=== PATIENT | female | born 1950 | race African-American/Black ===

== ENCOUNTER 2022-06-07 15:34 | Emergency (ER) | payer OTHER ==
--- OUTSIDE RECORDS SUMMARY | 2022-06-07 15:46 | XMS REPORT | Continuity of Care Document ---
:1950 Author Organization [facility] t Address [address] [place] [address] Care Team Providers Name Role Phone TREY RAHMAN Primary Care Physician Unavailable Keshia Chaves Attending Clinician Unavailable SHERICE RODRIGUEZ Attending Clinician Unavailable LAURA MUSTAFA Attending Clinician Unavailable DONG ANTONIO Attending Clinician Unavailable AALIYAH ROGERS Attending Clinician Unavailable LANDRY BENEDICT Attending Clinician Unavailable JAMES MEI Attending Clinician Unavailable Rohit Freitas MA Attending Clinician Unavailable Saravanan HOSKINS, Rafy Piña Attending Clinician [phone] Elena Gregg MA Attending Clinician Unavailable Ghazal De Jesus MD Attending Clinician [phone] Danita Sousa MD Attending Clinician Doctor Unassigned, [place] Attending Clinician Unavailable Dwain Chang MA Attending Clinician Unavailable Aster HOSKINS, Trey Attending Clinician Olvier Méndez MD Attending Clinician Liv HOSKINS, Patria Attending Clinician [phone] Monty Bender Attending Clinician TERRANCE SPENCER Attending Clinician Unavailable Terrance Spencer DO Attending Clinician Yulia HOSKINS, Monty Cerrato Attending Clinician Sergio Boone MD Attending Clinician Noemi Miller MA Attending Clinician Unavailable Lacey HATHAWAY, Trey Attending Clinician VALENTE DIEGO Attending Clinician Unavailable Gladys Henderson MA Attending Clinician Unavailable ISAEL MERA Attending Clinician Unavailable Bee Patton MA Attending Clinician Unavailable Evy Clements Attending Clinician Unavailable JERE_KATHY_NIA Attending Clinician Unavailable TREY RAHMAN Attending Clinician Unavailable Minerva Terry MA Attending Clinician Unavailable Valente Diego DO Attending Clinician Nigel HOSKINS Sendchely K.H. Attending Clinician Sherice Rodriguez MD Attending Clinician Ambrocio Nunez CRNA Attending Clinician Only, [facility] Test Attending Clinician Unavailable Gramm PAPER SLITTER Marley A Attending Clinician Unavailable MONTY BENDER Attending Clinician Unavailable SUDHIR LANE Attending Clinician Unavailable SUDHIR LANE Attending Clinician Unavailable Outpatient, Pm/Icd Check Attending Clinician Unavailable JOHN JENNINGS Attending Clinician Unavailable Lab, Ang - Db Attending Clinician Unavailable NIGEL SENDCHELY K.H. Attending Clinician Unavailable 2, [facility] Lab Attending Clinician Unavailable Dong Antonio MD Attending Clinician Isael Mera MD Attending Clinician Sudhir Lane MD Attending Clinician Maura Roach MA Attending Clinician Unavailable Shi Poretr MA Attending Clinician Unavailable Lab, Adc Fam Pob I Attending Clinician Unavailable ARTEMIO HAYNES Attending Clinician Unavailable NITHYA AYON Attending Clinician Unavailable TOR MARTINES Attending Clinician Unavailable MARIELA CONSTANTINO Attending Clinician Unavailable Elicia Clements LMSW Attending Clinician SOUTH, DEVICE Attending Clinician Unavailable [facility] Attending Clinician Unavailable Nithya Macias Attending Clinician HEMATLANDRY CASEY Attending Clinician Unavailable AALIYAH ROGERS M.D. Attending Clinician Unavailable JOSE MURO Attending Clinician Unavailable SE, VENOUS Attending Clinician Unavailable SUSHANT VAUGHN M.D. Attending Clinician Unavailable AMBRAMILA Attending Clinician Unavailable JOSY MANZANARES M.D. Attending Clinician Unavailable SE, ECHO Attending Clinician Unavailable SE, NUCLEAR Attending Clinician Unavailable Therapist, Adc Occup Attending Clinician Unavailable SERGIO BOONE Attending Clinician Unavailable Tamanna Kern OT Attending Clinician Unavailable SALLIE BECK M.D. Attending Clinician Unavailable SHERICE RODRIGUEZ Admitting Clinician Unavailable DONG ANTONIO Admitting Clinician Unavailable TERRANCE SPENCER Admitting Clinician Unavailable MD MONTY BENDER Admitting Clinician Unavailable JERE_KATHY_NIA Admitting Clinician Unavailable Sherice Rodriguez MD Admitting Clinician MONTY BENDER Admitting Clinician Unavailable THOMAS MANNING Admitting Clinician Unavailable Dong Antonio MD Admitting Clinician JOSE MURO Admitting Clinician Unavailable STORMY Admitting Clinician Unavailable Payers Payer Name Policy Type Policy Number Effective Date Expiration Date S ource [facility] [id number] 2020 2020 STARPLUS OON 00:00:00 00:00:00 EXCEPT [facility] [id number] 2021 HMO 00:00:00 [facility] [place] STAR [id number] 2020 PLUS 00:00:00 [facility] WELLMED [id number] 2022 00:00:00 [facility] [id number] 2020 DUAL COMPLETE 00:00:00 CHOICE [place]ICA[place] [id number] 2014 00:00:00 MEDICARE PART A [id number] 2013 \\T\\ B 00:00:00 Problems Condition Condition Condition Status Onset Resolution Last Treating Co mments Source Name Details Category Date Date Treatment Clinician Date Chronic Chronic Disease Active Methodi musculoske musculoske 09-08 letal pain letal pain 00:00: Ho spita 00 l JUAREZ (acute JUAREZ (acute Disease Active M ethodi kidney kidney 09-08 injury) injury) 00:00: Hospita 00 l Bilateral Bilateral Disease Active Met hodi foot pain foot pain 09-08 00:00: Hospita 00 l Fracture Fracture Disease Active Metho di of left of left 09-08 inferior inferior 00:00: Hospit a pubic pubic 00 l ramus with ramus with routine routine healing healing Gait Gait Disease Active Methodi disturbanc disturbanc 09-08 e e 00:00: Hospita 00 l Gastritis Gastritis Disease Active Met hodi with with 09-08 hemorrhage hemorrhage 00:00: Ho spita 00 l Hepatitis Hepatitis Disease Active Met hodi C antibody C antibody 09-08 test test 00:00: Hospita positive positive 00 l Intertrigo Intertrigo Disease Active M ethodi 09-08 00:00: Hospita 00 l Left leg Left leg Disease Active Metho di pain pain 09-08 00:00: Hospita 00 l Osteoarthr Osteoarthr Disease Active M ethodi itis of itis of 09-08 both knees both knees 00:00: Ho spita 00 l Palpitatio Palpitatio Disease Active M ethodi ns ns 09-08 00:00: Hospita 00 l 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 09-08 00:00: Hospita 00 l UTI UTI Disease Active Methodi symptoms symptoms 09-08 00:00: Hospita 00 l Abnormal Abnormal Disease Active 2020-04 Metho di SPEP SPEP 04-30 00:00: Hospita 00 l Coccygodyn Coccygodyn Disease Active U nivers ia ia 7-25 ity of 00:00: [place] 00 [facility] Tinea Tinea Disease Active Univers pedis of pedis of 7-25 [place] of left foot [place] Weight Weight Disease Active Methodi loss loss 7-25 st 00:00: Hospita 00 l Detrusor Detrusor Disease Active Metho di instabilit instabilit 6-30 st y of y of 00:00: Hospita bladder bladder 00 l Osteopenia Osteopenia Disease Active M ethodi 5-26 st 00:00: Hospita 00 l Depression Depression Disease Active M ethodi 3-22 st 00:00: Hospita 00 l Acquired Acquired Disease Active Metho di lymphedema lymphedema 2-24 st of lower of lower 00:00: Hospit a extremity extremity 00 l Open wound Open wound Disease Active M ethodi of left of left 2-24 st lower leg lower leg 00:00: [facility] 00 l Impaired Impaired Disease Active 2019-04 Metho di fasting fasting 2-17 st glucose glucose 00:00: Hospita 00 l Iron Iron Disease Active 2019-04 Methodi deficiency deficiency 2-17 st 00:00: Hospita 00 l Chronic Chronic Disease Active 2019-04 Overview: Univ ers GERD GERD 1-24 Formattin ity of 00:00: g of this [place] 00 note Medical might be Branch different from the original. Added automatic ally from request for surgery [id number] Other Other Disease Active 2019-04 Overview: Univer s constipati constipati -24 Formattin ity of on on 00:00: g of this [place] 00 note Medical might be Branch different from the original. Added automatic ally from request for surgery [id number] Personal Personal Disease Active 2019-04 Overview: Un shaila history of history of -24 Formattin ity of colonic colonic 00:00: g of this [place] polyps polyps 00 note Medical might be Branch different from the original. Added automatic ally from request for surgery [id number] Dysphagia, Dysphagia, Disease Active 2019-04 Overview : Methodi pharyngoes pharyngoes [address] ophageal ophageal 00:00: g of this Hos kofi phase phase 00 note l might be different from the original. Formattin g of this note might be different from the original. Added automatic ally from request for surgery [id number] matting of this note might be different from the original. Added automatic ally from request for surgery [id number] Iron Iron Disease Active 2019-04 Overview: Method i deficiency deficiency [address] anemia anemia 00:00: g of this Hospita 00 note l might be different from the original. Formattin g of this note might be different from the original. 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 00:00: Hospita without without 00 l tophus tophus Chronic Chronic Disease Active 2019-04 Methodi obstructiv obstruct[address] e e 00:00: Hospita pulmonary pulmonary 00 l disease disease Chronic Chronic Disease Active 2019-04 [facility] heart heart 0-29 Health failure failure 00:00: with with 00 reduced reduced ejection ejection fraction fraction and and diastolic diastolic dysfunctio dysfunctio n n CKD CKD Disease Active 2019-04 UT (chronic (chronic 0-29 Health kidney kidney 00:00: disease) disease) 00 Essential Essential Disease Active 2019-04 UT hypertensi hypertensi 0-29 He alth on on 00:00: 00 Anticoagul Anticoagul Disease Active 2019-04 U T ant ant 0-29 Health long-term long-term 00:00: use use 00 Pacemaker Pacemaker Disease Active 2019-04 UT reprogramm reprogramm 0-29 He alth ing/check ing/check 00:00: 00 Persistent Persistent Disease Active 2019-04 U T atrial atrial 0-29 Health fibrillati fibrillati 00:00: on on 00 Abnormal Abnormal Disease Active 2019-04 Metho di nuclear nuclear 0-29 st stress stress 00:00: Hospita test test 00 l Chronic Chronic Disease Active 2019-04 Methodi venous venous 0-29 st insufficie insufficie 00:00: Ho spita ncy ncy 00 l Dyslipidem Dyslipidem Disease Active 2019-04 M ethodi ia ia 0-29 st 00:00: Hospita 00 l 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 00 Memory Memory Disease Active 2020 Methodi impairment impairment 11-14 st 00:00: Hospita 00 l Chronic Chronic Disease Active 2020- Univers insomnia insomnia 11-12 ity of 00:00: [place] 00 Medical Branch Chronic Chronic Disease Active 2020-0 Univers anemia anemia 11-09 ity of 00:00: [place] 00 [facility] Branch Chronic Chronic Disease Active 2020- Methodi dislocatio dislocatio 11-09 st n of right n of right 00:00: Ho spita shoulder shoulder 00 l Neuropathy Neuropathy Disease Active 2020-0 M ethodi of lower of lower 11-09 st extremity extremity 00:00: [facility]osp [facility] 00 l Tobacco Tobacco Disease Active UT abuse abuse 10-22 Health 00:00: 00 History of History of Disease Active 2019- U T pulmonary pulmonary 2- Heal th embolism embolism 00:00: 00 Sjogren's Sjogren's Disease Active UT syndrome syndrome 204 Health 00:00: 00 Coronary Coronary Disease Active 2020-0 Metho di atheroscle atheroscle 05-13 st rosis rosis 00:00: Hospita 00 l Edema of Edema of Disease Active 2019- Metho di both lower both lower 05-13 extremitie extremitie 00:00: Ho spita s s 00 l Excessive Excessive Disease Active 2019-0 Met hodi anticoagul anticoagul 05-13 st ation ation 00:00: Hospita 00 l Gout Gout Disease Active 2019-0 Methodi 05-13 st 00:00: Hospita 00 l Hyperlipid Hyperlipid Disease Active 2020-0 M ethodi emia emia 05-13 st 00:00: Hospita 00 l Urinary Urinary Disease Active 2020-0 Methodi incontinen incontinen 05-13 st ce ce 00:00: Hospita 00 l Urinary Urinary Disease Active 2020-0 Methodi tract tract 05-13 st infectious infectious 00:00: Ho spita disease disease 00 l Vitamin D Vitamin D Disease Active 2020-0 Met hodi deficiency deficiency 05-13 st 00:00: Hospita 00 l Lower Lower Disease Active 2020-0 Methodi extremity extremity 1 st edema edema 00:00: Hospita 00 l Reduced Reduced Disease Active 2020-0 Univers mobility mobility 1 ity of 00:00: [place] 00 [facility] Branch Dependence Dependence Disease Active M ethodi on on [address] st supplement supplement 00:00: Ho spita al oxygen al oxygen 00 l DM DM Disease Active Methodi (diabetes (diabetes 115 st mellitus) mellitus) 00:00: [facility]osp [facility] type II, type II, 00 l controlled controlled , with , with peripheral peripheral vascular vascular disorder disorder 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, syndrome, 00:00: [facility] lumbar lumbar 00 l region region 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 1-15 st of sacral of sacral 00:00: [facility]osp [facility] region region 00 l Vascular Vascular Disease Active Unive rs insufficie insufficie 8-15 it y of ncy of ncy of 00:00: [place] intestine intestine 00 [facility] nuria Branch Chronic Chronic Disease Active Univers congestive congestive 815 it y of heart heart 00:00: [place] failure failure 00 Medical Branch Congestive Congestive Disease Active M ethodi heart heart 8-15 st failure failure 00:00: Hospita 00 l Hypertensi Hypertensi Disease Active M ethodi ve heart ve heart 8-15 st and and 00:00: Hospita chronic chronic 00 l kidney kidney disease disease with heart with heart failure failure and stage and stage 1 through 1 through stage 4 stage 4 chronic chronic kidney kidney disease, disease, or or unspecifie unspecifie d chronic d chronic kidney kidney disease disease GI bleed GI bleed Disease Active Metho di 05-18 st 00:00: Hospita 00 l Arthritis Arthritis Disease Active 2017-04 Met hodi 06-11 st 00:00: Hospita 00 l Diabetes Diabetes Disease Active 2017-04 Metho di mellitus mellitus 06-11 st 00:00: Hospita 00 l Gastroesop Gastroesop Disease Active 2017-04 M ethodi hageal hageal 06-11 st reflux reflux 00:00: Hospita disease disease 00 l with with ulceration ulceration Kidney Kidney Disease Active 2017-04 Methodi disease disease 06-11 st 00:00: Hospita 00 l 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 00:00: Ho spita swetha swetha 00 l 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 [address] st 00:00: Hospita 00 l Closed Closed Disease Active 2016-04 Methodi displaced displaced 05-19 st fracture fracture 00:00: Hospit a of lateral of lateral 00 l end of end of right right clavicle clavicle with with routine routine healing healing Limb pain Limb pain Disease Active [place] 9-06 Health 00:00: 00 Chronic Chronic Disease Active 2015-04 Methodi atrial atrial 005 st fibrillati fibrillati 00:00: Ho spita on on 00 l Malnutriti Malnutriti Disease Active 2015-04 M ethodi on on 0-03 st compromisi compromisi 00:00: Ho spita ng bodily ng bodily 00 l function function On total On total Disease Active 2015-04 Metho di parenteral parenteral 0 st nutrition nutrition 00:00: Hosp [facility] (TPN) (TPN) 00 l CKD CKD Disease Active Univers (chronic (chronic 01-20 ity of kidney kidney 00:00: [place] disease), disease), 00 Medi nuria stage IV stage IV Branch Respirator Respirator Disease Active M ethodi y y 01-20 st insufficie insufficie 00:00: Ho spita ncy ncy 00 l Post-op Post-op Disease Active Methodi pain pain 01-20 st 00:00: Hospita 00 l Essential Essential Disease Active Met hodi hypertensi hypertensi 01-20 st on on 00:00: Hospita 00 l Hypokalemi Hypokalemi Disease Active M ethodi a a 01-20 st 00:00: Hospita 00 l CKD CKD Disease Active Methodi (chronic (chronic 30 st kidney kidney 00:00: Hospita disease) disease) 00 l Abdominal Abdominal Disease Active Met hodi pain pain 01-20 st 00:00: Hospita 00 l 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 00:00: Hospita thrombosis thrombosis 00 l Cutaneous Cutaneous Disease Active Met hodi candidiasi candidiasi - st s s 00:00: Hospita 00 l Herpes Herpes Disease Active Methodi zoster w/ zoster w/ 08-30 st nervous nervous 00:00: Hospita system system 00 l complicati complicati on on Shortness Shortness Disease Active Met hodi of breath of breath 5-10 st 00:00: Hospita 00 l Hypertensi Hypertensi Disease Active U nivers on on ity of [facility] CKD CKD Problem Active UT (chronic (chronic Physic i kidney kidney ans disease) disease) History of History of Problem Resolve UT congestive congestive d Ph ysici heart heart ans disease disease History of History of Problem Resolve UT Diabetes Diabetes d Physic i mellitus mellitus ans Essential Essential Problem Active UT (primary) (primary) Phys ici hypertensi hypertensi an s on on History of History of Problem Resolve UT Morbid Morbid d Physici obesity obesity ans History of History of Problem Resolve UT Obstructiv Obstructiv d Ph ysici e sleep e sleep ans apnea apnea Sjogrens Sjogrens Problem Active UT syndrome syndrome Physic i ans Cutaneous Cutaneous Problem Active UT candidiasi candidiasi Ph ysici s s ans Herpes Herpes Problem Active UT zoster w/ zoster w/ Phys ici nervous nervous ans system system complicati complicati on on Shortness Shortness Problem Active UT of breath of breath Phys ici ans Limb pain Limb pain Problem Active UT Physici ans Closed Closed Problem Active UT displaced displaced Phys ici fracture fracture ans of lateral of lateral end of end of right right clavicle clavicle with with routine routine healing healing Closed Closed Problem Active UT fracture fracture Physic i of left of left ans inferior inferior pubic pubic ramus with ramus with routine routine healing, healing, subsequent subsequent encounter encounter custodial 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 intermediate Problem Active UT (current) (current) Phys ici use of use of ans anticoagul anticoagul ants ants History of History of Problem Active U T pulmonary pulmonary Phys ici embolism embolism ans Tobacco Tobacco Problem Active UT abuse abuse Physici disorder disorder ans Chronic Chronic Problem Active UT heart heart Physici failure failure ans with with reduced reduced ejection ejection fraction fraction and and diastolic diastolic dysfunctio dysfunctio n n Abnormal Abnormal Problem Active UT nuclear nuclear Physici stress stress ans test test Persistent Persistent Problem Active U T atrial atrial Physici fibrillati fibrillati an s on on Dyslipidem Dyslipidem Problem Active U T ia ia Physici ans Superior Superior Problem Active UT mesenteric mesenteric Ph ysici artery artery ans stenosis stenosis History of History of Problem Resolve UT Chronic Chronic d Physici kidney kidney ans disease, disease, stage III stage III (moderate) (moderate) Chronic Chronic Problem Active UT venous venous Physici insufficie insufficie an s ncy ncy Pacemaker Pacemaker Problem Active UT reprogramm reprogramm Ph ysici ing/check ing/check ans Allergies, Adverse Reactions, Alerts Allergy Allergy Status Severity Reaction(s) Onset Inactive Treating Comm ents Source Name Type Date Date Clinician Robertoduniaclo Allergy Active UT vir to 09-17 [facility] 00:00: e 00 Famciclo Propensi Active Unknown - 2019-04 Uni vers vir ty to See comments 0-21 ity of adverse 00:00: [place] reaction 00 Medical s Branch FAMCICLO DRUG Active Unknown-Cmnt 2019-04 Un shaila VIR INGREDI 0-21 ity of 00:00: [place] 00 [facility] Branch ciproflo DA Active U [facility] xacin 07-09 [facility] 00:00: e 00 [facility] famciclo DA Active U [facility] vir 07-09 [facility] 00:00: e 00 [facility] [place] propafen DA Active U [facility] one 07-09 [facility] 00:00: e 00 [facility] [place] valacycl DA Active U [facility] ovir 07-09 [facility] 00:00: e 00 [facility] Acyclovi Propensi Active Method i r ty to 01-20 st adverse 00:00: Hospita reaction 00 l s to drug Famciclo Propensi Active Method i vir ty to 01-20 st adverse 00:00: Hospita reaction 00 l s to drug Propafen Propensi Active Method i one ty to 01-20 st adverse 00:00: Hospita reaction 00 l s to drug Valacycl Propensi Active Method i ovir ty to 01-20 st adverse 00:00: Hospita reaction 00 l s to drug Ciproflo Propensi Active Other (See Me thodi xacin ty to Comments) 6-09 st adverse 00:00: Hospita reaction 00 l s to drug Propache Propensi Active Other (See 2014-04 Me thodi m ty to Comments) 0-15 st adverse 00:00: Hospita reaction 00 l s to drug Acyclovi Propensi Active Unknown - 2014-04 Uni vers r ty to See comments 0-15 ity of adverse 00:00: [place] reaction 00 Medical s Branch Propache Propensi Active Unknown - 2014-04 Uni vers m ty to See comments 0-15 ity of adverse 00:00: [place] reaction 00 Medical s Branch Valacycl Propensi Active Unknown - 2014-04 Uni vers ovir Hcl ty to See comments 0-15 it y of adverse 00:00: [place] reaction 00 Medical s Branch ACYCLOVI DRUG Active Unknown-Cmnt 2014-04 Un shaila R INGREDI 0-15 ity of 00:00: [place] 00 [facility] Branch PROPACHE DRUG Active Unknown-Cmnt 2014-04 Un shaila M 0-15 ity of 00:00: [place] 00 [facility] VALACYCL DRUG Active Unknown-Cmnt 2014-04 Un shaila OVIR HCL INGREDI 0-15 ity of 00:00: [place] 00 Medical Branch Famvir Allergy Active Rash UT TABS to drug Physici (finding ans ) Social History Social Habit Start Date Stop Date Quantity Comments Source History [facility] o f Alcohol Comment [facility] Branch History of tobacco Smokes tobacco Me [facility] use daily Hospital History [facility] Health Alcohol Std Drinks History [facility] Health Alcohol Binge Alcohol intake 2022-05-09 2022-05-09 Current Druze 00:00:00 00:00:00 non-drinker of Hospital alcohol (finding) Cigarettes smoked 2022-02-02 2022-02-02 [facility] current (pack per 00:00:00 00:00:00 Hospita l ) - Reported Tobacco use and 2022-02-02 2022-02-02 Smokeless Druze exposure 00:00:00 00:00:00 tobacco non-user Hospital Exposure to 2022-01-08 2022-01-18 Not sure University of SARS-CoV-2 (event) 00:00:00 11:36:00 [facility] History [facility] 2020-11-17 2020-11-17 1 [facility] Alcohol Frequency 00:00:00 00:00:00 [birth year] [facility] 00:00:00 00:00:00 Hospital Smoking Status Start Date Stop Date Source Smokes tobacco daily 2022-02-02 00:00:00 [facility] Never smoker [place] [facility] Medications Ordered Filled Start Stop Current Ordering Indication Dosage Frequency Signature Comments Components Source Medication Medication Date Date Medication? Clinician (SIG) Name Name obi Yes [id number] 200mg QD Take 1 Methodi roquine 1-[address] (PLAQUENIL) 00:00: (200 mg Hos kofi 200 mg 00 total) by l tablet mouth daily. aspirin 0 Yes 81mg QD Take 1 Methodi (ECOTRIN) 1-17 tablet (81 st 81 MG 15:22: mg total) Hospita enteric 33 by mouth l coated daily. tablet budesonide 0 Yes .5mg Q.5D Take 0.5 Met hodi (PULMICORT) 1-[address] 0.5 mg/2 mL 15:22: nebulizati Hospita nebulizer 33 on 2 (two) l solution times a day. Rinse mouth after each use. albuterol 2022-0 Yes 2.5mg Q.5D Take 2.5 Met hodi (ACCUNEB) 1-[address] 2.5 mg /3 15:22: nebulizati Ho spita mL (0.083 33 on 2 (two) l %) times a nebulizer day as solution needed. magnesium 0 Yes 400mg QD Take 1 Metho di oxide 1-[address] (MAG-OX) 15:22: (400 mg Hospit a 400 mg 33 total) by l (241.3 mg mouth magnesium) daily. tablet BUMETanide 0 Yes 1mg QD Take 1 Metho di (BUMEX) 1 1-17 tablet (1 st MG tablet 15:22: mg total) Hos kofi 33 by mouth l daily. TURMERIC 0 Yes 1000{ca Take 1,000 Methodi ORAL 1-17 psule} capsules st 15:22: by mouth. Hospita 33 l diclofenac 2022-0 Yes [id number] Q.25D Apply Methodi (VOLTAREN) 1-[address] 1 % gel 00:00: 4 (four) Hospit a 00 times a l day. pantoprazol 2021-04 No 40mg QD Take 40 mg Methodi e 2-30 12-[address] (PROTONIX) 11:23: 00:00 daily. Hosp [facility]harat 40 MG EC 43 :00 l tablet hydrALAZINE 2021-04- No 25mg Q8H Take 25 mg Methodi (APRESOLINE 2-30 12-[address] ) 25 MG 11:23: 00:00 every 8 Hospit a tablet 43 :00 (eight) l hours. pantoprazol 2021-04 Yes 40mg QD Take 1 Meth dionna e 2-30 tablet (40 st (PROTONIX) 00:00: mg total) Ho spita 40 MG EC 00 by mouth l tablet daily. hydrALAZINE 2021-04 Yes 25mg Q.[id number] Take 1 [facility] (APRESOLINE 2-30 [id number] tablet (25 st ) 25 MG 00:00: 3D mg total) Hospi ta tablet 00 by mouth 3 l (three) times a day. simvastatin 2021-04 Yes 10mg QD Take 1 [facility] (ZOCOR) 10 2-30 tablet (10 st MG tablet 00:00: mg total) [facility] 00 by mouth l every evening. metoprolol 2021-04 Yes 25mg QD Take 1 [facility] di succinate 2-30 tablet (25 st XL 00:00: mg total) Hospita (TOPROL-XL) 00 by mouth l 25 mg 24 hr daily. tablet montelukast 2021-04 Yes 10mg QD Take 1 [facility] (SINGULAIR) 2-30 tablet (10 st 10 mg 00:00: mg total) Hospita tablet 00 by mouth l nightly. allopurinoL 2021-04 Yes 100mg QD Take 1 [facility] (ZYLOPRIM) 2-[address] 100 MG 00:00: (100 mg Hospita tablet 00 total) by l mouth daily. hydroxychlo 2021-04 No 200mg QD Take 1 [facility] roquine 2-22 01-[address] (PLAQUENIL) 00:00: 00:00 (200 mg [facility] 200 mg 00 :00 total) by l tablet mouth daily. ergocalcife 2021-04 Yes [id number] Q30D Take 1 [facility] rol 2-[address] (VITAMIN 00:00: (50,000 Hospit a D2) 50,000 00 Units l unit total) by capsule mouth every 30 (thirty) days. DOSING DECREASE. hydroxychlo 2021-04 No 200mg QD Take 1 [facility] roquine 1-26 12-[address] (PLAQUENIL) 00:00: 00:00 (200 mg [facility] 200 mg 00 :00 total) by l tablet mouth daily. donepeziL 2021-04 Yes [id number] 10mg QD Take 1 [facility] (ARICEPT) 104 03 tablet (10 st 10 MG 00:00: mg total) Hospita tablet 00 by mouth l nightly. montelukast 2021-04 No 10mg QD Take 1 [facility] (SINGULAIR) 04-24 12-30 tablet (10 s t 10 mg 00:00: 00:00 mg total) Hospit a tablet 00 :00 by mouth l nightly. metoprolol 2021-04 No 25mg QD Take 1 Meth dionna succinate 04-24 12-30 tablet (25 st XL 00:00: 00:00 mg total) Hospita (TOPROL-XL) 00 :00 by mouth l 25 mg 24 hr daily. tablet sertraline 2021-04 No 25mg QD Take 25 mg [facility] (ZOLOFT) 25 0-13 10-[address] MG tablet 14:25: 00:00 daily. Hospi ta 14 :00 l tiotropium 2021-04- No 1{capsu QD Place 1 [facility] (SPIRIVA) 0-13 10-13 le} capsule st 18 mcg per 14:25: 00:00 into Hospit a inhalation 09 :00 inhaler l capsule and inhale daily. methylPREDN 2021-04 Yes [facility] ISolone 0-04 st (MEDROL 00:00: Hospita DOSEPAK) 4 00 l mg tablet methocarbam 2021- No [id number] 500mg Take 1 [facility] oL 500 mg 01-18-04 tablet by ity of tablet 00:00: 04:59 mouth in [place] 00 :00 the Medical morning Branch and 1 tablet at noon and 1 tablet in the evening. Do all this for 5 days. TRAZODONE Yes [id number] TAKE 1 U nivers 100 mg 9-21 TABLET ity of tablet 00:00: (100 MG 00 TOTAL) BY Medical MOUTH Branch NIGHTLY. TRAZODONE Yes [id number] TAKE 1 U nivers 100 mg 9-21 TABLET ity of tablet 00:00: (100 MG 00 TOTAL) BY Medical MOUTH Branch NIGHTLY. TRAZODONE Yes [id number] TAKE 1 U nivers 100 mg 9-21 TABLET ity of tablet 00:00: (100 MG 00 TOTAL) BY Medical MOUTH Branch NIGHTLY. TRAZODONE 0 Yes [id number] TAKE 1 U nivers 100 mg 9-21 TABLET ity of tablet 00:00: (100 MG 00 TOTAL) BY Medical MOUTH Branch NIGHTLY. methocarbam 0 Yes 500mg Q.5D Take 1 [facility] oL 9-[address] (ROBAXIN) 00:00: (500 mg Hospi ta 500 MG 00 total) by l tablet mouth 2 (two) times a day. HYDROcodone 0 Yes 1{tbl} Q6H Take 1 [facility] -acetaminop 9-[address] hen (NORCO) 00:00: mouth Hospi ta 10-325 mg 00 every 6 l per tablet (six) hours as needed. montelukast 2- No 10mg QD Take 1 [facility] (SINGULAIR) 9-20 11-02 tablet (10 s t 10 mg 00:00: 00:00 mg total) Hospit a tablet 00 :00 by mouth l nightly. ergocalcife Yes [id number] TAKE 1 [facility] rol, 9-07 CAPSULE ity of vitamin d2, 00:00: (50,000 [facility] as (VITAMIN 00 UNITS Medical D2) 1,250 TOTAL) BY Branc h mcg (50,000 MOUTH unit) EVERY 30 capsule (THIRTY) DAYS. DOSING DECREASE. ergocalcife 0 Yes [id number] TAKE 1 [facility] rol, 9-07 CAPSULE ity of vitamin d2, 00:00: (50,000 [facility] as (VITAMIN 00 UNITS Medical D2) 1,250 TOTAL) BY Branc h mcg (50,000 MOUTH unit) EVERY 30 capsule (THIRTY) DAYS. DOSING DECREASE. ergocalcife 2021-0 Yes [id number] TAKE 1 [facility] rol, 9-07 CAPSULE ity of vitamin d2, 00:00: (50,000 [facility] as (VITAMIN 00 UNITS Medical D2) 1,250 TOTAL) BY Branc h mcg (50,000 MOUTH unit) EVERY 30 capsule (THIRTY) DAYS. DOSING DECREASE. ergocalcife 0 Yes [id number] TAKE 1 [facility] rol, 9-07 CAPSULE ity of vitamin d2, 00:00: (50,000 [facility] as (VITAMIN 00 UNITS Medical D2) 1,250 TOTAL) BY Branc h mcg (50,000 MOUTH unit) EVERY 30 capsule (THIRTY) DAYS. DOSING DECREASE. ergocalcife 0 Yes [id number] TAKE 1 [facility] rol, 9- CAPSULE ity of vitamin d2, 00:00: (50,000 [facility] as (VITAMIN 00 UNITS Medical D2) 1,250 TOTAL) BY Branc h mcg (50,000 MOUTH unit) EVERY 30 capsule (THIRTY) DAYS. DOSING DECREASE. ergocalcife Yes [id number] TAKE 1 [facility] rol, 9 CAPSULE ity of vitamin d2, 00:00: (50,000 [facility] as (VITAMIN 00 UNITS Medical D2) 1,250 TOTAL) BY Branc h mcg (50,000 MOUTH unit) EVERY 30 capsule (THIRTY) DAYS. DOSING DECREASE. ferrous Yes [id number] 1{capsu QD Take 1 [facility] fumarate-b1 8-25 le} capsule by st 2-vitamic 00:00: mouth Hospita C-folic 00 daily l acid before (Ferocon) breakfast. 110-0.5 mg capsule ergocalcife 2021- No [id number] Q30D Take 1 [facility] rol 8-25 12-[address] (VITAMIN 00:00: 00:00 (50,000 Hospi ta D2) 50,000 00 :00 Units l unit total) by capsule mouth every 30 (thirty) days. DOSING DECREASE. ergocalcife 2021- No [id number] Q30D Take 1 [facility] rol 8-24 08-[address] (VITAMIN 00:00: 00:00 (50,000 Hospi ta D2) 50,000 00 :00 Units l unit total) by capsule mouth every 30 (thirty) days. DOSING DECREASE. ferrous 2021- No [id number] 1{capsu QD Take 1 [facility] fumarate-b1 8-24 08-25 le} capsule by s t 2-vitamic 00:00: 00:00 mouth Hospit a C-folic 00 :00 daily l acid before (Ferocon) breakfast. 110-0.5 mg capsule zolpidem Yes 10mg QD Take 1 [facility] (AMBIEN) 10 8-15 tablet (10 st mg tablet 00:00: mg total) [facility] 00 by mouth l nightly as needed. traZODone 2021- No 100mg QD Take 100 [facility] (DESYREL) 11-23 08-[address] 100 MG 10:39: 00:00 mouth Hospita tablet 21 :00 nightly. l metoprolol 2021- No 25mg QD Take 25 mg [facility] succinate 11-[address] XL 10:39: 00:00 daily. Hospita (TOPROL-XL) 21 :00 l 25 mg 24 hr tablet traZODone Yes 100mg QD Take 1 Metho di (DESYREL) 11-[address] 100 MG 00:00: (100 mg Hospita tablet 00 total) by l mouth nightly. metoprolol 2021- No 25mg QD Take 1 [facility]na succinate 11-23- tablet (25 st XL 00:00: 00:00 mg total) Hospita (TOPROL-XL) 00 :00 by mouth l 25 mg 24 hr daily. tablet hydrOXYchlo 2021- No 200mg QD Take 1 [facility] roQUINE 10-27 10-[address] (PlaqueniL) 00:00: 04:59 (200 mg [facility] 200 mg 00 :00 total) by l tablet mouth daily for 90 days. aspirin 81 2021-0 Yes [id number] 81mg Take 1 [facility] mg EC 6-21 tablet by ity of tablet 00:00: mouth [place] 00 daily. Medical Branch aspirin 81 2021-0 Yes [id number] 81mg Take 1 [facility] mg EC 6-21 tablet by ity of tablet 00:00: mouth [place] 00 daily. Medical Branch aspirin 81 2021-0 Yes [id number] 81mg Take 1 [facility] mg EC 6-21 tablet by ity of tablet 00:00: mouth [place] 00 daily. Medical Branch aspirin 81 2021-0 Yes [id number] 81mg Take 1 [facility] mg EC 6-21 tablet by ity of tablet 00:00: mouth [place] 00 daily. Medical Branch aspirin 81 2021-0 Yes [id number] 81mg Take 1 [facility] mg EC 6-21 tablet by ity of tablet 00:00: mouth [place] 00 daily. [facility] Branch aspirin 81 2021-0 Yes [id number] 81mg Take 1 [facility] mg EC 6-21 tablet by ity of tablet 00:00: mouth [place] 00 daily. Medical Branch aspirin 81 2021-0 Yes [id number] 81mg Take 1 [facility] mg EC 6-21 tablet by ity of tablet 00:00: mouth [place] 00 daily. Medical Branch aspirin 81 2021-0 Yes [id number] 81mg Take 1 [facility] mg EC 6-21 tablet by ity of tablet 00:00: mouth [place] 00 daily. Medical Branch metoprolol 2021-0 Yes [id number] TAKE 1 U nivers succinate 6-13 TABLET BY ity o f XL 25 mg 24 00:00: MOUTH 1 [facility] as hr tablet 00 TIME EACH Medic al DAY Branch hydrOXYchlo 2021-0 Yes [id number] 200mg Take 1 [facility] roQUINE 200 6-13 tablet by ity of mg tablet 00:00: mouth 2 (two) Medical times Branch daily. metoprolol 2021-0 Yes [id number] TAKE 1 U nivers succinate 6-13 TABLET BY ity o f XL 25 mg 24 00:00: MOUTH 1 [facility] as hr tablet 00 TIME EACH Medic al DAY Branch hydrOXYchlo 2021-0 Yes [id number] 200mg Take 1 [facility] roQUINE 200 6-13 tablet by ity of mg tablet 00:00: mouth 2 (two) Medical times Branch daily. metoprolol 2021-0 Yes [id number] TAKE 1 U nivers succinate 6-13 TABLET BY ity o f XL 25 mg 24 00:00: MOUTH 1 [facility]hav[facility] as hr tablet 00 TIME EACH Medic al DAY Branch hydrOXYchlo 2021-0 Yes [id number] 200mg Take 1 [facility] roQUINE 200 6-13 tablet by ity of mg tablet 00:00: mouth 2 (two) Medical times Branch daily. metoprolol 2021-0 Yes [id number] TAKE 1 U nivers succinate 6-13 TABLET BY ity o f XL 25 mg 24 00:00: MOUTH 1 [facility] as hr tablet 00 TIME EACH Medic al DAY Branch hydrOXYchlo 2021-0 Yes [id number] 200mg Take 1 [facility] roQUINE 200 6-13 tablet by ity of mg tablet 00:00: mouth 2 (two) Medical times Branch daily. metoprolol 2021-0 Yes [id number] TAKE 1 U nivers succinate 6-13 TABLET BY ity o f XL 25 mg 24 00:00: MOUTH 1 [facility] as hr tablet 00 TIME EACH Medic al DAY Branch hydrOXYchlo 2021-0 Yes [id number] 200mg Take 1 [facility] roQUINE 200 6-13 tablet by ity of mg tablet 00:00: mouth 2 [place] (two) Medical times Branch daily. metoprolol 2021-0 Yes [id number] TAKE 1 U nivers succinate 6-13 TABLET BY ity o f XL 25 mg 24 00:00: MOUTH 1 [facility] as hr tablet 00 TIME EACH Medic al DAY Branch hydrOXYchlo 0 Yes [id number] 200mg Take 1 [facility] roQUINE 200 6-13 tablet by ity of mg tablet 00:00: mouth 2 [place] (two) Medical times Branch daily. metoprolol Yes [id number] TAKE 1 U nivers succinate 6-13 TABLET BY ity o f XL 25 mg 24 00:00: MOUTH 1 [facility]hav[facility] as hr tablet 00 TIME EACH Medic al DAY Branch hydrOXYchlo 0 Yes [id number] 200mg Take 1 [facility] roQUINE 200 6-13 tablet by ity of mg tablet 00:00: mouth 2 [place] (two) Medical times Branch daily. metoprolol Yes [id number] TAKE 1 U nivers succinate 6-13 TABLET BY ity o f XL 25 mg 24 00:00: MOUTH 1 [facility] as hr tablet 00 TIME EACH Medic al DAY Branch hydrOXYchlo 0 Yes [id number] 200mg Take 1 [facility] roQUINE 200 6-13 tablet by ity of mg tablet 00:00: mouth 2 [place] (two) Medical times Branch daily. simvastatin 2021- No 10mg QD Take 10 mg [facility] (ZOCOR) 10 5-25 05-[address] MG tablet 21:24: 00:00 nightly. [facility] 23 :00 l allopurinoL 2021- No TAKE 1 [facility] (ZYLOPRIM) 5-25 12-[address] 100 MG 00:00: 00:00 MOUTH Hospita tablet 00 :00 EVERY DAY l simvastatin 2021-2021- No TAKE 1 [facility] (ZOCOR) 10 5-25 12-[address] MG tablet 00:00: 00:00 MOUTH Hospit a 00 :00 EVERY l EVENING GABAPENTIN 2021-2021- No Take by Met hodi ORAL 09-13 05-[address] 07:45: 00:00 Hospita 46 :00 l gabapentin 2021-0 Yes 300mg Q.5D Take 1 Meth dionna (NEURONTIN) [address] 300 mg 00:00: (300 mg Hospita capsule 00 total) by l mouth 2 (two) times a day. spironolact 2021- Yes [id number] 50mg QD Take 1 [facility] one -24 tablet (50 st (ALDACTONE) 00:00: mg total) H ospita 50 MG 00 by mouth l tablet daily. cyclobenzap 2021- No [id number] 5mg Q.5D Take 1 [facility] rine - 10-13 tablet (5 st (FLEXERIL) 00:00: 00:00 mg total) H ospita 5 mg tablet 00 :00 by mouth 2 l (two) times a day as needed. ergocalcife 2021- No [id number] Q30D Take 1 [facility] rol 09-[address] (VITAMIN 00:00: 00:00 (50,000 Hospi ta D2) 50,000 00 :00 Units l unit total) by capsule mouth every 30 (thirty) days. DOSING DECREASE. nitrofurant 2021- No [id number] 100mg QD Take 1 [facility] oin, 09-[address] macrocrysta 00:00: 04:59 (100 mg Ho spita l-monohydra 00 :00 total) by l te, mouth (Macrobid) daily for 100 MG 7 days. capsule ergocalcife 0 2021- No [id number] Q7D Take Met [facility]odi rol - 05-19 50,[address] (ERGOCALCIF 11:35: 00:00 Units by H ospita CARLEE) 36 :00 mouth once l 50,000 unit a week. capsule cyclobenzap 0 2021- No 5mg Q.5D Take 5 mg [facility] rine -19 05-[address] (FLEXERIL) 11:35: 00:00 (two) Hospi ta 5 mg tablet 36 :00 times a l day. nystatin 2021- No 1{appli Q.5D Apply 1 [facility] (MYCOSTATIN 09-08 cation} applicatio st ) 100,000 11:35: 00:00 n Hospita unit/gram 36 :00 topically l powder 2 (two) times a day. 60 grams two times day to buttock area for skin breakdown tiotropium 2021- No 1{capsu QD Place 1 [facility] (SPIRIVA) 09-08 le} capsule st 18 mcg per 11:30: 00:00 into Hospit a inhalation 28 :00 inhaler l capsule and inhale once daily. nicotine 2021- No Q2H every 2 Metho di polacrilex 09-08 (two) st (NICORETTE) 11:30: 00:00 hours. Hos [facility] 4 MG gum 14 :00 l montelukast 2021- No 10mg QD Take 10 mg [facility] (SINGULAIR) 09-[address] 10 mg 11:30: 00:00 every Hospita tablet 11 :00 morning. l blood-gluco 2021- No OneTouch M ethodi se meter 09-[address] (OneTouch 11:29: 00:00 Meter kit Ho spita Ultra2 31 :00 l Meter) kit bimatoprost 2021- No 1[drp] Q.5D Administer [facility] (LUMIGAN) 09-[address] 0.01 % 11:29: 00:00 both eyes Hospi ta ophthalmic 12 :00 2 (two) l drops times a day. apixaban 2021- No 5mg Q.5D Take 5 mg [facility] (ELIQUIS) 5 09-08 by mouth 2 s t mg tablet 11:29: 00:00 (two) Hospit a 04 :00 times a l day. albuterol 2021- No 2{puff} Q6H Inhale 2 [facility] (PROAIR 09-[address] HFA,PROVENT 11:28: 00:00 every 6 Ho spita [place] 34 :00 (six) l HFA,VENTOLI hours as N HFA) 90 needed for mcg/actuati wheezing. on inhaler azelastine Yes [id number] 1{spray Q.5D 1 spray [facility] (ASTELIN) 09-08 } into each st 137 mcg 00:00: nostril 2 Hospi ta (0.1 %) 00 (two) l nasal spray times a day. Use in each nostril as directed isosorbide Yes [id number] 60mg QD Take 1 [facility] mononitrate 09-08 tablet (60 st (IMDUR) 60 00:00: mg total) Ho spita MG 24 hr 00 by mouth l tablet daily. donepeziL 2021- No [id number] 10mg QD Take 1 [facility] (ARICEPT) 09-08 1104 03 tablet (10 st 10 MG 00:00: 00:00 mg total) Hospit a tablet 00 :00 by mouth l nightly. nystatin 2021- No [id number] 1{appli Q.5D Apply 1 [facility] (MYCOSTATIN 09-08 cation} applicatio st ) 100,000 00:00: 00:00 n Hospita unit/gram 00 :00 topically l powder 2 (two) times a day. Apply to affected skin benzonatate 2021- No [id number] 100mg Q.5D Take 1 [facility] (TESSALON) 09-[address] 100 MG 00:00: 00:00 (100 mg Hospita capsule 00 :00 total) by l mouth 2 (two) times a day as needed for cough. ferrous 2021- No [id number] TAKE 1 [facility] sulfate 09-[address] (iron) 325 00:00: 00:00 MOUTH 2 Hos [facility] (65 FE) MG 00 :00 TIMES l tablet DAILY WITH FOOD cyclobenzap 2021- No [id number] 5mg Q.5D Take 1 [facility] rine 09-08 05-24 tablet (5 st (FLEXERIL) 00:00: 00:00 mg total) H ospita 5 mg tablet 00 :00 by mouth 2 l (two) times a day. ergocalcife 2021- No [id number] Q7D Take 1 [facility] rol 09-[address] (VITAMIN 00:00: 00:00 (50,000 Hospi ta D2) 50,000 00 :00 Units l unit total) by capsule mouth once a week. febuxostat 2021- No [id number] 80mg QD Take 1 [facility] (ULORIC) 80 09-08-24 tablet (80 s t mg tablet 00:00: 00:00 mg total) Ho spita 00 :00 by mouth l daily. spironolact 2021- No [id number] 50mg QD Take 1 [facility] one 09-0824 tablet (50 st (ALDACTONE) 00:00: 00:00 mg total) Hospita 50 MG 00 :00 by mouth l tablet daily. doxycycline 2021- No [id number] 100mg Q.5D Take 1 [facility] (VIBRAMYCIN 09-[address] ) 100 MG 00:00: 00:00 (100 mg Hospi ta capsule 00 :00 total) by l mouth 2 (two) times a day for 10 days. iron 325 mg 2021- No TAKE 1 Met hodi (65 mg 09-[address] iron) 00:00: 00:00 MOUTH 2 Hospita tablet 00 :00 TIMES l DAILY WITH FOOD spironolact 2021- No Metho di one 08-29- st (ALDACTONE) 00:00: 00:00 Hospi ta 50 MG 00 :00 l tablet febuxostat 2021- No 80mg QD Take 80 mg [facility] (ULORIC) 80 -28 04-[address] mg tablet 11:47: 00:00 nightly. Hos [facility] 11 :00 l febuxostat 2021- No TAKE 1 Meth dionna (ULORIC) 80 -28 05-[address] mg tablet 00:00: 00:00 MOUTH ONCE H ospita 00 :00 DAILY l hydrOXYchlo 2021- No TAKE 1 Met hodi roQUINE 4-25 07-[address] (PLAQUENIL) 00:00: 00:00 MOUTH 2 Ho spita 200 mg 00 :00 TIMES l tablet DAILY WITH FOOD hydrOXYchlo 2021- No [id number] 200mg Q.5D Take 1 [facility] roQUINE 4-25 04-[address] (PLAQUENIL) 00:00: 00:00 (200 mg Ho spita 200 mg 00 :00 total) by l tablet mouth 2 (two) times a day. montelukast Yes [id number] TAKE 1 [facility] 10 mg 4-14 TABLET BY ity of tablet 00:00: MOUTH 1 TIME EACH Medical DAY Branch montelukast 0 Yes [id number] TAKE 1 [facility] 10 mg 4-14 TABLET BY ity of tablet 00:00: MOUTH TIME EACH Medical DAY Branch montelukast 0 Yes [id number] TAKE 1 [facility] 10 mg 4-14 TABLET BY ity of tablet 00:00: MOUTH TIME EACH Medical DAY Branch montelukast 0 Yes [id number] TAKE 1 [facility] 10 mg 4-14 TABLET BY ity of tablet 00:00: MOUTH TIME EACH Medical DAY Branch montelukast 0 Yes [id number] TAKE 1 [facility] 10 mg 4-14 TABLET BY ity of tablet 00:00: MOUTH TIME EACH Medical DAY Branch montelukast 0 Yes [id number] TAKE 1 [facility] 10 mg 4-14 TABLET BY ity of tablet 00:00: MOUTH TIME EACH Medical DAY Branch montelukast 0 Yes [id number] TAKE 1 [facility] 10 mg 4-14 TABLET BY ity of tablet 00:00: MOUTH TIME EACH Medical DAY Branch montelukast 0 Yes [id number] TAKE 1 [facility] 10 mg 4-14 TABLET BY ity of tablet 00:00: MOUTH TIME EACH Medical DAY Branch ALLOPURINOL 0 Yes [id number] TAKE 1 [facility] 100 mg 4-12 TABLET BY ity of tablet 00:00: MOUTH EVERY DAY Medical Branch ALLOPURINOL 0 Yes [id number] TAKE 1 [facility] 100 mg 4-12 TABLET BY ity of tablet 00:00: MOUTH EVERY DAY Medical Branch ALLOPURINOL 2021-0 Yes [id number] TAKE 1 [facility] 100 mg 4-12 TABLET BY ity of tablet 00:00: MOUTH EVERY DAY Medical Branch ALLOPURINOL Yes [id number] TAKE 1 [facility] 100 mg 4-12 TABLET BY ity of tablet 00:00: MOUTH [place] 00 EVERY DAY Medical Branch ALLOPURINOL 0 Yes [id number] TAKE 1 [facility] 100 mg 4-12 TABLET BY ity of tablet 00:00: MOUTH [place] 00 EVERY DAY Medical Branch ALLOPURINOL 0 Yes [id number] TAKE 1 [facility] 100 mg 4-12 TABLET BY ity of tablet 00:00: MOUTH [place] EVERY DAY Medical Branch ALLOPURINOL 0 Yes [id number] TAKE 1 [facility] 100 mg 4-12 TABLET BY ity of tablet 00:00: MOUTH [place] 00 EVERY DAY Medical Branch ALLOPURINOL 0 Yes [id number] TAKE 1 [facility] 100 mg 4-12 TABLET BY ity of tablet 00:00: MOUTH [place] EVERY DAY Medical Branch allopurinoL 2021- No 100mg QD Take 100 [facility] (ZYLOPRIM) 08-02 05-[address] 100 MG 00:00: 00:00 mouth Hospita tablet 00 :00 daily. l isosorbide 2021- No Method i mononitrate 08-02- st (IMDUR) 60 00:00: 00:00 Hospit a MG 24 hr 00 :00 l tablet donepeziL 2021- No [facility] (ARICEPT) 07-26- st 10 MG 00:00: 00:00 Hospita tablet 00 :00 l pantoprazol Yes [id number] 40mg Take 1 Univers e 40 mg EC 3-17 tablet by ity of tablet 00:00: mouth [place] (two) Medical times [place] daily. sodium,pota Yes 117mL Take 117 U nivers ssium,mag 3-17 mL by ity of sulfates 00:00: mouth [place] 17.5-3.13-1 00 SEE-INSTRU Me dical .6 gram CTIONS. Branch Take as directed pantoprazol Yes [id number] 40mg Take 1 [facility] e 40 mg EC 3-17 tablet by ity of tablet 00:00: mouth [place] (two) Medical times [place] daily. sodium,pota 0 Yes 117mL Take 117 U nivers ssium,mag 3-17 mL by ity of sulfates 00:00: mouth [place] 17.5-3.13-1 00 SEE-INSTRU Me dical .6 gram CTIONS. Branch Take as directed pantoprazol 2021-0 Yes [id number] 40mg Take 1 [facility] e 40 mg EC 3-17 tablet by ity of tablet 00:00: mouth 2 (two) Medical times Branch daily. sodium,pota 2021-0 Yes 117mL Take 117 U nivers ssium,mag 3-17 mL by ity of sulfates 00:00: mouth [place] 17.5-3.13-1 00 SEE-INSTRU Me dical .6 gram CTIONS. Branch Take as directed pantoprazol 2021-0 Yes [id number] 40mg Take 1 [facility] e 40 mg EC 3-17 tablet by ity of tablet 00:00: mouth (two) Medical times Branch daily. sodium,pota 2021-0 Yes 117mL Take 117 U nivers ssium,mag 3-17 mL by ity of sulfates 00:00: mouth [place] 17.5-3.13- 00 SEE-INSTRU Me dical .6 gram CTIONS. Branch Take as directed pantoprazol 2021-0 Yes [id number] 40mg Take 1 [facility] e 40 mg EC 3-17 tablet by ity of tablet 00:00: mouth (two) Medical times Branch daily. sodium,pota 2021-0 Yes 117mL Take 117 U nivers ssium,mag 3-17 mL by ity of sulfates 00:00: mouth [place] 17.5-3.13- 00 SEE-INSTRU Me dical .6 gram CTIONS. Branch Take as directed pantoprazol 2-0 Yes [id number] 40mg Take 1 [facility] e 40 mg EC 3-17 tablet by ity of tablet 00:00: mouth 2 (two) Medical times Branch daily. sodium,pota 2-0 Yes 117mL Take 117 U nivers ssium,mag 3-17 mL by ity of sulfates 00:00: mouth [place] 17.5-3.13-1 00 SEE-INSTRU Me dical .6 gram CTIONS. Branch Take as directed pantoprazol 2-0 Yes [id number] 40mg Take 1 [facility] e 40 mg EC 3-17 tablet by ity of tablet 00:00: mouth 2 [place] 00 (two) Medical times Branch daily. sodium,pota Yes 117mL Take 117 U nivers ssium,mag 3-17 mL by ity of sulfates 00:00: mouth [place] 17.5-3.13-1 00 SEE-INSTRU Me dical .6 gram CTIONS. Branch Take as directed pantoprazol Yes [id number] 40mg Take 1 [facility] e 40 mg EC 3-17 tablet by ity of tablet 00:00: mouth 2 [place] 00 (two) Medical times Branch daily. sodium,pota Yes 117mL Take 117 U nivers ssium,mag 3-17 mL by ity of sulfates 00:00: mouth [place] 17.5-3.13-1 00 SEE-INSTRU Me dical .6 gram CTIONS. Branch Take as directed simvastatin Yes 10mg Take 10 mg Univers (ZOCOR) 10 3-15 by mouth ity o f mg tablet 08:04: at [place] [address] bedtime. Medical Branch blood-gluco Yes Univer s se meter 3-15 ity of (ACCU-CHEK 08:04: [place] GUIDE WI 04 Medical GLUCOSE MTR Branch MISC) ACCU-CHEK 0 Yes Check Univers FASTCLIX 3-15 glucose ity of MISC 08:04: twice [place] 04 daily; Medical Diagnosis Branch code E11.9 ACCU-CHEK 0 Yes Check Univers GUIDE strip 3-15 glucose ity o f 08:04: twice [place] 04 daily; Medical Diagnosis Branch code E11.9 gabapentin Yes 300mg Take 300 Un shaila 300 mg 3-15 mg by ity of capsule 08:04: mouth 2 [place] 04 (two) Medical times Branch daily. SPIRIVA Yes 1{capsu Inhale 1 Uni vers WITH 3-15 le} capsule ity of HANDIHALER 08:04: daily. [place] 18 mcg 04 Medical inhalation Branch device budesonide Yes .5mg Inhale 0.5 U nivers 0.5 mg/2 mL 3-15 mg 2 (two) it y of nebulizer 08:04: times [place] [facility] 04 daily. Medical Rinse Branch mouth after each use. PROVENTIL 0 Yes 1{puff} Inhale 1 U nivers HFA 90 3-15 Puff 2 ity of mcg/actuati 08:04: (two) [place] on inhaler 04 times Medical daily as Branch needed for Wheezing or Shortness of Breath. isosorbide Yes Take by Univ ers mononitrate 3-15 mouth ity of 60 mg 24 hr 08:04: daily. [place] tablet 04 Medical Branch simvastatin Yes 10mg Take 10 mg [facility] (ZOCOR) 10 3-15 by mouth ity o f mg tablet 08:04: at [place] 04 bedtime. Medical Branch blood-gluco Yes Univer s se meter 3-15 ity of (ACCU-CHEK 08:04: [place] GUIDE ME 04 Medical GLUCOSE MTR Branch MISC) ACCU-CHEK 0 Yes Check [facility] FASTCLIX 3-15 glucose ity of MISC 08:04: twice [place] 04 daily; Medical Diagnosis Branch code E11.9 ACCU-CHEK 0 Yes Check [facility] GUIDE strip 3-15 glucose ity o f 08:04: twice [place] 04 daily; Medical Diagnosis Branch code E11.9 gabapentin 2021-0 Yes 300mg Take 300 Un shaila 300 mg 3-15 mg by ity of capsule 08:04: mouth 2 [place] 04 (two) Medical times Branch daily. SPIRIVA Yes 1{capsu Inhale 1 Uni vers WITH 3-15 le} capsule ity of HANDIHALER 08:04: daily. [place] 18 mcg 04 Medical inhalation Branch device budesonide 0 Yes .5mg Inhale 0.5 U nivers 0.5 mg/2 mL 3-15 mg 2 (two) it y of nebulizer 08:04: times [place] solution 04 daily. Medical Rinse Branch mouth after each use. PROVENTIL Yes 1{puff} Inhale 1 U nivers HFA 90 3-15 Puff 2 ity of mcg/actuati 08:04: (two) [place] on inhaler 04 times Medical daily as Branch needed for Wheezing or Shortness of Breath. isosorbide Yes Take by Univ ers mononitrate 3-15 mouth ity of 60 mg 24 hr 08:04: daily. [place] tablet Medical Branch simvastatin Yes 10mg Take 10 mg [facility] (ZOCOR) 10 3-15 by mouth ity o f mg tablet 08:04: at [place] 04 bedtime. Medical Branch blood-gluco Yes Univer s se meter 3-15 ity of (ACCU-CHEK 08:04: [place] GUIDE ME 04 Medical GLUCOSE [facility] Branch [facility] [place] ACCU-CHEK Yes Check Univers FASTCLIX 3-15 glucose ity of MISC 08:04: twice [place] 04 daily; Medical Diagnosis Branch code E11.9 ACCU-CHEK 0 Yes Check Univers GUIDE strip 3-15 glucose ity o f 08:04: twice [place] 04 daily; Medical Diagnosis Branch code E11.9 gabapentin 0 Yes 300mg Take 300 Un shaila 300 mg 3-15 mg by ity of capsule 08:04: mouth 2 [place] 04 (two) Medical times Branch daily. SPIRIVA Yes 1{capsu Inhale 1 Uni vers WITH 3-15 le} capsule ity of HANDIHALER 08:04: daily. [place] 18 mcg 04 Medical inhalation Branch device budesonide Yes .5mg Inhale 0.5 U nivers 0.5 mg/2 mL 3-15 mg 2 (two) it y of nebulizer 08:04: times [place] solution 04 daily. Medical Rinse Branch mouth after each use. PROVENTIL Yes 1{puff} Inhale 1 U nivers HFA 90 3-15 Puff 2 ity of mcg/actuati 08:04: (two) [place] on inhaler 04 times Medical daily as Branch needed for Wheezing or Shortness of Breath. isosorbide Yes Take by Univ ers mononitrate 3-15 mouth ity of 60 mg 24 hr 08:04: [place]. [place] tablet 04 [place] simvastatin Yes 10mg Take 10 mg Univers (ZOCOR) 10 3-15 by mouth ity o f mg tablet 08:04: at [place] 04 bedtime. Medical Branch blood-gluco Yes Univer s se meter 3-15 ity of (ACCU-CHEK 08:04: [place] GUIDE [place] 04 Medical GLUCOSE [facility] Branch [facility] [place] ACCU-CHEK Yes Check Univers FASTCLIX 3-15 glucose ity of MISC 08:04: twice [place] 04 daily; Medical Diagnosis Branch code E11.9 ACCU-CHEK 0 Yes Check Univers GUIDE strip 3-15 glucose ity o f 08:04: twice [place] 04 daily; Medical Diagnosis Branch code E11.9 gabapentin 0 Yes 300mg Take 300 Un shaila 300 mg 3-15 mg by ity of capsule 08:04: mouth 2 [place] 04 (two) Medical times Branch daily. SPIRIVA 0 Yes 1{capsu Inhale 1 Uni vers WITH 3-15 le} capsule ity of HANDIHALER 08:04: daily. [place] 18 mcg 04 Medical inhalation Branch device budesonide Yes .5mg Inhale 0.5 U nivers 0.5 mg/2 mL 3-15 mg 2 (two) it y of nebulizer 08:04: times [place] solution 04 daily. Medical Rinse Branch mouth after each use. PROVENTIL Yes 1{puff} Inhale 1 U nivers HFA 90 3-15 Puff 2 ity of mcg/actuati 08:04: (two) [place] on inhaler 04 times Medical daily as Branch needed for Wheezing or Shortness of Breath. isosorbide Yes Take by Univ ers mononitrate 3-15 mouth ity of 60 mg 24 hr 08:04: daily. [place] tablet 04 [place] [facility] simvastatin 0 Yes 10mg Take 10 mg [facility] (ZOCOR) 10 3-15 by mouth ity o f mg tablet 08:04: at [place] 04 bedtime. Medical Branch blood-gluco Yes Univer s se meter 3-15 ity of (ACCU-CHEK 08:04: [place] GUIDE [place] 04 Medical GLUCOSE MTR Branch MISC) ACCU-CHEK 2021-0 Yes Check Univers FASTCLIX 3-15 glucose ity of MISC 08:04: twice [place] 04 daily; Medical Diagnosis Branch code E11.9 ACCU-CHEK 2021-0 Yes Check Univers GUIDE strip 3-15 glucose ity o f 08:04: twice [place] 04 daily; Medical Diagnosis Branch code E11.9 gabapentin 0 Yes 300mg Take 300 Un shaila 300 mg 3-15 mg by ity of capsule 08:04: mouth 2 [place] 04 (two) Medical times Branch daily. SPIRIVA 2021-0 Yes 1{capsu Inhale 1 Uni vers WITH 3-15 le} capsule ity of HANDIHALER 08:04: daily. [place] 18 mcg 04 Medical inhalation Branch device budesonide Yes .5mg Inhale 0.5 U nivers 0.5 mg/2 mL 3-15 mg 2 (two) it y of nebulizer 08:04: times [place] solution 04 daily. Medical Rinse Branch mouth after each use. PROVENTIL Yes 1{puff} Inhale 1 U nivers HFA 90 3-15 Puff 2 ity of mcg/actuati 08:04: (two) [place] on inhaler 04 times Medical daily as Branch needed for Wheezing or Shortness of Breath. isosorbide Yes Take by Univ ers mononitrate 3-15 mouth ity of 60 mg 24 hr 08:04: daily. [place] tablet 04 [facility] simvastatin Yes 10mg Take 10 mg [facility] (ZOCOR) 10 3-15 by mouth ity o f mg tablet 08:04: at [place] 04 bedtime. Medical Branch blood-gluco Yes Univer s se meter 3-15 ity of (ACCU-CHEK 08:04: [place] GUIDE ME 04 Medical GLUCOSE MTR Branch MISC) ACCU-CHEK Yes Check Univers FASTCLIX 3-15 glucose ity of MISC 08:04: twice [place] 04 daily; Medical Diagnosis Branch code E11.9 ACCU-CHEK 0 Yes Check Univers GUIDE strip 3-15 glucose ity o f 08:04: twice [place] 04 daily; Medical Diagnosis Branch code E11.9 gabapentin Yes 300mg Take 300 Un shaila 300 mg 3-15 mg by ity of capsule 08:04: mouth 2 [place] 04 (two) Medical times Branch daily. SPIRIVA Yes 1{capsu Inhale 1 Uni vers WITH 3-15 le} capsule ity of HANDIHALER 08:04: daily. [place] 18 mcg Medical inhalation Branch device budesonide Yes .5mg Inhale 0.5 U nivers 0.5 mg/2 mL 3-15 mg 2 (two) it y of nebulizer 08:04: times [place] solution 04 daily. Medical Rinse Branch mouth after each use. PROVENTIL 2022-0 Yes 1{puff} Inhale 1 U nivers HFA 90 3-15 Puff 2 ity of mcg/actuati 08:04: (two) [place] on inhaler 04 times Medical daily as Branch needed for Wheezing or Shortness of Breath. isosorbide Yes Take by Univ ers mononitrate 3-15 mouth ity of 60 mg 24 hr 08:04: daily. [place] tablet Medical Branch simvastatin Yes 10mg Take 10 mg [facility] (ZOCOR) 10 3-15 by mouth ity o f mg tablet 08:04: at [place] [id number] bedtime. Medical Branch blood-gluco Yes Univer s se meter 3-15 ity of (ACCU-CHEK 08:04: [place] GUIDE [place] 04 Medical GLUCOSE MTR Branch MISC) ACCU-CHEK Yes Check Univers FASTCLIX 3-15 glucose ity of MISC 08:04: twice [place] 04 daily; Medical Diagnosis Branch code E11.9 ACCU-CHEK Yes Check Univers GUIDE strip 3-15 glucose ity o f 08:04: twice [place] 04 daily; Medical Diagnosis Branch code E11.9 gabapentin Yes 300mg Take 300 Un shaila 300 mg 3-15 mg by ity of capsule 08:04: mouth 2 [place] 04 (two) Medical times Branch daily. SPIRIVA Yes 1{capsu Inhale 1 Uni vers WITH 3-15 le} capsule ity of HANDIHALER 08:04: daily. [place] 18 mcg 04 Medical inhalation Branch device budesonide Yes .5mg Inhale 0.5 U nivers 0.5 mg/2 mL 3-15 mg 2 (two) it y of nebulizer 08:04: times [place] solution 04 daily. Medical Rinse Branch mouth after each use. PROVENTIL Yes 1{puff} Inhale 1 U nivers HFA 90 3-15 Puff 2 ity of mcg/actuati 08:04: (two) [place] on inhaler 04 times Medical daily as Branch needed for Wheezing or Shortness of Breath. isosorbide Yes Take by Univ ers mononitrate 3-15 mouth ity of 60 mg 24 hr 08:04: daily. [place] tablet Medical Branch simvastatin Yes 10mg Take 10 mg [facility] (ZOCOR) 10 3-15 by mouth ity o f mg tablet 08:04: at [place] 04 bedtime. Medical Branch blood-gluco Yes Univer s se meter 3-15 ity of (ACCU-CHEK 08:04: [place] GUIDE ME 04 Medical GLUCOSE MTR Branch MISC) ACCU-CHEK 0 Yes Check Univers FASTCLIX 3-15 glucose ity of MISC 08:04: twice [place] 04 daily; Medical Diagnosis Branch code E11.9 ACCU-CHEK 0 Yes Check Univers GUIDE strip 3-15 glucose ity o f 08:04: twice [place] 04 daily; Medical Diagnosis Branch code E11.9 gabapentin 0 Yes 300mg Take 300 Un shaila 300 mg 3-15 mg by ity of capsule 08:04: mouth 2 [place] 04 (two) Medical times Branch daily. SPIRIVA Yes 1{capsu Inhale 1 Uni vers WITH 3-15 le} capsule ity of HANDIHALER 08:04: daily. [place] 18 mcg 04 Medical inhalation Branch device budesonide Yes .5mg Inhale 0.5 U nivers 0.5 mg/2 mL 3-15 mg 2 (two) it y of nebulizer 08:04: times [place] solution 04 daily. Medical Rinse Branch mouth after each use. PROVENTIL Yes 1{puff} Inhale 1 U nivers HFA 90 3-15 Puff 2 ity of mcg/actuati 08:04: (two) [place] on inhaler 04 times Medical daily as Branch needed for Wheezing or Shortness of Breath. isosorbide Yes Take by Univ ers mononitrate 3-15 mouth ity of 60 mg 24 hr 08:04: daily. [place] tablet 04 Medical Branch hydrALAZINE 0 Yes [id number] 25mg Take 1 [facility] 25 mg 3-03 tablet by ity of tablet 00:00: mouth [place] 00 every 8 Medical (eight) Branch hours. hydrALAZINE 0 Yes [id number] 25mg Take 1 [facility] 25 mg 3-03 tablet by ity of tablet 00:00: mouth [place] 00 every 8 Medical (eight) Branch hours. hydrALAZINE 0 Yes [id number] 25mg Take 1 [facility] 25 mg 3-03 tablet by ity of tablet 00:00: mouth [place] 00 every 8 Medical (eight) Branch hours. hydrALAZINE 2021-0 Yes [id number] 25mg Take 1 [facility] 25 mg 3-03 tablet by ity of tablet 00:00: mouth [place] 00 every 8 Medical (eight) Branch hours. hydrALAZINE 2021-0 Yes [id number] 25mg Take 1 [facility] 25 mg 3-03 tablet by ity of tablet 00:00: mouth [place] 00 every 8 Medical (eight) Branch hours. hydrALAZINE 2021-0 Yes [id number] 25mg Take 1 [facility] 25 mg 3-03 tablet by ity of tablet 00:00: mouth [place] 00 every 8 Medical (eight) Branch hours. hydrALAZINE 2021-0 Yes [id number] 25mg Take 1 [facility] 25 mg 3-03 tablet by ity of tablet 00:00: mouth [place] 00 every 8 Medical (eight) Branch hours. hydrALAZINE 2021-0 Yes [id number] 25mg Take 1 [facility] 25 mg 3-03 tablet by ity of tablet 00:00: mouth [place] 00 every 8 Medical (eight) Branch hours. ergocalcife 2021-0 Yes [id number] TAKE 1 Univers rol, 2-09 CAPSULE BY ity of vitamin d2, 00:00: MOUTH [place] (VITAMIN 00 EVERY WEEK Medic al D2) 1,250 Branch mcg (50,000 DIRECTED unit) capsule ergocalcife 0 2021- No [id number] TAKE 1 [facility] rol, 2-09 09-07 CAPSULE BY ity of vitamin d2, 00:00: 00:00 MOUTH [place] (VITAMIN 00 :00 EVERY WEEK Medic al D2) 1,250 Branch mcg (50,000 DIRECTED unit) capsule desloratadi 2021-0 Yes [id number] 5mg Take 1 Univers ne 5 mg 1-25 tablet by ity of tablet 00:00: mouth [place] 00 every Medical other day. Branch desloratadi 2021-0 Yes [id number] 5mg Take 1 Univers ne 5 mg 1-25 tablet by ity of tablet 00:00: mouth [place] 00 every Medical other day. Branch desloratadi 2021-0 Yes [id number] 5mg Take 1 [facility] ne 5 mg 1-25 tablet by ity of tablet 00:00: mouth [place] 00 every Medical other day. Branch desloratadi 2021-0 Yes [id number] 5mg Take 1 [facility] ne 5 mg 1-25 tablet by ity of tablet 00:00: mouth [place] 00 every Medical other day. Branch desloratadi 2021-0 Yes [id number] 5mg Take 1 Univers ne 5 mg 1-25 tablet by ity of tablet 00:00: mouth [place] 00 every Medical other day. Branch desloratadi 2021-0 Yes [id number] 5mg Take 1 Univers ne 5 mg 1-25 tablet by ity of tablet 00:00: mouth [place] 00 every Medical other day. Branch desloratadi 2021-0 Yes [id number] 5mg Take 1 [facility] ne 5 mg 1-25 tablet by ity of tablet 00:00: mouth [place] 00 every Medical other day. Branch desloratadi 0 Yes [id number] 5mg Take 1 Univers ne 5 mg 1-25 tablet by ity of tablet 00:00: mouth [place] 00 every Medical other day. Branch donepeziL 0 Yes [id number] 10mg Take 1 Un shaila 10 mg 9-21 tablet by ity of tablet 00:00: mouth at [place] 00 bedtime. Medical Branch donepeziL 0 Yes [id number] 10mg Take 1 Un shaila 10 mg 9-21 tablet by ity of tablet 00:00: mouth at [place] 00 bedtime. Medical Branch donepeziL 0 Yes [id number] 10mg Take 1 Un shaila 10 mg 9-21 tablet by ity of tablet 00:00: mouth at [place] 00 bedtime. Medical Branch donepeziL 0 Yes [id number] 10mg Take 1 Un shaila 10 mg 9-21 tablet by ity of tablet 00:00: mouth at [place] 00 bedtime. Medical Branch donepeziL 0 Yes [id number] 10mg Take 1 Un shaila 10 mg 9-21 tablet by ity of tablet 00:00: mouth at [place] 00 bedtime. Medical Branch donepeziL 2020-0 Yes [id number] 10mg Take 1 Un shaila 10 mg 9-21 tablet by ity of tablet 00:00: mouth at [place] 00 bedtime. Medical Branch donepeziL 2020-0 Yes [id number] 10mg Take 1 Un shaila 10 mg 9-21 tablet by ity of tablet 00:00: mouth at 00 bedtime. Medical Branch donepeziL 2021-0 Yes [id number] 10mg Take 1 Un shaila 10 mg 9-21 tablet by ity of tablet 00:00: mouth at 00 bedtime. Medical Branch CYCLOBENZAP 2021-0 Yes [id number] TAKE 1 Univers RINE 5 mg 9-10 TABLET BY ity o f tablet 00:00: MOUTH 00 TWICE A Medical DAY Branch NEEDED FOR MUSCLE SPASMS CYCLOBENZAP 202-0 Yes [id number] TAKE 1 Univers RINE 5 mg 9-10 TABLET BY ity o f tablet 00:00: MOUTH 00 TWICE A Medical DAY Branch NEEDED FOR MUSCLE SPASMS CYCLOBENZAP 2020-0 Yes [id number] TAKE 1 Univers RINE 5 mg 9-10 TABLET BY ity o f tablet 00:00: MOUTH 00 TWICE A Medical DAY Branch NEEDED FOR MUSCLE SPASMS CYCLOBENZAP 2021-0 Yes [id number] TAKE 1 Univers RINE 5 mg 9-10 TABLET BY ity o f tablet 00:00: MOUTH 00 TWICE A Medical DAY Branch NEEDED FOR MUSCLE SPASMS CYCLOBENZAP 2021-0 Yes [id number] TAKE 1 Univers RINE 5 mg 9-10 TABLET BY ity o f tablet 00:00: MOUTH 00 TWICE A Medical DAY Branch NEEDED FOR MUSCLE SPASMS CYCLOBENZAP 2021-0 Yes [id number] TAKE 1 Univers RINE 5 mg 9-10 TABLET BY ity o f tablet 00:00: MOUTH 00 TWICE A Medical DAY Branch NEEDED FOR MUSCLE SPASMS CYCLOBENZAP 2021-0 Yes [id number] TAKE 1 Univers RINE 5 mg 9-10 TABLET BY ity o f tablet 00:00: MOUTH 00 TWICE A Medical DAY Branch NEEDED FOR MUSCLE SPASMS CYCLOBENZAP 2021-0 Yes [id number] TAKE 1 Univers RINE 5 mg 9-10 TABLET BY ity o f tablet 00:00: MOUTH 00 TWICE A Medical DAY Branch NEEDED FOR MUSCLE SPASMS bumetanide 2021-0 Yes 2mg Take 2 Unive rs 1 mg tablet 8-30 tablets by it y of 00:00: mouth 00 (two) Medical times Branch daily. bumetanide 2020-0 Yes 2mg Take 2 Unive rs 1 mg tablet 8-30 tablets by it y of 00:00: mouth (two) Medical times Branch daily. bumetanide 2020-0 Yes 2mg Take 2 Unive rs 1 mg tablet 8-30 tablets by it y of 00:00: mouth (two) Medical times Branch daily. bumetanide 0 Yes 2mg Take 2 Unive rs 1 mg tablet 8-30 tablets by it y of 00:00: mouth (two) Medical times Branch daily. bumetanide 0 Yes 2mg Take 2 Unive rs 1 mg tablet 8-30 tablets by it y of 00:00: mouth (two) Medical times Branch daily. bumetanide 0 Yes 2mg Take 2 Unive rs 1 mg tablet 8-30 tablets by it y of 00:00: mouth (two) Medical times Branch daily. bumetanide Yes 2mg Take 2 Unive rs 1 mg tablet 8-30 tablets by it y of 00:00: mouth (two) Medical times Branch daily. bumetanide Yes 2mg Take 2 Unive rs 1 mg tablet 8-30 tablets by it y of 00:00: mouth (two) Medical times Branch daily. albuterol Yes [place] 108 (90 12-16 [facility] Base) 15:09: MCG/ACT 49 inhaler budesonide Yes [facility] (Pulmicort) 12-16 Health 0.25 MG/2ML 15:09: nebulizer 49 solution bumetanide Yes TAKE 1 [facility] (Bumex) 1 12-16 TABLET BY Healt h MG tablet 15:09: MOUTH 49 TWICE DAILY donepezil Yes [facility] (Aricept) 12-16 Health 10 MG 15:09: tablet 49 metoprolol Yes [facility] succinate 12-16 Health XL 15:09: (Toprol-XL) 49 50 MG 24 hr tablet montelukast Yes [facility] (Singulair) 12-16 Health 10 MG 15:09: tablet 49 pantoprazol Yes TAKE 1 [facility] e 12-16 TABLET Health (ProtoNix) 15:09: DAILY. 40 MG EC 49 tablet potassium 2021-0 Yes [facility] chloride CR 8 Health (Klor-Con 15:09: M10) 10 MEQ 49 ER tablet Tiotropium 0 Yes [facility] [place] 12-16 Health Monohydrate 15:09: (Spiriva 49 Respimat) 1.25 MCG/ACT aerosol solution traZODone Yes [facility] (Desyrel) 8 Health 300 MG 15:09: tablet 49 econazole 0 Yes [id number] Apply to U nivers nitrate 1 % 7-19 area(s) ity o f cream 00:00: daily. Medical Branch mupirocin 2 Yes [id number] Apply to Univers % ointment 7-19 area(s) 2 ity of 00:00: (two) [place] times Medical daily. Branch econazole 0 Yes [id number] Apply to U nivers nitrate 1 % 7-19 area(s) ity o f cream 00:00: daily. Medical Branch mupirocin 2 0 Yes [id number] Apply to Univers % ointment 7-19 area(s) 2 ity of 00:00: (two) [place] times Medical daily. Branch econazole 0 Yes [id number] Apply to U nivers nitrate 1 % 7-19 area(s) ity o f cream 00:00: daily. Medical Branch mupirocin 2 0 Yes [id number] Apply to Univers % ointment 7-19 area(s) 2 ity of 00:00: (two) [place] Medical daily. Branch econazole 2020-0 Yes [id number] Apply to U nivers nitrate 1 % 7-19 area(s) ity o f cream 00:00: daily. Medical Branch mupirocin 2 2020-0 Yes [id number] Apply to Univers % ointment 7-19 area(s) 2 ity of 00:00: (two) [place] times Medical daily. Branch econazole 2020-0 Yes [id number] Apply to U nivers nitrate 1 % 7-19 area(s) ity o f cream 00:00: daily. Medical Branch mupirocin 2 2020-0 Yes [id number] Apply to Univers % ointment 7-19 area(s) 2 ity of 00:00: (two) [place] 00 times Medical daily. Branch econazole 2020-0 Yes [id number] Apply to U nivers nitrate 1 % 7-19 area(s) ity o f cream 00:00: daily. Medical Branch mupirocin 2 2020-0 Yes [id number] Apply to Univers % ointment 7-19 area(s) 2 ity of 00:00: (two) [place] 00 times Medical daily. Branch econazole 2020-0 Yes [id number] Apply to U nivers nitrate 1 % 7-19 area(s) ity o f cream 00:00: daily. Medical Branch mupirocin 2 2020-0 Yes [id number] Apply to Univers % ointment 7-19 area(s) 2 ity of 00:00: (two) [place] 00 times Medical daily. Branch econazole 2020-0 Yes [id number] Apply to U nivers nitrate 1 % 7-19 area(s) ity o f cream 00:00: daily. Medical Branch mupirocin 2 2020-0 Yes [id number] Apply to Univers % ointment 7-19 area(s) 2 ity of 00:00: (two) [place] 00 times Medical daily. Branch HYDROcodone 2020-0 Yes Univer s -acetaminop 7-01 ity of hen 10-325 00:00: [place] mg tablet 00 Medical Branch HYDROcodone 2020-0 Yes Univer s -acetaminop 7-01 ity of hen 10-325 00:00: [place] mg tablet 00 Medical Branch HYDROcodone 2020-0 Yes Univer s -acetaminop 7-01 ity of hen 10-325 00:00: [place] mg tablet 00 Medical Branch HYDROcodone 2020-0 Yes Univer s -acetaminop 7-01 ity of hen 10-325 00:00: [place] mg tablet 00 Medical Branch HYDROcodone 2020-0 Yes Univer s -acetaminop 7-01 ity of hen 10-325 00:00: [place] mg tablet 00 Medical Branch HYDROcodone 2020-0 Yes Univer s -acetaminop 7-01 ity of hen 10-325 00:00: [place] mg tablet 00 Medical Branch HYDROcodone 2020-0 Yes Univer s -acetaminop 7-01 ity of hen 10-325 00:00: [place] mg tablet 00 Medical Branch HYDROcodone Yes Univer s -acetaminop 10-21 ity of hen 10-325 00:00: [place] mg tablet 00 Medical Branch traZODone Yes [facility] (Desyrel) 09-27 Health 300 MG 18:46: tablet 35 albuterol Yes [facility] 108 (90 09-27 [facility] Base) 18:46: MCG/ACT 35 inhaler budesonide Yes [facility] (Pulmicort) 09-27 Health 0.25 MG/2ML 18:46: nebulizer 35 solution bumetanide Yes TAKE 1 [facility] (Bumex) 1 09-27 TABLET BY Healt h MG tablet 18:46: MOUTH 35 TWICE DAILY donepezil Yes [facility] (Aricept) 09-27 Health 10 MG 18:46: tablet 35 metoprolol Yes [facility] succinate 09-27 Health XL 18:46: (Toprol-XL) 35 50 MG 24 hr tablet montelukast Yes [facility] (Singulair) 09-27 Health 10 MG 18:46: tablet 35 pantoprazol Yes TAKE 1 [facility] e 09-27 TABLET Health (ProtoNix) 18:46: DAILY. 40 MG EC 35 tablet potassium Yes [facility] chloride CR 09-27 Health (Klor-Con 18:46: M10) 10 MEQ 35 ER tablet Tiotropium Yes [facility] [place] 09-27 Health Monohydrate 18:46: (Spiriva 35 Respimat) 1.25 MCG/ACT aerosol solution ferrous Yes [id number] 324mg Take 1 Un shaila gluconate 2-23 tablet by ity o f 324 mg 00:00: mouth 2 [place] (37.5 mg 00 (two) Medical iron) times Branch tablet daily. ferrous Yes [id number] 324mg Take 1 Un shaila gluconate 2-23 tablet by ity o f 324 mg 00:00: mouth 2 [place] (37.5 mg 00 (two) Medical iron) times Branch tablet daily. ferrous Yes [id number] 324mg Take 1 Un [place] gluconate 2-23 tablet by ity o f 324 mg 00:00: mouth 2 [place] (37.5 mg 00 (two) Medical iron) times Branch tablet daily. ferrous 2020-0 Yes [id number] 324mg Take 1 Un shaila gluconate 2-23 tablet by ity o f 324 mg 00:00: mouth 2 [place] (37.5 mg 00 (two) Medical iron) times Branch tablet daily. ferrous 2020-0 Yes [id number] 324mg Take 1 Un [place]a gluconate 2-23 tablet by ity o f 324 mg 00:00: mouth 2 [place] (37.5 mg 00 (two) Medical iron) times Branch tablet daily. ferrous 2020-0 Yes [id number] 324mg Take 1 Un [place] gluconate 2-23 tablet by ity o f 324 mg 00:00: mouth 2 [place] (37.5 mg 00 (two) Medical iron) times Branch tablet daily. ferrous 2020-0 Yes [id number] 324mg Take 1 Un shaila gluconate 2-23 tablet by ity o f 324 mg 00:00: mouth 2 [place] (37.5 mg 00 (two) Medical iron) times Branch tablet daily. ferrous 2020-0 Yes [id number] 324mg Take 1 Un [place] gluconate 2-23 tablet by ity o f 324 mg 00:00: mouth 2 [place] (37.5 mg 00 (two) Medical iron) times Branch tablet daily. sucralfate 2020-0 Yes [id number] 1g Take 1 Unive rs 1 gram 1-05 tablet by ity of tablet 00:00: mouth [place] 00 before Medical meals and Branch at bedtime. Indication s: a type of stomach irritation called gastritis sucralfate 2020-0 Yes 1815 1g Take 1 Unive rs 1 gram 1-05 tablet by ity of tablet 00:00: mouth [place] 00 before Medical meals and Branch at bedtime. Indication s: a type of stomach irritation called gastritis sucralfate 2020-0 Yes 1815 1g Take 1 Unive rs 1 gram 1-05 tablet by ity of tablet 00:00: mouth [place] 00 before Medical meals and Branch at bedtime. Indication s: a type of stomach irritation called gastritis sucralfate 2020-0 Yes 1815 1g Take 1 Unive rs 1 gram 1-05 tablet by ity of tablet 00:00: mouth [place] 00 before Medical meals and Branch at bedtime. Indication s: a type of stomach irritation called gastritis sucralfate 0 Yes 1815 1g Take 1 Unive rs 1 gram 1-05 tablet by ity of tablet 00:00: mouth [place] 00 before Medical meals and Branch at bedtime. Indication s: a type of stomach irritation called gastritis sucralfate 0 Yes 1815 1g Take 1 Unive rs 1 gram 1-05 tablet by ity of tablet 00:00: mouth [place] 00 before Medical meals and Branch at bedtime. Indication s: a type of stomach irritation called gastritis sucralfate 0 Yes 1815 1g Take 1 Unive rs 1 gram 1-05 tablet by ity of tablet 00:00: mouth [place] 00 before Medical meals and Branch at bedtime. Indication s: a type of stomach irritation called gastritis sucralfate 0 Yes 1815 1g Take 1 Unive rs 1 gram 1-05 tablet by ity of tablet 00:00: mouth [place] 00 before Medical meals and Branch at bedtime. Indication s: a type of stomach irritation called gastritis NYSTATIN 2020-1 Yes [id number] APPLY Univ ers 100,000 0-28 SMALL ity of unit/gram 00:00: AMOUNT TO [place]hav[place] as powder 00 AFFECTED Medical AREA TWICE Branch A DAY DIRECTED NYSTATIN 2020-1 Yes [id number] APPLY Univ ers 100,000 0-28 SMALL ity of unit/gram 00:00: AMOUNT TO [place] as powder 00 AFFECTED Medical AREA TWICE Branch A DAY DIRECTED NYSTATIN 2020-1 Yes [id number] APPLY Univ ers 100,000 0-28 SMALL ity of unit/gram 00:00: AMOUNT TO [place] as powder 00 AFFECTED Medical AREA TWICE Branch A DAY DIRECTED NYSTATIN 2020-1 Yes [id number] APPLY Univ ers 100,000 0-28 SMALL ity of unit/gram 00:00: AMOUNT TO [place] as powder 00 AFFECTED Medical AREA TWICE Branch A DAY DIRECTED NYSTATIN 2020-1 Yes [id number] APPLY Univ ers 100,000 0-28 SMALL ity of unit/gram 00:00: AMOUNT TO [place] as powder 00 AFFECTED Medical AREA TWICE Branch A DAY DIRECTED NYSTATIN 2020-1 Yes [id number] APPLY Univ ers 100,000 0-28 SMALL ity of unit/gram 00:00: AMOUNT TO [place] as powder 00 AFFECTED Medical AREA TWICE Branch A DAY DIRECTED NYSTATIN 2020-1 Yes [id number] APPLY Univ ers 100,000 0-28 SMALL ity of unit/gram 00:00: AMOUNT TO [place] as powder 00 AFFECTED Medical AREA TWICE Branch A DAY DIRECTED NYSTATIN 2019-04 Yes [id number] APPLY [facility] [place] [facility] ers 100,000 0-28 SMALL ity of unit/gram 00:00: AMOUNT TO [place] as powder 00 AFFECTED Medical AREA TWICE Branch A DAY DIRECTED aspirin 2019-04 Yes TAKE 1 [facility] (Aspirin 0-19 TABLET BY Health Adult Low 00:00: MOUTH Dose) 81 MG 00 EVERY DAY EC tablet aspirin 2019-04 Yes TAKE 1 [facility] (Aspirin 0-19 TABLET BY Health Adult Low 00:00: MOUTH Dose) 81 MG 00 EVERY DAY EC tablet Aspirin Aspirin 2019-04 Yes TAKE 1 [facility] Adult Low Adult Low 0-19 TABLET BY Physici Dose 81 MG Dose 81 MG 00:00: MOUTH ans Oral Tablet Oral Tablet 00 EVERY DAY Delayed Delayed Release Release metOLazone 2019-04 Yes TAKE 1 [facility] (Zaroxolyn) 0-09 TABLET Health 5 MG tablet 00:00: ONCE 00 DAILY. metOLazone 2019-04 Yes TAKE 1 [facility] (Zaroxolyn) 0-09 TABLET Health 5 MG tablet 00:00: ONCE 00 DAILY. metOLazone metOLazone 2019-04 Yes BENNET QD TAKE 1 UT 5 MG Oral 5 MG Oral 0-09 KEN TABLET P hysici Tablet Tablet 00:00: M.D. ONCE ans 00 DAILY. hydrOXYchlo 2020-0 2021- No 200mg Q.5D Take 200 Methodi roQUINE 6-22 04-[address] (PLAQUENIL) 00:00: 00:00 mouth 2 [facility] sp[facility] 200 mg 00 :00 (two) l tablet times a day. hydrALAZINE 2019-0 Yes TAKE 1 [facility] (Apresoline 3-05 TABLET 3 Heal th ) 50 MG 00:00: TIMES tablet 00 DAILY. isosorbide 2020-0 Yes TAKE ONE [facility] mononitrate 3-[address] [facility] (Imdur) 00:00: MOUTH 30 MG 24 hr 00 EVERY tablet MORNING hydrALAZINE 2020-0 Yes TAKE 1 [facility] (Apresoline 3-05 TABLET 3 Heal th ) 50 MG 00:00: TIMES tablet 00 DAILY. isosorbide 2020-0 Yes TAKE ONE [facility] mononitrate 3-[address] [facility] ER (Imdur) 00:00: MOUTH 30 MG 24 hr 00 EVERY tablet MORNING hydrALAZINE hydrALAZINE 2019-0 Yes BENNET Q0.3333D TAKE 1 UT HCl - 50 MG HCl - 50 MG 3-05 KEN TABLET 3 Physici Oral Tablet Oral Tablet 00:00: M.D. TIMES ans 00 DAILY. Isosorbide Isosorbide Yes BENNET QD TAKE ONE [facility] Mononitrate Mononitrate 3-05 KEN TABLET BY Physici ER 30 MG ER 30 MG 00:00: M.D. MOUTH ans Oral Tablet Oral Tablet 00 EVERY Extended Extended MORNING Release 24 Release 24 Hour Hour alcohol 2021- No Comments: Meth dionna swabs pads, 07-17 05 | Filled st medicated 00:00: 00:00 Date: Teresa garcia 2017 l 12:16PM | Patient Notes: USE TO TEST BLOOD GLUCOSE TWICE DAILY Duration: 30 traMADol 2016-04 Yes TAKE 1 TO [facility] (Ultram) 50 1-27 2 TABLETS Hea lth MG tablet 00:00: EVERY 6 00 HOURS NEEDED FOR PAIN. traMADol 2016-04 Yes TAKE 1 TO [facility] (Ultram) 50 1-27 2 TABLETS [facility] MG tablet 00:00: EVERY 6 00 HOURS NEEDED FOR PAIN. traMADol traMADol 2016-04 Yes SALLIE TAKE 1 TO UT HCl - 50 MG HCl - 50 MG 1-27 EBONY M.D. 2 TABLETS Physici Oral Tablet Oral Tablet 00:00: EVERY 6 ans 00 HOURS NEEDED FOR PAIN. gabapentin 2016-04 Yes TAKE 1 UT (Neurontin) 1-08 CAPSULE [facility]alt [facility] 300 MG 00:00: TWICE capsule 00 DAILY gabapentin 2016-04 Yes TAKE 1 UT (Neurontin) 1-08 CAPSULE [facility]alt [facility] 300 MG 00:00: TWICE capsule 00 DAILY Gabapentin Gabapentin 2016-04 Yes SALLIE 1 Q0.5D TAKE 1 UT 300 MG Oral 300 MG Oral 1-08 EBONY M.D. CAPSULE Physici Capsule Capsule 00:00: TWICE ans 00 DAILY Gabapentin Gabapentin Yes Sandra Q0.3333D TAKE 1 UT 300 MG Oral 300 MG Oral 6-04 Pelini CAPSULE 3 Physici Capsule Capsule 00:00: M.D. TIMES ans 00 DAILY. hydroxychlo Yes TAKE 1 UT roquine 4-25 TABLET Health (Plaquenil) 00:00: TWICE 200 MG 00 DAILY. tablet simvastatin Yes TAKE 1 UT (Zocor) 40 4-25 TABLET Health MG tablet 00:00: DAILY. 00 hydroxychlo Yes TAKE 1 UT roquine 4-25 TABLET Health (Plaquenil) 00:00: TWICE 200 MG 00 DAILY. tablet simvastatin Yes TAKE 1 UT (Zocor) 40 4-25 TABLET Health MG tablet 00:00: DAILY. 00 Simvastatin Simvastatin Yes 1 QD TAKE 1 UT 40 MG Oral 40 MG Oral 4-25 TABLET P hysici Tablet Tablet 00:00: DAILY. ans 00 Hydroxychlo Hydroxychlo Yes Q0.5D TAKE 1 UT roquine roquine 4-25 TABLET Physici Sulfate 200 Sulfate 200 00:00: TWICE ans MG Oral MG Oral 00 DAILY. Tablet Tablet Pantoprazol Pantoprazol Yes 1 QD TAKE 1 UT e Sodium 40 e Sodium 40 TABLET Physici MG Oral MG Oral DAILY. ans Tablet Tablet Delayed Delayed Release Release Potassium Potassium Yes UT Chloride Chloride Physici Eugenie ER 10 Eugenie ER 10 ans MEQ Oral MEQ Oral Tablet Tablet Extended Extended Release Release Bumetanide Bumetanide Yes BENNET TAKE 1 UT 1 MG Oral 1 MG Oral KEN TABLET BY Physici Tablet Tablet M.D. MOUTH ans TWICE DAILY Albuterol Albuterol Yes UT Sulfate HFA Sulfate HFA P hysici 108 MCG/ACT 108 MCG/ACT a ns AERS AERS Montelukast Montelukast Yes U T Sodium 10 Sodium 10 Physi ci MG Oral MG Oral ans Tablet Tablet Budesonide Budesonide Yes UT 0.25 MG/2ML 0.25 MG/2ML P hysici Inhalation Inhalation ans Suspension Suspension Spiriva Spiriva Yes UT Respimat Respimat Physici AERS AERS ans Metoprolol Metoprolol Yes UT Succinate Succinate Physi ci ER 50 MG ER 50 MG ans Oral Tablet Oral Tablet Extended Extended Release 24 Release 24 Hour Hour Donepezil Donepezil Yes UT HCl - 10 MG HCl - 10 MG P hysici Oral Tablet Oral Tablet a ns traZODone traZODone Yes UT HCl TABS HCl TABS Physici ans Flexeril 10 Flexeril 10 Yes U T MG TABS MG TABS Physici ans Immunizations Ordered Immunization Filled Immunization Date Status Commen ts Source Name Name SARS-COV-2 COVID-19 2021-02-15 Completed [facility]ive [facility] of [facility] VACCINE 00:00:00 [place] [facility] SARS-COV-2 COVID-19 2021-02-15 Completed Unive rsity of MODERNA 12+ YRS 00:00:00 [place] [facility] SARS-COV-2 COVID-19 2021-02-15 Completed [facility]ive rsity of MODERNA 12+ YRS 00:00:00 [place] [facility] SARS-COV-2 COVID-19 2021-02-15 Completed Unive rsity of MODERNA 12+ YRS 00:00:00 [place] [facility] SARS-COV-2 COVID-19 2021-02-15 Completed Unive rsity of MODERNA 12+ YRS 00:00:00 [place] [facility] SARS-COV-2 COVID-19 2021-02-15 Completed Unive rsity of MODERNA 12+ YRS 00:00:00 [place] [facility] SARS-COV-2 COVID-19 2021-02-15 Completed Unive rsity of MODERNA 12+ YRS 00:00:00 [place] [facility] SARS-COV-2 COVID-19 2021-02-15 Completed [facility]ive rs[facility] of MODERNA 12+ YRS 00:00:00 [place] [facility] MODERNA COVID-19 MRNA 2021-02-15 Completed [facility] VACCINATION 00:00:00 Hospital MODERNA COVID-19 MRNA 2020-08-11 Completed [facility] VACCINATION 00:00:00 Hospital Covid-19 Moderna 2020-08-11 Completed [facility] SARS-CoV-2 00:00:00 Vaccination Covid-19 Moderna 2020-08-11 Completed [facility] SARS-CoV-2 00:00:00 Vaccination SARS-COV-2 COVID-19 2020-07-07 Completed [facility] rs[facility] of MODERNA VACCINE 00:00:00 [place] [facility] SARS-COV-2 COVID-19 2020-07-07 Completed Unive rsity of MODERNA 12+ YRS 00:00:00 [place] [facility] SARS-COV-2 COVID-19 2020-07-07 Completed Unive rsity of MODERNA 12+ YRS 00:00:00 [place] [facility] SARS-COV-2 COVID-19 2020-07-07 Completed Unive rsity of MODERNA 12+ YRS 00:00:00 [place] [facility] SARS-COV-2 COVID-19 2020-07-07 Completed Unive rsity of MODERNA 12+ YRS 00:00:00 [place] [facility] SARS-COV-2 COVID-19 2020-07-07 Completed Unive rsity of MODERNA 12+ YRS 00:00:00 [place] [facility] SARS-COV-2 COVID-19 2020-07-07 Completed [facility]ive rsity of MODERNA 12+ YRS 00:00:00 [place] [facility] SARS-COV-2 COVID-19 2020-07-07 Completed Unive rsity of MODERNA 12+ YRS 00:00:00 [place] [facility] MODERNA COVID-19 MRNA 2020-07-07 Completed [facility] VACCINATION 00:00:00 Hospital Covid-19 Moderna 2020-07-07 [facility]pleted [facility] SARS-CoV-2 00:00:00 Vaccination Covid-19 Moderna 2020-07-07 Completed [facility] SARS-CoV-2 00:00:00 Vaccination TDAP 2020-06-15 Completed [facility] 00:00:00 [facility] TDAP 2020-06-15 Completed University of 00:00:00 [facility] TDAP 2020-06-15 Completed University of 00:00:00 [facility] TDAP 2020-06-15 Completed University of 00:00:00 [facility] TDAP 2020-06-15 Completed University of 00:00:00 [facility] TDAP 2020-06-15 Completed University of 00:00:00 [facility] TDAP 2020-06-15 Completed University of 00:00:00 [facility] TDAP 2020-06-15 Completed University of 00:00:00 [facility] Tdap 2020-06-15 Completed [facility] 00:[facility]:00 [facility] Pneumococcal 2020-02-10 Completed University o f Polysaccharide, 00:00:00 [place] [facility] PPSV23 (PNEUMOVAX) [facility] Pneumococcal 2020-02-10 Completed University o f Polysaccharide, 00:00:00 [place] [facility] PPSV23 (PNEUMOVAX) Branch Pneumococcal 2020-02-10 Completed University o f Polysaccharide, 00:00:00 [place] [facility] PPSV23 (PNEUMOVAX) Branch Pneumococcal 2020-02-10 Completed University o f Polysaccharide, 00:00:00 [place] [facility] PPSV23 (PNEUMOVAX) Branch Pneumococcal 2020-02-10 Completed University o f Polysaccharide, 00:00:00 [place] [facility] PPSV23 (PNEUMOVAX) Branch Pneumococcal 2020-02-10 Completed University o f Polysaccharide, 00:00:00 [place] [facility] PPSV23 (PNEUMOVAX) Branch Pneumococcal 2020-02-10 Completed University o f Polysaccharide, 00:00:00 [place] [facility] PPSV23 (PNEUMOVAX) Branch Pneumococcal 2020-02-10 Completed University o f Polysaccharide, 00:00:00 [place] [facility] PPSV23 (PNEUMOVAX) Branch Pneumococcal 2020-02-10 Completed [facility] Polysaccharide 00:00:00 Hospital Vital Signs Vital Name Observation Time Observation Value Comments Source Systolic blood 2022-01-18 157 mm[Hg] University of pressure 16:38:00 [facility] Diastolic blood 2022-01-18 66 mm[Hg] University o f pressure 16:38:00 [facility] Heart rate 2022-01-18 59 /min [facility] 16:38:00 [facility] Body temperature 2022-01-18 36.56 Ana [facility] 16:38:00 [facility] Respiratory rate 2022-01-18 18 /min [facility] 16:38:00 [facility] Body height 2022-01-18 177.8 cm [facility] 16:38:00 [facility] Body weight 2022-01-18 74.39 kg [facility] 16:38:00 [facility] BMI 2022-01-18 23.53 kg/m2 [facility] 16:38:00 [facility] Oxygen saturation 2022-01-18 100 /min [facility] in Arterial blood 16:38:00 [facility] by Pulse oximetry [place] Body height 2022-05-09 177.8 cm [facility] 21:23:00 [facility] Body weight 2022-05-09 68.947 kg [facility] 21:23:00 [facility] BMI 2022-05-09 21.81 kg/m2 [facility] 21:23:00 [facility] Systolic blood 2022-04-03 153 mm[Hg] [facility] pressure 16:41:00 Hospital Diastolic blood 2022-04-03 77 mm[Hg] [facility] pressure 16:41:00 Hospital Heart rate 2022-04-03 60 /min [facility] 16:41:00 Hospital Oxygen saturation 2022-03-22 100 /min [facility] in Arterial blood 19:51:00 Hospital by Pulse oximetry Body temperature 2022-02-02 36.17 Ana [facility] 19:21:00 Hospital Respiratory rate 2022-02-02 20 /min [facility] 19:21:00 Hospital Systolic blood 2020-02-09 158 mm[Hg] Location: LUE; [facility] pressure 14:36:00 Position: Sitting Diastolic blood 2020-02-09 77 mm[Hg] Location: LUE; [facility] pressure 14:36:00 Position: Sitting Body height 2020-02-09 70 [in_us] [facility] 14:36:00 Weight 2020-02-09 201.6 [lb_av] [facility] 14:36:00 Body mass index 2020-02-09 28.93 kg/m2 [facility] (BMI) [Ratio] 14:36:00 Heart Rate 2020-02-09 80 /min Location: L [facility] 14:36:00 Radial; Quality: Normal Systolic blood 2019-12-17 142 mm[Hg] [facility] pressure 09:26:00 Diastolic blood 2019-12-17 78 mm[Hg] [facility] pressure 09:26:00 Body height 2019-12-17 70 [in_us] [facility] 09:26:00 Weight 2019-12-17 227 [lb_av] [facility] 09:26:00 Body mass index 2019-12-17 32.57 kg/m2 [facility] (BMI) [Ratio] 09:26:00 Body temperature 2019-12-17 98.2 [degF] [facility] 09:26:00 Heart Rate 2019-12-17 84 /min [facility] 09:26:00 O2 SAT 2019-12-17 96 % [facility] 09:26:00 Systolic blood 2019-10-23 130 mm[Hg] Location: RUE; [facility] pressure 16:16:00 Position: Sitting Diastolic blood 2019-10-23 75 mm[Hg] [place]; [place] [facility] pressure 16:16:00 Position: Sitting Weight 2019-10-23 213.2 [lb_av] [facility] 16:16:00 Body mass index 2019-10-23 30.59 kg/m2 [facility] (BMI) [Ratio] 16:16:00 Heart Rate 2019-10-23 80 /min [facility] 16:16:00 Systolic blood 2019-06-26 186 mm[Hg] Location: [place]; [place] [facility] pressure 11:26:00 Position: Sitting Diastolic blood 2019-06-26 84 mm[Hg] Location: LUE; [place] [facility] pressure 11:26:00 Position: Sitting Body height 2019-06-26 70 [in_us] [facility] 11:26:00 Weight 2019-06-26 205 [lb_av] [facility] 11:26:00 Body mass index 2019-06-26 29.41 kg/m2 [facility] (BMI) [Ratio] 11:26:00 Heart Rate 2019-06-26 69 /min Location: L [facility] 11:26:00 Radial; Quality: Normal Systolic blood 2019-05-27 146 mm[Hg] Location: E; [place] [facility] pressure 11:56:00 Position: Sitting Diastolic blood 2019-05-27 72 mm[Hg] Location: [facility]; [place] [facility] pressure 11:56:00 Position: Sitting Body height 2019-05-27 70 [in_us] [facility] 11:56:00 Weight 2019-05-27 204 [lb_av] [facility] 11:56:00 Body mass index 2019-05-27 29.27 kg/m2 [facility] (BMI) [Ratio] 11:56:00 Heart Rate 2019-05-27 90 /min Location: L [facility] 11:56:00 Radial; Quality: Normal Procedures Procedure Date / Time Performing Clinician Source Performed SEDIMENTATION RATE 2022-04-03 17:39:00 [facility] DOUBLE-STRANDED DNA (DSDNA) 2022-04-03 17:39:00 [facility] ANTIBODIES, CRITHIDIA C-REACTIVE PROTEIN 2022-04-03 17:39:00 [facility] COMPREHENSIVE METABOLIC 2022-04-03 17:39:00 [facility] PANEL CBC WITH PLATELET AND 2022-04-03 17:39:00 [facility] DIFFERENTIAL C4 COMPLEMENT COMPONENT 2022-04-03 17:39:00 [facility] ESTIMATED GFR 2022-04-03 17:39:00 Danita Sousa spital MEDICATION CORRESPONDENCE 2022-03-28 06:01:00 Doctor Unassigned, [facility] CBC WITH PLATELET AND 2022-03-22 21:05:00 [facility] DIFFERENTIAL COMPREHENSIVE METABOLIC 2022-03-22 21:05:00 Trey Rodarte [facility] PANEL THYROID STIMULATING HORMONE 2022-03-22 21:05:00 Aster [facility] LIPID PANEL 2022-03-22 21:05:00 Trey Rodarte ospital ECG 12-LEAD 2022-03-22 20:50:[address] HEAD WO CONTRAST 2022-02-23 16:30:01 [facility] ECG 12-LEAD 2022-02-07 16:38:33 Oliver Méndez spital XR HIPS 3 VW RIGHT 2022-01-18 18:24:54 Singer [facility] CT CERVICAL SPINE WO 2022-01-18 18:07:14 Singer [facility] REFERRAL- REQUEST/RESPONSE 2021-12-20 05:01:00 Doctor Unassigned , [facility] Name [facility] CREATINE KINASE, TOTAL 2021-10-27 20:10:00 [facility] (CPK) ALDOLASE, SERUM 2021-10-27 20:10:00 [facility] GLYCOPROTEIN 1 2021-10-27 19:54:00 [facility] ANTIBODIES (IGG, IGA, IGM) C3 COMPLEMENT COMPONENT 2021-10-27 19:54:00 [facility] CARDIOLIPIN ANTIBODIES 2021-10-27 19:54:00 [facility] CBC WITH PLATELET AND 2021-10-27 19:54:00 [facility] DIFFERENTIAL COMPLEMENT ACTIVITY, TOTAL 2021-10-27 19:54:00 Lars [facility] COMPREHENSIVE METABOLIC 2021-10-27 19:54:00 [facility] PANEL C-REACTIVE PROTEIN 2021-10-27 19:54:00 [facility], [facility] CYCLIC CITRULLINATED 2021-10-27 19:54:00 [facility] PEPTIDE AB, IGG DIRECT ANTIGLOBULIN TEST 2021-10-27 19:54:00 [facility] (STEPHANY) DOUBLE-STRANDED DNA (DSDNA) 2021-10-27 19:54:00 [facility] ANTIBODIES, CRITHIDIA LUPUS ANTICOAGULANT PANEL 2021-10-27 19:54:00 [facility], [facility] RHEUMATOID FACTOR 2021-10-27 19:54:00 [facility], [facility] RIBONUCLEOPROTEIN ANTIBODY 2021-10-27 19:54:00 [facility] (STOCK SELECTOR ANTIBODY) SEDIMENTATION RATE 2021-10-27 19:54:00 [facility] URINALYSIS SCREEN AND 2021-10-27 19:54:00 [facility] MICROSCOPY, WITH REFLEX TO CULTURE URINE PROTEIN/CREATININE 2021-10-27 19:54:00 [facility] RATIO, RANDOM VITAMIN D 25 HYDROXY LEVEL 2021-10-27 19:54:00 [facility] SERUM ELECTROPHORESIS 2021-10-27 19:54:00 [facility] IMMUNOFIXATION, SERUM 2021-10-27 19:54:00 [facility] COVID-19 QUALITATIVE RT-PCR 2021-09-08 18:19:00 [facility] XR CHEST 2 VW 2021-09-08 [facility] 2021-09-08 17:16:00 [facility] COMPREHENSIVE METABOLIC 2021-09-08 17:16[facility]00 [facility] CBC WITH PLATELET AND 2021-09-08 17:16:00 [facility] DIFFERENTIAL TSH WITH REFLEX TO FREE T4 2021-09-08 17:16:00 [facility] HEMOGLOBIN A1C 2021-09-08 17:16:00 [facility] MICROALBUMIN / CREATININE 2021-09-08 17:16:00 [place], [facility] URINE RATIO URINALYSIS, AUTOMATED WITH 2021-09-08 17:16:00 [place], [facility] MICROSCOPY VITAMIN B12 LEVEL 2021-09-08 17:16:00 [place], [facility] MAGNESIUM LEVEL 2021-09-08 17:16:00 [place], [facility] LIPID PANEL 2021-09-08 17:16:00 [place], [facility] SEDIMENTATION RATE 2021-09-08 17:16:00 [place], [facility] C-REACTIVE PROTEIN 2021-09-08 17:16:00 [place], [facility] RHEUMATOID FACTOR 2021-09-08 17:16:00 [place], [facility] CLEVE SCREEN W IFA W REFLEX 2021-09-08 17:16:00 [place], [facility] TO TITER SS-A ANTIBODY 2021-09-08 17:16:00 [place], [facility] SS-B ANTIBODY 2021-09-08 17:16:00 [place], [facility] CYCLIC CITRULLINATED 2021-09-08 17:16:00 [place], [facility] PEPTIDE AB, IGG IRON LEVEL 2021-09-08 17:16:00 [place], [facility] FERRITIN LEVEL 2021-09-08 17:16:00 [facility] VITAMIN D 25 HYDROXY LEVEL 2021-09-08 17:16:00 [place], [facility] URIC ACID LEVEL 2021-09-08 17:16:00 [place], [facility] VITAMIN B1 LEVEL, WHOLE 2021-09-08 17:16:00 [facility] BLOOD VITAMIN B6 LEVEL, PLASMA 2021-09-08 17:16:00 [facility] FOLATE LEVEL 2021-09-08 17:16:00 [place], [facility] [QL] BASIC METABOLIC PANEL 2020-06-24 00:00:00 [facility] W/EGFR [QL] B TYPE NATRIURETIC 2020-06-24 00:00:00 [facility] PEPTIDE (BNP) [QL] CMP W/EGFR 2019-10-23 00:00:00 [facility] [QL] CBC (INCLUDES 2019-10-23 00:00:00 [facility] DIFF/PLT) [QL] B TYPE NATRIURETIC 2019-10-23 00:00:00 [facility] PEPTIDE (BNP) [QLH] CMP W/EGFR 2019-05-27 00:00:00 [facility] [LH] CBC (without 2019-05-27 00:00:00 [facility] differential) [QLH] LIPID PANEL 2019-05-27 00:00:00 [facility] [QLH] TSH, 3RD GENERATION 2019-05-27 00:00:00 [facility] W/REFLEX TO FT4 [QLH] HEMOGLOBIN A1c 2019-05-27 00:00:00 [facility] [QLH] PROTHROMBIN TIME-INR 2019-05-27 00:00:00 [facility] [QLH] B TYPE NATRIURETIC 2019-05-27 00:00:00 [facility] PEPTIDE (BNP) History of Lung Lobectomy [facility] of Cholecystectomy [facility] History of Knee Replacement [facility] History of Pacemaker [facility] Placement [facility] of Hysterectomy [facility] of [facility] Plan of Care Planned Activity Planned Date Details Comments Source Future Scheduled 2022-06-07 DIABETIC FOOT EXAM [facility] 15:39:00 [code = DIABETIC Hospital FOOT EXAM] Future Scheduled 2022-06-07 Hepatitis C [facility] Test 15:39:00 screening Hospital (procedure) [code = 959852025] Future Scheduled 2022-06-07 BREAST CANCER [facility] Test 15:39:00 SCREENING [code = Hospital BREAST CANCER SCREENING] Future Scheduled 2022-06-07 INFLUENZA VACCINE Postponed from [facility] Test 15:39:00 [code = INFLUENZA 11/21/2021 Hospital VACCINE] (Patient Refused) Future Scheduled 2022-06-07 SHINGLES VACCINES Postponed from [facility] Test 15:39:00 (1 of 2) [code = 1968 (Not Hospital SHINGLES VACCINES Indicated) (1 of 2)] Future Scheduled 2022-06-07 COVID-19 VACCINE Postponed from [facility] Test 15:39:00 (4 - Booster for 04/12/2021 (Not Hospital Moderna series) Indicated) [code = COVID-19 VACCINE (4 - Booster for Moderna series)] Future Scheduled 2022-06-07 COLONOSCOPY Postponed from [facility] Test 15:39:00 SCREENING [code = 1994 (Not Hospita l COLONOSCOPY Indicated) SCREENING] Future Scheduled 2022-06-07 DIABETES: RETINAL Method ist Test 15:39:00 EYE EXAM [code = Hospital DIABETES: RETINAL EYE EXAM] Future Scheduled [QL] CMP W/EGFR Before next [facility] Test [code = [QL] CMP appointment W/EGFR] Future Scheduled [QL] CBC (INCLUDES Before next [facility] Test DIFF/PLT) [code = appointment [QL] CBC (INCLUDES DIFF/PLT)] Future Scheduled [QL] B TYPE Before next [facility] Test NATRIURETIC appointment PEPTIDE (BNP) [code = [QL] B TYPE NATRIURETIC PEPTIDE (BNP)] Future Scheduled [QL] CMP W/EGFR Before next [facility] Test [code = [QL] CMP appointment W/EGFR] Future Scheduled [QL] CBC (INCLUDES Before next [facility] Test DIFF/PLT) [code = appointment [QL] CBC (INCLUDES DIFF/PLT)] Future Scheduled [QL] B TYPE Before next [facility] Test NATRIURETIC appointment PEPTIDE (BNP) [code = [QL] B TYPE NATRIURETIC PEPTIDE (BNP)] Encounters Start End Encounter Admission Attending Care Care Encounter Source Date/Time Date/Time Type Type Clinicians Facility Department ID 2022-06-06 Outpatient [facility] [id number] [place] 11:09:34 [id number] [facility] 2021-09-16 Outpatient CINDY Chaves [facility] [id number] Common 11:10:01 Vinitha [facility] 2021-07-08 Outpatient Janessa RODRIGUEZ [facility] SAW [id number] Univers 12:40:[address] [facility] 2021-06-21 Outpatient Janessa RODRIGUEZ [facility] SAW [id number] Univers 15:02:[address] [facility] 2021-05-19 Outpatient CINDY Chaves [facility] [id number] Common 15:25:01 Vinitha [facility] 2021-05-18 Outpatient Anastacio, STLMLC ST[facility] [id number] Common 14:37:30 K[facility]ia [facility] - [facility] 2021-05-03 Outpatient RAMSEY, [facility] [id number] [place] 11:30:57 [facility] 2021-02-19 Outpatient Janessa ANTONIO [facility] GILizandro [id number] Univers 07:46:[address] [facility] 2020-11-16 Outpatient KEN, [facility] [id number] [place] 12:27:57 [facility] 2020-11-12 Outpatient HEMATPOUR, [facility] [id number] [place] 15:41:16 [facility] 2020-09-24 Outpatient HAMIDA, [facility] [id number] [place] 16:46:48 [facility] 2020-09-09 Outpatient KEN, [facility] [id number] [place] 15:48:20 [facility] 2022-07-20 2022-07-20 Outpatient KEN, [facility] [id number] [place] 14:00:00 14:00:00 [facility] 2022-07-18 2022-07-18 Outpatient HEMATPOUR, [facility] [id number] [place] 10:45:00 10:45:00 KHASHCHANTALR [facility]al 2022-05-18 2022-05-18 Orders Zena, 1.2.840.1 [id number] Methodi 00:00:00 00:00:00 Only Rohit [address]80.1.[address] 3.430.2.7 Hospit a .3.196575 l .8 2022-05-18 2022-05-18 Telephone Saravanan, 1.2.840.1 [id number] Methodi 00:00:00 00:00:[address] [place] 3.430.2.7 Hospit a .3.745188 l .8 2022-05-16 2022-05-16 Refill Cristino, 1.2.840.1 [id number] Methodi 00:00:00 00:00:[address] 3.430.2.7 Hospit a .3.219686 l .8 2022-05-09 2022-05-10 Telephone Saravanan, 1.2.840.1 [id number] Methodi 15:45:00 11:22:52 Consult Rafy 50626.1.[address] [place] 3.430.2.7 Hospit a .3.513401 l .8 2022-05-09 2022-05-10 Outpatient SAR[facility]ORMERLY [facility] [id number] [place] 00:00:00 00:00:[address] 2022-04-26 2022-04-26 Telephone Saravanan, 1.2.840.1 [id number] 21 [id number] Methodi 00:00:00 00:00:[address] Wang 3.430.2.7 Hospit a .3.280263 l .8 2022-04-21 2022-04-21 Travel 1.2.840.1 [id number] Methodi 00:00:00 00:00:[address] 3.430.2.7 0.2.7.3.698 Ho spita .3.225532 084.8 l .8 2022-04-21 2022-04-21 Telephone Ruthie, 1.2.840.1 [id number] [id number] Methodi 00:00:00 00:00:[address] James 3.430.2.7 Hospi ta .3.986723 l .8 2022-04-21 2022-04-21 Telephone Saravanan, 1.2.840.1 [id number] Methodi 00:00:00 00:00:[address] [place] [address] Wang 3.430.2.7 Hospit a .3.042862 l .8 2022-04-14 2022-04-14 Telephone Danita Sousa 1.2.840.1 [id number] Methodi 12:30:00 13:00:[address] 3.430.2.7 Hospit a .3.123716 l .8 2022-04-14 2022-04-14 Outpatient DANITA SOUSA [facility] [id number] [place] 00:00:00 00:00:[address] 2022-04-13 2022-04-13 Refill Cristino, 1.2.840.1 [id number] Methodi 00:00:00 00:00:[address] 3.430.2.7 Hospit a .3.775994 l .8 2022-04-03 2022-04-03 Lab Danita Sousa 1.2.840.1 [id number] 2099 [id number] [facility] 11:40:00 11:45:[address] 3.430.2.7 Hospit a .3.921620 l .8 2022-04-03 2022-04-03 Office Danita Sousa 1.2.840.1 [id number] 2099 [id number] [facility] 10:30:00 11:06:[address] 3.430.2.7 Hospit a .3.529008 l .8 2022-04-03 2022-04-03 Outpatient DANITA SOUSA [facility] [id number] [place] 00:00:00 00:00:00 [address] 2022-04-03 2022-04-03 Outpatient DANITA SOUSA [facility] [address] [place] 00:00:00 00:00:[address] 2022-04-03 2022-04-03 Travel 1.2.840.1 1.2.627.269 4194 751798 Methodi 00:00:00 00:00:[address] 3.430.2.7 0.2.7.3.698 Ho spita .3.854193 084.8 l .8 2022-03-28 2022-03-28 Refill Zena, 1.2.840.1 [id number] 21 [id number] Methodi 00:00:00 00:00:[address] 3.430.2.7 Hospit a .3.135459 l .8 2022-03-28 2022-03-28 Orders Doctor GOYO 1.2.840.114 [id number] 61 Univers 00:00:00 00:00:00 Only Unassigned, MERLY 350.1.13.10 ity of [place] [facility] 4.2.7.2.686 Bhavik as [phone] [facility] [address] 2022-03-27 2022-03-27 Telephone Bernardo, 1.2.840.1 [id number] 2100 272523 Methodi 00:00:00 00:00:[address] Helen 3.430.2.7 Hospit a .3.644807 l .8 2022-03-24 2022-03-24 Travel 1.2.840.1 1.2.032.354 6723 811287 Methodi 00:00:00 00:00:[address] 3.430.2.7 0.2.7.3.698 Ho spita .3.717959 084.8 l .8 2022-03-22 2022-03-22 [facility] 1.2.840.1 [id number] 856 [id number] Methodi 13:00:00 15:26:13 Visit Trey 00549.1.[address] 3.430.2.7 Hospit a .3.120609 l .8 2022-03-22 2022-03-22 Outpatient [facility] 2100 [id number] [place] 00:00:00 00:00:[address]Y [address] 2022-03-22 2022-03-22 Travel 1.2.840.1 1.2.372.848 4506 484813 Methodi 00:00:00 00:00:[address] 3.430.2.7 0.2.7.3.698 Ho spita .3.039753 084.8 l .8 2022-02-24 2022-02-24 Orders Ruthie, 1.2.840.1 [id number] 46380 94711 Methodi 00:00:00 00:00:00 Only Ghazal 63861.1.[address] James 3.430.2.7 Hospi ta .3.231496 l .8 2022-02-23 2022-02-23 Outpatient RUTHIE [facility] [id number] 2234 [place] 00:00:00 00:00:[address] GHAZAL [address] 2022-02-23 2022-02-23 Travel 1.2.840.1 1.2.496.675 7402 524634 Methodi 00:00:00 00:00:[address] 3.430.2.7 0.2.7.3.698 Ho spita .3.726669 084.8 l .8 2022-02-23 2022-02-23 Telephone Ruthie, 1.2.840.1 [id number] 458 [id number] Methodi 00:00:00 00:00:[address] James 3.430.2.7 Hospi ta .3.120133 l .8 2022-02-22 2022-02-22 Refill Zena, 1.2.840.1 [id number] 21 [id number] Methodi 00:00:00 00:00:[address] 3.430.2.7 Hospit a .3.374177 l .8 2022-02-07 2022-02-07 Office Méndez, 1.2.840.1 [id number] 251292 2326 Methodi 11:20:00 11:30:00 Visit Oliver Dial 21588.1.[address] 3.430.2.7 Hospit a .3.056226 l .8 2022-02-07 2022-02-07 Outpatient [facility] [id number] 664 [place] 00:00:00 00:00:[address] 2022-02-07 2022-02-07 Telephone Aster, 1.2.840.1 [id number] 2 [id number] Methodi 00:00:00 00:00:[address] 3.430.2.7 Hospit a .3.249338 l .8 2022-02-07 2022-02-07 Travel 1.2.840.1 1.2.209.794 3480 894292 Methodi 00:00:00 00:00:[address] 3.430.2.7 0.2.7.3.698 Ho spita .3.429574 084.8 l .8 2022-02-02 2022-02-02 Office Patria Peck 1.2.840.1 [id number] Methodi 14:00:00 14:46:46 Visit Rafy Kiran 77651.1.[address] 3.430.2.7 Hospit a .3.692819 l .8 2022-02-02 2022-02-02 [facility] 555 [id number] [place] 00:00:00 00:00:00 Timmy CLARK Method i [address]RIA st 2022-02-02 2022-02-02 Travel 1.2.840.1 1.2.896.578 9744 790586 Methodi 00:00:00 00:00:[address] 3.430.2.7 0.2.7.3.698 Ho spita .3.543339 084.8 l .8 2022-01-24 2022-01-24 Telephone Saravanan 1.2.840.1 [id number] Methodi 00:00:00 00:00:[address] Wang 3.430.2.7 Hospit a .3.431638 l .8 2022-01-23 2022-01-23 Telephone Saravanan 1.2.840.1 [id number] Methodi 00:00:00 00:00:[address] Wang 3.430.2.7 Hospit a .3.394898 l .8 2022-01-23 2022-01-23 Telephone Yulia, 1.2.840.1 [id number] 862 7854837 Methodi 00:00:00 00:00:[address] 3.430.2.7 Hospit a .3.717644 l .8 2022-01-19 2022-01-19 Telephone Cristino, 1.2.840.1 [id number] 211 4375566 Methodi 00:00:00 00:00:[address] 3.430.2.7 Hospit a .3.176852 l .8 2022-01-18 2022-01-18 Emergency X [facility] ERT [id number] 60 Univers 11:39:00 15:13:00 TERRANCE fortune [facility] 2022-01-18 2022-01-18 Emergency [facility] 1.2.837.114 3169 2833 Univers 11:39:00 15:13:00 Terrance DOS SANTOS 350.1.13.10 i ty [facility] 4.2.7.2.686 [facility] [phone] [address] 2022-01-17 2022-01-17 Travel 1.2.840.1 1.2.385.212 1634 725121 Methodi 00:00:00 00:00:[address] 3.430.2.7 0.2.7.3.698 Ho spita .3.264703 084.8 l .8 2022-01-17 2022-01-17 Telephone Yulia, 1.2.840.1 [id number] 705 7633813 Methodi 00:00:00 00:00:[address] 3.430.2.7 Hospit a .3.410678 l .8 2022-01-16 2022-01-16 Telephone Yulia, 1.2.840.1 [id number] 388 [id number] Methodi 00:00:00 00:00:[address] 3.430.2.7 Hospit a .3.114508 l .8 2022-01-10 2022-01-10 Office Ruthie 1.2.840.1 [id number] 38570 87035 Methodi 13:20:00 14:22:30 Visit Ghazal 54879.1.[address] James 3.430.2.7 Hospi ta .3.250137 l .8 2022-01-10 2022-01-10 Outpatient RUTHIE, [facility] [id number] 4336 [place] 00:00:00 00:00:[address] 2022-01-10 2022-01-10 Travel 1.2.840.1 1.2.779.702 9946 911488 Methodi 00:00:00 00:00:[address] 3.430.2.7 0.2.7.3.698 Ho spita .3.327858 084.8 l .8 2022-01-10 2022-01-10 [facility] 1.2.840.114 83370 837 Univers 00:00:00 00:00:00 Wondiful A HEALTH 350.1.13.10 ity of [place] 4.2.7.2.686 Bhavik as ANIBAL?BLEA [phone] Ne kyung [address]IGGINS [address] MEDICAL OFFICE BUILDING 2022-01-04 2022-01-04 Telephone [facility] 1.2.840.114 96 [id number] Univers 00:00:00 00:00:00 Sergio L HEALTH 350.1.13.10 it y of [place] 4.2.7.2.686 Bhavik as ANIBAL?BLEA [phone] Ne dicthomas HIGGINS [address] MEDICAL OFFICE BUILDING 2022-01-03 2022-01-03 Telephone Yulia 1.2.840.1 [id number] 615 [id number] Methodi 00:00:00 00:00:[address] 3.430.2.7 Hospit a .3.761893 l .8 2021-12-27 2021-12-27 Telephone Yulia, 1.2.840.1 [id number] 928 1773152 Methodi 00:00:00 00:00:[address] 3.430.2.7 Hospit a .3.940742 l .8 2021-12-27 2021-12-27 Refill Yulia [facility] 1.2.840.114 65063 610 Univers 00:00:00 00:00:00 Wondiful A HEALTH 350.1.13.10 ity of [place] 4.2.7.2.686 Bhavik as ANIBAL?BLEA [phone] Ne kyung [address] MEDICAL OFFICE BUILDING 2021-12-20 2021-12-20 Orders Doctor GOYO 1.2.840.114 526792 00:00:00 00:00:00 Only Unassigned, MERLY 350.1.13.10 it[place] [facility] 4.2.7.2.686 Bhavik as [phone] [address] 2021-12-15 2021-12-15 Travel 1.2.840.1 1.2.990.448 1066 517895 Methodi 00:00:00 00:00:[address] 3.430.2.7 0.2.7.3.698 spita .3.235726 084.8 l .8 2021-12-15 2021-12-15 Billy Miller 1.2.840.1 [id number] 2099049 Methodi 00:00:00 00:00:[address] 3.430.2.7 Hospit a .3.845008 l .8 2021-12-14 2021-12-14 Telephone Yulia, 1.2.840.1 [id number] 845 [id number] Methodi 00:00:00 00:00:[address] 3.430.2.7 Hospit a .3.761767 l .8 2021-12-13 2021-12-13 Telephone Danita Sousa 1.2.840.1 [id number] 21 [id number] Methodi 14:30:00 15:07:[address] 3.430.2.7 Hospit a .3.784866 l .8 2021-12-13 2021-12-13 Outpatient DANITA SOUSA [facility] 97464 39020 [place] 00:00:00 00:00:[address] 2021-12-13 2021-12-13 Travel 1.2.840.1 1.2.519.228 8216 767523 Methodi 00:00:00 00:00:[address] 3.430.2.7 0.2.7.3.698 Ho spita .3.125092 084.8 l .8 2021-12-01 2021-12-01 Telephone Yulia, 1.2.840.1 [id number] 347 2997015 Methodi 00:00:00 00:00:[address] 3.430.2.7 Hospit a .3.884205 l .8 2021-12-01 2021-12-01 Travel 1.2.840.1 1.2.006.198 3227 439325 Methodi 00:00:00 00:00:[address] 3.430.2.7 0.2.7.3.698 Ho spita .3.663519 084.8 l .8 2021-11-30 2021-11-30 Telephone [place], 1.2.840.1 [id number] 023 7765700 Methodi 00:00:00 00:00:[address] 3.430.2.7 Hospit a .3.802235 l .8 2021-11-24 2021-11-24 Telephone [place], 1.2.840.1 [id number] 037 2413968 Methodi 00:00:00 00:00:[address] 3.430.2.7 Hospit a .3.956164 l .8 2021-11-23 2021-11-23 Refill Angela 1.2.840.1 [id number] 2100 687442 Methodi 00:00:00 00:00:[address] 3.430.2.7 Hospit a .3.763908 l .8 2021-11-15 2021-11-15 [facility] 1.2.840.114 50661 930 Univers 00:00:00 00:00:00 Wondiful A HEALTH 350.1.13.10 ity of [place] 4.2.7.2.686 Bhavik as ANIBAL?BLEA [phone] [address] OFFICE BUILDING 2021-11-10 2021-11-10 Telephone Yulia, 1.2.840.1 [id number] 137 [id number] Methodi 00:00:00 00:00:[address] 3.430.2.7 Hospit a .3.372423 l .8 2021-11-08 2021-11-08 Documentat Danita Sousa 1.2.840.1 [id number] 2 [id number] Methodi 00:00:00 00:00:[address] 3.430.2.7 Hospit a .3.118275 l .8 2021-11-08 2021-11-08 Telephone Yulia, 1.2.840.1 [id number] 043 3259422 Methodi 00:00:00 00:00:[address] 3.430.2.7 Hospit a .3.473189 l .8 2021-11-08 2021-11-08 [facility] 1.2.840.114 978144 67 Univers 00:00:00 00:00:00 Trey HEALTH 350.1.13.10 it y of [place] 4.2.7.2.686 Bhavik as ANIBAL?BLEA [phone] [address] OFFICE [facility] 2021-11-04 2021-11-04 Refarabella [facility] 1.2.840.114 97280 480 Univers 00:00:00 00:00:00 Wondiful A HEALTH 350.1.13.10 ity of [place] 4.2.7.2.686 Bhavik as ANIBAL?BLEA [phone] [address] OFFICE [facility] 2021-11-03 2021-11-03 Telephone [place], 1.2.840.1 [id number] 483 [id number] Methodi 00:00:00 00:00:[address] 3.430.2.7 Hospit a .3.425288 l .8 2021-11-03 2021-11-03 Billy [facility] 1.2.840.114 23543 004 Univers 00:00:00 00:00:00 Wondiful A [facility] 350.1.13.10 [facility] 4.2.7.2.686 Bhavik as ANIBAL?BLEA [phone] [address] 2021-11-01 2021-11-01 [facility] [id number] 5101 Univers 15:00:00 15:00:00 [facility] 2021-11-01 2021-11-01 [facility]patient [facility] [id number] 1904 Univers 15:00:00 15:00:00 [facility] 2021-10-31 2021-10-31 [facility] 1.2.840.114 [id number] 23 Univers 00:00:00 00:00:00 Trey HEALTH 350.1.13.10 it y of [place] 4.2.7.2.686 Bhavik as ANIBAL?BLEA [phone] [address] 2021-10-28 2021-10-28 Telephone [place], 1.2.840.1 [id number] 2100 220191 Methodi 00:00:00 00:00:[address] 3.430.2.7 Hospit a .3.063205 l .8 2021-10-28 2021-10-28 Telephone Lacey TXANNALISE 1.2.598.[address] [facility] 00:00:00 00:00:00 Besstech 350.1.13.10 it y of [place] 4.2.7.2.686 Bhavik as ANIBAL?BLEA [phone] Ne kyung [address] OFFICE BUILDING 2021-10-27 2021-10-27 Lab Danita Sousa 1.2.840.1 [id number] 2100 923445 Methodi 15:10:00 15:15:[address] 3.430.2.7 Hospit a .3.622113 l .8 2021-10-27 2021-10-27 Office Yulia Mattstefania 1.2.840.1 222469 023 [id number] Methodi 14:00:00 15:07:20 Visit Danita Sousa 27641.1.[address] 3.430.2.7 Hospit a .3.790994 l .8 2021-10-27 2021-10-27 Outpatient YULIA [facility] [id number] 0074 [place] 00:00:00 00:00:[address] 2021-10-27 2021-10-27 Outpatient DANITA SOUSA [facility] 81086 08464 [place] 00:00:00 00:00:[address] 2021-10-27 2021-10-27 Travel 1.2.840.1 1.2.806.448 7348 529983 Methodi 00:00:00 00:00:[address] 3.430.2.7 0.2.7.3.698 spita .3.719435 084.8 l .8 2021-10-25 2021-10-25 Travel 1.2.840.1 1.2.199.831 4329 491552 Methodi 00:00:00 00:00:[address] 3.430.2.7 0.2.7.3.698 Ho spita .3.121381 084.8 l .8 2021-10-25 2021-10-25 Telephone [facility] 1.2.883.040 9111 3962 Univers 00:00:00 00:00:00 Trey HEALTH 350.1.13.10 it y of [place] 4.2.7.2.686 Bhavik as ANIBAL?BLEA [phone] [address] OFFICE [facility] 2021-10-21 2021-10-21 Outpatient [facility] [id number] 516 Univers 09:40:00 09:40:00 ISAEL ity [facility] 2021-10-21 2021-10-21 [facility] 1.2.951.495 5584 9403 Univers 00:00:00 00:00:00 Trey HEALTH 350.1.13.10 it y of [place] 4.2.7.2.686 Bhavik as ANIBAL?BLEA [phone] [address] 2021-10-17 2021-10-17 Telephone Yulia, 1.2.840.1 [id number] 768 [id number] Methodi 00:00:00 00:00:[address] 3.430.2.7 Hospit a .3.670341 l .8 2021-10-12 2021-10-12 Telephone [facility] 1.2.033.479 4311 6685 Univers 00:00:00 00:00:00 Trey HEALTH 350.1.13.10 it y of [place] 4.2.7.2.686 Bhavik as ANIBAL?BLEA [phone] [address] 2021-10-11 2021-10-11 Travel 1.2.840.1 1.2.016.218 1208 531608 Methodi 00:00:00 00:00:[address] 3.430.2.7 0.2.7.3.698 Ho spita .3.992891 084.8 l .8 2021-10-11 2021-10-11 ANA Salazar 1.2.840.114 [id number] 48 Univers 00:00:00 00:00:00 Trey PEDIATRIC 350.1.13.10 [place] [phone] [address] 2021-10-10 2021-10-10 Telephone Yulia, 1.2.840.1 [id number] 003 [id number] Methodi 00:00:00 00:00:[address] 3.430.2.7 Hospit a .3.320097 l .8 2021-10-06 2021-10-06 Telephone Yulia, 1.2.840.1 [id number] 470 [id number] Methodi 00:00:00 00:00:[address] 3.430.2.7 Hospit a .3.976794 l .8 2021-10-06 2021-10-06 Telephone Cristino, 1.2.840.1 [id number] 424 4354086 Methodi 00:00:00 00:00:[address] 3.430.2.7 Hospit a .3.195931 l .8 2021-10-05 2021-10-05 Travel 1.2.840.1 1.2.992.162 1025 928435 Methodi 00:00:00 00:00:[address] 3.430.2.7 0.2.7.3.698 Ho spita .3.910565 084.8 l .8 2021-10-03 2021-10-03 IRON Salazar 1.2.840.114 055885 13 Univers 00:00:00 00:00:00 Trey HEALTH 350.1.13.10 it y of [place] 4.2.7.2.686 Bhavik as ANIBAL?BLEA [phone] Ne kyung [address] MEDICAL OFFICE BUILDING 2021-09-20 2021-09-20 Telephone [place], 1.2.840.1 [id number] 2100 419214 Methodi 00:00:00 00:00:00 Bee Riddle 09182.1.[address] 3.430.2.7 Hospit a .3.136494 l .8 2021-09-15 2021-09-15 Telephone Yulia, 1.2.840.1 [id number] 705 [id number] Methodi 00:00:00 00:00:[address] 3.430.2.7 Hospit a .3.618498 l .8 2021-09-14 2021-09-14 Refill Yulia, 1.2.840.1 [id number] 37760 57356 Methodi 00:00:00 00:00:[address] 3.430.2.7 Hospit a .3.524041 l .8 2021-09-14 2021-09-14 Travel 1.2.840.1 1.2.223.396 2113 166570 Methodi 00:00:00 00:00:[address] 3.430.2.7 0.2.7.3.698 Ho spita .3.621321 084.8 l .8 2021-09-14 2021-09-14 Telephone Evy Clements 1.2.840.1 [id number] Methodi 00:00:00 00:00:[address] 3.430.2.7 Hospit a .3.224104 l .8 2021 2021 Telephone Angela, 1.2.840.1 [id number] Methodi 00:00:00 00:00:[address] 3.430.2.7 Hospit a .3.855803 l .8 2021 2021 Telephone Yulia, 1.2.840.1 [id number] 334 8945888 Methodi 00:00:00 00:00:[address] 3.430.2.7 Hospit a .3.536158 l .8 2021 2021 Orders Yulia, 1.2.840.1 [id number] 30699 23580 Methodi 00:00:00 00:00:00 Only Wondiful 83415.1.[address] 3.430.2.7 Hospit a .3.742308 l .8 2021-09-09 2021-09-09 Telephone Angela, 1.2.840.1 [id number] Methodi 00:00:00 00:00:[address] 3.430.2.7 Hospit a .3.920520 l .8 2021-09-08 2021-09-08 Lab Yulia, 1.2.840.1 [id number] 71541 Methodi 13:20:00 13:30:[address] 3.430.2.7 Hospit a .3.737691 l .8 2021-09-08 2021-09-08 Lab Yulia, 1.2.840.1 [id number] 44697 Methodi 12:20:00 12:25:[address] 3.430.2.7 Hospit a .3.467948 l .8 2021-09-08 2021-09-08 Office Yulia, 1.2.840.1 [id number] 88092 Methodi 10:45:00 12:00:09 Visit Wondiful 38324.1.[address] 3.430.2.7 Hospit a .3.335443 l .8 2021-09-08 2021-09-08 Outpatient YULIA [facility] [id number] 1706 [place] 00:00:00 00:00:[address] 2021-09-08 2021-09-08 Outpatient YULIA [facility] [id number] 7035 [place] 00:00:00 00:00:[address]IF[address] 2021-09-08 2021-09-08 Telephone Yulia, 1.2.840.1 [id number] 485 [id number] Methodi 00:00:00 00:00:[address] 3.430.2.7 Hospit a .3.092543 l .8 2021-09-08 2021-09-08 Travel 1.2.840.1 1.2.183.508 5941 541083 Methodi 00:00:00 00:00:[address] 3.430.2.7 0.2.7.3.698 Ho spita .3.731142 084.8 l .8 2021-09-08 2021-09-08 Outpatient YULIA [facility] [id number] 3552 [place] 00:00:00 00:00:[address] 2021-09-08 2021-09-08 Outpatient YULIA [facility] [id number] 2590 [place] 00:00:00 00:00:[address]IF[address] 2021-09-01 2021-09-01 Refill Yulia, 1.2.840.1 [id number] 12966 24281 Methodi 00:00:00 00:00:[address] 3.430.2.7 Hospit a .3.899528 l .8 2021-08-30 2021-08-30 Outpatient GUU_SHENG_Y [facility] 106 166-202 [place] 03:06:00 03:06:00 AW [address] da [facility] 2021-08-18 2021-08-18 Refill Yulia, 1.2.840.1 [id number] 30491 73107 Methodi 00:00:00 00:00:[address] 3.430.2.7 Hospit a .3.952960 l .8 2021-08-16 2021-08-16 Outpatient Janessa RAHMAN [facility] [id number] [address] [facility] 14:30:00 14:30:00 TREY fortune [facility] 2021-08-16 2021-08-16 Outpatient Janessa RAHMAN [facility] [id number] 165 Univers 14:30:00 14:30:00 TREY fortune [facility] 2021-08-16 2021-08-16 Outpatient [facility] [id number] 385 Univers 08:30:00 08:30:00 TREY fortune [facility] 2021-08-15 2021-08-15 Orders Yulia, 1.2.840.1 [id number] 96638 Methodi 00:00:00 00:00:00 Only Wondiful 12253.1.[address] 3.430.2.7 Hospit a .3.892083 l .8 2021-08-15 2021-08-15 Refill Yulia 1.2.840.1 [id number] Methodi 00:00:00 00:00:[address] 3.430.2.7 Hospit a .3.777467 l .8 2021-08-15 2021-08-15 Refarabella [facility]UN[facility] 1.2.840.114 [id number] Univers 00:00:00 00:00:00 Trey HEALTH 350.1.13.10 it y of [place] 4.2.7.2.686 Bhavik as ANIBAL?BLEA [phone] [address] 2021-08-15 2021-08-15 Billy RahmanUN[facility] 1.2.840.114 [id number] Univers 00:00:00 00:00:00 Trey HEALTH 350.1.13.10 it y of [place] 4.2.7.2.686 Bhavik as ANIBAL?BLEA [phone] [address] 2021-08-11 2021-08-11 Carmen Terry 1.2.840.1 [id number] [id number] Methodi 00:00:00 00:00:00 Renika T [address]12.1.[address] 3.430.2.7 Hospit a .3.478377 l .8 2021-08-11 2021-08-11 Travel 1.2.840.1 1.2.538.741 4844 [id number] Methodi 00:00:00 00:00:[address] 3.430.2.7 0.2.7.3.698 Ho spita .3.204028 084.8 l .8 2021-08-11 2021-08-11 Billy [facility] 1.2.840.114 [id number] Univers 00:00:00 00:00:00 Valente Rivera PRIMARY 350.1.13.10 [place] [id number] Ne dicne [address] [place] 2021-08-09 2021-08-09 Carmen Manning [facility] 1.2.649.738 [id number] [id number] Univers 00:00:00 00:00:00 Thomas RIDLEYTON 350.1.13.10 [place] [id number] [facility] 0[facility] 2021-08-08 2021-08-08 Refarabella BenderUN[facility] 1.2.840.114 [id number] Univers 00:00:00 00:00:00 Wondiful A HEALTH 350.1.13.10 ity of [place] 4.2.7.2.686 Bhavik as ANIBAL?BLEA [phone] [address] MEDICAL OFFICE [facility] 2021-08-03 2021-08-03 Billy [facility]UN[facility] 1.2.840.114 [id number] Univers 00:00:00 00:00:00 Wondiful A HEALTH 350.1.13.10 ity of [place] 4.2.7.2.686 Bhavik as ANIBAL?BLEA [phone] [address] OFFICE [facility] 2021-08-02 2021-08-02 Billy [facility]UN[facility] 1.2.840.114 [id number] Univers 00:00:00 00:00:00 Wondiful A HEALTH 350.1.13.10 ity of [place] 4.2.7.2.686 Bhavik as ANIBAL?BLEA [id number] [address] MEDICAL OFFICE [facility] 2021-07-29 2021-07-29 Outpatient R LACEY [facility] [id number] Univers 15:00:00 15:00:00 TREY ity of [facility] 2021-07-28 2021-07-28 Orders Doctor GOYO 1.2.840.114 [id number] Univers 00:00:00 00:00:00 Only Unassigned, MERLY 350.1.13.10 ity of [facility] 4.2.7.2.686 Bhavik as [phone] [address] 2021-07-27 2021-07-27 Telephone [facility]UN[facility] 1.2.836.395 [id number] [id number] Univers 00:00:00 00:00:00 Sendchely K.HLisa [place] 350.1.13.10 [place] [id number] [address] 2021-07-27 2021-07-27 Telephone L[facility]UN[facility] 1.2.709.690 [id number] 4433 Univers 00:00:00 00:00:00 Trey HEALTH 350.1.13.10 it y of [place] 4.2.7.2.686 Bhavik as ANIBAL?BLEA [id number] [address] OFFICE [facility] 2021-07-22 2021-07-22 Telephone [facility]UN[facility] 1.2.865.705 [id number] 7739 Univers 00:00:00 00:00:00 Sendil K.HLisa [place] 350.1.13.10 [place] [id number] [address] 2021-07-21 2021-07-21 Telephone [facility]UN[facility] 1.2.840.114 [id number] [id number] Univers 00:00:00 00:00:00 Wondiful A HE[facility] 350.1.13.10 [facility] 4.2.7.2.686 Bhavik as ANIBAL?BLEA [phone] [facility] [address] MEDICAL OFFICE [facility] 2021-07-21 2021-07-21 Telephone [facility] 1.2.840.114 [id number] Univers 00:00:00 00:00:00 Wondiful A HEALTH 350.1.13.10 [facility] 4.2.7.2.686 Bhavik as ANIBAL?BLEA [phone] [address] OFFICE [facility] 2021-07-20 2021-07-20 Telephone [facility] 1.2.840.114 [id number] Univers 00:00:00 00:00:00 Wondiful A HEALTH 350.1.13.10 ity of [place] 4.2.7.2.686 Bhavik as ANIBAL?BLEA [phone] [address] OFFICE [facility] 2021-07-18 2021-07-18 Orders Doctor GOYO 1.2.840.114 [id number] Univers 00:00:00 00:00:00 Only Unassigned, MERLY 350.1.13.10 ity of [place] [facility] 4.2.7.2.686 Bhavik as [phone] [address] 2021-07-08 2021-07-08 Telephone [facility] 1.2.840.114 [id number] Univers 00:00:00 00:00:00 Sherice LEVON 350.1.13.10 i ty [place] [phone] [address] 2021-07-07 2021-07-07 Telephone [facility] 1.2.840.114 [id number] Univers 00:00:00 00:00:00 Sherice LEVON 350.1.13.10 i ty [place] [phone] [address] 2021-07-05 2021-07-05 Anesthesia Rubae, 1.2.840.4 [id number] Univers 08:05:12 08:05:12 Event Ambrocio 81265.1.1 ity of 3.104.2.7 [place] .3.508143 Medica l .8 [place] 2021-07-05 2021-07-05 Outpatient R [facility] SAW [id number] Univers 06:45:00 07:53:00 SHERICE fortune [facility] 2021-07-05 2021-07-05 [facility], 1.2.840.8 [id number] Univers 06:45:00 07:53:00 Encounter Sherice 67398.1.1 it y of 3.104.2.7 [place] .3.880383 Medica l .8 [place] 2021-07-05 2021-07-05 Outpatient R [facility]UN[facility] SAW 70715 [id number] Univers 06:45:00 07:53:00 SHERICE fortune [facility] 2021-07-04 2021-07-04 Telephone Yulia, 1.2.840.5 [id number] Univers 00:00:00 00:00:00 Wondiful A 00945.1.1 i ty of 3.104.2.7 [place] .3.231560 Medica l .[address] [place] [address] 2021-07-02 2021-07-02 Laboratory Sherice Rodriguez 1.2.840.1 [id number] Univers 12:00:00 12:15:00 Only Only, Adc Test 13098.1.1 ity of 3.104.2.7 [place] .3.426203 Medica l .[address] [place] [address] 2021-07-02 2021-07-02 Outpatient R [facility] [id number] Univers 12:00:00 12:00:00 SHERICE fortune [facility] 2021-07-02 2021-07-02 Outpatient R [facility] [id number] Univers 12:00:00 12:00:00 SHERICE fortune [facility] 2021-07-01 2021-07-01 Orders Doctor GOYO 1.2.840.114 [id number] Univers 00:00:00 00:00:00 Only Unassigned, MERLY 350.1.13.10 ity of [place] [facility] 4.2.7.2.686 Bhavik as [phone] [facility] nuria [address] [place] 2021-06-30 2021-06-30 Travel 1.2.840.1 1.2.977.091 2267 1150 Univers 00:00:00 00:00:00 70352.1.1 350.1.13.10 ity of 3.104.2.7 4.[place].3.698 [place] .3.913284 084.8 Medica l .8 [place] 2021-06-23 2021-06-23 Telephone Rodriguez, 1.2.840.6 [id number] Univers 00:00:00 00:00:00 Sherice 08786.1.1 ity of 3.104.2.7 [place] .3.302024 Medica l .8 [place] 2021-06-23 2021-06-23 Telephone Hector, 1.2.840.4 [id number] [id number] Univers 00:00:00 00:00:00 Marley A 65141.1.1 ity of 3.104.2.7 [place] .3.932346 Medica l .8 [place] 2021-06-23 2021-06-23 Telephone [place], 1.2.840.7 [id number] Univers 00:00:00 00:00:00 Wondiful A 31802.1.1 i ty of 3.104.2.7 [place] .3.771311 Medica l .8 [place] 2021-06-22 2021-06-22 Outpatient Janessa BENDER [facility] [id number] Univers 10:53:35 23:59:00 WONDIFUL ity o f [facility] 2021-06-22 2021-06-22 Outpatient Janessa BENDER [facility] [id number] Univers 10:53:35 23:59:00 WONDIFUL ity o f [facility] 2021-06-22 2021-06-22 [facility] Yulia, 1.2.840.7 [id number] Univers 10:53:35 23:59:00 Encounter Wondiful A 32831.1.1 ity of 3.104.2.7 [place] .3.978451 Medica l .8 [place] 2021-06-20 2021-06-20 Outpatient R MICHAEL [facility] [id number] Univers 09:30:00 10:56:29 SHERICE fortune [facility] 2021-06-20 2021-06-20 Office [facility] 1.2.796.866 [id number] [id number] Univers 09:30:00 10:56:29 Visit Sherice RIDLEYCALLIE 350.1.13.10 i ty of [place].2.7.2.[place] [phone] Ne dical [address] 2021-06-20 2021-06-20 [facility] [id number] Univers 09:30:00 10:56:29 SHERICE fortune [facility] 2021-06-20 2021-06-20 Office Michael, 1.2.840.8 [id number] [id number] Univers 09:30:00 10:56:29 Visit Sherice 95205.1.1 ity of 3.104.2.7 [place] .3.402360 Medica l .8 [place] 2021-06-20 2021-06-20 Outpatient [facility] [id number] Univers 09:30:00 10:56:29 SHERICE fortune [facility] 2021-06-20 2021-06-20 Outpatient R [facility] [id number] Univers 09:30:00 10:56:29 SHERICE fortune [facility] 2021-06-20 2021-06-20 Orders Doctor GOYO 1.2.840.114 [id number] Univers 00:00:00 00:00:00 Only Unassigned, MERLY 350.1.13.10 ity of [place] [facility] 4.2.7.2.686 Bhavik as [phone] [address] 2021-06-20 2021-06-20 [facility] 1.2.840.114 [id number] Univers 00:00:00 00:00:00 Surgery Sherice LEVON 350.1.13.10 i ty [place] [phone] Ne dical NAL 188 [facility] 2021-06-20 2021-06-20 Prep For Michael, 1.2.840.2 [id number] Univers 00:00:00 00:00:00 Surgery Sherice 30315.1.1 ity of 3.104.2.7 [place] .3.529362 Medica l .8 [place] 2021-06-20 2021-06-20 Orders Doctor 1.2.840.9 [id number] Univers 00:00:00 00:00:00 Only Unassigned, 69552.1.1 ity of [place] 3.104.2.7 [place] .3.915625 Medica l .8 [place] 2021-06-20 2021-06-20 Travel 1.2.840.1 1.2.117.728 5389 0087 Univers 00:00:00 00:00:00 65893.1.1 350.1.13.10 ity of 3.104.2.7 4.[place].3.698 [place] .3.273481 084.8 Medica l .8 [place] 2021-06-14 2021-06-[address] [facility] [id number] Univers 09:20:00 09:20:[address] ity of [facility] 2021-06-09 2021-06-09 Telephone Outpatient, LORENA 1.2.840.114 [id number] Univers 00:00:00 00:00:00 Pm/Icd MERLY 350.1.13.10 it y of Check HOSPITAL 4.2.7.2.686 Bhavik as [phone] Medi nuria [address] [place] 2021-06-09 2021-06-09 Telephone Outpatient, 1.2.840.5 [id number] Univers 00:00:00 00:00:00 Pm/Icd 30874.1.1 ity of Check 3.104.2.7 [place] .3.138920 Medica l .8 [place] 2021-06-06 2021-06-06 Outpatient Janessa JENNINGS [facility] [id number] Univers 00:00:00 00:00:00 JOHN ity o f [facility] 2021-06-06 2021-06-06 Telephone [facility] 1.2.840.114 [id number] Univers 00:00:00 00:00:00 Wondiful A HEALTH 350.1.13.10 ity of [place] 4.2.7.2.686 Bhavik as ANIBAL?BLEA [phone] [address] OFFICE [facility] 2021-06-06 2021-06-06 Telephone Yulia, 1.2.840.9 [id number] Univers 00:00:00 00:00:00 Wondiful A 09098.1.1 i ty of 3.104.2.7 [place] .3.308496 Medica [address] 2021-06-02 2021-06-02 Orders Doctor GOYO 1.2.840.114 [id number] Univers 00:00:00 00:00:00 Only Unassigned, MERLY 350.1.13.10 ity of [place] [facility] 4.2.7.2.686 Bhavik as [phone] [address] 2021-06-02 2021-06-02 Orders Doctor 1.2.840.9 [id number] Univers 00:00:00 00:00:00 Only Unassigned, 66863.1.1 ity of [place] 3.104.2.7 [place] .3.639835 Medica [address] 2021-06-01 2021-06-01 [facility] 1.2.840.114 [id number] Univers 00:00:00 00:00:00 Wondiful A HEALTH 350.1.13.10 ity of [place] 4.2.7.2.686 Bhavik as ANIBAL?BLEA [id number] [address] 2021-06-01 2021-06-01 Refill Yulia, 1.2.840.9 [id number] [id number] Univers 00:00:00 00:00:00 Wondiful A 36086.1.1 i ty of 3.104.2.7 [place] .3.185696 Medica [address] 2021-05-31 2021-05-31 Telephone [facility] 1.2.840.114 [id number] [id number] Univers 00:00:00 00:00:00 Wondiful A HEALTH 350.1.13.10 [facility] 4.2.7.2.686 Bhavik as ANIBAL?BLEA [phone] Ne kyung KNEY 044 [facility] 2021-05-31 2021-05-31 Telephone Yulia, .2.840.5 [id number] Univers 00:00:00 00:00:00 Wondiful A 64925.1.1 i ty of 3.104.2.7 [place] .3.249653 Medica l .8 [place] 2021-05-26 2021-05-26 [facility] 1.2.045.653 3667 2736 Univers 00:00:00 00:00:00 [facility] 350.1.13.10 it[place].2.[place] [phone] Ne dicthomas NAL 059 [facility] 2021-05-26 2021-05-26 Telephone Manning, 1.2.840.6 [id number] [id number] Univers 00:00:00 00:00:00 Sendil K.H. 11526.1.1 ity of 3.104.2.7 [place] .3.103591 Medica l .8 [place] 2021-05-23 2021-05-23 Telephone [facility] 1.2.052.147 9120 [id number] Univers 00:00:00 00:00:00 Sendil K.H. LEVON 350.1.13.10 it[place].2.[place].2.[place] [phone] Ne dical NAL 059 [facility] 2021-05-23 2021-05-23 Telephone Manning, 1.2.840.5 [id number] [id number] Univers 00:00:00 00:00:00 Sendil K.H. 34145.1.1 ity of 3.104.2.7 [place] .3.177153 Medica l .8 [place] 2021-05-17 2021-05-17 Office Support Associate Monty Bender 1.2.840.1 1 [id number] Univers 15:45:00 16:33:49 Visit Lab, [place] 930[address].1.1 ity of 3.104.2.7 [place] .3.784592 Medica [address] 2021-05-17 2021-05-17 Office Support Associate Lab, Ang - Db [facility] 1.2.840.1 14 [id number] Univers 15:45:00 16:00:00 Visit Monty Bender HEALTH 350.1.13.1 0 ity of [place] 4.2.7.2.686 Bhavik as ANIBAL?BLEA [phone] Ne shanaethomas [place] 353 [facility] OFFICE [facility] 2021-05-17 2021-05-17 Outpatient [facility] [id number] Univers 15:45:00 15:45:00 WONDIFUL ity o f [facility] 2021-05-17 2021-05-17 Outpatient R [facility] [id number] Univers 15:45:00 15:45:00 WONDIFUL ity o f [facility] 2021-05-17 2021-05-17 Office [facility] 1.2.840.114 [id number] Univers 14:30:00 15:31:43 Visit Monty Cerrato HEALTH 350.1.13.10 ity of [place] 4.2.7.2.686 Bhavik as ANIBAL?BLEA [id number] Ne [facility]ethomas [facility] 044 [facility] OFFICE [facility] 2021-05-17 2021-05-17 Office Yulia, 1.2.840.4 [id number] [id number] Univers 14:30:00 15:31:43 Visit Monty Cerrato 56068.1.1 i ty of 3.104.2.7 [place] .3.073908 Medica [address] 2021-05-17 2021-05-17 Travel 1.2.840.1 1.2.580.646 6215 0394 Univers 00:00:00 00:00:00 99428.1.1 350.1.13.10 ity of 3.104.2.7 4[place].7.3.698 [place] .3.030752 084.8 Medica l .8 [place] 2021-05-05 2021-05-05 Outpatient R [facility] [id number] Univers 14:30:00 14:30:00 SENDIL ity [facility] 2021-05-05 2021-05-05 Office Support Associate 2, Adc Lab [facility] 1.2.840.114 [id number] Univers 14:30:00 14:30:00 Visit Thomas Manning 350.1.13. 10 ity of [place] 4.2.7.2.686 [place] [phone] Ne dical NAL 353 [facility] 2021-05-05 2021-05-05 Office Support Associate Thomas Manning 1.2.840.1 1 [id number] Univers 14:30:00 14:30:00 Visit 2, Adc Lab 43169.1.1 i ty of 3.104.2.7 [place] .3.077495 Medica l .8 [place] 2021-05-05 2021-05-05 [facility] 1.2.840.114 [id number] Univers 13:00:00 14:25:20 Visit Thomas DOS SANTOS 350.1.13.10 ity of [place] 4.2.7.2.686 [place] [phone] Ne dical NAL 059 [facility] 2021-05-05 2021-05-05 Outpatient R [facility] [id number] Univers 13:00:00 14:25:20 SENDIL ity [facility] 2021-05-05 2021-05-05 Outpatient R [facility] [id number] Univers 13:00:00 14:25:20 SENDIL ity [facility] 2021-05-05 2021-05-05 Office [facility] 1.2.840.114 [id number] Univers 13:00:00 14:25:20 Visit Thomas DOS SANTOS 350.1.13.10 it[place] 4.2.7.2.686 [place] [phone] Ne dical NAL 059 [facility] 2021-05-05 2021-05-05 Office Nigel, 1.2.840.9 [id number] 007 Univers 13:00:00 14:25:20 Visit Sendil JesusHLisa 09947.1.1 ity of 3.104.2.7 [place] .3.209540 Medica l .8 [place] 2021-05-05 2021-05-05 Outpatient R [facility] [id number] Univers 13:00:00 13:00:00 SENDIL ity of [facility] 2021-05-05 2021-05-05 Travel 1.2.840.1 1.2.409.577 [id number] [id number] Univers 00:00:00 00:00:00 28891.1.1 350.1.13.10 ity of 3.104.2.7 [place].7.3.698 [place] .3.328632 084.8 Medica l [address] [place] [address] 2021-05-02 2021-05-02 Outpatient R [facility] [id number] Univers 14:00:00 14:00:00 SENDIL ity of [facility] 2021-04-29 2021-04-29 Telephone [facility] 1.2.840.114 [id number] Univers 00:00:00 00:00:00 Wondiful A HEALTH 350.1.13.10 ity of [place] 4.2.7.2.686 Bhavik as ANIBAL?BLEA [phone] Ne dical KNEY 044 [facility] OFFICE [facility] 2021-04-29 2021-04-29 Telephone Yulia, 1.2.840.2 [id number] Univers 00:00:00 00:00:00 Wondiful A 06866.1.1 i ty of 3.104.2.7 [place] .3.387486 Medica l .8 [place] 2021-04-27 2021-04-27 Telephone [facility] 1.2.840.114 [id number] [id number] Univers 00:00:00 00:00:00 Dong SPECIALTY 350.1.13.10 ity of [place]2.7.2.686 [place] C[place] AT [phone] Ne dicthomas COFFMANY 072 [facility] 2021-04-27 2021-04-27 Telephone Greg, 1.2.840.2 [id number] Univers 00:00:00 00:00:00 Dong 05108.1.1 ity of 3.104.2.7 [place] .3.171864 Medica l .8 [place] 2021-04-26 2021-04-26 Telephone [facility] 1.2.358.046 [id number] 8702 Univers 00:00:00 00:00:00 Sendil Chapis DOS SANTOS 350.1.13.10 ity of [place] 4.2.7.2.686 [place] [facility] [phone] Ne kyung NAL 059 [facility] 2021-04-26 2021-04-26 Telephone Nigel, 1.2.840.8 [id number] [id number] Univers 00:00:00 00:00:00 Sendil K.HLisa 56613.1.1 ity of 3.104.2.7 [place] .3.276362 Medica l .8 [place] 2021-04-25 2021-04-25 Outpatient R NIGEL [facility] [id number] Univers 09:00:00 09:00:00 SENDIL ity of [facility] 2021-04-06 2021-04-06 Telephone [facility] 1.2.840.114 [id number] Univers 00:00:00 00:00:00 Wondiful A HEALTH 350.1.13.10 ity of [place] 4.2.7.2.686 Bhavik as ANIBAL?BLEA [phone] Ne kyung RONALDO [address] [place] MEDICAL OFFICE [facility] 2021-04-05 2021-04-05 Outpatient R EDE [facility] [id number] Univers 10:00:00 23:59:00 ISAEL ity of [facility] 2021-04-05 2021-04-05 [facility] 1.2.840.114 [id number] Univers 10:00:00 23:59:00 Encounter [facility] 350.1.13.10 [place].2.[place].2.[place] [phone] Ne shanaethomas WHITNEY 844 [facility] 2021-04-05 2021-04-05 Outpatient R EDE [facility] [id number] Univers 10:00:00 23:59:00 ISAEL ity of [facility] 2021-04-04 2021-04-04 Telephone Ariana [facility] 1.2.840.114 [id number] Univers 00:00:00 00:00:00 [facility] 350.1.13.10 ity of [place] 4.2.7.2.686 Bhavik as ANIBAL?BLEA [id number] Ne shanaethomas BESSIENARDA [address] [place] MEDICAL OFFICE [facility] 2021-03-22 2021-03-22 Outpatient [facility] [id number] Univers 10:20:00 10:20:00 ISAEL ity of [facility] 2021-03-22 2021-03-22 Outpatient [facility] [id number] Univers 10:20:00 10:20:00 ISAEL ity [facility] 2021-03-22 2021-03-22 Telephone [facility] 1.2.840.114 [id number] Univers 00:00:00 00:00:00 [facility] A HEALTH 350.1.13.10 ity of [place] 4.2.7.2.686 Bhavik as ANIBAL?BLEA [phone] Ne shanaethomas BESSIE [address] [place] MEDICAL OFFICE [facility] 2021-03-22 2021-03-22 Orders Doctor NANCE 1.2.840.114 [id number] Univers 00:00:00 00:00:00 Only Unassigned, MERLY 350.1.13.10 ity of [place] [facility] 4.2.7.2.686 Bhavik as [phone] [address] 2021-03-07 2021-03-07 Outpatient R NIGEL [facility] [id number] Univers 14:00:00 14:00:00 SENDIL ity of [facility] 2021-03-07 2021-03-07 Outpatient R [facility] [id number] Univers 14:00:00 14:00:00 SENDIL ity [facility] 2021-03-07 2021-03-07 Refill [facility] 1.2.840.114 [id number] Univers 00:00:00 00:00:00 Wondiful A HEALTH 350.1.13.10 ity of [place] 4.2.7.2.686 Bhavik as PROFESSIO [id number] Ne kyung OLSON [address] [place] [address] OFFICE [facility] 2021-02-28 2021-02-28 Case [facility] 1.2.840.114 [id number] Univers 00:00:00 00:00:00 Management Wondiful A HEALTH 350.1.13.10 ity of [place] 4.2.7.2.686 Bhavik as ANIBAL?BLEA [phone] Ne kyung HIGGINS [address] [place] [address] OFFICE [facility] 2021-02-22 2021-02-22 Outpatient Janessa MERA [facility] [id number] Univers 09:20:00 09:20:00 ISAEL ity [facility] 2021-02-15 2021-02-15 Office Support Associate Lab, Ang - Db [facility] 1.2.840.1 14 [id number] Univers 14:02:30 14:25:53 Visit Monty Bender A Health 350.1.13.1 0 ity of [place] 4.2.7.2.686 Bhavik as Anibal?Blea [phone] Ne kyung higgins 353 [facility] Office [facility] 2021-02-15 2021-02-15 Outpatient R YULIA [facility] [id number] Univers 14:00:00 14:25:53 WONDIFUL ity o f [facility] 2021-02-15 2021-02-15 Office [facility] 1.2.840.114 [id number] Univers 12:42:40 13:39:30 Visit Wondiful A HEALTH 350.1.13.10 ity of [place] 4.2.7.2.686 Bhavik as ANIBAL?BLEA [phone] Ne kyung HIGGINS [address] [place] [address] OFFICE [facility] 2021-02-11 2021-02-11 Outpatient R YULIA [facility] [id number] Univers 14:15:00 14:15:00 WONDIFUL ity o f [facility] 2021-02-10 2021-02-10 Telephone [facility] 1.2.770.052 [id number] Univers 00:00:00 00:00:00 Sendil Chapis Dos [place] 350.1.13.10 ity of [place].2.7.2.686 [place] [facility] [phone] Ne dical nal [address] [facility] 2021-02-10 2021-02-10 Orders Doctor GOYO 1.2.840.114 [id number] Univers 00:00:00 00:00:00 Only Unassigned, MERLY 350.1.13.10 [facility] 4.2.7.2.686 Bhavik [phone] [facility] [address] 2021-02-08 2021-02-08 Outpatient [facility] [id number] Univers 11:00:00 11:00:00 SENDIL ity [facility] 2021-02-08 2021-02-08 Outpatient [facility] [id number] Univers 11:00:00 11:00:00 SENDIL ity [facility] 2021-02-07 2021-02-07 [facility] 1.2.840.114 [id number] Univers 14:47:22 23:59:00 Encounter Thomas Dos [place] 350.1.13.10 ity [facility] 4.2.7.2.686 [facility] [phone] [facility] [address] 2021-02-07 2021-02-07 Outpatient [facility] [id number] Univers 00:00:00 00:00:00 SENDIL ity [facility] 2021-01-31 2021-01-31 [facility] 1.2.261.862 [id number] Univers 10:00:00 23:59:00 Encounter Sudhir Dos [place] 350.1.13.10 ity of [place] 4.2.7.2.686 [facility] [phone] [facility] [address] [place] 2021-01-31 2021-01-[address] [facility] [id number] Univers 00:00:00 00:00:[address] stephaniebrittny [facility] 2021-01-31 2021-01-31 Orders Doctor GOYO 1.2.840.114 [id number] Univers 00:00:00 00:00:00 Only Unassigned, MERLY 350.1.13.10 ity of [place] [facility] 4.2.7.2.686 Bhavik as [phone] [address] 2021-01-19 2021-01-19 Outpatient Janessa MANNING [facility] [id number] Univers 10:00:00 10:00:00 SENDIL brittny [facility] 2021-01-18 2021-01-18 Outpatient Janessa MONSALVESUDHIR Bone [facility] [id number] Univers 00:00:00 00:00:00 ARIANASUDHIR Bone brittny [facility] 2021-01-12 2021-01-12 Outpatient Janessa MANNING [facility] [id number] Univers 09:00:00 [facility] 2021-01-11 2021-01-11 Office Ariana [facility] 1.2.840.114 [id number] Univers 13:03:08 14:34:15 Visit Sudhir [facility] 350.1.13.10 ity of [place] 4.2.7.2.686 Bhavik as Anibal?Blea [phone] [address] Medical Office Building 2021-01-11 2021-01-11 Outpatient SUDHIR QUEVEDO [facility] [id number] Univers 13:00:00 13:00:[address] stephaniebrittny [facility] 2021-01-05 2021-01-05 Orders Doctor GOYO 1.2.840.114 [id number] Univers 00:00:00 00:00:00 Only Unassigned, MERLY 350.1.13.10 it[place] of [place] [facility] 4.2.7.2.686 Bhavik as [phone] [address] 2020-12-28 2020-12-28 Refill [facility] 1.2.840.114 [id number] Univers 00:00:00 00:00:00 Wondiful A Health 350.1.13.10 ity of [place] 4.2.7.2.686 Bhavik as Professio [phone] Ne dical nal [address] [place] Office [facility] One 2020-12-22 2020-12-22 Refarabella [facility]UN[facility] 1.2.840.114 [id number] Univers 00:00:00 00:00:00 Wondiful A Health 350.1.13.10 ity of [place] 4.2.7.2.686 Bhavik as Professio [phone] Ne dical nal 044 [facility] 2020-12-20 2020-12-20 Office [facility] 1.2.840.114 [id number] Univers 09:15:32 10:23:50 Visit Thomas Dos Santos 350.1.13.10 ity of [place]2.7.2.[place] Profess[place] [phone] Ne dical nal 059 [facility] 2020-12-20 2020-12-20 Outpatient [facility] [id number] Univers 09:00:00 10:23:50 SENDIL ity of [facility] 2020-12-20 2020-12-20 Office [facility] 1.2.840.114 [id number] Univers 09:00:00 10:23:50 Visit Thomas DOS SANTOS 350.1.13.10 [place].2.[place] PROFESS[place] [phone] Ne dical NAL 059 [facility] 2020-12-20 2020-12-20 Orders Doctor GOYO 1.2.840.114 [id number] Univers 00:00:00 00:00:00 Only Unassigned, MERLY 350.1.13.10 ity of [place] [facility] 4.2.7.2.686 Bhavik as [phone] [address] 2020-12-16 2020-12-16 Abstract Maura Roach [facility] 1.2.84 0.114 [id number] [place] 00:00:00 00:00:00 Maura Roach [facility] 350.1.13.58 Health [place] 2 9.2.7.2.686 [id number] 1 2020-12-08 2020-12-08 Orders Doctor GOYO 1.2.840.114 [id number] Univers 00:00:00 00:00:00 Only Unassigned, MERLY 350.1.13.10 ity of [place] [facility] 4.2.7.2.686 Bhavik as [phone] [address] 2020-12-07 2020-12-07 Outpatient SUDHIR QUEVEDO [facility] [id number] Univers 09:20:00 09:20:[address] [facility] 2020-12-01 2020-12-01 Refarabella Bender [facility] 1.2.840.[id number] [facility] 00:00:00 00:00:00 Wondiful A Health 350.1.13.10 ity of [place] 4.2.7.2.686 Bhavik as Professio [phone] [address] One 2020-11-26 2020-11-26 Outpatient SUDHIR QUEVEDO [facility] [id number] Univers 14:20:00 14:20:[address] [facility] 2020-11-17 2020-11-17 Abstract Shi Porter [facility] 1.2.840.11 4 [id number] [place] 00:00:00 00:00:00 Shi Porter [facility] 350.1.13.58 Health [place] 2 9.2.7.2.686 [id number] 2 2020-11-16 2020-11-16 Carmen Bender [facility] 1.2.840.114 [id number] Univers 00:00:00 00:00:00 Wondiful A Health 350.1.13.10 ity of [place] 4.2.7.2.686 Bhavik as Professio [phone] [address] Office [facility] One 2020-11-10 2020-11-10 Case Yulia [facility] 1.2.840.114 [id number] Univers 00:00:00 00:00:00 Management Wondiful A Health 350.1.13.10 ity of [place] 4.2.7.2.686 Bhavik as Professio [phone] [address] Office [facility] One 2020-11-09 2020-11-09 Orders Doctor GOYO 1.2.840.114 [id number] Univers 00:00:00 00:00:00 Only Unassigned, MERLY 350.1.13.10 ity of [place] [facility] 4.2.7.2.686 Bhavik as [phone] [address] 2020-11-08 2020-11-08 Office Support Associate Lab, [facility] Po I [facility] 1.2. 840.114 [id number] Univers 16:09:23 16:29:23 Visit Monty Bender Health 350.1.13.1 0 ity of [place] 4.2.7.2.686 Bhavik as Professio [phone] [address] Office [facility] One 2020-11-08 2020-11-08 Office [facility] 1.2.840.114 [id number] Univers 14:59:49 16:07:50 Visit Wondiful A Health 350.1.13.10 ity of [place] 4.2.7.2.686 Bahvik as Professio [phone] [address] Office [facility] One 2020-11-08 2020-11-08 Outpatient R YULIA [facility] [id number] Univers 15:00:00 15:00:00 WONDIFUL ity o f [facility] 2020-11-08 2020-11-08 Outpatient R YULIA [facility] [id number] Univers 15:00:00 15:00:00 WONDIFUL ity o f [facility] 2020-11-03 2020-11-03 Refill [facility] 1.2.840.114 [id number] Univers 00:00:00 00:00:00 [facility] 350.1.13.10 ity of [place] 4.2.7.2.686 Bhavik as Professio [phone] [facility] 044 [facility] One 2020-10-26 2020-10-26 Refill Yulia [facility] 1.2.840.114 [id number] Univers 00:00:00 00:00:00 [facility] 350.1.13.10 ity of [place] 4.2.7.2.686 Bhavik as Professio [phone] [address] One 2020-10-20 2020-10-20 Orders Doctor GOYO 1.2.840.114 [id number] Univers 00:00:00 00:00:00 Only Unassigned, MERLY 350.1.13.10 ity of [place] [facility] 4.2.7.2.686 Bhavik as [phone] [address] 2020-10-15 2020-10-15 [facility] [id number] Univers 13:15:00 13:15:00 WONDIFUL ity o f [facility] 2020-10-13 2020-10-13 Outpatient R IVY [facility] [id number] Univers 15:30:00 15:30:00 ARTEMIO ity of [facility] 2020-10-12 2020-10-12 Orders Doctor GOYO 1.2.840.114 [id number] Univers 00:00:00 00:00:00 Only Unassigned, MERLY 350.1.13.10 ity of [place] [facility] 4.2.7.2.686 Bhavik as [phone] [address] 2020-10-04 2020-10-04 Outpatient R [facility] [id number] Univers 14:30:00 14:30:00 ity of [facility] 2020-09-30 2020-09-30 Orders Doctor GOYO 1.2.840.114 [id number] Univers 00:00:00 00:00:00 Only Unassigned, MERLY 350.1.13.10 ity of [place] [facility] 4.2.7.2.686 Bhavik as [phone] [address] 2020-09-28 2020-09-28 Carmen Bender [facility] 1.2.840.114 [id number] Univers 00:00:00 00:00:00 [facility] 350.1.13.10 ity of [place] 4.2.7.2.686 Bhavik as Professio [phone] [address] One 2020-09-23 2020-09-23 Telemedici [facility] 1.2.840.114 [id number] Univers 17:37:40 17:57:36 ne Visit [facility] 350.1.13.10 ity of [place] 4.2.7.2.686 Bhavik as Professio [phone] [address] One 2020-09-23 2020-09-23 Outpatient R YULIA [facility] [id number] Univers 16:30:00 16:30:00 WONDIFUL ity o f [facility] 2020-09-21 2020-09-21 Outpatient R IVY [facility] [id number] Univers 15:30:00 15:30:00 ARTEMIO ity of [facility] 2020-09-17 2020-09-17 Refarabella [facility] 1.2.840.114 [id number] Univers 00:00:00 00:00:00 [facility] 350.1.13.10 ity of [place] 4.2.7.2.686 Bhavik as Professio [phone] [address] One 2020-09-17 2020-09-17 Billy [facility] 1.2.840.114 [id number] Univers 00:00:00 00:00:00 [facility] 350.1.13.10 ity of [place] 4.2.7.2.686 Bhavik as Professio [phone] [address] One 2020-09-17 2020-09-17 Billy [facility] 1.2.840.114 [id number] Univers 00:00:00 00:00:00 [facility] 350.1.13.10 ity of [place] 4.2.7.2.686 Bhavik as Professio [phone] [address] Office [facility] One 2020-09-17 2020-09-17 Orders Doctor GOYO 1.2.840.114 [id number] Univers 00:00:00 00:00:00 Only Unassigned, MERLY 350.1.13.10 ity of [place] [facility] 4.2.7.2.686 Bhavik as [phone] [facility] [address] 2020-09-15 2020-09-15 [facility] 1.2.031.876 [id number] Univers 09:23:51 23:59:00 Encounter Wondiful A [place] 350.1.13.10 ity of [place] 4.2.7.2.686 [facility] [phone] [facility] [address] 2020-09-15 2020-09-15 Outpatient R [facility] [id number] Univers 09:24:32 09:22:00 WONDIFUL ity o f [facility] 2020-09-15 2020-09-15 [facility] 1.2.928.247 [id number] Univers 09:20:00 09:22:00 Encounter Wondiful A [place] 350.1.13.10 ity of [place] 4.2.7.2.686 [facility] [phone] [facility] [address] 2020-09-15 2020-09-15 [facility] 1.2.895.810 [id number] Univers 09:00:00 09:19:00 Encounter Wondiful A [place] 350.1.13.10 ity of [place] 4.2.7.2.686 [facility] [phone] [facility] [address] 2020-09-15 2020-09-15 Outpatient R [facility] [id number] Univers 00:00:00 00:00:00 WONDIFUL ity o f [facility] 2020-09-15 2020-09-15 Orders Doctor NANCE 1.2.840.114 [id number] Univers 00:00:00 00:00:00 Only Unassigned, MERLY 350.1.13.10 ity of [place] [facility] 4.2.7.2.686 Bhavik as [phone] [address] 2020-09-08 2020-09-08 Outpatient [facility] [id number] Univers 00:00:00 00:00:00 WONDIFUL ity o f [facility] 2020-09-07 2020-09-07 Billy [facility]UN[facility] 1.2.840.114 [id number] Univers 00:00:00 00:00:00 Wondiful A [place] 350.1.13.10 ity of [place].7.2.[place] Profess[place] [phone] Ne [address] 2020-09-03 2020-09-03 Outpatient [facility] [id number] Univers 00:00:00 00:00:[address] [facility] 2020-09-01 2020-09-01 Outpatient [facility] [id number] Univers 15:30:00 15:30:[address] [facility] 2020-09-01 2020-09-01 Orders Doctor NANCE 1.2.840.114 [id number] Univers 00:00:00 00:00:00 Only Unassigned, MERYL 350.1.13.10 ity of [facility] 4.2.7.2.686 Bhavik as [phone] [address] 2020-08-31 2020-08-31 Outpatient [facility] [id number] Univers 13:30:00 13:30:[address] [facility] 2020-08-31 2020-08-31 Outpatient [facility] [id number] Univers 13:30:00 13:30:[address] [facility] 2020-08-27 2020-08-27 Outpatient R [facility] [id number] Univers 10:40:00 10:40:[address] [facility] 2020-08-27 2020-08-27 Billy eBnderUNM [facility] 1.2.840.114 [id number] Univers 00:00:00 00:00:00 [facility] 350.1.13.10 ity of [place] 4.2.7.2.686 Bhavik as Professio [phone] Ne dical nal [address] One 2020-08-27 2020-08-27 Telephone [facility] 1.2.840.114 [id number] Univers 00:00:00 00:00:00 Wondiful A [place] 350.1.13.10 ity of [place] [phone] Ne dical nal 231 [facility] 2020-08-24 2020-08-24 Outpatient R [facility] [id number] Univers 10:30:00 10:30:[address] [facility] 2020-08-24 2020-08-24 [facility] [id number] Univers 10:30:00 10:30:00 MARIELA dennison [facility] 2020-08-19 2020-08-19 Outpatient [facility] [id number] Univers 00:00:00 00:00:[address] [facility] 2020-08-19 2020-08-19 Orders Doctor GOYO 1.2.840.114 [id number] Univers 00:00:00 00:00:00 Only Unassigned, MERLY 350.1.13.10 ity of [place] [facility] 4.2.7.2.686 Bhavik as [phone] [address] 2020-08-17 2020-08-17 Outpatient R [facility] [id number] Univers 15:30:00 15:30:00 ARTEMIO fortune of [facility] 2020-08-17 2020-08-17 Orders Doctor NANCE 1.2.840.114 [id number] Univers 00:00:00 00:00:00 Only Unassigned, MERLY 350.1.13.10 ity of [place] [facility] 4.2.7.2.686 Bhavik as [phone] [address] 2020-08-11 2020-08-11 Orders Doctor GOYO Blackman.2.840.114 [id number] Univers 00:00:00 00:00:00 Only Unassigned, MERLY 350.1.13.10 ity of [place] [facility] 4.2.7.2.686 Bhavik as [phone] [address] 2020-08-05 2020-08-05 Outpatient R YULIA [facility] [id number] Univers 00:00:00 00:00:00 WONDIFUL ity o f [facility] 2020-08-03 2020-08-03 Telephone [facility] 1.2.840.114 [id number] Univers 00:00:00 00:00:00 [facility] 350.1.13.10 ity of [place] 4.2.7.2.686 Bhavik as Professio [phone] [address] Office [facility] One 2020-07-30 2020-07-30 Orders Doctor GOYO 1.2.840.114 [id number] Univers 00:00:00 00:00:00 Only Unassigned, MERLY 350.1.13.10 [place] [facility] 4.2.7.2.686 Bhavik as [phone] [address] 2020-07-29 2020-07-29 Outpatient [facility] [id number] Univers 00:00:00 00:00:[address] [facility] 2020-07-29 2020-07-29 Outpatient R YULIA [facility] [id number] Univers 00:00:00 00:00:00 WONDIFUL ity o f [facility] 2020-07-27 2020-07-27 Outpatient R IVY [facility] [id number] Univers 15:30:00 15:30:00 ARTEMIO ity of [facility] 2020-07-23 2020-07-23 Outpatient R VIRA [facility] [id number] Univers 11:00:00 11:00:[address] [facility] 2020-07-21 2020-07-21 Outpatient R YULIA [facility] [id number] Univers 00:00:00 00:00:00 WONDIFUL ity o f [facility] 2020-07-20 2020-07-20 Carmen [facility]UN[facility] 1.2.840.114 [id number] Univers 00:00:00 00:00:00 [facility] 350.1.13.10 ity of [place] 4.2.7.2.686 Bhavik as Professio [phone] [address] One 2020-07-14 2020-07-14 Telephone [facility] 1.2.840.114 [id number] Univers 00:00:00 00:00:00 [facility] 350.1.13.10 ity of [place] 4.2.7.2.686 Bhavik as Professio [phone] [address] One 2020-07-12 2020-07-12 Telemedici [facility] 1.2.840.114 [id number] Univers 16:23:54 18:04:20 ne Visit [facility] 350.1.13.10 ity of [place] 4.2.7.2.686 Bhavik as Professio [phone] [address] One 2020-07-12 2020-07-12 Outpatient [facility] [id number] Univers 16:00:00 16:00:00 WONDIFUL ity o f [facility] 2020-07-12 2020-07-12 Orders Doctor GOYO 1..840.114 [id number] Univers 00:00:00 00:00:00 Only Unassigned, MERLY 350.1.13.10 ity of [place] [facility] 4.2.7.2.686 Bhavik as [phone] [address] 2020-07-12 2020-07-12 Refill [facility] 1.2.840.114 [id number] Univers 00:00:00 00:00:00 [facility] 350.1.13.10 ity of [place] 4.2.7.2.686 Bhavik as Professio [phone] [address] Office [facility] One 2020-07-12 2020-07-12 Case Yulia [facility] 1.2.840.114 [id number] Univers 00:00:00 00:00:00 Management [facility] 350.1.13.10 ity of [place] 4.2.7.2.686 Bhavik as Professio [phone] [address] Office [facility] One 2020-07-05 2020-07-05 Orders Doctor NANCE 1.2.840.114 [id number] Univers 00:00:00 00:00:00 Only Unassigned, MERLY 350.1.13.10 [place] [facility] 4.2.7.2.686 Bhavik as [phone] [address] 2020-07-02 2020-07-02 Refill Yulia [facility] 1.2.840.114 [id number] Univers 00:00:00 00:00:00 [facility] 350.1.13.10 ity of [place] 4.2.7.2.686 Bhavik as Professio [phone] [address] Office [facility] One 2020-06-30 2020-06-30 Telephone IRON Bender 1.2.840.114 [id number] Univers 00:00:00 00:00:00 [facility] 350.1.13.10 ity of [place] 4.2.7.2.686 Bhavik as Professio [phone] [address] Office [facility] One 2020-06-30 2020-06-30 IRON [place] 1.2.840.114 [id number] Univers 00:00:00 00:00:00 Management [facility] 350.1.13.10 ity of [place] 4.2.7.2.686 Bhavik as Professio [phone] [facility] nal [address] [place] [address] Office Building One 2020-06-28 2020-06-28 Telephone IRON Bender 1.2.840.114 [id number] Univers 00:00:00 00:00:00 [facility] 350.1.13.10 ity of [place] 4.2.7.2.686 Bhavik as Professio [phone] [address] Office Building One 2020-06-25 2020-06-25 GOYO Martinez 1.2.840.114 [id number] Univers 00:00:00 00:00:00 Only Wondiful A [place] 350.1.13.10 ity of HOSPITAL 4.2.7.2.686 Bhavik as [phone] [address] 2020-06-23 2020-06-23 Telephone Yulia [facility] 1.2.840.114 [id number] Univers 00:00:00 00:00:00 [facility] 350.1.13.10 ity of [place] 4.2.7.2.686 Bhavik as Professio [phone] [address] Office [facility] One 2020-06-23 2020-06-23 Telephone Yulia [facility] 1.2.840.114 [id number] Univers 00:00:00 00:00:00 [facility] 350.1.13.10 ity of [place] 4.2.7.2.686 Bhavik as Professio [phone] [address] Office [facility] One 2020-06-18 2020-06-18 Orders Doctor GOYO 1.2.840.114 [id number] Univers 00:00:00 00:00:00 Only Unassigned, MERLY 350.1.13.10 ity of [place] [facility] 4.2.7.2.686 Bhavik as [phone] [address] 2020-06-15 2020-06-15 Office Yulia [facility] 1.2.840.114 [id number] Univers 12:59:37 14:06:48 Visit [facility] 350.1.13.10 ity of [place] 4.2.7.2.686 Bhavik as Professio [phone] [address] Office [facility] One 2020-06-15 2020-06-15 Outpatient R YULIA TXANNALISE [facility] [id number] Univers 13:00:00 13:00:00 WONDIFUL ity o f [facility] 2020-06-15 2020-06-15 Patient Tyree TXANNALISE 1.2.840.114 [id number] Univers 00:00:00 00:00:00 Outreach Elicia L Health 350.1.13.10 i ty of [place] 4.2.7.2.686 Bhavik as Professio [phone] [address] Office Building One 2020-06-14 2020-06-14 Outpatient R YULIA [facility] [id number] Univers 15:00:00 15:00:00 WONDIFUL ity o f [facility] 2020-06-03 2020-06-03 Telephone Yulia [facility] 1.2.840.114 [id number] Univers 00:00:00 00:00:00 [facility] A Health 350.1.13.10 ity of [place] 4.2.7.2.686 Bhavik as Professio [phone] [address] Office Building One 2020-06-03 2020-06-03 Telephone Yulia [facility] 1.2.840.114 [id number] 00:00:00 00:00:00 [facility] A Health 350.1.13.10 [place] 4.2.7.2.686 Professio [phone] [place] [address] Office Building One 2020-06-01 2020-06-01 Orders Doctor GOYO 1.2.840.114 [id number] Univers 00:00:00 00:00:00 Only Unassigned, MERLY 350.1.13.10 [place] [facility] 4.2.7.2.686 Bhavik as [phone] [address] 2020-05-27 2020-05-27 Telephone Yulia [facility] 1.2.840.114 [id number] Univers 00:00:00 00:00:00 [facility] A Health 350.1.13.10 ity of [place] 4.2.7.2.686 Bhavik as Professio [phone] [address] Office Building One 2020-05-27 2020-05-27 Telephone Yulia [facility] 1.2.840.114 [id number] 00:00:00 00:00:00 W[facility] A Health 350.1.13.10 [place] 4.2.7.2.686 Professio [phone] [place] [address] Office Building One 2020-05-212020-05-21 Telephone Yulia [facility] 1.2.840.114 [id number] Univers 00:00:00 00:00:00 W[facility] A Health 350.1.13.10 ity of [place] 4.2.7.2.686 Bhavik as Professio [phone] Ne shanaene whitney [address] Office [facility] One 2020-05-21 2020-05-21 Telephone Yulia [facility] 1.2.840.114 [id number] 00:00:00 00:00:00 W[facility]iful A Health 350.1.13.10 [place] 4.2.7.2.686 Professio [phone] nal [facility] One 2020-05-12 2020-05-12 Orders Doctor GOYO 1.2.840.[id number] [facility] 00:00:00 00:00:00 Only Unassigned, MERLY 350.1.13.10 ity [facility] [place] [facility] 4.2.7.2.686 Bhavik as [phone] [address] 2020-05-12 2020-05-12 Orders Doctor GOYO 1.2.840.114 [id number] 00:00:00 00:00:00 Only Unassigned, MERLY 350.1.13.10 [place] [facility] [id number] [facility] 2020-05-11 2020-05-11 Outpatient R YULIA [facility] [id number] Univers 11:30:00 11:30:00 WONDIFUL ity o f [facility] 2020-05-07 2020-05-07 Telephone [facility] 1.2.840.114 [id number] Univers 00:00:00 00:00:00 Dong SPECIALTY 350.1.13.10 ity [place] [phone] Ne shanaethomas STEPHENS 072 [facility] 2020-05-07 2020-05-07 Telephone [facility] 1.2.840.114 [id number] 00:00:00 00:00:00 Dong SPECIALTY 350.1.13.10 CARE 4.2.7.2.686 CENTER AT [phone] ANGELO Flor2 [facility] 2020-05-05 2020-05-05 Refarabella [facility] 1.2.840.114 [id number] Univers 00:00:00 00:00:00 Wondiful A Health 350.1.13.10 ity of [place] 4.2.7.2.686 Bhavik as Professio [phone] [address] Office [facility] 2020-04-27 2020-04-27 Hospital [facility] 1.2.840.114 [id number] Univers 08:00:00 14:40:00 Encounter Dong ICAL 350.1.13.10 ity of SCIENCES 4.2.7.2.686 Bhavik as BLDG [phone] [facility] [address] 2020-04-27 2020-04-27 Orders Doctor NANCE 1.2.840.114 [id number] Univers 00:00:00 00:00:00 Only Unassigned, MERLY 350.1.13.10 [facility] [place] [facility] 4.2.7.2.686 Bhavik as [phone] [facility] [address] 2020-04-12 2020-04-12 Refarabella [facility] 1.2.840.114 [id number] Univers 00:00:00 00:00:00 Wondiful A Health 350.1.13.10 ity of [place] 4.2.7.2.686 Bhavik as Professio [phone] [address] 2020-04-09 2020-04-09 Billy [facility] 1.2.840.114 [id number] Univers 00:00:00 00:00:00 Wondiful A Health 350.1.13.10 ity of [place] 4.2.7.2.686 Bhavik as Professio [phone] [address] One 2020-03-30 2020-03-30 Appointmen JUANITA PALACIOS [id number] [place] 14:00:00 14:00:00 t; PHILIP, PRATEEK Phys ici DEVICE ans 2020-03-29 2020-03-29 Orders Doctor GOYO 1.2.840.114 [id number] Univers 00:00:00 00:00:00 Only Unassigned, MERLY 350.1.13.10 ity of [place] [facility] 4.2.7.2.686 Bhavik as [phone] [address] 2020-03-20 2020-03-20 Billy [facility] 1.2.840.114 [id number] Univers 00:00:00 00:00:00 Wondiful A Health 350.1.13.10 ity of [place] 4.2.7.2.686 Bhavik as Professio [phone] [facility] [address] Office [facility] One 2020-03-15 2020-03-15 Orders Doctor GOYO 1.2.840.114 [id number] Univers 00:00:00 00:00:00 Only Unassigned, MERLY 350.1.13.10 [facility] [place] [facility] 4.2.7.2.686 Bhavik as [phone] [address] 2020-03-12 2020-03-12 Office Support Associate [facility] 1.2.840.114 [id number] Univers 12:05:01 12:20:01 Visit Nithya Ayon E Y HEALTH 350.1.13.10 ity of CL[place] [phone] [facility] [address] 2020-03-12 2020-03-12 Office Nany, [facility] 1.2.654.479 [id number] Univers 11:07:00 12:01:04 Visit Nithya E Y HEALTH 350.1.13.10 ity of [place] [phone] [address] 2020-03-12 2020-03-12 Outpatient R NANY [facility] [id number] Univers 11:00:00 11:00:00 NITHYA dennison [facility] 2020-03-12 2020-03-12 Orders Doctor GOYO 1.2.840.114 [id number] Univers 00:00:00 00:00:00 Only Unassigned, MERLY 350.1.13.10 it[facility] of [place] [facility] 4.2.7.2.686 Bhavik as [phone] [address] 2020-02-27 2020-02-27 Outpatient R NANY, [facility] [id number] Univers 13:30:00 13:30:00 NITHYA dennison [facility] 2020-02-26 2020-02-26 Orders Doctor GOYO 1.2.840.114 [id number] Univers 00:00:00 00:00:00 Only Unassigned, MERLY 350.1.13.10 [facility] [place] [facility] 4.2.7.2.686 Bhavik as [phone] [address] 2020-02-20 2020-02-20 Telephone [facility] 1.2.840.114 [id number] Univers 00:00:00 00:00:00 Wondiful A Health 350.1.13.10 ity of [place] 4.2.7.2.686 Bhavik as Professio [phone] [address] 2020-02-20 2020-02-20 Orders Doctor NANCE 1.2.840.114 [id number] Univers 00:00:00 00:00:00 Only Unassigned, MERLY 350.1.13.10 [facility] [place] [facility] 4.2.7.2.686 Bhavik as [phone] [address] 2020-02-18 2020-02-18 [facility] 1.2.840.114 [id number] Univers 00:00:00 00:00:00 [facility] 350.1.13.10 [facility]y of [place] 4.2.7.2.686 Bhavik as Professio [phone] [address] 2020-02-17 2020-02-17 Appointmen HEMATPOLETA, UTP UTP 7003 [id number] [place] 10:15:00 10:15:00 t; LANDRY moreau HEMATPOUR, ans LANDRY 2020-02-12 2020-02-12 Orders Doctor GOYO 1.2.840.114 [id number] Univers 00:00:00 00:00:00 Only Unassigned, MERLY 350.1.13.10 [facility] 4.2.7.2.686 Bhavik as [phone] [address] 2020-02-10 2020-02-11 Office [facility] 1.2.840.114 [id number] Univers 10:31:35 14:01:09 Visit Monty [facility] 350.1.13.10 ity of [place] 4.2.7.2.686 Bhavik as Professio [phone] Ne dic[address] Office [facility] One 2020-02-10 2020-02-10 Office Support Associate Lab, Adc Fam Pob I [facility] 1.2. 840.114 [id number] Univers 11:26:55 11:46:55 Visit Monty [facility] 350.1.13.1 0 ity of [place] 4.2.7.2.686 Bhavik as Professio [phone] Ne dic[address] Office [facility] One 2020-02-10 2020-02-10 [facility]patient [facility] [id number] Univers 10:30:00 10:30:00 WONDIFUL ity o f [facility] 2020-02-09 2020-02-09 Appointmen KEN [facility] [id number] [place] 14:30:00 14:30:00 t; AALIYAH ROGERS, Advanced Ph dave FISCHER M.D. Heart ans Alexei [facility] 2020-02-09 2020-02-09 Orders Doctor NANCE 1.2.840.114 [id number] Univers 00:00:00 00:00:00 Only Unassigned, MERLY 350.1.13.10 [facility] 4.2.7.2.686 Bhavik as [phone] [address] 2020-02-03 2020-02-03 Orders Doctor GOYO 1.2.840.114 [id number] Univers 00:00:00 00:00:00 Only Unassigned, MERLY 350.1.13.10 [facility] 4.2.7.2.686 Bhavik as [phone] [address] 2020-01-02 2020-01-20 Inpatient BHASKAR, [facility] 11:39:00 06:30:00 JOSE 2020-01-20 2020-01-20 Telephone [facility] 1.2.840.114 [id number] Univers 00:00:00 00:00:00 [facility] 350.1.13.10 ity of [place] 4.2.7.2.686 Bhavik as Professio [phone] [facility] [address] [place] [facility] 2020-01-16 2020-01-16 Appointmen KENJUANITA UTP [id number] [place] 14:45:00 14:45:00 t; AALIYAH ROGERS Phy sici BENNET, M.D. ans M.D. 2020-01-15 2020-01-15 Outpatient [facility] [id number] Univers 16:15:00 16:15:00 WONDIFUL ity o f [facility] 2020-01-15 2020-01-15 Orders Doctor GOYO 1.2.840.114 [id number] Univers 00:00:00 00:00:00 Only Unassigned, MERLY 350.1.13.10 ity of [place] 4.2.7.2.686 Bhavik as [phone] [address] 2020-01-06 2020-01-06 Telephone [facility] 1.2.840.114 [id number] Univers 00:00:00 00:00:00 [place]ondiful A [place] 350.1.13.10 it[place] Profess[place] [phone] [facility] 225 [facility] 2019-12-31 2019-12-31 [facility]ill [facility] 1.2.840.114 [id number] Univers 00:00:00 00:00:00 Wondiful A Health 350.1.13.10 ity of [place] 4.2.7.2.686 Bhavik as Professio [phone] Ne dicne nal 044 [place] [address] [facility] 2019-12-19 2019-12-19 Appointmen SE, VENOUS UTP UTP [id number] [place] 09:30:00 09:30:00 t; SE, Physic i VENOUS ans 2019-12-19 2019-12-19 Telephone [facility] 1.2.840.114 [id number] Univers 00:00:00 00:00:00 Wondiful A Health 350.1.13.10 ity of [place] 4.2.7.2.686 Bhavik as Professio [phone] Ne dicne nal 044 [place] [address] [facility] One 2019-12-12 2019-12-12 Orders Yulia GOYO 1.2.840.114 [id number] Univers 00:00:00 00:00:00 Only Wondiful A MERLY 350.1.13.10 ity of HOSPITAL 4.2.7.2.686 Bhavik as [phone] [address] 2019-12-10 2019-12-10 Appointmen JUANITA VAUGHN [facility] [id number] [place] 11:00:00 11:00:00 t; SUSHANT VAUGHN M.D. cic & P ki CANCHOLA M.D. Vascular ans Surgery - [facility] 2019-12-03 2019-12-03 Telephone [facility] 1.2.840.[id number] [facility] 00:00:00 00:00:00 Wondiful A Health 350.1.13.10 ity of [place] 4.2.7.2.686 Bhavik as Professio [phone] Ne dical nal 044 [place] [address] [facility] 2019-12-02 2019-12-02 Appointmen HEMATPOUR, UTP UTP 6835 6921 [place] 11:00:00 11:00:00 t; LANDRY Mehta ici HEMATPOUR, ans KHASHAYAR 2019-12-01 2019-12-01 Orders Doctor NANCE 1.2.840.114 [id number] Univers 00:00:00 00:00:00 Only Unassigned, MERLY 350.1.13.10 it[facility] of [place] [facility] 4.2.7.2.686 Bhavik as [phone] [address] 2019-11-24 2019-11-24 Telephone [facility] 1.2.840.114 [id number] Univers 00:00:00 00:00:00 Wondiful A [place] 350.1.13.10 ity of [place]2.[place] [phone] Ne dicne nal 044 [address] [facility] 2019-11-12 2019-11-12 Appointmen JUANITA VAUGHN UTP [id number] [place] 10:00:00 10:00:00 t; SUSHANT VAUGHN M.D. P ki CANCHOLA M.D. ans 2019-11-10 2019-11-10 Office [facility] 1.2.840.[id number] [facility] 11:03:26 12:13:55 Visit Wondironi Dos [place] 350.1.13.10 ity [place] 4.2.7.2.686 Bhaviksaqib wong [facility] [phone] [address] 2019-11-10 2019-11-10 Outpatient [facility] [id number] [facility] 11:15:00 11:15:[address] [facility] 2019-10-23 2019-10-23 Appointmen KEN [facility] [id number] [place] 15:45:00 15:45:00 t; AALIYAH ROGERS, Advanced Ph lizzeth FISCHER M.D. Heart syl [facility] 2019-10-21 2019-10-21 Outpatient R [facility] [id number] Univers 14:30:00 14:30:[address] [facility] 2019-10-10 2019-10-10 Outpatient R [facility] [id number] Univers 10:30:00 10:30:00 WONDIFUL ity o f [facility] 2019-09-25 2019-09-25 Outpatient AMBREEN_FAR [facility] [id number] [place] 02:19:00 02:19:00 HANA [id number] [facility] 2019-08-28 2019-08-28 Outpatient AMBREEN_FAR [facility] [id number] [place] 12:27:00 12:27:00 HANA [id number] [facility] 2019-08-11 2019-08-11 Outpatient R [facility] [id number] Univers 15:15:00 15:15:00 WONDIFUL ity o f [facility] 2019-08-11 2019-08-11 Telemedici [facility] 1.2.840.114 [id number] Univers 07:32:31 08:02:31 ne Visit Wondiful Saqib [place] 350.1.13.[address] [facility] [place] 4.2.7.2.686 Michele Pryor [phone] Ne dical [facility] 044 [facility] 2019-07-07 2019-07-07 Appointmen [facility]ON [facility] [id number] [place] 10:00:00 10:00:00 t; JOSY MANZANARES M.D. Physici syl FERRIS M.D. 2019-06-26 2019-06-26 Appointmen KEN [facility] [id number] [place] 11:00:00 11:00:00 t; AALIYAH ROGERS Advanced Ph dave FISCHER M.D. Heart ans Alexei Failure - 2019-06-12 2019-06-12 Appointmen KEN [facility] [id number] [place] 10:45:00 10:45:00 t; AALIYAH ROGERS Phy sici BENNET, M.D. ans M.D. 2019-06-10 2019-06-10 Appointmen HEMATPOUR, [facility] [id number] [place] 10:30:00 10:30:00 t; KHASHAYAR Phys ici HEMATPOUR, ans KHASHAYAR 2019-06-03 2019-06-03 Appointmen SE, ECHO [facility] [id number] [place] 10:15:00 10:15:00 t; SE, Physic i ECHO ans 2019-06-03 2019-06-03 Appointmen SE, NUCLEAR [facility] [id number] [place] 08:45:00 08:45:00 t; SE, Physic i NUCLEAR ans 2019-05-27 2019-05-27 Appointmen KEN [facility] [id number] [place] 10:45:00 10:45:00 t; AALIYAH ROGERS Advanced Ph dave FISCHER M.D. Heart ans Alexei Failure - [place] 2019-05-27 2019-05-27 Appointmen HEMATPOUR, [facility] [id number] [place] 10:15:00 10:15:00 t; KHASHAYAR Phys ici HEMATPOUR, ans KHASHAYAR 2019-05-07 2019-05-07 Ancillary Therapist, Adc Occup [facility] 1.[id number] [facility] 11:18:16 13:29:56 Visit Sergio Boone 350.1.13.10 ity [facility] [place].2.[place].2.[place] [phone] Ne dical nal 178 [facility] 2019-05-07 2019-05-07 Outpatient Janessa [facility] [id number] Univers 11:00:00 13:29:56 SERGIO fortune [facility] 2019-04-27 2019-04-27 Orders Doctor GOYO 1.2.840.114 [id number] Univers 00:00:00 00:00:00 Only Unassigned, MERLY 350.1.13.10 [place] [facility] 4.2.7.2.686 Bhavik as [phone] [address] 2019-04-02 2019-04-02 Outpatient R [facility] [id number] Univers 10:00:00 10:00:00 SERGIO fortune [facility] 2019-04-02 2019-04-02 [facility] 1.2.840.114 [id number] Univers 00:00:00 00:00:00 Management Tamanna walker [place] 350.1.13.10 [facility] [place] [phone] [address] 2017-06-27 2017-06-27 AppointJUANITA Conley UTP [id number] [place] 10:45:00 10:45:00 t; SALLIE BECK, Physi Alexei RIZO M.D. Results Test Description Test Time Test Comments Results Result Comments Source Lipid panel 2022-03-23 11:37:00 Test Item Value Reference Range Interpretation Comme nts Cholesterol, total (test 123 mg/dL <=200 code = 2093-3) HDL cholesterol (test 45 mg/dL See_Comment L [Auto mated message] code = 2085-9) The system [facility] generated this result transmitted ref erence range: > OR = 5 0. The reference range was not used to int erpret this result as normal/abnormal . Triglycerides (test code 69 mg/dL <=150 = 2571-8) LDL cholesterol 63 mg/dL (calc) Reference ra nge: <100 calculated (test code = Courtney rable range <100 81099-4) mg/dL for prima ry prevention; <70 mg/dL for patients wi th CHD or diabetic pat ients with > or = 2 C HD risk factors. LDL-C is now calculated rodney mahmood the Senait calculation, wh ich is a validated nov el method yan mahmood better accuracy than the Friedewald equation in the estimation of L DL-C. Omar SS et al . KATIE. 2013;310(19): 0718-7490 (http://educati on.Ques tDiagnostics.co m/faq/F AQ164) Cholesterol/HDL ratio 2.7 See_Comment [Auto mated message] (test code = 9830-1) The sys tem which generated this result transmitted ref erence range: <5.0 (ca lc). The reference r isabella was not used to interpret this result as normal/abnor mal. Non-HDL cholesterol (test 78 See_Comment Fo r patients with code = 48737-0) diabetes plu s 1 major ASCVD risk fact or, treating to a non-HDL-C goal of <100 mg/dL (LDL-C of <70 mg/dL) is consi dered a therapeutic opt ion. [Automated mess age] The system [employer] generated this result transmitted ref erence range: <130 mg/ dL (calc). The ref erence range was not u sed to interpret this result as normal/abnor mal. KRYSTINA (test code = KRYSTINA) FASTING:NO FASTING: NO RAC (test code = RAC) Performing Organization Information: Site ID: BABATUNDE Name: [facility] Address: [address] [place] [address] Director: Reno Khalil Lab Interpretation (test Abnormal code = 78685-1) [facility] HospitalThyroid stimulating [id number] 11:37:00 Test Item Value Reference Range Interpretation Comments TSH (test 1.37 See_Comment [Automated mes aissatou] code = The system [employer] 3016-3) generated this result transmit angelina reference range : 0.40 - 4.50 mIU /L. The reference r isabella was not used to interpret this result as normal/abnormal . KRYSTINA (test FASTING:NO FASTING: code = KRYSTINA) NO RAC (test Performing code = RAC) Organization Information: Site ID: RGA Name: [facility] Address: [address] [place] [address] Director: Reno Khalil [facility] 12 [id number] 21:26:10 Test Item Value Reference Range Interpretation Comments Ventricular rate 62 (test code = 253) Atrial rate (test 46 code = 255) QRSD interval (test 124 code = 260) QT interval (test 470 code = 264) QTC interval (test 477 code = 265) QRS axis 1 (test code -36 = 268) T wave axis (test 208 code = 270) EKG impression (test ^^^ Poor data quality, code = 273) interpretation may be adversely affected-Wide QRS rhythm-Left axis deviation-Left ventricular hypertrophy with QRS widening and repolarization abnormality-Abnormal ECG-In automated comparison with ECG of 07-FEB-2022 11:38,-Wide QRS 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 Electronic ventricular pacemaker- [facility] [id number] 18:59:00 Test Item Value Reference Interpretation Comments Range Protein (test code 8.0 g/dL 6.1-8.1 = 2885-2) Albumin, S (test 3.9 g/dL 3.8-4.8 code = 2862-1) Ngfit-4-cjdsufyr 0.4 g/dL 0.2-0.3 H (test code = 2865-4) Lfrlb-4-wbjnrxlf 0.9 g/dL 0.5-0.9 (test code = 2868-8) Beta-1 globulin 0.5 g/dL 0.4-0.6 (test code = 86715-6) Beta-2 globulin 0.6 g/dL 0.2-0.5 H (test code = 04324-4) Gamma globulin 1.7 g/dL 0.8-1.7 (test code = 2874-6) Interpretation Electrophore tic (test code = [place] 117[address]-6) isolated elevat ion of beta-2 globulin s. This pattern is sugg estive of acute inflam mation; however, the pr esence of a monoclonal protein cannot be ruled out. Cons ider serumimmunofixa tion to rule out monocl onal protein (if not already ordered ). Alpha-1 globuli n increase noted. RAC (test code = Performing RAC) Organization Information: Site ID: IG Name: [facility] Lab Address: [address] [place] [address] Director: Dr. Reno Khalil Lab Interpretation Abnormal (test code = 70017-0) [facility] activity, [id number] 18:59:00 Test Item Value Reference Range Interpretation Comments Complement activity, >60 31-60 H total (test code = 4532-8) RAC (test code = RAC) Performing Organization Information: Site ID: EZ Name: [facility], Address: [address] [place] [address] Director: Flakita Hill MD,PhD,CATHERINE Lab Interpretation (test Abnormal code = 37945-8) [facility] HospitalRheumatoid [id number] 18:59:00 Test Item Value Reference Range Interpretation Comments Rheumatoid factor <14 See_Comment [Automate d (test code = message] The 00824-9[employer]pmetrix system which generated this result transmit angelina reference range : <14 IU/mL. The reference range was not used to interpret this result as normal/abnormal . RAC (test code = Performing RAC) Organization Information: Site ID: RGA Name: [facility] Address: [address] [place] [address] Director: Reno Khalil [facility] HospitalCardiolipin [id number] 18:59:00 Test Item Value Reference Interpretation Comments Range Cardiolipin IgA <2.0 APL-U/mL Value Interp retation----- (test code = < 20.0 5076-5) Antibody not de tected> or = 20.0 Antibody d etected Cardiolipin IgG <2.0 GPL-U/mL Value Inter pretation----- (test code = < 20.0 3181-5) Antibody not de tected> or = 20.0 Antibody d etected Cardiolipin IgM <2.0 MPL-U/mL Value Interp retation----- (test code = < 20.0 3182-3) Antibody not de tected> or = 20.0 Antibody d etected The antiphospholipi d antibody syndrome (APS) is a clinical-pathol ogic correlation cinthia t includes a clinical event (e.g. arterial or deepa ous thrombosis, pre gnancy morbidity) and persistent positiveantipho spholipid antibodies (IgM , IgG Cardiolipin orb 2GPI antibodies grea ter than the 99th percentile ; ora lupus anticoagulant). International c onsensus guidelines for APS suggest waiting at leas t 12 weeksbefore ret esting to confirm antibod y persistence.The Systemic Lupus Internati onal Collaborating C karsten immunological classification criteria for systemic lupus erythematosus ( SLE) include testing forisot ype IgA, which has yet t o be incorporated in toAPS criteria. Low l evel antiphospholipi d antibodiesmay s ometimes be detected in the setting of infection,drug therapy or aging. For sury tional information, pl ease refer tohttp://educat FloQast.Web [place]/fa q/LPT991(Thi s link is being provided for informational/e ducational purposes only.) RAC (test code Performing = RAC) Organization Information: Site ID: IG Name: [facility] Lab Address: [address] [place] [address] Director: Dr. Reno Khalil [facility] anticoagulant [id number] 18:59:00 Test Item Value Reference Interpretation Comments Range Lupus anticoagulant SEE NOTE NOT DETECTED A Lupus (test code = Anticoagulant i s 01478-1) NOT DETECTED. T his interpretation is basedon the following test results: PTT lupus 33 See_Comment For more anticoagulant (test informat ion on this code = 81153-5) test, go to:http://educa tion .GameSaladdiagnosti cs.c om/faq/FRN99x8( This link is being provided for informational/e duca tionalpurposes only.) [Automat ed message] The Filecoin stem which generated this result transmitted reference range : < OR = 40 seconds . The reference r isabella was not used to interpret this result as normal/abnormal . dRVVT screen (test 38 See_Comment [Automat ed code = 6303-2) message] The system which generated this result transmitted reference range : < OR = 45 seconds . The reference r isabella was not used to interpret this result as normal/abnormal . RAC (test code = Performing RAC) Organization Information: Site ID: EZ Name: [facility], Address: [address] [place] [address] Director: Flakita Hill MD,PhD,CATHERINE [facility] HospitalVitamin D 25 hydroxy [id number] 18:59:00 Test Item Value Reference Range Interpretation Comments Vitamin D, 98 ng/mL 30-100 Vitamin D Statu s 25-hydroxy (test 25-OH Vitam in D: code = 1989-3) Deficiency: < 20 ng/mLInsufficie ncy : 20 - 29 ng/mLOptimal: > or = 30 ng/mL For 25-OH Vitamin D testing on patients on D2-supplementat ion and patients fo r whom quantitati on of D2 and D3 fractions is required, the QuestAssureD(TM )25 -OH VIT D, (D2,D3), LC/MS/ MS is recommended: order code 9288 8 (patients >2yrs).See Note 1 Note 1 For additional information, please refer to http://educatio n.Q uestDiagnostics .co m/faq/ZRK573 (T his link is being provided for informational/e nate ational purpose s only.) RAC (test code = Performing RAC) Organization Information: Site ID: RGA Name: [facility] Address: [address] [place] [address] Director: Reno Khalil [facility] HospitalUrine protein/creatinine ratio, [id number] 18:59:00 Test Item Value Reference Range Interpretation Comments Creatinine, TNP mg/dL TEST NOT PERFOR MED No urine suitable specim en (mg/dL) received.Please review (test code = the testrequire ments at 216-8) testdirectory.q [employer] RAC (test Performing code = RAC) Organization Information: Site ID: RGA Name: [facility] Address: [address] [place] [address] Director: Reno Mclean [facility] HospitalCyclic citrullinated peptide antibody, [id number] 18:59:00 Test Item Value Reference Range Interpretation Comments Cyclic citrullin <16 UNITS Reference peptide Ab (test RangeNegati ve: code = 22032-3) <20Weak Posi tive: 20-39Moderate Positive: 40-59Strong Positive: >59 RAC (test code = Performing RAC) Organization Information: Site ID: IG Name: [facility] Address: [address] [place] [address] Director: Dr. Reno Mclean [facility] HospitalUrinalysis screen and microscopy, with reflex to culture 2021-11-03 18:59:00 Test Item Value Reference Range Interpretation Comments Color, UA TNP TEST NOT PERFOR MED (test code = No urine receiv ed. 5778-6) RAC (test code Performing = RAC) Organization Information: Site ID: RGA Name: [facility] Lab Address: [address] [place] [address] Director: Reno Mclean [facility] HospitalRibonucleoprotein antibody (STOCK SELECTOR antibody)2021-11-03 18:59:00 Test Item Value Reference Range Interpretation Comments Ribonucleic <1.0 NEG See_Comment [Automated antibody (STOCK SELECTOR) message] The (test code = system which 27846-0) generated this result transmitted reference range : <1.0 NEG AI. Th e reference range was not used to interpret this result as normal/abnormal . RAC (test code = Performing RAC) Organization Information: Site ID: IG Name: [facility] Address: [address] [place] [address] Director: Dr. Reno Mclean [facility] [id number] 18:59:00 Test Item Value Reference Range Interpretation Comments Perales antibody <1.0 NEG See_Comment [Automated (test code = message] The 91892-1) system which generated this result transmit angelina reference range : <1.0 NEG AI. Th e reference range was not used to interpret this result as normal/abnormal . RAC (test code = Performing RAC) Organization Information: Site ID: IG Name: [facility] Address: [address] [facility] [place] [address] Director: Dr. Reno Khalil [facility] HospitalBeta-2 glycoprotein 1 antibodies (IgG, IgA, IgM)2021-11-03 18:59:00 Test Item Value Reference Interpretation Comments Range Beta-2 <2.0 U/mL Value glycoprotein 1 Interpretatio n----- antibody, IgG <20.0 (test code = Antibody not de tected> 63735-7) or = 20.0 Antib cinda detected Beta-2 <2.0 U/mL Value glycoprotein 1 Interpretatio n----- antibody, IgM <20.0 (test code = Antibody not de tected> 29747-8) or = 20.0 Antib cinda detected Beta-2 <2.0 U/mL The antiphospho lipid glycoprotein 1 antibody synd ilana (APS) antibody, IgA is aclinical-p athologic (test code = correlation cinthia t 66922-5) includes a clin icalevent (e.g. arterial or venous thrombosis, pregnancymorbid ity) and persistent posi tive antiphospholipi dantibodi es (IgM, IgG Ca rdiolipin or b2GPI antibo dies greaterthan the 99th percentile; or a lupus anticoagulant). Internati onal consensus guidelines for APS suggest waiting at least 12 weeks before retesting to co nfirm antibodypersist terence. The Systemic Lupus International CollaboratingCl inics immunological classification criteria for systemiclup us erythematosus ( SLE) include testing for isotype IgA,whi ch has yet to be incor porated into APS criter ia. Lowlevel antiphospholipi d antibodies may sometimes be detectedin t he setting of infe ction, drug therapy or aging. For additional information, pl ease refer tohttp://educat ion.Web [place].Reflexis Systems /faq/FAQ1 09(This link is being provided for informational/e ducationa lpurposes only. ) Value Interpretation- ---- < 20.0 Antibody not detected> or = 20.0 Antibody detect ed RAC (test code = Performing RAC) Organization Information: Site ID: EZ Name: [facility], Address: [address] [place] [address] Director: Flakita Hill MD,PhD,CATHERINE [facility] HospitalDirect antiglobulin test (STEPAHNY)2021-11-03 18:59:00 Test Item Value Reference Range Interpretation Comments Direct antiglobulin NEGATIVE NEGATIVE test (STEPHANY) (test code = 1007-4) RAC (test code = RAC) Performing Organization Information: Site ID: IG Name: [facility] Address: [address] [place] [address] Director: Dr. Reno Khalil [facility] HospitalImmunofixation, [id number] 18:59:00InterpretationST. VINCENT MER[facility] IIPerforming Organization Information: Site ID: IG Name: [facility] Address: [address] [place] [address] Director: Dr. Reno KhalilAudie L. Murphy Memorial Va HospitalCreatine kinase, total (CPK)2021-10-29 00:10:00 Test Item Value Reference Range Interpretation Comments Creatine kinase (test 78 U/L 29-143 code = 2157-6) RAC (test code = RAC) Performing Organization Information: Site ID: RGA Name: [facility] Address: [address] [place] [address] Director: Reno Khalil [facility] HospitalAldolase, [id number] 00:10:00 Test Item Value Reference Range Interpretation Comments Aldolase (test 3.8 U/L See_Comment [Automated code = 1761-6) message] The system which generated this result transmit angelina reference range : < OR = 8.1. The reference range was not used to interpret this result as normal/abnormal . RAC (test code = Performing RAC) Organization Information: Site ID: IG Name: [facility] Address: [address] [place] [address] Director: Dr. Reno Khalil [facility] HospitalVitamin B6 level, [id number] 04:17:00 Test Item Value Reference Range Interpretation Comments Vitamin B6 5.1 ng/mL 2.1-21.7 (Note)VITAMIN (test code = SUPPLEMENTATION 2900-9) WITHIN 24 HOURS PRIOR TO BLOOD DRAW M AY AFFECT THE ACCU RACY OF RESULTS. THI S TEST WAS DEVELOPED A ND ITS ANALYTICAL PERFORMANCE CHARACTERISTICS HAVE BEEN DETERMINED BY [employer]. IT H NOT BEEN CLEARED OR APPROVED BY THE FDA. THIS ASSAY HAS BEEN VALIDATED PURSU ANT TO THE CLIA REGULA TIONS AND IS USED FOR CLINICAL PURPOS ES. MDFmed [id number] 01 [facility] [address] [id number] 00Mich krys Mi MD RAC (test code Performing = RAC) Organization Information: Site ID: [id number] Name: [facility] Address: [address] [place] [address], [address] [place] [address] Director: Rivera Mi MD [facility] HospitalVitamin B1 level, whole [id number] 04:17:00 Test Item Value Reference Range Interpretation Comments Vitamin B1, 112 nmol/L 78-185 Vitamin whole blood supplementation (test code = within 24 hours prior 62492-0) toblood draw ma y affect the accu racy of results. Thi s test was developed a nd its analytical performance characteristics have been determined by [employer]. It has not been cl eared or approved by theFDA. This as say has been valida angelina pursuant to the CLIA regulations and is used for clinic al purposes. RAC (test code Performing = RAC) Organization Information: Site ID: SLI Name: [facility] [place] Address: [address] [place] [address] Director: Franki Boone M.D. [facility]ie L. [facility] Hospital[facility]it[facility]12 [id number] 22:31:00 Test Item Value Reference Range Interpretation Comments Vitamin B12 (test 744 pg/mL 200-1100 code = 2132-9) RAC (test code = Performing Organization RAC) Information: Site ID: RGA [facility] Address: [address] [place] [address] Director: Reno Khalil [facility] HospitalFerritin [id number] 22:31:00 Test Item Value Reference Range Interpretation Comments Ferritin level (test 107 ng/mL 16-288 code = 2276-4) RAC (test code = RAC) Performing Organization Information: Site ID: BABATUNDE Name: [facility] Address: [address] [place] [address] Director: Reno Khalil [facility]2022-05-23 22:31:00 Test Item Value Reference Range Interpretation Comments Folate (test 10.2 ng/mL Reference Rang e code = 2284-8) Low: <3.4 Borderline: 3.4-5.4 Normal: >5.4 RAC (test code Performing = RAC) Organization Information: Site ID: BABATUNDE Name[facility] Address: [address] [place] [address] Director: Reno [facility] HospitalHemoglobin [id number] 22:31:00 Test Item Value Reference Interpretation Comments Range Hemoglobin A1C 5.8 See_Comment H For someone w kerriout (test code = known diabetes, a 4548-4) hemoglobin A1c value between 5.7% an d 6.4% is consist ent withprediabetes and should be confi rmed with a follow-u p test. For someo ne with known diab etes, a value <7%indicates that their diabetes is well controlled . D2rtfvyazc shou ld be individualized based on duration ofdiabetes, age , comorbid condit ions, and otherconsiderat ions. This assay resu lt is consistent with an increased risko f diabetes. Curre ntly, no consensus ex ists regarding use ofhemoglobin A1 c for diagnosis of diabetes for children. [Auto mated message] The sy stem which generated this result transmit angelina reference range : <5.7 % of total Hgb. The reference r iasbella was not used to interpret this result as normal/abnormal . RAC (test code = Performing RAC) Organization Information: Site ID: [facility] Name: [facility] Address: [address] [place] [address] Director: Reno Khalil Lab Interpretation Abnormal (test code = 73336-8) [facility]2022-05-23 22:31:00 Test Item Value Reference Range Interpretation Comments Iron level 94 See_Comment [Automated (test code = message] The sy stem 2498-4) which generated this result transmitted reference range : 45 - 160 mcg/dL. T he reference range was not used to interpret this result as normal/abnormal . RAC (test code Performing = RAC) Organization Information: Site ID: [facility] Name: [facility] Address: [address] [place] [address] Director: Reno Khalil [facility] HospitalMagnesium [id number] 22:31:00 Test Item Value Reference Range Interpretation Comments Magnesium (test code 2.0 mg/dL 1.5-2.5 = 85553-6) RAC (test code = RAC) Performing Organization Information: Site ID: [facility] Name: [facility] Lab Address: [address] [place] [address] Director: Reno Khalil [facility] HospitalUric acid [id number] 22:31:00 Test Item Value Reference Range Interpretation Comments Uric acid (test code 1.8 mg/dL 2.5-7.0 L Therape utic = 3084-1) target for gout patients: <6.0 mg/dL RAC (test code = Performing RAC) Organization Information: Site ID: [facility] Name: [facility] Lab Address: [address] [place] [address] Director: Reno Khalil Lab Interpretation Abnormal (test code = 65369-5) [facility] HospitalUrine [id number] 22:31:00 Test Item Value Reference Interpretation Comments Range Urine culture (test SEE NOTE A CULTURE , URINE, code = 630-4) ROUTINE Micro Number: [id number] Test Status: Fi nal Specimen Source : Urine Specimen Quality: Adequa te Result: 50,000-100,000 CFU/mL of Escherichia col i Greater than 100,000 CFU/mL of Enterococcus faecalis E.coli E.faecalis - - INT HENRIK INT HENRIK AMOX/CLAVULANAT E S 4 * AMPICILLIN R >=32 R <=2 AMP/SULBACTAM I 16 * CEFAZOLIN NR <=4 2 * CEFEPIME S <=1 * CEFTRIAXO NE S <=1 * CIPROFLOX ACIN S <=0.25 S 1 GENTAMICIN S <= 1 * IMIPENEM S <=0. 25 * LEVOFLOXACIN S <=0.12 S 2 NITROFURANTOIN S <=16 S <=16 PIP/TAZOBACTAM S <=4 * TETRACYCL INE * R >=16 TOBRAM YCIN S <=1 * TRIMETHOPRIM/DUPONT LFA S <=20 * VANCOM YCIN * S 1 S=Suscept ible I=Intermediate R=Resistant * = Not TestedNR = Not Reported NN = See Therapy Comment s THERAPY COMMENT S Note 1: For infections othe r than uncomplica angelina UTI caused by E . coli, K. pneumo niae or P. mirabilis : Cefazolin is resistant if WI C > or = 8 mcg/mL. (Distinguishing susceptible toan swetha intermediate fo r isolates with M IC < or = 4 mcg/mL requires additi onal testing.) Note 2: For uncomplicat ed UTI caused by E . coli, K. pneumo niae or P. mirabilis : Cefazolin is susceptible if HENRIK <32 mcg/mL and predicts susceptible to the oral agents cefaclor, cefdi frank, cefpodoxime, cefprozil, cefuroxime, cephalexin and loracarbef. RAC (test code = Performing RAC) Organization Information: Site ID: A Name: [facility] Address: [address] [place] [address] Director: Reno Khalil Lab Interpretation Abnormal (test code = 04510-3) [facility] automated with [id number] 22:31:00 Test Item Value Reference Range Interpretation Comments Color, UA (test YELLOW YELLOW code = 5778-6) Appearance (test CLEAR CLEAR code = 5767-9) Specific gravity, 1.010 1.001-1.035 urine (test code = 5811-5) pH, urine (test < OR = 5.0 5.0-8.0 code = 5803-2) Glucose, urine NEGATIVE NEGATIVE (test code = 29062-4) Bilirubin, UA NEGATIVE NEGATIVE (test code = 5770-3) Ketones, UA (test NEGATIVE NEGATIVE code = 2514-8) Occult blood, NEGATIVE NEGATIVE urine (test code = 5794-3) Protein, UA (test NEGATIVE NEGATIVE code = 32935-3) Nitrite, UA (test NEGATIVE NEGATIVE code = 5802-4) Leukocyte NEGATIVE NEGATIVE esterase, UA (test code = 5799-2) WBC, UA (test 0-5 See_Comment [Automated code = 5821-4) message] The system which generated this result transmit angelina reference range : < OR = 5 /HPF. Th e reference range was not used to interpret this result as normal/abnormal . RBC, UA (test NONE SEEN See_Comment [Automated code = 11940-9) message] The system which generated this result transmit angelina reference range : < OR = 2 /HPF. Th e reference range was not used to interpret this result as normal/abnormal . Squamous 0-5 See_Comment [Automated epithelial cells, message] T he UA (test code = system which 24777-5) generated this result transmit angelina reference range : < OR = 5 /HPF. Th e reference range was not used to interpret this result as normal/abnormal . Bacteria, UA NONE SEEN NONE SEEN /HPF (test code = 5769-5) Hyaline casts, UA NONE SEEN NONE SEEN /LPF (test code = 5796-8) RAC (test code = Performing RAC) Organization Information: Site ID: RGA Name: [facility] Address: [address] [place] [address] Director: Reno Khalil [facility] HospitalMicroalbumin / creatinine urine [id number] 22:31:00 Test Item Value Reference Range Interpretation Comments Creatinine, 64 mg/dL 20-275 urine (mg/dL) (test code = 2161-8) Microalbumin <0.2 See Note: mg/dL Reference Ra nge: , urine Reference Range Not (test code = established 77064-0) Microalbumin NOTE See_Comment NOTE: The urine albumin /creatinine value is less t petty 0.2 ratio (test mg/dL therefore we are code = unable to calcu late 9318-7) excretion and/o r creatinine rati o. The ADA defines abnormalities i n albuminexcretio n as follows: Albumi pavel Category Result (mcg/mg creatinine) Nor mal to Mildly increase d <30Moderately i ncreased 30-299 Severely increased > OR = 300 The ADA recomme nds that at least two of threespecimens collected withi n a 3-6 month period be abnormal before consider ing a patient to bewi thin a diagnostic devin arias. [Automated mess age] The system which ge nerated this result tra nsmitted reference range : <30 mcg/mg creat. T he reference range was not used to interpr et this result as normal/abnormal . RAC (test Performing code = RAC) Organization Information: Site ID: RGA Name: [facility] Lab Address: [address] [place] [address] Director: Reno Khalil [facility] [id number] 22:31:00 Test Item Value Reference Range Interpretation Comments Sjogren's SS-A >8.0 POS See_Comment A [Automated antibody (test code message] The = 25038-2) system which generated this result transmitted reference range : <1.0 NEG AI. Th e reference range was not used to interpret this result as normal/abnormal . RAC (test code = Performing RAC) Organization Information: Site ID: IG Name: [facility] Lab Address: [address] [place] [address] Director: Dr. Reno Khalil Lab Interpretation Abnormal (test code = 84293-8) [facility] [id number] 22:31:00 Test Item Value Reference Range Interpretation Comments Sjogren's SS-B <1.0 NEG See_Comment [Automated antibody (test message] The code = 24543-0) system which generated this result transmit angelina reference range : <1.0 NEG AI. Th e reference range was not used to interpret this result as normal/abnormal . RAC (test code = Performing RAC) Organization Information: Site ID: IG Name: [facility] Address: [address] [place] [address] Director: Dr. Reno Khalil [facility] reflex to [id number] 22:31:00 Test Item Value Reference Range Interpretation Comments TSH reflex to 1.52 See_Comment [Automated FT4 (test code message] The system = 3016-3) which generated this result transmitted reference range : 0.40 - 4.50 mIU /L. The reference r isabella was not used to interpret this result as normal/abnormal . RAC (test code Performing = RAC) Organization Information: Site ID: RGA Name: [facility] Address: [address] [place] [address] Director: Reno BarberANA SCREEN W IFA W REFLEX TO [id number] 22:31:00 Test Item Value Reference Interpretation Comments Range CLEVE Screen (test POSITIVE NEGATIVE A CLEVE IFA is a first code = 77035-4) line screen for detecting thepresence of up to approximately 1 50 autoantibodies invarious autoi mmune diseases. A pos itive CLEVE IFA resulti s suggestive of autoimmune dise ase and reflexes to titer and pattern. Fu rther laboratory test ing may beconsidere d if clinically indicated. For additional information, pl ease refer tohttp://educat ionAddFleet/ faq/FAU998(This link is being provid ed for informational/e ducat ional purposes only.) CLEVE titer (test 1:640 titer H Reference R isabella code = 5048-4) <1:40 Negativ e 1:40-1:80 Low Antibody Level >1:80 Elevated Antibo dy Level CLEVE pattern (test Nuclear, Speckled A Speck led pattern is code = 39617-9) associated w ith mixed connectivetissu e disease (MCTD), systemic lupus erythematosus(S LE), Sjogren's syndr ome, dermatomyositis , and systemic sclerosis/polym yosit is overlap. AC-2,4,5,29: Speckled International Consensus on AN A Patterns(https: //doi .org/10.1515/cc lm-20 18-0052) RAC (test code = Performing RAC) Organization Information: Site ID: IG Name: [facility] Lab Address: [address] [place] [address] Director: Dr. Reno Khalil Lab Interpretation Abnormal (test code = 27641-9) Caridad EidARS-CoV-2 (COVID-19) RNA [Presence] in Respiratory specimen by AUDI with probe [id number] 23:17:11 Test Item Value Reference Range Interpretation Comments SARS-CoV-2 (COVID-19) RNA Not detected [Presence] in Respiratory specimen by AUDI with probe detection (test code = 92261-8) Whether patient is employed in a No healthcare setting (test code = 13269-1) Whether the patient has symptoms Yes related to condition of interest (test code = 67814-5) Whether the patient was No hospitalized for condition of interest (test code = 15060-5) Whether the patient was admitted No to intensive care unit (ICU) for condition of interest (test code = 32129-5) Whether patient resides in a Unknown congregate care setting (test code = 96656-0) status (test code = No 09238-6) Date and time of symptom onset Unknown (test code = 29531-7) [facility]- CT LD LUNG CA [id number] 12:54:00 Name: JOYCE OVALLES [facility] : 1950 Age/S: 67 / F [address] Unit #: [id number] Loc: [place] [address] Phys: Adeel Johnson MD Acct: [id number] Dis Date: Status: REG CLI PHONE#: [phone] Exam Date: 07/02/2018 1108 FAX #: [phone] Reason: SCREENING EXAMS: CPT CODE: [id number] CT LD LUNG CA SCREENING G0297 HISTORY: Lung cancer screening. COMPARISON: None available. CTchest without contrast: Low-dose technique. Automated exposure control. No infiltrates, effusion or congestion. No bronchiectasis, honeycombing or fibrosis. No endobronchial lesions. Dependent changes.No discrete parenchymal mass or nodules. 12 month follow-up is recommended. Normal caliber unopacified aorta and pulmonary arteries. Poorly visualized thyroid glands are normal. Esophageal wall is not thickened. No pathologic adenopathy. Cardiomegaly with left ICD with the leads in the right atrium and right ventricle. No pericardial effusion. Visualized upper abdomen is grossly normal but limited in evaluation. Subcutaneous tissues and the musculature are within normal limits. No lytic or blastic lesions are noted within the bony skeleton. Old posterior lateral right upper rib fractures. IMPRESSION: The lungs are clear. No mass or lesions. Routine 12 month follow-up. FOR INTERNAL CODING PURPOSES ONLY RESULT CODE: L1 FOLLOW UP: L12 at 1254 Reported and signed by: Walter Armas M.D. CC: Ronaldo Corrales III, MD; Adeel Johnson MD Technologist:Mariela Tran RT(R),CT; CTDI: DLP: Trnscb Date/Time: 03/2019 (4292) [email or web address] Orig Print D/T: S: 07/02/2018 (1257) CTDI: DLP: PAGE 1 Signed Report"
[2022-06-07] MEDS ORDERED: MORPHINE 4 MG/ML SYR ONE ×2 (16:10→17:11)
[2022-06-07] MEDS ORDERED: ONDANSETRON 4 MG/2 ML VIAL ONE ×2 (16:10→17:11)
[2022-06-07 16:30] LABS: Absolute Lymphocytes (CBC) 0.9 K/uL (0.7-4.9); Hematocrit 34.9 % (36.0-45.0); Lymphocytes % 11.6 % (15.3-44.8); MCV 88.8 fL (80-100); MPV 10.9 fL (7.6-11.3); RBC Red Blood Cell Count 3.93 M/uL (3.86-4.86)
[2022-06-07 16:40] LABS: Magnesium 2.6 mg/dL (1.6-2.4)
[2022-06-07 16:42] LABS: Urine Blood Trace-lysed (Negative); Urine Glucose Negative (Negative); Urine Protein Trace (Negative); Urine pH 6.5 (5.0-7.0)
[2022-06-07 16:55] LABS: Urine Bacteria 20-50 /HPF (<20); Urine RBC <5 /HPF (None Seen); Urine WBC Clump Moderate /HPF (None Seen)
--- NOTE | 2022-06-07 17:17 | RAD REPORT ---
EXAM DESCRIPTION: RAD - Pelvis - 06/07/2022 5:05 pm CLINICAL HISTORY: PAIN COMPARISON: Transvaginal Study Probe dated 08/06/2017; Hip Left 2 View dated 06/07/2022 FINDINGS/IMPRESSION: Osteopenia limits evaluation for fractures. Within these limitations, no fractu re appreciated. Fusion hardware in the lower spine. Peripheral vascular calcifications.
--- NOTE | 2022-06-07 17:18 | RAD REPORT ---
EXAM DESCRIPTION: RAD - Hip Left 2 View - 06/07/2022 5:05 pm CLINICAL HISTORY: PAIN COMPARISON: None FINDINGS/IMPRESSION: No acute left hip fracture. No dislocation. Osteopenia. This limits evaluation for fractures. The pubic rami in particular are difficult to evaluate due to the degree of osteopenia . If a pubic ramus fracture is suspected, recommend CT.
[2022-06-07] MEDS ORDERED: NA CHLORIDE 0.9% 50 ML ONE (17:47)
[2022-06-07] MEDS ORDERED: CEFTRIAXONE 1000 MG/VIAL ONE (17:47)
--- NOTE | 2022-06-07 18:03 | RAD REPORT ---
EXAM DESCRIPTION: US - Extremity Venous Uni Ltd - 06/07/2022 5:56 pm CLINICAL HISTORY: Pain COMPARISON: None. TECHNIQUE: Real-time sonographic evaluation of the left lower extremity deep venous system was perfo rmed. FINDINGS: Normal compressibility, flow augmentation, phasic flow and spontaneous flow is identified in the left lower extremity deep venous system. No intraluminal filling defects seen. IMPRESSION: No DVT in the left lower extremity.
--- NOTE | 2022-06-07 18:12 | RAD REPORT ---
EXAM DESCRIPTION: US - Lower Extremity Artery Uni Ltd - 06/07/2022 5:56 pm CLINICAL HISTORY: PAIN COMPARISON: No comparisons FINDINGS: Color Doppler, grayscale, and spectral analysis was performed. Monophasic flow present in the left common femoral artery. Flow identified with color Doppler. The le ft SFA also has monophasic and slow flow. Very low amplitude flow and peak systolic velocity in the p opliteal artery. The posterior tibial artery and dorsalis pedis arteries do not have identifiable ravin w. 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
--- NOTE | 2022-06-07 18:29 | ER ---
Nurse's Notes [facility] Name: Carolyn Piper Age: 71 yrs Sex: Female : 1950 Arrival Date: 06/07/2022 Time: 15:55 Bed 4 Private MD: Diagnosis: Unspecified kidney failure;UTI/ Urinary tract infection, site not specified;Occlusion of Left Posterior Tibial and Dorsalis Pedis Arteries Presentation: 06/07 15:56 Chief complaint: EMS states: right hip and leg pain that began today. 50 mcg of kc6 fentanyl given en route. BGL 152. Coronavirus screen: Vaccine status: Patient reports receiving the 2nd dose of the covid vaccine. At this time, the client does not indicate any symptoms associated with coronavirus-19. Ebola Screen: No symptoms or risks identified at this time. Initial Sepsis Screen: Does the patient meet any 2 criteria? No. Patient's initial sepsis screen is negative. Does the patient have a suspected source of infection? No. Patient's initial sepsis screen is negative. Risk Assessment: Do you want to hurt yourself or someone else? Patient reports no desire to harm self or others. Onset of symptoms was June 07, 2022. 15:56 Method Of Arrival: EMS: [facility] kc6 15:56 Acuity: KUSHAL 3 kc6 Triage Assessment: 15:58 General: Appears in no apparent distress. uncomfortable, Behavior is cooperative, kc6 appropriate for age, agitated. Pain: Complains of pain in left leg Pain does not radiate. Pain currently is 10 out of 10 on a pain scale. Quality of pain is described as numb, Pain began suddenly, Is continuous, Alleviated by nothing. Aggravated by increased activity, repositioning, weight bearing, Noted to be moaning, resistant to movement, Also complains of no other associated symptoms. EENT: No signs and/or symptoms were reported regarding the EENT system. Neuro: Stokes Agitation-Sedation Scale (RASS): 0 - Alert and Calm Level of Consciousness is awake, alert, obeys commands, Oriented to person, place, time, situation, Appropriate for age. Cardiovascular: Capillary refill < 3 seconds. Respiratory: Airway is patent Trachea midline Respiratory effort is even, unlabored, Respiratory pattern is regular, symmetrical. GI: No signs and/or symptoms were reported involving the gastrointestinal system. : No signs and/or symptoms were reported regarding the genitourinary system. Derm: No signs and/or symptoms reported regarding the dermatologic system. Skin is intact, Skin is pink, warm \\T\\ dry. Musculoskeletal: No signs and/or symptoms reported regarding the musculoskeletal system. Circulation, motion, and sensation intact. Capillary refill < 3 seconds, Range of motion: intact in all extremities. Historical: - Allergies: 15:58 acyclovir; kc6 15:58 fameiclonir; kc6 15:58 Propafenone; kc6 15:58 Valtrex; kc6 - PMHx: 15:58 Anemia; Atrial Fib; blood clot; CHF; Chronic pain; CVA; Diabetes - IDDM; GI disease; kc6 Gout; Hyperlipidemia; Hypertension; Renal Disease; liver failure; Lupus erythematosus; sciatica; - Immunization history:: Client reports receiving the 2nd dose of the Covid vaccine, Flu vaccine is not up to date. - Social history:: Smoking status: Patient reports the use of cigarette tobacco products, smokes one pack cigarettes per day. Screenin:02 [facility] ED Fall Risk Assessment (Adult) History of falling in the last 3 months, kc6 including since admission No falls in past 3 months (0 pts) Confusion or Disorientation No (0 pts) Intoxicated or Sedated No (0 pts) Impaired Gait No (0 pts) Mobility Assist Device Used No (0 pt) Altered Elimination No (0 pt) Score/Fall Risk Level 0 - 2 = Low Risk Oriented to surroundings, Maintained a safe environment, Educated pt \\T\\ family on fall prevention, incl call for assistance when getting out of bed, Assessed \\T\\ reinforced patient's understanding of fall precautions, Hourly rounding (assess needs \\T\\ fall precautionary measures) done. Abuse screen: Denies threats or abuse. Denies injuries from another. Nutritional screening: No deficits noted. Tuberculosis screening: No symptoms or risk factors identified. Assessment: 16:00 General: Behavior is agitated, fussy, pt requesting bedpan, states that she needs to ph have a BM, attempted to place pt in bedpan, pt states that she is unable to lie flat, states, " I don't think that's going to work." Offered to place pt in brief to which she agreed, brief placed to pt, instructed pt to use call light when she is done w/ BM. 16:10 Reassessment: Reassessment: Pt yelling, " Help! Help! Help me." Entered room and pt ph states that she needs to have a bowl movement and that she thinks it could be constipation causing her L leg pain, reports last BM was 3-4 days ago, ERP notifed. 16:42 Reassessment: Pt cleaned of diarrhea, stool dark green w/ small amount of red ph blood/streaking noted, straight cath inserted to obtain urine sample. 17:00 Reassessment: Patient appears in no apparent distress at this time. No changes from kc6 previously documented assessment. Patient and/or family updated on plan of care and expected duration. Pain level reassessed. Patient is alert, oriented x 3, equal unlabored respirations, skin warm/dry/pink. 18:00 Reassessment: Patient appears in no apparent distress at this time. No changes from kc6 previously documented assessment. Patient and/or family updated on plan of care and expected duration. Pain level reassessed. Patient is alert, oriented x 3, equal unlabored respirations, skin warm/dry/pink. 19:36 Reassessment: transfer initiated to [facility] for left leg occluded posterior tibial bb and dorsalis pedis arteries. 20:39 Reassessment: Patient and/or family updated on plan of care and expected duration. Pain kl level reassessed. Patient is alert, oriented x 3, equal unlabored respirations, skin warm/dry/pink. Patient states feeling better. 21:45 Reassessment: Patient appears in no apparent distress at this time. Patient and/or kl family updated on plan of care and expected duration. Pain level reassessed. Patient is alert, oriented x 3, equal unlabored respirations, skin warm/dry/pink. Patient states feeling better. Vital Signs: 15:56 BP 148 / 62; Pulse 59; Resp 18 S; Pulse Ox 100% on R/A; Weight 68.49 kg (R); Height 5 kc6 ft. 10 in. (177.80 cm) (R); Pain 10/10; 17:00 BP 143 / 54; Pulse 60; Resp 11 S; Temp 97.8(O); Pulse Ox 100% on R/A; kc6 18:09 BP 149 / 45; Pulse 60; Resp 21 S; Pulse Ox 100% on 3 lpm NC; Pain 0/10; kc6 19:00 BP 178 / 65; Pulse 60; Pulse Ox 95% on R/A; kl 20:00 BP 165 / 68; Pulse 60; Resp 17; Temp 98.2(TE); Pulse Ox 98% ; kl 22:05 BP 170 / 82; Pulse 60; Resp 17; Pulse Ox 100% on R/A; kl 15:56 Body Mass Index 21.67 (68.49 kg, 177.80 cm) [facility] ED Course: 15:55 Patient arrived in ED. kc6 15:57 Herb Lu PA is PHCP. cp 15:57 Abram Johnson MD is Attending Physician. cp 15:58 Triage completed. kc6 15:58 Arm band placed on. kc6 16:02 Patient has correct armband on for positive identification. Bed in low position. Call [facility] light in reach. Side rails up X2. 16:05 Mirna Sampson, YAKELIN is Primary Nurse. kc6 16:44 Urine Microscopic Only Sent. kc6 16:44 Straight cath inserted, using sterile technique, 16 Fr. Specimen obtained. Returned ph cloudy urine. Patient tolerated well. 17:48 Maintain EMS IV. Dressing intact. Good blood return noted. Site clean \\T\\ dry. Gauge \\T\\ ph site: 20G LAC. 18:56 SARS RAPID Sent. kc6 23:30 No apparent distress. Resting quietly. Appears to be sleeping. kl Administered Medications: 16:02 Drug: morphine 4 mg Route: IVP; Infused Over: 4 mins; Site: left antecubital; 6 16:30 Follow up: Response: No adverse reaction; Pain is unchanged, physician notified; RASS: kc Alert and Calm (0) 16:02 Drug: Zofran (Ondansetron) 4 mg Route: IVP; Site: left antecubital; 6 16:30 Follow up: Response: No adverse reaction; Nausea unchanged kc6 16:44 CANCELLED (client had a bowel movementt): Dulcolax (bisacodyl) Suppository 10 mg [place] oncekc6 17:13 Drug: morphine 4 mg Route: IVP; Infused Over: 4 mins; Site: left antecubital; [facility] 17:45 Follow up: Response: No adverse reaction; Pain is decreased; RASS: Drowsy (-1) kc6 17:13 Drug: Zofran (Ondansetron) 4 mg Route: IVP; Site: left antecubital; kc6 17:45 Follow up: Response: No adverse reaction; Nausea is decreased kc6 17:25 CANCELLED (Physician Discretion): Zofran (Ondansetron) 4 mg IVP once; over 2 minutes kc6 17:26 CANCELLED (Physician Discretion): morphine 4 mg IVP once over 4 mins kc6 18:09 Drug: Rocephin (cefTRIAXone) 1 grams Route: IV; Rate: calculated rate; Site: left kc6 antecubital; 19:05 Drug: Dilaudid (HYDROmorphone) 1 mg Route: IVP; Site: left antecubital; kc6 19:30 Drug: Heparin (HI-Bolus No thrombolytic) - HEParin 60 units/kg {Co-Signature: jono spencer (Owen Vargas RN).} {Note: 5500 units .} Route: IVP; Site: left antecubital; 19:44 Drug: Heparin (DVT/PE Drip) 1200 units/hr - (HEParin 17862 units, D5W 500 ml) {Co-Signature: jono (Owen Vargas RN).} {Note: initiated at 1200 units/hrr.} Route: IV; Rate: calculated rate; Site: left antecubital; 20:45 Drug: NS 0.9% 250 ml Route: IV; Rate: calculated rate; Site: left antecubital; 21:08 Drug: NS 0.9% 1000 ml Route: IV; Rate: 50 ml/hr; Site: left antecubital; 06/08 00:20 Drug: Dilaudid (HYDROmorphone) 1 mg Route: IVP; Site: left antecubital; 00:28 Follow up: Response: No adverse reaction; Marked relief of symptoms Medication: 06/07 16:41 VIS not applicable for this client. ph Outcome: 18:29 ER care complete, transfer ordered by . sera 06/08 00:29 Patient left the ED. tj Signatures: Vera Aponte RN RN kl Ballard, Brenda, RN RN bb Hall, Patricia, RN RN ph Page, Corey, PA PA Mirna Wiseman RN RN kc Owen Vargas RN jbDonis Corrections: (The following items were deleted from the chart) 06/07 16:18 16:12 Reassessment: ph ph : 18:08 No provider procedures requiring assistance completed. kc6 kc6 : 18:08 Patient admitted, IV remains in place. kc6 kc6
--- NOTE | 2022-06-07 18:29 | EDPHYS ---
Physician Documentation [facility] Name: Carolyn Piper Age: 71 yrs Sex: Female : 1950 Arrival Date: 06/07/2022 Time: 15:55 Bed 4 Private MD: ED Physician Abram Johnson HPI: 06/07 16:00 This 71 yrs old Black Female presents to ER via EMS with complaints of Leg Pain. cp 16:00 The patient presents with pain, that is acute. The complaints affect the left leg. cp Context: the patient is not able to bear weight, the patient is not able to ambulate. Onset: The symptoms/episode began/occurred suddenly, today. 16:00 Associated signs and symptoms: Pertinent positives: numbness, reports left foot feels cp "cold", Pertinent negatives fever, warmth. 16:00 Treatment prior to arrival includes: EMS administered fentanyl. Severity of symptoms: cp in the emergency department the symptoms are unchanged, despite EMS interventions. Historical: - Allergies: 15:58 acyclovir; kc6 15:58 fameiclonir; kc6 15:58 Propafenone; kc6 15:58 Valtrex; kc6 - PMHx: 15:58 Anemia; Atrial Fib; blood clot; CHF; Chronic pain; CVA; Diabetes - IDDM; GI disease; kc6 Gout; Hyperlipidemia; Hypertension; Renal Disease; liver failure; Lupus erythematosus; sciatica; - Immunization history:: Client reports receiving the 2nd dose of the Covid vaccine, Flu vaccine is not up to date. - Social history:: Smoking status: Patient reports the use of cigarette tobacco products, smokes one pack cigarettes per day. ROS: 16:05 Constitutional: Negative for body aches, chills, fever, poor PO intake. cp 16:05 Eyes: Negative for injury, pain, redness, and discharge. cp 16:05 ENT: Negative for drainage from ear(s), ear pain, sore throat, difficulty swallowing, difficulty handling secretions. 16:05 Cardiovascular: Negative for chest pain, palpitations. 16:05 Respiratory: Negative for cough, shortness of breath, wheezing. 16:05 Abdomen/GI: Negative for abdominal pain, vomiting, diarrhea, constipation. 16:05 Back: Negative for injury or acute deformity. 16:05 MS/extremity: Positive for pain, paresthesias, of the left leg, Negative for injury or acute deformity, deformity. 16:05 Neuro: Positive for weakness, of the left leg, Negative for altered mental status, dizziness, headache. 16:05 All other systems are negative. Exam: 16:10 Constitutional: The patient appears in no acute distress, alert, awake, cp non-diaphoretic, non-toxic, well developed, well nourished, in obvious pain, uncomfortable. 16:10 Head/Face: Normocephalic, atraumatic. cp 16:10 Eyes: Periorbital structures: appear normal, Conjunctiva: normal, no exudate, no injection, Sclera: no appreciated abnormality, Lids and lashes: appear normal, bilaterally. 16:10 ENT: External ear(s): are unremarkable, Nose: is normal, Mouth: Lips: moist, Oral mucosa: pink and intact, moist, Posterior pharynx: is normal, airway is patent, no erythema, no exudate. 16:10 Neck: ROM/movement: is normal, is supple, without pain, no range of motions limitations. 16:10 Chest/axilla: Inspection: normal. 16:10 Cardiovascular: Rate: bradycardic, Rhythm: regular, Edema: ankle edema, that is mild, JVD: is not appreciated. 16:10 Respiratory: the patient does not display signs of respiratory distress, Respirations: normal, no use of accessory muscles, no retractions, labored breathing, is not present, Breath sounds: are clear throughout, no decreased breath sounds, no stridor, no wheezing. 16:10 Abdomen/GI: Inspection: obese Bowel sounds: active, all quadrants, Palpation: soft, in all quadrants, mild abdominal tenderness, in all quadrants. 16:10 Back: CVA tenderness, is absent, vertebral tenderness, is not appreciated. 16:10 Musculoskeletal/extremity: Extremities: noted in the left leg: severe pain, skin cool and dry with no open wounds, pain with passive ROM. 16:10 Skin: cellulitis, is not appreciated, no rash present. 16:10 Neuro: Orientation: to person, place \\T\\ time. Mentation: is normal. Vital Signs: 15:56 BP 148 / 62; Pulse 59; Resp 18 S; Pulse Ox 100% on R/A; Weight 68.49 kg (R); Height 5 kc6 ft. 10 in. (177.80 cm) (R); Pain 10/10; 17:00 BP 143 / 54; Pulse 60; Resp 11 S; Temp 97.8(O); Pulse Ox 100% on R/A; kc6 18:09 BP 149 / 45; Pulse 60; Resp 21 S; Pulse Ox 100% on 3 lpm NC; Pain 0/10; kc6 19:00 BP 178 / 65; Pulse 60; Pulse Ox 95% on R/A; kl 20:00 BP 165 / 68; Pulse 60; Resp 17; Temp 98.2(TE); Pulse Ox 98% ; kl 22:05 BP 170 / 82; Pulse 60; Resp 17; Pulse Ox 100% on R/A; kl 15:56 Body Mass Index 21.67 (68.49 kg, 177.80 cm) kc6 MDM: 16:01 Patient medically screened. cp 18:55 Data reviewed: vital signs, nurses notes, lab test result(s), EKG, radiologic studies, cp plain films, ultrasound. 18:55 Consideration of Admission/Observation will transfer for vascular consultation. I cp considered the following discharge prescriptions or medication management in the emergency department Medications were administered in the Emergency Department. See MAR. Test considered but Not performed: CT: angio of lower extremity. Care significantly affected by the following chronic conditions: Diabetes, Hypertension, Chronic Kidney Disease. Counseling: I had a detailed discussion with the patient and/or guardian regarding: the historical points, exam findings, and any diagnostic results supporting the discharge/admit diagnosis, lab results, radiology results, the need to transfer to another facility. 20:05 ED course: spoke with vascular surgeon DR Oliver \\T[facility] who will consult and cp requests transfer to hospitalist services. 06/07 15:59 Order name: Basic Metabolic Panel cp 06/07 15:59 Order name: CBC with Diff cp 06/07 15:59 Order name: Magnesium cp 06/07 16:00 Order name: Urine Microscopic Only cp 06/07 16:32 Order name: CBC with Automated Diff; Complete Time: 17:21 EDMS 06/07 17:22 Interpretation: Normal except: HGB 11.1; HCT 34.9; MCHC 31.7; PLT 116; RDW 16.4; LUZ MARIA% cp 82.0; LYM% 11.6. 06/07 16:41 Order name: Basic Metabolic Panel; Complete Time: 17:21 EDMS 06/07 17:22 Interpretation: Normal except: NA 133; GLUC 161; BUN 90; CRE 3.63; GFR 13. cp 06/07 15:59 Order name: US Extremity Venous Unilateral Ltd 06/07 15:59 Order name: Lower Extremity Artery Uni Ltd US 06/07 16:41 Order name: Magnesium; Complete Time: 17:21 EDMS 06/07 16:43 Order name: Urine Dipstick-Ancillary; Complete Time: 17:21 EDMS 06/07 17:22 Interpretation: Normal except: UBLD Trace-lysed; UPROT Trace; UESTR 2+. 06/07 17:10 Order name: Urine Microscopic Only; Complete Time: 17:21 EDMS 06/07 17:22 Interpretation: Normal except: UWBC >50; UBACT 20-50; HYAL 5-10; UWBC Clump Moderate. 06/07 18:38 Order name: SARS RAPID kc6 06/07 19:03 Order name: SARS-COV-2 Antigen Rapid; Complete Time: 19:05 EDOH 06/07 21:16 Order name: Urine Culture EDOH 06/07 15:59 Order name: XRAY Hip LEFT 2 view 06/07 15:59 Order name: XRAY Pelvis 06/07 17:17 Order name: RAD; Complete Time: 17:21 EDMS 06/07 17:19 Order name: RAD; Complete Time: 17:21 EDMS 06/07 17:29 Order name: CT Abd/Pelvis - Without Contrast 06/07 18:04 Order name: US; Complete Time: 18:23 EDMS 06/07 18:13 Order name: US; Complete Time: 18:23 EDMS 06/07 18:27 Interpretation: Report reviewed. 06/07 18:42 Order name: CT; Complete Time: 18:54 EDMS 06/07 18:54 Interpretation: Report reviewed. 06/07 15:59 Order name: EKG; Complete Time: 16:00 cp 06/07 15:59 Order name: Cardiac monitoring; Complete Time: 16:44 06/07 15:59 Order name: EKG - Nurse/Tech; Complete Time: 16:44 cp 06/07 15:59 Order name: IV Saline Lock; Complete Time: 16:01 cp 06/07 15:59 Order name: Labs collected and sent; Complete Time: 16:44 cp 06/07 15:59 Order name: O2 Per Protocol; Complete Time: 16:01 cp 06/07 15:59 Order name: O2 Sat Monitoring; Complete Time: 16:01 cp 06/07 16:00 Order name: Urine Dipstick-Ancillary (obtain specimen); Complete Time: 16:44 cp Administered Medications: 16:02 Drug: morphine 4 mg Route: IVP; Infused Over: 4 mins; Site: left antecubital; kc6 16:30 Follow up: Response: No adverse reaction; Pain is unchanged, physician notified; RASS: 6 Alert and Calm (0) 16:02 Drug: Zofran (Ondansetron) 4 mg Route: IVP; Site: left antecubital; kc6 16:30 Follow up: Response: No adverse reaction; Nausea unchanged kc6 16:44 CANCELLED (client had a bowel movementt): Dulcolax (bisacodyl) Suppository 10 mg PA oncekc6 17:13 Drug: morphine 4 mg Route: IVP; Infused Over: 4 mins; Site: left antecubital; kc6 17:45 Follow up: Response: No adverse reaction; Pain is decreased; RASS: Drowsy (-1) kc6 17:13 Drug: Zofran (Ondansetron) 4 mg Route: IVP; Site: left antecubital; kc6 17:45 Follow up: Response: No adverse reaction; Nausea is decreased kc6 17:25 CANCELLED (Physician Discretion): Zofran (Ondansetron) 4 mg IVP once; over 2 minutes kc6 17:26 CANCELLED (Physician Discretion): morphine 4 mg IVP once over 4 mins kc6 18:09 Drug: Rocephin (cefTRIAXone) 1 grams Route: IV; Rate: calculated rate; Site: left kc6 antecubital; 19:05 Drug: Dilaudid (HYDROmorphone) 1 mg Route: IVP; Site: left antecubital; kc6 19:30 Drug: Heparin (SC-Bolus No thrombolytic) - HEParin 60 units/kg {Co-Signature: jbDonis kl (Owen Vargas RN).} {Note: 5500 units .} Route: IVP; Site: left antecubital; 19:44 Drug: Heparin (DVT/PE Drip) 1200 units/hr - (HEParin 97859 units, D5W 500 ml) kl {Co-Signature: jono (Owen Vargas RN).} {Note: initiated at 1200 units/hrr.} Route: IV; Rate: calculated rate; Site: left antecubital; 20:45 Drug: NS 0.9% 250 ml Route: IV; Rate: calculated rate; Site: left antecubital; kl 21:08 Drug: NS 0.9% 1000 ml Route: IV; Rate: 50 ml/hr; Site: left antecubital; kl 06/08 00:20 Drug: Dilaudid (HYDROmorphone) 1 mg Route: IVP; Site: left antecubital; 00:28 Follow up: Response: No adverse reaction; Marked relief of symptoms kl Disposition Summary: 06/07/22 18:29 [facility] Reason: Higher level of care cp Condition: Stable cp Problem: new cp Symptoms: have improved cp Accepting Physician: Doctor(06/08/22 00:29) tj Diagnosis - Unspecified kidney failure cp - UTI/ Urinary tract infection, site not specified cp - Occlusion of Left Posterior Tibial and Dorsalis Pedis Arteries cp Forms: - Medication Reconciliation Form cp - SBAR form cp Addendum: 06/10/2022 08:35 Co-signature as Attending Physician, Abram Johnson MD. b s3 Signatures: Dispatcher [employer] EDMS Vera Aponte RN RN kl Page, Corey, PA PA cp Mirna Sampson RN RN kc6 Stein, Brandon, MD MD bs3 Owen Vargas RN jb4 Corrections: (The following items were deleted from the chart) 06/07 16:44 16:10 Dulcolax (bisacodyl) Suppository 10 mg PA once ordered. cp kc6 17:25 17:21 Zofran (Ondansetron) 4 mg IVP once; over 2 minutes ordered. cp kc6 17:26 17:21 morphine 4 mg IVP once over 4 mins ordered. cp kc6 18:57 18:29 Doctor cp cp 19:11 18:29 Pain in left leg cp cp 19:11 18:57 Doctor cp cp 06/08 00:29 06/07 19:11 Doctor cp kl 06/08 23:56 23:52 Constitutional: The patient appears in no acute distress, alert, awake, cp non-diaphoretic, non-toxic, well developed, well nourished, in obvious pain, uncomfortable, cp
--- NOTE | 2022-06-07 18:42 | RAD REPORT ---
EXAM DESCRIPTION: CTAbdomen Pelvis Wo Contrast - 06/07/2022 6:29 pm CLINICAL HISTORY: right hip pain COMPARISON: Abdomen Pelvis Wo Contrast dated 08/06/2017; Abdomen Angio dated 04/25/2016; Abdomen Pe lvis W Contrast dated 04/24/2016; Abdomen Pelvis W Contrast dated 01/21/2016 TECHNIQUE: CT of the abdomen and pelvis was performed. All CT scans are performed using dose optimization technique as appropriate and may include automated exposure control or mA/KV adjustment according to patient size. FINDINGS: Lower chest: No acute abnormality. Pacemaker leads. Liver: No acute abnormality or suspicious lesions. Biliary: No biliary ductal dilatation. Stomach: No significant focal abnormality. Duodenum: No significant focal abnormality. Pancreas: No significant abnormality. Spleen: No significant abnormality. Adrenal: No suspicious lesions. Kidney/ureter: No hydronephrosis. No renal calculi. Retroperitoneum: No retroperitoneal adenopathy. Vascular: No aneurysm. Atherosclerosis. Bowel: Diverticulosis. No evidence acute diverticulitis . Peritoneum: No ascites or free air. Bladder: Mild circumferential bladder wall thickening. Reproductive: Hysterectomy. Bones: No acute fracture. L4 through S1 fusion. Multilevel degenerative changes are present in the sp ine. Other: Implant in the right aspect of the abdominal wall. This may be a pain pump. IMPRESSION: No acute intra-abdominal or pelvic finding.
[2022-06-07] MEDS ORDERED: HYDROMORPHONE HCL 1 MG/ML INJ ONE (19:02)
[2022-06-07 19:03] LABS: SARS-CoV-2 Antigen Rapid Res Negative (Negative)
[2022-06-07] MEDS ORDERED: HEPARIN/D5W 25,000 UNIT/500 ML BAG IV ONE (19:37)
[2022-06-07] MEDS ORDERED: HEPARIN 5000 UNIT/ML 1 ML VIAL ONE (19:37)
[2022-06-07] MEDS ORDERED: NA CHLORIDE 0.9% 1,000 ML ONE (20:54)
[2022-06-08] MEDS ORDERED: HYDROMORPHONE HCL 1 MG/ML INJ ONE (00:16)
[2022-06-08 01:02] VITALS: TEMP 98.2
[2022-06-08 01:03] VITALS: BP 170/82; O2SAT 100
--- NOTE | 2022-06-08 11:53 | EKG ---
Test Date: 2022-06-07 Test Time: 16:44:04 Special Duty Nurse: NIKKIE MEASUREMENT RESULTS: Intervals: Rate: 60 MD: QRSD: 166 QT: 526 QTc: 526 [place]: P: MD: QRS: -87 T: 59 INTERPRETIVE STATEMENTS: Electronic ventricular pacemaker Compared to ECG 01/20/2017 09:44:37 No significant changes Electronically Signed On 06-08-22 11:51:18 COLLISION TECHNICIAN by Serafin Viera
== END 2022-06-08 00:29 | disposition short-term general hospital (02) ==
LOC: ER 15:34
DX: I74.3 Embolism and thrombosis of arteries of the lower extremities (principal); N39.0 Urinary tract infection, site not specified; E11.22 Type 2 diabetes mellitus with diabetic chronic kidney disease; N18.9 Chronic kidney disease, unspecified; F17.210 Nicotine dependence, cigarettes, uncomplicated; Z88.8 Allergy status to other drugs, medicaments and biological substances; Z20.822 Contact with and (suspected) exposure to COVID-19
CPT/HCPCS: 93005; 87088; 85025; 87086; 80048; 36415; 83735; 87077; 87186; 74176; 72170; 73502; 93926; 93971; 51702; 96375; 96374; 99285; 87811; J1644 ×3; J1170 ×2; J7030; J2405 ×2; 81003; 81015

== ENCOUNTER 2023-02-07 10:35 | Inpatient (IN) | payer OTHER ==
--- OUTSIDE RECORDS SUMMARY | 2023-02-07 11:01 | XMS REPORT | Continuity of Care Document ---
:1950 Author Organization [facility] t Address [address] [place] [address] Care Team Providers Name Role Phone Fidelia Mi Primary Care Physician [phone] SISI GUTIERREZ NATASHA Attending Clinician Unavailable Keshia Chaves Attending Clinician Unavailable SHERICE RODRIGUEZ Attending Clinician Unavailable STACY MUSTAFA Attending Clinician Unavailable DONG ANTONIO Attending Clinician Unavailable AALIYAH ROGERS Attending Clinician Unavailable LANDRY BENEDICT Attending Clinician Unavailable JAMES MEI Attending Clinician Unavailable OLADUNJOYE, MUSA OMOTOLA Attending Clinician Unavailable Lars HOSKINS, Danita Attending Clinician SUDHIR LANE Attending Clinician Unavailable SUDHIR LANE Attending Clinician Unavailable KARUNA DURANT Attending Clinician Unavailable Elena Gregg MA Attending Clinician Unavailable Jolly Ash DO Attending Clinician [phone] Berta HOSKINS, Luh Attending Clinician Amalia HOSKINS, Ramsey Attending Clinician Jayson Barr MD Attending Clinician Lars HOSKINS, Danita Hernandez Attending Clinician DANITA SOUSA Attending Clinician Unavailable Elma Jiménez MD Attending Clinician Katy HOSKINS, Waleska Majano Attending Clinician Reno Kong MD Attending Clinician Darwin Mai MD Attending Clinician [phone] Lala HOSKINS, Mirian Xiao Attending Clinician [phone] Isabela Quinn MD Attending Clinician ISABELA QUINN Attending Clinician Unavailable Torey Doan MD Attending Clinician Jun Montoya MD Attending Clinician [phone] Gianni Jaramillo MD Attending Clinician [phone] Brody Mazariegos MD Attending Clinician Jackie Mayen MD Attending Clinician [phone] Lashae Fowler MD Attending Clinician JACKIE MAYEN Attending Clinician Unavailable Rohit Freitas MA Attending Clinician Unavailable Magno HOSKINS, Rafy Piña Attending Clinician [phone] Ruthie HOSKINS, Ryann Mcgill Attending Clinician [phone] Doctor Unassigned, Rosser Attending Clinician Unavailable Dwain Chang MA Attending Clinician Unavailable Trey Rodarte MD Attending Clinician Honey HOSKINS, Oliver Dial Attending Clinician Liv HOSKINS, Patria Attending Clinician [phone] Monty Bender Attending Clinician NEREYDA SPENCER Attending Clinician Unavailable Nereyda Spencer DO Attending Clinician Yulia HOSKINS, Monty Cerrato Attending Clinician Sergio Boone MD Attending Clinician Noemi Miller MA Attending Clinician Unavailable Lacey HATHAWAY, Trey Attending Clinician BEAU DIEGO Attending Clinician Unavailable Gladys Henderson MA Attending Clinician Unavailable ISAEL MERA Attending Clinician Unavailable Bee Patton MA Attending Clinician Unavailable Evy Clements Attending Clinician Unavailable MARTHA Attending Clinician Unavailable TREY RAHMAN Attending Clinician Unavailable Beau Diego DO Attending Clinician Minerva Terry MA Attending Clinician Unavailable Nigel HOSKINS, Sendil K.H. Attending Clinician Sherice Rodriguez MD Attending Clinician Ambrocio Nunez CRNA Attending Clinician Only, [facility] Test Attending Clinician Unavailable Gramm Marley HATHAWAY Attending Clinician Unavailable MONTY BENDER Attending Clinician Unavailable Outpatient, Pm/Icd Check Attending Clinician Unavailable JOHN JENNINGS Attending Clinician Unavailable Lab, Ang - Db Attending Clinician Unavailable NGIEL, SENDIL K.H. Attending Clinician Unavailable 2, Adc Lab Attending Clinician Unavailable Dong Antonio MD Attending Clinician Ede HOSKINS, Isael Attending Clinician Sudhir Lane MD Attending Clinician Maura Roach MA Attending Clinician Unavailable Shi Porter MA Attending Clinician Unavailable Lab, Adc Fam Pob I Attending Clinician Unavailable ARTEMIO HAYNES Attending Clinician Unavailable PADDY AYON Attending Clinician Unavailable TOR MARTINES Attending Clinician Unavailable MARIELA CONSTANTINO Attending Clinician Unavailable Elicia Clements LMSW Attending Clinician SOUTH, DEVICE Attending Clinician Unavailable [facility] Attending Clinician Unavailable Paddy Macias Attending Clinician HEMATPOLETA, LANDRY Attending Clinician Unavailable AALIYAH ROGERS M.D. Attending Clinician Unavailable JOSE MURO Attending Clinician Unavailable SE, VENOUS Attending Clinician Unavailable SUSHANT VAUGHN M.D. Attending Clinician Unavailable AMBREEN_CARLOSA Attending Clinician Unavailable JOSY MANZANARES M.D. Attending Clinician Unavailable SE, ECHO Attending Clinician Unavailable SE, NUCLEAR Attending Clinician Unavailable Therapist, Adc Occup Attending Clinician Unavailable SERGIO BOONE Attending Clinician Unavailable Tamanna Kern OT Attending Clinician Unavailable SALLIE BECK M.D. Attending Clinician Unavailable SISI GUTIERREZ NATASHA Admitting Clinician Unavailable SHERICE RODRIGUEZ Admitting Clinician Unavailable DONG ANTONIO Admitting Clinician Unavailable L[facility] Admitting Clinician Unavailable LASHAE FOWLER Admitting Clinician Unavailable NEREYDA SPENCER Admitting Clinician Unavailable MD MONTY BENDER Admitting Clinician Unavailable MARTHA Admitting Clinician Unavailable Sherice Rodriguez MD Admitting Clinician MONTY BENDER Admitting Clinician Unavailable THOMAS MANNING Admitting Clinician Unavailable Dong Antonio MD Admitting Clinician JOSE MURO Admitting Clinician Unavailable STORMY Admitting Clinician Unavailable Payers Payer Name Policy Type Policy Number Effective Date Expiration Date S leilani [facility] [id number] [facility] [id number] 2020 2020 STARPLUS OON 00:00:00 00:00:00 EXCEPT [facility] [id number] 2021 HMO 00:00:00 [facility] [place] STAR [id number] 2020 PLUS 00:00:00 [facility] STAR [id number] 2022 PLAN 00:00:00 [employer] MEDICARE [id number] 2022 00:00:00 GENERIC MEDICARE [id number] 2022 ADVANTAGE 00:00:00 MEDICARE A B [id number] [employer]LL[employer]/UHC DUAL [id number] 2021 COMP CHOICE PPO 00:00:00 DSNP [facility] WELLMED [id number] 2022 00:00:00 [facility] [id number] 2020 DUAL COMPLETE 00:00:00 CHOICE MEDICAID OF [place] [id number] 2014 00:00:00 MEDICARE PART A [id number] 2013 \\T\\ B 00:00:00 Problems Condition Condition Condition Status Onset Resolution Last Treating Co mments Source Name Details Category Date Date Treatment Clinician Date Symptomati Symptomati Disease [facility] JU[facility]Z (acute JUAREZ (acute Disease [facility]urre [facility] kidney kidney nce [facility] injury) injury) 00:[facility] 00 Center Lower limb Lower limb Disease Active [facility] ischemia ischemia 3[facility] PAD PAD Disease Recurre [facility] (periphera (periphera nce 2-16 Isai kes l artery l artery 00:00: Medica l disease) disease) 00 Center JUAREZ (acute JUAREZ (acute Disease Active M ethodi kidney kidney 5 st injury) injury) 00:00: Hospita 00 l Bilateral Bilateral Disease Active Met hodi foot pain foot pain 09-08 st 00:00: Hospita 00 l Fracture Fracture Disease Active Metho di of left of left 09-08 st inferior inferior 00:00: Hospit a pubic pubic 00 l ramus with ramus with routine routine healing healing Gait Gait Disease Active Methodi disturbanc disturbanc 09-08 st e e 00:00: Hospita 00 l Gastritis Gastritis Disease Active Met h[facility] with with 09-08 st hemorrhage hemorrhage 00:00: Ho spita 00 l Hepatitis Hepatitis Disease Active Met hodi C antibody C antibody 5-19 st test test 00:00: Hospita positive positive 00 l Intertrigo Intertrigo Disease Active M ethodi 5- st 00:00: Hospita 00 l Left leg Left leg Disease Active Metho di pain pain 09-08 st 00:00: Hospita 00 l Osteoarthr Osteoarthr Disease Active M ethodi itis of itis of 5-19 st both knees both knees 00:00: Ho spita 00 l Palpitatio Palpitatio Disease Active M ethodi ns ns 09-08 st 00:00: Hospita 00 l 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 09-08 st 00:00: Hospita 00 l UTI UTI Disease Active Methodi symptoms symptoms 09-08 st 00:00: Hospita 00 l Chronic Chronic Disease Active Methodi musculoske musculoske 09-08 st letal pain letal pain 00:00: Ho spita 00 l Abnormal Abnormal Disease Active 2020-04 Metho di SPEP SPEP 04-30 st 00:00: Hospita 00 l Coccygodyn Coccygodyn Disease [...] ethodi 3-22 st 00:00: Hospita 00 l Open wound Open wound Disease Active M ethodi of left of left 2-24 st lower leg lower leg 00:00: Hosp bharat 00 l Acquired Acquired Disease Active Metho di lymphedema lymphedema 2-24 st of lower of lower 00:00: Hospit a extremity extremity 00 l Impaired Impaired Disease Active 2019-04 Metho di fasting fasting 2-17 st glucose glucose 00:00: Hospita 00 l Iron Iron Disease Active 2019-04 Methodi deficiency deficiency 2-17 st 00:00: Hospita 00 l Chronic Chronic Disease Active 2019-04 Overview: Univ ers GERD GERD 05-16 Formattin ity of 00:00: g of this [place] 00 note Medical might be Branch different from the original. Added automatic ally from request for surgery [id number] Other Other Disease Active 2019-04 Overview: Univer s constipati constipati 05-16 Formattin ity of on on 00:00: g of this [place] 00 note Medical might be Branch different from the original. Added automatic ally from request for surgery [id number] Personal Personal Disease Active 2019-04 Overview: Un shaila history of history of 05-16 Formattin ity of colonic colonic 00:00: g of this [place] polyps polyps 00 note Medical might be Branch different from the original. Added automatic ally from request for surgery [id number] Dysphagia, Dysphagia, Disease Active 2019-04 Overview : Methodi pharyngoes pharyngoes 05-[address] ophageal ophageal 00:00: g of this [facility] kofi phase phase 00 note l might be different from the original. Formattin g of this note might be different from the original. Added automatic ally from request for surgery [id number] matting of this note might be different from the original. Added automatic ally from request for surgery [id number] Iron Iron Disease Active 2019-04 Overview: Method i deficiency deficiency 05-[address] anemia anemia 00:00: [facility] l might be different from the original. Formattin g of this note might be different from the original. 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 1-[address] gout gout 00:00: Hospita without without 00 l tophus tophus Chronic Chronic Disease Active 2019-04 Methodi obstructiv obstructiv 1-12 st e e 00:00: Hospita pulmonary pulmonary 00 l disease disease Chronic Chronic Disease Active 2019-04 [place] heart heart 0-29 Health failure failure 00:00: with with 00 reduced reduced ejection ejection fraction fraction and and diastolic diastolic dysfunctio dysfunctio n n CKD CKD Disease Active 2019-04 [facility] (chronic (chronic 0 Health kidney kidney 00:00: disease) disease) 00 Essential Essential Disease Active 2019-04 [facility] hypertensi hypertensi 0 He alth on on 00:00: 00 Anticoagul Anticoagul Disease Active 2019-04 U T ant ant 0 Health long-term long-term 00:00: use use 00 Pacemaker Pacemaker Disease Active 2019-04 [facility] reprogramm reprogramm 0 He alth ing/check ing/check 00:00: 00 Persistent Persistent Disease Active 2019-04 U T atrial atrial 0 Health fibrillati fibrillati 00:00: on on 00 Abnormal Abnormal Disease Active 2019-04 Metho di nuclear nuclear 0 st stress stress 00:00: Hospita test test 00 l Chronic Chronic Disease Active 2019-04 Methodi venous venous [address] insufficie insufficie 00:00: Ho spita ncy ncy 00 l Dyslipidem Dyslipidem Disease Active 2019-04 M [address] ia ia 0 st 00:00: Hospita 00 l 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 He alth artery artery 00:00: stenosis stenosis 00 Memory Memory Disease Active Methodi impairment impairment 11-14 st 00:00: Hospita 00 l Chronic Chronic Disease Active Univers insomnia insomnia 11-12 ity of 00:00: [place] 00 Medical Branch Chronic Chronic Disease Active Univers anemia anemia 7 ity of 00:00: [place] [address] Medical Branch Neuropathy Neuropathy Disease Active M ethodi of lower of lower 7 st extremity extremity 00:00: Hosp bharat 00 l Chronic Chronic Disease Active Methodi dislocatio dislocatio 11-09 st n of right n of right 00:00: Ho spita shoulder shoulder 00 l Tobacco Tobacco Disease Active UT abuse abuse 7 Health 00:00: 00 History of History of Disease Active U T pulmonary pulmonary 2-04 Heal th embolism embolism 00:00: 00 Sjogren's Sjogren's Disease Active UT syndrome syndrome 2-04 Health 00:00: 00 Urinary Urinary Disease Active Methodi incontinen incontinen 05-13 st ce ce 00:00: Hospita 00 l Urinary Urinary Disease Active Methodi tract tract 1 st infectious infectious 00:00: Ho spita disease disease 00 l Vitamin D Vitamin D Disease Active Met hodi deficiency deficiency 05-13 st 00:00: Hospita 00 l Lower Lower Disease Active Methodi extremity extremity 21 st edema edema 00:00: Hospita 00 l Coronary Coronary Disease Active Metho di atheroscle atheroscle 05-13 st rosis rosis 00:00: Hospita 00 l Edema of Edema of Disease Active Metho di both lower both lower 05-13 st extremitie extremitie 00:00: Ho spita s s 00 l Excessive Excessive Disease Active Met hodi anticoagul anticoagul 05-13 st ation ation 00:00: Hospita 00 l Gout Gout Disease Active Methodi 05-13 st 00:00: Hospita 00 l Hyperlipid Hyperlipid Disease Active M ethodi emia emia 05-13 st 00:00: Hospita 00 l 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 1-15 st of sacral of sacral 00:00: Hosp bharat region region 00 l Reduced Reduced Disease Active Univers mobility mobility 1-15 ity of 00:00: [place] 00 Medical Branch 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, syndrome, 00:00: Hosp [facility]at lumbar lumbar 00 l region region 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 1-15 st of sacral of sacral 00:00: Hosp bharat region region 00 l Dependence Dependence Disease Active M ethodi on on 15 st supplement supplement 00:00: Ho spita al oxygen al oxygen 00 l DM DM Disease Active Methodi (diabetes (diabetes 1-15 st mellitus) mellitus) 00:00: Hosp bharat type II, type II, 00 l controlled controlled , with , with peripheral peripheral vascular vascular disorder disorder Vascular Vascular Disease Active Unive rs insufficie insufficie 8-15 it y of ncy of ncy of 00:00: [place] intestine intestine 00 Medi nuria Branch Chronic Chronic Disease Active Univers congestive congestive 8-15 it y of heart heart 00:00: [place] failure failure 00 Medical Branch Congestive Congestive Disease Active 2019-0 M ethodi heart heart 8-15 st failure [...] chronic d chronic kidney kidney disease disease Gastrointe Gastrointe Disease Active Overview : Methodi stinal stinal 05-[address] hemorrhage hemorrhage 00:00: g of this Hospita 00 note l might be different from the original. 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 [address] erythemato erythemato 00:00: Ho spita swetha swetha 00 l 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 [address] 00:00: Hospita 00 l Closed Closed Disease Active 2016-04 Methodi displaced displaced 05-19 st fracture fracture 00:00: Hospit a of lateral of lateral 00 l end of end of right right clavicle clavicle with with routine routine healing healing Limb pain Limb pain Disease Active [facility] 9-06 Health 00:00: 00 Chronic Chronic Disease Active 2015-04 Methodi atrial atrial 0-05 st fibrillati fibrillati 00:00: Ho spita on on 00 l Malnutriti Malnutriti Disease Active 2015-04 M ethodi on on 0-03 st compromisi compromisi 00:00: Ho spita ng bodily ng bodily 00 l function function On total On total Disease Active 2015-04 Metho di parenteral parenteral 0-03 st nutrition nutrition 00:00: Hosp bharat (TPN) (TPN) 00 l CKD CKD Disease Active Univers (chronic (chronic 9-30 ity of kidney kidney 00:00: [place] disease), disease), 00 Medi nuria stage IV stage IV Branch Abdominal Abdominal Disease Active Met hodi pain pain 01-20 st 00:00: Hospita 00 l 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 00:00: Hospita thrombosis thrombosis 00 l Respirator Respirator Disease Active M ethodi y y 01-20 insufficie insufficie 00:00: Ho spita ncy ncy 00 l Post-op Post-op Disease Active Methodi pain pain 01-20 st 00:00: Hospita 00 l Essential Essential Disease Active Met hodi hypertensi hypertensi 01-20 st on on 00:00: Hospita 00 l Hypokalemi Hypokalemi Disease Active M ethodi a a 01-20 00:00: Hospita 00 l CKD CKD Disease Active Methodi (chronic (chronic 01-20 st kidney kidney 00:00: Hospita disease) disease) 00 l Shortness Shortness Disease Active Met hodi of breath of breath 08-30 st 00:00: Hospita 00 l Cutaneous Cutaneous Disease Active Met hodi candidiasi candidiasi 08-30 st s s 00:00: Hospita 00 l Herpes Herpes Disease Active Methodi zoster w/ zoster w/ 5- st nervous nervous 00:00: Hospita system system 00 l complicati complicati on on Hypertensi Hypertensi Disease Active U nivers on on ity of [facility] CKD CKD Problem Active UT (chronic (chronic [...] routine healing, healing, subsequent subsequent encounter encounter [facility] terminal manager Problem Active UT (current) (current) Phys ici [...] ents Source Name Type Date Date Clinician ACYCLOVI Allergy [facility] OTHER Allergy Active [facility] Medical [place] PROPAFEN Allergy Active [facility] ONE 2-16 [facility] 00:[facility]: Medical 00 [place] VALACYCL Allergy Active [facility] OVIR 2-16 [facility] 00:00: Medical 00 [place] Acyclovi Propensi Active [facility] ty to 2-16 [facility] adverse 00:00: Medical reaction 00 Center s Other Propensi Active Fameiclon [facility] ty to 2-16 ir [facility] adverse 00:00: Medical reaction 00 Center s Propafen Propensi Active [facility] one ty to 2-16 [facility] adverse 00:00: Medical reaction 00 Center s Valacycl Propensi Active [facility] ovir ty to 2-16 [facility] adverse 00:00: Medical reaction 00 Center s Famciclo Allergy Active UT vir to 28 [facility] 00:00: e 00 Famciclo Propensi Active Unknown - 2019-04 Uni vers vir ty to See comments 0-21 ity of adverse 00:00: [place] reaction 00 Medical s Branch FAMCICLO DRUG Active Unknown-Cmnt 2019-04 Un shaila VIR INGREDI 0-21 ity of 00:00: [place] 00 Medical Branch ciproflo DA Active U 2017-0 [facility] xacin 3[facility]19 [place] 00:[facility]: e 00 [facility] famciclo DA [facility] 2018[facility] [place] propafen DA Active U 2017-0 [facility] one 3-19 [place] 00:[facility]: e 00 Medical [place] valacycl DA Active U 2017-0 [facility] ovir 3-19 [place] [facility] e 00 Medical [place] Acyclovi Propensi Active Method i r ty [...] (See Me thodi xacin ty to Comments) 09-29 st adverse 00:00: Hospita reaction 00 l [...] ity of 00:00: [place] 00 Medical Branch Propache Propensi Active Other (See 2014-04 Me thodi m ty to Comments) 0-15 st adverse 00:00: Hospita reaction 00 l s to drug Famvir Allergy Active Rash [facility] TABS to drug Physici (finding ans ) Social History Social Habit Start Date Stop Date Quantity Comments Source History [facility] Health Alcohol Std Drinks History [facility] Health Alcohol Binge History [facility] University o f Alcohol Comment [place] Med ical Branch History SDOH [facility] Sexual orientation Method ist Hospital History [facility] 2022-08-22 2022-08-[address] [facility] Transport Med 00:00:00 00:00:[address] History [facility] 2022-08-22 2022-08-[address] [facility] Housing Unable to 00:00:00 00:00:00 Medical Center Pay History [facility] 2022-08-22 2022-08-[address] [facility] Housing Places 00:00:00 00:00:00 Medical Ce nter Lived History [facility] 2022-08-22 2022-08-[address] [facility] Housing Homeless 00:00:00 00:00:00 Medical Center Last Year Exposure to 2022-08-11 2022-08-[address] [facility] SARS-CoV-2 (event) 00:00:00 19:36:00 Medica l Center History of Social 2022-06-27 2022-06-[address] function 00:00:00 00:00:00 Hospital History of tobacco 2022-06-[address] [facility] use 00:00:00 Medical Center Alcohol intake 2022-05-09 2022-05-09 Current Scientologist 00:00:00 00:00:00 non-drinker of Hospital alcohol (finding) Tobacco use and 2022-02-02 2022-02-02 Smokeless Scientologist exposure 00:00:00 00:00:00 tobacco non-user Hospital Cigarettes smoked 2022-02-02 2022-02-[address] current [facility]orted History SDOH 2020-11-17 2020-11-17 1 [place] [facility] Alcohol Frequency 00:00:00 00:00:00 Sex [birth year] Scientologist 00:00:00 00:00:00 Hospital Smoking Status Start Date Stop Date Source Ex-smoker 2022-08-22 00:00:00 2022-08-22 00:00:00 [facility] Smokes tobacco daily 2022-06-08 00:00:00 [facility] Never smoker [facility] Medications Ordered Filled Start Stop Current Ordering Indication Dosage Frequency Signature Comments Components Source Medication Medication Date Date Medication? Clinician (SIG) Name Name hydroxychlo Yes [id number] 200mg QD Take 1 Methodi roquine 6-[address] (PLAQUENIL) 00:00: (200 mg Hos kofi 200 mg 00 total) by l tablet mouth daily. hydroxychlo Yes [id number] 200mg QD Take 1 Methodi roquine 6-[address] (PLAQUENIL) 00:00: (200 mg Hos kofi 200 mg 00 total) by l tablet mouth daily. hydroxychlo Yes [id number] 200mg QD Take 1 Methodi roquine 6-[address] (PLAQUENIL) 00:00: (200 mg Hos kofi 200 mg 00 total) by l tablet mouth daily. senna-docus 2023- No 2{tbl} QD Take [address] ate 08-29-08 tablets by Marcelino (SENOKOT S) 00:00: 23:59 mouth in M edical 8.6-50 mg 00 :00 the Center per tablet morning. senna-docus 2023- No 2{tbl} QD Take [address] ate 08-29 05-08 tablets by [facility] (SENOKOT S) 00:00: 23:59 mouth in M edical 8.6-50 mg 00 :00 the Center per tablet morning. senna-docus 3-0 2024- No 2{tbl} QD Take [address] ate 08-29 05-08 tablets by [facility] (SENOKOT S) 00:00: 23:59 mouth in M edical 8.6-50 mg 00 :00 the Center per tablet morning. allopurinoL 2023-0 Yes 100mg QD Take [address] (ZYLOPRIM) 5-08 tablet [facility] 100 MG 16:12: (100 mg Medical tablet 14 total) by Center mouth in the morning. donepeziL 2023-0 Yes 10mg QD Take [address] (ARICEPT) 5-08 tablet (10 Luke s 10 MG 16:12: mg total) Medical tablet 14 by mouth Center nightly. hydrOXYchlo 2023-0 Yes QD Take by [facility] roQUINE 5-08 mouth [facility] (PLAQUENIL) 16:12: daily For M edical 200 mg 14 90 days . Center tablet montelukast 2023-0 Yes 10mg QD Take [address] (SINGULAIR) 5-08 tablet (10 Isai kes 10 mg 16:12: mg total) Medical tablet 14 by mouth Center nightly. lifitegrast 3-0 Yes 1[drp] Q.5D Apply [address] (Xiidra) 5 5-08 drop to [facility] % Dpet 16:12: eye(s) 2 Medical 14 (two) Center times daily. carboxymeth 2023-0 Yes 1[drp] [id number] Apply [address] ylcellulose 5-08 [id number] drop to [facility] sodium 16:12: 3D eye(s) 3 Medical (REFRESH 14 (three) Center OPHT) times daily. allopurinoL 2023-0 Yes 100mg QD Take [address] (ZYLOPRIM) 5-08 tablet [facility] 100 MG 16:12: (100 mg Medical tablet 14 total) by Center mouth in the morning. donepeziL 2023-0 Yes 10mg QD Take [address] (ARICEPT) 5-08 tablet (10 Luke s 10 MG 16:12: mg total) Medical tablet 14 by mouth Center nightly. hydrOXYchlo 2022-0 Yes QD Take by [facility] roQUINE 5-08 mouth [facility] (PLAQUENIL) 16:12: daily For M edical 200 mg 14 90 days . Center tablet montelukast 2022-0 Yes 10mg QD Take [address] (SINGULAIR) 5-08 tablet (10 [facility] 10 mg 16:12: mg total) Medical tablet 14 by mouth Center nightly. lifitegrast 2022-0 Yes 1[drp] Q.5D Apply [address] [facility] [address] [facility] (Xiidra) 5 5-08 [facility] to [facility] Dpet 16:12: eye(s) 2 Medical 14 (two) Center times daily. carboxymeth 3-0 Yes 1[drp] Q.[id number] Apply [address] [facility] ylcellulose 5-08 [id number] drop to [facility] sodium 16:12: 3D eye(s) 3 Medical (REFRESH 14 (three) Center OPHT) times daily. isosorbide 2022-0 2022- No 60mg QD Take [address] [facility] mononitrate 5-08 05-08 tablet (60 [facility] (IMDUR) 60 13:51: 00:00 mg total) M edical MG 24 hr 19 :00 by mouth Center tablet in the morning. ER . aspirin 81 2022-0 2022- No 81mg QD Take [address] [facility] MG chewable 5-08 05-08 tablet (81 [facility] tablet 13:51: 00:00 mg total) Medic al 19 :00 by mouth Center in the morning. hydrALAZINE 2022-0 2022- No 25mg Take [address] [facility] (APRESOLINE 5-08 05-08 tablet (25 [facility] ) 25 MG 13:51: 00:00 mg total) Medi nuria tablet 19 :00 by mouth Center every 8 (eight) hours. HYDROcodone 3-0 2022- No 1{tbl} Take [address] -acetaminop 5-08 05-08 tablet by Isai vaz (NORCO 13:51: 00:00 mouth Medic al 10-325) 19 :00 every 4 Center 10-325 mg (four) per tablet hours as needed for Pain. isosorbide 3-0 3- No 60mg QD Take [address] [facility] mononitrate 5-08 05-08 tablet (60 [facility] (IMDUR) 60 13:51: 00:00 mg total) M edical MG 24 hr 19 :00 by mouth Center tablet in the morning. ER . aspirin 81 2022-0 3- No 81mg QD Take [address] [facility] MG chewable 5-08 05-08 tablet (81 [facility] tablet 13:51: 00:00 mg total) Medic al 19 :00 by mouth Center in the morning. hydrALAZINE 3-0 3- No 25mg Take [address] [facility] (APRESOLINE 5-08 05-08 tablet (25 [facility] ) 25 MG 13:51: 00:00 mg total) Medi nuria tablet 19 :00 by mouth Center every 8 (eight) hours. HYDROcodone 2022-0 3- No 1{tbl} Take [address] -acetaminop 5-08 05-08 tablet by [facility]ai v[facility] (NORCO 13:51: 00:00 mouth Medic al 10-325) 19 :00 every 4 Center 10-325 mg (four) per tablet hours as needed for Pain. isosorbide 2022-0 2022- No 60mg QD Take [address] [facility] mononitrate 5-08 05-08 tablet (60 [facility] (IMDUR) 60 13:51: 00:00 mg total) M edical MG 24 hr 19 :00 by mouth Center tablet in the morning. ER . aspirin 81 2022-0 3- No 81mg QD Take [address] [facility] MG chewable 5-08 05-08 tablet (81 [facility] tablet 13:51: 00:00 mg total) Medic al 19 :00 by mouth Center in the morning. hydrALAZINE 2022-0 3- No 25mg Take [address] [facility] (APRESOLINE 5-08 05-08 tablet (25 [facility] ) 25 MG 13:51: 00:00 mg total) Medi nuria tablet 19 :00 by mouth Center every 8 (eight) hours. HYDROcodone 2022-0 3- No 1{tbl} Take [address] -acetaminop 5-08 05-08 tablet by Isai vaz (NORCO 13:51: 00:00 mouth Medic al 10-325) 19 :00 every 4 Center 10-325 mg (four) per tablet hours as needed for Pain. allopurinoL 2023-0 Yes 100mg QD Take [address] [facility] (ZYLOPRIM) 5-08 tablet [facility] 100 MG 13:51: (100 mg Medical tablet 16 total) by Center mouth in the morning. donepeziL 3-0 Yes 10mg QD Take [address] [facility] (ARICEPT) 5-08 tablet (10 [facility] 10 MG 13:51: mg total) Medical tablet 16 by mouth Center nightly. hydrOXYchlo 2023-0 Yes QD Take by [facility] roQUINE 5-08 mouth [facility] (PLAQUENIL) 13:51: daily For M edical 200 mg 16 90 days . Center tablet montelukast 2022-0 Yes 10mg QD Take [address] [facility] (SINGULAIR) 5-08 tablet (10 [facility] 10 mg 13:51: mg total) Medical tablet 16 by mouth Center nightly. lifitegrast 2022-0 Yes 1[drp] Q.5D Apply [address] (Xiidra) 5 5-08 [facility] to [facility] % Dpet 13:51: eye(s) 2 Medical 16 (two) Center times daily. carboxymeth 2022-0 Yes 1[drp] Q.[id number] Apply [address] [facility] ylcellulose 5-08 [id number] drop to [facility] sodium 13:51: 3D eye(s) 3 Medical (REFRESH 16 (three) Center OPHT) times daily. gabapentin 2022-0 Yes 300mg Q.5D Take [address] [facility] (NEURONTIN) 5-08 capsule [facility] 300 MG 00:00: (300 mg Medical capsule 00 total) by Center mouth in the morning and 1 capsule (300 mg total) before bedtime. promethazin 2022-0 Yes 6.25mg Inject [facility] e 5-08 6.25 mg [facility] (PHENERGAN) 00:00: intravenou Medical IVPB 00 sly every Center 6 (six) hours as needed. dextrose 50 2022-0 Yes 12.5g Inject [address] [facility] % in water 5-08 mLs (12.5 [facility] (dextrose 00:00: g total) Medi nuria 50%, D50W,) 00 intravenou Ce nter Syrg sly as injection needed (blood sugar less than 70 and patient unable to take PO juice or soda). glucagon 1 2022-0 Yes 1mg Inject [address] [facility] mg/mL SolR 5-08 mL (1 mg [facility] injection 00:00: total) Medica l 00 intramuscu Center larly as needed (blood sugar less than 70, patient unable to take PO, AND unable to give D50W due to lack of IV access). lidocaine 2022-0 Yes 2{patch Q24H Place [address] [facility] [address] [facility] (LIDODERM) 5-08 } patches [facility] 4 % patch 00:00: onto the Medi nuria 00 skin in Center the morning. polyethylen 3-0 Yes 17g Q.5D Take [address] [facility] e glycol 5-08 by mouth [facility] (GLYCOLAX) 00:00: in the Medic al 17 gram 00 morning Center packet and 17 g before bedtime. gabapentin 2022-0 Yes 300mg Q.5D Take [address] [facility] (NEURONTIN) 5-08 capsule [facility] 300 MG 00:00: (300 mg Medical capsule 00 total) by Center mouth in the morning and 1 capsule (300 mg total) before bedtime. promethazin 2022-0 Yes 6.25mg Inject [facility] e 5-08 6.25 mg [facility] (PHENERGAN) 00:00: intravenou Medical IVPB 00 sly every Center 6 (six) hours as needed. dextrose 50 2022-0 Yes 12.5g Inject [address] [facility] % in water 5-08 mLs (12.5 [facility] (dextrose 00:00: g total) Medi nuria 50%, D50W,) 00 intravenou Ce nter Syrg sly as injection needed (blood sugar less than 70 and patient unable to take PO juice or soda). glucagon 1 2022-0 Yes 1mg Inject [address] [facility] mg/mL SolR 5-08 mL (1 mg [facility] injection 00:00: total) Medica l 00 intramuscu Center larly as needed (blood sugar less than 70, patient unable to take PO, AND unable to give D50W due to lack of IV access). lidocaine 2022-0 Yes 2{patch Q24H Place [address] [facility] [address] [facility] (LIDODERM) 5-08 } patches [facility] 4 % patch 00:00: onto the Medi nuria 00 skin in Center the morning. polyethylen 2023-0 Yes 17g Q.5D Take [address] e glycol 5-08 by mouth [facility] (GLYCOLAX) 00:00: in the Medic al 17 gram 00 morning Center packet and 17 g before bedtime. gabapentin 0 Yes 300mg Q.5D Take [address] [facility] (NEURONTIN) -08 capsule [facility] 300 MG 00:00: (300 mg Medical capsule 00 total) by Center mouth in the morning and 1 capsule (300 mg total) before bedtime. promethazin Yes 6.25mg Inject [facility] e 08 6.25 mg [facility] (PHENERGAN) 00:00: intravenou Medical IVPB 00 sly every Center 6 (six) hours as needed. dextrose 50 0 Yes 12.5g Inject [address] [facility] % in water 5-08 mLs (12.5 [facility] (dextrose 00:00: g total) Medi nuria 50%, D50W,) 00 intravenou Ce nter Syrg sly as injection needed (blood sugar less than 70 and patient unable to take PO juice or soda). glucagon 1 0 Yes 1mg Inject [address] [facility] mg/mL SolR 5-08 mL (1 mg [facility] injection 00:00: total) Medica l 00 intramuscu Center larly as needed (blood sugar less than 70, patient unable to take PO, AND unable to give D50W due to lack of IV access). lidocaine 0 Yes 2{patch Q24H Place [address] [facility] [address] [facility] (LIDODERM) 08 } patches [facility] 4 % patch 00:00: onto the Medi nuria 00 skin in Center the morning. polyethylen 0 Yes 17g Q.5D Take [address] [facility] e glycol 5-08 by mouth [facility] (GLYCOLAX) 00:00: in the Medic al 17 gram 00 morning Center packet and 17 g before bedtime. bumetanide 2022-0 2023- No 1mg Take [address] [facility] (BUMEX) 1 08-28 05-07 tablet (1 [facility] MG tablet 00:00: 23:59 mg total) Me dical 00 :00 by mouth Center in the morning and 1 tablet (1 mg total) in the evening. Hold for 1 day. Can likely restart on 08/30. atorvastati 2022-0 2023- No 40mg QD Take [address] [facility] n (LIPITOR) 08-28 tablet (40 [facility] 40 MG 00:00: 23:59 mg total) Medica l tablet 00 :00 by mouth Center nightly. ferrous 2023- No 325mg Take [address] [facility] sulfate 325 08-28 tablet [facility] (65 FE) MG 00:00: 23:59 (325 mg Med ical tablet 00 :00 total) by Center mouth daily with breakfast. insulin 2023- No If BS = [facility] regular 08-28 150 or [facility] (HumuLIN 00:00: 23:59 lower, Medica l R,NovoLIN 00 :00 give No Center R) 100 Insulin. unit/mL If BS = injection 151 - 200, give 1 unit. If BS = 201 - 250, give 2 units. If BS = 251 - 300, give 4 units. If BS = 301 - 350, give 6 units. If BS = 351 - 400, give 8 units. If. metoprolol No 25mg QD Take [address] [facility] succinate 08-28 tablet (25 [facility] (TOPROL-XL) 00:00: 23:59 mg total) Medical 25 MG 24 hr 00 :00 by mouth Cent er tablet in the morning. bumetanide 2023- No 1mg Take [address] [facility] (BUMEX) 1 08-28 tablet (1 [facility] MG tablet 00:00: 23:59 mg total) Me dical 00 :00 by mouth Center in the morning and 1 tablet (1 mg total) in the evening. Hold for 1 day. Can likely restart on 08/30. atorvastati No 40mg QD Take [address] [facility] n (LIPITOR) 08-28 tablet (40 [facility] 40 MG 00:00: 23:59 mg total) Medica l tablet 00 :00 by mouth Center nightly. ferrous 2023- No 325mg Take [address] [facility] sulfate 325 08-28 tablet [facility] (65 FE) MG 00:00: 23:59 (325 mg Med ical tablet 00 :00 total) by Center mouth daily with breakfast. insulin 2023- No If BS = [facility] regular 5-08 05-07 150 or [facility] (HumuLIN 00:00: 23:59 lower, Medica l R,NovoLIN 00 :00 give No Center R) 100 Insulin. unit/mL If BS = injection 151 - 200, give 1 unit. If BS = 201 - 250, give 2 units. If BS = 251 - 300, give 4 units. If BS = 301 - 350, give 6 units. If BS = 351 - 400, give 8 units. If. metoprolol 2023- No 25mg QD Take [address] [facility] succinate 08-28 tablet (25 [facility] (TOPROL-XL) 00:00: 23:59 mg total) Medical 25 MG 24 hr 00 :00 by mouth Cent er tablet in the morning. bumetanide 2023- No 1mg Take [address] [facility] (BUMEX) 1 08-28 tablet (1 [facility] MG tablet 00:00: 23:59 mg total) Me dical 00 :00 by mouth Center in the morning and 1 tablet (1 mg total) in the evening. Hold for 1 day. Can likely restart on 08/30. atorvastati No 40mg QD Take [address] [facility] n (LIPITOR) 08-28 tablet (40 [facility] 40 MG 00:00: 23:59 mg total) Medica l tablet 00 :00 by mouth Center nightly. ferrous 2023- No 325mg Take [address] [facility] sulfate 325 08-28 tablet [facility] (65 FE) MG 00:00: 23:59 (325 mg Med ical tablet 00 :00 total) by Center mouth daily with breakfast. insulin 2023- No If BS = [facility] regular 08-28- 150 or [facility] (HumuLIN 00:00: 23:59 lower, Medica l R,NovoLIN 00 :00 give No Center R) 100 Insulin. unit/mL If BS = injection 151 - 200, give 1 unit. If BS = 201 - 250, give 2 units. If BS = 251 - 300, give 4 units. If BS = 301 - 350, give 6 units. If BS = 351 - 400, give 8 units. If. metoprolol 2023- No 25mg QD Take [address] [facility] succinate 5-08 05-07 tablet (25 [facility] (TOPROL-XL) 00:00: 23:59 mg total) Medical 25 MG 24 hr 00 :00 by mouth Cent er tablet in the morning. HYDROcodone 2022-0 2022- No 1{tbl} Take [address] -acetaminop 5-08 05-18 tablet by Isai vaz (NORCO 00:00: 23:59 mouth Medic al 5-325) 00 :00 every 4 Center 5-325 mg (four) per tablet hours as needed for up to 10 days. Max Daily Amount: 6 tablets HYDROcodone 2022-0 2022- No 1{tbl} Take [address] -acetaminop 5-08 05-18 tablet by Isai vaz (NORCO 00:00: 23:59 mouth Medic al 5-325) 00 :00 every 4 Center 5-325 mg (four) per tablet hours as needed for up to 10 days. Max Daily Amount: 6 tablets HYDROcodone 2022-0 2022- No 1{tbl} Take [address] -acetaminop 5-08 -18 tablet by Isai vaz (NORCO 00:00: 23:59 mouth Medic al 5-325) 00 :00 every 4 Center 5-325 mg (four) per tablet hours as needed for up to 10 days. Max Daily Amount: 6 tablets allopurinoL 2023-0 Yes 100mg QD Take [address] [facility] (ZYLOPRIM) 5-02 tablet [facility] 100 MG 01:50: (100 mg Medical tablet 36 total) by Center mouth in the morning. donepeziL 2023-0 Yes 10mg QD Take [address] [facility] (ARICEPT) 5-02 tablet (10 [facility] 10 MG 01:50: mg total) Medical tablet 36 by mouth Center nightly. isosorbide 2023-0 Yes 60mg QD Take [facility] mononitrate 5-02 tablet (60 [facility] (IMDUR) 60 01:50: mg total) Me dical MG 24 hr 36 by mouth Center tablet in the morning. ER . hydrOXYchlo 2023-0 Yes QD Take by [facility] roQUINE 5-02 mouth [facility] (PLAQUENIL) 01:50: daily For M edical 200 mg 36 90 days . Center tablet montelukast 2023-0 Yes 10mg QD Take [address] [facility] (SINGULAIR) 5-02 tablet (10 [facility] 10 mg 01:50: mg total) Medical tablet 36 by mouth Center nightly. aspirin 81 2023-0 Yes 81mg QD Take 1 [facility] chewable 5-02 tablet (81 [facility] tablet 01:50: mg total) Medica l 36 by mouth Center in the morning. hydrALAZINE 2023-0 Yes 25mg Take [address] [facility] (APRESOLINE 5-02 tablet (25 Isai kes ) 25 MG 01:50: mg total) Medic al tablet 36 by mouth Center every 8 (eight) hours. HYDROcodone 2023-0 Yes 1{tbl} Take [address] [facility] [address] [facility] -acetaminop 5-02 tablet by [facility] mabel vaz (NORCO 01:50: mouth Medica l 10-325) 36 every 4 Center 10-325 mg (four) per tablet hours as needed for Pain. lifitegrast 2023-0 Yes 1[drp] Q.5D Apply [address] (Xiidra) 5 5-02 drop to [facility] % Dpet 01:50: eye(s) 2 Medical 36 (two) Center times daily. carboxymeth 2023-0 Yes 1[drp] Q.[id number] Apply [address] [facility] ylcellulose 5-02 [id number] drop to [facility] sodium 01:50: 3D eye(s) 3 Medical (REFRESH 36 (three) Center OPHT) times daily. allopurinoL 2023-0 Yes 100mg QD Take [address] [facility] (ZYLOPRIM) 5-02 tablet [facility] 100 MG 01:50: (100 mg Medical tablet 36 total) by Center mouth in the morning. donepeziL 2023-0 Yes 10mg QD Take [address] [facility] (ARICEPT) 5-02 tablet (10 [facility] 10 MG 01:50: mg total) Medical tablet 36 by mouth Center nightly. isosorbide 2023-0 Yes 60mg QD Take 1 [facility] mononitrate 5-02 tablet (60 [facility] (IMDUR) 60 01:50: mg total) Me dical MG 24 hr 36 by mouth Center tablet in the morning. ER . hydrOXYchlo 2023-0 Yes QD Take by [facility] roQUINE 5-02 mouth [facility] (PLAQUENIL) 01:50: daily For M edical 200 mg 36 90 days . Center tablet montelukast 2023-0 Yes 10mg QD Take [address] [facility] (SINGULAIR) 5-02 tablet (10 [facility] 10 mg 01:50: mg total) Medical tablet 36 by mouth Center nightly. aspirin 81 2023-0 Yes 81mg QD Take 1 [facility] chewable 5-02 tablet (81 [facility] tablet 01:50: mg total) Medica l 36 by mouth Center in the morning. hydrALAZINE 3-0 Yes 25mg Take [address] [facility] (APRESOLINE 5-02 tablet (25 [facility]ai k[facility] ) 25 MG 01:50: mg total) Medic al tablet 36 by mouth Center every 8 (eight) hours. HYDROcodone 3-0 Yes 1{tbl} Take [address] [facility] [address] [facility] -acetaminop 5-02 tablet by [facility] (NORCO 01:50: mouth Medica l 10-325) 36 every 4 Center 10-325 mg (four) per tablet hours as needed for Pain. lifitegrast 3-0 Yes 1[drp] Q.5D Apply [address] (Xiidra) 5 5-02 drop to [facility] % Dpet 01:50: eye(s) 2 Medical 36 (two) Center times daily. carboxymeth 2023-0 Yes 1[drp] Q.[id number] Apply [address] [facility] ylcellulose 5-02 [id number] drop to [facility] sodium 01:50: 3D eye(s) 3 Medical (REFRESH 36 (three) Center OPHT) times daily. allopurinoL 3-0 Yes 100mg QD Take [address] (ZYLOPRIM) 4-03 mg by [facility] 100 MG 16:09: mouth Medical tablet 18 daily. Center donepeziL 3-0 Yes 10mg QD Take [address] [facility] [address] [facility] (ARICEPT) 4-03 by mouth [facility] 10 MG 16:09: nightly. Medical tablet 18 Center isosorbide 3-0 Yes 60mg QD Take [address] [facility] mononitrate 4-03 by mouth [facility] (IMDUR) 60 16:09: daily ER . M edical MG 24 hr 18 Center tablet hydrOXYchlo 2023-0 Yes QD Take by [facility] roQUINE 4-03 mouth [facility] (PLAQUENIL) 16:09: daily For M edical 200 mg 18 90 days . Center tablet montelukast 0 Yes 10mg QD Take [address] [facility] (SINGULAIR) 4-03 by mouth [facility] 10 mg 16:09: nightly. Medical tablet 18 Center aspirin 81 2022-0 Yes 81mg QD Take [address] [facility] MG chewable -03 by mouth [facility] tablet 16:09: daily. Medical 18 Center hydrALAZINE 0 Yes 25mg Take [address] [facility] (APRESOLINE -03 by mouth [facility] ) 25 MG 16:09: every 8 Medical tablet 18 (eight) Center hours. HYDROcodone 0 Yes 1{tbl} Take [address] [facility] [address] [facility] -acetaminop -03 tablet by [facility] vaz (NORCO 16:09: mouth Medica l 10-325) 18 every 4 Center 10-325 mg (four) per tablet hours as needed for Pain. lifitegrast Yes 1[drp] Q.5D Apply [address] [facility] (Xiidra) 5 -03 drop to [facility] % Dpet 16:09: eye(s) 2 Medical 18 (two) Center times daily. carboxymeth Yes 1[drp] Q.[id number] Apply [address] [facility] ylcellulose -03 [id number] drop to [facility] sodium 16:09: 3D eye(s) 3 Medical (REFRESH 18 (three) Center OPHT) times daily. acetaminoph 2023- No 650mg Take [address] [facility] [address] [facility] en -06 23-28 tablets [facility] (TYLENOL) 00:00: 23:59 (650 mg Medi nuria 325 MG 00 :00 total) by Center tablet mouth every 4 (four) hours as needed for up to 360 days. acetaminoph 2023- No 650mg Take [address] [facility] [address] [facility] en -06 23-28 tablets [facility] (TYLENOL) 00:00: 23:59 (650 mg Medi nuria 325 MG 00 :00 total) by Center tablet mouth every 4 (four) hours as needed for up to 360 days. acetaminoph 2023- No 650mg Take [address] [facility] [address] [facility] en -06 23-28 tablets [facility] (TYLENOL) 00:00: 23:59 (650 mg Medi nuria 325 MG 00 :00 total) by Center tablet mouth every 4 (four) hours as needed for up to 360 days. acetaminoph 2023-0 2024- No 650mg Take [address] [facility] [address] [facility] en 4-06 23-28 tablets [facility] (TYLENOL) 00:00: 23:59 (650 mg Medi nuria 325 MG 00 :00 total) by Center tablet mouth every 4 (four) hours as needed for up to 360 days. acetaminoph 2022-0 2024- No 650mg Take [address] [facility] [address] [facility] en 4-06 23-28 tablets [facility] (TYLENOL) 00:00: 23:59 (650 mg Medi nuria 325 MG 00 :00 total) by Center tablet mouth every 4 (four) hours as needed for up to 360 days. acetaminoph 2022-0 4- No 650mg Take [address] [facility] [address] [facility] en 4-06 23-28 tablets [facility] (TYLENOL) 00:00: 23:59 (650 mg Medi nuria 325 MG 00 :00 total) by Center tablet mouth every 4 (four) hours as needed for up to 360 days. polyethylen 3-0 2023- No 17g Q.5D Take [address] [facility] e glycol 4-03 04-06 by mouth [facility] (GLYCOLAX) 00:00: 23:59 in the Medi nuria 17 gram 00 :00 morning Center packet and 17 g before bedtime. Do all this for 3 days. polyethylen 3-0 2023- No 17g Q.5D Take [address] [facility] e glycol 4-03 04-06 by mouth [facility] (GLYCOLAX) 00:00: 23:59 in the Medi nuria 17 gram 00 :00 morning Center packet and 17 g before bedtime. Do all this for 3 days. polyethylen 3-0 2023- No 17g Q.5D Take [address] [facility] e glycol 4-03 04-06 by mouth [facility] (GLYCOLAX) 00:00: 23:59 in the Medi nuria 17 gram 00 :00 morning Center packet and 17 g before bedtime. Do all this for 3 days. polyethylen 2023-0 2023- No 17g Q.5D Take [address] [facility] e glycol 4-03 04-06 by mouth [facility] (GLYCOLAX) 00:00: 23:59 in the Medi nuria 17 gram 00 :00 morning Center packet and 17 g before bedtime. Do all this for 3 days. polyethylen 2022- No 17g Q.5D Take [address] [facility] e glycol 07-24-06 by mouth [facility] (GLYCOLAX) 00:00: 23:59 in the Medi nuria 17 gram 00 :00 morning Center packet and 17 g before bedtime. Do all this for 3 days. polyethylen 2022- No 17g Q.5D Take [address] [facility] e glycol 07-24-06 by mouth [facility] (GLYCOLAX) 00:00: 23:59 in the Medi nuria 17 gram 00 :00 morning Center packet and 17 g before bedtime. Do all this for 3 days. naloxone 2022- No .1mg Inject [facility] (NARCAN) 07-24 04-03 0.25 mLs [facility] 0.4 mg/mL 00:00: 00:00 (0.1 mg Medi nuria injection 00 :00 total) Center intravenou sly as needed (respirato ry rate less than 10 /min or patient unarousabl e with verbal or pain stimulus.) . naloxone 2022- No .1mg Inject [facility] (NARCAN) 07-24 04-03 0.25 [facility]s [facility] 0.4 mg/mL 00:00: 00:00 (0.1 mg Medi nuria injection 00 :00 total) Center intravenou sly as needed (respirato ry rate less than 10 /min or patient unarousabl e with verbal or pain stimulus.) . naloxone 2022-2022- No .1mg Inject [facility] (NARCAN) 07-24 04-03 0.25 [facility]s [facility] 0.4 mg/mL 00:00: 00:00 (0.1 mg Medi nuria injection 00 :00 total) Center intravenou sly as needed (respirato ry rate less than 10 /min or patient unarousabl e with verbal or pain stimulus.) . naloxone 2022-0 2022- No .1mg Inject [facility] (NARCAN) 07-24 04-03 0.25 [facility]s [facility] 0.4 mg/mL 00:00: 00:00 (0.1 mg Medi nuria injection 00 :00 total) Center intravenou sly as needed (respirato ry rate less than 10 /min or patient unarousabl e with verbal or pain stimulus.) . naloxone 2022-0 2022- No .1mg Inject [facility] (NARCAN) 07-24 0.25 [facility]s [facility] 0.4 mg/mL 00:00: 00:00 (0.1 mg Medi nuria injection 00 :00 total) Center intravenou sly as needed (respirato ry rate less than 10 /min or patient unarousabl e with verbal or pain stimulus.) . naloxone 2022-0 2022- No .1mg Inject [facility] (NARCAN) 07-24 0.25 [facility]s [facility] 0.4 mg/mL 00:00: 00:00 (0.1 mg Medi nuria injection 00 :00 total) Center intravenou sly as needed (respirato ry rate less than 10 /min or patient unarousabl e with verbal or pain stimulus.) . allopurinoL 0 Yes 100mg QD Take [address] [facility] (ZYLOPRIM) 3-24 mg by [facility] 100 MG 02:32: mouth Medical tablet 05 daily. [place] donepeziL 0 Yes 10mg QD Take [address] [facility] [address] [facility] (ARICEPT) 3-24 by mouth [facility] 10 MG 02:32: nightly. Medical tablet 05 [place] isosorbide 0 Yes 60mg QD Take [address] [facility] mononitrate 3-24 by mouth [facility] (IMDUR) 60 02:32: daily ER . M edical MG 24 hr 05 [place] tablet hydrOXYchlo 0 Yes QD Take by [facility] roQUINE 3-24 mouth [facility] (PLAQUENIL) 02:32: daily For M edical 200 mg 05 90 days . [place] tablet montelukast 0 Yes 10mg QD Take [address] [facility] (SINGULAIR) 3-24 by mouth [facility] 10 mg 02:32: nightly. Medical tablet 05 [place] aspirin 81 2022-0 Yes 81mg QD Take [address] MG chewable 3-24 by mouth [facility] tablet 02:32: daily. Medical [address] [place] [address] hydrALAZINE 2022-0 Yes 25mg Take [address] [facility] (APRESOLINE 3-24 by mouth [facility] ) 25 MG 02:32: every 8 Medical tablet 05 (eight) Center hours. HYDROcodone 2022-0 Yes 1{tbl} Take [address] [facility] [address] [facility] -acetaminop 3-24 tablet by [facility] v[facility] (NORCO 02:32: mouth Medica l 10-325) 05 every 4 Center 10-325 mg (four) per tablet hours as needed for Pain. lifitegrast 2022-0 Yes 1[drp] Q.5D Apply [address] (Xiidra) 5 3-24 drop to [facility] % Dpet 02:32: eye(s) 2 Medical 05 (two) Center times daily. carboxymeth 2022-0 Yes 1[drp] Q.[id number] Apply [address] [facility] ylcellulose 3-24 [id number] drop to [facility] sodium 02:32: 3D eye(s) 3 Medical (REFRESH 05 (three) Center OPHT) times daily. allopurinoL 2022-0 Yes 100mg QD Take [address] (ZYLOPRIM) 3-24 mg by [facility] 100 MG 02:32: mouth Medical tablet 05 daily. [place] donepeziL 0 Yes 10mg QD Take [address] [facility] [address] [facility] (ARICEPT) 3-24 by mouth [facility] 10 MG 02:32: nightly. Medical tablet 05 [place] isosorbide 0 Yes 60mg QD Take [address] mononitrate 3-24 by mouth [facility] (IMDUR) 60 02:32: daily ER . M edical MG 24 hr 05 Center tablet hydrOXYchlo 2022-0 Yes QD Take by [facility] roQUINE 3-24 mouth [facility] (PLAQUENIL) 02:32: daily For M edical 200 mg 05 90 days . Center tablet montelukast 2022-0 Yes 10mg QD Take [address] [facility] (SINGULAIR) 3-24 by mouth [facility] 10 mg 02:32: nightly. Medical tablet 05 [place] aspirin 81 2022-0 Yes 81mg QD Take [address] MG chewable 3-24 by mouth [facility] tablet 02:32: daily. Medical 05 Center hydrALAZINE 2022-0 Yes 25mg Take [address] [facility] (APRESOLINE 3-24 by mouth [facility] ) 25 MG 02:32: every 8 Medical tablet 05 (eight) Center hours. HYDROcodone 2022-0 Yes 1{tbl} Take [address] [facility] [address] [facility] -acetaminop 3-24 tablet by [facility] (NORCO 02:32: mouth Medica l 10-325) 05 every 4 Center 10-325 mg (four) per tablet hours as needed for Pain. lifitegrast 2022-0 Yes 1[drp] Q.5D Apply [address] (Xiidra) 5 3-24 drop to [facility] % Dpet 02:32: eye(s) 2 Medical 05 (two) Center times daily. carboxymeth 2022-0 Yes 1[drp] Q.[id number] Apply [address] [facility] ylcellulose 3-24 [id number] drop to [facility] sodium 02:32: 3D eye(s) 3 Medical (REFRESH 05 (three) Center OPHT) times daily. allopurinoL 2022-0 Yes 100mg QD Take [address] (ZYLOPRIM) 3-24 mg by [facility] 100 MG 02:32: mouth Medical tablet 05 daily. Center donepeziL 2022-0 Yes 10mg QD Take [address] [facility] [address] [facility] (ARICEPT) 3-24 by mouth [facility] 10 MG 02:32: nightly. Medical tablet 05 [place] isosorbide 2022-0 Yes 60mg QD Take [address] mononitrate 3-24 by mouth [facility] (IMDUR) 60 02:32: daily ER . M edical MG 24 hr 05 Center tablet hydrOXYchlo 2022-0 Yes QD Take by [facility] roQUINE 3-24 [facility] (PLAQUENIL) 02:32: daily For M edical 200 mg 05 90 days . Center tablet montelukast 2022-0 Yes 10mg QD Take [address] [facility] (SINGULAIR) 3-24 by mouth [facility] 10 mg 02:32: nightly. Medical tablet 05 Center aspirin 81 2022-0 Yes 81mg QD Take [address] [facility] MG chewable 3-24 [facility] tablet 02:32: daily. Medical 05 Center hydrALAZINE 2022-0 Yes 25mg Take [address] [facility] (APRESOLINE 3-24 by [facility] ) 25 MG 02:32: every 8 Medical tablet 05 (eight) Center hours. HYDROcodone 2022-0 Yes 1{tbl} Take [address] -acetaminop 3-24 tablet by [facility] (NORCO 02:32: mouth [facility]ica [facility] 10-325) 05 every 4 Center 10-325 mg (four) per tablet hours as needed for Pain. lifitegrast 2022-0 Yes 1[drp] Q.5D Apply [address] [facility] (Xiidra) 5 3-24 [facility] to [facility] % Dpet 02:32: eye(s) 2 Medical 05 (two) Center times daily. carboxymeth 3-0 Yes 1[drp] [id number] Apply [address] [facility] ylcellulose 3-24 [id number] drop to [facility] sodium 02:32: 3D eye(s) 3 Medical (REFRESH 05 (three) Center OPHT) times daily. allopurinoL 2022-0 Yes 100mg QD Take [address] [facility] (ZYLOPRIM) 3-24 [facility] MG 02:32: mouth Medical tablet 05 daily. Center donepeziL 2022-0 Yes 10mg QD Take [address] [facility] (ARICEPT) 3-24 [facility] 10 MG 02:32: nightly. Medical tablet 05 [place] isosorbide 2022-0 Yes 60mg QD Take [address] [facility] mononitrate 3-24 by [facility] (IMDUR) 60 02:32: daily ER . M edical MG 24 hr 05 Center tablet hydrOXYchlo 2022-0 Yes QD Take by [facility] roQUINE 3-24 [facility] (PLAQUENIL) 02:32: daily For M edical 200 mg 05 90 days . Center tablet montelukast 2022-0 Yes 10mg QD Take [address] [facility] (SINGULAIR) 3-24 by [facility] 10 mg 02:32: nightly. Medical tablet 05 Center aspirin 81 2022-0 Yes 81mg QD Take [address] [facility] MG chewable 3-24 by mouth [facility] tablet 02:32: daily. Medical 05 Center hydrALAZINE 2022-0 Yes 25mg Take [address] [facility] (APRESOLINE 3-24 by mouth [facility] ) 25 MG 02:32: every 8 Medical tablet 05 (eight) Center hours. HYDROcodone 2022-0 Yes 1{tbl} Take [address] [facility] [address] [facility] -acetaminop 3-24 tablet by [facility] (NORCO 02:32: mouth Medica l 10-325) 05 every 4 Center 10-325 mg (four) per tablet hours as needed for Pain. lifitegrast 2022-0 Yes 1[drp] Q.5D Apply [address] [facility] (Xiidra) 5 3-24 drop to [facility] % Dpet 02:32: eye(s) 2 Medical 05 (two) Center times daily. carboxymeth 2022-0 Yes 1[drp] Q.[id number] Apply [address] [facility] ylcellulose 3-24 [id number] drop to [facility] sodium 02:32: 3D eye(s) 3 Medical (REFRESH 05 (three) Center OPHT) times daily. allopurinoL 2022-0 Yes 100mg QD Take [address] [facility] (ZYLOPRIM) 3-24 mg [facility] 100 MG 02:32: mouth Medical tablet 05 daily. Center donepeziL 2022-0 Yes 10mg QD Take [address] [facility] [address] [facility] (ARICEPT) 3-24 [facility] 10 MG 02:32: nightly. Medical tablet 05 [place] isosorbide 2022-0 Yes 60mg QD Take [address] [facility] [address] [facility] mononitrate 3-24 by [facility] (IMDUR) 60 02:32: daily ER . M edical MG 24 hr 05 Center tablet hydrOXYchlo 2022-0 Yes QD Take by [facility] roQUINE 3-24 [facility] (PLAQUENIL) 02:32: daily For M edical 200 mg 05 90 days . Center tablet montelukast 2022-0 Yes 10mg QD Take [address] [facility] (SINGULAIR) 3-24 by [facility] 10 mg 02:32: nightly. Medical tablet 05 [place] aspirin 81 2022-0 Yes 81mg QD Take [address] [facility] MG chewable 3-24 by [facility] tablet 02:32: daily. Medical 05 [place] hydrALAZINE 2022-0 Yes 25mg Take [address] [facility] (APRESOLINE 3-24 by [facility] ) 25 MG 02:32: every 8 Medical tablet 05 (eight) Center hours. HYDROcodone 2022-0 Yes 1{tbl} Take [address] [facility] [address] [facility] -acetaminop 3-24 tablet by [facility] (NORCO 02:32: mouth Medica l 10-325) 05 every 4 Center 10-325 mg (four) per tablet hours as needed for Pain. lifitegrast 2022-0 Yes 1[drp] Q.5D Apply [address] [facility] (Xiidra) 5 3-24 [facility] to [facility] % Dpet 02:32: eye(s) 2 Medical 05 (two) Center times daily. carboxymeth 2023-0 Yes 1[drp] Q.[id number] Apply [address] [facility] ylcellulose 3-24 [id number] drop to [facility] sodium 02:32: 3D eye(s) 3 Medical (REFRESH 05 (three) Center OPHT) times daily. allopurinoL 2022-0 Yes 100mg QD Take [address] [facility] (ZYLOPRIM) 3-24 mg [facility] 100 MG 02:32: mouth Medical tablet 05 daily. Center donepeziL 2022-0 Yes 10mg QD Take [address] [facility] [address] [facility] (ARICEPT) 3-24 by [facility] 10 MG 02:32: nightly. Medical tablet 05 [place] isosorbide 2022-0 Yes 60mg QD Take [address] [facility] [address] [facility] mononitrate 3-24 by [facility] (IMDUR) 60 02:32: daily ER . M edical MG 24 hr 05 [place] tablet hydrOXYchlo 2022-0 Yes QD Take by [facility] roQUINE 3-24 [facility] (PLAQUENIL) 02:32: daily For M edical 200 mg 05 90 days . Center tablet montelukast 2022-0 Yes 10mg QD Take [address] [facility] (SINGULAIR) 3-24 by mouth [facility] 10 mg 02:32: nightly. Medical tablet 05 [place] aspirin 81 2022-0 Yes 81mg QD Take [address] [facility] MG chewable 3-24 by mouth [facility] tablet 02:32: daily. Medical 05 [place] hydrALAZINE 2022-0 Yes 25mg Take [address] [facility] (APRESOLINE 3-24 by [facility] ) 25 MG 02:32: every 8 Medical tablet 05 (eight) Center hours. HYDROcodone 2022-0 Yes 1{tbl} Take [address] [facility] [address] [facility] -acetaminop 3-24 tablet by [facility] (NORCO 02:32: mouth Medica l 10-325) 05 every 4 Center 10-325 mg (four) per tablet hours as needed for Pain. lifitegrast 2023-0 Yes 1[drp] Q.5D Apply [address] [facility] (Xiidra) 5 3-24 drop to [facility] % Dpet 02:32: eye(s) 2 Medical 05 (two) Center times daily. carboxymeth 2023-0 Yes 1[drp] Q.[id number] Apply [address] [facility] ylcellulose 3-24 [id number] drop to [facility] sodium 02:32: 3D eye(s) 3 Medical (REFRESH 05 (three) Center OPHT) times daily. zolpidem 2023-0 Yes 10mg Take [address] [facility] (AMBIEN) 10 3-23 tablet (10 [facility] mg tablet 00:00: mg total) Med ical 00 by mouth Center every night as needed. Max Daily Amount: 10 mg zolpidem 2023-0 Yes 10mg Take [address] [facility] (AMBIEN) 10 3-23 tablet (10 [facility] mg tablet 00:00: mg total) Med ical 00 by mouth Center every night as needed. Max Daily Amount: 10 mg zolpidem 2023-0 Yes 10mg Take [address] [facility] (AMBIEN) 10 3-23 tablet (10 [facility] mg tablet 00:00: mg total) Med ical 00 by mouth Center every night as needed. Max Daily Amount: 10 mg zolpidem 2023-0 Yes 10mg Take [address] [facility] (AMBIEN) 10 3-23 tablet (10 [facility] mg tablet 00:00: mg total) Med ical 00 by mouth Center every night as needed. zolpidem 2023-0 Yes 10mg Take [address] [facility] (AMBIEN) 10 3-23 tablet (10 [facility] mg tablet 00:00: mg total) Med ical 00 by mouth Center every night as needed. zolpidem 2023-0 Yes 10mg Take [address] [facility] (AMBIEN) 10 3-23 tablet (10 [facility] mg tablet 00:00: mg total) Med ical 00 by mouth Center every night as needed. Max Daily Amount: 10 mg zolpidem 2023-0 Yes 10mg Take [address] [facility] (AMBIEN) 10 3-23 tablet (10 [facility] mg tablet 00:00: mg total) Med ical 00 by mouth Center every night as needed. Max Daily Amount: 10 mg zolpidem 2023-0 Yes 10mg Take [address] [facility] (AMBIEN) 10 3-23 tablet (10 [facility] mg tablet 00:00: mg total) Med ical 00 by mouth Center every night as needed. Max Daily Amount: 10 mg zolpidem 2022-0 Yes 10mg Take [address] [facility] (AMBIEN) 10 3-23 tablet (10 [facility] mg tablet 00:00: mg total) Med ical 00 by mouth Center every night as needed. Max Daily Amount: 10 mg zolpidem 2022-0 2022- No 10mg Take [address] [facility] (AMBIEN) 10 3-23 05-08 tablet (10 [facility] mg tablet 00:00: 00:00 mg total) Me dical 00 :00 by mouth Center every night as needed. zolpidem 2022-0 2022- No 10mg Take [address] [facility] (AMBIEN) 10 3-23 05-08 tablet (10 [facility] mg tablet 00:00: 00:00 mg total) Me dical 00 :00 by mouth Center every night as needed. zolpidem 2022-0 2022- No 10mg Take [address] [facility] (AMBIEN) 10 -23 05-08 tablet (10 [facility] mg tablet 00:00: 00:00 mg total) Me dical 00 :00 by mouth Center every night as needed. allopurinoL 0 Yes 100mg QD Take [address] [facility] (ZYLOPRIM) 3-06 mg [facility] 100 MG 21:14: mouth Medical tablet 43 daily. Center donepeziL 0 Yes 10mg QD Take [address] [facility] [address] [facility] (ARICEPT) 3-06 by [facility] 10 MG 21:14: nightly. Medical tablet 43 Center isosorbide 2022-0 Yes 60mg QD Take [address] [facility] [address] [facility] mononitrate 3-06 by [facility] (IMDUR) 60 21:14: daily ER . M edical MG 24 hr 43 Center tablet hydrOXYchlo 2022-0 Yes QD Take by [facility] roQUINE 3-06 [facility] (PLAQUENIL) 21:14: daily For M edical 200 mg 43 90 days . Center tablet montelukast 2022-0 Yes 10mg QD Take [address] [facility] (SINGULAIR) 3-06 by [facility] 10 mg 21:14: nightly. Medical tablet 43 Center aspirin 81 Yes 81mg QD Take [address] [facility] MG chewable 06 by mouth [facility] tablet 21:14: daily. Medical 43 Center hydrALAZINE Yes 25mg Take [address] [facility] (APRESOLINE 06 by mouth [facility] ) 25 MG 21:14: every 8 Medical tablet 43 (eight) Center hours. HYDROcodone Yes 1{tbl} Take [address] [facility] [address] [facility] -acetaminop 06 tablet by [facility] (NORCO 21:14: mouth Medica l 10-325) 43 every 4 Center 10-325 mg (four) per tablet hours as needed for Pain. lifitegrast Yes 1[drp] Q.5D Apply [address] [facility] (Xiidra) 5 3-06 drop to [facility] % Dpet 21:14: eye(s) 2 Medical 43 (two) Center times daily. carboxymeth Yes 1[drp] Q.[id number] Apply [address] [facility] ylcellulose 06 [id number] drop to [facility] sodium 21:14: 3D eye(s) 3 Medical (REFRESH 43 (three) Center OPHT) times daily. bumetanide 2023- No 1mg Take [address] [facility] (BUMEX) 1 3- 03-05 tablet (1 [facility] MG tablet 00:00: 23:59 mg total) Me dical 00 :00 by mouth 2 Center (two) times daily. bumetanide 2023- No 1mg Take [address] [facility] (BUMEX) 1 3- 03-05 tablet (1 [facility] MG tablet 00:00: 23:59 mg total) Me dical 00 :00 by mouth 2 Center (two) times daily. bumetanide 2023- No 1mg Take [address] [facility] (BUMEX) 1 3-06 03-05 tablet (1 [facility] MG tablet 00:00: 23:59 mg total) Me dical 00 :00 by mouth 2 Center (two) times daily. bumetanide 2023- No 1mg Take [address] [facility] (BUMEX) 1 3-06 03-05 tablet (1 [facility] MG tablet 00:00: 23:59 mg total) Me dical 00 :00 by mouth 2 Center (two) times daily. bumetanide 2022-0 4- No 1mg Take [address] [facility] (BUMEX) 1 3-06 03-05 tablet (1 [facility] MG tablet 00:00: 23:59 mg total) Me dical 00 :00 by mouth 2 Center (two) times daily. bumetanide 2022-0 4- No 1mg Take [address] [facility] (BUMEX) 1 3- 03-05 tablet (1 [facility] MG tablet 00:00: 23:59 mg total) Me dical 00 :00 by mouth 2 Center (two) times daily. bumetanide 2022-0 2023- No 1mg Take [address] [facility] (BUMEX) 1 3- 03-05 tablet (1 [facility] MG tablet 00:00: 23:59 mg total) Me dical 00 :00 by mouth 2 Center (two) times daily. bumetanide 2022-0 2023- No 1mg Take [address] [facility] (BUMEX) 1 - 03-05 tablet (1 [facility] MG tablet 00:00: 23:59 mg total) Me dical 00 :00 by mouth 2 Center (two) times daily. bumetanide 2022-0 2023- No 1mg Take [address] [facility] (BUMEX) 1 3- 03-05 tablet (1 [facility] MG tablet 00:00: 23:59 mg total) Me dical 00 :00 by mouth 2 Center (two) times daily. bumetanide 2022-0 2023- No 1mg Take [address] [facility] (BUMEX) 1 - 03-05 tablet (1 [facility] MG tablet 00:00: 23:59 mg total) Me dical 00 :00 by mouth 2 Center (two) times daily. bumetanide 2022-0 3- No 1mg Take [address] [facility] (BUMEX) 1 3-06 05-08 tablet (1 [facility] MG tablet 00:00: 00:00 mg total) Me dical 00 :00 by mouth 2 Center (two) times daily. bumetanide 2022-0 3- No 1mg Take [address] [facility] (BUMEX) 1 3- 05-08 tablet (1 [facility] MG tablet 00:00: 00:00 mg total) Me dical 00 :00 by mouth 2 Center (two) times daily. bumetanide 0 2022- No 1mg Take [address] [facility] (BUMEX) 1 06-26-08 tablet (1 [facility] MG tablet 00:00: 00:00 mg total) Me dical 00 :00 by mouth 2 Center (two) times daily. petrolatum- 2022-0 Yes 1{appli QD Apply [address] [facility] mineral oil 3-04 cation} [facility] 00:[facility]: n Medical topical 00 topically Center ointment daily. petrolatum- 2022-0 Yes 1{appli QD Apply [address] [facility] mineral oil 3-04 cation} applicatio [facility] 00:[facility]: n Medical topical 00 topically Center ointment daily. petrolatum- 2022-0 Yes 1{appli QD Apply [address] [facility] mineral oil 3-04 cation} applic[facility] 00:00: n Medical topical 00 topically Center ointment daily. petrolatum- 2022-0 Yes 1{appli QD Apply [address] [facility] mineral oil 3-04 cation} applic[facility] 00:00: n Medical topical 00 topically Center ointment daily. petrolatum- 2022-0 Yes 1{appli QD Apply [address] [facility] mineral oil 3-04 cation} applic[facility] 00:00: n Medical topical 00 topically Center ointment daily. petrolatum- 2022-0 Yes 1{appli QD Apply [address] [facility] mineral oil 3-04 cation} applic[facility] 00:[facility]: n Medical topical 00 topically Center ointment daily. petrolatum- 2022-0 Yes 1{appli QD Apply [address] [facility] mineral oil 3-04 cation} applicatio [facility] 00:00: n Medical topical 00 topically Center ointment daily. petrolatum- 2022-0 Yes 1{appli QD Apply [address] [facility] mineral oil 3-04 cation} applicatio [facility] 00:00: n Medical topical 00 topically Center ointment daily. petrolatum- 2022-0 Yes 1{appli QD Apply [address] [facility] mineral oil 3-04 cation} applicatio [facility] 00:00: n Medical topical 00 topically Center ointment daily. petrolatum- 2022-0 Yes 1{appli QD Apply [address] [facility] mineral oil 3-04 cation} applic[facility] 00:00: n Medical topical 00 topically Center ointment daily. petrolatum- 2022-0 Yes 1{appli QD Apply [address] [facility] mineral oil 3-04 cation} applic[facility] 00:00: n Medical topical 00 topically Center ointment daily. petrolatum- 2022-0 Yes 1{appli QD Apply [address] [facility] mineral oil 3-04 cation} applicatio [facility] 00:00: n Medical topical 00 topically Center ointment daily. petrolatum- 2022-0 Yes 1{appli QD Apply [address] [facility] mineral oil 3-04 cation} applicatio [facility] 00:[facility]: n Medical topical 00 topically Center ointment daily. metoprolol 0 2022- No 25mg QD Take [address] [facility] succinate 3-03 03-03 by [facility] (TOPROL-XL) 14:00: 00:00 daily ER . Medical 25 MG 24 hr 02 :00 Center tablet metoprolol 2022-0 2022- No 25mg QD Take [address] [facility] succinate 3-03 03-03 by [facility] (TOPROL-XL) 14:00: 00:00 daily ER . Medical 25 MG 24 hr 02 :00 Center tablet metoprolol 2022-0 2022- No 25mg QD Take [address] [facility] succinate 3-03 03-03 by [facility] (TOPROL-XL) 14:00: 00:00 daily ER . Medical 25 MG 24 hr 02 :00 Center tablet metoprolol 2022-0 3- No 25mg QD Take [address] [facility] succinate 3-03 03-03 by [facility] (TOPROL-XL) 14:00: 00:00 daily ER . Medical 25 MG 24 hr 02 :00 Center tablet metoprolol 2022-0 3- No 25mg QD Take [address] [facility] succinate 3-03 03-03 by [facility] (TOPROL-XL) 14:00: 00:00 daily ER . Medical 25 MG 24 hr 02 :00 Center tablet metoprolol 2023-0 2023- No 25mg QD Take [address] [facility] succinate 3- 03-03 by [facility] (TOPROL-XL) 14:00: 00:00 daily ER . Medical 25 MG 24 hr 02 :00 Center tablet metoprolol 2023-0 2023- No 25mg QD Take [address] [facility] succinate 3- 03-03 by [facility] (TOPROL-XL) 14:00: 00:00 daily ER . Medical 25 MG 24 hr 02 :00 Center tablet metoprolol 3-0 2023- No 25mg QD Take [address] [facility] succinate 3- 03-03 by [facility] (TOPROL-XL) 14:00: 00:00 daily ER . Medical 25 MG 24 hr 02 :00 Center tablet metoprolol 2023-0 2023- No 25mg QD Take [address] [facility] succinate 3-06 23-03 by [facility] (TOPROL-XL) 14:00: 00:00 daily ER . Medical 25 MG 24 hr 02 :00 Center tablet metoprolol 3-0 2023- No 25mg QD Take [address] [facility] succinate 3-06 23-03 by [facility] (TOPROL-XL) 14:00: 00:00 daily ER . Medical 25 MG 24 hr 02 :00 Center tablet metoprolol 3-0 2023- No 25mg QD Take [address] [facility] succinate 3- 03-03 by [facility] (TOPROL-XL) 14:00: 00:00 daily ER . Medical 25 MG 24 hr 02 :00 Center tablet metoprolol 2023-0 2023- No 25mg QD Take [address] [facility] succinate 3- 03-03 by [facility] (TOPROL-XL) 14:00: 00:00 daily ER . Medical 25 MG 24 hr 02 :00 Center tablet metoprolol 2023-0 2023- No 25mg QD Take [address] [facility] succinate 3- 03-03 by [facility] (TOPROL-XL) 14:00: 00:00 daily ER . Medical 25 MG 24 hr 02 :00 Center tablet gabapentin 2023-0 2023- No 300mg Q.25D Take [address] [facility] (NEURONTIN) 3-03 03-01 mg [facility] 300 MG 13:59: 00:00 mouth 4 Medical capsule 58 :00 (four) Center times daily. gabapentin 3-0 2023- No 300mg Q.25D Take [address] [facility] (NEURONTIN) 3-03 03-01 mg [facility] 300 MG 13:59: 00:00 mouth 4 Medical capsule 58 :00 (four) Center times daily. gabapentin 3-0 2023- No 300mg Q.25D Take [address] [facility] (NEURONTIN) 3-03 03-01 mg [facility] 300 MG 13:59: 00:00 mouth 4 Medical capsule 58 :00 (four) Center times daily. gabapentin 3-0 2023- No 300mg Q.25D Take [address] [facility] (NEURONTIN) 3-03 03-01 mg [facility] 300 MG 13:59: 00:00 mouth 4 Medical capsule 58 :00 (four) Center times daily. gabapentin 2022-0 2023- No 300mg Q.25D Take [address] [facility] (NEURONTIN) 3-03 03-01 mg [facility] 300 MG 13:59: 00:00 mouth 4 Medical capsule 58 :00 (four) Center times daily. gabapentin 2022-0 2023- No 300mg Q.25D Take [address] [facility] (NEURONTIN) 3-03 03-01 mg [facility] 300 MG 13:59: 00:00 mouth 4 Medical capsule 58 :00 (four) Center times daily. gabapentin 3-0 2023- No 300mg Q.25D Take [address] [facility] (NEURONTIN) 3-03 03-01 mg [facility] 300 MG 13:59: 00:00 mouth 4 Medical capsule 58 :00 (four) Center times daily. gabapentin 3-0 2023- No 300mg Q.25D Take [address] [facility] (NEURONTIN) 3-03 03-01 mg [facility] 300 MG 13:59: 00:00 mouth 4 Medical capsule 58 :00 (four) Center times daily. gabapentin 2023-0 2023- No 300mg Q.25D Take [address] [facility] (NEURONTIN) 3-03 03-01 mg [facility] 300 MG 13:59: 00:00 mouth 4 Medical capsule 58 :00 (four) Center times daily. gabapentin 2023-0 2023- No 300mg Q.25D Take [address] [facility] (NEURONTIN) 3-03 03-01 mg [facility] 300 MG 13:59: 00:00 mouth 4 Medical capsule 58 :00 (four) Center times daily. gabapentin 2023-0 2023- No 300mg Q.25D Take [address] [facility] (NEURONTIN) 3-03 03-01 [facility] 300 MG 13:59: 00:00 mouth 4 Medical capsule 58 :00 (four) Center times daily. gabapentin 2023-0 2023- No 300mg Q.25D Take [address] [facility] (NEURONTIN) 3-03 03-01 mg [facility] 300 MG 13:59: 00:00 mouth 4 Medical capsule 58 :00 (four) Center times daily. gabapentin 2023-0 2023- No 300mg Q.25D Take [address] [facility] (NEURONTIN) 3-03 03-01 mg [facility] 300 MG 13:59: 00:00 mouth 4 Medical capsule 58 :00 (four) Center times daily. gabapentin 2023-0 Yes 300mg Q.[id number] Take [address] [facility] (NEURONTIN) 3-03 [id number] [facility] 300 MG 00:00: 3D (300 mg Medical capsule 00 total) by Center mouth 3 (three) times daily. apixaban 2023-0 Yes 5mg Q.5D Take [address] [facility] (ELIQUIS) 5 3-03 tablet (5 [facility] mg Tab 00:00: mg total) Medica l tablet 00 by mouth 2 Center (two) times daily. gabapentin 2023-0 Yes 300mg Q.[id number] Take [address] [facility] (NEURONTIN) 3-03 [id number] [facility] 300 MG 00:00: 3D (300 mg Medical capsule 00 total) by Center mouth 3 (three) times daily. apixaban 2023-0 Yes 5mg Q.5D Take [address] [facility] (ELIQUIS) 5 3-03 tablet (5 [facility] mg Tab 00:00: mg total) Medica l tablet 00 by mouth 2 Center (two) times daily. gabapentin 2023-0 Yes 300mg Q.[id number] Take [address] [facility] (NEURONTIN) 3-03 [id number] [facility] 300 MG 00:00: 3D (300 mg Medical capsule 00 total) by Center mouth 3 (three) times daily. apixaban 2023-0 Yes 5mg Q.5D Take [address] [facility] (ELIQUIS) 5 3-03 tablet (5 [facility] mg Tab 00:00: mg total) Medica l tablet 00 by mouth 2 Center (two) times daily. gabapentin 2023-0 Yes 300mg Q.[id number] Take [address] [facility] (NEURONTIN) 3-03 [id number] [facility] 300 MG 00:00: 3D (300 mg Medical capsule 00 total) by Center mouth 3 (three) times daily. apixaban 2023-0 Yes 5mg Q.5D Take [address] [facility] (ELIQUIS) 5 3-03 tablet (5 [facility] mg Tab 00:00: mg total) Medica l tablet 00 by mouth 2 Center (two) times daily. gabapentin 2023-0 Yes 300mg Q.[id number] Take [address] [facility] (NEURONTIN) 3-03 [id number] [facility] 300 MG 00:00: 3D (300 mg Medical capsule 00 total) by Center mouth 3 (three) times daily. apixaban 2023-0 Yes 5mg Q.5D Take [address] [facility] (ELIQUIS) 5 3-03 tablet (5 [facility] mg Tab 00:00: mg total) Medica l tablet 00 by mouth 2 Center (two) times daily. apixaban 2023-0 Yes 5mg Q.5D Take [address] [facility] (ELIQUIS) 5 3-03 tablet (5 [facility] mg Tab 00:00: mg total) Medica l tablet 00 by mouth 2 Center (two) times daily. apixaban 2023-0 Yes 5mg Q.5D Take [address] [facility] (ELIQUIS) 5 3-03 tablet (5 [facility] mg Tab 00:00: mg total) Medica l tablet 00 by mouth 2 Center (two) times daily. apixaban 2023-0 Yes 5mg Q.5D Take [address] [facility] (ELIQUIS) 5 3-03 tablet (5 [facility] mg Tab 00:00: mg total) Medica l tablet 00 by mouth 2 Center (two) times daily. gabapentin 2023-0 Yes 300mg Q.[id number] Take [address] [facility] (NEURONTIN) 3-03 [id number] [facility] 300 MG 00:00: 3D (300 mg Medical capsule 00 total) by Center mouth 3 (three) times daily. apixaban 2023-0 Yes 5mg Q.5D Take [address] [facility] (ELIQUIS) 5 3-03 tablet (5 [facility] mg Tab 00:00: mg total) Medica l tablet 00 by mouth 2 Center (two) times daily. gabapentin 2023-0 Yes 300mg Q.[id number] Take [address] [facility] (NEURONTIN) 3-03 [id number] [facility] 300 MG 00:00: 3D (300 mg Medical capsule 00 total) by Center mouth 3 (three) times daily. apixaban 2023-0 Yes 5mg Q.5D Take [address] [facility] (ELIQUIS) 5 3-03 tablet (5 [facility] mg Tab 00:00: mg total) Medica l tablet 00 by mouth 2 Center (two) times daily. gabapentin 2023-0 Yes 300mg Q.[id number] Take [address] [facility] (NEURONTIN) 3-03 [id number] [facility] 300 MG 00:00: 3D (300 mg Medical capsule 00 total) by Center mouth 3 (three) times daily. apixaban 2023-0 Yes 5mg Q.5D Take [address] [facility] (ELIQUIS) 5 3-03 tablet (5 [facility] mg Tab 00:00: mg total) Medica l tablet 00 by mouth 2 Center (two) times daily. gabapentin 2023-0 Yes 300mg Q.[id number] Take [address] [facility] (NEURONTIN) 3-03 [id number] [facility] 300 MG 00:00: 3D (300 mg Medical capsule 00 total) by Center mouth 3 (three) times daily. apixaban 2023-0 Yes 5mg Q.5D Take [address] [facility] (ELIQUIS) 5 3-03 tablet (5 [facility] mg Tab 00:00: mg total) Medica l tablet 00 by mouth 2 Center (two) times daily. gabapentin 2023-0 Yes 300mg Q.[id number] Take [address] [facility] (NEURONTIN) 3-03 [id number] [facility] 300 MG 00:00: 3D (300 mg Medical capsule 00 total) by Center mouth 3 (three) times daily. apixaban 2023-0 Yes 5mg Q.5D Take [address] [facility] (ELIQUIS) 5 3-03 tablet (5 [facility] mg Tab 00:00: mg total) Medica l tablet 00 by mouth 2 Center (two) times daily. carvediloL 2022-0 2023- No 6.25mg Q.5D Take [address] [facility] [address] [facility] (COREG) 3-06 23-02 [facility] 6.25 MG 00:00: 23:59 (6.25 mg Medic al tablet 00 :00 total) by Center mouth 2 (two) times daily. carvediloL 2022-0 2023- No 6.25mg Q.5D Take [address] [facility] [address] [facility] (COREG) 3-06 23- tablet [facility] 6.25 MG 00:00: 23:59 (6.25 mg Medic al tablet 00 :00 total) by Center mouth 2 (two) times daily. carvediloL 2022-0 2023- No 6.25mg Q.5D Take [address] [facility] [address] [facility] (COREG) 3-06 23- tablet [facility] 6.25 MG 00:00: 23:59 (6.25 mg Medic al tablet 00 :00 total) by Center mouth 2 (two) times daily. carvediloL 2022-0 2023- No 6.25mg Q.5D Take [address] [facility] [address] [facility] (COREG) -06 23- tablet [facility] 6.25 MG 00:00: 23:59 (6.25 mg Medic al tablet 00 :00 total) by Center mouth 2 (two) times daily. carvediloL 2022-2023- No 6.25mg Q.5D Take [address] [facility] [address] [facility] (COREG) -06 23- tablet [facility] 6.25 MG 00:00: 23:59 (6.25 mg Medic al tablet 00 :00 total) by Center mouth 2 (two) times daily. carvediloL 2022-0 2023- No 6.25mg Q.5D Take [address] [facility] [address] [facility] (COREG) -06 23-02 [facility] 6.25 MG 00:00: 23:59 (6.25 mg Medic al tablet 00 :00 total) by Center mouth 2 (two) times daily. carvediloL 2022-0 2023- No 6.25mg Q.5D Take [address] [facility] [address] [facility] (COREG) 3-03 -02 [facility] 6.25 MG 00:00: 23:59 (6.25 mg Medic al tablet 00 :00 total) by Center mouth 2 (two) times daily. ipratropium 2023-0 2024- No 3mL Take [address] [facility] -albuteroL 3- 02-26 by [facility] ([facility]) 00:00: 23:59 nebulizati M edical 0.5 mg-3 00 :00 on every 4 Cente r mg(2.5 mg (four) base)/3 mL hours for nebulizer 360 days. solution ipratropium 2023-0 2024- No 3mL Take [address] [facility] -albuteroL 3-06 22- by [facility] ([facility]) 00:00: 23:59 nebulizati M edical 0.5 mg-3 00 :00 on every 4 Cente r mg(2.5 mg (four) base)/3 mL hours for nebulizer 360 days. solution ipratropium 2023-0 2024- No 3mL Take [address] [facility] -albuteroL -06-18 by [facility] ([facility]) 00:00: 23:59 nebulizati M edical 0.5 mg-3 00 :00 on every 4 Cente r mg(2.5 mg (four) base)/3 mL hours for nebulizer 360 days. solution ipratropium 2023-0 2024- No 3mL Take [address] [facility] -albuteroL -06-18 by [facility] ([facility]) 00:00: 23:59 nebulizati M edical 0.5 mg-3 00 :00 on every 4 Cente r mg(2.5 mg (four) base)/3 mL hours for nebulizer 360 days. solution ipratropium 2023-0 2024- No 3mL Take [address] [facility] -albuteroL -06 22- by [facility] ([facility]) 00:00: 23:59 nebulizati M edical 0.5 mg-3 00 :00 on every 4 Cente r mg(2.5 mg (four) base)/3 mL hours for nebulizer 360 days. solution ipratropium 2023-0 2024- No 3mL Take [address] [facility] [address] -albuteroL -06 22-26 by Ausragrisel ([facility]) 00:00: 23:59 nebulizati M edical 0.5 mg-3 00 :00 on every 4 Cente r mg(2.5 mg (four) base)/3 mL hours for nebulizer 360 days. solution ipratropium 2023-0 2024- No 3mL Take [address] [facility] [address] -albuteroL 3-06 22-26 by Marcelino ([facility]) 00:00: 23:59 nebulizati M edical 0.5 mg-3 00 :00 on every 4 Cente r mg(2.5 mg (four) base)/3 mL hours for nebulizer 360 days. solution ipratropium 2023-0 2024- No 3mL Take [address] [facility] [address] -albuteroL 3-06 22- by Ausragrisel ([facility]) 00:00: 23:59 nebulizati M edical 0.5 mg-3 00 :00 on every 4 Cent[facility] r mg(2.5 mg (four) base)/3 mL hours for nebulizer 360 days. solution ipratropium 2023-0 2024- No 3mL Take [address] [facility] [address] -albuteroL 3-06 22- by Marcelino ([facility]) 00:00: 23:59 nebulizati M edical 0.5 mg-3 00 :00 on every 4 Cent[facility] r mg(2.5 mg (four) base)/3 mL hours for nebulizer 360 days. solution ipratropium 2023-0 2024- No 3mL Take [address] [facility] [address] -albuteroL -06-18 by Marcelino ([facility]) 00:00: 23:59 nebulizati M edical 0.5 mg-3 00 :00 on every 4 Cent[facility] r mg(2.5 mg (four) base)/3 mL hours for nebulizer 360 days. solution ipratropium 2023-0 2024- No 3mL Take [address] [facility] [address] -albuteroL 3- 02- by Ausragrisel ([facility]) 00:00: 23:59 nebulizati M edical 0.5 mg-3 00 :00 on every 4 [facility] mg(2.5 mg (four) base)/3 mL hours for nebulizer 360 days. solution ipratropium 2023-0 2024- No 3mL Take [address] [facility] -albuteroL 3-06 22- by Marcelino ([facility]) 00:00: 23:59 nebulizati M edical 0.5 mg-3 00 :00 on every 4 [facility] r mg(2.5 mg (four) base)/3 mL hours for nebulizer 360 days. solution ipratropium 2023- No 3mL Take [address] [facility] -albuteroL 06-23 by Marcelino ([facility]) 00:00: 23:59 nebulizati M edical 0.5 mg-3 00 :00 on every 4 [facility] r mg(2.5 mg (four) base)/3 mL hours for nebulizer 360 days. solution gabapentin 2022-0 2022- No 300mg Q.[id number] Take [address] [facility] (NEURONTIN) 06-23 05-08 [id number] [facility] 300 [facility] 00:00: 00:00 3D (300 mg Medical capsule 00 :00 total) by Center mouth 3 (three) times daily. gabapentin 2022-0 2022- No 300mg Q.[id number] Take [address] [facility] (NEURONTIN) 06-23 05-08 [id number] [facility] 300 MG 00:00: 00:00 3D (300 mg Medical capsule 00 :00 total) by Center mouth 3 (three) times daily. gabapentin 2022-0 2022- No 300mg Q.[id number] Take [address] [facility] (NEURONTIN) 3- 05-08 [id number] [facility] 300 MG 00:00: 00:00 3D (300 mg Medical capsule 00 :00 total) by Center mouth 3 (three) times daily. carvediloL 2022-0 2022- No 6.25mg Q.5D Take [address] [facility] [address] [facility] (COREG) 06-23-03 tablet [facility] 6.25 MG 00:00: 00:00 (6.25 mg Medic al tablet 00 :00 total) by Center mouth 2 (two) times daily. carvediloL 2022-0 2022- No 6.25mg Q.5D Take [address] [facility] [address] [facility] (COREG) 06-23 04-03 [facility] 6.25 MG 00:00: 00:00 (6.25 mg Medic al tablet 00 :00 total) by Center mouth 2 (two) times daily. carvediloL 2022- No 6.25mg Q.5D Take [address] [facility] [address] [facility] (COREG) 06-23 04-03 [facility] 6.25 MG 00:00: 00:00 (6.25 mg Medic al tablet 00 :00 total) by Center mouth 2 (two) times daily. carvediloL 2022-0 2022- No 6.25mg Q.5D Take [address] [facility] [address] [facility] (COREG) 06-23 04-03 [facility] 6.25 MG 00:00: 00:00 (6.25 mg Medic al tablet 00 :00 total) by Center mouth 2 (two) times daily. carvediloL 2022-2022- No 6.25mg Q.5D Take [address] [facility] [address] [facility] (COREG) 06-23-03 [facility] 6.25 MG 00:00: 00:00 (6.25 mg Medic al tablet 00 :00 total) by Center mouth 2 (two) times daily. carvediloL 2022- No 6.25mg Q.5D Take [address] [facility] (COREG) 06-23-03 [facility] 6.25 MG 00:00: 00:00 (6.25 mg Medic al tablet 00 :00 total) by Center mouth 2 (two) times daily. simvastatin 2022- No 10mg QD Take [address] [facility] (ZOCOR) 10 06-21 by mouth [facility] MG tablet 15:47: 00:00 nightly. Med ical 13 :00 [place] traZODone 2022- No 100mg QD Take [address] [facility] [address] [facility] (DESYREL) 06-21 mg by [facility] 100 MG 15:47: 00:00 mouth Medical tablet 13 :00 nightly. [place] methocarbam 2022- No 500mg Q.[id number] Take [address] [facility] oL 06-21 [id number] mg by [facility] (ROBAXIN) 15:47: 00:00 3D mouth 3 Medi nuria 500 MG 13 :00 (three) Center tablet times daily. bumetanide 2022- No 1mg Q.5D Take [address] [facility] (BUMEX) 1 06-21 by mouth 2 [facility] MG tablet 15:47: 00:00 (two) Medica l 13 :00 times Center daily. spironolact 2022-0 2022- No 50mg QD Take [address] [facility] one 06-21 by [facility] (ALDACTONE) 15:47: 00:00 daily . Me dical 50 MG 13 :00 Center tablet simvastatin 2022-0 2022- No 10mg QD Take [address] [facility] (ZOCOR) 10 06-21 by mouth [facility] MG tablet 15:47: 00:00 nightly. Med ical 13 :00 Center traZODone 2022-0 2022- No 100mg QD Take [address] [facility] [address] [facility] (DESYREL) 06-21 mg by [facility] 100 MG 15:47: 00:00 mouth Medical tablet 13 :00 nightly. Center methocarbam 2022-0 2022- No 500mg Q.[id number] Take [address] [facility] oL 06-21 [id number] mg by [facility] (ROBAXIN) 15:47: 00:00 3D mouth 3 Medi nuria 500 MG 13 :00 (three) Center tablet times daily. bumetanide 2022-2022- No 1mg Q.5D Take [address] [facility] (BUMEX) 1 06-21 by mouth 2 [facility] MG tablet 15:47: 00:00 (two) Medica l 13 :00 times Center daily. spironolact 2022- No 50mg QD Take [address] [facility] one 06-21 by [facility] (ALDACTONE) 15:47: 00:00 daily . Me dical 50 MG 13 :00 Center tablet simvastatin 2022-0 2022- No 10mg QD Take [address] [facility] (ZOCOR) 10 06-21 by mouth [facility] MG tablet 15:47: 00:00 nightly. Med ical 13 :00 Center traZODone 2022-0 2022- No 100mg QD Take [address] [facility] [address] [facility] (DESYREL) 06-21 mg by [facility] 100 MG 15:47: 00:00 mouth Medical tablet 13 :00 nightly. Center methocarbam 2022-0 2022- No 500mg Q.[id number] Take [address] [facility] oL 06-21 [id number] mg by [facility] (ROBAXIN) 15:47: 00:00 3D mouth 3 Medi nuria 500 MG 13 :00 (three) Center tablet times daily. bumetanide 2022- No 1mg Q.5D Take [address] [facility] (BUMEX) 1 06-21 by mouth 2 [facility] MG tablet 15:47: 00:00 (two) Medica l 13 :00 times Center daily. spironolact 2022- No 50mg QD Take [address] [facility] one 06-21 by [facility] (ALDACTONE) 15:47: 00:00 daily . Me dical 50 MG 13 :00 Center tablet simvastatin 2022-2022- No 10mg QD Take [address] [facility] (ZOCOR) 10 06-21 by mouth [facility] MG tablet 15:47: 00:00 nightly. Med ical 13 :00 Center traZODone 2022- No 100mg QD Take [address] [facility] [address] [facility] (DESYREL) 06-21 mg by [facility] 100 MG 15:47: 00:00 mouth Medical tablet 13 :00 nightly. Center methocarbam 2022- No 500mg Q.[id number] Take [address] [facility] oL 06-21 [id number] mg by [facility] (ROBAXIN) 15:47: 00:00 3D mouth 3 Medi nuria 500 MG 13 :00 (three) Center tablet times daily. bumetanide 2022- No 1mg Q.5D Take [address] [facility] (BUMEX) 1 06-21 by mouth 2 [facility] MG tablet 15:47: 00:00 (two) Medica l 13 :00 times Center daily. spironolact 2022- No 50mg QD Take [address] [facility] one 06-21 by [facility] (ALDACTONE) 15:47: 00:00 daily . Me dical 50 MG 13 :00 Center tablet simvastatin 2022-2022- No 10mg QD Take [address] [facility] (ZOCOR) 10 06-21 by mouth [facility] MG tablet 15:47: 00:00 nightly. Med ical 13 :00 Center traZODone 3- No 100mg QD Take [address] [facility] [address] [facility] (DESYREL) 06-21 03-01 mg by [facility] 100 MG 15:47: 00:00 mouth Medical tablet 13 :00 nightly. [place] methocarbam 2022-0 2022- No 500mg Q.[id number] Take [address] [facility] oL 06-21- [id number] mg by [facility] (ROBAXIN) 15:47: 00:00 3D mouth 3 Medi nuria 500 MG 13 :00 (three) Center tablet times daily. bumetanide 2022-2022- No 1mg Q.5D Take [address] [facility] (BUMEX) 1 06-21 by mouth 2 [facility] MG tablet 15:47: 00:00 (two) Medica l 13 :00 times Center daily. spironolact 2022- No 50mg QD Take [address] [facility] one 06-21 by mouth [facility] (ALDACTONE) 15:47: 00:00 daily . Me dical 50 MG 13 :00 Center tablet simvastatin 2022- No 10mg QD Take [address] [facility] (ZOCOR) 10 06-21 by mouth [facility] MG tablet 15:47: 00:00 nightly. Med ical 13 :00 Center traZODone 2022- No 100mg QD Take [address] [facility] [address] [facility] (DESYREL) 06-21- mg by [facility] 100 MG 15:47: 00:00 mouth Medical tablet 13 :00 nightly. [place] methocarbam 0 2022- No 500mg Q.[id number] Take [address] [facility] oL 06-21- [id number] mg by [facility] (ROBAXIN) 15:47: 00:00 3D mouth 3 Medi nuria 500 MG 13 :00 (three) Center tablet times daily. bumetanide 2022-0 2022- No 1mg Q.5D Take [address] [facility] (BUMEX) 1 06-21- by mouth 2 [facility] MG tablet 15:47: 00:00 (two) Medica l 13 :00 times Center daily. spironolact 2022-0 2022- No 50mg QD Take [address] [facility] one 306-21 by mouth [facility] (ALDACTONE) 15:47: 00:00 daily . Me dical 50 MG 13 :00 Center tablet simvastatin 2022- No 10mg QD Take [address] [facility] (ZOCOR) 10 06-21 by mouth [facility] MG tablet 15:47: 00:00 nightly. Med ical 13 :00 Center traZODone 2022-0 2022- No 100mg QD Take [address] [facility] [address] [facility] (DESYREL) 06-21-01 mg by [facility] 100 MG 15:47: 00:00 mouth Medical tablet 13 :00 nightly. Center methocarbam 2022-0 2022- No 500mg Q.[id number] Take [address] [facility] oL 06-21- [id number] mg by [facility] (ROBAXIN) 15:47: 00:00 3D mouth 3 Medi nuria 500 MG 13 :00 (three) Center tablet times daily. bumetanide 2022-2022- No 1mg Q.5D Take [address] [facility] (BUMEX) 1 06-21 by mouth 2 [facility] MG tablet 15:47: 00:00 (two) Medica l 13 :00 times Center daily. spironolact 2022- No 50mg QD Take [address] [facility] one 06-21 by [facility] (ALDACTONE) 15:47: 00:00 daily . Me dical 50 MG 13 :00 Center tablet simvastatin 2022- No 10mg QD Take [address] [facility] (ZOCOR) 10 06-21 by mouth [facility] MG tablet 15:47: 00:00 nightly. Med ical 13 :00 Center traZODone 0 2022- No 100mg QD Take [address] [facility] [address] [facility] (DESYREL) 06-21-01 mg by [facility] 100 MG 15:47: 00:00 mouth Medical tablet 13 :00 nightly. Center methocarbam 2022-0 2022- No 500mg Q.[id number] Take [address] [facility] oL 06-21 [id number] mg [facility] (ROBAXIN) 15:47: 00:00 3D mouth 3 Medi nuria 500 MG 13 :00 (three) Center tablet times daily. bumetanide 2022- No 1mg Q.5D Take [address] [facility] (BUMEX) 1 06-21 by mouth 2 [facility] MG tablet 15:47: 00:00 (two) Medica l 13 :00 times Center daily. spironolact 2022- No 50mg QD Take [address] [facility] one 06-21 by [facility] (ALDACTONE) 15:47: 00:00 daily . Me dical 50 MG 13 :00 Center tablet simvastatin 2022-2022- No 10mg QD Take [address] [facility] (ZOCOR) 10 06-21 by mouth [facility] MG tablet 15:47: 00:00 nightly. Med ical 13 :00 Center traZODone 2022- No 100mg QD Take [address] [facility] [address] [facility] (DESYREL) 06-21 mg by [facility] 100 MG 15:47: 00:00 mouth Medical tablet 13 :00 nightly. Center methocarbam 2022- No 500mg Q.[id number] Take [address] [facility] oL 06-21 [id number] mg by [facility] (ROBAXIN) 15:47: 00:00 3D mouth 3 Medi nuria 500 MG 13 :00 (three) Center tablet times daily. bumetanide 2022- No 1mg Q.5D Take [address] [facility] (BUMEX) 1 06-21 by mouth 2 [facility] MG tablet 15:47: 00:00 (two) Medica l 13 :00 times Center daily. spironolact 2022- No 50mg QD Take [address] [facility] one 06-21 by [facility] (ALDACTONE) 15:47: 00:00 daily . Me dical 50 MG 13 :00 Center tablet simvastatin 2022- No 10mg QD Take [address] [facility] (ZOCOR) 10 06-21 by mouth [facility] MG tablet 15:47: 00:00 nightly. Med ical 13 :00 Center traZODone 2022- No 100mg QD Take [address] [facility] [address] [facility] (DESYREL) 06-21 mg by [facility] 100 MG 15:47: 00:00 mouth Medical tablet 13 :00 nightly. Center methocarbam 2022-0 2022- No 500mg Q.[id number] Take [address] [facility] oL 06-21 [id number] mg [facility] (ROBAXIN) 15:47: 00:00 3D mouth 3 Medi nuria 500 MG 13 :00 (three) Center tablet times daily. bumetanide 2022-0 2023- No 1mg Q.5D Take [address] [facility] (BUMEX) 1 06-21 by mouth 2 [facility] MG tablet 15:47: 00:00 (two) Medica l 13 :00 times Center daily. spironolact 2022-2022- No 50mg QD Take [address] [facility] one 06-21 by [facility] (ALDACTONE) 15:47: 00:00 daily . Me dical 50 MG 13 :00 Center tablet simvastatin 2022-2022- No 10mg QD Take [address] [facility] (ZOCOR) 10 06-21 by mouth [facility] MG tablet 15:47: 00:00 nightly. Med ical 13 :00 Center traZODone 2022-2022- No 100mg QD Take [address] [facility] [address] [facility] (DESYREL) 06-21 mg [facility] 100 MG 15:47: 00:00 mouth Medical tablet 13 :00 nightly. Center methocarbam 0 2022- No 500mg Q.[id number] Take [address] [facility] oL 06-21 [id number] mg [facility] (ROBAXIN) 15:47: 00:00 3D mouth 3 Medi nuria 500 MG 13 :00 (three) Center tablet times daily. bumetanide 2022-0 2022- No 1mg Q.5D Take [address] [facility] (BUMEX) 1 06-21 by mouth 2 [facility] MG tablet 15:47: 00:00 (two) Medica l 13 :00 times Center daily. spironolact 2022-0 2022- No 50mg QD Take [address] [facility] one 06-21 by [facility] (ALDACTONE) 15:47: 00:00 daily . Me dical 50 MG 13 :00 Center tablet simvastatin 2022-0 2022- No 10mg QD Take [address] [facility] (ZOCOR) 10 06-21 by mouth [facility] MG tablet 15:47: 00:00 nightly. Med ical 13 :00 Center traZODone 2022- No 100mg QD Take [address] [facility] [address] [facility] (DESYREL) 06-21-01 mg by [facility] 100 MG 15:47: 00:00 mouth Medical tablet 13 :00 nightly. Center methocarbam 2022- No 500mg Q.[id number] Take [address] [facility] oL 06-21 [id number] mg by [facility] (ROBAXIN) 15:47: 00:00 3D mouth 3 Medi nuria 500 MG 13 :00 (three) Center tablet times daily. bumetanide 2022- No 1mg Q.5D Take [address] [facility] (BUMEX) 1 06-21 by mouth 2 [facility] MG tablet 15:47: 00:00 (two) Medica l 13 :00 times Center daily. spironolact 2022- No 50mg QD Take [address] [facility] one 06-21 by [facility] (ALDACTONE) 15:47: 00:00 daily . Me dical 50 MG 13 :00 Center tablet simvastatin 2022- No 10mg QD Take [address] [facility] (ZOCOR) 10 06-21 by mouth [facility] MG tablet 15:47: 00:00 nightly. Med ical 13 :00 [place] traZODone 2022- No 100mg QD Take [address] [facility] [address] [facility] (DESYREL) 06-21 mg by [facility] 100 MG 15:47: 00:00 mouth Medical tablet 13 :00 nightly. Center methocarbam 2022- No 500mg Q.[id number] Take [address] [facility] oL 06-21 [id number] mg by [facility] (ROBAXIN) 15:47: 00:00 3D mouth 3 Medi nuria 500 MG 13 :00 (three) Center tablet times daily. bumetanide 2022- No 1mg Q.5D Take [address] [facility] (BUMEX) 1 06-21 by mouth 2 [facility] MG tablet 15:47: 00:00 (two) Medica l 13 :00 times Center daily. spironolact 2022- No 50mg QD Take [address] [facility] one 06-21 by [facility] (ALDACTONE) 15:47: 00:00 daily . Me dical 50 MG 13 :00 Center tablet polyethylen 2022- No 17g Take [address] [facility] e glycol -04 25-04 by mouth [facility] (GLYCOLAX) 00:00: 23:59 daily as Me dical 17 gram 00 :00 needed Center packet (Constipat ion) for up to 3 days. polyethylen 2022- No 17g Take [address] [facility] e glycol -04 25-04 by mouth [facility] (GLYCOLAX) 00:00: 23:59 daily as Me dical 17 gram 00 :00 needed Center packet (Constipat ion) for up to 3 days. polyethylen 2022- No 17g Take [address] [facility] e glycol 06-2104 by mouth [facility] (GLYCOLAX) 00:00: 23:59 daily as Me dical 17 gram 00 :00 needed Center packet (Constipat ion) for up to 3 days. polyethylen 2022- No 17g Take [address] [facility] e glycol -04 25-04 by mouth [facility] (GLYCOLAX) 00:00: 23:59 daily as Me dical 17 gram 00 :00 needed Center packet (Constipat ion) for up to 3 days. polyethylen 2022- No 17g Take [address] [facility] e glycol -04 25-04 by mouth [facility] (GLYCOLAX) 00:00: 23:59 daily as Me dical 17 gram 00 :00 needed Center packet (Constipat ion) for up to 3 days. polyethylen 2022- No 17g Take [address] [facility] e glycol 3-04 25-04 by mouth [facility] (GLYCOLAX) 00:00: 23:59 daily as Me dical 17 gram 00 :00 needed Center packet (Constipat ion) for up to 3 days. polyethylen 2022- No 17g Take [address] [facility] e glycol -04 25-04 by mouth [facility] (GLYCOLAX) 00:00: 23:59 daily as Me dical 17 gram 00 :00 needed Center packet (Constipat ion) for up to 3 days. polyethylen 2022- No 17g Take [address] [facility] e glycol 06-21-04 by mouth [facility] (GLYCOLAX) 00:00: 23:59 daily as Me dical 17 gram 00 :00 needed Center packet (Constipat ion) for up to 3 days. polyethylen 2022- No 17g Take [address] [facility] e glycol 06-21-04 by mouth [facility] (GLYCOLAX) 00:00: 23:59 daily as Me dical 17 gram 00 :00 needed Center packet (Constipat ion) for up to 3 days. polyethylen 2022- No 17g Take [address] [facility] e glycol 06-21-04 by mouth [facility] (GLYCOLAX) 00:00: 23:59 daily as Me dical 17 gram 00 :00 needed Center packet (Constipat ion) for up to 3 days. polyethylen 2022- No 17g Take [address] [facility] e glycol 06-2104 by mouth [facility] (GLYCOLAX) 00:00: 23:59 daily as Me dical 17 gram 00 :00 needed Center packet (Constipat ion) for up to 3 days. polyethylen 2022- No 17g Take [address] [facility] e glycol 06-2104 by mouth [facility] (GLYCOLAX) 00:00: 23:59 daily as Me dical 17 gram 00 :00 needed Center packet (Constipat ion) for up to 3 days. polyethylen No 17g Take [address] [facility] e glycol 06-21-04 by mouth [facility] (GLYCOLAX) 00:00: 23:59 daily as Me dical 17 gram 00 :00 needed Center packet (Constipat ion) for up to 3 days. gabapentin 2022- No 300mg Q.5D Take [address] [facility] (NEURONTIN) 06-21 capsule [facility] 300 MG 00:00: 00:00 (300 mg Medical capsule 00 :00 total) by Center mouth 2 (two) times daily. gabapentin 2022- No 300mg Q.5D Take [address] [facility] (NEURONTIN) 3-01 03-03 capsule [facility] 300 MG 00:00: 00:00 (300 mg Medical capsule 00 :00 total) by Center mouth 2 (two) times daily. gabapentin 2022-0 2023- No 300mg Q.5D Take [address] [facility] (NEURONTIN) 3- 03-03 capsule [facility] 300 MG 00:00: 00:00 (300 mg Medical capsule 00 :00 total) by Center mouth 2 (two) times daily. gabapentin 2022-0 2023- No 300mg Q.5D Take [address] [facility] (NEURONTIN) 3 03-03 [facility] 300 MG 00:00: 00:00 (300 mg Medical capsule 00 :00 total) by Center mouth 2 (two) times daily. gabapentin 2022-0 2022- No 300mg Q.5D Take [address] [facility] (NEURONTIN) 3-03 capsule [facility] 300 MG 00:00: 00:00 (300 mg Medical capsule 00 :00 total) by Center mouth 2 (two) times daily. gabapentin 2022-0 3- No 300mg Q.5D Take [address] [facility] (NEURONTIN) 3-03 capsule [facility] 300 MG 00:00: 00:00 (300 mg Medical capsule 00 :00 total) by Center mouth 2 (two) times daily. gabapentin 2022-0 3- No 300mg Q.5D Take [address] [facility] (NEURONTIN) 3 03-03 capsule [facility] 300 MG 00:00: 00:00 (300 mg Medical capsule 00 :00 total) by Center mouth 2 (two) times daily. gabapentin 2022-0 3- No 300mg Q.5D Take [address] [facility] (NEURONTIN) 3 03-03 capsule [facility] 300 MG 00:00: 00:00 (300 mg Medical capsule 00 :00 total) by Center mouth 2 (two) times daily. gabapentin 3-0 2023- No 300mg Q.5D Take [address] [facility] (NEURONTIN) 3- 03-03 capsule [facility] 300 MG 00:00: 00:00 (300 mg Medical capsule 00 :00 total) by Center mouth 2 (two) times daily. gabapentin 3-0 2023- No 300mg Q.5D Take [address] [facility] (NEURONTIN) 3- 03-03 capsule [facility] 300 MG 00:00: 00:00 (300 mg Medical capsule 00 :00 total) by Center mouth 2 (two) times daily. gabapentin 2023-0 2023- No 300mg Q.5D Take [address] [facility] (NEURONTIN) 3 03-03 [facility] 300 MG 00:00: 00:00 (300 mg Medical capsule 00 :00 total) by Center mouth 2 (two) times daily. gabapentin 2023-0 2023- No 300mg Q.5D Take [address] [facility] (NEURONTIN) 06-21 03-03 [facility] 300 MG 00:00: 00:00 (300 mg Medical capsule 00 :00 total) by Center mouth 2 (two) times daily. gabapentin 2023-0 2023- No 300mg Q.5D Take [address] [facility] (NEURONTIN) 3 03-03 [facility] 300 MG 00:00: 00:00 (300 mg Medical capsule 00 :00 total) by Center mouth 2 (two) times daily. lifitegrast 2022-0 Yes 1[drp] Q.5D Apply [address] [facility] (Xiidra) 5 2-16 drop to [facility] % Dpet 12:04: eye(s) 2 Medical 23 (two) Center times daily. carboxymeth 202-0 Yes 1[drp] Q.[id number] Apply [address] [facility] ylcellulose 2-16 [id number] drop to [facility] sodium 12:04: 3D eye(s) 3 Medical (REFRESH 23 (three) Center OPHT) times daily. spironolact 2022-0 Yes 50mg QD Take [address] [facility] one 2-16 by mouth [facility] (ALDACTONE) 05:52: daily . Med ical 50 MG 21 Center tablet gabapentin 2022-0 Yes 300mg Q.25D Take [address] (NEURONTIN) 2-16 mg by [facility] 300 MG 05:12: mouth 4 Medical capsule 32 (four) Center times daily. hydrOXYchlo 2023-0 Yes QD Take by [facility] roQUINE 2-16 [facility] (PLAQUENIL) 05:12: daily For M edical 200 mg 32 90 days . Center tablet simvastatin 2022-0 Yes 10mg QD Take [address] [facility] (ZOCOR) 10 2-16 by mouth [facility] MG tablet 03:17: nightly. Medi nuria 42 Center allopurinoL 2022-0 Yes 100mg QD Take [address] (ZYLOPRIM) 2-16 mg by [facility] 100 MG 03:17: mouth Medical tablet 42 daily. [place] donepeziL 2022-0 Yes 10mg QD Take [address] [facility] [address] [facility] (ARICEPT) 2-16 by mouth [facility] 10 MG 03:17: nightly. Medical tablet 42 Center traZODone 2022-0 Yes 100mg QD Take [address] [facility] (DESYREL) 2-16 mg by [facility] 100 MG 03:17: mouth Medical tablet 42 nightly. [place] isosorbide 2022-0 Yes 60mg QD Take [address] [facility] mononitrate 2-16 by mouth [facility] (IMDUR) 60 03:17: daily ER . M edical MG 24 hr 42 Center tablet metoprolol 2022-0 Yes 25mg QD Take [address] [facility] succinate 2-16 by [facility] (TOPROL-XL) 03:17: daily ER . Medical 25 MG 24 hr 42 [place] tablet montelukast 2022-0 Yes 10mg QD Take [address] [facility] (SINGULAIR) 2-16 by mouth [facility] 10 mg 03:17: nightly. Medical tablet 42 [place] aspirin 81 2022-0 Yes 81mg QD Take [address] MG chewable 2-16 by mouth [facility] tablet 03:17: daily. [facility] [place] 42 [place] methocarbam 2022-0 Yes 500mg Q.[id number] Take [address] [facility] oL 2-16 [id number] mg by [facility] (ROBAXIN) 03:17: 3D mouth 3 Medic al 500 MG 42 (three) Center tablet times daily. bumetanide 2022-0 Yes 1mg Q.5D Take [address] [facility] [address] [facility] (BUMEX) 1 2-16 by mouth 2 [facility] MG tablet 03:17: (two) Medical 42 times Center daily. hydrALAZINE 2022-0 Yes 25mg Take [address] [facility] (APRESOLINE 2-16 by mouth [facility] ) 25 MG 03:17: every 8 Medical tablet 42 (eight) Center hours. HYDROcodone 2022-0 Yes 1{tbl} Take [address] [facility] [address] [facility] -acetaminop 2-16 tablet by [facility] (NORCO 03:17: mouth Medica l 10-325) 42 every 4 Center 10-325 mg (four) per tablet hours as needed for Pain. doxepin 2023-0 Yes 10mg QD Take [address] [facility] (SINEquan) 2-15 [facility] 10 MG 00:00: (10 mg Medical capsule 00 total) by Center mouth nightly. doxepin 2023-0 Yes 10mg QD Take [address] [facility] (SINEquan) 2-15 [facility] 10 MG 00:00: (10 mg Medical capsule 00 total) by Center mouth nightly. doxepin 2023-0 Yes 10mg QD Take [address] [facility] (SINEquan) 2-15 [facility] 10 MG 00:00: (10 mg Medical capsule 00 total) by Center mouth nightly. doxepin 2023-0 Yes 10mg QD Take [address] [facility] (SINEquan) 2-15 [facility] 10 MG 00:00: (10 mg Medical capsule 00 total) by Center mouth nightly. doxepin 2023-0 Yes 10mg QD Take [address] [facility] (SINEquan) 2-15 [facility] 10 MG 00:00: (10 mg Medical capsule 00 total) by Center mouth nightly. doxepin 2023-0 Yes 10mg QD Take [address] [facility] (SINEquan) 2-15 [facility] 10 MG 00:00: (10 mg Medical capsule 00 total) by Center mouth nightly. doxepin 2023-0 Yes 10mg QD Take [address] [facility] (SINEquan) 2-15 [facility] 10 MG 00:00: (10 mg Medical capsule 00 total) by Center mouth nightly. doxepin 2023-0 Yes 10mg QD Take [address] [facility] (SINEquan) 2-15 [facility] 10 MG 00:00: (10 mg Medical capsule 00 total) by Center mouth nightly. doxepin 2023-0 Yes 10mg QD Take [address] [facility] (SINEquan) 2-15 [facility] 10 MG 00:00: (10 mg Medical capsule 00 total) by Center mouth nightly. doxepin 2023-0 Yes 10mg QD Take [address] [facility] (SINEquan) 2-15 [facility] 10 MG 00:00: (10 mg Medical capsule 00 total) by Center mouth nightly. doxepin 2023-0 Yes 10mg QD Take [address] [facility] (SINEquan) 2-15 [facility] 10 MG 00:00: (10 mg Medical capsule 00 total) by Center mouth nightly. doxepin 3-0 Yes 10mg QD Take [address] [facility] (SINEquan) 2-15 [facility] 10 MG 00:00: (10 mg Medical capsule 00 total) by Center mouth nightly. chlorhexidi 3-0 Yes SMARTSIG:B [facility] (PERIDEX) 00:00: Medical 0.12 % 00 Center solution chlorhexidi 3-0 Yes SMARTSIG:B [facility] (PERIDEX) 00:00: Medical 0.12 % 00 Center solution chlorhexidi 3-0 Yes SMARTSIG:B [facility] (PERIDEX) 00:00: Medical 0.12 % 00 Center solution chlorhexidi 3-0 Yes SMARTSIG:B [facility] (PERIDEX) 00:00: Medical 0.12 % 00 Center solution chlorhexidi 3-0 Yes SMARTSIG:B [facility] (PERIDEX) 00:00: Medical 0.12 % 00 Center solution chlorhexidi 3-0 Yes SMARTSIG:B [facility] 2-[facility] (PERIDEX) 00:00: Medical 0.12 % 00 Center solution chlorhexidi 3-0 2023- No SMARTSIG:B [facility] 2-13 04-03 [facility] (PERIDEX) 00:00: 00:00 Medical 0.12 % 00 :00 Center solution chlorhexidi 3-0 2023- No SMARTSIG:B [facility] 2-13 04-03 [facility] (PERIDEX) 00:00: 00:00 Medical 0.12 % 00 :00 Center solution chlorhexidi 2023-0 2023- No SMARTSIG:B [facility] 2-13 04-03 [facility] (PERIDEX) 00:00: 00:00 Medical 0.12 % 00 :00 Center solution chlorhexidi 2023-0 2023- No SMARTSIG:B [facility]13 04-03 [facility] ([facility]) 00:00: 00:00 Medical 0.12 % 00 :00 Center solution chlorhexidi 2022-0 2022- No SMARTSIG:B [facility] 06-05-03 [facility] ([facility]) 00:00: 00:00 Medical 0.12 % 00 :00 Center solution chlorhexidi 2022-0 2022- No SMARTSIG:B [facility] 06[facility]-03 [facility] ([facility]) 00:00: 00:00 Medical 0.12 % 00 :00 Center solution hydroxychlo 3-0 Yes [id number] 200mg QD Take 1 [facility] (PLAQUENIL) 00:00: (200 mg [facility] 200 mg 00 total) by l tablet mouth daily. hydroxychlo 3-0 Yes [id number] 200mg QD Take 1 [facility] (PLAQUENIL) 00:00: (200 mg [facility] 200 mg 00 total) by l tablet mouth daily. hydroxychlo 3-0 Yes [id number] 200mg QD Take 1 [facility] (PLAQU[facility]IL) 00:00: (200 mg [facility] 200 mg 00 total) by l tablet mouth daily. hydroxychlo 3-0 Yes [id number] 200mg QD Take 1 [facility] (PLAQU[facility]IL) 00:00: (200 mg [facility] 200 mg 00 total) by l tablet mouth daily. hydroxychlo 3-0 Yes [id number] 200mg QD Take 1 [facility] (PLAQUENIL) 00:00: (200 mg [facility] 200 mg 00 total) by l tablet mouth daily. hydroxychlo 2022-0 3- No [id number] 200mg QD Take 1 [facility] (PLAQUENIL) 00:00: 00:00 (200 mg [facility] 200 mg 00 :00 total) by l tablet mouth daily. hydroxychlo 3-0 3- No [id number] 200mg QD Take 1 [facility] (PLAQUENIL) 00:00: 00:00 (200 mg [facility] 200 mg 00 :00 total) by l tablet mouth daily. hydroxychlo 2022-0 3- No [id number] 200mg QD Take 1 [facility] (PLAQUENIL) 00:00: 00:00 (200 mg [facility] 200 mg 00 :00 total) by l tablet mouth daily. aspirin 3-0 Yes 81mg QD Take 1 [facility] (ECOTRIN) 1-17 tablet (81 st 81 MG 15:22: mg total) [facility] 33 by mouth l coated daily. tablet budesonide 2022-0 Yes .5mg Q.5D Take 0.5 Met [facility] [...] a nebulizer day as solution needed. magnesium 2022-0 Yes 400mg QD Take 1 [facility] oxide 1-[address] (MAG-OX) 15:22: (400 mg [facility] 400 mg 33 total) by l (241.3 mg mouth magnesium) daily. tablet BUMETanide 2022-0 Yes 1mg QD Take 1 [facility] di (BUMEX) 1 1-17 tablet (1 st MG tablet 15:22: mg total) [facility] 33 by mouth l daily. TURMERIC 2022-0 Yes 1000{ca Take 1,000 [facility] ORAL 1-17 psule} capsules st 15:22: by mouth. [facility] 33 l aspirin 3-0 Yes 81mg QD Take 1 [facility] (ECOTRIN) 1-17 tablet (81 st 81 MG 15:22: mg total) [facility] enteric 33 by mouth l coated daily. tablet budesonide 2022-0 Yes .5mg Q.5D Take 0.5 [facility] (PULMICORT) 1-[address] 0.5 mg/2 mL 15:22: nebulizati [facility] nebulizer 33 on 2 (two) l solution times a day. Rinse mouth after each use. albuterol 3-0 Yes 2.5mg Q.5D Take 2.5 [facility] (ACCUNEB) 1-[address] 2.5 mg /3 15:22: nebulizati [facility] mL (0.083 33 on 2 (two) l %) times a nebulizer day as solution needed. magnesium 2023-0 Yes 400mg QD Take 1 [facility] di oxide 1-[address] (MAG-OX) 15:22: (400 mg Hospit a 400 mg 33 total) by l (241.3 mg mouth magnesium) daily. tablet BUMETanide 2023-0 Yes 1mg QD Take 1 [facility] di (BUMEX) 1 1-17 tablet (1 st MG tablet 15:22: mg total) [facility] 33 by mouth l daily. TURMERIC 2022-0 Yes 1000{ca Take 1,000 [facility] ORAL 1-17 psule} capsules st 15:22: by mouth. [facility] 33 l aspirin 2023-0 Yes 81mg QD Take 1 [facility] (ECOTRIN) 1-17 tablet (81 st 81 MG 15:22: mg total) [facility] enteric 33 by mouth l coated daily. tablet budesonide 2022-0 Yes .5mg Q.5D Take 0.5 [facility] (PULMICORT) 1-[address] 0.5 mg/2 mL 15:22: nebulizati [facility] nebulizer 33 on 2 (two) l solution times a day. Rinse mouth after each use. albuterol 3-0 Yes 2.5mg Q.5D Take 2.5 [facility] (ACCUNEB) 1-[address] 2.5 mg /3 15:22: nebulizati [facility] mL (0.083 33 on 2 (two) l %) times a nebulizer day as solution needed. magnesium 2023-0 Yes 400mg QD Take 1 [facility] oxide 1-[address] (MAG-OX) 15:22: (400 mg [facility] 400 mg 33 total) by l (241.3 mg mouth magnesium) daily. tablet BUMETanide 2023-0 Yes 1mg QD Take 1 [facility] di (BUMEX) 1 1-17 tablet (1 st MG tablet 15:22: mg total) [facility] 33 by mouth l daily. TURMERIC 2023-0 Yes 1000{ca Take 1,000 [facility] ORAL 1-17 psule} capsules st 15:22: by mouth. [facility] 33 l aspirin 2023-0 Yes 81mg QD Take 1 [facility] (ECOTRIN) 1-17 tablet (81 st 81 MG 15:22: mg total) [facility] 33 by mouth l coated daily. tablet budesonide 2023-0 Yes .5mg Q.5D Take 0.5 [facility] (PULMICORT) 1-[address] 0.5 mg/2 mL 15:22: nebulizati [facility] nebulizer 33 on 2 (two) l solution times a day. Rinse mouth after each use. albuterol 2023-0 Yes 2.5mg Q.5D Take 2.5 [facility] (ACCUNEB) 1-[address] 2.5 mg /3 15:22: nebulizati [facility] mL (0.083 33 on 2 (two) l %) times a nebulizer day as solution needed. magnesium 2023-0 Yes 400mg QD Take 1 [facility] oxide 1-[address] (MAG-OX) 15:22: (400 mg [facility] 400 mg 33 total) by l (241.3 mg mouth magnesium) daily. tablet BUMETanide 2023-0 Yes 1mg QD Take 1 [facility] di (BUMEX) 1 1-17 tablet (1 st MG tablet 15:22: mg total) [facility] by mouth l daily. TURMERIC 2023-0 Yes 1000{ca Take 1,000 [facility] ORAL 1-17 psule} capsules st 15:22: by mouth. [facility] 33 l aspirin 2023-0 Yes 81mg QD Take 1 [facility] (ECOTRIN) 1-17 tablet (81 st 81 MG 15:22: mg total) [facility] 33 by mouth l coated daily. tablet budesonide 2023-0 Yes .5mg Q.5D Take 0.5 [facility] (PULMICORT) 1-[address] 0.5 mg/2 mL 15:22: nebulizati [facility] nebulizer 33 on 2 (two) l solution times a day. Rinse mouth after each use. albuterol 2023-0 Yes 2.5mg Q.5D Take 2.5 [facility] (ACCUNEB) 1-[address] 2.5 mg /3 15:22: nebulizati [facility] mL (0.083 33 on 2 (two) l %) times a nebulizer day as solution needed. magnesium 2023-0 Yes 400mg QD Take 1 [facility] oxide 1-[address] (MAG-OX) 15:22: (400 mg [facility] 400 mg 33 total) by l (241.3 mg mouth magnesium) daily. tablet BUMETanide 2023-0 Yes 1mg QD Take 1 [facility] di (BUMEX) 1 1-17 tablet (1 st MG tablet 15:22: mg total) [facility] 33 by mouth l daily. TURMERIC 2023-0 Yes 1000{ca Take 1,000 [facility] ORAL 1-17 psule} capsules st 15:22: by mouth. [facility] 33 l aspirin 2023-0 Yes 81mg QD Take 1 [facility] (ECOTRIN) 1-17 tablet (81 st 81 MG 15:22: mg total) [facility] 33 by mouth l coated daily. tablet budesonide 2023-0 Yes .5mg Q.5D Take 0.5 [facility] (PULMICORT) 1-[address] 0.5 mg/2 mL 15:22: nebulizati [facility] nebulizer 33 on 2 (two) l solution times a day. Rinse mouth after each use. albuterol 2023-0 Yes 2.5mg Q.5D Take 2.5 [facility] (ACCUNEB) 1-[address] 2.5 mg /3 15:22: nebulizati [facility] mL (0.083 33 on 2 (two) l %) times a nebulizer day as solution needed. magnesium 2023-0 Yes 400mg QD Take 1 [facility] oxide 1-[address] (MAG-OX) 15:22: (400 mg [facility] 400 mg 33 total) by l (241.3 mg mouth magnesium) daily. tablet BUMETanide 2023-0 Yes 1mg QD Take 1 [facility] di (BUMEX) 1 1-17 tablet (1 st MG tablet 15:22: mg total) [facility] 33 by mouth l daily. TURMERIC 2023-0 Yes 1000{ca Take 1,000 [facility] ORAL 1-17 psule} capsules st 15:22: by mouth. [facility] 33 l aspirin 2023-0 Yes 81mg QD Take 1 [facility] (ECOTRIN) 1-17 tablet (81 st 81 MG 15:22: mg total) [facility] enter[facility] 33 by mouth l coated daily. tablet budesonide 2023-0 Yes .5mg Q.5D Take 0.5 [facility] (PULMICORT) 1-[address] 0.5 mg/2 mL 15:22: nebulizati [facility] nebulizer 33 on 2 (two) l solution times a day. Rinse mouth after each use. albuterol 2023-0 Yes 2.5mg Q.5D Take 2.5 [facility] (ACCUNEB) 1-[address] 2.5 mg /3 15:22: nebulizati [facility] mL (0.083 33 on 2 (two) l %) times a nebulizer day as solution needed. magnesium 3-0 Yes 400mg QD Take 1 [facility] oxide 1-[address] (MAG-OX) 15:22: (400 mg Hospit a 400 mg 33 total) by l (241.3 mg mouth magnesium) daily. tablet BUMETanide 2022-0 Yes 1mg QD Take 1 [facility] di (BUMEX) 1 1-17 tablet (1 st MG tablet 15:22: mg total) [facility] 33 by mouth l daily. TURMERIC 3-0 Yes 1000{ca Take 1,000 [facility] ORAL 1-17 psule} capsules st 15:22: by mouth. [facility] 33 l aspirin 3-0 Yes 81mg QD Take 1 [facility] (ECOTRIN) 1-17 tablet (81 st 81 MG 15:22: mg total) [facility] 33 by mouth l coated daily. tablet budesonide 3-0 Yes .5mg Q.5D Take 0.5 [facility] (PULMICORT) 1-[address] 0.5 mg/2 mL 15:22: nebulizati [facility] nebulizer 33 on 2 (two) l solution times a day. Rinse mouth after each use. albuterol 2023-0 Yes 2.5mg Q.5D Take 2.5 [facility] (ACCUNEB) 1-[address] 2.5 mg /3 15:22: nebulizati [facility] mL (0.083 33 on 2 (two) l %) times a nebulizer day as solution needed. magnesium 2023-0 Yes 400mg QD Take 1 Metho di [...] 15:22: by mouth. [facility] 33 l diclofenac Yes Apply [facility] 00 [place] diclofenac 2022-[address] [facility] % Gel 1-17 [facility]. [facility] 00 [place] diclofenac 2022-[address] [facility] % Gel 1-17 [facility]. [facility] 00 [place] diclofenac 2022-[address] [facility] % Gel 1-17 top[facility]. [facility] 00 [place] diclofenac 2022-[address] [facility] % Gel 1-17 topically. [facility] 00 [place] diclofenac 2022-[address] [facility] % Gel 1-17 topically. [facility] 00 [place] diclofenac 2022-[address] [facility] % Gel 1-17 top[facility]. [facility] 00 [place] diclofenac 2022-[address] [facility] % Gel 1-17 topically. [facility] 00 [place] diclofenac 2022-[address] [facility] % Gel 1-17 topically. [facility] 00 [place] diclofenac 2022-[address] [facility] % Gel 1-17 topically. [facility] 00 [place] diclofenac 2022-[address] [facility] % Gel 1-17 topically. [facility] 00 [place] diclofenac 2022-[address] [facility] % Gel 1-17 topically. [facility] 00 [place] diclofenac 3-0 Yes [id number] Q.25D Apply [facility] (VOLTAREN) 1-[address] 1 % gel 00:00: 4 (four) [facility] 00 times a l day. diclofenac 3-0 Yes [id number] Q.25D Apply [facility] (VOLTAREN) 1-[address] 1 % gel 00:00: 4 (four) [facility] a 00 times a l day. diclofenac 3-0 Yes [id number] Q.25D Apply [facility] (VOLTAREN) 1-[address] 1 % gel 00:00: 4 (four) [facility] a 00 times a l day. diclofenac 3-0 Yes [id number] Q.25D Apply [facility] (VOLTAREN) 1-[address] 1 % gel 00:00: 4 (four) [facility] a 00 times a l day. diclofenac 2022-0 Yes [id number] Q.25D Apply [facility] (VOLTAREN) 1-[address] 1 % gel 00:00: 4 (four) [facility] a 00 times a l day. diclofenac 3-0 Yes [id number] Q.25D Apply [facility] (VOLTAREN) 1-[address] 1 % gel 00:00: 4 (four) [facility] a 00 times a l day. diclofenac 3-0 Yes [id number] Q.25D Apply [facility] (VOLTAREN) 1-[address] 1 % gel 00:00: 4 (four) [facility] a 00 times a l day. diclofenac 3-0 Yes [id number] Q.25D Apply [facility] (VOLTAREN) 1-[address] 1 % gel 00:00: 4 (four) [facility] a 00 times a l day. spironolact 2022-[address] [facility] one-hydroCH 1-16 Tablet(s) [facility]:00: By Mouth [facility] 00 Daily Center (ALDACTAZID E) 50-50 mg per tablet spironolact 2022-[address] [facility] one-hydroCH 1-16 Tablet(s) [facility] 00:00: By Mouth Me d[facility] e 00 Daily Center (ALDACTAZID E) 50-50 mg per tablet spironolact 2022-[address] [facility]-hydroCH 1-16 Tablet(s) [facility] 00:00: By Mouth Me dical e 00 Daily Center (ALDACTAZID E) 50-50 mg per tablet spironolact 2023-[address] [facility]-hydroCH 1-16 Tablet(s) [facility] 00:00: By Mouth Me dical e 00 Daily Center (ALDACTAZID E) 50-50 mg per tablet spironolact 2023-[address] [facility] one-hydroCH 1-16 Tablet(s) [facility] 00:00: By Mouth Me dical e 00 Daily Center (ALDACTAZID E) 50-50 mg per tablet spironolact 3-[address] [facility] one-hydroCH 1-16 Tablet(s) [facility] 00:00: By Mouth Me dical e 00 Daily Center (ALDACTAZID E) 50-50 mg per tablet spironolact 2023-0 2022- No [facility] one-hydroCH 1-16 04-03 Tablet(s) [facility] 00:00: 00:00 By Mouth M edical e 00 :00 Daily Center (ALDACTAZID E) 50-50 mg per tablet spironolact 3-0 2022- No [facility] one-hydroCH 1-16 04-03 Tablet(s) [facility] 00:00: 00:00 By Mouth M edical e 00 :00 Daily Center (ALDACTAZID E) 50-50 mg per tablet spironolact 2023-0 2022- No [facility] one-hydroCH 1-16 04-03 Tablet(s) [facility] 00:00: 00:00 By Mouth M edical e 00 :00 Daily Center (ALDACTAZID E) 50-50 mg per tablet spironolact 2023-0 2022- No [facility] one-hydroCH 1-16 04-03 Tablet(s) [facility] 00:00: 00:00 By Mouth M edical e 00 :00 Daily Center (ALDACTAZID E) 50-50 mg per tablet spironolact 2023-0 2022- No [facility] one-hydroCH 1-16 04-03 Tablet(s) [facility] 00:00: 00:00 By Mouth M edical e 00 :00 Daily Center (ALDACTAZID E) 50-50 mg per tablet spironolact 2022-0 3- No [facility] one-hydroCH 05-08 Tablet(s) [facility] 00:00: 00:00 By Mouth M edical e 00 :00 Daily Center (ALDACTAZID E) 50-50 mg per tablet triamcinolo 2022-0 Yes [facility] (KENALOG) [facility]: [facility] 0.1 % 00 Center topical ointment triamcinolo 2022-0 Yes [facility] (KENALOG) 00:00: [facility] 0.1 % 00 Center topical ointment triamcinolo 2022-0 Yes Apply [facility] (KENALOG) 00:00: [facility] 0.1 % 00 Center topical ointment triamcinolo 2022-0 Yes Apply [facility] (KENALOG) 00:00: [facility] 0.1 % 00 Center topical ointment triamcinolo 2022-0 Yes Apply [facility] (KENALOG) 00:00: [facility] 0.1 % 00 Center topical ointment triamcinolo 2022-0 Yes Apply [facility] (KENALOG) 00:00: [facility] 0.1 % 00 Center topical ointment triamcinolo 2022-0 Yes Apply [facility] (KENALOG) 00:00: [facility] 0.1 % 00 Center topical ointment triamcinolo 2022-0 Yes Apply [facility] (KENALOG) 00:00: [facility] 0.1 % 00 Center topical ointment triamcinolo 3-0 Yes Apply [facility] (KENALOG) 00:00: [facility] 0.1 % 00 Center topical ointment triamcinolo 2022-0 Yes Apply [facility] (KENALOG) 00:00: [facility] 0.1 % 00 Center topical ointment triamcinolo 2022-0 Yes Apply [facility] (KENALOG) 00:00: [facility] 0.1 % 00 Center topical ointment triamcinolo 2022-0 Yes [facility] (KENALOG) 00:00: [facility] 0.1 % 00 Center topical ointment pantoprazol 2021-04- No 40mg QD Take 40 mg [facility] 2-30 12-[address] (PROTONIX) 11:23: 00:00 daily. [facility] 40 MG EC 43 :00 l tablet hydrALAZINE 2021-04- No 25mg Q8H Take 25 mg [facility] (APRESOLINE 2-30 12-[address] ) 25 MG 11:23: 00:00 every 8 Hospit a tablet 43 :00 (eight) l hours. pantoprazol 2021-04- No 40mg QD Take 40 mg [facility] 2-30 12-[address] (PROTONIX) 11:23: 00:00 daily. [facility] 40 MG EC 43 :00 l tablet hydrALAZINE 2021-04- No 25mg Q8H Take 25 mg [facility] (APRESOLINE 2-30 12-[address] ) 25 MG 11:23: 00:00 every 8 Hospit a tablet 43 :00 (eight) l hours. pantoprazol 2021-04 No 40mg QD Take 40 mg [facility] 2-30 12-[address] (PROTONIX) 11:23: 00:00 daily. [facility] 40 MG EC 43 :00 l tablet hydrALAZINE 2021-04- No 25mg Q8H Take 25 mg [facility] (APRESOLINE 2-30 12-[address] ) 25 MG 11:23: 00:00 every 8 Hospit a tablet 43 :00 (eight) l hours. pantoprazol 2021-04- No 40mg QD Take 40 mg [facility] 2-30 12-[address] (PROTONIX) 11:23: 00:00 daily. [facility] 40 MG EC 43 :00 l tablet hydrALAZINE 2021-04- No 25mg Q8H Take 25 mg [facility] (APRESOLINE 2-30 12-[address] ) 25 MG 11:23: 00:00 every 8 Hospit a tablet 43 :00 (eight) l hours. pantoprazol 2021-04 No 40mg QD Take 40 mg [facility] 2-30 12-[address] (PROTONIX) 11:23: 00:00 daily. [facility] 40 MG EC 43 :00 l tablet hydrALAZINE 2021-04 No 25mg Q8H Take 25 mg [facility] (APRESOLINE 2-30 12-[address] ) 25 MG 11:23: 00:00 every 8 Hospit a tablet 43 :00 (eight) l hours. pantoprazol 2021-04 No 40mg QD Take 40 mg [facility] 2-30 12-[address] (PROTONIX) 11:23: 00:00 daily. [facility] 40 MG EC 43 :00 l tablet hydrALAZINE 2021-04 No 25mg Q8H Take 25 mg [facility] (APRESOLINE 2-30 12-[address] ) 25 MG 11:23: 00:00 every 8 Hospit a tablet 43 :00 (eight) l hours. pantoprazol 2021-04 No 40mg QD Take 40 mg [facility] 2-30 12-[address] (PROTONIX) 11:23: 00:00 daily. [facility] 40 MG EC 43 :00 l tablet hydrALAZINE 2021-04- No 25mg Q8H Take 25 mg [facility] (APRESOLINE 2-30 12-[address] ) 25 MG 11:23: 00:00 every 8 Hospit a tablet 43 :00 (eight) l hours. pantoprazol 2021-04- No 40mg QD Take 40 mg [facility] 2-30 12-[address] (PROTONIX) 11:23: 00:00 daily. [facility] 40 MG EC 43 :00 l tablet hydrALAZINE 2021-04- No 25mg Q8H Take 25 mg [facility] (APRESOLINE 2-30 12-[address] ) 25 MG 11:23: 00:00 every 8 Hospit a tablet 43 :00 (eight) l hours. pantoprazol 2021-04 Yes 40mg QD Take [address] [facility] 2-30 tablet (40 [facility] (PROTONIX) 00:00: mg total) [facility] d[facility] 40 MG 00 by mouth Center tablet in the morning. pantoprazol 2021-04 Yes 40mg QD Take [address] [facility] e 2-30 tablet (40 [facility] (PROTONIX) 00:00: mg total) [facility] d[facility] 40 MG 00 by mouth Center tablet in the morning. pantoprazol 2021-04 Yes 40mg QD Take [address] [facility] e 2-30 tablet (40 [facility] (PROTONIX) 00:00: mg total) Me d[facility] 40 MG 00 by mouth Center tablet in the morning. pantoprazol 2021-04 Yes 40mg QD Take [address] [facility] e 2-30 tablet (40 [facility] (PROTONIX) 00:00: mg total) Me d[facility] 40 MG 00 by mouth Center tablet in the morning. pantoprazol 2021-04 Yes 40mg QD Take [address] [facility] e 2-30 tablet (40 [facility] (PROTONIX) 00:00: mg total) Me d[facility] 40 MG 00 by mouth Center tablet in the morning. pantoprazol 2021-04 Yes 40mg QD Take [address] [facility] e 2-30 tablet (40 [facility] (PROTONIX) 00:00: mg total) Me d[facility] 40 MG 00 by mouth Center tablet in the morning. pantoprazol 2021-04 Yes 40mg QD Take [address] [facility] e 2-30 tablet (40 [facility] (PROTONIX) 00:00: mg total) Me d[facility] 40 MG 00 by mouth Center tablet in the morning. pantoprazol 2021-04 Yes 40mg QD Take [address] [facility] e 2-30 tablet (40 [facility] (PROTONIX) 00:00: mg total) Me d[facility] 40 MG 00 by mouth Center tablet in the morning. pantoprazol 2021-04 Yes 40mg QD Take [address] [facility] e 2-30 tablet (40 [facility] (PROTONIX) 00:00: mg total) Me d[facility] 40 MG 00 by mouth Center tablet in the morning. pantoprazol 2021- Yes 40mg QD Take [address] [facility] e 2-30 tablet (40 [facility] (PROTONIX) 00:00: mg total) Me d[facility] 40 MG 00 by mouth Center tablet in the morning. pantoprazol 2021-04 Yes 40mg QD Take [address] [facility] e 2-30 tablet (40 [facility] (PROTONIX) 00:00: mg total) Me d[facility] 40 MG 00 by mouth Center tablet in the morning. pantoprazol 2021-04 Yes 40mg QD Take [address] [facility] e 2-30 tablet (40 [facility] (PROTONIX) 00:00: mg total) Me d[facility] 40 MG 00 by mouth Center tablet in the morning. pantoprazol 2021-04 Yes 40mg QD Take 1 [facility] 2-30 tablet (40 st (PROTONIX) 00:00: mg total) Ho [facility] 40 MG EC 00 by mouth l tablet daily. hydrALAZINE 2021-04 Yes 25mg [id number] Take 1 [facility] (APRESOLINE 2-30 [id number] tablet (25 st ) 25 MG 00:00: [...] tablet 00 total) by l mouth daily. pantoprazol 2021-04 Yes 40mg QD Take 1 [facility] 2-30 tablet (40 st (PROTONIX) 00:00: mg total) [facility] 40 MG EC 00 by mouth l tablet daily. hydrALAZINE 2021-04 Yes 25mg Q.[id number] Take 1 [facility] (APRESOLINE 2-30 [id number] tablet (25 st ) 25 MG 00:00: [...] tablet 00 total) by l mouth daily. pantoprazol 2021-04 Yes 40mg QD Take 1 [facility] 2-30 tablet (40 st (PROTONIX) 00:00: mg total) [facility] 40 MG EC 00 by mouth l tablet daily. hydrALAZINE 2021-04 Yes 25mg Q.[id number] Take 1 [facility] (APRESOLINE 2-30 [id number] tablet (25 st ) 25 MG 00:00: [...] tablet 00 total) by l mouth daily. pantoprazol 2021-04 Yes 40mg QD Take 1 [facility] 2-30 tablet (40 st (PROTONIX) 00:00: mg total) [facility] 40 MG EC 00 by mouth l tablet daily. hydrALAZINE 2021-04 Yes 25mg Q.[id number] Take 1 [facility] (APRESOLINE 2-30 [id number] tablet (25 st ) 25 MG 00:00: [...] tablet 00 total) by l mouth daily. pantoprazol 2021-04 Yes 40mg QD Take 1 [facility] 2-30 tablet (40 st (PROTONIX) 00:00: mg total) [facility] 40 MG EC 00 by mouth l tablet daily. hydrALAZINE 2021-04 Yes 25mg Q.[id number] Take 1 [facility] (APRESOLINE 2-30 [id number] tablet (25 st ) 25 MG 00:00: [...] tablet 00 total) by l mouth daily. pantoprazol 2021-04 Yes 40mg QD Take 1 [facility] 2-30 tablet (40 st (PROTONIX) 00:00: mg total) [facility] 40 MG EC 00 by mouth l tablet daily. hydrALAZINE 2021-04 Yes 25mg Q.[id number] Take 1 [facility] (APRESOLINE 2-30 [id number] tablet (25 st ) 25 MG 00:00: [...] tablet 00 total) by l mouth daily. pantoprazol 2021-04 Yes 40mg QD Take 1 [facility] 2-30 tablet (40 st (PROTONIX) 00:00: mg total) [facility] 40 MG EC 00 by mouth l tablet daily. hydrALAZINE 2021-04 Yes 25mg Q.[id number] Take 1 [facility] (APRESOLINE 2-30 [id number] tablet (25 st ) 25 MG 00:00: [...] tablet 00 total) by l mouth daily. pantoprazol 2021-04 Yes 40mg QD Take 1 [facility] 2-30 tablet (40 st (PROTONIX) 00:00: mg total) [facility] 40 MG EC 00 by mouth l tablet daily. hydrALAZINE 2021-04 Yes 25mg Q.[id number] Take 1 [facility] (APRESOLINE 2-30 [id number] tablet (25 st ) 25 MG 00:00: [...] 00 total) by l mouth daily. hydroxychlo 2021-04- No 200mg QD Take 1 [facility] (PLAQUENIL) 00:00: 00:00 (200 mg [facility] 200 mg 00 :00 total) by l tablet mouth daily. hydroxychlo 2021-04- No 200mg QD Take 1 [facility] (PLAQUENIL) 00:00: 00:00 (200 mg [facility] 200 mg 00 :00 total) by l tablet mouth daily. hydroxychlo 2021-04- No 200mg QD Take 1 [facility] (PLAQUENIL) 00:00: 00:00 (200 mg [facility] 200 mg 00 :00 total) by l tablet mouth daily. hydroxychlo 2021-04- No 200mg QD Take 1 [facility] (PLAQUENIL) 00:00: 00:00 (200 mg [facility] 200 mg 00 :00 total) by l tablet mouth daily. hydroxychlo 2021-04- No 200mg QD Take 1 [facility] (PLAQUENIL) 00:00: 00:00 (200 mg [facility] 200 mg 00 :00 total) by l tablet mouth daily. hydroxychlo 2021-04- No 200mg QD Take 1 [facility] (PLAQUENIL) 00:00: 00:00 (200 mg [facility] 200 mg 00 :00 total) by l tablet mouth daily. hydroxychlo 2021-04- No 200mg QD Take 1 [facility] (PLAQUENIL) 00:00: 00:00 (200 mg [facility] 200 mg 00 :00 total) by l tablet mouth daily. hydroxychlo 2021-043- No 200mg QD Take 1 [facility] (PLAQUENIL) 00:00: 00:00 (200 mg [facility] 200 mg 00 :00 total) by l tablet mouth daily. ergocalcife 2021-04 Yes [id number] Q30D Take 1 [facility] 2[facility] (VITAMIN 00:00: (50,000 Hospit a D2) 50,000 00 Units l unit total) by capsule mouth every 30 (thirty) days. DOSING DECREASE. ergocalcife 2021-04 Yes [id number] Q30D Take 1 [facility] 2[facility] (VITAMIN 00:00: (50,000 Hospit a D2) 50,000 00 Units l unit total) by capsule mouth every 30 (thirty) days. DOSING DECREASE. ergocalcife 2021-04 Yes [id number] Q30D Take 1 [facility] (VITAMIN 00:00: (50,000 Hospit a D2) 50,000 00 Units l unit total) by capsule mouth every 30 (thirty) days. DOSING DECREASE. ergocalcife 2021-04 Yes [id number] Q30D Take 1 [facility] (VITAMIN 00:00: (50,000 Hospit a D2) 50,000 00 Units l unit total) by capsule mouth every 30 (thirty) days. DOSING DECREASE. ergocalcife 2021-04 Yes [id number] Q30D Take 1 [facility] (VITAMIN 00:00: (50,000 Hospit a D2) 50,000 00 Units l unit total) by capsule mouth every 30 (thirty) days. DOSING DECREASE. ergocalcife 2021-04 Yes [id number] Q30D Take 1 [facility] 2[facility] (VITAMIN 00:00: (50,000 Hospit a D2) 50,000 00 Units l unit total) by capsule mouth every 30 (thirty) days. DOSING DECREASE. ergocalcife 2021-04 Yes [id number] Q30D Take 1 [facility] 2[facility] (VITAMIN 00:00: (50,000 Hospit a D2) 50,000 00 Units l unit total) by capsule mouth every 30 (thirty) days. DOSING DECREASE. ergocalcife 2021-04 Yes [id number] Q30D Take 1 [facility] (VITAMIN 00:00: (50,000 Hospit a D2) 50,000 00 Units l unit total) by capsule mouth every 30 (thirty) days. DOSING DECREASE. hydroxychlo 2021-04- No 200mg QD Take 1 [facility] - [facility]-[address] (PLAQUENIL) 00:00: 00:00 (200 mg [facility] 200 mg 00 :00 total) by l tablet mouth daily. hydroxychlo 2021-04- No 200mg QD Take 1 [facility] - 12-[address] (PLAQUENIL) 00:00: 00:00 (200 mg [facility] 200 mg 00 :00 total) by l tablet mouth daily. hydroxychlo 2021-04- No 200mg QD Take 1 [facility] 05-18 12-[address] ([facility]) 00:00: 00:00 (200 mg [facility] 200 mg 00 :00 total) by l tablet mouth daily. hydroxychlo 2021-04- No 200mg QD Take 1 [facility] 05-18 12-[address] ([facility]) 00:00: 00:00 (200 mg [facility] 200 mg 00 :00 total) by l tablet mouth daily. hydroxychlo 2021-04- No 200mg QD Take 1 [facility] 05-18 12-[address] ([facility]) 00:00: 00:00 (200 mg [facility] 200 mg 00 :00 total) by l tablet mouth daily. hydroxychlo 2021-04- No 200mg QD Take 1 [facility] 05-18 12-[address] ([facility]) 00:00: 00:00 (200 mg [facility] 200 mg 00 :00 total) by l tablet mouth daily. hydroxychlo 2021-04- No 200mg QD Take 1 [facility] - [facility] ([facility]) 00:00: 00:00 (200 mg [facility] 200 mg 00 :00 total) by l tablet mouth daily. hydroxychlo 2021-04- No 200mg QD Take 1 [facility] - [facility] ([facility]) 00:00: 00:00 (200 mg [facility] 200 mg 00 :00 total) by l tablet mouth daily. [email or web address] 2021-04 Yes [id number] 10mg QD Take 1 [facility] ([facility] 1-04 03 tablet (10 st 10 MG 00:00: mg total) [facility] tablet 00 by mouth l nightly. [email or web address] 2021-04 Yes [id number] 10mg QD Take 1 [facility] ([facility]) 1-04 03 tablet (10 st 10 MG 00:00: mg total) [facility] tablet 00 by mouth l nightly. [email or web address] 2021-04 Yes [id number] 10mg QD Take 1 [facility] ([facility]) 1-04 03 tablet (10 st 10 MG 00:00: mg total) [facility] tablet 00 by mouth l nightly. [email or web address] 2021-04 Yes [id number] 10mg QD Take 1 [facility] ([facility]) 1-04 03 tablet (10 st 10 MG 00:00: mg total) [facility] tablet 00 by mouth l nightly. [email or web address] 2021-04 Yes [id number] 10mg QD Take 1 [facility] ([facility]) 1-04 03 tablet (10 st 10 MG 00:00: mg total) [facility] tablet 00 by mouth l nightly. [email or web address] 2021-04 Yes [id number] 10mg QD Take 1 [facility] ([facility]) 1-04 03 tablet (10 st 10 MG 00:00: mg total) [facility] tablet 00 by mouth l nightly. [email or web address] 2021-04 Yes [id number] 10mg QD Take 1 [facility] ([facility]) 1-04 03 tablet (10 st 10 MG 00:00: mg total) [facility] tablet 00 by mouth l nightly. donepeziL 2021-04 Yes [id number] 10mg QD Take 1 [facility] ([facility]PT) 1-04 03 tablet (10 st 10 MG 00:00: [...] mg 24 hr daily. tablet montelukast 2021-04 No 10mg QD Take 1 [facility] (SINGULAIR) 04-24-30 tablet (10 s t 10 mg 00:00: 00:00 mg total) [facility] tablet 00 :00 by mouth l nightly. metoprolol 2021-04 No 25mg QD Take 1 [facility] succinate 04-2430 tablet (25 st XL 00:00: 00:00 mg total) [facility]osp[facility] (TOPROL-XL) 00 :00 by mouth l 25 mg 24 hr daily. tablet montelukast 2021-04 No 10mg QD Take 1 [facility] (SINGULAIR) 04-2430 tablet (10 s t 10 mg 00:00: 00:00 mg total) Hospit [facility] tablet 00 :00 by mouth l nightly. metoprolol 2021-04 No 25mg QD Take 1 [facility] succinate 04-2430 tablet (25 st XL 00:00: 00:00 mg total) [facility]osp[facility] (TOPROL-XL) 00 :00 by mouth l 25 mg 24 hr daily. tablet montelukast 2021-04 No 10mg QD Take 1 [facility] (SINGULAIR) 04-2430 tablet (10 s t 10 mg 00:00: 00:00 mg total) [facility] tablet 00 :00 by mouth l nightly. metoprolol 2021-04 No 25mg QD Take 1 [facility] succinate 04-2430 tablet (25 st XL 00:00: 00:00 mg total) [facility]osp[facility] (TOPROL-XL) 00 :00 by mouth l 25 mg 24 hr daily. tablet montelukast 2021-04 No 10mg QD Take 1 [facility] (SINGULAIR) 04-2430 tablet (10 s t 10 mg 00:00: 00:00 mg total) Hospit [facility] tablet 00 :00 by mouth l nightly. metoprolol 2021-04 No 25mg QD Take 1 [facility] succinate 04-24-30 tablet (25 st XL 00:00: 00:00 mg total) [facility] (TOPROL-XL) 00 :00 by mouth l 25 mg 24 hr daily. tablet montelukast 2021-04 No 10mg QD Take 1 [facility] (SINGULAIR) 04-2430 tablet (10 s t 10 mg 00:00: 00:00 mg total) [facility] tablet 00 :00 by mouth l nightly. metoprolol 2021-04 No 25mg QD Take 1 [facility] succinate 04-2430 tablet (25 st XL 00:00: 00:00 mg total) [facility]ospita (TOPROL-XL) 00 :00 by mouth l 25 mg 24 hr daily. tablet montelukast 2021-04 No 10mg QD Take 1 [facility] (SINGULAIR) 04-2430 tablet (10 s t 10 mg 00:00: 00:00 mg total) Hospit [facility] tablet 00 :00 by mouth l nightly. metoprolol 2021-04 No 25mg QD Take 1 [facility] succinate 04-2430 tablet (25 st XL 00:00: 00:00 mg total) [facility]osp[facility] (TOPROL-XL) 00 :00 by mouth l 25 mg 24 hr daily. tablet montelukast 2021-04 No 10mg QD Take 1 [facility] (SINGULAIR) 04-2430 tablet (10 s t 10 mg 00:00: 00:00 mg total) Hospit [facility] tablet 00 :00 by mouth l nightly. metoprolol 2021-04 No 25mg QD Take 1 [facility] succinate 04-2430 tablet (25 st XL 00:00: 00:00 mg total) [facility]ospita (TOPROL-XL) 00 :00 by mouth l 25 mg 24 hr daily. tablet sertraline 2021-04 No 25mg QD Take 25 mg [facility] (ZOLOFT) 25 0-13 10-[address] MG tablet 14:25: 00:00 daily. [facility] 14 :00 l sertraline 2021-04 No 25mg QD Take 25 mg [facility] (ZOLOFT) 25 0-13 10-[address] MG tablet 14:25: 00:00 daily. [facility] 14 :00 l sertraline 2022-1 2022- No 25mg QD Take 25 mg [facility] (ZOLOFT) 25 0-13 10-[address] MG tablet 14:25: 00:00 daily. [facility] 14 :00 l sertraline 2021-04- No 25mg QD Take 25 mg [facility] (ZOLOFT) 25 0-13 10-[address] MG tablet 14:25: 00:00 daily. [facility] 14 :00 l sertraline 2021-04- No 25mg QD Take 25 mg [facility] (ZOLOFT) 25 0-13 10-[address] MG tablet 14:25: 00:00 daily. [facility] 14 :00 l sertraline 2021-04- No 25mg QD Take 25 mg [facility] (ZOLOFT) 25 0-13 10-[address] MG tablet 14:25: 00:00 daily. [facility] 14 :00 l sertraline 2021-04 No 25mg QD Take 25 mg [facility] (ZOLOFT) 25 0-13 10-[address] MG tablet 14:25: 00:00 daily. [facility] 14 :00 l tiotropium 2021-04- No 1{capsu QD Place 1 [facility] (SPIRIVA) 0-13 10-13 le} capsule st 18 mcg per 14:25: 00:00 into Hospit a inhalation 09 :00 inhaler l capsule and inhale daily. tiotropium 2021-04- No 1{capsu QD Place 1 [facility] (SPIRIVA) 0-13 10-13 le} capsule st 18 mcg per 14:25: 00:00 into Hospit a inhalation 09 :00 inhaler l capsule and inhale daily. tiotropium 2021-04- No 1{capsu QD Place 1 [facility] (SPIRIVA) 0-13 10-13 le} capsule st 18 mcg per 14:25: 00:00 into Hospit a inhalation 09 :00 inhaler l capsule and inhale daily. tiotropium 2021-04- No 1{capsu QD Place 1 [facility] (SPIRIVA) 0-13 10-13 le} capsule st 18 mcg per 14:25: 00:00 into Hospit a inhalation 09 :00 inhaler l capsule and inhale daily. tiotropium 2021-04- No 1{capsu QD Place 1 [facility] (SPIRIVA) 0-13 10-13 le} capsule st 18 mcg per 14:25: 00:00 into Hospit a inhalation 09 :00 inhaler l capsule and inhale daily. tiotropium 2021-04- No 1{capsu QD Place 1 [facility] (SPIRIVA) 0-13 10-13 le} capsule st 18 mcg per 14:25: 00:00 into Hospit a inhalation 09 :00 inhaler l capsule and inhale daily. tiotropium 2021-04- No 1{capsu QD Place 1 [facility] (SPIRIVA) 0-13 10-13 le} capsule st 18 mcg per 14:25: 00:00 into Hospit a inhalation 09 :00 inhaler l capsule and inhale daily. methylPREDN 2021-04 Yes [facility] ISolone [facility] (MEDROL 00:00: Hospita DOSEPAK) 4 00 l mg tablet methylPREDN 2021-1 Yes [facility] ISolone [facility]-04 st (MEDROL 00:00: Hospita DOSEPAK) 4 00 l mg tablet methylPREDN 2021-1 Yes [facility] ISolone [facility] (MEDROL 00:00: Hospita DOSEPAK) 4 00 l mg tablet methylPREDN 2-1 Yes [facility] ISolone [facility] (MEDROL 00:00: Hospita DOSEPAK) 4 00 l mg tablet methylPREDN 2022-1 Yes [facility] ISolone [facility] (MEDROL 00:00: Hospita DOSEPAK) 4 00 l mg tablet methylPREDN 2-1 Yes [facility] ISolone [facility] (MEDROL 00:00: Hospita DOSEPAK) 4 00 l mg tablet methylPREDN 2-1 Yes [facility] ISolone [facility] (MEDROL 00:00: Hospita DOSEPAK) 4 00 l mg tablet methylPREDN 2-1 Yes [facility] ISolone [facility] (MEDROL 00:00: Hospita DOSEPAK) 4 00 l mg tablet methocarbam 2021- No [id number] 500mg Take 1 [facility] 500 mg 01-18 tablet by ity of tablet 00:00: 04:59 mouth in [place] 00 :00 the Medical morning Branch and 1 tablet at noon and 1 tablet in the evening. Do all this for 5 days. TRAZODONE 2022-0 Yes [id number] TAKE 1 [facility]ivers 100 mg 9-21 TABLET ity of tablet 00:00: (100 MG [place] 00 TOTAL) BY Medical MOUTH Branch NIGHTLY. TRAZODONE 2022-0 Yes [id number] TAKE 1 [facility] 100 mg 9-21 TABLET ity of tablet 00:00: (100 MG [place] 00 TOTAL) BY Medical MOUTH Branch NIGHTLY. TRAZODONE 2022-0 Yes [id number] TAKE 1 [facility] 100 mg 9-21 TABLET ity of tablet 00:00: (100 MG [place] 00 TOTAL) BY Medical MOUTH Branch NIGHTLY. TRAZODONE 2022-0 Yes [id number] TAKE 1 [facility] 100 mg 9-21 TABLET ity of tablet 00:00: (100 MG [place] 00 TOTAL) BY Medical MOUTH Branch NIGHTLY. methocarbam 2022-0 Yes 500mg Q.5D Take 1 [facility] oL [facility]-[address] (ROBAXIN) 00:00: (500 mg Hospi ta 500 MG 00 total) by l tablet mouth 2 (two) times a day. HYDROcodone 2022-0 Yes 1{tbl} Q6H Take 1 [facility] -acetaminop 9-[address] [facility] (NORCO) 00:00: mouth Hospi ta 10-325 mg 00 every 6 l per tablet (six) hours as needed. methocarbam 2022-0 Yes 500mg Q.5D Take 1 [facility] oL [facility]-[address] (ROBAXIN) 00:00: (500 mg Hospi ta 500 MG 00 total) by l tablet mouth 2 (two) times a day. HYDROcodone 2022-0 Yes 1{tbl} Q6H Take 1 [facility] -acetaminop 9-[address] [facility] (NORCO) 00:00: mouth Hospi ta 10-325 mg 00 every 6 l per tablet (six) hours as needed. methocarbam 2022-0 Yes 500mg Q.5D Take 1 [facility] oL 9-[address] (ROBAXIN) 00:00: (500 mg Hospi ta 500 MG 00 total) by l tablet mouth 2 (two) times a day. HYDROcodone 2022-0 Yes 1{tbl} Q6H Take 1 [facility] -acetaminop 9-[address] [facility] (NORCO) 00:00: mouth Hospi ta 10-325 mg 00 every 6 l per tablet (six) hours as needed. methocarbam 2022-0 Yes 500mg Q.5D Take 1 [facility] oL 9[facility] (ROBAXIN) 00:00: (500 mg Hospi ta 500 MG 00 total) by l tablet mouth 2 (two) times a day. HYDROcodone 2022-0 Yes 1{tbl} Q6H Take 1 [facility] -acetaminop 9-[address] [facility] (NORCO) 00:00: mouth Hospi ta 10-325 mg 00 every 6 l per tablet (six) hours as needed. methocarbam 2022-0 Yes 500mg Q.5D Take 1 [facility] oL 9-[address] (ROBAXIN) 00:00: (500 mg Hospi ta 500 MG 00 total) by l tablet mouth 2 (two) times a day. HYDROcodone 2022-0 Yes 1{tbl} Q6H Take 1 [facility] -acetaminop 9-[address] [facility] (NORCO) 00:00: mouth Hospi ta 10-325 mg 00 every 6 l per tablet (six) hours as needed. methocarbam 2022-0 Yes 500mg Q.5D Take 1 [facility] oL 9[facility] (ROBAXIN) 00:00: (500 mg Hospi ta 500 MG 00 total) by l tablet mouth 2 (two) times a day. HYDROcodone 2022-0 Yes 1{tbl} Q6H Take 1 [facility] -acetaminop 9-[address] [facility] (NORCO) 00:00: mouth Hospi ta 10-325 mg 00 every 6 l per tablet (six) hours as needed. methocarbam 2022-0 Yes 500mg Q.5D Take 1 [facility] oL 9-[address] (ROBAXIN) 00:00: (500 mg Hospi ta 500 MG 00 total) by l tablet mouth 2 (two) times a day. HYDROcodone 2022-0 Yes 1{tbl} Q6H Take 1 [facility] -acetaminop 9-[address] [facility] (NORCO) 00:00: mouth Hospi ta 10-325 mg 00 every 6 l per tablet (six) hours as needed. methocarbam Yes 500mg Q.5D Take 1 [facility] oL 9-[address] (ROBAXIN) 00:00: (500 mg Hospi ta 500 MG 00 total) by l tablet mouth 2 (two) times a day. HYDROcodone Yes 1{tbl} Q6H Take 1 [facility] -acetaminop 9-[address] [facility] (NORCO) 00:00: mouth Hospi ta 10-325 mg 00 every 6 l per tablet (six) hours as needed. montelukast 2021- No 10mg QD Take 1 [facility] (SINGULAIR) -12 03- tablet (10 s t 10 mg 00:00: 00:00 mg total) Hospit a tablet 00 :00 by mouth l nightly. montelukast 2021- No 10mg QD Take 1 [facility] (SINGULAIR) -12 03- tablet (10 s t 10 mg 00:00: 00:00 mg total) Hospit a tablet 00 :00 by mouth l nightly. montelukast 2021- No 10mg QD Take 1 [facility] (SINGULAIR) -12 03- tablet (10 s t 10 mg 00:00: 00:00 mg total) Hospit a tablet 00 :00 by mouth l nightly. montelukast 2021- No 10mg QD Take 1 [facility] (SINGULAIR) -12 03- tablet (10 s t 10 mg 00:00: 00:00 mg total) Hospit a tablet 00 :00 by mouth l nightly. montelukast 2021- No 10mg QD Take 1 [facility] (SINGULAIR) -12 03- tablet (10 s t 10 mg 00:00: 00:00 mg total) Hospit a tablet 00 :00 by mouth l nightly. montelukast 2021- No 10mg QD Take 1 [facility] (SINGULAIR) 9-12 03- tablet (10 s t 10 mg 00:00: 00:00 mg total) Hospit a tablet 00 :00 by mouth l nightly. montelukast 2021- No 10mg QD Take 1 [facility] (SINGULAIR) - 11-02 tablet (10 s t 10 mg 00:00: 00:00 mg total) Hospit a tablet 00 :00 by mouth l nightly. montelukast 2021- No 10mg QD Take 1 [facility] (SINGULAIR) -12 03-02 tablet (10 s t 10 mg 00:00: 00:00 mg total) Hospit a tablet 00 :00 by mouth l nightly. ergocalcife Yes [id number] TAKE 1 [facility] rol, 9-07 CAPSULE ity of vitamin d2, 00:00: (50,000 Bhavik as (VITAMIN 00 UNITS Medical D2) 1,250 TOTAL) BY Branc h mcg (50,000 MOUTH unit) EVERY 30 capsule (THIRTY) DAYS. DOSING DECREASE. ergocalcife Yes [id number] TAKE 1 [facility] rol, 9-07 CAPSULE ity of vitamin d2, 00:00: (50,000 Bhavik as (VITAMIN 00 UNITS Medical D2) 1,250 TOTAL) BY Branc h mcg (50,000 MOUTH unit) EVERY 30 capsule (THIRTY) DAYS. DOSING DECREASE. ergocalcife Yes [id number] TAKE 1 [facility] rol, 9-07 CAPSULE ity of vitamin d2, 00:00: (50,000 Bhavik as (VITAMIN 00 UNITS Medical D2) 1,250 TOTAL) BY Branc h mcg (50,000 MOUTH unit) EVERY 30 capsule (THIRTY) DAYS. DOSING DECREASE. ergocalcife Yes [id number] TAKE 1 [facility] rol, 9-07 CAPSULE ity of vitamin d2, 00:00: (50,000 Bhavik as (VITAMIN 00 UNITS Medical D2) 1,250 TOTAL) BY Branc h mcg (50,000 MOUTH unit) EVERY 30 capsule (THIRTY) DAYS. DOSING DECREASE. ergocalcife 0 Yes [id number] TAKE 1 [facility] rol, 9-07 CAPSULE ity of vitamin d2, 00:00: (50,000 Bhavik as (VITAMIN 00 UNITS Medical D2) 1,250 TOTAL) BY Branc h mcg (50,000 MOUTH unit) EVERY 30 capsule (THIRTY) DAYS. DOSING DECREASE. ergocalcife Yes [id number] TAKE 1 [facility] rol, 9-07 CAPSULE ity of vitamin d2, 00:00: (50,000 Bhavik as (VITAMIN 00 UNITS Medical D2) 1,250 TOTAL) BY Bran h mcg (50,000 MOUTH unit) EVERY 30 capsule (THIRTY) DAYS. DOSING DECREASE. ferrous Yes [id number] 1{capsu QD Take 1 [facility] fumarate-b1 8-25 le} capsule by st 2-vitamic 00:00: mouth Hospita C-folic 00 daily l acid before (Ferocon) breakfast. 110-0.5 mg capsule ferrous Yes [id number] 1{capsu QD Take 1 [facility] fumarate-b1 8-25 le} capsule by st 2-vitamic 00:00: mouth Hospita C-folic 00 daily l acid before (Ferocon) breakfast. 110-0.5 mg capsule ferrous Yes [id number] 1{capsu QD Take 1 [facility] fumarate-b1 8-25 le} capsule by st -vitamic 00:00: mouth Hospita C-folic 00 daily l acid before (Ferocon) breakfast. 110-0.5 mg capsule ferrous Yes [id number] 1{capsu QD Take 1 [facility] fumarate-b1 8-25 le} capsule by st -vitamic 00:00: mouth [facility]ospita C-folic 00 daily l acid before (Ferocon) breakfast. 110-0.5 mg capsule ferrous Yes [id number] 1{capsu QD Take 1 [facility] fumarate-b1 8-25 le} capsule by st 2-vitamic 00:00: mouth Hospita C-folic 00 daily l acid before (Ferocon) breakfast. 110-0.5 mg capsule ferrous 2021- Yes [id number] 1{capsu QD Take 1 [facility] fumarate-b1 8-25 le} capsule by st 2-vitamic 00:00: mouth [facility]ospita C-folic 00 daily l acid before (Ferocon) breakfast. 110-0.5 mg capsule ferrous 2021-0 Yes [id number] 1{capsu QD Take 1 [facility] fumarate-b1 8-25 le} capsule by st 2-vitamic 00:00: mouth Hospita C-folic 00 daily l acid before (Ferocon) breakfast. 110-0.5 mg capsule ferrous 2021-0 Yes [id number] 1{capsu QD Take 1 [facility] fumarate-b1 8-25 le} capsule by st 2-vitamic 00:00: mouth [facility]ospita C-folic 00 daily l acid before (Ferocon) breakfast. 110-0.5 mg capsule ergocalcife 2021- No [id number] Q30D Take 1 [facility] 8-[facility] 12- capsule st (VITAMIN 00:00: 00:00 (50,000 Hospi ta D2) 50,000 00 :00 Units l unit total) by capsule mouth every 30 (thirty) days. DOSING DECREASE. ergocalcife 2021- No [id number] Q30D Take 1 [facility] 8-25 - capsule st (VITAMIN 00:00: 00:00 (50,000 Hospi ta D2) 50,000 00 :00 Units l unit total) by capsule mouth every 30 (thirty) days. DOSING DECREASE. ergocalcife 2021-2021- No [id number] Q30D Take 1 [facility] 8-25 - capsule st (VITAMIN 00:00: 00:00 (50,000 Hospi ta D2) 50,000 00 :00 Units l unit total) by capsule mouth every 30 (thirty) days. DOSING DECREASE. ergocalcife 2021-0 2021- No [id number] Q30D Take 1 [facility] 8-25 - capsule st (VITAMIN 00:00: 00:00 (50,000 Hospi ta D2) 50,000 00 :00 Units l unit total) by capsule mouth every 30 (thirty) days. DOSING DECREASE. ergocalcife 0 2021- No [id number] Q30D Take 1 [facility] 8-25 12- capsule st (VITAMIN 00:00: 00:00 (50,000 Hospi ta D2) 50,000 00 :00 Units l unit total) by capsule mouth every 30 (thirty) days. DOSING DECREASE. ergocalcife 2021-0 2021- No [id number] Q30D Take 1 [facility] 8-25 12-[address] (VITAMIN 00:00: 00:00 (50,000 Hospi ta D2) 50,000 00 :00 Units l unit total) by capsule mouth every 30 (thirty) days. DOSING DECREASE. ergocalcife 2021- No [id number] Q30D Take 1 [facility] 8-25 12-[address] (VITAMIN 00:00: 00:00 (50,000 Hospi ta D2) 50,000 00 :00 Units l unit total) by capsule mouth every 30 (thirty) days. DOSING DECREASE. ergocalcife 2021- No [id number] Q30D Take 1 [facility] 8-25 -[address] (VITAMIN 00:00: 00:00 (50,000 Hospi ta D2) 50,000 00 :00 Units l unit total) by capsule mouth every 30 (thirty) days. DOSING DECREASE. ergocalcife 2021- No [id number] Q30D Take 1 [facility] 8-24 - capsule st (VITAMIN 00:00: 00:00 (50,000 Hospi ta D2) 50,000 00 :00 Units l unit total) by capsule mouth every 30 (thirty) days. DOSING DECREASE. ferrous No [id number] 1{capsu QD Take 1 [facility] fumarate-b1 12-14- le} capsule by s t 2-vitamic 00:00: 00:00 mouth Hospit a C-folic 00 :00 daily l acid before (Ferocon) breakfast. 110-0.5 mg capsule ergocalcife 2021- No [id number] Q30D Take 1 [facility] 8-24 - capsule st (VITAMIN 00:00: 00:00 (50,000 Hospi ta D2) 50,000 00 :00 Units l unit total) by capsule mouth every 30 (thirty) days. DOSING DECREASE. ferrous No [id number] 1{capsu QD Take 1 [facility] fumarate-b1 -12-15 le} capsule by s t 2-vitamic 00:00: 00:00 mouth Hospit a C-folic 00 :00 daily l acid before (Ferocon) breakfast. 110-0.5 mg capsule ergocalcife 2021- No [id number] Q30D Take 1 [facility] 8-[facility] -[address] (VITAMIN 00:00: 00:00 (50,000 Hospi ta D2) 50,000 00 :00 Units l unit total) by capsule mouth every 30 (thirty) days. DOSING DECREASE. ferrous 2021- No [id number] 1{capsu QD Take 1 [facility] fumarate-b1 12-14 le} capsule by s t 2-vitamic 00:00: 00:00 mouth Hospit a C-folic 00 :00 daily l acid before (Ferocon) breakfast. 110-0.5 mg capsule ergocalcife 2021-0 2021- No [id number] Q30D Take 1 [facility] 12-[address] (VITAMIN 00:00: 00:00 (50,000 Hospi ta D2) 50,000 00 :00 Units l unit total) by capsule mouth every 30 (thirty) days. DOSING DECREASE. ferrous 2021-0 2021- No [id number] 1{capsu QD Take 1 [facility] fumarate-b1 12-14 le} capsule by s t 2-vitamic 00:00: 00:00 mouth Hospit a C-folic 00 :00 daily l acid before (Ferocon) breakfast. 110-0.5 mg capsule ergocalcife 2021-0 2021- No [id number] Q30D Take 1 [facility] 12-[address] (VITAMIN 00:00: 00:00 (50,000 Hospi ta D2) 50,000 00 :00 Units l unit total) by capsule mouth every 30 (thirty) days. DOSING DECREASE. ferrous 2021- No [id number] 1{capsu QD Take 1 [facility] fumarate-b1 12-14 le} capsule by s t 2-vitamic 00:00: 00:00 mouth Hospit a C-folic 00 :00 daily l acid before (Ferocon) breakfast. 110-0.5 mg capsule zolpidem 2022-0 Yes 10mg QD Take 1 [facility] (AMBIEN) 10 8-15 tablet (10 st mg tablet 00:00: mg total) Hos kofi 00 by mouth l nightly as needed. zolpidem 2022-0 Yes 10mg QD Take 1 [facility] (AMBIEN) 10 8-15 tablet (10 st mg tablet 00:00: mg total) [facility]i 00 by mouth l nightly as needed. zolpidem 2022-0 Yes 10mg QD Take 1 [facility] (AMBIEN) 10 8-15 tablet (10 st mg tablet 00:00: mg total) [facility]i 00 by mouth l nightly as needed. zolpidem 2022-0 Yes 10mg QD Take 1 [facility] (AMBIEN) 10 8-15 tablet (10 st mg tablet 00:00: mg total) [facility]i 00 by mouth l nightly as needed. zolpidem 2022-0 Yes 10mg QD Take 1 [facility] (AMBIEN) 10 8-15 tablet (10 st mg tablet 00:00: mg total) [facility]i 00 by mouth l nightly as needed. zolpidem 2022-0 Yes 10mg QD Take 1 [facility] (AMBIEN) 10 8-15 tablet (10 st mg tablet 00:00: mg total) [facility]i 00 by mouth l nightly as needed. zolpidem 2022-0 Yes 10mg QD Take 1 [facility] (AMBIEN) 10 8-15 tablet (10 st mg tablet 00:00: mg total) [facility]i 00 by mouth l nightly as needed. zolpidem 2022-0 Yes 10mg QD Take 1 [facility] (AMBIEN) 10 8-15 tablet (10 st mg tablet 00:00: mg total) [facility]i 00 by mouth l nightly as needed. traZODone 2021-0 2021- No 100mg QD Take 100 [facility] (DESYREL) 11-23 08-[address] 100 MG 10:39: 00:00 mouth [facility]ospita tablet 21 :00 nightly. l metoprolol 2021-0 2021- No 25mg QD Take 25 mg [facility] succinate 11-23- by mouth st XL 10:39: 00:00 daily. Hospita (TOPROL-XL) 21 :00 l 25 mg 24 hr tablet traZODone 2021-0 2021- No 100mg QD Take 100 [facility] (DESYREL) 11-23 08-[address] 100 MG 10:39: 00:00 mouth [facility]ospita tablet 21 :00 nightly. l metoprolol 2022-0 2021- No 25mg QD Take 25 mg [facility] succinate 11-23- by mouth st XL 10:39: 00:00 daily. [facility]ospita (TOPROL-XL) 21 :00 l 25 mg 24 hr tablet traZODone 2021-0 2- No 100mg QD Take 100 [facility] (DESYREL) 8 08-[address] 100 MG 10:39: 00:00 mouth [facility]ospita tablet 21 :00 nightly. l metoprolol 2021-0 2021- No 25mg QD Take 25 mg [facility] succinate 11-23-[address] XL 10:39: 00:00 daily. [facility]ospita (TOPROL-XL) 21 :00 l 25 mg 24 hr tablet traZODone 2021-0 2021- No 100mg QD Take 100 [facility] (DESYREL) 11-23 08-[address] 100 MG 10:39: 00:00 mouth [facility]ospita tablet 21 :00 nightly. l metoprolol 2021-0 2021- No 25mg QD Take 25 mg [facility] succinate 11-23-[address] XL 10:39: 00:00 daily. [facility]ospita (TOPROL-XL) 21 :00 l 25 mg 24 hr tablet traZODone 2021-0 2021- No 100mg QD Take 100 [facility] (DESYREL) 11-23 08-[address] 100 MG 10:39: 00:00 mouth [facility]ospita tablet 21 :00 nightly. l metoprolol 2021-0 2021- No 25mg QD Take 25 mg [facility] succinate 11-23-[address] XL 10:39: 00:00 daily. [facility]ospita (TOPROL-XL) 21 :00 l 25 mg 24 hr tablet traZODone 2022-0 Yes 100mg QD Take 1 [facility] (DESYREL) 8-[address] 100 MG 00:00: (100 mg Hospita tablet 00 total) by l mouth nightly. traZODone 2022-0 Yes 100mg QD Take 1 [facility] (DESYREL) 8-[address] 100 MG 00:00: (100 mg Hospita tablet 00 total) by l mouth nightly. traZODone 2022-0 Yes 100mg QD Take 1 [facility] (DESYREL) 8-[address] 100 MG 00:00: (100 mg Hospita tablet 00 total) by l mouth nightly. traZODone 2022-0 Yes 100mg QD Take 1 [facility] (DESYREL) 8-[address] 100 MG 00:00: (100 mg [facility]ospita tablet 00 total) by l mouth nightly. traZODone 2022-0 Yes 100mg QD Take 1 [facility] (DESYREL) 8-[address] 100 MG 00:00: (100 mg [facility]ospita tablet 00 total) by l mouth nightly. traZODone 2022-0 Yes 100mg QD Take 1 [facility] (DESYREL) 8-[address] 100 MG 00:00: (100 mg [facility]ospita tablet 00 total) by l mouth nightly. traZODone 2-0 Yes 100mg QD Take 1 [facility] (DESYREL) 8-[address] 100 MG 00:00: (100 mg [facility]ospita tablet 00 total) by l mouth nightly. traZODone 2022-0 Yes 100mg QD Take 1 [facility] (DESYREL) 8-[address] 100 MG 00:00: (100 mg [facility]ospita tablet 00 total) by l mouth nightly. metoprolol 2021-2- No 25mg QD Take 1 [facility] dionna succinate 11-23 tablet (25 st XL 00:00: 00:00 mg total) [facility]ospita (TOPROL-XL) 00 :00 by mouth l 25 mg 24 hr daily. tablet metoprolol 2021-0 2021- No 25mg QD Take 1 [facility] d[facility]na succinate 11-23 tablet (25 st XL 00:00: 00:00 mg total) [facility]ospita (TOPROL-XL) 00 :00 by mouth l 25 mg 24 hr daily. tablet metoprolol 0 2- No 25mg QD Take 1 [facility] d[facility]na succinate 11-23 tablet (25 st XL 00:00: 00:00 mg total) [facility]ospita (TOPROL-XL) 00 :00 by mouth l 25 mg 24 hr daily. tablet metoprolol 2021-0 2022- No 25mg QD Take 1 [facility]na succinate 11-23 tablet (25 st XL 00:00: 00:00 mg total) [facility]ospita (TOPROL-XL) 00 :00 by mouth l 25 mg 24 hr daily. tablet metoprolol 2021-0 2022- No 25mg QD Take 1 [facility] dionna succinate 11-23 tablet (25 st XL 00:00: 00:00 mg total) Hospita (TOPROL-XL) 00 :00 by mouth l 25 mg 24 hr daily. tablet metoprolol 2021-0 2022- No 25mg QD Take 1 [facility] d[facility]na succinate 11-23 tablet (25 st XL 00:00: 00:00 mg total) Hospita (TOPROL-XL) 00 :00 by mouth l 25 mg 24 hr daily. tablet metoprolol 2021-0 2022- No 25mg QD Take 1 [facility] dionna succinate 11-23 tablet (25 st XL 00:00: 00:00 mg total) [facility]ospita (TOPROL-XL) 00 :00 by mouth l 25 mg 24 hr daily. tablet metoprolol 2021-0 2021- No 25mg QD Take 1 [facility] d[facility]na succinate 11-23 tablet (25 st XL 00:00: 00:00 mg total) Hospita (TOPROL-XL) 00 :00 by mouth l 25 mg 24 hr daily. tablet hydrOXYchlo 2021-0 202- No 200mg QD Take 1 [facility] ro[facility]INE [facility]-[address] ([place]) 00:00: 04:59 (200 mg [facility] 200 mg 00 :00 total) by l tablet mouth daily for 90 days. hydrOXYchlo 2021-0 2022- No 200mg QD Take 1 [facility]-[address] ([place]) 00:00: 04:59 (200 mg [facility] 200 mg 00 :00 total) by l tablet mouth daily for 90 days. hydrOXYchlo 2021-0 2022- No 200mg QD Take 1 [facility] ([place]) 00:00: 04:59 (200 mg [facility] 200 mg 00 :00 total) by l tablet mouth daily for 90 days. hydrOXYchlo 2-0 2022- No 200mg QD Take 1 [facility]INE 10-27- tablet st ([place]) 00:00: 04:59 (200 mg [facility] 200 mg 00 :00 total) by l tablet mouth daily for 90 days. hydrOXYchlo 2021-0 2022- No 200mg QD Take 1 [facility] ro[facility]INE 10-27-[address] ([place]) 00:00: 04:59 (200 mg [facility] 200 mg 00 :00 total) by l tablet mouth daily for 90 days. hydrOXYchlo 2021- No 200mg QD Take 1 [facility] 10-27- tablet st ([place]) 00:00: 04:59 (200 mg [facility] 200 mg 00 :00 total) by l tablet mouth daily for 90 days. hydrOXYchlo 2021- No 200mg QD Take 1 [facility] 10-27- tablet st ([place]) 00:00: 04:59 (200 mg [facility] 200 mg 00 :00 total) by l tablet mouth daily for 90 days. aspirin 81 Yes [id number] 81mg Take 1 [facility] tablet [facility] tablet 00:00: mouth [place] 00 daily. [facility] aspirin 81 0 Yes [id number] 81mg Take 1 [facility] 6-21 tablet by [facility] tablet 00:00: mouth [place] 00 daily. [facility] aspirin 81 0 Yes [id number] 81mg Take 1 [facility] EC 6-21 tablet by [facility] tablet 00:00: mouth [place] 00 daily. [facility] aspirin 81 0 Yes [id number] 81mg Take 1 [facility] 6-21 tablet by [facility] tablet 00:00: mouth [place] 00 daily. [facility] aspirin 81 0 Yes [id number] 81mg Take 1 [facility] EC 6-21 tablet by [facility] tablet 00:00: mouth [place] 00 daily. [facility] aspirin 81 0 Yes [id number] 81mg Take 1 [facility] EC 6-21 tablet by [facility] tablet 00:00: mouth [place] 00 daily. [facility] aspirin 81 0 Yes [id number] 81mg Take 1 [facility] mg EC 6-21 tablet by [facility] tablet 00:00: mouth [place] 00 daily. [facility] aspirin 81 0 Yes [id number] 81mg Take 1 [facility] mg EC 6-21 tablet by [facility] of tablet 00:00: mouth [place] 00 daily. [facility] metoprolol 2021-0 Yes [id number] TAKE 1 [facility] nivers succinate 6-13 TABLET BY ity o f XL 25 mg 24 00:00: MOUTH 1 [facility] as hr tablet 00 TIME EACH Medic al DAY Branch hydrOXYchlo 2021-0 Yes [id number] 200mg Take 1 [facility] roQUINE 200 6-13 tablet by [facility] of mg tablet 00:00: mouth 2 [place] (two) Medical times Branch daily. metoprolol 2021-0 Yes [id number] TAKE 1 [facility] nivers succinate 6-13 TABLET BY ity o f XL 25 mg 24 00:00: MOUTH 1 [facility] as hr tablet 00 TIME EACH Medic al DAY Branch hydrOXYchlo 2021-0 Yes [id number] 200mg Take 1 [facility] roQUINE 200 6-13 tablet by [facility] of mg tablet 00:00: mouth 2 [place] (two) Medical times Branch daily. metoprolol 2021-0 Yes [id number] TAKE 1 [facility] succinate 6-13 TABLET BY ity o f XL 25 mg 24 00:00: MOUTH 1 [facility] as hr tablet 00 TIME EACH Medic al DAY Branch hydrOXYchlo 2021-0 Yes [id number] 200mg Take 1 [facility] roQUINE 200 6-13 tablet by [facility] of mg tablet 00:00: mouth 2 [place] (two) Medical times Branch daily. metoprolol 2021-0 Yes [id number] TAKE 1 [facility] n[facility] succinate 6-13 TABLET BY ity o f XL 25 mg 24 00:00: MOUTH 1 [facility] as hr tablet 00 TIME EACH Medic al DAY Branch hydrOXYchlo 2021-0 Yes [id number] 200mg Take 1 [facility] roQUINE 200 6-13 tablet by [facility] of mg tablet 00:00: mouth 2 [place] (two) Medical times Branch daily. metoprolol 2021-0 Yes [id number] TAKE 1 [facility] nivers succinate 6-13 TABLET BY ity o f XL 25 mg 24 00:00: MOUTH 1 [facility] as hr tablet 00 TIME EACH Medic al DAY Branch hydrOXYchlo 2021-0 Yes [id number] 200mg Take 1 [facility] roQUINE 200 6-13 tablet by [facility] of mg tablet 00:00: mouth 2 [place] (two) Medical times Branch daily. metoprolol 2021-0 Yes [id number] TAKE 1 [facility] nivers succinate 6-13 TABLET BY ity o f XL 25 mg 24 00:00: MOUTH 1 [facility] as hr tablet 00 TIME EACH Medic al DAY Branch hydrOXYchlo 2021-0 Yes [id number] 200mg Take 1 [facility] roQUINE 200 6-13 tablet by [facility] of mg tablet 00:00: mouth 2 [place] [id number] (two) Medical times Branch daily. metoprolol Yes [id number] TAKE 1 [facility] nivers succinate 6-13 TABLET BY ity o f XL 25 mg 24 00:00: MOUTH 1 [facility] as hr tablet 00 TIME EACH Medic al DAY Branch hydrOXYchlo 2021-0 Yes [id number] 200mg Take 1 [facility] roQUINE 200 6-13 tablet by [facility] of mg tablet 00:00: mouth 2 [place] (two) Medical times Branch daily. metoprolol Yes [id number] TAKE 1 [facility] nivers succinate 6-13 TABLET BY ity o f XL 25 mg 24 00:00: MOUTH 1 [facility] as hr tablet 00 TIME EACH Medic al DAY Branch hydrOXYchlo Yes [id number] 200mg Take 1 [facility] roQUINE 200 6-13 tablet by [facility] of mg tablet 00:00: mouth 2 [place] (two) Medical times Branch daily. simvastatin 2021- No 10mg QD Take 10 mg [facility] (ZOCOR) 10 5-25 05-[address] [facility] tablet 21:24: 00:00 nightly. [facility] 23 :00 l simvastatin 2021- No 10mg QD Take 10 mg [facility] (ZOCOR) 10 5-25 05-[address] MG tablet 21:24: 00:00 nightly. [facility] 23 :00 l simvastatin 2021- No 10mg QD Take 10 mg [facility] (ZOCOR) 10 5-25 05-[address] MG tablet 21:24: 00:00 nightly. [facility] 23 :00 l simvastatin 2021- No 10mg QD Take 10 mg [facility] (ZOCOR) 10 5-25 05-[address] MG tablet 21:24: 00:00 nightly. [facility] 23 :00 l simvastatin 2021- No 10mg QD Take 10 mg [facility] (ZOCOR) 10 5-25 05-[address] MG tablet 21:24: 00:00 nightly. [facility] 23 :00 l allopurinoL 2021- No TAKE 1 [facility] (ZYLOPRIM) 5-25 12-[address] 100 MG 00:00: 00:00 MOUTH [facility] tablet 00 :00 EVERY DAY l simvastatin 0 2021- No TAKE 1 [facility] (ZOCOR) 10 5-25 12-[address] [facility] tablet 00:00: 00:00 MOUTH [facility] 00 :00 EVERY l EVENING allopurinoL 0 2021- No TAKE 1 [facility] (ZYLOPRIM) 5-25 12-[address] 100 MG 00:00: 00:00 MOUTH [facility] tablet 00 :00 EVERY DAY l simvastatin 2021-0 2021- No TAKE 1 [facility] (ZOCOR) 10 5-25 12-[address] MG tablet 00:00: 00:00 MOUTH [facility] a 00 :00 EVERY l EVENING allopurinoL 2021- No TAKE 1 [facility] (ZYLOPRIM) 5-25 12-[address] 100 MG 00:00: 00:00 MOUTH [facility] tablet 00 :00 EVERY DAY l simvastatin 2021-0 2021- No TAKE 1 [facility] (ZOCOR) 10 5-25 12-[address] MG tablet 00:00: 00:00 MOUTH [facility] a 00 :00 EVERY l EVENING allopurinoL 0 2021- No TAKE 1 [facility] (ZYLOPRIM) 5-25 12-[address] 100 MG 00:00: 00:00 MOUTH [facility] tablet 00 :00 EVERY DAY l simvastatin 2021-0 2021- No TAKE 1 [facility] (ZOCOR) 10 5-25 12-[address] MG tablet 00:00: 00:00 MOUTH [facility] a 00 :00 EVERY l EVENING allopurinoL 2021-0 2021- No TAKE 1 [facility] (ZYLOPRIM) 5-25 12-[address] 100 MG 00:00: 00:00 MOUTH [facility] tablet 00 :00 EVERY DAY l simvastatin 2021-0 2021- No TAKE 1 [facility] (ZOCOR) 10 5-25 12-[address] MG tablet 00:00: 00:00 MOUTH Hospit a 00 :00 EVERY l EVENING allopurinoL 2021-0 2021- No TAKE 1 [facility] (ZYLOPRIM) 5-25 12-[address] 100 MG 00:00: 00:00 MOUTH [facility] tablet 00 :00 EVERY DAY l simvastatin 2021-0 2021- No TAKE 1 [facility] (ZOCOR) 10 5-25 12-[address] MG tablet 00:00: 00:00 MOUTH Hospit a 00 :00 EVERY l EVENING allopurinoL 2022-0 2022- No TAKE 1 [facility] (ZYLOPRIM) 5-25 12-[address] 100 MG 00:00: 00:00 MOUTH [facility] tablet 00 :00 EVERY DAY l simvastatin 2022-0 2022- No TAKE 1 [facility] (ZOCOR) 10 5-25 12-[address] MG tablet 00:00: 00:00 MOUTH Hospit a 00 :00 EVERY l EVENING allopurinoL 2022-0 2022- No TAKE 1 [facility] (ZYLOPRIM) 5-25 12-[address] 100 MG 00:00: 00:00 MOUTH [facility] tablet 00 :00 EVERY DAY l simvastatin 2022-0 2022- No TAKE 1 [facility] (ZOCOR) 10 5-25 12-[address] MG tablet 00:00: 00:00 MOUTH Hospit a 00 :00 EVERY l EVENING GABAPENTIN 2022-0 2022- No Take by [facility] ORAL 5-24 05-[address] 07:45: 00:00 [facility]osp[facility] 46 :00 l GABAPENTIN 2022-0 2022- No Take by [facility] ORAL 5-24 05-[address] 07:45: 00:00 [facility]osp[facility] 46 :00 l GABAPENTIN 2022-0 2022- No Take by [facility] ORAL 5-24 05-[address] 07:45: 00:00 [facility]ospita 46 :00 l GABAPENTIN 2022-0 2022- No Take by [facility] ORAL 5-24 05-[address] 07:45: 00:00 [facility]ospita 46 :00 l GABAPENTIN 2022-0 2022- No Take by [facility] ORAL 5-24 05-[address] 07:45: 00:00 [facility]ospita 46 :00 l gabapentin 2022-0 Yes 300mg Q.5D Take 1 [facility] (NEURONTIN) 5-[address] 300 mg 00:00: (300 mg [facility]osp[facility] capsule 00 total) by l mouth 2 (two) times a day. spironolact 2-0 Yes [id number] 50mg QD Take 1 [facility] one 5-24 tablet (50 st (ALDACTONE) 00:00: mg total) [facility] 50 MG 00 by mouth l tablet daily. gabapentin 2022-0 Yes 300mg Q.5D Take 1 [facility] (NEURONTIN) 5-[address] 300 mg 00:00: (300 mg [facility]osp[facility] capsule 00 total) by l mouth 2 (two) times a day. spironolact 2022-0 Yes [id number] 50mg QD Take 1 [facility] one 5-24 tablet (50 st (ALDACTONE) 00:00: mg total) [facility] 50 MG 00 by mouth l tablet daily. gabapentin 2022-0 Yes 300mg Q.5D Take 1 [facility] (NEURONTIN) 5-[address] 300 mg 00:00: (300 mg [facility]osp[facility] capsule 00 total) by l mouth 2 (two) times a day. spironolact 2022-0 Yes [id number] 50mg QD Take 1 [facility] one 5-24 tablet (50 st (ALDACTONE) 00:00: mg total) [facility] 50 MG 00 by mouth l tablet daily. gabapentin 2022-0 Yes 300mg Q.5D Take 1 [facility] (NEURONTIN) 5-[address] 300 mg 00:00: (300 mg [facility]osp[facility] capsule 00 total) by l mouth 2 (two) times a day. spironolact 2022-0 Yes [id number] 50mg QD Take 1 [facility] one 5-24 tablet (50 st (ALDACTONE) 00:00: mg total) [facility] 50 MG 00 by mouth l tablet daily. gabapentin 2022-0 Yes 300mg Q.5D Take 1 [facility] (NEURONTIN) 5-[address] 300 mg 00:00: (300 mg [facility]osp[facility] capsule 00 total) by l mouth 2 (two) times a day. spironolact 2022-0 Yes [id number] 50mg QD Take 1 [facility] one 5-24 tablet (50 st (ALDACTONE) 00:00: mg total) [facility] 50 MG 00 by mouth l tablet daily. gabapentin 2022-0 Yes 300mg Q.5D Take 1 [facility] (NEURONTIN) 5-[address] 300 mg 00:00: (300 mg [facility]osp[facility] capsule 00 total) by l mouth 2 (two) times a day. spironolact 2022-0 Yes [id number] 50mg QD Take 1 [facility] one 5-24 tablet (50 st (ALDACTONE) 00:00: mg total) [facility] 50 MG 00 by mouth l tablet daily. gabapentin 2022-0 Yes 300mg Q.5D Take 1 [facility] (NEURONTIN) 5-[address] 300 mg 00:00: (300 mg [facility]osp[facility] capsule 00 total) by l mouth 2 (two) times a day. spironolact 2022-0 Yes [id number] 50mg QD Take 1 [facility] one 5-24 tablet (50 st (ALDACTONE) 00:00: mg total) [facility] 50 MG 00 by mouth l tablet daily. gabapentin 2022-0 Yes 300mg Q.5D Take 1 [facility] (NEURONTIN) 5-[address] 300 mg 00:00: (300 mg [facility]osp[facility] capsule 00 total) by l mouth 2 (two) times a day. spironolact 2022-0 Yes [id number] 50mg QD Take 1 [facility] one 5-24 tablet (50 st (ALDACTONE) 00:00: mg total) [facility] 50 MG 00 by mouth l tablet daily. cyclobenzap 2021-0 2021- No [id number] 5mg Q.5D Take 1 [facility] rine 5-24 10-13 tablet (5 st (FLEXERIL) 00:00: 00:00 mg total) [facility] 5 mg tablet 00 :00 by mouth 2 l (two) times a day as needed. cyclobenzap 2021-0 2021- No [id number] 5mg Q.5D Take 1 [facility] rine 5-24 10-13 tablet (5 st (FLEXERIL) 00:00: 00:00 mg total) [facility] 5 mg tablet 00 :00 by mouth 2 l (two) times a day as needed. cyclobenzap 2021-0 2021- No [id number] 5mg Q.5D Take 1 [facility] rine 5-24 10-13 tablet (5 st (FLEXERIL) 00:00: 00:00 mg total) [facility] 5 mg tablet 00 :00 by mouth 2 l (two) times a day as needed. cyclobenzap 2021-0 2021- No [id number] 5mg Q.5D Take 1 [facility] 5-24 10-13 tablet (5 st (FLEXERIL) 00:00: 00:00 mg total) [facility] 5 mg tablet 00 :00 by mouth 2 l (two) times a day as needed. cyclobenzap 2021-0 2021- No [id number] 5mg Q.5D Take 1 [facility] 5-24 10-13 tablet (5 st (FLEXERIL) 00:00: 00:00 mg total) [facility] 5 mg tablet 00 :00 by mouth 2 l (two) times a day as needed. cyclobenzap 2021-0 2021- No [id number] 5mg Q.5D Take 1 [facility] 5-24 10-13 tablet (5 st (FLEXERIL) 00:00: 00:00 mg total) [facility] 5 mg tablet 00 :00 by mouth 2 l (two) times a day as needed. cyclobenzap 2021-0 2021- No [id number] 5mg Q.5D Take 1 [facility] 5-24 10-13 tablet (5 st (FLEXERIL) 00:00: 00:00 mg total) [facility] 5 mg tablet 00 :00 by mouth 2 l (two) times a day as needed. ergocalcife 2021-0 2021- No [id number] Q30D Take 1 [facility] 5-24 08-[address] (VITAMIN 00:00: 00:00 (50,000 Hos[facility] ta D2) 50,000 00 :00 Units l unit total) by capsule mouth every 30 (thirty) days. DOSING DECREASE. ergocalcife 2021-0 2021- No [id number] Q30D Take 1 [facility] 5-24 08-[address] (VITAMIN 00:00: 00:00 (50,000 Hospi ta D2) 50,000 00 :00 Units l unit total) by capsule mouth every 30 (thirty) days. DOSING DECREASE. ergocalcife 2-0 2021- No [id number] Q30D Take 1 [facility] 5-24 08-[address] (VITAMIN 00:00: 00:00 (50,000 [facility] ta D2) 50,000 00 :00 Units l unit total) by capsule mouth every 30 (thirty) days. DOSING DECREASE. ergocalcife 2021-0 2- No [id number] Q30D Take 1 [facility] 5-24 08-[address] (VITAMIN 00:00: 00:00 (50,000 [facility] ta D2) 50,000 00 :00 Units l unit total) by capsule mouth every 30 (thirty) days. DOSING DECREASE. ergocalcife 2021- No [id number] Q30D Take 1 [facility]-[address] (VITAMIN 00:00: 00:00 (50,000 Hos[facility] ta D2) 50,000 00 :00 Units l unit total) by capsule mouth every 30 (thirty) days. DOSING DECREASE. nitrofurant 2021- No [id number] 100mg QD Take 1 [facility] oin, 09-[address] macrocrysta 00:00: 04:59 (100 mg [facility] l-monohydra 00 :00 total) by l te, mouth (Macrobid) daily for 100 MG 7 days. capsule nitrofurant 2021- No [id number] 100mg QD Take 1 [facility] oin, 09-[address] macrocrysta 00:00: 04:59 (100 mg [facility] l-monohydra 00 :00 total) by l te, mouth (Macrobid) daily for 100 MG 7 days. capsule nitrofurant 2021- No [id number] 100mg QD Take 1 [facility], 09-[address] macrocrysta 00:00: 04:59 (100 mg [facility] l-monohydra 00 :00 total) by l te, mouth (Macrobid) daily for 100 MG 7 days. capsule nitrofurant 2021- No [id number] 100mg QD Take 1 [facility], 09-[address] macrocrysta 00:00: 04:59 (100 mg [facility] l-monohydra 00 :00 total) by l te, mouth (Macrobid) daily for 100 MG 7 days. capsule nitrofurant 2021- No [id number] 100mg QD Take 1 [facility], 09-[address] macrocrysta 00:00: 04:59 (100 mg [facility] l-monohydra 00 :00 total) by l te, mouth (Macrobid) daily for 100 MG 7 days. capsule ergocalcife 2021-0 2021- No [id number] Q7D Take [facility] 5- 05-19 50,000 [address] (ERGOCALCIF 11:35: 00:00 Units by H [facility] CARLEE) 36 :00 mouth once l 50,000 unit a week. capsule cyclobenzap 2021-0 2- No 5mg Q.5D Take 5 mg [facility] 5- 05-[address] (FLEXERIL) 11:35: 00:00 (two) Hospi ta 5 mg tablet 36 :00 times a l day. nystatin 2021-0 2022- No 1{appli Q.5D Apply 1 [facility] (MYCOSTATIN 5-19 05-19 cation} applicatio st ) 100,000 11:35: 00:00 n Hospita unit/gram 36 :00 topically l powder 2 (two) times a day. 60 grams two times day to buttock area for skin breakdown ergocalcife 2021-0 2- No [id number] Q7D Take [facility] 5-08 09- 50,000 st (ERGOCALCIF 11:35: 00:00 Units by H [facility] CARLEE) 36 :00 mouth once l 50,000 unit a week. capsule cyclobenzap 2021-0 2021- No 5mg Q.5D Take 5 mg [facility] 5-08 09-[address] (FLEXERIL) 11:35: 00:00 (two) Hospi ta 5 mg tablet 36 :00 times a l day. nystatin 2021-0 2021- No 1{appli Q.5D Apply 1 [facility] (MYCOSTATIN 5-19 05-19 cation} applicatio st ) 100,000 11:35: 00:00 n [facility]ospita unit/gram 36 :00 topically l powder 2 (two) times a day. 60 grams two times day to buttock area for skin breakdown ergocalcife 2-0 2022- No [id number] Q7D Take [facility] 5-19 05-19 50,[address] (ERGOCALCIF 11:35: 00:00 Units by H [facility] CARLEE) 36 :00 mouth once l 50,000 unit a week. capsule cyclobenzap 2021-0 2022- No 5mg Q.5D Take 5 mg [facility] 5-19 05-[address] (FLEXERIL) 11:35: 00:00 (two) Hospi [facility] 5 mg tablet 36 :00 times a l day. nystatin 2021-0 2- No 1{appli Q.5D Apply 1 [facility] (MYCOSTATIN 5-19 05-19 cation} applicatio st ) 100,000 11:35: 00:00 n [facility]ospita unit/gram 36 :00 topically l powder 2 (two) times a day. 60 grams two times day to buttock area for skin breakdown ergocalcife 2021-0 2- No [id number] Q7D Take [facility] 5- 05-19 50,000 st (ERGOCALCIF 11:35: 00:00 Units by H [facility] CARLEE) 36 :00 mouth once l 50,000 unit a week. capsule cyclobenzap 2021-0 2- No 5mg Q.5D Take 5 mg [facility] 5-19 05-[address] (FLEXERIL) 11:35: 00:00 (two) Hospi [facility] 5 mg tablet 36 :00 times a l day. nystatin 2021-0 2021- No 1{appli Q.5D Apply 1 [facility] (MYCOSTATIN 5-19 05-19 cation} applicatio st ) 100,000 11:35: 00:00 n [facility]ospita unit/gram 36 :00 topically l powder 2 (two) times a day. 60 grams two times day to buttock area for skin breakdown ergocalcife 2021-0 2022- No [id number] Q7D Take [facility] 5-19 05-19 50,000 st (ERGOCALCIF 11:35: 00:00 Units by H [facility] CARLEE) 36 :00 mouth once l 50,000 unit a week. capsule cyclobenzap 2021-0 2022- No 5mg Q.5D Take 5 mg [facility] 5-19 05-[address] (FLEXERIL) 11:35: 00:00 (two) Hospi ta 5 mg tablet 36 :00 times a l day. nystatin 2021-0 202- No 1{appli Q.5D Apply 1 [facility] (MYCOSTATIN 5- 05-19 cation} applicatio st ) 100,000 11:35: 00:00 n Hospita unit/gram 36 :00 topically l powder 2 (two) times a day. 60 grams two times day to buttock area for skin breakdown tiotropium 2021- No 1{capsu QD Place 1 [facility] (SPIRIVA) 5 05-19 le} capsule st 18 mcg per 11:30: 00:00 into Hospit a inhalation 28 :00 inhaler l capsule and inhale once daily. tiotropium 2021- No 1{capsu QD Place 1 [facility] (SPIRIVA) 5- 05-19 le} capsule st 18 mcg per 11:30: 00:00 into Hospit a inhalation 28 :00 inhaler l capsule and inhale once daily. tiotropium 2021- No 1{capsu QD Place 1 [facility] (SPIRIVA) 5- 05-19 le} capsule st 18 mcg per 11:30: 00:00 into Hospit a inhalation 28 :00 inhaler l capsule and inhale once daily. tiotropium 2021- No 1{capsu QD Place 1 [facility] (SPIRIVA) 5- 05-19 le} capsule st 18 mcg per 11:30: 00:00 into Hospit a inhalation 28 :00 inhaler l capsule and inhale once daily. tiotropium 2021- No 1{capsu QD Place 1 [facility] (SPIRIVA) 5 05-19 le} capsule st 18 mcg per 11:30: 00:00 into Hospit a inhalation 28 :00 inhaler l capsule and inhale once daily. nicotine 2021-2021- No Q2H every 2 Metho di polacrilex 5- 05-19 (two) st (NICORETTE) 11:30: 00:00 hours. [facility] 4 MG gum 14 :00 l nicotine 2021-2021- No Q2H every 2 Metho di polacrilex 5- 05-19 (two) st (NICORETTE) 11:30: 00:00 hours. [facility] 4 MG gum 14 :00 l nicotine 2021-2021- No Q2H every 2 Metho di polacrilex -08 09- (two) st (NICORETTE) 11:30: 00:00 hours. [facility] 4 MG gum 14 :00 l nicotine 2021-0 2021- No Q2H every 2 Metho di polacrilex -08 09-19 (two) st (NICORETTE) 11:30: 00:00 hours. [facility] 4 MG gum 14 :00 l nicotine 2021-0 2021- No Q2H every 2 Metho di polacrilex -08 09-19 (two) st (NICORETTE) 11:30: 00:00 hours. [facility] 4 MG gum 14 :00 l montelukast 2021-0 2021- No 10mg QD Take 10 mg [facility] (SINGULAIR) 09-08- by mouth st 10 mg 11:30: 00:00 every [facility]ospita tablet 11 :00 morning. l montelukast 2021-2021- No 10mg QD Take 10 mg [facility] (SINGULAIR) 09-[address] 10 mg 11:30: 00:00 every [facility]osp[facility] tablet 11 :00 morning. l montelukast 2021-0 2021- No 10mg QD Take 10 mg [facility] (SINGULAIR) 09-08- by mouth st 10 mg 11:30: 00:00 every [facility]ospita tablet 11 :00 morning. l montelukast 2021-0 2021- No 10mg QD Take 10 mg [facility] (SINGULAIR) 09-08- by mouth st 10 mg 11:30: 00:00 every [facility]ospita tablet 11 :00 morning. l montelukast 2021-0 2021- No 10mg QD Take 10 mg [facility] (SINGULAIR) 09-08-[address] 10 mg 11:30: 00:00 every [facility]ospita tablet 11 :00 morning. l blood-gluco 2021-2021- No OneTouch M [facility] se meter 09-08- Ultra2 st (OneTouch 11:29: 00:00 Meter kit [facility] Ultra2 31 :00 l Meter) kit blood-gluco 2021- No OneTouch M ethodi se meter 09-08- Ultra2 st (OneTouch 11:29: 00:00 Meter kit [facility] Ultra2 31 :00 l Meter) kit blood-gluco 2021- No OneTouch M ethodi se meter 5-[address] (OneTouch 11:29: 00:00 Meter kit [facility] Ultra2 31 :00 l Meter) kit blood-gluco 2021- No OneTouch M ethodi se meter 5-[address] (OneTouch 11:29: 00:00 Meter kit [facility] Ultra2 31 :00 l Meter) kit blood-gluco 2021- No OneTouch M ethodi se meter 5- Ultra2 st (OneTouch 11:29: 00:00 Meter kit [facility] Ultra2 31 :00 l Meter) kit bimatoprost 2021- No 1[drp] Q.5D Administer [facility] (LUMIGAN) 09-[address] 0.01 % 11:29: 00:00 both eyes [facility]pi ta ophthalmic 12 :00 2 (two) l drops times a day. bimatoprost 2021- No 1[drp] Q.5D Administer [facility] (LUMIGAN) 09-08- [address] 0.01 % 11:29: 00:00 both eyes [facility] ta ophthalmic 12 :00 2 (two) l drops times a day. bimatoprost 2021- No 1[drp] Q.5D Administer [facility] (LUMIGAN) 09-[address] 0.01 % 11:29: 00:00 both eyes [facility] ophthalmic 12 :00 2 (two) l drops times a day. bimatoprost 2021- No 1[drp] Q.5D Administer [facility] (LUMIGAN) 09-08- [address] 0.01 % 11:29: 00:00 both eyes [facility] ophthalmic 12 :00 2 (two) l drops times a day. bimatoprost 2021-2021- No 1[drp] Q.5D Administer [facility] (LUMIGAN) 09-08- [address] 0.01 % 11:29: 00:00 both eyes [facility] ophthalmic 12 :00 2 (two) l drops times a day. apixaban 2021- No 5mg Q.5D Take 5 mg [facility] (ELIQUIS) 5 5-19 05-19 by mouth 2 s t mg tablet 11:29: 00:00 (two) Hospit a 04 :00 times a l day. apixaban 2021- No 5mg Q.5D Take 5 mg [facility] (ELIQUIS) 5 5-19 05-19 by mouth 2 s t mg tablet 11:29: 00:00 (two) Hospit a 04 :00 times a l day. apixaban 2021- No 5mg Q.5D Take 5 mg [facility] (ELIQUIS) 5 5-19 05-19 by mouth 2 s t mg tablet 11:29: 00:00 (two) Hospit a 04 :00 times a l day. apixaban 2021- No 5mg Q.5D Take 5 mg [facility] (ELIQUIS) 5 5-19 05-19 by mouth 2 s t mg tablet 11:29: 00:00 (two) Hospit a 04 :00 times a l day. apixaban 2021- No 5mg Q.5D Take 5 mg [facility] (ELIQUIS) 5 5-19 05-19 by mouth 2 s t mg tablet 11:: 00:00 (two) Hospit a 04 :00 times a l day. albuterol 2021- No 2{puff} Q6H Inhale 2 [facility] (PROAIR 5-19 05-[address] HFA,PROVENT 11:28: 00:00 every 6 Ho [facility] [place] 34 :00 (six) l HFA,VENTOLI hours as N HFA) 90 needed for mcg/actuati wheezing. on inhaler albuterol 2021- No 2{puff} Q6H Inhale 2 [facility] (PROAIR 5-19 05-[address] HFA,PROVENT 11:28: 00:00 every 6 [facility] [place] :00 (six) l HFA,VENTOLI hours as N HFA) 90 needed for mcg/actuati wheezing. on inhaler albuterol No 2{puff} Q6H Inhale 2 [facility] (PROAIR 5-19 05-[address] HFA,PROVENT 11:28: 00:00 every 6 [facility] [place] :00 (six) l HFA,VENTOLI hours as N HFA) 90 needed for mcg/actuati wheezing. on inhaler albuterol No 2{puff} Q6H Inhale 2 [facility] (PROAIR 5-19 05-[address] HFA,PROVENT 11:28: 00:00 every 6 [facility] [place] :00 (six) l HFA,VENTOLI hours as N HFA) 90 needed for mcg/actuati wheezing. on inhaler albuterol No 2{puff} Q6H Inhale 2 [facility] (PROAIR 5-19 05-[address] HFA,PROVENT 11:28: 00:00 every 6 [facility] [place] :00 (six) l HFA,VENTOLI hours as N HFA) 90 needed for mcg/actuati wheezing. on inhaler azelastine Yes [id number] 1{spray Q.5D 1 spray [facility] (ASTELIN) 5-19 } into each st 137 mcg 00:00: nostril 2 Hospi ta (0.1 %) 00 (two) l nasal spray times a day. Use in each nostril as directed isosorbide Yes [id number] 60mg QD Take 1 [facility] mononitrate 5-19 tablet (60 st (IMDUR) 60 00:00: mg total) [facility] MG 24 hr 00 by mouth l tablet daily. azelastine Yes [id number] 1{spray Q.5D 1 spray [facility] (ASTELIN) 5-19 } into each st 137 mcg 00:00: nostril 2 Hos[facility] ta (0.1 %) 00 (two) l nasal spray times a day. Use in each nostril as directed isosorbide Yes [id number] 60mg QD Take 1 [facility] mononitrate 5-19 tablet (60 st (IMDUR) 60 00:00: mg total) [facility] MG 24 hr 00 by mouth l tablet daily. azelastine 2022-0 Yes [id number] 1{spray Q.5D 1 spray [facility] (ASTELIN) 5-19 } into each st 137 mcg 00:00: nostril 2 Hos[facility] ta (0.1 %) 00 (two) l nasal spray times a day. Use in each nostril as directed isosorbide 2022-0 Yes [id number] 60mg QD Take 1 [facility] mononitrate 5-19 tablet (60 st (IMDUR) 60 00:00: mg total) [facility] MG 24 hr 00 by mouth l tablet daily. azelastine 2022-0 Yes [id number] 1{spray Q.5D 1 spray [facility] (ASTELIN) 5-19 } into each st 137 mcg 00:00: nostril 2 Hos[facility] ta (0.1 %) 00 (two) l nasal spray times a day. Use in each nostril as directed isosorbide 2022-0 Yes [id number] 60mg QD Take 1 [facility] mononitrate 5-19 tablet (60 st (IMDUR) 60 00:00: mg total) [facility] MG 24 hr 00 by mouth l tablet daily. azelastine 2022-0 Yes [id number] 1{spray Q.5D 1 spray [facility] (ASTELIN) 5-19 } into each st 137 mcg 00:00: nostril 2 [facility] (0.1 %) 00 (two) l nasal spray times a day. Use in each nostril as directed isosorbide 2022-0 Yes [id number] 60mg QD Take 1 [facility] mononitrate 5-19 tablet (60 st (IMDUR) 60 00:00: mg total) [facility] MG 24 hr 00 by mouth l tablet daily. azelastine 2022-0 Yes [id number] 1{spray Q.5D 1 spray [facility] (ASTELIN) 5-19 } into each st 137 mcg 00:00: nostril 2 [facility] (0.1 %) 00 (two) l nasal spray times a day. Use in each nostril as directed isosorbide 2022-0 Yes [id number] 60mg QD Take 1 [facility] mononitrate 5-19 tablet (60 st (IMDUR) 60 00:00: mg total) [facility] MG 24 hr 00 by mouth l tablet daily. azelastine 2021-0 Yes [id number] 1{spray Q.5D 1 spray [facility] (ASTELIN) 5-19 } into each st 137 mcg 00:00: nostril 2 [facility] (0.1 %) 00 (two) l nasal spray times a day. Use in each nostril as directed isosorbide 2-0 Yes [id number] 60mg QD Take 1 [facility] mononitrate 5-19 tablet (60 st (IMDUR) 60 00:00: mg total) [facility] MG 24 hr 00 by mouth l tablet daily. azelastine 2021-0 Yes [id number] 1{spray Q.5D 1 spray [facility] (ASTELIN) 5-19 } into each st 137 mcg 00:00: nostril 2 [facility] (0.1 %) 00 (two) l nasal spray times a day. Use in each nostril as directed isosorbide 2021-0 Yes [id number] 60mg QD Take 1 [facility] mononitrate 5-19 tablet (60 st (IMDUR) 60 00:00: mg total) [facility] MG 24 hr 00 by mouth l tablet daily. [email or web address] 2021- No [id number] 10mg QD Take 1 [facility] (ARICEPT) 09-08 03 tablet (10 st 10 MG 00:00: 00:00 mg total) [facility] :00 by mouth l nightly. [email or web address] 2021- No [id number] 10mg QD Take 1 [facility] (ARICEPT) 09-08 03 tablet (10 st 10 MG 00:00: 00:00 mg total) [facility] 00 :00 by mouth l nightly. [email or web address] 2021- No [id number] 10mg QD Take 1 [facility] (ARICEPT) 09-08 03 tablet (10 st 10 MG 00:00: 00:00 mg total) [facility] tablet 00 :00 by mouth l nightly. [email or web address] 2021- No [id number] 10mg QD Take 1 [facility] (ARICEPT) 09-08 03 tablet (10 st 10 MG 00:00: 00:00 mg total) [facility] tablet 00 :00 by mouth l nightly. [email or web address] No [id number] 10mg QD Take 1 [facility] (ARICEPT) 09-08 03 tablet (10 st 10 MG 00:00: 00:00 mg total) [facility] a tablet 00 :00 by mouth l nightly. donepeziL No [id number] 10mg QD Take 1 [facility] (ARICEPT) 09-08 03 tablet (10 st 10 MG 00:00: 00:00 mg total) [facility] a tablet 00 :00 by mouth l nightly. donepeziL No [id number] 10mg QD Take 1 [facility] (ARICEPT) 09-08 03 tablet (10 st 10 MG 00:00: 00:00 mg total) Hospit a tablet 00 :00 by mouth l nightly. donepeziL 2021- No [id number] 10mg QD Take 1 [facility] (ARICEPT) 09-08 03 tablet (10 st 10 MG 00:00: 00:00 mg total) Hospit a tablet 00 :00 by mouth l nightly. nystatin 2021- No [id number] Q.5D Apply 1 [facility] (MYCOSTATIN 09-08 applicatio s t ) 100,000 00:00: 00:00 n [facility]osp[facility] unit/gram 00 :00 topically l powder 2 (two) times a day. Apply to affected skin benzonatate 2021- No [id number] 100mg Q.5D Take 1 [facility] (TESSALON) 09-[address] 100 MG 00:00: 00:00 (100 mg Hospita capsule 00 :00 total) by l mouth 2 (two) times a day as needed for cough. nystatin 2021- No [id number] Q.5D Apply 1 [facility] (MYCOSTATIN 09-08 applicatio s t ) 100,000 00:00: 00:00 n [facility]ospita unit/gram 00 :00 topically l powder 2 (two) times a day. Apply to affected skin benzonatate 2021- No [id number] 100mg Q.5D Take 1 [facility] (TESSALON) 5-19 10-[address] 100 MG 00:00: 00:00 (100 mg Hospita capsule 00 :00 total) by l mouth 2 (two) times a day as needed for cough. nystatin 2021- No [id number] 1{appli Q.5D Apply 1 [facility] (MYCOSTATIN 5-19 10-13 cation} applicatio st ) 100,000 00:00: 00:00 n [facility]osp[facility] unit/gram 00 :00 topically l powder 2 (two) times a day. Apply to affected skin benzonatate No [id number] 100mg Q.5D Take 1 [facility] (TESSALON) 5-19 10-[address] 100 MG 00:00: 00:00 (100 mg Hospita capsule 00 :00 total) by l mouth 2 (two) times a day as needed for cough. nystatin No [id number] 1{appli Q.5D Apply 1 [facility] (MYCOSTATIN 5-19 10-13 cation} applicatio st ) 100,000 00:00: 00:00 n [facility]osp[facility] unit/gram 00 :00 topically l powder 2 (two) times a day. Apply to affected skin benzonatate No [id number] 100mg Q.5D Take 1 [facility] (TESSALON) 5-19 10-[address] 100 MG 00:00: 00:00 (100 mg [facility]ospita capsule 00 :00 total) by l mouth 2 (two) times a day as needed for cough. nystatin No [id number] 1{appli Q.5D Apply 1 [facility] (MYCOSTATIN 5-19 10-13 cation} applicatio st ) 100,000 00:00: 00:00 n [facility]ospita unit/gram 00 :00 topically l powder 2 (two) times a day. Apply to affected skin benzonatate No [id number] 100mg Q.5D Take 1 [facility] (TESSALON) 5-19 10-[address] 100 MG 00:00: 00:00 (100 mg [facility]ospita capsule 00 :00 total) by l mouth 2 (two) times a day as needed for cough. nystatin No [id number] 1{appli Q.5D Apply 1 [facility] (MYCOSTATIN 5-19 10-13 cation} applicatio st ) 100,000 00:00: 00:00 n [facility]ospita unit/gram 00 :00 topically l powder 2 (two) times a day. Apply to affected skin benzonatate No [id number] 100mg Q.5D Take 1 [facility] (TESSALON) 5-19 10-[address] 100 MG 00:00: 00:00 (100 mg [facility]ospita capsule 00 :00 total) by l mouth 2 (two) times a day as needed for cough. nystatin No [id number] 1{appli Q.5D Apply 1 [facility] (MYCOSTATIN 5-19 10-13 cation} applicatio st ) 100,000 00:00: 00:00 n Hospita unit/gram 00 :00 topically l powder 2 (two) times a day. Apply to affected skin benzonatate No [id number] 100mg Q.5D Take 1 [facility] (TESSALON) 5-19 10-[address] 100 MG 00:00: 00:00 (100 mg Hospita capsule 00 :00 total) by l mouth 2 (two) times a day as needed for cough. ferrous [id number] TAKE 1 [facility] sulfate 5-19 08-[address] (iron) 325 00:00: 00:00 MOUTH 2 [facility] (65 FE) MG 00 :00 TIMES l tablet DAILY WITH FOOD ferrous No [id number] TAKE 1 [facility] sulfate 5-19 08-[address] (iron) 325 00:00: 00:00 MOUTH 2 [facility] (65 FE) MG 00 :00 TIMES l tablet DAILY WITH FOOD ferrous No [id number] TAKE 1 [facility] sulfate 5-19 08-[address] (iron) 325 00:00: 00:00 MOUTH 2 [facility] (65 FE) MG 00 :00 TIMES l tablet DAILY WITH FOOD ferrous No [id number] TAKE 1 [facility] sulfate 5-19 08-[address] (iron) 325 00:00: 00:00 MOUTH 2 [facility] (65 FE) MG 00 :00 TIMES l tablet DAILY WITH FOOD ferrous 2021- No [id number] TAKE 1 [facility] sulfate 09-[address] (iron) 325 00:00: 00:00 MOUTH 2 [facility] (65 FE) MG 00 :00 TIMES l tablet DAILY WITH FOOD cyclobenzap 2021- No [id number] 5mg Q.5D Take 1 [facility] 09-0824 tablet (5 st (FLEXERIL) 00:00: 00:00 mg total) H ospita 5 mg tablet 00 :00 by mouth 2 l (two) times a day. ergocalcife 2021- No [id number] Q7D Take 1 [facility]-[address] (VITAMIN 00:00: 00:00 (50,000 Hospi ta D2) 50,000 00 :00 Units l unit total) by capsule mouth once a week. febuxostat 2021- No [id number] 80mg QD Take 1 [facility] (ULORIC) 80 09-08 tablet (80 s t mg tablet 00:00: 00:00 mg total) Ho spita 00 :00 by mouth l daily. spironolact 2021- No [id number] 50mg QD Take 1 [facility] one 09-08 tablet (50 st (ALDACTONE) 00:00: 00:00 mg total) Hospita 50 MG 00 :00 by mouth l tablet daily. doxycycline 2021- No [id number] 100mg Q.5D Take 1 [facility] (VIBRAMYCIN 09-[address] ) 100 MG 00:00: 00:00 (100 mg [facility] ta capsule 00 :00 total) by l mouth 2 (two) times a day for 10 days. cyclobenzap 2021- No [id number] 5mg Q.5D Take 1 [facility] 09-08-24 tablet (5 st (FLEXERIL) 00:00: 00:00 mg total) [facility]spita 5 mg tablet 00 :00 by mouth 2 l (two) times a day. ergocalcife 2021- No [id number] Q7D Take 1 [facility] 5-[facility]-[address] (VITAMIN 00:00: 00:00 (50,000 [facility] ta D2) 50,000 00 :00 Units l unit total) by capsule mouth once a week. febuxostat 2021- No [id number] 80mg QD Take 1 [facility] (ULORIC) 80 5-19 05-24 tablet (80 s t mg tablet 00:00: 00:00 mg total) Ho spita 00 :00 by mouth l daily. spironolact 2021- No [id number] 50mg QD Take 1 [facility] one 5-19 05-24 tablet (50 st (ALDACTONE) 00:00: 00:00 mg total) Hospita 50 MG 00 :00 by mouth l tablet daily. doxycycline 2021- No [id number] 100mg Q.5D Take 1 [facility] (VIBRAMYCIN 5-19 05-[address] ) 100 MG 00:00: 00:00 (100 mg Hospi ta capsule 00 :00 total) by l mouth 2 (two) times a day for 10 days. cyclobenzap 2021- No [id number] 5mg Q.5D Take 1 [facility] 5-19 05-24 tablet (5 st (FLEXERIL) 00:00: 00:00 mg total) H [facility]spita 5 mg tablet 00 :00 by mouth 2 l (two) times a day. ergocalcife 2021- No [id number] Q7D Take 1 [facility] 5-[facility] 05-[address] (VITAMIN 00:00: 00:00 (50,000 [facility] ta D2) 50,000 00 :00 Units l unit total) by capsule mouth once a week. febuxostat 2021- No [id number] 80mg QD Take 1 [facility] (ULORIC) 80 5-19 05-24 tablet (80 s t mg tablet 00:00: 00:00 mg total) Ho spita 00 :00 by mouth l daily. spironolact 2021- No [id number] 50mg QD Take 1 [facility] one 5-19 05-24 tablet (50 st (ALDACTONE) 00:00: 00:00 mg total) Hospita 50 MG 00 :00 by mouth l tablet daily. doxycycline 2021- No [id number] 100mg Q.5D Take 1 [facility] (VIBRAMYCIN 5-19 05-[address] ) 100 MG 00:00: 00:00 (100 mg Hos[facility] ta capsule 00 :00 total) by l mouth 2 (two) times a day for 10 days. cyclobenzap 2021- No [id number] 5mg Q.5D Take 1 [facility] 5-08 09-24 tablet (5 st (FLEXERIL) 00:00: 00:00 mg total) H [facility]ita 5 mg tablet 00 :00 by mouth 2 l (two) times a day. ergocalcife 2021- No [id number] Q7D Take 1 [facility] -08 [facility]-[address] (VITAMIN 00:00: 00:00 (50,000 [facility] ta D2) 50,000 00 :00 Units l unit total) by capsule mouth once a week. febuxostat 2021- No [id number] 80mg QD Take 1 [facility] (ULORIC) 80 09-08-24 tablet (80 s t mg tablet 00:00: 00:00 mg total) Ho spita 00 :00 by mouth l daily. spironolact 2021- No [id number] 50mg QD Take 1 [facility] one 5-08 09-24 tablet (50 st (ALDACTONE) 00:00: 00:00 mg total) Hospita 50 MG 00 :00 by mouth l tablet daily. doxycycline 2021- No [id number] 100mg Q.5D Take 1 [facility] (VIBRAMYCIN 5-19 05-[address] ) 100 MG 00:00: 00:00 (100 mg Hos[facility] ta capsule 00 :00 total) by l mouth 2 (two) times a day for 10 days. cyclobenzap 2021- No [id number] 5mg Q.5D Take 1 [facility] 5-19 05-24 tablet (5 st (FLEXERIL) 00:00: 00:00 mg total) [facility]spita 5 mg tablet 00 :00 by mouth 2 l (two) times a day. ergocalcife 2021- No [id number] Q7D Take 1 [facility] -08 09-[address] (VITAMIN 00:00: 00:00 (50,000 [facility] D2) 50,000 00 :00 Units l unit total) by capsule mouth once a week. febuxostat 2021- No [id number] 80mg QD Take 1 [facility] (ULORIC) 80 09-08-24 tablet (80 s t mg tablet 00:00: 00:00 mg total) Ho spita 00 :00 by mouth l daily. spironolact 2021- No [id number] 50mg QD Take 1 [facility] one 09-08-24 tablet (50 st (ALDACTONE) 00:00: 00:00 mg total) Hospita 50 MG 00 :00 by mouth l tablet daily. doxycycline 2021- No [id number] 100mg Q.5D Take 1 [facility] (VIBRAMYCIN 09-08-[address] ) 100 MG 00:00: 00:00 (100 mg [facility] ta capsule 00 :00 total) by l mouth 2 (two) times a day for 10 days. iron 325 mg 2021- No TAKE 1 [facility] (65 mg 5-12 05-[address] iron) 00:00: 00:00 MOUTH 2 [facility]ospita tablet 00 :00 TIMES l DAILY WITH FOOD iron 325 mg 2021- No TAKE 1 [facility] (65 mg 5-12 05-[address] iron) 00:00: 00:00 MOUTH 2 [facility]ospita tablet 00 :00 TIMES l DAILY WITH FOOD iron 325 mg 2021- No TAKE 1 [facility] (65 mg 5-12 05-[address] iron) 00:00: 00:00 MOUTH 2 [facility]ospita tablet 00 :00 TIMES l DAILY WITH FOOD iron 325 mg 2021- No TAKE 1 [facility] (65 mg 5-12 05-[address] iron) 00:00: 00:00 MOUTH 2 [facility]ospita tablet 00 :00 TIMES l DAILY WITH FOOD iron 325 mg 2021- No TAKE 1 [facility] (65 mg 5-12 05-[address] iron) 00:00: 00:00 MOUTH 2 Hospita tablet 00 :00 TIMES l DAILY WITH FOOD spironolact 2022-0 2022- No [facility] one 08-29 st (ALDACTONE) 00:00: 00:00 [facility] ta 50 MG 00 :00 l tablet spironolact 2-0 2022- No [facility] one 08-29 st (ALDACTONE) 00:00: 00:00 Hos[facility] ta 50 MG 00 :00 l tablet spironolact 2022-0 2022- No [facility] one 08-29 st (ALDACTONE) 00:00: 00:00 Hos[facility] ta 50 MG 00 :00 l tablet spironolact 2022-0 2022- No [facility] one 08-29 st (ALDACTONE) 00:00: 00:00 Hos[facility] ta 50 MG 00 :00 l tablet spironolact 2022-0 2022- No [facility] one 08-29 st (ALDACTONE) 00:00: 00:00 Hospi ta 50 MG 00 :00 l tablet febuxostat 2-0 2022- No 80mg QD Take 80 mg [facility] (ULORIC) 80 4-28 04-[address] mg tablet 11:47: 00:00 nightly. [facility] 11 :00 l febuxostat 2022-0 2022- No 80mg QD Take 80 mg [facility] (ULORIC) 80 4-28 04-[address] mg tablet 11:47: 00:00 nightly. [facility] 11 :00 l febuxostat 2022-0 2022- No 80mg QD Take 80 mg [facility] (ULORIC) 80 4-28 04-[address] mg tablet 11:47: 00:00 nightly. [facility] 11 :00 l febuxostat 2022-0 2022- No 80mg QD Take 80 mg [facility] (ULORIC) 80 4-28 04-[address] mg tablet 11:47: 00:00 nightly. [facility] 11 :00 l febuxostat 2022-0 2022- No 80mg QD Take 80 mg [facility] (ULORIC) 80 4-28 04-[address] mg tablet 11:47: 00:00 nightly. [facility] 11 :00 l febuxostat 2022-0 2022- No TAKE 1 [facility] (ULORIC) 80 4-28 05-[address] mg tablet 00:00: 00:00 MOUTH ONCE H ospita 00 :00 DAILY l febuxostat 2021-0 2021- No TAKE 1 [facility] (ULORIC) 80 4-28 05-[address] mg tablet 00:00: 00:00 MOUTH ONCE H ospita 00 :00 DAILY l febuxostat 2021-0 2021- No TAKE 1 [facility] (ULORIC) 80 4-28 05-[address] mg tablet 00:00: 00:00 MOUTH ONCE H ospita 00 :00 DAILY l febuxostat 2-0 2021- No TAKE 1 [facility] (ULORIC) 80 4-28 05-[address] mg tablet 00:00: 00:00 MOUTH ONCE H ospita 00 :00 DAILY l febuxostat 2-0 2021- No TAKE 1 [facility] (ULORIC) 80 4-28 05-[address] mg tablet 00:00: 00:00 MOUTH ONCE H ospita 00 :00 DAILY l hydrOXYchlo 2-0 2021- No TAKE 1 [facility] roQUINE 4-25 07-[address] (PLAQUENIL) 00:00: 00:00 MOUTH 2 Ho spita 200 mg 00 :00 TIMES l tablet DAILY WITH FOOD hydrOXYchlo 2021-0 2021- No TAKE 1 [facility] roQUINE 4-25 07-[address] (PLAQUENIL) 00:00: 00:00 MOUTH 2 Ho [facility]ita 200 mg 00 :00 TIMES l tablet DAILY WITH FOOD hydrOXYchlo 2021-0 2021- No TAKE 1 [facility] roQUINE 4-25 07-[address] (PLAQUENIL) 00:00: 00:00 MOUTH 2 [facility] 200 mg 00 :00 TIMES l tablet DAILY WITH FOOD hydrOXYchlo 2-0 2021- No TAKE 1 [facility] roQUINE 4-25 07-[address] (PLAQUENIL) 00:00: 00:00 MOUTH 2 [facility] 200 mg 00 :00 TIMES l tablet DAILY WITH FOOD hydrOXYchlo 2-0 2021- No TAKE 1 [facility] roQUINE 4-25 07-[address] (PLAQUENIL) 00:00: 00:00 MOUTH 2 [facility] 200 mg 00 :00 TIMES l tablet DAILY WITH FOOD hydrOXYchlo 2021- No [id number] 200mg Q.5D Take 1 [facility] roQUINE 4-[facility] 04-[address] (PLAQUENIL) 00:00: 00:00 (200 mg Ho sp[facility] 200 mg 00 :00 total) by l tablet mouth 2 (two) times a day. hydrOXYchlo 2021- No [id number] 200mg Q.5D Take 1 [facility] roQUINE 4-25 04-[address] (PLAQUENIL) 00:00: 00:00 (200 mg Ho spita 200 mg 00 :00 total) by l tablet mouth 2 (two) times a day. hydrOXYchlo 2021- No [id number] 200mg Q.5D Take 1 [facility] roQUINE 4-25 04-[address] (PLAQUENIL) 00:00: 00:00 (200 mg Ho spita 200 mg 00 :00 total) by l tablet mouth 2 (two) times a day. hydrOXYchlo 2021- No [id number] 200mg Q.5D Take 1 [facility] roQUINE 4-25 04-[address] (PLAQUENIL) 00:00: 00:00 (200 mg Ho spita 200 mg 00 :00 total) by l tablet mouth 2 (two) times a day. hydrOXYchlo 2021- No [id number] 200mg Q.5D Take 1 [facility] roQUINE 4-25 04-[address] (PLAQUENIL) 00:00: 00:00 (200 mg [facility] 200 mg 00 :00 total) by l tablet mouth 2 (two) times a day. montelukast Yes [id number] TAKE 1 [facility] 10 mg 4-14 TABLET BY [facility] of tablet 00:00: MOUTH 1 [place] 00 TIME EACH Medical DAY Branch montelukast 2021-0 Yes [id number] TAKE 1 [facility] 10 mg 4-14 TABLET BY ity of tablet 00:00: MOUTH 1 [place] 00 TIME EACH Medical DAY Branch montelukast 2021-0 Yes [id number] TAKE 1 [facility] 10 mg 4-14 TABLET BY ity of tablet 00:00: MOUTH 1 [place] [address] TIME EACH Medical DAY Branch montelukast 2021-0 Yes [id number] TAKE 1 [facility] 10 mg 4-14 TABLET BY ity of tablet 00:00: MOUTH TIME EACH Medical DAY Branch montelukast 2021-0 Yes [id number] TAKE 1 [facility] 10 mg 4-14 TABLET BY ity of tablet 00:00: MOUTH TIME EACH Medical DAY Branch montelukast 2021-0 Yes [id number] TAKE 1 [facility] 10 mg 4-14 TABLET BY ity of tablet 00:00: MOUTH TIME EACH Medical DAY Branch montelukast 2021-0 Yes [id number] TAKE 1 [facility] 10 mg 4-14 TABLET BY ity of tablet 00:00: MOUTH TIME EACH Medical DAY Branch montelukast 2021-0 Yes [id number] TAKE 1 [facility] 10 mg 4-14 TABLET BY ity of tablet 00:00: MOUTH TIME EACH Medical DAY Branch ALLOPURINOL 2021-0 Yes [id number] TAKE 1 [facility] 100 mg 4-12 TABLET BY ity of tablet 00:00: MOUTH EVERY DAY Medical Branch ALLOPURINOL 2021-0 Yes [id number] TAKE 1 [facility] 100 mg 4-12 TABLET BY ity of tablet 00:00: MOUTH EVERY DAY Medical Branch ALLOPURINOL 2021-0 Yes [id number] TAKE 1 [facility] 100 mg 4-12 TABLET BY ity of tablet 00:00: MOUTH 00 EVERY DAY Medical Branch ALLOPURINOL 2021-0 Yes [id number] TAKE 1 [facility] 100 mg 4-12 TABLET BY ity of tablet 00:00: MOUTH EVERY DAY Medical Branch ALLOPURINOL 2021-0 Yes [id number] TAKE 1 [facility] 100 mg 4-12 TABLET BY ity of tablet 00:00: MOUTH 00 EVERY DAY Medical Branch ALLOPURINOL 2021-0 Yes [id number] TAKE 1 [facility] 100 mg 4-12 TABLET BY ity of tablet 00:00: MOUTH EVERY DAY Medical Branch ALLOPURINOL 2021-0 Yes [id number] TAKE 1 [facility] 100 mg 4-12 TABLET BY ity of tablet 00:00: MOUTH [place] 00 EVERY DAY Medical Branch ALLOPURINOL 2021-0 Yes [id number] TAKE 1 [facility] 100 mg 4-12 TABLET BY ity of tablet 00:00: MOUTH [place] EVERY DAY Medical Branch allopurinoL 2021-0 2- No 100mg QD Take 100 [facility] (ZYLOPRIM) 4-12 05-[address] 100 MG 00:00: 00:00 mouth [facility]ospita tablet 00 :00 daily. l allopurinoL 2022-0 2022- No 100mg QD Take 100 [facility] (ZYLOPRIM) 4-12 05-[address] 100 MG 00:00: 00:00 mouth [facility]ospita tablet 00 :00 daily. l allopurinoL 2022-0 2022- No 100mg QD Take 100 [facility] (ZYLOPRIM) 4-12 05-[address] 100 MG 00:00: 00:00 mouth [facility]ospita tablet 00 :00 daily. l allopurinoL 2022-0 2022- No 100mg QD Take 100 [facility] (ZYLOPRIM) 4-12 05-[address] 100 MG 00:00: 00:00 mouth [facility]ospita tablet 00 :00 daily. l allopurinoL 2022-0 2022- No 100mg QD Take 100 [facility] (ZYLOPRIM) 4-12 05-[address] 100 MG 00:00: 00:00 mouth Hospita tablet 00 :00 daily. l isosorbide 2-0 2022- No [facility] mononitrate 08-02 st (IMDUR) 60 00:00: 00:00 Hospit a MG 24 hr 00 :00 l tablet isosorbide 2022-0 2022- No [facility] mononitrate [facility]-02 st (IMDUR) 60 00:00: 00:00 Hospit a MG 24 hr 00 :00 l tablet isosorbide 2022-0 2022- No [facility] mononitrate 08-02 st (IMDUR) 60 00:00: 00:00 Hospit a MG 24 hr 00 :00 l tablet isosorbide 2022-0 2022- No [facility] mononitrate 08-02 st (IMDUR) 60 00:00: 00:00 Hospit a MG 24 hr 00 :00 l tablet isosorbide 2022-0 2022- No [facility] mononitrate 08-02 st (IMDUR) 60 00:00: 00:00 Hospit a MG 24 hr 00 :00 l tablet donepeziL 2021-0 2022- No [facility] ([facility]PT[facility]-26 st 10 MG 00:00: 00:00 Hospita tablet 00 :00 l donepeziL 2021-0 2022- No [facility] ([facility]PT[facility]-26 [facility] 10 MG 00:00: 00:00 Hospita tablet 00 :00 l donepeziL 2021-0 2022- No [facility] ([facility]PT[facility]-26 [facility] 10 MG 00:00: 00:00 Hospita tablet 00 :00 l donepeziL 2021-0 2022- No [facility] ([facility]PT[facility]-26 [facility] 10 MG 00:00: 00:00 Hospita tablet 00 :00 l donepeziL 2021-0 2022- No [facility] ([facility]PT[facility]-26 [facility] 10 MG 00:00: 00:00 Hospita tablet 00 :00 l pantoprazol 2021-0 Yes [id number] 40mg Take 1 [facility] e 40 mg EC 3-17 tablet by ity of tablet 00:00: mouth 2 [place] (two) Medical times Branch daily. sodium,pota 2021-0 Yes 117mL Take 117 U nivers ssium,mag 3-17 mL by ity of sulfates 00:00: mouth [place] 17.5-3.13-1 00 SEE-INSTRU Me dical .6 gram CTIONS. Branch Take as directed pantoprazol 2-0 Yes [id number] 40mg Take 1 [facility] e 40 mg EC 3-17 tablet by ity of tablet 00:00: mouth 2 [place] (two) Medical times Branch daily. sodium,pota 2-0 Yes 117mL Take 117 U nivers ssium,mag 3-17 mL by ity of sulfates 00:00: mouth [place] 17.5-3.13-1 00 SEE-INSTRU Me dical .6 gram CTIONS. Branch Take as directed pantoprazol 2-0 Yes [id number] 40mg Take 1 [facility] e 40 mg EC 3-17 tablet by ity of tablet 00:00: mouth 2 [place] (two) Medical times Branch daily. sodium,pota 2022-0 Yes 117mL Take 117 U nivers ssium,mag 3-17 mL by ity of sulfates 00:00: mouth [place] 17.5-3.13-1 00 SEE-INSTRU Me dical .6 gram CTIONS. Branch Take as directed pantoprazol 2021-0 Yes [id number] 40mg Take 1 [facility] e 40 mg EC 3-17 tablet by ity of tablet 00:00: mouth 2 (two) Medical times Branch daily. sodium,pota 2021-0 Yes 117mL Take 117 U nivers ssium,mag 3-17 mL by ity of sulfates 00:00: mouth [place] 17.5-3.13-1 00 SEE-INSTRU Me dical .6 gram CTIONS. Branch Take as directed pantoprazol 2021-0 Yes [id number] 40mg Take 1 [facility] e 40 mg EC 3-17 tablet by ity of tablet 00:00: mouth 2 (two) Medical times Branch daily. sodium,pota 2021-0 Yes 117mL Take 117 U nivers ssium,mag 3-17 mL by ity of sulfates 00:00: mouth [place] 17.5-3.13-1 00 SEE-INSTRU Me dical .6 gram CTIONS. Branch Take as directed pantoprazol 2021-0 Yes [id number] 40mg Take 1 [facility] e 40 mg EC 3-17 tablet by ity of tablet 00:00: mouth (two) Medical times Branch daily. sodium,pota 2021-0 Yes 117mL Take 117 U nivers ssium,mag 3-17 mL by ity of sulfates 00:00: mouth [place] 17.5-3.13-1 00 SEE-INSTRU Me dical .6 gram CTIONS. Branch Take as directed pantoprazol 2-0 Yes [id number] 40mg Take 1 [facility] e 40 mg EC 3-17 tablet by ity of tablet 00:00: mouth 2 (two) Medical times Branch daily. sodium,pota 2-0 Yes 117mL Take 117 U nivers ssium,mag 3-17 mL by ity of sulfates 00:00: mouth [place] 17.5-3.13-1 00 SEE-INSTRU Me dical .6 gram CTIONS. Branch Take as directed pantoprazol 2-0 Yes [id number] 40mg Take 1 [facility] e 40 mg EC 3-17 tablet by ity of tablet 00:00: mouth 2 (two) Medical times Branch daily. sodium,pota 2-0 Yes 117mL Take 117 U nivers ssium,mag 3-17 mL by ity of sulfates 00:00: mouth [place] 17.5-3.13-1 00 SEE-INSTRU Mo dical .6 gram CTIONS. Branch Take as directed simvastatin Yes 10mg Take 10 mg [facility] (ZOCOR) 10 3-15 by mouth ity o f mg tablet 08:04: at [place] [address] bedtime. Medical Branch blood-gluco Yes Univer s se meter 3-15 ity of (ACCU-CHEK 08:04: [place] GUIDE ME 04 Medical GLUCOSE MTR Branch MISC) ACCU-CHEK Yes Check [facility] FASTCLIX 3-15 glucose ity of MISC 08:04: twice [place] 04 daily; Medical Diagnosis Branch code E11.9 ACCU-CHEK Yes Check [facility] GUIDE strip 3-15 glucose ity o f 08:04: twice [place] 04 daily; Medical Diagnosis Branch code E11.9 [...] ity o f mg tablet 08:04: at [place] [address] bedtime. Medical Branch blood-gluco Yes Univer s se meter 3-15 ity of (ACCU-CHEK 08:04: [place] GUIDE SC 04 Medical GLUCOSE [facility] Branch [facility] [place]) ACCU-CHEK 0 Yes Check [facility] FASTCLIX 3-15 [...] ity o f mg tablet 08:04: at [place] 04 bedtime. Medical Branch blood-gluco Yes Univer s se meter 3-15 ity of (ACCU-CHEK 08:04: [place] GUIDE SC 04 Medical GLUCOSE [facility] Branch [facility] [place]) ACCU-CHEK 0 Yes Check [facility] FASTCLIX 3-15 glucose ity of MISC 08:04: twice [place] 04 daily; Medical Diagnosis Branch code E11.9 [...] le} capsule ity of HANDIHALER 08:04: daily. 18 mcg 04 Medical inhalation Branch device [...] ity o f mg tablet 08:04: at [place] 04 bedtime. Medical Branch blood-gluco Yes Univer s se meter 3-15 ity of (ACCU-CHEK 08:04: [place] GUIDE SC 04 Medical GLUCOSE [facility] Branch MISC) ACCU-CHEK Yes Check [facility] FASTCLIX [...] ity o f mg tablet 08:04: at [place] 04 bedtime. Medical Branch blood-gluco Yes Univer s se meter 3-15 ity of (ACCU-CHEK 08:04: [place] GUIDE SC 04 Medical GLUCOSE MTR Branch MISC) ACCU-CHEK 0 Yes Check [facility] FASTCLIX 3-15 glucose ity of MISC 08:04: twice [place] 04 daily; Medical Diagnosis Branch code E11.9 ACCU-CHEK 0 Yes Check [facility] GUIDE strip 3-15 glucose ity o f 08:04: twice [place] 04 daily; Medical Diagnosis Branch code E11.9 [...] ity o f mg tablet 08:04: at [place] [address] bedtime. Medical Branch blood-gluco Yes Univer s se meter 3-15 ity of (ACCU-CHEK 08:04: [place] GUIDE ME 04 Medical GLUCOSE MTR Branch MISC) ACCU-CHEK 2021-0 Yes Check [facility] FASTCLIX 3-15 glucose ity of MISC 08:04: twice [place] 04 daily; Medical Diagnosis Branch code E11.9 ACCU-CHEK 0 Yes Check [facility] GUIDE strip 3-15 glucose ity o f 08:04: twice [place] 04 daily; Medical Diagnosis Branch code E11.9 [...] it y of nebulizer 08:04: times [place] [facility] [place] 04 daily. Medical Rinse Branch mouth after each use. PROVENTIL 0 Yes 1{puff} Inhale 1 U nivers HFA 90 3-15 Puff 2 ity of mcg/actuati 08:04: (two) [place] on inhaler 04 times Medical daily as Branch needed for Wheezing or Shortness of Breath. isosorbide 0 Yes Take by [facility] ers mononitrate 3-15 mouth ity of 60 mg 24 hr 08:04: [place]. [place] tablet [place] [facility] simvastatin Yes 10mg Take 10 mg [facility] (ZOCOR) 10 3-15 by mouth ity o f mg tablet 08:04: at [place] [address] bedtime. Medical Branch blood-gluco Yes Univer s se meter 3-15 ity of (ACCU-CHEK 08:04: [place] GUIDE SC 04 Medical GLUCOSE [facility] Branch [facility] [place] ACCU-CHEK 0 Yes Check [facility] FASTCLIX 3-15 [...] le} capsule ity of HANDIHALER 08:04: daily. [place] 18 mcg 04 Medical inhalation Branch device [...] ity o f mg tablet 08:04: at [place] 04 bedtime. Medical Branch blood-gluco Yes [facility] se meter 3-15 ity of (ACCU-CHEK 08:04: [place] GUIDE SC 04 Medical GLUCOSE [facility] [place] ACCU-CHEK 0 Yes Check [facility] FASTCLIX 3-15 glucose ity of MISC 08:04: twice [place] 04 daily; Medical Diagnosis Branch code E11.9 [...] [place] tablet 04 [place] [facility] hydrALAZINE 2021-0 Yes [id number] 25mg Take 1 [facility] 25 mg 3-03 tablet by ity of tablet 00:00: mouth [place] 00 every 8 Medical (eight) Branch hours. hydrALAZINE 2021-0 Yes [id number] 25mg Take 1 [facility] 25 mg 3-03 tablet by ity of tablet 00:00: mouth [place] 00 every 8 Medical (eight) Branch hours. hydrALAZINE 2021-0 Yes [id number] 25mg Take 1 [facility] 25 mg 3-03 tablet by ity of tablet 00:00: mouth [place] 00 every 8 Medical (eight) Branch hours. hydrALAZINE 2021-0 Yes [id number] 25mg Take 1 [facility] 25 mg 3-03 tablet by ity of tablet 00:00: mouth [place] 00 every 8 Medical (eight) Branch hours. hydrALAZINE 2021-0 Yes [id number] 25mg Take 1 [facility] 25 mg 3-03 tablet by ity of tablet 00:00: mouth [place] 00 every 8 Medical (eight) Branch hours. hydrALAZINE 2021-0 Yes [id number] 25mg Take 1 [facility] 25 mg 3-03 tablet by ity of tablet 00:00: mouth [place] 00 every 8 Medical (eight) Branch hours. hydrALAZINE 0 Yes [id number] 25mg Take 1 [facility] 25 mg 3-03 tablet by ity of tablet 00:00: mouth [place] 00 every 8 Medical (eight) Branch hours. hydrALAZINE 0 Yes [id number] 25mg Take 1 [facility] 25 mg 3-03 tablet by ity of tablet 00:00: mouth [place] 00 every 8 Medical (eight) Branch hours. ergocalcife 0 Yes [id number] TAKE 1 Univers rol, 2-09 CAPSULE BY ity of vitamin d2, 00:00: MOUTH [place] (VITAMIN 00 EVERY WEEK Medic al D2) 1,250 Branch mcg (50,000 DIRECTED unit) capsule ergocalcife 2021- No [id number] TAKE 1 [facility] rol, 2-09 09-07 CAPSULE BY ity of vitamin d2, 00:00: 00:00 [place]TH [place] (VITAMIN 00 :00 EVERY WEEK Medic al D2) 1,250 Branch mcg (50,000 DIRECTED unit) capsule desloratadi Yes [id number] 5mg Take 1 [facility] ne 5 mg 1-25 tablet by ity of tablet 00:00: mouth [place] 00 every Medical other day. Branch desloratadi Yes [id number] 5mg Take 1 [facility] ne 5 mg 1-25 tablet by ity of tablet 00:00: mouth [place] 00 every Medical other day. [place] desloratadi 0 Yes [id number] 5mg Take 1 Univers ne 5 mg 1-25 tablet by ity of tablet 00:00: mouth [place] 00 every Medical other day. Branch desloratadi 0 Yes [id number] 5mg Take 1 [facility] ne 5 mg 1-25 tablet by ity of tablet 00:00: mouth [place] 00 every Medical other day. Branch desloratadi 0 Yes [id number] 5mg Take 1 Univers ne 5 mg 1-25 tablet by ity of tablet 00:00: mouth [place] 00 every Medical other day. [place] desloratadi 0 Yes [id number] 5mg Take 1 [facility] ne 5 mg 1-25 tablet by ity of tablet 00:00: mouth [place] 00 every Medical other day. [place] desloratadi 0 Yes [id number] 5mg Take 1 [facility] ne 5 mg 1-25 tablet by ity of tablet 00:00: mouth [place] every Medical other day. Branch desloratadi 2021-0 Yes [id number] 5mg Take 1 Univers ne 5 mg 1-25 tablet by ity of tablet 00:00: mouth [place] 00 every Medical other day. Branch donepeziL 2020-0 Yes [id number] 10mg Take 1 Un [place] 10 mg 9-21 tablet by ity of tablet 00:00: mouth at [place] [address] bedtime. Medical Branch donepeziL 2020-0 Yes [id number] 10mg Take 1 Un sh[place] 10 mg 9-21 tablet by ity of tablet 00:00: mouth at [place] [address] bedtime. Medical Branch donepeziL 0 Yes [id number] 10mg Take 1 Un [place] 10 mg 9-21 tablet by ity of tablet 00:00: mouth at [place] [address] bedtime. Medical Branch donepeziL 2020-0 Yes [id number] 10mg Take 1 Un sh[place] 10 mg 9-21 tablet by ity of tablet 00:00: mouth at [place] [address] bedtime. Medical Branch donepeziL 2020-0 Yes [id number] 10mg Take 1 Un [place] 10 mg 9-21 tablet by ity of tablet 00:00: mouth at [place] [address] bedtime. Medical Branch donepeziL 2020-0 Yes [id number] 10mg Take 1 Un sh[place]a 10 mg 9-21 tablet by ity of tablet 00:00: mouth at [place] [address] bedtime. Medical Branch donepeziL 2020-0 Yes [id number] 10mg Take 1 Un [place] 10 mg 9-21 tablet by ity of tablet 00:00: mouth at [place] [address] bedtime. Medical Branch donepeziL 2020-0 Yes [id number] 10mg Take 1 Un sh[place] 10 mg 9-21 tablet by ity of tablet 00:00: mouth at [place] [address] bedtime. Medical Branch CYCLOBENZAP 2020-0 Yes [id number] TAKE 1 [facility] RINE 5 mg 9-10 TABLET BY ity o f tablet 00:00: MOUTH [place] 00 TWICE A Medical DAY Branch NEEDED FOR MUSCLE SPASMS CYCLOBENZAP 2020-0 Yes [id number] TAKE 1 Univers RINE 5 mg 9-10 TABLET BY ity o f tablet 00:00: TWICE A Medical DAY Branch NEEDED FOR MUSCLE SPASMS CYCLOBENZAP 1-0 Yes [id number] TAKE 1 Univers RINE 5 mg 9-10 TABLET BY ity o f tablet 00:00: TWICE A Medical DAY Branch NEEDED FOR MUSCLE SPASMS CYCLOBENZAP 2021-0 Yes [id number] TAKE 1 Univers RINE 5 mg 9-10 TABLET BY ity o f tablet 00:00: TWICE A Medical DAY Branch NEEDED FOR MUSCLE SPASMS CYCLOBENZAP 2021-0 Yes [id number] TAKE 1 [facility] RINE 5 mg 9-10 TABLET BY ity o f tablet 00:00: TWICE A Medical DAY Branch NEEDED FOR MUSCLE SPASMS CYCLOBENZAP 1-0 Yes [id number] TAKE 1 [facility] RINE 5 mg 9-10 TABLET BY ity o f tablet 00:00: TWICE A Medical DAY Branch NEEDED FOR MUSCLE SPASMS CYCLOBENZAP 1-0 Yes [id number] TAKE 1 [facility] RINE 5 mg 9-10 TABLET BY ity o f tablet 00:00: TWICE A Medical DAY Branch NEEDED FOR MUSCLE SPASMS CYCLOBENZAP 1-0 Yes [id number] TAKE 1 [facility] RINE 5 mg 9-10 TABLET BY ity o f tablet 00:00: TWICE A Medical DAY Branch NEEDED FOR MUSCLE SPASMS bumetanide 2020-0 Yes 2mg Take 2 Unive rs 1 mg tablet 8-30 tablets by it y of 00:00: [place] (two) Medical times Branch daily. bumetanide 1-0 Yes 2mg Take 2 Unive rs 1 mg tablet 8-30 tablets by it y of 00:00: [place] (two) Medical times Branch daily. bumetanide 2020-0 Yes 2mg Take 2 Unive rs 1 mg tablet 8-30 tablets by it y of 00:00: mouth (two) Medical times Branch daily. bumetanide 1-0 Yes 2mg Take 2 Unive rs 1 mg tablet 8-30 tablets by it y of 00:00: mouth (two) Medical times Branch daily. bumetanide 1-0 Yes 2mg Take 2 Unive rs 1 mg tablet 8-30 tablets by it y of 00:00: mouth 2 (two) Medical times Branch daily. bumetanide Yes 2mg Take 2 Unive rs 1 mg tablet 8-30 tablets by it y of 00:00: mouth 2 (two) Medical times Branch daily. bumetanide Yes 2mg Take 2 Unive rs 1 mg tablet 8-30 tablets by it y of 00:00: mouth 2 (two) Medical times Branch daily. bumetanide Yes 2mg Take 2 Unive rs 1 mg tablet 8-30 tablets by it y of 00:00: mouth 2 [place] (two) Medical times Branch daily. albuterol Yes [...] DAILY. 40 MG EC 49 tablet potassium Yes [facility] chloride CR 12-16 Health (Klor-Con 15:09: M10) 10 MEQ 49 ER tablet Tiotropium Yes [facility] [place] 12-16 Health Monohydrate 15:09: (Spiriva 49 Respimat) 1.25 MCG/ACT aerosol solution traZODone Yes [facility] (Desyrel) 12-16 Health 300 MG 15:09: tablet 49 econazole Yes [id number] Apply to U nivers nitrate 1 % 7-19 area(s) ity o f cream 00:00: daily. Medical Branch mupirocin 2 2021-0 Yes [id number] Apply to Univers % ointment 7-19 area(s) 2 ity of 00:00: (two) [place] 00 times Medical daily. Branch econazole 1-0 Yes [id number] Apply to U nivers nitrate 1 % 7-19 area(s) ity o f cream 00:00: daily. [place] [facility] Branch mupirocin 2 2020-0 Yes [id number] Apply to Univers % ointment 7-19 area(s) 2 ity of 00:00: (two) [place] 00 times Medical daily. Branch econazole 1-0 Yes [id number] Apply to U nivers nitrate 1 % 7-19 area(s) ity o f cream 00:00: daily. [place] [facility] Branch mupirocin 2 2020-0 Yes [id number] Apply to Univers % ointment 7-19 area(s) 2 ity of 00:00: (two) [place] Medical daily. Branch econazole 1-0 Yes [id number] Apply to U nivers nitrate 1 % 7-19 area(s) ity o f cream 00:00: daily. [place] [facility] Branch mupirocin 2 2020-0 Yes [id number] Apply to Univers % ointment 7-19 area(s) 2 ity of 00:00: (two) [place] 00 Medical daily. Branch econazole 1-0 Yes [id number] Apply to U nivers nitrate 1 % 7-19 area(s) ity o f cream 00:00: daily. [place] [facility] Branch mupirocin 2 2020-0 Yes [id number] Apply to Univers % ointment 7-19 area(s) 2 ity of 00:00: (two) [place] 00 Medical daily. Branch econazole 1-0 Yes [id number] Apply to U nivers nitrate 1 % 7-19 area(s) ity o f cream 00:00: daily. [place] [facility] Branch mupirocin 2 1-0 Yes [id number] Apply to Univers % ointment 7-19 area(s) 2 ity of 00:00: (two) [place] 00 times Medical daily. Branch econazole 1-0 Yes [id number] Apply to U nivers nitrate 1 % 7-19 area(s) ity o f cream 00:00: daily. [place] [facility] Branch mupirocin 2 2020-0 Yes [id number] Apply to Univers % ointment 7-19 area(s) 2 ity of 00:00: (two) [place] 00 times Medical daily. Branch econazole 2020-0 Yes [id number] Apply to U nivers nitrate 1 % -19 area(s) ity o f cream 00:00: daily. [place] [facility] Branch mupirocin 2 2020-0 Yes [id number] Apply to [facility] % ointment 7-19 area(s) 2 ity of 00:00: (two) [place] 00 times Medical daily. Branch HYDROcodone 0 Yes Univer s -acetaminop 7-01 ity of hen 10-325 00:00: [place] mg tablet 00 Medical Branch HYDROcodone 2020-0 Yes Univer s -acetaminop 7- ity of hen 10-325 00:00: [place] mg tablet 00 Medical Branch HYDROcodone 2020-0 Yes Univer s -acetaminop 7- ity of hen 10-325 00:00: [place] mg tablet 00 Medical Branch HYDROcodone 2020-0 Yes Univer s -acetaminop 7- ity of hen 10-325 00:00: [place] mg tablet 00 Medical Branch HYDROcodone 2020-0 Yes Univer s -acetaminop 7- ity of hen 10-325 00:00: [place] mg tablet 00 Medical Branch HYDROcodone 2020-0 Yes Univer s -acetaminop 7- ity of hen 10-325 00:00: [place] mg tablet 00 Medical Branch HYDROcodone 2020-0 Yes Univer s -acetaminop 7- ity of hen 10-325 00:00: [place] mg tablet 00 Medical Branch HYDROcodone 2020-0 Yes Univer s -acetaminop 7-01 ity of hen 10-325 00:00: [place] mg tablet 00 Medical Branch albuterol 2020-0 Yes [facility] 108 (90 09-27 [facility] Base) 18:46: MCG/ACT 35 inhaler budesonide 0 Yes [facility] (Pulmicort) 09-27 Health 0.25 MG/2ML [...] MEQ 35 ER tablet Tiotropium Yes [facility] [place] 09-27 [facility] Monohydrate 18:46: (Spiriva 35 Respimat) 1.25 MCG/ACT aerosol solution traZODone Yes [facility] (Desyrel) 09-27 [facility] 300 MG 18:46: tablet 35 ferrous Yes [id number] 324mg Take 1 Un shaila gluconate 2-23 tablet by ity o f 324 mg 00:00: mouth 2 [place] (37.5 mg 00 (two) Medical iron) times Branch tablet daily. ferrous Yes [id number] 324mg Take 1 Un [place] gluconate 2-23 tablet by ity o f 324 mg 00:00: mouth 2 [place] (37.5 mg 00 (two) Medical iron) times Branch tablet daily. ferrous Yes [id number] 324mg Take 1 Un shaila gluconate 2-23 tablet by ity o f 324 mg 00:00: mouth 2 [place] (37.5 mg 00 (two) Medical iron) times Branch tablet daily. ferrous Yes [id number] 324mg Take 1 Un [place] gluconate 2-23 tablet by ity o f 324 mg 00:00: mouth 2 [place] (37.5 mg 00 (two) Medical iron) times Branch tablet daily. ferrous Yes [id number] 324mg Take 1 Un [place] gluconate 2-23 tablet by ity o f 324 mg 00:00: mouth 2 [place] (37.5 mg 00 (two) Medical iron) times Branch tablet daily. ferrous Yes [id number] 324mg Take 1 Un sh[place] gluconate 2-23 tablet by ity o f 324 mg 00:00: mouth 2 [place] (37.5 mg 00 (two) Medical iron) times Branch tablet daily. ferrous 2020-0 Yes [id number] 324mg Take 1 Un shaila gluconate 2-23 tablet by ity o f 324 mg 00:00: mouth 2 [place] (37.5 mg 00 (two) Medical iron) times Branch tablet daily. ferrous 2020-0 Yes [id number] 324mg Take 1 Un shaila gluconate 2-23 [...] tablet by ity of tablet 00:00: mouth 00 before Medical meals and Branch at bedtime. Indication s: a type of stomach irritation called gastritis NYSTATIN 2019- Yes [id number] APPLY Univ ers 100,000 0-28 SMALL ity of unit/gram 00:00: AMOUNT TO [place] as powder 00 AFFECTED Medical AREA TWICE Branch A DAY DIRECTED NYSTATIN 2020- Yes [id number] APPLY Univ ers 100,000 0-28 SMALL ity of unit/gram 00:00: AMOUNT TO [place] as powder 00 AFFECTED Medical AREA TWICE Branch A DAY DIRECTED NYSTATIN 2020- Yes [id number] APPLY Univ ers 100,000 0-28 SMALL ity of unit/gram 00:00: AMOUNT TO [place] as powder 00 AFFECTED Medical AREA TWICE Branch A DAY DIRECTED NYSTATIN 2020- Yes [id number] APPLY Univ ers 100,000 0-28 SMALL ity of unit/gram 00:00: AMOUNT TO [place] as powder 00 AFFECTED Medical AREA TWICE Branch A DAY DIRECTED NYSTATIN 2020-1 Yes [id number] APPLY Univ ers 100,000 0-28 SMALL ity of unit/gram 00:00: AMOUNT TO [place] as powder 00 AFFECTED Medical AREA TWICE Branch A DAY DIRECTED NYSTATIN 2020-1 Yes [id number] APPLY Univ ers 100,000 0-28 SMALL ity of unit/gram 00:00: AMOUNT TO [place] as powder 00 AFFECTED Medical AREA TWICE Branch A DAY DIRECTED NYSTATIN 2020-1 Yes [id number] APPLY Univ ers 100,000 0-28 SMALL ity of unit/gram 00:00: AMOUNT TO [place] as powder 00 AFFECTED Medical AREA TWICE Branch A DAY DIRECTED NYSTATIN 2020-1 Yes [id number] APPLY Univ ers 100,000 0-28 SMALL ity of unit/gram 00:00: AMOUNT TO [place] as powder 00 AFFECTED Medical AREA TWICE Branch A DAY DIRECTED aspirin 2019- Yes TAKE 1 [facility] (Aspirin 0-19 TABLET [...] 00:00: M.D. ONCE ans 00 DAILY. hydrOXYchlo 2021- No 200mg Q.5D Take 200 Methodi roQUINE 6-22 04-[address] (PLAQUENIL) 00:00: 00:00 mouth 2 [facility] 200 mg 00 :00 (two) l tablet times a day. hydrOXYchlo 2021- No 200mg Q.5D Take 200 Methodi roQUINE 6-22 04-[address] (PLAQUENIL) 00:00: 00:00 mouth 2 [facility] 200 mg 00 :00 (two) l tablet times a day. hydrOXYchlo 2021- No 200mg Q.5D Take 200 Methodi roQUINE 6-22 04-[address] (PLAQUENIL) 00:00: 00:00 mouth 2 [facility] 200 mg 00 :00 (two) l tablet times a day. hydrOXYchlo 2021- No 200mg Q.5D Take 200 Methodi roQUINE 6-22 04-[address] (PLAQUENIL) 00:00: 00:00 mouth 2 [facility] 200 mg 00 :00 (two) l tablet times a day. hydrOXYchlo 2021- No 200mg Q.5D Take 200 Methodi roQUINE 6-22 04-[address] (PLAQUENIL) 00:00: 00:00 mouth 2 [facility] sp[facility] 200 mg 00 :00 (two) l tablet times a day. hydrALAZINE Yes TAKE 1 [facility] (Apresoline 3-05 TABLET ) 50 MG 00:00: TIMES tablet 00 DAILY. isosorbide 2020-0 Yes TAKE ONE [facility] mononitrate 3-05 TABLET BY [facility] ER (Imdur) 00:00: MOUTH 30 MG 24 hr 00 EVERY tablet MORNING hydrALAZINE 2020-0 Yes TAKE 1 [facility] (Apresoline 3-05 TABLET 3 Heal th ) 50 MG 00:00: TIMES tablet 00 DAILY. isosorbide 2020-0 Yes TAKE ONE [facility] mononitrate 3-05 TABLET BY [facility] ER (Imdur) 00:00: MOUTH 30 MG 24 hr 00 EVERY tablet MORNING hydrALAZINE hydrALAZINE 2020-0 Yes BENNET Q0.3333D TAKE 1 [facility] HCl - 50 MG HCl - 50 MG 3-05 KEN TABLET 3 [facility] Oral Tablet Oral Tablet 00:00: M.D. TIMES ans 00 DAILY. Isosorbide Isosorbide 2020-0 Yes BENNET QD TAKE ONE [facility] Mononitrate Mononitrate 3-05 KEN TABLET BY [facility] ER 30 MG ER 30 MG 00:00: M.D. MOUTH ans Oral Tablet Oral Tablet 00 EVERY Extended Extended MORNING Release 24 Release 24 Hour Hour alcohol 2021- No Comments: Meth dionna swabs pads, 07-17 05-19 | Filled st medicated 00:00: 00:00 Date: eTresa garcia 2017 l 12:16PM | Patient Notes: USE TO TEST BLOOD GLUCOSE TWICE DAILY Duration: 30 alcohol 2021- No Comments: Meth dionna swabs pads, 07-17 05-19 | Filled st medicated 00:00: 00:00 Date: Teresa garcia 2017 l 12:16PM | Patient Notes: USE TO TEST BLOOD GLUCOSE TWICE DAILY Duration: 30 alcohol 2021- No Comments: Meth dionna swabs pads, 07-17 05-19 | Filled st medicated 00:00: 00:00 Date: Teresa Garcia spialondra 2017 l 12:16PM | Patient Notes: USE TO TEST BLOOD GLUCOSE TWICE DAILY Duration: 30 alcohol 2021- No Comments: Meth dionna swabs pads, 07-17 05-19 | Filled st medicated 00:00: 00:00 Date: Teresa Garcia spita 2017 l 12:16PM | Patient Notes: USE TO TEST BLOOD GLUCOSE TWICE DAILY Duration: 30 alcohol 2021- No Comments: Meth dionna swabs pads, 07-1719 | Filled st medicated 00:00: 00:00 Date: [...] Tablet 00:00: DAILY. ans 00 Hydroxychlo Hydroxychlo 2007-0 Yes Q0.5D TAKE 1 [facility] roquine roquine [...] TABS [facility] ans Immunizations Ordered Immunization Filled Date Status Comments Sour ce Name Immunization Name [facility] COVID-19 2021-02-15 Completed Methodis t MRNA VACCINATION 00:00:00 [facility] COVID-19 2021-02-15 Completed Methodis t MRNA VACCINATION 00:00:00 [facility] COVID-19 2021-02-15 Completed Methodis t MRNA VACCINATION 00:00:00 [facility] COVID-19 2021-02-15 Completed Methodis t MRNA VACCINATION 00:00:00 [facility] COVID-19 2021-02-15 Completed Methodis t MRNA VACCINATION 00:00:00 [facility] SARS-COV-2 COVID-2021-02-15 Completed Unive rsity of [facility] VACCINE 00:00:00 [place] Med ical Branch SARS-COV-2 [...] Unive rsity of MODERNA 12+ YRS 00:00:00 [facility] ical VACCINE Branch SARS-COV-2 COVID-19 2021-02-15 Completed Unive rsity of MODERNA 12+ YRS 00:00:00 [facility] ical VACCINE Branch SARS-COV-2 COVID-19 2021-02-15 Completed Unive rsity of MODERNA 12+ YRS 00:00:00 [facility] ical VACCINE Branch [place] COVID-19 2020-08-11 Completed Methodis t MRNA VACCINATION 00:00:00 [facility] COVID-19 2020-08-11 Completed Methodis t MRNA VACCINATION 00:00:00 [facility] COVID-19 2020-08-11 Completed Methodis t MRNA VACCINATION 00:00:00 [facility] COVID-19 2020-08-11 Completed Methodis t MRNA VACCINATION 00:00:00 Hospital [facility] COVID-19 2020-08-11 Completed Methodis t MRNA VACCINATION 00:00:00 Hospital Covid-19 [facility] 2020-[facility]:00 Vaccination Covid-19 [facility] 2020-08-11 [facility] SARS[facility]-2 00:00:00 Vaccination [facility] COVID-19 2020-07-07 Completed Methodis t MRNA VACCINATION 00:00:00 Hospital [facility] COVID-19 2020-07-07 Completed Methodis t MRNA VACCINATION 00:00:00 Hospital [facility] COVID-19 2020-07-07 Completed Methodis t MRNA VACCINATION 00:00:00 Hospital [facility] COVID-19 2020-07-07 Completed Methodis t MRNA VACCINATION 00:00:00 Hospital [facility] COVID-19 2020-07-07 Completed [facility]is t MRNA VACCINATION 00:00:00 Hospital Covid-19 Moderna 2020-07-07 Completed [...] YRS 00:00:00 [place] Med ical VACCINE Branch Tdap 2020-06-15 Completed [facility] 00:00:00 [facility] Tdap 2020-06-15 Completed [facility] 00:00:00 [facility] Tdap 2020-06-15 Completed Scientologist 00:00:00 [facility] Tdap 2020-06-15 Completed [facility]ologist 00:00:00 [facility] Tdap 2020-06-15 Completed Scientologist 00:00:00 [facility] TDAP 2020-06-15 Completed University of 00:00:00 [facility] TDAP 2020-06-15 Completed University of 00:00:00 [facility] TDAP 2020-06-15 Completed University of 00:00:00 [facility] TDAP 2020-06-15 Completed University of 00:00:00 [facility] TDAP 2020-06-15 Completed University of 00:00:00 [facility] TDAP 2020-06-15 Completed University of 00:00:00 [facility] TDAP 2020-06-15 Completed University of 00:00:00 [facility] TDAP 2020-06-15 Completed University of 00:00:00 [facility] Pneumococcal 2020-02-10 Completed [facility] Polysaccharide 00:00:00 Hospital Pneumococcal 2020-02-10 Completed [facility] Polysaccharide 00:00:00 Hospital Pneumococcal 2020-02-10 Completed [facility] Polysaccharide 00:00:00 Hospital Pneumococcal 2020-02-10 Completed [facility] Polysaccharide 00:00:00 Hospital Pneumococcal 2020-02-10 Completed [facility] Polysaccharide 00:00:00 Hospital Pneumococcal 2020-02-10 Completed University o [...] 00:00:00 [place] Med ical PPSV23 (PNEUMOVAX) Branch MODERNA COVID-19 Unknown Completed [facility]is [facility]RNA VACCINATION [facility] COVID-19 Unknown Completed [facility] COVID-19 Unknown Completed [facility]ACC[facility]ATION Hospital Pneumococcal Unknown Completed [facility] Polysaccharide Hospital Tdap Unknown Completed Scientologist [facility]19 Unknown Completed [facility]ACC[facility]ATION [facility]19 Unknown Completed [facility]19 Unknown Completed [facility]ACC[facility]ATION Hospital Pneumococcal Unknown Completed [facility]ologist Polysaccharide Hospital Tdap Unknown Completed Scientologist [facility]19 Unknown Completed [facility]19 Unknown Completed [facility] [place] [id number] Unknown Completed [facility] Hospital Pneumococcal Unknown Completed [facility] Polysaccharide Hospital Tdap Unknown Completed [facility] Hospital Vital Signs Vital Name Observation Time Observation Value Comments Source HEIGHT 2022-08-24 175.3 cm 07:51:00 WEIGHT 2022-08-24 93 kg 07:51:00 HEIGHT 2022-08-21 175.3 cm 18:08:00 WEIGHT 2022-08-21 92.987 kg 18:08:00 HEIGHT 2022-08-24 175.3 cm 07:51:00 WEIGHT 2022-08-24 93 kg 07:51:00 HEIGHT 2022-08-21 175.3 cm 18:08:00 WEIGHT 2022-08-21 92.987 kg 18:08:00 WEIGHT 2022-07-21 96.5 kg 06:00:00 WEIGHT 2022-07-17 95.754 kg 05:00:00 WEIGHT 2022-07-16 94.847 kg 05:00:00 WEIGHT 2022-07-15 93.486 kg 05:00:00 WEIGHT 2022-07-14 92.7 kg 06:05:00 HEIGHT 2022-07-13 177.8 cm 18:55:00 WEIGHT 2022-07-13 70.308 kg 18:55:00 WEIGHT 2022-07-21 96.5 kg 06:00:00 WEIGHT 2022-07-17 95.754 kg 05:00:00 WEIGHT 2022-07-16 94.847 kg 05:00:00 WEIGHT 2022-07-15 93.486 kg 05:00:00 WEIGHT 2022-07-14 92.7 kg 06:05:00 HEIGHT 2022-07-13 177.8 cm 18:55:00 WEIGHT 2022-07-13 70.308 kg 18:55:00 HEIGHT 2022-06-09 177.8 cm 15:00:00 WEIGHT 2022-06-09 68.947 kg 15:00:00 HEIGHT 2022-06-09 177.8 cm 15:00:00 WEIGHT 2022-06-09 68.947 kg 15:00:00 Systolic blood 2022-01-18 157 mm[Hg] University of pressure 16:38:00 [facility] Diastolic blood 2022-01-18 66 mm[Hg] University o f pressure 16:38:00 [facility] Heart rate 2022-01-18 59 /min [facility] 16:38:00 [facility] Body temperature 2022-01-18 36.56 Ana [facility] 16:38:00 [facility] Respiratory rate 2022-01-18 18 /min [facility] 16:38:00 [facility] Body height 2022-01-18 177.8 cm [facility] 16:38:00 [facility] Body weight 2022-01-18 74.39 kg [facility] 16:38:00 [facility] BMI 2022-01-18 23.53 kg/m2 [facility] 16:38:00 [facility] Oxygen saturation 2022-01-18 100 /min [facility] in Arterial blood 16:38:00 [facility] by Pulse oximetry [place] Heart rate 2022-08-28 60 /min [facility] 12:00:00 [facility] Systolic blood 2022-08-28 140 mm[Hg] [facility] pressure 11:22:00 [facility] Diastolic blood 2022-08-28 63 mm[Hg] [facility] pressure 11:22:00 [facility] Body temperature 2022-08-[address] [facility] 11[facility]22:00 [facility] Respiratory rate 2022-08-28 19 /min [facility] 11:22:00 [facility] Oxygen saturation 2022-08-28 100 /min [facility] in Arterial blood 11:22:00 [facility] nter by Pulse oximetry Systolic blood 2022-08-25 125 mm[Hg] [facility] pressure 04:05:00 [facility] Diastolic blood 2022-08-25 72 mm[Hg] [facility] pressure 04:05:00 [facility] Heart rate 2022-08-25 60 /min [facility] 04:05:00 [facility] Body temperature 2022-08-[address] [facility] 04:05:[facility] Respiratory rate 2022-08-25 16 /min [facility] 04:05:[facility] Oxygen saturation 2022-08-25 98 /min [facility] in Arterial blood 04:05:00 Medical Ce nter by Pulse oximetry Body height 2022-08-[address] [facility] 07:51:00 [facility] Center Body weight 2022-08-[address] [facility] 07:51:00 [facility] BMI 2022-08-24 30.28 kg/m2 [facility] 07:51:00 [facility] Systolic blood 2022-08-23 132 mm[Hg] [facility] pressure 10:00:00 [facility] Diastolic blood 2022-08-23 43 mm[Hg] [facility] pressure 10:00:00 [facility] Heart rate 2022-08-23 62 /min [facility] 10:00:00 [facility] Respiratory rate 2022-08-23 12 /min [facility] 10:[facility] Oxygen saturation 2022-08-23 100 /min [facility] in Arterial blood 10:00:00 Medical Ce nter by Pulse oximetry Body temperature 2022-08-[address] [facility] 08:00:[facility] Body height 2022-08-[address] [facility] 18:08:00 [facility] Body weight 2022-08-[address] [facility] 18:08:00 [facility] BMI 2022-08-21 30.27 kg/m2 [facility] 18:08:00 [facility] Center Systolic blood 2022-07-24 132 mm[Hg] [facility] pressure 11:00:00 [facility] Center Diastolic blood 2022-07-24 63 mm[Hg] [facility] pressure 11:00:00 [facility] Center Heart rate 2022-07-24 61 /min [facility] 11:00:00 [facility] Body temperature 2022-07-[address] [facility] 11:[facility] Respiratory rate 2022-07-24 18 /min [facility] 11:[facility] Oxygen saturation 2022-07-24 99 /min [facility] in Arterial blood 11:00:00 Medical nter by Pulse oximetry Heart rate 2022-07-24 61 /min [facility] 08:15:00 [facility] Respiratory rate 2022-07-24 18 /min [facility] 08:15:00 [facility] Oxygen saturation 2022-07-24 99 /min [facility] in Arterial blood 08:15:00 Medical nter by Pulse oximetry Systolic blood 2022-07-24 143 mm[Hg] [facility] pressure 08:00:00 [facility] Diastolic blood 2022-07-24 65 mm[Hg] [facility] pressure 08:00:00 [facility] Body temperature 2022-07-[address] [facility] 08[facility]00 [facility] Body weight 2022-07-[address] [facility] 06:00:00 [facility] BMI 2022-07-21 30.53 kg/m2 [facility] 06:00:00 [facility] Oxygen saturation 2022-07-20 97 /min [facility] in Arterial blood 11:33:00 [facility] nter by Pulse oximetry Heart rate 2022-07-20 60 /min [facility] 10:00:00 [facility] Body temperature 2022-07-[address] [facility] 07:50:00 [facility] Respiratory rate 2022-07-20 18 /min [facility] 07:50:00 [facility] Systolic blood 2022-07-20 120 mm[Hg] [facility] pressure 07:50:00 [facility] Diastolic blood 2022-07-20 58 mm[Hg] [facility] pressure 07:50:00 [facility] Systolic blood 2022-07-20 126 mm[Hg] [facility] pressure 04:00:00 [facility] Diastolic blood 2022-07-20 60 mm[Hg] [facility] pressure 04:00:00 [facility] Heart rate 2022-07-20 63 /min [facility] 04:00:00 [facility] Body temperature 2022-07-[address] [facility] 04:00:00 [facility] Respiratory rate 2022-07-20 19 /min [facility] 04:[facility] Oxygen saturation 2022-07-20 97 /min [facility] Arterial blood 04:00:00 Medical nter by Pulse oximetry Heart rate 2022-07-18 61 /min [facility] 08:52:00 [facility] Respiratory rate 2022-07-18 16 /min [facility] 08:52:00 [facility] Oxygen saturation 2022-07-18 98 /min [facility] Arterial blood 08:52:00 Medical nter by Pulse oximetry Systolic blood 2022-07-18 116 mm[Hg] [facility] pressure 07:44:00 [facility] Diastolic blood 2022-07-18 49 mm[Hg] [facility] pressure 07:44:00 [facility] Body temperature 2022-07-[address] [facility] 07:44:00 [facility] Systolic blood 2022-07-17 124 mm[Hg] [facility] pressure 14:49:00 [facility] Diastolic blood 2022-07-17 60 mm[Hg] [facility] pressure 14:49:00 [facility] Heart rate 2022-07-17 60 /min [facility] 14:49:00 [facility] Body temperature 2022-07-[address] [facility] 14:49:00 [facility] Respiratory rate 2022-07-17 19 /min [facility] 14:49:00 [facility] Oxygen saturation 2022-07-17 99 /min [facility] Arterial blood 14:49:00 Medical nter by Pulse oximetry Body weight 2022-07-[address] [facility] 05:00:00 [facility] BMI 2022-07-17 30.29 kg/m2 [facility] 05:00:00 [facility] Systolic blood 2022-07-14 131 mm[Hg] [facility] pressure 08:41:00 [facility] Diastolic blood 2022-07-14 61 mm[Hg] [facility] pressure 08:41:00 [facility] Heart rate 2022-07-14 62 /min [facility] 08:41:00 [facility] Body temperature 2022-07-[address] [facility] 08:41:00 [facility] Respiratory rate 2022-07-14 18 /min [facility] 08:41:00 [facility] Oxygen saturation 2022-07-14 96 /min [facility] Arterial blood 08:41:00 [facility] nter by Pulse oximetry Body weight 2022-07-[address] [facility] 06:05:00 [facility] BMI 2022-07-14 29.32 kg/m2 [facility] 06:05:00 [facility] Body height 2022-07-[address] [facility] 18:55:00 [facility] Systolic blood 2022-06-26 113 mm[Hg] [facility] pressure 19:15:00 [facility] Diastolic blood 2022-06-26 57 mm[Hg] [facility] pressure 19:15:00 [facility] Heart rate 2022-06-26 80 /min [facility] 19:15:00 [facility] Body temperature 2022-06-[address] [facility] 19:15:00 [facility] Respiratory rate 2022-06-26 19 /min [facility] 19:15:00 [facility] Oxygen saturation 2022-06-26 97 /min [facility] Arterial blood 19:15:00 [facility] nter by Pulse oximetry Body height 2022-06-[address] [facility] 15:00:00 [facility] Body weight 2022-06-[address] [facility] 15:00:00 [facility] BMI 2022-06-09 21.81 kg/m2 [facility] 15:00:00 [facility] Heart rate 2022-06-09 81 /min [facility] 04:46:00 [facility] Systolic blood 2022-06-09 140 mm[Hg] [facility] pressure 04:27:00 [facility] Diastolic blood 2022-06-09 63 mm[Hg] [facility] pressure 04:27:00 [facility] Body temperature 2022-06-[address] [facility] 04:27:00 [facility] Respiratory rate 2022-06-09 18 /min [facility] 04:27:00 [facility] Oxygen saturation 2022-06-09 100 /min [facility] Arterial blood 04:27:00 [facility] nter by Pulse oximetry Body height 2022-05-09 177.8 cm [facility] 21:23:00 [facility] Body weight 2022-05-09 68.947 kg [facility] 21:23:00 [facility] BMI 2022-05-09 21.81 kg/m2 [facility] 21:23:00 Hospital Systolic blood 2022-04-03 153 mm[Hg] [facility] pressure 16:41:00 Hospital Diastolic blood 2022-04-03 77 mm[Hg] [facility] pressure 16:41:00 Hospital Heart rate 2022-04-03 60 /min [facility] 16:41:00 Hospital Oxygen saturation 2022-03-22 100 /min [facility] in Arterial blood 19:51:00 [facility] by Pulse oximetry Body temperature 2022-02-02 36.17 Ana [facility] 19:21:00 Hospital Respiratory rate 2022-02-02 20 /min [facility] 19:21:00 Hospital Systolic blood 2020-02-09 158 mm[Hg] [place] [facility] 14:36:00 Position: Sitting Diastolic blood 2020-02-09 77 mm[Hg] [place] [facility] 14:36:00 Position: Sitting Body [...] Systolic blood 2019-10-23 130 mm[Hg] [place] [facility] 16:16:00 Position: Sitting Diastolic blood 2019-10-23 75 mm[Hg] [place] [place] [facility] 16:16:00 Position: Sitting Weight 2019-10-23 213.2 [lb_av] [facility] 16:16:00 Body mass index 2019-10-23 30.59 kg/m2 [facility] (BMI) [Ratio] 16:16:00 Heart Rate 2019-10-23 80 /min [facility] 16:16:00 Systolic blood 2019-06-26 186 mm[Hg] Location: [place]; [place] [facility] 11:26:00 Position: Sitting Diastolic blood 2019-06-26 84 mm[Hg] [place] [facility] 11:26:00 Position: Sitting Body height 2019-06-26 70 [in_us] [facility] 11:26:00 Weight 2019-06-26 205 [lb_av] [facility] 11:26:00 Body mass index 2019-06-26 29.41 kg/m2 [facility] (BMI) [Ratio] 11:26:00 Heart Rate 2019-06-26 69 /min Location: [place] [facility] 11:26:00 Radial; Quality: Normal Systolic blood 2019-05-27 146 mm[Hg] Location[place] [facility] 11:56:00 Position: Sitting Diastolic blood 2019-05-27 72 mm[Hg] Location: [place]; [place] [facility] 11:56:00 Position: Sitting Body height 2019-05-27 70 [in_us] [facility] 11:56:00 Weight 2019-05-27 204 [lb_av] [facility] 11:56:00 Body mass index 2019-05-27 29.27 kg/m2 [facility] (BMI) [Ratio] 11:56:00 Heart Rate 2019-05-27 90 /min [place]: [place] [facility] 11:56:00 Radial; Quality: Normal Procedures Procedure Date / Time Performing Clinician Source Performed POCT-GLUCOSE METER 2022-08-28 12:56:00 Danita Sousa [facility] POCT-GLUCOSE METER 2022-08-28 07:53:00 Danita Sousa [facility] BASIC METABOLIC PANEL 2022-08-28 04:32:00 Jayson Barr [facility] CBC (HEMOGRAM ONLY) 2022-08-28 04:32:00 Barr, [facility] MAGNESIUM 2022-08-28 04:32:00 [facility] POCT-GLUCOSE METER 2022-08-27 20:40:00 Lars [facility] HEMOGLOBIN AND HEMATOCRIT 2022-08-27 17:18:00 [facility] POCT-GLUCOSE METER 2022-08-27 17:17:00 [facility] POCT-GLUCOSE METER 2022-08-27 12:38:00 Lars [facility] POCT-GLUCOSE METER 2022-08-27 07:37:00 Lars [facility] BASIC METABOLIC PANEL 2022-08-27 05:25:00 [facility] CBC (HEMOGRAM ONLY) 2022-08-27 05:25:00 Cortney [facility] MAGNESIUM 2022-08-27 05:25:00 [facility] POCT-GLUCOSE METER 2022-08-26 20:49:00 Lars [facility] POCT-GLUCOSE METER 2022-08-26 16:58:00 Lars [facility] HEMOGLOBIN AND HEMATOCRIT 2022-08-26 16:25:00 [facility] POCT-GLUCOSE METER 2022-08-26 13:18:00 [facility] POCT-GLUCOSE METER 2022-08-26 09:04:00 Lars [facility] BASIC METABOLIC PANEL 2022-08-26 05:17[facility] 2022-08-26 05:17:00 Cortney [facility] MAGNESIUM 2022-08-26 05:17:00 [facility]PARE LEUKO-REDUCED RBC 2022-08-25 23:54:00 Cortney [facility] POCT-GLUCOSE METER 2022-08-25 20:49:00 Lars [facility] POCT-GLUCOSE METER 2022-08-25 17:32:00 [facility] HEMOGLOBIN AND HEMATOCRIT 2022-08-25 16:12:00 [facility] POCT-GLUCOSE METER 2022-08-25 12:09:00 Lars [facility] POCT-GLUCOSE METER 2022-08-25 07:58:00 [facility] POCT-GLUCOSE METER 2022-08-25 05:34:[address] [facility]ABOLIC PANEL 2022-08-25 04:36:00 [facility] CBC (HEMOGRAM ONLY) 2022-08-25 04:36:00 Cortney [facility] MAGNESIUM 2022-08-25 04:36:00 [facility] 2022-08-24 23:30:00 Shelly Gaffney [facility] POCT-GLUCOSE METER 2022-08-24 20:58:[address] [facility] POCT-GLUCOSE METER 2022-08-24 17:42:00 [facility] TRANSFUSE LEUKO-REDUCED 2022-08-24 14:55:00 [facility]LO[facility]LL[facility] PREPARE LEUKO-REDUCED RBC 2022-08-24 14:40:00 Cortney [facility] POCT-GLUCOSE METER 2022-08-24 14:21:00 [facility] RE[facility]ED[facility] - 2022-08-24 09:51:04 Waleska Burns [facility] TISSUE EXAM 2022-08-24 09:30:00 Waleska Burns [facility] REPORT OF PROCEDURE - 2022-08-24 08:51:45 Katy Waleska Gibbs [facility] ENDOSCOPY [facility] EGD 2022-08-24 08:19:00 Waleska Burnsjay [facility] (ESOPHAGOGASTRODUODENOSCO [facility]) COLONOSCOPY, WITH BIOPSY 2022-08-24 08:19:00 Katy Waleska Alamo brittny [facility] EGD 2022-08-24 08:00:00 KatyWaleska mendenhall Melecio [facility] (ESOPHAGOGASTRODUODENOSCO [facility]) COLONOSCOPY 2022-08-24 08:00:00 Katy Waleska Majano [facility] BASIC METABOLIC PANEL 2022-08-24 05:00:00 [facility] CBC (HEMOGRAM ONLY) 2022-08-24 05:00:00 [facility] MAGNESIUM 2022-08-24 05:00:00 [facility] POCT-GLUCOSE METER 2022-08-24 01:10:00 [facility] PREPARE LEUKO-REDUCED RBC 2022-08-23 23:54:00 Zeeshan Barry [facility] HEMOGLOBIN AND HEMATOCRIT 2022-08-23 20:40:00 Shelly Gaffney [facility] POCT-GLUCOSE METER 2022-08-23 20:11:00 [facility] POCT-GLUCOSE METER 2022-08-23 17:37:[address] [facility] PACEMAKER CHECK 2022-08-23 12:06:31 [facility] POCT-[facility]UCOSE METER 2022-08-23 11:30:00 [facility] LIMITED 2D ECHOCARDIOGRAM 2022-08-23 09:58:00 [facility] HEMO[facility] HEMATOCRIT 2022-08-23 08:16:00 Shelly Gaffney [facility] POCT-GLUCOSE METER 2022-08-23 07:05:00 [facility]vivianaAnaya [facility] (HEMO[facility] ONLY) 2022-08-23 04:08:00 RonnievivianaRamsey cerrato [facility] BASIC METABOLIC PANEL 2022-08-23 04:08:00 RonnievivianaAnaya [facility] TRANSFUSE LEUKO-REDUCED 2022-08-22 23:41:00 Jhonny Lorencorine [facility] RED BLOOD CELLS [facility] PREPARE LEUKO-REDUCED RBC 2022-08-22 23:23:00 JhonnyZeeshan montgomery [facility] HEMOGLOBIN AND HEMATOCRIT 2022-08-22 20:36:00 Shelly Gaffney [facility] POCT-GLUCOSE METER 2022-08-22 20:01:00 [facility]SF[facility] LEUKO-REDUCED 2022-08-22 12:38:00 Jolly Ash se [facility] PREPARE LEUKO-REDUCED RBC 2022-08-22 12:19:00 Jolly Ash [facility] POCT-GLUCOSE METER 2022-08-22 11:43:00 [facility]iedmont augustaviviana [facility] LIMITED 2D ECHOCARDIOGRAM 2022-08-22 10:41:17 Mariela Guevara [facility] HEMOGLOBIN AND HEMATOCRIT 2022-08-22 09:53:00 Shelly Gaffney [facility] POCT-GLUCOSE METER 2022-08-22 06:21:00 Luh Hampton [facility] TRANSFUSE LEUKO-REDUCED 2022-08-22 04:16:00 Jolly Ash se [facility] TRANSFUSE LEUKO-REDUCED 2022-08-22 01:15:00 Jolly Ash se [facility] BASIC METABOLIC PANEL 2022-08-22 01:12:00 Rajivwe Shelly [facility] IRON, TIBC, % SAT. 2022-08-22 01:12:00 [facility] (WITHOUT FERR[facility]IN) [facility] 2022-08-22 01:12:00 [facility] HAPTOGLOBIN 2022-08-22 01:12:00 [facility] B-TYPE NATRIURETIC FACTOR 2022-08-21 23:28:00 Davin Win [facility] (BNP) [facility] TYPE AND SCREEN, 2022-08-21 20:56:00 Jolly Ash [facility] AUTOMATED [facility] CBC W/PLT COUNT & AUTO 2022-08-21 19:15:00 Ashok Rebollar [facility] PT/APTT 2022-08-21 19:15:00 Ashok Rebollar [facility] COMPREHENSIVE METABOLIC 2022-08-21 19:15:00 Ashok Rebollar [facility] PANEL [facility] PERIPHERAL BLOOD SMEAR - 2022-08-21 19:15:00 [facility] PATHOLOGIST REVIEW [facility] LACTATE DEHYDROGENASE 2022-08-21 19:15:00 [facility] RETICULOCYTE COUNT 2022-08-21 19:15:00 [facility] CBC W/PLT COUNT & AUTO 2022-08-21 19:15:00 Ashok Rebollar [facility] DIFFERENTIAL [facility] ECG 12-LEAD 2022-08-21 18:12:21 Unknown, Hl7 [facility] ECG 12-LEAD 2022-08-21 18:12:21 Unknown, Hl7 [facility] ECG 12-LEAD 2022-08-21 18:12:00 Unknown, Hl7 [facility] EKG-SCANNED 2022-08-21 00:00:00 Provider [facility] es [facility] PERMANENT LAB REPORT - 2022-08-21 00:00:00 Provider [facility] SCAN Scanning [facility] POCT-GLUCOSE METER 2022-07-24 11:47:00 Fara [facility] POCT-GLUCOSE METER 2022-07-24 08:25:00 Fara [facility] BASIC METABOLIC PANEL 2022-07-24 04:37:00 [facility] 2022-07-24 04:37:00 Raya Armas [facility] MAGNESIUM 2022-07-24 04:37:00 Raya Armas [facility] CBC W/PLT COUNT & AUTO 2022-07-24 04:37:00 Raya Armas [facility] CBC W/PLT COUNT & AUTO 2022-07-24 04:37:00 [facility] POCT-GLUCOSE METER 2022-07-23 21:21:00 Fara [facility] POCT-GLUCOSE METER 2022-07-23 16:40:00 Fara [facility] POCT-GLUCOSE METER 2022-07-23 12:19:00 FaraGreater [facility] POCT-GLUCOSE METER 2022-07-23 08:04:00 Fara [facility] XR CHEST 1 VIEW PORTABLE 2022-07-23 06:53:00 Makeda Akins [facility] BASIC METABOLIC PANEL 2022-07-23 04:52:00 Raya Armas [facility] HEPATIC FUNCTION PANEL 2022-07-23 04:52:00 Raya Armas [facility] MAGNESIUM 2022-07-23 04:52:00 Raya Armas [facility] POCT-GLUCOSE METER 2022-07-23 04:49:00 Fara [facility] CBC W/PLT COUNT & AUTO 2022-07-23 04:11:00 Raya Armas [facility] CBC W/PLT COUNT & AUTO 2022-07-23 04:11:00 Raya Armas [facility] POCT-GLUCOSE METER 2022-07-22 21:21:00 Bertramnahed [facility] POCT-GLUCOSE METER 2022-07-22 16:40:00 Bertramnahed [facility] POCT-GLUCOSE METER 2022-07-22 11:35:00 Cricketcathy [facility] POCT-GLUCOSE METER 2022-07-22 07:48:00 Fara [facility] BASIC METABOLIC PANEL 2022-07-22 04:49:00 Chanda [facility] HEPATIC FUNCTION PANEL 2022-07-22 04:49:00 Raya Armas [facility] MAGNESIUM 2022-07-22 04:49:00 Raya Armas [facility] CBC W/PLT COUNT & AUTO 2022-07-22 04:49:00 Raya Armas [facility] CBC W/PLT COUNT & AUTO 2022-07-22 04:49:00 Chanda [facility] POCT-GLUCOSE METER 2022-07-21 21:13:00 Fara [facility] POCT-GLUCOSE METER 2022-07-21 16:31:00 Cricketcathy [facility] POCT-GLUCOSE METER 2022-07-21 11:46:00 Cricketcathy [facility] POCT-GLUCOSE METER 2022-07-21 07:53:00 Fara [facility] BASIC METABOLIC PANEL 2022-07-21 04:40:00 Raya Armas [facility] HEPATIC FUNCTION PANEL 2022-07-21 04:40:00 Raya Armas [facility] MAGNESIUM 2022-07-21 04:40:00 Raya Armas [facility] CBC W/PLT COUNT & AUTO 2022-07-21 04:40:00 Raya Armas [facility] CBC W/PLT COUNT & AUTO 2022-07-21 04:40:00 Raya Armas [facility] POCT-GLUCOSE METER 2022-07-21 04:34:00 Fara [facility] PREPARE RBC 2022-07-20 23:54:[address] [facility] POCT-GLUCOSE METER 2022-07-20 21:40:00 [facility] POCT-GLUCOSE METER 2022-07-20 16:22:00 [facility] SARS-COV2/RT[facility] ([facility] & 2022-07-20 12:06:00 Cricketkaiser [facility] POCT-GLUCOSE METER 2022-07-20 11:42:00 FaraGreater [facility] POCT-GLUCOSE METER 2022-07-20 08:07:00 Fara [facility] MAGNESIUM 2022-07-20 05:42:00 Raya Armas [facility] CBC W/PLT COUNT & AUTO 2022-07-20 05:42:00 Raya Armas [facility] COMPREHENSIVE METABOLIC 2022-07-20 05:42:00 Bharati Armas [facility] CBC W/PLT COUNT & AUTO 2022-07-20 05:42:00 Raya Armas [facility] POCT-GLUCOSE METER 2022-07-20 03:25:00 Fara [facility] POCT-GLUCOSE METER 2022-07-19 21:41:00 FaraGreater [facility] POCT-GLUCOSE METER 2022-07-19 16:20:00 [facility] CBC (HEMOGRAM ONLY) 2022-07-19 14:27:00 Raya Armas [facility] POCT-GLUCOSE METER 2022-07-19 13:19:00 [facility] TRANSFUSE LEUKO-REDUCED 2022-07-19 12:31:00 Tri Weber [facility] RED BLOOD CELLS [facility] PREPARE RBC 2022-07-19 12:06:00 [facility] TRANSFUSE LEUKO-REDUCED 2022-07-19 11:40:00 Tia Tri [facility] BLOOD CELLS [facility] TISSUE EXAM 2022-07-19 11:18:00 [facility] AMPUTATION, BELOW KNEE 2022-07-19 10:04:00 BassemJun arevalo [facility] APTT 2022-07-19 03:41:00 HaileyTyree [facility] BASIC METABOLIC PANEL 2022-07-19 03:41:00 HaileyTyree [facility] HEPATIC FUNCTION PANEL 2022-07-19 03:41:00 [facility] MAGNESIUM 2022-07-19 03:41:00 Raya Armas [facility] CBC W/PLT COUNT & AUTO 2022-07-19 03:41:00 Chanda [facility] IRON, TIBC, % SAT. 2022-07-19 03:41:00 Tashi, [facility] (WITHOUT FERRITIN) [facility] 2022-07-19 03:41:00 Tashi [facility] PROTHROMBIN TIME/INR 2022-07-19 03:41:00 Bert Loya [facility] CBC W/PLT COUNT & AUTO 2022-07-19 03:41:00 [facility] DIFFERENTIAL [facility] PREPARE LEUKO-REDUCED RBC 2022-07-18 23:54:00 Vania Ellis [facility] POCT-GLUCOSE METER 2022-07-18 21:25:00 [facility] POCT-GLUCOSE METER 2022-07-18 16:29:00 [facility] APTT 2022-07-18 15:05:00 Hailey-Tyree, [facility] POCT-GLUCOSE METER 2022-07-18 12:09:00 [facility] POCT-GLUCOSE METER 2022-07-18 07:46:00 [facility] APTT 2022-07-18 07:37:00 Chanda [facility] BASIC METABOLIC PANEL 2022-07-18 01:40:00 Chanda [facility] HEPATIC FUNCTION PANEL 2022-07-18 01:40:00 [facility] MAGNESIUM 2022-07-18 01:40:00 Chanda [facility] CBC W/PLT COUNT & AUTO 2022-07-18 01:40:00 Chanda [facility] CBC W/PLT COUNT & AUTO 2022-07-18 01:40:00 [facility] APTT 2022-07-18 01:39:00 Chanda [facility] POCT-GLUCOSE METER 2022-07-17 22:28:00 [facility] APTT 2022-07-17 18:27:00 Meri Núñez [facility] TRANSFUSE LEUKO-RED RBC 2022-07-17 18:15:00 Caleb Vania [facility] PREPARE LEUKO-REDUCED RBC 2022-07-17 18:04:00 Vania Ellis [facility] XR CHEST 1 VIEW PORTABLE 2022-07-17 17:01:00 Makeda Akins [facility] POCT-GLUCOSE METER 2022-07-17 16:36:00 [facility] TRANSFUSE LEUKO-RED RBC 2022-07-17 13:49:00 Vania Ellis [facility] PREPARE LEUKO-REDUCED RBC 2022-07-17 13:39:00 Caleb, Vania [facility] APTT 2022-07-17 12:16:00 Chanda [facility] POCT-GLUCOSE METER 2022-07-17 11:07:00 [facility] TYPE AND SCREEN, 2022-07-17 10:26:00 [facility] AUTOMATED [facility] POCT-GLUCOSE METER 2022-07-17 07:13:00 [facility] SODIUM, RANDOM URINE 2022-07-17 07:12:00 Elizabeth [facility] CREATININE, RANDOM URINE 2022-07-17 07:12:00 Elizabeth Rivera Louise [facility] URINALYSIS W/ MICROSCOPIC 2022-07-17 07:12:00 Rivera Johnson [facility] BASIC METABOLIC PANEL 2022-07-17 05:01:00 Chanda [facility] HEPATIC FUNCTION PANEL 2022-07-17 05:01:00 Chanda [facility] MAGNESIUM 2022-07-17 05:01:00 Chanda [facility] CBC W/PLT COUNT & AUTO 2022-07-17 05:01:00 Chanda [facility] CREATINE KINASE (CK) 2022-07-17 05:01:00 Rivera Johnson [facility] APTT 2022-07-17 05:01:00 Chanda [facility] POCT-GLUCOSE METER 2022-07-17 05:01:00 Lala [facility] CBC W/PLT COUNT & AUTO 2022-07-17 05:01:00 [facility] APTT 2022-07-16 21:13:00 Chanda [facility] POCT-GLUCOSE METER 2022-07-16 20:07:00 [facility] POCT-GLUCOSE METER 2022-07-16 16:37:00 [facility] APTT 2022-07-16 12:55:00 Chanda [facility] POCT-GLUCOSE METER 2022-07-16 11:46:00 [facility] POCT-GLUCOSE METER 2022-07-16 07:40:00 [facility] APTT 2022-07-16 03:18:00 Chanda [facility] POCT-GLUCOSE METER 2022-07-16 03:17:00 [facility] BASIC METABOLIC PANEL 2022-07-16 01:09:00 Chanda [facility] HEPATIC FUNCTION PANEL 2022-07-16 01:09:00 Ch[facility] MAGNESIUM 2022-07-16 01:09:00 Chanda [facility] CBC W/PLT COUNT & AUTO 2022-07-16 01:09:00 Chanda [facility] APTT 2022-07-16 01:09:00 Ch[facility] CBC W/PLT COUNT & AUTO 2022-07-16 01:09:00 [facility]-GLUCOSE METER 2022-07-15 20:20:00 [facility] APTT 2022-07-15 17:07:00 Chanda [facility] POCT-GLUCOSE METER 2022-07-15 16:16:00 [facility] POCT-GLUCOSE METER 2022-07-15 11:52:00 [facility] APTT 2022-07-15 09:47:00 Chanda [facility] POCT-GLUCOSE METER 2022-07-15 07:57:00 [facility] 2022-[facility]-15 07:42:00 Chanda [facility] BASIC METABOLIC PANEL 2022-07-15 00:49:00 Chanda [facility] HEPATIC FUNCTION PANEL 2022-07-15 00:49:00 Chanda [facility] MAGNESIUM 2022-07-15 00:49:00 Chanda [facility] APTT 2022-07-15 00:49:00 Chanda [facility] POCT-GLUCOSE METER 2022-07-14 20:35:00 [facility] POCT-GLUCOSE METER 2022-07-14 16:32:00 [facility] APTT 2022-07-14 15:40:00 Chanda [facility] APTT 2022-07-14 13:21:00 Chanda [facility] POCT-GLUCOSE METER 2022-07-14 12:04:00 [facility] POCT-GLUCOSE METER 2022-07-14 10:19:00 [facility] BLOOD CULTURE 2022-07-14 06:15:00 Wil[facility] CBC (HEMOGRAM ONLY) 2022-07-14 06:07:00 [facility] BASIC METABOLIC PANEL 2022-07-14 06:07:00 Chanda [facility] HEPATIC FUNCTION PANEL 2022-07-14 06:07:00 Chanda [facility] MAGNESIUM 2022-07-14 06:07:00 Chanda [facility] APTT 2022-07-14 06:07:00 Chanda [facility] BLOOD CULTURE 2022-07-14 06:07:00 [facility] ECG 12-LEAD 2022-07-14 05:34:46 Unknown, Hl7 [facility] ECG 12-LEAD 2022-07-14 05:34:46 Unknown, Hl7 [facility] HC ARTERIAL DOPPLER LEG 2022-07-13 22:25:00 [facility] COMPREHENSIVE METABOLIC 2022-07-13 20:16:00 Reno Kong [facility] CBC W/PLT COUNT & AUTO 2022-07-13 20:16:00 Dilan [facility] PT/APTT 2022-07-13 20:16:00 Dilan [facility] TYPE AND SCREEN, 2022-07-13 20:16:00 Dilan [facility] AUTOMATED [facility] CBC W/PLT COUNT & AUTO 2022-07-13 20:16:00 Dilan [facility] ECG 12-LEAD 2022-07-13 19:05:13 Unknown, Hl7 [facility] ECG 12-LEAD 2022-07-13 19:05:13 [facility] ARRYTHMIA IMPLANT REPORT 2022-07-13 00:00:00 Provider, Mannie Gibbs [facility] EKG-SCANNED 2022-07-13 00:00:00 Provider, Mannie [facility] PHOSPHORUS 2022-06-26 04:15:00 Adrián [facility] MAGNESIUM 2022-06-26 04:15:00 Rivera Sampson [facility] BASIC METABOLIC PANEL 2022-06-26 04:15:00 Adrián [facility] CBC (HEMOGRAM ONLY) 2022-06-25 05:25:00 Jackie Mayen [facility] PHOSPHORUS 2022-06-25 05:21:00 Rivera Sampson [facility] MAGNESIUM 2022-06-25 05:21:00 Adrián [facility] BASIC METABOLIC PANEL 2022-06-25 05:21:00 Rivera Sampson [facility] POCT-GLUCOSE METER 2022-06-24 21:06:00 Jackie Mayen [facility] POTASSIUM 2022-06-23 11:38:00 Sebastien [facility] BASIC METABOLIC PANEL 2022-06-22 11:30:00 Rivera Sampson [facility] CBC W/PLT COUNT & AUTO 2022-06-21 03:44:00 [facility]IC METABOLIC PANEL 2022-06-21 03:44:00 [facility] W/PLT COUNT & AUTO 2022-06-21 03:44:00 Yair [facility] CBC W/PLT COUNT & AUTO 2022-06-20 05:07:00 Yair [facility] BASIC METABOLIC PANEL 2022-06-20 05:07:00 Yair [facility] [place] CBC W/PLT COUNT & AUTO 2022-06-20 05:07:00 [facility] CBC W/PLT COUNT & AUTO 2022-06-19 06:02:00 Yair [facility] MAGNESIUM 2022-06-19 06:02:00 [facility] COMPREHENSIVE METABOLIC 2022-06-19 06:02:00 [facility] B-TYPE NATRIURETIC FACTOR 2022-06-19 06:02:00 Mina Quevedo [facility] (BNP) [facility] CREATINE KINASE (CK) 2022-06-19 06:02:00 [facility] APTT 2022-06-19 06:02:00 Jessica Dove [facility] CBC W/PLT COUNT & AUTO 2022-06-19 06:02:00 [facility] BASIC METABOLIC PANEL 2022-06-18 22:24:00 [facility] APTT 2022-06-18 17:26:[address] [facility] CBC W/PLT COUNT & AUTO 2022-06-18 04:15:00 Brody Mazariegos [facility] CALCIUM, IONIZED 2022-06-18 04:15:00 [facility] COMPREHENSIVE METABOLIC 2022-06-18 04:15:00 [facility] MAGNESIUM 2022-06-18 04:15:00 Sae [facility] PHOSPHORUS 2022-06-18 04:15:00 [facility] APTT 2022-06-18 04:15:00 [facility] CBC W/PLT COUNT & AUTO 2022-06-18 04:15:00 Brody Mazariegos [facility] PREPARE LEUKO-REDUCED RBC 2022-06-17 23:54:00 Brody Mazariegos [facility] APTT 2022-06-17 23:23:00 [facility] APTT 2022-06-17 18:57:00 [facility] CBC W/PLT COUNT & AUTO 2022-06-17 06:31:00 Brody Mazariegos [facility] APTT 2022-06-17 06:31:00 [facility] CBC W/PLT COUNT & AUTO 2022-06-17 06:31:00 Brody Mazariegos [facility] BASIC METABOLIC PANEL 2022-06-17 02:17:00 Brody Mazariegos [facility] APTT 2022-06-17 02:17:00 [facility] APTT 2022-06-16 21:31:00 [facility] TRANSFUSE LEUKO-REDUCED 2022-06-16 13:44:00 Brody Mazariegos [facility] RED BLOOD CELLS [facility] CBC W/PLT COUNT & AUTO 2022-06-16 09:19:00 Louis Villatoro [facility] APTT 2022-06-16 09:19:00 [facility] TYPE AND SCREEN, 2022-06-16 09:19:[address] [facility] CBC W/PLT COUNT & AUTO 2022-06-16 09:19:00 Louis Villatoro [facility] CBC W/PLT COUNT & AUTO 2022-06-16 03:31:00 Jocelyn [facility]iegosexcel[facility] BASIC METABOLIC PANEL 2022-06-16 03:31:00 Jocelyn Mazariegosexcela health [facility] APTT 2022-06-16 03:31:00 [facility] CREATINE KINASE (CK) 2022-06-16 03:31:00 Mariela Jiménez [facility] CBC W/PLT COUNT & AUTO 2022-06-16 03:31:00 Brody Mazariegos [facility] APTT 2022-06-15 23:07:00 Mariela Jiménez [facility] APTT 2022-06-15 18:14:[address] [facility] APTT 2022-06-15 05:42:00 Ramsey Holland [facility] CBC W/PLT COUNT & AUTO 2022-06-15 05:42:00 Jocelyn [facility]osexcel[facility] BASIC METABOLIC PANEL 2022-06-15 05:42:00 Jocelyn Mazariegosexcela health [facility] CBC W/PLT COUNT & AUTO 2022-06-15 05:42:00 [facility] PREPARE LEUKO-REDUCED RBC 2022-06-14 23:54:00 Otis Holland [facility] APTT 2022-06-14 15:58:[address] [facility] VENOUS DOPPLER LEGS 2022-06-14 14:13:[address] [facility] HEPARIN ANTIBODY 2022-06-14 13:03:00 Mariela Jiménez [facility] CBC W/PLT COUNT & AUTO 2022-06-14 02:06:00 Ramsey Holland [facility] COMPREHENSIVE METABOLIC 2022-06-14 02:06:00 Tri Holland [facility] CREATINE KINASE (CK) 2022-06-14 02:06:00 Ramsey Holland [facility] B-TYPE NATRIURETIC FACTOR 2022-06-14 02:06:00 Makeda Akins [facility] (BNP) [facility] APTT 2022-06-14 02:06:00 Mariela Jiménez [facility] CBC W/PLT COUNT & AUTO 2022-06-14 02:06:00 Ramsey Holland [facility] (CELLAVISION MANUAL DIFF) 2022-06-14 02:06:00 Otis Holland [facility] APTT 2022-06-13 21:33:00 Mariela Jiménez [facility] APTT 2022-06-13 14:51:00 Mariela Jiménez [facility] TRANSFUSE LEUKO-REDUCED 2022-06-13 11:22:00 Tri Holland [facility] RED BLOOD CELLS [facility] XR CHEST 1 VIEW PORTABLE 2022-06-13 10:15:00 Mariela Jiménez [facility] ECG 12-LEAD 2022-06-13 09:37:49 [facility] ECG 12-LEAD 2022-06-13 09:37:49 Unknown, Hl7 Doctor [facility] TYPE AND SCREEN, 2022-06-13 08:07:00 Ramsey Holland [facility] AUTOMATED [facility] ANTIBODY SCREEN 2022-06-13 08:07:00 Ramsey Holland [facility] CBC W/PLT COUNT & AUTO 2022-06-13 05:23:00 Ramsey Holland [facility] COMPREHENSIVE METABOLIC 2022-06-13 05:23:00 Tri Holland [facility] CREATINE KINASE (CK) 2022-06-13 05:23:00 Ramsey Holland [facility] APTT 2022-06-13 05:23:00 Ramsey Holland [facility] CBC W/PLT COUNT & AUTO 2022-06-13 05:23:00 Ramsey Holland [facility] POCT-GLUCOSE METER 2022-06-12 16:09:00 [facility] HEMOGLOBIN AND HEMATOCRIT 2022-06-12 16:00:00 Cellkaleigh [facility] CREATINE KINASE (CK) 2022-06-12 16:00:00 Celli [facility] POTASSIUM 2022-06-12 16:00:00 Makeda Akins [facility] HEMOGLOBIN AND HEMATOCRIT 2022-06-12 12:21:00 Celli [facility] CREATINE KINASE (CK) 2022-06-12 12:21:00 CellDevon [facility]East [facility] APTT 2022-06-12 12:21:00 Jessica Dove [facility] POCT-GLUCOSE METER 2022-06-12 11:00:00 Ramsey Holland [facility] HEMOGLOBIN AND HEMATOCRIT 2022-06-12 07:57:00 Cell [facility] CREATINE KINASE (CK) 2022-06-12 07:57:00 Cell [facility] BASIC METABOLIC PANEL 2022-06-12 07:57:00 Makeda Akins [facility] POCT-GLUCOSE METER 2022-06-12 07:26:00 [facility] APTT 2022-06-12 03:58:[address] [facility] CBC W/PLT COUNT & AUTO 2022-06-12 02:05:00 Ramsey Holland [facility] COMPREHENSIVE METABOLIC 2022-06-12 02:05:00 Tri Holland [facility] PROTHROMBIN TIME/INR 2022-06-12 02:05:00 Ramsey Holland [facility] MAGNESIUM 2022-06-12 02:05:00 Ramsey Holland [facility] PHOSPHORUS 2022-06-12 02:05:00 Ramsey Holland [facility] CREATINE KINASE (CK) 2022-06-12 02:05:00 Ramsey Holland [facility] APTT 2022-06-12 02:05:[address] [facility] CBC W/PLT COUNT & AUTO 2022-06-12 02:05:00 Ramsey Holland [facility] CREATINE KINASE (CK) 2022-06-11 22:38:00 Mariela Cantor [facility] APTT 2022-06-11 18:36:00 [facility] POCT-GLUCOSE METER 2022-06-11 12:08:00 [facility] APTT 2022-06-11 11:56:00 [facility] ARTERIOGRAM, PERIPHERAL 2022-06-11 09:15:00 Jun Montoya [facility] BASIC METABOLIC PANEL 2022-06-11 05:31:00 Louis Villatoro [facility] CBC W/PLT COUNT & AUTO 2022-06-11 05:31:00 Louis Villatoro [facility] APTT 2022-06-11 05:31:00 Louis Villatoro [facility] PROTHROMBIN TIME/INR 2022-06-11 05:31:00 Louis Villatoro [facility] FIBRINOGEN 2022-06-11 05:31:00 [facility] CREATINE KINASE (CK) 2022-06-11 05:31:00 Makeda Akins [facility] CBC W/PLT COUNT & AUTO 2022-06-11 05:31:00 Louis Villatoro [facility] URINALYSIS W/ MICROSCOPIC 2022-06-11 03:17:00 Makeda Akins izaiah [facility] CBC W/PLT COUNT & AUTO 2022-06-10 23:41:00 Louis Villatoro [facility] APTT 2022-06-10 23:41:00 Louis Villatoro [facility] PROTHROMBIN TIME/INR 2022-06-10 23:41:00 Louis Villatoro [facility] FIBRINOGEN 2022-06-10 23:41:00 [facility] CBC W/PLT COUNT & AUTO 2022-06-10 23:41:00 Louis Villatoro [facility] POCT-GLUCOSE METER 2022-06-10 17:43:00 CivunRamsey charles [facility] CBC W/PLT COUNT & AUTO 2022-06-10 17:40:00 Louis Villatoro [facility] APTT 2022-06-10 17:40:00 Louis Villatoro [facility] PROTHROMBIN TIME/INR 2022-06-10 17:40:00 Louis Villatoro [facility] FIBRINOGEN 2022-06-10 17:40:00 [facility] HEPATIC FUNCTION PANEL 2022-06-10 17:40:00 Makeda Akinskarolina [facility] CBC W/PLT COUNT & AUTO 2022-06-10 17:40:00 Louis Villatoro [facility] POCT-GLUCOSE METER 2022-06-10 12:40:00 Ramsey Holland [facility] CBC W/PLT COUNT & AUTO 2022-06-10 11:29:00 Louis Villatoro [facility] APTT 2022-06-10 11:29:00 Louis Villatoro [facility] PROTHROMBIN TIME/INR 2022-06-10 11:29:00 Shauna Louis [facility] FIBRINOGEN 2022-06-10 11:29:00 [facility] CBC W/PLT COUNT & AUTO 2022-06-10 11:29:00 Louis Villatoro [facility] BASIC METABOLIC PANEL 2022-06-10 06:28:00 Shauna Louis [facility] PHOSPHORUS 2022-06-10 06:28:00 Makeda Akins [facility] CREATINE KINASE (CK) 2022-06-10 06:28:00 Makeda Akins [facility] CBC W/PLT COUNT & AUTO 2022-06-10 05:38:00 Louis Villatoro [facility] APTT 2022-06-10 05:38:00 ShaunaLouis [facility] PROTHROMBIN TIME/INR 2022-06-10 05:38:00 Louis Villatoro [facility] FIBRINOGEN 2022-06-10 05:38:00 [facility] CBC W/PLT COUNT & AUTO 2022-06-10 05:38:00 Shauna Louis [facility] CBC W/PLT COUNT & AUTO 2022-06-09 23:42:00 Louis Villatoro [facility] APTT 2022-06-09 23:42:00 Shauna, Louis [facility] PROTHROMBIN TIME/INR 2022-06-09 23:42:00 Shauna, Louis [facility] FIBRINOGEN 2022-06-09 23:42:00 Hudefi [facility] CBC W/PLT COUNT & AUTO 2022-06-09 23:42:00 Louis Villatoro [facility] CREATINE KINASE (CK) 2022-06-09 19:16:00 [facility] W/PLT COUNT & AUTO 2022-06-09 19:16:00 Louis Villatoro [facility] APTT 2022-06-09 19:16:00 [facility] PROT[facility]OM[facility] TIME/INR 2022-06-09 19:16:00 Shauna [facility] FIBRINOGEN 2022-06-09 19:16:00 Bienvenido Sher [facility] CBC W/PLT COUNT & AUTO 2022-06-09 19:16:00 [facility] ARTERIOGRAM, PERIPHERAL 2022-06-09 15:00:00 Jun Montoya [facility] ARTERIOGRAM, PERIPHERAL 2022-06-09 12:18:00 Bonnie Flores [facility] ECG 12-LEAD 2022-06-09 11:28:12 ClifunRamsey charles [facility] ECG 12-LEAD 2022-06-09 11:28:12 Unknown, Hl7 [facility] APTT 2022-06-09 08:09:00 Margie [facility] TSH/FREE T4 IF INDICATED 2022-06-09 07:12:00 [facility] IRON, TIBC, % SAT. 2022-06-09 07:12:00 Makeda Akins [facility] 2022-06-09 07:12:00 [facility] HEMOGLOBIN A1C 2022-06-09 04:52:00 [facility] LIPID PANEL 2022-06-09 01:50:00 [facility] BASIC METABOLIC PANEL 2022-06-09 01:50:00 Efrain Cordero [facility] APTT 2022-06-09 01:17:00 Louis Villatoro [facility] BASIC METABOLIC PANEL 2022-06-08 20:21:00 Makeda Akinshood C [facility] CREATINE KINASE (CK) 2022-06-08 20:21:00 Makeda Akinskarolina [facility] APTT 2022-06-08 18:02:00 Louis Villatoro [facility] URINALYSIS W/ REFLEX 2022-06-08 14:48:00 Lashae Fowler [facility] URINE CULTURE [facility] ICD CHECK 2022-06-08 14:40:16 Lashae Fowler [facility] B-TYPE NATRIURETIC FACTOR 2022-06-08 12:27:00 [facility] APTT 2022-06-08 11:20:00 Mariela Cantor Janie [facility] 2D ECHO W/ DOPPLER 2022-06-08 07:40:20 Mariela Cantor [facility] (CW/PW/COLOR) [facility] ECG 12-LEAD 2022-06-08 05:33:53 Unknown, 7 [facility] ECG 12-LEAD 2022-06-08 05:33:53 Unknown, [address] ECG 12-LEAD 2022-06-08 05:33:28 Lashae Fowler [facility] ECG 12-LEAD 2022-06-08 05:33:28 Unknown, 7 [facility] ECG 12-LEAD 2022-06-08 05:32:56 Unknown, 7 [facility] ECG 12-LEAD 2022-06-08 05:32:07 Unknown, [address] ECG 12-LEAD 2022-06-08 05:32:07 Unknown, [address] ECG 12-LEAD 2022-06-08 05:31:00 Unknown, [address] ECG 12-LEAD 2022-06-08 05:29:56 Unknown, Hl7 Doctor [facility] ECG 12-LEAD 2022-06-08 05:29:11 Unknown, Hl7 Doctor [facility] ECG 12-LEAD 2022-06-08 05:28:17 Ramsey Holland [facility] ECG 12-LEAD 2022-06-08 05:28:17 Unknown, Hl7 Doctor [facility] ABORH, MANUAL 2022-06-08 05:06:00 Marcie Dave [facility] XR ABDOMEN/KUB 1 VIEW 2022-06-08 04:43:00 Mariela Cantor [facility] PORTABLE [facility] XR CHEST 1 VIEW PORTABLE 2022-06-08 04:42:00 Mariela Cantor ea [facility] APTT 2022-06-08 04:12:00 Mariela Cantor [facility] TYPE AND SCREEN, 2022-06-08 04:12:00 Mariela Cantor [facility] AUTOMATED [facility] CBC W/PLT COUNT & AUTO 2022-06-08 03:22:00 Lashae Fowler I [facility] PROTHROMBIN TIME/INR 2022-06-08 03:22:00 Lashae Fowler [facility] LACTIC ACID, VENOUS 2022-06-08 03:22:00 [facility]IVE METABOLIC 2022-06-08 03:22:[address] [facility] APTT 2022-06-08 03:22:00 Lashae Fowler [facility] FIBRINOGEN 2022-06-08 03:22:00 Mariela Cantor [facility] CBC W/PLT COUNT & AUTO 2022-06-08 03:22:00 Lashae Fowler I [facility] ARRYTHMIA IMPLANT REPORT 2022-06-08 00:00:00 ProviderMannie [facility] CARDIAC CATH REPORT - 2022-06-08 00:00:00 Provider, Default [facility] EKG-SCANNED 2022-06-08 00:00:00 Provider, Default [facility] CBC WITH PLATELET AND 2022-04-03 17:39:00 [facility] DIFFERENTIAL SEDIMENTATION RATE 2022-04-03 17:39:00 [facility] DOUBLE-STRANDED DNA 2022-04-03 17:39:00 [facility] (DSDNA) ANTIBODIES, CRITHIDIA C-REACTIVE PROTEIN 2022-04-03 17:39:00 [facility] COMPREHENSIVE METABOLIC 2022-04-03 17:39:00 [facility] PANEL C3 COMPLEMENT COMPONENT 2022-04-03 17:39:00 [facility] ESTIMATED GFR 2022-04-03 17:39:00 [facility] spital CBC WITH PLATELET AND 2022-04-03 17:39:00 [facility] DIFFERENTIAL MEDICATION CORRESPONDENCE 2022-03-28 06:01:00 Doctor Unassigned, No [facility] CBC WITH PLATELET AND 2022-03-22 21:05:00 [facility] DIFFERENTIAL COMPREHENSIVE METABOLIC 2022-03-22 21:05:00 [facility] PANEL THYROID STIMULATING 2022-03-22 21:05:00 [facility] HORMONE LIPID PANEL 2022-03-22 21:05:00 Trey Rodarte ospital CBC WITH PLATELET AND 2022-03-22 21:05:00 [facility] DIFFERENTIAL ECG 12-LEAD 2022-03-22 20:50:[address] HEAD WO CONTRAST 2022-02-23 16:30:01 [facility] 12-LEAD 2022-02-07 16:38:33 Oliver Méndez Ho spital XR HIPS 3 VW RIGHT 2022-01-18 18:24:54 Nereyda Spencer [facility] CT CERVICAL SPINE WO 2022-01-18 18:07:14 [facility] REFERRAL- 2021-12-20 05:01:00 Doctor Unassigned, Gema Villeda [facility] REQUEST/RESPONSE Name Medical Branch CREATINE KINASE, TOTAL 2021-10-27 20:10:00 Ali, [facility] (CPK) ALDOLASE, SERUM 2021-10-27 20:10:00 Ali, [facility] spital CBC WITH PLATELET AND 2021-10-27 19:54:00 Ali, [facility] DIFFERENTIAL BETA-2 GLYCOPROTEIN 1 2021-10-27 19:54:00 Ali, [facility] ANTIBODIES (IGG, IGA, IGM) C4 COMPLEMENT COMPONENT 2021-10-27 19:54:00 Ali, [facility] CARDIOLIPIN ANTIBODIES 2021-10-27 19:54:00 Ali, [facility] CBC WITH PLATELET AND 2021-10-27 19:54:00 Ali, [facility] DIFFERENTIAL COMPLEMENT ACTIVITY, 2021-10-27 19:54:00 Ali, [facility] TOTAL COMPREHENSIVE METABOLIC 2021-10-27 19:54:00 Ali, [facility] PANEL C-REACTIVE PROTEIN 2021-10-27 19:54:00 Ali, [facility] CYCLIC CITRULLINATED 2021-10-27 19:54:00 Ali, [facility] PEPTIDE AB, IGG DIRECT ANTIGLOBULIN TEST 2021-10-27 19:54:00 [facility], [facility] (STEPHANY) DOUBLE-STRANDED DNA 2021-10-27 19:54:00 Ali, [facility] (DSDNA) ANTIBODIES, CRITHIDIA LUPUS ANTICOAGULANT PANEL 2021-10-27 19:54:00 [facility], [facility] RHEUMATOID FACTOR 2021-10-27 19:54:00 Ali, [facility] PERALES ANTIBODY 2021-10-27 19:54:00 Ali, [facility] spital SEDIMENTATION RATE 2021-10-27 19:54:00 [facility], [facility] URINALYSIS SCREEN AND 2021-10-27 19:54:00 [facility], [facility] MICROSCOPY, WITH REFLEX TO CULTURE URINE PROTEIN/CREATININE 2021-10-27 19:54:00 [facility] RATIO, RANDOM VITAMIN D 25 HYDROXY 2021-10-27 19:54:00 [facility] LEVEL SERUM ELECTROPHORESIS 2021-10-27 19:54:00 [facility] IMMUNOFIXATION, SERUM 2021-10-27 19:54:00 [facility] COVID-19 QUALITATIVE 2021-09-08 18:19:00 [facility] RT-PCR XR CHEST 2 VW 2021-09-08 18:14:00 [facility] CBC WITH PLATELET AND 2021-09-08 17:16:[address] [facility] [place] [place] DIFFERENTIAL SS-B ANTIBODY 2021-09-08 17:16:00 [facility] URINE CULTURE 2021-09-08 17:16:00 [facility] COMPREHENSIVE METABOLIC 2021-09-08 17:16:00 [facility] PANEL CBC WITH PLATELET AND 2021-09-08 17:16:[address] [facility] [place] DIFFERENTIAL TSH WITH REFLEX TO FREE 2021-09-08 17:16:00 [facility] T4 HEMOGLOBIN A1C 2021-09-08 17:16:00 [facility] MICROALBUMIN / CREATININE 2021-09-08 17:16:00 [facility] URINE RATIO URINALYSIS, AUTOMATED 2021-09-08 17:16:[address] [facility] [place] WITH MICROSCOPY VITAMIN B12 LEVEL 2021-09-08 17:16:00 [facility] MAGNESIUM LEVEL 2021-09-08 17:16:00 [facility] LIPID PANEL 2021-09-08 17:16:00 [facility] SEDIMENTATION RATE 2021-09-08 17:16:00 [facility] C-REACTIVE PROTEIN 2021-09-08 17:16:00 [facility] RHEUMATOID FACTOR 2021-09-08 17:16:00 [facility] CLEVE SCREEN W IFA W REFLEX 2021-09-08 17:16:00 [facility] TO TITER SS-A ANTIBODY 2021-09-08 17:16:00 [facility] SS-B ANTIBODY 2021-09-08 17:16:00 [facility] CYCLIC CITRULLINATED 2021-09-08 17:16:00 [facility] PEPTIDE AB, IGG IRON LEVEL 2021-09-08 17:16:00 [facility] FERRITIN LEVEL 2021-09-08 17:16:00 [facility] VITAMIN D 25 HYDROXY 2021-09-08 17:16:00 [facility] LEVEL URIC ACID LEVEL 2021-09-08 17:16:00 [facility] VITAMIN B1 LEVEL, WHOLE 2021-09-08 17:16:00 [facility] BLOOD VITAMIN B6 LEVEL, PLASMA 2021-09-08 17:16:00 [facility] FOLATE LEVEL 2021-09-08 17:16:00 [facility] [QL] BASIC METABOLIC 2020-06-24 00:00:00 [facility] PANEL W/EGFR [QL] B TYPE NATRIURETIC 2020-06-24 00:00:00 [...] 2019-05-27 00:00:00 [facility] [QLH] PROTHROMBIN 2019-05-27 [facility] TIME-INR [QL] B TYPE NATRIURETIC 2019-05-27 00:00:00 [facility] PEPTIDE (BNP) [facility] Lung [facility]ob[facility] of [facility] Cholecystectomy [facility] Knee [facility] Replacement [facility] of [facility] Plan of Care Planned Activity Planned Date Details Comments Source Future Scheduled 2032-08-[address] [facility] 00:00:00 malignant neoplasm [facility] enter of colon (procedure) [code = 120233312] Future Scheduled 2032-08-[address] [facility] 00:00:00 malignant neoplasm [facility] enter of colon (procedure) [code = 753969006] Future Scheduled 2032-08-[address] [facility] 00:00:00 malignant neoplasm [facility] enter of colon (procedure) [code = 983970047] Future Scheduled 2032-08-[address] [facility] 00:00:00 malignant neoplasm [facility] enter of colon (procedure) [code = 635423880] Future Scheduled 2032-08-[address] [facility] 00:00:00 malignant neoplasm [facility] enter of colon (procedure) [code = 788299786] Future Scheduled 2032-08-[address] [facility] 00:00:00 malignant neoplasm [facility] enter of colon (procedure) [code = 331717281] Future Scheduled 2032-08-[address] [facility] 00:00:00 malignant neoplasm [facility] enter of colon (procedure) [code = 892520856] Future Scheduled 2032-08-[address] [facility] 00:00:00 malignant neoplasm [facility] enter of colon (procedure) [code = 516287371] Future Scheduled 2030-06-15 DTAP/TDAP/TD [facility]:00 VACCINES (2 - Td or Medical Center Tdap) [code = DTAP/TDAP/TD VACCINES (2 - Td or Tdap)] Future Scheduled 2030-06-15 DTAP/TDAP/TD [facility] 00:00:00 VACCINES (2 - Td or Medical Center Tdap) [code = DTAP/TDAP/TD VACCINES (2 - Td or Tdap)] Future Scheduled 2030-06-15 DTAP/TDAP/TD [facility] 00:00:00 VACCINES (2 - Td or Medical Center Tdap) [code = DTAP/TDAP/TD VACCINES (2 - Td or Tdap)] Future Scheduled 2030-06-15 DTAP/TDAP/TD [facility] 00:00:00 VACCINES (2 - Td or Medical Center Tdap) [code = DTAP/TDAP/TD VACCINES (2 - Td or Tdap)] Future Scheduled 2030-06-15 DTAP/TDAP/TD [facility] 00:00:00 VACCINES (2 - Td or Medical Center Tdap) [code = DTAP/TDAP/TD VACCINES (2 - Td or Tdap)] Future Scheduled 2030-06-15 DTAP/TDAP/TD [facility] 00:00:00 VACCINES (2 - Td or Medical Center Tdap) [code = DTAP/TDAP/TD VACCINES (2 - Td or Tdap)] Future Scheduled 2030-06-15 DTAP/TDAP/TD [facility] 00:00:00 VACCINES (2 - Td or Medical Center Tdap) [code = DTAP/TDAP/TD VACCINES (2 - Td or Tdap)] Future Scheduled 2030-06-15 DTAP/TDAP/TD [facility] 00:00:00 VACCINES (2 - Td or Medical Center Tdap) [code = DTAP/TDAP/TD VACCINES (2 - Td or Tdap)] Future Scheduled 2030-06-15 DTAP/TDAP/TD [facility] 00:00:00 VACCINES (2 - Td or Medical Center Tdap) [code = DTAP/TDAP/TD VACCINES (2 - Td or Tdap)] Future Scheduled 2030-06-15 DTAP/TDAP/TD [facility] 00:00:00 VACCINES (2 - Td or Medical Center Tdap) [code = DTAP/TDAP/TD VACCINES (2 - Td or Tdap)] Future Scheduled 2030-06-15 DTAP/TDAP/TD [facility] 00:00:00 VACCINES (2 - Td or Medical Center Tdap) [code = DTAP/TDAP/TD VACCINES (2 - Td or Tdap)] Future Scheduled 2030-06-15 DTAP/TDAP/TD [facility] 00:00:00 VACCINES (2 - Td or Medical Center Tdap) [code = DTAP/TDAP/TD VACCINES (2 - Td or Tdap)] Future Scheduled 2030-06-15 DTAP/TDAP/TD [facility] 00:00:00 VACCINES (2 - Td or Medical Center Tdap) [code = DTAP/TDAP/TD VACCINES (2 - Td or Tdap)] Future Scheduled 2030-06-15 DTAP/TDAP/TD [facility] 00:00:00 VACCINES (2 - Td or Medical Center Tdap) [code = DTAP/TDAP/TD VACCINES (2 - Td or Tdap)] Future Scheduled 2023-08-[address] [facility] 00:00:00 [facility] Screening (12+) [code = Tobacco Cessation Counseling and Screening (12+)] Future Scheduled 2023-08-[address] [facility] 00:00:00 [facility] Screening (12+) [code = Tobacco Cessation Counseling and Screening (12+)] Future Scheduled 2023-08-[address] [facility] 00:00:00 [facility] Screening (12+) [code = Tobacco Cessation Counseling and Screening (12+)] Future Scheduled 2023-08-[address] [facility] 00:00:00 [facility] Screening (12+) [code = Tobacco Cessation Counseling and Screening (12+)] Future Scheduled 2023-08-[address] [facility] 00:00:00 [facility] Scre[facility] (12+) [code = Tobacco Cessation Counseling and Screening (12+)] Future Scheduled 2023-02-07 Screening for [facility] 10:38:10 malignant neoplasm Hospital of colon (procedure) [code = 395046642] Future Scheduled 2023-02-07 Screening for [facility] 10:38:10 malignant neoplasm Hospital of colon (procedure) [code = 437534791] Future Scheduled 2023-02-07 Screening for [facility] 10:38:10 malignant neoplasm Hospital of colon (procedure) [code = 589128073] Future Scheduled 2023-02-07 DIABETIC FOOT EXAM [facility] 10:38:10 [code = DIABETIC Hospital FOOT EXAM] Future Scheduled 2023-02-07 Hepatitis C [facility] 10:38:10 screening Hospital (procedure) [code = 234809524] Future Scheduled 2023-02-07 SHINGLES VACCINES (1 [facility] 10:38:10 of 2) [code = Hospital SHINGLES VACCINES (1 of 2)] Future Scheduled 2023-02-07 RSV VACCINES > 60 YR [facility] 10:38:10 (1 - 1-dose 60+ Hospital series) [code = RSV VACCINES > 60 YR (1 - 1-dose 60+ series)] Future Scheduled 2023-02-07 BREAST CANCER [facility] 10:38:10 SCREENING [code = Hospital BREAST CANCER SCREENING] Future Scheduled 2023-02-07 COVID-19 VACCINE (4 [facility] 10:38:10 - season) Hospital [code = COVID-19 VACCINE (4 - season)] Future Scheduled 2023-02-07 INFLUENZA VACCINE [facility] 10:38:10 (#1) [code = Hospital INFLUENZA VACCINE (#1)] Future Scheduled 2023-02-07 Screening for Postponed from [facility] Test 10:38:10 malignant neoplasm 1994 (Not Hospit al of colon (procedure) Indicated) [code = 819803763] Future Scheduled 2023-02-07 Screening for Postponed from [facility] 10:38:10 malignant neoplasm 1950 Hospital of colon (procedure) [code = 710650797] Future Scheduled 2023-02-07 DIABETES: RETINAL [facility] 10:38:10 EYE EXAM [code = Hospital DIABETES: RETINAL EYE EXAM] Future Scheduled 2023-01-19 Screening for [facility] 14:23:18 malignant neoplasm Hospital of colon (procedure) [code = 691529985] Future Scheduled 2023-01-19 Screening for [facility] 14:23:18 malignant neoplasm Hospital of colon (procedure) [code = 695502908] Future Scheduled 2023-01-19 Screening for [facility] 14:23:18 malignant neoplasm Hospital of colon (procedure) [code = 279882078] Future Scheduled 2023-01-19 DIABETIC FOOT EXAM [facility] 14:23:18 [code = DIABETIC Hospital FOOT EXAM] Future Scheduled 2023-01-19 Hepatitis C [facility] 14:23:18 screening Hospital (procedure) [code = 779816683] Future Scheduled 2023-01-19 SHINGLES VACCINES (1 [facility] 14:23:18 of 2) [code = Hospital SHINGLES VACCINES (1 of 2)] Future Scheduled 2023-01-19 COVID-19 VACCINE (4 [facility] 14:23:18 - Moderna series) Hospital [code = COVID-19 VACCINE (4 - Moderna series)] Future Scheduled 2023-01-19 BREAST CANCER [facility] 14:23:18 SCREENING [code = Hospital BREAST CANCER SCREENING] Future Scheduled 2023-01-19 INFLUENZA VACCINE [facility] 14:23:18 (#1) [code = Hospital INFLUENZA VACCINE (#1)] Future Scheduled 2023-01-19 Screening for [facility]poned from [facility] 14:23:18 malignant neoplasm 1994 (Not Hospit al of colon (procedure) Indicated) [code = 181663321] Future Scheduled 2023-01-19 Screening for [facility]poned from [facility] 14:23:18 malignant neoplasm 1950 Hospital of colon (procedure) [code = 521492962] Future Scheduled 2023-01-19 DIABETES: RETINAL [facility] 14:23:18 EYE EXAM [code = Hospital DIABETES: RETINAL EYE EXAM] Future Scheduled 2023-01-19 Screening for [facility] 14:23:18 malignant neoplasm Hospital of colon (procedure) [code = 766849200] Future Scheduled 2023-01-19 Screening for [facility] 14:23:18 malignant neoplasm Hospital of colon (procedure) [code = 680832849] Future Scheduled 2023-01-19 Screening for [facility] 14:23:18 malignant neoplasm Hospital of colon (procedure) [code = 519944372] Future Scheduled 2023-01-19 DIABETIC FOOT EXAM [facility] 14:23:18 [code = DIABETIC Hospital FOOT EXAM] Future Scheduled 2023-01-19 Hepatitis C [facility] 14:23:18 screening Hospital (procedure) [code = 963006833] Future Scheduled 2023-01-19 SHINGLES VACCINES (1 [facility] 14:23:18 of 2) [code = Hospital SHINGLES VACCINES (1 of 2)] Future Scheduled 2023-01-19 COVID-19 VACCINE (4 [facility] 14:23:18 - Moderna series) Hospital [code = COVID-19 VACCINE (4 - Moderna series)] Future Scheduled 2023-01-19 BREAST CANCER [facility] 14:23:18 SCREENING [code = Hospital BREAST CANCER SCREENING] Future Scheduled 2023-01-19 INFLUENZA VACCINE [facility] 14:23:18 (#1) [code = Hospital INFLUENZA VACCINE (#1)] Future Scheduled 2023-01-19 Screening for Postponed from [facility] 14:23:18 malignant neoplasm 1994 (Not Hospit al of colon (procedure) Indicated) [code = 775860339] Future Scheduled 2023-01-19 Screening for [facility]poned from [facility] 14:23:18 malignant neoplasm 1950 Hospital of colon (procedure) [code = 293272714] Future Scheduled 2023-01-19 DIABETES: RETINAL [facility] 14:23:18 EYE EXAM [code = Hospital DIABETES: RETINAL EYE EXAM] Future Scheduled 2022-12-[address] [facility] Test 00:00:00 (Season Ended) [code Medical Center = INFLUENZA VACCINE (Season Ended)] Future Scheduled 2022-12-[address] [facility] Test 00:00:00 (Season Ended) [code Medical Center = INFLUENZA VACCINE (Season Ended)] Future Scheduled 2022-12-[address] [facility] Test 00:00:00 (Season Ended) [code Medical Center = INFLUENZA VACCINE (Season Ended)] Future Scheduled 2022-12-[address] [facility] Test 00:00:00 (Season Ended) [code Medical Center = INFLUENZA VACCINE (Season Ended)] Future Scheduled 2022-12-[address] [facility] 00:00:00 (Season Ended) [code Medical Center = INFLUENZA VACCINE (Season Ended)] Future Scheduled 2022-12-[address] [facility] 00:00:00 (Season Ended) [code Medical Center = INFLUENZA VACCINE (Season Ended)] Future Scheduled 2022-12-[address] [facility] 00:00:00 (Season Ended) [code Medical Center = INFLUENZA VACCINE (Season Ended)] Future Scheduled 2022-07-24 DIABETIC FOOT EXAM [facility] 08:52:09 [code = DIABETIC Hospital FOOT EXAM] Future Scheduled 2022-07-24 Hepatitis C [facility] 08:52:09 screening Hospital (procedure) [code = 245146460] Future Scheduled 2022-07-24 SHINGLES VACCINES (1 [facility] 08:52:09 of 2) [code = Hospital SHINGLES VACCINES (1 of 2)] Future Scheduled 2022-07-24 BREAST CANCER [facility] 08:52:09 SCREENING [code = Hospital BREAST CANCER SCREENING] Future Scheduled 2022-07-24 INFLUENZA VACCINE [facility] 08:52:09 [code = INFLUENZA Hospital VACCINE] Future Scheduled 2022-07-24 COVID-19 VACCINE (4 Postponed from [facility] 08:52:09 - Booster for 04/12/2021 (Not Hospital Moderna series) Indicated) [code = COVID-19 VACCINE (4 - Booster for Moderna series)] Future Scheduled 2022-07-24 COLONOSCOPY Postponed from [facility] 08:52:09 SCREENING [code = 1994 (Not [facility] l COLONOSCOPY Indicated) SCREENING] Future Scheduled 2022-07-24 DIABETES: RETINAL [facility] 08:52:09 EYE EXAM [code = Hospital DIABETES: RETINAL EYE EXAM] Future Scheduled 2022-07-20 DIABETIC FOOT EXAM [facility] 09:15:51 [code = DIABETIC Hospital FOOT EXAM] Future Scheduled 2022-07-20 Hepatitis C [facility] 09:15:51 screening Hospital (procedure) [code = 424347798] Future Scheduled 2022-07-20 BREAST CANCER [facility] 09:15:51 SCREENING [code = Hospital BREAST CANCER SCREENING] Future Scheduled 2022-07-20 INFLUENZA VACCINE Postponed from [facility] 09:15:51 [code = INFLUENZA 11/21/2021 Hospital VACCINE] (Patient Refused) Future Scheduled 2022-07-20 SHINGLES VACCINES (1 Postponed from [facility] Test 09:15:51 of 2) [code = 1969 (Not Hospital SHINGLES VACCINES (1 Indicated) of 2)] Future Scheduled 2022-07-20 COVID-19 VACCINE (4 [facility]poned from [facility] 09:15:51 - Booster for 04/12/2021 (Not Hospital Moderna series) Indicated) [code = COVID-19 VACCINE (4 - Booster for Moderna series)] Future Scheduled 2022-07-20 COLONOSCOPY Postponed from [facility] 09:15:51 SCREENING [code = 1994 (Not Hospita l COLONOSCOPY Indicated) SCREENING] Future Scheduled 2022-07-20 DIABETES: RETINAL [facility] 09:15:51 EYE EXAM [code = Hospital DIABETES: RETINAL EYE EXAM] Future Scheduled 2022-07-18 DIABETIC FOOT EXAM [facility] 08:55:44 [code = DIABETIC Hospital FOOT EXAM] Future Scheduled 2022-07-18 Hepatitis C [facility] 08:55:44 screening Hospital (procedure) [code = 329781735] Future Scheduled 2022-07-18 BREAST CANCER [facility] 08:55:44 SCREENING [code = Hospital BREAST CANCER SCREENING] Future Scheduled 2022-07-18 INFLUENZA VACCINE Postponed from [facility] 08:55:44 [code = INFLUENZA 11/21/2021 Hospital VACCINE] (Patient Refused) Future Scheduled 2022-07-18 SHINGLES VACCINES (1 Postponed from [facility] 08:55:44 of 2) [code = 1969 (Not Hospital SHINGLES VACCINES (1 Indicated) of 2)] Future Scheduled 2022-07-18 COVID-19 VACCINE (4 Postponed from [facility] 08:55:44 - Booster for 04/12/2021 (Not Hospital Moderna series) Indicated) [code = COVID-19 VACCINE (4 - Booster for Moderna series)] Future Scheduled 2022-07-18 COLONOSCOPY Postponed from [facility] 08:55:44 SCREENING [code = 1994 (Not Hospita l COLONOSCOPY Indicated) SCREENING] Future Scheduled 2022-07-18 DIABETES: RETINAL [facility] 08:55:44 EYE EXAM [code = Hospital DIABETES: RETINAL EYE EXAM] Future Scheduled 2022-06-27 DIABETIC FOOT EXAM [facility] 13:40:15 [code = DIABETIC Hospital FOOT EXAM] Future Scheduled 2022-06-27 Hepatitis C [facility] 13:40:15 screening Hospital (procedure) [code = 317865300] Future Scheduled 2022-06-27 BREAST CANCER [facility] 13:40:15 SCREENING [code = Hospital BREAST CANCER SCREENING] Future Scheduled 2022-06-27 INFLUENZA VACCINE Postponed from [facility] Test 13:40:15 [code = INFLUENZA 11/21/2021 Hospital VACCINE] (Patient Refused) Future Scheduled 2022-06-27 SHINGLES VACCINES (1 Postponed from [facility] Test 13:40:15 of 2) [code = 1969 (Not Hospital SHINGLES VACCINES (1 Indicated) of 2)] Future Scheduled 2022-06-27 COVID-19 VACCINE (4 Postponed from [facility] 13:40:15 - Booster for 04/12/2021 (Not Hospital Moderna series) Indicated) [code = COVID-19 VACCINE (4 - Booster for Moderna series)] Future Scheduled 2022-06-27 COLONOSCOPY Postponed from [facility] 13:40:15 SCREENING [code = 1994 (Not [facility] l COLONOSCOPY Indicated) SCREENING] Future Scheduled 2022-06-27 DIABETES: RETINAL [facility] 13:40:15 EYE EXAM [code = Hospital DIABETES: RETINAL EYE EXAM] Future Scheduled 2022-06-07 DIABETIC FOOT EXAM [facility] 15:39:00 [code = DIABETIC Hospital FOOT EXAM] Future Scheduled 2022-06-07 Hepatitis C [facility] 15:39:00 screening Hospital (procedure) [code = 730009362] Future Scheduled 2022-06-07 BREAST CANCER [facility] 15:39:00 SCREENING [code = Hospital BREAST CANCER SCREENING] Future Scheduled 2022-06-07 INFLUENZA VACCINE Postponed from [facility] 15:39:00 [code = INFLUENZA 11/21/2021 Hospital VACCINE] (Patient Refused) Future Scheduled 2022-06-07 SHINGLES VACCINES (1 Postponed from [facility] 15:39:00 of 2) [code = 1969 (Not Hospital SHINGLES VACCINES (1 Indicated) of 2)] Future Scheduled 2022-06-07 COVID-19 VACCINE (4 Postponed from [facility] 15:39:00 - Booster for 04/12/2021 (Not Hospital Moderna series) Indicated) [code = COVID-19 VACCINE (4 - Booster for Moderna series)] Future Scheduled 2022-06-07 COLONOSCOPY Postponed from [facility] 15:39:00 SCREENING [code = 1994 (Not Hospita l COLONOSCOPY Indicated) SCREENING] Future Scheduled 2022-06-07 DIABETES: RETINAL [facility] 15:39:00 EYE EXAM [code = Hospital DIABETES: RETINAL EYE EXAM] Future Scheduled 2022-04-[address] [facility] 00:00:00 (12+) [code = Medical Center DEPRESSION SCREENING (12+)] Future Scheduled 2022-04-[address] SCREENING [facility] 00:00:00 [code = FALLS RISK Medical C enter SCREENING] Future Scheduled 2022-04-[address] [facility] 00:[facility]:00 (WELCOME TO Medical Center MEDICARE) [code = Medicare IPPE (WELCOME TO MEDICARE)] Future Scheduled 2022-04-[address] [facility] 00:00:00 (12+) [code = Medical Center DEPRESSION SCREENING (12+)] Future Scheduled 2022-04-[address]K SCREENING [facility] 00:00:00 [code = FALLS RISK Medical C enter SCREENING] Future Scheduled 2022-04-[address] [facility] 00:00:00 (WELCOME TO Medical Center MEDICARE) [code = Medicare IPPE (WELCOME TO MEDICARE)] Future Scheduled 2022-04-[address] [facility] 00:00:00 (12+) [code = Medical Center DEPRESSION SCREENING (12+)] Future Scheduled 2022-04-[address] F[address]S [address]K SCREENING [facility] 00:00:00 [code = FALLS RISK Medical C enter SCREENING] Future Scheduled 2022-04-[address] [facility] 00:00:00 (WELCOME TO [facility] MEDICARE) [code = Medicare IPPE (WELCOME TO MEDICARE)] Future Scheduled 2022-04-[address] [facility] 00:00:00 (12+) [code = Medical Center DEPRESSION SCREENING (12+)] Future Scheduled 2022-04-[address] F[address]S [address]ISK SCREENING [facility] 00:00:00 [code = FALLS RISK Medical C enter SCREENING] Future Scheduled 2022-04-[address] [facility] 00:00:00 (WELCOME TO Medical Center MEDICARE) [code = Medicare IPPE (WELCOME TO MEDICARE)] Future Scheduled 2022-04-[address] [facility] 00:00:00 (12+) [code = Medical Center DEPRESSION SCREENING (12+)] Future Scheduled 2022-04-[address]ISK SCREENING [facility] 00:00:00 [code = FALLS RISK Medical C enter SCREENING] Future Scheduled 2022-04-[address] [facility] 00:00:00 (WELCOME TO Medical Center MEDICARE) [code = Medicare IPPE (WELCOME TO MEDICARE)] Future Scheduled 2022-04-[address] [facility] 00:00:00 (12+) [code = Medical Center DEPRESSION SCREENING (12+)] Future Scheduled 2022-04-[address]K SCREENING [facility] 00:00:00 [code = FALLS RISK Medical C enter SCREENING] Future Scheduled 2022-04-[address] [facility] 00:00:00 (WELCOME TO Medical Center MEDICARE) [code = Medicare IPPE (WELCOME TO MEDICARE)] Future Scheduled 2022-04-[address] [facility] 00:00:00 (12+) [code = Medical Center DEPRESSION SCREENING (12+)] Future Scheduled 2022-04-[address] F[address]S RISK SCREENING [facility] 00:00:00 [code = FALLS RISK Medical C enter SCREENING] Future Scheduled 2022-04-[address] [facility] 00:00:00 (WELCOME TO Medical Center MEDICARE) [code = Medicare IPPE (WELCOME TO MEDICARE)] Future Scheduled 2022-04-[address] [facility] 00:00:00 (12+) [code = Medical Center DEPRESSION SCREENING (12+)] Future Scheduled 2022-04-[address] F[address]S RISK SCREENING [facility] 00:00:00 [code = FALLS RISK Medical C enter SCREENING] Future Scheduled 2022-04-[address] [facility] 00:00:00 (WELCOME TO Medical Center MEDICARE) [code = Medicare IPPE (WELCOME TO MEDICARE)] Future Scheduled 2022-04-[address] [facility] 00:00:00 (12+) [code = Medical Center DEPRESSION SCREENING (12+)] Future Scheduled 2022-04-[address]S [address]K SCREENING [facility] 00:00:00 [code = FALLS RISK Medical C enter SCREENING] Future Scheduled 2022-04-[address] [facility] 00:00:00 (WELCOME TO Medical Center MEDICARE) [code = Medicare IPPE (WELCOME TO MEDICARE)] Future Scheduled 2022-04-[address] [facility] 00:00:00 (12+) [code = Medical Center DEPRESSION SCREENING (12+)] Future Scheduled 2022-04-[address] F[address]S [address]ISK SCREENING [facility] 00:00:00 [code = FALLS RISK Medical C enter SCREENING] Future Scheduled 2022-04-[address] [facility] 00:00:00 (WELCOME TO Medical Center MEDICARE) [code = Medicare IPPE (WELCOME TO MEDICARE)] Future Scheduled 2022-04-[address] [facility] 00:00:00 (12+) [code = Medical Center DEPRESSION SCREENING (12+)] Future Scheduled 2022-04-[address] F[address]S RISK SCREENING [facility] 00:00:00 [code = FALLS RISK Medical C enter SCREENING] Future Scheduled 2022-04-[address] [facility] 00:00:00 (WELCOME TO Medical Center MEDICARE) [code = Medicare IPPE (WELCOME TO MEDICARE)] Future Scheduled 2022-04-[address] [facility] 00:00:00 (12+) [code = Medical Center DEPRESSION SCREENING (12+)] Future Scheduled 2022-04-23 FALLS RISK SCREENING [facility] 00:00:00 [code = FALLS RISK Medical C enter SCREENING] Future Scheduled 2022-04-[address] [facility] 00:00:00 (WELCOME TO Medical Center MEDICARE) [code = Medicare IPPE (WELCOME TO MEDICARE)] Future Scheduled 2022-04-[address] [facility] 00:00:00 (12+) [code = Medical Center DEPRESSION SCREENING (12+)] Future Scheduled 2022-04-23 F[address]S RISK SCREENING [facility] 00:00:00 [code = FALLS RISK Medical C enter SCREENING] Future Scheduled 2022-04-[address] [facility] 00:00:00 (WELCOME TO Medical Center MEDICARE) [code = Medicare IPPE (WELCOME TO MEDICARE)] Future Scheduled 2022-04-[address] [facility] 00:00:00 (12+) [code = Medical Center DEPRESSION SCREENING (12+)] Future Scheduled 2022-04-23 F[address]S RISK SCREENING [facility] 00:00:00 [code = FALLS RISK Medical C enter SCREENING] Future Scheduled 2022-04-[address] [facility] 00:00:00 (WELCOME TO [facility] MEDICARE) [code = Medicare IPPE (WELCOME TO MEDICARE)] Future Scheduled 2021-12-[address] [facility] 00:00:00 (#1) [code = Medical Center INFLUENZA VACCINE (#1)] Future Scheduled 2021-12-[address] [facility] 00:00:00 (#1) [code = Medical Center INFLUENZA VACCINE (#1)] Future Scheduled 2021-12-[address] [facility] 00:00:00 (#1) [code = Medical Center INFLUENZA VACCINE (#1)] Future Scheduled 2021-12-[address] [facility] 00:00:00 (#1) [code = Medical Center INFLUENZA VACCINE (#1)] Future Scheduled 2021-12-[address] [facility] 00:00:00 (#1) [code = Medical Center INFLUENZA VACCINE (#1)] Future Scheduled 2021-12-[address] [facility] 00:00:00 (#1) [code = Medical Center INFLUENZA VACCINE (#1)] Future Scheduled 2021-12-[address] [facility] 00:00:00 (#1) [code = Medical Center INFLUENZA VACCINE (#1)] Future Scheduled 2021-06-18 COVID-19 VACCINE ([address] [facility] 00:00:00 - Booster for Medical [facility] [code = COVID-19 VACCINE (4 - [facility] for [facility])] Future Scheduled 2021-06-18 COVID-19 VACCINE ([address] [facility] 00:00:00 - [facility] [code = COVID-19 VACCINE (4 - [facility] for [facility])] Future Scheduled 2021-04-12 COVID-19 VACCINE ([address] [facility] 00:00:00 - [facility]) [code = COVID-19 VACCINE (4 - [facility])] Future Scheduled 2021-04-12 COVID-19 VACCINE ([address] [facility] 00:00:00 - [facility]) [code = COVID-19 VACCINE (4 - [facility])] Future Scheduled 2021-04-12 COVID-19 VACCINE ([address] [facility] 00:00:00 - [facility]) [code = COVID-19 VACCINE (4 - [facility])] Future Scheduled 2021-04-12 COVID-19 VACCINE ([address] [facility] 00:00:00 - [facility]) [code = COVID-19 VACCINE (4 - [facility] for [facility])] Future Scheduled 2021-04-12 COVID-19 VACCINE ([address] [facility] 00:00:00 - [facility]) [code = COVID-19 VACCINE (4 - [facility])] Future Scheduled 2021-04-12 COVID-19 VACCINE ([address] [facility] 00:00:00 - [facility]) [code = COVID-19 VACCINE (4 - [facility])] Future Scheduled 2021-04-12 COVID-19 VACCINE ([address] [facility] 00:00:00 - [facility]) [code = COVID-19 VACCINE (4 - [facility] for [facility])] Future Scheduled 2021-04-12 COVID-19 VACCINE ([address] [facility] 00:00:00 - [facility]) [code = COVID-19 VACCINE (4 - [facility] for [facility])] Future Scheduled 2021-04-12 COVID-19 VACCINE ([address] [facility] 00:00:00 - [facility]) [code = COVID-19 VACCINE (4 - [facility])] Future Scheduled 2021-04-12 COVID-19 VACCINE ([address] [facility] 00:00:00 - [facility]) [code = COVID-19 VACCINE (4 - [facility] for [facility])] Future Scheduled 2021-04-12 COVID-19 VACCINE ([address] [facility] 00:00:00 - [facility]) [code = COVID-19 VACCINE (4 - [facility])] Future Scheduled 2021-04-12 COVID-19 VACCINE ([address] [facility] 00:00:00 - [facility]) [code = COVID-19 VACCINE (4 - [facility] for [facility])] Future Scheduled 2021-02-09 PNEUMOCOCCAL 65+ YRS [facility] 00:00:00 (2 - PCV) [code = Medical Ce nter PNEUMOCOCCAL 65+ YRS (2 - PCV)] Future Scheduled 2021-02-09 PNEUMOCOCCAL 65+ Y[facility] 00:00:00 (2 - PCV) [code = Medical Ce nter PNEUMOCOCCAL 65+ YRS (2 - PCV)] Future Scheduled 1999-09-14 SHINGLES VACCINES ([address] [facility] 00:00:00 of 2) [code = Medical Center SHINGLES VACCINES (1 of 2)] Future Scheduled 1999-09-14 SHINGLES VACCINES ([address] [facility] 00:00:00 of 2) [code = Medical Center SHINGLES VACCINES (1 of 2)] Future Scheduled 1999-09-14 SHINGLES VACCINES ([address] [facility] 00:00:00 of 2) [code = Medical Center SHINGLES VACCINES (1 of 2)] Future Scheduled 1999-09-14 SHINGLES VACCINES ([address] [facility] 00:00:00 of 2) [code = Medical Center SHINGLES VACCINES (1 of 2)] Future Scheduled 1999-09-14 SHINGLES VACCINES ([address] [facility] 00:00:00 of 2) [code = Medical Center SHINGLES VACCINES (1 of 2)] Future Scheduled 1999-09-14 SHINGLES VACCINES ([address] [facility] 00:00:00 of 2) [code = Medical Center SHINGLES VACCINES (1 of 2)] Future Scheduled 1999-09-14 SHINGLES VACCINES ([address] [facility] 00:00:00 of 2) [code = Medical Center SHINGLES VACCINES (1 of 2)] Future Scheduled 1999-09-14 SHINGLES VACCINES ([address] [facility] 00:00:00 of 2) [code = Medical Center SHINGLES VACCINES (1 of 2)] Future Scheduled 1999-09-14 SHINGLES VACCINES ([address] [facility] 00:00:00 of 2) [code = Medical Center SHINGLES VACCINES (1 of 2)] Future Scheduled 1999-09-14 SHINGLES VACCINES ([address] [facility] 00:00:00 of 2) [code = Medical Center SHINGLES VACCINES (1 of 2)] Future Scheduled 1999-09-14 SHINGLES VACCINES ([address] [facility] 00:00:00 of 2) [code = Medical Center SHINGLES VACCINES (1 of 2)] Future Scheduled 1999-09-14 SHINGLES VACCINES ([address] [facility] 00:00:00 of 2) [code = Medical Center SHINGLES VACCINES (1 of 2)] Future Scheduled 1999-09-14 SHINGLES VACCINES ([address] [facility] 00:00:00 of 2) [code = Medical Center SHINGLES VACCINES (1 of 2)] Future Scheduled 1999-09-14 SHINGLES VACCINES ([address] [facility] 00:00:00 of 2) [code = Medical Center SHINGLES VACCINES (1 of 2)] Future Scheduled 1967-09-[address] [facility]:00 SCREENING [code = Medical Ce nter HEPATITIS C SCREENING] Future Scheduled 1967-09-[address] [facility] 00:00:00 SCREENING [code = Medical Ce nter HEPATITIS C SCREENING] Future Scheduled 1967-09-[address] [facility] 00:00:00 SCREENING [code = Medical Ce nter HEPATITIS C SCREENING] Future Scheduled 1967-09-[address] [facility] 00:00:00 SCREENING [code = Medical Ce nter HEPATITIS C SCREENING] Future Scheduled 1967-09-[address] [facility] 00:00:00 SCREENING [code = Medical Ce nter HEPATITIS C SCREENING] Future Scheduled 1967-09-[address] [facility] 00:00:00 SCREENING [code = Medical Ce nter HEPATITIS C SCREENING] Future Scheduled 1967-09-[address] [facility] 00:00:00 SCREENING [code = Medical Ce nter HEPATITIS C SCREENING] Future Scheduled 1967-09-[address] [facility] 00:00:00 SCREENING [code = Medical Ce nter HEPATITIS C SCREENING] Future Scheduled 1967-09-[address] [facility] 00:00:00 SCREENING [code = Medical Ce nter HEPATITIS C SCREENING] Future Scheduled 1967-09-[address] [facility] 00:00:00 SCREENING [code = Medical Ce nter HEPATITIS C SCREENING] Future Scheduled 1967-09-[address] [facility] 00:00:00 SCREENING [code = Medical Ce nter HEPATITIS C SCREENING] Future Scheduled 1967-09-[address] [facility] 00:00:00 SCREENING [code = Medical Ce nter HEPATITIS C SCREENING] Future Scheduled 1967-09-[address] [facility] 00:00:00 SCREENING [code = Medical Ce nter HEPATITIS C SCREENING] Future Scheduled 1967-09-[address] [facility] 00:00:00 SCREENING [code = Medical Ce nter HEPATITIS C SCREENING] Future Scheduled [address] [facility] 00:00:00 [facility] Medical Cente r Screening (12+) [code = Tobacco Cessation Counseling and Screening (12+)] Future Scheduled [address] [facility] 00:00:00 Counseling and Medical Cente r Screening (12+) [code = Tobacco Cessation Counseling and Screening (12+)] Future Scheduled [address] [facility] 00:00:00 Counseling and Medical Cente r Screening (12+) [code = Tobacco Cessation Counseling and Screening (12+)] Future Scheduled [address] [facility] 00:00:00 Counseling and Medical Cente r Screening (12+) [code = Tobacco Cessation Counseling and Screening (12+)] Future Scheduled [address] [facility] 00:00:00 Counseling and Medical Cente r Screening (12+) [code = Tobacco Cessation Counseling and Screening (12+)] Future Scheduled [address] [facility] 00:00:00 Counseling and Medical Cente r Screening (12+) [code = Tobacco Cessation Counseling and Screening (12+)] Future Scheduled [address] [facility] 00:00:00 Counseling and Medical Cente r Screening (12+) [code = Tobacco Cessation Counseling and Screening (12+)] Future Scheduled [address] [facility] 00:00:00 Counseling and Medical Cente r Screening (12+) [code = Tobacco Cessation Counseling and Screening (12+)] Future Scheduled [address] [facility] 00:00:00 Counseling and Medical Cente r Screening (12+) [code = Tobacco Cessation Counseling and Screening (12+)] Future Scheduled [address] [facility]:00 malignant neoplasm Medical C enter of colon (procedure) [code = 231592377] Future Scheduled 1949 DXA SCAN [code = DXA [facility] 00:00:00 SCAN] [facility] Future Scheduled [address] [facility] 00:00:00 malignant neoplasm Medical C enter of colon (procedure) [code = 668661203] Future Scheduled [address] [facility] 00:00:00 malignant neoplasm Medical C enter of breast (procedure) [code = 523815612] Future Scheduled [address] [facility] 00:00:00 (combo) [code = CT Medical C enter Colonography (combo)] Future Scheduled [address] [facility] 00:00:00 malignant neoplasm Medical C enter of colon (procedure) [code = 299685928] Future Scheduled [address] [facility] 00:00:00 malignant neoplasm Medical C enter of colon (procedure) [code = 125964234] Future Scheduled 1949 DXA SCAN [code = DXA [facility] 00:00:00 SCAN] [facility] Future Scheduled [address] [facility] 00:00:00 malignant neoplasm Medical C enter of colon (procedure) [code = 770140781] Future Scheduled [address] [facility] 00:00:00 malignant neoplasm Medical C enter of colon (procedure) [code = 751720360] Future Scheduled [address] [facility] 00:00:00 malignant neoplasm Medical C enter of colon (procedure) [code = 857542058] Future Scheduled 1949 Sigmoidoscopy [code [facility] 00:00:00 = Sigmoidoscopy] [facility] Future Scheduled 1949 Sigmoidoscopy [code [facility] 00:00:00 = Sigmoidoscopy] [facility] Future Scheduled [address] [facility] 00:[facility]:00 malignant neoplasm Medical C enter of breast (procedure) [code = 078034514] Future Scheduled [address] [facility] 00:00:00 (combo) [code = CT Medical C enter Colonography (combo)] Future Scheduled [address] [facility] 00:00:00 malignant neoplasm Medical C enter of colon (procedure) [code = 324981418] Future Scheduled [address] [facility] 00:00:00 malignant neoplasm Medical C enter of colon (procedure) [code = 501574426] Future Scheduled 1949 DXA SCAN [code = DXA [facility] 00:00:00 SCAN] [facility] Future Scheduled [address] [facility] 00:00:00 malignant neoplasm Medical C enter of colon (procedure) [code = 927437101] Future Scheduled [address] [facility] 00:00:00 malignant neoplasm Medical C enter of colon (procedure) [code = 256737986] Future Scheduled 1949 Sigmoidoscopy [code [facility] 00:00:00 = Sigmoidoscopy] [facility] Future Scheduled [address] [facility] 00:00:00 malignant neoplasm Medical C enter of breast (procedure) [code = 255871966] Future Scheduled [address] [facility] 00:00:00 (combo) [code = CT Medical C enter Colonography (combo)] Future Scheduled [address] [facility] 00:00:00 malignant neoplasm Medical C enter of colon (procedure) [code = 143382768] Future Scheduled [address] [facility] 00:00:00 malignant neoplasm Medical C enter of colon (procedure) [code = 132980040] Future Scheduled 1949 DXA SCAN [code = DXA [facility] 00:00:00 SCAN] [facility] Future Scheduled [address] [facility] 00:00:00 malignant neoplasm Medical C enter of colon (procedure) [code = 667669547] Future Scheduled [address] [facility] 00:00:00 malignant neoplasm Medical C enter of colon (procedure) [code = 687068534] Future Scheduled 1949 Sigmoidoscopy [code [facility] 00:00:00 = Sigmoidoscopy] [facility] Future Scheduled [address] [facility] 00:00:00 malignant neoplasm Medical C enter of breast (procedure) [code = 174518064] Future Scheduled [address] [facility] 00:00:00 (combo) [code = CT Medical C enter Colonography (combo)] Future Scheduled [address] [facility] 00:00:00 malignant neoplasm Medical C enter of colon (procedure) [code = 435757733] Future Scheduled [address] [facility] 00:00:00 malignant neoplasm Medical C enter of colon (procedure) [code = 878620814] Future Scheduled 1949 DXA SCAN [code = DXA [facility] 00:00:00 SCAN] [facility] Future Scheduled [address] [facility] 00:00:00 malignant neoplasm Medical C enter of colon (procedure) [code = 065865908] Future Scheduled [address] [facility] 00:00:00 malignant neoplasm Medical C enter of colon (procedure) [code = 454196377] Future Scheduled 1949 Sigmoidoscopy [code [facility] 00:00:00 = Sigmoidoscopy] [facility] Future Scheduled [address] [facility] 00:00:00 malignant neoplasm Medical C enter of breast (procedure) [code = 326529102] Future Scheduled [address] [facility] 00:00:00 (combo) [code = CT Medical C enter Colonography (combo)] Future Scheduled 1949 DXA SCAN [code = DXA [facility] 00:00:00 SCAN] [facility] Future Scheduled [address] [facility] 00:00:00 malignant neoplasm Medical C enter of colon (procedure) [code = 228171383] Future Scheduled [address] [facility] 00:00:00 malignant neoplasm Medical C enter of colon (procedure) [code = 020651586] Future Scheduled 1949 Sigmoidoscopy [code [facility] 00:00:00 = Sigmoidoscopy] [facility] Future Scheduled [address] [facility] 00:00:00 malignant neoplasm Medical C enter of breast (procedure) [code = 295040318] Future Scheduled [address] [facility] 00:00:00 (combo) [code = CT Medical C enter Colonography (combo)] Future Scheduled 1949 DXA SCAN [code = DXA [facility] 00:00:00 SCAN] [facility] Future Scheduled [address] [facility] 00:00:00 malignant neoplasm Medical C enter of colon (procedure) [code = 391821746] Future Scheduled [address] [facility] 00:00:00 malignant neoplasm Medical C enter of colon (procedure) [code = 584546811] Future Scheduled 1949 Sigmoidoscopy [code [facility] 00:00:00 = Sigmoidoscopy] [facility] Future Scheduled [address] [facility] 00:00:00 malignant neoplasm Medical C enter of breast (procedure) [code = 522020903] Future Scheduled [address] [facility] 00:00:00 (combo) [code = CT Medical C enter Colonography (combo)] Future Scheduled 1949 DXA SCAN [code = DXA [facility] 00:00:00 SCAN] [facility] Future Scheduled [address] [facility] 00:00:00 malignant neoplasm Medical C enter of colon (procedure) [code = 843914970] Future Scheduled [address] [facility] 00:00:00 malignant neoplasm Medical C enter of colon (procedure) [code = 859095479] Future Scheduled 1949 Sigmoidoscopy [code [facility] 00:00:00 = Sigmoidoscopy] [facility] Future Scheduled [address] [facility] 00:00:00 malignant neoplasm Medical C enter of breast (procedure) [code = 022143482] Future Scheduled [address] [facility] 00:00:00 (combo) [code = CT Medical C enter Colonography (combo)] Future Scheduled 1949 DXA SCAN [code = DXA [facility] 00:00:00 SCAN] [facility] Future Scheduled [address] [facility] 00:00:00 malignant neoplasm Medical C enter of colon (procedure) [code = 237233816] Future Scheduled [address] [facility] 00:00:00 malignant neoplasm Medical C enter of colon (procedure) [code = 546761915] Future Scheduled 1949 Sigmoidoscopy [code [facility] 00:00:00 = Sigmoidoscopy] [facility] Future Scheduled [address] [facility] 00:00:00 malignant neoplasm Medical C enter of breast (procedure) [code = 163055750] Future Scheduled [address] [facility] 00:00:00 (combo) [code = CT Medical C enter Colonography (combo)] Future Scheduled [address] [facility] 00:00:00 malignant neoplasm Medical C enter of colon (procedure) [code = 092271846] Future Scheduled [address] [facility] 00:00:00 malignant neoplasm Medical C enter of colon (procedure) [code = 638790647] Future Scheduled 1949 DXA SCAN [code = DXA [facility] 00:00:00 SCAN] [facility] Future Scheduled [address] [facility] 00:00:00 malignant neoplasm Medical C enter of colon (procedure) [code = 015065153] Future Scheduled [address] [facility] 00:00:00 malignant neoplasm Medical C enter of colon (procedure) [code = 866159433] Future Scheduled 1949 Sigmoidoscopy [code [facility] 00:00:00 = Sigmoidoscopy] [facility] Future Scheduled [address] [facility] 00:00:00 malignant neoplasm Medical C enter of breast (procedure) [code = 087418021] Future Scheduled [address] [facility] 00:00:00 (combo) [code = CT Medical C enter Colonography (combo)] Future Scheduled [address] [facility] 00:00:00 malignant neoplasm Medical C enter of colon (procedure) [code = 715416337] Future Scheduled [address] [facility] 00:00:00 malignant neoplasm Medical C enter of colon (procedure) [code = 729762231] Future Scheduled 1949 DXA SCAN [code = DXA [facility] 00:00:00 SCAN] [facility] Future Scheduled [address] [facility] 00:00:00 malignant neoplasm Medical C enter of colon (procedure) [code = 226824523] Future Scheduled [address] [facility] 00:00:00 malignant neoplasm Medical C enter of colon (procedure) [code = 359090534] Future Scheduled 1949 Sigmoidoscopy [code [facility] 00:00:00 = Sigmoidoscopy] [facility] Future Scheduled [address] [facility] 00:00:00 malignant neoplasm Medical C enter of breast (procedure) [code = 224126196] Future Scheduled [address] [facility] 00:00:00 (combo) [code = CT Medical C enter Colonography (combo)] Future Scheduled [address] [facility] 00:00:00 malignant neoplasm Medical C enter of colon (procedure) [code = 444537847] Future Scheduled [address] [facility] 00:00:00 malignant neoplasm Medical C enter of colon (procedure) [code = 569717369] Future Scheduled 1949 DXA SCAN [code = DXA [facility] 00:00:00 SCAN] [facility] Future Scheduled [address] [facility] 00:00:00 malignant neoplasm Medical C enter of colon (procedure) [code = 412842701] Future Scheduled [address] [facility] 00:00:00 malignant neoplasm Medical C enter of colon (procedure) [code = 622391712] Future Scheduled 1949 Sigmoidoscopy [code [facility] 00:00:00 = Sigmoidoscopy] Medical [facility] Future Scheduled [address] [facility] 00:00:00 malignant neoplasm Medical C enter of breast (procedure) [code = 581155470] Future Scheduled [address] [facility] 00:00:00 (combo) [code = CT Medical C enter Colonography (combo)] Future Scheduled [address] [facility] 00:00:00 malignant neoplasm Medical C enter of colon (procedure) [code = 439510813] Future Scheduled [address] [facility] 00:00:00 malignant neoplasm Medical C enter of colon (procedure) [code = 168624883] Future Scheduled 1949 DXA SCAN [code = DXA [facility] 00:00:00 SCAN] [facility] Future Scheduled [address] [facility] 00:00:00 malignant neoplasm Medical C enter of colon (procedure) [code = 962181583] Future Scheduled [address] [facility] 00:00:00 malignant neoplasm Medical C enter of colon (procedure) [code = 673511967] Future Scheduled 1949 Sigmoidoscopy [code [facility] 00:00:00 = Sigmoidoscopy] [facility] Future Scheduled [address] [facility] 00:00:00 malignant neoplasm Medical C enter of breast (procedure) [code = 121811351] Future Scheduled [address] [facility] 00:00:00 (combo) [code = CT Medical C enter Colonography (combo)] Future Scheduled [address] [facility] 00:00:00 malignant neoplasm Medical C enter of colon (procedure) [code = 024652407] Future Scheduled [address] [facility] 00:00:00 malignant neoplasm Medical C enter of colon (procedure) [code = 755647766] Future Scheduled 1949 DXA SCAN [code = DXA [facility] 00:00:00 SCAN] [facility] Future Scheduled [address] [facility] 00:00:00 malignant neoplasm Medical C enter of colon (procedure) [code = 994549621] Future Scheduled [address] [facility] 00:00:00 malignant neoplasm Medical C enter of colon (procedure) [code = 141027441] Future Scheduled 1949 Sigmoidoscopy [code [facility] 00:00:00 = Sigmoidoscopy] [facility] [address] Future Scheduled [address] [facility] 00:00:00 malignant neoplasm Medical C enter of breast (procedure) [code = 377412030] Future Scheduled [address] [facility] 00:00:00 (combo) [code = CT Medical C enter Colonography (combo)] Future Scheduled [address] [facility] 00:00:00 malignant neoplasm Medical C enter of colon (procedure) [code = 806882794] Future Scheduled [QL] CMP W/EGFR [facility] [code = [QL] CMP appointment W/EGFR] Future Scheduled [QL] CBC (INCLUDES [facility] DIFF/PLT) [code = appointment [QL] CBC (INCLUDES DIFF/PLT)] Future Scheduled [QL] B TYPE [facility] NATRIURETIC PEPTIDE appointment (BNP) [code = [QL] B TYPE NATRIURETIC PEPTIDE (BNP)] Future Scheduled [QL] CMP W/EGFR [facility] [code = [QL] CMP appointment W/EGFR] Future Scheduled [QL] CBC (INCLUDES [facility] DIFF/PLT) [code = appointment [QL] CBC (INCLUDES DIFF/PLT)] Future Scheduled [QL] B TYPE [facility] NATRIURETIC PEPTIDE appointment (BNP) [code = [QL] B TYPE NATRIURETIC PEPTIDE (BNP)] Encounters Start End Encounter Admission Attending Care Care Encounter Source Date/Time Date/Time Type Type Clinicians Facility Department ID 2022-06-23 Outpatient 3 DOMINIQUE GUTIERREZ [facility] 09:17:39 [id number] [place] [facility] 2022-06-20 Outpatient 3 MARIA T GUTIERREZPL INOCENCIO [id number] [facility] 09:37:53 [facility] [place] 2022-06-06 Outpatient [facility] [id number] [place] 11:09:34 [id number] [facility] 2021-09-16 Outpatient Anastacio STJAIMEELC STLMLC [id number] Common 11:10:01 Vinitha [facility] 2021-07-08 Outpatient Janessa GARFIELD [facility] SAW [id number] Univers 12:40:26 [facility] 2021-06-21 Outpatient Janessa RODRIGUEZ [facility] SA[facility] [id number] Univers 15:02:07 [facility] 2021-05-19 Outpatient Anastacio STJAIMEELC STLC [id number] Common 15:25:01 Vinitha [facility] 2021-05-18 Outpatient Anastacio STJAIMEELC STLC [id number] 02 Common 14:37:30 Vinitha [facility] 2021-05-03 Outpatient RAMSEY [facility] [id number] [place] 11:30:57 [facility] 2021-02-19 Outpatient Janessa ANTONIO [facility] GILizandro [id number] Univers 07:46:53 DONG [facility] 2020-11-16 Outpatient KEN [facility] [id number] [place] 12:27:57 [facility] 2020-11-12 Outpatient HEMATPOUR, [facility] [id number] [place] 15:41:16 LANDRY Healvalerie 2020-09-24 Outpatient HAMIDA [facility] [id number] [place] 16:46:48 [facility] 2020-09-09 Outpatient KEN [facility] [id number] [place] 15:48:20 [facility] 2023-01-29 2023-01-29 Outpatient AMPARO COURTNEY [facility] [id number] [facility] 00:00:00 00:00:00 MUSA 2023-01-26 2023-01-26 Outpatient SFA SFA [id number]- Jayant 09:27:41 09:27:41 22000 F Bert 2023-01-24 2023-01-24 Outpatient SFA SFA 617308- Jayant 14:11:31 14:11:31 69410 F Bert 2023-01-19 2023-01-19 Outpatient AMPARO COURTNEY [facility] SLE 105 [id number] SLE 00:00:00 00:00:00 MUSA 2022-12-28 2022-12-28 Outpatient AMPARO COURTNEY [facility] SLE [id number] SLE 00:00:00 00:00:00 MUSA 2022-12-27 2022-12-27 Outpatient AMPARO COURTNEY [facility] SLE [id number] SLEH 00:00:00 00:00:00 MUSA 2022-12-08 2022-12-08 Orders Lars, Hiba 1.2.840.1 [id number] 2099 [id number] Methodi 00:00:00 00:00:[address] 3.430.2.7 Hospit a .3.397276 l .8 2022-12-08 2022-12-08 Orders Lars Hiba 1.2.840.1 [id number] 2099 [id number] Methodi 00:00:00 00:00:[address] 3.430.2.7 Hospit a .3.126807 l .8 2022-11-24 2022-11-24 Outpatient AMPARO COURTNEY [facility] [id number] SLE 00:00:00 00:00:00 MUSA 2022-11-09 2022-11-09 Outpatient AMPARO COURTNEY [facility] SLE [id number] SLE 00:00:00 00:00:00 [facility] 2022-10-23 2022-10-23 Outpatient Janessa [facility] [id number] Univers 15:30:00 15:30:00 KARUNA fortune [facility] 2022-10-18 2022-10-18 Telephone Cristino, 1.2.840.1 [id number] 991 [id number] Methodi 00:00:00 00:00:[address] 3.430.2.7 Hospit a .3.622024 l .8 2022-10-18 2022-10-18 Telephone Cristino, 1.2.840.1 [id number] 455 [id number] Methodi 00:00:00 00:00:[address] 3.430.2.7 Hospit a .3.059321 l .8 2022-10-05 2022-10-05 Telephone Gregg, 1.2.840.1 [id number] 143 [id number] Methodi 00:00:00 00:00:[address] 3.430.2.7 Hospit a .3.780747 l .8 2022-10-05 2022-10-05 [facility], 1.2.840.1 [id number] Methodi 00:00:00 00:00:00 Only Elena 57235.1.[address] 3.430.2.7 Hospit a .3.851580 l .8 2022-10-05 2022-10-05 Refill Gregg, 1.2.840.1 [id number] Methodi 00:00:00 00:00:[address] 3.430.2.7 Hospit a .3.708934 l .8 2022-10-05 2022-10-05 Telephone Gregg, 1.2.840.1 [id number] 063 [id number] Methodi 00:00:00 00:00:[address] 3.430.2.7 Hospit a .3.520226 l .8 2022-10-05 2022-10-05 [facility] Gregg, 1.2.840.1 [id number] 39148 Methodi 00:00:00 00:00:00 Only Elena 75683.1.[address] 3.430.2.7 Hospit a .3.866673 l .8 2022-10-05 2022-10-05 Refill Cristino, 1.2.840.1 [id number] 37764 80365 Methodi 00:00:00 00:00:[address] 3.430.2.7 Hospit a .3.436729 l .8 2022-09-15 2022-09-15 Orders Lars Hiba 1.2.840.1 [id number] 2099 960874 Methodi 00:00:00 00:00:[address] 3.430.2.7 Hospit a .3.105356 l .8 2022-09-15 2022-09-15 Orders Lars Hiba 1.2.840.1 [id number] 2099 095476 Methodi 00:00:00 00:00:[address] 3.430.2.7 Hospit a .3.661899 l .8 2022-08-21 2022-08-28 Hospital ER Jolly Ash Chanell [facility] [id number] [facility] 18:01:00 16:12:[address] [facility] 2022-08-21 2022-08-28 Inpatient ER LARS SYLVIASaqib SLE Emergency 5 [id number] SLE 18:01:00 16:12:00 2022-08-24 2022-08-24 Anesthesia Jessy [facility] [id number] 08:19:00 10:16:00 Event Elma [facility] 2022-08-24 2022-08-24 Surgery Katy [facility] [id number] [facility] 08:00:00 09:00:00 Waleska Majano [facility] 2022-08-21 2022-08-21 Orders [facility] [id number] 00:00:00 00:00:00 Only [facility] 2022-08-21 2022-08-21 Travel [facility] [id number] [facility] 00:00:00 00:00:00 [facility] 2022-07-26 2022-07-26 Telephone Danita Sousa 1.2.840.1 [id number] 21 [id number] Methodi 13:30:00 14:03:[address] 3.430.2.7 Hospit a .3.049120 l .8 2022-07-26 2022-07-26 Telephone Danita Sousa 1.2.840.1 [id number] 21 [id number] Methodi 13:30:00 14:03:[address] 3.430.2.7 Hospit a .3.062331 l .8 2022-07-13 2022-07-24 Hospital ER Reno Kong [facility] [id number] [facility] 18:58:00 16:09:00 Encounter Darwin Mai [facility] 2022-07-13 2022-07-24 Inpatient ER [facility] Surgery [id number] [facility] 18:58:00 16:09:00 [facility] 2022-07-20 2022-07-[address] [facility] [id number] [place] 14:00:00 14:00:00 [facility] 2022-07-19 2022-07-19 Anesthesia Franki [facility] [id number] [id number] 10:06:00 12:51:00 Event [facility] 2022-07-19 2022-07-19 Surgery Lindsay, [facility] [id number] [id number] 08:00:00 10:55:00 [facility] 2022-07-18 2022-07-18 Outpatient HEMATPO, [facility] [id number] [place] 10:45:00 10:45:00 LANDRY [facility] 2022-07-13 2022-07-13 Orders [facility] [id number] 00:00:00 00:00:00 Only [facility] 2022-06-08 2022-06-26 Hospital ER Torrieanna marieFeliciano Gianni [facility] [id number] [facility] 01:31:00 18:40:00 Encounter Ramsey Holland Yair, Yashtarrs D [facility], Mrinalini Zade [place] Lashae Fowler [facility] 2022-06-08 2022-06-26 Inpatient ER [facility] Cardiac [id number] [facility] 01:31:00 18:40:00 MRINALINI Cath 2022-06-23 2022-06-23 Orders Danita Sousa 1.2.840.1 [id number] 2100 [id number] Methodi 00:00:00 00:00:[address] 3.430.2.7 Hospit a .3.067101 l .8 2022-06-23 2022-06-23 Orders Sylvia Sousaa 1.2.840.1 [id number] 2100 863198 Methodi 00:00:00 00:00:[address] 3.430.2.7 Hospit a .3.872679 l .8 2022-06-11 2022-06-11 [facility] [id number] [id number] 09:10:00 11:16:00 [facility] 2022-06-09 2022-06-09 [facility], [facility] [id number] 15:45:00 18:12:00 [facility] 2022-06-08 2022-06-08 Travel [facility] [id number] [facility] 00:00:00 00:00:00 [facility] 2022-06-08 2022-06-08 Orders [facility] [id number] 00:00:00 00:00:00 Only [facility] 2022-05-18 2022-05-18 Orders Zena 1.2.840.1 [id number] 21 [id number] Methodi 00:00:00 00:00:00 Only Jaylenyra 85085.1.[address] 3.430.2.7 Hospit a .3.625371 l .8 2022-05-18 2022-05-18 Carmen Coe, 1.2.840.1 [id number] 21 [id number] Methodi 00:00:00 00:00:[address] Wang 3.430.2.7 Hospit a .3.211868 l .8 2022-05-18 2022-05-18 Bhargav Freitas, 1.2.840.1 [id number] 21 [id number] Methodi 00:00:00 00:00:00 Only Jaimea 87544.1.[address] 3.430.2.7 Hospit a .3.344515 l .8 2022-05-18 2022-05-18 Carmen Coe, 1.2.840.1 [id number] 21 [id number] Methodi 00:00:00 00:00:[address] Wang 3.430.2.7 Hospit a .3.348174 l .8 2022-05-16 2022-05-16 Refill Gregg, 1.2.840.1 [id number] 58158 36743 Methodi 00:00:00 00:00:[address] 3.430.2.7 Hospit a .3.435228 l .8 2022-05-16 2022-05-16 Refill Gregg, 1.2.840.1 [id number] 51628 Methodi 00:00:00 00:00:[address] 3.430.2.7 Hospit a .3.853345 l .8 2022-05-09 2022-05-10 Carmen Coe, 1.2.840.1 [id number] 21 [id number] Methodi 15:45:00 11:22:52 Consult Corunna 38565.1.[address] Wang 3.430.2.7 Hospit a .3.376173 l .8 2022-05-09 2022-05-10 Telephone Magno, 1.2.840.1 [id number] 21 [id number] Methodi 15:45:00 11:22:52 Consult Rafy 53304.1.[address] Wang 3.430.2.7 Hospit a .3.553070 l .8 2022-04-26 2022-04-26 Telephone Magno, 1.2.840.1 [id number] 21 [id number] Methodi 00:00:00 00:00:[address] Wang 3.430.2.7 Hospit a .3.136631 l .8 2022-04-26 2022-04-26 Telephone Magno, 1.2.840.1 [id number] 21 [id number] Methodi 00:00:00 00:00:[address] [facility] 3.430.2.7 Hospit a .3.322613 l .8 2022-04-21 2022-04-21 Travel 1.2.840.1 1.2.912.831 4101 294116 Methodi 00:00:00 00:00:[address] 3.430.2.7 0.2.7.3.698 Ho spita .3.734922 084.8 l .8 2022-04-21 2022-04-21 Telephone Ruthie, 1.2.840.1 [id number] 642 [id number] Methodi 00:00:00 00:00:[address] [facility] 3.430.2.7 Hospi ta .3.847588 l .8 2022-04-21 2022-04-21 Telephone Magno, 1.2.840.1 [id number] 21 [id number] Methodi 00:00:00 00:00:[address] Wang 3.430.2.7 Hospit a .3.676572 l .8 2022-04-21 2022-04-21 Travel 1.2.840.1 1.2.407.987 3591 140720 Methodi 00:00:00 00:00:[address] 3.430.2.7 0.2.7.3.698 Ho spita .3.450121 084.8 l .8 2022-04-21 2022-04-21 Telephone Ruthie, 1.2.840.1 [id number] 321 7811856 Methodi 00:00:00 00:00:[address] James 3.430.2.7 Hospi ta .3.212882 l .8 2022-04-21 2022-04-21 Telephone Magno, 1.2.840.1 [id number] Methodi 00:00:00 00:00:[address] Wang 3.430.2.7 Hospit a .3.893022 l .8 2022-04-14 2022-04-14 Telephone Danita Sousa 1.2.840.1 [id number] 81410412 Methodi 12:30:00 13:00:[address] 3.430.2.7 Hospit a .3.837744 l .8 2022-04-14 2022-04-14 Telephone Lars Hiba 1.2.840.1 126925284 [id number] Methodi 12:30:00 13:00:[address] 3.430.2.7 Hospit a .3.771868 l .8 2022-04-13 2022-04-13 Refill Gregg, 1.2.840.1 [id number] Methodi 00:00:00 00:00:[address] 3.430.2.7 Hospit a .3.322208 l .8 2022-04-13 2022-04-13 Refill Gregg, 1.2.840.1 [id number] Methodi 00:00:00 00:00:[address] 3.430.2.7 Hospit a .3.468640 l .8 2022-04-03 2022-04-03 Lab Lars Hiba 1.2.840.1 [id number] 2099 359250 Methodi 11:40:00 11:45:[address] 3.430.2.7 Hospit a .3.961385 l .8 2022-04-03 2022-04-03 Lab Lars Hiba 1.2.840.1 [id number] 2099 765621 Methodi 11:40:00 11:45:[address] 3.430.2.7 Hospit a .3.045137 l .8 2022-04-03 2022-04-03 Office Lars Hiba 1.2.840.1 [id number] 2099 149865 Methodi 10:30:00 11:06:[address] 3.430.2.7 Hospit a .3.632356 l .8 2022-04-03 2022-04-03 Office Lars Hiba 1.2.840.1 [id number] 2099 152051 Methodi 10:30:00 11:06:[address] 3.430.2.7 Hospit a .3.578901 l .8 2022-04-03 2022-04-03 Travel 1.2.840.1 1.2.120.054 2236 660823 Methodi 00:00:00 00:00:[address] 3.430.2.7 0.2.7.3.698 Ho spita .3.083577 084.8 l .8 2022-04-03 2022-04-03 Travel 1.2.840.1 1.2.117.621 0794 289798 Methodi 00:00:00 00:00:[address] 3.430.2.7 0.2.7.3.698 Ho spita .3.651864 084.8 l .8 2022-03-28 2022-03-28 Orders Doctor GOYO 1.2.840.114 788702 61 Univers 00:00:00 00:00:00 Only Unassigned, MERLY 350.1.13.10 ity of [place] [facility] 4.2.7.2.686 Bhavik as 143.8400054 [place] [address] [place] 2022-03-28 2022-03-28 Refill Freitas, 1.2.840.1 [id number] 21 [id number] Methodi 00:00:00 00:00:[address] 3.430.2.7 Hospit a .3.267754 l .8 2022-03-28 2022-03-28 Refill Freitas, 1.2.840.1 [id number] 21 [id number] Methodi 00:00:00 00:00:[address] 3.430.2.7 Hospit a .3.143282 l .8 2022-03-27 2022-03-27 Telephone Chang, 1.2.840.1 [id number] 2100 579563 Methodi 00:00:00 00:00:[address] Helen 3.430.2.7 Hospit a .3.097147 l .8 2022-03-27 2022-03-27 Telephone Chang, 1.2.840.1 [id number] 2100 333488 Methodi 00:00:00 00:00:[address] Helen 3.430.2.7 Hospit a .3.881833 l .8 2022-03-24 2022-03-24 Travel 1.2.840.1 1.2.469.587 1522 125691 Methodi 00:00:00 00:00:[address] 3.430.2.7 0.2.7.3.698 Ho spita .3.676978 084.8 l .8 2022-03-24 2022-03-24 Travel 1.2.840.1 1.2.279.779 5416 808050 Methodi 00:00:00 00:00:[address] 3.430.2.7 0.2.7.3.698 Ho spita .3.245242 084.8 l .8 2022-03-22 2022-03-22 Office Aster, 1.2.840.1 [id number] 988 7118802 Methodi 13:00:00 15:26:13 Visit Trey 36006.1.[address] 3.430.2.7 Hospit a .3.023896 l .8 2022-03-22 2022-03-22 Office Aster, 1.2.840.1 821327054 972 7411136 Methodi 13:00:00 15:26:13 Visit Trey 37710.1.[address] 3.430.2.7 Hospit a .3.035820 l .8 2022-03-22 2022-03-22 Travel 1.2.840.1 1.2.067.305 3719 803878 Methodi 00:00:00 00:00:[address] 3.430.2.7 0.2.7.3.698 Ho spita .3.069255 084.8 l .8 2022-03-22 2022-03-22 Travel 1.2.840.1 1.2.704.367 9042 547412 Methodi 00:00:00 00:00:[address] 3.430.2.7 0.2.7.3.698 Ho spita .3.354419 084.8 l .8 2022-02-24 2022-02-24 Bhargav De Jesus, 1.2.840.1 479046999 92817 00558 Methodi 00:00:00 00:00:00 Only Ryann 89623.1.[address] James 3.430.2.7 Hospi ta .3.875351 l .8 2022-02-24 2022-02-24 Bhargav De Jesus, 1.2.840.1 302529851 52532 87247 Methodi 00:00:00 00:00:00 Only Ryann 96071.1.[address] James 3.430.2.7 Hospi ta .3.325485 l .8 2022-02-23 2022-02-23 Travel 1.2.840.1 1.2.627.496 8374 261662 Methodi 00:00:00 00:00:[address] 3.430.2.7 0.2.7.3.698 Ho spita .3.405732 084.8 l .8 2022-02-23 2022-02-23 Telephone Ruthie, 1.2.840.1 [id number] 495 [id number] Methodi 00:00:00 00:00:[address] James 3.430.2.7 Hospi ta .3.440823 l .8 2022-02-23 2022-02-23 [facility] [id number] 2317 [place] 00:00:00 00:00:[address] 2022-02-23 2022-02-23 Travel 1.2.840.1 1.2.176.950 5277 137017 Methodi 00:00:00 00:00:[address] 3.430.2.7 0.2.7.3.698 Ho spita .3.422543 084.8 l .8 2022-02-23 2022-02-23 [facility] 1.2.840.1 [id number] 793 6412186 Methodi 00:00:00 00:00:[address] James 3.430.2.7 Hospi ta .3.712755 l .8 2022-02-22 2022-02-22 Refill Zena, 1.2.840.1 [id number] 11400499 Methodi 00:00:00 00:00:[address] 3.430.2.7 Hospit a .3.127943 l .8 2022-02-22 2022-02-22 Refill Zena, 1.2.840.1 [id number] 21 [id number] Methodi 00:00:00 00:00:[address] 3.430.2.7 Hospit a .3.898042 l .8 2022-02-07 2022-02-07 Office Méndez, 1.2.840.1 [id number] 780855 9581 Methodi 11:20:00 11:30:00 Visit Oliver Dial 68519.1.[address] 3.430.2.7 Hospit a .3.553633 l .8 2022-02-07 2022-02-07 Office Méndez, 1.2.840.1 [id number] 428742 7334 Methodi 11:20:00 11:30:00 Visit Oliver Dial 93349.1.[address] 3.430.2.7 Hospit a .3.646113 l .8 2022-02-07 2022-02-07 Telephone [facility], 1.2.840.1 [id number] 2 [id number] Methodi 00:00:00 00:00:[address] 3.430.2.7 Hospit a .3.285290 l .8 2022-02-07 2022-02-07 Travel 1.2.840.1 1.2.431.502 0667 186478 Methodi 00:00:00 00:00:[address] 3.430.2.7 0.2.7.3.698 Ho spita .3.434241 084.8 l .8 2022-02-07 2022-02-07 Telephone [facility], 1.2.840.1 [id number] 2 [id number] Methodi 00:00:00 00:00:[address] 3.430.2.7 Hospit a .3.628123 l .8 2022-02-07 2022-02-07 Travel 1.2.840.1 1.2.242.067 2369 579620 Methodi 00:00:00 00:00:[address] 3.430.2.7 0.2.7.3.698 Ho spita .3.606871 084.8 l .8 2022-02-02 2022-02-02 Office Patria Peck 1.2.840.1 [id number] Methodi 14:00:00 14:46:46 Visit Rafy Coe 21728.1.[address] 3.430.2.7 Hospit a .3.334492 l .8 2022-02-02 2022-02-02 Travel 1.2.840.1 1.2.291.672 7971 253240 Methodi 00:00:00 00:00:[address] 3.430.2.7 0.2.7.3.698 Ho spita .3.726517 084.8 l .8 2022-01-24 2022-01-24 Telephone Magno 1.2.840.1 [id number] 21 22943753 Methodi 00:00:00 00:00:[address] Wang 3.430.2.7 Hospit a .3.855680 l .8 2022-01-23 2022-01-23 Telephone Magno 1.2.840.1 324388967 [id number] Methodi 00:00:00 00:00:[address] Wang 3.430.2.7 Hospit a .3.102287 l .8 2022-01-23 2022-01-23 Telephone Yulia 1.2.840.1 [id number] 529 9217416 Methodi 00:00:00 00:00:[address] 3.430.2.7 Hospit a .3.442187 l .8 2022-01-19 2022-01-19 Telephone Gregg, 1.2.840.1 [id number] 433 9327429 Methodi 00:00:00 00:00:[address] 3.430.2.7 Hospit a .3.071683 l .8 2022-01-18 2022-01-18 Emergency X , [facility] ERT [id number] 60 Univers 11:39:00 15:13:00 NEREYDA fortune of [facility] 2022-01-18 2022-01-18 Emergency , [facility] 1.2.706.366 4525 2833 Univers 11:39:00 15:13:00 Nereyda DOS SANTOS 350.1.13.10 i ty [facility] 4.2.7.2.686 [facility] [phone] [address] 2022-01-17 2022-01-17 Travel 1.2.840.1 1.2.959.494 2055 830281 Methodi 00:00:00 00:00:[address] 3.430.2.7 0.2.7.3.698 spita .3.120983 084.8 l .8 2022-01-17 2022-01-17 Telephone Yulia, 1.2.840.1 024564922 264 7180081 Methodi 00:00:00 00:00:[address] 3.430.2.7 Hospit a .3.079284 l .8 2022-01-16 2022-01-16 Telephone Yulia, 1.2.840.1 [id number] 516 8287046 Methodi 00:00:00 00:00:[address] 3.430.2.7 Hospit a .3.263093 l .8 2022-01-10 2022-01-10 Office Ruthie, 1.2.840.1 575874022 45533 15904 Methodi 13:20:00 14:22:30 Visit Ryann 56804.1.[address] James 3.430.2.7 Hospi ta .3.405383 l .8 2022-01-10 2022-01-10 [facility] 1.2.840.114 30639 837 Univers 00:00:00 00:00:00 Wondiful A HEALTH 350.1.13.10 ity of [place] 4.2.7.2.686 Bhavik as SINAI?BLEA [phone] [facility] [address] [facility] OFFICE BUILDING 2022-01-10 2022-01-10 Travel 1.2.840.1 1.2.675.330 6193 092885 Methodi 00:00:00 00:00:[address] 3.430.2.7 0.2.7.3.698 Ho spita .3.118747 084.8 l .8 2022-01-04 2022-01-04 Telephone [facility] 1.2.840.114 96 226307 Univers 00:00:00 00:00:00 Sergio L HEALTH 350.1.13.10 it y of [place] 4.2.7.2.686 Bhavik as SINAI?BLEA [phone] [facility] [address] [facility] OFFICE BUILDING 2022-01-03 2022-01-03 Telephone Yulia, 1.2.840.1 [id number] 690 [id number] Methodi 00:00:00 00:00:[address] 3.430.2.7 Hospit a .3.924986 l .8 2021-12-27 2021-12-27 [facility] 1.2.840.114 34818 610 Univers 00:00:00 00:00:00 Wondiful A HEALTH 350.1.13.10 ity of [place] 4.2.7.2.686 Bhavik as SINAI?BLEA [phone] [facility] [address] [facility] OFFICE [facility] 2021-12-27 2021-12-27 Telephone Yulia, 1.2.840.1 [id number] 993 [id number] Methodi 00:00:00 00:00:[address] 3.430.2.7 Hospit a .3.238630 l .8 2021-12-20 2021-12-20 Orders Doctor GOYO 1.2.840.114 [id number] Univers 00:00:00 00:00:00 Only Unassigned, MERLY 350.1.13.10 ity of [facility] 4.2.7.2.686 Bhavik as [phone] [place] [address] [place] 2021-12-15 2021-12-15 Travel 1.2.840.1 1.2.976.358 8408 [id number] Methodi 00:00:00 00:00:[address] 3.430.2.7 0.2.7.3.698 Ho luisata .3.640669 084.8 l .8 2021-12-15 2021-12-15 Refill Angela, 1.2.840.1 [id number] 2099 [id number] Methodi 00:00:00 00:00:[address] 3.430.2.7 Hospit a .3.585161 l .8 2021-12-14 2021-12-14 Telephone Yulia 1.2.840.1 [id number] 038 [id number] Methodi 00:00:00 00:00:[address] 3.430.2.7 Hospit a .3.347717 l .8 2021-12-13 2021-12-13 Telephone Danita Sousa 1.2.840.1 [id number] 21 [id number] Methodi 14:30:00 15:07:[address] 3.430.2.7 Hospit a .3.199330 l .8 2021-12-13 2021-12-13 Travel 1.2.840.1 1.2.378.720 7042 887939 Methodi 00:00:00 00:00:[address] 3.430.2.7 0.2.7.3.698 Ho spita .3.549815 084.8 l .8 2021-12-01 2021-12-01 Telephone [place], 1.2.840.1 [id number] 517 [id number] Methodi 00:00:00 00:00:[address] 3.430.2.7 Hospit a .3.883436 l .8 2021-12-01 2021-12-01 Travel 1.2.840.1 1.2.463.577 0366 543815 Methodi 00:00:00 00:00:[address] 3.430.2.7 0.2.7.3.698 Ho spita .3.498325 084.8 l .8 2021-11-30 2021-11-30 Telephone Yulia, 1.2.840.1 [id number] 506 [id number] Methodi 00:00:00 00:00:[address] 3.430.2.7 Hospit a .3.280175 l .8 2021-11-24 2021-11-24 Telephone [place], 1.2.840.1 [id number] 552 [id number] Methodi 00:00:00 00:00:[address] 3.430.2.7 Hospit a .3.583352 l .8 2021-11-23 2021-11-23 Refarabella Miller 1.2.840.1 [id number] 2100 [id number] Methodi 00:00:00 00:00:[address] 3.430.2.7 Hospit a .3.951350 l .8 2021-11-15 2021-11-15 Billy Bender [facility] 1.2.840.114 [id number] 930 Univers 00:00:00 00:00:00 Wondiful A HEALTH 350.1.13.10 ity of [place] 4.2.7.2.686 Bhavik as SINAI?BLEA [phone] [address] OFFICE BUILDING 2021-11-10 2021-11-10 Telephone [place], 1.2.840.1 [id number] 140 [id number] Methodi 00:00:00 00:00:[address] 3.430.2.7 Hospit a .3.412390 l .8 2021-11-08 2021-11-08 IRON Salazar 1.2.840.114 [id number] Univers 00:00:00 00:00:00 Trey HEALTH 350.1.13.10 it y of [place] 4.2.7.2.686 Bhavik as SINAI?BLEA [phone] [address] 2021-11-08 2021-11-08 Documentat Lars Danita 1.2.840.1 [id number] 2 [id number] Methodi 00:00:00 00:00:[address] 3.430.2.7 Hospit a .3.030414 l .8 2021-11-08 2021-11-08 Telephone Yulia, 1.2.840.1 [id number] 349 [id number] Methodi 00:00:00 00:00:[address] 3.430.2.7 Hospit a .3.853324 l .8 2021-11-04 2021-11-04 Refarabella Bender [facility] 1.2.840.114 [id number] 480 Univers 00:00:00 00:00:00 Wondiful A HEALTH 350.1.13.10 ity of [place] 4.2.7.2.686 Bhavik as SINAI?BLEA [phone] [address] OFFICE [facility] 2021-11-03 2021-11-03 Billy Bender [facility] 1.2.840.114 84513 004 Univers 00:00:00 00:00:00 Wondiful A HEALTH 350.1.13.10 ity of [place] 4.2.7.2.686 Bhavik as SINAI?BLEA [phone] [address] OFFICE BUILDING 2021-11-03 2021-11-03 Telephone Yulia, 1.2.840.1 [id number] 448 [id number] Methodi 00:00:00 00:00:[address] 3.430.2.7 Hospit a .3.279997 l .8 2021-11-01 2021-11-[address] [facility] [id number] Univers 15:00:00 15:00:00 [facility] 2021-11-01 2021-11-01 [facility] [id number] Univers 15:00:00 15:00:00 [facility] 2021-10-31 2021-10-31 [facility] 1.2.840.114 [id number] 23 Univers 00:00:00 00:00:00 Trey HEALTH 350.1.13.10 it y of [place] 4.2.7.2.686 Bhavik as SINAI?BLEA [phone] [address] OFFICE [facility] 2021-10-28 2021-10-28 [facility] 1.2.880.570 1310 8290 Univers 00:00:00 00:00:00 Trey HEALTH 350.1.13.10 it y of [place] 4.2.7.2.686 Bhavik as SINAI?BLEA [phone] [address] OFFICE [facility] 2021-10-28 2021-10-28 Telephone Santiago 1.2.840.1 [id number] 2099 [id number] Methodi 00:00:00 00:00:[address] 3.430.2.7 Hospit a .3.675730 l .8 2021-10-27 2021-10-27 Lab Danita Sousa 1.2.840.1 [id number] 2099 [id number] Methodi 15:10:00 15:15:[address] 3.430.2.7 Hospit a .3.157173 l .8 2021-10-27 2021-10-27 Office Monty Bender 1.2.840.1 [id number] [id number] Methodi 14:00:00 15:07:20 Visit Danita Sousa 39064.1.[address] 3.430.2.7 Hospit a .3.515336 l .8 2021-10-27 2021-10-27 Travel 1.2.840.1 1.2.647.289 6202 370950 Methodi 00:00:00 00:00:[address] 3.430.2.7 0.2.7.3.698 Ho spita .3.336855 084.8 l .8 2021-10-25 2021-10-25 [facility]phone [facility] 1.2.940.987 4698 3962 Univers 00:00:00 00:00:00 Trey HEALTH 350.1.13.10 it y of [place] 4.2.7.2.686 Bhavik as SINAI?BLEA [phone] [address] OFFICE [facility] 2021-10-25 2021-10-25 Travel 1.2.840.1 1.2.733.124 0400 806699 Methodi 00:00:00 00:00:[address] 3.430.2.7 0.2.7.3.698 Ho spita .3.023085 084.8 l .8 2021-10-21 2021-10-21 Outpatient R [facility] [id number] Univers 09:40:00 09:40:00 ISAEL ity of [facility] 2021-10-21 2021-10-21 [facility]phone [facility] 1.2.133.748 8719 9403 Univers 00:00:00 00:00:00 Trey HEALTH 350.1.13.10 it y of [place] 4.2.7.2.686 Bhavik as SIANI?BLEA [phone] [address] OFFICE [facility] 2021-10-17 2021-10-17 Telephone Yulia 1.2.840.1 [id number] Methodi 00:00:00 00:00:[address] 3.430.2.7 Hospit a .3.984049 l .8 2021-10-12 2021-10-12 Telephone LaceyIRON 1.2.223.287 2293 6685 Univers 00:00:00 00:00:00 Trey [facility] 350.1.13.10 it y of [place] 4.2.7.2.686 Bhavik as SINAI?BLEA [id number] [address] OFFICE BUILDING 2021-10-11 2021-10-11 Refill ANA Rahman 1.2.840.114 [id number] 48 Univers 00:00:00 00:00:00 Trey PEDIATRIC 350.1.13.10 [place] [phone] [address] 2021-10-11 2021-10-11 Travel 1.2.840.1 1.2.707.522 5417 441587 Methodi 00:00:00 00:00:[address] 3.430.2.7 0.2.7.3.698 Ho spita .3.609213 084.8 l .8 2021-10-10 2021-10-10 Telephone Yulia, 1.2.840.1 [id number] 174 [id number] Methodi 00:00:00 00:00:[address] 3.430.2.7 Hospit a .3.445356 l .8 2021-10-06 2021-10-06 Telephone Yulia, 1.2.840.1 [id number] 802 [id number] Methodi 00:00:00 00:00:[address] 3.430.2.7 Hospit a .3.035019 l .8 2021-10-06 2021-10-06 Telephone Cristino 1.2.840.1 [id number] 104 [id number] Methodi 00:00:00 00:00:[address] 3.430.2.7 Hospit a .3.238945 l .8 2021-10-05 2021-10-05 Travel 1.2.840.1 1.2.739.884 4821 815637 Methodi 00:00:00 00:00:[address] 3.430.2.7 0.2.7.3.698 Ho spita .3.086588 084.8 l .8 2021-10-03 2021-10-03 [facility] 1.2.840.114 112113 13 Univers 00:00:00 00:00:00 [facility] 350.1.13.10 it y of [place] 4.2.7.2.686 Bhavik as SINAI?BLEA [id number] [address] OFFICE [facility] 2021-09-20 2021-09-20 Telephone Pooja, 1.2.840.1 [id number] 2099 [id number] Methodi 00:00:00 00:00:00 Bee [address]iddle [address]41.1.[address] 3.430.2.7 Hospit a .3.826182 l .8 2021-09-15 2021-09-15 Telephone Yulia, 1.2.840.1 [id number] 373 [id number] Methodi 00:00:00 00:00:[address] 3.430.2.7 Hospit a .3.482609 l .8 2021-09-14 2021-09-14 Refill Yulia, 1.2.840.1 [id number] 53591 31158 Methodi 00:00:00 00:00:[address] 3.430.2.7 Hospit a .3.034151 l .8 2021-09-14 2021-09-14 Travel 1.2.840.1 1.2.304.260 0545 586505 Methodi 00:00:00 00:00:[address] 3.430.2.7 0.2.7.3.698 spita .3.390728 084.8 l .8 2021-09-14 2021-09-14 Telephone Evy Clements 1.2.840.1 [id number] Methodi 00:00:00 00:00:[address] 3.430.2.7 Hospit a .3.443189 l .8 2021 2021 Telephone Angela, 1.2.840.1 [id number] Methodi 00:00:00 00:00:[address] 3.430.2.7 Hospit a .3.990082 l .8 2021 2021 Telephone Yulia, 1.2.840.1 [id number] 250 [id number] Methodi 00:00:00 00:00:[address] 3.430.2.7 Hospit a .3.021935 l .8 2021 2021 Orders Yulia, 1.2.840.1 [id number] 70616 61394 Methodi 00:00:00 00:00:00 Only Wondiful 74501.1.[address] 3.430.2.7 Hospit a .3.874476 l .8 2021-09-09 2021-09-09 Telephone Moody, 1.2.840.1 [id number] Methodi 00:00:00 00:00:[address] 3.430.2.7 Hospit a .3.269690 l .8 2021-09-08 2021-09-08 Lab [place], 1.2.840.1 [id number] 62131 83584 Methodi 13:20:00 13:30:[address] 3.430.2.7 Hospit a .3.615465 l .8 2021-09-08 2021-09-08 Lab [place], 1.2.840.1 [id number] 27531 39341 Methodi 12:20:00 12:25:[address] 3.430.2.7 Hospit a .3.298554 l .8 2021-09-08 2021-09-08 Office Yulia, 1.2.840.1 [id number] 51993 46102 Methodi 10:45:00 12:00:09 Visit Wondiful 59832.1.[address] 3.430.2.7 Hospit a .3.650525 l .8 2021-09-08 2021-09-08 Telephone Yulia, 1.2.840.1 [id number] 662 [id number] Methodi 00:00:00 00:00:[address] 3.430.2.7 Hospit a .3.999076 l .8 2021-09-08 2021-09-08 Travel 1.2.840.1 1.2.042.563 4897 659996 Methodi 00:00:00 00:00:[address] 3.430.2.7 0.2.7.3.698 Ho spita .3.777367 084.8 l .8 2021-09-08 2021-09-08 Outpatient YULIA, [facility] [id number] 2281 Wolsey 00:00:00 00:00:[address] 2021-09-01 2021-09-01 Refill Yulia, 1.2.840.1 [id number] 31412 94511 Methodi 00:00:00 00:00:[address] 3.430.2.7 Hospit a .3.119464 l .8 2021-08-30 2021-08-30 Outpatient JERE_KATHY_Y [facility] 106 166-202 [place] 03:06:00 03:06:00 AW [address] da [facility] 2021-08-18 2021-08-18 Refarabella Bender, 1.2.840.1 [id number] 85580 Methodi 00:00:00 00:00:[address] 3.430.2.7 Hospit a .3.658866 l .8 2021-08-16 2021-08-16 Outpatient R LACEY, [facility] [id number] Univers 14:30:00 14:30:00 TREY brittny [facility] 2021-08-16 2021-08-16 [facility] [id number] 165 Univers 14:30:00 14:30:00 TREY brittny [facility] 2021-08-16 2021-08-16 [facility] [id number] Univers 08:30:00 08:30:00 [facility] 2021-08-15 2021-08-15 [facility] 1.2.840.114 [id number] Univers 00:00:00 00:00:00 Trey HEALTH 350.1.13.10 it y of [place] 4.2.7.2.686 Bhavik as SINAI?BLEA [id number] [address] OFFICE [facility] 2021-08-15 2021-08-15 Billy [facility] 1.2.840.114 [id number] 75 Univers 00:00:00 00:00:00 Trey HEALTH 350.1.13.10 it y of [place] 4.2.7.2.686 Bhavik as SINAI?BLEA [id number] [address] MEDICAL OFFICE [facility] 2021-08-15 2021-08-15 Bhargav Bender 1.2.840.1 [id number] 37004 51114 Methodi 00:00:00 00:00:00 Only Wondiful 16635.1.[address] 3.430.2.7 Hospit a .3.398919 l .8 2021-08-15 2021-08-15 Refarabella Bender 1.2.840.1 [id number] 37889 Methodi 00:00:00 00:00:[address] 3.430.2.7 Hospit a .3.778480 l .8 2021-08-11 2021-08-11 Refarabella Diego [facility] 1.2.840.114 79912 925 Univers 00:00:00 00:00:00 Beau Rivera DOC 350.1.13.10 it[place] [phone] [facility] 086 [place] 2021-08-11 2021-08-11 Telephone Mara 1.2.840.1 [id number] 2099 139621 Methodi 00:00:00 00:00:00 Ren[address] T [address].1.[address] 3.430.2.7 Hospit a .3.275493 l .8 2021-08-11 2021-08-11 Travel 1.2.840.1 1.2.568.803 9883 964543 Methodi 00:00:00 00:00:[address] 3.430.2.7 0.2.7.3.698 Ho spita .3.401255 084.8 l .8 2021-08-09 2021-08-09 Telephone [facility] 1.2.204.473 3275 7842 Univers 00:00:00 00:00:00 Thomas DOS SANTOS 350.1.13.10 ity of [place] [phone] Mo kyung NAL 059 [facility] 2021-08-08 2021-08-08 Refarabella [facility]NOR[facility] 1.2.840.114 66362 059 Univers 00:00:00 00:00:00 Wondiful A HEALTH 350.1.13.10 ity of [place] [facility] 4.2.7.2.686 Bhavik as SINAI?BLEA [phone] Mo kyung [address]INS [address] [place] MEDICAL OFFICE BUILDING 2021-08-03 2021-08-03 Refarabella [facility]enderNOR[facility] 1.2.840.114 66651 021 Univers 00:00:00 00:00:00 Wondiful A HEALTH 350.1.13.10 ity of [place] [facility] 4.2.7.2.686 Bhavik as SINAI?BLEA [phone] [address] MEDICAL OFFICE [facility] 2021-08-02 2021-08-02 Billy Bender [facility] 1.2.840.114 [id number] 846 Univers 00:00:00 00:00:00 Wondiful A HEALTH 350.1.13.10 ity of [place] 4.2.7.2.686 Bhavik as SIANI?BLEA [id number] [address] OFFICE [facility] 2021-07-29 2021-07-29 Outpatient R LACEY [facility] [id number] Univers 15:00:00 15:00:00 TREY ity of [facility] 2021-07-28 2021-07-28 Orders Doctor GOYO 1.2.840.114 [id number] Univers 00:00:00 00:00:00 Only Unassigned, MERLY 350.1.13.10 ity of [place] [facility] 4.2.7.2.686 Bhavik as [phone] [address] 2021-07-27 2021-07-27 Telephone [facility] 1.2.224.608 3046 3236 Univers 00:00:00 00:00:00 Thomas DOS SANTOS 350.1.13.10 it[place] of [place].2.[place] [phone] [facility] 059 [facility] 2021-07-27 2021-07-27 Telephone [facility] 1.2.507.281 5572 4433 Univers 00:00:00 00:00:00 Trey HEALTH 350.1.13.10 it y of [place] 4.2.7.2.686 Bhavik as SINAI?BLEA [phone] [address] OFFICE [facility] 2021-07-22 2021-07-22 Telephone [facility] 1.2.105.329 5820 7739 Univers 00:00:00 00:00:00 Thomas DOS SANTOS 350.1.13.10 it[place].2.[place] [phone] Mo kyung NAL 059 [facility] 2021-07-21 2021-07-21 Telephone [facility] 1.2.840.114 923 63343 Univers 00:00:00 00:00:00 Wondiful A HEALTH 350.1.13.10 ity of [place] [facility] 4.2.7.2.686 Bhavik as SINAI?BLEA [phone] Mo kyung HIGGINS [address] [facility] OFFICE [facility] 2021-07-21 2021-07-21 Telephone [facility] 1.2.840.114 924 [id number] Univers 00:00:00 00:00:00 Wondiful A HEALTH 350.1.13.10 ity of [place] 4.2.7.2.686 Bhavik as SINAI?BLEA [phone] [facility] [address] 2021-07-20 2021-07-20 Telephone [facility] 1.2.840.114 923 33764 Univers 00:00:00 00:00:00 Wondiful A HEALTH 350.1.13.10 ity of [place] 4.2.7.2.686 Bhavik as SINAI?BLEA [phone] [facility] BESSIE[address] 2021-07-18 2021-07-18 Orders Doctor GOYO 1.2.840.114 [id number] Univers 00:00:00 00:00:00 Only Unassigned, MERLY 350.1.13.10 ity of [place] [facility] 4.2.7.2.686 Bhavik as [phone] [address] 2021-07-08 2021-07-08 Telephone [facility] 1.2.840.114 [id number] Univers 00:00:00 00:00:00 Sherice DOS SANTOS 350.1.13.10 i ty of [place] [phone] Mo dical NAL 188 [facility] 2021-07-07 2021-07-07 Telephone [facility] 1.2.840.114 [id number] Univers 00:00:00 00:00:00 Sherice DOS SANTOS 350.1.13.10 i ty of [place] 4.2.7.2.686 Michele wong PROFESSIO [phone] Mo dical NAL 188 [facility] 2021-07-05 2021-07-05 Anesthesia Enrique, 1.2.840.9 [id number] 91 [id number] Univers 08:05:12 08:05:12 Event Ambrocio 24249.1.1 ity of 3.104.2.7 [place] .3.341483 Medica l .[address] [place] [address] 2021-07-05 2021-07-05 Outpatient [facility] [id number] 83499 Univers 06:45:00 07:53:00 SHERICE fortune [facility] 2021-07-05 2021-07-05 [facility] 1.2.840.8 [id number] Univers 06:45:00 07:53:00 Encounter Sherice 96066.1.1 it y of 3.104.2.7 [place] .3.964079 Medica l .[address] [place] [address] 2021-07-05 2021-07-05 Outpatient [facility] SAW 24901 [id number] Univers 06:45:00 07:53:00 SHERICE fortune [facility] 2021-07-04 2021-07-04 Telephone Yulia, 1.2.840.4 [id number] 91 [id number] Univers 00:00:00 00:00:00 Wondiful A 90012.1.1 i ty of 3.104.2.7 [place] .3.258400 Medica l .[address] [place] [address] 2021-07-02 2021-07-02 Laboratory Sherice Rodriguez 1.2.840.1 [id number] Univers 12:00:00 12:15:00 Only Only, Adc Test 49524.1.1 ity of 3.104.2.7 [place] .3.404825 Medica l .[address] [place] [address] 2021-07-02 2021-07-02 Outpatient [facility] [id number] [id number] Univers 12:00:00 12:00:00 SHERICE fortune [facility] 2021-07-02 2021-07-02 [facility] [id number] [id number] Univers 12:00:00 12:00:00 SHERICE ity of [facility] 2021-07-01 2021-07-01 Orders Doctor GOYO 1.2.840.114 [id number] Univers 00:00:00 00:00:00 Only Unassigned, MERLY 350.1.13.10 ity of [place] [facility] 4.2.7.2.686 Bhavik as [phone] [facility] nuria 009 [place] 2021-06-30 2021-06-30 Travel 1.2.840.1 1.2.807.671 4283 1150 Univers 00:00:00 00:00:00 27039.1.1 350.1.13.10 ity of 3.104.2.7 4.[place]7.3.698 [place] .3.251263 084.8 Medica l .8 [place] 2021-06-23 2021-06-23 Telephone [place], 1.2.840.9 [id number] Univers 00:00:00 00:00:00 Sherice 69849.1.1 ity of 3.104.2.7 [place] .3.085960 Medica l .8 [place] 2021-06-23 2021-06-23 Telephone Hector, 1.2.840.9 [id number] 917 21685 Univers 00:00:00 00:00:00 Marley Saqib 60466.1.1 ity of 3.104.2.7 [place] .3.136176 Medica l .8 [place] 2021-06-23 2021-06-23 Telephone Yulia, 1.2.840.3 [id number] 91 [id number] Univers 00:00:00 00:00:00 Wondiful A 06376.1.1 i ty of 3.104.2.7 [place] .3.307605 Medica l .8 [place] 2021-06-22 2021-06-22 Outpatient Janessa BENDER [facility] [id number] Univers 10:53:35 23:59:00 WONDIFUL ity o f [facility] 2021-06-22 2021-06-22 Outpatient Janessa BENDER [facility] [id number] Univers 10:53:35 23:59:00 WONDIFUL ity o f [facility] 2021-06-22 2021-06-22 Hospital Yulia, 1.2.840.6 [id number] 915 45371 Univers 10:53:35 23:59:00 Encounter Wondiful A 19008.1.1 ity of 3.104.2.7 [place] .3.900863 Medica l .8 [place] 2021-06-20 2021-06-20 [facility] [id number] 84815 Univers 09:30:00 10:56:29 SHERICE devika [facility] 2021-06-20 2021-06-20 Office [facility] 1.2.482.114 2916 5622 Univers 09:30:00 10:56:29 Visit Sherice DOS SANTOS 350.1.13.10 i ty [facility] 4.2.7.2.[place] [phone] Mo dical NAL [address] [place] [address] 2021-06-20 2021-06-20 [facility] [id number] 02052 Univers 09:30:00 10:56:29 SHERICE stephaniebrittny [facility] 2021-06-20 2021-06-20 Office [place] 1.2.840.7 [id number] 907 [id number] Univers 09:30:00 10:56:29 Visit Sherice 59164.1.1 ity of 3.104.2.7 [place] .3.053027 Medica l .8 [place] 2021-06-20 2021-06-20 Outpatient R GARFIELD [facility] [id number] Univers 09:30:00 10:56:29 SHERICE devika [facility] 2021-06-20 2021-06-20 Outpatient [facility] [id number] Univers 09:30:00 10:56:29 SHERICE devika [facility] 2021-06-20 2021-06-20 Orders Doctor NANCE 1.2.840.114 [id number] Univers 00:00:00 00:00:00 Only Unassigned, MERLY 350.1.13.10 ity of [place] [facility] 4.2.7.2.686 Bhavik as 127.4599493 Medi nuria 009 [place] 2021-06-20 2021-06-20 Prep For Garfield [facility] 1.2.840.114 915 [id number] Univers 00:00:00 00:00:00 Surgery Sherice DOS SANTOS 350.1.13.10 i ty [place] 4.[place].7.2.[place] [phone] Me dical NAL 188 [facility] 2021-06-20 2021-06-20 Prep For [place], 1.2.840.8 [id number] 91 [id number] Univers 00:00:00 00:00:00 Surgery Sherice 69879.1.1 ity of 3.104.2.7 [place] .3.434864 Medica l .8 [place] 2021-06-20 2021-06-20 Orders Doctor 1.2.840.5 [id number] Univers 00:00:00 00:00:00 Only Unassigned, 74696.1.1 ity of [place] 3.104.2.7 [place] .3.758935 Medica l .8 [place] 2021-06-20 2021-06-20 Travel 1.2.840.1 1.2.875.479 8404 0087 Univers 00:00:00 00:00:00 46299.1.1 350.1.13.10 ity of 3.104.2.7 4[place]7.3.698 [place] .3.407268 084.8 Medica l .8 [place] 2021-06-14 2021-06-[address] [facility] [id number] Univers 09:20:00 09:20:[address] ity of [facility] 2021-06-09 2021-06-09 Telephone Outpatient, LORENA 1.2.840.114 [id number] Univers 00:00:00 00:00:00 Pm/Icd MERLY 350.1.13.10 it y of [place] [facility] 4.2.7.2.686 Bhavik as [id number] Medi nuria 844 [place] 2021-06-09 2021-06-09 Telephone Outpatient, 1.2.840.4 [id number] Univers 00:00:00 00:00:00 Pm/Icd 04652.1.1 ity of [place] 3.104.2.7 [place] .3.291909 Medica l 8 [place] 2021-06-06 2021-06-06 Outpatient R MICHAELA [facility] [id number] [id number] Univers 00:00:00 00:00:00 JOHN ity o f [facility] 2021-06-06 2021-06-06 Telephone [facility] 1.2.840.114 [id number] [id number] Univers 00:00:00 00:00:00 Wondiful A HEALTH 350.1.13.10 ity of [place] 4.2.7.2.686 Bhavik as SINAI?BLEA [phone] Mo dical RONALDO [address] [place] MEDICAL OFFICE BUILDING 2021-06-06 2021-06-06 Telephone Yulia, 1.2.840.5 [id number] Univers 00:00:00 00:00:00 Wondiful A 99569.1.1 i ty of 3.104.2.7 [place] .3.550579 Medica l .8 [place] 2021-06-02 2021-06-02 Orders Doctor GOYO 1.2.840.114 [id number] Univers 00:00:00 00:00:00 Only Unassigned, MERLY 350.1.13.10 ity of [place] [facility] 4.2.7.2.686 Bhavik as [phone] [facility] 009 [place] 2021-06-02 2021-06-02 Orders Doctor 1.2.840.1 [id number] Univers 00:00:00 00:00:00 Only Unassigned, 98136.1.1 ity of [place] 3.104.2.7 [place] .3.492902 Medica [facility]8 [place] 2021-06-01 2021-06-01 [facility] 1.2.840.114 75614 686 Univers 00:00:00 00:00:00 Wondiful A HEALTH 350.1.13.10 ity of [place] 4.2.7.2.686 Bhavik as SINAI?BLEA [phone] [address] MEDICAL OFFICE [facility] 2021-06-01 2021-06-01 Refill Yulia, 1.2.840.0 [id number] 9113 1686 Univers 00:00:00 00:00:00 Wondiful A 24795.1.1 i ty of 3.104.2.7 [place] .3.073559 Medica l .8 [place] 2021-05-31 2021-05-31 Telephone [place], [facility] 1.2.840.114 910 [id number] Univers 00:00:00 00:00:00 Wondiful A HEALTH 350.1.13.10 ity of [place] [facility] 4.2.7.2.686 Bhavik as SINAI?BLEA [phone] [address] OFFICE [facility] 2021-05-31 2021-05-31 Telephone Yulia, 1.2.840.1 [id number] 91 [id number] Univers 00:00:00 00:00:00 Wondiful A 78906.1.1 i ty of 3.104.2.7 [place] .3.975913 Medica l .[address] [place] [address] 2021-05-26 2021-05-26 Telephone [facility] 1.2.383.738 3969 2736 Univers 00:00:00 00:00:00 Sendchely DOS SANTOS 350.1.13.10 ity [facility] 4.2.[place] [phone] [facility] 059 [facility] 2021-05-26 2021-05-26 Telephone Manning, 1.2.840.7 [id number] 909 95626 Univers 00:00:00 00:00:00 Sendil K.H. 58847.1.1 ity of 3.104.2.7 [place] .3.053867 Medica l .8 [place] 2021-05-23 2021-05-23 Telephone Manning, [facility] 1.2.856.042 0126 2889 Univers 00:00:00 00:00:00 Sendil K.HLisa [place] 350.1.13.10 ity of [facility] 4.2.7.2.[place] [phone] Mo dical NAL 059 [facility] 2021-05-23 2021-05-23 Telephone Manning, 1.2.840.3 [id number] 909 [id number] Univers 00:00:00 00:00:00 Sendil NicoleLisa 30680.1.1 ity of 3.104.2.7 [place] .3.811505 Medica l .8 [place] 2021-05-17 2021-05-17 Music Publisher Monty Bender 1.2.840.1 1 [id number] Univers 15:45:00 16:33:49 [place] 7[address].1.1 ity of 3.104.2.7 [place] .3.062608 Medica l .8 [place] 2021-05-17 2021-05-17 Music Publisher Lab, Ang - Db [facility] 1.2.840.1 14 [id number] Univers 15:45:00 16:00:00 Visit Monty Bender HEALTH 350.1.13.1 0 ity of [place] 4.2.7.2.686 Bhavik as SINAI?BLEA [phone] Mo dicthomas HIGGINS [address] [facility] OFFICE [facility] 2021-05-17 2021-05-17 [facility] [id number] Univers 15:45:00 15:45:00 WONDIFUL ity o f [facility] 2021-05-17 2021-05-17 [facility] [id number] Univers 15:45:00 15:45:00 WONDIFUL ity o f [facility] 2021-05-17 2021-05-17 Office [facility] 1.2.840.114 [id number] 079 Univers 14:30:00 15:31:43 Visit Monty Cerrato HEALTH 350.1.13.10 ity of [place] 4.2.7.2.686 Bhavik as SINAI?BLEA [phone] Mo dicthomas HIGGINS [address] [facility] OFFICE BUILDING 2021-05-17 2021-05-17 Office Yulia, 1.2.840.0 [id number] Univers 14:30:00 15:31:43 Visit Wondiful A 63888.1.1 i ty of 3.104.2.7 [place] .3.934295 Medica l .8 [place] 2021-05-17 2021-05-17 Travel 1.2.840.1 1.2.703.189 [id number] Univers 00:00:00 00:00:00 82087.1.1 350.1.13.10 ity of 3.104.2.7 4.[place].3.698 [place] .3.275131 084.8 Medica l .8 [place] 2021-05-05 2021-05-05 Outpatient R [facility] [id number] Univers 14:30:00 14:30:00 SENDIL devika [facility] 2021-05-05 2021-05-05 Music Publisher 2, Adc Lab [facility] 1.2.840.114 [id number] Univers 14:30:00 14:30:00 Visit Thomas Manning 350.1.13. 10 [place] [phone] Mo dical NAL 353 [facility] 2021-05-05 2021-05-05 Music Publisher Thomas Manning 1.2.840.1 1 [id number] Univers 14:30:00 14:30:00 Visit 2, Adc Lab 45575.1.1 i ty of 3.104.2.7 [place] .3.164914 Medica l .8 [place] 2021-05-05 2021-05-05 Office Nigel [facility] 1.2.840.114 [id number] Univers 13:00:00 14:25:20 Visit Thomas [place] 350.1.13.10 [facility] 4[place] [phone] Mo dical NAL 059 [facility] 2021-05-05 2021-05-05 [facility] [id number] Univers 13:00:00 14:25:20 SENDIL devika [facility] 2021-05-05 2021-05-05 [facility] [id number] Univers 13:00:00 14:25:20 SENDIL ity [facility] 2021-05-05 2021-05-05 Office [facility] 1.2.840.114 [id number] Univers 13:00:00 14:25:20 Visit Sendil Chapis [place] 350.1.13.10 [facility] 4.[place] [phone] Mo dical NAL 059 [facility] 2021-05-05 2021-05-05 Office Nigel, 1.2.840.7 [id number] Univers 13:00:00 14:25:20 Visit [place] 18914.1.1 ity of 3.104.2.7 [place] .3.905474 Medica l .8 [place] 2021-05-05 2021-05-05 [facility] [id number] Univers 13:00:00 13:00:00 SENDIL ity [facility] 2021-05-05 2021-05-05 Travel 1.2.840.1 1.2.291.861 [id number] Univers 00:00:00 00:00:00 43973.1.1 350.1.13.10 ity of 3.104.2.7 [place].3.698 [place] .3.887453 084.8 Medica l .8 [place] 2021-05-02 2021-05-02 [facility] [id number] Univers 14:00:00 14:00:00 SENDIL ity [facility] 2021-04-29 2021-04-29 Telephone [facility] 1.2.840.114 [id number] Univers 00:00:00 00:00:00 Wondiful A HEALTH 350.1.13.10 ity of [facility] 4.2.7.2.686 Bhavik as SINAI?BLEA [phone] Mo dical KNEY [address] [facility] OFFICE [facility] 2021-04-29 2021-04-29 Telephone Yulia, 1.2.840.1 [id number] Univers 00:00:00 00:00:00 Wondiful A 71248.1.1 i ty of 3.104.2.7 [place] .3.051551 Medica l .8 [place] 2021-04-27 2021-04-27 Telephone [facility] 1.2.840.114 [id number] Univers 00:00:00 00:00:00 Dong SPECIALTY 350.1.13.10 [place] [phone] Mo kyung VICTORY 072 [facility] 2021-04-27 2021-04-27 Telephone Greg, 1.2.840.6 [id number] Univers 00:00:00 00:00:00 Dong 26461.1.1 ity of 3.104.2.7 [place] .3.707908 Medica l .8 [place] 2021-04-26 2021-04-26 Telephone [facility] 1.2.726.344 [id number] Univers 00:00:00 00:00:00 Sendil Chapis [place] 350.1.13.10 it[place]2.[place] [phone] Mo kyung NAL 059 [facility] 2021-04-26 2021-04-26 Telephone Nigel, 1.2.840.7 [id number] Univers 00:00:00 00:00:00 Sendil JesusHLisa 50621.1.1 ity of 3.104.2.7 [place] .3.269466 Medica l 8 [place] 2021-04-25 2021-04-25 Outpatient R [facility] [id number] Univers 09:00:00 09:00:00 SENDIL ity of [facility] 2021-04-06 2021-04-06 Telephone [facility] 1.2.840.114 [id number] Univers 00:00:00 00:00:00 Wondiful A HEALTH 350.1.13.10 ity of [facility] 4.2.7.2.686 Bhavik as SINAI?BLEA [phone] [place] [facility] [address] MEDICAL OFFICE [facility] 2021-04-05 2021-04-05 Outpatient R EDE [facility] [id number] Univers 10:00:00 23:59:00 ISAEL ity of [facility] 2021-04-05 2021-04-05 Hospital [facility] 1.2.840.114 [id number] Univers 10:00:00 23:59:00 Encounter Isael [place] 350.1.13.10 ity of [place] [phone] [facility] 844 [facility] 2021-04-05 2021-04-05 [facility] [id number] Univers 10:00:00 23:59:00 ISAEL ity of [facility] 2021-04-04 2021-04-04 [facility]phone [facility] 1.2.840.114 [id number] Univers 00:00:00 00:00:00 Sudhir Gene HEALTH 350.1.13.10 ity of [place] 4.2.7.2.686 Bhavik as SINAI?BLEA [phone] [facility] [address] [facility] OFFICE [facility] 2021-03-22 2021-03-22 Outpatient R [facility] [id number] Univers 10:20:00 10:20:00 ISAEL ity of [facility] 2021-03-22 2021-03-22 Outpatient R [facility] [id number] Univers 10:20:00 10:20:00 ISAEL ity of [facility] 2021-03-22 2021-03-22 Telephone [facility] 1.2.840.114 [id number] Univers 00:00:00 00:00:00 Wondiful A HEALTH 350.1.13.10 ity of [place] [facility] 4.2.7.2.686 Bhavik as SINAI?BLEA [phone] [facility] [address] MEDICAL OFFICE [facility] 2021-03-22 2021-03-22 Orders Doctor NANCE 1.2.840.114 [id number] Univers 00:00:00 00:00:00 Only Unassigned, MERLY 350.1.13.10 ity of [facility] 4.2.7.2.686 Bhavik as [phone] [address] 2021-03-07 2021-03-07 Outpatient R NIGEL [facility] [id number] Univers 14:00:00 14:00:00 SENDIL ity of [facility] 2021-03-07 2021-03-07 Out[facility] [id number] Univers 14:00:00 14:00:00 SENDIL ity [facility] 2021-03-07 2021-03-07 Refill [facility] 1.2.840.114 [id number] Univers 00:00:00 00:00:00 Wondiful A HEALTH 350.1.13.10 ity of [place] 4.2.7.2.686 Bhavik as PROFESSIO [phone] Mo kyung [place] [address] OFFICE BUILDING ONE 2021-02-28 2021-02-28 Case [facility] 1.2.840.114 [id number] Univers 00:00:00 00:00:00 Management Wondiful A HEALTH 350.1.13.10 ity of [place] 4.2.7.2.686 Bhavik as SINAI?BLEA [phone] Mo kyung LAANNA MARIE [address] MEDICAL OFFICE BUILDING 2021-02-22 2021-02-22 Outpatient R EDE [facility] [id number] Univers 09:20:00 09:20:00 ISAEL ity of [facility] 2021-02-15 2021-02-15 [employer], Ang - [facility] 1.2.840.1 14 [id number] Univers 14:02:30 14:25:53 Visit Contreras Benderful A Health 350.1.13.1 0 ity of [place] 4.2.7.2.686 Bhavik as Sinai?Blea [phone] Mo kyung higgins [address] Medical Office Building 2021-02-15 2021-02-15 Outpatient R YULIA [facility] [id number] Univers 14:00:00 14:25:53 WONDIFUL ity o f [facility] 2021-02-15 2021-02-15 Office Yulia [facility] 1.2.840.114 [id number] Univers 12:42:40 13:39:30 Visit Wondiful A HEALTH 350.1.13.10 ity of [place] 4.2.7.2.686 Bhavik as SINAI?BLEA [phone] Mo dical KNEY [address] MEDICAL OFFICE [facility] 2021-02-11 2021-02-11 Outpatient [facility] [id number] Univers 14:15:00 14:15:00 WONDIFUL ity o f [facility] 2021-02-10 2021-02-10 Telephone [facility] 1.2.458.896 [id number] Univers 00:00:00 00:00:00 Sendil Chapis Dos [place] 350.1.13.10 ity of [place] [facility] [phone] Mo dical nal 059 [facility] 2021-02-10 2021-02-10 Orders Doctor GOYO 1.2.840.114 [id number] Univers 00:00:00 00:00:00 Only Unassigned, MERLY 350.1.13.10 ity of [place] [facility] 4.2.7.2.686 Bhavik as [phone] [facility] [address] 2021-02-08 2021-02-08 Out[facility] [id number] Univers 11:00:00 11:00:00 SENDIL ity [facility] 2021-02-08 2021-02-08 Outpatient [facility] [id number] Univers 11:00:00 11:00:00 SENDIL ity [facility] 2021-02-07 2021-02-07 [facility] 1.2.840.114 [id number] Univers 14:47:22 23:59:00 Encounter Thomas Dos Santos 350.1.13.10 ity of [place].2.7.2.[place] [phone] [facility] [address] 2021-02-07 2021-02-07 Outpatient [facility] [id number] Univers 00:00:00 00:00:00 [facility] 2021-01-31 2021-01-31 Hospital Nilda [facility] 1.2.162.218 [id number] Univers 10:00:00 23:59:00 Encounter Sudhir Dos [place] 350.1.13.10 ity of [place] 4.2.7.2.686 [place] [facility] [phone] [facility] [address] 2021-01-31 2021-01-31 Outpatient SUDHIR QUEVEDO [facility] [id number] Univers 00:00:00 00:00:00 NILDASUDHIR [facility] 2021-01-31 2021-01-31 Orders Doctor NANCE 1.2.840.114 [id number] Univers 00:00:00 00:00:00 Only Unassigned, MERLY 350.1.13.10 [facility] 4.2.7.2.686 Bhavik as [phone] [facility] [address] 2021-01-19 2021-01-19 Outpatient Janessa MANNING [facility] [id number] Univers 10:00:00 10:00:00 SENDIL [facility] 2021-01-18 2021-01-18 Outpatient SUDHIR QUEVEDO [facility] [id number] Univers 00:00:00 00:00:[address] brittny [facility] 2021-01-12 2021-01-12 Outpatient Janessa MANNING [facility] [id number] Univers 09:00:00 09:00:00 SENDIL [facility] 2021-01-11 2021-01-11 Office Nilda [facility] 1.2.840.114 [id number] Univers 13:03:08 14:34:15 Visit Sudhir Jain [facility] 350.1.13.10 ity of [place] 4.2.7.2.686 Bhavik as Sinai?Blea [phone] Mo shanae[address] Medical Office Building 2021-01-11 2021-01-11 Outpatient SUDHIR QUEVEDO [facility] [id number] Univers 13:00:00 13:00:[address] of [facility] 2021-01-05 2021-01-05 Orders Doctor GOYO 1.2.840.114 [id number] Univers 00:00:00 00:00:00 Only Unassigned, MERLY 350.1.13.10 it[facility] 4.2.7.2.686 Bhavik as [phone] [address] 2020-12-28 2020-12-28 [facility] 1.2.840.114 [id number] Univers 00:00:00 00:00:00 Wondiful A Health 350.1.13.10 ity of [place] 4.2.7.2.686 Bhavik as Professio [phone] Mo dical nal [address] Office [facility] 2020-12-22 2020-12-22 Refarabella [facility] 1.2.840.114 [id number] Univers 00:00:00 00:00:00 Wondiful A Health 350.1.13.10 ity of [place] 4.2.7.2.686 Bhavik as Professio [phone] Mo dical nal [address] Office [facility] 2020-12-20 2020-12-20 Office ManningLuc[facility] 1.2.840.114 [id number] Univers 09:15:32 10:23:50 Visit Thomas Dos Santos 350.1.13.10 ity of [place] Profess[place] [phone] Mo dical nal 059 [facility] 2020-12-20 2020-12-20 Outpatient R NIGEL [facility] [id number] Univers 09:00:00 10:23:50 SENDIL ity of [facility] 2020-12-20 2020-12-20 Office [facility] 1.2.840.114 [id number] Univers 09:00:00 10:23:50 Visit Thomas DOS SANTOS 350.1.13.10 ity [facility] 4.2.7.2.[place] PROFESS[place] [phone] Mo dical NAL 059 [facility] 2020-12-20 2020-12-20 Orders Doctor GOYO 1.2.840.114 [id number] Univers 00:00:00 00:00:00 Only Unassigned, MERLY 350.1.13.10 ity of [place] H[facility]PITAL 4.2.7.2.686 Bhavik as [phone] [address] 2020-12-16 2020-12-16 Abstract Maura Roach [facility] 1.2.84 0.114 [id number] [place] 00:00:00 00:00:00 Maura Roach SE MED 350.1.13.58 Health [place] 2 9.2.7.2.686 [id number] 1 2020-12-08 2020-12-08 Orders Doctor GOYO 1.2.840.114 [id number] Univers 00:00:00 00:00:00 Only Unassigned, MERLY 350.1.13.10 ity of [place] HOSPITAL 4.2.7.2.686 Bhavik as [phone] [address] 2020-12-07 2020-12-07 Outpatient SUDHIR QUEVEDO [facility] [id number] [facility] 09:20:00 09:20:[address] [facility] 2020-12-01 2020-12-01 Refarabella Bender [facility] 1.2.840.114 [id number] [facility] 00:00:00 00:00:00 Wondiful A Health 350.1.13.10 ity of [place] 4.2.7.2.686 Bhavik as Professio [phone] [address] Office Building One 2020-11-26 2020-11-26 Outpatient SUDHIR QUEVEDO [facility] [id number] Univers 14:20:00 14:20:[address] [facility] 2020-11-17 2020-11-17 Abstract Shi Porter [facility] 1.2.840.11 4 [id number] [place] 00:00:00 00:00:00 Shi Porter SE MED 350.1.13.58 Health PLA[place] 2 9.2.7.2.686 [id number] 2 2020-11-16 2020-11-16 Telephone Yulia [facility] 1.2.840.114 [id number] Univers 00:00:00 00:00:00 Wondiful A Health 350.1.13.10 ity of [place] 4.2.7.2.686 Bhavik as Professio [phone] [address] Office Building One 2020-11-10 2020-11-10 Case Yulia [facility] 1.2.840.114 [id number] Univers 00:00:00 00:00:00 Management Wondiful A Health 350.1.13.10 ity of [place] 4.2.7.2.686 Bhavik as Professio [phone] [address] Office Building One 2020-11-09 2020-11-09 Orders Doctor GOYO 1.2.840.114 [id number] Univers 00:00:00 00:00:00 Only Unassigned, MERLY 350.1.13.10 ity of [place] HOSPITAL 4.2.7.2.686 Bhavik as [phone] [address] 2020-11-08 2020-11-08 Music [employer] Lab, Adc Fam Pob I [facility] 1.2. 840.114 [id number] Univers 16:09:23 16:29:23 Visit Monty Bender Health 350.1.13.1 0 ity of [place] 4.2.7.2.686 Bhavik as Professio [phone] [address] Office Building One 2020-11-08 2020-11-08 Office Yulia [facility] 1.2.840.114 [id number] Univers 14:59:49 16:07:50 Visit Wondiful A Health 350.1.13.10 ity of [place] 4.2.7.2.686 Bhavik as Professio [phone] [address] Office Building One 2020-11-08 2020-11-08 Outpatient R YULIA [facility] [id number] Univers 15:00:00 15:00:00 WONDIFUL ity o f [facility] 2020-11-08 2020-11-08 Outpatient R YULIA [facility] [id number] Univers 15:00:00 15:00:00 WONDIFUL ity o f [facility] 2020-11-03 2020-11-03 [facility] 1.2.840.114 [id number] Univers 00:00:00 00:00:00 Wondiful A Health 350.1.13.10 ity of [place] 4.2.7.2.686 Bhavik as Professio [phone] [address] One 2020-10-26 2020-10-26 Billy [facility]NOR[facility] 1.2.840.114 [id number] Univers 00:00:00 00:00:00 Wondiful A Health 350.1.13.10 ity of [place] 4.2.7.2.686 Bhavik as Professio [phone] [address] 2020-10-20 2020-10-20 Orders Doctor NANCE 1.2.840.114 [id number] Univers 00:00:00 00:00:00 Only Unassigned, MERLY 350.1.13.10 ity of [place] HOSPITAL 4.2.7.2.686 Hbavik as [phone] [address] 2020-10-15 2020-10-15 [facility]patient [facility] [id number] Univers 13:15:00 13:15:00 WONDIFUL ity o f [facility] 2020-10-13 2020-10-13 Outpatient R IVY [facility] [id number] Univers 15:30:00 15:30:00 ARTEMIO ity of [facility] 2020-10-12 2020-10-12 Orders Doctor GOYO 1.2.840.114 [id number] Univers 00:00:00 00:00:00 Only Unassigned, MERLY 350.1.13.10 ity of [place] HOSPITAL 4.2.7.2.686 Bhavik as [phone] [address] 2020-10-04 2020-10-04 Outpatient R [facility] [id number] Univers 14:30:00 14:30:00 ity of [facility] 2020-09-30 2020-09-30 Orders Doctor GOYO 1.2.840.114 [id number] Univers 00:00:00 00:00:00 Only Unassigned, MERLY 350.1.13.10 ity of [place] H[facility]PITAL 4.2.7.2.686 Bhavik as [phone] [address] 2020-09-28 2020-09-28 Telephone Yulia [facility] 1.2.840.114 [id number] Univers 00:00:00 00:00:00 Wondiful A Health 350.1.13.10 ity of [place] 4.2.7.2.686 Bhavik as Professio [phone] [address] Office [facility] One 2020-09-23 2020-09-23 Telemedici [facility] 1.2.840.114 [id number] Univers 17:37:40 17:57:36 ne Visit Wondiful A Health 350.1.13.10 ity of [place] 4.2.7.2.686 Bhavik as Professio [phone] [address] One 2020-09-23 2020-09-23 Outpatient R YULIA [facility] [id number] Univers 16:30:00 16:30:00 WONDIFUL ity o f [facility] 2020-09-21 2020-09-21 Outpatient R IVY [facility] [id number] Univers 15:30:00 15:30:00 ARTEMIO ity of [facility] 2020-09-17 2020-09-17 Refarabella [facility]NOR[facility] 1.2.840.114 [id number] Univers 00:00:00 00:00:00 Wondiful A Health 350.1.13.10 ity of [place] 4.2.7.2.686 Bhavik as Professio [phone] [address] One 2020-09-17 2020-09-17 Billy [facility] 1.2.840.114 [id number] Univers 00:00:00 00:00:00 Wondiful A Health 350.1.13.10 ity of [place] 4.2.7.2.686 Bhavik as Professio [phone] Mo dical nal [address] Office Building One 2020-09-17 2020-09-17 Refill [facility] 1.2.840.114 [id number] Univers 00:00:00 00:00:00 Wondiful A Health 350.1.13.10 ity of [place] 4.2.7.2.686 Bhavik as Professio [phone] [facility] [address] Office Building One 2020-09-17 2020-09-17 Orders Doctor GOYO 1.2.840.114 [id number] Univers 00:00:00 00:00:00 Only Unassigned, MERLY 350.1.13.10 ity of [place] [facility] 4.2.7.2.686 Bhavik as [phone] [facility] [address] 2020-09-15 2020-09-15 [facility] 1.2.851.189 [id number] Univers 09:23:51 23:59:00 Encounter Wondiful A [place] 350.1.13.10 ity of [place] 4.2.7.2.686 [phone] [facility] [address] 2020-09-15 2020-09-15 [facility]patient [facility] [id number] Univers 09:24:32 09:22:00 WONDIFUL ity o f [facility] 2020-09-15 2020-09-15 [facility] 1.2.765.341 [id number] Univers 09:20:00 09:22:00 Encounter Wondiful A [place] 350.1.13.10 ity of [place] 4.2.7.2.686 [facility] [phone] [facility] [address] 2020-09-15 2020-09-15 [facility] 1.2.527.046 [id number] Univers 09:00:00 09:19:00 Encounter Wondiful A [place] 350.1.13.10 ity of [place] 4.2.7.2.686 [facility] [phone] [facility] [address] 2020-09-15 2020-09-15 [facility]patient [facility] [id number] Univers 00:00:00 00:00:00 WONDIFUL ity o f [facility] 2020-09-15 2020-09-15 Orders Doctor GOYO 1.2.840.114 [id number] Univers 00:00:00 00:00:00 Only Unassigned, MERLY 350.1.13.10 ity of [place] H[facility]PITAL 4.2.7.2.686 Bhavik as [phone] [address] 2020-09-08 2020-09-08 Outpatient [facility] [id number] Univers 00:00:00 00:00:00 WONDIFUL ity o f [facility] 2020-09-07 2020-09-07 Refill [facility] 1.2.840.114 [id number] Univers 00:00:00 00:00:00 Wondiful A [place] 350.1.13.10 ity of [place] 4.2.7.2.[place] Profess[place] [phone] [address] 2020-09-03 2020-09-03 [facility]patient [facility] [id number] Univers 00:00:00 00:00:00 WONDIFUL ity o f [facility] 2020-09-01 2020-09-01 Outpatient [facility] [id number] Univers 15:30:00 15:30:00 ARTEMIO fortune [facility] 2020-09-01 2020-09-01 Orders Doctor GOYO 1.2.840.114 [id number] Univers 00:00:00 00:00:00 Only Unassigned, MERLY 350.1.13.10 ity of [place] [facility] 4.2.7.2.686 Bhavik as [phone] [address] 2020-08-31 2020-08-31 Outpatient [facility] [id number] Univers 13:30:00 13:30:00 PADDY ity o f [facility] 2020-08-31 2020-08-31 Outpatient [facility] [id number] Univers 13:30:00 13:30:00 PADDY ity o f [facility] 2020-08-27 2020-08-27 Outpatient R CONRAD [facility] [id number] Univers 10:40:00 10:40:00 TOR fortune [facility] 2020-08-27 2020-08-27 Refill [facility] 1.2.840.114 [id number] Univers 00:00:00 00:00:00 Wondiful A Health 350.1.13.10 ity of [place] 4.2.7.2.686 Bhavik as Professio [phone] [facility] [address] Office Building One 2020-08-27 2020-08-27 Telephone [facility] 1..840.114 [id number] Univers 00:00:00 00:00:00 Wondiful A [place] 350.1.13.10 ity of [place] 4.2.7.2.[place] Profess[place] [phone] [facility] 231 [facility] 2020-08-24 2020-08-24 Outpatient [facility] [id number] Univers 10:30:00 10:30:00 MARIELA egan [facility] 2020-08-24 2020-08-24 Outpatient R VIRA [facility] [id number] Univers 10:30:00 10:30:00 MARIELA dennison [facility] 2020-08-19 2020-08-19 Outpatient [facility] [id number] Univers 00:00:00 00:00:00 WONDIRAEGAN egan [facility] 2020-08-19 2020-08-19 Orders Doctor NANCE 1.2.840.114 [id number] Univers 00:00:00 00:00:00 Only Unassigned, MERLY 350.1.13.10 [facility] 4.2.7.2.686 Bhavik as [phone] [address] 2020-08-17 2020-08-17 Outpatient [facility] [id number] Univers 15:30:00 15:30:00 ARTEMIO fortune [facility] 2020-08-17 2020-08-17 Orders Doctor NANCE 1.2.840.114 [id number] Univers 00:00:00 00:00:00 Only Unassigned, MERLY 350.1.13.10 ity of [place] [facility]ITAL 4.2.7.2.686 Bhavik as [phone] [address] 2020-08-11 2020-08-11 Orders Doctor GOYO 1.2.840.114 [id number] Univers 00:00:00 00:00:00 Only Unassigned, MERLY 350.1.13.10 ity of [place] [facility]OSPITAL 4.2.7.2.686 Bhavik as [phone] [address] 2020-08-05 2020-08-05 Outpatient R YULIA [facility] [id number] Univers 00:00:00 00:00:00 WONDIFUL ity o f [facility] 2020-08-03 2020-08-03 [facility] 1.2.840.114 [id number] Univers 00:00:00 00:00:00 Wondiful A Health 350.1.13.10 ity of [place] 4.2.7.2.686 Bhavik as Professio [phone] [address] Office Building One 2020-07-30 2020-07-30 Orders Doctor GOYO 1.2.840.114 [id number] Univers 00:00:00 00:00:00 Only Unassigned, MERLY 350.1.13.10 ity of [place] [facility]ITAL 4.2.7.2.686 Bhavik as [phone] [address] 2020-07-29 2020-07-29 Outpatient R YULIA [facility] [id number] Univers 00:00:00 00:00:00 WONDIFUL ity o f [facility] 2020-07-29 2020-07-29 Outpatient R YULIA [facility] [id number] Univers 00:00:00 00:00:00 WONDIFUL ity o f [facility] 2020-07-27 2020-07-27 Outpatient R IVY [facility] [id number] Univers 15:30:00 15:30:00 ARTEMIO itbrittny of [facility] 2020-07-23 2020-07-23 Outpatient R VIRA [facility] [id number] Univers 11:00:00 11:00:00 MARIELA ity o f [facility] 2020-07-21 2020-07-21 Outpatient R YULIA [facility] [id number] Univers 00:00:00 00:00:00 WONDIFUL ity o f [facility] 2020-07-20 2020-07-20 Telephone [facility] 1.2.840.114 [id number] Univers 00:00:00 00:00:00 Wondiful A Health 350.1.13.10 ity of [place] 4.2.7.2.686 Bhavik as Professio [phone] [address] One 2020-07-14 2020-07-14 Telephone [facility] 1..840.114 [id number] Univers 00:00:00 00:00:00 Wondiful A Health 350.1.13.10 ity of [place] 4.2.7.2.686 Bhavik as Professio [phone] [address] 2020-07-12 2020-07-12 Telemedici [facility] 1..840.114 [id number] Univers 16:23:54 18:04:20 ne Visit Wondiful A Health 350.1.13.10 ity of [place] 4.2.7.2.686 Bhavik as Professio [phone] [address] One 2020-07-12 2020-07-12 Outpatient R YULIA [facility] [id number] Univers 16:00:00 16:00:00 WONDIFUL ity o f [facility] 2020-07-12 2020-07-12 Orders Doctor GOYO 1..840.114 [id number] Univers 00:00:00 00:00:00 Only Unassigned, MERLY 350.1.13.10 ity of [place] [facility] 4.2.7.2.686 Bhavik as [phone] [address] 2020-07-12 2020-07-12 [facility] 1..840.114 [id number] Univers 00:00:00 00:00:00 Wondiful A Health 350.1.13.10 ity of [place] 4.2.7.2.686 Bhavik as Professio [phone] [address] [facility] 2020-07-12 2020-07-12 IRON [place] 1.2.840.114 [id number] Univers 00:00:00 00:00:00 Management Wondiful A Health 350.1.13.10 [facility]y of [place] 4.2.7.2.686 Bhavik as Professio [phone] [address] [facility] 2020-07-05 2020-07-05 Orders Doctor GOYO 1.2.840.114 [id number] Univers 00:00:00 00:00:00 Only Unassigned, MERLY 350.1.13.10 ity of [place] [facility] 4.2.7.2.686 Bhavik as [phone] [address] 2020-07-02 2020-07-02 IRON Roblero 1.2.840.114 [id number] Univers 00:00:00 00:00:00 Wondiful A Health 350.1.13.10 ity of [place] 4.2.7.2.686 Bhavik as Professio [phone] [address] [facility] 2020-06-30 2020-06-30 Telephone IRON Bender 1.2.840.114 [id number] Univers 00:00:00 00:00:00 Wondiful A Health 350.1.13.10 ity of [place] 4.2.7.2.686 Bhavik as Professio [phone] [address] [facility] 2020-06-30 2020-06-30 IRON [place] 1.2.840.114 [id number] Univers 00:00:00 00:00:00 Management Wondiful A Health 350.1.13.10 ity of [place] 4.2.7.2.686 Bhavik as Professio [phone] [address] [facility] 2020-06-28 2020-06-28 Telephone IRON Bender 1.2.840.114 [id number] Univers 00:00:00 00:00:00 Wondiful A Health 350.1.13.10 ity of [place] 4.2.7.2.686 Bhavik as Professio [phone] [address] [facility] 2020-06-25 2020-06-25 Orders GOYO Bender 1.2.840.114 [id number] Univers 00:00:00 00:00:00 Only Wondiful A MERLY 350.1.13.10 ity of [facility]OS[facility] 4.2.7.2.686 Bhavik as [phone] [facility] [address] [place] 2020-06-23 2020-06-23 Telephone [place] [facility] 1.2.840.114 [id number] Univers 00:00:00 00:00:00 Wondiful A Health 350.1.13.10 ity of [place] 4.2.7.2.686 Bhavik as Professio [phone] [address] Office [facility] 2020-06-23 2020-06-23 Telephone [facility] 1.2.840.114 [id number] Univers 00:00:00 00:00:00 Wondiful A Health 350.1.13.10 ity of [place] 4.2.7.2.686 Bhavik as Professio [phone] [address] Office [facility] 2020-06-18 2020-06-18 Orders Doctor NANCE 1.2.840.114 [id number] Univers 00:00:00 00:00:00 Only Unassigned, MERLY 350.1.13.10 ity of [place] [facility] 4.2.7.2.686 Bhavik as [phone] [facility] 009 [place] 2020-06-15 2020-06-15 Office Yulia [facility] 1.2.840.114 [id number] Univers 12:59:37 14:06:48 Visit Wondiful A Health 350.1.13.10 ity of [place] 4.2.7.2.686 Bhavik as Professio [phone] [address] Office Building One 2020-06-15 2020-06-15 Outpatient R YULIA [facility] [id number] Univers 13:00:00 13:00:00 WONDIFUL ity o f [facility] 2020-06-15 2020-06-15 Patient Tyree [facility] 1.2.840.114 [id number] Univers 00:00:00 00:00:00 Outreach Elicia [facility] 350.1.13.10 i ty of [place] 4.2.7.2.686 Bhavik as Professio [phone] [address] Office Building One 2020-06-14 2020-06-14 Outpatient R YULIA [facility] [id number] Univers 15:00:00 15:00:00 WONDIFUL ity o f [facility] 2020-06-03 2020-06-03 Telephone [facility] 1.2.840.114 [id number] 00:00:00 00:00:00 Wondiful A Health 350.1.13.10 [place] 4.2.7.2.686 Professio [phone] [place] [address] Office [facility] 2020-06-03 2020-06-03 Telephone [facility] 1.2.840.114 [id number] Univers 00:00:00 00:00:00 Wondiful A Health 350.1.13.10 ity of [place] 4.2.7.2.686 Bhavik as Professio [phone] [address] Office Building One 2020-06-01 2020-06-01 Orders Doctor GOYO 1.2.840.114 [id number] Univers 00:00:00 00:00:00 Only Unassigned, MERLY 350.1.13.10 ity of [place] [facility] 4.2.7.2.686 Bhavik as [phone] [address] 2020-05-27 2020-05-27 Telephone [facility] 1.2.840.114 [id number] 00:00:00 00:00:00 Wondiful A Health 350.1.13.10 [place] 4.2.7.2.686 Professio [phone] [place] [address] Office Building One 2020-05-27 2020-05-27 Telephone Yulia WYANNALISE 1.2.840.114 [id number] [facility] 00:00:00 00:00:00 Wondiful A Health 350.1.13.10 ity of [place] 4.2.7.2.686 Bhavik as Professio [phone] [address] Office [facility] 2020-05-21 2020-05-21 Telephone Yulia WYANNALISE 1.2.840.114 [id number] 00:00:00 00:00:00 Wondiful A Health 350.1.13.10 [place] 4.2.7.2.686 Professio [phone] [place] [address] Office [facility] 2020-05-21 2020-05-21 Telephone Yulia WYANNALISE 1.2.840.114 [id number] [facility] 00:00:00 00:00:00 Wondiful A Health 350.1.13.10 ity of [place] 4.2.7.2.686 Bhavik as Professio [phone] [address] Office [facility] 2020-05-12 2020-05-12 Orders Doctor GOYO 1.2.840.114 [id number] 00:00:00 00:00:00 Only Unassigned, MERLY 350.1.13.10 [place] [facility] 4.2.7.2.686 [phone] 009 2020-05-12 2020-05-12 Orders Doctor GOYO 1.2.840.114 [id number] [facility] 00:00:00 00:00:00 Only Unassigned, MERLY 350.1.13.10 ity of [place] [facility] 4.2.7.2.686 Bhavik as [phone] [address] 2020-05-11 2020-05-11 Outpatient R YULIA WYANNALISE [facility] [id number] Univers 11:30:00 11:30:00 WONDIFUL ity o f [facility] 2020-05-07 2020-05-07 Telephone Greg WYANNALISE 1.2.840.114 [id number] 00:00:00 00:00:00 Dong SPECIALTY 350.1.13.10 CARE 4.2.7.2.686 CENTER AT [phone] ANGELO [address] [place] [address] 2020-05-07 2020-05-07 Telephone [facility] 1.2.840.114 [id number] Univers 00:00:00 00:00:00 Dong SPECIALTY 350.1.13.10 ity [place] AT [phone] Mo shanaesc AUG[address] 2020-05-05 2020-05-05 Billy [facility] 1.2.840.114 [id number] Univers 00:00:00 00:00:00 Wondiful A [facility] 350.1.13.10 ity of [place] 4.2.7.2.686 Bhavik as Professio [phone] [address] Office [facility] 2020-04-27 2020-04-27 Hospital [facility] 1.2.840.114 [id number] Univers 08:00:00 14:40:00 Encounter Dong ICAL 350.1.13.10 ity of SCIENCES 4.2.7.2.686 Bhavik as BLDG [phone] [facility] 020 [place] 2020-04-27 2020-04-27 Orders Doctor GOYO 1.2.840.114 [id number] Univers 00:00:00 00:00:00 Only Unassigned, MERLY 350.1.13.10 ity of [place] [facility] 4.2.7.2.686 Bhavik as [phone] [facility] 009 [place] 2020-04-12 2020-04-12 Refarabella [facility] 1.2.840.114 [id number] Univers 00:00:00 00:00:00 W[facility] A [facility] 350.1.13.10 ity of [place] 4.2.7.2.686 Bhavik as Professio [phone] [address] 2020-04-09 2020-04-09 Billy [facility] 1.2.840.114 [id number] Univers 00:00:00 00:00:00 Wondiful A [facility] 350.1.13.10 ity of [place] 4.2.7.2.686 Bhavik as Professio [phone] [address] One 2020-03-30 2020-03-30 Appointmen JUANITA PALACIOS UTP [id number] [place] 14:00:00 14:00:00 t; PHILIP, DEVICE Phys ici DEVICE ans 2020-03-29 2020-03-29 Orders Doctor GOYO 1.2.840.114 [id number] Univers 00:00:00 00:00:00 Only Unassigned, MERLY 350.1.13.10 ity of [place] [facility] 4.2.7.2.686 Bhavik as [phone] [address] 2020-03-20 2020-03-20 Refarabella [facility]enderNOR[facility] 1.2.840.114 [id number] Univers 00:00:00 00:00:00 Wondiful A Health 350.1.13.10 ity of [place] 4.2.7.2.686 Bhavik as Professio [phone] [address] 2020-03-15 2020-03-15 Orders Doctor GOYO 1.2.840.114 [id number] Univers 00:00:00 00:00:00 Only Unassigned, MERLY 350.1.13.10 it[facility] [place] [facility] 4.2.7.2.686 Bhavik as [phone] [address] 2020-03-12 2020-03-12 Music Publisher [facility]ERSIT 1.2.840.114 [id number] Univers 12:05:01 12:20:01 Visit Paddy Ayon E Y HEALTH 350.1.13.10 ity of CL[place] [phone] [facility] 316 [place] 2020-03-12 2020-03-12 Office LYNETTE Ayon 1.2.636.379 [id number] Univers 11:07:00 12:01:04 Visit Paddy E Y HEALTH 350.1.13.10 ity of [place] [phone] [facility] 071 [place] 2020-03-12 2020-03-12 Outpatient R NANY [facility] [id number] Univers 11:00:00 11:00:00 PADDY egan f [facility] 2020-03-12 2020-03-12 Orders Doctor GOYO 1.2.840.114 [id number] Univers 00:00:00 00:00:00 Only Unassigned, MERLY 350.1.13.10 ity of [place] [facility] 4.2.7.2.686 Bhavik as [phone] [address] 2020-02-27 2020-02-27 [facility] [id number] Univers 13:30:00 13:30:00 PADDY dennison [facility] 2020-02-26 2020-02-26 Orders Doctor GOYO 1.2.840.114 [id number] Univers 00:00:00 00:00:00 Only Unassigned, MERLY 350.1.13.10 ity of [place] [facility] 4.2.7.2.686 Bhavik as [phone] [address] 2020-02-20 2020-02-20 Telephone [facility] 1.2.840.114 [id number] Univers 00:00:00 00:00:00 Wondiful A Health 350.1.13.10 ity of [place] 4.2.7.2.686 Bhavik as Professio [phone] [address] Office Building One 2020-02-20 2020-02-20 Orders Doctor GOYO 1.2.840.114 [id number] Univers 00:00:00 00:00:00 Only Unassigned, MERLY 350.1.13.10 ity of [place] [facility] 4.2.7.2.686 Bhavik as [phone] [address] 2020-02-18 2020-02-18 Refill [facility] 1.2.840.114 [id number] Univers 00:00:00 00:00:00 Wondiful A Health 350.1.13.10 ity of [place] 4.2.7.2.686 Bhavik as Professio [phone] [address] Office Building One 2020-02-17 2020-02-17 Appointmen HEMATPOLETA, [facility] UTP [id number] 0771 [place] 10:15:00 10:15:00 t; KHASHAYAR Phys ici HEMATPOUR, ans KHASHAYAR 2020-02-12 2020-02-12 Orders Doctor GOYO 1.2.840.114 [id number] Univers 00:00:00 00:00:00 Only Unassigned, MERLY 350.1.13.10 ity of [place] [facility] 4.2.7.2.686 Bhavik as [phone] [address] 2020-02-10 2020-02-11 Office [facility] 1.2.840.114 [id number] Univers 10:31:35 14:01:09 Visit Monty [facility] 350.1.13.10 ity of [place] 4.2.7.2.686 Bhavik as Professio [phone] [address] Office Building One 2020-02-10 2020-02-10 Music Publisher Lab, Adc Fam Pob I [facility] 1.2. 840.114 [id number] Univers 11:26:55 11:46:55 Visit Yulia Monty [facility] 350.1.13.1 0 ity of [place] 4.2.7.2.686 Bhavik as Professio [phone] [address] Office Building One 2020-02-10 2020-02-10 [facility] [id number] Univers 10:30:00 10:30:00 WONDIFUL ity o f [facility] 2020-02-09 2020-02-09 Appointmen JUANITA ROGERS [facility] 6962 9785 [place] 14:30:00 14:30:00 t; AALIYAH ROGERS, Advanced Ph dave FISCHER M.D. Heart [facility] 2020-02-09 2020-02-09 Orders Doctor NANCE 1.2.840.114 [id number] Univers 00:00:00 00:00:00 Only Unassigned, MERLY 350.1.13.10 it[facility] [place] [facility] 4.2.7.2.686 Bhavik as [phone] [address] 2020-02-03 2020-02-03 Orders Doctor NANCE 1.2.840.114 [id number] Univers 00:00:00 00:00:00 Only Unassigned, MERLY 350.1.13.10 it[facility] of [place] [facility] 4.2.7.2.686 Bhavik as [phone] [address] 2020-01-02 2020-01-20 Inpatient BHASKAR, [facility] CAR 7504 [facility] 11:39:00 06:30:00 JOSE 2020-01-20 2020-01-20 Telephone [facility] 1.2.840.114 [id number] Univers 00:00:00 00:00:00 Wondiful A Health 350.1.13.10 ity of [place] 4.2.7.2.686 Bhavik as Professio [phone] Mo dical nal 0[address] [place] Office [facility] 2020-01-16 2020-01-16 Appointmen JUANITA ROGERS [id number] [place] 14:45:00 14:45:00 t; AALIYAH ROGERS Phy sici BENNET, M.D. ans M.D. 2020-01-15 2020-01-15 [facility] [id number] Univers 16:15:00 16:15:00 WONDIFUL ity o f [facility] 2020-01-15 2020-01-15 Orders Doctor GOYO 1.2.840.114 [id number] Univers 00:00:00 00:00:00 Only Unassigned, MERLY 350.1.13.10 ity of [place] [facility] 4.2.7.2.686 Bhavik as [phone] [address] 2020-01-06 2020-01-06 Telephone [facility] 1.2.840.114 [id number] Univers 00:00:00 00:00:00 Wondiful A [place] 350.1.13.10 ity of [place] Profess[place] [phone] [facility] 225 [facility] 2019-12-31 2019-12-31 Refill [facility] 1.2.840.114 [id number] Univers 00:00:00 00:00:00 Wondiful A Health 350.1.13.10 ity of [place] 4.2.7.2.686 Bhaivk as Professio [phone] Mo dical nal 044 [facility] 2019-12-19 2019-12-19 Appointmen SE, VENOUS [facility] UTP [id number] [id number] [place] 09:30:00 09:30:00 t; SE, Physic i VENOUS ans 2019-12-19 2019-12-19 Telephone IRON Bender 1.2.840.114 [id number] Univers 00:00:00 00:00:00 Wondiful A Health 350.1.13.10 ity of [place] 4.2.7.2.686 Bhavik as Professio [phone] [address] 2019-12-12 2019-12-12 Orders GOYO Bender 1.2.840.114 [id number] Univers 00:00:00 00:00:00 Only Wondiful A MERLY 350.1.13.10 ity of HOSPITAL 4.2.7.2.686 Bhavik as [phone] [address] 2019-12-10 2019-12-10 Appointmen JUANITA VAUGHN [facility] [id number] [place] 11:00:00 11:00:00 t; SUSHANT VAUGHN M.D. cic & P ki CANCHOLA M.D. Vascular ans Surgery - [facility] 2019-12-03 2019-12-03 Telephone [facility] 1..840.114 [id number] [facility] 00:00:00 00:00:00 Wondiful A Health 350.1.13.10 ity of [place] 4.2.7.2.686 Bhavik as Professio [phone] [address] 2019-12-02 2019-12-02 Appointmen HEMATPOUR, [facility] UTP 6835 6921 [place] 11:00:00 11:00:00 t; KHASHAYAR Phys ici HEMATPOUR, ans KHASHAYAR 2019-12-01 2019-12-01 Orders Doctor NANCE 1..840.114 [id number] Univers 00:00:00 00:00:00 Only Unassigned, MERLY 350.1.13.10 ity [facility] [place] [facility] 4.2.7.2.686 Bhavik as [phone] [address] 2019-11-24 2019-11-24 Telephone [facility] 1.2.840.114 [id number] Univers 00:00:00 00:00:00 Wondiful A [place] 350.1.13.10 ity of [place].2.[place] Profess[place] [phone] Mo dicsc nal 044 [facility] 2019-11-12 2019-11-12 Appointmen JUANITA VAUGHN [facility] [id number] [place] 10:00:00 10:00:00 t; SUSHANT VAUGHN M.D. P ki CANCHOLA M.D. ans 2019-11-10 2019-11-10 Office [facility] 1.2.840.114 [id number] Univers 11:03:26 12:13:55 Visit Wondiful A [place] 350.1.13.10 ity of [place]2.7.2.[place] Profess[place] [phone] [address] 2019-11-10 2019-11-10 Outpatient [facility] [id number] Univers 11:15:00 11:15:00 WONDIFUL ity o f [facility] 2019-10-23 2019-10-23 Appointmen KEN [facility] [id number] [place] 15:45:00 15:45:00 t; AALIYAH ROGERS, Advanced Ph dave FISCHER M.D. [facility] syl [facility] 2019-10-21 2019-10-21 Outpatient [facility] [id number] Univers 14:30:00 14:30:00 WONDIFUL ity o f [facility] 2019-10-10 2019-10-10 Outpatient Janessa [facility] [id number] Univers 10:30:00 10:30:00 WONDIFUL ity o f [facility] 2019-09-25 2019-09-25 Outpatient AMBREEN_FAR MEHOP MEHOP [id number] [place] 02:19:00 02:19:00 HANA [id number] [facility] 2019-08-28 2019-08-28 Outpatient AMBREEN_FAR MEHOP MEHOP 106 [id number] [place] 12:27:00 12:27:00 HANA [id number] [facility] 2019-08-11 2019-08-11 Outpatient R YULIA, [facility] [id number] Univers 15:15:00 15:15:00 WONDIFUL ity o f [facility] 2019-08-11 2019-08-11 Telemedici Yulia, [facility] 1.2.840.114 [id number] Univers 07:32:31 08:02:31 ne Visit Wondiful Saqib Dos Santos 350.1.13.10 [place] judith Wilsonio [phone] Mo dical [address] 2019-07-07 2019-07-07 Appointmen [facility] [id number] [place] 10:00:00 10:00:00 t; JOSY MANZANARES M.D. Physicsyl Glover M.D. 2019-06-26 2019-06-26 Appointmen JUANITA ROGERS [facility] [id number] 4160 [place] 11:00:00 11:00:00 t; AALIYAH ROGERS Advanced Ph dave FISCHER M.D. Heart ans MSergo [facility] 2019-06-12 2019-06-12 Appointmen KEN [facility] [id number] [place] 10:45:00 10:45:00 t; AALIYAH ROGERS Phy sici BENNET, M.D. ans MSergo 2019-06-10 2019-06-10 Appointmen HEMATPOUR, [facility] UTP [id number] [place] 10:30:00 10:30:00 t; LANDRY Phys ici HEMATPOUR, ans KHASHAYAJanessa 2019-06-03 2019-06-03 Appointmen SE, ECHO UTP UTP [id number] [place] 10:15:00 10:15:00 t; SE, Physic i ECHO ans 2019-06-03 2019-06-03 Appointmen SE, NUCLEAR UTP UTP [id number] [place] 08:45:00 08:45:00 t; SE, Physic i NUCLEAR ans 2019-05-27 2019-05-27 Appointmen KEN [facility] 6314 4225 [place] 10:45:00 10:45:00 t; AALIYAH ROGERS Advanced Ph dave FISCHER M.D. Heart ans MSergo [facility] 2019-05-27 2019-05-27 Appointmen HEMATPOLETA, JUANITA UTP [id number] [place] 10:15:00 10:15:00 t; syl Bennett 2019-05-07 2019-05-07 Ancillary Therapist, Adc Occup [facility] 1.2 .840.114 [id number] Univers 11:18:16 13:29:56 Visit Sergio Boone Jacqueline 350.1.13.[address] [facility] [place].2.7.2.[place] Profess[place] [phone] [facility] 178 [facility] 2019-05-07 2019-05-07 Outpatient R PAOLO [facility] [id number] Univers 11:00:00 13:29:56 SERGIO fortune [facility] 2019-04-27 2019-04-27 Orders Doctor GOYO 1.2.840.114 [id number] Univers 00:00:00 00:00:00 Only Unassigned, MERLY 350.1.13.10 ity of [place] [facility] 4.2.7.2.686 Bhavik as [phone] [address] 2019-04-02 2019-04-02 Outpatient R PAOLO [facility] [id number] Univers 10:00:00 10:00:00 SERGIO fortune [facility] 2019-04-02 2019-04-02 Case Samantha [facility] 1.2.840.114 [id number] Univers 00:00:00 00:00:00 Management Tamanna walker 350.1.13.[address] [facility] [place].2.[place].2.[place] [phone] [facility] 178 [facility] 2017-06-27 2017-06-27 Appointmen JUANITA BECK UTP [id number] [place] 10:45:00 10:45:00 t; SALLIE BECK, Alexei Olguin M.D. Results Test Description Test Time Test Comments Results Result Comments Source Tissue Exam 2022-08-29 15:37:15 Test Item Value Reference Range Interpretation Comme nts Case Report (test code = 104) Surgical Pathology Report Case: [id number] Authorizing Provider: Waleska Burns MD Collected: 08/24/2022 09:30 AM Ordering Location: [address] Received: 08/24/2022 02:23 PM Pathologist: Tereso Wiggins MD Specimens: A) - Large Intestine, Colon - Right/Ascending, random biopsies R/O colitis B) - Large Intestine, Colon - Left/Descending, random biopsies R/O colitis ADDENDUM (test code = 3381) e2jujPWiLXSgpYEuTKNlCWlfkeWuMBOfwCGyQ6C hcl fpBHnbSS5gZB8qpFkqsDUehZTxCRRmNrJoz1yhn184 pSVle3jsBMMAVZglDACOJQc7y7grPYNFzrrteBc2rZ dnH71el3Z2LpyeT04ptHFcXHN2ZJJvNUAyrONkFUAt DIB9QIYrwNUvW1qsGAXgXL1yeekxIIheSOkaEULfuM T6KRRlcINzW4OqQJGcDKimANIzhuf2ZrFqDw9lqHTz iTjjRYkzUIJcULPaKApyDIAuGADvRxVsAU2mvA1baH 2rz5BfnE4fZg4wHGYVCaGiqjTFXFcNHYePDE4egEUb fQ== DIAGNOSIS (test code = 3220) k2jrhZVfFYEoi2myJTMhfJKrTyNwLfYwTyJqVa pcdW NrAIcxpeBgLGhbyKrgDJGeXRNgCF6cdMjzrSh4aMml MZSjkcV0lGUyDLdzx1jkEYV3a1rjmpqzWJNeRYaxLi 9hyCKmzZnfXlShSKYqIOj9sV12PFElsE5osRPwHFs9 VHSorEYzbvFcQwSvYEFyxADjkNI1UFRnKA2elmbqGC zkLUtxDSMmelA0NEPuyXBfV4BwFSEgEX4caeocXMG2 CTxiZVUoADT0AlAmJVEqk7Xfnjz7DvNqzPKcVXzfaS XujceevyXfBXZwVRWMY6nLS0RRM5QAIJrIDiWLJ8rS OnqoRzARAE4RPCYPVY0AG1yNS0dmAWJsGH1rR90RI0 3MGjGUEYYWY5EhP2bFHKFBXGWNUNuqVn5VASGYFWNB HqaEQSKUPBKZFMrHTilABR7RFShDFzFYKlSuRk0DVB euV8ZCRGOjSJQKVLDDH6qZDqelUXUcFM6wQcDRKTJS YtRhWb3NMILMDu6XYJDdQY1LVGLGBBTHMSPNKVJFLB VHTKErWRBvfqRaBQTQBYgDVOsIRFPDC5QnYIhQWRkJ M4mKBGVnYH1IFYYVDUtJK6LKE4ELENDOVCiZZYIkSC VyiqqaBRHtJb4xVMiOVmMgREQGL5BGZEeRBzTOH5aS UngdVzRSXE9OWSUTVV3NS4oPP2aeZUUbJB0uY68TX2 1ZAkYKRCHVK7FmK0aMMZDRKgVNJSaMQCJXA8PKYCQX RYJFO9cRF6iqTLWxioTcNLLMIFgPHMnSDVCQX2CyUB RAZPFRYTlZEybCOH5YNEcSDlcfH5iVK42LNhIEYffC UlksIEFORCBEWVNQTEFTSUEuXHBhciAgLSBORUdBVE uLETDDG1UnKMlYEXeYV0kTVUJeGE0MGFZXEZsGJ3YU I5VYJAABGQlEGLJrOICycapjMLU4v8jatUWjFCAjqM ReOCHmKAbnjcLoUWZyXqizdpafLRMpZQA8luKjRCKo HOxkBGOwORntKh3tfQQtbLzoOnGrONUyq8cynuSZsc zeiHs7v0boPHYmZcQ4gJGmFRlfR1kaooBekZKkFKXy BFy9qJ82BWJdcR9weOBtHAennvDgVbV1QKyjOLBaEu Y9KTRmvWZpTBKkN5zsWVTxWFfiYTFmSFkjmHKwHFZ4 iGdvh3N8oPSxoRCtgOltIwViAiFiVkNQp4KqKGm6hH voL9KkJXQqBkW8hFHjRLMxJPbuJMQuWVArxeL8gD07 TTphicA3jNBdn8Nlo18cg121hZ9mtYBdBSQ7IHOwMU GtaSHuLOUlIDQ2UDOvnFRvG7ddHHChZT3eodjvRNsb AHowTMRvkDY7OPLwsDXoJ2ZiVURrGKxbAFQljrz2Fr VpMj8ffGUclHquHVwje3rwt5fneEPmZgu3WUQaVzHy OwzhIGvys1Vkf6veCQNoup0xSIN2kQZelSejy9O1rP QhZSRuvOArFIHtFI8ncFDdXUClcJ0mnsqgAODfTkHs lgwrPFOekGsdlkIyFd9ugSxgJKB1GCcxF8xqdP6dFz T4NBxnL4knuY4nCEw3CRduXDArgOR7emG8AUEjhWQx I3GqsX5mSNRnNQ4rumr8b6qnFNW2AMmjJZQuSsA2sv N5ZVJbrYVrNOFcoBwjMCfxm810PGH7RiLrLXXqt6Ox E5IliKpnY58acKoaK15eYTArwXenwN6qpBuuzE3mDx JiIdEuTYyugLlaIJ7qAEHoT3rqfXGmVJLlKKZgV4lj RvQguA6wfTqkEWpcxiNmONUmFte2FSQndKMpAJFeGg b4GPIwZSHxZ22ldddfWLH5fN4go9ehn0UrSLxrHEB3 ORCsc43sFJinxhA4QFseGm32AGkhLXT5COdlFLI5gJ == COMMENT (test code = 3359) g9wqaGFcMKBsdRMxPWWyUWxaseUeUANypBMtN8He cl qxJYqcUZ9dQR6ctUehtJOqmEClHJHcXzNko9ina268 yXVvi6biXPKAvqwbkWg8vBmcW18ff2X6QeyaG77wvV ViQHQ8PYIhKLHpcPTtLLHnYRD9XGAkdXMnE4wdIVYl JO4rgkykFZheBHtqITTbnAL2FAVfyYNdC4VxTHTwTS qgZHPfvnc1LrMrZs2sxVNiqXkjXTofXHOxZIXrJHjc QGCxWtOgGe3gDSRpniYyTMtpRM0wwY0uuB8kd3VhaH 7oSd6zSEPKIvG0gWqgSZDcHTXspZ9afRWeYEvlZJWj ZVSfTUTmTIDsHxGeYCFoTVVtanHbV63yR7RgsuI6gX EjVQYgYKOnBk04BJQvlSUvhu1saZSbKFYmvf5= CPT Code(s) (test code = 335) h5updUQxMZNjuGReECSqXQpzwuIsTMNceIWv Z3Bhcl rgWLdsXO4vKQ2adMljiTCdgYDfHYCuHvUlh8kmo055 tVGsk2nzGSEQjdgjkVv0xGxzM16qt2E0AinlJ69gpB CeUPK4ZCMkLYUteAShRFLqVIT7ASYmwVViO4bcRNIz LR5ndnkiHZigKKevPMWioAV0JULavKQiW1YyHIOdIM phTRMgxld5HkOyCb6tsHRnvJreLKjkPLVqPWBfWYrs LHNpIbUqPYbeZVFsbICzSIP2MEQ6MtxrAKI8 CLINICAL HISTORY (test code = 3356) m8scuOMxHJXvnVPjTNZbTWrjpoMm HHPvmNLcF4Vswa weWYpnGG7uLC7fpFoooFGpfZHgSWJhGzCfu3fdh993 gSAkm2daARNHrkmqgKe2tHytE72dl8N0SojdI10emV YlHEM2OUQmKKGgdHUwOYVuAVU4RUTcvIUvA8dwSOHx MW6wgqmzIJqoJNowTCMbgLM6FKDmtDGxB6CgBRVxOC odGOZwdvx8OgUmYc2gfRUqkKpwQXbiUTTlSIUmERmb GPEpFmAjEWCrieCkNYNfH3arceC0WTHiWG2eLM5wlP FyfQ== GROSS DESCRIPTION (test code = s8zzdTKyKGSwiSKQBOXgFFPlXD6jsTlhqIo5 cGdwYX [id number]) WoifR3zSIoFTsbz2cqAVM0y0bbftBCIejgQVLiKU7q EHycLKYeSP3oUhUyLUQfXxXuSQXxmDTmgxRtZzCfSH WqmKNwqTC4PNPiVX2jisuoWZuiPChmMSKrnqB5ETLi pJTiE3AnFOEwGU4dymruIEA3DXJWOojuYy1wkRRmdZ pnUbBeJuJdWROiHOWjAGDywXwmJHQmPXq0oW6RNwfj Q15cx9D1Ypj5DLXxEXDyI2TgUT9iMJNhcZPpZ34WTb ofIMF8FDJWYupsFymhlEsrv3DlkVLxAPOeMFnaxJBo BCGhTGZrORiaQiXIFiDcPnQ5NyG9EBa6GgM7BWd4SI LHKZWrSXN9LMYjFDS5LYr5DEInWF1gYLuqhYOeZSds NitzKOnkT059VDgrHCGbG1PbZ5XgCKlrJeLoHOdeEY ZsEEGsQAnhMNByT3CDLBOtBZY2GLI7HKEkOGx1ZOuz F5BIBSEzKOO8QAqrGhu9VuW9FHk5GWVIIk0kJkU2Kg Y7WDAdJXX1GPMbALhmcCGvSLkfz7WxVzBhAATgLEob ctC6PXTgkkAyPFypwFfbuP7dYcXbSdCDQgTALRMtHH JKufErz8GhhcKyAYLiyS6wMF1iAhzstFJjXBLzTK9c dE8aVUJsbrOREambIVLzFZ9EDTVfORmaHDTaTzKxpJ TeR6quYETyD48tn0VWh2UrDQ7MOUk6pmSnekhzrH6d ETBaetBoHSldN7EwKSBtDaKdUrYtRGc0BIDypL7qMf 4hpXFdmP6syDVuVJzaKQE5rVIzYZHlXTRePBLdBZ14 XCdCNHMgbmFtZSwgbWVkaWNhbCByZWNvcmQgbnVtYm [file] ZzgyFXBsecXWGeBX0PeO== MICROSCOPIC DESCRIPTION (test code = c3efmXInYEOdjCBgNPBtZFi vckGqJEHdvWFoH0Okdh 3371) zlVKksBU0qOI9ehQcdoWClbQOmEZDjToWoh7vlx643 bUJzd6naRAZAcgnliNl3tIkaV71dp4O3VqbtW02tpB YhZTV0VRVlLHOwfHYkUGBxFZD1XMCwyQHjY3kaFUZm YJ9yewghEDejGUzjXQAufCU7CBZadVOoR9FfTWSuBC sfSPLenkj0PxMsVu2gxGYaiPyiIOxdFWTdAIFvTOsb MDHhYlCnAEJuEx5qtHCyMwQlDUVqxm8= SPECIAL STUDIES (test code = 3376) r2gmkILpXNZyf1ccMCPbfOZbTyRxNiCn ZnRuYmpcdW YgSOilkaQfDFxlg2QtC2GwNqSdDXyfneVqZOFzOdqh ttokEZRxBYZ9inBsUREpPHhfDKGlFRpmPf9yfRIibJ fxOmGqHNCgz3ployWWeencvAt8s3ayOXUoAwP0hZZl VNeuX1xgciNqtMSuZ7XvgQTcwFz4d4gmCzWfZrD2vJ QrPHxcT1epiuDmuKLzGDEiUCu9rT79RYDamR5dbDWq WQxpmpKmGyM0PPmiPCWcIeA8JMCsiVJhOOWvC1xuKD QgHAwoYIHaBPrwlEFrAMU2eCoys6J7hYZtqTMztPek AmXjFiFcJqQBh5LgOPe3rGyfV6UvNHXxJnT4qRHyDY DsANkvOKQqKYSzwwA1kNdsemXnr96aqQFpEVOaVMCo UqXhwPluPSGaTKMCy7LztKuqLAO8tSs2vIpoExlxXG M1Xqr8EJ8dqb47gsb6uYkaCZHfratqSeA9OEquBMSs zsbsUBa5FIbqYCWneAO2NJAufHJgF7TcUZZwVT4ofa b5KHD7BPrlQJLwOpR8AORwjMRgGXLtcYyvAWaxd305 PTM0CjMwQM7hC5Qtb5W9yI5rjGZgCMXsuAZaWoQrSD Cwcy0bbREpISmpn2UeUWA6biK4jLXpaQGqQIKqMS77 Dtsoc8LoEmcir0KnR77piYE0MRxqy8rgCO9aRlB2ab GhLTpuf2rriN6lHsO5WFpyOY6bRX5lPLXryW4hknry DDBuNbXaojlwLRDtlIkdrtQwPv5lwOjoBXZ4YSyoV4 crhZ2yIuJ1DBpdV8jqqW5jIIy8QHaeiAH3WLCdzS6u NQ5xeijsn3ekIWvjNUwnUCMrzdN5vvQ1ZHEqhPWiY6 ZqgX7jRXZcWI4comhny9bbAVH6ASniEPExJEO2NnJh MOVxo8Oacux2AsJmg3DocIKtMYyvQ25fp724ZDRtfq LcE1brdSOuckltpIVsazabYCqgpqJ9JQXuOFLnSRke XGYxXGZzMjJcbGFuZzEwMzNcaGljaFxmMVxkYmNoXG NrTTyjZ0fdBjXgU2YoUXXgHaDfNLgbMDxkiFFwfIWt cSU3dF9nPD7eGCXkkTHuA4ViHHBodwHzsYFxCZQ3cW VgoCPlZT6sMVshjRYbi8bzv5YqR5wrzCgogVN4DN4e LZFxYGHsBWgvt2VioU2bNjisbXGhwuzbEQweshCsSN nxmdkkGGHvWZbrM8jtOcXqWCRspZqlCRpqp1BwTKWc CSXrBfrjydEcLCl2qhAwZLYshhgyHVSerTrlaI8bZi HiJaArPnvlPJ6tBVDdX3abpLOsFSLqPPTzE6ilLbEz nB7bgGijZXadKyQnYsQiJlKSb230dd9bISJtoRMkio RRmYAkgU1pKEtnTIylDAbbwHXsPDliw9fuMPBed1z8 aAZvFLFdvyHea8hsXRmwxwWuKXIjgSKteZCdFDJzx6 6fTIhowSrkbUobEMDek7UowDjfn0ZuEvAhVByrs8Va H72ksYFrcGMtpLmlIOWcufKmQCRwg72pu1edFZNuHj B5cWRnlUJ2jJFqyEYhq8KyhNrjNTBaa7qoUJXvxl2v pucwjHYdu9WjbQ7xtxjxLVokmFKnwzJuNFJjc3u2xA BwFWVlVQTeTObscNk1MAGze750wu2qtfM4bVPpDRB0 YWlsYWJsZSBhcmUgZXZhbHVhdGVkXHBsYWluXGYxXG ZzMjJcbGFuZzEwMzNcaGljaFxmMVxkYmNoXGYxXGxv P8wzEyPkD8WyINKkNmGxlQCqJ5blaMNmRQJaDBfjNB YxXGZzMjJcbGFuZzEwMzNcaGljaFxmMVxkYmNoXGYx ATkrX9wjKiYfZ6FkFEVmShHaNEuzfLGrbwgyTWcwfk UkDTtmrqtdRMLsWUkgP3etKnQmQJOymEjxWOobv2Ra AJIqLMHkLmsrjaBcCWa8cjPmENTkrtcjpLJofpuuQF uknnFhRWycijopOLZjAFmqV2jbBkOjXWChlNasGUxz x0YqVSBoDSZcWekbwvPaNXtkcYFqp1cff0XdT5fbeI lyxIR9YFCkJ8itrPOzsFM1ZAW3lB4wVTvsesTzMZJq p0GkARQpNCZwLvK4mC0wSDP6JcBLjCpiOPGyZPxqUQ YxXGZzMjJcbGFuZzEwMzNcaGljaFxmMVxkYmNoXGYx ESpfV3foSkSmM2RiFEAwSwFssUyvLLfdBEl4CrpilL BqjotjBRqcnaTaZEzeqoalLPDhJNqdY5peMhFoFDId eRneNOtko3ErLIQxETXrWwjnufVhOEVtNDQqzDSatG ESAE09BDZzXXYryVffjX8kdHYDECHzysU7v3S6JQdx EQDdDEl9VBqupiYeKVJlrD3lFTNwJD0uWFl0tpUeBD Nlg3MkMQ4lJRBjtGQfIVH9KVUhm8AuZ3Kox9MqNTWi NRGcaj4prfSbKkIVfWNnODZfki48WRMxQO4rC2rtXD BcDNYfimQxwANoi5PsBCFtsOC7gSQnVY7HQgVDj54z YNMvFYWAaxAhEBLbvLpxzRB7aoE4sW8dQoKOaEZhKt KZLSbnepSrJTIplo0evxFtIKKkYDObg2DahYSciSYd ecPzR7Bbc6CmLOYcfo34FNmkmOHxfr89EK5oK1Jmg8 SmdO2nZCryUQTsm6CqvTDlrJNzNKXtu7SyN4edoxpc EWknwXGdmJ5uMWQcBGy9JSLdm0UvQTDeq5CjNnSzuw KxTPQaMDFyZZTztS27EDF6aKghbKrntrHvHK3eWYCf vyLcUFRlQELxrZ8dDFsckaEaRDYbiiF6z4T6ZNouCE AhywOoPszwXFC2emLhxnV3mIQpV9abmgysRUfqYJAp n9MfxW0teSLNsPVnp2DwaOPmhUSDwMFwST4zkfXfFC 2pXTK3IAovSUVJQFCqPNiqOOIqDJN5UOeoIozlSZY3 gfMyNWPlq1NrCRcjG1kvX43jpGdekXf6wSBbkOewxL TvrEFzWNWuvqC8m3D8VJLia5ZgfgrdWUCoWWqxLOQd XGZzMjJcbGFuZzEwMzNcaGljaFxmMlxkYmNoXGYyXG kyS3nvXdKsLkSnImtnBSU0zA== [facility] [id number] 15:37:15 Test Item Value Reference Range Interpretation Comments Case Report (test code Surgical Pathology = 104) Report Case: [id number] Authorizing Provider: Waleska Burns MD Collected: 08/24/2022 09:30 AM Ordering Location: [address] Received: 08/24/2022 02:23 PM Pathologist: Tereso Wiggins MD Specimens: A) - Large Intestine, Colon - Right/Ascending, random biopsies R/O colitis B) - Large Intestine, Colon - Left/Descending, random biopsies R/O colitis ADDENDUM (test code = [id number] 3381) gewyPxSVEkgXUwU0Nbdmxn VZrmXE3dWZ4mbMkbuSTmlT RtXUPwUjCqu2ugi167fPUy e8djSQQZLWuzPFSWWDz5y8 npFZNHcsrdlGs4iJiyM81w i8R7XigiC39osBOlJFE5NM WuLKIjcHTdNSXaRSY6CXKp nVVdH3saAVArJJ5ohqipIR owTPdySNHzwQQ7VYRmyAQe Z4OoXWBmLTpiGZMcxkp2Iw IdBm8fgCOevYuzMOcfSYIj XHBsYWluXGYxXGZzMjAgQW 4uvE4laJ7rn1YuhV6kFi9d IENNViBpcyBORUdBVElWRS 5ccGFyfQ== DIAGNOSIS (test code = m5jbmBXqRXTsx7wpABNkoM 3220) FuZzEwMzNcZnRuYmpcdWMx IHtccnRmMVxlcGljMTAyMD LzDZ6gvDjbyFs3qBjeVJSc bbG7kTUjWRtih7kgYJP6f9 gpfzaqQAQwUNriBv2qrTNm sDnbOfZkZRUlPNi4xN08CL MoiL6ifNKzDNe8UTVjpNFg nnDoNgKjPLWelRTywHB7KB WdPK8rjsqdJUozQLunQTRo hlV3OOMmjJKtV5SjTGMqDW 5trisrBLS9EXpuAQVgGUG1 FoYgWUJse3Qeguf3ZcGjxU FyZFxwbGFpblxmczIwIEEu BYMCR9yXB4BCM8PGBYgHJy CNM5nNRvmfVsNGTX5GGIGB AF2YQ1jLF8laYDMjMU7sB0 7FE50TXdTXPLCOA6BoJ7pQ UCAEBJROLWbbOl9WOPERHT NJRklDIEFDVVRFIElORkxB LP8TCIaJEkVKLtIiVm0CHP bqB7TTPIWrAFYRVCGJZ8gM WykzJMVlZQ2eJoPHSQJYGp PuGu8BUHIGLt3YKJNoZK3N VVJZIEFORCBEWVNQTEFTSU EuXHBhciAgLSBORUdBVElW GSHRF6XiAJtMYStAU3cFEC BiNC0TKRNEZYcQH2MAT3VN IENPTElUSVMuXHBhclxwYX OfCa6vVVhYMaImVSMYP2VI CUwYIjQDY9oWVzenTsHMDJ 8MNQIWQS9VZ6rPA4luHFUm BK7rM11AE09DOvDNUGNZR2 JfT4kKYEDHVfBJJWxVMWSC T8ISLFNXQUEMZ7bNV7ezTV BhciAgLSBORUdBVElWRSBG M5RpKXASAZQTYQgCRmcYCZ 0EDHeCWjkbD5gHI95TJwOV TkpVUlksIEFORCBEWVNQTE FTSUEuXHBhciAgLSBORUdB QHyZHCJXC0WzQNsYBMdCO8 hCHZOkTE8OELRGCVjNZ3PX A5QIKPVYHZgHZSDdDKXnmj ckPLU6s6xhgSWpWQOduZCn ODAwMFxhbnNpXGRlZmxhbm ppMJNpBNC2snObVOQdTIzn GBHtKImsLc7gmQZfhQjmZx GgZQVbb2ewupSGdhbieFw2 p3heXPFyExR4dDStPNdyH0 vrbjMrdQPbGFUqGTc1fL48 TVCnrZ7enDPsSBuhmxVwNs M7RUgnCKOaDnY2TPZaeEQw BFQwF8baTMYlKUwlXHCpQY hwqFFcPFE1wBcpk5L2sBRv aGVldHtcZjBcZnMyMiBOb3 HeWAl9uEdkU0TdGHUbPcL6 bHQgUGFyYWdyYXBoIEZvbn X1mF45PMectgE5jTXcv5Jf u86za592gG5xmWQoXVT8GV EoGCRblZNpSROnNJI6PDYe wLQrV0vsMTMuBX2asdzvHG fgZRbuHOYpkTV6GOCjkCLr I5TtAGWeBHnhOFGrhpl0Uc SkNt5naLUpkZhaQLqaa5hf v0ljhUHqDxx8FPIjShSzZv cdYXnbj7Phc0dlXXAswa1h NVK3rUHhfApwv6K7zJKuNK TgwTWyKEQoOQ1wyTNkLHVi bM5paqtwWDHiQhJtcfkwNP QaxJxxhlDkJs4meFlpCAG8 WQtqX9acoR3zMlU2HTqkG4 aanQ5cUHn8ICuyCHNdzAA3 szR7DFSypVHzI2FwmK7mAT XsDG5osmn7f1xvREJ0FPiw YZVtNkD5ybE1CHDbqESwCA LiaQulPApwg070CAL6QnPz ZXLug0PzT2MwrEtkK91sqP nnC59hLNVmzJcxpD5hwZsm aL1xWqJvTiQuVYcroZvgQU 7xPXVyH4fswEKtQLNeAUNb S7osEhLkkK6lgEgeVJgngf IpDRLlFsi9CTAbfVYvEITe Bnf9DJIpAIGfX41vyvocZM O5xG5xv2eww0NiMDqgNBX0 OCDju89wZIqmgeL4QVpfEt 47GRaqRMZ1LTfqQFD7rA== COMMENT (test code = a9lwuDRvTCOpnNYdIPVkMN 3338) zhcyKhLTDbhZMdH6Uzsphm NHpvTZ7zOX0qdJajxOPjhP NrGHPdLgTpo1vhe669lVJu j9boYGUPefsmyYy1wZbxI0 0bd9R4FoohR42onHWgIYV3 KERqAZRmkZApUACuJUS7YV CxrDQaV5ggSJXmAO7fipws YZuyHNimGHJazKI5UKSqiB OwC7FtUGRxWIffOPQwooz5 KpBxVf1hpXDuiOtuADlsRJ KpAPRdYAvyJBFuAuTcXa7z SBGowbNuAMvpLP6acY6kvG 1ty5XfpC1vTn9mZBUQQmE4 nYylRTZvSUOfuT0ykHTeDM luIGFuIGFkZGVuZHVtLiAg XSEiHIMisyUwO15gI1Xfwu B6gWSyPMGgGBFdZj70TCIl qPHlej4qqFQcPCOptb3= CPT Code(s) (test code n3essQNdOUNmuFYsEHXpZR = 3357) hmfiWsUYEhoWLbX1Qhahme TRjkDW5dBO6nwNchoZWmmZ OxJFOkVrAet2rsc744aFVv s0xoMTAOelrneZt0sKqhX4 2bq5Z6IqlmZ22ekBYpPNP1 UECsJOSpqQZxLZFbMCD0OM XesOSeC8poEVYjVA7qzxec RXevVDixLFKcuWS7MKLuoN PqF8FhYSSzOGhnMWEpjmk3 TbFdYc2xbIGiaCvkVYfjEA JkXHBsYWluXGZzMjAgODgz EUVzuHJaVRW4TPE9LfhbVI J9 CLINICAL HISTORY (test j8iqnOPqDNHibOJuPKIlNK code = 3356) rgquYhRZSfqYKtR5Hevxwv DRbpXY5bEW8enUoxgKUaoU DuBXGtEqPir4ceh248kYRt z9ccMRQItiuwqMa8gFifW8 3it5K1RggnX76znYWkYFE2 PGYzCRMnpNTdMUHaVWR7ZK HvwTMkM9igAUUrHF4fycfh RFqeWBzdZKMquSJ3GHDyjQ DqT4OmOGBsHObtARVunvk7 HyRpIc0mbRIrhDguQXetZD JkXHBsYWluXGZzMjAgSXJv crLmAAVsI4ebspW5LYBzOH 3mXI4ejLRjgU== GROSS DESCRIPTION (test f2emvJFeRWIfbWAGNCQcPW code = 3588888656) JoMT8omQuheWc1oBxkFSYz amH2cUCkUOiqy1ctSBY9d7 mfxnBFEobjFMHoRW8xNZiv YPBjDB1zYdTkQUYoJoOqXT BhcGVydzEyMjQwXHBhcGVy zBO1TTKlFO7gtsmxPYozIV neKJTvqxN1KEZjcDPnU0Kd PUXeIV3vwjcwINO1GSASFt hsQo8xlMTymQesRxEkXzOg YXJzZXQwXGZuaWwgQXJpYW s9xJ2WJnlfB63gx9S4Pls2 MVZkLBQzE1LaPT2xDFBjgZ DeP24YCcquRAX6TXBBWcxj ChqkcTnsg6TjcVAvMLHvDV xcaWQgNTEwMDAgXFxkYiBP ZiAdZxE5EzX9LJd6YlA6CK z5ZBLLRXDsSUL4CAYjXYC8 HUs9TZSlNL4qHSammVZnVW nsPoemUVacP203LMvtHWRz M4JxA2UwMWslWsIjJHnqSJ RbKPNiGNpeHAWzO1RFXJMh CIG4TVM5ESFxDHy5LQtpX8 IMRXPnULH1OPpqKpi6WwJ4 BRo0SKMLZq3uOpY6MeP9IG RdWSQ0BFDcNRqusDWxNGnj o8HsSfOzMUCkVKrhxnR1LZ FiqeEpKMuywPdxbP1tHyUj MiBBLiBMYXJnZSBJbnRlc3 SaxrSxZLOwxV2nVS7wXdkr bDTeKMKuNV0khN6pNGWwjm OGUimaNJCtCW2VJDVuKLvc JDVaCuExxTEvQ4vqRQNuH5 0iq9HQg9JoPF8FVJw8yiYm lubquB5pETLgljFmWObwM5 VkOAIyPnGtAtYsPMv9TXSq bG2lBr1txAQweF6ymDVcLQ ldWXG0vSEzIVYwSQCrOYWq MX32DYmOSNHbznFwMHtqcR VkaWNhbCByZWNvcmQgbnVt YmVyIGFuZCBcdTgyMjAgXC b4W2BrA1ZvVXgzLsWrj0bx yjUuBGGbMH72tYAllErwCK Dpre15SShwi9mxuH9rcFTu ODHsGHLah8T9TWPzy1H2HP ObmfAiyMPmsTMtksAzE2zh MnIxygMhxNssBQBdu57qMH 2dURQbUVWdUvBhzGznw0hq G3dxUBGzKCT2Dc8udUHxRK VakbC5t1YjYOpsCOUoMlkf YPTsWQakuJSrYA7WIDNjKi OdTHUzX1brOVRyJR7KTEVz YEizscPdXF7FMXKpzHOWKF V8EJ7hYBfdKOCrJ8QvT7Wp kuK2KTIfzwRDVbrxNjsnpV zzr4XcrHDnAPKfOJudvFCl NTEwMDIgXFxkYiBPVlIgIi B1XmE5OOr3QmE5GIu5PKMW BmSeWaUbBbDwQCY3XMRoOR z4KRe6MAmLVvB6QlmvXSL6 IIpcYCB0UxQcJOf1EIQjCV annfVqCOkrEwkoNHhhI78c cGFyZFxzYjEwNVxlcGljWH GqGBB3TW8USs6oDGBbU4Oj JS69QRM3tC4jVZRLe3lpyw MbNMzuClYpNJPwO3CfSJkr U8usJPHkWZrccGJmLJDDZv xwbGFpblxsdHJjaFxmczIy EZQxaVIWOSS7JT1kXAPSCp rsaUXdNKQdnQcrEEsktN4a TWMvNtFeGQJyL5mmIcYvOZ 0PHQLhOZuxspYtXZIrZ9Ob feVmCAmsGYTiru0lkCblIP owTzBeUXNgu8a3zJM1eTXo vQN0pLFhsEpbJrRsPJ7xjP EqFL5nNSnxUTflxtRqd2Pz KA22mOFsqnFdsdZaRWM2Mv TiMGkaIMMjLNFvJH2drS1r GSHuaD0aBnHgxbCtIQP9LE 1qrDZamP89EALnUJQjum9o SETuu37awYD0gVWalHAjVj WlN24mviVvNCTfrwisolbz sE0hp0j4EEEbuc5uJLDrSn G4obTrWmAmT76zISudyIVs KGFwIBYbzSSevLN1ILVndJ 4ceD02jgIpxgYLAA0wrITu EP9YGKZzTOfuzDmfPGDmHC WFLiuwXFGgUDpOLWHdhG6j ZbTtw3JvvERxAE1LFUXnzu JNPyfoWTBuNEMkcAWPl5As MCANClxjZjBcZnMyMiANCl vaxYqeRbKdoBQwEhV1TIEj vBKqYNT8AT7snAdbWTVfD3 BnI8UlqrH4DYOipzYRXyki CHQvOB5EiQ== MICROSCOPIC DESCRIPTION g9gefHAcLHSjqEQaKCBsDU (test code = 3371) cfdvNqRLXkcDAoL9Drnldd NIqhNQ6tFG9usNjalXYmlA EpYJEjJgViz3iqk344aVPv n6zqXRMYyilhsJf7qKbfQ3 9ex5G4YheuJ70emNIrEUM8 FONyDQTpmKOkMANgXSK7VW SdeKAeQ1doAFWpBZ4hmeqx ZFsxPAhjVYXdaST0NQGqjU IuA5KvEAMlEYxmKSFtfup8 MrWjRn5kkRKhmCmlPNvjZO JkXHBsYWluXGZzMjAgUGVy Ro7kiKOtUvLxXNSdnc8= SPECIAL STUDIES (test t4whkLSpNHSdn2pmSWXiwE code = 3376) FuZzEwMzNcZnRuYmpcdWMx ZPsgpqXmEFhxo0KrQ2DjKw AwMFxhbnNpXGRlZmxhbmcx NPEnOXT9spJsJRHuOIpuLG NzZOedXa1mtWQrlLtnWcTe SGKiz1hxuzBRzcjzcHj6n8 pgDSThTuO4yHJeZLneY5rg cfEfnEFzM8UyfSDjvOz3i4 zbEwWlVaB1wUVvKIcwM1jx cnVpjWZiJOPeSVx1cD67ED PfjE7qsZYyYWyqxeKnNeC7 JUwtREEuUoU8TVAzmXWfWI XjM1uiAPUpVCrmQNBhQJfg fGOjNLE1hXucf7S5mRIjhF UacHhuUrNqUpXaSaNDh5Hu KGu5iLftF7KwFWEqBtM2tV QgUGFyYWdyYXBoIEZvbnQ7 sBavdcDki04qvYMgZEFlMF BbBtKjlWytKUCnIFJTk3Et fCxaPTP3mRt2fLpkPcbtVJ R4Ywt2FC0mel49lzf8rDdu ONFpzfqtPqE4KZuxAZClve koSSy7HGzxPPDbpOK7SVVm lXHcF7WdQRKiEV5vjos6AR C7EFcrPIPyBrP9DICtnXVr BKSwkIouHApoz510QEX0Ky GgKK1hV0Jup4I8iQ2avCBd NXDiaGXtHzAfARQffm8clI XoDUaqd7NsUJP6hhT1rZEz lZRkAWWeLE11Znssm9MoOp fnp9NiB00upRR1CPipn6mo DQ8wHvE3myTuNTtdj6ffgB 9cMtW8TXikXG7xAX5iFCOn nA3xwexvACMiLqBlrfzdSJ HuxZlhviEnCs3smOjpEMS4 LTgaR5ygnJ6bEfO2AQjuZ6 gqxK3aBRf9YKvyaRK2ERNs cK6fTN4plmfrl5ljTXffVZ ajKQAbroL2nrT4MYSgzKQi N4JjwE5jEZFiWC1ivqcgf1 duNFF5OMziDUOyMUM7NiDh TZPqq7Bazrk9DlWee6KshO IpAFulA03uz144VOIuviLx B6iprLBgqgjdtCHskpvgRU elkkQ6YTWbYWIfXEolBQHg XGZzMjJcbGFuZzEwMzNcaG ljaFxmMVxkYmNoXGYxXGxv I0dnWeIkH7YfVLNgClBeRG tsTLbghIWuxCDedHR6fC4j US1fAMBngBKkY0NyHNGlmx DufISqKBR0mSAglIKsVZ5q URimpKQvp4nwy3PjU7xceX xwvHD6ZE5qRNVjITXyAGyt b0IhaF2hUhweaGYzcoowFQ xmczIyXGxhbmcxMDMzXGhp H4bqXoKaLNVwpRpzJHcwl2 NoXGYxXGNmMlxmczIyXGx0 cmNoXHBhclxwYXJccGxhaW 8lBwHnLdGpRwhdGW2fJOUq J4aduNRpOWQnGYGiY5dcHh SkkW3vuFqkAAwdYmDuHqNq OlMYo593xr2dUWJsfFYxrk XXbNCrbA2mGRkoKGbnBAgg jUIwJLcst4fePREca7p7pR AuHASgetPea2gdAQnnyzUy OZMhcXSpqMQsRFKsp11wZQ acuLzgwXxvHMXnh0AuwHim i2YhZgJzCDkij9WfW95zpP JvbCBzbGlkZXMgcnVuIGFs n62yp5dcQZAgIqE1iZEjeA P5gIZmtATwu7ZfjErtNVZc m3auUVDgwu9yoysoaCUow3 OqcW6bplqtWTjnjXVnjvSk ELIcv0h4uPNbLNWdERVtFG oemJv6LVMdi937jo1nilW1 oIKyRAL0RKkrEHSvCOQhjm UgZXZhbHVhdGVkXHBsYWlu XGYxXGZzMjJcbGFuZzEwMz NcaGljaFxmMVxkYmNoXGYx DReqE5tbTsWqN6OeZLHbKw CcjKLkP4lshMXzNLNtBHib XGYxXGZzMjJcbGFuZzEwMz NcaGljaFxmMVxkYmNoXGYx WSvzJ7biIrIdF6LcZHHhAw IgIFxwbGFpblxmMVxmczIy FLafsgrjEXPqPOchN5qhOu MpBFFgpFelUGebx0XhRNUc NUPpMrkktmPiYAo6wpIySW BhclxwbGFpblxmMVxmczIy APxrzpeaLIDmMJkwY9qgEm FkWQGdwWuhNBzoq5KwVSFa XGNmMlxmczIyIEltbXVub2 twt4UzD7qujPunxCF8JPEf J4deuCKvsIB9MTF8cG5nOK comfBaUSEez5DrNSWgMZYx LwA0qE9bYDC5YiNSeWghWN BsYWluXGYxXGZzMjJcbGFu ZzEwMzNcaGljaFxmMVxkYm DrLGJyOFhbK7niLkYuW3Df KHBcZvMlrPxgSUmcVOp5Qc xwbGFpblxmMVxmczIyXGxh uaswFSLhKSaoV6enYmPqCY ZfuIjyLTamo7FsGVNgEEQx MlxmczIyIHMgTWVkaWNhbC HJJJ93ZGNcNLHrtWjbyE5w iCZUDVVxunW4u0Y9ZTlcSR LwFYo4NBbtrxClCLDvyN3w SMMoBW2bVRi7jzHqVTBmj1 XdWN2pGQGwcCSvHHL5EKGa a5HtW6Eev9PtAEObLOXush 7avuLvRiASgXImSPGcpa48 COGcDI1oF8vxISVeBLGeag MaqLIoj1PzFWIjrUM2uYYs HM8XZyAVi64hPNPrJLPBbc OgVFBgyFvtcGK1wpE2xB8r LiBUaGUgRkRBIGhhcyBkZX Ldjy9tgpJjHZQrUJNwj6Ks yVMfwXUrsqMiW8Qby3LoCB Jxex05NOkusZAkaf21YA3v J8Jqq4YeeX6rZFvuFANqy5 XmuSXldFHxFIPjs5GsK5gn esccQSxkpMZdfP0kLYOiBO e4AHKpl2YtUUNyq8QuXsCo pnGpELUeSBOgZLIjzS92PF U6eGehqLvxbjMkHT5rYJYc ocWbSYFtCFTkcV9xDEojki YbQVCehyL3z9O0OGvcXZJp vaKdOxtbNQW3czEiukS6gI KfQ3wlfbfeVWrgNTOwk8Gs jA5irMSZjWNjo8OpqMZsmG RZtTGvRQ8fplEbJZ6pJBT3 ODggKENMSUEtODgpIGFzIH S9WOdvTczwCGE6zdZeLQFs z6QbLPvaP6igN33baNdrrR g9kVPfpLhxzCEqcJNmNVXi ovF8b3Z5JWJje8MnuayaUM BsYWluXGYyXGZzMjJcbGFu ZzEwMzNcaGljaFxmMlxkYm PfUZYoRRxqN1zaZhWuGuWv DozaEMU7kE== [facility] [id number] 15:37:15Surgical Pathology Report Case: [id number] Authorizing Provider: Waleska Burns MD Collected: 08/24/2022 09:30 AM Ordering Location: [address] Received: 08/24/2022 02:23 PM Pathologist: Tereso Wiggins MD Specimens: A) - Large Intestine, Colon - Right/Ascending, random biopsies R/O colitis B) - Large Intestine, Colon - Left/Descending, random biopsies R/O colitis An immunostain for CMV is NEGATIVE.Addendum electronically signed by Tereso Wiggins MD on 08/29/2022 at 3:37 PMA. RIGHT/ASCENDING COLON, RANDOM, BIOPSIES - COLONIC MUCOSA WITH PATCHY NON-SPECIFIC ACUTE INFLAMMATION AND FOCAL CRYPT APOPTOSIS. - NEGATIVE FOR CHRONIC INJURY AND DYSPLASIA. - NEGATIVE FOR LYMPHOCYTIC AND COLLAGENOUS COLITIS.B. LEFT/DESCENDING COLON, RANDOM, BIOPSIES - COLONIC MUCOSA WITH NO SIGNIFICANT PATHOLOGY. - NEGATIVE FOR ACTIVE INFLAMMATION, CHRONIC INJURY, AND DYSPLASIA. - NEGATIVE FOR LYMPHOCYTIC AND COLLAGENOUS COLITIS. Signing Pathologist Direct Phone Line: [phone] signed by Tereso pugh MD on 08/25/2022 at 7:05 PMFor part A, an immunostain for CMV will be reported in an addendum.Dr. 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 Large Intestine,Colon - Right/AscendingReceived in formalin labeled with the patient's name, medical record number and "ascending colon" are multiple pool-yellow to pool-red soft tissue fragments ranging in size from 0.1 to 0.3 cm, which are submitted in toto in A1.B. Large Intestine, Colon - Left/DescendingReceived informalin labeled with the patient's name, medical record number and "descending colon" are 4 pool-yellow to pool-red soft tissue fragments ranging in size from 0.3 to 0.5 cm, which are submitted in toto in B1.Kathia BanksPerformed. The interpretation of this case included the use of immunohistochemistryor special stains.Control Slides Examined: In-house known positive controls were evaluated along with the test tissue. These control slides run alongside of the patients sample show appropriate staining. Internal positive and negative controls when available are evaluated Immunohistochemistry technical testing was performed at [facility], Pathology Laboratory where it was developed and its performance characteristics were determined. It has not been cleared or approved by the U.S. Food and Drug Administration. The FDA has determined that such clearance or approval is not necessary. The test is used for clinical purposes. It should not be regarded as investigational or for research. This laboratory is certified under the Clinical Laboratory Improvement Amendments of 1988 (CLIA-88) as qualified to perform high complexity clinical laboratory testing.POC-Glucose [id number] 13:08:58 Test Item Value Reference Range Interpretation Comments POC-Glucose Meter (test 147 mg/dL 70-110 H : TE STED AT [facility] code = 1538) [address] [place] [address], 770 30: Rouge Mixer/Techni tawana ID = [id number] for JAYSON COE Lab Interpretation (test Abnormal code = 98687-9) [facility] [id number] 13:08:58 Test Item Value Reference Range Interpretation Comments POC-Glucose Meter (test 147 mg/dL 70-110 H : TE STED AT [facility] code = 1538) [address] [facility], 770 30: Rouge Mixer/Techni tawana ID = [id number] for JAYSON COE Lab Interpretation (test Abnormal code = 70774-5) [facility] [id number] 13:08:58 Test Item Value Reference Range Interpretation Comments POC-Glucose Meter (test 147 mg/dL 70-110 H : TE STED AT [facility] code = 1538) [address] [facility], 770 30: Rouge Mixer/Techni tawana ID = [id number] for JAYSON COE Lab Interpretation (test Abnormal code = 93040-1) [facility] [id number] 13:08:58 Test Item Value Reference Range Interpretation Comments POC-GLUCOSE METER 147 mg/dL 70-110 H : TESTED A T [facility] 6720 (BEAKER) (test code = RADHA Riddle [facility], 1538) [address]: Rouge Mixer/Techni tawana ID = [id number] for JAYSON JONES POCT-GLUCOSE [id number] 08:04:25 Test Item Value Reference Range Interpretation Comments POC-GLUCOSE METER 107 mg/dL 70-110 : TESTED A T [facility] 6720 (BEAKER) (test code = RADHA Riddle [facility], 1538) [address]: Rouge Mixer/Techni tawana ID = [id number] for JAYSON JONES BASIC METABOLIC [id number] 06:38:35 Test Item Value Reference Range Interpretation Comments SODIUM (BEAKER) 134 meq/L 136-145 L (test code = 381) POTASSIUM 4.3 meq/L 3.5-5.1 (BEAKER) (test code = 379) CHLORIDE (BEAKER) 104 meq/L 98-107 (test code = 382) CO2 (BEAKER) 20 meq/L 22-29 L (test code = 355) BLOOD UREA 90 mg/dL 7-21 H NITROGEN (BEAKER) (test code = 354) CREATININE 2.26 mg/dL 0.57-1.25 H (BEAKER) (test code = 358) GLUCOSE RANDOM 105 mg/dL 70-105 (BEAKER) (test code = 652) CALCIUM (BEAKER) 8.7 mg/dL 8.4-10.2 (test code = 697) EGFR (BEAKER) 23 Interpretatio n of eGFR (test code = mL/min/1.73 values Stage De scription 1092) sq m Result G1 Mckayla l or high >=90 G2 Mildly decreased 60-89 G3a Mildl y to moderately 45-5 9 G3b Moderately to s everely 30-44 G4 Severl y decreased 15-29 G5 Kidney failure <15Reported eGF R is based on the CKD-EPI 202 equation that d oes not use a race coefficientEsti mated GFR is not as accur ate as Creatinine Sera guidry in predicting glom erular filtration rate . Estimated GFR is not appl icable for dialysis patien mitzi Rouge Mixer ID - [id number] 06:15:11 Test Item Value Reference Range Interpretation Comments MAGNESIUM (BEAKER) (test code = 2.3 mg/dL 1.6-2.6 627) Rouge Mixer ID - [id number] (HEMOGRAM ONLY)2022-08-28 05:02:28 Test Item Value Reference Range Interpretation Comments WHITE BLOOD CELL COUNT (BEAKER) 7.0 K/ L 3.5-10.5 (test code = 775) RED BLOOD CELL COUNT (BEAKER) 3.05 M/ L 3.93-5.22 L (test code = 761) HEMOGLOBIN (BEAKER) (test code = 8.3 GM/DL 11.2-15.7 L 410) HEMATOCRIT (BEAKER) (test code = 27.1 % 34.1-44.9 L 411) MEAN CORPUSCULAR VOLUME (BEAKER) 89 fL 79-95 (test code = 753) MEAN CORPUSCULAR HEMOGLOBIN 27.2 pg 25.6-32.2 (BEAKER) (test code = 751) MEAN CORPUSCULAR HEMOGLOBIN CONC 30.6 GM/DL 32.2-35.5 L (BEAKER) (test code = 752) RED CELL DISTRIBUTION WIDTH 17.4 % 11.7-14.4 H (BEAKER) (test code = 412) PLATELET COUNT (BEAKER) (test 164 K/CU MM 150-450 code = 756) MEAN PLATELET VOLUME (BEAKER) 11.3 fL 9.4-12.3 (test code = 754) NUCLEATED RED BLOOD CELLS 0 /100 WBC 0-0 (BEAKER) (test code = 413) POCT-GLUCOSE [id number] 20:51:43 Test Item Value Reference Range Interpretation Comments POC-GLUCOSE METER 132 mg/dL 70-110 H : TESTED A T [facility] 6720 (BEAKER) (test code = RADHA [place], 1538) [address]: Rouge Mixer/Techni tawana ID = [id number] for Ts ada, Celi HEMOGLOBIN AND [id number] 17:30:38 Test Item Value Reference Range Interpretation Comments HEMOGLOBIN (BEAKER) (test code = 8.9 GM/DL 11.2-15.7 L 410) HEMATOCRIT (BEAKER) (test code = 28.4 % 34.1-44.9 L 411) Rouge Mixer ID - [id number]-GLUCOSE [id number] 17:28:50 Test Item Value Reference Range Interpretation Comments POC-GLUCOSE METER 133 mg/dL 70-110 H : TESTED A T [facility] 6720 (BEAKER) (test code = [facility], 1538) [address]: Rouge Mixer/Techni tawana ID = [id number] for JAYSON JONES POCT-GLUCOSE [id number] 12:49:12 Test Item Value Reference Range Interpretation Comments POC-GLUCOSE METER 137 mg/dL 70-110 H : TESTED A T [facility] 6720 (BEAKER) (test code = [facility], 1538) [address]: Rouge Mixer/Techni twaana ID = [id number] for JAYSON JONES POCT-GLUCOSE [id number] 07:49:08 Test Item Value Reference Range Interpretation Comments POC-GLUCOSE METER 122 mg/dL 70-110 H : TESTED A T [facility] 6720 (BEAKER) (test code = [facility], 1538) [address]: Rouge Mixer/Techni tawana ID = [id number] for JAYSON JONES BASIC METABOLIC [id number] 06:18:57 Test Item Value Reference Range Interpretation Comments SODIUM (BEAKER) 131 meq/L 136-145 L (test code = 381) POTASSIUM 4.5 meq/L 3.5-5.1 (BEAKER) (test code = 379) CHLORIDE (BEAKER) 105 meq/L 98-107 (test code = 382) CO2 (BEAKER) 19 meq/L 22-29 L (test code = 355) BLOOD UREA 83 mg/dL 7-21 H NITROGEN (BEAKER) (test code = 354) CREATININE 2.45 mg/dL 0.57-1.25 H (BEAKER) (test code = 358) GLUCOSE RANDOM 107 mg/dL 70-105 H (BEAKER) (test code = 652) CALCIUM (BEAKER) 8.7 mg/dL 8.4-10.2 (test code = 697) EGFR (BEAKER) 20 Interpretatio n of eGFR (test code = mL/min/1.73 values Stage De scription 1092) sq m Result G1 Mckayla l or high >=90 G2 Mildly decreased 60-89 G3a Mildl y to moderately 45-5 9 G3b Moderately to s everely 30-44 G4 Severl y decreased 15-29 G5 Kidney failure <15Reported eGF R is based on the CKD-EPI 2020 equation that d oes not use a race coefficientEsti mated GFR is not as accur ate as Creatinine Sera chao in predicting glom erular filtration rate . Estimated GFR is not appl icable for dialysis patien ts [employer] Mixer ID - [id number] 06:17:39 Test Item Value Reference Range Interpretation Comments MAGNESIUM (BEAKER) (test code = 2.2 mg/dL 1.6-2.6 627) Rouge Mixer ID - [id number] (HEMOGRAM ONLY)2022-08-27 06:01:30 Test Item Value Reference Range Interpretation Comments WHITE BLOOD CELL COUNT 7.6 K/ L 3.5-10.5 (BEAKER) (test code = 775) RED BLOOD CELL COUNT 3.10 M/ L 3.93-5.22 L (BEAKER) (test code = 761) HEMOGLOBIN (BEAKER) 8.5 GM/DL 11.2-15.7 L (test code = 410) HEMATOCRIT (BEAKER) 27.9 % 34.1-44.9 L (test code = 411) MEAN CORPUSCULAR 90 fL 79-95 Discordant results VOLUME (BEAKER) (test compar ed to previous code = 753) results; clinic al correlation req uired MEAN CORPUSCULAR 27.4 pg 25.6-32.2 HEMOGLOBIN (BEAKER) (test code = 751) MEAN CORPUSCULAR 30.5 GM/DL 32.2-35.5 L HEMOGLOBIN CONC (BEAKER) (test code = 752) RED CELL DISTRIBUTION 17.3 % 11.7-14.4 H WIDTH (BEAKER) (test code = 412) PLATELET COUNT 168 K/CU MM 150-450 (BEAKER) (test code = 756) MEAN PLATELET VOLUME 10.8 fL 9.4-12.3 (BEAKER) (test code = 754) NUCLEATED RED BLOOD 1 /100 WBC 0-0 H CELLS (BEAKER) (test code = 413) POCT-GLUCOSE [id number] 21:00:19 Test Item Value Reference Range Interpretation Comments POC-GLUCOSE METER 138 mg/dL 70-110 H : TESTED A T [facility] 6720 (BEAKER) (test code = [facility], 1538) [address]: Rouge Mixer/Techni tawana ID = [id number] for Celi Gutierrez POCT-GLUCOSE [id number] 17:09:30 Test Item Value Reference Range Interpretation Comments POC-GLUCOSE METER 115 mg/dL 70-110 H : TESTED A T [facility] 6720 (BEAKER) (test code = [facility], 1538) [address]: Rouge Mixer/Techni tawana ID = [id number] for JAYSON JONES HEMOGLOBIN AND [id number] 16:35:57 Test Item Value Reference Range Interpretation Comments HEMOGLOBIN (BEAKER) (test code = 8.9 GM/DL 11.2-15.7 L 410) HEMATOCRIT (BEAKER) (test code = 28.6 % 34.1-44.9 L 411) Rouge Mixer ID - [id number]-GLUCOSE [id number] 13:29:44 Test Item Value Reference Range Interpretation Comments POC-GLUCOSE METER 158 mg/dL 70-110 H : TESTED A T [facility] 6720 (BEAKER) (test code = [facility], 1538) 35186: Rouge Mixer/Techni tawana ID = [id number] for JAYSON JONES POCT-GLUCOSE [id number] 09:15:45 Test Item Value Reference Range Interpretation Comments POC-GLUCOSE METER 111 mg/dL 70-110 H : TESTED A T [facility] 6720 (BEAKER) (test code = [facility], 1538) [address]: Rouge Mixer/Techni tawana ID = [id number] for JAYSON JONES BASIC METABOLIC [id number] 06:36:54 Test Item Value Reference Range Interpretation Comments SODIUM (BEAKER) 131 meq/L 136-145 L (test code = 381) POTASSIUM 4.6 meq/L 3.5-5.1 (BEAKER) (test code = 379) CHLORIDE (BEAKER) 104 meq/L 98-107 (test code = 382) CO2 (BEAKER) 20 meq/L 22-29 L (test code = 355) BLOOD UREA 66 mg/dL 7-21 H NITROGEN (BEAKER) (test code = 354) CREATININE 2.07 mg/dL 0.57-1.25 H (BEAKER) (test code = 358) GLUCOSE RANDOM 80 mg/dL 70-105 (BEAKER) (test code = 652) CALCIUM (BEAKER) 8.6 mg/dL 8.4-10.2 (test code = 697) EGFR (BEAKER) 25 Interpretatio n of eGFR (test code = mL/min/1.73 values Stage De scription 1092) sq m Result G1 Mckayla l or high >=90 G2 Mildly decreased 60-89 G3a Mildl y to moderately 45- 59 G3b Moderately to s everely 30-44 G4 Severl y decreased 15-29 G5 Kidney failure <15Reported eGF R is based on the CKD-EPI 2020 equation that d oes not use a race coefficientEsti mated GFR is not as accur ate as Creatinine Sera chao in predicting glom erular filtration rate . Estimated GFR is not appl icable for dialysis patien ts Rouge Mixer ID - [id number] 06:35:17 Test Item Value Reference Range Interpretation Comments MAGNESIUM (BEAKER) (test code = 2.1 mg/dL 1.6-2.6 627) [employer] ID - [id number] (HEMOGRAM ONLY)2022-08-26 05:33:34 Test Item Value Reference Range Interpretation Comments WHITE BLOOD CELL COUNT (BEAKER) 8.2 K/ L 3.5-10.5 (test code = 775) RED BLOOD CELL COUNT (BEAKER) 3.17 M/ L 3.93-5.22 L (test code = 761) HEMOGLOBIN (BEAKER) (test code = 8.6 GM/DL 11.2-15.7 L 410) HEMATOCRIT (BEAKER) (test code = 27.4 % 34.1-44.9 L 411) MEAN CORPUSCULAR VOLUME (BEAKER) 86 fL 79-95 (test code = 753) MEAN CORPUSCULAR HEMOGLOBIN 27.1 pg 25.6-32.2 (BEAKER) (test code = 751) MEAN CORPUSCULAR HEMOGLOBIN CONC 31.4 GM/DL 32.2-35.5 L (BEAKER) (test code = 752) RED CELL DISTRIBUTION WIDTH 17.1 % 11.7-14.4 H (BEAKER) (test code = 412) PLATELET COUNT (BEAKER) (test 193 K/CU MM 150-450 code = 756) MEAN PLATELET VOLUME (BEAKER) 10.9 fL 9.4-12.3 (test code = 754) NUCLEATED RED BLOOD CELLS 1 /100 WBC 0-0 H (BEAKER) (test code = 413) Prepare Leuko-Red [id number] 23:54:00 Test Item Value Reference Range Interpretation Comments CROSSMATCH (test code = 2264) COMPATIBLE Unit ABO (test code = B Pos 2382132) UNIT NUMBER (test code = [id number] 934-0) Status (test code = 6663667) TX_TIMEINCHART Blood Bank Product (test code RED BLOOD CELLS = 2263) PRODUCT CODE (test code = [id number] 933-2) [facility] [id number] 23:54:00 Test Item Value Reference Range Interpretation Comments CROSSMATCH (test code = 2264) COMPATIBLE Unit ABO (test code = B Pos 5213330) UNIT NUMBER (test code = [id number] 934-0) Status (test code = 5161516) TX_TIMEINCHART Blood Bank Product (test code RED BLOOD CELLS = 2263) PRODUCT CODE (test code = L0537G49 933-2) [facility] [id number] 23:54:00 Test Item Value Reference Range Interpretation Comments CROSSMATCH (test code = 2264) COMPATIBLE Unit ABO (test code = B Pos 4200100) UNIT NUMBER (test code = [id number] 934-0) Status (test code = 4931109) TX_TIMEINCHART Blood Bank Product (test code RED BLOOD CELLS = 2263) PRODUCT CODE (test code = G4179F47 933-2) [facility] [id number] 21:00:55 Test Item Value Reference Range Interpretation Comments POC-GLUCOSE METER 144 mg/dL 70-110 H : TESTED A T [facility] 6720 (BEAKER) (test code = RADHA SCHULER [place], 1538) [address]: [employer]/Techni tawana ID = [id number] for MELANY GONZALEZ RA Tissue [id number] 19:05:42 Test Item Value Reference Range Interpretation Comments Case Report (test code Surgical Pathology = 104) Report Case: [id number] Authorizing Provider: Waleska Burns MD Collected: 08/24/2022 09:30 AM Ordering Location: [address] Received: 08/24/2022 02:23 PM Pathologist: Tereso Wiggins MD Specimens: A) - Large Intestine, Colon - Right/Ascending, random biopsies R/O colitis B) - Large Intestine, Colon - Left/Descending, random biopsies R/O colitis DIAGNOSIS (test code = d2mglCLwDUFav4rdVSHstM 3220) FuZzEwMzNcZnRuYmpcdWMx IHtccnRmMVxlcGljMTAyMD JzVA9flEnmiJq9fPqtGIWb ueB5iUPiVYxtz3jyBYQ1e2 kmxvszHBSuOKpuTw1tbLVn dLwrNlGdDSGiVXq8xE08YX CyrU0diXCiGQf5OFPssUSw kdUuKnPpWYXpnAGthRB5CX DqBS0fzkwwZOahVGqwKGVi bnA5OSHqdGCnC2JuGJHjFW 5rhmnkDJH1LKqaCSXyRCI8 NjZoGDTpx9Wytkb7VhJlqA FyZFxwbGFpblxmczIwIEEu NVIYJ1qAP5KFE5EEFOfQGt ZAO4sBJrpxMnGHEJ5FVJKV UA3DU6bHY6mxQMXqSS8bA0 4HM76ZOiINFLSVG4YxI1hE WAMDQRPMCTvnOd1ATDCFYK NJRklDIEFDVVRFIElORkxB UI2PWAxARuVVWoKmYz9GFX zvX2TXTYXdUOCGTHQQI4nT HrhjHWUtBU6fRoAYDIIWUe KbVn3IYSVPPn8CNPIxLM3J VVJZIEFORCBEWVNQTEFTSU EuXHBhciAgLSBORUdBVElW FMZQH3OlXUdOVZzNO9rELB UpFT8GCAWRUArLC5FUR3RS IENPTElUSVMuXHBhclxwYX LyCq6iMAzRKePfGPWFN1GW AEyVEmBOL2cSRlctKuGSEW 5UVYEUEJ7YW7cAK7ziIGUe HD6xF66VS90MVwJVQZKGE2 ShR5mELOLZBdJQTQkPUQOU S8GQUZDTDEWOU0hUR3ybXL BhciAgLSBORUdBVElWRSBG M1IoEEUIKPQHRDbDRswCQY 4VQIpWZftwO5cAG69JHxIH TkpVUlksIEFORCBEWVNQTE FTSUEuXHBhciAgLSBORUdB ORpEZXURL6HjFAzKODhXM9 rMHPAyMU9OMLZCFIoUY1BZ C0KECDQQYEqIRLEyBNUcas moCYI8n6cxdFXkJKAyiYAb ODAwMFxhbnNpXGRlZmxhbm fbSGSuTMS9yyRkOQNgKPft FOPzEIjyKr6ewKBgaWbjAw WuWIXbg9nytmAJsasmlVd5 s0zpTRGxJcU8sGXdKBcdN2 kwulFpcHMoGDZrFUl7uS75 NHMpqT5vmYLuNSyffhFyOw R6RJucSQIjOjN4UEFrsHMe VIEwF3yiDRBnMQxiTDQmUY mniYWnBRU2cIpse4Q5wIFd aGVldHtcZjBcZnMyMiBOb3 MwJAe2sUhsI2QyQFCwIiS7 bHQgUGFyYWdyYXBoIEZvbn Q9pA65SQdgtpH1wXAzp4Th y98oz082xY7tsPDpELP6YL KiBZSriPVnNWXkISH9YBFu mEApO6wgZBVaEA5exicgEV atICfsTIWbwUB7WMPetXAh K5VwOIVuQAanOMUqrfa1Nu RlMn2shFQscNjvWOzmx2qp u7jidRScJtg3STGmNqAsTs ogFOvfz6Awd0ujMVUhuu1r NDJ8nLWteCcnj9I0vWPqTZ GgkNMwEGZkBX1msQCaAZFo gJ3texufIYCbRkBvoorjLB FmxHrhmxNnMo7niJgsOUR7 GIfrR2ziuX8hKkF4SGmhX3 grmR5xXSp4LKwnCFEepXB8 cjG1ELTusUInM5PunT1dDJ NnVN7fiku1j1fzKWE2JVlc BEGfGfQ1yfU9WPClsBQlOP WevOtwPRnna185QPN3FwSa NXQiw8UjK5QiqPweS34sdH znU79lYBHgrFwthJ3hzNbb fP1rFpPhXoNgIXrylZcaYA 7hLCJsD1itoVGeNHGmEONj R3uoQqLswA1qgJguETzrkg LoVNVcBtx0JMJwfVZvBRZw Mmx3DQYaVZSbZ56txluxHW N3yJ4jp1vwo5PfKBvvBHO6 VBPqq30aNZvprbE9RWebEg 46GEaoKAD8XTtsJAD5qP== COMMENT (test code = l3pqhYEhTHTouNFfSSYfDV 2489) zgqkQhVTKhqWXiA2Ozilgx KRvrUD9iIP5qvSbmtQBoyZ DxMHFiMlZwb2xon072zEMi b6cjBDQZygvunZr9qDuwZ3 6wp9X6FojcX66fyBDqIKJ7 CZFyWCRazSQcWIEkYKR6EL StwSBhI8lqGVMhVD7ltaph ZMoyUFjxBWRefED9ZVCzqP MaN5FzTWWrKBhhUUZsstv7 EfVbBy6puXTwvXblYXbqJS TvTEUwBIjrUEViVnEaBn5m AUWcbiAzAAvfXZ3trB0dtP 9hf3RojD5zSx9rCQYXLoJ4 nNjbUPBqANSsoD1qeAWvOD luIGFuIGFkZGVuZHVtLiAg JBUdINIjtgQgX42kR0Ywqb I6eZRdXSNuFCOkAf86PJAy mLEdiw5dwDDlSCEnhi5= CPT Code(s) (test code i0pxbAMtWYPbxGWzRBZtUV = 3357) xmjpHlSEBesQEuT1Izvowe CDxtGW9aLL1ydDdwrYQasK GlDFEpEtGow0wrz410eJWc j3jzTIBLkyoinAa1kVfuJ2 0jm3P3RtxgK08jpNTkWPQ9 BVFnFUGfkHAbVDRtULS0BP QbaQRtI1voOTRhWA9zxikm PBsoUBysUAZxhRO7JSOxlD VlV2JvPJGjOKahPTGfkkc3 NqQfAb2gyRPuvVjiWHquIJ JkXHBsYWluXGZzMjAgODgz BTOvzBBeHIN1TOL3AhsaAF J9 CLINICAL HISTORY (test d5fxxEWhELQjaPOaNNNgGR code = 3356) xraqVwLFAtvFVyS8Vitcuy WJomXI4lEK3wtYkhfTNeuD AdQAOaHbYbo4tks165bAIk u6olFXSOsrpwyBf8oMtfS1 5mo5E3HxrpQ43ezSBjUZX2 MOSaAWKkcQEaIJAkSAQ3VS PvaUGpE1xbSKAsWH5qjusm BMwgVZnnHNPtiFC9WPOvyY WfL9WaPOMpSIbhJSXpsgt4 KoYtIl7sdVHooSwxNAxqHW JkXHBsYWluXGZzMjAgSXJv jjFrHMTqM6inquM9BAWpMY 3iQR0wjQDzpU== GROSS DESCRIPTION (test c0cqsNQjDNXkcOVFPMOxPE code = [id number]) YeFZ1fvRktkVs4jMhrWXPo ylH9zMOtZEfke6qaJPP1d7 riukHQXpcbDHAeHT3sHEki NVBgNC9dZsTbUOYvLuMyRN BhcGVydzEyMjQwXHBhcGVy qOH8QIPgHN7pylxvQAvfWO ixKPSbcmW8FHHclLBfZ6Qe ILRpBM4grizlHON1EOEWPe qbEw6uhXTprQlmBpEcLiVn YXJzZXQwXGZuaWwgQXJpYW g1yG2IJxttS23ur4I0Cwt6 YOSxDMBvB6ZeZS9kPKDaxS GrP94VYrmlGML2AKHAUqjq ZhgauCloq9MgdDRwTZNgIG xcaWQgNTEwMDAgXFxkYiBP HgKiZbK8DcY9IPg4WnT1LW s0DLBCRNDiNQD1UGVgXKY4 RYi7UEJbUU3yVQjkeKBbWN pzHoluBRlvH105MUriUESr B2ExJ0QsFSbzUhObIUmdMM RrTLTvXUqxNARtC7GTFZMm CRM6YOT6RFCtHFk0WQjyA3 VZTQShJYL5ZEzyVtj5HhT4 GIu1CKPALw6cCxZ8XaX2LY EoYLS4VKQbMHhfnGEsFMoy l9PvJrJaGQPlWNjxmjT5LF DbcyQcKTpykUciyD3rRzHf MiBBLiBMYXJnZSBJbnRlc3 UgjhEiOHFjsP5mHF2lDoqo wOZwBBXpFM4epF6eOXUuqw ZZYpyjTSQnYK9DVVYaNPna JYJwEyItvGLuN3apXJNdE5 9pv5DIi0RyLY5ZXZa3aaBn osxkpI0nCJWysvSwMXexT9 EiBLJvMcFnQvZhLEd7XBIm mV9bZg4alHIwoH0rgJZrHP jpWCL1gYKzJSGxDABhDPTb FP09WQdQLWJldaEpNVqekT VkaWNhbCByZWNvcmQgbnVt YmVyIGFuZCBcdTgyMjAgXC k1J6ImG7PsVTyoKcDmw5ej gwHtKRQeGM40nIPxeOjlIW Gddu57DYgrm2faxL1okKKk REOlJEGcg1W5ZHOiy2G2NM QlquAzfIMmsEQpvrVzA2sr ExCduvPtgEjwAZSce63gQW 4bLPCxFSFsDlIbiZvxb4cw B8ugGBMiLYL4Kv4zbJCnED DhozY9m9XzFCelDABvYicg YRQoZHumrWUiNU0MKNAkVu RaUZGlW2ogENMcDK6XORKi FMwcjyYxUX8JRRMzjMPJEO Y2QL8kHZcfTHQsX6LwV1Hg zbC3OOFgkjALWfaqNohtoE njz8DbcHQjNUObWRujdHPd NTEwMDIgXFxkYiBPVlIgIi H1NvK9MHt4YvJ5CDc2YGWM HwXfJdDpJhAfBZA3KENmOM m5APq2SXhFLeI5FankVGV8 EHumQME3HrUoXVz5UQCvGP igzwRrLMeeYkueUAfwV10p cGFyZFxzYjEwNVxlcGljWH UxZDY0EJ2SSi8zMWFjR0Wa EG51KKM0kW7oCIIZl1mcfu HpRHazPjMhQEHlI5PlKZmn W2suFRNdIJbafGSlDHIKSs xwbGFpblxsdHJjaFxmczIy ISPwsHQJPNB4HH8rGWHIKr uozQMkJPDefBcxZWtzcB6s SIDyYfSqGUEuU3yuSxWqJD 0QJVGtDJjlypYgQRPyL3Wk jxYcGIhkJCNpgj7kxCouXI apPzHnYHEdh5p0rDO6zQXg rBQ8hKXlaRweVvOxCF5wtW ByOW6sJJtnQAtouuVcq2En JL61bNItuzYutdCbPSH9Ci FsRMvnWZCnBZTjNU2gkW5y HVGquM3vFdIdzmTuFWY3GR 9bvKGplE72MTRvHFYjfh8m YYPtv26ohJG9nKMjhCCrKx PwB20srlNpPGTerbggunos eS1ht5j8LXCnbr6rJIBdOy E2emTvGkDtG29gPFhfpDLv WYIoHWJgfZGnwQF5NYNdwH 8jaW40dwUtwqBZXD7plDSs ED5ZTATxZUwdgSogNVDnZF CYPkohVNShPEnVISVsnK5x ZwXye7HwgUYuIQ6SYMHnut ZFZhptDPYvOEPfsBRVc2Rb MCANClxjZjBcZnMyMiANCl fsyAnlDsHbeTQyLrP7EVRm cRNbTVB7CD7usNooYJQuS5 RzM6EqceS2NWFwqgXOGsae DFNsDO4OkC== MICROSCOPIC DESCRIPTION b2ltqIJjRAVfcZHdTMAaWZ (test code = 3371) zyusVwOVHbtHSbF5Wkrulq OVtwTG4mGX9qcDlngJKwhG JeXFCtPxVuc7ypu673dMBh i7cyFPACtizctVb1iGskR8 1ky5U5DezwA21kaHYaTLO6 JSRpRGXvmWSeNMVyDKC2DC UzqSChZ9taMQBkUO0gkvfs IIalPZchOTHifSJ9FBBriJ ZsZ7HjEKCjOSwdLOBbtzg6 JnTyXv2jnAUlrMezRZqrXK JkXHBsYWluXGZzMjAgUGVy Ge6kmYLfTjKyLXLsgz1= SPECIAL STUDIES (test y3dzmDCkRLCkb3tuUQVdbT code = 3376) FuZzEwMzNcZnRuYmpcdWMx GRvsgmTqJDygh4PzG3OqCw AwMFxhbnNpXGRlZmxhbmcx HPAkBQN0amHmANMkWXkuZR TaEBibKm4naLXitEquLzTc ZCCwm0kdftKPnzfumOc4k5 fiBCGbPkN4dPEuLLscW7jw lrFijDMmR7HlhNVmsSj1d4 ioOjRvTvO6yYEuIHcvT8kd cmSdfPEtNGHwXAh9oF73BK MpeW4pkSWqGFqhjeOrIiJ1 MMbsSTGxYvH1AAXsqAHzLN IcY9lxJHYlFHseGSXzBQcp tZRkBEX8zAnnb2B4kLOirE XdlLarAsPuHmFlKfSCt1Vz PIl2sHsxW3JaSNDkYzO8jR QgUGFyYWdyYXBoIEZvbnQ7 kHqlokMke43reQAiZLVrXS XpHqDlkVddWKVfYDMOc5Zy pQfuPVN0rOm9zHjcGjllTG X8Zbm8MR2jky07grl8pLcm VDLrnkxiZyX9ZCqmYZLiru nqRXu3DGhuFOEdrUI2PELp cEGlE8VuBTKoQI1vtpg6SX O5DTxaPXHhNzT6PJVzmICc IFOtfJbeIPfub106BSS5Go CtYZ6jS2Vbm5Z3tR1qiBCp UVNhbFNlEoLqUDXpur3zaF MsMVbbi2JyAQG5xvK1gCPt fJYrKOYgWZ57Rxlfv9QlJo xnx7UcQ44tnFV0DLpsb7su GS1aLoS6fwAiJJrbh9mtrL 7vCdT3ANyhWG7nBJ6jQDXn eY3jeobaZYRdNxTkpjqgTP MweRlttsKuGg4ciNteIEO5 MNzjV1qwyK5gYbX3ZTneG9 kemP3xIRy0EGblgDH8QXWj aD5xRO4zpsvbb0wbWZtyWG rpISHfbaX5lnL0RKDmrFJb E7SoxQ7mVJSiLK0dqnfrg3 qoNEK1YOqtERPzCFY1TtZe KAGva4Khrka2AzRpo8RhhN TiFSpdW87rm697OHGnvfWn J3hufQNxsxpflYFrapzmME rfzmG0YUWmZZXbPKtqHVTp XGZzMjJcbGFuZzEwMzNcaG ljaFxmMVxkYmNoXGYxXGxv E4lzCaAlT4WjTONsFdXcBO fnRUwteVYzwJVeiHP3nA0w YI1xLFOtrBWxU8CdPQUeko PmbCDxDJW2dFRejIEvYM6g QNtbaOYic6xdp3QgS7vzoJ opvGD1VW1fNMOdXUCsCLcq a0MpfW3xXguoiNBnpghpLB xmczIyXGxhbmcxMDMzXGhp S1hyNjYfYYUunEgnQKhim3 NoXGYxXGNmMlxmczIyXGx0 cmNoXHBhclxwYXJccGxhaW 5bUjIySkKeItnnFP4lXUBd C0zjyIVvBIYlAKDgO9oeTg HgxN8eaTopKPyzDzQdFgFo WsFBw509xc2pGWUmqLClny GMcJEkjH1zNXdzZBqlZOrb eHPuVLfyy5tiKUFpu9a7oM PlGPYdaoArq3ojFJtidsXi DAGjyIJzgTUvEYMnm80wFG dghYywgLpoZFJsw8GthWik e8CkNoFqKUqrw1XbU38xaD JvbCBzbGlkZXMgcnVuIGFs m17ls3wqTCOkXxB0pQSiqB G1sFPvyUIgn3MgiHgrIMPc w5wqGLUseb2xypzlkQBhg1 SmoO7vgajyZCctrIAmziAc HASxl7b2hYAaZHYvNHYwEE spdLc4BWUeh800il1clpC7 qZRrYWJ8XIgcZSGhFNUfjf UgZXZhbHVhdGVkXHBsYWlu XGYxXGZzMjJcbGFuZzEwMz NcaGljaFxmMVxkYmNoXGYx PMxxS6peGfMjI8LwTIOjOt CncBXlC7finJKiWKJiZTkf XGYxXGZzMjJcbGFuZzEwMz NcaGljaFxmMVxkYmNoXGYx CIkrY8faSpHvU2VuHFRdRc IgIFxwbGFpblxmMVxmczIy BYvvxuauDNWfTGuxE5fyLy EtRGIjwMxxASjtd7ZrVDYb MRXfUdrejvYgZYs6nsNgVJ BhclxwbGFpblxmMVxmczIy OYnscabzWJSxPCqcT9ugTj GuPOJfxRqcXUvxf2CmEWWf XGNmMlxmczIyIEltbXVub2 axa9HjS9vakVysqIY9TERb A3ungGXjeHV2RVW9xG2dYX rjuaKuVYXxa6DaZHYzXIMi YbR7zB0lPZN7ZkUQdEbqVH BsYWluXGYxXGZzMjJcbGFu ZzEwMzNcaGljaFxmMVxkYm UvGUUfVRukQ2cvFbDmH1Hs EBUhKfFzbUudNYgqSLp5Oo xwbGFpblxmMVxmczIyXGxh jukoZIHlHEwnE2xsVgHcIX TblPceWKatu3PsQQHtUIXz MlxmczIyIHMgTWVkaWNhbC ACRF08GHCkKSRpoThppT6f fZERDZJgpuG7i2T1MPeaKC YfSAb8TZrhsaRtIAQfrP5y MBWoOZ0iMOe4dpBvAZYpk9 ZwBA1aEICsaMLhNLY5ANRw d7HeP0Yqg0SlFNXbLRNbie 3cazQeUqTToSSdFSQqoa13 PURgSH5eV9inMTYaOMLtql CyyICot8ZbRURhyKK6cJFc LE4OCuKIb45uJAIjXUBLii GxYAJskEngcZQ3hyJ0yA4h LiBUaGUgRkRBIGhhcyBkZX Lbcx7wzhOmAOHfYTArd1Ld bTLonEYtcxKuB2Mmu4RpCY Vmbn53ABpinRSyin35UV1o R6Myk9YfnE8sFRcaXRKiz8 TsyOTqoACeOTWir5HxZ9hf wqlqTRyxfEUgbX1wHQIvZK k7VMWuz6JwHCXcr8UcSsCm fnDfCWUeGUMdIOXzbV88XE G1lVjzoUuzwiTjNW5jPUQb gcRvNPYtWSTmvZ4yFInipj TeWGXtqaZ2g2P0GYfjBIJg mlOrLsbqIGV8lrNynzT6xD HeQ3ojsbogZOlgXTXmn6Qz cV7ocBKUyYMqo2YxmPCwmB ZZmFIeDU4rxmLjNS1yQNO1 ODggKENMSUEtODgpIGFzIH P3KNrgXzaeGHR5xrTnPIOt f1AmARttJ9woQ95riAiczS w5xQQrvQetxZRfeXXgAHOq obM9l7M0JNUgt6MrffahQL BsYWluXGYyXGZzMjJcbGFu ZzEwMzNcaGljaFxmMlxkYm HkLBAbCRbmY3mbMaNgWxUf TzatFUM9cT== [facility] [id number] 17:43:45 Test Item Value Reference Range Interpretation Comments POC-GLUCOSE METER 113 mg/dL 70-110 H : TESTED A T [facility] 6720 (BEAKER) (test code = [facility], 153) [address]: [employer]Techni tawana ID = [id number] for BRONSON DIMAS, JAYSON HEMOGLOBIN AND [id number] 16:46:11 Test Item Value Reference Range Interpretation Comments HEMOGLOBIN (BEAKER) (test code = 8.9 GM/DL 11.2-15.7 L 410) HEMATOCRIT (BEAKER) (test code = 28.5 % 34.1-44.9 L 411) [employer] ID - [id number]-GLUCOSE [id number] 12:20:52 Test Item Value Reference Range Interpretation Comments POC-GLUCOSE METER 116 mg/dL 70-110 H : TESTED A T [facility] 6720 (BEAKER) (test code = [facility], 153) [address]: [employer]Techni tawana ID = [id number] for BRONSON DIMAS, JAYSON POCT-GLUCOSE [id number] 08:09:50 Test Item Value Reference Range Interpretation Comments POC-GLUCOSE METER 100 mg/dL 70-110 : TESTED A T [facility] 6720 (BEAKER) (test code = [facility], 153) [address]: [employer]/Techni tawana ID = [id number] for BRONSON DIMAS, JAYSON POC-Glucose [id number] 05:45:09 Test Item Value Reference Range Interpretation Comments POC-Glucose Meter (test 122 mg/dL 70-110 H : TE STED AT [facility] code = 1538) [address] [place], [address]: [employer]/Techni tawana ID = [id number] for MELANY SAMPSON Lab Interpretation (test Abnormal code = 94838-7) [facility] [id number] 05:45:09 Test Item Value Reference Range Interpretation Comments POC-GLUCOSE METER 122 mg/dL 70-110 H : TESTED A T [facility] 6720 (BEAKER) (test code = RADHA Riddle [facility], 1538) [address]: [employer]/Techni tawana ID = [id number] for MELANY GONZALEZ RA BASIC METABOLIC [id number] 05:34:05 Test Item Value Reference Range Interpretation Comments SODIUM (BEAKER) 135 meq/L 136-145 L (test code = 381) POTASSIUM 3.8 meq/L 3.5-5.1 (BEAKER) (test code = 379) CHLORIDE (BEAKER) 106 meq/L 98-107 (test code = 382) CO2 (BEAKER) 21 meq/L 22-29 L (test code = 355) BLOOD UREA 62 mg/dL 7-21 H NITROGEN (BEAKER) (test code = 354) CREATININE 1.88 mg/dL 0.57-1.25 H (BEAKER) (test code = 358) GLUCOSE RANDOM 120 mg/dL 70-105 H (BEAKER) (test code = 652) CALCIUM (BEAKER) 9.0 mg/dL 8.4-10.2 (test code = 697) EGFR (BEAKER) 28 Interpretatio n of eGFR (test code = mL/min/1.73 values Stage De scription 1092) sq m Result G1 Mckayla l or high >=90 G2 Mildly decreased 60-89 G3a Mildl y to moderately 45-5 9 G3b Moderately to s everely 30-44 G4 Severl y decreased 15-29 G5 Kidney failure <15Reported eGF R is based on the CKD-EPI 2020 equation that d oes not use a race coefficientEsti mated GFR is not as accur ate as Creatinine Sera chao in predicting glom erular filtration rate . Estimated GFR is not appl icable for dialysis patien ts [employer] ID - [id number] 05:30:24 Test Item Value Reference Range Interpretation Comments MAGNESIUM (BEAKER) (test code = 2.1 mg/dL 1.6-2.6 627) [employer] ID - MMCBC (HEMOGRAM ONLY)2022-08-25 05:12:35 Test Item Value Reference Range Interpretation Comments WHITE BLOOD CELL COUNT (BEAKER) 8.7 K/ L 3.5-10.5 (test code = 775) RED BLOOD CELL COUNT (BEAKER) 3.35 M/ L 3.93-5.22 L (test code = 761) HEMOGLOBIN (BEAKER) (test code = 9.0 GM/DL 11.2-15.7 L 410) HEMATOCRIT (BEAKER) (test code = 28.9 % 34.1-44.9 L 411) MEAN CORPUSCULAR VOLUME (BEAKER) 86 fL 79-95 (test code = 753) MEAN CORPUSCULAR HEMOGLOBIN 26.9 pg 25.6-32.2 (BEAKER) (test code = 751) MEAN CORPUSCULAR HEMOGLOBIN CONC 31.1 GM/DL 32.2-35.5 L (BEAKER) (test code = 752) RED CELL DISTRIBUTION WIDTH 16.6 % 11.7-14.4 H (BEAKER) (test code = 412) PLATELET COUNT (BEAKER) (test 208 K/CU MM 150-450 code = 756) MEAN PLATELET VOLUME (BEAKER) 10.8 fL 9.4-12.3 (test code = 754) NUCLEATED RED BLOOD CELLS 1 /100 WBC 0-0 H (BEAKER) (test code = 413) HEMOGLOBIN AND [id number] 23:56:56 Test Item Value Reference Range Interpretation Comments HEMOGLOBIN (BEAKER) (test code = 9.3 GM/DL 11.2-15.7 L 410) HEMATOCRIT (BEAKER) (test code = 29.5 % 34.1-44.9 L 411) POCT-GLUCOSE [id number] 21:26:13 Test Item Value Reference Range Interpretation Comments POC-GLUCOSE METER 120 mg/dL 70-110 H : TESTED A T [facility] 6720 (BEAKER) (test code = RADHA JUAREZ, 1538) [address]: Rouge Mixer/Techni tawana ID = [id number] for MELANY GONZALEZ RA POCT-GLUCOSE [id number] 17:54:05 Test Item Value Reference Range Interpretation Comments POC-GLUCOSE METER 104 mg/dL 70-110 : TESTED A T [facility] 6720 (BEAKER) (test code = [facility], 1538) [address]: Rouge Mixer/Techni tawana ID = [id number] for Pricila Luciano Prepare Leuko-Red [id number] 14:40:00 Test Item Value Reference Range Interpretation Comments CROSSMATCH (test code = 2264) COMPATIBLE Unit ABO (test code = B Pos 2214832) UNIT NUMBER (test code = [id number] 934-0) Status (test code = 8879083) ISSUED Blood Bank Product (test code RED BLOOD CELLS = 2263) PRODUCT CODE (test code = Q2124W63 933-2) [facility] [id number] 14:35:29 Test Item Value Reference Range Interpretation Comments POC-GLUCOSE METER 109 mg/dL 70-110 : TESTED A T [facility] 6720 (BEAKER) (test code = [facility], 1538) [address]: Rouge Mixer/Techni tawana ID = [id number] for Shantelle Wayne BASIC METABOLIC [id number] 06:02:00 Test Item Value Reference Range Interpretation Comments SODIUM (BEAKER) 135 meq/L 136-145 L (test code = 381) POTASSIUM 3.8 meq/L 3.5-5.1 (BEAKER) (test code = 379) CHLORIDE (BEAKER) 105 meq/L 98-107 (test code = 382) CO2 (BEAKER) 22 meq/L 22-29 (test code = 355) BLOOD UREA 69 mg/dL 7-21 H NITROGEN (BEAKER) (test code = 354) CREATININE 1.75 mg/dL 0.57-1.25 H (BEAKER) (test code = 358) GLUCOSE RANDOM 111 mg/dL 70-105 H (BEAKER) (test code = 652) CALCIUM (BEAKER) 8.6 mg/dL 8.4-10.2 (test code = 697) EGFR (BEAKER) 31 Interpretatio n of eGFR (test code = mL/min/1.73 values Stage De scription 1092) sq m Result G1 Mckayla l or high >=90 G2 Mildly decreased 60-89 G3a Mildl y to moderately 45-5 9 G3b Moderately to s everely 30-44 G4 Severl y decreased 15-29 G5 Kidney failure <15Reported eGF R is based on the CKD-EPI 2020 equation that d oes not use a race coefficientEsti mated GFR is not as accur ate as Creatinine Sera chao in predicting glom erular filtration rate . Estimated GFR is not appl icable for dialysis patien ts [employer] ID - [id number] 06:02:00 Test Item Value Reference Range Interpretation Comments MAGNESIUM (BEAKER) (test code = 2.1 mg/dL 1.6-2.6 627) [employer] ID - ADMINCBC (HEMOGRAM ONLY)2022-08-24 05:20:09 Test Item Value Reference Range Interpretation Comments WHITE BLOOD CELL COUNT (BEAKER) 8.6 K/ L 3.5-10.5 (test code = 775) RED BLOOD CELL COUNT (BEAKER) 2.64 M/ L 3.93-5.22 L (test code = 761) HEMOGLOBIN (BEAKER) (test code = 7.1 GM/DL 11.2-15.7 L 410) HEMATOCRIT (BEAKER) (test code = 23.2 % 34.1-44.9 L 411) MEAN CORPUSCULAR VOLUME (BEAKER) 88 fL 79-95 (test code = 753) MEAN CORPUSCULAR HEMOGLOBIN 26.9 pg 25.6-32.2 (BEAKER) (test code = 751) MEAN CORPUSCULAR HEMOGLOBIN CONC 30.6 GM/DL 32.2-35.5 L (BEAKER) (test code = 752) RED CELL DISTRIBUTION WIDTH 16.8 % 11.7-14.4 H (BEAKER) (test code = 412) PLATELET COUNT (BEAKER) (test 183 K/CU MM 150-450 code = 756) MEAN PLATELET VOLUME (BEAKER) 10.6 fL 9.4-12.3 (test code = 754) NUCLEATED RED BLOOD CELLS 1 /100 WBC 0-0 H (BEAKER) (test code = 413) POCT-GLUCOSE [id number] 01:22:06 Test Item Value Reference Range Interpretation Comments POC-GLUCOSE METER 119 mg/dL 70-110 H : [facility] (BEAKER) (test code = [facility], 1538) [address]: Rouge Mixer/Techni tawana ID = [id number] for Melanie Hernandez POCT-GLUCOSE [id number] 22:05:44 Test Item Value Reference Range Interpretation Comments POC-GLUCOSE METER 154 mg/dL 70-110 H : TESTED A T [facility] 6720 (BEAKER) (test code = [facility], 1538) [address]: Rouge Mixer/Techni tawana ID = [id number] for Melanie Hernandez HEMOGLOBIN AND [id number] 20:47:52 Test Item Value Reference Range Interpretation Comments HEMOGLOBIN (BEAKER) (test code = 7.6 GM/DL 11.2-15.7 L 410) HEMATOCRIT (BEAKER) (test code = 24.5 % 34.1-44.9 L 411) [employer] ID - [id number]-GLUCOSE [id number] 17:49:02 Test Item Value Reference Range Interpretation Comments POC-GLUCOSE METER 192 mg/dL 70-110 H : [facility] (BEAKER) (test code = [facility], 153) [address]: Rouge Mixer/Techni tawana ID = [id number] for Stacy Jones Limited 2D [id number] 12:26:41Ejection FractionSLEH ECHO [facility]LAB [facility] [id number] 12:26:41Ejection FractionSLEH ECHO HEARTLAB MK[facility] [id number] 12:26:41Ejection FractionSLEH ECHO HEARTLAB MKCK[facility] Echocardiogram 2022-08-23 12:26:41Ejection FractionSLEH ECHO HEARTLAB MKCKESSON [facility]ucose [id number] 11:41:41 Test Item Value Reference Range Interpretation Comments POC-Glucose Meter (test 161 mg/dL 70-110 H : TE STED AT [facility] code = 1538) 67[address] [facility], 770 30: Rouge Mixer/Techni tawana ID = [id number] for LATHA HOANG Lab Interpretation (test Abnormal code = 26299-1) [facility] [id number] 11:41:41 Test Item Value Reference Range Interpretation Comments POC-GLUCOSE METER 161 mg/dL 70-110 H : TESTED A T [facility] 6720 (BEAKER) (test code = RADHA Riddle [place], 1538) [address]: Rouge Mixer/Techni tawana ID = [id number] for LATHA CHOW HEMOGLOBIN AND [id number] 08:22:50 Test Item Value Reference Range Interpretation Comments HEMOGLOBIN (BEAKER) (test code = 8.4 GM/DL 11.2-15.7 L 410) HEMATOCRIT (BEAKER) (test code = 26.3 % 34.1-44.9 L 411) [employer] Mixer ID - [id number]-GLUCOSE [id number] 07:17:28 Test Item Value Reference Range Interpretation Comments POC-GLUCOSE METER 111 mg/dL 70-110 H : TESTED A T [facility] 6720 (BEAKER) (test code = [facility], 1538) [address]: Rouge Mixer/Techni tawana ID = [id number] for MS LISA HOWARD BASIC METABOLIC [id number] 05:47:05 Test Item Value Reference Range Interpretation Comments SODIUM (BEAKER) 133 meq/L 136-145 L (test code = 381) POTASSIUM 4.2 meq/L 3.5-5.1 (BEAKER) (test code = 379) CHLORIDE (BEAKER) 105 meq/L 98-107 (test code = 382) CO2 (BEAKER) 19 meq/L 22-29 L (test code = 355) BLOOD UREA 80 mg/dL 7-21 H NITROGEN (BEAKER) (test code = 354) CREATININE 1.87 mg/dL 0.57-1.25 H (BEAKER) (test code = 358) GLUCOSE RANDOM 136 mg/dL 70-105 H (BEAKER) (test code = 652) CALCIUM (BEAKER) 8.6 mg/dL 8.4-10.2 (test code = 697) EGFR (BEAKER) 28 Interpretatio n of eGFR (test code = mL/min/1.73 values Stage De scription 1092) sq m Result G1 Mckayla l or high >=90 G2 Mildly decreased 60-89 G3a Mildl y to moderately 45-5 9 G3b Moderately to s everely 30-44 G4 Severl y decreased 15-29 G5 Kidney failure <15Reported eGF R is based on the CKD-EPI 2020 equation that d oes not use a race coefficientEsti mated GFR is not as accur ate as Creatinine Sera guidry in predicting glom erular filtration rate . Estimated GFR is not appl icable for dialysis patien ts [employer] ID - ADMINCBC (HEMOGRAM ONLY)2022-08-23 04:27:19 Test Item Value Reference Range Interpretation Comments WHITE BLOOD CELL COUNT 7.9 K/ L 3.5-10.5 (BEAKER) (test code = 775) RED BLOOD CELL COUNT 2.68 M/ L 3.93-5.22 L (BEAKER) (test code = 761) HEMOGLOBIN (BEAKER) 7.3 GM/DL 11.2-15.7 L (test code = 410) HEMATOCRIT (BEAKER) 23.3 % 34.1-44.9 L (test code = 411) MEAN CORPUSCULAR 87 fL 79-95 Discordant results VOLUME (BEAKER) (test compar ed to previous code = 753) results; clinic al correlation req uired MEAN CORPUSCULAR 27.2 pg 25.6-32.2 HEMOGLOBIN (BEAKER) (test code = 751) MEAN CORPUSCULAR 31.3 GM/DL 32.2-35.5 L HEMOGLOBIN CONC (BEAKER) (test code = 752) RED CELL DISTRIBUTION 16.3 % 11.7-14.4 H WIDTH (BEAKER) (test code = 412) PLATELET COUNT 186 K/CU MM 150-450 (BEAKER) (test code = 756) MEAN PLATELET VOLUME 11.1 fL 9.4-12.3 (BEAKER) (test code = 754) NUCLEATED RED BLOOD 0 /100 WBC 0-0 CELLS (BEAKER) (test code = 413) Prepare Leuko-Red [id number] 23:23:00 Test Item Value Reference Range Interpretation Comments CROSSMATCH (test code = 2264) COMPATIBLE Unit ABO (test code = B Neg [id number]) UNIT NUMBER (test code = [id number] 934-0) Status (test code = 6301809) ISSUED Blood Bank Product (test code RED BLOOD CELLS = 2263) PRODUCT CODE (test code = V6694F66 933-2) [facility] AND [id number] 23:02:21 Test Item Value Reference Range Interpretation Comments HEMOGLOBIN (BEAKER) (test code = 6.5 GM/DL 11.2-15.7 L 410) HEMATOCRIT (BEAKER) (test code = 21.0 % 34.1-44.9 L 411) [employer] ID - [id number]-GLUCOSE [id number] 22:58:38 Test Item Value Reference Range Interpretation Comments POC-GLUCOSE METER 195 mg/dL 70-110 H : TESTED A T [facility] 6720 (BEAKER) (test code [facility], = 1538) [address]: [employer]/Techni tawana ID = [id number] for Kae maciasrJessica PERIPHERAL BLOOD SMEAR - PATHOLOGIST [id number] 17:42:41 Test Item Value Reference Range Interpretation Comments RBC MORPHOLOGY Hypochromasia (BEAKER) (test code = 2846) RBC MORPHOLOGY Anisocytosis (BEAKER) (test code = 46397) RBC MORPHOLOGY Polychromasia (BEAKER) (test code = 23054) RBC MORPHOLOGY Dual Population (BEAKER) (test code = 881363) WBC MORPHOLOGY Reactive Lymphocytes (BEAKER) (test code = 2847) PLT MORPHOLOGY No Clumping (BEAKER) (test code = 2848) PLT MORPHOLOGY No Satellitosis (BEAKER) (test code = 609143) [id number] Ky Clements MD (BEAKER) (test code = (electronic signature) 2492) Peripheral blood smears are received for anemia evaluation. Dimorphic population. There is marked hypochromic anemia with moderate anisopoikilocytosis. Increased polychromatia is noted. No significant increase in schistocytes is seen. The second population likely secondary to recent transfusion. Correlation with patient's history is recommenced.POCT-GLUCOSE [id number] 11:55:01 Test Item Value Reference Range Interpretation Comments POC-GLUCOSE METER 128 mg/dL 70-110 H : Notified RN/MD: (BEAKER) (test code = TESTED AT [facility] 6720 1538) [facility], [address]: [employer]er/Techni tawana ID = [id number] for Vinicio Tse HEMOGLOBIN AND [id number] 10:02:41 Test Item Value Reference Range Interpretation Comments HEMOGLOBIN (BEAKER) (test code = 6.4 GM/DL 11.2-15.7 L 410) HEMATOCRIT (BEAKER) (test code = 20.9 % 34.1-44.9 L 411) [employer] ID - [id number] 08:55:25 Test Item Value Reference Range Interpretation Comments FERRITIN (BEAKER) (test code = 42.30 ng/mL 5.00-275.00 361) POCT-GLUCOSE [id number] 06:32:51 Test Item Value Reference Range Interpretation Comments POC-GLUCOSE METER 136 mg/dL 70-110 H : TESTED A T [facility] 6720 (BEAKER) (test code [facility], = 1538) [address]: [employer]er/Techni tawana ID = [id number] for Jessica Lawson BASIC METABOLIC [id number] 01:46:51 Test Item Value Reference Range Interpretation Comments SODIUM (BEAKER) 130 meq/L 136-145 L (test code = 381) POTASSIUM 4.4 meq/L 3.5-5.1 Specimen slight ly (BEAKER) (test hemolyzed code = 379) CHLORIDE (BEAKER) 102 meq/L 98-107 (test code = 382) CO2 (BEAKER) 19 meq/L 22-29 L (test code = 355) BLOOD UREA 83 mg/dL 7-21 H NITROGEN (BEAKER) (test code = 354) CREATININE 2.30 mg/dL 0.57-1.25 H Specimen slight ly (BEAKER) (test hemolyzed code = 358) GLUCOSE RANDOM 153 mg/dL 70-105 H (BEAKER) (test code = 652) CALCIUM (BEAKER) 8.1 mg/dL 8.4-10.2 L (test code = 697) EGFR (BEAKER) 22 Interpretatio n of eGFR (test code = mL/min/1.73 values Stage De scription 1092) sq m Result G1 Mckayla l or high >=90 G2 Mildly decreased 60-89 G3a Mildl y to moderately 45-5 9 G3b Moderately to s everely 30-44 G4 Severl y decreased 15-29 G5 Kidney failure <15Reported eGF R is based on the CKD-EPI 2020 equation that d oes not use a race coefficientEsti mated GFR is not as accur ate as Creatinine Sera guidry in predicting glom erular filtration rate . Estimated GFR is not appl icable for dialysis patien ts [employer] ID - [id number] 01:41:30 Test Item Value Reference Range Interpretation Comments HAPTOGLOBIN (BEAKER) (test code = 175 mg/dL 14-258 366) [employer] ID - BSIRON, TIBC, % SAT. (WITHOUT FERRITIN)2022-08-22 01:41:30 Test Item Value Reference Range Interpretation Comments IRON (BEAKER) (test code = 547) 24.0 ug/dL 40.0-160.0 L TOTAL IRON BINDING CAPACITY 321 ug/dL 250-450 (BEAKER) (test code = 769) IRON % SATURATION (2) (BEAKER) 7 % 20-55 L (test code = 2590) [employer] ID - BSRETICULOCYTE [id number] 01:26:25 Test Item Value Reference Range Interpretation Comments RETICULOCYTE COUNT PCT (BEAKER) (test 7.8 % 0.5-1.7 H code = 575) [employer] ID - [id number] ID - [id number] DEHYDROGENASE (LDH)2022-08-22 01:20:15 Test Item Value Reference Range Interpretation Comments LACTATE DEHYDROGENASE (BEAKER) (test 255 U/L 125-220 H code = 635) [employer] ID - BSB-TYPE NATRIURETIC FACTOR (BNP)2022-08-21 23:58:02 Test Item Value Reference Range Interpretation Comments B-TYPE NATRIURETIC PEPTIDE (BEAKER) 299 pg/mL 0-100 H (test code = 700) [employer] ID - BSCBC W/PLT COUNT & AUTO [id number] 20:06:23 Test Item Value Reference Range Interpretation Comments WHITE BLOOD CELL COUNT (BEAKER) 7.1 K/ L 3.5-10.5 (test code = 775) RED BLOOD CELL COUNT (BEAKER) 1.63 M/ L 3.93-5.22 L (test code = 761) HEMOGLOBIN (BEAKER) (test code = 4.0 GM/DL 11.2-15.7 LL 410) HEMATOCRIT (BEAKER) (test code = 14.9 % 34.1-44.9 L 411) MEAN CORPUSCULAR VOLUME (BEAKER) 91 fL 79-95 (test code = 753) MEAN CORPUSCULAR HEMOGLOBIN 24.5 pg 25.6-32.2 L (BEAKER) (test code = 751) MEAN CORPUSCULAR HEMOGLOBIN CONC 26.8 GM/DL 32.2-35.5 L (BEAKER) (test code = 752) RED CELL DISTRIBUTION WIDTH 18.4 % 11.7-14.4 H (BEAKER) (test code = 412) PLATELET COUNT (BEAKER) (test 218 K/CU MM 150-450 code = 756) MEAN PLATELET VOLUME (BEAKER) 11.8 fL 9.4-12.3 (test code = 754) NUCLEATED RED BLOOD CELLS 0 /100 WBC 0-0 (BEAKER) (test code = 413) NEUTROPHILS RELATIVE PERCENT 64 % (BEAKER) (test code = 429) LYMPHOCYTES RELATIVE PERCENT 24 % (BEAKER) (test code = 430) MONOCYTES RELATIVE PERCENT 10 % (BEAKER) (test code = 431) EOSINOPHILS RELATIVE PERCENT 3 % (BEAKER) (test code = 432) BASOPHILS RELATIVE PERCENT 0 % (BEAKER) (test code = 437) NEUTROPHILS ABSOLUTE COUNT 4.54 K/ L 1.56-6.13 (BEAKER) (test code = 670) LYMPHOCYTES ABSOLUTE COUNT 1.68 K/ L 1.18-3.74 (BEAKER) (test code = 414) MONOCYTES ABSOLUTE COUNT (BEAKER) 0.69 K/ L 0.24-0.36 H (test code = 415) EOSINOPHILS ABSOLUTE COUNT 0.18 K/ L 0.04-0.36 (BEAKER) (test code = 416) BASOPHILS ABSOLUTE COUNT (BEAKER) 0.02 K/ L 0.01-0.08 (test code = 417) IMMATURE GRANULOCYTES-RELATIVE 0.40 % 0.00-1.00 PERCENT (BEAKER) (test code = 2801) COMPREHENSIVE METABOLIC [id number] 19:55:36 Test Item Value Reference Range Interpretation Comments TOTAL PROTEIN 6.9 gm/dL 6.0-8.3 (BEAKER) (test code = 770) ALBUMIN (BEAKER) 3.2 g/dL 3.5-5.0 L (test code = 1145) ALKALINE 69 U/L 40-150 PHOSPHATASE (BEAKER) (test code = 346) BILIRUBIN TOTAL 0.5 mg/dL 0.2-1.2 (BEAKER) (test code = 377) SODIUM (BEAKER) 136 meq/L 136-145 (test code = 381) POTASSIUM (BEAKER) 3.9 meq/L 3.5-5.1 (test code = 379) CHLORIDE (BEAKER) 103 meq/L 98-107 (test code = 382) CO2 (BEAKER) (test 23 meq/L 22-29 code = 355) BLOOD UREA 81 mg/dL 7-21 H NITROGEN (BEAKER) (test code = 354) CREATININE 2.30 mg/dL 0.57-1.25 H (BEAKER) (test code = 358) GLUCOSE RANDOM 154 mg/dL 70-105 H (BEAKER) (test code = 652) CALCIUM (BEAKER) 8.5 mg/dL 8.4-10.2 (test code = 697) AST (SGOT) 22 U/L 5-34 (BEAKER) (test code = 353) ALT (SGPT) 22 U/L 6-55 (BEAKER) (test code = 347) EGFR (BEAKER) 22 Interpretati on of eGFR (test code = 1092) mL/min/1.[address] age Description sq m Result G1 Mckayla l or high >=90 G2 Mildly decreased 60-89 G3a Mildl y to moderately 45-5 9 G3b Moderately to s everely 30-44 G4 Severl y decreased 15-29 G5 Kidney failure <15Reported eGF R is based on the CKD-EPI 2021 equation that d oes not use a race coefficientEsti mated GFR is not as accur ate as Creatinine Sera chao in predicting glom erular filtration rate . Estimated GFR is not appl icable for dialysis patien ts [employer] ID - ADMINPT/[id number] 19:52:08 Test Item Value Reference Range Interpretation Comments PROTIME (BEAKER) (test code = 21.3 seconds 11.9-14.2 H 759) INR (BEAKER) (test code = 370) 1.90 <=5.90 PARTIAL THROMBOPLASTIN TIME 32.2 seconds 22.5-36.0 (BEAKER) (test code = 760) RECOMMENDED COUMADIN/WARFARIN INR THERAPY RANGESSTANDARD DOSE: 2.0 - 3.0 Includes: PROPHYLAXIS for venous thrombosis, systemic embolization; TREATMENT for venous thrombosis and/or pulmonary embolus.HIGH RISK: Target INR is 2.5-3.5 for patients with mechanical heart valves.Tissue [id number] 12:16:58 Test Item Value Reference Range Interpretation Comments Case Report (test code Surgical Pathology = 104) Report Case: [id number] Authorizing Provider: Jun Montoya, Collected: 07/19/2022 11:18 AM Ordering Location: [facility] Received: 07/20/2022 08:35 AM PERIOPERATIVE SERVICES Pathologist: Tereso Wiggins MD Specimen: BKA L, left BKA DIAGNOSIS (test code = [id number] 3220) uZzEwMzNcZnRuYmpcdWMxIH tccnRmMVxlcGljMTAyMDVcY J7jhCkeiAg4jSboKJVbgeX3 xEXlFVjqr7imSWC4u0dmvsy kVDNvAAbhJa4heVQkjGcjAu PfJCOgDGc2cF41VMLnmU9ff ABsJYk0ZHEjfNJlfyMzFfDr HKKsmITepKL5PKEkZV8fvay pPQopLLgpEVDctvT9DSQjhE QhD1PjYVFrSM2gqcznGUV2H DktMSGtTHB1PaAcMFJta5Ez egj3FcGwsDMmQAqtpNRilpt rbrMxFGHvQXwBZ0JYWXUKWJ JFTUlUWSwgTEVGVCwgQkVMT 2amTVuBSLcIOZAyUE9VJEPY VElPTjpccGFyICAtIFNLSU4 fRQ8ICOHLRjSaHHpFA7OKRB wRTUoqFPnQQAGjEE3MUMaDZ 0oRFEfELAIMYA7PDYNyVPHv ciAgLSBDTElOSUNBTCBISVN JU4ISLT8TEXnEZbWoYQ1UWN IgRVhUUkVNSVRZIEFDVVRFI ExJTUIgSVNDSEVNSUEuXHBh ciAgLSBOTyBERUZJTklURSB VAevMQY0WSVMKQyMUB6UIEL BKQ9QDF18GSOnLCBkZMuqdY DWoWH6gIF9VVPESH4BzMU0G JMMRQ2AQTxgRVtNATWJUVRo gBRCHYACQCDSfJ8gBCSGLG6 RFUkFURSBUTyBTRVZFUkUgQ YBHXYVQX8JLDIZVU8zTVipv ABEnOH7wG9rVEhVKDyRgG25 NOBQPEYDGNPVrCXNHA3rSBq NBJZNOPMCME7WAHLCNOCWNP GeZOxwIBT9NGIpFIcbyZ0XO RVJXSVNFIEFQUEVBUiBWSUF DIXJpITEdnlPpBKCYN09JDH JSI5GVKFjNJnXHUTYMBZ3fI VBQRUFSUyBWSUFCTEUuXHBh ccbyVHW5f3hwsDIjVTHwrXL xODAwMFxhbnNpXGRlZmxhbm ywQSZdCPQ1heBhFYEuZSgtI MKsSHmhMl5fcZSciCbpCcPt FUMbh8mceeILpmaufIh5e7s zEGDtWuL7vYXbSGpaS0brob WukRCeXOAgZDa4tW83FOTmd E9emQTaUNsszlUoYtR2GNkf MNTnItX7EOYswUGoOTVtB3n yZWQwXGdyZWVuMFxibHVlMC S0vOyfe1T3nAKmiKXinMgfI cXtUjBxMcDAe5UpXBb8oXgj G1PhBCYxKuW2gBYrPQUxZHh pDQWfICWpybR3sM70FUqmel L9yRCnv6Emd98uz550yW8xn POqJEO5KPYsJHUbeXRqZNEh FYV5GXAjyLOkU1ejBQPnLV1 qmdvcMXeoANghWDKnhRP4KU SjuSLrC2HxBGNhTKhbNBJcp ye6FhXqXw5oqCSvdChjDSle s5qib4aexJHcZmd1DHEbMaQ pWwtoREhwh1Npe3qfWVYjlq 4fSWN1zSJonImlr3K6cDUdN HOfgZKfQOYgHB6bsUDsWWTn wI7iwlqiORFrNeJiawaoNJX ddSnzeeSlXn0qdIyvKJR0GD rqL4suzQ4mTqG1YJpbI8qog S2qVNz3RTiyGFNeyGK0gfD0 KWBijBFpV7PmoK7fUUZaLB1 bgdl8x7eyBKK5TZafZNQwVe M4hzY0YMRyrOVqQLDpuVdsS Ophn677AWC1FqQeEKEnj6Wd O6ZolWkaS69fmTnlQ48vIPH wzAgraL5nuOjusX0oDjZkPp TkCLyqaRkwUH3dYSRdW3oci HKaEXYkYDLqV7dyAvAkgS2l hYrqYGwgvqQcNKHjSxw2NMR ckZAkANQzYfd4BQVfASYbG0 9gutmhCJL7qU6ty6chl5JnG AbhYTE7AISqy59nRPwdkoO7 ZSwqXq02ZZkfBUT2TQtmYWK 9fQ== CPT Code(s) (test code g4lhoYKsHVGjtHOtSRWgHHq = 3357) fqgZwVFZztAGkI2NjuemoZZ veRQ9dLP6bqMlqeWJkmEXjQ TNuShHot5hxz365nXGsq3ft UEYXpvazpBo3vAfyF79ml0P 3DqblX94itBVbHBH5BFPcOM OcrWNdXTLoQVG8INMosHHzI 0mqQYBhUX6zefobJZdyYCfg OBUguWW0UDWxaXEoL5JjNCK tEPacZDFjmve1SkDkFa4hxY VyeTcyMFxwYXJkXHBsYWluX VEgZjLxGVaaKAzgERr9VbMh IHggNFxwYXJ9 CLINICAL HISTORY (test l5jciIAjQGUcuRIuMLLmHNi code = 3356) zikUuFZTfzSCxI9NtcejbCC ozOK4hQO5ywKboqMAedVMaX KYbIyTsd9etp488rYMnx7ie IUFJKRllJYETIBz3h2fuRMW VcihjqUk8yLgiY25gb2U0Ag rlS88fqZRxSMX4GVSbPLFmc THvERIbKGU6LBGhrIFfJ9cn RVTwLP9vvsxtCAejUSsxZEF mtXK6PMZxfGPcX8MgVPZeKH mdDSLuuse0TnLmOg1epLRvr TcyMFxwYXJkXHBsYWluXGYx OPRbKeExIOkvIcDpv9GwMQ8 pYVxwYXJ9 GROSS DESCRIPTION w5icrSEjIKWnqOMQUJPoWSW (test code = xCM2ouCzzdPc4lJibQXYdim [id number]) L8sHIcCVuhi3jrOOH3y7zqd iGCZhicHUTlET7kDHwbKVTx UU5lHoFwEZOzYuQwNWWohSB jecEcNzUsEXBlpIJcrXF6ME HtUW3dfzjgNEzzQUabDXHmv pO7HZPyxVSqM0BxIBMpRS2n hosiXON1XECFGphkWt4paPN ibHtcZjFcZmNoYXJzZXQwXG RvqIjqKABzROt5aZ3WEnkjX WK8EHUXUxpoNxtqlHyqi1Dk dCBcXHNnIFxcaWQgNTEwMDA jVTutWwFVGwHeToF7EwE6Iz N6FzD1CCg7AXQIOYFqWTK5Y jZzQyJ4CCs6LQMkRR9kFOmg nFGtHQhyOownRTscS031PNg fWVTeH5CeL3QaYLofRvNeQP rqOCIbUVNaYLhzCTTxS6MEF QPwKLK2VjB5XLXnOTm4KEbc N2UCTEEzNZFpYBZ4WOLkDrX 5KPu4ISQDUz2bCpPtAoBrFm O2CAG1KWS1VDhqnPUlXLfyo 4ZkYtElGGZjPAimhnP1RWOz lzNrXAudnShpaW8zVeDjMwR KTqDLM7EwWVipMOXxKYwyoV FyZCANClxwbGFpblxmczIyX Ib7arObJIXgfJWCJTC2PY4j MSANClxsdHJwYXJcbGluMFx geI0vMO3JSVJnDuSyZ0UmJ3 fkUS2diAFupiTwGXw0UQLwU yWgu6nbmK3iSDUtxL3jGNrt cmQgYmFnLCBsYWJlbGVkIHd pdGggdGhlIHBhdGllbnQncy GeRB8hTZXNMf2ewuIjRnRiW POxIUGdkPAosCOJX0HhGMcj MINiVmLke6hosLjyTEccKMK bZN8poXQcrBcfduPvLSGqoU FjujleYqZoXGXonLOqkb1lV IfbRJqeoW3bgA8ybYJenT7y PTVpbF4kHX3sFOErYdQpwAc sw5PxKBAti4GixKkovhIaOV WewR4gHQI4QtKtU09crDNhh ZK4wvYpknHkoomlqmOoz3bw FTUdHDKog8K4HORrr0U5OQB bIIEhS5Ykk48nnRHaC7cnTX A7vRCcWf3gVKGpCTYdpU9pA Yw0RR0rbvJhZGE8BYGqKHEg i8zoGSCgSZFmn9X8CHCzl5G 2SLUjVJWqK5Jqt12kmXGxX7 eiSMP0ILCnDOJjeDsweHAgf V29zj99a6GghLYqn0JmOKOj WoKtTCXfyU8wMPVosZK7YU7 haWwgYmVhcmluZyBkaWdpdH MgYXJlIHByZXNlbnQuICBUa ZIhg5BkjwCkuIRru7qaVIDz NFVci1P6MTVyp1A0WPVuGGV jD4Mpj65krWRgH5dkZKVmWU Zwd85nDAXti1FxzXwwrpYuS OQuqW8gASHrUXZgEPEveWak tPCvutVeS5PaTBJrelKdhrv zUpqlPsWbCWvlYK30AGOhdF uis2oarzQajnIefu33ljSpe IdhjGKePTJ2xDBbYINdrDSv uNYard90ib0wiMAaxcAaM6Y xtgFdwbB5sQZvYF8sg6VkRT I7dbVaG9Qml7AbyUnmEVTub 4KzrzSnQ3fwFhHuve8vLJKq Km4wAdHaT64uANWknBCkAG5 SEDYtosDYNk8oFCTbJTOfb9 TuDSvae8QvZlTvCVOhUgR1c MRqo8Yym79oCXPdW0d2FEvb FGBgql7fcNKayCerSjQ0bLF feyZjDYZaeQTckzgcMA1iAB mlAY95CQDzCmSoYNmpOXPxc M1teNBvSqDzYCIoNRbljfRe sz51sBBbFG9jVOAyr0LwyUc mQpBjUnTho40psORvfGSvBU NbWYMhc4KmgVexOHDmq3Ezo H60A5pyoevnYz72fMR3rDDd KL5ln1XeQKHjOPYfbLDwjXY zION1zgXqG4ZyETMfIBXvko ZvbHZpbmcgdGhlIGhlZWwsI RQdDSNcJLCnUGAyg19sgPQl IGEgdGFuLXllbGxvdyBncmV otd42iM1hGHNsUWOqIESyXD 8vNY1arTIzUN2IHLCfhvBRU lRoZSBhbnRlcmlvciBhbmQg qD2mxQPpyG7uIVOjHjcncTQ zynWpjntgOJGkjYrhFQ3aff qvstYcjiMoZ6WoS3czbRYrP GFuZCBvdmVyIDMwJSBzdGVu u3MwKctlnPdrh6TrBHQ3NIV hDRBdDHDsKTEnw7JoK3WiLK T7abAxuE60ZO92UNUdTQQeI ZT7TN0da3hkGWBpXAGmleNf S6IoT7xfpLOzMWVdbl02P2o xiIIzPZTaDQEnc0LcAEvcge WhVDJymnImh2TcYL4ihUHut LNfMDCnkO1vAmIsV7FiF4li kGBzRLZ2gQOqeY71wtZwzXR ps9qerXG2FTe0ZMTcVMFhuM Zng5DjievgrNNrsKJeUFtax zKvDZosU1RfaVX7etZ1TW2j wgEgZQKnmijeA0Z3WNTnIXT nWLBzhX4mRQZwJeCmyHfbz5 VlIChBNykuICBSZXByZXNlb xLpxRw4JXUxPIV1sO6xtrTr bpIru7JnqLb6fPEkQUIdjLw ex5woUsKgQBXbkOXmKtybEX Trp01xxJ2sRAOoACDwLKZXK W7GKyoqXMBdOWrlqHNiIJ9E H0CeqNbxxeSlr3CwOqllCNY uZJkZMPigQT65EOSdv5TmtO wrgGTlAWKziNBlbItbWG2uJ kUoIUNquI6gTBFeAux0OMig FA2iHRNso7JehmhosiT6aPP aFNvaLNB8SNL7HUKdqhGgHB NlIChpbmtlZCBibGFjaylcc MDwVN7PHTP5IMYnoJ8zAX6w IIMcMaAwmQijq3PwBEKvl2M psMjcjnYwZWSfwE7wKJGtBR XdY2ItaLGlCZ4MQRF0ERVah zWqbyBdbXafR7SsMnYtmQB2 nJXzPLWfxTRvLUOwyI2jgUS lZW7ZUVJ2XEyof6rhcckuUH XoFIjZTHklADUeoW2mWEWkR DY2ezVudlp0jI6aOADgvhAs eLWjPZ9ZTRW0MBVcbHNtfI9 yIHRpYmlhbCBhcnRlcnkgKG iqc0OsGUPuxFCiGWNzLXSsh 0X5EKShw6NakVjswKIdDMKt yAQimAGenV4oWRItSydlW1w nZRJmq1B7ISQ3WH7fnWryCV VtXIZvEMekiXChLCPeh4Leg GobvjYntXWrUZ5KAQy3SBHx cnNhbGlzIHBlZGlzIChpbmt oSFX9ZCrsr0buCFqwyLoiMT RqYWNlbnQgdmFyaWVnYXRlZ MErb3Y0ESCht7N5MOaoBQPs AMqhnEBhCF2YNBJyCfWxHNZ tW9lmCGYiZX8CMvBbWATBST VsdfwzVVkULSjqYYPpY09ll 7VXl5Lif8atpHrti3RlgCOw IY68SEDltBLwSVO6WJ7xuXn wYXIgDQpccGFyZCANClxmcz UhUB3SpD== MICROSCOPIC l2jugDRyBUKcoAOoDPAkGCr DESCRIPTION (test code qrlTxIVUnkANwA4GerpzsVV = 3371) rhOB3iDP3bmIflbQPwxXNiW FToBbFps0nfx252dOKlm3td TAVQkvtiuIf8uEnbL88ku7F 0EcuiJ95kzDLmDJC4QAMsUO JjvFObAITyQKN3EMSfcXUbR 1kbNSAwNV5ikwdqVKdnKYen CDVnfDC4WPFsyNJrD3IzLFV kINqxZJYlbjy0OlNcOh8nwJ VyeTcyMFxwYXJkXHBsYWluX TAlTnFsTUWfTs9qcLNgGjii YXJ9 [facility] [id number] 12:16:58 Test Item Value Reference Range Interpretation Comments Case Report (test code Surgical Pathology = 104) Report Case: [id number] Authorizing Provider: Jun Montoya, Collected: 07/19/2022 11:18 AM Ordering Location: [facility] Received: 07/20/2022 08:35 AM PERIOPERATIVE SERVICES Pathologist: Tereso Wiggins MD Specimen: BKA L, left BKA DIAGNOSIS (test code = e5dtoPRcMTQmu0fhDQRjdKO 3220) uZzEwMzNcZnRuYmpcdWMxIH tccnRmMVxlcGljMTAyMDVcY A2xyRranIi2fVukJFWvypR0 mQSsWHnxy7ukBAR8a7teoin wTORoGNjlEp6icPNihSdfBr EkGIShWHt0iS05TCXzxJ5fn RPcEBi9DJCagKJirdXqFySs SKIkgUMggLM9GYSpZX2pdpc rLBetUShcVMJdzzA4LBZtzX UiQ4LbQLPnAA3ylrztWMF9G GdxCLFlRCI3IpPpGGGiz2Ct dvy2YuGzaEOcEPwgtNHenub dujSmNLIjFRhNU7IGHPJRPK JFTUlUWSwgTEVGVCwgQkVMT 3eoNRrTRDpNXRAyUC8CYRHD VElPTjpccGFyICAtIFNLSU4 lYM9EUYXQWxPxYZfLO6QEAD hRRFprWBiDHMGxTR0RCGhXY 2uYLHxRRZLWBR8QWPEpASBl ciAgLSBDTElOSUNBTCBISVN ZZ3FCTE9WQUzAAiZzEW4RCD IgRVhUUkVNSVRZIEFDVVRFI ExJTUIgSVNDSEVNSUEuXHBh ciAgLSBOTyBERUZJTklURSB HFnuIJJ2ONEKPVwCKZ0VHUL EXH6KPN44LSJuZAEdUHdquH TZuTP1vLQ3JZYRHR5NaWT3Z CSPZM4ZBFzuWJlASSRHGITw wTSTCFNPMRZZsL6gZSRZNB4 RFUkFURSBUTyBTRVZFUkUgQ WAWGYQKP9FWKQYLT4mXDmyn BDGgUM7xB4cYZcDQDuGzT88 WMXWNHYUSPQCiJRNSD6jLCo MMIGEPSSUCI0TEBGDIIBAGH JyGAebPLQ9RDTvEBramR1ZC RVJXSVNFIEFQUEVBUiBWSUF RRUIgZZNvjjXfLEFHZ64SXK ZRW4MIYDmJVyGVIDDZME8oV VBQRUFSUyBWSUFCTEUuXHBh juhkBSX2u3cmkUVtFPDueHK xODAwMFxhbnNpXGRlZmxhbm smGNEcTDT1tkDmAKKyAVgfQ RIgHHxxAo7mxSMueLoxAaYd WBOvc7ibtpOUffjkyPa1q8p xABXxImM7sTUcVUmpT3ogid UgyYUoNVOdYBe6qR49EFBrz F8dkGYlCZqaueQfMhR9EOjo LSOxOyB4ZBKmtIFaVPWtZ6m yZWQwXGdyZWVuMFxibHVlMC H7rDpcy6G0rMQmzFWsrHphB qGzUyYjQhLQp8RoQYf5gWyc B7QeJRZsKgB7eNVcGJNoOVu xBOSnVKCbdfP0gI44QSrxqd H5fXGnh6Isi99bt857rH4wk QClBBL3VVJeTTGylLNsZHAh HMY6PIAhwUFzR5bgMYTsBG4 rcgonAUxbZHewDNAqaFR1XT KyzJMaV0BrTQRyIJgtNLDxo zn3TxVwMg0lrWPflZtbLCsn i8aol1aczCJfPgs5AAPvXvT pQzegXEdgd0Fup2wzZNYvee 4qDGS3qIGnjZljm6G1nEWiG ZHlzZZxODSoAR7prUPlLFYk iO6oiugzYNEhFkWfthfbIBL wxIapqbMrLj9hkAfdYKN5EX fnE6wyqQ0qBeX0GAnsD3muz W1dDZq2IEndFZFwoLW9dzX2 NEQqyHHtM9LblI1cEOQkAR1 whhv4c5rtRGS9TLsdIOHdYf M8kjH0EHRulEKyHWKkjCccA Ozpu503VNT6HgYtBPEwj3Pw T7ZryRucM05ahPufH96bWVS ipZhfsP8seWmqkH7zTrSuVf CiTXuclVruQW6mLMGmV9ttl RRlCXCyMUVtC9wrIjGmtV8o eCrzRVibrdStZSRwDir4UOA afSLgHVZiFdj1MEZgYPMnB2 5dbwptSFB4sT2il8xbi6WsQ PgxCXI4TBRfh99cXAonlnT5 JUwnBf90LFgsLQK1TVvkOBX 9fQ== CPT Code(s) (test code w0mqqUHnKIWtbEFbHNJgFGa = 3357) duyNjUEBugFOvF9HzvwpfTB xvBT6yIE6myMxtjLRjlMItD WChRbPya0srx187iDPwi9nb XNBJcrfehDs8mMouG68sh8X 4AddgJ06ezMWfBCA4BPRhGH NabQDlGJYvSPG8ZDEotNMoS 5ffOHGhDS6eojehSBuwFTjb RESqmRR0GQFlaRBsC5YaOOL uZAzzJKTvdfw3PeDnGj0svK VyeTcyMFxwYXJkXHBsYWluX DMfHkZyKEjaCGegWNj0WaMv IHggNFxwYXJ9 CLINICAL HISTORY (test f9kowKTuOXMbfNQtSSVyMLh code = 3356) reqMoXGDxtJWkA8GtcwdkZT zfXQ7mXG6rkEhzoODdaCMpH IDwCtOgx0kto301tPOok3fb AUKEBDhrLYRIZXa7o2xcZZB EwzrqoUm6pRihV03bz3R7Oe jqO07irAGiDXI6BYKmCNGgi JGhKSYzEQV8IIKsfZRfH2eq QLEqQX8hzuwvOQuwDLamQVI dpME7XTJavNMaL7WmPZQxJG rpUQXrfko9VgLzYy5jlRArg TcyMFxwYXJkXHBsYWluXGYx ZEHrIsUgTNimHhTbd8AkLM8 pYVxwYXJ9 GROSS DESCRIPTION e9nkcUYiPPNleVVYYVObZQJ (test code = yTA1huUkgbEj5kWxfGRDkwd [id number]) U1tEReGWzdz9laSSG3p4gzg rCBLhtjRXPkIZ6xJEkgGKRi MJ4kZfEqCXXeRcKsISVqhLG nioMcKnPbGREisYQokYB2IL JxCZ9wveojDNchECzaOHYxy mD5IMGntLSiH3ZuMLKtBG7b hdvoRPQ4LBMVTtelRc2ljOI ibHtcZjFcZmNoYXJzZXQwXG CdqJnbIDGbVMe7eN9LRefpO DN2OYNMJlhrOpqduMxtj2Vr dCBcXHNnIFxcaWQgNTEwMDA pVPsmTrYFUdWrVvR6XbL8Xa N7XxS1EYm9FEARGDUqGCS1M mSzDtO0WVn9NEKhRB9cEEgn kJTcVEzfCtguCZuuT004ZLl iYERiL8CaS4EmYUftTbPiJR wwYVEyDIWhMBxcQUDpV4ACJ OIvPYW8IqQ7JCDjBGa1VYfl M2ODRIGtPGWhFIA3LDUaZcZ 1YEa1MEUHXb2pHzJkVqEyBp F2IXZ9ZIG2HZgrnUDwIAuhk 4MtYxBjIYXgOJfqhoM0YVIv iiMrYMdltXgwyN8rVzGtVqF TEiEDZ4MjWQkpQBTdRXhqzJ FyZCANClxwbGFpblxmczIyX Rb0kaAxQIFcuVSQZLG1QA8j MSANClxsdHJwYXJcbGluMFx uwD1aWW2WZTZgAjBoV8DlA9 wcST9ryDYbayQzMFa9MWWjI iPjh7amwT3aYYMlvL4qRDkd cmQgYmFnLCBsYWJlbGVkIHd pdGggdGhlIHBhdGllbnQncy YqRY6wKYUBSf4jfsLjYkCiC MVjUKHasTBqtGJSB7GeHZvz YACkQlVxv2cncIcbKXyoAKC oTS4qjSBwzEberoOtXJBzxT OybylrZbSiJGUtbEPtku3hP ObdUDpqnF6dlM9rkNLvdP2z LBOavF6yAU9bBRVhJtUlgWy yr7XbWYLkw1LqqNswvsMzZF LweQ1rPGZ2ScDqQ15kvEVyc JO2fsChbcDzwjpwiuCpr6fe WYBjLSPou2L1WNYsz5B7WRP mRHLiQ7Ykh32hrXDdM7bfJW B1nTEzEk6cVNLrEYJtgB3zA Pj9XZ8griPeIHG5ZWXlUTWn i1ksMQUpAYQyq6J1AQMvn6J 2PWNuOAEjO2Atu56mgTHrL8 jtSBH3ZWEpTSCtlAznfHFlg C24qb27y3XuwQJti8UaWTIh ZmPcXMXscK4uOFPcsVY5EQ2 haWwgYmVhcmluZyBkaWdpdH MgYXJlIHByZXNlbnQuICBUa AAel5SxwsExeTPnj6lqMYSr BQMrj9H2JHGuh1N5QRChDFE tG0Swt71vuJXpL6jmVLXnNQ Zrx44xDRRjz8XprCanfaWzV PFhsN9hWZRyYSZdOLCncSgs bQKdfnMqW4EvCVNzutWqasw wDnxjXmZpINjnCA66BBWkbI axe7fkzgNpdsYtcz41zmWgc DecxDMfLRT3sWRdSFZvhHIr yMSagk28ck7abJKfnrEaC3W bptMsbvU3rHHyXL5kx2JjXM P4dqKeA1Tnh4EloGyqJELis 0OjqhAsS1ysNcEvmx4lTEAx Nj9iHzPbU92gHWSovXIdFG8 SFIFhubBFCl9tFHViKQMtc0 EmNJcpa2CaFjYjVQOcYqJ3p FGbm7Dyq16sHGAmU7f9ZXqd YLGlxo5yaVQvcVttHqT6hSA bimKeXVEoeINsqimlZK1hJS mpZT42BNMzQrNkABqwVTMdv S5jmXNfPkWdFTFxLMktppFo uu52nXPuAJ8pTIQtw3IfiOq zDvSpZvEdv00eyUOshHZrFP HkCJHiv5JawQaaLAVbc1Wzj K89U4qwjtykNn60kGW0rADb ZD0ot0PzNLVtCMRbtCJttMB jSVV1qcKnI2NxZFKbZDXvri ZvbHZpbmcgdGhlIGhlZWwsI IOxXLTrACElWBIjv43ysUYc IGEgdGFuLXllbGxvdyBncmV fwa95sR5wTGHfDYNsDXAxGC 8pYR9wlEQaXR0WVUQbhhHYX lRoZSBhbnRlcmlvciBhbmQg wW3ccUTcxZ4pMWQeXbtpxRG cemMsgijuQJScdEqtGA5yym dzvgGikhHiF2VyI7hteXKcY GFuZCBvdmVyIDMwJSBzdGVu l3NoCtxwuNpym1NhDGG0EDG rWVWnYFIcTSYlj2PrL7JtNK F3wsIihD96YX98PIIiFZWxA VY3RT4do5ofDYQsKCBqwwOk A3NaC9ccjGGkKACchx86A0i hgXWjUUNuYBQrx5YtFRbjkd ObQEWtagSfo7KkME9chBKxi YYiSVJqiP1yAvLwR2OpJ9jv bGEoBSD9zFGrvP55imWlcOY wq2pztUC0UYa8FVTvYCUcxZ Zyk7IfjwfxmQGnmOOzQBjih rJqMPksX8IvoFZ7vqL1JH0e giRiSIDgycceD7G0OMRvYPM sINUeqT5oLBRsKzKwgCqhi1 VlIChBNykuICBSZXByZXNlb yDnoYj8DLFcJJJ1sA3vxuCq vkOxt8VgzLx9rWMhJKEmfDz sa6clApNxBWSmjFMoNmjjIX Ccd69hfP3xWMKzAMYoZNFAR V7NYatgDLQvAPsimIYoJP1M F1SneDinfaGqd6VnUbmuJNS cMSbMSBrhJY59LSOwk1EnhQ sfeIHnJBMvmGRnuPxsJD8nL uMzSSTneL1tIUOyYnm8KRmy HF0vKUGci5KvmdbsflF7wHC vDIefLHF6BFM1GYOnknTvXW NlIChpbmtlZCBibGFjaylcc UVgZE9LDXJ4VJNnqO2pBL8i HFUpQeQcvCxps0FyIBSsg8M xqZjsheNpKXAxwR5vKEFkKS UzH5SnjJUsMJ8FJKJ4ORBya jBwlbGylBtlW0KtLhGoyHF1 lMLuQAPioNCaKOUvxM8sdDK cVF5WBGN1UYmju5fhrhdoXB ZvAFuSFPntPWFrbF5yZPJcB TQ2yhYaidj6pQ3bFFSupxLg lJKaZJ0AVPG5CJUcdYVnzM5 yIHRpYmlhbCBhcnRlcnkgKG hek4CkADGuuZIaORAoBCCxv 9T4ZWHiv6MmuKfxfIJrBQGe lHNlcDGjjG2hWXPhHqqkP8z uJIJgr0B0XJZ3UG7sySpvHY DxHOVgNArjvILlHHVaf3Mnr KoqdjMqhRFkUG7TYGx2SHNk cnNhbGlzIHBlZGlzIChpbmt kLYF2ASchb7jlYIvemAvxQC RqYWNlbnQgdmFyaWVnYXRlZ PHfj0T4APZwa8O6VZpcJGUl TBhnrUAlXO9KNNTuGbLiGCE iZ5qxLLMfQO6KOtFtHUCPUY SblfupNDnCFOtqOYVuH79bk 2IFr6Nsb7omnOths2HhuQSt BP55IPSddVJwQXB3DK6jjVc wYXIgDQpccGFyZCANClxmcz GiUH4IzC== MICROSCOPIC y6dxbITvIEKxcHXiUAUhHNh DESCRIPTION (test code cpiUcYPUlcSGqJ4GpjrjyBX = 3371) dfFY6bQA2rrBzbjLJjySMvV NAvKaKay1stv882sFCfz6xe IXIAgzswwNm7eAwnF76cn0F 8SwdpH67raIYfJAT6HIZtQL WiuDOlQHBdDFX3NCRzrPOwW 0brIMYnSG8maeshZNyuAXjv SCHdnDF2SKLonLHdJ8TmKPW nEHxgLSQiwtk0LaJiVk6pqR VyeTcyMFxwYXJkXHBsYWluX YVuOsWhNZGmEj1tlCPfTxfp YXJ9 [facility] [id number] 12:16:58 Test Item Value Reference Range Interpretation Comments Case Report (test code Surgical Pathology = 104) Report Case: [id number] Authorizing Provider: Jun Montoya, Collected: 07/19/2022 11:18 AM Ordering Location: [facility] Received: 07/20/2022 08:35 AM PERIOPERATIVE SERVICES Pathologist: Tereso Wiggins MD Specimen: BKA L, left BKA DIAGNOSIS (test code = [id number] 2330) uZzEwMzNcZnRuYmpcdWMxIH tccnRmMVxlcGljMTAyMDVcY F2guTldnXm4uFihAFLudjQ7 lQMeRJojn7kbJIL7v6jjstr hTPSrORlkQq7kyWPotXpzXg SeYYHxKMs7nG70YQCzuJ6qp PXnXVh0MDRljKQcpuHtIlIm LULpbFMqpHA4AIBoWE7oomh eOMysSGvlCSBjxrC6FOJilL FpW7JdJGJnVO5jtdyzEIL1V LytMBDkUXR5HbUyZANox6Ad jbv9WpXbkINhSVkekREczaj jajCsKXSsRIuIO7VROXHUGH JFTUlUWSwgTEVGVCwgQkVMT 0opZHaKXZrHQVWmWL5APZAW VElPTjpccGFyICAtIFNLSU4 eZW9WBYUBEhXcEHnKX8BJBR xOYJygFUqZUOKiPV6ZREyTG 6gSBDaDOZHHTZ3ENUBhVPDc ciAgLSBDTElOSUNBTCBISVN BD4PRDD3IRSePYkUyZM4WRK IgRVhUUkVNSVRZIEFDVVRFI ExJTUIgSVNDSEVNSUEuXHBh ciAgLSBOTyBERUZJTklURSB QAdjAWD3KNTHRFfDOG7YKHX NFQ0IXK11HMHqXORiHFjuhP DYxFE6fNZ4BBUVBV7ToUH9K ESBWZ4YHMloPPaMYDCMVVAs jVVPLZSRJHKZvS5jOZJKYX5 RFUkFURSBUTyBTRVZFUkUgQ ZPPMNTUG5BTHTHAV2nNKlcs WIOaLQ8yZ0mLEyZDOzRaR23 WNLMMXCKHXCUxVNGQQ9gMQl BEVOPITCOIC3FWHWFCIVUPC HnPDfzETD9NCEiZQvsxB1TS RVJXSVNFIEFQUEVBUiBWSUF JHGSkNCOwhcKvTHUVE22GXS WFY8KHSCsGCyIOBKNCMI0qU VBQRUFSUyBWSUFCTEUuXHBh pkmyEJH0o3zdiBSpIFAqdZN xODAwMFxhbnNpXGRlZmxhbm iiDEWsFFH4xdAqCWClYVmjP EWzYIzoBf8kvIRukAtdGqSm WAZec1pfwrUZxsyxuDa8n5o xQJQtCzT1dNPiTZsaX1jjmy AxnRWtXWJuDSt8cI84ZFGeq D2ndTXeHTvzhwWgEdT9SOzz UJDhXxJ7FIRigOErAOTcL3d yZWQwXGdyZWVuMFxibHVlMC O6tQolk0A7rHFjbEDkjBktF oAfAuNyUzEEj5ThUVr3aImd P0HoKKGeUjG9jRAkBZLuGKd qHNMvPKXyzxM2dR53HOegyo W6vJCuo8Wip48ag035gS5ic OJqWUQ0VFUnFMCohCVoBEYk DQH5RHAdjXRrW0ovERNkWF8 rapsmDMgaTOfyTXNbfIU1UQ IevZRwW2XvXVWeUOorMBGcd ie2BuVuFd2jnKLyjLigWKmp l7fcc8vvqVLtMrc1ZSOfAfP tCrxjRZtkf5Bis2ttUVEfxz 4dUWA5hOCzgJhjw5I0gLNaS MTxoLYlMAYfSX9laTUbSPMa iH6zpydmFPRnSfTsdkkjXOY qcDocsgXqBm9dwIuxBIK4KQ kvF1kxoL2eVxU3TWwdU2svj B7yXDk4SUujHFUqjOK9biQ8 AWPwrFAtH5TubE7fHMGhGY7 kuct8p4okRWC4ASjjBXYcJs A9zrZ4ZZGriVKaHTMzpEhxI Jrfo926USE2WgVrFCZet2Uo I9DxpHtpN90pbPgwL92oWKZ miNitiU1rwUzqwK9rPlNhEd IoSFvlwQjtHN0pTUSzC1lse SQeTWWeGUTlK5nhPmDajE8o mMfiALazsvDvWXSsAye0UFG nlNDpMAKcPsa1PHTdEYSfO2 0cmnmtXOC1nE9wt3xgy5BoJ TxiNFY4ZFWil64lGBqjjaG2 ZRccKw46SWxhGBU0ZKrtWIY 9fQ== CPT Code(s) (test code r7uotIMcTPHwoDXrZUJkHZu = 3357) lemZaIHGmeTDyO4PfndklPQ tcQO9sRI0qdGyoxGEjlFNvJ XXdDpBzn4snu980nUZpf3mv WSKHcyeywUc7fOawZ06ad1S 0HrfyC91jeCVhJXS7KIZlEX ZdiLXnKZNxXAI5EHLfqIObF 0uzDBBmRT5sjjlkHYdhSMsj VCQnsAA4OUQikUKwB1LmRWF gQIxrPVHybfq5ZuDlIv7nwE VyeTcyMFxwYXJkXHBsYWluX ATlKcLaTDpgEHpaAEx9WfUy IHggNFxwYXJ9 CLINICAL HISTORY (test j3ntmPWyTDKjiZTdNDJoPSe code = 3356) xmdYqCHWldCYmI4VcrmesLI roAD4eBZ4ecUxdjKQrnJWdA JXcEhZwk7ohm806zMKny7ib HZEVXDgrKFHBLDc0a1aoQYJ OrrsujNd4dCanT33hg6B8Wt roU28xrSEeEHP5UIUrEWKje PTyJWPrGYM9SWDamQUyA6ug TGAiSZ2vwqmlGQzxNElhYCV yqTE3ZXNayFMtU7YxCBQlAJ drDLAzgmk5NgHcHd6rlJQqn TcyMFxwYXJkXHBsYWluXGYx NXPjMrIgOVdqDaMwy3CiNC9 pYVxwYXJ9 GROSS DESCRIPTION j6jglIYnUAJcqMULVUArAKE (test code = vGW2asBblvHw7gQerJORewy [id number]) G5vXGwOIuls5vzBDH6s3fxn iTYNexnJEDyAA5nRXtwAYVy FB5aFyOdDVDjGsAuPVVzdCY picKmKvLyEQXafQAskVH3AQ QeDS9nesuqOChgHUhiSXTwb oF2RRStbZPoX3NeBDOvMR3l pqhwHBT3UDXNAgbdVd0zfLR ibHtcZjFcZmNoYXJzZXQwXG IakCvnBFNlEEl1wA5CWhsiR HC5PGMMOqknBnvgfOqyb6Wd dCBcXHNnIFxcaWQgNTEwMDA uBByfLzQYViGoTjN1OfO6Hl H5HdS8CSn8EBNCZYLzDFK7W fQhCbY8YBc4RDChPE6cBFwg yFTvFVwtXmxdAHiwH245RFh pDGJrC7IhN7DbAZvuAuEjQX naXXKiOJZhNLdxKFVpJ6OOD GLySSE6XiB7JZAzSAd9HWmt H0CTYSUxOIGnRZV6FIQbGrT 1DMx9UDCOTi2xLrZwOsTqZi U8NTT9ZRW2ELyhoKCqKVrvm 1MbZwZfCMRuNQveojX9PMId emLyMNanqFpsiJ0sPzPqLlW FPvOWI0CyLUrfSZPoJFsgkM FyZCANClxwbGFpblxmczIyX Sb1rnOmCMPdmEONEBO1TA0l MSANClxsdHJwYXJcbGluMFx whU6aYW7NHUXxRmNlA3RqO5 djPJ4seKWihoAdEUb9YQUqN kQeb6wmoN1rWFJojW1hZUzd cmQgYmFnLCBsYWJlbGVkIHd pdGggdGhlIHBhdGllbnQncy JrFO9dWSMNOl2xnfXqIaPgO MMtRSWmjWBsdTTBM3XbACca JMNuQgEow2vudVuhVFebILY jAT6diUQlvYysfvFjGRVaxI KngdyqYdWcFELypQZgyq9cM CmzZNrftK9fnW5jaPCgbS4t JZTiuE1gIV3zBKKrDkPtdPd de1CdHUWeh0JhnLqcyiZsYG UolN7tVVA2WuVxW66jiWBwf EO2kxMflhCztcuzkwHyj3uq KIKjBDEbj6I5UFVqz9D3VLH rJBMmK9Mhq93ooPVlK1ywAS K7vTFpTo1tJFQaQUUvjC8tL Ie8EN7owgSeYHI3LCFqSXOk i1pqBXMtGDKlj6X3BZWfa7V 2WINbGUFsL8Ngh67skADfB4 naEAP5NOFsGEVsvLvktIDma S11za83u4ShmMSji5LiZYVs IzCyPFGskF4hGXPapRM5PX8 haWwgYmVhcmluZyBkaWdpdH MgYXJlIHByZXNlbnQuICBUa AUja8EuuzJtjJNqi6vaSROr AQEei4L7EXPnh8V8BJZhSNU dO4Zyw36uxSYrW3saHUEhAY Vgt03dYNXpc9JdaJrkseTtM ITsaA4lCEOeLKFbDCAlvUpp qELrxsMwH1OkMHKhvzKftvp zMxtmUzWyWRnbDV65FODdiR mxd3akwkBxgsVume59ioScx KlgzWFuYHW5fQNrPNTjyGNk kIJxvl13mu2uyBIeoaHzK9H yjcZsbdU5pCZjUG5gg0GvNA Y4vrEzD7Gla2GldFneWHDhp 0QwdzNgZ9hgJeMgbd1jEYEn Vq7hFwGkC49qRILfkUSyVS7 KAMVfspNTPn3dVJTyIAKra2 AvBOrqo0DkWoCbMPPwMyB2s CGnl9Ote21nPUHfH2q8BXwr GHQqbv3aqJYwoRixXuX5qNR khpJfQUEkxMEfjyoeRF2eCV xvKD59MBAcGrZsLUvrCTPgr X2imQYyYfUbWMCgTUjaubMg tt60nPMvQB2jDFJck5FkgXo fGsVsFjHon16vzZZkrPPcGN MnYOXqf8MnsFkpDSMle8Rpd B97M0dqykuwIa73eJN3oZKs OL7fm6AaMGWjLSUevGHxoET aPPJ4sgOzX6WvBZIcWTXxdl ZvbHZpbmcgdGhlIGhlZWwsI RAmTCAdVIFuPMTyn38mvCBf IGEgdGFuLXllbGxvdyBncmV abp32kP3vLYHtAUOcVNFnLQ 8fPY3klOQyXE7RZSXzfrRMG lRoZSBhbnRlcmlvciBhbmQg eQ1rrDZusX1pFKKsOavilJP vryQtldptUMUcxMxeVZ9ykn yazoQnwoVmC8AuN6lpsKYlH GFuZCBvdmVyIDMwJSBzdGVu u8ThCtyncVucj0ZjGNJ8JRR kCVRgIWOjCQKqp8WqY3YrIV E8ckKfeV62YO32SFPjIOLaQ HN0ZK8ku5ciNKKvUWOfsbTn L9VzW0zlnJFkVOBxav83H0s rxFCmQHQiPNAzk6WhQFffcp EcTCKmnzZud2KhZQ6kuPGqj WWeCLXocD3sReCkD7JzF6tn zNGoQDR2jSDhbU48raVdkMN zw8zgbJX4GMw8IANkEXOjlJ Rpl6AsstrqgOTgpLJxHWtck vTnVYtmA0LxvLD1kwN1NC2d hcBmGXMwvmovS8V7HMLnGKE oFPCkoQ0fOWOdXgFmkTont7 VlIChBNykuICBSZXByZXNlb wZzcZv4FPVbNBC1dS1glrYo hyFto1BnxPi9wKLwBEQxdJa lp3unYlEjGAAniHNaEzniLI Rgx19fsW7iXIFrZTOdTSPNY T4OXqlnROVtBOwalVCqWL2Z O9TrhWgsipHin9RyXgdqSLS aPCyLGGykGJ71LJHaz6IziB vlgKVjJNGrlYOumQsxJY9yQ mGeKQCvnE9rEJZaNcr5BGry VY3pWKGgb4BsgydukmK4aEO lLFawWQK1XYF1MJRvzhOxEP NlIChpbmtlZCBibGFjaylcc RYmJX6CDSE5FUWvaI2vMR8l EEDgNmFkiVhen8OoELAqa8H ciJvzsrMmRMYawX5qYYKxQA DiW4MqjLSiQS6BDAF4ZSDtp vEaphUmjKfgY1CuWwBlbXR9 jJNwSCEjfWHoHHZdbD6yqLH oTK4ZPBK3GOpuu3vpxjmeCZ VtROfBTProYBWjnB2kKJOwF LF9sdQsymh5fB7zHEAmauSb nXNkAQ8JOZT8ZXVtjWDmdY7 yIHRpYmlhbCBhcnRlcnkgKG lex9HzHLBrsSIbKACbHNAdg 2F8ALCuw7YldIfmcGWyFNHx yFIqdJExyT6tNIOnBhgsO2u pJVHpw1P7NRC0SZ3zgPujMP CbZKPnPUzpzCOtOQVkb5Kxf SxrazAfqODxWR2IFRh1RLLw cnNhbGlzIHBlZGlzIChpbmt aIIH3GQfmv0zvXMxkeZfpHR RqYWNlbnQgdmFyaWVnYXRlZ JYgr3W1QJDhy2H1MTcuYWAi CTuwcEAoAM1CXORaBhPwMRC aZ6uyAGPsSZ7EDlDnPQWHYV HbzajrTMuIGQhyGBNuY44ul 5PPr3Jdk7ibwSqgo6DbkWMh GL86YHGrwXYmDNU1NC7odAt wYXIgDQpccGFyZCANClxmcz KcIB5BdF== MICROSCOPIC o7yegJQyQPUgvGWqJEIqPLx DESCRIPTION (test code gtdKxOIYfbLVbA0NkawrdQH = 3371) eeJB1kRO8fuXaajOLxtYKtF LYjOzFgh8nac257xIMkv7cj QEFMrxzvqYl5lXhiG18es1B 3DgueA51slMXbCDZ2GLEkBA JgxFIoZOWdKGZ3MNShlHGjV 1wyKZKmYK3rxztgPKpvINtt OSNjqMN6ELWbtFXeV9ZqSUI vYGxyAIZbuiz5SdAjXb3lvZ VyeTcyMFxwYXJkXHBsYWluX EMqMyNjPHNiPr6emHMqQkas [address]XJ[address] [facility] [facility] [address] [facility] [id number] 12:16:58Surgical Pathology Report Case: [id number] Authorizing Provider: Jun Montoya, Collected: 07/19/2022 11:18 AM Ordering Location: [facility] Received: 07/20/2022 08:35 AM PERIOPERATIVE SERVICES Pathologist: Tereso Wiggins MD Specimen: BKA L, left BKA A. LOWER EXTREMITY, LEFT, BELOW THE KNEE AMPUTATION: - SKIN AND SOFT TISSUE WITH ULCER AND ISCHEMIC CHANGES. - CLINICAL HISTORY OF LEFT LOWER EXTREMITY ACUTE LIMB ISCHEMIA. - NO DEFINITE EVIDENCE OF ACUTE OSTEOMYELITIS. - ANTERIOR ANDPOSTERIOR TIBIAL ARTERIES WITH MODERATE TO SEVERE ATHEROSCLEROSIS. - SKIN AND SOFT TISSUE MARGINS WITH FOCAL ACUTE INFLAMMATION, OTHERWISE APPEAR VIABLE. - BONE RESECTION MARGIN APPEARS VIABLE. SigningPathologist Direct Phone Line: [phone] signed by Tereso Wiggins MD on 08/04/2022 at 12:16 [id number], [id number] x 4Limb ischemiaA. BKA LSpecimen is received fresh in a biohazard bag, labeled with the patient's name, MRN number and "left BKSaqib" is a below the knee amputation measuring 22.5 cmfrom heel to posterior skin and soft tissue resection margin, 29.5 cm heel to anterior skin and softtissue resection margin, the bone margin extends past the skin and soft tissue resection margin by 6.5 cm, heel-to-toe measures 26.0 cm. All 5 nail bearing digits are present. The overall skin and softtissue resection margin and bone resection margin are cleanly transected and viable. The overall skin is brown rugated, with patchy brown-black scars on the dorsal surface of the foot ranging from 0.3-0.5 cm. On the dorsal surface of the second digit is a nonhealing ulcer measuring 1.0 x 0.5 cm. The skin is friable, necrotic and sloughing off on medial side of the foot touching both the dorsal and plantar surfaces and involving the heel, the heel also has a pool-yellow green-tinged appearance.The anterior and posterior tibial artery at the margin are calcified and over 30% stenotic, these arteries are dissected to show over 40% stenosis and are calcified throughout, the dorsalis pedis does not appear to be calcified but shows approximately 10% stenosis, it is also adjacent to pool-red variegated appearing soft tissue (A7). Life Claims Examiner sections are submitted following decalcification in A1, A3, A5- B2Qezdqcl code:A1: Anterior tibial artery, en face (inked blue) and posterior tibial artery, en face (inked black)A2: Skin and soft tissue resection margin, en faceA3: Bone reamings from tibia at marginA4: LesionA5: Lesion and underlying boneA6: Anterior tibial artery (inked blue) and posterior tibial artery (inked black), most stenotic and calcified sectionsA7: Dorsalis pedis (inked yellow) with adjacent variegated soft tissueROSHNI Layneerformed.POC-Glucose meter 2022-07-24 11:59:12 Test Item Value Reference Range Interpretation Comments POC-Glucose Meter (test 104 mg/dL 70-110 : TE STED AT [facility] code = 1538) [address] [facility], [facility] 30: Rouge Mixer/Techni tawana ID = [id number] for Whitmore-LANDAVERD E, MELE Lab Interpretation (test Normal code = 16044-8) [facility] [id number] 11:59:12 Test Item Value Reference Range Interpretation Comments POC-GLUCOSE METER 104 mg/dL 70-110 : TESTED A T [facility] 6720 (BEAKER) (test code = [facility], 1538) [address]: Rouge Mixer/Techni tawana ID = [id number] for Whitmore-LANDAVERD E, MELE POC-Glucose [id number] 08:36:13 Test Item Value Reference Range Interpretation Comments POC-Glucose Meter (test 104 mg/dL 70-110 : TE STED AT [facility] code = 1538) [address] [facility], 770 30: Rouge Mixer/Techni tawana ID = [id number] for Yoon-LANDAVERD E, MELE Lab Interpretation (test Normal code = 32650-0) [place] [facility] [id number] 08:36:13 Test Item Value Reference Range Interpretation Comments POC-GLUCOSE METER 104 mg/dL 70-110 : TESTED A T [facility] 6720 (BEAKER) (test code = [facility], 1538) 13905: Rouge Mixer/Techni tawana ID = [id number] for Yoon-LANDAVERD E, MELE [id number] 05:22:38 Test Item Value Reference Range Interpretation Comments MAGNESIUM (BEAKER) (test code = 2.0 mg/dL 1.6-2.6 627) Rouge Mixer ID - MARCOHEPATIC FUNCTION [id number] 05:22:38 Test Item Value Reference Range Interpretation Comments TOTAL PROTEIN (BEAKER) (test code = 6.0 gm/dL 6.0-8.3 770) ALBUMIN (BEAKER) (test code = 1145) 2.8 g/dL 3.5-5.0 L BILIRUBIN TOTAL (BEAKER) (test code 0.8 mg/dL 0.2-1.2 = 377) BILIRUBIN DIRECT (BEAKER) (test 0.4 mg/dL 0.1-0.5 code = 706) ALKALINE PHOSPHATASE (BEAKER) (test 54 U/L 40-150 code = 346) AST (SGOT) (BEAKER) (test code = 17 U/L 5-34 353) ALT (SGPT) (BEAKER) (test code = 9 U/L 6-55 347) Rouge Mixer ID - MARCOBASIC METABOLIC [id number] 05:22:37 Test Item Value Reference Range Interpretation Comments SODIUM (BEAKER) 137 meq/L 136-145 (test code = 381) POTASSIUM 4.2 meq/L 3.5-5.1 (BEAKER) (test code = 379) CHLORIDE (BEAKER) 106 meq/L 98-107 (test code = 382) CO2 (BEAKER) 24 meq/L 22-29 (test code = 355) BLOOD UREA 53 mg/dL 7-21 H NITROGEN (BEAKER) (test code = 354) CREATININE 1.79 mg/dL 0.57-1.25 H (BEAKER) (test code = 358) GLUCOSE RANDOM 105 mg/dL 70-105 (BEAKER) (test code = 652) CALCIUM (BEAKER) 9.1 mg/dL 8.4-10.2 (test code = 697) EGFR (BEAKER) 30 Interpretatio n of eGFR (test code = mL/min/1.73 values Stage De scription 1092) sq m Result G1 Mckayla l or high >=90 G2 Mildly decreased 60-89 G3a Mildl y to moderately 45-5 9 G3b Moderately to s everely 30-44 G4 Severl y decreased 15-29 G5 Kidney failure <15Reported eGF R is based on the CKD-EPI 2020 equation that d oes not use a race coefficientEsti mated GFR is not as accur ate as Creatinine Sera guidry in predicting glom erular filtration rate . Estimated GFR is not appl icable for dialysis patien ts Rouge Mixer ID - MARCOCBC W/PLT COUNT & AUTO [id number] 05:04:33 Test Item Value Reference Range Interpretation Comments WHITE BLOOD CELL COUNT (BEAKER) 6.9 K/ L 3.5-10.5 (test code = 775) RED BLOOD CELL COUNT (BEAKER) 2.87 M/ L 3.93-5.22 L (test code = 761) HEMOGLOBIN (BEAKER) (test code = 8.1 GM/DL 11.2-15.7 L 410) HEMATOCRIT (BEAKER) (test code = 26.1 % 34.1-44.9 L 411) MEAN CORPUSCULAR VOLUME (BEAKER) 91 fL 79-95 (test code = 753) MEAN CORPUSCULAR HEMOGLOBIN 28.2 pg 25.6-32.2 (BEAKER) (test code = 751) MEAN CORPUSCULAR HEMOGLOBIN CONC 31.0 GM/DL 32.2-35.5 L (BEAKER) (test code = 752) RED CELL DISTRIBUTION WIDTH 19.9 % 11.7-14.4 H (BEAKER) (test code = 412) PLATELET COUNT (BEAKER) (test 154 K/CU MM 150-450 code = 756) MEAN PLATELET VOLUME (BEAKER) 11.3 fL 9.4-12.3 (test code = 754) NUCLEATED RED BLOOD CELLS 1 /100 WBC 0-0 H (BEAKER) (test code = 413) NEUTROPHILS RELATIVE PERCENT 67 % (BEAKER) (test code = 429) LYMPHOCYTES RELATIVE PERCENT 18 % (BEAKER) (test code = 430) MONOCYTES RELATIVE PERCENT 11 % (BEAKER) (test code = 431) EOSINOPHILS RELATIVE PERCENT 4 % (BEAKER) (test code = 432) BASOPHILS RELATIVE PERCENT 0 % (BEAKER) (test code = 437) NEUTROPHILS ABSOLUTE COUNT 4.61 K/ L 1.56-6.13 (BEAKER) (test code = 670) LYMPHOCYTES ABSOLUTE COUNT 1.26 K/ L 1.18-3.74 (BEAKER) (test code = 414) MONOCYTES ABSOLUTE COUNT (BEAKER) 0.74 K/ L 0.24-0.36 H (test code = 415) EOSINOPHILS ABSOLUTE COUNT 0.24 K/ L 0.04-0.36 (BEAKER) (test code = 416) BASOPHILS ABSOLUTE COUNT (BEAKER) 0.03 K/ L 0.01-0.08 (test code = 417) IMMATURE GRANULOCYTES-RELATIVE 0.70 % 0.00-1.00 PERCENT (BEAKER) (test code = 2801) POCT-GLUCOSE [id number] 22:20:31 Test Item Value Reference Range Interpretation Comments POC-GLUCOSE METER 131 mg/dL 70-110 H : TESTED A T [facility] 6720 (BEAKER) (test code = [facility], 1538) [address]: Rouge Mixer/Techni tawana ID = [id number] for ETTA SHINE POCT-GLUCOSE [id number] 17:10:59 Test Item Value Reference Range Interpretation Comments POC-GLUCOSE METER 132 mg/dL 70-110 H : TESTED A T [facility] 6720 (BEAKER) (test code = [facility], 1538) [address]: Rouge Mixer/Techni tawana ID = [id number] for [place] LLIS, SAMY POCT-GLUCOSE [id number] 12:48:32 Test Item Value Reference Range Interpretation Comments POC-GLUCOSE METER 101 mg/dL 70-110 : TESTED A T [facility] 6720 (BEAKER) (test code = [facility], 1538) 45591: Rouge Mixer/Techni tawana ID = [id number] for [place] LLIS, SAMY POCT-GLUCOSE [id number] 09:08:24 Test Item Value Reference Range Interpretation Comments POC-GLUCOSE METER 89 mg/dL 70-110 : TESTED A T [facility] 6720 ([facility]) (test code = [facility], 1538) 66015: Rouge Mixer/Techni tawana ID = [id number] for WILL IS, SAMY RAD, CHEST, 1 VIEW, NON [id number] 07:01:00Reason for exam:->short of breathShould this be performed at the bedside?->Yes [facility] : 1950 Sex: FFINAL REPORT RAD, CHEST, 1 VIEW, NON DEPT INDICATION: short of breath COMPARISON: Prior day's exam FINDINGS: Portable frontal view of the chest. IMPRESSION: Support Lines: Pacer device Lungs and pleura: Unchanged bilateral airspace opacities concerning for multifocal pneumonia versus multifocal edema. No significant pneumothorax. Heart and mediastinum: Stable contours. Stable surgical changes. Additional findings: None. Signed: Crystal Damon Verified Date/Time: 07/23/2022 07:01:50 [id number] 05:38:14 Test Item Value Reference Range Interpretation Comments MAGNESIUM (BEAKER) (test code = 2.0 mg/dL 1.6-2.6 627) Rouge Mixer ID - MARCOHEPATIC FUNCTION [id number] 05:38:14 Test Item Value Reference Range Interpretation Comments TOTAL PROTEIN (BEAKER) (test code = 5.5 gm/dL 6.0-8.3 L 770) ALBUMIN (BEAKER) (test code = 1145) 2.5 g/dL 3.5-5.0 L BILIRUBIN TOTAL (BEAKER) (test code 0.7 mg/dL 0.2-1.2 = 377) BILIRUBIN DIRECT (BEAKER) (test 0.4 mg/dL 0.1-0.5 code = 706) ALKALINE PHOSPHATASE (BEAKER) (test 48 U/L 40-150 code = 346) AST (SGOT) (BEAKER) (test code = 15 U/L 5-34 353) ALT (SGPT) (BEAKER) (test code = 8 U/L 6-55 347) Rouge Mixer ID - MARCOBASIC METABOLIC [id number] 05:38:13 Test Item Value Reference Range Interpretation Comments SODIUM (BEAKER) 139 meq/L 136-145 (test code = 381) POTASSIUM 4.2 meq/L 3.5-5.1 (BEAKER) (test code = 379) CHLORIDE (BEAKER) 112 meq/L 98-107 H (test code = 382) CO2 (BEAKER) 21 meq/L 22-29 L (test code = 355) BLOOD UREA 52 mg/dL 7-21 H NITROGEN (BEAKER) (test code = 354) CREATININE 1.66 mg/dL 0.57-1.25 H (BEAKER) (test code = 358) GLUCOSE RANDOM 89 mg/dL 70-105 (BEAKER) (test code = 652) CALCIUM (BEAKER) 8.1 mg/dL 8.4-10.2 L (test code = 697) EGFR (BEAKER) 33 Interpretatio n of eGFR (test code = mL/min/1.73 values Stage De scription 1092) sq m Result G1 Mckayla l or high >=90 G2 Mildly decreased 60-89 G3a Mildl y to moderately 45-5 9 G3b Moderately to s everely 30-44 G4 Severl y decreased 15-29 G5 Kidney failure <15Reported eGF R is based on the CKD-EPI 2020 equation that d oes not use a race coefficientEsti mated GFR is not as accur ate as Creatinine Sera chao in predicting glom erular filtration rate . Estimated GFR is not appl icable for dialysis patien ts Rouge Mixer ID - MARCOPOCT-GLUCOSE [id number] 05:04:49 Test Item Value Reference Range Interpretation Comments POC-GLUCOSE METER 98 mg/dL 70-110 : TESTED A T [facility] 6720 (AKER) (test code = [facility] [place], 1538) [address]2571: Rouge Mixer/Techni tawana ID = [id number] for [facility] CBC W/PLT COUNT & AUTO [id number] 04:27:23 Test Item Value Reference Range Interpretation Comments WHITE BLOOD CELL COUNT (BEAKER) 7.6 K/ L 3.5-10.5 (test code = 775) RED BLOOD CELL COUNT (BEAKER) 2.66 M/ L 3.93-5.22 L (test code = 761) HEMOGLOBIN (BEAKER) (test code = 7.5 GM/DL 11.2-15.7 L 410) HEMATOCRIT (BEAKER) (test code = 24.5 % 34.1-44.9 L 411) MEAN CORPUSCULAR VOLUME (BEAKER) 92 fL 79-95 (test code = 753) MEAN CORPUSCULAR HEMOGLOBIN 28.2 pg 25.6-32.2 (BEAKER) (test code = 751) MEAN CORPUSCULAR HEMOGLOBIN CONC 30.6 GM/DL 32.2-35.5 L (BEAKER) (test code = 752) RED CELL DISTRIBUTION WIDTH 19.9 % 11.7-14.4 H (BEAKER) (test code = 412) PLATELET COUNT (BEAKER) (test 145 K/CU MM 150-450 L code = 756) MEAN PLATELET VOLUME (BEAKER) 12.4 fL 9.4-12.3 H (test code = 754) NUCLEATED RED BLOOD CELLS 1 /100 WBC 0-0 H (BEAKER) (test code = 413) NEUTROPHILS RELATIVE PERCENT 66 % (BEAKER) (test code = 429) LYMPHOCYTES RELATIVE PERCENT 19 % (BEAKER) (test code = 430) MONOCYTES RELATIVE PERCENT 11 % (BEAKER) (test code = 431) EOSINOPHILS RELATIVE PERCENT 4 % (BEAKER) (test code = 432) BASOPHILS RELATIVE PERCENT 1 % (BEAKER) (test code = 437) NEUTROPHILS ABSOLUTE COUNT 4.97 K/ L 1.56-6.13 (BEAKER) (test code = 670) LYMPHOCYTES ABSOLUTE COUNT 1.44 K/ L 1.18-3.74 (BEAKER) (test code = 414) MONOCYTES ABSOLUTE COUNT (BEAKER) 0.80 K/ L 0.24-0.36 H (test code = 415) EOSINOPHILS ABSOLUTE COUNT 0.30 K/ L 0.04-0.36 (BEAKER) (test code = 416) BASOPHILS ABSOLUTE COUNT (BEAKER) 0.04 K/ L 0.01-0.08 (test code = 417) IMMATURE GRANULOCYTES-RELATIVE 0.50 % 0.00-1.00 PERCENT (BEAKER) (test code = 2801) POCT-GLUCOSE [id number] 21:33:23 Test Item Value Reference Range Interpretation Comments POC-GLUCOSE METER 116 mg/dL 70-110 H : TESTED A T [facility] 6720 (BEAKER) (test code = [facility], 153) [id number]: [employer]er/Techni tawana ID = [id number] for CR SEVERO, ETTA POCT-GLUCOSE [id number] 17:28:28 Test Item Value Reference Range Interpretation Comments POC-GLUCOSE METER 110 mg/dL 70-110 : TESTED A T [facility] (BEAKER) (test code = [facility], 153) 92151: Rouge Mixer/Techni tawana ID = [id number] for [place] LLIS, SAMY POCT-GLUCOSE [id number] 12:11:57 Test Item Value Reference Range Interpretation Comments POC-GLUCOSE METER 101 mg/dL 70-110 : TESTED A T [facility] 6720 (BEAKER) (test code = [facility] [place], 1538) [address]: [employer] Mixer/Techni tawana ID = [id number] for SAMY CABRERA POCT-GLUCOSE [id number] 08:14:49 Test Item Value Reference Range Interpretation Comments POC-GLUCOSE METER 89 mg/dL 70-110 : TESTED A T [facility] (BEAKER) (test code = [facility] [place], 1538) [address]: [employer]er/Techni tawana ID = [id number] for WILLIE NICHOLS SAMY BASIC METABOLIC [id number] 05:57:50 Test Item Value Reference Range Interpretation Comments SODIUM (BEAKER) 141 meq/L 136-145 (test code = 381) POTASSIUM 5.0 meq/L 3.5-5.1 (BEAKER) (test code = 379) CHLORIDE (BEAKER) 110 meq/L 98-107 H (test code = 382) CO2 (BEAKER) 21 meq/L 22-29 L (test code = 355) BLOOD UREA 63 mg/dL 7-21 H NITROGEN (BEAKER) (test code = 354) CREATININE 2.19 mg/dL 0.57-1.25 H (BEAKER) (test code = 358) GLUCOSE RANDOM 85 mg/dL 70-105 (BEAKER) (test code = 652) CALCIUM (BEAKER) 9.1 mg/dL 8.4-10.2 (test code = 697) EGFR (BEAKER) 23 Interpretatio n of eGFR (test code = mL/min/1.73 values Stage De scription 1092) sq m Result G1 Mckayla l or high >=90 G2 Mildly decreased 60-89 G3a Mildl y to moderately 45-5 9 G3b Moderately to s everely 30-44 G4 Severl y decreased 15-29 G5 Kidney failure <15Reported eGF R is based on the CKD-EPI 2021 equation that d oes not use a race coefficientEsti mated GFR is not as accur ate as Creatinine Sera chao in predicting glom erular filtration rate . Estimated GFR is not appl icable for dialysis patien ts [employer] ID - [id number] 05:55:16 Test Item Value Reference Range Interpretation Comments MAGNESIUM (BEAKER) (test code = 2.2 mg/dL 1.6-2.6 627) [employer]er ID - MMHEPATIC FUNCTION [id number] 05:55:16 Test Item Value Reference Range Interpretation Comments TOTAL PROTEIN (BEAKER) (test code = 6.3 gm/dL 6.0-8.3 770) ALBUMIN (BEAKER) (test code = 1145) 2.9 g/dL 3.5-5.0 L BILIRUBIN TOTAL (BEAKER) (test code 0.8 mg/dL 0.2-1.2 = 377) BILIRUBIN DIRECT (BEAKER) (test 0.4 mg/dL 0.1-0.5 code = 706) ALKALINE PHOSPHATASE (BEAKER) (test 53 U/L 40-150 code = 346) AST (SGOT) (BEAKER) (test code = 17 U/L 5-34 353) ALT (SGPT) (BEAKER) (test code = 10 U/L 6-55 347) [employer]er ID - M[facility]BC W/PLT COUNT & AUTO [id number] 05:43:35 Test Item Value Reference Range Interpretation Comments WHITE BLOOD CELL COUNT (BEAKER) 8.6 K/ L 3.5-10.5 (test code = 775) RED BLOOD CELL COUNT (BEAKER) 2.90 M/ L 3.93-5.22 L (test code = 761) HEMOGLOBIN (BEAKER) (test code = 8.0 GM/DL 11.2-15.7 L 410) HEMATOCRIT (BEAKER) (test code = 26.1 % 34.1-44.9 L 411) MEAN CORPUSCULAR VOLUME (BEAKER) 90 fL 79-95 (test code = 753) MEAN CORPUSCULAR HEMOGLOBIN 27.6 pg 25.6-32.2 (BEAKER) (test code = 751) MEAN CORPUSCULAR HEMOGLOBIN CONC 30.7 GM/DL 32.2-35.5 L (BEAKER) (test code = 752) RED CELL DISTRIBUTION WIDTH 19.6 % 11.7-14.4 H (BEAKER) (test code = 412) PLATELET COUNT (BEAKER) (test 130 K/CU MM 150-450 L code = 756) MEAN PLATELET VOLUME (BEAKER) 11.5 fL 9.4-12.3 (test code = 754) NUCLEATED RED BLOOD CELLS 1 /100 WBC 0-0 H (BEAKER) (test code = 413) NEUTROPHILS RELATIVE PERCENT 71 % (BEAKER) (test code = 429) LYMPHOCYTES RELATIVE PERCENT 15 % (BEAKER) (test code = 430) MONOCYTES RELATIVE PERCENT 11 % (BEAKER) (test code = 431) EOSINOPHILS RELATIVE PERCENT 2 % (BEAKER) (test code = 432) BASOPHILS RELATIVE PERCENT 1 % (BEAKER) (test code = 437) NEUTROPHILS ABSOLUTE COUNT 6.07 K/ L 1.56-6.13 (BEAKER) (test code = 670) LYMPHOCYTES ABSOLUTE COUNT 1.26 K/ L 1.18-3.74 (BEAKER) (test code = 414) MONOCYTES ABSOLUTE COUNT (BEAKER) 0.93 K/ L 0.24-0.36 H (test code = 415) EOSINOPHILS ABSOLUTE COUNT 0.20 K/ L 0.04-0.36 (BEAKER) (test code = 416) BASOPHILS ABSOLUTE COUNT (BEAKER) 0.05 K/ L 0.01-0.08 (test code = 417) IMMATURE GRANULOCYTES-RELATIVE 0.60 % 0.00-1.00 PERCENT (BEAKER) (test code = 2801) POCT-GLUCOSE [id number] 21:26:19 Test Item Value Reference Range Interpretation Comments POC-GLUCOSE METER 99 mg/dL 70-110 : TESTED A T [facility] 6720 (BEAKER) (test code = [facility], 153) 99288: Rouge Mixer/Techni tawana ID = [id number] for BHARATHI WELL, TIA POCT-GLUCOSE [id number] 16:54:20 Test Item Value Reference Range Interpretation Comments POC-GLUCOSE METER 115 mg/dL 70-110 H : TESTED A T [facility] 6720 (BEAKER) (test code = [facility], 1538) 92646: [employer] Mixer/Techni tawana ID = [id number] for [place] LLIS, SAMY POCT-GLUCOSE [id number] 12:12:52 Test Item Value Reference Range Interpretation Comments POC-GLUCOSE METER 118 mg/dL 70-110 H : TESTED A T [facility]20 (BEAKER) (test code = [facility], 1538) 45591: [employer] Mixer/Techni tawana ID = [id number] for [place] LLIS, SAMY POCT-GLUCOSE [id number] 08:15:35 Test Item Value Reference Range Interpretation Comments POC-GLUCOSE METER 123 mg/dL 70-110 H : TESTED A T [facility] [facility] 6720 (BEAKER) (test code = RADHA [place]ULER [place], 1538) [address]: Rouge Mixer/Techni tawana ID = [id number] for SAMY CABRERA BASIC METABOLIC [id number] 05:48:39 Test Item Value Reference Range Interpretation Comments SODIUM (BEAKER) 140 meq/L 136-145 (test code = 381) POTASSIUM 4.8 meq/L 3.5-5.1 (BEAKER) (test code = 379) CHLORIDE (BEAKER) 111 meq/L 98-107 H (test code = 382) CO2 (BEAKER) 21 meq/L 22-29 L (test code = 355) BLOOD UREA 65 mg/dL 7-21 H NITROGEN (BEAKER) (test code = 354) CREATININE 2.31 mg/dL 0.57-1.25 H (BEAKER) (test code = 358) GLUCOSE RANDOM 118 mg/dL 70-105 H (BEAKER) (test code = 652) CALCIUM (BEAKER) 9.0 mg/dL 8.4-10.2 (test code = 697) EGFR (BEAKER) 22 Interpretatio n of eGFR (test code = mL/min/1.73 values Stage De scription 1092) sq m Result G1 Mckayla l or high >=90 G2 Mildly decreased 60-89 G3a Mildl y to moderately 45-5 9 G3b Moderately to s everely 30-44 G4 Severl y decreased 15-29 G5 Kidney failure <15Reported eGF R is based on the CKD-EPI 2021 equation that d oes not use a race coefficientEsti mated GFR is not as accur ate as Creatinine Sera chao in predicting glom erular filtration rate . Estimated GFR is not appl icable for dialysis patien ts Rouge Mixer ID - [id number] 05:44:22 Test Item Value Reference Range Interpretation Comments MAGNESIUM (BEAKER) (test code = 2.2 mg/dL 1.6-2.6 627) Rouge [employer]er ID - MMHEPATIC FUNCTION [id number] 05:44:22 Test Item Value Reference Range Interpretation Comments TOTAL PROTEIN (BEAKER) (test code = 6.1 gm/dL 6.0-8.3 770) ALBUMIN (BEAKER) (test code = 1145) 2.8 g/dL 3.5-5.0 L BILIRUBIN TOTAL (BEAKER) (test code 0.9 mg/dL 0.2-1.2 = 377) BILIRUBIN DIRECT (BEAKER) (test 0.4 mg/dL 0.1-0.5 code = 706) ALKALINE PHOSPHATASE (BEAKER) (test 48 U/L 40-150 code = 346) AST (SGOT) (BEAKER) (test code = 19 U/L 5-34 353) ALT (SGPT) (BEAKER) (test code = 11 U/L 6-55 347) Rouge [employer]er ID - MMCBC W/PLT COUNT & AUTO [id number] 05:04:41 Test Item Value Reference Range Interpretation Comments WHITE BLOOD CELL COUNT (BEAKER) 10.1 K/ L 3.5-10.5 (test code = 775) RED BLOOD CELL COUNT (BEAKER) 2.82 M/ L 3.93-5.22 L (test code = 761) HEMOGLOBIN (BEAKER) (test code = 7.9 GM/DL 11.2-15.7 L 410) HEMATOCRIT (BEAKER) (test code = 25.9 % 34.1-44.9 L 411) MEAN CORPUSCULAR VOLUME (BEAKER) 92 fL 79-95 (test code = 753) MEAN CORPUSCULAR HEMOGLOBIN 28.0 pg 25.6-32.2 (BEAKER) (test code = 751) MEAN CORPUSCULAR HEMOGLOBIN CONC 30.5 GM/DL 32.2-35.5 L (BEAKER) (test code = 752) RED CELL DISTRIBUTION WIDTH 19.4 % 11.7-14.4 H (BEAKER) (test code = 412) PLATELET COUNT (BEAKER) (test 120 K/CU MM 150-450 L code = 756) MEAN PLATELET VOLUME (BEAKER) 12.5 fL 9.4-12.3 H (test code = 754) NUCLEATED RED BLOOD CELLS 0 /100 WBC 0-0 (BEAKER) (test code = 413) NEUTROPHILS RELATIVE PERCENT 73 % (BEAKER) (test code = 429) LYMPHOCYTES RELATIVE PERCENT 13 % (BEAKER) (test code = 430) MONOCYTES RELATIVE PERCENT 11 % (BEAKER) (test code = 431) EOSINOPHILS RELATIVE PERCENT 2 % (BEAKER) (test code = 432) BASOPHILS RELATIVE PERCENT 1 % (BEAKER) (test code = 437) NEUTROPHILS ABSOLUTE COUNT 7.41 K/ L 1.56-6.13 H (BEAKER) (test code = 670) LYMPHOCYTES ABSOLUTE COUNT 1.29 K/ L 1.18-3.74 (BEAKER) (test code = 414) MONOCYTES ABSOLUTE COUNT (BEAKER) 1.07 K/ L 0.24-0.36 H (test code = 415) EOSINOPHILS ABSOLUTE COUNT 0.17 K/ L 0.04-0.36 (BEAKER) (test code = 416) BASOPHILS ABSOLUTE COUNT (BEAKER) 0.07 K/ L 0.01-0.08 (test code = 417) IMMATURE GRANULOCYTES-RELATIVE 0.80 % 0.00-1.00 PERCENT (BEAKER) (test code = 2801) POCT-GLUCOSE [id number] 04:46:54 Test Item Value Reference Range Interpretation Comments POC-GLUCOSE METER 125 mg/dL 70-110 H : TESTED A T [facility] 6720 (BEAKER) (test code = RADHA SCHULER [place], 1538) [address]: Rouge Mixer/Techni tawana ID = [id number] for KENNEDY Workman Prepare [id number] 23:54:00 Test Item Value Reference Range Interpretation Comments CROSSMATCH (test code = 2264) COMPATIBLE Unit ABO (test code = B Pos [id number]) UNIT NUMBER (test code = [id number] 934-0) Status (test code = 4024773) TX_TIMEINCHART Blood Bank Product (test code RED BLOOD CELLS = 2263) PRODUCT CODE (test code = [id number] 933-2) [id number] 23:54:00 Test Item Value Reference Range Interpretation Comments CROSSMATCH (test code = 2264) COMPATIBLE Unit ABO (test code = B Pos 1137129) UNIT NUMBER (test code = [id number] 934-0) Status (test code = 2305191) TX_TIMEINCHART Blood Bank Product (test code RED BLOOD CELLS = 2263) PRODUCT CODE (test code = [id number] 933-2) [facility] [id number] 23:54:00 Test Item Value Reference Range Interpretation Comments CROSSMATCH (test code = 2264) COMPATIBLE Unit ABO (test code = B Pos 4000456) UNIT NUMBER (test code = [id number] 934-0) Status (test code = 3102066) TX_TIMEINCHART Blood Bank Product (test code RED BLOOD CELLS = 2263) PRODUCT CODE (test code = [id number] 933-2) [facility] [id number] 23:54:00 Test Item Value Reference Range Interpretation Comments CROSSMATCH (test code = 2264) COMPATIBLE Unit ABO (test code = B Pos 7490953) UNIT NUMBER (test code = [id number] 934-0) Status (test code = 0654037) TX_TIMEINCHART Blood Bank Product (test code RED BLOOD CELLS = 2263) PRODUCT CODE (test code = [id number] 933-2) [facility] [id number] 23:54:00 Test Item Value Reference Range Interpretation Comments CROSSMATCH (test code = 2264) COMPATIBLE Unit ABO (test code = B Pos 1160325) UNIT NUMBER (test code = [id number] 934-0) Status (test code = 5715641) TX_TIMEINCHART Blood Bank Product (test code RED BLOOD CELLS = 2263) PRODUCT CODE (test code = A4212U07 933-2) [facility] [id number] 23:54:00 Test Item Value Reference Range Interpretation Comments CROSSMATCH (test code = 2264) COMPATIBLE Unit ABO (test code = B Pos 7509792) UNIT NUMBER (test code = [id number] 934-0) Status (test code = 0789152) TX_TIMEINCHART Blood Bank Product (test code RED BLOOD CELLS = 2263) PRODUCT CODE (test code = B8775U28 933-2) [facility] [id number] 23:54:00 Test Item Value Reference Range Interpretation Comments CROSSMATCH (test code = 2264) COMPATIBLE Unit ABO (test code = B Pos 9377795) UNIT NUMBER (test code = [id number] 934-0) Status (test code = 9039216) TX_TIMEINCHART Blood Bank Product (test code RED BLOOD CELLS = 2263) PRODUCT CODE (test code = R6566Z59 933-2) [facility] [id number] 21:51:36 Test Item Value Reference Range Interpretation Comments POC-GLUCOSE METER 133 mg/dL 70-110 H : Notified RN/MD: (JACOBO) (test code = TESTED AT [facility] 6720 1538) [facility], [address]: Rouge Mixer/Techni tawana ID = [id number] for Gio Castro POCT-GLUCOSE [id number] 16:34:22 Test Item Value Reference Range Interpretation Comments POC-GLUCOSE METER 102 mg/dL 70-110 : TESTED A T [facility] 6720 ([facility]) (test code = RADHA Riddle [facility], 1538) [address]: Rouge Mixer/Techni tawana ID = [id number] for MELE Rankin SARS-CoV2/RT-PCR (Asymptomatic ONLY)2022-07-20 13:38:21 Test Item Value Reference Interpretation Comments Range SARS-COV2/RT-PCR Negative Negative The SARS-Co V-2 (test code = target nucleic 57880-5) acids are not detected in thi s specimen. Negat randolph results do not preclude SARS-C oV-2 infection and should not be u sed as the sole bas is for patient management decisions. Nega tive results must be combined with clinical observations, patient history , and epidemiolog ical information. A false negative result may occu r if a specimen is improperly collected, transported or handled. This S ARS CoV-2 test is a rapid, real-alex e RT-PCR test intended for e qualitative detection of nucleic acid fr om SARS-CoV-2 in a nasopharyngeal swab specimen colle angelina from individual s suspected of COVID-19 by the ir healthcare provider. KRYSTINA (test code = This test has been KRYSTINA) authorized by FDA under an EUA for use by authorized laboratories. This test is only authorized for the duration of the declaration that circumstances exist justifying the authorization of emergency use of in vitro diagnostic tests for detection and/or diagnosis of COVID-19 under Section 564(b)(1) of the Federal Food, Drug and Cosmetic Act, 21 U.S.C. 360bbb-3(b)(1), unless the authorization is terminated or revoked sooner. Fact Sheet for Healthcare Providers: https://www.[employer]/Documents/Xp ert%20Xpress%20SAR S%20CoV-2/Fact%20S heets/302-3802%20S ARS-COV-2%20HEALTH CARE%20PROVIDERS%2 0FACT%20SHEET.pdf Fact Sheet for Healthcare Patients: https://www.[employer]/Documents/Xp ert%20Xpress%20SAR S%20CoV-2/Fact%20S heets/302-3801%20S ARS-COV-2%20PATIEN T%20FACT%20SHEET.p df Lab Interpretation Normal (test code = 27759-5) [facility] 13:38:21 Test Item Value Reference Interpretation Comments Range SARS-COV2/RT-PCR Negative Negative The SARS-Co V-2 (test code = target nucleic 75691-2) acids are not detected in thi s specimen. Negat randolph results do not preclude SARS-C oV-2 infection and should not be u sed as the sole bas is for patient management decisions. Nega tive results must be combined with clinical observations, patient history , and epidemiolog ical information. A false negative result may occu r if a specimen is improperly collected, transported or handled. This S ARS CoV-2 test is a rapid, real-alex e RT-PCR test intended for th e qualitative detection of nucleic acid fr om SARS-CoV-2 in a nasopharyngeal swab specimen collec angelina from individual s suspected of COVID-19 by the ir healthcare provider. KRYSTINA (test code = This test has been KRYSTINA) authorized by FDA under an EUA for use by authorized laboratories. This test is only authorized for the duration of the declaration that circumstances exist justifying the authorization of emergency use of in vitro diagnostic tests for detection and/or diagnosis of COVID-19 under Section 564(b)(1) of the Federal Food, Drug and Cosmetic Act, 21 U.S.C. 360bbb-3(b)(1), unless the authorization is terminated or revoked sooner. Fact Sheet for Healthcare Providers: https://www.[employer]/Documents/Xp ert%20Xpress%20SAR S%20CoV-2/Fact%20S heets/302-3802%20S ARS-COV-2%20HEALTH CARE%20PROVIDERS%2 0FACT%20SHEET.pdf Fact Sheet for Healthcare Patients: https://www.[employer]/Documents/Xp ert%20Xpress%20SAR S%20CoV-2/Fact%20S heets/302-3801%20S ARS-COV-2%20PATIEN T%20FACT%20SHEET.p df Lab Interpretation Normal (test code = 84748-8) [facility]20 13:38:21 Test Item Value Reference Interpretation Comments Range SARS-COV2/RT-PCR Negative Negative The SARS-Co V-2 (test code = target nucleic 23708-2) acids are not detected in thi s specimen. Negat randolph results do not preclude SARS-C oV-2 infection and should not be u sed as the sole bas is for patient management decisions. Nega tive results must be combined with clinical observations, patient history , and epidemiolog ical information. A false negative result may occu r if a specimen is improperly collected, transported or handled. This S ARS CoV-2 test is a rapid, real-alex e RT-PCR test intended for th e qualitative detection of nucleic acid fr om SARS-CoV-2 in a nasopharyngeal swab specimen [facility] from individual s suspected of COVID-19 by the ir healthcare provider. KRYSTINA (test code = This test has been KRYSTINA) authorized by FDA under an EUA for use by authorized laboratories. This test is only authorized for the duration of the declaration that circumstances exist justifying the authorization of emergency use of in vitro diagnostic tests for detection and/or diagnosis of COVID-19 under Section 564(b)(1) of the Federal Food, Drug and Cosmetic Act, 21 U.S.C. 360bbb-3(b)(1), unless the authorization is terminated or revoked sooner. Fact Sheet for Healthcare Providers: https://www.[employer]/Documents/Xp ert%20Xpress%20SAR S%20CoV-2/Fact%20S heets/302-3802%20S ARS-COV-2%20HEALTH CARE%20PROVIDERS%2 0FACT%20SHEET.pdf Fact Sheet for Healthcare Patients: https://www.[employer]/Documents/Xp ert%20Xpress%20SAR S%20CoV-2/Fact%20S heets/302-3801%20S ARS-COV-2%20PATIEN T%20FACT%20SHEET.p df Lab Interpretation Normal (test code = 67235-6) [facility]20 13:38:21 Test Item Value Reference Interpretation Comments Range SARS-COV2/RT-PCR Negative Negative The SARS-Co V-2 (test code = target nucleic 79349-7) acids are not detected in thi s specimen. Negat randolph results do not preclude SARS-C oV-2 infection and should not be u sed as the sole bas is for patient management decisions. Nega tive results must be combined with clinical observations, patient history , and epidemiolog ical information. A false negative result may occu r if a specimen is improperly collected, transported or handled. This S ARS CoV-2 test is a rapid, real-alex e RT-PCR test intended for th e qualitative detection of nucleic acid fr om SARS-CoV-2 in a nasopharyngeal swab specimen colle angelina from individual s suspected of COVID-19 by the ir healthcare provider. KRYSTINA (test code = This test has been KRYSTINA) authorized by FDA under an EUA for use by authorized laboratories. This test is only authorized for the duration of the declaration that circumstances exist justifying the authorization of emergency use of in vitro diagnostic tests for detection and/or diagnosis of COVID-19 under Section 564(b)(1) of the Federal Food, Drug and Cosmetic Act, 21 U.S.C. 360bbb-3(b)(1), unless the authorization is terminated or revoked sooner. Fact Sheet for Healthcare Providers: https://www.[employer]/Documents/Xp ert%20Xpress%20SAR S%20CoV-2/Fact%20S heets/302-3802%20S ARS-COV-2%20HEALTH CARE%20PROVIDERS%2 0FACT%20SHEET.pdf Fact Sheet for Healthcare Patients: https://www.[employer]/Documents/Xp ert%20Xpress%20SAR S%20CoV-2/Fact%20S heets/302-3801%20S ARS-COV-2%20PATIEN T%20FACT%20SHEET.p df Lab Interpretation Normal (test code = 06745-4) [facility]20 13:38:21 Test Item Value Reference Interpretation Comments Range SARS-COV2/RT-PCR Negative Negative The SARS-Co V-2 (test code = target nucleic 43868-2) acids are not detected in thi s specimen. Negat randolph results do not preclude SARS-C oV-2 infection and should not be u sed as the sole bas is for patient management decisions. Nega tive results must be combined with clinical observations, patient history , and epidemiolog ical information. A false negative result may occu r if a specimen is improperly collected, transported or handled. This S ARS CoV-2 test is a rapid, real-alex e RT-PCR test intended for th e qualitative detection of nucleic acid fr om SARS-CoV-2 in a nasopharyngeal swab specimen collec angelina from individual s suspected of COVID-19 by the ir healthcare provider. KRYSTINA (test code = This test has been KRYSTINA) authorized by FDA under an EUA for use by authorized laboratories. This test is only authorized for the duration of the declaration that circumstances exist justifying the authorization of emergency use of in vitro diagnostic tests for detection and/or diagnosis of COVID-19 under Section 564(b)(1) of the Federal Food, Drug and Cosmetic Act, 21 U.S.C. 360bbb-3(b)(1), unless the authorization is terminated or revoked sooner. Fact Sheet for Healthcare Providers: https://www.[employer]/Documents/Xp ert%20Xpress%20SAR S%20CoV-2/Fact%20S heets/302-3802%20S ARS-COV-2%20HEALTH CARE%20PROVIDERS%2 0FACT%20SHEET.pdf Fact Sheet for Healthcare Patients: https://www.[employer]/Documents/Xp ert%20Xpress%20SAR S%20CoV-2/Fact%20S heets/3023801%20S ARS-COV-2%20PATIEN T%20FACT%20SHEET.p df Lab Interpretation Normal (test code = 44058-4) [facility]22-[facility]20 13:38:21 Test Item Value Reference Interpretation Comments Range SARS-COV2/RT-PCR Negative Negative The SARS-Co V-2 (test code = target nucleic 08594-3) acids are not detected in thi s specimen. Negat randolph results do not preclude SARS-C oV-2 infection and should not be u sed as the sole bas is for patient management decisions. Nega tive results must be combined with clinical observations, patient history , and epidemiolog ical information. A false negative result may occu r if a specimen is improperly collected, transported or handled. This S ARS CoV-2 test is a rapid, real-alex e RT-PCR test intended for th e qualitative detection of nucleic acid fr om SARS-CoV-2 in a nasopharyngeal swab specimen colle angelina from individual s suspected of COVID-19 by the ir healthcare provider. KRYSTINA (test code = This test has been KRYSTINA) authorized by FDA under an EUA for use by authorized laboratories. This test is only authorized for the duration of the declaration that circumstances exist justifying the authorization of emergency use of in vitro diagnostic tests for detection and/or diagnosis of COVID-19 under Section 564(b)(1) of the Federal Food, Drug and Cosmetic Act, 21 U.S.C. 360bbb-3(b)(1), unless the authorization is terminated or revoked sooner. Fact Sheet for Healthcare Providers: https://www.[employer]/Documents/Xp ert%20Xpress%20SAR S%20CoV-2/Fact%20S heets/3023802%20S ARS-COV-2%20HEALTH CARE%20PROVIDERS%2 0FACT%20SHEET.pdf Fact Sheet for Healthcare Patients: https://www.[employer]/Documents/Xp ert%20Xpress%20SAR S%20CoV-2/Fact%20S heets/302-3801%20S ARS-COV-2%20PATIEN T%20FACT%20SHEET.p df Lab Interpretation Normal (test code = 63765-0) [facility]20 13:38:21 Test Item Value Reference Interpretation Comments Range SARS-COV2/RT-PCR Negative Negative The SARS-Co V-2 (test code = target nucleic 84488-1) acids are not detected in thi s specimen. Negat randolph results do not preclude SARS-C oV-2 infection and should not be u sed as the sole bas is for patient management decisions. Nega tive results must be combined with clinical observations, patient history , and epidemiolog ical information. A false negative result may occu r if a specimen is improperly collected, transported or handled. This S ARS CoV-2 test is a rapid, real-alex e RT-PCR test intended for th e qualitative detection of nucleic acid fr om SARS-CoV-2 in a nasopharyngeal swab specimen collec angelina from individual s suspected of COVID-19 by the ir healthcare provider. KRYSTINA (test code = This test has been KRYSTINA) authorized by FDA under an EUA for use by authorized laboratories. This test is only authorized for the duration of the declaration that circumstances exist justifying the authorization of emergency use of in vitro diagnostic tests for detection and/or diagnosis of COVID-19 under Section 564(b)(1) of the Federal Food, Drug and Cosmetic Act, 21 U.S.C. 360bbb-3(b)(1), unless the authorization is terminated or revoked sooner. Fact Sheet for Healthcare Providers: https://www.[employer]/Documents/Xp ert%20Xpress%20SAR S%20CoV-2/Fact%20S heets/302-3802%20S ARS-COV-2%20HEALTH CARE%20PROVIDERS%2 0FACT%20SHEET.pdf Fact Sheet for Healthcare Patients: https://www.[employer]/Documents/Xp ert%20Xpress%20SAR S%20CoV-2/Fact%20S heets/302-3801%20S ARS-COV-2%20PATIEN T%20FACT%20SHEET.p df Lab Interpretation Normal (test code = 76555-0) [facility]2022-07-20 13:38:21 Test Item Value Reference Range Interpretation Comments SARS-COV2/RT-PCR Negative Negative The SARS-Co V-2 target (test code = nucleic acids a re not 5500806) detected in thi s specimen. Negative result s do not preclude SARS-C oV-2 infection and s hould not be used as the aris e basis for patient managem ent decisions. Nega tive results must be combine d with clinical observ ations, patient history , and epidemiological information. A false negativ e result may occur if a spec imen is improperly latasha ected, transported or handled. This SARS CoV-2 test is a rapid, real-time RT-PC R test intended for th e qualitative detection of nu cleic acid from SARS-CoV-2 in a nasopharyngeal swab specimen collected from individuals suspected of CO VID-19 by their healthcar e provider. This test has been authorized by FDA under an EUA for use by authorized laboratories. This test is only authorized for the duration of the declaration that circumstances exist justifying the authorization of emergency use of in vitro diagnostic tests for detection and/or diagnosis of COVID-19 under Section 564(b)(1) of the Federal Food, Drug and Cosmetic Act, 21 U.S.C. 360bbb-3(b)(1), unless the authorization is terminated or revoked sooner. Fact Sheet for Healthcare Providers: https://www.[employer] m/Documents/Xpert%20Xpress%20SARS%20CoV-2/Fact%20Sheets/302-3802%01JGLP-HEZ-2%20 HEALTHCARE%20PROVIDERS%20FACT%20SHEET.pdf Fact Sheet for Healthcare Patients: https://www.[employer]/Documents/Xpert%20Xp ress%20SARS%20CoV-2/Fact%20Sheets/302-3801%26IQRQ-YMZ-6%20PATIENT%20FACT%20SHEET .pdfPOCT-GLUCOSE [id number] 11:54:15 Test Item Value Reference Range Interpretation Comments POC-GLUCOSE METER 105 mg/dL 70-110 : [facility]ER[facility] (test code = [facility], 1538) [address]: Rouge Mixer/Techni tawana ID = [id number] for Yoon-LANDAVERD E, MELE POC-Glucose [id number] 08:19:30 Test Item Value Reference Range Interpretation Comments POC-Glucose Meter (test 84 mg/dL 70-110 : TE STED AT [facility] code = 1538) 20 [facility], [facility] 30: Rouge Mixer/Techni tawana ID = [id number] for Yoon-LANDAVERD E, MELE Lab Interpretation (test Normal code = 49035-4) [facility] [id number] 08:19:30 Test Item Value Reference Range Interpretation Comments POC-Glucose Meter (test 84 mg/dL 70-110 : TE STED AT [facility] code = 1538) [address] [place] [address], [facility] 30: Rouge Mixer/Techni tawana ID = [id number] for Yoon-LANDAVERD E, MELE Lab Interpretation (test Normal code = 58838-9) [facility]SE [id number] 08:19:30 Test Item Value Reference Range Interpretation Comments POC-GLUCOSE METER 84 mg/dL 70-110 : TESTED A T [facility] 6720 (BEAKER) (test code = [facility], 1538) [address]: [employer] Mixer/Techni tawana ID = [id number] for Yoon-LANDAVERD E, MELE COMPREHENSIVE METABOLIC [id number] 07:39:03 Test Item Value Reference Range Interpretation Comments TOTAL PROTEIN 6.0 gm/dL 6.0-8.3 (BEAKER) (test code = 770) ALBUMIN (BEAKER) 2.8 g/dL 3.5-5.0 L (test code = 1145) ALKALINE 50 U/L 40-150 PHOSPHATASE (BEAKER) (test code = 346) BILIRUBIN TOTAL 1.0 mg/dL 0.2-1.2 (BEAKER) (test code = 377) SODIUM (BEAKER) 141 meq/L 136-145 (test code = 381) POTASSIUM (BEAKER) 4.7 meq/L 3.5-5.1 (test code = 379) CHLORIDE (BEAKER) 109 meq/L 98-107 H (test code = 382) CO2 (BEAKER) (test 21 meq/L 22-29 L code = 355) BLOOD UREA 64 mg/dL 7-21 H NITROGEN (BEAKER) (test code = 354) CREATININE 2.36 mg/dL 0.57-1.25 H (BEAKER) (test code = 358) GLUCOSE RANDOM 80 mg/dL 70-105 (BEAKER) (test code = 652) CALCIUM (BEAKER) 9.3 mg/dL 8.4-10.2 (test code = 697) AST (SGOT) 17 U/L 5-34 (BEAKER) (test code = 353) ALT (SGPT) 15 U/L 6-55 (BEAKER) (test code = 347) EGFR (BEAKER) 21 Interpretatio n of eGFR (test code = 1092) mL/min/1.[address] age Description sq m Result G1 Mckayla l or high >=90 G2 Mildly decreased 60-89 G3a Mildl y to moderately 45-5 9 G3b Moderately to s everely 30-44 G4 Severl y decreased 15-29 G5 Kidney failure <15Reported eGF R is based on the CKD-EPI 2020 equation that d oes not use a race coefficientEsti mated GFR is not as accur ate as Creatinine Sera guidry in predicting glom erular filtration rate . Estimated GFR is not appl icable for dialysis patien ts [employer] Mixer ID - [id number] 07:28:41 Test Item Value Reference Range Interpretation Comments MAGNESIUM (BEAKER) (test code = 2.1 mg/dL 1.6-2.6 627) Rouge [employer]er ID - MARIOCBC W/PLT COUNT & AUTO [id number] 06:16:52 Test Item Value Reference Range Interpretation Comments WHITE BLOOD CELL COUNT (BEAKER) 13.1 K/ L 3.5-10.5 H (test code = 775) RED BLOOD CELL COUNT (BEAKER) 2.95 M/ L 3.93-5.22 L (test code = 761) HEMOGLOBIN (BEAKER) (test code = 8.4 GM/DL 11.2-15.7 L 410) HEMATOCRIT (BEAKER) (test code = 26.6 % 34.1-44.9 L 411) MEAN CORPUSCULAR VOLUME (BEAKER) 90 fL 79-95 (test code = 753) MEAN CORPUSCULAR HEMOGLOBIN 28.5 pg 25.6-32.2 (BEAKER) (test code = 751) MEAN CORPUSCULAR HEMOGLOBIN CONC 31.6 GM/DL 32.2-35.5 L (BEAKER) (test code = 752) RED CELL DISTRIBUTION WIDTH 19.6 % 11.7-14.4 H (BEAKER) (test code = 412) PLATELET COUNT (BEAKER) (test 132 K/CU MM 150-450 L code = 756) MEAN PLATELET VOLUME (BEAKER) 11.9 fL 9.4-12.3 (test code = 754) NUCLEATED RED BLOOD CELLS 0 /100 WBC 0-0 (BEAKER) (test code = 413) NEUTROPHILS RELATIVE PERCENT 80 % (BEAKER) (test code = 429) LYMPHOCYTES RELATIVE PERCENT 9 % (BEAKER) (test code = 430) MONOCYTES RELATIVE PERCENT 10 % (BEAKER) (test code = 431) EOSINOPHILS RELATIVE PERCENT 0 % (BEAKER) (test code = 432) BASOPHILS RELATIVE PERCENT 1 % (BEAKER) (test code = 437) NEUTROPHILS ABSOLUTE COUNT 10.45 K/ L 1.56-6.13 H (BEAKER) (test code = 670) LYMPHOCYTES ABSOLUTE COUNT 1.13 K/ L 1.18-3.74 L (BEAKER) (test code = 414) MONOCYTES ABSOLUTE COUNT (BEAKER) 1.36 K/ L 0.24-0.36 H (test code = 415) EOSINOPHILS ABSOLUTE COUNT 0.00 K/ L 0.04-0.36 L (BEAKER) (test code = 416) BASOPHILS ABSOLUTE COUNT (BEAKER) 0.06 K/ L 0.01-0.08 (test code = 417) IMMATURE GRANULOCYTES-RELATIVE 0.40 % 0.00-1.00 PERCENT (BEAKER) (test code = 2801) POCT-GLUCOSE [id number] 03:37:18 Test Item Value Reference Range Interpretation Comments POC-GLUCOSE METER 82 mg/dL 70-110 : TESTED A T [facility] 6720 (BEAKER) (test code = RADHA [place]ULER [place], 1538) [address]: Rouge Mixer/Techni tawana ID = [id number] for BUNNY MARQUES (V)DAVIS POCT-GLUCOSE [id number] 21:53:24 Test Item Value Reference Range Interpretation Comments POC-GLUCOSE METER 117 mg/dL 70-110 H : Notified RN/MD: ([facility]) (test code = TESTED AT [facility] 6720 1538) [facility], [address]: Rouge Mixer/Techni tawana ID = [id number] for Gio Castro POCT-GLUCOSE [id number] 16:32:39 Test Item Value Reference Range Interpretation Comments POC-GLUCOSE METER 110 mg/dL 70-110 : TESTED A T [facility] 6720 ([facility]) (test code = RADHA Riddle [facility], 153) [address]: Rouge Mixer/Techni tawana ID = [id number] for MELE Rankin CBC (HEMOGRAM ONLY)2022-07-19 14:39:34 Test Item Value Reference Range Interpretation Comments WHITE BLOOD CELL COUNT 8.0 K/ L 3.5-10.5 (BEAKER) (test code = 775) RED BLOOD CELL COUNT 3.35 M/ L 3.93-5.22 L (BEAKER) (test code = 761) HEMOGLOBIN (BEAKER) 9.4 GM/DL 11.2-15.7 L (test code = 410) HEMATOCRIT (BEAKER) 30.1 % 34.1-44.9 L (test code = 411) MEAN CORPUSCULAR 90 fL 79-95 VOLUME (BEAKER) (test code = 753) MEAN CORPUSCULAR 28.1 pg 25.6-32.2 HEMOGLOBIN (BEAKER) (test code = 751) MEAN CORPUSCULAR 31.2 GM/DL 32.2-35.5 L HEMOGLOBIN CONC (BEAKER) (test code = 752) RED CELL DISTRIBUTION 19.3 % 11.7-14.4 H WIDTH (BEAKER) (test code = 412) PLATELET COUNT 118 K/CU MM 150-450 L (BEAKER) (test code = 756) MEAN PLATELET VOLUME Unable to report due (BEAKER) (test code = to abn ormal Platelet 754) population distribution. NUCLEATED RED BLOOD 0 /100 WBC 0-0 CELLS (BEAKER) (test code = 413) POCT-GLUCOSE [id number] 13:31:37 Test Item Value Reference Range Interpretation Comments POC-GLUCOSE METER 109 mg/dL 70-110 : TESTED A T [facility] 6720 (BEAKER) (test code = RADHA SCHULER [place], 1538) [address]: Rouge Mixer/Techni tawana ID = [id number] for HAILEY KIM [id number] 12:06:00 Test Item Value Reference Range Interpretation Comments CROSSMATCH (test code = 2264) COMPATIBLE Unit ABO (test code = B Pos 3608529) UNIT NUMBER (test code = [id number] 934-0) Status (test code = 3994056) ISSUED Blood Bank Product (test code RED BLOOD CELLS = 2263) PRODUCT CODE (test code = I6475X45 933-2) [facility] [id number] 12:06:00 Test Item Value Reference Range Interpretation Comments CROSSMATCH (test code = 2264) COMPATIBLE Unit ABO (test code = B Pos 2166455) UNIT NUMBER (test code = [id number] 934-0) Status (test code = 3046506) ISSUED Blood Bank Product (test code RED BLOOD CELLS = 2263) PRODUCT CODE (test code = I9572A39 933-2) [facility]ERRITIN2023-[facility] 11:03:36 Test Item Value Reference Range Interpretation Comments FERRITIN (BEAKER) (test code = 83.06 ng/mL 5.00-275.00 361) [employer] ID - ADMINIRON, TIBC, % SAT. (WITHOUT FERRITIN)2022-07-19 10:03:36 Test Item Value Reference Range Interpretation Comments IRON (BEAKER) (test code = 547) 41.0 ug/dL 40.0-160.0 TOTAL IRON BINDING CAPACITY 315 ug/dL 250-450 (BEAKER) (test code = 769) IRON % SATURATION (2) (BEAKER) 13 % 20-55 L (test code = 2590) [employer] ID - ADMINOperator ID - ADMINBLOOD [id number] 08:00:30 Test Item Value Reference Range Interpretation Comments CULTURE (BEAKER) (test No growth in 5 days code = 1095) BLOOD [id number] 08:00:29 Test Item Value Reference Range Interpretation Comments CULTURE (BEAKER) (test No growth in 5 days code = 1095) BASIC METABOLIC [id number] 05:21:14 Test Item Value Reference Range Interpretation Comments SODIUM (BEAKER) 140 meq/L 136-145 (test code = 381) POTASSIUM 4.4 meq/L 3.5-5.1 (BEAKER) (test code = 379) CHLORIDE (BEAKER) 109 meq/L 98-107 H (test code = 382) CO2 (BEAKER) 23 meq/L 22-29 (test code = 355) BLOOD UREA 63 mg/dL 7-21 H NITROGEN (BEAKER) (test code = 354) CREATININE 2.58 mg/dL 0.57-1.25 H (BEAKER) (test code = 358) GLUCOSE RANDOM 85 mg/dL 70-105 (BEAKER) (test code = 652) CALCIUM (BEAKER) 9.6 mg/dL 8.4-10.2 (test code = 697) EGFR (BEAKER) 19 Interpretatio n of eGFR (test code = mL/min/1.73 values Stage De scription 1092) sq m Result G1 Mckayla l or high >=90 G2 Mildly decreased 60-89 G3a Mildl y to moderately 45-5 9 G3b Moderately to s everely 30-44 G4 Severl y decreased 15-29 G5 Kidney failure <15Reported eGF R is based on the CKD-EPI 2020 equation that d oes not use a race coefficientEsti mated GFR is not as accur ate as Creatinine Sera guidry in predicting glom erular filtration rate . Estimated GFR is not appl icable for dialysis patien ts [employer] ID - [id number] 05:01:46 Test Item Value Reference Range Interpretation Comments MAGNESIUM (BEAKER) (test code = 2.1 mg/dL 1.6-2.6 627) [employer] ID - ADMINHEPATIC FUNCTION [id number] 05:01:46 Test Item Value Reference Range Interpretation Comments TOTAL PROTEIN (BEAKER) (test code = 6.5 gm/dL 6.0-8.3 770) ALBUMIN (BEAKER) (test code = 1145) 3.0 g/dL 3.5-5.0 L BILIRUBIN TOTAL (BEAKER) (test code 1.1 mg/dL 0.2-1.2 = 377) BILIRUBIN DIRECT (BEAKER) (test 0.4 mg/dL 0.1-0.5 code = 706) ALKALINE PHOSPHATASE (BEAKER) (test 58 U/L 40-150 code = 346) AST (SGOT) (BEAKER) (test code = 23 U/L 5-34 353) ALT (SGPT) (BEAKER) (test code = 15 U/L 6-55 347) [employer] ID - [id number] 04:23:51 Test Item Value Reference Range Interpretation Comments PARTIAL THROMBOPLASTIN TIME 94.9 seconds 22.5-36.0 H (BEAKER) (test code = 760) PROTHROMBIN TIME/[id number] 04:22:13 Test Item Value Reference Range Interpretation Comments PROTIME (BEAKER) (test code = 15.8 seconds 11.9-14.2 H 759) INR (BEAKER) (test code = 370) 1.29 <=5.90 RECOMMENDED COUMADIN/WARFARIN INR THERAPY RANGESSTANDARD DOSE: 2.0 - 3.0 Includes: PROPHYLAXIS for venous thrombosis, systemic embolization; TREATMENT for venous thrombosis and/or pulmonary embolus.HIGH RISK: Target INR is 2.5-3.5 for patients with mechanical heart valves.CBC W/PLT COUNT & AUTO [id number] 04:04:25 Test Item Value Reference Range Interpretation Comments WHITE BLOOD CELL COUNT (BEAKER) 6.6 K/ L 3.5-10.5 (test code = 775) RED BLOOD CELL COUNT (BEAKER) 2.91 M/ L 3.93-5.22 L (test code = 761) HEMOGLOBIN (BEAKER) (test code = 8.3 GM/DL 11.2-15.7 L 410) HEMATOCRIT (BEAKER) (test code = 26.5 % 34.1-44.9 L 411) MEAN CORPUSCULAR VOLUME (BEAKER) 91 fL 79-95 (test code = 753) MEAN CORPUSCULAR HEMOGLOBIN 28.5 pg 25.6-32.2 (BEAKER) (test code = 751) MEAN CORPUSCULAR HEMOGLOBIN CONC 31.3 GM/DL 32.2-35.5 L (BEAKER) (test code = 752) RED CELL DISTRIBUTION WIDTH 16.1 % 11.7-14.4 H (BEAKER) (test code = 412) PLATELET COUNT (BEAKER) (test 126 K/CU MM 150-450 L code = 756) MEAN PLATELET VOLUME (BEAKER) 12.7 fL 9.4-12.3 H (test code = 754) NUCLEATED RED BLOOD CELLS 0 /100 WBC 0-0 (BEAKER) (test code = 413) NEUTROPHILS RELATIVE PERCENT 62 % (BEAKER) (test code = 429) LYMPHOCYTES RELATIVE PERCENT 21 % (BEAKER) (test code = 430) MONOCYTES RELATIVE PERCENT 11 % (BEAKER) (test code = 431) EOSINOPHILS RELATIVE PERCENT 6 % (BEAKER) (test code = 432) BASOPHILS RELATIVE PERCENT 1 % (BEAKER) (test code = 437) NEUTROPHILS ABSOLUTE COUNT 4.07 K/ L 1.56-6.13 (BEAKER) (test code = 670) LYMPHOCYTES ABSOLUTE COUNT 1.36 K/ L 1.18-3.74 (BEAKER) (test code = 414) MONOCYTES ABSOLUTE COUNT (BEAKER) 0.69 K/ L 0.24-0.36 H (test code = 415) EOSINOPHILS ABSOLUTE COUNT 0.39 K/ L 0.04-0.36 H (BEAKER) (test code = 416) BASOPHILS ABSOLUTE COUNT (BEAKER) 0.04 K/ L 0.01-0.08 (test code = 417) IMMATURE GRANULOCYTES-RELATIVE 0.30 % 0.00-1.00 PERCENT (BEAKER) (test code = 2801) Prepare Leuko-Red [id number] 23:54:00 Test Item Value Reference Range Interpretation Comments CROSSMATCH (test code = 2264) COMPATIBLE Unit ABO (test code = B Pos 7099880) UNIT NUMBER (test code = [id number] 934-0) Status (test code = 8199048) TX_TIMEINCHART Blood Bank Product (test code RED BLOOD CELLS = 2263) PRODUCT CODE (test code = [id number] 933-2) [facility] [id number] 23:54:00 Test Item Value Reference Range Interpretation Comments CROSSMATCH (test code = 2264) COMPATIBLE Unit ABO (test code = B Pos 8708061) UNIT NUMBER (test code = [id number] 934-0) Status (test code = 8253136) TX_TIMEINCHART Blood Bank Product (test code RED BLOOD CELLS = 2263) PRODUCT CODE (test code = [id number] 933-2) [facility] Leuko-Red [id number] 23:54:00 Test Item Value Reference Range Interpretation Comments CROSSMATCH (test code = 2264) COMPATIBLE Unit ABO (test code = B Pos 7317967) UNIT NUMBER (test code = [id number] 934-0) Status (test code = 0593042) [facility]IN[facility] Blood Bank Product (test code RED BLOOD CELLS = 2263) PRODUCT CODE (test code = M7038QC9 933-2) [facility] Leuko-Red [id number] 23:54:00 Test Item Value Reference Range Interpretation Comments CROSSMATCH (test code = 2264) COMPATIBLE Unit ABO (test code = B Pos 2944057) UNIT NUMBER (test code = [id number] 934-0) Status (test code = 4116111) [place]IN[facility] Blood Bank Product (test code RED BLOOD CELLS = 2263) PRODUCT CODE (test code = H6064JU5 933-2) [facility] campusPOCT-GLUCOSE [id number] 21:45:45 Test Item Value Reference Range Interpretation Comments POC-GLUCOSE METER 108 mg/dL 70-110 : TESTED A T [facility] 6720 ([facility]) (test code = [facility], 1537) [address]: Rouge Mixer/Techni tawana ID = [id number] for MARC KENNY POCT-GLUCOSE [id number] 16:42:42 Test Item Value Reference Range Interpretation Comments POC-GLUCOSE METER 113 mg/dL 70-110 H : TESTED A T [facility] 6720 (BEAKER) (test code = [facility], 1537) [address]: Rouge Mixer/Techni tawana ID = [id number] for VIKAS NEERAJSCARLETT NICHOLSCIE [id number] 16:20:47 Test Item Value Reference Range Interpretation Comments PARTIAL THROMBOPLASTIN TIME 70.9 seconds 22.5-36.0 H (BEAKER) (test code = 760) POCT-GLUCOSE [id number] 12:22:38 Test Item Value Reference Range Interpretation Comments POC-GLUCOSE METER 112 mg/dL 70-110 H : [facility] ([facility] (test code = RADHA Riddle [facility], 1538) [address]: Rouge Mixer/Techni tawana ID = [id number] for [place] LLIS, SAMY POC-Glucose [id number] 07:59:11 Test Item Value Reference Range Interpretation Comments POC-Glucose Meter (test 106 mg/dL 70-110 : TE STED AT [facility] code = 1538) 67[address] [facility], 7[address]: Rouge Mixer/Techni tawana ID = [id number] for CHO SAMY Lab Interpretation (test Normal code = 69440-6) [facility] campusPOCT-GLUCOSE [id number] 07:59:11 Test Item Value Reference Range Interpretation Comments POC-GLUCOSE METER 106 mg/dL 70-110 : [facility] (BE[facility]ER[facility] (test code = [facility], 1538) [address]: Rouge Mixer/Techni tawana ID = [id number] for [place] LLIS, SAMY [id number] 07:55:20 Test Item Value Reference Range Interpretation Comments PARTIAL THROMBOPLASTIN TIME 85.9 seconds 22.5-36.0 H (BEAKER) (test code = 760) [id number] 02:26:44 Test Item Value Reference Range Interpretation Comments PARTIAL THROMBOPLASTIN TIME 75.5 seconds 22.5-36.0 H (BEAKER) (test code = 760) BASIC METABOLIC [id number] 02:14:08 Test Item Value Reference Range Interpretation Comments SODIUM (BEAKER) 138 meq/L 136-145 (test code = 381) POTASSIUM 4.6 meq/L 3.5-5.1 (BEAKER) (test code = 379) CHLORIDE (BEAKER) 107 meq/L 98-107 (test code = 382) CO2 (BEAKER) 22 meq/L 22-29 (test code = 355) BLOOD UREA 66 mg/dL 7-21 H NITROGEN (BEAKER) (test code = 354) CREATININE 2.53 mg/dL 0.57-1.25 H (BEAKER) (test code = 358) GLUCOSE RANDOM 96 mg/dL 70-105 (BEAKER) (test code = 652) CALCIUM (BEAKER) 9.3 mg/dL 8.4-10.2 (test code = 697) EGFR (BEAKER) 20 Interpretatio n of eGFR (test code = mL/min/1.73 values Stage De scription 1092) sq m Result G1 Mckayla l or high >=90 G2 Mildly decreased 60-89 G3a Mildl y to moderately 45-5 9 G3b Moderately to s everely 30-44 G4 Severl y decreased 15-29 G5 Kidney failure <15Reported eGF R is based on the CKD-EPI 2020 equation that d oes not use a race coefficientEsti mated GFR is not as accur ate as Creatinine Sera chao in predicting glom erular filtration rate . Estimated GFR is not appl icable for dialysis patien ts [employer] ID - ADMINHEPATIC FUNCTION [id number] 02:06:26 Test Item Value Reference Range Interpretation Comments TOTAL PROTEIN (BEAKER) (test code = 6.4 gm/dL 6.0-8.3 770) ALBUMIN (BEAKER) (test code = 1145) 2.9 g/dL 3.5-5.0 L BILIRUBIN TOTAL (BEAKER) (test code 1.0 mg/dL 0.2-1.2 = 377) BILIRUBIN DIRECT (BEAKER) (test 0.4 mg/dL 0.1-0.5 code = 706) ALKALINE PHOSPHATASE (BEAKER) (test 55 U/L 40-150 code = 346) AST (SGOT) (BEAKER) (test code = 20 U/L 5-34 353) ALT (SGPT) (BEAKER) (test code = 16 U/L 6-55 347) Rouge [employer] ID - [id number] 02:06:25 Test Item Value Reference Range Interpretation Comments MAGNESIUM (BEAKER) (test code = 2.1 mg/dL 1.6-2.6 627) Rouge [employer]er ID - ADMINCBC W/PLT COUNT & AUTO [id number] 01:49:21 Test Item Value Reference Range Interpretation Comments WHITE BLOOD CELL COUNT (BEAKER) 7.0 K/ L 3.5-10.5 (test code = 775) RED BLOOD CELL COUNT (BEAKER) 2.84 M/ L 3.93-5.22 L (test code = 761) HEMOGLOBIN (BEAKER) (test code = 8.3 GM/DL 11.2-15.7 L 410) HEMATOCRIT (BEAKER) (test code = 26.3 % 34.1-44.9 L 411) MEAN CORPUSCULAR VOLUME (BEAKER) 93 fL 79-95 (test code = 753) MEAN CORPUSCULAR HEMOGLOBIN 29.2 pg 25.6-32.2 (BEAKER) (test code = 751) MEAN CORPUSCULAR HEMOGLOBIN CONC 31.6 GM/DL 32.2-35.5 L (BEAKER) (test code = 752) RED CELL DISTRIBUTION WIDTH 16.1 % 11.7-14.4 H (BEAKER) (test code = 412) PLATELET COUNT (BEAKER) (test 119 K/CU MM 150-450 L code = 756) MEAN PLATELET VOLUME (BEAKER) 12.2 fL 9.4-12.3 (test code = 754) NUCLEATED RED BLOOD CELLS 0 /100 WBC 0-0 (BEAKER) (test code = 413) NEUTROPHILS RELATIVE PERCENT 60 % (BEAKER) (test code = 429) LYMPHOCYTES RELATIVE PERCENT 21 % (BEAKER) (test code = 430) MONOCYTES RELATIVE PERCENT 12 % (BEAKER) (test code = 431) EOSINOPHILS RELATIVE PERCENT 5 % (BEAKER) (test code = 432) BASOPHILS RELATIVE PERCENT 1 % (BEAKER) (test code = 437) NEUTROPHILS ABSOLUTE COUNT 4.20 K/ L 1.56-6.13 (BEAKER) (test code = 670) LYMPHOCYTES ABSOLUTE COUNT 1.49 K/ L 1.18-3.74 (BEAKER) (test code = 414) MONOCYTES ABSOLUTE COUNT (BEAKER) 0.81 K/ L 0.24-0.36 H (test code = 415) EOSINOPHILS ABSOLUTE COUNT 0.37 K/ L 0.04-0.36 H (BEAKER) (test code = 416) BASOPHILS ABSOLUTE COUNT (BEAKER) 0.05 K/ L 0.01-0.08 (test code = 417) IMMATURE GRANULOCYTES-RELATIVE 0.60 % 0.00-1.00 PERCENT (BEAKER) (test code = 2801) RAD, CHEST, 1 VIEW, NON [id number] 00:10:00Reason for exam:->shortness of breathShould this be performed at the bedside?->Yes [facility] : 1950 Sex: FFINAL REPORT TECHNIQUE: Frontal view of the chest. INDICATION: shortness of breath. COMPARISON: 06/13/2022. FINDINGS: LINES/TUBES: None. HEART AND MEDIASTINUM: Cardiomediastinal contour is stable. Cardiomegaly. Right ventricular pacer device is present, as before. LUNGS: Perihilar interstitial and alveolar opacities. No focal consolidative process. PLEURA: Small bilateral pleural effusions. No pneumothorax. SOFT TISSUES AND BONES: Unremarkable. IMPRESSION:Cardiomegaly with biventricular pacing device. Mild interstitial edema with small bilateral pleural effusions. Signed: Josue Wright MDReport Verified Date/Time: 07/18/2022 00:10:32 POCT-GLUCOSE [id number] 22:39:34 Test Item Value Reference Range Interpretation Comments POC-GLUCOSE METER 123 mg/dL 70-110 H : TESTED A T [facility] 6720 ([employer]) (test code = RADHA SCHULER [place], 1538) [address]: Rouge Mixer/Techni tawana ID = [id number] for NG O ARMINDA [id number] 19:21:33 Test Item Value Reference Range Interpretation Comments PARTIAL THROMBOPLASTIN TIME 68.3 seconds 22.5-36.0 H ([employer] ServicesAVELINO) (test code = 760) Prepare Leuko-Red [id number] 18:04:00 Test Item Value Reference Range Interpretation Comments CROSSMATCH (test code = 2264) COMPATIBLE Unit ABO (test code = B Pos 2829465) UNIT NUMBER (test code = [id number] 934-0) Status (test code = 2045781) ISSUED Blood Bank Product (test code RED BLOOD CELLS = 2263) PRODUCT CODE (test code = Z2849TT5 933-2) [facility]PO[facility]GLUCOSE [id number] 16:47:52 Test Item Value Reference Range Interpretation Comments POC-GLUCOSE METER 124 mg/dL 70-110 H : TESTED A T [facility] 6720 (BEAKER) (test code = RADHA SCHULER [place], 1538) [address]: Rouge Mixer/Techni tawana ID = [id number] for QUEEN Marko HEARN Leuko-Red [id number] 13:39:00 Test Item Value Reference Range Interpretation Comments CROSSMATCH (test code = 2264) COMPATIBLE Unit ABO (test code = B Pos 2828237) UNIT NUMBER (test code = [id number] 934-0) Status (test code = 4061970) READY Blood Bank Product (test code RED BLOOD CELLS = 2263) PRODUCT CODE (test code = E4980CT4 933-2) [facility] campusCreatinine, random [id number] 13:33:57 Test Item Value Reference Range Interpretation Comments Creatinine, Ur 70.5 mg/dL (test code = 2161-8) KRYSTINA (test code = Reference Range: No KRYSTINA) NormalsOperator ID - ADMIN [facility] [id number] 13:33:57 Test Item Value Reference Range Interpretation Comments Sodium Urine (test 30 meq/L code = 2955-3) KRYSTINA (test code = Reference Range: No KRYSTINA) NormalsOperator ID - ADMIN [facility] campusCreatinine, random [id number] 13:33:57 Test Item Value Reference Range Interpretation Comments Creatinine, Ur 70.5 mg/dL (test code = 2161-8) KRYSTINA (test code = Reference Range: No KRYSTINA) NormalsOperator ID - ADMIN [facility] [id number] 13:33:57 Test Item Value Reference Range Interpretation Comments Sodium Urine (test 30 meq/L code = 2955-3) KRYSTINA (test code = Reference Range: No KRYSTINA) NormalsOperator ID - ADMIN [facility]Creat[facility], random [id number] 13:33:57 Test Item Value Reference Range Interpretation Comments Creatinine, Ur 70.5 mg/dL (test code = 2161-8) KRYSTINA (test code = Reference Range: No KRYSTINA) NormalsOperator ID - ADMIN [facility] [id number] 13:33:57 Test Item Value Reference Range Interpretation Comments Sodium Urine (test 30 meq/L code = 2955-3) KRYSTINA (test code = Reference Range: No KRYSTINA) NormalsOperator ID - ADMIN [facility]Creatinine, random [id number] 13:33:57 Test Item Value Reference Range Interpretation Comments Creatinine, Ur 70.5 mg/dL (test code = 2161-8) KRYSTINA (test code = Reference Range: No KRYSTINA) NormalsOperator ID - ADMIN [facility], random [id number] 13:33:57 Test Item Value Reference Range Interpretation Comments Sodium Urine (test 30 meq/L code = 2955-3) KRYSTINA (test code = Reference Range: No KRYSTINA) NormalsOperator ID - [facility] CenterCreat[facility], random [id number] 13:33:57 Test Item Value Reference Range Interpretation Comments Creatinine, Ur 70.5 mg/dL (test code = 2161-8) KRYSTINA (test code = Reference Range: No KRYSTINA) NormalsOperator ID - ADMIN [facility], random [id number] 13:33:57 Test Item Value Reference Range Interpretation Comments Sodium Urine (test 30 meq/L code = 2955-3) KRYSTINA (test code = Reference Range: No KRYSTINA) NormalsOperator ID [facility] [id number] 13:33:57 Test Item Value Reference Range Interpretation Comments Creatinine, Ur 70.5 mg/dL (test code = 2161-8) KRYSTINA (test code = Reference Range: No KRYSTINA) NormalsOperator [facility], random [id number] 13:33:57 Test Item Value Reference Range Interpretation Comments Sodium Urine (test 30 meq/L code = 2955-3) KRYSTINA (test code = Reference Range: No KRYSTINA) NormalsOperator ID - ADMIN [facility]Creatinine, random [id number] 13:33:57 Test Item Value Reference Range Interpretation Comments Creatinine, Ur 70.5 mg/dL (test code = 2161-8) KRYSTINA (test code = Reference Range: No KRYSTINA) [facility] [id number] 13:33:57 Test Item Value Reference Range Interpretation Comments Sodium Urine (test 30 meq/L code = 2955-3) KRYSTINA (test code = Reference Range: No KRYSTINA) [facility] [id number] 13:33:57 Test Item Value Reference Range Interpretation Comments Creatinine, Ur 70.5 mg/dL (test code = 2161-8) KRYSTINA (test code = Reference Range: No KRYSTINA) [facility]Operator [facility] [id number] 13:33:57 Test Item Value Reference Range Interpretation Comments Sodium Urine (test 30 meq/L code = 2955-3) KRYSTINA (test code = Reference Range: No KRYSTINA) [facility] [id number] 13:33:57 Test Item Value Reference Range Interpretation Comments Creatinine, Ur 70.5 mg/dL (test code = 2161-8) KRYSTINA (test code = Reference Range: No KRYSTINA) [facility]alsOperator ID [facility] [id number] 13:33:57 Test Item Value Reference Range Interpretation Comments Sodium Urine (test 30 meq/L code = 2955-3) KRYSTINA (test code = Reference Range: No KRYSTINA) [facility] [id number] 13:33:57 Test Item Value Reference Range Interpretation Comments Creatinine, Ur 70.5 mg/dL (test code = 2161-8) KRYSTINA (test code = Reference Range: No KRYSTINA) [facility] [id number] 13:33:57 Test Item Value Reference Range Interpretation Comments Sodium Urine (test 30 meq/L code = 2955-3) KRYSTINA (test code = Reference Range: No KRYSTINA) [facility]alsOperator ID [facility] [id number] 13:33:57 Test Item Value Reference Range Interpretation Comments Creatinine, Ur 70.5 mg/dL (test code = 2161-8) KRYSTINA (test code = Reference Range: No KRYSTINA) NormalsOperator [facility] [id number] 13:33:57 Test Item Value Reference Range Interpretation Comments Sodium Urine (test 30 meq/L code = 2955-3) KRYSTINA (test code = Reference Range: No KRYSTINA) NormalsOperator ID - [facility] [id number] 13:33:57 Test Item Value Reference Range Interpretation Comments CREATININE URINE (BEAKER) (test 70.5 mg/dL code = 375) Reference Range: No NormalsOperator ID - ADMINSODIUM, RANDOM [id number] 13:33:57 Test Item Value Reference Range Interpretation Comments SODIUM URINE (BEAKER) (test code = 30 meq/L 243) Reference Range: No NormalsOperator ID - [id number] 12:40:24 Test Item Value Reference Range Interpretation Comments PARTIAL THROMBOPLASTIN TIME 71.3 seconds 22.5-36.0 H (BEAKER) (test code = 760) POC-Glucose [id number] 11:20:01 Test Item Value Reference Range Interpretation Comments POC-Glucose Meter (test 119 mg/dL 70-110 H : TE STED AT [facility] code = 1538) [address] [facility], 770 30: Rouge Mixer/Techni tawana ID = [id number] for [facility] Lab Interpretation (test Abnormal code = 62972-1) [place] [facility] [id number] 11:20:01 Test Item Value Reference Range Interpretation Comments POC-GLUCOSE METER 119 mg/dL 70-110 H : TESTED A T [facility] 6720 (BEAKER) (test code = RADHA Riddle [facility], 1538) [address]: Rouge Mixer/Techni tawana ID = [id number] for [facility]EN HEARN Urinalysis w/Vgrbychallp8270-46-13 07:53:37 Test Item Value Reference Range Interpretation Comments Color, UA (test code Yellow = 5778-6) Clarity, UA (test Hazy code = 5767-9) Specific Cleves, UA 1.012 1.001-1.035 (test code = 5811-5) pH, UA (test code = 7.5 5.0-8.0 5803-2) Protein, UA (test Negative Negative code = 32442-0) Glucose, UA (test Negative Negative code = 365) Ketones, UA (test Negative Negative code = 2514-8) Bilirubin, UA (test Negative Negative code = 80772-5) Blood, UA (test code Negative Negative = 97519-5) Nitrite, UA (test Negative Negative code = 5802-4) Leukocytes, UA (test Large Negative A code = 5799-2) Urobilinogen, UA 0.2 0.2-1.0 (test code = 52870-9) RBC, UA (test code = 1 See_Comment [Autom ated 25636-2) message] The system which generated this result transmitted reference range : /HPF. The reference range was not used to interpret this result as normal/abnormal . WBC, UA (test code = 3 See_Comment [Autom ated 5821-4) message] The system which generated this result transmitted reference range : /HPF. The reference range was not used to interpret this result as normal/abnormal . Bacteria, UA (test Occasional code = 08240-0) Squam Epithel, UA 13 See_Comment [Automate d (test code = 90593-4) messag e] The system which generated this result transmitted reference range : /HPF. The reference range was not used to interpret this result as normal/abnormal . Specimen Source (test Urine, Clean code = 2795) Catch KRYSTINA (test code = KRYSTINA) Rouge Mixer ID - [auto]Rouge Mixer ID - tech Lab Interpretation Abnormal (test code = 99741-6) [place] [facility]/Aetuzpvndmy5765-61-05 07:53:37 Test Item Value Reference Range Interpretation Comments Color, UA (test code Yellow = 5778-6) Clarity, UA (test Hazy code = 5767-9) Specific Cleves, UA 1.012 1.001-1.035 (test code = 5811-5) pH, UA (test code = 7.5 5.0-8.0 5803-2) Protein, UA (test Negative Negative code = 10719-1) Glucose, UA (test Negative Negative code = 365) Ketones, UA (test Negative Negative code = 2514-8) Bilirubin, UA (test Negative Negative code = 28590-5) Blood, UA (test code Negative Negative = 25382-8) Nitrite, UA (test Negative Negative code = 5802-4) Leukocytes, UA (test Large Negative A code = 5799-2) Urobilinogen, UA 0.2 0.2-1.0 (test code = 61857-8) RBC, UA (test code = 1 See_Comment [Autom ated 49415-5) message] The system which generated this result transmitted reference range : /HPF. The reference range was not used to interpret this result as normal/abnormal . WBC, UA (test code = 3 See_Comment [Autom ated 5821-4) message] The system which generated this result transmitted reference range : /HPF. The reference range was not used to interpret this result as normal/abnormal . Bacteria, UA (test Occasional code = 32438-4) Squam Epithel, UA 13 See_Comment [Automate d (test code = 98065-8) messag e] The system which generated this result transmitted reference range : /HPF. The reference range was not used to interpret this result as normal/abnormal . Specimen Source (test Urine, Clean code = 2795) Catch KRYSTINA (test code = KRYSTINA) Rouge Mixer ID - [auto]Rouge Mixer ID - tech Lab Interpretation Abnormal (test code = 64424-3) [place] [facility]/Vgroykbwoms6586-41-90 07:53:37 Test Item Value Reference Range Interpretation Comments Color, UA (test code Yellow = 5778-6) Clarity, UA (test Hazy code = 5767-9) Specific Cleves, UA 1.012 1.001-1.035 (test code = 5811-5) pH, UA (test code = 7.5 5.0-8.0 5803-2) Protein, UA (test Negative Negative code = 79178-6) Glucose, UA (test Negative Negative code = 365) Ketones, UA (test Negative Negative code = 2514-8) Bilirubin, UA (test Negative Negative code = 38116-1) Blood, UA (test code Negative Negative = 97101-6) Nitrite, UA (test Negative Negative code = 5802-4) Leukocytes, UA (test Large Negative A code = 5799-2) Urobilinogen, UA 0.2 0.2-1.0 (test code = 95863-5) RBC, UA (test code = 1 See_Comment [Autom ated 58619-3) message] The system which generated this result transmitted reference range : /HPF. The reference range was not used to interpret this result as normal/abnormal . WBC, UA (test code = 3 See_Comment [Autom ated 5821-4) message] The system which generated this result transmitted reference range : /HPF. The reference range was not used to interpret this result as normal/abnormal . Bacteria, UA (test Occasional code = 48210-8) Squam Epithel, UA 13 See_Comment [Automate d (test code = 06841-9) messag e] The system which generated this result transmitted reference range : /HPF. The reference range was not used to interpret this result as normal/abnormal . Specimen Source (test Urine, Clean code = 2795) Catch KRYSTINA (test code = KRYSTINA) Rouge Mixer ID - [auto]Rouge Mixer ID - tech Lab Interpretation Abnormal (test code = 69811-2) [place] [facility]/Btegpwfmjky2048-81-45 07:53:37 Test Item Value Reference Range Interpretation Comments Color, UA (test code Yellow = 5778-6) Clarity, UA (test Hazy code = 5767-9) Specific Cleves, UA 1.012 1.001-1.035 (test code = 5811-5) pH, UA (test code = 7.5 5.0-8.0 5803-2) Protein, UA (test Negative Negative code = 60417-3) Glucose, UA (test Negative Negative code = 365) Ketones, UA (test Negative Negative code = 2514-8) Bilirubin, UA (test Negative Negative code = 68898-3) Blood, UA (test code Negative Negative = 60211-6) Nitrite, UA (test Negative Negative code = 5802-4) Leukocytes, UA (test Large Negative A code = 5799-2) Urobilinogen, UA 0.2 0.2-1.0 (test code = 02201-2) RBC, UA (test code = 1 See_Comment [Autom ated 28371-1) message] The system which generated this result transmitted reference range : /HPF. The reference range was not used to interpret this result as normal/abnormal . WBC, UA (test code = 3 See_Comment [Autom ated 5821-4) message] The system which generated this result transmitted reference range : /HPF. The reference range was not used to interpret this result as normal/abnormal . Bacteria, UA (test Occasional code = 84951-7) Squam Epithel, UA 13 See_Comment [Automate d (test code = 48269-0) messag e] The system which generated this result transmitted reference range : /HPF. The reference range was not used to interpret this result as normal/abnormal . Specimen Source (test Urine, Clean code = 2795) Catch KRYSTINA (test code = KRYSTINA) Rouge Mixer ID - [auto]Rouge Mixer ID - tech Lab Interpretation Abnormal (test code = 06716-8) [place] [facility]/Ombtlpznqje4482-02-91 07:53:37 Test Item Value Reference Range Interpretation Comments Color, UA (test code Yellow = 5778-6) Clarity, UA (test Hazy code = 5767-9) Specific Cleves, UA 1.012 1.001-1.035 (test code = 5811-5) pH, UA (test code = 7.5 5.0-8.0 5803-2) Protein, UA (test Negative Negative code = 81793-5) Glucose, UA (test Negative Negative code = 365) Ketones, UA (test Negative Negative code = 2514-8) Bilirubin, UA (test Negative Negative code = 64584-5) Blood, UA (test code Negative Negative = 71288-4) Nitrite, UA (test Negative Negative code = 5802-4) Leukocytes, UA (test Large Negative A code = 5799-2) Urobilinogen, UA 0.2 0.2-1.0 (test code = 63369-0) RBC, UA (test code = 1 See_Comment [Autom ated 28330-3) message] The system which generated this result transmitted reference range : /HPF. The reference range was not used to interpret this result as normal/abnormal . WBC, UA (test code = 3 See_Comment [Autom ated 5821-4) message] The system which generated this result transmitted reference range : /HPF. The reference range was not used to interpret this result as normal/abnormal . Bacteria, UA (test Occasional code = 91030-5) Squam Epithel, UA 13 See_Comment [Automate d (test code = 95524-2) messag e] The system which generated this result transmitted reference range : /HPF. The reference range was not used to interpret this result as normal/abnormal . Specimen Source (test Urine, Clean code = 2795) Catch KRYSTINA (test code = KRYSTINA) Rouge Mixer ID - [auto]Rouge Mixer ID - tech Lab Interpretation Abnormal (test code = 40596-1) [place] [facility]/Uzdayndmvvi3787-44-97 07:53:37 Test Item Value Reference Range Interpretation Comments Color, UA (test code Yellow = 5778-6) Clarity, UA (test Hazy code = 5767-9) Specific Cleves, UA 1.012 1.001-1.035 (test code = 5811-5) pH, UA (test code = 7.5 5.0-8.0 5803-2) Protein, UA (test Negative Negative code = 73402-1) Glucose, UA (test Negative Negative code = 365) Ketones, UA (test Negative Negative code = 2514-8) Bilirubin, UA (test Negative Negative code = 64694-8) Blood, UA (test code Negative Negative = 04450-0) Nitrite, UA (test Negative Negative code = 5802-4) Leukocytes, UA (test Large Negative A code = 5799-2) Urobilinogen, UA 0.2 0.2-1.0 (test code = 97300-7) RBC, UA (test code = 1 See_Comment [Autom ated 50544-9) message] The system which generated this result transmitted reference range : /HPF. The reference range was not used to interpret this result as normal/abnormal . WBC, UA (test code = 3 See_Comment [Autom ated 5821-4) message] The system which generated this result transmitted reference range : /HPF. The reference range was not used to interpret this result as normal/abnormal . Bacteria, UA (test Occasional code = 64680-1) Squam Epithel, UA 13 See_Comment [Automate d (test code = 04981-6) messag e] The system which generated this result transmitted reference range : /HPF. The reference range was not used to interpret this result as normal/abnormal . Specimen Source (test Urine, Clean code = 2795) Catch KRYSTINA (test code = KRYSTINA) Rouge Mixer ID - [auto]Rouge Mixer ID - tech Lab Interpretation Abnormal (test code = 64306-6) [place] [facility]/Cstqlmjdtvo2164-16-60 07:53:37 Test Item Value Reference Range Interpretation Comments Color, UA (test code Yellow = 5778-6) Clarity, UA (test Hazy code = 5767-9) Specific Cleves, UA 1.012 1.001-1.035 (test code = 5811-5) pH, UA (test code = 7.5 5.0-8.0 5803-2) Protein, UA (test Negative Negative code = 17636-9) Glucose, UA (test Negative Negative code = 365) Ketones, UA (test Negative Negative code = 2514-8) Bilirubin, UA (test Negative Negative code = 13083-1) Blood, UA (test code Negative Negative = 69074-3) Nitrite, UA (test Negative Negative code = 5802-4) Leukocytes, UA (test Large Negative A code = 5799-2) Urobilinogen, UA 0.2 0.2-1.0 (test code = 16778-6) RBC, UA (test code = 1 See_Comment [Autom ated 31797-0) message] The system which generated this result transmitted reference range : /HPF. The reference range was not used to interpret this result as normal/abnormal . WBC, UA (test code = 3 See_Comment [Autom ated 5821-4) message] The system which generated this result transmitted reference range : /HPF. The reference range was not used to interpret this result as normal/abnormal . Bacteria, UA (test Occasional code = 29919-1) Squam Epithel, UA 13 See_Comment [Automate d (test code = 31316-1) messag e] The system which generated this result transmitted reference range : /HPF. The reference range was not used to interpret this result as normal/abnormal . Specimen Source (test Urine, Clean code = 2795) Catch KRYSTINA (test code = KRYSTINA) Rouge Mixer ID - [auto]Rouge Mixer ID - tech Lab Interpretation Abnormal (test code = 60215-0) [place] [facility]/Mpnrufyoayu1489-04-50 07:53:37 Test Item Value Reference Range Interpretation Comments Color, UA (test code Yellow = 5778-6) Clarity, UA (test Hazy code = 5767-9) Specific Cleves, UA 1.012 1.001-1.035 (test code = 5811-5) pH, UA (test code = 7.5 5.0-8.0 5803-2) Protein, UA (test Negative Negative code = 75302-2) Glucose, UA (test Negative Negative code = 365) Ketones, UA (test Negative Negative code = 2514-8) Bilirubin, UA (test Negative Negative code = 23254-5) Blood, UA (test code Negative Negative = 00821-8) Nitrite, UA (test Negative Negative code = 5802-4) Leukocytes, UA (test Large Negative A code = 5799-2) Urobilinogen, UA 0.2 0.2-1.0 (test code = 06992-6) RBC, UA (test code = 1 See_Comment [Autom ated 55650-6) message] The system which generated this result transmitted reference range : /HPF. The reference range was not used to interpret this result as normal/abnormal . WBC, UA (test code = 3 See_Comment [Autom ated 5821-4) message] The system which generated this result transmitted reference range : /HPF. The reference range was not used to interpret this result as normal/abnormal . Bacteria, UA (test Occasional code = 00160-1) Squam Epithel, UA 13 See_Comment [Automate d (test code = 22064-0) messag e] The system which generated this result transmitted reference range : /HPF. The reference range was not used to interpret this result as normal/abnormal . Specimen Source (test Urine, Clean code = 2795) Catch KRYSTINA (test code = KRYSTINA) Rouge Mixer ID - [auto]Rouge Mixer ID - tech Lab Interpretation Abnormal (test code = 89437-7) [place] [facility]/Giasoktxxqa6681-86-12 07:53:37 Test Item Value Reference Range Interpretation Comments Color, UA (test code Yellow = 5778-6) Clarity, UA (test Hazy code = 5767-9) Specific Cleves, UA 1.012 1.001-1.035 (test code = 5811-5) pH, UA (test code = 7.5 5.0-8.0 5803-2) Protein, UA (test Negative Negative code = 53545-7) Glucose, UA (test Negative Negative code = 365) Ketones, UA (test Negative Negative code = 2514-8) Bilirubin, UA (test Negative Negative code = 32252-9) Blood, UA (test code Negative Negative = 87235-6) Nitrite, UA (test Negative Negative code = 5802-4) Leukocytes, UA (test Large Negative A code = 5799-2) Urobilinogen, UA 0.2 0.2-1.0 (test code = 98094-0) RBC, UA (test code = 1 See_Comment [Autom ated 92361-2) message] The system which generated this result transmitted reference range : /HPF. The reference range was not used to interpret this result as normal/abnormal . WBC, UA (test code = 3 See_Comment [Autom ated 5821-4) message] The system which generated this result transmitted reference range : /HPF. The reference range was not used to interpret this result as normal/abnormal . Bacteria, UA (test Occasional code = 58502-2) Squam Epithel, UA 13 See_Comment [Automate d (test code = 14269-1) messag e] The system which generated this result transmitted reference range : /HPF. The reference range was not used to interpret this result as normal/abnormal . Specimen Source (test Urine, Clean code = 2795) Catch KRYSTINA (test code = KRYSTINA) Rouge Mixer ID - [auto]Rouge Mixer ID - tech Lab Interpretation Abnormal (test code = 80815-3) [facility] [place] [facility]/Vjtholckssv0924-24-87 07:53:37 Test Item Value Reference Range Interpretation Comments Color, UA (test code Yellow = 5778-6) Clarity, UA (test Hazy code = 5767-9) Specific Cleves, UA 1.012 1.001-1.035 (test code = 5811-5) pH, UA (test code = 7.5 5.0-8.0 5803-2) Protein, UA (test Negative Negative code = 19779-9) Glucose, UA (test Negative Negative code = 365) Ketones, UA (test Negative Negative code = 2514-8) Bilirubin, UA (test Negative Negative code = 06099-3) Blood, UA (test code Negative Negative = 20069-7) Nitrite, UA (test Negative Negative code = 5802-4) Leukocytes, UA (test Large Negative A code = 5799-2) Urobilinogen, UA 0.2 0.2-1.0 (test code = 54525-1) RBC, UA (test code = 1 See_Comment [Autom ated 44362-3) message] The system which generated this result transmitted reference range : /HPF. The reference range was not used to interpret this result as normal/abnormal . WBC, UA (test code = 3 See_Comment [Autom ated 5821-4) message] The system which generated this result transmitted reference range : /HPF. The reference range was not used to interpret this result as normal/abnormal . Bacteria, UA (test Occasional code = 99295-0) Squam Epithel, UA 13 See_Comment [Automate d (test code = 02299-5) messag e] The system which generated this result transmitted reference range : /HPF. The reference range was not used to interpret this result as normal/abnormal . Specimen Source (test Urine, Clean code = 2795) Catch KRYSTINA (test code = KRYSTINA) Rouge Mixer ID - [auto]Rouge Mixer ID - tech Lab Interpretation Abnormal (test code = 22019-3) [facility]/Sxegywjjisf1890-80-22 07:53:37 Test Item Value Reference Range Interpretation Comments Color, UA (test code Yellow = 5778-6) Clarity, UA (test Hazy code = 5767-9) Specific Cleves, UA 1.012 1.001-1.035 (test code = 5811-5) pH, UA (test code = 7.5 5.0-8.0 5803-2) Protein, UA (test Negative Negative code = 24255-3) Glucose, UA (test Negative Negative code = 365) Ketones, UA (test Negative Negative code = 2514-8) Bilirubin, UA (test Negative Negative code = 26176-0) Blood, UA (test code Negative Negative = 61971-2) Nitrite, UA (test Negative Negative code = 5802-4) Leukocytes, UA (test Large Negative A code = 5799-2) Urobilinogen, UA 0.2 0.2-1.0 (test code = 61596-2) RBC, UA (test code = 1 See_Comment [Autom ated 65052-2) message] The system which generated this result transmitted reference range : /HPF. The reference range was not used to interpret this result as normal/abnormal . WBC, UA (test code = 3 See_Comment [Autom ated 5821-4) message] The system which generated this result transmitted reference range : /HPF. The reference range was not used to interpret this result as normal/abnormal . Bacteria, UA (test Occasional code = 73490-4) Squam Epithel, UA 13 See_Comment [Automate d (test code = 03095-9) messag e] The system which generated this result transmitted reference range : /HPF. The reference range was not used to interpret this result as normal/abnormal . Specimen Source (test Urine, Clean code = 2795) Catch KRYSTINA (test code = KRYSTINA) [employer]er ID - [auto]Rouge Mixer ID - tech Lab Interpretation Abnormal (test code = 30851-2) [facility] [place] [facility] [id number] 07:53:37 Test Item Value Reference Range Interpretation Comments COLOR (BEAKER) (test code Yellow = 470) CLARITY (BEAKER) (test Hazy code = 469) SPECIFIC GRAVITY UA 1.012 1.001-1.035 (BEAKER) (test code = 468) PH UA (BEAKER) (test code 7.5 5.0-8.0 = 467) PROTEIN UA (BEAKER) (test Negative Negative code = 464) GLUCOSE UA (BEAKER) (test Negative Negative code = 365) KETONES UA (BEAKER) (test Negative Negative code = 371) BILIRUBIN UA (BEAKER) Negative Negative (test code = 462) BLOOD UA (BEAKER) (test Negative Negative code = 461) NITRITE UA (BEAKER) (test Negative Negative code = 465) LEUKOCYTE ESTERASE UA Large Negative A (BEAKER) (test code = 466) UROBILINOGEN UA (BEAKER) 0.2 0.2-1.0 (test code = 463) RBC UA (BEAKER) (test code 1 /HPF = 519) WBC UA (BEAKER) (test code 3 /HPF = 520) BACTERIA (BEAKER) (test Occasional code = 517) SQUAMOUS EPITHELIAL 13 /HPF (BEAKER) (test code = 516) SOURCE(BEAKER) (test code Urine, Clean Catch = 2795) Rouge [employer]er ID - [auto]Rouge Mixer ID - techPOCT-GLUCOSE [id number] 07:24:54 Test Item Value Reference Range Interpretation Comments POC-GLUCOSE METER 121 mg/dL 70-110 H : TESTED A T [facility] 6720 (BEAKER) (test code = RAD[place], 1538) [address]: Rouge Mixer/Techni tawana ID = [id number] for [facility]EN HEARN BASIC METABOLIC [id number] 06:13:37 Test Item Value Reference Range Interpretation Comments SODIUM (BEAKER) 139 meq/L 136-145 (test code = 381) POTASSIUM 4.7 meq/L 3.5-5.1 (BEAKER) (test code = 379) CHLORIDE (BEAKER) 108 meq/L 98-107 H (test code = 382) CO2 (BEAKER) 22 meq/L 22-29 (test code = 355) BLOOD UREA 70 mg/dL 7-21 H NITROGEN (BEAKER) (test code = 354) CREATININE 2.56 mg/dL 0.57-1.25 H (BEAKER) (test code = 358) GLUCOSE RANDOM 102 mg/dL 70-105 (BEAKER) (test code = 652) CALCIUM (BEAKER) 9.2 mg/dL 8.4-10.2 (test code = 697) EGFR (BEAKER) 19 Interpretatio n of eGFR (test code = mL/min/1.73 values Stage De scription 1092) sq m Result G1 Mckayla l or high >=90 G2 Mildly decreased 60-89 G3a Mildl y to moderately 45-5 9 G3b Moderately to s everely 30-44 G4 Severl y decreased 15-29 G5 Kidney failure <15Reported eGF R is based on the CKD-EPI 2021 equation that d oes not use a race coefficientEsti mated GFR is not as accur ate as Creatinine Sera chao in predicting glom erular filtration rate . Estimated GFR is not appl icable for dialysis patien ts [employer] ID - PITER GCREATINE KINASE (CK)2022-07-17 06:13:18 Test Item Value Reference Range Interpretation Comments CREATINE KINASE TOTAL (BEAKER) (test 47 U/L 29-200 code = 380) [employer]er ID - PITER [id number] 06:13:17 Test Item Value Reference Range Interpretation Comments MAGNESIUM (BEAKER) (test code = 2.2 mg/dL 1.6-2.6 627) [employer]er ID - PITER GHEPATIC FUNCTION [id number] 06:13:17 Test Item Value Reference Range Interpretation Comments TOTAL PROTEIN (BEAKER) (test code = 6.1 gm/dL 6.0-8.3 770) ALBUMIN (BEAKER) (test code = 1145) 2.8 g/dL 3.5-5.0 L BILIRUBIN TOTAL (BEAKER) (test code 0.7 mg/dL 0.2-1.2 = 377) BILIRUBIN DIRECT (BEAKER) (test 0.1 mg/dL 0.1-0.5 code = 706) ALKALINE PHOSPHATASE (BEAKER) (test 56 U/L 40-150 code = 346) AST (SGOT) (BEAKER) (test code = 19 U/L 5-34 353) ALT (SGPT) (BEAKER) (test code = 15 U/L 6-55 347) [employer]er ID - PITER GPOCT-GLUCOSE [id number] 05:48:45 Test Item Value Reference Range Interpretation Comments POC-GLUCOSE METER 102 mg/dL 70-110 : TESTED A T [facility] 6720 (BEAKER) (test code = [place], 1538) [address]: Rouge Mixer/Techni tawana ID = [id number] for Chantal Dleuca [id number] 05:43:31 Test Item Value Reference Range Interpretation Comments PARTIAL THROMBOPLASTIN TIME 65.5 seconds 22.5-36.0 H (BEAKER) (test code = 760) CBC W/PLT COUNT & AUTO [id number] 05:34:19 Test Item Value Reference Range Interpretation Comments WHITE BLOOD CELL COUNT (BEAKER) 7.1 K/ L 3.5-10.5 (test code = 775) RED BLOOD CELL COUNT (BEAKER) 2.39 M/ L 3.93-5.22 L (test code = 761) HEMOGLOBIN (BEAKER) (test code = 6.8 GM/DL 11.2-15.7 L 410) HEMATOCRIT (BEAKER) (test code = 22.0 % 34.1-44.9 L 411) MEAN CORPUSCULAR VOLUME (BEAKER) 92 fL 79-95 (test code = 753) MEAN CORPUSCULAR HEMOGLOBIN 28.5 pg 25.6-32.2 (BEAKER) (test code = 751) MEAN CORPUSCULAR HEMOGLOBIN CONC 30.9 GM/DL 32.2-35.5 L (BEAKER) (test code = 752) RED CELL DISTRIBUTION WIDTH 16.4 % 11.7-14.4 H (BEAKER) (test code = 412) PLATELET COUNT (BEAKER) (test 108 K/CU MM 150-450 L code = 756) MEAN PLATELET VOLUME (BEAKER) 12.9 fL 9.4-12.3 H (test code = 754) NUCLEATED RED BLOOD CELLS 0 /100 WBC 0-0 (BEAKER) (test code = 413) NEUTROPHILS RELATIVE PERCENT 60 % (BEAKER) (test code = 429) LYMPHOCYTES RELATIVE PERCENT 24 % (BEAKER) (test code = 430) MONOCYTES RELATIVE PERCENT 11 % (BEAKER) (test code = 431) EOSINOPHILS RELATIVE PERCENT 5 % (BEAKER) (test code = 432) BASOPHILS RELATIVE PERCENT 1 % (BEAKER) (test code = 437) NEUTROPHILS ABSOLUTE COUNT 4.25 K/ L 1.56-6.13 (BEAKER) (test code = 670) LYMPHOCYTES ABSOLUTE COUNT 1.70 K/ L 1.18-3.74 (BEAKER) (test code = 414) MONOCYTES ABSOLUTE COUNT (BEAKER) 0.75 K/ L 0.24-0.36 H (test code = 415) EOSINOPHILS ABSOLUTE COUNT 0.34 K/ L 0.04-0.36 (BEAKER) (test code = 416) BASOPHILS ABSOLUTE COUNT (BEAKER) 0.04 K/ L 0.01-0.08 (test code = 417) IMMATURE GRANULOCYTES-RELATIVE 0.40 % 0.00-1.00 PERCENT (BEAKER) (test code = 2801) [id number] 21:36:50 Test Item Value Reference Range Interpretation Comments PARTIAL THROMBOPLASTIN TIME 109.2 seconds 22.5-36.0 H (BEAKER) (test code = 760) POCT-GLUCOSE [id number] 20:19:23 Test Item Value Reference Range Interpretation Comments POC-GLUCOSE METER 138 mg/dL 70-110 H : TESTED A T [facility] 6720 (BEAKER) (test code = [facility], 1538) 160[address]: Rouge Mixer/Techni tawana ID = [id number] for TEGAN FORD POCT-GLUCOSE [id number] 16:48:46 Test Item Value Reference Range Interpretation Comments POC-GLUCOSE METER 133 mg/dL 70-110 H : TESTED A T [facility] 6720 (BEAKER) (test code = [facility], [facility]8) [address]: Rouge Mixer/Techni tawana ID = [id number] for Whitmore-LANDAVERD E, MELE [id number] 13:16:51 Test Item Value Reference Range Interpretation Comments PARTIAL THROMBOPLASTIN TIME 38.9 seconds 22.5-36.0 H (BEAKER) (test code = 760) POCT-GLUCOSE [id number] 11:57:45 Test Item Value Reference Range Interpretation Comments POC-GLUCOSE METER 105 mg/dL 70-110 : TESTED A T [facility] 6720 (BEAKER) (test code = [facility], [facility]8) 288[address]: Rouge Mixer/Techni tawana ID = [id number] for Yoon-LANDAVERD E, MELE POCT-GLUCOSE [id number] 07:51:24 Test Item Value Reference Range Interpretation Comments POC-GLUCOSE METER 141 mg/dL 70-110 H : TESTED A T [facility] 6720 (BEAKER) (test code = [facility], 1538) [address]: Rouge Mixer/Techni tawana ID = [id number] for Yoon-LANDAVERD E, MELE [id number] 03:48:18 Test Item Value Reference Range Interpretation Comments PARTIAL THROMBOPLASTIN TIME 57.2 seconds 22.5-36.0 H (BEAKER) (test code = 760) POCT-GLUCOSE [id number] 03:30:48 Test Item Value Reference Range Interpretation Comments POC-GLUCOSE METER 169 mg/dL 70-110 H : TESTED A T [facility] 6720 (BEAKER) (test code = [facility] [place], 1538) [address]: Rouge Mixer/Techni tawana ID = [id number] for Chantal Deluca HEPATIC FUNCTION [id number] 02:12:00 Test Item Value Reference Range Interpretation Comments TOTAL PROTEIN (BEAKER) (test code = 6.2 gm/dL 6.0-8.3 770) ALBUMIN (BEAKER) (test code = 1145) 2.9 g/dL 3.5-5.0 L BILIRUBIN TOTAL (BEAKER) (test code 0.5 mg/dL 0.2-1.2 = 377) BILIRUBIN DIRECT (BEAKER) (test 0.2 mg/dL 0.1-0.5 code = 706) ALKALINE PHOSPHATASE (BEAKER) (test 64 U/L 40-150 code = 346) AST (SGOT) (BEAKER) (test code = 18 U/L 5-34 353) ALT (SGPT) (BEAKER) (test code = 13 U/L 6-55 347) Rouge Mixer ID - PITER GOperator ID - ADMINCBC W/PLT COUNT & AUTO DIFFERENTIAL 2022-07-16 02:04:06 Test Item Value Reference Range Interpretation Comments WHITE BLOOD CELL COUNT (BEAKER) 7.8 K/ L 3.5-10.5 (test code = 775) RED BLOOD CELL COUNT (BEAKER) 2.46 M/ L 3.93-5.22 L (test code = 761) HEMOGLOBIN (BEAKER) (test code = 7.1 GM/DL 11.2-15.7 L 410) HEMATOCRIT (BEAKER) (test code = 23.1 % 34.1-44.9 L 411) MEAN CORPUSCULAR VOLUME (BEAKER) 94 fL 79-95 (test code = 753) MEAN CORPUSCULAR HEMOGLOBIN 28.9 pg 25.6-32.2 (BEAKER) (test code = 751) MEAN CORPUSCULAR HEMOGLOBIN CONC 30.7 GM/DL 32.2-35.5 L (BEAKER) (test code = 752) RED CELL DISTRIBUTION WIDTH 16.3 % 11.7-14.4 H (BEAKER) (test code = 412) PLATELET COUNT (BEAKER) (test 114 K/CU MM 150-450 L code = 756) MEAN PLATELET VOLUME (BEAKER) 12.4 fL 9.4-12.3 H (test code = 754) NUCLEATED RED BLOOD CELLS 0 /100 WBC 0-0 (BEAKER) (test code = 413) NEUTROPHILS RELATIVE PERCENT 63 % (BEAKER) (test code = 429) LYMPHOCYTES RELATIVE PERCENT 20 % (BEAKER) (test code = 430) MONOCYTES RELATIVE PERCENT 11 % (BEAKER) (test code = 431) EOSINOPHILS RELATIVE PERCENT 4 % (BEAKER) (test code = 432) BASOPHILS RELATIVE PERCENT 0 % (BEAKER) (test code = 437) NEUTROPHILS ABSOLUTE COUNT 4.92 K/ L 1.56-6.13 (BEAKER) (test code = 670) LYMPHOCYTES ABSOLUTE COUNT 1.56 K/ L 1.18-3.74 (BEAKER) (test code = 414) MONOCYTES ABSOLUTE COUNT (BEAKER) 0.88 K/ L 0.24-0.36 H (test code = 415) EOSINOPHILS ABSOLUTE COUNT 0.33 K/ L 0.04-0.36 (BEAKER) (test code = 416) BASOPHILS ABSOLUTE COUNT (BEAKER) 0.03 K/ L 0.01-0.08 (test code = 417) IMMATURE GRANULOCYTES-RELATIVE 0.40 % 0.00-1.00 PERCENT (BEAKER) (test code = 2801) BASIC METABOLIC [id number] 01:57:20 Test Item Value Reference Range Interpretation Comments SODIUM (BEAKER) 138 meq/L 136-145 (test code = 381) POTASSIUM 4.3 meq/L 3.5-5.1 (BEAKER) (test code = 379) CHLORIDE (BEAKER) 105 meq/L 98-107 (test code = 382) CO2 (BEAKER) 21 meq/L 22-29 L (test code = 355) BLOOD UREA 73 mg/dL 7-21 H NITROGEN (BEAKER) (test code = 354) CREATININE 2.51 mg/dL 0.57-1.25 H (BEAKER) (test code = 358) GLUCOSE RANDOM 167 mg/dL 70-105 H (BEAKER) (test code = 652) CALCIUM (BEAKER) 9.0 mg/dL 8.4-10.2 (test code = 697) EGFR (BEAKER) 20 Interpretatio n of eGFR (test code = mL/min/1.73 values Stage De scription 1092) sq m Result G1 Mckayla l or high >=90 G2 Mildly decreased 60-89 G3a Mildl y to moderately 45-5 9 G3b Moderately to s everely 30-44 G4 Severl y decreased 15-29 G5 Kidney failure <15Reported eGF R is based on the CKD-EPI 2020 equation that d oes not use a race coefficientEsti mated GFR is not as accur ate as Creatinine Sera chao in predicting glom erular filtration rate . Estimated GFR is not appl icable for dialysis patien ts Rouge Mixer ID - PITER [id number] 01:46:41 Test Item Value Reference Range Interpretation Comments MAGNESIUM (BEAKER) (test code = 2.1 mg/dL 1.6-2.6 627) Rouge Mixer ID - PITER [id number] 01:43:22 Test Item Value Reference Range Interpretation Comments PARTIAL THROMBOPLASTIN TIME 115.2 seconds 22.5-36.0 H (BEAKER) (test code = 760) POCT-GLUCOSE [id number] 20:31:20 Test Item Value Reference Range Interpretation Comments POC-GLUCOSE METER 150 mg/dL 70-110 H : TESTED A T [facility] 6720 (BEAKER) (test code = [facility], 153) [address]661: Rouge Mixer/Techni tawana ID = [id number] for TEGAN FORD [id number] 18:00:17 Test Item Value Reference Range Interpretation Comments PARTIAL THROMBOPLASTIN TIME 52.6 seconds 22.5-36.0 H (BEAKER) (test code = 760) POCT-GLUCOSE [id number] 16:29:05 Test Item Value Reference Range Interpretation Comments POC-GLUCOSE METER 211 mg/dL 70-110 H : TESTED A T [facility] 6720 (BEAKER) (test code = [facility], 153) 91219: Rouge Mixer/Techni tawana ID = [id number] for Khadijah Samuel POCT-GLUCOSE [id number] 12:10:20 Test Item Value Reference Range Interpretation Comments POC-GLUCOSE METER 112 mg/dL 70-110 H : TESTED A T [facility] 6720 (BEAKER) (test code = [facility], 1538) 40176: Rouge Mixer/Techni tawana ID = [id number] for Khadijah Samuel [id number] 10:19:02 Test Item Value Reference Range Interpretation Comments PARTIAL THROMBOPLASTIN TIME 71.0 seconds 22.5-36.0 H (BEAKER) (test code = 760) POCT-GLUCOSE [id number] 08:12:04 Test Item Value Reference Range Interpretation Comments POC-GLUCOSE METER 92 mg/dL 70-110 : TESTED A T [facility] 6720 (BEAKER) (test code = [facility], 1538) 22739: Rouge Mixer/Techni tawana ID = [id number] for Khadijah Schneider [id number] 08:10:16 Test Item Value Reference Range Interpretation Comments PARTIAL THROMBOPLASTIN TIME 130.3 seconds 22.5-36.0 H (BEAKER) (test code = 760) BASIC METABOLIC [id number] 01:44:10 Test Item Value Reference Range Interpretation Comments SODIUM (BEAKER) 131 meq/L 136-145 L (test code = 381) POTASSIUM 4.2 meq/L 3.5-5.1 (BEAKER) (test code = 379) CHLORIDE (BEAKER) 100 meq/L 98-107 (test code = 382) CO2 (BEAKER) 26 meq/L 22-29 (test code = 355) BLOOD UREA 75 mg/dL 7-21 H NITROGEN (BEAKER) (test code = 354) CREATININE 2.36 mg/dL 0.57-1.25 H (BEAKER) (test code = 358) GLUCOSE RANDOM 127 mg/dL 70-105 H (BEAKER) (test code = 652) CALCIUM (BEAKER) 9.1 mg/dL 8.4-10.2 (test code = 697) EGFR (BEAKER) 21 Interpretatio n of eGFR (test code = mL/min/1.73 values Stage De scription 1092) sq m Result G1 Mckayla l or high >=90 G2 Mildly decreased 60-89 G3a Mildl y to moderately 45-5 9 G3b Moderately to s everely 30-44 G4 Severl y decreased 15-29 G5 Kidney failure <15Reported eGF R is based on the CKD-EPI 2020 equation that d oes not use a race coefficientEsti mated GFR is not as accur ate as Creatinine Sera guidry in predicting glom erular filtration rate . Estimated GFR is not appl icable for dialysis patien ts Rouge Mixer ID - [id number] 01:37:39 Test Item Value Reference Range Interpretation Comments MAGNESIUM (BEAKER) (test code = 2.1 mg/dL 1.6-2.6 627) Rouge Mixer ID - ADMINHEPATIC FUNCTION [id number] 01:37:39 Test Item Value Reference Range Interpretation Comments TOTAL PROTEIN (BEAKER) (test code = 6.2 gm/dL 6.0-8.3 770) ALBUMIN (BEAKER) (test code = 1145) 2.8 g/dL 3.5-5.0 L BILIRUBIN TOTAL (BEAKER) (test code 0.6 mg/dL 0.2-1.2 = 377) BILIRUBIN DIRECT (BEAKER) (test 0.2 mg/dL 0.1-0.5 code = 706) ALKALINE PHOSPHATASE (BEAKER) (test 57 U/L 40-150 code = 346) AST (SGOT) (BEAKER) (test code = 19 U/L 5-34 353) ALT (SGPT) (BEAKER) (test code = 12 U/L 6-55 347) Rouge Mixer ID - [id number] 01:16:13 Test Item Value Reference Range Interpretation Comments PARTIAL THROMBOPLASTIN TIME 58.9 seconds 22.5-36.0 H (BEAKER) (test code = 760) POCT-GLUCOSE [id number] 20:46:46 Test Item Value Reference Range Interpretation Comments POC-GLUCOSE METER 123 mg/dL 70-110 H : TESTED A T [facility] 6720 (BEAKER) (test code = [facility], 1538) [address]12: Rouge Mixer/Techni tawana ID = [id number] for TEGAN FORD POCT-GLUCOSE [id number] 16:46:32 Test Item Value Reference Range Interpretation Comments POC-GLUCOSE METER 116 mg/dL 70-110 H : TESTED A T [facility] 6720 (BEAKER) (test code = [facility], 1538) 36427: Rouge Mixer/Techni tawana ID = [id number] for Adolfo josephKhadijah [id number] 16:04:36 Test Item Value Reference Range Interpretation Comments PARTIAL THROMBOPLASTIN TIME 79.8 seconds 22.5-36.0 H (BEAKER) (test code = 760) [id number] 14:07:59 Test Item Value Reference Range Interpretation Comments PARTIAL THROMBOPLASTIN TIME 125.7 seconds 22.5-36.0 H (BEAKER) (test code = 760) US arterial doppler leg, [id number] 12:36:10Ejection FractionSLEH ECHO [facility]ARTLAB [facility] 2022-07-14 12:36:10Ejection FractionSLEH ECHO HEARTLAB [facility], [id number] 12:36:10Ejection FractionSLEH ECHO HEARTLAB [facility], [id number] 12:36:10Ejection FractionSLEH ECHO HEARTLAB [facility], left 2022-07-14 12:36:10Ejection FractionSLEH ECHO HEARTLAB MK[facility], [id number] 12:36:10Ejection FractionSLEH ECHO HEARTLAB MKCK[facility], [id number] 12:36:10Ejection FractionSLEH ECHO HEARTLAB MKCK[facility], left 2022-07-14 12:36:10Ejection FractionSLEH ECHO HEARTLAB MK[facility], [id number] 12:36:10Ejection FractionSLEH ECHO HEARTLAB MKCK[facility], [id number] 12:36:10Ejection FractionSLEH ECHO HEARTLAB MKCK[facility]ON [facility], left 2022-07-14 12:36:10Ejection FractionSLEH ECHO HEARTLAB MKCKESSON [facility] [id number] 12:24:50 Test Item Value Reference Range Interpretation Comments POC-GLUCOSE METER 120 mg/dL 70-110 H : TESTED A T [facility] 6720 (BEAKER) (test code = [facility], 1538) [address]24: Rouge Mixer/Techni tawana ID = [id number] for Khadijah Samuel POC-Glucose [id number] 10:36:26 Test Item Value Reference Range Interpretation Comments POC-Glucose Meter (test 110 mg/dL 70-110 : TE STED AT [facility] code = 1538) 6720 [facility] [place], 7[address]: Rouge Mixer/Techni tawana ID = [id number] for Khadijah Schneider Lab Interpretation (test Normal code = 71967-4) [facility] [id number] 10:36:26 Test Item Value Reference Range Interpretation Comments POC-GLUCOSE METER 110 mg/dL 70-110 : [facility] ([facility] (test code = [facility], 1538) [address]: Rouge Mixer/Techni tawana ID = [id number] for Khadijah Samuel BASIC METABOLIC [id number] 06:54:50 Test Item Value Reference Range Interpretation Comments SODIUM (BEAKER) 139 meq/L 136-145 (test code = 381) POTASSIUM 3.8 meq/L 3.5-5.1 (BEAKER) (test code = 379) CHLORIDE (BEAKER) 104 meq/L 98-107 (test code = 382) CO2 (BEAKER) 27 meq/L 22-29 (test code = 355) BLOOD UREA 81 mg/dL 7-21 H NITROGEN (BEAKER) (test code = 354) CREATININE 2.53 mg/dL 0.57-1.25 H (BEAKER) (test code = 358) GLUCOSE RANDOM 77 mg/dL 70-105 (BEAKER) (test code = 652) CALCIUM (BEAKER) 9.3 mg/dL 8.4-10.2 (test code = 697) EGFR (BEAKER) 20 Interpretatio n of eGFR (test code = mL/min/1.73 values Stage De scription 1092) sq m Result G1 Mckayla l or high >=90 G2 Mildly decreased 60-89 G3a Mildl y to moderately 45-5 9 G3b Moderately to s everely 30-44 G4 Severl y decreased 15-29 G5 Kidney failure <15Reported eGF R is based on the CKD-EPI 2020 equation that d oes not use a race coefficientEsti mated GFR is not as accur ate as Creatinine Sera guidry in predicting glom erular filtration rate . Estimated GFR is not appl icable for dialysis patien ts Rouge Mixer ID - [id number] 06:47:28 Test Item Value Reference Range Interpretation Comments PARTIAL THROMBOPLASTIN TIME 92.8 seconds 22.5-36.0 H (BEAKER) (test code = 760) [id number] 06:47:09 Test Item Value Reference Range Interpretation Comments MAGNESIUM (BEAKER) (test code = 2.1 mg/dL 1.6-2.6 627) Rouge Mixer ID - ADMINHEPATIC FUNCTION [id number] 06:47:09 Test Item Value Reference Range Interpretation Comments TOTAL PROTEIN (BEAKER) (test code = 6.5 gm/dL 6.0-8.3 770) ALBUMIN (BEAKER) (test code = 1145) 3.0 g/dL 3.5-5.0 L BILIRUBIN TOTAL (BEAKER) (test code 0.7 mg/dL 0.2-1.2 = 377) BILIRUBIN DIRECT (BEAKER) (test 0.3 mg/dL 0.1-0.5 code = 706) ALKALINE PHOSPHATASE (BEAKER) (test 61 U/L 40-150 code = 346) AST (SGOT) (BEAKER) (test code = 17 U/L 5-34 353) ALT (SGPT) (BEAKER) (test code = 14 U/L 6-55 347) Rouge Mixer ID - ADMINCBC (HEMOGRAM ONLY)2022-07-14 06:27:04 Test Item Value Reference Range Interpretation Comments WHITE BLOOD CELL COUNT (BEAKER) 7.2 K/ L 3.5-10.5 (test code = 775) RED BLOOD CELL COUNT (BEAKER) 2.76 M/ L 3.93-5.22 L (test code = 761) HEMOGLOBIN (BEAKER) (test code = 8.0 GM/DL 11.2-15.7 L 410) HEMATOCRIT (BEAKER) (test code = 25.7 % 34.1-44.9 L 411) MEAN CORPUSCULAR VOLUME (BEAKER) 93 fL 79-95 (test code = 753) MEAN CORPUSCULAR HEMOGLOBIN 29.0 pg 25.6-32.2 (BEAKER) (test code = 751) MEAN CORPUSCULAR HEMOGLOBIN CONC 31.1 GM/DL 32.2-35.5 L (BEAKER) (test code = 752) RED CELL DISTRIBUTION WIDTH 16.4 % 11.7-14.4 H (BEAKER) (test code = 412) PLATELET COUNT (BEAKER) (test 135 K/CU MM 150-450 L code = 756) MEAN PLATELET VOLUME (BEAKER) 12.6 fL 9.4-12.3 H (test code = 754) NUCLEATED RED BLOOD CELLS 0 /100 WBC 0-0 (BEAKER) (test code = 413) COMPREHENSIVE METABOLIC [id number] 20:50:11 Test Item Value Reference Range Interpretation Comments TOTAL PROTEIN 6.8 gm/dL 6.0-8.3 (BEAKER) (test code = 770) ALBUMIN (BEAKER) 3.1 g/dL 3.5-5.0 L (test code = 1145) ALKALINE 66 U/L 40-150 PHOSPHATASE (BEAKER) (test code = 346) BILIRUBIN TOTAL 0.6 mg/dL 0.2-1.2 (BEAKER) (test code = 377) SODIUM (BEAKER) 137 meq/L 136-145 (test code = 381) POTASSIUM (BEAKER) 4.2 meq/L 3.5-5.1 (test code = 379) CHLORIDE (BEAKER) 103 meq/L 98-107 (test code = 382) CO2 (BEAKER) (test 27 meq/L 22-29 code = 355) BLOOD UREA 82 mg/dL 7-21 H NITROGEN (BEAKER) (test code = 354) CREATININE 2.65 mg/dL 0.57-1.25 H (BEAKER) (test code = 358) GLUCOSE RANDOM 95 mg/dL 70-105 (BEAKER) (test code = 652) CALCIUM (BEAKER) 9.5 mg/dL 8.4-10.2 (test code = 697) AST (SGOT) 18 U/L 5-34 (BEAKER) (test code = 353) ALT (SGPT) 17 U/L 6-55 (BEAKER) (test code = 347) EGFR (BEAKER) 19 Interpretatio n of eGFR (test code = 1092) mL/min/1.[address] age Description sq m Result G1 Mckayla l or high >=90 G2 Mildly decreased 60-89 G3a Mild ly to moderately 45-5 9 G3b Moderately to s everely 30-44 G4 Severl y decreased 15-29 G5 Kidney failure <15Reported eGF R is based on the CKD-EPI 2020 equation that d oes not use a race coefficientEsti mated GFR is not as accur ate as Creatinine Sera chao in predicting glom erular filtration rate . Estimated GFR is not appl icable for dialysis patien ts Rouge Mixer ID - ADMINPT/[id number] 20:35:23 Test Item Value Reference Range Interpretation Comments PROTIME (BEAKER) (test code = 20.3 seconds 11.9-14.2 H 759) INR (BEAKER) (test code = 370) 1.86 <=5.90 PARTIAL THROMBOPLASTIN TIME 31.1 seconds 22.5-36.0 (BEAKER) (test code = 760) RECOMMENDED COUMADIN/WARFARIN INR THERAPY RANGESSTANDARD DOSE: 2.0 - 3.0 Includes: PROPHYLAXIS for venous thrombosis, systemic embolization; TREATMENT for venous thrombosis and/or pulmonary embolus.HIGH RISK: Target INR is 2.5-3.5 for patients with mechanical heart valves.CBC W/PLT COUNT & AUTO [id number] 20:26:39 Test Item Value Reference Range Interpretation Comments WHITE BLOOD CELL COUNT (BEAKER) 7.2 K/ L 3.5-10.5 (test code = 775) RED BLOOD CELL COUNT (BEAKER) 2.68 M/ L 3.93-5.22 L (test code = 761) HEMOGLOBIN (BEAKER) (test code = 7.8 GM/DL 11.2-15.7 L 410) HEMATOCRIT (BEAKER) (test code = 25.2 % 34.1-44.9 L 411) MEAN CORPUSCULAR VOLUME (BEAKER) 94 fL 79-95 (test code = 753) MEAN CORPUSCULAR HEMOGLOBIN 29.1 pg 25.6-32.2 (BEAKER) (test code = 751) MEAN CORPUSCULAR HEMOGLOBIN CONC 31.0 GM/DL 32.2-35.5 L (BEAKER) (test code = 752) RED CELL DISTRIBUTION WIDTH 16.6 % 11.7-14.4 H (BEAKER) (test code = 412) PLATELET COUNT (BEAKER) (test 133 K/CU MM 150-450 L code = 756) MEAN PLATELET VOLUME (BEAKER) 12.5 fL 9.4-12.3 H (test code = 754) NUCLEATED RED BLOOD CELLS 0 /100 WBC 0-0 (BEAKER) (test code = 413) NEUTROPHILS RELATIVE PERCENT 61 % (BEAKER) (test code = 429) LYMPHOCYTES RELATIVE PERCENT 23 % (BEAKER) (test code = 430) MONOCYTES RELATIVE PERCENT 9 % (BEAKER) (test code = 431) EOSINOPHILS RELATIVE PERCENT 6 % (BEAKER) (test code = 432) BASOPHILS RELATIVE PERCENT 1 % (BEAKER) (test code = 437) NEUTROPHILS ABSOLUTE COUNT 4.44 K/ L 1.56-6.13 (BEAKER) (test code = 670) LYMPHOCYTES ABSOLUTE COUNT 1.63 K/ L 1.18-3.74 (BEAKER) (test code = 414) MONOCYTES ABSOLUTE COUNT (BEAKER) 0.67 K/ L 0.24-0.36 H (test code = 415) EOSINOPHILS ABSOLUTE COUNT 0.41 K/ L 0.04-0.36 H (BEAKER) (test code = 416) BASOPHILS ABSOLUTE COUNT (BEAKER) 0.05 K/ L 0.01-0.08 (test code = 417) IMMATURE GRANULOCYTES-RELATIVE 0.40 % 0.00-1.00 PERCENT (BEAKER) (test code = 2801) BASIC METABOLIC [id number] 05:19:02 Test Item Value Reference Range Interpretation Comments SODIUM (BEAKER) 134 meq/L 136-145 L (test code = 381) POTASSIUM 4.5 meq/L 3.5-5.1 (BEAKER) (test code = 379) CHLORIDE (BEAKER) 102 meq/L 98-107 (test code = 382) CO2 (BEAKER) 25 meq/L 22-29 (test code = 355) BLOOD UREA 91 mg/dL 7-21 H NITROGEN (BEAKER) (test code = 354) CREATININE 1.93 mg/dL 0.57-1.25 H (BEAKER) (test code = 358) GLUCOSE RANDOM 114 mg/dL 70-105 H (BEAKER) (test code = 652) CALCIUM (BEAKER) 9.2 mg/dL 8.4-10.2 (test code = 697) EGFR (BEAKER) 27 Interpretatio n of eGFR (test code = mL/min/1.73 values Stage De scription 1092) sq m Result G1 Mckayla l or high >=90 G2 Mildly decreased 60-89 G3a Mildl y to moderately 45-5 9 G3b Moderately to s everely 30-44 G4 Sever ly decreased 15-29 G5 Kidney failure <15Repo rted eGFR is based on the CKD-EPI 2020 equation t hat does not use a race coefficientEsti mated GFR is not as accur ate as Creatinine Sera chao in predicting glom erular filtration rate . Estimated GFR is not appl icable for dialysis patien ts Rouge Mixer ID - [id number] 05:15:41 Test Item Value Reference Range Interpretation Comments MAGNESIUM (BEAKER) (test code = 1.9 mg/dL 1.6-2.6 627) [employer] Mixer ID - [id number] 05:15:41 Test Item Value Reference Range Interpretation Comments PHOSPHORUS (BEAKER) (test code = 3.7 mg/dL 2.3-4.7 604) [employer] Mixer ID - [id number] 06:31:24 Test Item Value Reference Range Interpretation Comments MAGNESIUM (BEAKER) (test code = 2.0 mg/dL 1.6-2.6 627) [employer]er ID - PITER [id number] 06:31:24 Test Item Value Reference Range Interpretation Comments PHOSPHORUS (BEAKER) (test code = 3.4 mg/dL 2.3-4.7 604) [employer] Mixer ID - PITER GBASIC METABOLIC [id number] 06:31:23 Test Item Value Reference Range Interpretation Comments SODIUM (BEAKER) 136 meq/L 136-145 (test code = 381) POTASSIUM 4.3 meq/L 3.5-5.1 (BEAKER) (test code = 379) CHLORIDE (BEAKER) 105 meq/L 98-107 (test code = 382) CO2 (BEAKER) 25 meq/L 22-29 (test code = 355) BLOOD UREA 85 mg/dL 7-21 H NITROGEN (BEAKER) (test code = 354) CREATININE 1.76 mg/dL 0.57-1.25 H (BEAKER) (test code = 358) GLUCOSE RANDOM 152 mg/dL 70-105 H (BEAKER) (test code = 652) CALCIUM (BEAKER) 9.3 mg/dL 8.4-10.2 (test code = 697) EGFR (BEAKER) 30 Interpretatio n of eGFR (test code = mL/min/1.73 values Stage De scription 1092) sq m Result G1 Mckayla l or high >=90 G2 Mildly decreased 60-89 G3a Mildl y to moderately 45-5 9 G3b Moderately to s everely 30-44 G4 Severl y decreased 15-29 G5 Kidney failure <15Reported eGF R is based on the CKD-EPI 2020 equation that d oes not use a race coefficientEsti mated GFR is not as accur ate as Creatinine Sera chao in predicting glom erular filtration rate . Estimated GFR is not appl icable for dialysis patien ts [employer] ID - PITER GCBC (HEMOGRAM ONLY)2022-06-25 05:55:08 Test Item Value Reference Range Interpretation Comments WHITE BLOOD CELL COUNT (BEAKER) 7.6 K/ L 3.5-10.5 (test code = 775) RED BLOOD CELL COUNT (BEAKER) 2.48 M/ L 3.93-5.22 L (test code = 761) HEMOGLOBIN (BEAKER) (test code = 7.2 GM/DL 11.2-15.7 L 410) HEMATOCRIT (BEAKER) (test code = 23.6 % 34.1-44.9 L 411) MEAN CORPUSCULAR VOLUME (BEAKER) 95 fL 79-95 (test code = 753) MEAN CORPUSCULAR HEMOGLOBIN 29.0 pg 25.6-32.2 (BEAKER) (test code = 751) MEAN CORPUSCULAR HEMOGLOBIN CONC 30.5 GM/DL 32.2-35.5 L (BEAKER) (test code = 752) RED CELL DISTRIBUTION WIDTH 16.4 % 11.7-14.4 H (BEAKER) (test code = 412) PLATELET COUNT (BEAKER) (test 179 K/CU MM 150-450 code = 756) MEAN PLATELET VOLUME (BEAKER) 12.2 fL 9.4-12.3 (test code = 754) NUCLEATED RED BLOOD CELLS 0 /100 WBC 0-0 (BEAKER) (test code = 413) POC-Glucose [id number] 21:18:27 Test Item Value Reference Range Interpretation Comments POC-Glucose Meter (test 125 mg/dL 70-110 H : TE STED AT [facility] code = 1538) [address] [place] [place], [address]: [employer]/Techni tawana ID = [id number] for [facility] Interpretation (test Abnormal code = 03026-9) [facility] [id number] 21:18:27 Test Item Value Reference Range Interpretation Comments POC-GLUCOSE METER 125 mg/dL 70-110 H : TESTED A T [facility] 6720 (BEAKER) (test code = RADHA Riddle [facility], 1538) [address]: [employer]/Techni tawana ID = [id number] for Vera Thompson [id number] 12:38:02 Test Item Value Reference Range Interpretation Comments POTASSIUM (BEAKER) (test code = 4.5 meq/L 3.5-5.1 379) [employer] ID - ADMINBASIC METABOLIC [id number] 15:10:47 Test Item Value Reference Range Interpretation Comments SODIUM (BEAKER) 134 meq/L 136-145 L (test code = 381) POTASSIUM 5.2 meq/L 3.5-5.1 H (BEAKER) (test code = 379) CHLORIDE (BEAKER) 105 meq/L 98-107 (test code = 382) CO2 (BEAKER) 23 meq/L 22-29 (test code = 355) BLOOD UREA 65 mg/dL 7-21 H NITROGEN (BEAKER) (test code = 354) CREATININE 1.76 mg/dL 0.57-1.25 H (BEAKER) (test code = 358) GLUCOSE RANDOM 137 mg/dL 70-105 H (BEAKER) (test code = 652) CALCIUM (BEAKER) 9.1 mg/dL 8.4-10.2 (test code = 697) EGFR (BEAKER) 30 Interpretatio n of eGFR (test code = mL/min/1.73 values Stage De scription 1092) sq m Result G1 Mckayla l or high >=90 G2 Mildly decreased 60-89 G3a Mildl y to moderately 45-5 9 G3b Moderately to s everely 30-44 G4 Severl y decreased 15-29 G5 Kidney failure <15Reported eGF R is based on the CKD-EPI 2021 equation that d oes not use a race coefficientEsti mated GFR is not as accur ate as Creatinine Sera chao in predicting glom erular filtration rate . Estimated GFR is not appl icable for dialysis patien ts [employer] ID - ADMINBASIC METABOLIC [id number] 05:00:32 Test Item Value Reference Range Interpretation Comments SODIUM (BEAKER) 129 meq/L 136-145 L (test code = 381) POTASSIUM 5.0 meq/L 3.5-5.1 (BEAKER) (test code = 379) CHLORIDE (BEAKER) 103 meq/L 98-107 (test code = 382) CO2 (BEAKER) 22 meq/L 22-29 (test code = 355) BLOOD UREA 58 mg/dL 7-21 H NITROGEN (BEAKER) (test code = 354) CREATININE 1.66 mg/dL 0.57-1.25 H (BEAKER) (test code = 358) GLUCOSE RANDOM 130 mg/dL 70-105 H (BEAKER) (test code = 652) CALCIUM (BEAKER) 9.1 mg/dL 8.4-10.2 (test code = 697) EGFR (BEAKER) 33 Interpretatio n of eGFR (test code = mL/min/1.73 values Stage De scription 1092) sq m Result G1 Mckayla l or high >=90 G2 Mildly decreased 60-89 G3a Mildl y to moderately 45-5 9 G3b Moderately to s everely 30-44 G4 Severl y decreased 15-29 G5 Kidney failure <15Reported eGF R is based on the CKD-EPI 2021 equation that d oes not use a race coefficientEsti mated GFR is not as accur ate as Creatinine Sera chao in predicting glom erular filtration rate . Estimated GFR is not appl icable for dialysis patien ts [employer] ID - PITER GOperator ID - BSCBC W/PLT COUNT & AUTO DIFFERENTIAL 2022-06-21 04:28:53 Test Item Value Reference Range Interpretation Comments WHITE BLOOD CELL COUNT (BEAKER) 7.9 K/ L 3.5-10.5 (test code = 775) RED BLOOD CELL COUNT (BEAKER) 2.73 M/ L 3.93-5.22 L (test code = 761) HEMOGLOBIN (BEAKER) (test code = 7.9 GM/DL 11.2-15.7 L 410) HEMATOCRIT (BEAKER) (test code = 26.1 % 34.1-44.9 L 411) MEAN CORPUSCULAR VOLUME (BEAKER) 96 fL 79-95 H (test code = 753) MEAN CORPUSCULAR HEMOGLOBIN 28.9 pg 25.6-32.2 (BEAKER) (test code = 751) MEAN CORPUSCULAR HEMOGLOBIN CONC 30.3 GM/DL 32.2-35.5 L (BEAKER) (test code = 752) RED CELL DISTRIBUTION WIDTH 16.2 % 11.7-14.4 H (BEAKER) (test code = 412) PLATELET COUNT (BEAKER) (test 184 K/CU MM 150-450 code = 756) MEAN PLATELET VOLUME (BEAKER) 12.0 fL 9.4-12.3 (test code = 754) NUCLEATED RED BLOOD CELLS 0 /100 WBC 0-0 (BEAKER) (test code = 413) NEUTROPHILS RELATIVE PERCENT 68 % (BEAKER) (test code = 429) LYMPHOCYTES RELATIVE PERCENT 19 % (BEAKER) (test code = 430) MONOCYTES RELATIVE PERCENT 9 % (BEAKER) (test code = 431) EOSINOPHILS RELATIVE PERCENT 3 % (BEAKER) (test code = 432) BASOPHILS RELATIVE PERCENT 1 % (BEAKER) (test code = 437) NEUTROPHILS ABSOLUTE COUNT 5.41 K/ L 1.56-6.13 (BEAKER) (test code = 670) LYMPHOCYTES ABSOLUTE COUNT 1.47 K/ L 1.18-3.74 (BEAKER) (test code = 414) MONOCYTES ABSOLUTE COUNT (BEAKER) 0.70 K/ L 0.24-0.36 H (test code = 415) EOSINOPHILS ABSOLUTE COUNT 0.22 K/ L 0.04-0.36 (BEAKER) (test code = 416) BASOPHILS ABSOLUTE COUNT (BEAKER) 0.05 K/ L 0.01-0.08 (test code = 417) IMMATURE GRANULOCYTES-RELATIVE 1.10 % 0.00-1.00 H PERCENT (BEAKER) (test code = 2801) BASIC METABOLIC [id number] 09:09:52 Test Item Value Reference Range Interpretation Comments SODIUM (BEAKER) 134 meq/L 136-145 L (test code = 381) POTASSIUM 4.6 meq/L 3.5-5.1 (BEAKER) (test code = 379) CHLORIDE (BEAKER) 107 meq/L 98-107 (test code = 382) CO2 (BEAKER) 22 meq/L 22-29 (test code = 355) BLOOD UREA 51 mg/dL 7-21 H NITROGEN (BEAKER) (test code = 354) CREATININE 1.81 mg/dL 0.57-1.25 H (BEAKER) (test code = 358) GLUCOSE RANDOM 107 mg/dL 70-105 H (BEAKER) (test code = 652) CALCIUM (BEAKER) 8.7 mg/dL 8.4-10.2 (test code = 697) EGFR (BEAKER) 29 Interpretatio n of eGFR (test code = mL/min/1.73 values Stage De scription 1092) sq m Result G1 Mckayla l or high >=90 G2 Mildly decreased 60-89 G3a Mildl y to moderately 45-5 9 G3b Moderately to s everely 30-44 G4 Severl y decreased 15-29 G5 Kidney failure <15Reported eGF R is based on the CKD-EPI 2020 equation that d oes not use a race coefficientEsti mated GFR is not as accur ate as Creatinine Sera guidry in predicting glom erular filtration rate . Estimated GFR is not appl icable for dialysis patien ts [employer] ID - MARCOCBC W/PLT COUNT & AUTO [id number] 05:31:47 Test Item Value Reference Range Interpretation Comments WHITE BLOOD CELL COUNT (BEAKER) 7.8 K/ L 3.5-10.5 (test code = 775) RED BLOOD CELL COUNT (BEAKER) 2.65 M/ L 3.93-5.22 L (test code = 761) HEMOGLOBIN (BEAKER) (test code = 7.6 GM/DL 11.2-15.7 L 410) HEMATOCRIT (BEAKER) (test code = 24.6 % 34.1-44.9 L 411) MEAN CORPUSCULAR VOLUME (BEAKER) 93 fL 79-95 (test code = 753) MEAN CORPUSCULAR HEMOGLOBIN 28.7 pg 25.6-32.2 (BEAKER) (test code = 751) MEAN CORPUSCULAR HEMOGLOBIN CONC 30.9 GM/DL 32.2-35.5 L (BEAKER) (test code = 752) RED CELL DISTRIBUTION WIDTH 16.2 % 11.7-14.4 H (BEAKER) (test code = 412) PLATELET COUNT (BEAKER) (test 173 K/CU MM 150-450 code = 756) MEAN PLATELET VOLUME (BEAKER) 11.8 fL 9.4-12.3 (test code = 754) NUCLEATED RED BLOOD CELLS 0 /100 WBC 0-0 (BEAKER) (test code = 413) NEUTROPHILS RELATIVE PERCENT 73 % (BEAKER) (test code = 429) LYMPHOCYTES RELATIVE PERCENT 15 % (BEAKER) (test code = 430) MONOCYTES RELATIVE PERCENT 9 % (BEAKER) (test code = 431) EOSINOPHILS RELATIVE PERCENT 2 % (BEAKER) (test code = 432) BASOPHILS RELATIVE PERCENT 0 % (BEAKER) (test code = 437) NEUTROPHILS ABSOLUTE COUNT 5.66 K/ L 1.56-6.13 (BEAKER) (test code = 670) LYMPHOCYTES ABSOLUTE COUNT 1.17 K/ L 1.18-3.74 L (BEAKER) (test code = 414) MONOCYTES ABSOLUTE COUNT (BEAKER) 0.67 K/ L 0.24-0.36 H (test code = 415) EOSINOPHILS ABSOLUTE COUNT 0.14 K/ L 0.04-0.36 (BEAKER) (test code = 416) BASOPHILS ABSOLUTE COUNT (BEAKER) 0.03 K/ L 0.01-0.08 (test code = 417) IMMATURE GRANULOCYTES-RELATIVE 1.20 % 0.00-1.00 H PERCENT (BEAKER) (test code = 2801) CREATINE KINASE (CK)2022-06-19 08:22:23 Test Item Value Reference Range Interpretation Comments CREATINE KINASE TOTAL (BEAKER) (test 834 U/L 29-200 H code = 380) [employer] IZAIAH - TERENCE LCOMPREHENSIVE METABOLIC [id number] 08:22:22 Test Item Value Reference Range Interpretation Comments TOTAL PROTEIN 6.7 gm/dL 6.0-8.3 (BEAKER) (test code = 770) ALBUMIN (BEAKER) 2.9 g/dL 3.5-5.0 L (test code = 1145) ALKALINE 92 U/L 40-150 PHOSPHATASE (BEAKER) (test code = 346) BILIRUBIN TOTAL 0.6 mg/dL 0.2-1.2 (BEAKER) (test code = 377) SODIUM (BEAKER) 136 meq/L 136-145 (test code = 381) POTASSIUM (BEAKER) 4.9 meq/L 3.5-5.1 (test code = 379) CHLORIDE (BEAKER) 108 meq/L 98-107 H (test code = 382) CO2 (BEAKER) (test 24 meq/L 22-29 code = 355) BLOOD UREA 50 mg/dL 7-21 H NITROGEN (BEAKER) (test code = 354) CREATININE 1.60 mg/dL 0.57-1.25 H (BEAKER) (test code = 358) GLUCOSE RANDOM 117 mg/dL 70-105 H (BEAKER) (test code = 652) CALCIUM (BEAKER) 9.1 mg/dL 8.4-10.2 (test code = 697) AST (SGOT) 70 U/L 5-34 H (BEAKER) (test code = 353) ALT (SGPT) 66 U/L 6-55 H (BEAKER) (test code = 347) EGFR (BEAKER) 34 Interpretatio n of eGFR (test code = 1092) mL/min/1.[address] age Description sq m Result G1 Mckayla l or high >=90 G2 Mildly decreased 60-89 G3a Mildl y to moderately 45-5 9 G3b Moderately to s everely 30-44 G4 Severl y decreased 15-29 G5 Kidney failure <15Reported eGF R is based on the CKD-EPI 2020 equation that d oes not use a race coefficientEsti mated GFR is not as accur ate as Creatinine Sera chao in predicting glom erular filtration rate . Estimated GFR is not appl icable for dialysis patien ts [employer] ID - TERENCE [id number] 08:22:22 Test Item Value Reference Range Interpretation Comments MAGNESIUM (BEAKER) (test code = 2.1 mg/dL 1.6-2.6 627) [employer] ID - TERENCE LB-TYPE NATRIURETIC FACTOR (BNP)2022-06-19 06:59:47 Test Item Value Reference Range Interpretation Comments B-TYPE NATRIURETIC PEPTIDE (BEAKER) 300 pg/mL 0-100 H (test code = 700) [employer] ID - TERENCE [id number] 06:29:21 Test Item Value Reference Range Interpretation Comments PARTIAL THROMBOPLASTIN TIME 66.3 seconds 22.5-36.0 H (BEAKER) (test code = 760) CBC W/PLT COUNT & AUTO [id number] 06:27:39 Test Item Value Reference Range Interpretation Comments WHITE BLOOD CELL COUNT (BEAKER) 8.7 K/ L 3.5-10.5 (test code = 775) RED BLOOD CELL COUNT (BEAKER) 3.04 M/ L 3.93-5.22 L (test code = 761) HEMOGLOBIN (BEAKER) (test code = 8.7 GM/DL 11.2-15.7 L 410) HEMATOCRIT (BEAKER) (test code = 28.7 % 34.1-44.9 L 411) MEAN CORPUSCULAR VOLUME (BEAKER) 94 fL 79-95 (test code = 753) MEAN CORPUSCULAR HEMOGLOBIN 28.6 pg 25.6-32.2 (BEAKER) (test code = 751) MEAN CORPUSCULAR HEMOGLOBIN CONC 30.3 GM/DL 32.2-35.5 L (BEAKER) (test code = 752) RED CELL DISTRIBUTION WIDTH 15.9 % 11.7-14.4 H (BEAKER) (test code = 412) PLATELET COUNT (BEAKER) (test 178 K/CU MM 150-450 code = 756) MEAN PLATELET VOLUME (BEAKER) 12.0 fL 9.4-12.3 (test code = 754) NUCLEATED RED BLOOD CELLS 0 /100 WBC 0-0 (BEAKER) (test code = 413) NEUTROPHILS RELATIVE PERCENT 74 % (BEAKER) (test code = 429) LYMPHOCYTES RELATIVE PERCENT 16 % (BEAKER) (test code = 430) MONOCYTES RELATIVE PERCENT 8 % (BEAKER) (test code = 431) EOSINOPHILS RELATIVE PERCENT 2 % (BEAKER) (test code = 432) BASOPHILS RELATIVE PERCENT 0 % (BEAKER) (test code = 437) NEUTROPHILS ABSOLUTE COUNT 6.35 K/ L 1.56-6.13 H (BEAKER) (test code = 670) LYMPHOCYTES ABSOLUTE COUNT 1.36 K/ L 1.18-3.74 (BEAKER) (test code = 414) MONOCYTES ABSOLUTE COUNT (BEAKER) 0.70 K/ L 0.24-0.36 H (test code = 415) EOSINOPHILS ABSOLUTE COUNT 0.13 K/ L 0.04-0.36 (BEAKER) (test code = 416) BASOPHILS ABSOLUTE COUNT (BEAKER) 0.03 K/ L 0.01-0.08 (test code = 417) IMMATURE GRANULOCYTES-RELATIVE 0.90 % 0.00-1.00 PERCENT (BEAKER) (test code = 2801) BASIC METABOLIC [id number] 22:49:20 Test Item Value Reference Range Interpretation Comments SODIUM (BEAKER) 134 meq/L 136-145 L (test code = 381) POTASSIUM 5.2 meq/L 3.5-5.1 H (BEAKER) (test code = 379) CHLORIDE (BEAKER) 107 meq/L 98-107 (test code = 382) CO2 (BEAKER) 22 meq/L 22-29 (test code = 355) BLOOD UREA 48 mg/dL 7-21 H NITROGEN (BEAKER) (test code = 354) CREATININE 1.55 mg/dL 0.57-1.25 H (BEAKER) (test code = 358) GLUCOSE RANDOM 124 mg/dL 70-105 H (BEAKER) (test code = 652) CALCIUM (BEAKER) 8.8 mg/dL 8.4-10.2 (test code = 697) EGFR (BEAKER) 35 Interpretatio n of eGFR (test code = mL/min/1.73 values Stage De scription 1092) sq m Result G1 Mckayla l or high >=90 G2 Mildly decreased 60-89 G3a Mildl y to moderately 45-5 9 G3b Moderately to s everely 30-44 G4 Severl y decreased 15-29 G5 Kidney failure <15Reported eGF R is based on the CKD-EPI 2021 equation that d oes not use a race coefficientEsti mated GFR is not as accur ate as Creatinine Sera guidry in predicting glom erular filtration rate . Estimated GFR is not appl icable for dialysis patien ts [employer] ID - [id number] 18:33:32 Test Item Value Reference Range Interpretation Comments PARTIAL THROMBOPLASTIN TIME 65.2 seconds 22.5-36.0 H (BEAKER) (test code = 760) COMPREHENSIVE METABOLIC [id number] 05:59:05 Test Item Value Reference Range Interpretation Comments TOTAL PROTEIN 6.0 gm/dL 6.0-8.3 (BEAKER) (test code = 770) ALBUMIN (BEAKER) 2.5 g/dL 3.5-5.0 L (test code = 1145) ALKALINE 81 U/L 40-150 PHOSPHATASE (BEAKER) (test code = 346) BILIRUBIN TOTAL 0.6 mg/dL 0.2-1.2 (BEAKER) (test code = 377) SODIUM (BEAKER) 135 meq/L 136-145 L (test code = 381) POTASSIUM (BEAKER) 5.6 meq/L 3.5-5.1 H (test code = 379) CHLORIDE (BEAKER) 109 meq/L 98-107 H (test code = 382) CO2 (BEAKER) (test 20 meq/L 22-29 L code = 355) BLOOD UREA 48 mg/dL 7-21 H NITROGEN (BEAKER) (test code = 354) CREATININE 1.42 mg/dL 0.57-1.25 H (BEAKER) (test code = 358) GLUCOSE RANDOM 87 mg/dL 70-105 (BEAKER) (test code = 652) CALCIUM (BEAKER) 8.9 mg/dL 8.4-10.2 (test code = 697) AST (SGOT) 81 U/L 5-34 H (BEAKER) (test code = 353) ALT (SGPT) 65 U/L 6-55 H (BEAKER) (test code = 347) EGFR (BEAKER) 39 Interpretatio n of eGFR (test code = 1092) mL/min/1.[address] age Description sq m Result G1 Mckayla l or high >=90 G2 Mildly decreased 60-89 G3a Mildl y to moderately 45-5 9 G3b Moderately to s everely 30-44 G4 Severl y decreased 15-29 G5 Kidney failure <15Reported eGF R is based on the CKD-EPI 2021 equation that d oes not use a race coefficientEsti mated GFR is not as accur ate as Creatinine Sera chao in predicting glom erular filtration rate . Estimated GFR is not appl icable for dialysis patien ts [employer] ID - [id number] 05:59:05 Test Item Value Reference Range Interpretation Comments MAGNESIUM (BEAKER) (test code = 2.1 mg/dL 1.6-2.6 627) [employer] ID - [id number] 05:59:05 Test Item Value Reference Range Interpretation Comments PHOSPHORUS (BEAKER) (test code = 3.1 mg/dL 2.3-4.7 604) [employer] ID - [id number] 05:01:35 Test Item Value Reference Range Interpretation Comments PARTIAL THROMBOPLASTIN TIME 57.3 seconds 22.5-36.0 H (BEAKER) (test code = 760) CBC W/PLT COUNT & AUTO [id number] 04:47:34 Test Item Value Reference Range Interpretation Comments WHITE BLOOD CELL COUNT (BEAKER) 7.5 K/ L 3.5-10.5 (test code = 775) RED BLOOD CELL COUNT (BEAKER) 2.63 M/ L 3.93-5.22 L (test code = 761) HEMOGLOBIN (BEAKER) (test code = 7.6 GM/DL 11.2-15.7 L 410) HEMATOCRIT (BEAKER) (test code = 24.5 % 34.1-44.9 L 411) MEAN CORPUSCULAR VOLUME (BEAKER) 93 fL 79-95 (test code = 753) MEAN CORPUSCULAR HEMOGLOBIN 28.9 pg 25.6-32.2 (BEAKER) (test code = 751) MEAN CORPUSCULAR HEMOGLOBIN CONC 31.0 GM/DL 32.2-35.5 L (BEAKER) (test code = 752) RED CELL DISTRIBUTION WIDTH 15.5 % 11.7-14.4 H (BEAKER) (test code = 412) PLATELET COUNT (BEAKER) (test 145 K/CU MM 150-450 L code = 756) MEAN PLATELET VOLUME (BEAKER) 12.1 fL 9.4-12.3 (test code = 754) NUCLEATED RED BLOOD CELLS 0 /100 WBC 0-0 (BEAKER) (test code = 413) NEUTROPHILS RELATIVE PERCENT 73 % (BEAKER) (test code = 429) LYMPHOCYTES RELATIVE PERCENT 15 % (BEAKER) (test code = 430) MONOCYTES RELATIVE PERCENT 9 % (BEAKER) (test code = 431) EOSINOPHILS RELATIVE PERCENT 2 % (BEAKER) (test code = 432) BASOPHILS RELATIVE PERCENT 0 % (BEAKER) (test code = 437) NEUTROPHILS ABSOLUTE COUNT 5.46 K/ L 1.56-6.13 (BEAKER) (test code = 670) LYMPHOCYTES ABSOLUTE COUNT 1.13 K/ L 1.18-3.74 L (BEAKER) (test code = 414) MONOCYTES ABSOLUTE COUNT (BEAKER) 0.67 K/ L 0.24-0.36 H (test code = 415) EOSINOPHILS ABSOLUTE COUNT 0.14 K/ L 0.04-0.36 (BEAKER) (test code = 416) BASOPHILS ABSOLUTE COUNT (BEAKER) 0.02 K/ L 0.01-0.08 (test code = 417) IMMATURE GRANULOCYTES-RELATIVE 1.10 % 0.00-1.00 H PERCENT (BEAKER) (test code = 2801) CALCIUM, [id number] 04:24:46 Test Item Value Reference Range Interpretation Comments CALCIUM IONIZED (BEAKER) (test 1.15 mmol/L 1.12-1.27 code = 698) PH, BLOOD (BEAKER) (test code = 7.41 1810) Prepare Leuko-Red [id number] 23:54:00 Test Item Value Reference Range Interpretation Comments Unit ABO (test code = B Pos [id number]) UNIT NUMBER (test code = [id number] 934-0) Status (test code = 8043783) TX_TIMEINCHART Blood Bank Product (test code RED BLOOD CELLS = 2263) PRODUCT CODE (test code = M0257X19 933-2) CROSSMATCH (test code = 2264) [facility] [id number] 23:54:00 Test Item Value Reference Range Interpretation Comments Unit ABO (test code = B Pos [id number]) UNIT NUMBER (test code = [id number] 934-0) Status (test code = 1067362) TX_TIMEINCHART Blood Bank Product (test code RED BLOOD CELLS = 2263) PRODUCT CODE (test code = X2744P71 933-2) CROSSMATCH (test code = 2264) [id number] 23:42:29 Test Item Value Reference Range Interpretation Comments PARTIAL THROMBOPLASTIN TIME 57.2 seconds 22.5-36.0 H (BEAKER) (test code = 760) [id number] 19:14:23 Test Item Value Reference Range Interpretation Comments PARTIAL THROMBOPLASTIN TIME 39.3 seconds 22.5-36.0 H (BEAKER) (test code = 760) [id number] 07:15:27 Test Item Value Reference Range Interpretation Comments PARTIAL THROMBOPLASTIN TIME 63.4 seconds 22.5-36.0 H (BEAKER) (test code = 760) CBC W/PLT COUNT & AUTO [id number] 06:55:42 Test Item Value Reference Range Interpretation Comments WHITE BLOOD CELL COUNT (BEAKER) 7.4 K/ L 3.5-10.5 (test code = 775) RED BLOOD CELL COUNT (BEAKER) 2.85 M/ L 3.93-5.22 L (test code = 761) HEMOGLOBIN (BEAKER) (test code = 8.2 GM/DL 11.2-15.7 L 410) HEMATOCRIT (BEAKER) (test code = 26.2 % 34.1-44.9 L 411) MEAN CORPUSCULAR VOLUME (BEAKER) 92 fL 79-95 (test code = 753) MEAN CORPUSCULAR HEMOGLOBIN 28.8 pg 25.6-32.2 (BEAKER) (test code = 751) MEAN CORPUSCULAR HEMOGLOBIN CONC 31.3 GM/DL 32.2-35.5 L (BEAKER) (test code = 752) RED CELL DISTRIBUTION WIDTH 15.3 % 11.7-14.4 H (BEAKER) (test code = 412) PLATELET COUNT (BEAKER) (test 138 K/CU MM 150-450 L code = 756) MEAN PLATELET VOLUME (BEAKER) 12.6 fL 9.4-12.3 H (test code = 754) NUCLEATED RED BLOOD CELLS 0 /100 WBC 0-0 (BEAKER) (test code = 413) NEUTROPHILS RELATIVE PERCENT 71 % (BEAKER) (test code = 429) LYMPHOCYTES RELATIVE PERCENT 16 % (BEAKER) (test code = 430) MONOCYTES RELATIVE PERCENT 9 % (BEAKER) (test code = 431) EOSINOPHILS RELATIVE PERCENT 2 % (BEAKER) (test code = 432) BASOPHILS RELATIVE PERCENT 1 % (BEAKER) (test code = 437) NEUTROPHILS ABSOLUTE COUNT 5.27 K/ L 1.56-6.13 (BEAKER) (test code = 670) LYMPHOCYTES ABSOLUTE COUNT 1.19 K/ L 1.18-3.74 (BEAKER) (test code = 414) MONOCYTES ABSOLUTE COUNT (BEAKER) 0.70 K/ L 0.24-0.36 H (test code = 415) EOSINOPHILS ABSOLUTE COUNT 0.13 K/ L 0.04-0.36 (BEAKER) (test code = 416) BASOPHILS ABSOLUTE COUNT (BEAKER) 0.04 K/ L 0.01-0.08 (test code = 417) IMMATURE GRANULOCYTES-RELATIVE 1.20 % 0.00-1.00 H PERCENT (BEAKER) (test code = 2801) BASIC METABOLIC [id number] 04:58:26 Test Item Value Reference Range Interpretation Comments SODIUM (BEAKER) 136 meq/L 136-145 (test code = 381) POTASSIUM 5.2 meq/L 3.5-5.1 H (BEAKER) (test code = 379) CHLORIDE (BEAKER) 107 meq/L 98-107 (test code = 382) CO2 (BEAKER) 19 meq/L 22-29 L (test code = 355) BLOOD UREA 51 mg/dL 7-21 H NITROGEN (BEAKER) (test code = 354) CREATININE 1.67 mg/dL 0.57-1.25 H (BEAKER) (test code = 358) GLUCOSE RANDOM 143 mg/dL 70-105 H (BEAKER) (test code = 652) CALCIUM (BEAKER) 8.9 mg/dL 8.4-10.2 (test code = 697) EGFR (BEAKER) 32 Interpretatio n of eGFR (test code = mL/min/1.73 values Stage De scription 1092) sq m Result G1 Mckalya l or high >=90 G2 Mildly decreased 60-89 G3a Mildl y to moderately 45-5 9 G3b Moderately to s everely 30-44 G4 Severl y decreased 15-29 G5 Kidney failure <15Reported eGF R is based on the CKD-EPI 2020 equation that d oes not use a race coefficientEsti mated GFR is not as accur ate as Creatinine Sera guidry in predicting glom erular filtration rate . Estimated GFR is not appl icable for dialysis patien ts [employer] ID - [id number] 02:38:27 Test Item Value Reference Range Interpretation Comments PARTIAL THROMBOPLASTIN TIME 55.8 seconds 22.5-36.0 H (BEAKER) (test code = 760) [id number] 21:49:20 Test Item Value Reference Range Interpretation Comments PARTIAL THROMBOPLASTIN TIME 52.4 seconds 22.5-36.0 H (BEAKER) (test code = 760) [id number] 09:52:41 Test Item Value Reference Range Interpretation Comments PARTIAL THROMBOPLASTIN TIME 65.0 seconds 22.5-36.0 H (BEAKER) (test code = 760) CREATINE KINASE (CK)2022-06-16 09:44:16 Test Item Value Reference Range Interpretation Comments CREATINE KINASE TOTAL (BEAKER) (test 3379 U/L 29-200 H code = 380) [employer] ID - MARCOCBC W/PLT COUNT & AUTO [id number] 09:41:35 Test Item Value Reference Range Interpretation Comments WHITE BLOOD CELL COUNT (BEAKER) 8.1 K/ L 3.5-10.5 (test code = 775) RED BLOOD CELL COUNT (BEAKER) 2.62 M/ L 3.93-5.22 L (test code = 761) HEMOGLOBIN (BEAKER) (test code = 7.3 GM/DL 11.2-15.7 L 410) HEMATOCRIT (BEAKER) (test code = 24.3 % 34.1-44.9 L 411) MEAN CORPUSCULAR VOLUME (BEAKER) 93 fL 79-95 (test code = 753) MEAN CORPUSCULAR HEMOGLOBIN 27.9 pg 25.6-32.2 (BEAKER) (test code = 751) MEAN CORPUSCULAR HEMOGLOBIN CONC 30.0 GM/DL 32.2-35.5 L (BEAKER) (test code = 752) RED CELL DISTRIBUTION WIDTH 15.6 % 11.7-14.4 H (BEAKER) (test code = 412) PLATELET COUNT (BEAKER) (test 132 K/CU MM 150-450 L code = 756) MEAN PLATELET VOLUME (BEAKER) 12.9 fL 9.4-12.3 H (test code = 754) NUCLEATED RED BLOOD CELLS 0 /100 WBC 0-0 (BEAKER) (test code = 413) NEUTROPHILS RELATIVE PERCENT 74 % (BEAKER) (test code = 429) LYMPHOCYTES RELATIVE PERCENT 15 % (BEAKER) (test code = 430) MONOCYTES RELATIVE PERCENT 8 % (BEAKER) (test code = 431) EOSINOPHILS RELATIVE PERCENT 2 % (BEAKER) (test code = 432) BASOPHILS RELATIVE PERCENT 0 % (BEAKER) (test code = 437) NEUTROPHILS ABSOLUTE COUNT 5.97 K/ L 1.56-6.13 (BEAKER) (test code = 670) LYMPHOCYTES ABSOLUTE COUNT 1.22 K/ L 1.18-3.74 (BEAKER) (test code = 414) MONOCYTES ABSOLUTE COUNT (BEAKER) 0.67 K/ L 0.24-0.36 H (test code = 415) EOSINOPHILS ABSOLUTE COUNT 0.14 K/ L 0.04-0.36 (BEAKER) (test code = 416) BASOPHILS ABSOLUTE COUNT (BEAKER) 0.02 K/ L 0.01-0.08 (test code = 417) IMMATURE GRANULOCYTES-RELATIVE 1.00 % 0.00-1.00 PERCENT (BEAKER) (test code = 2801) BASIC METABOLIC [id number] 04:42:32 Test Item Value Reference Range Interpretation Comments SODIUM (BEAKER) 131 meq/L 136-145 L (test code = 381) POTASSIUM 5.4 meq/L 3.5-5.1 H (BEAKER) (test code = 379) CHLORIDE (BEAKER) 106 meq/L 98-107 (test code = 382) CO2 (BEAKER) 20 meq/L 22-29 L (test code = 355) BLOOD UREA 52 mg/dL 7-21 H NITROGEN (BEAKER) (test code = 354) CREATININE 1.56 mg/dL 0.57-1.25 H (BEAKER) (test code = 358) GLUCOSE RANDOM 93 mg/dL 70-105 (BEAKER) (test code = 652) CALCIUM (BEAKER) 8.8 mg/dL 8.4-10.2 (test code = 697) EGFR (BEAKER) 35 Interpretati on of eGFR (test code = mL/min/1.73 values Stage De scription 1092) sq m Result G1 Mckayla l or high >=90 G2 Mildly decreased 60-89 G3a Mildl y to moderately 45- 59 G3b Moderately to s everely 30-44 G4 Severl y decreased 15-29 G5 Kidney failure <15Reported eGF R is based on the CKD-EPI 2020 equation that d oes not use a race coefficientEsti mated GFR is not as accur ate as Creatinine Sera guidry in predicting glom erular filtration rate . Estimated GFR is not appl icable for dialysis patien ts [employer] ID - PICHANTAL [id number] 04:16:58 Test Item Value Reference Range Interpretation Comments PARTIAL THROMBOPLASTIN TIME 58.5 seconds 22.5-36.0 H (BEAKER) (test code = 760) CBC W/PLT COUNT & AUTO [id number] 04:04:06 Test Item Value Reference Range Interpretation Comments WHITE BLOOD CELL COUNT (BEAKER) 7.1 K/ L 3.5-10.5 (test code = 775) RED BLOOD CELL COUNT (BEAKER) 2.42 M/ L 3.93-5.22 L (test code = 761) HEMOGLOBIN (BEAKER) (test code = 6.8 GM/DL 11.2-15.7 L 410) HEMATOCRIT (BEAKER) (test code = 22.5 % 34.1-44.9 L 411) MEAN CORPUSCULAR VOLUME (BEAKER) 93 fL 79-95 (test code = 753) MEAN CORPUSCULAR HEMOGLOBIN 28.1 pg 25.6-32.2 (BEAKER) (test code = 751) MEAN CORPUSCULAR HEMOGLOBIN CONC 30.2 GM/DL 32.2-35.5 L (BEAKER) (test code = 752) RED CELL DISTRIBUTION WIDTH 15.4 % 11.7-14.4 H (BEAKER) (test code = 412) PLATELET COUNT (BEAKER) (test 111 K/CU MM 150-450 L code = 756) MEAN PLATELET VOLUME (BEAKER) 12.7 fL 9.4-12.3 H (test code = 754) NUCLEATED RED BLOOD CELLS 0 /100 WBC 0-0 (BEAKER) (test code = 413) NEUTROPHILS RELATIVE PERCENT 70 % (BEAKER) (test code = 429) LYMPHOCYTES RELATIVE PERCENT 17 % (BEAKER) (test code = 430) MONOCYTES RELATIVE PERCENT 11 % (BEAKER) (test code = 431) EOSINOPHILS RELATIVE PERCENT 2 % (BEAKER) (test code = 432) BASOPHILS RELATIVE PERCENT 0 % (BEAKER) (test code = 437) NEUTROPHILS ABSOLUTE COUNT 4.92 K/ L 1.56-6.13 (BEAKER) (test code = 670) LYMPHOCYTES ABSOLUTE COUNT 1.18 K/ L 1.18-3.74 (BEAKER) (test code = 414) MONOCYTES ABSOLUTE COUNT (BEAKER) 0.77 K/ L 0.24-0.36 H (test code = 415) EOSINOPHILS ABSOLUTE COUNT 0.13 K/ L 0.04-0.36 (BEAKER) (test code = 416) BASOPHILS ABSOLUTE COUNT (BEAKER) 0.03 K/ L 0.01-0.08 (test code = 417) IMMATURE GRANULOCYTES-RELATIVE 0.70 % 0.00-1.00 PERCENT (BEAKER) (test code = 2801) [id number] 23:26:39 Test Item Value Reference Range Interpretation Comments PARTIAL THROMBOPLASTIN TIME 51.2 seconds 22.5-36.0 H (BEAKER) (test code = 760) [id number] 18:35:06 Test Item Value Reference Range Interpretation Comments PARTIAL THROMBOPLASTIN TIME 44.2 seconds 22.5-36.0 H (BEAKER) (test code = 760) HEPARIN [id number] 12:11:40 Test Item Value Reference Range Interpretation Comments HEPARIN ANTIBODY (BEAKER) (test code Negative Negative = 646) HEPARIN ANTIBODY OD (BEAKER) (test 0.379 <0.400 code = 8361) 4T TOTAL SCORE (BEAKER) (test code = 5 2602) Probability of HIT based on scoring system: 6-8 = High probability; 4-5 = intermediate probability; 0-3 = low probabilityBASIC METABOLIC [id number] 06:16:25 Test Item Value Reference Range Interpretation Comments SODIUM (BEAKER) 134 meq/L 136-145 L (test code = 381) POTASSIUM 5.0 meq/L 3.5-5.1 (BEAKER) (test code = 379) CHLORIDE (BEAKER) 105 meq/L 98-107 (test code = 382) CO2 (BEAKER) 22 meq/L 22-29 (test code = 355) BLOOD UREA 56 mg/dL 7-21 H NITROGEN (BEAKER) (test code = 354) CREATININE 1.84 mg/dL 0.57-1.25 H (BEAKER) (test code = 358) GLUCOSE RANDOM 115 mg/dL 70-105 H (BEAKER) (test code = 652) CALCIUM (BEAKER) 8.9 mg/dL 8.4-10.2 (test code = 697) EGFR (BEAKER) 29 Interpretatio n of eGFR (test code = mL/min/1.73 values Stage De scription 1092) sq m Result G1 Mckayla l or high >=90 G2 Mildly decreased 60-89 G3a Mildl y to moderately 45-5 9 G3b Moderately to s everely 30-44 G4 Severl y decreased 15-29 G5 Kidney failure <15Reported eGF R is based on the CKD-EPI 2020 equation that d oes not use a race coefficientEsti mated GFR is not as accur ate as Creatinine Sera chao in predicting glom erular filtration rate . Estimated GFR is not appl icable for dialysis patien ts Rouge [employer]er ID - [id number] 06:08:12 Test Item Value Reference Range Interpretation Comments PARTIAL THROMBOPLASTIN TIME 64.2 seconds 22.5-36.0 H (BEAKER) (test code = 760) CBC W/PLT COUNT & AUTO [id number] 06:04:02 Test Item Value Reference Range Interpretation Comments WHITE BLOOD CELL COUNT (BEAKER) 7.0 K/ L 3.5-10.5 (test code = 775) RED BLOOD CELL COUNT (BEAKER) 2.89 M/ L 3.93-5.22 L (test code = 761) HEMOGLOBIN (BEAKER) (test code = 8.1 GM/DL 11.2-15.7 L 410) HEMATOCRIT (BEAKER) (test code = 26.5 % 34.1-44.9 L 411) MEAN CORPUSCULAR VOLUME (BEAKER) 92 fL 79-95 (test code = 753) MEAN CORPUSCULAR HEMOGLOBIN 28.0 pg 25.6-32.2 (BEAKER) (test code = 751) MEAN CORPUSCULAR HEMOGLOBIN CONC 30.6 GM/DL 32.2-35.5 L (BEAKER) (test code = 752) RED CELL DISTRIBUTION WIDTH 15.8 % 11.7-14.4 H (BEAKER) (test code = 412) PLATELET COUNT (BEAKER) (test 106 K/CU MM 150-450 L code = 756) MEAN PLATELET VOLUME (BEAKER) 13.1 fL 9.4-12.3 H (test code = 754) NUCLEATED RED BLOOD CELLS 0 /100 WBC 0-0 (BEAKER) (test code = 413) NEUTROPHILS RELATIVE PERCENT 72 % (BEAKER) (test code = 429) LYMPHOCYTES RELATIVE PERCENT 16 % (BEAKER) (test code = 430) MONOCYTES RELATIVE PERCENT 10 % (BEAKER) (test code = 431) EOSINOPHILS RELATIVE PERCENT 2 % (BEAKER) (test code = 432) BASOPHILS RELATIVE PERCENT 0 % (BEAKER) (test code = 437) NEUTROPHILS ABSOLUTE COUNT 5.02 K/ L 1.56-6.13 (BEAKER) (test code = 670) LYMPHOCYTES ABSOLUTE COUNT 1.12 K/ L 1.18-3.74 L (BEAKER) (test code = 414) MONOCYTES ABSOLUTE COUNT (BEAKER) 0.68 K/ L 0.24-0.36 H (test code = 415) EOSINOPHILS ABSOLUTE COUNT 0.11 K/ L 0.04-0.36 (BEAKER) (test code = 416) BASOPHILS ABSOLUTE COUNT (BEAKER) 0.03 K/ L 0.01-0.08 (test code = 417) IMMATURE GRANULOCYTES-RELATIVE 0.60 % 0.00-1.00 PERCENT (BEAKER) (test code = 2801) Venous doppler legs [id number] 18:03:15Ejection FractionSLEH ECHO HEARTLAB [facility] 2022-06-14 18:03:15Ejection FractionSLEH ECHO HEARTLAB MKCKESSON [facility] [id number] 18:03:15Ejection FractionSLEH ECHO HEARTLAB MKCKESSON [facility] [id number] 18:03:15Ejection FractionSLEH ECHO HEARTLAB MKCK[facility]ON [facility] bilateral 2022-06-14 18:03:15Ejection FractionSLEH ECHO HEARTLAB MKCKESSON [facility] [id number] 18:03:15Ejection FractionSLEH ECHO HEARTLAB MKCKESSON [facility] [id number] 18:03:15Ejection FractionSLEH ECHO HEARTLAB MKCKESSON [facility] bilateral 2022-06-14 18:03:15Ejection FractionSLEH ECHO HEARTLAB MKCKESSON [facility] [id number] 18:03:15Ejection FractionSLEH ECHO HEARTLAB MKCKESSON [facility] [id number] 18:03:15Ejection FractionSLEH ECHO HEARTLAB MKCKESSON [facility] bilateral 2022-06-14 18:03:15Ejection FractionSLEH ECHO HEARTLAB MKCKESSON [facility] [id number] 18:03:15Ejection FractionSLEH ECHO HEARTLAB MKCKESSON [facility] [id number] 18:03:15Ejection FractionSLEH ECHO HEARTLAB MKCKESSON [facility]APTT2023-[facility]-22 16:20:28 Test Item Value Reference Range Interpretation Comments PARTIAL THROMBOPLASTIN TIME 74.7 seconds 22.5-36.0 H (BEAKER) (test code = 760) (CELLAVISION MANUAL DIFF)2022-06-14 06:55:05 Test Item Value Reference Range Interpretation Comments NEUTROPHILS - REL 78 % (CELLAVISION)(BEAKER) (test code = 2816) LYMPHOCYTES - REL 15 % (CELLAVISION)(BEAKER) (test code = 2817) MONOCYTES - REL 4 % (CELLAVISION)(BEAKER) (test code = 2818) EOSINOPHILS - REL 2 % (CELLAVISION)(BEAKER) (test code = 2819) BASOPHILS - REL 1 % (CELLAVISION)(BEAKER) (test code = 2820) NEUTROPHILS - ABS 6.32 K/ul 1.56-6.13 H (CELLAVISION)(BEAKER) (test code = 2830) LYMPHOCYTES - ABS 1.22 K/ul 1.18-3.74 (CELLAVISION)(BEAKER) (test code = 2831) MONOCYTES - ABS 0.32 K/uL 0.24-0.36 (CELLAVISION)(BEAKER) (test code = 2832) EOSINOPHILS - ABS 0.16 K/uL 0.04-0.36 (CELLAVISION)(BEAKER) (test code = 2834) BASOPHILS - ABS 0.08 K/uL 0.01-0.08 (CELLAVISION)(BEAKER) (test code = 2835) TOTAL COUNTED (BEAKER) (test code 100 = 1351) MANUAL NRBC PER 100 CELLS (BEAKER) 2 /100 WBC 0-0 H (test code = 1353) WBC MORPHOLOGY (BEAKER) (test code Normal = 487) PLT MORPHOLOGY (BEAKER) (test code Normal = 486) ANISOCYTOSIS (BEAKER) (test code = 1+ few 961) MACROCYTES (BEAKER) (test code = 1+ few 964) ARTIFACT (CELLAVISION)(BEAKER) Present (test code = 3432) PLATELET CONCENTRATION Decreased (CELLAVISION)(BEAKER) (test code = 3438) Rouge [employer]er ID - Zandra Doe comments: Slide comments:CBC W/PLT COUNT & AUTO [id number] 06:55:04 Test Item Value Reference Range Interpretation Comments WHITE BLOOD CELL COUNT (BEAKER) 8.1 K/ L 3.5-10.5 (test code = 775) RED BLOOD CELL COUNT (BEAKER) 2.55 M/ L 3.93-5.22 L (test code = 761) HEMOGLOBIN (BEAKER) (test code = 7.2 GM/DL 11.2-15.7 L 410) HEMATOCRIT (BEAKER) (test code = 23.0 % 34.1-44.9 L 411) MEAN CORPUSCULAR VOLUME (BEAKER) 90 fL 79-95 (test code = 753) MEAN CORPUSCULAR HEMOGLOBIN 28.2 pg 25.6-32.2 (BEAKER) (test code = 751) MEAN CORPUSCULAR HEMOGLOBIN CONC 31.3 GM/DL 32.2-35.5 L (BEAKER) (test code = 752) RED CELL DISTRIBUTION WIDTH 15.8 % 11.7-14.4 H (BEAKER) (test code = 412) PLATELET COUNT (BEAKER) (test code 83 K/CU MM 150-450 L = 756) MEAN PLATELET VOLUME (BEAKER) 12.9 fL 9.4-12.3 H (test code = 754) NUCLEATED RED BLOOD CELLS (BEAKER) 0 /100 WBC 0-0 (test code = 413) COMPREHENSIVE METABOLIC [id number] 02:58:05 Test Item Value Reference Range Interpretation Comments TOTAL PROTEIN 5.8 gm/dL 6.0-8.3 L (BEAKER) (test code = 770) ALBUMIN (BEAKER) 2.5 g/dL 3.5-5.0 L (test code = 1145) ALKALINE 74 U/L 40-150 PHOSPHATASE (BEAKER) (test code = 346) BILIRUBIN TOTAL 0.4 mg/dL 0.2-1.2 (BEAKER) (test code = 377) SODIUM (BEAKER) 135 meq/L 136-145 L (test code = 381) POTASSIUM (BEAKER) 5.0 meq/L 3.5-5.1 (test code = 379) CHLORIDE (BEAKER) 107 meq/L 98-107 (test code = 382) CO2 (BEAKER) (test 23 meq/L 22-29 code = 355) BLOOD UREA 57 mg/dL 7-21 H NITROGEN (BEAKER) (test code = 354) CREATININE 2.05 mg/dL 0.57-1.25 H (BEAKER) (test code = 358) GLUCOSE RANDOM 100 mg/dL 70-105 (BEAKER) (test code = 652) CALCIUM (BEAKER) 8.8 mg/dL 8.4-10.2 (test code = 697) AST (SGOT) 209 U/L 5-34 H (BEAKER) (test code = 353) ALT (SGPT) 57 U/L 6-55 H (BEAKER) (test code = 347) EGFR (BEAKER) 25 Interpretatio n of eGFR (test code = 1092) mL/min/1.[address] age Description sq m Result G1 Mckayla l or high >=90 G2 Mildly decreased 60-89 G3a Mildl y to moderately 45-5 9 G3b Moderately to s everely 30-44 G4 Severl y decreased 15-29 G5 Kidney failure <15Reported eGF R is based on the CKD-EPI 2020 equation that d oes not use a race coefficientEsti mated GFR is not as accur ate as Creatinine Sera guidry in predicting glom erular filtration rate . Estimated GFR is not appl icable for dialysis patien ts [employer] ID - ADMINCREATINE KINASE (CK)2022-06-14 02:57:59 Test Item Value Reference Range Interpretation Comments CREATINE KINASE TOTAL (BEAKER) (test 8600 U/L 29-200 H code = 380) Rouge [employer]er ID - ADMINOperator ID - ADMINB-TYPE NATRIURETIC FACTOR (BNP)2022-06-14 02:39:50 Test Item Value Reference Range Interpretation Comments B-TYPE NATRIURETIC PEPTIDE (BEAKER) 193 pg/mL 0-100 H (test code = 700) Rouge Mixer ID - [id number] 02:27:47 Test Item Value Reference Range Interpretation Comments PARTIAL THROMBOPLASTIN TIME 59.6 seconds 22.5-36.0 H (BEAKER) (test code = 760) [id number] 22:01:09 Test Item Value Reference Range Interpretation Comments PARTIAL THROMBOPLASTIN TIME 56.4 seconds 22.5-36.0 H (BEAKER) (test code = 760) [id number] 15:32:05 Test Item Value Reference Range Interpretation Comments PARTIAL THROMBOPLASTIN TIME 45.0 seconds 22.5-36.0 H (BEAKER) (test code = 760) RAD, CHEST, 1 VIEW, NON [id number] 10:19:00Reason for exam:->Respiratory distressShould this be performed at the bedside?->Yes [facility] : 1950 Sex: FFINAL REPORT CLINICAL HISTORY: Respiratory distress TECHNIQUE: 1 view of the chest. COMPARISON: 06/08/2022 IMPRESSION: Mild prominence of the pulmonary vascularity is again seen. There is patchy right lower lung airspace opacity with blunting of the right costophrenic angle. The cardiomediastinal silhouette is magnified by technique with a pacemaker. Signed: Sallie Cross MDReport VerifiedDate/Time: 06/13/2022 10:19:20 Reading Location: [address] Reading Room Electronicallysigned by: SALLIE CROSS M.D. on 06/13/2022 10:19 AMCREATINE KINASE (CK)2022-06-13 06:55:43 Test Item Value Reference Range Interpretation Comments CREATINE KINASE TOTAL (BEAKER) 31231 U/L 29-200 H (test code = 380) Rouge Mixer ID - MARCOOperator ID - MARCOCOMPREHENSIVE METABOLIC [id number] 06:55:42 Test Item Value Reference Range Interpretation Comments TOTAL PROTEIN 5.7 gm/dL 6.0-8.3 L (BEAKER) (test code = 770) ALBUMIN (BEAKER) 2.5 g/dL 3.5-5.0 L (test code = 1145) ALKALINE 58 U/L 40-150 PHOSPHATASE (BEAKER) (test code = 346) BILIRUBIN TOTAL 0.3 mg/dL 0.2-1.2 (BEAKER) (test code = 377) SODIUM (BEAKER) 136 meq/L 136-145 (test code = 381) POTASSIUM (BEAKER) 5.0 meq/L 3.5-5.1 (test code = 379) CHLORIDE (BEAKER) 108 meq/L 98-107 H (test code = 382) CO2 (BEAKER) (test 23 meq/L 22-29 code = 355) BLOOD UREA 53 mg/dL 7-21 H NITROGEN (BEAKER) (test code = 354) CREATININE 1.87 mg/dL 0.57-1.25 H (BEAKER) (test code = 358) GLUCOSE RANDOM 94 mg/dL 70-105 (BEAKER) (test code = 652) CALCIUM (BEAKER) 8.7 mg/dL 8.4-10.2 (test code = 697) AST (SGOT) 233 U/L 5-34 H (BEAKER) (test code = 353) ALT (SGPT) 53 U/L 6-55 (BEAKER) (test code = 347) EGFR (BEAKER) 28 Interpretatio n of eGFR (test code = 1092) mL/min/1.[address] age Description sq m Result G1 Mckayla l or high >=90 G2 Mildly decreased 60-89 G3a Mildl y to moderately 45-5 9 G3b Moderately to s everely 30-44 G4 Severl y decreased 15-29 G5 Kidney failure <15Reported eGF R is based on the CKD-EPI 2021 equation that d oes not use a race coefficientEsti mated GFR is not as accur ate as Creatinine Sera chao in predicting glom erular filtration rate . Estimated GFR is not appl icable for dialysis patien ts Rouge Mixer ID - MARCOCBC W/PLT COUNT & AUTO [id number] 06:33:19 Test Item Value Reference Range Interpretation Comments WHITE BLOOD CELL COUNT (BEAKER) 7.8 K/ L 3.5-10.5 (test code = 775) RED BLOOD CELL COUNT (BEAKER) 2.36 M/ L 3.93-5.22 L (test code = 761) HEMOGLOBIN (BEAKER) (test code = 6.6 GM/DL 11.2-15.7 L 410) HEMATOCRIT (BEAKER) (test code = 21.8 % 34.1-44.9 L 411) MEAN CORPUSCULAR VOLUME (BEAKER) 92 fL 79-95 (test code = 753) MEAN CORPUSCULAR HEMOGLOBIN 28.0 pg 25.6-32.2 (BEAKER) (test code = 751) MEAN CORPUSCULAR HEMOGLOBIN CONC 30.3 GM/DL 32.2-35.5 L (BEAKER) (test code = 752) RED CELL DISTRIBUTION WIDTH 15.7 % 11.7-14.4 H (BEAKER) (test code = 412) PLATELET COUNT (BEAKER) (test code 76 K/CU MM 150-450 L = 756) MEAN PLATELET VOLUME (BEAKER) 12.9 fL 9.4-12.3 H (test code = 754) NUCLEATED RED BLOOD CELLS (BEAKER) 0 /100 WBC 0-0 (test code = 413) NEUTROPHILS RELATIVE PERCENT 74 % (BEAKER) (test code = 429) LYMPHOCYTES RELATIVE PERCENT 13 % (BEAKER) (test code = 430) MONOCYTES RELATIVE PERCENT 11 % (BEAKER) (test code = 431) EOSINOPHILS RELATIVE PERCENT 1 % (BEAKER) (test code = 432) BASOPHILS RELATIVE PERCENT 1 % (BEAKER) (test code = 437) NEUTROPHILS ABSOLUTE COUNT 5.70 K/ L 1.56-6.13 (BEAKER) (test code = 670) LYMPHOCYTES ABSOLUTE COUNT 0.98 K/ L 1.18-3.74 L (BEAKER) (test code = 414) MONOCYTES ABSOLUTE COUNT (BEAKER) 0.86 K/ L 0.24-0.36 H (test code = 415) EOSINOPHILS ABSOLUTE COUNT 0.08 K/ L 0.04-0.36 (BEAKER) (test code = 416) BASOPHILS ABSOLUTE COUNT (BEAKER) 0.04 K/ L 0.01-0.08 (test code = 417) IMMATURE GRANULOCYTES-RELATIVE 1.20 % 0.00-1.00 H PERCENT (BEAKER) (test code = 2801) [id number] 06:17:45 Test Item Value Reference Range Interpretation Comments PARTIAL THROMBOPLASTIN TIME 73.2 seconds 22.5-36.0 H (BEAKER) (test code = 760) [id number] 18:53:45 Test Item Value Reference Range Interpretation Comments POTASSIUM (BEAKER) (test code = 4.7 meq/L 3.5-5.1 379) Rouge Mixer ID - BSCREATINE KINASE (CK)2022-06-12 17:03:45 Test Item Value Reference Range Interpretation Comments CREATINE KINASE TOTAL (BEAKER) 73113 U/L 29-200 H (test code = 380) Rouge Mixer ID - BSOperator ID - BSHEMOGLOBIN AND [id number] 16:41:59 Test Item Value Reference Range Interpretation Comments HEMOGLOBIN (BEAKER) (test code = 7.1 GM/DL 11.2-15.7 L 410) HEMATOCRIT (BEAKER) (test code = 23.4 % 34.1-44.9 L 411) Rouge Mixer ID - 6000POCT-GLUCOSE [id number] 16:21:48 Test Item Value Reference Range Interpretation Comments POC-GLUCOSE METER 124 mg/dL 70-110 H : TESTED A T [facility] 6720 (BEAKER) (test code = [place], 1538) [id number]: Rouge Mixer/Techni tawana ID = [id number] for Hawa Jones CREATINE KINASE (CK)2022-06-12 14:31:33 Test Item Value Reference Range Interpretation Comments CREATINE KINASE TOTAL (BEAKER) 21684 U/L 29-200 H (test code = 380) Rouge Mixer ID - NORBERTOIDOperator ID - JADONBASIC METABOLIC [id number] 13:06:41 Test Item Value Reference Range Interpretation Comments SODIUM (BEAKER) 136 meq/L 136-145 (test code = 381) POTASSIUM 5.1 meq/L 3.5-5.1 (BEAKER) (test code = 379) CHLORIDE (BEAKER) 107 meq/L 98-107 (test code = 382) CO2 (BEAKER) 20 meq/L 22-29 L (test code = 355) BLOOD UREA 51 mg/dL 7-21 H NITROGEN (BEAKER) (test code = 354) CREATININE 2.05 mg/dL 0.57-1.25 H (BEAKER) (test code = 358) GLUCOSE RANDOM 108 mg/dL 70-105 H (BEAKER) (test code = 652) CALCIUM (BEAKER) 8.8 mg/dL 8.4-10.2 (test code = 697) EGFR (BEAKER) 25 Interpretatio n of eGFR (test code = mL/min/1.73 values Stage De scription 1092) sq m Result G1 Mckayla l or high >=90 G2 Mildly decreased 60-89 G3a Mildl y to moderately 45-5 9 G3b Moderately to s everely 30-44 G4 Severl y decreased 15-29 G5 Kidney failure <15Reported eGF R is based on the CKD-EPI 2020 equation that d oes not use a race coefficientEsti mated GFR is not as accur ate as Creatinine Sera chao in predicting glom erular filtration rate . Estimated GFR is not appl icable for dialysis patien ts Rouge Mixer ID - [id number] 12:48:53 Test Item Value Reference Range Interpretation Comments PARTIAL THROMBOPLASTIN TIME 78.3 seconds 22.5-36.0 H (BEAKER) (test code = 760) HEMOGLOBIN AND [id number] 12:38:08 Test Item Value Reference Range Interpretation Comments HEMOGLOBIN (BEAKER) (test code = 7.2 GM/DL 11.2-15.7 L 410) HEMATOCRIT (BEAKER) (test code = 23.7 % 34.1-44.9 L 411) Rouge Mixer ID - 6000POCT-GLUCOSE [id number] 11:11:53 Test Item Value Reference Range Interpretation Comments POC-GLUCOSE METER 144 mg/dL 70-110 H : TESTED A T [facility] 6720 (BEAKER) (test code = [facility], 1538) [address]: Rouge Mixer/Techni tawana ID = [id number] for Hawa Jones CREATINE KINASE (CK)2022-06-12 09:34:40 Test Item Value Reference Range Interpretation Comments CREATINE KINASE TOTAL (BEAKER) 27436 U/L 29-200 H (test code = 380) Rouge Mixer ID - AAHAMIDHEMOGLOBIN AND [id number] 08:05:13 Test Item Value Reference Range Interpretation Comments HEMOGLOBIN (BEAKER) (test code = 8.0 GM/DL 11.2-15.7 L 410) HEMATOCRIT (BEAKER) (test code = 26.4 % 34.1-44.9 L 411) Rouge Mixer ID - 6000POCT-GLUCOSE [id number] 07:38:09 Test Item Value Reference Range Interpretation Comments POC-GLUCOSE METER 105 mg/dL 70-110 : TESTED A T [facility] 6720 (BEAKER) (test code = [facility], 1538) [address]: Rouge Mixer/Techni tawana ID = [id number] for Hawa Jones CREATINE KINASE (CK)2022-06-12 05:15:10 Test Item Value Reference Range Interpretation Comments CREATINE KINASE TOTAL (BEAKER) 72606 U/L 29-200 H (test code = 380) Rouge Mixer ID - MARCOOperator ID - [id number] 04:31:27 Test Item Value Reference Range Interpretation Comments PARTIAL THROMBOPLASTIN TIME 78.4 seconds 22.5-36.0 H (BEAKER) (test code = 760) COMPREHENSIVE METABOLIC [id number] 04:19:38 Test Item Value Reference Range Interpretation Comments TOTAL PROTEIN 5.9 gm/dL 6.0-8.3 L (BEAKER) (test code = 770) ALBUMIN (BEAKER) 2.6 g/dL 3.5-5.0 L (test code = 1145) ALKALINE 66 U/L 40-150 PHOSPHATASE (BEAKER) (test code = 346) BILIRUBIN TOTAL 0.5 mg/dL 0.2-1.2 (BEAKER) (test code = 377) SODIUM (BEAKER) 137 meq/L 136-145 (test code = 381) POTASSIUM (BEAKER) 5.0 meq/L 3.5-5.1 (test code = 379) CHLORIDE (BEAKER) 107 meq/L 98-107 (test code = 382) CO2 (BEAKER) (test 21 meq/L 22-29 L code = 355) BLOOD UREA 45 mg/dL 7-21 H NITROGEN (BEAKER) (test code = 354) CREATININE 2.00 mg/dL 0.57-1.25 H (BEAKER) (test code = 358) GLUCOSE RANDOM 99 mg/dL 70-105 (BEAKER) (test code = 652) CALCIUM (BEAKER) 8.7 mg/dL 8.4-10.2 (test code = 697) AST (SGOT) 248 U/L 5-34 H (BEAKER) (test code = 353) ALT (SGPT) 50 U/L 6-55 (BEAKER) (test code = 347) EGFR (BEAKER) 26 Interpretatio n of eGFR (test code = 1092) mL/min/1.[address] age Description sq m Result G1 Mckayla l or high >=90 G2 Mildly decreased 60-89 G3a Mildl y to moderately 45-5 9 G3b Moderately to s everely 30-44 G4 Severl y decreased 15-29 G5 Kidney failure <15Reported eGF R is based on the CKD-EPI 2021 equation that d oes not use a race coefficientEsti mated GFR is not as accur ate as Creatinine Sera chao in predicting glom erular filtration rate . Estimated GFR is not appl icable for dialysis patien ts Rouge Mixer ID - TERENCE [id number] 02:57:25 Test Item Value Reference Range Interpretation Comments MAGNESIUM (BEAKER) (test code = 2.0 mg/dL 1.6-2.6 627) Rouge Mixer ID - TERENCE [id number] 02:57:25 Test Item Value Reference Range Interpretation Comments PHOSPHORUS (BEAKER) (test code = 3.1 mg/dL 2.3-4.7 604) Rouge Mixer ID - TERENCE [id number] 02:39:11 Test Item Value Reference Range Interpretation Comments PARTIAL THROMBOPLASTIN TIME 115.7 seconds 22.5-36.0 H (BEAKER) (test code = 760) PROTHROMBIN TIME/[id number] 02:36:02 Test Item Value Reference Range Interpretation Comments PROTIME (BEAKER) (test code = 16.3 seconds 11.9-14.2 H 759) INR (BEAKER) (test code = 370) 1.34 <=5.90 RECOMMENDED COUMADIN/WARFARIN INR THERAPY RANGESSTANDARD DOSE: 2.0 - 3.0 Includes: PROPHYLAXIS for venous thrombosis, systemic embolization; TREATMENT for venous thrombosis and/or pulmonary embolus.HIGH RISK: Target INR is 2.5-3.5 for patients with mechanical heart valves.CBC W/PLT COUNT & AUTO [id number] 02:20:37 Test Item Value Reference Range Interpretation Comments WHITE BLOOD CELL COUNT (BEAKER) 10.1 K/ L 3.5-10.5 (test code = 775) RED BLOOD CELL COUNT (BEAKER) 2.73 M/ L 3.93-5.22 L (test code = 761) HEMOGLOBIN (BEAKER) (test code = 7.7 GM/DL 11.2-15.7 L 410) HEMATOCRIT (BEAKER) (test code = 25.7 % 34.1-44.9 L 411) MEAN CORPUSCULAR VOLUME (BEAKER) 94 fL 79-95 (test code = 753) MEAN CORPUSCULAR HEMOGLOBIN 28.2 pg 25.6-32.2 (BEAKER) (test code = 751) MEAN CORPUSCULAR HEMOGLOBIN CONC 30.0 GM/DL 32.2-35.5 L (BEAKER) (test code = 752) RED CELL DISTRIBUTION WIDTH 15.6 % 11.7-14.4 H (BEAKER) (test code = 412) PLATELET COUNT (BEAKER) (test code 67 K/CU MM 150-450 L = 756) MEAN PLATELET VOLUME (BEAKER) 13.0 fL 9.4-12.3 H (test code = 754) NUCLEATED RED BLOOD CELLS (BEAKER) 0 /100 WBC 0-0 (test code = 413) NEUTROPHILS RELATIVE PERCENT 79 % (BEAKER) (test code = 429) LYMPHOCYTES RELATIVE PERCENT 9 % (BEAKER) (test code = 430) MONOCYTES RELATIVE PERCENT 11 % (BEAKER) (test code = 431) EOSINOPHILS RELATIVE PERCENT 0 % (BEAKER) (test code = 432) BASOPHILS RELATIVE PERCENT 0 % (BEAKER) (test code = 437) NEUTROPHILS ABSOLUTE COUNT 7.99 K/ L 1.56-6.13 H (BEAKER) (test code = 670) LYMPHOCYTES ABSOLUTE COUNT 0.91 K/ L 1.18-3.74 L (BEAKER) (test code = 414) MONOCYTES ABSOLUTE COUNT (BEAKER) 1.08 K/ L 0.24-0.36 H (test code = 415) EOSINOPHILS ABSOLUTE COUNT 0.04 K/ L 0.04-0.36 (BEAKER) (test code = 416) BASOPHILS ABSOLUTE COUNT (BEAKER) 0.03 K/ L 0.01-0.08 (test code = 417) IMMATURE GRANULOCYTES-RELATIVE 0.80 % 0.00-1.00 PERCENT (BEAKER) (test code = 2801) CREATINE KINASE (CK)2022-06-12 01:11:00 Test Item Value Reference Range Interpretation Comments CREATINE KINASE TOTAL (BEAKER) 75785 U/L 29-200 H (test code = 380) [employer] ID - TERENCE LOperator ID - PICHANTAL LOperator ID - PIAYA LOperator ID - PIAYA LOperator ID - PIAYA [id number] 18:59:00 Test Item Value Reference Range Interpretation Comments PARTIAL THROMBOPLASTIN TIME 85.2 seconds 22.5-36.0 H (BEAKER) (test code = 760) [id number] 12:27:04 Test Item Value Reference Range Interpretation Comments PARTIAL THROMBOPLASTIN TIME 36.5 seconds 22.5-36.0 H (BEAKER) (test code = 760) POCT-GLUCOSE [id number] 12:19:50 Test Item Value Reference Range Interpretation Comments POC-GLUCOSE METER 119 mg/dL 70-110 H : TESTED A T [facility] 6720 (BEAKER) (test code = RADHA SCHULER [place], 1538) [id number]: [employer]er/Techni tawana ID = [id number] for Of futt, Alondramonalisaney CREATINE KINASE (CK)2022-06-11 10:14:16 Test Item Value Reference Range Interpretation Comments CREATINE KINASE TOTAL (BEAKER) 15521 U/L 29-200 H (test code = 380) [employer] ID - NOAHOOperator ID - NOAHOBASIC METABOLIC [id number] 06:47:41 Test Item Value Reference Range Interpretation Comments SODIUM (BEAKER) 136 meq/L 136-145 (test code = 381) POTASSIUM 4.9 meq/L 3.5-5.1 (BEAKER) (test code = 379) CHLORIDE (BEAKER) 109 meq/L 98-107 H (test code = 382) CO2 (BEAKER) 20 meq/L 22-29 L (test code = 355) BLOOD UREA 44 mg/dL 7-21 H NITROGEN (BEAKER) (test code = 354) CREATININE 1.89 mg/dL 0.57-1.25 H (BEAKER) (test code = 358) GLUCOSE RANDOM 114 mg/dL 70-105 H (BEAKER) (test code = 652) CALCIUM (BEAKER) 8.7 mg/dL 8.4-10.2 (test code = 697) EGFR (BEAKER) 28 Interpretatio n of eGFR (test code = mL/min/1.73 values Stage De scription 1092) sq m Result G1 Mckayla l or high >=90 G2 Mildly decreased 60-89 G3a Mildl y to moderately 45-5 9 G3b Moderately to s everely 30-44 G4 Severl y decreased 15-29 G5 Kidney failure <15Reported eGF R is based on the CKD-EPI 2020 equation that d oes not use a race coefficientEsti mated GFR is not as accur ate as Creatinine Sera guidry in predicting glom erular filtration rate . Estimated GFR is not appl icable for dialysis patien ts [employer] ID - [id number] 05:59:28 Test Item Value Reference Range Interpretation Comments PARTIAL THROMBOPLASTIN TIME 32.8 seconds 22.5-36.0 (BEAKER) (test code = 760) [id number] 05:59:07 Test Item Value Reference Range Interpretation Comments FIBRINOGEN LEVEL (BEAKER) (test 433 mg/dl 225-434 code = 658) PROTHROMBIN TIME/[id number] 05:58:47 Test Item Value Reference Range Interpretation Comments PROTIME (BEAKER) (test code = 16.5 seconds 11.9-14.2 H 759) INR (BEAKER) (test code = 370) 1.36 <=5.90 RECOMMENDED COUMADIN/WARFARIN INR THERAPY RANGESSTANDARD DOSE: 2.0 - 3.0 Includes: PROPHYLAXIS for venous thrombosis, systemic embolization; TREATMENT for venous thrombosis and/or pulmonary embolus.HIGH RISK: Target INR is 2.5-3.5 for patients with mechanical heart valves.CBC W/PLT COUNT & AUTO [id number] 05:51:30 Test Item Value Reference Range Interpretation Comments WHITE BLOOD CELL COUNT (BEAKER) 8.5 K/ L 3.5-10.5 (test code = 775) RED BLOOD CELL COUNT (BEAKER) 3.02 M/ L 3.93-5.22 L (test code = 761) HEMOGLOBIN (BEAKER) (test code = 8.6 GM/DL 11.2-15.7 L 410) HEMATOCRIT (BEAKER) (test code = 28.3 % 34.1-44.9 L 411) MEAN CORPUSCULAR VOLUME (BEAKER) 94 fL 79-95 (test code = 753) MEAN CORPUSCULAR HEMOGLOBIN 28.5 pg 25.6-32.2 (BEAKER) (test code = 751) MEAN CORPUSCULAR HEMOGLOBIN CONC 30.4 GM/DL 32.2-35.5 L (BEAKER) (test code = 752) RED CELL DISTRIBUTION WIDTH 15.7 % 11.7-14.4 H (BEAKER) (test code = 412) PLATELET COUNT (BEAKER) (test code 75 K/CU MM 150-450 L = 756) MEAN PLATELET VOLUME (BEAKER) 13.6 fL 9.4-12.3 H (test code = 754) NUCLEATED RED BLOOD CELLS (BEAKER) 0 /100 WBC 0-0 (test code = 413) NEUTROPHILS RELATIVE PERCENT 79 % (BEAKER) (test code = 429) LYMPHOCYTES RELATIVE PERCENT 8 % (BEAKER) (test code = 430) MONOCYTES RELATIVE PERCENT 11 % (BEAKER) (test code = 431) EOSINOPHILS RELATIVE PERCENT 0 % (BEAKER) (test code = 432) BASOPHILS RELATIVE PERCENT 0 % (BEAKER) (test code = 437) NEUTROPHILS ABSOLUTE COUNT 6.69 K/ L 1.56-6.13 H (BEAKER) (test code = 670) LYMPHOCYTES ABSOLUTE COUNT 0.69 K/ L 1.18-3.74 L (BEAKER) (test code = 414) MONOCYTES ABSOLUTE COUNT (BEAKER) 0.94 K/ L 0.24-0.36 H (test code = 415) EOSINOPHILS ABSOLUTE COUNT 0.01 K/ L 0.04-0.36 L (BEAKER) (test code = 416) BASOPHILS ABSOLUTE COUNT (BEAKER) 0.03 K/ L 0.01-0.08 (test code = 417) IMMATURE GRANULOCYTES-RELATIVE 1.30 % 0.00-1.00 H PERCENT (BEAKER) (test code = 2801) Urinalysis w/[id number] 04:19:37 Test Item Value Reference Range Interpretation Comments Color, UA (test code Yellow = 5778-6) Clarity, UA (test Hazy code = 5767-9) Specific Cleves, UA 1.017 1.001-1.035 (test code = 5811-5) pH, UA (test code = 6.0 5.0-8.0 5803-2) Protein, UA (test 100 mg/dL Negative A code = 26444-9) Glucose, UA (test Negative Negative code = 365) Ketones, UA (test Negative Negative code = 2514-8) Bilirubin, UA (test Negative Negative code = 14685-9) Blood, UA (test code Large Negative A = 38249-5) Nitrite, UA (test Negative Negative code = 5802-4) Leukocytes, UA (test Negative Negative code = 5799-2) Urobilinogen, UA 0.2 0.2-1.0 (test code = 72486-7) RBC, UA (test code = 4 See_Comment [Autom ated 54896-9) message] The system which generated this result transmitted reference range : /HPF. The reference range was not used to interpret this result as normal/abnormal . WBC, UA (test code = 7 See_Comment [Autom ated 5821-4) message] The system which generated this result transmitted reference range : /HPF. The reference range was not used to interpret this result as normal/abnormal . Bacteria, UA (test Rare code = 51906-4) Squam Epithel, UA 3 See_Comment [Automate d (test code = 50806-4) messag e] The system which generated this result transmitted reference range : /HPF. The reference range was not used to interpret this result as normal/abnormal . Amorphous Crystals Few (test code = 20513-7) Yeast (test code = [place]asional [place] 74137-3) seen Specimen Source (test Urine, Voided code = 2795) KRYSTINA (test code = KRYSTINA) Rouge Mixer ID - [auto]Rouge Mixer ID - tech Lab Interpretation Abnormal (test code = 53559-0) [facility][id number] 04:19:37 Test Item Value Reference Range Interpretation Comments Color, UA (test code Yellow = 5778-6) Clarity, UA (test Hazy code = 5767-9) Specific Cleves, UA 1.017 1.001-1.035 (test code = 5811-5) pH, UA (test code = 6.0 5.0-8.0 5803-2) Protein, UA (test 100 mg/dL Negative A code = 80158-7) Glucose, UA (test Negative Negative code = 365) Ketones, UA (test Negative Negative code = 2514-8) Bilirubin, UA (test Negative Negative code = 62066-1) Blood, UA (test code Large Negative A = 43223-0) Nitrite, UA (test Negative Negative code = 5802-4) Leukocytes, UA (test Negative Negative code = 5799-2) Urobilinogen, UA 0.2 0.2-1.0 (test code = 17034-1) RBC, UA (test code = 4 See_Comment [Autom ated 06926-4) message] The system which generated this result transmitted reference range : /HPF. The reference range was not used to interpret this result as normal/abnormal . WBC, UA (test code = 7 See_Comment [Autom ated 5821-4) message] The system which generated this result transmitted reference range : /HPF. The reference range was not used to interpret this result as normal/abnormal . Bacteria, UA (test Rare code = 90032-3) Squam Epithel, UA 3 See_Comment [Automate d (test code = 23019-6) messag e] The system which generated this result transmitted reference range : /HPF. The reference range was not used to interpret this result as normal/abnormal . Amorphous Crystals Few (test code = 86047-0) Yeast (test code = [place] 87631-1) seen Specimen Source (test Urine, Voided code = 2795) KRYSTINA (test code = KRYSTINA) Rouge [employer]er ID - [auto]Rouge Mixer ID - tech Lab Interpretation Abnormal (test code = 86501-2) [facility] [id number] 04:19:37 Test Item Value Reference Range Interpretation Comments COLOR (BEAKER) (test Yellow code = 470) CLARITY (BEAKER) (test Hazy code = 469) SPECIFIC GRAVITY UA 1.017 1.001-1.035 (BEAKER) (test code = 468) PH UA (BEAKER) (test 6.0 5.0-8.0 code = 467) PROTEIN UA (BEAKER) 100 mg/dL Negative A (test code = 464) GLUCOSE UA (BEAKER) Negative Negative (test code = 365) KETONES UA (BEAKER) Negative Negative (test code = 371) BILIRUBIN UA (BEAKER) Negative Negative (test code = 462) BLOOD UA (BEAKER) Large Negative A (test code = 461) NITRITE UA (BEAKER) Negative Negative (test code = 465) LEUKOCYTE ESTERASE UA Negative Negative (BEAKER) (test code = 466) UROBILINOGEN UA 0.2 0.2-1.0 (BEAKER) (test code = 463) RBC UA (BEAKER) (test 4 /HPF code = 519) WBC UA (BEAKER) (test 7 /HPF code = 520) BACTERIA (BEAKER) Rare (test code = 517) SQUAMOUS EPITHELIAL 3 /HPF (BEAKER) (test code = 516) AMORPHOUS CRYSTALS Few (BEAKER) (test code = 1584) YEAST (BEAKER) (test Occasional Budding yeast seen code = 1585) SOURCE(BEAKER) (test Urine, Voided code = 2795) Rouge [employer] ID - [auto]Rouge Mixer ID - [id number] 00:01:10 Test Item Value Reference Range Interpretation Comments PARTIAL THROMBOPLASTIN TIME 32.3 seconds 22.5-36.0 (BEAKER) (test code = 760) [id number] 00:00:49 Test Item Value Reference Range Interpretation Comments FIBRINOGEN LEVEL (BEAKER) (test 418 mg/dl 225-434 code = 658) PROTHROMBIN TIME/[id number] 00:00:31 Test Item Value Reference Range Interpretation Comments PROTIME (BEAKER) (test code = 16.5 seconds 11.9-14.2 H 759) INR (BEAKER) (test code = 370) 1.41 <=5.90 RECOMMENDED COUMADIN/WARFARIN INR THERAPY RANGESSTANDARD DOSE: 2.0 - 3.0 Includes: PROPHYLAXIS for venous thrombosis, systemic embolization; TREATMENT for venous thrombosis and/or pulmonary embolus.HIGH RISK: Target INR is 2.5-3.5 for patients with mechanical heart valves.CBC W/PLT COUNT & AUTO [id number] 23:53:13 Test Item Value Reference Range Interpretation Comments WHITE BLOOD CELL COUNT (BEAKER) 8.7 K/ L 3.5-10.5 (test code = 775) RED BLOOD CELL COUNT (BEAKER) 3.17 M/ L 3.93-5.22 L (test code = 761) HEMOGLOBIN (BEAKER) (test code = 8.8 GM/DL 11.2-15.7 L 410) HEMATOCRIT (BEAKER) (test code = 29.9 % 34.1-44.9 L 411) MEAN CORPUSCULAR VOLUME (BEAKER) 94 fL 79-95 (test code = 753) MEAN CORPUSCULAR HEMOGLOBIN 27.8 pg 25.6-32.2 (BEAKER) (test code = 751) MEAN CORPUSCULAR HEMOGLOBIN CONC 29.4 GM/DL 32.2-35.5 L (BEAKER) (test code = 752) RED CELL DISTRIBUTION WIDTH 15.4 % 11.7-14.4 H (BEAKER) (test code = 412) PLATELET COUNT (BEAKER) (test code 80 K/CU MM 150-450 L = 756) MEAN PLATELET VOLUME (BEAKER) 13.0 fL 9.4-12.3 H (test code = 754) NUCLEATED RED BLOOD CELLS (BEAKER) 0 /100 WBC 0-0 (test code = 413) NEUTROPHILS RELATIVE PERCENT 81 % (BEAKER) (test code = 429) LYMPHOCYTES RELATIVE PERCENT 7 % (BEAKER) (test code = 430) MONOCYTES RELATIVE PERCENT 11 % (BEAKER) (test code = 431) EOSINOPHILS RELATIVE PERCENT 0 % (BEAKER) (test code = 432) BASOPHILS RELATIVE PERCENT 0 % (BEAKER) (test code = 437) NEUTROPHILS ABSOLUTE COUNT 7.03 K/ L 1.56-6.13 H (BEAKER) (test code = 670) LYMPHOCYTES ABSOLUTE COUNT 0.64 K/ L 1.18-3.74 L (BEAKER) (test code = 414) MONOCYTES ABSOLUTE COUNT (BEAKER) 0.94 K/ L 0.24-0.36 H (test code = 415) EOSINOPHILS ABSOLUTE COUNT 0.02 K/ L 0.04-0.36 L (BEAKER) (test code = 416) BASOPHILS ABSOLUTE COUNT (BEAKER) 0.02 K/ L 0.01-0.08 (test code = 417) IMMATURE GRANULOCYTES-RELATIVE 0.80 % 0.00-1.00 PERCENT (BEAKER) (test code = 2801) HEPATIC FUNCTION [id number] 18:32:06 Test Item Value Reference Range Interpretation Comments TOTAL PROTEIN (BEAKER) (test code = 6.2 gm/dL 6.0-8.3 770) ALBUMIN (BEAKER) (test code = 1145) 2.9 g/dL 3.5-5.0 L BILIRUBIN TOTAL (BEAKER) (test code 0.7 mg/dL 0.2-1.2 = 377) BILIRUBIN DIRECT (BEAKER) (test 0.3 mg/dL 0.1-0.5 code = 706) ALKALINE PHOSPHATASE (BEAKER) (test 58 U/L 40-150 code = 346) AST (SGOT) (BEAKER) (test code = 241 U/L 5-34 H 353) ALT (SGPT) (BEAKER) (test code = 40 U/L 6-55 347) [employer]er ID - [id number] 17:59:08 Test Item Value Reference Range Interpretation Comments PARTIAL THROMBOPLASTIN TIME 30.5 seconds 22.5-36.0 (BEAKER) (test code = 760) [id number] 17:59:03 Test Item Value Reference Range Interpretation Comments FIBRINOGEN LEVEL (BEAKER) (test 401 mg/dl 225-434 code = 658) PROTHROMBIN [id number] 17:58:26 Test Item Value Reference Range Interpretation Comments PROTIME (BEAKER) (test code = 15.7 seconds 11.9-14.2 H 759) INR (BEAKER) (test code = 370) 1.28 <=5.90 RECOMMENDED COUMADIN/WARFARIN INR THERAPY RANGESSTANDARD DOSE: 2.0 - 3.0 Includes: PROPHYLAXIS for venous thrombosis, systemic embolization; TREATMENT for venous thrombosis and/or pulmonary embolus.HIGH RISK: Target INR is 2.5-3.5 for patients with mechanical heart valves.POCT-GLUCOSE [id number] 17:54:28 Test Item Value Reference Range Interpretation Comments POC-GLUCOSE METER 120 mg/dL 70-110 H : TESTED Saqib T [facility] 6720 (BEAKER) (test code = RAD[place], 1538) [address]: Rouge Mixer/Techni tawana ID = [id number] for Of Beatrice joaquin CBC W/PLT COUNT & AUTO [id number] 17:51:59 Test Item Value Reference Range Interpretation Comments WHITE BLOOD CELL COUNT (BEAKER) 8.3 K/ L 3.5-10.5 (test code = 775) RED BLOOD CELL COUNT (BEAKER) 3.26 M/ L 3.93-5.22 L (test code = 761) HEMOGLOBIN (BEAKER) (test code = 9.2 GM/DL 11.2-15.7 L 410) HEMATOCRIT (BEAKER) (test code = 30.7 % 34.1-44.9 L 411) MEAN CORPUSCULAR VOLUME (BEAKER) 94 fL 79-95 (test code = 753) MEAN CORPUSCULAR HEMOGLOBIN 28.2 pg 25.6-32.2 (BEAKER) (test code = 751) MEAN CORPUSCULAR HEMOGLOBIN CONC 30.0 GM/DL 32.2-35.5 L (BEAKER) (test code = 752) RED CELL DISTRIBUTION WIDTH 15.5 % 11.7-14.4 H (BEAKER) (test code = 412) PLATELET COUNT (BEAKER) (test code 85 K/CU MM 150-450 L = 756) MEAN PLATELET VOLUME (BEAKER) 12.7 fL 9.4-12.3 H (test code = 754) NUCLEATED RED BLOOD CELLS (BEAKER) 0 /100 WBC 0-0 (test code = 413) NEUTROPHILS RELATIVE PERCENT 80 % (BEAKER) (test code = 429) LYMPHOCYTES RELATIVE PERCENT 9 % (BEAKER) (test code = 430) MONOCYTES RELATIVE PERCENT 11 % (BEAKER) (test code = 431) EOSINOPHILS RELATIVE PERCENT 0 % (BEAKER) (test code = 432) BASOPHILS RELATIVE PERCENT 0 % (BEAKER) (test code = 437) NEUTROPHILS ABSOLUTE COUNT 6.58 K/ L 1.56-6.13 H (BEAKER) (test code = 670) LYMPHOCYTES ABSOLUTE COUNT 0.72 K/ L 1.18-3.74 L (BEAKER) (test code = 414) MONOCYTES ABSOLUTE COUNT (BEAKER) 0.91 K/ L 0.24-0.36 H (test code = 415) EOSINOPHILS ABSOLUTE COUNT 0.01 K/ L 0.04-0.36 L (BEAKER) (test code = 416) BASOPHILS ABSOLUTE COUNT (BEAKER) 0.02 K/ L 0.01-0.08 (test code = 417) IMMATURE GRANULOCYTES-RELATIVE 0.40 % 0.00-1.00 PERCENT (BEAKER) (test code = 2801) POCT-GLUCOSE [id number] 12:52:20 Test Item Value Reference Range Interpretation Comments POC-GLUCOSE METER 117 mg/dL 70-110 H : TESTED A T [facility] 67[address] (BEAKER) (test code = RADHA Janessa [facility], 1538) [address]: Rouge Mixer/Techni tawana ID = [id number] for Of Beatrice joaquin CREATINE KINASE (CK)2022-06-10 12:28:03 Test Item Value Reference Range Interpretation Comments CREATINE KINASE TOTAL (BEAKER) 25519 U/L 29-200 H (test code = 380) Rouge Mixer ID - [id number] 12:05:48 Test Item Value Reference Range Interpretation Comments FIBRINOGEN LEVEL (BEAKER) (test 414 mg/dl 225-434 code = 658) [id number] 11:54:29 Test Item Value Reference Range Interpretation Comments PARTIAL THROMBOPLASTIN TIME 31.2 seconds 22.5-36.0 (BEAKER) (test code = 760) PROTHROMBIN TIME/[id number] 11:53:47 Test Item Value Reference Range Interpretation Comments PROTIME (BEAKER) (test code = 15.8 seconds 11.9-14.2 H 759) INR (BEAKER) (test code = 370) 1.34 <=5.90 RECOMMENDED COUMADIN/WARFARIN INR THERAPY RANGESSTANDARD DOSE: 2.0 - 3.0 Includes: PROPHYLAXIS for venous thrombosis, systemic embolization; TREATMENT for venous thrombosis and/or pulmonary embolus.HIGH RISK: Target INR is 2.5-3.5 for patients with mechanical heart valves.CBC W/PLT COUNT & AUTO [id number] 11:44:01 Test Item Value Reference Range Interpretation Comments WHITE BLOOD CELL COUNT (BEAKER) 7.9 K/ L 3.5-10.5 (test code = 775) RED BLOOD CELL COUNT (BEAKER) 3.62 M/ L 3.93-5.22 L (test code = 761) HEMOGLOBIN (BEAKER) (test code = 10.0 GM/DL 11.2-15.7 L 410) HEMATOCRIT (BEAKER) (test code = 34.0 % 34.1-44.9 L 411) MEAN CORPUSCULAR VOLUME (BEAKER) 94 fL 79-95 (test code = 753) MEAN CORPUSCULAR HEMOGLOBIN 27.6 pg 25.6-32.2 (BEAKER) (test code = 751) MEAN CORPUSCULAR HEMOGLOBIN CONC 29.4 GM/DL 32.2-35.5 L (BEAKER) (test code = 752) RED CELL DISTRIBUTION WIDTH 15.5 % 11.7-14.4 H (BEAKER) (test code = 412) PLATELET COUNT (BEAKER) (test code 92 K/CU MM 150-450 L = 756) MEAN PLATELET VOLUME (BEAKER) 11.9 fL 9.4-12.3 (test code = 754) NUCLEATED RED BLOOD CELLS (BEAKER) 0 /100 WBC 0-0 (test code = 413) NEUTROPHILS RELATIVE PERCENT 81 % (BEAKER) (test code = 429) LYMPHOCYTES RELATIVE PERCENT 7 % (BEAKER) (test code = 430) MONOCYTES RELATIVE PERCENT 11 % (BEAKER) (test code = 431) EOSINOPHILS RELATIVE PERCENT 0 % (BEAKER) (test code = 432) BASOPHILS RELATIVE PERCENT 0 % (BEAKER) (test code = 437) NEUTROPHILS ABSOLUTE COUNT 6.44 K/ L 1.56-6.13 H (BEAKER) (test code = 670) LYMPHOCYTES ABSOLUTE COUNT 0.59 K/ L 1.18-3.74 L (BEAKER) (test code = 414) MONOCYTES ABSOLUTE COUNT (BEAKER) 0.83 K/ L 0.24-0.36 H (test code = 415) EOSINOPHILS ABSOLUTE COUNT 0.02 K/ L 0.04-0.36 L (BEAKER) (test code = 416) BASOPHILS ABSOLUTE COUNT (BEAKER) 0.02 K/ L 0.01-0.08 (test code = 417) IMMATURE GRANULOCYTES-RELATIVE 0.50 % 0.00-1.00 PERCENT (BEAKER) (test code = 2801) [id number] 11:07:04 Test Item Value Reference Range Interpretation Comments PHOSPHORUS (BEAKER) (test code = 3.7 mg/dL 2.3-4.7 604) Rouge Mixer ID - AAHAMIDBASIC METABOLIC [id number] 07:12:06 Test Item Value Reference Range Interpretation Comments SODIUM (BEAKER) 139 meq/L 136-145 (test code = 381) POTASSIUM 4.8 meq/L 3.5-5.1 (BEAKER) (test code = 379) CHLORIDE (BEAKER) 109 meq/L 98-107 H (test code = 382) CO2 (BEAKER) 22 meq/L 22-29 (test code = 355) BLOOD UREA 47 mg/dL 7-21 H NITROGEN (BEAKER) (test code = 354) CREATININE 1.98 mg/dL 0.57-1.25 H (BEAKER) (test code = 358) GLUCOSE RANDOM 108 mg/dL 70-105 H (BEAKER) (test code = 652) CALCIUM (BEAKER) 8.9 mg/dL 8.4-10.2 (test code = 697) EGFR (BEAKER) 26 Interpretatio n of eGFR (test code = mL/min/1.73 values Stage De scription 1092) sq m Result G1 Mckayla l or high >=90 G2 Mildly decreased 60-89 G3a Mildl y to moderately 45-5 9 G3b Moderately to s everely 30-44 G4 Severl y decreased 15-29 G5 Kidney failure <15Reported eGF R is based on the CKD-EPI 2021 equation that d oes not use a race coefficientEsti mated GFR is not as accur ate as Creatinine Sera chao in predicting glom erular filtration rate . Estimated GFR is not appl icable for dialysis patien ts Rouge Mixer ID - [id number] 06:06:17 Test Item Value Reference Range Interpretation Comments FIBRINOGEN LEVEL (BEAKER) (test 338 mg/dl 225-434 code = 658) [id number] 06:06:17 Test Item Value Reference Range Interpretation Comments PARTIAL THROMBOPLASTIN TIME 30.9 seconds 22.5-36.0 (BEAKER) (test code = 760) PROTHROMBIN [id number] 06:05:39 Test Item Value Reference Range Interpretation Comments PROTIME (BEAKER) (test code = 15.5 seconds 11.9-14.2 H 759) INR (BEAKER) (test code = 370) 1.26 <=5.90 RECOMMENDED COUMADIN/WARFARIN INR THERAPY RANGESSTANDARD DOSE: 2.0 - 3.0 Includes: PROPHYLAXIS for venous thrombosis, systemic embolization; TREATMENT for venous thrombosis and/or pulmonary embolus.HIGH RISK: Target INR is 2.5-3.5 for patients with mechanical heart valves.CBC W/PLT COUNT & AUTO [id number] 06:04:05 Test Item Value Reference Range Interpretation Comments WHITE BLOOD CELL COUNT 7.0 K/ L 3.5-10.5 (BEAKER) (test code = 775) RED BLOOD CELL COUNT 3.65 M/ L 3.93-5.22 L (BEAKER) (test code = 761) HEMOGLOBIN (BEAKER) 10.3 GM/DL 11.2-15.7 L (test code = 410) HEMATOCRIT (BEAKER) 34.4 % 34.1-44.9 (test code = 411) MEAN CORPUSCULAR VOLUME 94 fL 79-95 (BEAKER) (test code = 753) MEAN CORPUSCULAR 28.2 pg 25.6-32.2 HEMOGLOBIN (BEAKER) (test code = 751) MEAN CORPUSCULAR 29.9 GM/DL 32.2-35.5 L HEMOGLOBIN CONC (BEAKER) (test code = 752) RED CELL DISTRIBUTION 15.9 % 11.7-14.4 H WIDTH (BEAKER) (test code = 412) PLATELET COUNT (BEAKER) 95 K/CU MM 150-450 L (test code = 756) MEAN PLATELET VOLUME Unable to report due (BEAKER) (test code = to abn ormal Platelet 754) population distribution. NUCLEATED RED BLOOD 0 /100 WBC 0-0 CELLS (BEAKER) (test code = 413) NEUTROPHILS RELATIVE 77 % PERCENT (BEAKER) (test code = 429) LYMPHOCYTES RELATIVE 10 % PERCENT (BEAKER) (test code = 430) MONOCYTES RELATIVE 11 % PERCENT (BEAKER) (test code = 431) EOSINOPHILS RELATIVE 1 % PERCENT (BEAKER) (test code = 432) BASOPHILS RELATIVE 0 % PERCENT (BEAKER) (test code = 437) NEUTROPHILS ABSOLUTE 5.39 K/ L 1.56-6.13 COUNT (BEAKER) (test code = 670) LYMPHOCYTES ABSOLUTE 0.70 K/ L 1.18-3.74 L COUNT (BEAKER) (test code = 414) MONOCYTES ABSOLUTE 0.77 K/ L 0.24-0.36 H COUNT (BEAKER) (test code = 415) EOSINOPHILS ABSOLUTE 0.07 K/ L 0.04-0.36 COUNT (BEAKER) (test code = 416) BASOPHILS ABSOLUTE 0.03 K/ L 0.01-0.08 COUNT (BEAKER) (test code = 417) IMMATURE 0.60 % 0.00-1.00 GRANULOCYTES-RELATIVE PERCENT (BEAKER) (test code = 2801) [id number] 23:59:07 Test Item Value Reference Range Interpretation Comments PARTIAL THROMBOPLASTIN TIME 43.7 seconds 22.5-36.0 H (BEAKER) (test code = 760) [id number] 23:58:46 Test Item Value Reference Range Interpretation Comments FIBRINOGEN LEVEL (BEAKER) (test 413 mg/dl 225-434 code = 658) PROTHROMBIN [id number] 23:58:11 Test Item Value Reference Range Interpretation Comments PROTIME (BEAKER) (test code = 15.4 seconds 11.9-14.2 H 759) INR (BEAKER) (test code = 370) 1.29 <=5.90 RECOMMENDED COUMADIN/WARFARIN INR THERAPY RANGESSTANDARD DOSE: 2.0 - 3.0 Includes: PROPHYLAXIS for venous thrombosis, systemic embolization; TREATMENT for venous thrombosis and/or pulmonary embolus.HIGH RISK: Target INR is 2.5-3.5 for patients with mechanical heart valves.CBC W/PLT COUNT & AUTO [id number] 23:50:46 Test Item Value Reference Range Interpretation Comments WHITE BLOOD CELL COUNT (BEAKER) 7.6 K/ L 3.5-10.5 (test code = 775) RED BLOOD CELL COUNT (BEAKER) 3.80 M/ L 3.93-5.22 L (test code = 761) HEMOGLOBIN (BEAKER) (test code = 10.5 GM/DL 11.2-15.7 L 410) HEMATOCRIT (BEAKER) (test code = 35.3 % 34.1-44.9 411) MEAN CORPUSCULAR VOLUME (BEAKER) 93 fL 79-95 (test code = 753) MEAN CORPUSCULAR HEMOGLOBIN 27.6 pg 25.6-32.2 (BEAKER) (test code = 751) MEAN CORPUSCULAR HEMOGLOBIN CONC 29.7 GM/DL 32.2-35.5 L (BEAKER) (test code = 752) RED CELL DISTRIBUTION WIDTH 15.4 % 11.7-14.4 H (BEAKER) (test code = 412) PLATELET COUNT (BEAKER) (test code 96 K/CU MM 150-450 L = 756) MEAN PLATELET VOLUME (BEAKER) 12.5 fL 9.4-12.3 H (test code = 754) NUCLEATED RED BLOOD CELLS (BEAKER) 0 /100 WBC 0-0 (test code = 413) NEUTROPHILS RELATIVE PERCENT 78 % (BEAKER) (test code = 429) LYMPHOCYTES RELATIVE PERCENT 12 % (BEAKER) (test code = 430) MONOCYTES RELATIVE PERCENT 9 % (BEAKER) (test code = 431) EOSINOPHILS RELATIVE PERCENT 1 % (BEAKER) (test code = 432) BASOPHILS RELATIVE PERCENT 1 % (BEAKER) (test code = 437) NEUTROPHILS ABSOLUTE COUNT 5.89 K/ L 1.56-6.13 (BEAKER) (test code = 670) LYMPHOCYTES ABSOLUTE COUNT 0.87 K/ L 1.18-3.74 L (BEAKER) (test code = 414) MONOCYTES ABSOLUTE COUNT (BEAKER) 0.71 K/ L 0.24-0.36 H (test code = 415) EOSINOPHILS ABSOLUTE COUNT 0.05 K/ L 0.04-0.36 (BEAKER) (test code = 416) BASOPHILS ABSOLUTE COUNT (BEAKER) 0.04 K/ L 0.01-0.08 (test code = 417) IMMATURE GRANULOCYTES-RELATIVE 0.40 % 0.00-1.00 PERCENT (BEAKER) (test code = 2801) CREATINE KINASE (CK)2022-06-09 19:47:41 Test Item Value Reference Range Interpretation Comments CREATINE KINASE TOTAL (BEAKER) (test 6318 U/L 29-200 H code = 380) [employer] ID - BSOperator ID - [id number] 19:36:33 Test Item Value Reference Range Interpretation Comments PARTIAL THROMBOPLASTIN TIME 82.8 seconds 22.5-36.0 H (BEAKER) (test code = 760) [id number] 19:35:14 Test Item Value Reference Range Interpretation Comments FIBRINOGEN LEVEL (BEAKER) (test 303 mg/dl 225-434 code = 658) PROTHROMBIN [id number] 19:34:53 Test Item Value Reference Range Interpretation Comments PROTIME (BEAKER) (test code = 16.6 seconds 11.9-14.2 H 759) INR (BEAKER) (test code = 370) 1.37 <=5.90 RECOMMENDED COUMADIN/WARFARIN INR THERAPY RANGESSTANDARD DOSE: 2.0 - 3.0 Includes: PROPHYLAXIS for venous thrombosis, systemic embolization; TREATMENT for venous thrombosis and/or pulmonary embolus.HIGH RISK: Target INR is 2.5-3.5 for patients with mechanical heart valves.CBC W/PLT COUNT & AUTO [id number] 19:29:36 Test Item Value Reference Range Interpretation Comments WHITE BLOOD CELL COUNT (BEAKER) 7.7 K/ L 3.5-10.5 (test code = 775) RED BLOOD CELL COUNT (BEAKER) 3.66 M/ L 3.93-5.22 L (test code = 761) HEMOGLOBIN (BEAKER) (test code = 10.2 GM/DL 11.2-15.7 L 410) HEMATOCRIT (BEAKER) (test code = 34.2 % 34.1-44.9 411) MEAN CORPUSCULAR VOLUME (BEAKER) 93 fL 79-95 (test code = 753) MEAN CORPUSCULAR HEMOGLOBIN 27.9 pg 25.6-32.2 (BEAKER) (test code = 751) MEAN CORPUSCULAR HEMOGLOBIN CONC 29.8 GM/DL 32.2-35.5 L (BEAKER) (test code = 752) RED CELL DISTRIBUTION WIDTH 15.9 % 11.7-14.4 H (BEAKER) (test code = 412) PLATELET COUNT (BEAKER) (test code 99 K/CU MM 150-450 L = 756) MEAN PLATELET VOLUME (BEAKER) 13.1 fL 9.4-12.3 H (test code = 754) NUCLEATED RED BLOOD CELLS (BEAKER) 0 /100 WBC 0-0 (test code = 413) NEUTROPHILS RELATIVE PERCENT 79 % (BEAKER) (test code = 429) LYMPHOCYTES RELATIVE PERCENT 10 % (BEAKER) (test code = 430) MONOCYTES RELATIVE PERCENT 9 % (BEAKER) (test code = 431) EOSINOPHILS RELATIVE PERCENT 1 % (BEAKER) (test code = 432) BASOPHILS RELATIVE PERCENT 0 % (BEAKER) (test code = 437) NEUTROPHILS ABSOLUTE COUNT 6.14 K/ L 1.56-6.13 H (BEAKER) (test code = 670) LYMPHOCYTES ABSOLUTE COUNT 0.77 K/ L 1.18-3.74 L (BEAKER) (test code = 414) MONOCYTES ABSOLUTE COUNT (BEAKER) 0.66 K/ L 0.24-0.36 H (test code = 415) EOSINOPHILS ABSOLUTE COUNT 0.09 K/ L 0.04-0.36 (BEAKER) (test code = 416) BASOPHILS ABSOLUTE COUNT (BEAKER) 0.03 K/ L 0.01-0.08 (test code = 417) IMMATURE GRANULOCYTES-RELATIVE 0.50 % 0.00-1.00 PERCENT (BEAKER) (test code = 2801) HEMOGLOBIN [id number] 13:30:45 Test Item Value Reference Range Interpretation Comments HEMOGLOBIN A1C 6.0 % See_Comment H [Automated m essage] ELECTROPHORESIS (BEAKER) The system which (test code = 3811) generated this result transmitted ref erence range: <=5.6%. The reference range was not used to int erpret this result as normal/abnormal . "The A1c is measured using a NGSP-certified method. HbA1c value equal to or greater than 6.5% as thediagnosis cutoff for diabetes. An HbA1c value of 5.7- 6.4% indicates increased risk for diabetes (prediabetes)."[id number] 08:44:47 Test Item Value Reference Range Interpretation Comments PARTIAL THROMBOPLASTIN TIME 57.9 seconds 22.5-36.0 H (BEAKER) (test code = 760) TSH/FREE T4 IF [id number] 07:59:00 Test Item Value Reference Range Interpretation Comments THYROID STIMULATING HORMONE 2.168 uIU/mL 0.350-4.940 (BEAKER) (test code = 772) [facility] [employer] ID - [id number] 07:58:59 Test Item Value Reference Range Interpretation Comments FERRITIN (BEAKER) (test code = 170.60 ng/mL 5.00-275.00 361) [employer] ID - JUAN FRANCISCO, TIBC, % SAT. (WITHOUT FERRITIN)2022-06-09 07:38:21 Test Item Value Reference Range Interpretation Comments IRON (BEAKER) (test code = 547) 111.0 ug/dL 40.0-160.0 TOTAL IRON BINDING CAPACITY 261 ug/dL 250-450 (BEAKER) (test code = 769) IRON % SATURATION (2) (BEAKER) 43 % 20-55 (test code = 2590) [employer] ID - MARCOBASIC METABOLIC [id number] 03:10:52 Test Item Value Reference Range Interpretation Comments SODIUM (BEAKER) 136 meq/L 136-145 Sodium resul t was (test code = 381) double-salome cked POTASSIUM 4.4 meq/L 3.5-5.1 (BEAKER) (test code = 379) CHLORIDE (BEAKER) 104 meq/L 98-107 (test code = 382) CO2 (BEAKER) 23 meq/L 22-29 (test code = 355) BLOOD UREA 64 mg/dL 7-21 H NITROGEN (BEAKER) (test code = 354) CREATININE 2.60 mg/dL 0.57-1.25 H (BEAKER) (test code = 358) GLUCOSE RANDOM 123 mg/dL 70-105 H (BEAKER) (test code = 652) CALCIUM (BEAKER) 8.7 mg/dL 8.4-10.2 Calcium res ult was (test code = 697) double-salome cked EGFR (BEAKER) 19 Interpretatio n of eGFR (test code = mL/min/1.73 values Stage De scription 1092) sq m Result G1 Mckayla l or high >=90 G2 Mildly decreased 60-89 G3a Mildl y to moderately 45-5 9 G3b Moderately to s everely 30-44 G4 Severl y decreased 15-29 G5 Kidney failure <15Reported eGF R is based on the CKD-EPI 2021 equation that d oes not use a race coefficientEsti mated GFR is not as accur ate as Creatinine Sera chao in predicting glom erular filtration rate . Estimated GFR is not appl icable for dialysis patien ts [employer] ID - NOAHOOjalneator ID - TERENCE LLMOYID [id number] 02:32:44 Test Item Value Reference Range Interpretation Comments TRIGLYCERIDES (BEAKER) (test code = 51 mg/dL 540) CHOLESTEROL (BEAKER) (test code = 116 mg/dL 631) HDL CHOLESTEROL (BEAKER) (test code 44 mg/dL = 976) LDL CHOLESTEROL CALCULATED (BEAKER) 62 mg/dL (test code = 633) Triglyceride Reference Range: Low Risk <150 Borderline 150-199 High Risk 200-499 Very High Risk >=500Cholesterol Reference Range: Low Risk <200 Borderline 200-239 High Risk >240HDL Cholesterol Reference Range: Low Risk >=60 High Risk <40LDL Cholesterol Reference Range: Optimal <100 Near Optimal 100-129 Borderline 130-159 High 160-189 Very High >=190 [employer] ID - [id number] 01:49:13 Test Item Value Reference Range Interpretation Comments PARTIAL THROMBOPLASTIN TIME 83.2 seconds 22.5-36.0 H (BEAKER) (test code = 760) BASIC METABOLIC [id number] 20:58:04 Test Item Value Reference Range Interpretation Comments SODIUM (BEAKER) 125 meq/L 136-145 L (test code = 381) POTASSIUM 3.6 meq/L 3.5-5.1 Specimen modera tely (BEAKER) (test hemolyzed code = 379) CHLORIDE (BEAKER) 99 meq/L 98-107 (test code = 382) CO2 (BEAKER) 18 meq/L 22-29 L (test code = 355) BLOOD UREA 50 mg/dL 7-21 H NITROGEN (BEAKER) (test code = 354) CREATININE 1.83 mg/dL 0.57-1.25 H Specimen modera tely (BEAKER) (test hemolyzed code = 358) GLUCOSE RANDOM 75 mg/dL 70-105 (BEAKER) (test code = 652) CALCIUM (BEAKER) 6.2 mg/dL 8.4-10.2 L (test code = 697) EGFR (BEAKER) 29 Interpretatio n of eGFR (test code = mL/min/1.73 values Stage De scription 1092) sq m Result G1 Mckayla l or high >=90 G2 Mildly decreased 60-89 G3a Mildl y to moderately 45-5 9 G3b Moderately to s everely 30-44 G4 Severl y decreased 15-29 G5 Kidney failure <15Reported eGF R is based on the CKD-EPI 2020 equation that d oes not use a race coefficientEsti mated GFR is not as accur ate as Creatinine Sera chao in predicting glom erular filtration rate . Estimated GFR is not appl icable for dialysis patien ts [employer] ID - BSCREATINE KINASE (CK)2022-06-08 20:57:46 Test Item Value Reference Range Interpretation Comments CREATINE KINASE TOTAL (BEAKER) (test 1000 U/L 29-200 H code = 380) [employer] ID - [id number] 18:24:08 Test Item Value Reference Range Interpretation Comments PARTIAL THROMBOPLASTIN TIME 92.7 seconds 22.5-36.0 H (BEAKER) (test code = 760) Urinalysis w/Microscopic + Reflex to [id number] 15:18:50 Test Item Value Reference Range Interpretation Comments Color, UA (test code Light Yellow = 5778-6) Clarity, UA (test Clear code = 5767-9) Specific Cleves, UA 1.013 1.001-1.035 (test code = 5811-5) pH, UA (test code = 6.0 5.0-8.0 5803-2) Protein, UA (test 10 mg/dL Negative A code = 47954-8) Glucose, UA (test Negative Negative code = 365) Ketones, UA (test Negative Negative code = 2514-8) Bilirubin, UA (test Negative Negative code = 40592-5) Blood, UA (test code Negative Negative = 09525-5) Nitrite, UA (test Negative Negative code = 5802-4) Leukocytes, UA (test Negative Negative code = 5799-2) Urobilinogen, UA 0.2 0.2-1.0 (test code = 72241-7) RBC, UA (test code = 1 See_Comment [Autom ated 03049-6) message] The system which generated this result transmit angelina reference range : /HPF. The reference range was not used to interpret this result as normal/abnormal . WBC, UA (test code = 1 See_Comment [Autom ated 5821-4) message] The system which generated this result transmit angelina reference range : /HPF. The reference range was not used to interpret this result as normal/abnormal . Bacteria, UA (test Rare code = 79440-1) Squam Epithel, UA See_Comment [Automate d (test code = 10036-6) messag e] The system which generated this result transmit angelina reference range : /HPF. The reference range was not used to interpret this result as normal/abnormal . Specimen Source (test code = 2795) KRYSTINA (test code = KRYSTINA) [employer] ID - [auto][facility] [employer] ID - tech Lab Interpretation Abnormal (test code = 26069-0) [facility] 2022-[facility]-08 15:18:50 Test Item Value Reference Range Interpretation Comments Color, UA (test code Light Yellow = 5778-6) Clarity, UA (test Clear code = 5767-9) Specific Cleves, UA 1.013 1.001-1.035 (test code = 5811-5) pH, UA (test code = 6.0 5.0-8.0 5803-2) Protein, UA (test 10 mg/dL Negative A code = 24692-5) Glucose, UA (test Negative Negative code = 365) Ketones, UA (test Negative Negative code = 2514-8) Bilirubin, UA (test Negative Negative code = 95595-6) Blood, UA (test code Negative Negative = 61448-6) Nitrite, UA (test Negative Negative code = 5802-4) Leukocytes, UA (test Negative Negative code = 5799-2) Urobilinogen, UA 0.2 0.2-1.0 (test code = 20754-9) RBC, UA (test code = 1 See_Comment [Autom ated 85152-6) message] The system which generated this result transmit angelina reference range : /HPF. The reference range was not used to interpret this result as normal/abnormal . WBC, UA (test code = 1 See_Comment [Autom ated 5821-4) message] The system which generated this result transmit angelina reference range : /HPF. The reference range was not used to interpret this result as normal/abnormal . Bacteria, UA (test Rare code = 30141-6) Squam Epithel, UA See_Comment [Automate d (test code = 63788-7) messag e] The system which generated this result transmit angelina reference range : /HPF. The reference range was not used to interpret this result as normal/abnormal . Specimen Source (test code = 2795) KRYSTINA (test code = KRYSTINA) [employer] ID - [auto][facility] [employer] ID - tech Lab Interpretation Abnormal (test code = 40431-0) [facility] 2022-06-08 15:18:50 Test Item Value Reference Range Interpretation Comments Color, UA (test code Light Yellow = 5778-6) Clarity, UA (test Clear code = 5767-9) Specific Cleves, UA 1.013 1.001-1.035 (test code = 5811-5) pH, UA (test code = 6.0 5.0-8.0 5803-2) Protein, UA (test 10 mg/dL Negative A code = 86666-3) Glucose, UA (test Negative Negative code = 365) Ketones, UA (test Negative Negative code = 2514-8) Bilirubin, UA (test Negative Negative code = 06437-5) Blood, UA (test code Negative Negative = 70897-9) Nitrite, UA (test Negative Negative code = 5802-4) Leukocytes, UA (test Negative Negative code = 5799-2) Urobilinogen, UA 0.2 0.2-1.0 (test code = 88666-7) RBC, UA (test code = 1 See_Comment [Autom ated 56055-7) message] The system which generated this result transmit angelina reference range : /HPF. The reference range was not used to interpret this result as normal/abnormal . WBC, UA (test code = 1 See_Comment [Autom ated 5821-4) message] The system which generated this result transmit angelina reference range : /HPF. The reference range was not used to interpret this result as normal/abnormal . Bacteria, UA (test Rare code = 36163-3) Squam Epithel, UA See_Comment [Automate d (test code = 56203-6) messag e] The system which generated this result transmit angelina reference range : /HPF. The reference range was not used to interpret this result as normal/abnormal . Specimen Source (test code = 2795) KRYSTINA (test code = KRYSTINA) [employer] ID - [auto][facility] [employer] ID - tech Lab Interpretation Abnormal (test code = 46073-5) [facility] 2022-06-08 15:18:50 Test Item Value Reference Range Interpretation Comments Color, UA (test code Light Yellow = 5778-6) Clarity, UA (test Clear code = 5767-9) Specific Cleves, UA 1.013 1.001-1.035 (test code = 5811-5) pH, UA (test code = 6.0 5.0-8.0 5803-2) Protein, UA (test 10 mg/dL Negative A code = 13033-1) Glucose, UA (test Negative Negative code = 365) Ketones, UA (test Negative Negative code = 2514-8) Bilirubin, UA (test Negative Negative code = 19261-1) Blood, UA (test code Negative Negative = 47302-8) Nitrite, UA (test Negative Negative code = 5802-4) Leukocytes, UA (test Negative Negative code = 5799-2) Urobilinogen, UA 0.2 0.2-1.0 (test code = 55783-9) RBC, UA (test code = 1 See_Comment [Autom ated 45395-1) message] The system which generated this result transmit angelina reference range : /HPF. The reference range was not used to interpret this result as normal/abnormal . WBC, UA (test code = 1 See_Comment [Autom ated 5821-4) message] The system which generated this result transmit angelina reference range : /HPF. The reference range was not used to interpret this result as normal/abnormal . Bacteria, UA (test Rare code = 61425-7) Squam Epithel, UA See_Comment [Automate d (test code = 13966-1) messag e] The system which generated this result transmit angelina reference range : /HPF. The reference range was not used to interpret this result as normal/abnormal . Specimen Source (test code = 2795) KRYSTINA (test code = KRYSTINA) [employer] ID - [auto][facility] [employer] ID - tech Lab Interpretation Abnormal (test code = 19663-1) [facility] Culture 2022-06-08 15:18:50 Test Item Value Reference Range Interpretation Comments Color, UA (test code Light Yellow = 5778-6) Clarity, UA (test Clear code = 5767-9) Specific Cleves, UA 1.013 1.001-1.035 (test code = 5811-5) pH, UA (test code = 6.0 5.0-8.0 5803-2) Protein, UA (test 10 mg/dL Negative A code = 88302-5) Glucose, UA (test Negative Negative code = 365) Ketones, UA (test Negative Negative code = 2514-8) Bilirubin, UA (test Negative Negative code = 59625-5) Blood, UA (test code Negative Negative = 80292-8) Nitrite, UA (test Negative Negative code = 5802-4) Leukocytes, UA (test Negative Negative code = 5799-2) Urobilinogen, UA 0.2 0.2-1.0 (test code = 31404-7) RBC, UA (test code = 1 See_Comment [Autom ated 88710-3) message] The system which generated this result transmit angelina reference range : /HPF. The reference range was not used to interpret this result as normal/abnormal . WBC, UA (test code = 1 See_Comment [Autom ated 5821-4) message] The system which generated this result transmit angelina reference range : /HPF. The reference range was not used to interpret this result as normal/abnormal . Bacteria, UA (test Rare code = 43241-2) Squam Epithel, UA See_Comment [Automate d (test code = 91664-2) messag e] The system which generated this result transmit angelina reference range : /HPF. The reference range was not used to interpret this result as normal/abnormal . Specimen Source (test code = 2795) KRYSTINA (test code = KRYSTINA) [employer] ID - [auto][facility] [employer] ID - tech Lab Interpretation Abnormal (test code = 72760-8) [facility] Ref[facility] Culture 2022-06-08 15:18:50 Test Item Value Reference Range Interpretation Comments Color, UA (test code Light Yellow = 5778-6) Clarity, UA (test Clear code = 5767-9) Specific Cleves, UA 1.013 1.001-1.035 (test code = 5811-5) pH, UA (test code = 6.0 5.0-8.0 5803-2) Protein, UA (test 10 mg/dL Negative A code = 72620-7) Glucose, UA (test Negative Negative code = 365) Ketones, UA (test Negative Negative code = 2514-8) Bilirubin, UA (test Negative Negative code = 13081-4) Blood, UA (test code Negative Negative = 38090-7) Nitrite, UA (test Negative Negative code = 5802-4) Leukocytes, UA (test Negative Negative code = 5799-2) Urobilinogen, UA 0.2 0.2-1.0 (test code = 91185-4) RBC, UA (test code = 1 See_Comment [Autom ated 71734-8) message] The system which generated this result transmit angelina reference range : /HPF. The reference range was not used to interpret this result as normal/abnormal . WBC, UA (test code = 1 See_Comment [Autom ated 5821-4) message] The system which generated this result transmit angelina reference range : /HPF. The reference range was not used to interpret this result as normal/abnormal . Bacteria, UA (test Rare code = 04949-8) Squam Epithel, UA See_Comment [Automate d (test code = 73172-0) messag e] The system which generated this result transmit angelina reference range : /HPF. The reference range was not used to interpret this result as normal/abnormal . Specimen Source (test code = 2795) KRYSTINA (test code = KRYSTINA) [employer] ID - [auto][facility] [employer] ID - tech Lab Interpretation Abnormal (test code = 12266-4) [facility] Reflex to Culture 2022-06-08 15:18:50 Test Item Value Reference Range Interpretation Comments Color, UA (test code Light Yellow = 5778-6) Clarity, UA (test Clear code = 5767-9) Specific Cleves, UA 1.013 1.001-1.035 (test code = 5811-5) pH, UA (test code = 6.0 5.0-8.0 5803-2) Protein, UA (test 10 mg/dL Negative A code = 81783-2) Glucose, UA (test Negative Negative code = 365) Ketones, UA (test Negative Negative code = 2514-8) Bilirubin, UA (test Negative Negative code = 59600-0) Blood, UA (test code Negative Negative = 40505-9) Nitrite, UA (test Negative Negative code = 5802-4) Leukocytes, UA (test Negative Negative code = 5799-2) Urobilinogen, UA 0.2 0.2-1.0 (test code = 71932-1) RBC, UA (test code = 1 See_Comment [Autom ated 79066-3) message] The system which generated this result transmit angelina reference range : /HPF. The reference range was not used to interpret this result as normal/abnormal . WBC, UA (test code = 1 See_Comment [Autom ated 5821-4) message] The system which generated this result transmit angelina reference range : /HPF. The reference range was not used to interpret this result as normal/abnormal . Bacteria, UA (test Rare code = 63012-7) Squam Epithel, UA See_Comment [Automate d (test code = 40207-1) messag e] The system which generated this result transmit angelina reference range : /HPF. The reference range was not used to interpret this result as normal/abnormal . Specimen Source (test code = 2795) KRYSTINA (test code = KRYSTINA) [employer] ID - [auto][facility] [employer] ID - tech Lab Interpretation Abnormal (test code = 55833-4) [facility] Reflex to Culture 2022-06-08 15:18:50 Test Item Value Reference Range Interpretation Comments Color, UA (test code Light Yellow = 5778-6) Clarity, UA (test Clear code = 5767-9) Specific Cleves, UA 1.013 1.001-1.035 (test code = 5811-5) pH, UA (test code = 6.0 5.0-8.0 5803-2) Protein, UA (test 10 mg/dL Negative A code = 14257-9) Glucose, UA (test Negative Negative code = 365) Ketones, UA (test Negative Negative code = 2514-8) Bilirubin, UA (test Negative Negative code = 24199-8) Blood, UA (test code Negative Negative = 99310-1) Nitrite, UA (test Negative Negative code = 5802-4) Leukocytes, UA (test Negative Negative code = 5799-2) Urobilinogen, UA 0.2 0.2-1.0 (test code = 54715-9) RBC, UA (test code = 1 See_Comment [Autom ated 32339-3) message] The system which generated this result transmit angelina reference range : /HPF. The reference range was not used to interpret this result as normal/abnormal . WBC, UA (test code = 1 See_Comment [Autom ated 5821-4) message] The system which generated this result transmit angelina reference range : /HPF. The reference range was not used to interpret this result as normal/abnormal . Bacteria, UA (test Rare code = 91022-8) Squam Epithel, UA See_Comment [Automate d (test code = 43773-6) messag e] The system which generated this result transmit angelina reference range : /HPF. The reference range was not used to interpret this result as normal/abnormal . Specimen Source (test code = 2795) KRYSTINA (test code = KRYSTINA) [employer] ID - [auto][facility] [employer] ID - tech Lab Interpretation Abnormal (test code = 62104-4) [facility] Reflex to Culture 2022-06-08 15:18:50 Test Item Value Reference Range Interpretation Comments Color, UA (test code Light Yellow = 5778-6) Clarity, UA (test Clear code = 5767-9) Specific Cleves, UA 1.013 1.001-1.035 (test code = 5811-5) pH, UA (test code = 6.0 5.0-8.0 5803-2) Protein, UA (test 10 mg/dL Negative A code = 34772-3) Glucose, UA (test Negative Negative code = 365) Ketones, UA (test Negative Negative code = 2514-8) Bilirubin, UA (test Negative Negative code = 42303-5) Blood, UA (test code Negative Negative = 21983-4) Nitrite, UA (test Negative Negative code = 5802-4) Leukocytes, UA (test Negative Negative code = 5799-2) Urobilinogen, UA 0.2 0.2-1.0 (test code = 10630-9) RBC, UA (test code = 1 See_Comment [Autom ated 27959-2) message] The system which generated this result transmit angelina reference range : /HPF. The reference range was not used to interpret this result as normal/abnormal . WBC, UA (test code = 1 See_Comment [Autom ated 5821-4) message] The system which generated this result transmit angelina reference range : /HPF. The reference range was not used to interpret this result as normal/abnormal . Bacteria, UA (test Rare code = 64520-7) Squam Epithel, UA <1 See_Comment [Automate d (test code = 96542-9) messag e] The system which generated this result transmit angelina reference range : /HPF. The reference range was not used to interpret this result as normal/abnormal . Specimen Source (test code = 2795) KRYSTINA (test code = KRYSTINA) [employer] ID - [auto]Rouge [employer] ID - tech Lab Interpretation Abnormal (test code = 06850-3) [facility] Reflex [facility] Culture 2022-06-08 15:18:50 Test Item Value Reference Range Interpretation Comments Color, UA (test code Light Yellow = 5778-6) Clarity, UA (test Clear code = 5767-9) Specific Cleves, UA 1.013 1.001-1.035 (test code = 5811-5) pH, UA (test code = 6.0 5.0-8.0 5803-2) Protein, UA (test 10 mg/dL Negative A code = 21803-0) Glucose, UA (test Negative Negative code = 365) Ketones, UA (test Negative Negative code = 2514-8) Bilirubin, UA (test Negative Negative code = 51648-3) Blood, UA (test code Negative Negative = 74339-7) Nitrite, UA (test Negative Negative code = 5802-4) Leukocytes, UA (test Negative Negative code = 5799-2) Urobilinogen, UA 0.2 0.2-1.0 (test code = 01238-5) RBC, UA (test code = 1 See_Comment [Autom ated 39191-1) message] The system which generated this result transmit angelina reference range : /HPF. The reference range was not used to interpret this result as normal/abnormal . WBC, UA (test code = 1 See_Comment [Autom ated 5821-4) message] The system which generated this result transmit angelina reference range : /HPF. The reference range was not used to interpret this result as normal/abnormal . Bacteria, UA (test Rare code = 15647-1) Squam Epithel, UA See_Comment [Automate d (test code = 15441-2) messag e] The system which generated this result transmit angelina reference range : /HPF. The reference range was not used to interpret this result as normal/abnormal . Specimen Source (test code = 2795) KRYSTINA (test code = KRYSTINA) [employer] ID - [auto]Rouge [employer] ID - tech Lab Interpretation Abnormal (test code = 84614-3) [facility] Ref[facility] Culture 2022-06-08 15:18:50 Test Item Value Reference Range Interpretation Comments Color, UA (test code Light Yellow = 5778-6) Clarity, UA (test Clear code = 5767-9) Specific Cleves, UA 1.013 1.001-1.035 (test code = 5811-5) pH, UA (test code = 6.0 5.0-8.0 5803-2) Protein, UA (test 10 mg/dL Negative A code = 79946-0) Glucose, UA (test Negative Negative code = 365) Ketones, UA (test Negative Negative code = 2514-8) Bilirubin, UA (test Negative Negative code = 21202-9) Blood, UA (test code Negative Negative = 69503-5) Nitrite, UA (test Negative Negative code = 5802-4) Leukocytes, UA (test Negative Negative code = 5799-2) Urobilinogen, UA 0.2 0.2-1.0 (test code = 48876-0) RBC, UA (test code = 1 See_Comment [Autom ated 26334-5) message] The system which generated this result transmit angelina reference range : /HPF. The reference range was not used to interpret this result as normal/abnormal . WBC, UA (test code = 1 See_Comment [Autom ated 5821-4) message] The system which generated this result transmit angelina reference range : /HPF. The reference range was not used to interpret this result as normal/abnormal . Bacteria, UA (test Rare code = 57887-6) Squam Epithel, UA See_Comment [Automate d (test code = 54343-6) messag e] The system which generated this result transmit angelina reference range : /HPF. The reference range was not used to interpret this result as normal/abnormal . Specimen Source (test code = 2795) KRYSTINA (test code = KRYSTINA) [employer] ID - [auto]Rouge Mixer ID - tech Lab Interpretation Abnormal (test code = 93280-1) [facility] Ref[facility] Culture 2022-06-08 15:18:50 Test Item Value Reference Range Interpretation Comments Color, UA (test code Light Yellow = 5778-6) Clarity, UA (test Clear code = 5767-9) Specific Cleves, UA 1.013 1.001-1.035 (test code = 5811-5) pH, UA (test code = 6.0 5.0-8.0 5803-2) Protein, UA (test 10 mg/dL Negative A code = 10441-8) Glucose, UA (test Negative Negative code = 365) Ketones, UA (test Negative Negative code = 2514-8) Bilirubin, UA (test Negative Negative code = 87787-8) Blood, UA (test code Negative Negative = 01142-6) Nitrite, UA (test Negative Negative code = 5802-4) Leukocytes, UA (test Negative Negative code = 5799-2) Urobilinogen, UA 0.2 0.2-1.0 (test code = 66256-0) RBC, UA (test code = 1 See_Comment [Autom ated 24336-8) message] The system which generated this result transmit angelina reference range : /HPF. The reference range was not used to interpret this result as normal/abnormal . WBC, UA (test code = 1 See_Comment [Autom ated 5821-4) message] The system which generated this result transmit angelina reference range : /HPF. The reference range was not used to interpret this result as normal/abnormal . Bacteria, UA (test Rare code = 58645-6) Squam Epithel, UA See_Comment [Automate d (test code = 96761-3) messag e] The system which generated this result transmit angelina reference range : /HPF. The reference range was not used to interpret this result as normal/abnormal . Specimen Source (test code = 2795) KRYSTINA (test code = KRYSTINA) Rouge Mixer ID - [auto]Rouge Mixer ID - tech Lab Interpretation Abnormal (test code = 45892-0) [facility] Reflex [facility] Culture 2022-06-08 15:18:50 Test Item Value Reference Range Interpretation Comments Color, UA (test code Light Yellow = 5778-6) Clarity, UA (test Clear code = 5767-9) Specific Cleves, UA 1.013 1.001-1.035 (test code = 5811-5) pH, UA (test code = 6.0 5.0-8.0 5803-2) Protein, UA (test 10 mg/dL Negative A code = 82249-3) Glucose, UA (test Negative Negative code = 365) Ketones, UA (test Negative Negative code = 2514-8) Bilirubin, UA (test Negative Negative code = 21391-4) Blood, UA (test code Negative Negative = 38628-0) Nitrite, UA (test Negative Negative code = 5802-4) Leukocytes, UA (test Negative Negative code = 5799-2) Urobilinogen, UA 0.2 0.2-1.0 (test code = 34070-3) RBC, UA (test code = 1 See_Comment [Autom ated 93449-4) message] The system which generated this result transmit angelina reference range : /HPF. The reference range was not used to interpret this result as normal/abnormal . WBC, UA (test code = 1 See_Comment [Autom ated 5821-4) message] The system which generated this result transmit angelina reference range : /HPF. The reference range was not used to interpret this result as normal/abnormal . Bacteria, UA (test Rare code = 53497-8) Squam Epithel, UA <1 See_Comment [Automate d (test code = 31565-3) messag e] The system which generated this result transmit angelina reference range : /HPF. The reference range was not used to interpret this result as normal/abnormal . Specimen Source (test code = 2795) KRYSTINA (test code = KRYSTINA) Rouge Mixer ID - [auto]Rouge Mixer ID - tech Lab Interpretation Abnormal (test code = 58769-6) [facility] Reflex [facility] Culture 2022-06-08 15:18:50 Test Item Value Reference Range Interpretation Comments Color, UA (test code Light Yellow = 5778-6) Clarity, UA (test Clear code = 5767-9) Specific Cleves, UA 1.013 1.001-1.035 (test code = 5811-5) pH, UA (test code = 6.0 5.0-8.0 5803-2) Protein, UA (test 10 mg/dL Negative A code = 68371-4) Glucose, UA (test Negative Negative code = 365) Ketones, UA (test Negative Negative code = 2514-8) Bilirubin, UA (test Negative Negative code = 86303-4) Blood, UA (test code Negative Negative = 47128-3) Nitrite, UA (test Negative Negative code = 5802-4) Leukocytes, UA (test Negative Negative code = 5799-2) Urobilinogen, UA 0.2 0.2-1.0 (test code = 99278-5) RBC, UA (test code = 1 See_Comment [Autom ated 80819-8) message] The system which generated this result transmit angelina reference range : /HPF. The reference range was not used to interpret this result as normal/abnormal . WBC, UA (test code = 1 See_Comment [Autom ated 5821-4) message] The system which generated this result transmit angelina reference range : /HPF. The reference range was not used to interpret this result as normal/abnormal . Bacteria, UA (test Rare code = 61726-4) Squam Epithel, UA See_Comment [Automate d (test code = 93734-6) messag e] The system which generated this result transmit angelina reference range : /HPF. The reference range was not used to interpret this result as normal/abnormal . Specimen Source (test code = 2795) KRYSTINA (test code = KRYSTINA) Rouge [employer] ID - [auto]Rouge Mixer ID - tech Lab Interpretation Abnormal (test code = 24200-1) [facility] URINE [id number] 15:18:50 Test Item Value Reference Range Interpretation Comments COLOR (BEAKER) (test code = 470) Light Yellow CLARITY (BEAKER) (test code = Clear 469) SPECIFIC GRAVITY UA (BEAKER) 1.013 1.001-1.035 (test code = 468) PH UA (BEAKER) (test code = 467) 6.0 5.0-8.0 PROTEIN UA (BEAKER) (test code = 10 mg/dL Negative A 464) GLUCOSE UA (BEAKER) (test code = Negative Negative 365) KETONES UA (BEAKER) (test code = Negative Negative 371) BILIRUBIN UA (BEAKER) (test code Negative Negative = 462) BLOOD UA (BEAKER) (test code = Negative Negative 461) NITRITE UA (BEAKER) (test code = Negative Negative 465) LEUKOCYTE ESTERASE UA (BEAKER) Negative Negative (test code = 466) UROBILINOGEN UA (BEAKER) (test 0.2 0.2-1.0 code = 463) RBC UA (BEAKER) (test code = 1 /HPF 519) WBC UA (BEAKER) (test code = 1 /HPF 520) BACTERIA (BEAKER) (test code = Rare 517) SQUAMOUS EPITHELIAL (BEAKER) < /HPF (test code = 516) SOURCE(BEAKER) (test code = 2795) [employer]er ID - [auto]Rouge Mixer ID - techB-TYPE NATRIURETIC FACTOR (BNP)2022-06-08 13:47:29 Test Item Value Reference Range Interpretation Comments B-TYPE NATRIURETIC PEPTIDE (BEAKER) 747 pg/mL 0-100 H (test code = 700) Rouge [employer] ID - [id number] 11:53:39 Test Item Value Reference Range Interpretation Comments PARTIAL THROMBOPLASTIN TIME 68.2 seconds 22.5-36.0 H (BEAKER) (test code = 760) 2D Echo W/Doppler(CW/PW/Color)2022-06-08 11:27:27Ejection FractionSLEH ECHO HEARTLAB [facility] W/Doppler(CW/PW/Color)2022-06-08 11:27:27Ejection FractionSLEH ECHO HEARTLAB [facility] Echo W/Doppler(CW/PW/Color) 2022-06-08 11:27:27Ejection FractionSLEH ECHO HEARTLAB [facility] Echo W/Doppler(CW/PW/Color)2022-06-08 11:27:27Ejection FractionSLEH ECHO HEARTLAB [facility] Echo W/Doppler(CW/PW/Color)2022-06-08 11:27:27Ejection FractionSLEH ECHO HEARTLAB [facility] Echo W/Doppler(CW/PW/Color) 2022-06-08 11:27:27Ejection FractionSLEH ECHO HEARTLAB [facility] Echo W/Doppler(CW/PW/Color)2022-06-08 11:27:27Ejection FractionSLEH ECHO HEARTLAB [facility]2D Echo W/Doppler(CW/PW/Color)2022-06-08 11:27:27Ejection FractionSLEH ECHO HEARTLAB [facility] Echo W/Doppler(CW/PW/Color) 2022-06-08 11:27:27Ejection FractionSLEH ECHO HEARTLAB [facility] Echo W/Doppler(CW/PW/Color)2022-06-08 11:27:27Ejection FractionSLEH ECHO HEARTLAB [facility] Echo W/Doppler(CW/PW/Color)2022-06-08 11:27:27Ejection FractionSLE ECHO HEARTLAB [facility] Echo W/Doppler(CW/PW/Color) 2022-06-08 11:27:27Ejection FractionSLE ECHO HEARTLAB [facility] Echo W/Doppler(CW/PW/Color)2022-06-08 11:27:27Ejection FractionSLEH ECHO HEARTLAB [facility] W/Doppler(CW/PW/Color)2022-06-08 11:27:27[facility] [id number] 05:42:00Reason for exam:->Remote hx of abdominal aortic stent [facility] : 1950 Sex: FFINAL REPORT EXAM/TECHNIQUE: RAD, ABDOMEN/KUB, 1 VIEW AP INDICATION: History of aortic stent. COMPARISON: Outside CT abdomen and pelvis from 06/07/2022. FINDINGS: Nonspecific bowel gas pattern. No acute osseous process. Status post fusion of the lower lumbar spine. No metallic stent is identified. Impression: Nonspecific bowel gas pattern. Signed: Aneudy Mendes MDRepsaint [facility] Verified Date/Time: 06/08/2022 05:42:00 RAD, CHEST, 1 VIEW, NON [id number] 05:12:00Reason for exam:->Hx aortic stent placementShould this be performed at the bedside?->Yes [facility] : 1950 Sex: FFINAL REPORT EXAM/TECHNIQUE: Single view frontal radiograph of the chest. INDICATION: Aortic stent. COMPARISON: None. FINDINGS: Devices/Objects: AICD is present along with coronary venous lead. No metallic aortic prosthesis is identified. Lungs: Trace right pleural effusion. Heart/Mediastinum: No cardiomegaly. No interstitial thickening. Osseous: No acute osseous process. No suspicious osseous lesion. Upper abdomen: Unremarkable. Impression: Trace right pleural effusion. Signed: Aneudy Mendeseport Verified Date/Time: 06/08/2022 05:12:54 Electronically signed by: Alyssia HESTER 06/08/2022 05:12 [id number] 04:50:36 Test Item Value Reference Range Interpretation Comments PARTIAL THROMBOPLASTIN TIME 77.9 seconds 22.5-36.0 H (BEAKER) (test code = 760) [id number] 04:17:52 Test Item Value Reference Range Interpretation Comments FIBRINOGEN LEVEL (BEAKER) (test 437 mg/dl 225-434 H code = 658) COMPREHENSIVE METABOLIC [id number] 04:14:31 Test Item Value Reference Range Interpretation Comments TOTAL PROTEIN 7.9 gm/dL 6.0-8.3 (BEAKER) (test code = 770) ALBUMIN (BEAKER) 3.7 g/dL 3.5-5.0 (test code = 1145) ALKALINE 70 U/L 40-150 PHOSPHATASE (BEAKER) (test code = 346) BILIRUBIN TOTAL 0.5 mg/dL 0.2-1.2 (BEAKER) (test code = 377) SODIUM (BEAKER) 140 meq/L 136-145 (test code = 381) POTASSIUM (BEAKER) 4.5 meq/L 3.5-5.1 (test code = 379) CHLORIDE (BEAKER) 104 meq/L 98-107 (test code = 382) CO2 (BEAKER) (test 23 meq/L 22-29 code = 355) BLOOD UREA 81 mg/dL 7-21 H NITROGEN (BEAKER) (test code = 354) CREATININE 3.24 mg/dL 0.57-1.25 H (BEAKER) (test code = 358) GLUCOSE RANDOM 121 mg/dL 70-105 H (BEAKER) (test code = 652) CALCIUM (BEAKER) 9.7 mg/dL 8.4-10.2 (test code = 697) AST (SGOT) 22 U/L 5-34 (BEAKER) (test code = 353) ALT (SGPT) 13 U/L 6-55 (BEAKER) (test code = 347) EGFR (BEAKER) 15 Interpretatio n of eGFR (test code = 1092) mL/min/1.[address] age Description sq m Result G1 Mckayla l or high >=90 G2 Mildly decreased 60-89 G3a Mildl y to moderately 45-5 9 G3b Moderately to s everely 30-44 G4 Severl y decreased 15-29 G5 Kidney failure <15Reported eGF R is based on the CKD-EPI 2021 equation that d oes not use a race coefficientEsti mated GFR is not as accur ate as Creatinine Sera chao in predicting glom erular filtration rate . Estimated GFR is not appl icable for dialysis patien ts Rouge Mixer ID - [id number] 04:02:30 Test Item Value Reference Range Interpretation Comments PARTIAL THROMBOPLASTIN TIME 113.7 seconds 22.5-36.0 H (BEAKER) (test code = 760) PROTHROMBIN [id number] 03:56:21 Test Item Value Reference Range Interpretation Comments PROTIME (BEAKER) (test code = 15.9 seconds 11.9-14.2 H 759) INR (BEAKER) (test code = 370) 1.35 <=5.90 RECOMMENDED COUMADIN/WARFARIN INR THERAPY RANGESSTANDARD DOSE: 2.0 - 3.0 Includes: PROPHYLAXIS for venous thrombosis, systemic embolization; TREATMENT for venous thrombosis and/or pulmonary embolus.HIGH RISK: Target INR is 2.5-3.5 for patients with mechanical heart valves.CBC W/PLT COUNT & AUTO [id number] 03:53:38 Test Item Value Reference Range Interpretation Comments WHITE BLOOD CELL COUNT (BEAKER) 8.4 K/ L 3.5-10.5 (test code = 775) RED BLOOD CELL COUNT (BEAKER) 3.92 M/ L 3.93-5.22 L (test code = 761) HEMOGLOBIN (BEAKER) (test code = 11.1 GM/DL 11.2-15.7 L 410) HEMATOCRIT (BEAKER) (test code = 35.8 % 34.1-44.9 411) MEAN CORPUSCULAR VOLUME (BEAKER) 91 fL 79-95 (test code = 753) MEAN CORPUSCULAR HEMOGLOBIN 28.3 pg 25.6-32.2 (BEAKER) (test code = 751) MEAN CORPUSCULAR HEMOGLOBIN CONC 31.0 GM/DL 32.2-35.5 L (BEAKER) (test code = 752) RED CELL DISTRIBUTION WIDTH 15.6 % 11.7-14.4 H (BEAKER) (test code = 412) PLATELET COUNT (BEAKER) (test 119 K/CU MM 150-450 L code = 756) MEAN PLATELET VOLUME (BEAKER) 13.6 fL 9.4-12.3 H (test code = 754) NUCLEATED RED BLOOD CELLS 0 /100 WBC 0-0 (BEAKER) (test code = 413) NEUTROPHILS RELATIVE PERCENT 84 % (BEAKER) (test code = 429) LYMPHOCYTES RELATIVE PERCENT 11 % (BEAKER) (test code = 430) MONOCYTES RELATIVE PERCENT 5 % (BEAKER) (test code = 431) EOSINOPHILS RELATIVE PERCENT 0 % (BEAKER) (test code = 432) BASOPHILS RELATIVE PERCENT 0 % (BEAKER) (test code = 437) NEUTROPHILS ABSOLUTE COUNT 7.02 K/ L 1.56-6.13 H (BEAKER) (test code = 670) LYMPHOCYTES ABSOLUTE COUNT 0.89 K/ L 1.18-3.74 L (BEAKER) (test code = 414) MONOCYTES ABSOLUTE COUNT (BEAKER) 0.45 K/ L 0.24-0.36 H (test code = 415) EOSINOPHILS ABSOLUTE COUNT 0.00 K/ L 0.04-0.36 L (BEAKER) (test code = 416) BASOPHILS ABSOLUTE COUNT (BEAKER) 0.01 K/ L 0.01-0.08 (test code = 417) IMMATURE GRANULOCYTES-RELATIVE 0.40 % 0.00-1.00 PERCENT (BEAKER) (test code = 2801) LACTIC ACID, [id number] 03:53:27 Test Item Value Reference Range Interpretation Comments LACTATE BLOOD VENOUS (2) (BEAKER) 1.24 mmol/L 0.50-2.20 (test code = 2872) Rouge Mixer ID - ADMINLipid [id number] 11:37:00 Test Item Value Reference Range Interpretation Comments Cholesterol, total 123 mg/dL <=200 (test code = 2093-3) HDL cholesterol 45 mg/dL See_Comment L [Automated (test code = 2085-9) message ] The system which generated this result transmitted reference range : > OR = 50. The reference range was not used to interpret this result as normal/abnormal . Triglycerides (test 69 mg/dL <=150 code = 2571-8) LDL cholesterol 63 mg/dL (calc) Reference ra nge: calculated (test <100 Desira ble code = 29930-1) range <100 m g/dL for primary prevention; <70 mg/dL for patients with C HD or diabetic patients with > or = 2 CHD risk factors. LDL-C is now calculated using the Omar-Emma calculation, which is a validated novel method providin g better accuracy than the Friedewald equation in the estimation of LDL-C. Omar S S et al. KATIE. 2013;310(19): 1526-3376 (http://educati on .IQumulus .com/faq/UCS775 ) Cholesterol/HDL 2.7 See_Comment [Automated ratio (test code = message] The 9830-1) system which generated this result transmitted reference range : <5.0 (calc). Th e reference range was not used to interpret this result as normal/abnormal . Non-HDL cholesterol 78 See_Comment For ghassan ents with (test code = diabetes plus 1 31036-5) major ASCVD ris k factor, treatin g to a non-HDL-C goal of <100 mg/dL (LDL-C of <70 mg/dL) is considered a therapeutic option. [Automated message] The system which generated this result transmitted reference range : <130 mg/dL (calc). The reference range was not used to interpret this result as normal/abnormal . KRYSTINA (test code = FASTING:NO KRYSTINA) FASTING: NO RAC (test code = Performing RAC) Organization Information: Site ID: [facility] Name: [facility] Lab Address: [address] [place] [phone] Director: Reno Khalil Lab Interpretation Abnormal (test code = 83875-7) [facility] [id number] 11:37:00 Test Item Value Reference Range Interpretation Comments TSH (test 1.37 See_Comment [Automated mes aissatou] code = The system [employer] h 3016-3) generated this result transmit angelina reference range : 0.40 - 4.50 mIU /L. The reference r isabella was not used to interpret this result as normal/abnormal . KRYSTINA (test FASTING:NO FASTING: code = KRYSTINA) NO RAC (test Performing code = RAC) Organization Information: Site ID: [facility]: [facility] Lab Address: [address] [place] [phone] Director: Reno Khalil [facility] [id number] 11:37:00 Test Item Value Reference Range Interpretation Comments Cholesterol, total 123 mg/dL <=200 (test code = 2093-3) HDL cholesterol 45 mg/dL See_Comment L [Automated (test code = 2084-) message ] The system which generated this result transmitted reference range : > OR = 50. The reference range was not used to interpret this result as normal/abnormal . Triglycerides (test 69 mg/dL <=150 code = 2571-8) LDL cholesterol 63 mg/dL (calc) Reference ra nge: calculated (test <100 Desira ble code = 33909-0) range <100 m g/dL for primary prevention; <70 mg/dL for patients with C HD or diabetic patients with > or = 2 CHD risk factors. LDL-C is now calculated using the Omar-Emma calculation, which is a validated novel method providin g better accuracy than the Friedewald equation in the estimation of LDL-C. Omar S S et al. KATIE. 2013;310(19): 8645-4005 (http://educati on .[employer] GroupDiagn[employer] .com/faq/PIK083 ) Cholesterol/HDL 2.7 See_Comment [Automated ratio (test code = message] The 9830-1) system which generated this result transmitted reference range : <5.0 (calc). Th e reference range was not used to interpret this result as normal/abnormal . Non-HDL cholesterol 78 See_Comment For ghassan ents with (test code = diabetes plus 1 30312-3) major ASCVD ris k factor, treatin g to a non-HDL-C goal of <100 mg/dL (LDL-C of <70 mg/dL) is considered a therapeutic option. [Automated message] The system which generated this result transmitted reference range : <130 mg/dL (calc). The reference range was not used to interpret this result as normal/abnormal . KRYSTINA (test code = FASTING:NO KRYSTINA) FASTING: NO RAC (test code = Performing RAC) Organization Information: Site ID: [facility] Name: [facility] Lab Address: [address] [place] [phone] Director: Reno Khalil Lab Interpretation Abnormal (test code = 01097-8) [facility] [id number] 11:37:00 Test Item Value Reference Range Interpretation Comments TSH (test 1.37 See_Comment [Automated mes aissatou] code = The system ic h 3016-3) generated this result transmit angelina reference range : 0.40 - 4.50 mIU /L. The reference r isabella was not used to interpret this result as normal/abnormal . KRYSTINA (test FASTING:NO FASTING: code = KRYSTINA) NO RAC (test Performing code = RAC) Organization Information: Site ID: [facility] Name: [facility] Lab Address: [address] [place] [phone] Director: Reno Khalil [facility] HospitalLip[facility] [id number] 11:37:00 Test Item Value Reference Range Interpretation Comments Cholesterol, total 123 mg/dL <=200 (test code = 2093-3) HDL cholesterol 45 mg/dL See_Comment L [Automated (test code = 5-9) message ] The system which generated this result transmitted reference range : > OR = 50. The reference range was not used to interpret this result as normal/abnormal . Triglycerides (test 69 mg/dL <=150 code = 2571-8) LDL cholesterol 63 mg/dL (calc) Reference ra nge: calculated (test <100 Desira ble code = 99310-3) range <100 m g/dL for primary prevention; <70 mg/dL for patients with C HD or diabetic patients with > or = 2 CHD risk factors. LDL-C is now calculated using the Omar-Emma calculation, which is a validated novel method providin g better accuracy than the Friedewald equation in the estimation of LDL-C. Omar S S et al. KATIE. 2013;310(19): 1896-2423 (http://educati on .[employer] GroupDiagn[employer]ribut[employer] .com/faq/KKP830 ) Cholesterol/HDL 2.7 See_Comment [Automated ratio (test code = message] The 9830-1) system which generated this result transmitted reference range : <5.0 (calc). Th e reference range was not used to interpret this result as normal/abnormal . Non-HDL cholesterol 78 See_Comment For ghassan ents with (test code = diabetes plus 1 11374-7) major ASCVD ris k factor, treatin g to a non-HDL-C goal of <100 mg/dL (LDL-C of <70 mg/dL) is considered a therapeutic option. [Automated message] The system which generated this result transmitted reference range : <130 mg/dL (calc). The reference range was not used to interpret this result as normal/abnormal . KRYSTINA (test code = FASTING:NO KRYSTINA) FASTING: NO RAC (test code = Performing RAC) Organization Information: Site ID: [facility] Name: [facility] Lab Address: [address] [place] [address] Director: Reno Khalil Lab Interpretation Abnormal (test code = 08497-6) [facility] HospitalThy[facility] stimulating [id number] 11:37:00 Test Item Value Reference Range Interpretation Comments TSH (test 1.37 See_Comment [Automated mes aissatou] code = The system [facility] h 3016-3) generated this result transmit angelina reference range : 0.40 - 4.50 mIU /L. The reference r isabella was not used to interpret this result as normal/abnormal . KRYSTINA (test FASTING:NO FASTING: code = KRYSTINA) NO RAC (test Performing code = RAC) Organization Information: Site ID: [facility] Name: [facility] Lab Address: [address] [place] [phone] Director: Reno Khalil [facility] HospitalLip[facility] [id number] 11:37:00 Test Item Value Reference Range Interpretation Comments Cholesterol, total 123 mg/dL <=200 (test code = 2093-3) HDL cholesterol 45 mg/dL See_Comment L [Automated (test code = 2085-9) message ] The system which generated this result transmitted reference range : > OR = 50. The reference range was not used to interpret this result as normal/abnormal . Triglycerides (test 69 mg/dL <=150 code = 2571-8) LDL cholesterol 63 mg/dL (calc) Reference ra nge: calculated (test <100 Desira ble code = 17274-9) range <100 m g/dL for primary prevention; <70 mg/dL for patients with C HD or diabetic patients with > or = 2 CHD risk factors. LDL-C is now calculated using the Senait calculation, which is a validated novel method providin g better accuracy than the Friedewald equation in the estimation of LDL-C. Omar Wong S et al. KATIE. 2013;310(19): 1140-7518 (http://educati on .IQumulus .com/faq/ILV551 ) Cholesterol/HDL 2.7 See_Comment [Automated ratio (test code = message] The 9830-1) system which generated this result transmitted reference range : <5.0 (calc). Th e reference range was not used to interpret this result as normal/abnormal . Non-HDL cholesterol 78 See_Comment For ghassan ents with (test code = diabetes plus 1 27651-8) major ASCVD ris k factor, treatin g to a non-HDL-C goal of <100 mg/dL (LDL-C of <70 mg/dL) is considered a therapeutic option. [Automated message] The system which generated this result transmitted reference range : <130 mg/dL (calc). The reference range was not used to interpret this result as normal/abnormal . KRYSTINA (test code = FASTING:NO KRYSTINA) FASTING: NO RAC (test code = Performing RAC) Organization Information: Site ID: A Name: [facility] Lab Address: [address] [place] [address] Director: Reno Khalil Lab Interpretation Abnormal (test code = 03359-6) [facility]Th[facility] stimulating [id number] 11:37:00 Test Item Value Reference Range Interpretation Comments TSH (test 1.37 See_Comment [Automated mes aissatou] code = The system ic h 3016-3) generated this result transmit angelina reference range : 0.40 - 4.50 mIU /L. The reference r isabella was not used to interpret this result as normal/abnormal . KRYSTINA (test FASTING:NO FASTING: code = KRYSTINA) NO RAC (test Performing code = RAC) Organization Information: Site ID: [facility] Name: [facility] Lab Address: [address] [place] [phone] Director: Reno Khalil [facility] [id number] 11:37:00 Test Item Value Reference Range Interpretation Comments Cholesterol, total 123 mg/dL <=200 (test code = 2093-3) HDL cholesterol 45 mg/dL See_Comment L [Automated (test code = 2084-9) message ] The system which generated this result transmitted reference range : > OR = 50. The reference range was not used to interpret this result as normal/abnormal . Triglycerides (test 69 mg/dL <=150 code = 2571-8) LDL cholesterol 63 mg/dL (calc) Reference ra nge: calculated (test <100 Desira ble code = 30239-3) range <100 m g/dL for primary prevention; <70 mg/dL for patients with C HD or diabetic patients with > or = 2 CHD risk factors. LDL-C is now calculated using the Omar-Emma calculation, which is a validated novel method providin g better accuracy than the Friedewald equation in the estimation of LDL-C. Omar S S et al. KATIE. 2013;310(19): 4317-3893 (http://educati on .[employer] GroupDiagn[employer] .com/faq/LNG278 ) Cholesterol/HDL 2.7 See_Comment [Automated ratio (test code = message] The 9830-1) system which generated this result transmitted reference range : <5.0 (calc). Th e reference range was not used to interpret this result as normal/abnormal . Non-HDL cholesterol 78 See_Comment For ghassan ents with (test code = diabetes plus 1 28770-1) major ASCVD ris k factor, treatin g to a non-HDL-C goal of <100 mg/dL (LDL-C of <70 mg/dL) is considered a therapeutic option. [Automated message] The system which generated this result transmitted reference range : <130 mg/dL (calc). The reference range was not used to interpret this result as normal/abnormal . KRYSTINA (test code = FASTING:NO KRYSTINA) FASTING: NO RAC (test code = Performing RAC) Organization Information: Site ID: RGA Name: [facility] Address: [address] [place] [address] Director: Reno Khalil Lab Interpretation Abnormal (test code = 48988-9) [facility] stimulating [id number] 11:37:00 Test Item Value Reference Range Interpretation Comments TSH (test 1.37 See_Comment [Automated mes aissatou] code = The system ic h 3016-3) generated this result transmit angelina reference range : 0.40 - 4.50 mIU /L. The reference r isabella was not used to interpret this result as normal/abnormal . KRYSTINA (test FASTING:NO FASTING: code = KRYSTINA) NO RAC (test Performing code = RAC) Organization Information: Site ID: RGA [facility] Address: [address] [place] [address] Director: Reno Khalil [facility] HospitalLipid [id number] 11:37:00 Test Item Value Reference Range Interpretation Comments Cholesterol, total 123 mg/dL <=200 (test code = 2093-3) HDL cholesterol 45 mg/dL See_Comment L [Automated (test code = 5-9) message ] The system which generated this result transmitted reference range : > OR = 50. The reference range was not used to interpret this result as normal/abnormal . Triglycerides (test 69 mg/dL <=150 code = 2571-8) LDL cholesterol 63 mg/dL (calc) Reference ra nge: calculated (test <100 Desira ble code = 63358-2) range <100 m g/dL for primary prevention; <70 mg/dL for patients with C HD or diabetic patients with > or = 2 CHD risk factors. LDL-C is now calculated using the Omar-Emma calculation, which is a validated novel method providin g better accuracy than the Friedewald equation in the estimation of LDL-C. Omar S S et al. KATIE. 2013;310(19): 2993-8834 (http://educati on .[employer] .com/faq/DXC118 ) Cholesterol/HDL 2.7 See_Comment [Automated ratio (test code = message] The 9830-1) system which generated this result transmitted reference range : <5.0 (calc). Th e reference range was not used to interpret this result as normal/abnormal . Non-HDL cholesterol 78 See_Comment For ghassan ents with (test code = diabetes plus 1 28467-7) major ASCVD ris k factor, treatin g to a non-HDL-C goal of <100 mg/dL (LDL-C of <70 mg/dL) is considered a therapeutic option. [Automated message] The system which generated this result transmitted reference range : <130 mg/dL (calc). The reference range was not used to interpret this result as normal/abnormal . KRYSTINA (test code = FASTING:NO KRYSTINA) FASTING: NO RAC (test code = Performing RAC) Organization Information: Site ID: [facility] Address: [address] [place] [address] Director: Reno Khalil Lab Interpretation Abnormal (test code = 81090-7) [facility] HospitalThy[facility] stimulating [id number] 11:37:00 Test Item Value Reference Range Interpretation Comments TSH (test 1.37 See_Comment [Automated mes aissatou] code = The system ic h 3016-3) generated this result transmit angelina reference range : 0.40 - 4.50 mIU /L. The reference r isabella was not used to interpret this result as normal/abnormal . KRYSTINA (test FASTING:NO FASTING: code = KRYSTINA) NO RAC (test Performing code = RAC) Organization Information: Site ID: [facility]: [facility] Lab Address: [address] [place] [phone] Director: Reno Khalil [facility] HospitalLipid [id number] 11:37:00 Test Item Value Reference Range Interpretation Comments Cholesterol, total 123 mg/dL <=200 (test code = 2093-3) HDL cholesterol 45 mg/dL See_Comment L [Automated (test code = 2085-9) message ] The system which generated this result transmitted reference range : > OR = 50. The reference range was not used to interpret this result as normal/abnormal . Triglycerides (test 69 mg/dL <=150 code = 2571-8) LDL cholesterol 63 mg/dL (calc) Reference ra nge: calculated (test <100 Desira ble code = 45212-9) range <100 m g/dL for primary prevention; <70 mg/dL for patients with C HD or diabetic patients with > or = 2 CHD risk factors. LDL-C is now calculated using the Senait calculation, which is a validated novel method providin g better accuracy than the Friedewald equation in the estimation of LDL-C. Omar S S et al. KATIE. 2013;310(19): 2798-9700 (http://educati on .[employer]um[employer] .com/faq/TKS321 ) Cholesterol/HDL 2.7 See_Comment [Automated ratio (test code = message] The 9830-1) system which generated this result transmitted reference range : <5.0 (calc). Th e reference range was not used to interpret this result as normal/abnormal . Non-HDL cholesterol 78 See_Comment For ghassan ents with (test code = diabetes plus 1 77502-1) major ASCVD ris k factor, treatin g to a non-HDL-C goal of <100 mg/dL (LDL-C of <70 mg/dL) is considered a therapeutic option. [Automated message] The system which generated this result transmitted reference range : <130 mg/dL (calc). The reference range was not used to interpret this result as normal/abnormal . KRYSTINA (test code = FASTING:NO KRYSTINA) FASTING: NO RAC (test code = Performing RAC) Organization Information: Site ID: [facility] Name: [facility] Lab Address: [address] [place] [address] Director: Reno Khalil Lab Interpretation Abnormal (test code = 23198-0) [facility] HospitalThy[facility] stimulating [id number] 11:37:00 Test Item Value Reference Range Interpretation Comments TSH (test 1.37 See_Comment [Automated mes aissatou] code = The system ic h 3016-3) generated this result transmit angelina reference range : 0.40 - 4.50 mIU /L. The reference r isabella was not used to interpret this result as normal/abnormal . KRYSTINA (test FASTING:NO FASTING: code = KRYSTINA) NO RAC (test Performing code = RAC) Organization Information: Site ID: [facility] Lab Address: [address] [place] [phone] Director: Reno Khalil [facility] HospitalLipid [id number] 11:37:00 Test Item Value Reference Range Interpretation Comments Cholesterol, total 123 mg/dL <=200 (test code = 2093-3) HDL cholesterol 45 mg/dL See_Comment L [Automated (test code = 2084-12) message ] The system which generated this result transmitted reference range : > OR = 50. The reference range was not used to interpret this result as normal/abnormal . Triglycerides (test 69 mg/dL <=150 code = 2571-8) LDL cholesterol 63 mg/dL (calc) Reference ra nge: calculated (test <100 Desira ble code = 76946-5) range <100 m g/dL for primary prevention; <70 mg/dL for patients with C HD or diabetic patients with > or = 2 CHD risk factors. LDL-C is now calculated using the Omar-Emma calculation, which is a validated novel method providin g better accuracy than the Friedewald equation in the estimation of LDL-C. Omar S S et al. KATIE. 2013;310(19): 4694-1915 (http://educati on .[employer]umulus .com/faq/ZFP927 ) Cholesterol/HDL 2.7 See_Comment [Automated ratio (test code = message] The 9830-1) system which generated this result transmitted reference range : <5.0 (calc). Th e reference range was not used to interpret this result as normal/abnormal . Non-HDL cholesterol 78 See_Comment For ghassan ents with (test code = diabetes plus 1 22536-5) major ASCVD ris k factor, treatin g to a non-HDL-C goal of <100 mg/dL (LDL-C of <70 mg/dL) is considered a therapeutic option. [Automated message] The system which generated this result transmitted reference range : <130 mg/dL (calc). The reference range was not used to interpret this result as normal/abnormal . KRYSTINA (test code = FASTING:NO KRYSTINA) FASTING: NO RAC (test code = Performing RAC) Organization Information: Site ID: RGA Name: [facility] Lab Address: [address] [place] [address] Director: Reno Khalil Lab Interpretation Abnormal (test code = 07169-2) [facility] HospitalThy[facility] stimulating [id number] 11:37:00 Test Item Value Reference Range Interpretation Comments TSH (test 1.37 See_Comment [Automated mes aissatou] code = The system [facility] h 3016-3) generated this result transmit angelina reference range : 0.40 - 4.50 mIU /L. The reference r isabella was not used to interpret this result as normal/abnormal . KRYSTINA (test FASTING:NO FASTING: code = KRYSTINA) NO RAC (test Performing code = RAC) Organization Information: Site ID: BABATUNDE Name: [facility] Lab Address: [address] [place] [phone] Director: Reno Khalil [address]2022-11-30 21:26:10 Test Item Value Reference Range Interpretation [...] QRS 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 Electronic ventricular pacemaker- [address]2022-11-30 21:26:10 Test Item Value Reference Range Interpretation [...] QRS 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 Electronic ventricular pacemaker- [address]2022-11-30 21:26:10 Test Item Value Reference Range Interpretation [...] QRS 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 Electronic ventricular pacemaker- [address]2022-11-30 21:26:10 Test Item Value Reference Range Interpretation [...] QRS 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 Electronic ventricular pacemaker- [address]2022-11-30 21:26:10 Test Item Value Reference Range Interpretation [...] QRS 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 Electronic ventricular pacemaker- [address]2022-11-30 21:26:10 Test Item Value Reference Range Interpretation [...] QRS 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 Electronic ventricular pacemaker- [address]2022-11-30 21:26:10 Test Item Value Reference Range Interpretation [...] QRS 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 Electronic ventricular pacemaker- [address]2022-11-30 21:26:10 Test Item Value Reference Range Interpretation [...] QRS 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 Electronic ventricular pacemaker- [facility] HospitalUrine protein/creatinine ratio, [id number] 18:59:00 Test Item Value Reference Range Interpretation Comments Creatinine, TNP mg/dL TEST NOT PERFOR MED No urine suitable specim en (mg/dL) received.Please review (test code = the testrequire ments at 2161-8) testdirectory.q Buggl RAC (test Performing code = RAC) Organization Information: Site ID: TAMARAA Name: [facility] Lab Address: [address] [place] [phone] Director: Reno Khalil Scientologist [facility] HospitalsCyclic citrullinated peptide antibody, [id number] 18:59:00 Test Item Value Reference Range Interpretation Comments Cyclic citrullin <16 UNITS Reference peptide Ab (test RangeNegati ve: code = 17986-7) <20Weak Posi tive: 20-39Moderate Positive: 40-59Strong Positive: >59 RAC (test code = Performing RAC) Organization Information: Site ID: IG Name: [facility] Lab Address: [address] [place] [address] Director: Dr. Reno Mclean [facility] HospitalsUrinalysis screen and microscopy, with reflex to culture 2021-11-03 18:59:00 Test Item Value Reference Range Interpretation Comments Color, UA TNP TEST NOT PERFOR MED (test code = No urine receiv ed. 5778-6) RAC (test code Performing = RAC) Organization Information: Site ID: RGA [facility]: [facility] Lab Address: [address] [place] [phone] Director: Reno Mclena [facility] HospitalsRibonucleoprotein antibody (AIR CONDITIONING MECHANIC INDUSTRIAL antibody)2021-11-03 18:59:00 Test Item Value Reference Range Interpretation Comments Ribonucleic <1.0 NEG See_Comment [Automated antibody (AIR CONDITIONING MECHANIC INDUSTRIAL) message] The (test code = system which 54490-2) generated this result transmitted reference range : <1.0 NEG AI. Th e reference range was not used to interpret this result as normal/abnormal . RAC (test code = Performing RAC) Organization Information: Site ID: IG [facility]: [facility] Address: [address] [place] [address] Director: Dr. Reno Khalil Scientologist [facility] [id number] 18:59:00 Test Item Value Reference Range Interpretation Comments Perales antibody <1.0 NEG See_Comment [Automated (test code = message] The 64350-5) system which generated this result transmit angelina reference range : <1.0 NEG AI. Th e reference range was not used to interpret this result as normal/abnormal . RAC (test code = Performing RAC) Organization Information: Site ID: IG Name: [facility] Address: [address] [place] [address] Director: Dr. Reno Khalil [facility] HospitalBeta-2 glycoprotein 1 antibodies (IgG, IgA, IgM)2021-11-03 18:59:00 Test Item Value Reference Interpretation Comments Range Beta-2 <2.0 U/mL Value glycoprotein 1 Interpretatio n----- antibody, IgG <20.0 (test code = Antibody not de tected> 08177-7) or = 20.0 Antib cinda detected Beta-2 <2.0 U/mL Value glycoprotein 1 Interpretatio n----- antibody, IgM <20.0 (test code = Antibody not de tected> 10135-6) or = 20.0 Antib cinda detected Beta-2 <2.0 U/mL The antiphospho lipid glycoprotein 1 antibody synd ilana (APS) antibody, IgA is aclinical-p athologic (test code = correlation cinthia t 11011-0) includes a clin icalevent (e.g. arterial or [...] For additional information, pl ease refer tohttp://educat ion.[employer] [employer].TuneIn /faq/FAQ1 09(This link is being provided for informational/e ducationa lpurposes only. ) Value Interpretation- ---- < 20.0 Antibody not detected> or = 20.0 Antibody detect ed RAC (test code = Performing RAC) Organization Information: Site ID: EZ Name: [facility], Address: [address] [place] [address] Director: Flakita Hill MD,PhD,CATHERINE [facility] HospitalDirect antiglobulin test (STEPHANY)2021-11-03 18:59:00 Test Item Value Reference Range Interpretation Comments Direct antiglobulin NEGATIVE NEGATIVE test (STEPHANY) (test code = 1007-4) RAC (test code = RAC) Performing Organization Information: Site ID: IG [facility]: [facility] Lab Address: [address] [place] [phone] Director: Dr. Reno Khalil [facility] Hospitaler[facility] [id number] 18:59:00 Test Item Value Reference Interpretation Comments Range Protein (test code 8.0 g/dL 6.1-8.1 = 2885-2) Albumin, S (test 3.9 g/dL 3.8-4.8 code = 2862-1) Kpmpy-9-qoyrrjep 0.4 g/dL 0.2-0.3 H (test code = 2865-4) Hrtlx-4-cymwvhrh 0.9 g/dL 0.5-0.9 (test code = 2868-8) Beta-1 globulin 0.5 g/dL 0.4-0.6 (test code = 11680-0) Beta-2 globulin 0.6 g/dL 0.2-0.5 H (test code = 77335-9) Gamma globulin 1.7 g/dL 0.8-1.7 (test code = 2874-6) Interpretation Electrophore tic (test code = [place] 02124-5) isolated elevat ion of beta-2 globulin s. This pattern is sugg estive of acute inflam mation; however, the pr esence of a monoclonal protein cannot be ruled out. Cons ider serumimmunofixa tion to rule out monocl onal protein (if not already ordered ). Alpha-1 globuli n increase noted. RAC (test code = Performing RAC) Organization Information: Site ID: IG [facility]: [facility] Address: [address] [place] [address] Director: Dr. Reno Khalil Lab Interpretation Abnormal (test code = 22328-7) [facility] HospitalComplement activity, [id number] 18:59:00 Test Item Value Reference Range Interpretation Comments Complement activity, >60 31-60 H total (test code = 4532-8) RAC (test code = RAC) Performing Organization Information: Site ID: EZ Name: [facility], Address: [address] [place] [address] Director: Flakita Hill MD,PhD,CATHERINE Lab Interpretation (test Abnormal code = 30083-5) [facility]ologistTr[facility]as HospitalRheumatoid [id number] 18:59:00 Test Item Value Reference Range Interpretation Comments Rheumatoid factor <14 See_Comment [Automate d (test code = message] The 08693-9) system which generated this result transmit angelina reference range : <14 IU/mL. The reference range was not used to interpret this result as normal/abnormal . RAC (test code = Performing RAC) Organization Information: Site ID: RGA [facility]: [facility] Lab Address: [address] [place] [address] Director: Reno Khalil [facility] HospitalCardiolipin [id number] 18:59:00 Test Item Value Reference Interpretation Comments Range Cardiolipin IgA <2.0 APL-U/mL Value Interp retation----- (test code = < 20.0 5076-5) Antibody not de tected> or = 20.0 Antibody d etected Cardiolipin IgG <2.0 GPL-U/mL Value Interp retation----- (test code = < 20.0 3181-5) Antibody [...] sury tional information, pl ease refer tohttp://educat ion.[employer].TuneIn/fa q/MXV536(Thi s link is being provided for informational/e ducational purposes only.) RAC (test code Performing = RAC) Organization Information: Site ID: IG Name: [facility] Lab Address: [address] [place] [address] ANN Rodrigues [address] Director: Dr. Reno Khalil [facility] anticoagulant [id number] 18:59:00 Test Item Value Reference Interpretation Comments Range Lupus anticoagulant SEE NOTE NOT DETECTED A Lupus (test code = Anticoagulant [place] s 32969-7) NOT DETECTED. T his interpretation is basedon the following test results: PTT lupus 33 See_Comment For more anticoagulant (test informat ion on this code = 96313-6) test, go to:http://gregoria matamoros .QR Artistdiagnosti cs.c om/faq/HXU84i7( This link is being provided for informational/e duca tionalpurposes only.) [Automat ed message] The sy stem which generated this result transmitted reference [...] RAC) Organization Information: Site ID: EZ Name: [facility]/Heidi wong [facility], Address: [address] [place] [address] Director: Flakita Hill MD,PhD,CATHERINE [facility] HospitalVitamin D 25 hydroxy [id number] 18:59:00 Test Item Value Reference Range Interpretation [...] 1 For additional information, please refer to http://educmaycoo n.Q uestDiagnostics .co m/faq/WSZ752 (T his link is being provided for informational/e nate ational purpose s only.) RAC (test code = Performing RAC) Organization Information: Site ID: RGA Name: [facility] Lab Address: [address] [place] [address] Director: Reno BarberUrine protein/creatinine ratio, [id number] 18:59:00 Test Item Value Reference Range Interpretation Comments Creatinine, TNP mg/dL TEST NOT PERFOR MED No urine suitable specim en (mg/dL) received.Please review (test code = the testrequire ments at 2161-8) testdirectory.q Buggl RAC (test Performing code = RAC) Organization Information: Site ID: RGA Name: [facility] Lab Address: [address] [place] [address] Director: Reno Khalil Scientologist [facility] HospitalsCyclic citrullinated peptide antibody, [id number] 18:59:00 Test Item Value Reference Range Interpretation Comments Cyclic citrullin <16 UNITS Reference peptide Ab (test RangeNegati ve: code = 11682-6) <20Weak Posi tive: 20-39Moderate Positive: 40-59Strong Positive: >59 RAC (test code = Performing RAC) Organization Information: Site ID: IG [facility]: [facility] Lab Address: [address] [place] [address] Director: Dr. Reno Mclean [facility] HospitalsUrinalysis screen and microscopy, with reflex to culture 2021-11-03 18:59:00 Test Item Value Reference Range Interpretation Comments Color, UA TNP TEST NOT PERFOR MED (test code = No urine receiv ed. 5778-6) RAC (test code Performing = RAC) Organization Information: Site ID: RGA [facility]: [facility] Lab Address: [address] [place] [address] Director: Reno Mclean [facility] HospitalsRibonucleoprotein antibody (AIR CONDITIONING MECHANIC INDUSTRIAL antibody)2021-11-03 18:59:00 Test Item Value Reference Range Interpretation Comments Ribonucleic <1.0 NEG See_Comment [Automated antibody (AIR CONDITIONING MECHANIC INDUSTRIAL) message] The (test code = system which 74912-4) generated this result transmitted reference range : <1.0 NEG AI. Th e reference range was not used to interpret this result as normal/abnormal . RAC (test code = Performing RAC) Organization Information: Site ID: IG [facility]: [facility] Lab Address: [address] [place] [address] Director: Dr. Reno Mclean [facility] [id number] 18:59:00 Test Item Value Reference Range Interpretation Comments Perales antibody <1.0 NEG See_Comment [Automated (test code = message] The 22289-2) system which generated this result transmit angelina reference range : <1.0 NEG AI. Th e reference range was not used to interpret this result as normal/abnormal . RAC (test code = Performing RAC) Organization Information: Site ID: IG [facility]: [facility] Address: [address] [place] [address] Director: Dr. Reno Khalil Scientologist [facility] HospitalsBeta-2 glycoprotein 1 antibodies (IgG, IgA, IgM)2021-11-03 18:59:00 Test Item Value Reference Interpretation Comments Range Beta-2 <2.0 U/mL Value glycoprotein 1 Interpretatio n----- antibody, IgG <20.0 (test code = Antibody not de tected> 40602-2) or = 20.0 Antib cinda detected Beta-2 <2.0 U/mL Value glycoprotein 1 Interpretatio n----- antibody, IgM <20.0 (test code = Antibody not de tected> 85667-1) or = 20.0 Antib cinda detected Beta-2 <2.0 U/mL The antiphospho lipid glycoprotein 1 antibody synd ilana (APS) antibody, IgA is aclinical-p athologic (test code = correlation [facility] t 73881-0) includes a clin icalevent (e.g. arterial or [...] For additional information, pl ease refer tohttp://educat ion.[employer] [employer].TuneIn /faq/FAQ1 09(This link is being provided for informational/e ducationa lpurposes only. ) Value Interpretation- ---- < 20.0 Antibody not detected> or = 20.0 Antibody detect ed RAC (test code = Performing RAC) Organization Information: Site ID: EZ Name: [facility], Address: [address] [place] [address] Director: Flakita Hill MD,PhD,CATHERINE [facility] HospitalDirect antiglobulin test (STEPHANY)2021-11-03 18:59:00 Test Item Value Reference Range Interpretation Comments Direct antiglobulin NEGATIVE NEGATIVE test (STEPHANY) (test code = 1007-4) RAC (test code = RAC) Performing Organization Information: Site ID: IG [facility]: [facility] Lab Address: [address] [place] [address] Director: Dr. Reno Khalil [facility] Hospitalerum [id number] 18:59:00 Test Item Value Reference Interpretation Comments Range Protein (test code 8.0 g/dL 6.1-8.1 = 2885-2) Albumin, S (test 3.9 g/dL 3.8-4.8 code = 2862-1) Ohcxg-5-tcoilvcg 0.4 g/dL 0.2-0.3 H (test code = 2865-4) Yqscr-8-fhhqrwnc 0.9 g/dL 0.5-0.9 (test code = 2868-8) Beta-1 globulin 0.5 g/dL 0.4-0.6 (test code = 11638-3) Beta-2 globulin 0.6 g/dL 0.2-0.5 H (test code = 24502-9) Gamma globulin 1.7 g/dL 0.8-1.7 (test code = 2874-6) Interpretation Electrophore tic (test code = [place] 46377-7) isolated elevat ion of beta-2 globulin s. This pattern is sugg estive of acute inflam mation; however, the pr esence of a monoclonal protein cannot be ruled out. Cons ider serumimmunofixa tion to rule out monocl onal protein (if not already ordered ). Alpha-1 globuli n increase noted. RAC (test code = Performing RAC) Organization Information: Site ID: IG [facility]: [facility] Address: [address] [place] [address] Director: Dr. Reno Khalil Lab Interpretation Abnormal (test code = 17599-3) [facility] HospitalComplement activity, [id number] 18:59:00 Test Item Value Reference Range Interpretation Comments Complement activity, >60 31-60 H total (test code = 4532-8) RAC (test code = RAC) Performing Organization Information: Site ID: EZ Name: [facility], Address: [address] [place] [address] Director: Flakita Hill MD,PhD,CATHERINE Lab Interpretation (test Abnormal code = 10158-2) [facility] HospitalRheumatoid [id number] 18:59:00 Test Item Value Reference Range Interpretation Comments Rheumatoid factor <14 See_Comment [Automate d (test code = message] The 40700-4) system which generated this result transmit angelina reference range : <14 IU/mL. The reference range was not used to interpret this result as normal/abnormal . RAC (test code = Performing RAC) Organization Information: Site ID: RGA [facility]: [facility] Address: [address] [place] [address] Director: Reno Khalil [facility] HospitalCardiolipin [id number] 18:59:00 Test Item Value Reference Interpretation Comments Range Cardiolipin IgA <2.0 APL-U/mL Value Interp retation----- (test code = < 20.0 5076-5) Antibody not de tected> or = 20.0 Antibody d etected Cardiolipin IgG <2.0 GPL-U/mL Value Interp retation----- (test code = < 20.0 3181-5) Antibody [...] sury tional information, pl ease refer tohttp://educat [facility].Youxiduo/fa q/SAF888(Thi s link is being provided for informational/e ducational purposes only.) RAC (test code Performing = RAC) Organization Information: Site ID: IG Name: [facility] Address: [address] [place] [address] Director: Dr. Reno Khalil [facility] anticoagulant [id number] 18:59:00 Test Item Value Reference Interpretation Comments Range Lupus anticoagulant SEE NOTE NOT DETECTED A Lupus (test code = Anticoagulant i s 06499-8) NOT DETECTED. T his interpretation is basedon the following test results: PTT lupus 33 See_Comment For more anticoagulant (test informat ion on this code = 55246-5) test, go to:http://educa tion .Seven Media Productions Grouposti cs.c om/faq/WQU15c4( This link is being provided for informational/e duca tionalpurposes only.) [Automat ed message] The sy stem which generated this result transmitted reference [...] RAC) Organization Information: Site ID: EZ Name: [facility], Address: [address] [place] [address] Director: Flakita Hill MD,PhD,[facility] CenterVitamin D 25 hydroxy [id number] 18:59:00 Test Item Value Reference Range Interpretation [...] please refer to http://educatio n.Q uestDiagnostics .co m/faq/KSS062 (T his link is being provided for informational/e nate ational purpose s only.) RAC (test code = Performing RAC) Organization Information: Site ID: RGA [facility]: [facility] Address: [address] [place] [address] Director: Reno Khalil [facility] HospitalUrine protein/creatinine ratio, [id number] 18:59:00 Test Item Value Reference Range Interpretation Comments Creatinine, TNP mg/dL TEST NOT PERFOR MED No urine suitable specim en (mg/dL) received.Please review (test code = the testrequire ments at 2161-8) testdirectory.q Buggl RAC (test Performing code = RAC) Organization Information: Site ID: [facility] Name: [facility] Lab Address: [address] [place] [address] Director: Reno Mclean [facility] HospitalsCycl citrullinated peptide antibody, [id number] 18:59:00 Test Item Value Reference Range Interpretation Comments Cyclic citrullin <16 UNITS Reference peptide Ab (test RangeNegati ve: code = 92317-8) <20Weak Posi tive: 20-39Moderate Positive: 40-59Strong Positive: >59 RAC (test code = Performing RAC) Organization Information: Site ID: IG Name: [facility] Lab Address: [address] [place] [address] Director: Dr. Reno Mclean HospitalUrinalysis screen and microscopy, with reflex to culture 2021-11-03 18:59:00 Test Item Value Reference Range Interpretation Comments Color, UA TNP TEST NOT PERFOR MED (test code = No urine receiv ed. 5778-6) RAC (test code Performing = RAC) Organization Information: Site ID: [facility] Name: [facility] Lab Address: [address] [place] [address] Director: Reno Mclean [facility] HospitalsRibonucleoprotein antibody (AIR CONDITIONING MECHANIC INDUSTRIAL antibody)2021-11-03 18:59:00 Test Item Value Reference Range Interpretation Comments Ribonucleic <1.0 NEG See_Comment [Automated antibody (AIR CONDITIONING MECHANIC INDUSTRIAL) message] The (test code = system which 15991-7) generated this result transmitted reference range : <1.0 NEG AI. Th e reference range was not used to interpret this result as normal/abnormal . RAC (test code = Performing RAC) Organization Information: Site ID: IG Name: [facility] Lab Address: [address] [place] [address] Director: Dr. Reno Mclean [facility] [id number] 18:59:00 Test Item Value Reference Range Interpretation Comments Perales antibody <1.0 NEG See_Comment [Automated (test code = message] The 39557-8) system which generated this result transmit angelina reference range : <1.0 NEG AI. Th e reference range was not used to interpret this result as normal/abnormal . RAC (test code = Performing RAC) Organization Information: Site ID: IG [facility]: [facility] Address: [address] [place] [address], [place] [address] Director: Dr. Reno Khalil [facility] HospitalBeta-2 glycoprotein 1 antibodies (IgG, IgA, IgM)2021-11-03 18:59:00 Test Item Value Reference Interpretation Comments Range Beta-2 <2.0 U/mL Value glycoprotein 1 Interpretatio n----- antibody, IgG <20.0 (test code = Antibody not de tected> 80828-8) or = 20.0 Antib cinda detected Beta-2 <2.0 U/mL Value glycoprotein 1 Interpretatio n----- antibody, IgM <20.0 (test code = Antibody not de tected> 67733-6) or = 20.0 Antib cinda detected Beta-2 <2.0 U/mL The antiphospho lipid glycoprotein 1 antibody synd ilana (APS) antibody, IgA is aclinical-p athologic (test code = correlation cinthia t 95368-1) includes a clin icalevent (e.g. arterial or [...] For additional information, pl ease refer tohttp://educat ion.[employer].com /faq/FAQ1 09(This link is being provided for informational/e ducationa lpurposes only. ) Value Interpretation- ---- < 20.0 Antibody not detected> or = 20.0 Antibody detect ed RAC (test code = Performing RAC) Organization Information: Site ID: EZ Name: [facility], Address: [address] [place] [address] Director: Flakita Hill MD,PhD,CATHERINE [facility] HospitalDirect antiglobulin test (STEPHANY)2021-11-03 18:59:00 Test Item Value Reference Range Interpretation Comments Direct antiglobulin NEGATIVE NEGATIVE test (STEPHANY) (test code = 1007-4) RAC (test code = RAC) Performing Organization Information: Site ID: IG Name: [facility] Address: [address] [place] [address] Director: Dr. Reno Khalil [facility] Hospital[facility] [id number] 18:59:00 Test Item Value Reference Interpretation Comments Range Protein (test code 8.0 g/dL 6.1-8.1 = 2885-2) Albumin, S (test 3.9 g/dL 3.8-4.8 code = 2862-1) Ohmhc-0-rqpndaxp 0.4 g/dL 0.2-0.3 H (test code = 2865-4) Xytoo-5-xrlextsn 0.9 g/dL 0.5-0.9 (test code = 2868-8) Beta-1 globulin 0.5 g/dL 0.4-0.6 (test code = 78548-3) Beta-2 globulin 0.6 g/dL 0.2-0.5 H (test code = 51691-6) Gamma globulin 1.7 g/dL 0.8-1.7 (test code = 2874-6) Interpretation Electrophore tic (test code = [place] [address]-0) isolated elevat ion of beta-2 globulin s. This pattern is sugg estive of acute inflam mation; however, the pr esence of a monoclonal protein cannot be ruled out. Cons ider serumimmunofixa tion to rule out monocl onal protein (if not already ordered ). Alpha-1 globuli n increase noted. RAC (test code = Performing RAC) Organization Information: Site ID: IG [facility]: [facility] Address: [address] [place] [address] Director: Dr. Reno Khalil Lab Interpretation Abnormal (test code = 15052-0) Scient[facility] HospitalComplement activity, [id number] 18:59:00 Test Item Value Reference Range Interpretation Comments Complement activity, >60 31-60 H total (test code = 4532-8) RAC (test code = RAC) Performing Organization Information: Site ID: EZ Name: [facility], Address: [address] [place] [address] Director: Flakita Hill MD,PhD,CATHERINE Lab Interpretation (test Abnormal code = 68448-5) [facility] HospitalRheumatoid [id number] 18:59:00 Test Item Value Reference Range Interpretation Comments Rheumatoid factor <14 See_Comment [Automate d (test code = message] The 91004-7) system which generated this result transmit angelina reference range : <14 IU/mL. The reference range was not used to interpret this result as normal/abnormal . RAC (test code = Performing RAC) Organization Information: Site ID: RGA [facility]: [facility] Address: [address] [place] [address] Director: Reno Khalil [facility] HospitalCardiolipin [id number] 18:59:00 Test Item Value Reference Interpretation Comments Range Cardiolipin IgA <2.0 APL-U/mL Value Interp retation----- (test code = < 20.0 5076-5) Antibody not de tected> or = 20.0 Antibody d etected Cardiolipin IgG <2.0 GPL-U/mL Value Interp retation----- (test code = < 20.0 3181-5) Antibody [...] y persistence.The Systemic Lupus Internati onal Collaborating Sai shelley immunological classification criteria for systemic lupus erythematosus ( SLE) include testing forisot ype IgA, which has yet t o be incorporated in toAPS criteria. Low l evel antiphospholipi d antibodiesmay s ometimes be detected in the setting of infection,drug therapy or aging. For sury tional information, pl ease refer tohttp://educat [facility].Youxiduo/fa q/UVE486(Thi s link is being provided for informational/e ducational purposes only.) RAC (test code Performing = RAC) Organization Information: Site ID: IG Name: [facility] Address: [address] [place] [address] Director: Dr. Reno Khalil [facility] anticoagulant [id number] 18:59:00 Test Item Value Reference Interpretation Comments Range Lupus anticoagulant SEE NOTE NOT DETECTED A Lupus (test code = Anticoagulant i s 69103-9) NOT DETECTED. T his interpretation is basedon the following test results: PTT lupus 33 See_Comment For more anticoagulant (test informat ion on this code = 17043-5) test, go to:http://educa tion .QR Artistdiagnosti cs.c om/faq/TDC60c8( This link is being provided for informational/e duca tionalpurposes only.) [Automat ed message] The [employer] stem which generated this result transmitted reference [...] RAC) Organization Information: Site ID: EZ Name: [facility], Address: [address] [place] [address] Director: Flakita Hill MD,PhD,CATHERINE [facility] HospitalVitamin D 25 hydroxy [id number] 18:59:00 Test Item Value Reference Range Interpretation Comments Vitamin D, 98 ng/mL 30-100 Vitamin D Statu s 25-hydroxy (test 25-OH Vitam in D: code = 1989-3) Deficiency: <20 ng/mLInsufficie ncy : 20 - 29 ng/mLOptimal: [...] please refer to http://educatio n.Q uestDiagnostics .co m/faq/LZI977 (T his link is being provided for informational/e nate ational purpose s only.) RAC (test code = Performing RAC) Organization Information: Site ID: RGA [facility]: [facility] Address: [address] [place] [address] Director: Reno Khalil [facility] HospitalUrine protein/creatinine ratio, [id number] 18:59:00 Test Item Value Reference Range Interpretation Comments Creatinine, TNP mg/dL TEST NOT PERFOR MED No urine suitable specim en (mg/dL) received.Please review (test code = the testrequire ments at 2166-8) testdirectory.q uestdiUmweltech RAC (test Performing code = RAC) Organization Information: Site ID: RGA Name: [facility] Lab Address: [address] [place], [place] [address] Director: Reno Mclean [facility] HospitalsCyclic citrullinated peptide antibody, [id number] 18:59:00 Test Item Value Reference Range Interpretation Comments Cyclic citrullin <16 UNITS Reference peptide Ab (test RangeNegati ve: code = 53938-4) <20Weak Posi tive: 20-39Moderate Positive: 40-59Strong Positive: >59 RAC (test code = Performing RAC) Organization Information: Site ID: IG Name: [facility] Lab Address: [address] [place] [address] Director: Dr. Reno Mclean [facility] HospitalsUrinalysis screen and microscopy, with reflex to culture 2021-11-03 18:59:00 Test Item Value Reference Range Interpretation Comments Color, UA TNP TEST NOT PERFOR MED (test code = No urine receiv ed. 5778-6) RAC (test code Performing = RAC) Organization Information: Site ID: RGA Name: [facility] Lab Address: [address] [place] [address] Director: Reno Mlcean [facility] HospitalsRibonucleoprotein antibody (AIR CONDITIONING MECHANIC INDUSTRIAL antibody)2021-11-03 18:59:00 Test Item Value Reference Range Interpretation Comments Ribonucleic <1.0 NEG See_Comment [Automated antibody (AIR CONDITIONING MECHANIC INDUSTRIAL) message] The (test code = system which 06902-8) generated this result transmitted reference range : <1.0 NEG AI. Th e reference range was not used to interpret this result as normal/abnormal . RAC (test code = Performing RAC) Organization Information: Site ID: IG Name: [facility] Address: [address] [place] [address] Director: Dr. Reno Mclean [facility] [id number] 18:59:00 Test Item Value Reference Range Interpretation Comments Perales antibody <1.0 NEG See_Comment [Automated (test code = message] The 89717-4) system which generated this result transmit angelina reference range : <1.0 NEG AI. Th e reference range was not used to interpret this result as normal/abnormal . RAC (test code = Performing RAC) Organization Information: Site ID: IG [facility]: [facility] Address: [address] [facility] [place], [place] [address] Director: Dr. Reno Khalil [facility] HospitalBeta-2 glycoprotein 1 antibodies (IgG, IgA, IgM)2021-11-03 18:59:00 Test Item Value Reference Interpretation Comments Range Beta-2 <2.0 U/mL Value glycoprotein 1 Interpretatio n----- antibody, IgG <20.0 (test code = Antibody not de tected> 21897-4) or = 20.0 Antib cinda detected Beta-2 <2.0 U/mL Value glycoprotein 1 Interpretatio n----- antibody, IgM <20.0 (test code = Antibody not de tected> 20010-5) or = 20.0 Anti body detected Beta-2 <2.0 U/mL The antiphospho lipid glycoprotein 1 antibody synd ilana (APS) antibody, IgA is aclinical-p athologic (test code = correlation cinthia t 09464-8) includes a clin icalevent (e.g. arterial or [...] For additional information, pl ease refer tohttp://educat ion.[employer].com /faq/FAQ1 09(This link is being provided for informational/e ducationa lpurposes only. ) Value Interpretation- ---- < 20.0 Antibody not detected> or = 20.0 Antibody detect ed RAC (test code = Performing RAC) Organization Information: Site ID: EZ Name: [facility], Address: [address] [place] [address] Director: Flakita Hill MD,PhD,CATHERINE [facility]ct antiglobulin test (STEPHANY)2021-11-03 18:59:00 Test Item Value Reference Range Interpretation Comments Direct antiglobulin NEGATIVE NEGATIVE test (STEPHANY) (test code = 1007-4) RAC (test code = RAC) Performing Organization Information: Site ID: IG [facility]: [facility] Address: [address] [place] [address], [place] [address] Director: Dr. Reno Khalil [facility] Hospitalerum [id number] 18:59:00 Test Item Value Reference Interpretation Comments Range Protein (test code 8.0 g/dL 6.1-8.1 = 2885-2) Albumin, S (test 3.9 g/dL 3.8-4.8 code = 2862-1) Mcezz-2-vohsipdd 0.4 g/dL 0.2-0.3 H (test code = 2865-4) Fbzmv-4-eaangvog 0.9 g/dL 0.5-0.9 (test code = 2868-8) Beta-1 globulin 0.5 g/dL 0.4-0.6 (test code = 69570-1) Beta-2 globulin 0.6 g/dL 0.2-0.5 H (test code = 37645-0) Gamma globulin 1.7 g/dL 0.8-1.7 (test code = 2874-6) Interpretation Electrophore tic (test code = [place] [address]1298-7) isolated elevat ion of beta-2 globulin s. This pattern is sugg estive of acute inflam mation; however, the pr esence of a monoclonal protein cannot be ruled out. Cons ider serumimmunofixa tion to rule out monocl onal protein (if not already ordered ). Alpha-1 globuli n increase noted. RAC (test code = Performing RAC) Organization Information: Site ID: IG [facility]: [facility] Address: [address] [place] [address] Director: Dr. Reno Khalil Lab Interpretation Abnormal (test code = 94263-4) [facility] HospitalComplement activity, [id number] 18:59:00 Test Item Value Reference Range Interpretation Comments Complement activity, >60 31-60 H total (test code = 4532-8) RAC (test code = RAC) Performing Organization Information: Site ID: EZ Name: [facility], Address: [address] [place] [address] Director: Flakita Hill MD,PhD,CATHERINE Lab Interpretation (test Abnormal code = 97299-7) [facility] HospitalRheumatoid [id number] 18:59:00 Test Item Value Reference Range Interpretation Comments Rheumatoid factor <14 See_Comment [Automate d (test code = message] The 50388-9Remerge system which generated this result transmit angelina reference range : <14 IU/mL. The reference range was not used to interpret this result as normal/abnormal . RAC (test code = Performing RAC) Organization Information: Site ID: RGA [facility]: [facility] Address: [address] [place] [address] Director: Reno Khalil [facility] HospitalCardiolipin [id number] 18:59:00 Test Item Value Reference Interpretation Comments Range Cardiolipin IgA <2.0 APL-U/mL Value Interp retation----- (test code = < 20.0 5076-5) Antibody not de tected> or = 20.0 Antibody d etected Cardiolipin IgG <2.0 GPL-U/mL Value Interp retation----- (test code = < 20.0 3181-5) Antibody [...] sury tional information, pl ease refer tohttp://educat ion.Youxiduo/fa q/LPF426(Thi s link is being provided for informational/e ducational purposes only.) RAC (test code Performing = RAC) Organization Information: Site ID: IG Name: [facility] Address: [address] [place] [address] Director: Dr. Reno Khalil [facility] anticoagulant [id number] 18:59:00 Test Item Value Reference Interpretation Comments Range Lupus anticoagulant SEE NOTE NOT DETECTED A Lupus (test code = Anticoagulant i s 72275-5) NOT DETECTED. T his interpretation is basedon the following test results: PTT lupus 33 See_Comment For more anticoagulant (test informat ion on this code = 12148-1) test, go to:http://educa tion .Seven Media Productions Grouposti cs.c om/faq/XAF33i0( This link is being provided for informational/e duca tionalpurposes only.) [Automat ed message] The sy stem which generated this result transmitted reference [...] RAC) Organization Information: Site ID: EZ Name: [facility], Address: [address] [place] [address] Director: Flakita Hill MD,PhD,CATHERINE [facility] HospitalVitamin D 25 hydroxy [id number] 18:59:00 Test Item Value Reference Range Interpretation Comments Vitamin D, 98 ng/mL 30-100 Vitamin D Statu s 25-hydroxy (test 25-OH Vitam in D: code = 1988-) Deficiency: < 20 ng/mLInsufficie ncy : 20 [...] additional information, please refer to http://educatio n.[employer] .co m/faq/TXL731 (T his link is being provided for informational/e nate ational purpose s only.) RAC (test code = Performing RAC) Organization Information: Site ID: RGA [facility]: [facility] Address: [address] [place] [address] Director: Reno RendonEastland Memorial HospitalUrine protein/creatinine ratio, [id number] 18:59:00 Test Item Value Reference Range Interpretation Comments Creatinine, TNP mg/dL TEST NOT PERFOR MED No urine suitable specim en (mg/dL) received.Please review (test code = the testrequire ments at 2161-8) testdirectory.q [employer] RAC (test Performing code = RAC) Organization Information: Site ID: RGA [facility]: [facility] Address: [address] [place] [address] Director: Reno RendonEastland Memorial HospitalCyclic citrullinated peptide antibody, [id number] 18:59:00 Test Item Value Reference Range Interpretation Comments Cyclic citrullin <16 UNITS Reference peptide Ab (test RangeNegati ve: code = 88251-3) <20Weak Posi tive: 20-39Moderate Positive: 40-59Strong Positive: >59 RAC (test code = Performing RAC) Organization Information: Site ID: IG Name: [facility] Lab Address: [address] [place] [address] Director: Dr. Reno Mclean [facility] HospitalsUrinalysis screen and microscopy, with reflex to culture 2021-11-03 18:59:00 Test Item Value Reference Range Interpretation Comments Color, UA TNP TEST NOT PERFOR MED (test code = No urine receiv ed. 5778-6) RAC (test code Performing = RAC) Organization Information: Site ID: RGA Name: [facility] Lab Address: [address] [place] [address] Director: Reno Mclean [facility] HospitalsRibonucleoprotein antibody (AIR CONDITIONING MECHANIC INDUSTRIAL antibody)2021-11-03 18:59:00 Test Item Value Reference Range Interpretation Comments Ribonucleic <1.0 NEG See_Comment [Automated antibody (AIR CONDITIONING MECHANIC INDUSTRIAL) message] The (test code = system which 32033-5) generated this result transmitted reference range : <1.0 NEG AI. Th e reference range was not used to interpret this result as normal/abnormal . RAC (test code = Performing RAC) Organization Information: Site ID: IG Name: [facility] Lab Address: [address] [place] [address] Director: Dr. Reno Mclean [facility] System [id number] 18:59:00 Test Item Value Reference Range Interpretation Comments Perales antibody <1.0 NEG See_Comment [Automated (test code = message] The 19406-7) system which generated this result transmit angelina reference range : <1.0 NEG AI. Th e reference range was not used to interpret this result as normal/abnormal . RAC (test code = Performing RAC) Organization Information: Site ID: IG Name: [facility] Lab Address: [address] [place] [address] Director: Dr. Reno Mclean [facility] HospitalsBeta-2 glycoprotein 1 antibodies (IgG, IgA, IgM)2021-11-03 18:59:00 Test Item Value Reference Interpretation Comments Range Beta-2 <2.0 U/mL Value glycoprotein 1 Interpretatio n----- antibody, IgG <20.0 (test code = Antibody not de tected> 57119-0) or = 20.0 Antib cinda detected Beta-2 <2.0 U/mL Value glycoprotein 1 Interpretatio n----- antibody, IgM <20.0 (test code = Antibody not de tected> 93408-3) or = 20.0 Antib cinda detected Beta-2 <2.0 U/mL The antiphospho lipid glycoprotein 1 antibody synd ilana (APS) antibody, IgA is aclinical-p athologic (test code = correlation cinthia t 97636-2) includes a clin icalevent (e.g. arterial or [...] For additional information, pl ease refer tohttp://educat ion.[employer].TuneIn /faq/FAQ1 09(This link is being provided for informational/e ducationa lpurposes only. ) Value Interpretation- ---- < 20.0 Antibody not detected> or = 20.0 Antibody detect ed RAC (test code = Performing RAC) Organization Information: Site ID: EZ Name: [facility]Steve siegel [facility], Address: [address] [place] [address] Director: Flakita Hill MD,PhD,CATHERINE [facility] HospitalDirect antiglobulin test (STEPHANY)2021-11-03 18:59:00 Test Item Value Reference Range Interpretation Comments Direct antiglobulin NEGATIVE NEGATIVE test (STEPHANY) (test code = 1007-4) RAC (test code = RAC) Performing Organization Information: Site ID: IG [facility]: [facility] Address: [address] [place] [address] Director: Dr. Reno Khalil [facility] yefanaqfrrtagmv9014-05-07 18:59:00 Test Item Value Reference Interpretation Comments Range Protein (test code 8.0 g/dL 6.1-8.1 = 2885-2) Albumin, S (test 3.9 g/dL 3.8-4.8 code = 2862-1) Sydlk-2-mvomssio 0.4 g/dL 0.2-0.3 H (test code = 2865-4) Jijho-0-ilzymjjr 0.9 g/dL 0.5-0.9 (test code = 2868-8) Beta-1 globulin 0.5 g/dL 0.4-0.6 (test code = 15430-2) Beta-2 globulin 0.6 g/dL 0.2-0.5 H (test code = 65846-1) Gamma globulin 1.7 g/dL 0.8-1.7 (test code = 2874-6) Interpretation Electrophore tic (test code = [place] an 87843-3) isolated elevat ion of beta-2 globulin s. This pattern is sugg estive of acute inflam mation; however, the pr esence of a monoclonal protein cannot be ruled out. Cons ider serumimmunofixa tion to rule out monocl onal protein (if not already ordered ). Alpha-1 globuli n increase noted. RAC (test code = Performing RAC) Organization Information: Site ID: IG Name: [facility] Lab Address: [address] [place] [address] Director: Dr. Reno Khalil Lab Interpretation Abnormal (test code = 90787-0) [facility] HospitalComplement activity, [id number] 18:59:00 Test Item Value Reference Range Interpretation Comments Complement activity, >60 31-60 H total (test code = 4532-8) RAC (test code = RAC) Performing Organization Information: Site ID: EZ Name: [facility], Address: [address] [place] [address] Director: Flakita Hill MD,PhD,CATHERINE Lab Interpretation (test Abnormal code = 97045-4) ScientologistTrinitas HospitalRheumatoid [id number] 18:59:00 Test Item Value Reference Range Interpretation Comments Rheumatoid factor <14 See_Comment [Automate d (test code = message] The 70347-9) system which generated this result transmit angelina reference range : <14 IU/mL. The reference range was not used to interpret this result as normal/abnormal . RAC (test code = Performing RAC) Organization Information: Site ID: RGA [facility]: [facility] Address: [address] [place] [address] Director: Reno Khalil Scientologist HospitalCardiolipin [id number] 18:59:00 Test Item Value Reference Interpretation Comments Range Cardiolipin IgA <2.0 APL-U/mL Value Interp retation----- (test code = < 20.0 5076-5) Antibody not de tected> or = 20.0 Antibody d etected Cardiolipin IgG <2.0 GPL-U/mL Value Interp retation----- (test code = < 20.0 3181-5) Antibody [...] sury tional information, pl ease refer tohttp://educat ion.Youxiduo/fa q/MSV784(Thi s link is being provided for informational/e ducational purposes only.) RAC (test code Performing = RAC) Organization Information: Site ID: IG Name: [facility] Address: [address] [place] [address] Director: Dr. Reno Khalil [facility] anticoagulant [id number] 18:59:00 Test Item Value Reference Interpretation Comments Range Lupus anticoagulant SEE NOTE NOT DETECTED A Lupus (test code = Anticoagulant i s 44262-2) NOT DETECTED. T his interpretation is basedon the following test results: PTT lupus 33 See_Comment For more anticoagulant (test informat ion on this code = 35572-7) test, go to:http://educa tion .[employer] Grouposti cs.c om/faq/QDQ87e7( This link is being provided for informational/e duca tionalpurposes only.) [Automat ed message] The sy stem which generated this result transmitted reference [...] RAC) Organization Information: Site ID: EZ Name: [facility]/Heidi wong [facility], Address: [address] [place] [address] Director: Flakita Hill MD,PhD,CATHERINE [facility] HospitalVitamin D 25 hydroxy [id number] 18:59:00 Test Item Value Reference Range Interpretation [...] please refer to http://educatio n.Q uestDiagnostics .co m/faq/IIC010 (T his link is being provided for informational/e nate ational purpose s only.) RAC (test code = Performing RAC) Organization Information: Site ID: RGA Name: [facility] Address: [address] [place] [address] Director: Reno Khalil [facility]2022-07-14 18:59:00InterpretationQUEST EscapadaRural, Servicios para propietariosKINDRED HOSPITAL AT [facility] IIPerforming Organization Information: Site ID: IG Name: [facility] Lab Address: [address] [place] [address] Director: Dr. Reno KhalilHCA [facility] Healthcare Northwestofixachristianacare, [facility] 2021-11-03 18:59:00InterpretationQUEST EscapadaRural, Servicios para propietariosKINDRED HOSPITAL [facility] IIPerforming Organization Information: Site ID: IG Name: [facility] Address: [address] [place] [address] Director: Dr. Reno Barraza [facility] Cantonofixanorwood hospitaldaqim5987-14-51 18:59:00 InterpretationQUEST EscapadaRural, Servicios para propietariosKINDRED HOSPITAL AT [facility] IIPerforming Organization Information: Site ID: IG Name: [facility] Address: [address] [place] [address] Director: Dr. Reno [facility]il[facility] Immunofixation, [id number] 18:59:00InterpretationQUEST DIAGNOSTICSKINDRED HOSPITAL AT MORRIS IIPerforming Organization Information: Site ID: IG Name: [facility] Lab Address: [address] [place] [address] Director: Dr. Reno MonterrosoInspira Medical Center WoodburyImmunofixation, [id number] 18:59:00 InterpretationQUEST DIAGNOSTICSKINDRED HOSPITAL AT MORRIS IIPerforming Organization Information: Site ID: IG Name: [facility] Address: [address] [place] [address] Director: Dr. Reno KhalilMemorial Hermann Katy HospitalAldolase, [id number] 00:10:00 Test Item Value Reference Range Interpretation Comments Aldolase (test 3.8 U/L See_Comment [Automated code = 1761-6) message] The system which generated this result transmit angelina reference range : < OR = 8.1. The reference range was not used to interpret this result as normal/abnormal . RAC (test code = Performing RAC) Organization Information: Site ID: IG Name: [facility] Address: [address] [place] [address] Director: Dr. Reno Mclean [facility] HospitalsCreatine kinase, total (CPK)2021-10-29 00:10:00 Test Item Value Reference Range Interpretation Comments Creatine kinase (test 78 U/L 29-143 code = 2157-6) RAC (test code = RAC) Performing Organization Information: Site ID: RGA Name: [facility] Address: [address] [place] [address] Director: Reno Khalil Scientologist [facility] HospitalsAldolase, [id number] 00:10:00 Test Item Value Reference Range Interpretation Comments Aldolase (test 3.8 U/L See_Comment [Automated code = 1761-6) message] The system which generated this result transmit angelina reference range : < OR = 8.1. The reference range was not used to interpret this result as normal/abnormal . RAC (test code = Performing RAC) Organization Information: Site ID: IG Name: [facility] Address: [address] [place] [address] Director: Dr. Reno Mclean [facility] HospitalsCreatine kinase, total (CPK)2021-10-29 00:10:00 Test Item Value Reference Range Interpretation Comments Creatine kinase (test 78 U/L 29-143 code = 2157-6) RAC (test code = RAC) Performing Organization Information: Site ID: [facility] Name: [facility] Lab Address: [address] [place] [address] Director: Reno Mclean [facility] HospitalsAldolase, [id number] 00:10:00 Test Item Value Reference Range Interpretation Comments Aldolase (test 3.8 U/L See_Comment [Automated code = 1761-6) message] The system which generated this result transmit angelina reference range : < OR = 8.1. The reference range was not used to interpret this result as normal/abnormal . RAC (test code = Performing RAC) Organization Information: Site ID: Name: [facility] Address: [address] [place] [address] Director: Dr. Reno Mclean [facility] HospitalsCreatine kinase, total (CPK)2021-10-29 00:10:00 Test Item Value Reference Range Interpretation Comments Creatine kinase (test 78 U/L 29-143 code = 2157-6) RAC (test code = RAC) Performing Organization Information: Site ID: [facility] Name: [facility] Lab Address: [address] [place] [address] Director: Reno Mclean [facility] HospitalsAldolase, [id number] 00:10:00 Test Item Value Reference Range Interpretation Comments Aldolase (test 3.8 U/L See_Comment [Automated code = 1761-6) message] The system which generated this result transmit angelina reference range : < OR = 8.1. The reference range was not used to interpret this result as normal/abnormal . RAC (test code = Performing RAC) Organization Information: Site ID: IG Name: [facility] Address: [address] [place] [address] Director: Dr. Reno Mclean HospitalCreatine kinase, total (CPK)2021-10-29 00:10:00 Test Item Value Reference Range Interpretation Comments Creatine kinase (test 78 U/L 29-143 code = 2157-6) RAC (test code = RAC) Performing Organization Information: Site ID: A Name: [facility] Address: [address] [place] [address] Director: Reno Khalil [facility] HospitalAldolase, [id number] 00:10:00 Test Item Value Reference Range Interpretation Comments Aldolase (test 3.8 U/L See_Comment [Automated code = 1761-6) message] The system which generated this result transmit angelina reference range : < OR = 8.1. The reference range was not used to interpret this result as normal/abnormal . RAC (test code = Performing RAC) Organization Information: Site ID: IG Name: [facility] Address: [address] [place] [address] Director: Dr. Reno Louisridge [facility] HospitalCreatine kinase, total (CPK)2021-10-29 00:10:00 Test Item Value Reference Range Interpretation Comments Creatine kinase (test 78 U/L 29-143 code = 2157-6) RAC (test code = RAC) Performing Organization Information: Site ID: [facility] Name: [facility] Lab Address: [address] [place] [address] Director: [place] Maude [facility] CenterVitamin B1 level, whole [id number] 04:17:00 Test Item Value Reference Range Interpretation Comments Vitamin B1, 112 nmol/L 78-185 Vitamin whole blood supplementation (test code = within 24 hours prior 87394-4) toblood draw ma y affect the accu racy of results. Thi s test was developed a nd its analytical performance characteristics have been determined by [employer]. It has not been cl eared or approved by theA. This as say has been valida angelina pursuant to the CLIA regulations and is used for clinic al purposes. RAC (test code Performing = RAC) Organization Information: Site ID: SLI Name: [facility] [place] Address: [address] [place] [address] Director: Franki Boone M.D. [facility] HospitalVitamin B6 level, [id number] 04:17:00 Test Item Value Reference Range Interpretation [...] AND IS USED FOR CLINICAL PURPOS ES. MDed [id number] [place] [address],[address] [place] [address] [phone] 00Mich krys Mi MD RAC (test code Performing = RAC) Organization Information: Site ID: Z3E Name: [facility] Address: [address] [place] [address], [address] [address] Director: Rivera Mi MD [facility] HospitalVitamin B1 level, whole [id number] 04:17:00 Test Item Value Reference Range Interpretation Comments Vitamin B1, 112 nmol/L 78-185 Vitamin whole blood supplementation (test code = within 24 hours prior 04957-2) toblood draw ma y affect the accu racy of results. Thi s test was developed a nd its analytical performance characteristics have been determined by [employer]. It has not been cl eared or approved by theFDA. This as say has been valida angelina pursuant to the CLIA regulations and is used for clinic al purposes. RAC (test code Performing = RAC) Organization Information: Site ID: SLI Name: [facility] [place] Address: [address] [place] [address] Director: Franki Boone M.D. [facility] HospitalVitamin B6 level, [id number] 04:17:00 Test Item Value Reference Range Interpretation [...] AND IS USED FOR CLINICAL PURPOS ES. MDed [id number] [place] [address],[address] [place] [address] [phone] 00Mich krys Mi MD RAC (test code Performing = RAC) Organization Information: Site ID: Z3E Name: [facility] Address: [address] [place] [address], [address] [place] [address] Director: Rivera Mi MD [facility] HospitalVitamin B1 level, whole [id number] 04:17:00 Test Item Value Reference Range Interpretation Comments Vitamin B1, 112 nmol/L 78-185 Vitamin whole blood supplementation (test code = within 24 hours prior 11826-3) toblood draw ma y affect the accu racy of results. Thi s test was developed a nd its analytical performance characteristics have been determined by [employer] . It has not been cl eared or approved by theFDA. This as say has been valida angelina pursuant to the CLIA regulations and is used for clinic al purposes. RAC (test code Performing = RAC) Organization Information: Site ID: SLI [facility]: [facility] Address: [address] [place] [address] Director: Franki Boone M.D. [facility] HospitalVitamin B6 level, [id number] 04:17:00 Test Item Value Reference Range Interpretation [...] IS USED FOR CLINICAL PURPOS ES. MDFmed [place] [address],[address] [place] [address] [phone] 00Mich krys Mi MD RAC (test code Performing = RAC) Organization Information: Site ID: Z3E Name: [facility] Address: [address] [place] [address], [address] [place] [address] Director: Rivera Mi MD [facility] HospitalVitamin B1 level, whole [id number] 04:17:00 Test Item Value Reference Range Interpretation Comments Vitamin B1, 112 nmol/L 78-185 Vitamin whole blood supplementation (test code = within 24 hours prior 60908-1) toblood draw ma y affect the accu racy of results. Thi s test was developed a nd its analytical performance characteristics have been determined by [employer]. It has not been cl eared or approved by theFDA. This as say has been valida angelina pursuant to the CLIA regulations and is used for clinic al purposes. RAC (test code Performing = RAC) Organization Information: Site ID: SLI Name: [facility] Address: [address] [place] [address] Director: Franki Boone M.D. [facility] HospitalVitamin B6 level, [id number] 04:17:00 Test Item Value Reference Range Interpretation Comments Vitamin B6 5.1 ng/mL 2.1-21.7 (Note)VITAMIN (test code = SUPPLEMENTATION 2900-9) WITHIN 24 HOURS PRIOR TO BLOOD DRAW M AY AFFECT THE ACCU RACY OF RESULTS. THI S TEST WAS DEVELOPED A ND ITS ANALYTICAL PERFORMANCE CHARACTERISTICS HAVE BEEN DETERMINED BY [email or web address]. IT H NOT BEEN CLEARED OR APPROVED BY THE FDA. THIS ASSAY HAS BEEN VALIDATED PURSU ANT TO THE CLIA REGULA TIONS AND IS USED FOR CLINICAL PURPOS ES. MDFmed [id number] [address] [address],[address] [place] [address] [phone] 00Mich krys Mi MD RAC (test code Performing = RAC) Organization Information: Site ID: Z3E Name: [facility] Address: [address] [place] [address], [address] [place] [address] Director: Rivera Mi MD [facility] HospitalVitamin B1 level, whole [id number] 04:17:00 Test Item Value Reference Range Interpretation Comments Vitamin B1, 112 nmol/L 78-185 Vitamin whole blood supplementation (test code = within 24 hours prior 69233-6) toblood draw ma y affect the accu racy of results. Thi s test was developed a nd its analytical performance characteristics have been determined by [employer]. It has not been cl eared or approved by theFDA. This as say has been valida angelina pursuant to the CLIA regulations and is used for clinic al purposes. RAC (test code Performing = RAC) Organization Information: Site ID: SLI Name: [facility] Services[facility] Address: [address] [place] [address] Director: Franki Boone M.D. [facility] HospitalVitamin B6 level, [id number] 04:17:00 Test Item Value Reference Range Interpretation Comments Vitamin B6 5.1 ng/mL 2.1-21.7 (Note)VITAMIN (test code = SUPPLEMENTATION 2900-9) WITHIN 24 HOURS PRIOR TO BLOOD DRAW M AY AFFECT THE ACCU RACY OF RESULTS. THI S TEST WAS DEVELOPED A ND ITS ANALYTICAL PERFORMANCE CHARACTERISTICS HAVE BEEN DETERMINED BY [employer]. IT H NOT BEEN CLEARED OR APPROVED BY THE FDA. THIS ASSAY HAS BEEN VALIDATED PURSU ANT TO THE CLIA REGULA TIONS AND IS USED FOR CLINICAL PURPOS ES. Fmed [address]qxioc[address] [address],[address] [place] [address] [phone] 00Mich krys Mi MD [facility] (test code Performing = RAC) Organization Information: Site ID: Z3E Name: [facility] Address: [address] [place] [address], [address] [place] [address] Director: Rivera Mi MD [facility] HospitalMicroalbumin / creatinine urine [id number] 22:31:00 Test Item Value Reference Range Interpretation Comments Creatinine, 64 mg/dL 20-275 urine (mg/dL) (test code = 2161-8) Microalbumin <0.2 See Note: mg/dL Reference Ra nge: , urine Reference Range Not (test code = established 75655-8) Microalbumin NOTE See_Comment NOTE: The urine albumin [...] patient to bewi thin a diagnostic devin gory. [Automated mess age] The system which ge nerated this result tra nsmitted reference range : <30 mcg/mg creat. T he reference range was not used to interpr et this result as normal/abnormal . RAC (test Performing code = RAC) Organization Information: Site ID: RGA Name: [facility] Lab Address: [address] [place] [address] Director: Reno Khalil [facility] [id number] 22:31:00 Test Item Value Reference Range Interpretation Comments Sjogren's SS-A >8.0 POS See_Comment A [Automated antibody (test code message] The = 59854-2) system which generated this result transmitted reference range : <1.0 NEG AI. Th e reference range was not used to interpret this result as normal/abnormal . RAC (test code = Performing RAC) Organization Information: Site ID: IG Name: [facility] Address: [address] [place] [address] Director: Dr. Reno Khalil Lab Interpretation Abnormal (test code = 52880-9) [facility] [id number] 22:31:00 Test Item Value Reference Range Interpretation Comments Sjogren's SS-B <1.0 NEG See_Comment [Automated antibody (test message] The code = 68010-2) system which generated this result transmit angelina reference range : <1.0 NEG AI. Th e reference range was not used to interpret this result as normal/abnormal . RAC (test code = Performing RAC) Organization Information: Site ID: IG Name: [facility] Address: [address] [place] [address] Director: Dr. Reno Khalil [facility] reflex to [id number] 22:31:00 Test Item Value Reference Range Interpretation Comments TSH reflex to 1.52 See_Comment [Automated FT4 (test code message] The system = 3016-3) which generated this result transmitted reference range : 0.40 - 4.50 mIU /L. The reference r isabella was not used to interpret this result as normal/abnormal . RAC (test code Performing = RAC) Organization Information: Site ID: RGA Name: [facility] Address: [address] [place] [address] Director: Reno Khalil [facility] HospitalANA SCREEN W IFA W REFLEX TO [id number] 22:31:00 Test Item Value Reference Interpretation Comments Range CLEVE Screen (test POSITIVE NEGATIVE A CLEVE IFA is a first code = 54447-3) line screen for detecting thepresence of up to approximately 1 50 autoantibodies invarious autoi mmune diseases. A pos itive CLEVE IFA resulti s suggestive of autoimmune dise ase and reflexes to titer and pattern. Fu rther laboratory test ing may beconsidere d if clinically indicated. For additional information, pl ease refer tohttp://educat ion.[employer]/ faq/FMU428(This link is being provid ed for informational/e ducat ional purposes only.) CLEVE titer (test 1:640 titer H Reference R isabella code = 5048-4) <1:40 Negativ e 1:40-1:80 Low Antibody Level >1:80 Elevated Antibo dy Level CLEVE pattern (test Nuclear, Speckled A Speck led pattern is code = 27327-8) associated w ith mixed connectivetissu e disease (MCTD), systemic lupus erythematosus(S LE), Sjogren's syndr ome, dermatomyositis , and systemic sclerosis/polym yosit is overlap. AC-2,4,5,29: Speckled International Consensus on AN A Patterns(https: //doi .org/10.1515/cc lm-20 18-0052) RAC (test code = Performing RAC) Organization Information: Site ID: IG Name: [facility] Services[facility] [facility] Address: [address] [place] [address] Director: Dr. Reno Khalil Lab Interpretation Abnormal (test code = 42921-2) [facility] HospitalVitamin B12 [id number] 22:31:00 Test Item Value Reference Range Interpretation Comments Vitamin B12 (test 744 pg/mL 200-1100 code = 2132-9) RAC (test code = Performing Organization RAC) Information: Site ID: RGA [facility] Address: [address] [place] [address] Director: Reno Khalil [facility] HospitalFerritin [id number] 22:31:00 Test Item Value Reference Range Interpretation Comments Ferritin level (test 107 ng/mL 16-288 code = 2276-4) RAC (test code = RAC) Performing Organization Information: Site ID: BABATUNDE [facility]: [facility] Address: [address] [place] [address] Director: Reno Khalil [facility] [id number] 22:31:00 Test Item Value Reference Range Interpretation Comments Folate (test 10.2 ng/mL Reference Rang e code = 2284-8) Low: <3.4 Borderline: 3.4-5.4 Normal: >5.4 RAC (test code Performing = RAC) Organization Information: Site ID: BABATUNDE [facility] Address: [address] [place] [address] Director: Reno LouisOhioHealth Dublin Methodist HospitalHemoglobin [id number] 22:31:00 Test Item Value Reference Interpretation Comments Range Hemoglobin A1C 5.8 See_Comment H For someone w ithout (test code = known diabetes, a 4548-4) hemoglobin A1c value between 5.7% an d 6.4% is consist ent withprediabetes and should be confi rmed with a follow-u p test. For someo ne with known diab etes, a value <7%indicates that their diabetes is well controlled . H6mquqqmyc shou ld be individualized based on duration [...] % of total Hgb. The reference r isabella was not used to interpret this result as normal/abnormal . RAC (test code = Performing RAC) Organization Information: Site ID: BABATUNDE [facility] Address: [address] [place] [address] Director: Reno Khalil Lab Interpretation Abnormal (test code = 75535-6) [facility] [id number] 22:31:00 Test Item Value Reference Range Interpretation Comments Iron level 94 See_Comment [Automated (test code = message] The sy stem 2498-4) which generated this result transmitted reference range : 45 - 160 mcg/dL. T he reference range was not used to interpret this result as normal/abnormal . RAC (test code Performing = RAC) Organization Information: Site ID: Saqib Name: [facility] Address: [address] [place] [phone] Director: Reno Khalil [facility] HospitalMagnesium [id number] 22:31:00 Test Item Value Reference Range Interpretation Comments Magnesium (test code 2.0 mg/dL 1.5-2.5 = 27478-6) RAC (test code = RAC) Performing Organization Information: Site ID: A Name: [facility] Lab Address: [address] [place] [address] Director: Reno Khalil [facility] HospitalUric acid [id number] 22:31:00 Test Item Value Reference Range Interpretation Comments Uric acid (test code 1.8 mg/dL 2.5-7.0 L Therape utic = 3084-1) target for gout patients: <6.0 mg/dL RAC (test code = Performing RAC) Organization Information: Site ID: A [facility]: [facility] Lab Address: [address] [place] [address] Director: Reno Khalil Lab Interpretation Abnormal (test code = 69851-9) [facility] HospitalUrine [id number] 22:31:00 Test Item Value Reference Interpretation Comments Range Urine culture (test SEE NOTE A CULTURE , URINE, code = 630-4) ROUTINE Micro Number: [id number] Test Status: Fi nal Specimen Source : Urine Specimen Quality: Adequa te Result: 50,000-100,000 CFU/mL of Escherichia col i Greater than 100,000 CFU/mL of Enterococcus faecalis E.coli E.faecalis - - INT HENRIK INT HENRIK AMOX/CLAVULANAT E S 4 * AMPICILLIN R >=32 R <=2 AMP/SULBACTAM I 16 * CEFAZOLIN NR <=4 2 * CEFEPIME S <=1 * CEFTRIAXONE S < =1 * CIPROFLOXACIN S <=0.25 S 1 GENTAMICIN S <= [...] P. mirabilis : Cefazolin is resistant if W[place] C > or = 8 mcg/mL. (Distinguishing [...] RAC) Organization Information: Site ID: RGA Name: [facility] Address: [address] [place] [address] Director: Reno Khalil Lab Interpretation Abnormal (test code = 55686-1) [facility]inalysis, automated with [id number] 22:31:00 Test Item Value Reference Range Interpretation Comments Color, UA (test YELLOW YELLOW code = 5778-6) Appearance (test CLEAR CLEAR code = 5767-9) Specific gravity, 1.010 1.001-1.035 urine (test code = 5811-5) pH, urine (test < OR = 5.0 5.0-8.0 code = 5803-2) Glucose, urine NEGATIVE NEGATIVE (test code = 99656-7) Bilirubin, UA NEGATIVE NEGATIVE (test code = 5770-3) Ketones, UA (test NEGATIVE NEGATIVE code = 2514-8) Occult blood, NEGATIVE NEGATIVE urine (test code = 5794-3) Protein, UA (test NEGATIVE NEGATIVE code = 76174-2) Nitrite, UA (test NEGATIVE NEGATIVE code = [...] (test NONE SEEN See_Comment [Automated code = 65574-1) message] The system which generated this result transmit angelina reference range : < OR = 2 /HPF. Th e reference range was not used to interpret this result as normal/abnormal . Squamous 0-5 See_Comment [Automated epithelial cells, message] T he UA (test code = system which 72150-7) generated this result transmit angelina reference range : < OR = 5 /HPF. Th e reference range was not used to interpret this result as normal/abnormal . Bacteria, UA NONE SEEN NONE SEEN /HPF (test code = 5769-5) Hyaline casts, UA NONE SEEN NONE SEEN /LPF (test code = 5796-8) RAC (test code = Performing RAC) Organization Information: Site ID: RGA [facility] Lab Address: [address] [place] [phone] Director: Reno Khalil [facility] HospitalMicroalbumin / creatinine urine [id number] 22:31:00 Test Item Value Reference Range Interpretation Comments Creatinine, 64 mg/dL 20-275 urine (mg/dL) (test code = 2161-8) Microalbumin <0.2 See Note: mg/dL Reference Ra nge: , urine Reference Range Not (test code = established 11048-8) Microalbumin NOTE See_Comment NOTE: The urine albumin [...] RAC) Organization Information: Site ID: RGA Name: [facility] Lab Address: [address] [place] [address] Director: Reno Khalil [facility] [id number] 22:31:00 Test Item Value Reference Range Interpretation Comments Sjogren's SS-A >8.0 POS See_Comment A [Automated antibody (test code message] The = 49120-7) system which generated this result transmitted reference range : <1.0 NEG AI. Th e reference range was not used to interpret this result as normal/abnormal . RAC (test code = Performing RAC) Organization Information: Site ID: IG Name: [facility] [place] [facility] Lab Address: [address] [place] [phone] Director: Dr. Reno Khalil Lab Interpretation Abnormal (test code = 90560-1) [facility] [id number] 22:31:00 Test Item Value Reference Range Interpretation Comments Sjogren's SS-B <1.0 NEG See_Comment [Automated antibody (test message] The code = 37547-8) system which generated this result transmit angelina reference range : <1.0 NEG AI. Th e reference range was not used to interpret this result as normal/abnormal . RAC (test code = Performing RAC) Organization Information: Site ID: IG Name: [facility] Lab Address: [address] [place] [address] Director: Dr. Reno Khalil [facility] reflex to [id number] 22:31:00 Test Item Value Reference Range Interpretation Comments TSH reflex to 1.52 See_Comment [Automated FT4 (test code message] The system = 3016-3) which generated this result transmitted reference range : 0.40 - 4.50 mIU /L. The reference r isabella was not used to interpret this result as normal/abnormal . [facility] (test code Performing = RAC) Organization Information: Site ID: RGA [facility] Address: [address] [place] [address] Director: Reno Khalil [facility] HospitalANA SCREEN W IFA W REFLEX TO [id number] 22:31:00 Test Item Value Reference Interpretation Comments Range CLEVE Screen (test POSITIVE NEGATIVE A CLEVE IFA is a first code = 98775-3) line screen for detecting thepresence of up to approximately 1 50 autoantibodies invarious autoi mmune diseases. A pos itive CLEVE IFA resulti s suggestive of autoimmune dise ase and reflexes to titer and pattern. Fu rther laboratory test ing may beconsidere d if clinically indicated. For additional information, pl ease refer tohttp://educat ion.[employer]/ faq/BVK634(This link is being provid ed for informational/e ducat ional purposes only.) CLEVE titer (test 1:640 titer H Reference R isabella code = 5048-4) <1:40 Negativ e 1:40-1:80 Low Antibody Level >1:80 Elevated Antibo dy Level CLEVE pattern (test Nuclear, Speckled A Speck led pattern is code = 86633-1) associated w ith mixed connectivetissu e disease (MCTD), systemic lupus erythematosus(S LE), Sjogren's syndr ome, dermatomyositis , and systemic sclerosis/polym yosit is overlap. AC-2,4,5,29: Speckled International Consensus on AN A Patterns(https: //doi .org/10.1515/cc lm-20 18-0052) RAC (test code = Performing RAC) Organization Information: Site ID: IG Name: [facility] Lab Address: [address] [place] [address] Director: Dr. Reno Khalil Lab Interpretation Abnormal (test code = 38664-5) [facility] HospitalVitamin B12 [id number] 22:31:00 Test Item Value Reference Range Interpretation Comments Vitamin B12 (test 744 pg/mL 200-1100 code = 2132-9) RAC (test code = Performing Organization RAC) Information: Site ID: RGA [facility]: [facility] Lab Address: [address] [place] [address] Director: Reno Khalil [facility] HospitalFerritin [id number] 22:31:00 Test Item Value Reference Range Interpretation Comments Ferritin level (test 107 ng/mL 16-288 code = 2276-4) RAC (test code = RAC) Performing Organization Information: Site ID: Saqib Name: [facility] Lab Address: [address] [place] [address] Director: Reno Santoro CrandallOhioHealth Dublin Methodist HospitalFolate [id number] 22:31:00 Test Item Value Reference Range Interpretation Comments Folate (test 10.2 ng/mL Reference Rang e code = 2284-8) Low: <3.4 Borderline: 3.4-5.4 Normal: >5.4 RAC (test code Performing = RAC) Organization Information: Site ID: BABATUNDE [facility]: [facility] Lab Address: [address] [place] [address] Director: Reno RendonEastland Memorial HospitalHemoglobin [id number] 22:31:00 Test Item Value Reference Interpretation Comments Range Hemoglobin A1C 5.8 See_Comment H For someone w ithout (test code = known diabetes, a 4548-4) hemoglobin A1c value between 5.7% an d 6.4% is consist ent withprediabetes and should be confi rmed with a follow-u p test. For someo ne with known diab etes, a value <7%indicates that their diabetes is well controlled . O8pshhzqno shou ld be individualized based on duration [...] % of total Hgb. The reference r isabella was not used to interpret this result as normal/abnormal . RAC (test code = Performing RAC) Organization Information: Site ID: [facility] Name: [facility] Address: [address] [place] [address] Director: Reno Khalil Lab Interpretation Abnormal (test code = 59173-9) [facility] [id number] 22:31:00 Test Item Value Reference Range Interpretation Comments Iron level 94 See_Comment [Automated (test code = message] The sy stem 1478-4) which generated this result transmitted reference range : 45 - 160 mcg/dL. T he reference range was not used to interpret this result as normal/abnormal . RAC (test code Performing = RAC) Organization Information: Site ID: A [facility] Lab Address: [address] [place] [address] Director: Reno Khalil [facility] [id number] 22:31:00 Test Item Value Reference Range Interpretation Comments Magnesium (test code 2.0 mg/dL 1.5-2.5 = 70229-7) RAC (test code = RAC) Performing Organization Information: Site ID: [facility] Name: [facility] Lab Address: [address] [place] [address] Director: Reno Khalil [facility] HospitalUric acid [id number] 22:31:00 Test Item Value Reference Range Interpretation Comments Uric acid (test code 1.8 mg/dL 2.5-7.0 L Therape utic = 3084-1) target for gout patients: <6.0 mg/dL RAC (test code = Performing RAC) Organization Information: Site ID: [facility] Address: [address] [place] [address] Director: Reno Khalil Lab Interpretation Abnormal (test code = 40846-4) [facility]2022-05-23 22:31:00 Test Item Value Reference Interpretation Comments Range Urine culture (test SEE NOTE A CULTURE , URINE, code = 630-4) ROUTINE Micro Number: [id number] Test Status: Fi nal Specimen Source : Urine Specimen Quality: Adequ ate Result: 50,000-100,000 CFU/mL of Escherichia col i Greater than 100,000 CFU/mL of Enterococcus faecalis E.coli E.faecalis - - INT HENRIK INT HENRIK AMOX/CLAVULANAT E S 4 * AMPICILLIN R >=32 R <=2 AMP/SULBACTAM I 16 * CEFAZOLIN NR <=4 2 * CEFEPIME S <=1 * CEFTRIAXONE S <=1 * CIPROFLOXACIN S <=0.25 S 1 GENTAMICIN S <= 1 * IMIPENEM S <=0. 25 * LEVOFLOXACIN S <=0.12 S 2 NITROFURANTOIN S <=16 S <=16 PIP/TAZOBACTAM S <=4 * TETRACYCL INE * R >=16 TOBRAMYCIN S <= 1 * TRIMETHOPRIM/DUPONT LFA S <=20 * VANCOM YCIN * S 1 S=Suscept ible I=Intermediate R=Resistant * = Not TestedNR = Not Reported NN = See Therapy Comment s THERAPY COMMENT S Note 1: For infections othe r than uncomplica angelina UTI caused by E . coli, K. pneumo niae or P. mirabilis : Cefazolin is resistant if [place] C > or = 8 mcg/mL. (Distinguishing [...] = Performing RAC) Organization Information: Site ID: [facility] Name: [facility] Address: [address] [place] [phone] Director: Reno Khalil Lab Interpretation Abnormal (test code = 16419-0) [facility] HospitalUrinalysis, automated with [id number] 22:31:00 Test Item Value Reference Range Interpretation Comments Color, UA (test YELLOW YELLOW code = 5778-6) Appearance (test CLEAR CLEAR code = 5767-9) Specific gravity, 1.010 1.001-1.035 urine (test code = 5811-5) pH, urine (test < OR = 5.0 5.0-8.0 code = 5803-2) Glucose, urine NEGATIVE NEGATIVE (test code = 27731-5) Bilirubin, UA NEGATIVE NEGATIVE (test code = 5770-3) Ketones, UA (test NEGATIVE NEGATIVE code = 2514-8) Occult blood, NEGATIVE NEGATIVE urine (test code = 5794-3) Protein, UA (test NEGATIVE NEGATIVE code = 76300-1) Nitrite, UA (test NEGATIVE NEGATIVE code = [...] (test NONE SEEN See_Comment [Automated code = 79428-2) message] The system which generated this result transmit angelina reference range : < OR = 2 /HPF. Th e reference range was not used to interpret this result as normal/abnormal . Squamous 0-5 See_Comment [Automated epithelial cells, message] T he UA (test code = system which 30838-5) generated this result transmit angelina reference range : < OR = 5 /HPF. Th e reference range was not used to interpret this result as normal/abnormal . Bacteria, UA NONE SEEN NONE SEEN /HPF (test code = 5769-5) Hyaline casts, UA NONE SEEN NONE SEEN /LPF (test code = 5796-8) RAC (test code = Performing RAC) Organization Information: Site ID: RGA [facility]: [facility] Lab Address: [address] [place] [phone] Director: Reno Khalil [facility] HospitalMicroalbumin / creatinine urine [id number] 22:31:00 Test Item Value Reference Range Interpretation Comments Creatinine, 64 mg/dL 20-275 urine (mg/dL) (test code = 2161-8) Microalbumin <0.2 See Note: mg/dL Reference Ra nge: , urine Reference Range Not (test code = established 83888-7) Microalbumin NOTE See_Comment NOTE: The urine albumin /creatinine value is less t petty 0.2 ratio (test mg/dL therefore we are code = unable to calcu late 9318-7) excretion and/o r creatinine rati o. The ADA defines abnormalities i n albuminexcretio n as follows: Albumi pavel Category Result (mcg/mg creatinine) Nor mal to Mildly increase d <30Moderately i ncreased 30-299 Severel y increased > OR = 300 The ADA recomme nds that at least two of threespecimens collected withi n a 3-6 month period be abnormal before consider ing a patient to bewi thin a diagnostic devin denishabrittny. [Automated mess age] The system which ge nerated this result tra nsmitted reference range : <30 mcg/mg creat. T he reference range was not used to interpr et this result as normal/abnormal . RAC (test Performing code = RAC) Organization Information: Site ID: RGA Name: [facility] Lab Address: [address] [place] [phone] Director: Reno Khalil [facility] [id number] 22:31:00 Test Item Value Reference Range Interpretation Comments Sjogren's SS-A >8.0 POS See_Comment A [Automated antibody (test code message] The = 53880-4) system which generated this result transmitted reference range : <1.0 NEG AI. Th e reference range was not used to interpret this result as normal/abnormal . RAC (test code = Performing RAC) Organization Information: Site ID: IG Name: [facility] Lab Address: [address] [place] [address] Director: Dr. Reno Khalil Lab Interpretation Abnormal (test code = 15168-4) [facility] [id number] 22:31:00 Test Item Value Reference Range Interpretation Comments Sjogren's SS-B <1.0 NEG See_Comment [Automated antibody (test message] The code = 46515-2) system which generated this result transmit angelina reference range : <1.0 NEG AI. Th e reference range was not used to interpret this result as normal/abnormal . RAC (test code = Performing RAC) Organization Information: Site ID: IG Name: [facility] Lab Address: [address] [place] [address] Director: Dr. Reno Khalil [facility] reflex to [id number] 22:31:00 Test Item Value Reference Range Interpretation Comments TSH reflex to 1.52 See_Comment [Automated FT4 (test code message] The system = 3016-3) which generated this result transmitted reference range : 0.40 - 4.50 mIU /L. The reference r isabella was not used to interpret this result as normal/abnormal . RAC (test code Performing = RAC) Organization Information: Site ID: RGA [facility] Lab Address: [address] [place] [phone] Director: Reno Khalil [facility] HospitalANA SCREEN W IFA W REFLEX TO [id number] 22:31:00 Test Item Value Reference Interpretation Comments Range CLEVE Screen (test POSITIVE NEGATIVE A CLEVE IFA is a first code = 18398-0) line screen for detecting thepresence of up to approximately 1 50 autoantibodies invarious autoi mmune diseases. A pos itive CLEVE IFA resulti s suggestive of autoimmune dise ase and reflexes to titer and pattern. Fu rther laboratory test ing may beconsidere d if clinically indicated. For additional information, pl ease refer tohttp://educat ionJ&J Bri pet food company/ faq/AMD471(This link is being provid ed for informational/e ducat ional purposes only.) CLEVE titer (test 1:640 titer H Reference R isabella code = 5048-4) <1:40 Negativ e 1:40-1:80 Low Antibody Level >1:80 Elevated Antibo dy Level CLEVE pattern (test Nuclear, Speckled A Speck led pattern is code = 11004-8) associated w ith mixed connectivetissu e disease (MCTD), systemic lupus erythematosus(S LE), Sjogren's syndr ome, dermatomyositis , and systemic sclerosis/polym yosit is overlap. AC-2,4,5,29: Speckled International Consensus on AN A Patterns(https: //doi .org/10.1515/cc lm-20 18-0052) RAC (test code = Performing RAC) Organization Information: Site ID: IG Name: [facility] Lab Address: [address] [place] [phone] Director: Dr. Reno Khalil Lab Interpretation Abnormal (test code = 62368-7) [facility] HospitalVitamin B12 [id number] 22:31:00 Test Item Value Reference Range Interpretation Comments Vitamin B12 (test 744 pg/mL 200-1100 code = 2132-9) RAC (test code = Performing Organization RAC) Information: Site ID: BABATUNDE Name: [facility] Lab Address: [address] [place] [phone] Director: [facility] [id number] 22:31:00 Test Item Value Reference Range Interpretation Comments Ferritin level (test 107 ng/mL 16-288 code = 2276-4) RAC (test code = RAC) Performing Organization Information: Site ID: BABATUNDE Name: [facility] Lab Address: [address] [place] [phone] Director: [facility] HealthFolate [id number] 22:31:00 Test Item Value Reference Range Interpretation Comments Folate (test 10.2 ng/mL Reference Rang e code = 2284-8) Low: <3.4 Borderline: 3.4-5.4 Normal: >5.4 RAC (test code Performing = RAC) Organization Information: Site ID: BABATUNDE Name: [facility] Lab Address: [address] [place] [address] Director: [facility] HealthHemoglobin [id number] 22:31:00 Test Item Value Reference Interpretation Comments Range Hemoglobin A1C 5.8 See_Comment H For someone w grayson (test code = known diabetes, a 4548-4) hemoglobin A1c value between 5.7% an d 6.4% is consist ent withprediabetes and should be confi rmed with a follow-u p test. For someo ne with known diab etes, a value <7%indicates that their diabetes is well controlled . M7ajqqputy shou ld be individualized based on duration [...] % of total Hgb. The reference r isabella was not used to interpret this result as normal/abnormal . RAC (test code = Performing RAC) Organization Information: Site ID: A [facility] Address: [address] [place] [address] Director: Reno Khalil Lab Interpretation Abnormal (test code = 46336-0) [facility]2022-05-23 22:31:00 Test Item Value Reference Range Interpretation Comments Iron level 94 See_Comment [Automated (test code = message] The sy stem 2498-4) which generated this result transmitted reference range : 45 - 160 mcg/dL. T he reference range was not used to interpret this result as normal/abnormal . RAC (test code Performing = RAC) Organization Information: Site ID: A [facility] Lab Address: [address] [place] [address] Director: Reno Khalil [facility] [id number] 22:31:00 Test Item Value Reference Range Interpretation Comments Magnesium (test code 2.0 mg/dL 1.5-2.5 = 61660-8) RAC (test code = RAC) Performing Organization Information: Site ID: A Name: [facility] Lab Address: [address] [place] [address] Director: Reno Khalil [facility] HospitalUric acid [id number] 22:31:00 Test Item Value Reference Range Interpretation Comments Uric acid (test code 1.8 mg/dL 2.5-7.0 L Therape utic = 3084-1) target for gout patients: <6.0 mg/dL RAC (test code = Performing RAC) Organization Information: Site ID: RGA Name: [facility] Lab Address: [address] [place] [address] Director: Reno Khalil Lab Interpretation Abnormal (test code = 30629-3) [facility]2022-05-23 22:31:00 Test Item Value Reference Interpretation Comments Range Urine culture (test SEE NOTE A CULTURE , URINE, code = 630-4) ROUTINE Micro Number: [id number] Test Status: Fi nal Specimen Source [...] <=20 * VANCOM YCIN * S 1 S=Susceptible I=Intermediate R=Resistant * = Not TestedNR = Not Reported NN = See Therapy Comment s THERAPY COMMENT S Note 1: For infections othe r than uncomplica angelina UTI caused by E . coli, K. pneumo niae or P. mirabilis : Cefazolin is resistant if [place] C > or = 8 mcg/mL. (Distinguishing [...] RAC) Organization Information: Site ID: RGA Name: [facility] Address: [address] [place] [address] Director: Reno Khalil Lab Interpretation Abnormal (test code = 86344-0) [facility]ologist HospitalUrinalysis, automated with [id number] 22:31:00 Test Item Value Reference Range Interpretation Comments Color, UA (test YELLOW YELLOW code = 5778-6) Appearance (test CLEAR CLEAR code = 5767-9) Specific gravity, 1.010 1.001-1.035 urine (test code = 5811-5) pH, urine (test < OR = 5.0 5.0-8.0 code = 5803-2) Glucose, urine NEGATIVE NEGATIVE (test code = 13114-0) Bilirubin, UA NEGATIVE NEGATIVE (test code = 5770-3) Ketones, UA (test NEGATIVE NEGATIVE code = 2514-8) Occult blood, NEGATIVE NEGATIVE urine (test code = 5794-3) Protein, UA (test NEGATIVE NEGATIVE code = 63699-6) Nitrite, UA (test NEGATIVE NEGATIVE code = [...] (test NONE SEEN See_Comment [Automated code = 52197-8) message] The system which generated this result transmit angelina reference range : < OR = 2 /HPF. Th e reference range was not used to interpret this result as normal/abnormal . Squamous 0-5 See_Comment [Automated epithelial cells, message] T he UA (test code = system which 69338-0) generated this result transmit angelina reference range : < OR = 5 /HPF. Th e reference range was not used to interpret this result as normal/abnormal . Bacteria, UA NONE SEEN NONE SEEN /HPF (test code = 5769-5) Hyaline casts, UA NONE SEEN NONE SEEN /LPF (test code = 5796-8) RAC (test code = Performing RAC) Organization Information: Site ID: RGA [facility] Lab Address: [address] [place] [address] Director: Reno Khalil [facility] HospitalMicroalbumin / creatinine urine [id number] 22:31:00 Test Item Value Reference Range Interpretation Comments Creatinine, 64 mg/dL 20-275 urine (mg/dL) (test code = 2161-8) Microalbumin <0.2 See Note: mg/dL Reference Ra nge: , urine Reference Range Not (test code = established 94052-7) Microalbumin NOTE See_Comment NOTE: The urine albumin [...] patient to bewi thin a diagnostic devin gory. [Automated mess age] The system which ge nerated this result tra nsmitted reference range : <30 mcg/mg creat. T he reference range was not used to interpr et this result as normal/abnormal . RAC (test Performing code = RAC) Organization Information: Site ID: RGA Name: [facility] Lab Address: [address] [place] [address] Director: Reno Khalil [facility] [id number] 22:31:00 Test Item Value Reference Range Interpretation Comments Sjogren's SS-A >8.0 POS See_Comment A [Automated antibody (test code message] The = 72838-1) system which generated this result transmitted reference range : <1.0 NEG AI. Th e reference range was not used to interpret this result as normal/abnormal . RAC (test code = Performing RAC) Organization Information: Site ID: IG Name: [facility] Lab Address: [address] [place] [address] Director: Dr. Reno Khalil Lab Interpretation Abnormal (test code = 95744-1) [facility] [id number] 22:31:00 Test Item Value Reference Range Interpretation Comments Sjogren's SS-B <1.0 NEG See_Comment [Automated antibody (test message] The code = 21887-7) system which generated this result transmit angelina reference range : <1.0 NEG AI. Th e reference range was not used to interpret this result as normal/abnormal . RAC (test code = Performing RAC) Organization Information: Site ID: IG Name: [facility] Lab Address: [address] [place] [address] Director: Dr. Reno Khalil Scientologist [facility] reflex to [id number] 22:31:00 Test Item Value Reference Range Interpretation Comments TSH reflex to 1.52 See_Comment [Automated FT4 (test code message] The system = 3016-3) which generated this result transmitted reference range : 0.40 - 4.50 mIU /L. The reference r isabella was not used to interpret this result as normal/abnormal . RAC (test code Performing = RAC) Organization Information: Site ID: RGA [facility]: [facility] Lab Address: [address] [place] [address] Director: Reno Khalil Scientologist [facility] HospitalsANA SCREEN W IFA W REFLEX TO [id number] 22:31:00 Test Item Value Reference Interpretation Comments Range CLEVE Screen (test POSITIVE NEGATIVE A CLEVE IFA is a first code = 67496-2) line screen for detecting thepresence of up to approximately 1 50 autoantibodies invarious autoi mmune diseases. A pos itive CLEVE IFA resulti s suggestive of autoimmune dise ase and reflexes to titer and pattern. Fu rther laboratory test ing may beconsidere d if clinically indicated. For additional information, pl ease refer [email or web address] ion.Noosh .TuneIn/ faq/DIV321(This link is being provid ed for informational/e ducat ional purposes only.) CLEVE titer (test 1:640 titer H Reference R isabella code = 5048-4) <1:40 Negativ e 1:40-1:80 Low Antibody Level >1:80 Elevated Antibo dy Level CLEVE pattern (test Nuclear, Speckled A Speck led pattern is code = 83304-8) associated w ith mixed connectivetissu e disease (MCTD), systemic lupus erythematosus(S LE), Sjogren's syndr ome, dermatomyositis , and systemic sclerosis/polym yosit is overlap. AC-2,4,5,29: Speckled International Consensus on AN A Patterns(https: //doi .org/10.1515/cc lm-20 18-0052) RAC (test code = Performing RAC) Organization Information: Site ID: IG Name: [facility] Lab Address: [address] [place] [address] Director: Dr. Reno Khalil Lab Interpretation Abnormal (test code = 47981-4) [facility] HospitalVitamin B12 [id number] 22:31:00 Test Item Value Reference Range Interpretation Comments Vitamin B12 (test 744 pg/mL 200-1100 code = 2132-9) RAC (test code = Performing Organization RAC) Information: Site ID: BABATUNDE Name: [facility] Lab Address: [address] [place] [address] Director: Reno Khalil [facility] HospitalFerritin [id number] 22:31:00 Test Item Value Reference Range Interpretation Comments Ferritin level (test 107 ng/mL 16-288 code = 2276-4) RAC (test code = RAC) Performing Organization Information: Site ID: BABATUNDE Name: [facility] Lab Address: [address] [place] [address] Director: Reno Khalil [facility] HospitalFolate [id number] 22:31:00 Test Item Value Reference Range Interpretation Comments Folate (test 10.2 ng/mL Reference Rang e code = 2284-8) Low: <3.4 Borderline: 3.4-5.4 Normal : >5.4 RAC (test code Performing = RAC) Organization Information: Site ID: BABATUNDE Name: [facility] Lab Address: [address] [place] [address] Director: Reno Khalil [facility] HospitalHemoglobin [id number] 22:31:00 Test Item Value Reference Interpretation Comments Range Hemoglobin A1C 5.8 See_Comment H For someone w ithout (test code = known diabetes, a 4548-4) hemoglobin A1c value between 5.7% an d 6.4% is consist ent withprediabetes and should be confi rmed with a follow-u p test. For someo ne with known diab etes, a value <7%indicates that their diabetes is well controlled . G9fpkrpjnp shou ld be individualized based on duration [...] % of total Hgb. The reference r isabella was not used to interpret this result as normal/abnormal . RAC (test code = Performing RAC) Organization Information: Site ID: BABATUNDE Name: [facility] Lab Address: [address] [place] [address] Director: Reno Khalil Lab Interpretation Abnormal (test code = 49984-8) [facility] [id number] 22:31:00 Test Item Value Reference Range Interpretation Comments Iron level 94 See_Comment [Automated (test code = message] The sy stem 8718-4) which generated this result transmitted reference range : 45 - 160 mcg/dL. T he reference range was not used to interpret this result as normal/abnormal . RAC (test code Performing = RAC) Organization Information: Site ID: BABATUNDE Name: [facility] Lab Address: [address] [place] [address] Director: Reno Khalil [facility] HospitalMagnesium [id number] 22:31:00 Test Item Value Reference Range Interpretation Comments Magnesium (test code 2.0 mg/dL 1.5-2.5 = 45082-0) RAC (test code = RAC) Performing Organization Information: Site ID: BABATUNDE Name: [facility] Lab Address: [address] [place] [address] Director: Reno Khalil [facility] HospitalUric acid [id number] 22:31:00 Test Item Value Reference Range Interpretation Comments Uric acid (test code 1.8 mg/dL 2.5-7.0 L Therape utic = 3084-1) target for gout patients: <6.0 mg/dL RAC (test code = Performing RAC) Organization Information: Site ID: TAMARA Name: [facility] Lab Address: [address] [place] [address] Director: Reno Khalil Lab Interpretation Abnormal (test code = 98883-1) [facility] [id number] 22:31:00 Test Item Value Reference Interpretation Comments Range Urine culture (test SEE NOTE A CULTURE , URINE, code = 630-4) ROUTINE Micro Number: [id number] Test Status: Fi nal Specimen Source [...] P. mirabilis : Cefazolin is resistant if [place] C > or = 8 mcg/mL. (Distinguishing [...] = Performing RAC) Organization Information: Site ID: [facility] Name: [facility] on Lab Address: [address] [place] [address] Director: Reno Khalil Lab Interpretation Abnormal (test code = 08043-3) Scientologist HospitalUrinalysis, automated with [id number] 22:31:00 Test Item Value Reference Range Interpretation Comments Color, UA (test YELLOW YELLOW code = 5778-6) Appearance (test CLEAR CLEAR code = 5767-9) Specific gravity, 1.010 1.001-1.035 urine (test code = 5811-5) pH, urine (test < OR = 5.0 5.0-8.0 code = 5803-2) Glucose, urine NEGATIVE NEGATIVE (test code = 40742-8) Bilirubin, UA NEGATIVE NEGATIVE (test code = 5770-3) Ketones, UA (test NEGATIVE NEGATIVE code = 2514-8) Occult blood, NEGATIVE NEGATIVE urine (test code = 5794-3) Protein, UA (test NEGATIVE NEGATIVE code = 48352-3) Nitrite, UA (test NEGATIVE NEGATIVE code = [...] (test NONE SEEN See_Comment [Automated code = 61103-0) message] The system which generated this result transmit angelina reference range : < OR = 2 /HPF. Th e reference range was not used to interpret this result as normal/abnormal . Squamous 0-5 See_Comment [Automated epithelial cells, message] T he UA (test code = system which 52422-2) generated this result transmit angelina reference range : < OR = 5 /HPF. Th e reference range was not used to interpret this result as normal/abnormal . Bacteria, UA NONE SEEN NONE SEEN /HPF (test code = 5769-5) Hyaline casts, UA NONE SEEN NONE SEEN /LPF (test code = 5796-8) RAC (test code = Performing RAC) Organization Information: Site ID: RGA [facility]: [facility] Lab Address: [address] [place] [address] Director: Reno Khalil [facility] HospitalMicroalbumin / creatinine urine [id number] 22:31:00 Test Item Value Reference Range Interpretation Comments Creatinine, 64 mg/dL 20-275 urine (mg/dL) (test code = 2161-8) Microalbumin <0.2 See Note: mg/dL Reference Ra nge: , urine Reference Range Not (test code = established 66738-4) Microalbumin NOTE See_Comment NOTE: The urine albumin [...] patient to bewi thin a diagnostic devin denishay. [Automated mess age] The system which ge nerated this result tra nsmitted reference range : <30 mcg/mg creat. T he reference range was not used to interpr et this result as normal/abnormal . RAC (test Performing code = RAC) Organization Information: Site ID: RGA Name: [facility] Lab Address: [address] [place] [address] Director: Reno Khalil [facility] [id number] 22:31:00 Test Item Value Reference Range Interpretation Comments Sjogren's SS-A >8.0 POS See_Comment A [Automated antibody (test code message] The = 25571-7) system which generated this result transmitted reference range : <1.0 NEG AI. Th e reference range was not used to interpret this result as normal/abnormal . RAC (test code = Performing RAC) Organization Information: Site ID: IG Name: [facility] Lab Address: [address] [place] [address] Director: Dr. Reno Khalil Lab Interpretation Abnormal (test code = 80041-0) [facility] [id number] 22:31:00 Test Item Value Reference Range Interpretation Comments Sjogren's SS-B <1.0 NEG See_Comment [Automated antibody (test message] The code = 13973-1) system which generated this result transmit angelina reference range : <1.0 NEG AI. Th e reference range was not used to interpret this result as normal/abnormal . RAC (test code = Performing RAC) Organization Information: Site ID: IG [facility]: [facility] Lab Address: [address] [place] [address] Director: Dr. Reno Khalil [facility] reflex to [id number] 22:31:00 Test Item Value Reference Range Interpretation Comments TSH reflex to 1.52 See_Comment [Automated FT4 (test code message] The system = 3016-3) which generated this result transmitted reference range : 0.40 - 4.50 mIU /L. The reference r isabella was not used to interpret this result as normal/abnormal . RAC (test code Performing = RAC) Organization Information: Site ID: RGA Name: [facility] Lab Address: [address] [place] [address] Director: Reon Khalil Scientologist [facility] SCREEN W IFA W REFLEX TO [id number] 22:31:00 Test Item Value Reference Interpretation Comments Range CLEVE Screen (test POSITIVE NEGATIVE A CLEVE IFA is a first code = 14845-6) line screen for detecting thepresence of up to approximately 1 50 autoantibodies invarious autoi mmune diseases. A pos itive CLEVE IFA resulti s suggestive of autoimmune dise ase and reflexes to titer and pattern. Fu rther laboratory test ing may beconsidere d if clinically indicated. For additional information, pl ease refer [email or web address] ion.Noosh .TuneIn/ faq/FQO731(This link is being provid ed for informational/e ducat ional purposes only.) CLEVE titer (test 1:640 titer H Reference R isabella code = 5048-4) <1:40 Negativ e 1:40-1:80 Low Antibody Level >1:80 Elevated Antibo dy Level CLEVE pattern (test Nuclear, Speckled A Speck led pattern is code = 44469-2) associated w ith mixed connectivetissu e disease (MCTD), systemic lupus erythematosus(S LE), Sjogren's syndr ome, dermatomyositis , and systemic sclerosis/polym yosit is overlap. AC-2,4,5,29: Speckled International Consensus on AN A Patterns(https: //doi .org/10.1515/cc lm-20 18-0052) RAC (test code = Performing RAC) Organization Information: Site ID: IG Name: [facility] Lab Address: [address] [place] [address] Director: Dr. Reno Khalil Lab Interpretation Abnormal (test code = 98491-6) [facility] HospitalVitamin B12 [id number] 22:31:00 Test Item Value Reference Range Interpretation Comments Vitamin B12 (test 744 pg/mL 200-1100 code = 2132-9) RAC (test code = Performing Organization RAC) Information: Site ID: RGA Name: [facility] Lab Address: [address] [place] [address] Director: Reno Khalil [facility] HospitalFerritin [id number] 22:31:00 Test Item Value Reference Range Interpretation Comments Ferritin level (test 107 ng/mL 16-288 code = 2276-4) RAC (test code = RAC) Performing Organization Information: Site ID: RGA Name: [facility] Lab Address: [address] [place] [address] Director: Reno Khalil [facility] HospitalFolate [id number] 22:31:00 Test Item Value Reference Range Interpretation Comments Folate (test 10.2 ng/mL Reference Rang e code = 2284-8) Low: <3.4 Borderline: 3.4-5.4 Normal: >5.4 RAC (test code Performing = RAC) Organization Information: Site ID: RGA [facility]: [facility] Lab Address: [address] [place] [address] Director: Reno Khalil [facility] HospitalHemoglobin [id number] 22:31:00 Test Item Value Reference Interpretation Comments Range Hemoglobin A1C 5.8 See_Comment H For someone w ithout (test code = known diabetes, a 4548-4) hemoglobin A1c value between 5.7% an d 6.4% is consist ent withprediabetes and should be confi rmed with a follow-u p test. For someo ne with known diab etes, a value <7%indicates that their diabetes is well controlled . K2kvospetx shou ld be individualized based on duration [...] % of total Hgb. The reference r isabella was not used to interpret this result as normal/abnormal . RAC (test code = Performing RAC) Organization Information: Site ID: [facility] Name: [facility] Lab Address: [address] [place] [address] Director: Reno Khalil Lab Interpretation Abnormal (test code = 48147-6) [facility] [id number] 22:31:00 Test Item Value Reference Range Interpretation Comments Iron level 94 See_Comment [Automated (test code = message] The sy stem 2498-4) which generated this result transmitted reference range : 45 - 160 mcg/dL. T he reference range was not used to interpret this result as normal/abnormal . RAC (test code Performing = RAC) Organization Information: Site ID: [facility] Name: [facility] Lab Address: [address] [place] [address] Director: Reno Khalil Scientologist [facility]alsMagn[facility] [id number] 22:31:00 Test Item Value Reference Range Interpretation Comments Magnesium (test code 2.0 mg/dL 1.5-2.5 = 60389-7) RAC (test code = RAC) Performing Organization Information: Site ID: [facility] Name: [facility] Lab Address: [address] [place] [address] Director: Reno Khalil [facility] HospitalUric acid [id number] 22:31:00 Test Item Value Reference Range Interpretation Comments Uric acid (test code 1.8 mg/dL 2.5-7.0 L Therape utic = 3084-1) target for gout patients: <6.0 mg/dL RAC (test code = Performing RAC) Organization Information: Site ID: [facility] Name: [facility] Lab Address: [address] [place] [address] Director: Reno Khalil Lab Interpretation Abnormal (test code = 73740-4) [facility] [id number] 22:31:00 Test Item Value Reference Interpretation Comments Range Urine culture (test SEE NOTE A CULTURE , URINE, code = 630-4) ROUTINE Micro Number: [id number] Test Status: Fi nal Specimen Source : Urine Specimen Quality: [place] te Result: 50,000-100,000 CFU/mL of Escherichia col i Greater than 100,000 CFU/mL of Enterococcus faecalis E.coli E.faecalis - - INT HENRIK INT HENRIK AMOX/CLAVULANAT E S 4 * AMPICILLIN R >=32 R <=2 AMP/SULBACTAM I 16 * CEFAZOLIN NR <=4 2 * CEFEPIME S <=1 * CEFTRIAX ONE S <=1 * CIPROFLOXACIN S <=0.25 S 1 GENTAMICIN S <= [...] P. mirabilis : Cefazolin is resistant if [place] C > or = 8 mcg/mL. (Distinguishing [...] RAC) Organization Information: Site ID: RGA Name: [facility] Lab Address: [address] [place] [address] Director: Reno Khalil Lab Interpretation Abnormal (test code = 76671-9) [facility]ologistTrinitas HospitalUrinalysis, automated with [id number] 22:31:00 Test Item Value Reference Range Interpretation Comments Color, UA (test YELLOW YELLOW code = 5778-6) Appearance (test CLEAR CLEAR code = 5767-9) Specific gravity, 1.010 1.001-1.035 urine (test code = 5811-5) pH, urine (test < OR = 5.0 5.0-8.0 code = 5803-2) Glucose, urine NEGATIVE NEGATIVE (test code = 29764-2) Bilirubin, UA NEGATIVE NEGATIVE (test code = 5770-3) Ketones, UA (test NEGATIVE NEGATIVE code = 2514-8) Occult blood, NEGATIVE NEGATIVE urine (test code = 5794-3) Protein, UA (test NEGATIVE NEGATIVE code = 65395-6) Nitrite, UA (test NEGATIVE NEGATIVE code = [...] (test NONE SEEN See_Comment [Automated code = 79476-0) message] The system which generated this result transmit angelina reference range : < OR = 2 /HPF. Th e reference range was not used to interpret this result as normal/abnormal . Squamous 0-5 See_Comment [Automated epithelial cells, message] T he UA (test code = system which 86570-7) generated this result transmit angelina reference range : < OR = 5 /HPF. Th e reference range was not used to interpret this result as normal/abnormal . Bacteria, UA NONE SEEN NONE SEEN /HPF (test code = 5769-5) Hyaline casts, UA NONE SEEN NONE SEEN /LPF (test code = 5796-8) RAC (test code = Performing RAC) Organization Information: Site ID: RGA [facility]: [facility] Lab Address: [address] [place] [address] Director: Reno L Simran Scientologist JwdkkyhgWVCN-VhA-6 (COVID-19) RNA [Presence] in Respiratory specimen by AUDI with probe [id number] 23:17:11 Test Item Value Reference Range Interpretation Comments SARS-CoV-2 (COVID-19) RNA Not detected [Presence] in Respiratory specimen by AUDI with probe detection (test code = 11135-0) Whether patient is employed in a No healthcare setting (test code = 61773-1) Whether the patient has symptoms Yes related to condition of interest (test code = 80952-2) Whether the patient was No hospitalized for condition of interest (test code = 69720-1) Whether the patient was admitted No to intensive care unit (ICU) for condition of interest (test code = 35104-8) Whether patient resides in a Unknown congregate care setting (test code = 35168-8) status (test code = No 51551-8) Date and time of symptom onset Unknown (test code = 83362-0) [facility] LD LUNG CA [id number] 12:54:00 Name: JOYCE OVALLES [facility] : 1950 Age/S: 67 / F [address] [facility] Unit #: [id number] Loc: [place] [address] Phys: Adeel Johnson MD Acct: [id number] Dis Date: Status: REG CLI PHONE #: [phone] Exam Date: 07/02/2018 1108 FAX #: [phone] Reason: SCREENING EXAMS: CPT CODE: [id number] LD LUNG CA SCREENING [id number] HISTORY: Lung cancer screening. COMPARISON: None available. CT chest without contrast: Low-dose technique. Automated exposure control. [...] upper abdomen is grossly normal but limited inevaluation. Subcutaneous tissues and the musculature are within normal limits. No lytic or blastic lesions are noted within the bony skeleton. Old posterior lateral right upper rib fractures. IMPRESSION: The lungs are clear. No mass or lesions. Routine 12 month follow-up. FOR INTERNAL CODING PURPOSES ONLY RESULT CODE: L1 FOLLOW UP: L12 at 1254 Reported and signed by: Walter Armas M.D. CC: Fredi Corrales III, MD; Adeel Johnson MD Technologist:Mariela Tran RT(R),CT; CTDI: DLP: Trnscb Date/Time: 0 07/02/2018 (1254) [email or web address] Orig Print D/T: S: 07/02/2018 (1257) CTDI: DLP: PAGE 1 Signed Report
[2023-02-07] MEDS ORDERED: ONDANSETRON 4 MG/2 ML VIAL ONE (11:11)
[2023-02-07] MEDS ORDERED: HYDROMORPHONE HCL 1 MG/ML INJ ONE (11:11)
[2023-02-07 11:21] LABS: Absolute Lymphocytes (CBC) 1.1 K/uL (0.7-4.9); Hematocrit 35.3 % (36.0-45.0); MCV 86.6 fL (80-100); MPV 10.4 fL (7.6-11.3); Platelets 128 thou/uL (152-406); RBC Red Blood Cell Count 4.07 M/uL (3.86-4.86)
[2023-02-07 12:03] LABS: Albumin 2.8 g/dL (3.4-5.0); Bilirubin Total 0.7 mg/dL (0.2-1.0); Potassium 3.4 mEq/L (3.5-5.1); Protein, Total 7.5 g/dL (6.4-8.2)
--- NOTE | 2023-02-07 12:09 | RAD REPORT ---
EXAM DESCRIPTION: RAD - Chest Single View - 02/07/2023 11:25 am CLINICAL HISTORY: TRAUMA Chest pain. COMPARISON: Chest Single View dated 01/19/2017; Chest Single View dated 04/24/2016; CHEST SINGLE VIEW d ated 04/26/2009; CHEST SINGLE VIEW dated 01/01/2008 FINDINGS: Portable technique limits examination quality. Mild pulmonary edema is suspected. The heart is moderately enlarged in size. Dual lead pacer/ defibri llator device is present.Old right-sided posterior rib fractures are seen. There appears to be right distal clavicle fracture which has a chronic appearance. IMPRESSION: Mild CHF.
--- NOTE | 2023-02-07 12:10 | RAD REPORT ---
EXAM DESCRIPTION: RAD - Shoulder Right 2 View - 02/07/2023 11:24 am CLINICAL HISTORY: trauma COMPARISON: Shoulder Right 2 View dated 12/01/2016 FINDINGS: There is a fracture of the distal right clavicle with significant superior displacement of the clavicle. This appears to be a chronic injury as was present on a 2017 prior study. Glenohumeral arthritic changes are present.
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
--- NOTE | 2023-02-07 12:11 | ER ---
Nurse's Notes [facility] Name: Carolyn Piper Age: 72 yrs Sex: Female : 1950 Arrival Date: 02/07/2023 Time: 10:35 Bed 13 Private MD: Diagnosis: Cellulitis, sacral wound, acute on chronic pain Presentation: 02/07 10:53 Chief complaint: EMS states: pt was dropped by home health a couple of weeks ago and kc6 has increased pain to her left leg, right arm. Coronavirus screen: At this time, the client does not indicate any symptoms associated with coronavirus-19. Ebola Screen: No symptoms or risks identified at this time. Initial Sepsis Screen: Does the patient meet any 2 criteria? No. Patient's initial sepsis screen is negative. Does the patient have a suspected source of infection? No. Patient's initial sepsis screen is negative. Risk Assessment: Do you want to hurt yourself or someone else? Patient reports no desire to harm self or others. Onset of symptoms was February 07, 2023. 10:53 Method Of Arrival: EMS: [facility] kc6 10:53 Acuity: KUSHAL 3 kc6 Historical: - Allergies: 10:54 acyclovir; kc6 10:54 fameiclonir; kc6 10:54 Propafenone; kc6 10:54 Valtrex; kc6 - PMHx: 10:54 Anemia; Atrial Fib; blood clot; CHF; Chronic pain; CVA; Diabetes - IDDM; GI disease; kc6 Gout; Hyperlipidemia; Hypertension; liver failure; Lupus erythematosus; Renal Disease; sciatica; - PSHx: 10:54 left BKA (sciatica); kc6 - Immunization history:: Adult Immunizations unknown. - Social history:: Smoking status: unknown. Screenin:55 [facility] ED Fall Risk Assessment (Adult) History of falling in the last 3 months, kc6 including since admission Yes- single mechanical fall (1 pt) Confusion or Disorientation No (0 pts) Intoxicated or Sedated No (0 pts) Impaired Gait Yes (1 pt) Mobility Assist Device Used Yes (1 pt) Altered Elimination No (0 pt) Score/Fall Risk Level 0 - 2 = Low Risk. Abuse screen: Denies threats or abuse. Denies injuries from another. Nutritional screening: No deficits noted. Tuberculosis screening: No symptoms or risk factors identified. Assessment: 10:40 General: Appears in no apparent distress. uncomfortable, Behavior is cooperative, kc6 appropriate for age, restless. Pain: Complains of pain in buttocks, right arm and left leg Pain currently is 10 out of 10 on a pain scale. Neuro: Level of Consciousness is awake, alert, obeys commands, Oriented to person, place, time, situation, Appropriate for age. Cardiovascular: Capillary refill < 3 seconds. Respiratory: Airway is patent Trachea midline Respiratory effort is even, unlabored, Respiratory pattern is regular, symmetrical. GI: No signs and/or symptoms were reported involving the gastrointestinal system. : EENT: No signs and/or symptoms were reported regarding the EENT system. Derm: Skin is pink, warm \T\ dry. Wound noted buttocks and pelvis. Musculoskeletal: No signs and/or symptoms reported regarding the musculoskeletal system. Circulation, motion, and sensation intact. Capillary refill < 3 seconds. 11:40 Reassessment: Patient appears in no apparent distress at this time. No changes from kc6 previously documented assessment. Patient and/or family updated on plan of care and expected duration. Pain level reassessed. Patient is alert, oriented x 3, equal unlabored respirations, skin warm/dry/pink. 12:40 Reassessment: Patient appears in no apparent distress at this time. No changes from kc6 previously documented assessment. Patient and/or family updated on plan of care and expected duration. Pain level reassessed. Patient is alert, oriented x 3, equal unlabored respirations, skin warm/dry/pink. 13:40 Reassessment: Patient appears in no apparent distress at this time. No changes from kc6 previously documented assessment. Patient and/or family updated on plan of care and expected duration. Pain level reassessed. Patient is alert, oriented x 3, equal unlabored respirations, skin warm/dry/pink. 14:40 Reassessment: Patient appears in no apparent distress at this time. No changes from kc6 previously documented assessment. Patient and/or family updated on plan of care and expected duration. Pain level reassessed. Patient is alert, oriented x 3, equal unlabored respirations, skin warm/dry/pink. 15:20 Reassessment: please see [facility] for further charting. kc 16:21 Reassessment: attempted to call report to 4th floor. Nurse Sara unavailable at this [facility] time. 16:30 Reassessment: report given to YAKELIN Ruiz. [facility] Vital Signs: 10:53 BP 149 / 95; Pulse 85; Resp 16 S; Pulse Ox 100% on R/A; Weight 47.17 kg (M); Height 5 kc6 ft. 10 in. (R); Pain 10/10; 11:44 BP 142 / 80; Pulse 78; Resp 16 S; Pulse Ox 100% on R/A; kc6 12:00 BP 108 / 80; Pulse 88; Resp 16; Pulse Ox 100% ; db 12:40 BP 117 / 87; Pulse 66; Resp 17 S; Pulse Ox 100% on R/A; kc6 14:24 BP 154 / 88; Pulse 58; Resp 17 S; Pulse Ox 95% on R/A; kc6 15:20 BP 121 / 63; Pulse 73; Resp 16 S; Pulse Ox 100% on R/A; kc6 10:53 Body Mass Index 14.92 (47.17 kg, 177.8 cm) kc6 10:53 Pain Scale: Adult kc ED Course: 10:39 Patient arrived in ED. sp3 10:39 Lana Ricci MD is Attending Physician. sp3 10:53 Mirna Sampson RN is Primary Nurse. kc6 10:54 Triage completed. kc6 10:54 Arm band placed on. kc6 10:55 Patient has correct armband on for positive identification. Bed in low position. Call [facility] light in reach. Side rails up X2. Client placed on continuous cardiac and pulse oximetry monitoring. NIBP monitoring applied. 10:55 Maintain EMS IV. Dressing intact. Good blood return noted. Site clean \T\ dry. Gauge \T\ yusef 6 site: 22G LAC. Patient maintains SpO2 saturation greater than 95% on room air. 11:26 Shoulder Right (2 View) XRAY In Process Unspecified. EDMS 11:26 CXR XRAY In Process Unspecified. EDMS 11:29 CT C Spine In Process Unspecified. EDMS 12:09 Johnathan Wisdom is Hospitalizing Provider. sp3 15:20 No provider procedures requiring assistance completed. Patient admitted, IV remains in kc6 place. Administered Medications: 11:15 Drug: HYDROmorphone IVP 1 mg IVP once Route: IVP; Site: left antecubital; kc6 11:45 Follow up: Response: No adverse reaction; Pain is decreased; RASS: Alert and Calm (0) kc6 11:15 Drug: Ondansetron IVP 4 mg IVP once; over 2 minutes Route: IVP; Site: left antecubital; kc6 11:45 Follow up: Response: No adverse reaction kc6 Medication: 15:20 VIS not applicable for this client. kc6 Outcome: 12:10 Decision to Hospitalize by Provider. sp3 15:20 Admitted to ER Hold. Please see [facility] for further documentation. kc6 15:20 Condition: stable 15:20 Instructed on the need for admit, 16:53 Patient left the ED. kc6 Signatures: Dispatcher [employer] EDMS Lana Ricci MD MD sp3 Mirna Sampson RN RN kc6 Sydni Guerrero RN RN db
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
[2023-02-07 17:14] LABS: Specific Gravity 1.018 (1.005-1.030); Urine Bacteria None Seen /HPF (<20); Urine Bilirubin NEGATIVE (Negative); Urine Blood Negative (Negative); Urine Clarity Extremely Turbid (Clear); Urine Color Yellow (Yellow); Urine Glucose NEGATIVE (Negative); Urine Mucus Slight /HPF (None Seen); Urine Protein 1+ (Negative); Urine RBC <5 /HPF (None Seen); Urine Urobilinogen Normal (Normal); Urine pH 5.5 (5.0-7.0)
[2023-02-07] MEDS: ENOXAPARIN 40 MG/0.4 ML SQ SCH (18:05)
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
[2023-02-07] MEDS ORDERED: ONDANSETRON 4 MG/2 ML VIAL IV PRN (20:03)
[2023-02-07] MEDS: HYDROMORPHONE HCL 0.5 MG/0.5 ML INJ IV PRN (20:41)
[2023-02-07] MEDS: DIPHENHYDRAMINE 25 MG TAB/CAP PO PRN (20:44)
[2023-02-08] MEDS: HYDROMORPHONE HCL 0.5 MG/0.5 ML INJ IV PRN ×5 (04:44→22:40)
[2023-02-08 06:37] LABS: Absolute Lymphocytes (CBC) 1.1 K/uL (0.7-4.9); Hematocrit 32.4 % (36.0-45.0); Lymphocytes % 16.1 % (15.3-44.8); MCV 86.7 fL (80-100); MPV 10.1 fL (7.6-11.3); Platelets 109 thou/uL (152-406); RBC Red Blood Cell Count 3.73 M/uL (3.86-4.86)
[2023-02-08 06:44] LABS: Magnesium 1.5 mg/dL (1.6-2.4); Phosphorus 2.3 mg/dL (2.5-4.9); Potassium 3.3 mEq/L (3.5-5.1)
[2023-02-08] MEDS ORDERED: POTASSIUM CL SA 10 MEQ TAB PO ONE (07:31)
[2023-02-08] MEDS ORDERED: Magnesium Sulfate 2gm IVPB 2 G/50 ML BAG IV ONE (07:32)
[2023-02-08] MEDS: ENOXAPARIN 40 MG/0.4 ML SQ SCH (08:49)
[2023-02-08] MEDS: DIPHENHYDRAMINE 25 MG TAB/CAP PO PRN ×2 (08:49→21:06)
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
[2023-02-08] MEDS: GABAPENTIN 300 MG CAP PO SCH ×2 (17:01→21:06)
[2023-02-08] MEDS ORDERED: POTASSIUM 25 MEQ EFFERV TAB PO ONE (19:56)
[2023-02-08] MEDS ORDERED: HOME MED 1 EA UNK (Spironolactone [Spironolactone] 50 MG Tablet) PO SCH (21:00)
[2023-02-08] MEDS: ENSURE HIGH PROTEIN 237 ML CAN PO SCH (21:00)
[2023-02-08] MEDS: JUVEN PACKET PO SCH (21:00)
[2023-02-08] MEDS: POTASS/SODIUM PHOSPHATE 1 PKT POWD.PACK PO SCH ×3 (21:05→22:40)
[2023-02-08] MEDS: SPIRONOLACTONE 25 MG TABLET PO SCH (21:06)
[2023-02-08] MEDS: MONTELUKAST 10 MG TAB PO SCH (21:07)
[2023-02-09 03:32] LABS: Absolute Lymphocytes (CBC) 0.9 K/uL (0.7-4.9); Hematocrit 32.3 % (36.0-45.0); Lymphocytes % 15.4 % (15.3-44.8); MPV 10.3 fL (7.6-11.3); Platelets 116 thou/uL (152-406); RBC Red Blood Cell Count 3.75 M/uL (3.86-4.86)
[2023-02-09 03:43] LABS: Potassium 5.5 mEq/L (3.5-5.1)
[2023-02-09] MEDS: HYDROMORPHONE HCL 0.5 MG/0.5 ML INJ IV PRN ×5 (03:45→22:33)
[2023-02-09] MEDS: SPIRONOLACTONE 25 MG TABLET PO SCH ×2 (08:16→20:12)
[2023-02-09] MEDS: ENSURE HIGH PROTEIN 237 ML CAN PO SCH ×2 (08:17→20:12)
[2023-02-09] MEDS: ENOXAPARIN 40 MG/0.4 ML SQ SCH (08:17)
[2023-02-09] MEDS: METOPROLOL TAR 50 MG TAB PO SCH (08:17)
[2023-02-09] MEDS: JUVEN PACKET PO SCH ×2 (08:17→20:12)
[2023-02-09] MEDS: PANTOPRAZOLE 40MG TABLET PO SCH (08:17)
[2023-02-09] MEDS: HYDROXYCHLOROQUINE 200MG TAB PO SCH (08:17)
[2023-02-09] MEDS: GABAPENTIN 300 MG CAP PO SCH ×3 (08:17→20:12)
[2023-02-09] MEDS: BUMETANIDE 1 MG TABLET PO SCH (08:17)
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
[2023-02-09] MEDS: DIPHENHYDRAMINE 25 MG TAB/CAP PO PRN (20:11)
[2023-02-09] MEDS: MONTELUKAST 10 MG TAB PO SCH (20:12)
[2023-02-10] MEDS: HYDROMORPHONE HCL 0.5 MG/0.5 ML INJ IV PRN ×4 (02:18→20:23)
[2023-02-10] MEDS: METOPROLOL TAR 50 MG TAB PO SCH (08:31)
[2023-02-10] MEDS: GABAPENTIN 300 MG CAP PO SCH ×3 (08:31→20:22)
[2023-02-10] MEDS: ENOXAPARIN 40 MG/0.4 ML SQ SCH (08:31)
[2023-02-10] MEDS: MONTELUKAST 10 MG TAB PO SCH (08:32)
[2023-02-10] MEDS: DIPHENHYDRAMINE 25 MG TAB/CAP PO PRN (08:32)
[2023-02-10] MEDS: BUMETANIDE 1 MG TABLET PO SCH (08:32)
[2023-02-10] MEDS: HYDROXYCHLOROQUINE 200MG TAB PO SCH (08:34)
[2023-02-10] MEDS: JUVEN PACKET PO SCH ×2 (09:00→20:24)
[2023-02-10] MEDS: ENSURE HIGH PROTEIN 237 ML CAN PO SCH ×2 (09:00→20:24)
[2023-02-10] MEDS: PANTOPRAZOLE 40MG TABLET PO SCH (09:00)
[2023-02-10] MEDS: SPIRONOLACTONE 25 MG TABLET PO SCH (09:00)
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
[2023-02-10 18:07] LABS: C.diff Antigen/Toxin Ag neg : Tox neg (NEG : NEG)
[2023-02-11] MEDS: HYDROMORPHONE HCL 0.5 MG/0.5 ML INJ IV PRN ×5 (01:04→20:28)
[2023-02-11 05:15] LABS: Potassium 4.9 mEq/L (3.5-5.1)
[2023-02-11] MEDS: ENOXAPARIN 40 MG/0.4 ML SQ SCH (08:35)
[2023-02-11] MEDS: MONTELUKAST 10 MG TAB PO SCH (08:36)
[2023-02-11] MEDS: GABAPENTIN 300 MG CAP PO SCH ×3 (08:36→20:27)
[2023-02-11] MEDS: BUMETANIDE 1 MG TABLET PO SCH (08:36)
[2023-02-11] MEDS: HYDROXYCHLOROQUINE 200MG TAB PO SCH (08:36)
[2023-02-11] MEDS: DIPHENHYDRAMINE 25 MG TAB/CAP PO PRN (08:36)
[2023-02-11] MEDS: METOPROLOL TAR 50 MG TAB PO SCH (08:36)
[2023-02-11] MEDS: ENSURE HIGH PROTEIN 237 ML CAN PO SCH ×2 (09:00→20:29)
[2023-02-11] MEDS: JUVEN PACKET PO SCH ×2 (09:00→20:29)
[2023-02-11] MEDS: PANTOPRAZOLE 40MG TABLET PO SCH (10:42)
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
[2023-02-11] MEDS ORDERED: LOPERAMIDE HCL 2 MG CAPSULE PO PRN (15:01)
[2023-02-12] MEDS: HYDROMORPHONE HCL 0.5 MG/0.5 ML INJ IV PRN ×5 (04:13→22:14)
[2023-02-12] MEDS: BUMETANIDE 1 MG TABLET PO SCH (08:12)
[2023-02-12] MEDS: HYDROXYCHLOROQUINE 200MG TAB PO SCH (08:13)
[2023-02-12] MEDS: PANTOPRAZOLE 40MG TABLET PO SCH (08:13)
[2023-02-12] MEDS: METOPROLOL TAR 50 MG TAB PO SCH (08:13)
[2023-02-12] MEDS: ENOXAPARIN 40 MG/0.4 ML SQ SCH (08:13)
[2023-02-12] MEDS: GABAPENTIN 300 MG CAP PO SCH ×3 (08:13→20:06)
[2023-02-12] MEDS: JUVEN PACKET PO SCH ×2 (08:17→20:06)
[2023-02-12] MEDS: ENSURE HIGH PROTEIN 237 ML CAN PO SCH ×2 (08:17→20:06)
[2023-02-12 09:59] LABS: Magnesium 1.4 mg/dL (1.6-2.4); Phosphorus 2.5 mg/dL (2.5-4.9); Potassium 4.8 mEq/L (3.5-5.1)
[2023-02-12] MEDS ORDERED: Magnesium Sulfate 2gm IVPB 2 G/50 ML BAG IV ONE (10:02)
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
[2023-02-12] MEDS: MONTELUKAST 10 MG TAB PO SCH (20:06)
[2023-02-13] MEDS: HYDROMORPHONE HCL 0.5 MG/0.5 ML INJ IV PRN ×6 (02:31→23:35)
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
[2023-02-13] MEDS: PANTOPRAZOLE 40MG TABLET PO SCH (08:03)
[2023-02-13] MEDS: HYDROXYCHLOROQUINE 200MG TAB PO SCH (08:03)
[2023-02-13] MEDS: GABAPENTIN 300 MG CAP PO SCH ×3 (08:03→20:24)
[2023-02-13] MEDS: ENOXAPARIN 40 MG/0.4 ML SQ SCH (08:03)
[2023-02-13] MEDS: BUMETANIDE 1 MG TABLET PO SCH (08:03)
[2023-02-13] MEDS: METOPROLOL TAR 50 MG TAB PO SCH (08:04)
[2023-02-13] MEDS: ENSURE HIGH PROTEIN 237 ML CAN PO SCH ×2 (08:05→20:25)
[2023-02-13] MEDS: JUVEN PACKET PO SCH ×2 (08:05→20:25)
[2023-02-13] MEDS: DIPHENHYDRAMINE 25 MG TAB/CAP PO PRN (08:10)
[2023-02-13 10:18] LABS: Potassium 4.9 mEq/L (3.5-5.1)
[2023-02-13 10:29] LABS: Absolute Lymphocytes (CBC) 1.3 K/uL (0.7-4.9); Lymphocytes % 18.9 % (15.3-44.8); MCV 85.8 fL (80-100); MPV 10.8 fL (7.6-11.3); Platelets 135 thou/uL (152-406); RBC Red Blood Cell Count 4.08 M/uL (3.86-4.86)
[2023-02-13] MEDS: MONTELUKAST 10 MG TAB PO SCH (20:24)
[2023-02-13] MEDS: ZINC OXIDE 20% OINTMENT 60gm TOP SCH (20:26)
[2023-02-14] MEDS ORDERED: NA CHLORIDE 0.9% 100 ML ONE (01:11)
[2023-02-14] MEDS: HYDROMORPHONE HCL 0.5 MG/0.5 ML INJ IV PRN ×5 (04:11→22:12)
[2023-02-14 06:40] LABS: Absolute Lymphocytes (CBC) 1.5 K/uL (0.7-4.9); Hematocrit 34.9 % (36.0-45.0); Lymphocytes % 22.9 % (15.3-44.8); MCV 85.9 fL (80-100); MPV 10.6 fL (7.6-11.3); Platelets 141 thou/uL (152-406); RBC Red Blood Cell Count 4.06 M/uL (3.86-4.86)
[2023-02-14 06:57] LABS: Magnesium 1.8 mg/dL (1.6-2.4); Potassium 4.2 mEq/L (3.5-5.1)
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
[2023-02-14] MEDS: ZINC OXIDE 20% OINTMENT 60gm TOP SCH ×2 (08:05→22:15)
[2023-02-14] MEDS: METOPROLOL TAR 50 MG TAB PO SCH (08:05)
[2023-02-14] MEDS: HYDROXYCHLOROQUINE 200MG TAB PO SCH (08:06)
[2023-02-14] MEDS: GABAPENTIN 300 MG CAP PO SCH ×3 (08:06→22:14)
[2023-02-14] MEDS: PANTOPRAZOLE 40MG TABLET PO SCH (08:06)
[2023-02-14] MEDS: ENOXAPARIN 30 MG/0.3 ML SQ SCH (08:06)
[2023-02-14] MEDS: JUVEN PACKET PO SCH ×2 (08:07→21:00)
[2023-02-14] MEDS: ENSURE HIGH PROTEIN 237 ML CAN PO SCH ×2 (08:07→21:00)
[2023-02-14] MEDS ORDERED: MAGNESIUM SULFATE 1 gm IVPB 1 GM/100 ML BAG IV ONE (09:00)
[2023-02-14] MEDS ORDERED: FLUCONAZOLE 100 MG TAB PO ONE (09:10)
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
[2023-02-14] MEDS: SILVER SULFADIAZINE 1% 25 GM TOP SCH ×2 (17:08→22:14)
[2023-02-14] MEDS: NYSTATIN PWDR 100000 UNIT/GM TOP SCH (22:00)
[2023-02-14] MEDS: MONTELUKAST 10 MG TAB PO SCH (22:14)
[2023-02-14] MEDS: DIPHENHYDRAMINE 25 MG TAB/CAP PO PRN (22:16)
[2023-02-15] MEDS: HYDROMORPHONE HCL 0.5 MG/0.5 ML INJ IV PRN (03:12)
[2023-02-15 06:49] LABS: Hematocrit 36.1 % (36.0-45.0); Lymphocytes % 18.4 % (15.3-44.8); MCV 85.9 fL (80-100); MPV 10.8 fL (7.6-11.3); Platelets 142 thou/uL (152-406); RBC Red Blood Cell Count 4.21 M/uL (3.86-4.86)
[2023-02-15 06:50] LABS: Absolute Lymphocytes (CBC) 1.4 K/uL (0.7-4.9)
[2023-02-15 07:07] LABS: Magnesium 2.2 mg/dL (1.6-2.4); Phosphorus 2.5 mg/dL (2.5-4.9); Potassium 4.2 mEq/L (3.5-5.1)
[2023-02-15] MEDS: FLUCONAZOLE 100 MG TAB PO SCH (08:10)
[2023-02-15] MEDS: HYDROCODONE/APAP 5/325 MG TAB PO PRN ×2 (08:10→14:42)
[2023-02-15] MEDS: HYDROXYCHLOROQUINE 200MG TAB PO SCH (08:11)
[2023-02-15] MEDS: GABAPENTIN 300 MG CAP PO SCH ×3 (08:11→20:22)
[2023-02-15] MEDS: ENOXAPARIN 30 MG/0.3 ML SQ SCH (08:11)
[2023-02-15] MEDS: METOPROLOL TAR 50 MG TAB PO SCH (08:11)
[2023-02-15] MEDS: PANTOPRAZOLE 40MG TABLET PO SCH (08:11)
[2023-02-15] MEDS: SILVER SULFADIAZINE 1% 25 GM TOP SCH (08:12)
[2023-02-15] MEDS: JUVEN PACKET PO SCH ×2 (08:12→20:23)
[2023-02-15] MEDS: ZINC OXIDE 20% OINTMENT 60gm TOP SCH ×2 (08:12→20:24)
[2023-02-15] MEDS: ENSURE HIGH PROTEIN 237 ML CAN PO SCH ×2 (08:12→20:22)
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
--- NOTE | 2023-02-15 10:39 | P.PN ---
Date of Service: 02/15/23 Vital Signs Temp Pulse Resp BP Pulse Ox 97.6 F 106 H 17 140/77 99 02/15/23 08:00 02/15/23 08:11 02/15/23 08:00 02/15/23 08:11 02/15/23 08:00 Medications Hydrocodone Bitart/Acetaminophen (Hydrocodone/Apap 5/325 Mg Tab) 1 tab PO Q6H PRN PRN Reason: Pain scale 5-7 (Moderate) Last Admin: 02/15/23 08:10 Dose: 1 tab Bumetanide (Bumetanide 1 Mg Tablet) 2 mg PO DAILY [facility] Last Admin: 02/13/23 08:03 Dose: 2 mg Diphenhydramine HCl (Diphenhydramine 25 Mg Tab/Cap) 25 mg PO Q6H PRN PRN Reason: ITCHING Last Admin: 02/14/23 22:16 Dose: 25 mg Enoxaparin Sodium (Enoxaparin 30 Mg/0.3 Ml) 30 mg SQ DAILY [facility] Last Admin: 02/15/23 08:11 Dose: 30 mg Fluconazole (Fluconazole 100 Mg Tab) 100 mg PO DAILY [facility]; Protocol Last Admin: 02/15/23 08:10 Dose: 100 mg Gabapentin (Gabapentin 300 Mg Cap) 300 mg PO TID [facility] Last Admin: 02/15/23 08:11 Dose: 300 mg Hydroxychloroquine Sulfate (Hydroxychloroquine 200mg Tab) 200 mg PO DAILY [facility] Last Admin: 02/15/23 08:11 Dose: 200 mg L-Arginine/L-Glutamine/HMB (Humble Packet) 1 pkt PO BID [facility] Last Admin: 02/15/23 08:12 Dose: 1 pkt Loperamide HCl (Loperamide Hcl 2 Mg Capsule) 2 mg PO Q8H PRN PRN Reason: DIARRHEA Last Admin: 02/11/23 15:12 Dose: 2 mg Metoprolol Tartrate (Metoprolol Tar 50 Mg Tab) 50 mg PO DAILY [facility] Last Admin: 02/15/23 08:11 Dose: 50 mg Montelukast Sodium (Montelukast 10 Mg Tab) 10 mg PO BEDTIME [facility] Last Admin: 02/14/23 22:14 Dose: 10 mg Nutritional Formula (Ensure High Protein 237 Ml Can) 237 ml PO BID [facility] Last Admin: 02/15/23 08:12 Dose: 237 ml Nystatin (Nystatin Pwdr 260217 Unit/Gm) 1 appl TOP BID [facility] Last Admin: 02/14/23 22:00 Dose: Not Given Ondansetron HCl (Ondansetron 4 Mg/2 Ml Vial) 4 mg IV Q4H PRN PRN Reason: NAUSEA / VOMITING Last Admin: 02/07/23 20:41 Dose: 4 mg Pantoprazole Sodium (Pantoprazole 40mg Tablet) 40 mg PO DAILY [facility]; Protocol Last Admin: 02/15/23 08:11 Dose: 40 mg Silver Sulfadiazine (Silver Sulfadiazine 1% 25 Gm) 1 appl TOP BID [facility] Last Admin: 02/15/23 08:12 Dose: 1 appl Spironolactone (Spironolactone 25 Mg Tablet) 50 mg PO BID [facility] Last Admin: 02/10/23 09:00 Dose: 50 mg Zinc Oxide (Zinc Oxide 20% Ointment 60gm) 1 appl TOP BID [facility] Last Admin: 02/15/23 08:12 Dose: 1 appl Assessment/ Plan: Nephrology No dyspnea No chest pain Nausea with anorexia Rash with pain No acute events overnight Vitals, medications, blood work and imaging reviewed in the chart General: In no apparent distress, Oriented x3, Cooperative HEENT: Atraumatic. DMM Neck: Supple Respiratory: Clear to auscultation bilaterally Cardiovascular: No edema, Regular rate/rhythm Gastrointestinal: Soft and benign, Non-distended Musculoskeletal: No clubbing, No contractures, Other (Left BKA) Integumentary: No cyanosis, Rash(es), Skin breakdown Neurological: Normal speech Blood work reviewed in the chart. Imagings Data: EXAM DESCRIPTION: RAD - Chest Single View - 02/07/2023 11:25 am CLINICAL HISTORY: TRAUMA Chest pain. COMPARISON: Chest Single View dated 01/19/2017; Chest Single View dated 04/24/2016; CHEST SINGLE VIEW dated 04/26/2009; CHEST SINGLE VIEW dated 01/01/2008 FINDINGS: Portable technique limits examination quality. Mild pulmonary edema is suspected. The heart is moderately enlarged in size. Dual lead pacer/ defibrillator device is present.Old right-sided posterior rib fractures are seen. There appears to be right distal clavicle fracture which has a chronic appearance. IMPRESSION: Mild CHF. Conclusions/Impression: Stage II JUAREZ likely due to hypovolemia CKD II with Proteinuria -No NSAIDs -Hold diuretics at this time -NS X1 Liter Hyponatremia -Monitor level -NS X1 liter Hyperkalemia, resolved Hypomagnesemia, resolved HTN with CKD/ CHF -Continue Metoprolol Diastolic CHF, chronic -Daily weight -Hold diuretics at this time DM II with CKD & Polyneuropathy -No sugar diet Anemia in chronic illness Thrombocytopenia -Monitor CBC Severe Tinea Cruris -Diflucan PO -Topical antifungal -Wound care/ barrier cream as ordered Case reviewed with Dr. Reich
[2023-02-15] MEDS ORDERED: NA CHLORIDE 0.9% 1,000 ML IV SCH (11:00)
[2023-02-15] MEDS: NYSTATIN PWDR 100000 UNIT/GM TOP SCH ×2 (11:25→20:24)
[2023-02-15 12:49] VITALS: BMI 14.8
[2023-02-15 13:55] VITALS: O2SAT 96
--- NOTE | 2023-02-15 15:55 | RAD REPORT ---
EXAM DESCRIPTION: CT - Abdomen Pelvis Wo Contrast - 02/15/2023 3:22 pm CLINICAL HISTORY: Abdominal pain. Possible rectovaginal fistula COMPARISON: December 2022 TECHNIQUE: Computed axial tomography of the abdomen and pelvis was obtained. IV contrast not request ed. Oral contrast given. Contrast enters the left colon rectum. All CT scans are performed using dose optimization technique as appropriate and may include automated exposure control or mA/KV adjustment according to patient size. FINDINGS: The evaluation of solid organs and vesselsis limited secondary to the lack of contrast ad ministration. The liver, spleen, pancreas, right adrenal kidneys appear grossly normal. Small left adrenal adenoma unchanged Story catheter within the bladder. Hysterectomy. No evidence of diverticulitis. No contrast within the vagina. . Small amount of air within the vagina has diminished since the prior exam. No perirectal abscess. No perineum abscess. No stranding adjacent to the vagina Postsurgical changes involve the spine IMPRESSION: Small amount of air within the vagina has diminished since the prior exam. It probably i s not significant. No significant evidence of a rectovaginal fistula
[2023-02-15] MEDS: HYDROCODONE/APAP 7.5/325 MG TAB PO PRN (20:22)
[2023-02-15] MEDS: MONTELUKAST 10 MG TAB PO SCH (20:22)
[2023-02-15] MEDS: SILVER SULFADIAZINE 1% 50 GM TOP SCH (20:24)
[2023-02-16] MEDS: HYDROCODONE/APAP 7.5/325 MG TAB PO PRN (02:09)
[2023-02-16] MEDS: DIPHENHYDRAMINE 25 MG TAB/CAP PO PRN (03:05)
[2023-02-16 07:48] LABS: Albumin 2.7 g/dL (3.4-5.0); Bilirubin Total 0.4 mg/dL (0.2-1.0); Magnesium 2.1 mg/dL (1.6-2.4); Phosphorus 2.1 mg/dL (2.5-4.9); Potassium 4.5 mEq/L (3.5-5.1); Protein, Total 7.3 g/dL (6.4-8.2); Uric Acid 7.1 mg/dL (2.6-6.0)
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
[2023-02-16] MEDS: SILVER SULFADIAZINE 1% 50 GM TOP SCH ×2 (09:00→21:55)
[2023-02-16] MEDS: METOPROLOL TAR 50 MG TAB PO SCH (09:48)
[2023-02-16] MEDS: GABAPENTIN 300 MG CAP PO SCH ×3 (09:49→21:55)
[2023-02-16] MEDS: PANTOPRAZOLE 40MG TABLET PO SCH (09:49)
[2023-02-16] MEDS: HYDROCODONE/APAP 10/325 TAB PO PRN ×2 (09:49→18:21)
[2023-02-16] MEDS: HYDROXYCHLOROQUINE 200MG TAB PO SCH (09:50)
[2023-02-16] MEDS: ENOXAPARIN 30 MG/0.3 ML SQ SCH (09:50)
[2023-02-16] MEDS: POTASS/SODIUM PHOSPHATE 1 PKT POWD.PACK PO SCH ×3 (09:50→11:54)
[2023-02-16] MEDS: JUVEN PACKET PO SCH ×2 (09:53→22:01)
[2023-02-16] MEDS: ZINC OXIDE 20% OINTMENT 60gm TOP SCH ×2 (09:54→21:57)
[2023-02-16] MEDS: ENSURE HIGH PROTEIN 237 ML CAN PO SCH ×2 (09:54→21:55)
[2023-02-16] MEDS: NYSTATIN PWDR 100000 UNIT/GM TOP SCH ×2 (09:55→21:56)
[2023-02-16] MEDS: FLUCONAZOLE 100 MG TAB PO SCH (09:56)
--- NOTE | 2023-02-16 11:42 | P.PN ---
Nephrology (S) Pt seen sitting in recliner, no dyspnea or CP reported. Reports dry mouth, no nausea (O) Vitals, medications, blood work and imaging reviewed in the chart General: Elderly, frail, NAD HEENT: Atraumatic. Dry oral mucosa, not on o2 Neck: Supple Respiratory: b/l air entry without rhonchi Cardiovascular: No current LT edema, Regular rate/rhythm mostly Gastrointestinal: Soft and benign, Non-distended Musculoskeletal: Muscle mass loss, Other (Left BKA) Integumentary: See description elsewhere of wounds Neurological: awake, alert, no tremors Blood work reviewed in the chart. Imagings Data: EXAM DESCRIPTION: RAD - Chest Single View - 02/07/2023 11:25 am CLINICAL HISTORY: TRAUMA Chest pain. COMPARISON: Chest Single View dated 01/19/2017; Chest Single View dated 04/24/2016; CHEST SINGLE VIEW dated 04/26/2009; CHEST SINGLE VIEW dated 01/01/2008 FINDINGS: Portable technique limits examination quality. Mild pulmonary edema is suspected. The heart is moderately enlarged in size. Dual lead pacer/ defibrillator device is present.Old right-sided posterior rib fractures are seen. There appears to be right distal clavicle fracture which has a chronic appearance. IMPRESSION: Mild CHF. Conclusions/Impression: Stage 1 JUAREZ, hx of freq JUAREZ (pre-renal, or other episodes) in the past, underlying CKD NOS (renal imaging unremarkable on recent CT) -Current renal function stable, diuretics on hold Hyperkalemia, resolved -Spironolactone 50 mg BID appropriately on hold, will d/c as I do not see any indication for such a large dose HTN with CKD -BP not elevated currently Diastolic CHF, chronic -No signs of current fluid overload -Maintenance diuretics on hold and when loop diuretics resumed, recommend a lower dose Jeramy Edwards MD, [facility]
[2023-02-16] MEDS: MONTELUKAST 10 MG TAB PO SCH (22:01)
[2023-02-17] MEDS: DIPHENHYDRAMINE 25 MG TAB/CAP PO PRN ×2 (05:59→21:27)
[2023-02-17] MEDS: HYDROCODONE/APAP 10/325 TAB PO PRN ×3 (05:59→22:03)
[2023-02-17 07:00] LABS: Albumin 2.8 g/dL (3.4-5.0); Phosphorus 2.1 mg/dL (2.5-4.9); Potassium 5.2 mEq/L (3.5-5.1)
[2023-02-17] MEDS: FLUCONAZOLE 100 MG TAB PO SCH (07:55)
[2023-02-17] MEDS: GABAPENTIN 300 MG CAP PO SCH ×3 (07:56→21:27)
[2023-02-17] MEDS: PANTOPRAZOLE 40MG TABLET PO SCH (07:56)
[2023-02-17] MEDS: HYDROXYCHLOROQUINE 200MG TAB PO SCH (07:56)
[2023-02-17] MEDS: SILVER SULFADIAZINE 1% 50 GM TOP SCH ×2 (08:00→21:28)
[2023-02-17] MEDS: JUVEN PACKET PO SCH ×2 (08:00→21:00)
[2023-02-17] MEDS: ENSURE HIGH PROTEIN 237 ML CAN PO SCH ×2 (08:00→21:00)
[2023-02-17] MEDS: ENOXAPARIN 30 MG/0.3 ML SQ SCH (08:01)
[2023-02-17] MEDS: NYSTATIN PWDR 100000 UNIT/GM TOP SCH ×2 (08:01→21:27)
[2023-02-17] MEDS: ZINC OXIDE 20% OINTMENT 60gm TOP SCH ×2 (08:02→21:28)
[2023-02-17] MEDS: METOPROLOL TAR 50 MG TAB PO SCH (09:00)
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
--- NOTE | 2023-02-17 11:48 | CON ---
Date of Consultation: 02/15/2023 Brief History Of Present Illness: The patient is a 72-year-old female known to me from previous admi ssion whereby she was admitted to the hospital with wounds of her sacrum and tailbone area at that po int. She was recently admitted on 02/07/2023 with generalized body aches. It was noted, however, re cently she had new wounds I should say in her perineal area and labial area which were previously und escribed. These were new wounds and as such I am consulted for discussion of management of her previ ous wounds which are improving and assessment and management of her new wounds which are in her perin eal and pubic area. The patient has no complaints when I have discussed the case with her during the interview process and she had significant improvement using previous wound care as I had indicated. Past Medical History: Diastolic CHF, atrial fibrillation, on chronic anticoagulation, GI bleed, GERD , hypertension, chronic renal disease, diabetes, hyperlipidemia, diabetic neuropathy, chronic pain di sorder, COPD, history of CVA, anemia of chronic disease, pelvic fracture. Past Surgical History: Includes knee surgery, back surgery, hysterectomy. Allergies: ACYCLOVIR, FAMVIR, PROPAFENONE, VALACYCLOVIR. Home Medications: Include Zocor, vitamin D, metoprolol, pantoprazole, Cipro, Floxin, metronidazole, Eliquis, bumetanide, gabapentin, Apresoline, Plaquenil, Singulair, spironolactone, allopurinol. Social History: She still smokes cigarettes. She denies alcohol recreational drug use. She lives a t home. Review of Systems: Ten-point review of systems other than HPI, she currently has no complaints. Physical Examination: General: Very similar to her previous exam. She is awake, alert and oriented. Psychiatric: She is appropriate. Conversive. She is quite thin. She is cooperative on psychiatric exam. HEENT: Otherwise normocephalic. Sclerae anicteric. Mucous membranes moist. Pharynx clear. Neck: Supple without JVD. Chest: Normal expansion and excursion. Cardiovascular: Regular rate and rhythm. Pulmonary: Clear to auscultation bilaterally. Abdomen: Soft. Skin: Focused examination of her skin, she has multiple small punctate grade 1 sacral and lower back pressure wounds all approximately 1 cm or smaller in a satellite type distribution. There is no sig nificant breakdown requiring any surgical intervention. Look focused on her pubic area. She does on her labia and near the mons pubis have 2 wounds approximately 2.5 cm which are open raw in appearanc e and has surrounding cellulitis with tenderness and some clear drainage at this point. There is min imal fibrinous exudate to these areas as well. Laboratory Data: Revealed a white blood cell count of 7.4, hemoglobin 12.0, hematocrit of 36.1, plat elet count is 142. Her sodium is 134, potassium 4.2, chloride 101, carbon dioxide is 31, BUN 71, cre atinine 1.5, glucose is 160. She had no significant imaging of the area. Assessment And Plan: This is a 72-year-old woman known to me from previous pressure ulcers on her ba ck, who presents with new wounds and ongoing care of her previous wounds. 1.Continue DuoDerm and weight distribution pressure reduction strategies for her back wounds. 2.For the new perineal wounds and pubic wounds, I recommended Silvadene to these areas and daily opal ssing changes with cleansing with Hibiclens and an application of Silvadene once a day, and serial ex ams. Continue IV antibiotics. Continue medical management. Continue to manage fecal and any contam ination to the area with vigilance to prevent any cross contamination. I have explained the risks, b enefits and alternatives of the above stated plan. The patient agreed to proceed as indicated. Thank you for this interesting consult. ADIEL/ABBIE Voice ID: [id number] Report ID: [id number]
[2023-02-17] MEDS ORDERED: SODIUM ZIRCONIUM CYCLOSILICATE 10 GM/PKT PO ONE (19:30)
--- NOTE | 2023-02-17 19:30 | P.PN ---
Nephrology (S) Pt denies any acute complaints, pt seen by Dr. Boateng earlier for her wounds. Pt denies any dyspnea with diuretics remaining on hold (O) Vitals, medications, blood work and imaging reviewed in the chart General: Elderly, frail, NAD HEENT: Atraumatic. Dry oral mucosa, not on o2 Neck: Supple Respiratory: b/l air entry without rhonchi Cardiovascular: No current LT edema, Regular rate/rhythm mostly Gastrointestinal: Soft and benign, Non-distended Musculoskeletal: Muscle mass loss, Other (Left BKA) Integumentary: See description elsewhere of wounds Neurological: awake, alert, no tremors Blood work reviewed in the chart. Imagings Data: EXAM DESCRIPTION: RAD - Chest Single View - 02/07/2023 11:25 am CLINICAL HISTORY: TRAUMA Chest pain. COMPARISON: Chest Single View dated 01/19/2017; Chest Single View dated 04/24/2016; CHEST SINGLE VIEW dated 04/26/2009; CHEST SINGLE VIEW dated 01/01/2008 FINDINGS: Portable technique limits examination quality. Mild pulmonary edema is suspected. The heart is moderately enlarged in size. Dual lead pacer/ defibrillator device is present.Old right-sided posterior rib fractures are seen. There appears to be right distal clavicle fracture which has a chronic appearance. IMPRESSION: Mild CHF. Conclusions/Impression: Stage 1 JUAREZ, hx of freq JUAREZ (pre-renal, or other episodes) in the past, underlying CKD NOS (renal imaging unremarkable on recent CT) -Renal function cont to fluctuate mildly, diuretics on hold, cont to monitor Hyperkalemia, resolved -Spironolactone 50 mg BID appropriately on hold, will d/c as I do not see any indication for such a large dose and K level back up at ULN. Switch protein drinks to Nepro as they contain less potassium. Dose lokelma once. HTN with CKD -BP not elevated currently Diastolic CHF, chronic -No signs of current fluid overload -Maintenance diuretics on hold and when loop diuretics resumed, recommend a lo wer dose Jeramy Edwards MD, [facility]
[2023-02-17] MEDS: MONTELUKAST 10 MG TAB PO SCH (21:30)
[2023-02-18] MEDS: DIPHENHYDRAMINE 25 MG TAB/CAP PO PRN ×2 (04:40→21:42)
[2023-02-18] MEDS: HYDROCODONE/APAP 10/325 TAB PO PRN ×3 (05:54→21:42)
[2023-02-18 06:55] LABS: Albumin 2.6 g/dL (3.4-5.0); Phosphorus 2.4 mg/dL (2.5-4.9); Potassium 5.1 mEq/L (3.5-5.1)
[2023-02-18] MEDS ORDERED: SODIUM ZIRCONIUM CYCLOSILICATE 10 GM/PKT PO ONE (07:30)
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
[2023-02-18] MEDS: PANTOPRAZOLE 40MG TABLET PO SCH (09:06)
[2023-02-18] MEDS: METOPROLOL TAR 50 MG TAB PO SCH (09:07)
[2023-02-18] MEDS: GABAPENTIN 300 MG CAP PO SCH ×2 (09:07→21:32)
[2023-02-18] MEDS: FLUCONAZOLE 100 MG TAB PO SCH (09:11)
[2023-02-18] MEDS: HYDROXYCHLOROQUINE 200MG TAB PO SCH (09:11)
[2023-02-18] MEDS: JUVEN PACKET PO SCH ×2 (09:12→21:32)
[2023-02-18] MEDS: ENOXAPARIN 30 MG/0.3 ML SQ SCH (09:12)
[2023-02-18] MEDS: ENSURE HIGH PROTEIN 237 ML CAN PO SCH ×2 (09:12→21:33)
[2023-02-18] MEDS: NYSTATIN PWDR 100000 UNIT/GM TOP SCH ×2 (09:13→21:34)
[2023-02-18] MEDS: SILVER SULFADIAZINE 1% 50 GM TOP SCH ×2 (09:14→21:33)
[2023-02-18] MEDS: ZINC OXIDE 20% OINTMENT 60gm TOP SCH ×2 (09:14→21:33)
--- NOTE | 2023-02-18 12:55 | P.PN ---
Nephrology (S) Pt denies any acute complaints, no CP or dyspnea or N/V/D reported (O) Vitals, medications, blood work and imaging reviewed in the chart General: Elderly, frail, NAD HEENT: Atraumatic. Dry oral mucosa, not on o2 Neck: Supple Respiratory: b/l air entry without rhonchi Cardiovascular: No current LT edema, Regular rate/rhythm mostly Gastrointestinal: Soft and benign, Non-distended Musculoskeletal: Muscle mass loss, Other (Left BKA) Integumentary: See description elsewhere of wounds Neurological: awake, alert, no tremors Blood work reviewed in the chart. Imagings Data: EXAM DESCRIPTION: RAD - Chest Single View - 02/07/2023 11:25 am CLINICAL HISTORY: TRAUMA Chest pain. COMPARISON: Chest Single View dated 01/19/2017; Chest Single View dated 04/24/2016; CHEST SINGLE VIEW dated 04/26/2009; CHEST SINGLE VIEW dated 01/01/2008 FINDINGS: Portable technique limits examination quality. Mild pulmonary edema is suspected. The heart is moderately enlarged in size. Dual lead pacer/ defibrillator device is present.Old right-sided posterior rib fractures are seen. There appears to be right distal clavicle fracture which has a chronic appearance. IMPRESSION: Mild CHF. Conclusions/Impression: Stage 1 JUAREZ, hx of freq JUAREZ (pre-renal, or other episodes) in the past, underlying CKD NOS (renal imaging unremarkable on recent CT) -Renal function cont to fluctuate mildly, diuretics on hold, cont to monitor closely. -Mod to severe azotemia despite diuretics on hold. Will check fractional excretion of urea. Hyperkalemia, resolved -Spironolactone 50 mg BID appropriately on hold, will d/c as I do not see any indication for such a large dose and K level back up at ULN. Switch protein drinks to Nepro as they contain less potassium. Dose cation exchangers as needed HTN with CKD -BP not elevated currently Diastolic CHF, chronic -No signs of current fluid overload -Maintenance diuretics on hold and when loop diuretics resumed, recommend a lower dose Jeramy Edwards MD, FASN
[2023-02-18] MEDS: MONTELUKAST 10 MG TAB PO SCH (21:32)
[2023-02-19] MEDS: DIPHENHYDRAMINE 25 MG TAB/CAP PO PRN (04:57)
[2023-02-19] MEDS: HYDROCODONE/APAP 10/325 TAB PO PRN ×2 (05:27→16:15)
[2023-02-19 06:49] LABS: Albumin 2.4 g/dL (3.4-5.0); Magnesium 2.1 mg/dL (1.6-2.4); Phosphorus 2.5 mg/dL (2.5-4.9); Potassium 4.6 mEq/L (3.5-5.1)
[2023-02-19] MEDS: ZINC OXIDE 20% OINTMENT 60gm TOP SCH (09:00)
[2023-02-19] MEDS: ENSURE HIGH PROTEIN 237 ML CAN PO SCH (09:00)
[2023-02-19] MEDS: PANTOPRAZOLE 40MG TABLET PO SCH (09:31)
[2023-02-19] MEDS: FLUCONAZOLE 100 MG TAB PO SCH (09:31)
[2023-02-19] MEDS: HYDROXYCHLOROQUINE 200MG TAB PO SCH (09:31)
[2023-02-19] MEDS: GABAPENTIN 300 MG CAP PO SCH (09:31)
[2023-02-19] MEDS: METOPROLOL TAR 50 MG TAB PO SCH (09:31)
[2023-02-19] MEDS: ENOXAPARIN 30 MG/0.3 ML SQ SCH (09:32)
[2023-02-19] MEDS: SILVER SULFADIAZINE 1% 50 GM TOP SCH (09:33)
[2023-02-19] MEDS: NYSTATIN PWDR 100000 UNIT/GM TOP SCH (09:33)
[2023-02-19] MEDS: JUVEN PACKET PO SCH (09:34)
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
[2023-02-19 17:05] VITALS: BP 145/59; TEMP 97.8
--- NOTE | 2023-02-19 19:53 | P.PN ---
Date of Service: 02/19/23 Vital Signs Temp Pulse Resp BP Pulse Ox 97.8 F 60 16 145/59 H 100 02/19/23 16:00 02/19/23 16:00 02/19/23 16:15 02/19/23 16:00 02/19/23 16:00 Assessment/ Plan: Nephrology No dyspnea No chest pain Feeling better Rash improving No acute events overnight Vitals, medications, blood work and imaging reviewed in the chart General: In no apparent distress, Oriented x3, Cooperative HEENT: Atraumatic. DMM Neck: Supple Respiratory: Clear to auscultation bilaterally Cardiovascular: No edema, Regular rate/rhythm Gastrointestinal: Soft and benign, Non-distended Musculoskeletal: No clubbing, No contractures, Other (Left BKA) Integumentary: No cyanosis, Rash(es), Skin breakdown Neurological: Normal speech Blood work reviewed in the chart. Imagings Data: EXAM DESCRIPTION: RAD - Chest Single View - 02/07/2023 11:25 am CLINICAL HISTORY: TRAUMA Chest pain. COMPARISON: Chest Single View dated 01/19/2017; Chest Single View dated 04/24/2016; CHEST SINGLE VIEW dated 04/26/2009; CHEST SINGLE VIEW dated 01/01/2008 FINDINGS: Portable technique limits examination quality. Mild pulmonary edema is suspected. The heart is moderately enlarged in size. Dual lead pacer/ defibrillator device is present.Old right-sided posterior rib fractures are seen. There appears to be right distal clavicle fracture which has a chronic appearance. IMPRESSION: Mild CHF. Conclusions/Impression: Stage I JUAREZ likely due to hypovolemia CKD II with Proteinuria -No NSAIDs -Hold diuretics at this time Hyponatremia -Monitor level Hyperkalemia, resolved Hypomagnesemia, resolved Hypophosphatemia -Replete prn -Encourage nutrition HTN with CKD/ CHF -Continue Metoprolol Diastolic CHF, chronic -Daily weight -Hold diuretics at this time DM II with CKD & Polyneuropathy -No sugar diet Anemia in chronic illness Thrombocytopenia -Monitor CBC Severe Tinea Cruris -Diflucan PO -Topical antifungal -Wound care/ barrier cream as ordered Case reviewed with Dr. Reich
== END 2023-02-19 18:17 | disposition swing bed (61) | DRG 603 ==
LOC: ER 10:35 → ERHOLD 14:57 → 4TH 16:36 → OBSVTOIN 02-09 12:43
PROVIDERS: ADMIT Internal Medicine; ATTEND Hospitalist
DX: L03.314 Cellulitis of groin (principal); I13.0 Hypertensive heart and chronic kidney disease with heart failure and stage 1 through stage 4 chronic kidney disease, or unspecified chronic kidney disease; N17.9 Acute kidney failure, unspecified; I50.32 Chronic diastolic (congestive) heart failure; I48.91 Unspecified atrial fibrillation; N18.2 Chronic kidney disease, stage 2 (mild); E11.22 Type 2 diabetes mellitus with diabetic chronic kidney disease; E11.42 Type 2 diabetes mellitus with diabetic polyneuropathy; D63.1 Anemia in chronic kidney disease; D63.8 Anemia in other chronic diseases classified elsewhere; E78.5 Hyperlipidemia, unspecified; G89.29 Other chronic pain; N76.2 Acute vulvitis; M25.511 Pain in right shoulder; M54.2 Cervicalgia; E87.5 Hyperkalemia; E83.42 Hypomagnesemia; M32.9 Systemic lupus erythematosus, unspecified; D69.6 Thrombocytopenia, unspecified; K21.9 Gastro-esophageal reflux disease without esophagitis; M10.9 Gout, unspecified; J44.9 Chronic obstructive pulmonary disease, unspecified; L27.0 Generalized skin eruption due to drugs and medicaments taken internally; L89.329 Pressure ulcer of left buttock, unspecified stage; L89.319 Pressure ulcer of right buttock, unspecified stage; L89.159 Pressure ulcer of sacral region, unspecified stage; S42.009D Fracture of unspecified part of unspecified clavicle, subsequent encounter for fracture with routine healing; F17.200 Nicotine dependence, unspecified, uncomplicated; B35.6 Tinea cruris; R19.7 Diarrhea, unspecified; Z88.8 Allergy status to other drugs, medicaments and biological substances; Z86.73 Personal history of transient ischemic attack (TIA), and cerebral infarction without residual deficits; Z74.01 Bed confinement status; Z79.01 Long term (current) use of anticoagulants; Z89.512 Acquired absence of left leg below knee; Z95.810 Presence of automatic (implantable) cardiac defibrillator; Z79.899 Other long term (current) drug therapy; Z90.710 Acquired absence of both cervix and uterus
CPT/HCPCS: 36415; 71045; 72125; 74176; 80048; 80053; 80069; 81001; 82570; 82947; 83735; 84100; 84550; 85025; 87324; 96374; 96375; 97110; 97161; 97165; 97530; 99285; G0378; J1170; J1650; J2405; J3475; J7030

== ENCOUNTER 2023-06-13 12:17 | Inpatient (IN) | payer OTHER ==
[2023-06-13 13:44] LABS: Absolute Basophils 0.1 K/uL (0-0.5); Absolute Lymphocytes (CBC) 0.7 K/uL (0.7-4.9); Absolute Monocytes 0.4 K/uL (0.1-1.3); Absolute Neutrophil 8.4 K/uL (1.8-8.0); Basophils % 0.6 % (0-1.3); Eosinophils % 0.2 % (0-4.4); Hematocrit 30.4 % (36.0-45.0); Hemoglobin 9.9 g/dL (12.0-15.0); Lymphocytes % 7.2 % (15.3-44.8); MCH 28.6 pg (27.0-35.0); MCHC 32.5 g/dL (32.0-36.0); MCV 87.9 fL (80-100); MPV 9.4 fL (7.6-11.3); Monocytes % 4.5 % (3.3-12.3); Neutrophils % 87.5 % (41.7-73.7); Nucleated Red Blood Cells % 0.2 % (0-0); Platelets 176 thou/uL (152-406); RBC Red Blood Cell Count 3.46 M/uL (3.86-4.86); Red Cell Distribution Width 19.5 % (12.1-15.2)
[2023-06-13 13:56] LABS: Albumin 2.2 g/dL (3.4-5.0); Albumin/Globulin Ratio 0.4 (1.1-1.8); Anion Gap 8.9 mEq/L (5.0-15.0); Bilirubin Total 0.4 mg/dL (0.2-1.0); Globulin 5.2 g/dL (2.3-3.5); Potassium 3.9 mEq/L (3.5-5.1); Protein, Total 7.4 g/dL (6.4-8.2)
[2023-06-13 14:15] LABS: Platelet Estimate ADEQ
[2023-06-13 14:16] LABS: Blood Morphology Comment NOT SEEN (NOT SEEN)
[2023-06-13 14:18] LABS: White Blood Cell Scan OK (OK)
--- NOTE | 2023-06-13 14:21 | ER ---
Nurse's Notes [facility] Name: Carolyn Piper Age: 72 yrs Sex: Female : 1950 Arrival Date: 06/13/2023 Time: 12:17 Bed 18 Private MD: Diagnosis: Pressure ulcer of sacral region, unspecified stage Presentation: 06/13 12:30 Chief complaint: EMS states: bed sores. Reports patient states she has multiple bed cp4 sores that need to be treated. Coronavirus screen: Client denies travel out of the [place] in the last 14 days. At this time, the client does not indicate any symptoms associated with coronavirus-19. Ebola Screen: Patient negative for fever greater than or equal to 101.5 degrees Fahrenheit, and additional compatible Ebola Virus Disease symptoms Patient denies exposure to infectious person. Patient denies travel to an Ebola-affected area in the 21 days before illness onset. No symptoms or risks identified at this time. Initial Sepsis Screen: Does the patient meet any 2 criteria? HR > 90 bpm. Does the patient have a suspected source of infection? No. Patient's initial sepsis screen is negative. Risk Assessment: Do you want to hurt yourself or someone else? Patient reports no desire to harm self or others. Onset of symptoms is unknown. 12:30 Method Of Arrival: EMS: [facility] 4 12:30 Acuity: KUSHAL 3 cp4 Triage Assessment: 12:33 General: Appears in no apparent distress. Behavior is appropriate for age, agitated. cp4 Pain: Complains of pain in buttocks. Derm: Decubitus located on sacrum. Historical: - Allergies: 12:33 acyclovir; cp4 12:33 fameiclonir; cp4 12:33 Propafenone; cp4 12:33 Valacyclovir HCl; cp4 12:33 Valtrex; cp4 - PMHx: 12:33 Anemia; Atrial Fib; blood clot; CHF; Chronic pain; CVA; Diabetes - IDDM; GI disease; cp4 Gout; Hyperlipidemia; Hypertension; liver failure; Lupus erythematosus; Renal Disease; sciatica; - PSHx: 12:33 Left BKA; cp4 - Immunization history:: Adult Immunizations up to date. - Social history:: Smoking status: Patient denies any tobacco usage or history of. Screenin:42 [facility] ED Fall Risk Assessment (Adult) History of falling in the last 3 months, cp4 including since admission No falls in past 3 months (0 pts) Confusion or Disorientation No (0 pts) Intoxicated or Sedated No (0 pts) Impaired Gait No (0 pts) Mobility Assist Device Used No (0 pt) Altered Elimination No (0 pt) Score/Fall Risk Level 0 - 2 = Low Risk Oriented to surroundings, Maintained a safe environment, Educated pt \T\ family on fall prevention, incl call for assistance when getting out of bed, Assessed \T\ reinforced patient's understanding of fall precautions, Provided non-skid footwear, Hourly rounding (assess needs \T\ fall precautionary measures) done. Abuse screen: Denies threats or abuse. Nutritional screening: No deficits noted. Tuberculosis screening: No symptoms or risk factors identified. Assessment: 12:42 Reassessment: Patient appears in no apparent distress at this time. cp4 Vital Signs: 12:30 BP 115 / 61; Pulse 100; Resp 18; Temp 98; Pulse Ox 100% ; cp4 13:05 BP 129 / 80; Pulse 104; Resp 18; Pulse Ox 100% ; cp4 14:00 BP 148 / 85; Pulse 92; Resp 18; Pulse Ox 100% ; cp4 15:00 BP 117 / 47; Pulse 90; Resp 18; Pulse Ox 100% ; cp4 16:00 BP 104 / 56; Pulse 91; Resp 18; Pulse Ox 100% ; cp4 17:00 BP 96 / 56; Pulse 108; Resp 18; Pulse Ox 100% ; cp4 18:00 BP 92 / 50; Pulse 109; Resp 18; Pulse Ox 100% ; cp4 19:00 BP 115 / 59; Pulse 101; Resp 18; Pulse Ox 100% ; cp4 ED Course: 12:29 Patient arrived in ED. cp4 12:29 Ricco Ruiz MD is Attending Physician. ec2 12:30 Jo Walker is Primary Nurse. cp4 12:33 Triage completed. cp4 12:33 Arm band placed on right wrist. Patient placed in the treatment room, on a stretcher. cp4 12:42 Bed in low position. Call light in reach. Side rails up X2. Provided Education on: cp4 decubitus. 12:42 Served as a scientific associate during rectal exam. cp4 13:06 Patient did not have IV access during this emergency room visit. cp4 13:38 Initial lab(s) drawn, by me, sent to lab. Inserted saline lock: 22 gauge in left iw antecubital area, using aseptic technique. Blood collected. 14:20 Johnathan Wisdom is Hospitalizing Provider. ec2 Administered Medications: 14:30 Drug: Ketorolac IVP 15 mg IVP once Route: IVP; Site: left antecubital; cp4 14:31 Not Given (Patient Refused): [id number] mg PO once cp4 Medication: 12:42 VIS not applicable for this client. cp4 Outcome: 14:21 Decision to Hospitalize by Provider. ec2 20:06 Admitted to Med/surg accompanied by tech, via stretcher, Report called to YAKELIN Rivas cp4 20:06 Condition: stable 20:06 Instructed on the need for admit, Demonstrated understanding of instructions, follow-up care, 20:31 Patient left the ED. cp4 Signatures: Marianela Ramirez RN RN Ricco Ruiz MD MD ec2 Jo Walker cp4 Corrections: (The following items were deleted from the chart) 13:07 13:06 Discharged to home ambulatory, cp4 cp4 13:07 13:06 Condition: stable cp4 cp4 13:07 13:06 Discharge instructions given to patient, Instructed on discharge instructions, cp4 follow up and referral plans. Demonstrated understanding of instructions, follow-up care, cp4
--- NOTE | 2023-06-13 14:21 | EDPHYS ---
Physician Documentation [facility] Name: Carolyn Piper Age: 72 yrs Sex: Female : 1950 Arrival Date: 06/13/2023 Time: 12:17 Bed 18 Private MD: ED Physician Ricco Ruiz HPI: 06/13 12:57 This 72 yrs old Black Female presents to ER via EMS with complaints of Decubitus. ec2 12:57 Patient arrives today due to concern for chronic ulcers. Patient lives alone at home, ec2 states that she is been having worsening pain, inability to care for herself and care for her ulcers. She does have a wound care individual who dresses her wound, states that she had her wounds most recently dressed today. Reports no fevers or chills, nausea or vomiting.. Historical: - Allergies: 12:33 acyclovir; cp4 12:33 fameiclonir; cp4 12:33 Propafenone; cp4 12:33 Valacyclovir HCl; cp4 12:33 Valtrex; cp4 - PMHx: 12:33 Anemia; Atrial Fib; blood clot; CHF; Chronic pain; CVA; Diabetes - IDDM; GI disease; cp4 Gout; Hyperlipidemia; Hypertension; liver failure; Lupus erythematosus; Renal Disease; sciatica; - PSHx: 12:33 Left BKA; cp4 - Immunization history:: Adult Immunizations up to date. - Social history:: Smoking status: Patient denies any tobacco usage or history of. ROS: 12:57 Constitutional: as per hpi ec2 Exam: 12:57 Constitutional: GEN: NAD Head: atraumatic Eyes: EOMI Ears: External ears are ec2 normal. CV: regular rate LUNGS: no respiratory distress ABD: non-distended SKIN: Chronic decubitus ulcers noted on the backside, no erythema, no discharge, noninfectious appearing MSK: no evidence of trauma NEURO: moves all extremities equally Vital Signs: 12:30 BP 115 / 61; Pulse 100; Resp 18; Temp 98; Pulse Ox 100% ; cp4 13:05 BP 129 / 80; Pulse 104; Resp 18; Pulse Ox 100% ; cp4 14:00 BP 148 / 85; Pulse 92; Resp 18; Pulse Ox 100% ; cp4 15:00 BP 117 / 47; Pulse 90; Resp 18; Pulse Ox 100% ; cp4 16:00 BP 104 / 56; Pulse 91; Resp 18; Pulse Ox 100% ; cp4 17:00 BP 96 / 56; Pulse 108; Resp 18; Pulse Ox 100% ; cp4 18:00 BP 92 / 50; Pulse 109; Resp 18; Pulse Ox 100% ; cp4 19:00 BP 115 / 59; Pulse 101; Resp 18; Pulse Ox 100% ; cp4 MDM: 12:40 Patient medically screened. ec2 12:57 Data reviewed: vital signs. ED course: Patient arrives today for pain from her chronic ec2 ulcers. Examination remarkable for well-appearing nontoxic dividual is otherwise in no acute distress with ulcers described above. Ulcers do not appear infectious in nature, ultimately I believe that she requires admission due to inability to care for herself and her chronic pain.. 14:20 ED course: CBC reassuring without leukocytosis noted. Metabolic profile shows ec2 appropriate electrolytes, renal dysfunction noted. Will admit for pain control and placement due to patient's limited capabilities to care for self. Additionally patient is hypoglycemic, patient to be p.o. challenge.. 06/13 12:46 Order name: CBC with Diff; Complete Time: 14:19 ec2 06/13 12:46 Order name: CMP; Complete Time: 13:59 ec2 06/13 14:16 Order name: CBC Smear Scan; Complete Time: 14:19 EDMS 06/13 15:23 Order name: Urinalysis w/ reflexes EDMS 06/13 15:23 Order name: Basic Metabolic Panel EDMS 06/13 15:23 Order name: Basic Metabolic Panel EDMS 06/13 15:23 Order name: Basic Metabolic Panel EDMS 06/13 15:23 Order name: Basic Metabolic Panel EDMS 06/13 15:23 Order name: Basic Metabolic Panel EDMS 06/13 15:23 Order name: Basic Metabolic Panel EDMS 06/13 15:23 Order name: Basic Metabolic Panel EDMS 06/13 15:23 Order name: Basic Metabolic Panel EDMS 06/13 15:23 Order name: CBC with Automated Diff EDMS 06/13 15:23 Order name: CBC with Automated Diff EDMS 06/13 15:23 Order name: CBC with Automated Diff EDMS 06/13 15:23 Order name: CBC with Automated Diff EDMS 06/13 15:23 Order name: CBC with Automated Diff EDMS 06/13 15:23 Order name: CBC with Automated Diff EDMS 06/13 15:23 Order name: CBC with Automated Diff EDMS 06/13 15:23 Order name: CBC with Automated Diff EDMS 06/13 15:23 Order name: Magnesium EDMS 06/13 15:23 Order name: Magnesium EDMS 06/13 15:23 Order name: Magnesium EDMS 06/13 15:23 Order name: Magnesium EDMS 06/13 15:23 Order name: Magnesium EDMS 06/13 15:23 Order name: Magnesium EDMS 06/13 15:23 Order name: Magnesium EDMS 06/13 15:23 Order name: Magnesium EDMS 06/13 15:23 Order name: Phosphorus EDMS 06/13 15:23 Order name: Phosphorus EDMS 06/13 15:23 Order name: Phosphorus EDMS 06/13 15:23 Order name: Phosphorus EDMS 06/13 15:23 Order name: Phosphorus EDMS 06/13 15:23 Order name: Phosphorus EDMS 06/13 15:23 Order name: Phosphorus EDMS 06/13 15:23 Order name: Phosphorus EDMS 06/13 18:22 Order name: Glucose, Ancillary Testing EDMS 06/13 15:23 Order name: [facility] Cons EDMS 06/13 15:23 Order name: Physical Therapy Consult EDMS Administered Medications: 14:30 Drug: Ketorolac IVP 15 mg IVP once Route: IVP; Site: left antecubital; cp4 14:31 Not Given (Patient Refused): [id number] mg PO once cp4 Disposition Summary: 06/13/23 14:21 Hospitalization Ordered Notes: Hospitalization Status: Inpatient Admission ec2 Provider: Johnathan Wisdom ec2 Condition: Stable ec2 Problem: chronic ec2 Symptoms: are unchanged ec2 Bed/Room Type: Standard ec2 Location: Telemetry/MedSurg (observation)(06/13/23 19:01) rv1 Room Assignment: 232(06/13/23 19:01) rv1 Diagnosis - Pressure ulcer of sacral region, unspecified stage ec2 Forms: - Medication Reconciliation Form ec2 - SBAR form ec2 - Leadership Thank You Letter ec2 Signatures: Dispatcher [employer] EDMS Mackenzie Macias Diana, RN RN Fadia Coronel rv1 Joselyn Kiran RN RN cm10 Ricco Ruiz MD MD ec2 Jo Walker cp4 Corrections: (The following items were deleted from the chart) 12:57 12:56 Patient medically screened. ec2 ec2 16:21 14:21 ec2 bd 17:19 14:21 Telemetry/MedSurg (Inpatient) ec2 dw 17:19 16:21 201 bd dw 17:35 17:19 dw cm10 19:01 17:19 [facility] ER HOLD dw rv1 19:01 17:35 ERHOLD- cm10 rv1
[2023-06-13] MEDS ORDERED: ACETAMINOPHEN 500 MG TAB ONE (14:22)
[2023-06-13] MEDS ORDERED: KETOROLAC 30 MG/ML INJ ONE (14:22)
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
[2023-06-13] MEDS: INSULIN REGULAR (HUMAN) 100 UNIT/ML SQ SCH (16:30)
[2023-06-13] MEDS: HEPARIN 5000 UNIT/ML 1 ML VIAL SQ SCH (17:00)
[2023-06-13 18:19] VITALS: BMI 18.6
[2023-06-14] MEDS: TRAMADOL HCL 50 MG TAB PO PRN (01:18)
[2023-06-14 04:54] LABS: Absolute Eosinophils 0.1 K/uL (0-0.5); Absolute Lymphocytes (CBC) 0.8 K/uL (0.7-4.9); Absolute Monocytes 0.5 K/uL (0.1-1.3); Absolute Neutrophil 5.8 K/uL (1.8-8.0); Basophils % 0.5 % (0-1.3); Eosinophils % 0.8 % (0-4.4); Hematocrit 22.3 % (36.0-45.0); Hemoglobin 7.1 g/dL (12.0-15.0); Lymphocytes % 10.6 % (15.3-44.8); MCH 27.8 pg (27.0-35.0); MCHC 31.9 g/dL (32.0-36.0); MPV 9.7 fL (7.6-11.3); Monocytes % 7.5 % (3.3-12.3); Neutrophils % 80.6 % (41.7-73.7); Nucleated Red Blood Cells % 0.2 % (0-0); Platelets 139 thou/uL (152-406); RBC Red Blood Cell Count 2.57 M/uL (3.86-4.86); Red Cell Distribution Width 19.1 % (12.1-15.2)
[2023-06-14 05:04] LABS: Anion Gap 6.1 mEq/L (5.0-15.0); Magnesium 1.8 mg/dL (1.6-2.4); Phosphorus 3.7 mg/dL (2.5-4.9); Potassium 4.1 mEq/L (3.5-5.1)
[2023-06-14] MEDS: NA CHLORIDE 0.9% 1,000 ML IV SCH ×2 (06:00→08:10)
[2023-06-14] MEDS: MAGNESIUM SULFATE 1 gm IVPB 1 GM/100 ML BAG IV ONE (08:10)
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
[2023-06-14] MEDS: GABAPENTIN 300 MG CAP PO SCH (10:16)
[2023-06-14] MEDS: HYDROCODONE/APAP 7.5/325 MG TAB PO PRN (10:16)
[2023-06-14] MEDS: NACHLORIDE 0.45% 1,000 ML IV SCH (10:17)
[2023-06-14] MEDS: ZINC OXIDE 20% OINTMENT 60gm TOP SCH (12:00)
--- NOTE | 2023-06-14 14:35 | P.PN ---
Date of Service: 06/14/23 Subjective Sleeping but easily aroused c/o generalized pain Cooperative with therapy ROS 10 point ROS as noted above, otherwise negative Physical Exam General: AAOx3 , NAD, calm HEENT: Atraumatic, Normocephalic, PERRLA Neck: Supple, 2+ carotid pulse no bruit, JVD not distended Respiratory: Clear to auscultation bilaterally, symmetrical chest wall movement, on RA Cardiovascular: No edema, Normal pulses, RRR, Normal S1 S2, no murmur noted Capillary refill: <2 Seconds Gastrointestinal: Normoactive bowel sounds, Soft and benign on palpation Musculoskeletal: No clubbing, No swelling, No contractures, Other (left BKA) Integumentary: Skin breakdown (multiple sacral wound) Neurological: Normal speech, Normal strength at 5/5 x4 extr, Normal tone Vitals Reviewed Problem list Weakness 2/2 debilitation Diabetes - IDDM Acute on Chronic kidney disease History of Anemia Atrial fibrillation Congestive Heart Failure History of DVT multiple wounds Hx HTN HLD Gout Lupus erythematosus Plan Weakness 2/2 debilitation -PT -SNF- per patient request -Home health through [facility] Hypoalbuminemia -Protein supplement Diabetes - IDDM -Accucheck with SSI -Serum glucose 96- stable -Hyperglycemia protocol -restart gabapentin Stage II JUAREZ d/t hypovolemia CKD III -consult nephrology- Dr. Ochoa -BUN/Creatinine 63/2.71, GFR 18 -gentle IVF- 1/2 NS History of Anemia -H/H 7.1/.3- significant drop in HGB -Transfuse one unit today 06/14 -continue to monitor Atrial fibrillation (pacemaker) Congestive Heart Failure History of DVT -monitor fluid balance -restart home medications -Stopped heparin d/t drop in hgb multiple wounds -wound care evaluation and treatment plan -Right ear pressure ulcer stage III -Right buttocks pressure ulcer stage IV -Right thigh pressure ulcer stage III -Rash noted to bilateral buttocks/perianal and groin area -RT Buttocks/RT Thigh/RT Ear- Cleanse with soap/water;rinse well with NS. Apply Medihoney, gauze, foam daily and PRN for soilage/dislodgement. -Buttocks/perianal/groin rash- apply zinc oxide daily and prn. -Consult Dr. Fletcher Hx HTN HLD Gout Lupus erythematosus Restart home medications supportive care DVT ppx-stopped heparin- SCD DVT history Full code LOS 2-3 days
[2023-06-14] MEDS: FUROSEMIDE 20 MG/ 2ML VIAL IV ONE (14:46)
[2023-06-14] MEDS: HYDRALAZINE HCL 25 MG TABLET PO SCH (15:00)
[2023-06-14] MEDS ORDERED: NA CHLORIDE 0.9% 250 ML IV SCH (15:00)
[2023-06-14] MEDS: METOPROLOL TAR 50 MG TAB PO SCH (16:00)
[2023-06-14] MEDS: BUMETANIDE 1 MG TABLET PO SCH (16:00)
[2023-06-14] MEDS: allopurinoL 100 MG TAB PO SCH (16:38)
[2023-06-14] MEDS: PANTOPRAZOLE 40MG TABLET PO SCH (16:38)
[2023-06-14] MEDS: HYDROXYCHLOROQUINE 200MG TAB PO SCH (16:38)
[2023-06-14] MEDS: MEDIHONEY 44 ML TOPICAL TUBE TOP SCH (16:39)
[2023-06-14] MEDS ORDERED: GABAPENTIN 300 MG CAP PO SCH (21:00)
[2023-06-14] MEDS ORDERED: SIMVASTATIN 10 MG PO SCH (21:00)
[2023-06-14] MEDS: DONEPEZIL HCL 5 MG TAB PO SCH (21:13)
[2023-06-14] MEDS: ATORVASTATIN 10 MG TAB PO SCH (21:13)
[2023-06-14 22:05] LABS: Hematocrit 25.6 % (36.0-45.0); Hemoglobin 8.4 g/dL (12.0-15.0)
[2023-06-15 07:03] LABS: Absolute Eosinophils 0.1 K/uL (0-0.5); Absolute Lymphocytes (CBC) 1.1 K/uL (0.7-4.9); Absolute Monocytes 0.5 K/uL (0.1-1.3); Absolute Neutrophil 5.5 K/uL (1.8-8.0); Basophils % 0.4 % (0-1.3); Hematocrit 27.1 % (36.0-45.0); Hemoglobin 8.9 g/dL (12.0-15.0); Lymphocytes % 14.9 % (15.3-44.8); MCH 28.3 pg (27.0-35.0); MCHC 32.8 g/dL (32.0-36.0); MCV 86.2 fL (80-100); MPV 9.4 fL (7.6-11.3); Monocytes % 7.5 % (3.3-12.3); Neutrophils % 76.2 % (41.7-73.7); Nucleated Red Blood Cells % 0.2 % (0-0); Platelets 140 thou/uL (152-406); RBC Red Blood Cell Count 3.14 M/uL (3.86-4.86); Red Cell Distribution Width 18.4 % (12.1-15.2)
[2023-06-15 07:20] LABS: Anion Gap 7.9 mEq/L (5.0-15.0); Phosphorus 2.6 mg/dL (2.5-4.9); Potassium 4.9 mEq/L (3.5-5.1)
[2023-06-15] MEDS: NA CHLORIDE 0.9% 1,000 ML ONE (08:35)
[2023-06-15] MEDS ORDERED: allopurinoL 100 MG TAB PO SCH (09:00)
[2023-06-15] MEDS ORDERED: FENTANYL CITR 100 MCG/2 ML ONE (09:08)
[2023-06-15] MEDS ORDERED: LIDOCAINE 1% MPF 5 ML VIAL ONE (09:08)
[2023-06-15] MEDS ORDERED: MIDAZOLAM HCL 2 MG/2 ML INJ ONE (09:08)
[2023-06-15] MEDS ORDERED: propofoL 200 MG/20 ML VIAL IV ONE (09:08)
[2023-06-15] MEDS ORDERED: ONDANSETRON 4 MG/2 ML VIAL ONE (09:33)
[2023-06-15] MEDS ORDERED: dexAMETHasone 4 MG/ML VIAL ONE (09:34)
--- NOTE | 2023-06-15 09:35 | P.PN ---
Date of Service: 06/15/23 Subjective Surgery today awake and alert s/p debridement ROS 10 point ROS as noted above, otherwise negative Physical Exam General: AAOx3 , NAD, calm, cachectic HEENT: Atraumatic, Normocephalic, PERRLA Neck: Supple, 2+ carotid pulse no bruit, JVD not distended Respiratory: Clear to auscultation bilaterally, symmetrical chest wall movement, on RA Cardiovascular: No edema, Normal pulses, RRR, Normal S1 S2, no murmur noted Capillary refill: <2 Seconds Gastrointestinal: Normoactive bowel sounds, Soft and benign on palpation Musculoskeletal: No clubbing, No swelling, No contractures, Other (left BKA) Integumentary: Skin breakdown (multiple sacral wound) Neurological: Normal speech, Normal strength at 5/5 x4 extr, Normal tone Vitals Reviewed Problem list Weakness 2/2 debilitation Diabetes - IDDM Acute on Chronic kidney disease History of Anemia Atrial fibrillation Congestive Heart Failure History of DVT multiple wounds Hx HTN HLD Gout Lupus erythematosus Plan Weakness 2/2 debilitation -PT -SNF- per patient request -Home health through [facility] Hypoalbuminemia -Protein supplement Diabetes - IDDM -Accucheck with SSI -Serum glucose 76- stable -Hyperglycemia protocol -restart gabapentin Stage II JUAREZ d/t hypovolemia CKD III -consult nephrology- Dr. Ochoa -BUN/Creatinine 58/2.27, GFR 22- improvement -gentle IVF- 04/24 NS-for another 12-24 hr per nephrology History of Anemia -H/H 8.4/25.6 post transfusion -Transfused one unit PRBC (06/14) -continue to monitor Atrial fibrillation (pacemaker) Congestive Heart Failure History of DVT -monitor fluid balance -restart home medications -Stopped heparin d/t drop in hgb multiple wounds -wound care evaluation and treatment plan -Right ear pressure ulcer stage III -Right buttocks pressure ulcer stage IV -Right thigh pressure ulcer stage III -Rash noted to bilateral buttocks/perianal and groin area -RT Buttocks/RT Thigh/RT Ear- Cleanse with soap/water;rinse well with NS. Apply Medihoney, gauze, foam daily and PRN for soilage/dislodgement. -Buttocks/perianal/groin rash- apply zinc oxide daily and prn. -Consult Dr. Fletcher- surgery I and D today 06/15 Hx HTN HLD Gout Lupus erythematosus Restart home medications supportive care DVT ppx-stopped heparin- SCD DVT history Full code LOS 2-3 days
--- NOTE | 2023-06-15 10:33 | P.OP ---
Preoperative diagnosis: 3 pressure wounds to the sacrum and buttock, Postoperative diagnosis: The same Primary procedure: Surgical debridement of pressure wounds to the sacrum and buttock Secondary procedure: Application of a wound VAC Anesthesia: General Estimated blood loss: Less than 10 cc Specimen: Necrotic debris was not sent Operative Technique: The patient brought the operating room and placed supine on the table. After the induction of adequate general anesthesia, the patient was turned into the left lateral position. This allowed us to have full access to these 3 wounds across the sacrum. The patient was then prepped and draped in the usual aseptic manner. Attention was turned towards the right lateral side of the buttock. This wound measured approximately 3 cm x 2 cm in size. It was full-thickness skin. It was not undermined. The necrotic debris was excised using electrocautery. The base of the wound was then scraped with a surgical curette back to clean viable tissue. The second wound measured approximately six 8 cm x 5 cm. The edges of this were necrotic and undermined. The skin was elevated and the skin edges were freshened using the electrocautery. The necrotic tissue underneath the skin edges was removed using a 11 blade and a cutting surgical curette. The area having been sharply debrided was checked to ensure adequate hemostasis. This was ensured using electrocautery. The third wound on the left lateral side of the buttock measured approximately 3.5 x 4Centimeters in size. This also had undermined skin edges. It should be noted that both the middle wound and this wound extended all the way down and through the fascia over the muscle. The wound was sharply debrided again with a surgical curette. The necrotic and skin around the edges was sharply excised. At this point a wound VAC was now used to insert into these 2 wounds. The initial film was placed over both of the practice tacked the skin edges. Pieces of sponge material then inserted and bridged with the same. A covering wrap was then used to cover over the sponge holding in place. We were open to open the portion in the midline, placed the suction device on top of this, and show we had a good seal. The right lateral wound was closed with a sterile dressing. At this point her surgical drapes were taken down. The posterior portion of the studies legs were then inspected. Towards the upper part she has longstanding skin changes consistent with urinary incontinence and fecal incontinence. She has extensive amounts of powder and other things in the area protect the skin but there are still areas of breakthrough. These were cleaned with a Hibiclens solution. Moist was then applied. At the end of the procedure the patient was turned to the supine position on the OR table. Anesthesia was reversed and she was returned to the recovery room in a stable condition. Complications: None Transferred to: Recovery Room Condition: Good
[2023-06-15] MEDS: NACHLORIDE 0.45% 1,000 ML IV SCH (12:26)
--- NOTE | 2023-06-15 12:30 | P.PN ---
Nephrology (S) Pt seen s/p debridement of pressure wounds, reports some pain and discomfort. Denies dyspnea but reports some phlegm. Remains on IVF (O) Vitals, medications, blood work and imaging reviewed in the chart General: Elderly, frail, NAD HEENT: Atraumatic. Dry oral mucosa, not on o2 Neck: Supple Respiratory: b/l air entry without rhonchi Cardiovascular: No current LE edema, Regular rate/rhythm mostly Gastrointestinal: Soft and benign, Non-distended Musculoskeletal: Muscle mass loss, Other (Left BKA), SCD Rt LE Integumentary: See description elsewhere of wounds Neurological: awake, alert, no tremors Blood work reviewed in the chart. Conclusions/Impression: Stage II JUAREZ, hx of freq JUAREZ (pre-renal, or other episodes) in the past, underlying CKD Stage IIIb (prior renal imaging unremarkable on CT) -Cr level downward trending, cont lower rate of IVF for another 12-24h. HTN with CKD -BP not elevated currently. Reduce Hydralazine dose and place holding parameters Diastolic CHF, chronic -No signs of current fluid overload -Maintenance diuretics on hold and if/when loop diuretics resumed, recommend a lower dose Jeramy Edwards MD, ARMEN
[2023-06-15] MEDS: HYDRALAZINE HCL 25 MG TABLET PO SCH (22:19)
[2023-06-16 10:47] LABS: C.diff Antigen/Toxin Ag neg : Tox neg (NEG : NEG); CDIFF INTERNAL NEG CONTROL White Background (WHITE BKGD)
--- NOTE | 2023-06-16 10:59 | PN ---
Date of Progress Note: 06/16/2023 Subjective: The patient was seen and examined at bedside. She denies any other extremity issues. Physical Examination: Vital Signs: Have been reviewed. Blood pressure continues to be in the low 100s range. General Examination: She appears in no acute distress. Cachectic and malnourished. HEENT: Atraumatic head. Lungs: Auscultation of the lungs revealed bilateral equal air entry with diminished breath sounds at bases. Abdomen: Soft and nontender. Extremities: Left BKA was noted. The right leg with no evidence of swelling was noted. The patient has sacral decubitus ulcers. Laboratory Data: At this time has been reviewed. No new labs obtained from this morning. Current Medications: Have been reviewed. Impression: 1.Weakness secondary to debilitation. Continues SNF placement per protocol. 2.Acute on chronic renal insufficiency, currently with overall stable renal function. Continue to m onitor. P.r.n. IV fluids for hypotension and avoid further nephrotoxins. 3.Multiple wounds. The patient is getting wound care and evaluation. She has buttock wounds and th [facility] pressure wound stage III to stage IV, multiple wounds, and the patient was taken to the operating room yesterday and has debridement of the wound. Continue local wound care and monitor closely. Plan: Overall, the patient is clinically stable. Blood pressures are slightly on the lower side. C ontinue to monitor and hold diuretics if appropriate. If volume continues to be an issue, continue l ocal wound care and antibiotics and monitor closely. Prognosis overall remains poor. VV/MODL Voice ID: [id number] Report ID: [id number]
--- NOTE | 2023-06-16 11:49 | P.PN ---
Date of Service: 06/16/23 Subjective Awake and pleasant this am wound vac in place, pain well controlled ROS 10 point ROS as noted above, otherwise negative Physical Exam General: Alert and oriented x 3, NAD, cachectic HEENT: Atraumatic, Normocephalic, PERRLA Neck: Supple, 2+ carotid pulse no bruit, JVD not distended Respiratory: Bilateral clear breath sounds, symmetrical chest wall movement, on RA, nonlabored breathing Cardiovascular: No edema, Normal pulses, regular rate and rhythm, normal S1 S2, no murmur noted Capillary refill: <2 Seconds Gastrointestinal: Normoactive bowel sounds, Soft and benign on palpation, ND/NT Musculoskeletal: No clubbing, No swelling, No contractures, Other (left BKA) Integumentary: Skin breakdown (multiple sacral wound) sound vac in place Neurological: Normal speech, Normal strength at 5/5 x4 extr, Normal tone Vitals Reviewed Problem list Weakness 2/2 debilitation Diabetes - IDDM Acute on Chronic kidney disease History of Anemia Atrial fibrillation Congestive Heart Failure History of DVT multiple wounds Hx HTN HLD Gout Lupus erythematosus Plan Weakness 2/2 debilitation -PT consulted and signed offworked well with therapy -SNF- per patient request -Home health through [facility] Hypoalbuminemia -Protein supplement Diabetes - IDDM -Accucheck with SSI -POC glucose 110- stable -Hypoglycemia protocol -restart gabapentin Stage II JUAREZ d/t hypovolemia CKD III -consult nephrology- Dr. Ochoa -BUN/Creatinine 58/2.27, GFR 22- improvement -gentle IVF-stopped per nephrology History of Anemia of chronic disease -H/H 8.5/25.8 post transfusion -Transfused one unit PRBC (06/14) -continue to monitor Atrial fibrillation (pacemaker) Congestive Heart Failure History of DVT -monitor fluid balance -continue home medications -restarted heparin BID multiple wounds -wound care evaluation and treatment plan -Right ear pressure ulcer stage III -Right buttocks pressure ulcer stage IV -Right thigh pressure ulcer stage III -Rash noted to bilateral buttocks/perianal and groin area -RT Buttocks/RT Thigh/RT Ear- Cleanse with soap/water;rinse well with NS. Apply Medihoney, gauze, foam daily and PRN for soilage/dislodgement. -Buttocks/perianal/groin rash- apply zinc oxide daily and prn. -Consult Dr. Fletcher- surgery I and D today 06/15- wound vac in place Hx HTN HLD Gout Lupus erythematosus -Continue home medications -BP stable -supportive care DVT ppx- heparin Full code Dispo-patient request [facility] <Asiya Jessica - Last Filed: 06/16/23 16:33> Patient seen and evaluated with Ms. Wyatt. She currently has no complaint. Status post debridement and wound VAC placement by Dr. Brown. Continue local wound care. Social service exploring options for skilled rehab at [facility]. Analgesics as needed. Continue other home medications. Nephrology is following. <munira johnson - Last Filed: 06/16/23 17:28>
[2023-06-16 12:57] LABS: Absolute Lymphocytes (CBC) 0.8 K/uL (0.7-4.9); Absolute Monocytes 0.6 K/uL (0.1-1.3); Absolute Neutrophil 10.1 K/uL (1.8-8.0); Basophils % 0.2 % (0-1.3); Hematocrit 25.8 % (36.0-45.0); Hemoglobin 8.5 g/dL (12.0-15.0); Lymphocytes % 6.8 % (15.3-44.8); MCH 28.3 pg (27.0-35.0); MCHC 32.8 g/dL (32.0-36.0); MCV 86.3 fL (80-100); MPV 9.8 fL (7.6-11.3); Nucleated Red Blood Cells % 0.1 % (0-0); Platelets 150 thou/uL (152-406); RBC Red Blood Cell Count 2.99 M/uL (3.86-4.86); Red Cell Distribution Width 18.2 % (12.1-15.2)
[2023-06-16 13:10] LABS: Anion Gap 10.3 mEq/L (5.0-15.0); Magnesium 1.9 mg/dL (1.6-2.4); Phosphorus 2.7 mg/dL (2.5-4.9); Potassium 5.3 mEq/L (3.5-5.1)
[2023-06-16 19:05] LABS: White Blood Cell Scan OK (OK)
[2023-06-16 19:06] LABS: Anisocytosis 1+; Blood Morphology Comment NOTED (NOT SEEN); Platelet Estimate ADEQ; Poikilocytosis 1+
[2023-06-16] MEDS: HEPARIN 5000 UNIT/ML 1 ML VIAL SQ SCH (21:16)
[2023-06-17 06:01] LABS: Absolute Lymphocytes (CBC) 1.1 K/uL (0.7-4.9); Absolute Monocytes 0.5 K/uL (0.1-1.3); Absolute Neutrophil 6.5 K/uL (1.8-8.0); Basophils % 0.2 % (0-1.3); Eosinophils % 0.1 % (0-4.4); Hematocrit 24.9 % (36.0-45.0); Hemoglobin 8.2 g/dL (12.0-15.0); MCH 28.1 pg (27.0-35.0); MCHC 32.7 g/dL (32.0-36.0); Monocytes % 6.6 % (3.3-12.3); Neutrophils % 80.1 % (41.7-73.7); Platelets 148 thou/uL (152-406); Red Cell Distribution Width 18.2 % (12.1-15.2)
[2023-06-17 06:16] LABS: Anion Gap 8.1 mEq/L (5.0-15.0); Magnesium 1.9 mg/dL (1.6-2.4); Phosphorus 2.6 mg/dL (2.5-4.9); Potassium 5.1 mEq/L (3.5-5.1)
--- NOTE | 2023-06-17 15:15 | P.PN ---
Date of Service: 06/17/23 S: Patient has no specific complaints, still complaining that her hip is tender, I do not believe it is ever been x-rayed. O: Wound vacs in place, dressings appear to be intact A: In better spirits, doing well with wound VAC applied P: Continue current therapy, x-ray of right hip and pelvis, continue with wound VAC therapy. Will check with social science teacher tomorrow, to see if this therapy could be maintained at home with visiting nurses.
--- NOTE | 2023-06-17 15:32 | P.PN ---
Date of Service: 06/17/23 Subjective Doing well this AM, eating breakfast requesting Benítez swing at discharge Wound vac in place, pain well controlled ROS 10 point ROS as noted above, otherwise negative Physical Exam General: AAOx3, NAD, cachectic, pleasant HEENT: Atraumatic, Normocephalic, PERRLA Neck: Supple, 2+ carotid pulse no bruit, JVD not distended Respiratory: symmetrical chest wall movement, bilaterally clear breath sounds on RA, nonlabored breathing Cardiovascular: RRR, No edema, normal S1 S2, no murmur noted Capillary refill: <2 Seconds Gastrointestinal: Normoactive bowel sounds, Soft and benign on palpation, ND/NT Musculoskeletal: No clubbing, No swelling, No contractures, Other (left BKA), 2+ peripheral pulses Integumentary: Skin breakdown (multiple sacral wound) wound vac in place Neurological: Normal speech, Normal strength at 5/5 x4 extr, Normal tone Vitals Reviewed Problem list Weakness 2/2 debilitation Diabetes - IDDM Acute on Chronic kidney disease History of Anemia Atrial fibrillation Congestive Heart Failure History of DVT multiple wounds Hx HTN HLD Gout Lupus erythematosus Plan Weakness 2/2 debilitation -PT consulted and signed offworked well with therapy -SNF- per patient request -Home health through [facility] Hypoalbuminemia -Protein supplement Diabetes - IDDM -Accucheck with SSI -POC glucose 123- stable -Hypoglycemia protocol -gabapentin Stage II JUAREZ d/t hypovolemia CKD III -consult nephrology- Dr. Ochoa -BUN/Creatinine 61/1.63, GFR 33- improvement -gentle IVF-stopped per nephrology History of Anemia of chronic disease -H/H 8.2/24.9 Stable -Transfused one unit PRBC (06/14) -continue to monitor Atrial fibrillation (pacemaker) Congestive Heart Failure History of DVT -monitor fluid balance -continue home medications -heparin BID -[facility] reports she hasn't been on eliquis recently -Afib underlying rhythm with some paced beats, HR 80 multiple wounds -wound care evaluation and treatment plan -Right ear pressure ulcer stage III -Right buttocks pressure ulcer stage IV -Right thigh pressure ulcer stage III -Rash noted to bilateral buttocks/perianal and groin area -RT Buttocks/RT Thigh/RT Ear- Cleanse with soap/water;rinse well with NS. Apply Medihoney, gauze, foam daily and PRN for soilage/dislodgement. -Buttocks/perianal/groin rash- apply zinc oxide daily and prn. -Consult Dr. Fletcher- surgery I and D today 06/15- wound vac in place Hx HTN HLD Gout Lupus erythematosus -Continue home medications -BP stable -supportive care DVT ppx- heparin Full code Dispo-patient request Jackelin escalona
--- NOTE | 2023-06-17 16:44 | RAD REPORT ---
EXAM DESCRIPTION: RAD - Hip Right 2 View - 06/17/2023 4:29 pm CLINICAL HISTORY: Right hip pain FINDINGS: No fracture or dislocation is seen. Osteoporosis Mild osteoarthritis right hip
[2023-06-18 07:12] LABS: Absolute Basophils 0.1 K/uL (0-0.5); Absolute Eosinophils 0.1 K/uL (0-0.5); Absolute Lymphocytes (CBC) 0.9 K/uL (0.7-4.9); Absolute Monocytes 0.6 K/uL (0.1-1.3); Absolute Neutrophil 6.5 K/uL (1.8-8.0); Basophils % 0.6 % (0-1.3); Eosinophils % 0.8 % (0-4.4); Hematocrit 26.9 % (36.0-45.0); Hemoglobin 8.8 g/dL (12.0-15.0); Lymphocytes % 11.4 % (15.3-44.8); MCH 28.3 pg (27.0-35.0); MCHC 32.6 g/dL (32.0-36.0); MCV 86.7 fL (80-100); MPV 9.5 fL (7.6-11.3); Monocytes % 7.5 % (3.3-12.3); Neutrophils % 79.7 % (41.7-73.7); Nucleated Red Blood Cells % 0.1 % (0-0); Platelets 174 thou/uL (152-406); Red Cell Distribution Width 18.2 % (12.1-15.2)
[2023-06-18 07:27] LABS: Anion Gap 6.2 mEq/L (5.0-15.0); Magnesium 1.9 mg/dL (1.6-2.4); Phosphorus 2.2 mg/dL (2.5-4.9); Potassium 5.2 mEq/L (3.5-5.1)
--- NOTE | 2023-06-18 11:01 | P.PN ---
Date of Service: 06/18/23 Vital Signs Temp Pulse Resp BP Pulse Ox 97.9 F 87 18 127/66 98 06/18/23 04:00 06/18/23 04:00 06/18/23 05:16 06/18/23 04:00 06/18/23 04:00 Medications Hydrocodone Bitart/Acetaminophen (Hydrocodone/Apap 7.5/325 Mg Tab) 1 tab PO Q6H PRN PRN Reason: Pain scale 5-7 (Moderate) Last Admin: 06/18/23 04:16 Dose: 1 tab Allopurinol (Allopurinol 100 Mg Tab) 100 mg PO DAILY [facility] Last Admin: 06/18/23 09:44 Dose: 100 mg Atorvastatin Calcium (Atorvastatin 10 Mg Tab) 10 mg PO BEDTIME [facility] Last Admin: 06/17/23 20:25 Dose: 10 mg Bumetanide (Bumetanide 1 Mg Tablet) 2 mg PO DAILY [facility] Last Admin: 06/18/23 09:43 Dose: 2 mg Diphenhydramine HCl (Diphenhydramine 50 Mg/Ml Vial) 12.5 mg IV 1X PRN PRN Reason: ITCHING Donepezil HCl (Donepezil Hcl 5 Mg Tab) 10 mg PO BEDTIME [facility] Last Admin: 06/17/23 20:25 Dose: 10 mg Emollient Gel (Medihoney 44 Ml Topical Tube) 1 appl TOP DAILY [facility] Last Admin: 06/18/23 09:42 Dose: 1 appl Gabapentin (Gabapentin 300 Mg Cap) 300 mg PO BID [facility] Last Admin: 06/18/23 09:44 Dose: 300 mg Heparin Sodium (Porcine) (Heparin 5000 Unit/Ml 1 Ml Vial) 5,000 unit SQ Q12HR [facility] Last Admin: 06/18/23 09:43 Dose: 5,000 unit Hydralazine HCl (Hydralazine Hcl 25 Mg Tablet) 25 mg PO BID [facility] Last Admin: 06/18/23 09:43 Dose: 25 mg Hydroxychloroquine Sulfate (Hydroxychloroquine 200mg Tab) 200 mg PO DAILY [facility] Last Admin: 06/18/23 09:43 Dose: 200 mg Sodium Chloride (Sodium Chloride) 250 mls @ 0 mls/hr IV .Q0M [facility] Insulin Human Regular (Insulin Regular (Human) 100 Unit/Ml) 0 unit SQ ACHS [facility]; Protocol Last Admin: 06/18/23 07:30 Dose: Not Given Metoprolol Tartrate (Metoprolol Tar 50 Mg Tab) 50 mg PO DAILY [facility] Last Admin: 06/18/23 09:43 Dose: 50 mg Pantoprazole Sodium (Pantoprazole 40mg Tablet) 40 mg PO DAILY [facility]; Protocol Last Admin: 06/18/23 09:44 Dose: 40 mg Zinc Oxide (Zinc Oxide 20% Ointment 60gm) 1 appl TOP BID [facility] Last Admin: 06/18/23 09:44 Dose: 1 appl Assessment/ Plan: Nephrology Progress Note No Dyspnea No Chest Pain Persistent pain +Appetite No Acute Events Overnight Vital Signs, Medications, Blood Work, and Imaging reviewed in the chart General: Oriented x3, Cooperative HEENT: Atraumatic Neck: Supple Respiratory: Clear to auscultation bilaterally Cardiovascular: No edema, Regular rate/rhythm Gastrointestinal: Soft and benign, Non-distended Musculoskeletal: No clubbing, No contractures. Left BKA. Integumentary: No rashes, No cyanosis Neurological: Normal speech Laboratory Data (last 24 hrs) 06/13/23 06/13/23 13:28 13:28 WBC 9.60 Hgb 9.9 L Hct 30.4 L Plt Count 176 Sodium 138 Potassium 3.9 BUN 59 H Creatinine 2.79 H Glucose 46 L* Total Bilirubin 0.4 AST 18 ALT 17 Alkaline Phosphatase 69 Conclusions/Impression: Stage II JUAREZ likely due to hypovolemia CKD III -No NSAIDs -Change IVF to 1/2NS Hyperkalemia -Lokelma X1 Hypophosphatemia -Encourage nutrition HTN with CKD/ CHF -Continue Metoprolol -Continue Hydralazine Diastolic CHF, chronic -Daily weight -Continue Bumex DM II with CKD & Polyneuropathy -RISS -Continue Gabapentin Hypoalbuminemia -Protein supplementation as tolerated Anemia in chronic illness -Monitor H&H -PRBC prn Hospitalist notes reviewed
[2023-06-18] MEDS: SODIUM ZIRCONIUM CYCLOSILICATE 10 GM/PKT PO ONE (12:24)
--- NOTE | 2023-06-18 14:06 | P.PN ---
Date of Service: 06/18/23 S: Patient has no specific complaints, having her wound VAC changed as we speak. O: Wounds look good, some necrotic debris in the base of the middle 1. A: Patient is surgically stable, wound VAC in place and working P: Will add Santyl into the wound VAC dressing, but patient may be transferred to [facility] to a swing bed or wherever she would like to rehab then. We are more than willing to follow her at my wound care clinic or if she is at [facility] her wound care could be done there. Either way patient is surgically stable for discharge.
[2023-06-18] MEDS: POTASS/SODIUM PHOSPHATE 1 PKT POWD.PACK PO SCH (16:22)
--- NOTE | 2023-06-18 18:12 | P.PN ---
Date of Service: 06/18/23 Subjective Awake and reading Tolerating PO diet with better intake No new complaints Awaiting [place] swing ROS 10 point ROS as noted above, otherwise negative Physical Exam General: Alert and oriented, NAD, cachectic, pleasant HEENT: Atraumatic, Normocephalic, PERRLA Neck: Supple, 2+ carotid pulse no bruit, JVD not distended Respiratory: nonlabored breathing, symmetrical chest wall movement, bilaterally clear breath sounds on RA Cardiovascular: Regular rate and rhythm, S1 S2 present, no murmur noted Capillary refill: <2 Seconds Gastrointestinal: Normoactive bowel sounds, Soft and benign on palpation, ND/NT Musculoskeletal: No clubbing, No swelling, No contractures, Other (left BKA), 2+ peripheral pulses Integumentary: Skin breakdown (multiple sacral wound) wound vac in place Neurological: Normal speech, Normal strength at 5/5 x4 extr, Normal tone Vitals Reviewed Problem list Weakness 2/2 debilitation Diabetes - IDDM Acute on Chronic kidney disease History of Anemia Atrial fibrillation Congestive Heart Failure History of DVT multiple wounds Hx HTN HLD Gout Lupus erythematosus Plan Weakness 2/2 debilitation -PT consulted and signed offworked well with therapy -SNF- per patient request -Home health through [facility] Hyperkalemic K 5.2 Lokelma x1 per nephrology Hypoalbuminemia -Protein supplement Diabetes - IDDM -Accucheck with SSI -POC glucose 123- stable -Hypoglycemia protocol -gabapentin Stage II JUAREZ d/t hypovolemia CKD III Hyperkalemic -K 5.2 -Lokelma x1 per nephrology -consult nephrology- Dr. Ochoa -BUN/Creatinine 65/1.44, GFR 38- improvement -gentle IVF-stopped per nephrology History of Anemia of chronic disease -H/H 8.8/26.9 Stable -Transfused one unit PRBC (06/14) -continue to monitor Atrial fibrillation (pacemaker) Congestive Heart Failure History of DVT -monitor fluid balance -continue home medications -heparin BID -[facility] reports she hasn't been on eliquis recently -Afib underlying rhythm with some paced beats, HR 96 multiple wounds -wound care evaluation and treatment plan -Right ear pressure ulcer stage III -Right buttocks pressure ulcer stage IV -Right thigh pressure ulcer stage III -Rash noted to bilateral buttocks/perianal and groin area -RT Buttocks/RT Thigh/RT Ear- Cleanse with soap/water;rinse well with NS. Apply Medihoney, gauze, foam daily and PRN for soilage/dislodgement. -Buttocks/perianal/groin rash- apply zinc oxide daily and prn. -Consult Dr. Fletcher- surgery I and D today 06/15- Surgery has cleared stable for discharge - wound vac in place settings per Dr. Granados Hx HTN HLD Gout Lupus erythematosus -Continue home medications -BP stable -supportive care DVT ppx- heparin Full code Dispo-patient request Jackelin escalona
[2023-06-18] MEDS: JUVEN PACKET PO SCH (21:23)
[2023-06-18] MEDS: GLUCERNA SHAKE 237 ML CAN PO SCH (21:23)
[2023-06-19 06:25] LABS: Absolute Eosinophils 0.1 K/uL (0-0.5); Absolute Monocytes 0.5 K/uL (0.1-1.3); Absolute Neutrophil 6.3 K/uL (1.8-8.0); Basophils % 0.4 % (0-1.3); Eosinophils % 1.2 % (0-4.4); Hematocrit 23.3 % (36.0-45.0); Hemoglobin 7.7 g/dL (12.0-15.0); Lymphocytes % 12.7 % (15.3-44.8); MCH 28.4 pg (27.0-35.0); MCHC 32.8 g/dL (32.0-36.0); MCV 86.4 fL (80-100); MPV 9.6 fL (7.6-11.3); Monocytes % 6.8 % (3.3-12.3); Neutrophils % 78.9 % (41.7-73.7); Platelets 158 thou/uL (152-406); Red Cell Distribution Width 18.1 % (12.1-15.2)
[2023-06-19 06:45] LABS: Anion Gap 4.9 mEq/L (5.0-15.0); Magnesium 1.6 mg/dL (1.6-2.4); Phosphorus 2.1 mg/dL (2.5-4.9); Potassium 4.9 mEq/L (3.5-5.1)
[2023-06-19 07:33] LABS: Ferritin 191.5 ng/mL (8-388)
[2023-06-19] MEDS: MAGNESIUM SULFATE 1 gm IVPB 1 GM/100 ML BAG IV ONE (11:23)
[2023-06-19] MEDS: POTASS/SODIUM PHOSPHATE 1 PKT POWD.PACK PO SCH (11:23)
--- NOTE | 2023-06-19 14:07 | P.PN ---
Date of Service: 06/19/23 Subjective: No acute events overnight Patient eating breakfast, sitting up in bed ROS: 10 point ROS as noted above, otherwise negative Physical exam GEN: Alert, oriented, NAD HEENT: Normal conjunctiva, sclera anicteric CV: Regular rate and rhythm, no edema Pulm: Nonlabored respirations on room air ABD: Soft, nontender, nondistended MSK: No joint tenderness Integumentary: Pressure sores to right thigh, right buttocks, right ear-wound VAC in place to right buttocks Neuro: Normal speech, normal affect Vitals reviewed Problem List Weakness 2/2 debilitation Diabetes - IDDM Acute on Chronic kidney disease History of Anemia Atrial fibrillation Congestive Heart Failure History of DVT multiple wounds Hx HTN HLD Gout Lupus erythematous Plan Weakness 2/2 debilitation -PT consulted and signed offworked well with therapy -SNF- per patient request -Home health through [facility] Hypoalbuminemia -Protein supplement Diabetes - IDDM -Accucheck with SSI Stage II JUAREZ d/t hypovolemia CKD III Hyperkalemic -consult nephrology- Dr. Ochoa History of Anemia of chronic disease -H/H 8.8/26.9 Stable -Transfused one unit PRBC (06/14) -continue to monitor Atrial fibrillation (pacemaker) Congestive Heart Failure History of DVT -monitor fluid balance -continue home medications -heparin BID -[facility] reports she hasn't been on eliquis recently -Afib underlying rhythm with some paced beats, HR 96 -Known history of GI bleeds Multiple decubitus ulcerations -wound care evaluation and treatment plan -Right ear pressure ulcer stage III -Right buttocks pressure ulcer stage IV -Right thigh pressure ulcer stage III -Rash noted to bilateral buttocks/perianal and groin area -RT Buttocks/RT Thigh/RT Ear- Cleanse with soap/water;rinse well with NS. Apply Medihoney, gauze, foam daily and PRN for soilage/dislodgement. -Buttocks/perianal/groin rash- apply zinc oxide daily and prn. -Consult Dr. Fletcher- surgery I and D today 06/15- Surgery has cleared stable for discharge - wound vac in place settings per Dr. Granados Hx HTN HLD Gout Lupus erythematosus -Continue home medications -BP stable -supportive care DVT ppx- heparin Full code Dispo-patient request Benítez swing Time Spent Managing Pts Care (In Minutes): 35
--- NOTE | 2023-06-19 15:05 | P.PN ---
Date of Service: 06/19/23 S: No complaints O: Wound VAC in place A: Patient is surgically stable, going to be transferred to [facility] P: Patient is free to follow-up with me at wound care center if needed.
[2023-06-19 16:29] LABS: Urine Bacteria <20 /HPF (<20); Urine Bilirubin NEGATIVE (Negative); Urine Blood Negative (Negative); Urine Clarity Extremely Turbid (Clear); Urine Color Light-Yellow (Yellow); Urine Crystals Unidentified Few /HPF (None Seen); Urine Glucose NEGATIVE (Negative); Urine Mucus Slight /HPF (None Seen); Urine Protein NEGATIVE (Negative); Urine RBC <5 /HPF (None Seen); Urine Urobilinogen Normal (Normal); Urine WBC Clump Few /HPF (None Seen)
--- NOTE | 2023-06-19 20:40 | P.PN ---
Date of Service: 06/19/23 Vital Signs Temp Pulse Resp BP Pulse Ox 98.0 F 60 15 92/50 L 99 06/19/23 16:00 06/19/23 16:00 06/19/23 16:00 06/19/23 16:00 06/19/23 16:00 Medications Hydrocodone Bitart/Acetaminophen (Hydrocodone/Apap 7.5/325 Mg Tab) 1 tab PO Q6H PRN PRN Reason: Pain scale 5-7 (Moderate) Last Admin: 06/19/23 18:53 Dose: 1 tab Allopurinol (Allopurinol 100 Mg Tab) 100 mg PO DAILY [facility] Last Admin: 06/19/23 09:22 Dose: 100 mg Atorvastatin Calcium (Atorvastatin 10 Mg Tab) 10 mg PO BEDTIME [facility] Last Admin: 06/18/23 21:23 Dose: 10 mg Bumetanide (Bumetanide 1 Mg Tablet) 2 mg PO DAILY [facility] Last Admin: 06/19/23 09:00 Dose: Not Given Diphenhydramine HCl (Diphenhydramine 50 Mg/Ml Vial) 12.5 mg IV 1X PRN PRN Reason: ITCHING Donepezil HCl (Donepezil Hcl 5 Mg Tab) 10 mg PO BEDTIME [facility] Last Admin: 06/18/23 21:23 Dose: 10 mg Emollient Gel (Medihoney 44 Ml Topical Tube) 1 appl TOP DAILY [facility] Last Admin: 06/19/23 09:00 Dose: 1 appl Enteral Nutritional Formula (Glucerna Shake 237 Ml Can) 237 ml PO BID [facility] Last Admin: 06/19/23 09:00 Dose: 237 ml Gabapentin (Gabapentin 300 Mg Cap) 300 mg PO BID [facility] Last Admin: 06/19/23 09:22 Dose: 300 mg Heparin Sodium (Porcine) (Heparin 5000 Unit/Ml 1 Ml Vial) 5,000 unit SQ Q12HR [facility] Last Admin: 06/19/23 09:00 Dose: Not Given Hydralazine HCl (Hydralazine Hcl 25 Mg Tablet) 25 mg PO BID [facility] Last Admin: 06/19/23 09:00 Dose: Not Given Hydroxychloroquine Sulfate (Hydroxychloroquine 200mg Tab) 200 mg PO DAILY [facility] Last Admin: 06/19/23 09:22 Dose: 200 mg Sodium Chloride (Sodium Chloride) 250 mls @ 0 mls/hr IV .Q0M [facility] Ferric Sodium Gluconate Complex 125 mg/ Sodium Chloride 110 mls @ 100 mls/hr IV DAILY [facility] Stop: 06/27/23 10:05 Insulin Human Regular (Insulin Regular (Human) 100 Unit/Ml) 0 unit SQ ACHS [facility]; Protocol Last Admin: 06/19/23 15:47 Dose: Not Given L-Arginine/L-Glutamine/HMB (Humble Packet) 1 pkt PO BID [facility] Last Admin: 06/19/23 09:00 Dose: 1 pkt Metoprolol Tartrate (Metoprolol Tar 50 Mg Tab) 50 mg PO DAILY [facility] Last Admin: 06/19/23 09:00 Dose: 50 mg Pantoprazole Sodium (Pantoprazole 40mg Tablet) 40 mg PO DAILY [facility]; Protocol Last Admin: 06/19/23 09:22 Dose: 40 mg Zinc Oxide (Zinc Oxide 20% Ointment 60gm) 1 appl TOP BID [facility] Last Admin: 06/19/23 09:00 Dose: Not Given Assessment/ Plan: Nephrology Progress Note No Dyspnea No Chest Pain Persistent pain +Appetite No Acute Events Overnight Vital Signs, Medications, Blood Work, and Imaging reviewed in the chart General: Oriented x3, Cooperative HEENT: Atraumatic Neck: Supple Respiratory: Clear to auscultation bilaterally Cardiovascular: No edema, Regular rate/rhythm Gastrointestinal: Soft and benign, Non-distended Musculoskeletal: No clubbing, No contractures. Left BKA. Integumentary: No rashes, No cyanosis Neurological: Normal speech Laboratory Data (last 24 hrs) 06/13/23 06/13/23 13:28 13:28 WBC 9.60 Hgb 9.9 L Hct 30.4 L Plt Count 176 Sodium 138 Potassium 3.9 BUN 59 H Creatinine 2.79 H Glucose 46 L* Total Bilirubin 0.4 AST 18 ALT 17 Alkaline Phosphatase 69 Conclusions/Impression: Stage II JUAREZ likely due to hypovolemia CKD III -No NSAIDs Hyperkalemia -Lokelma prn Hypophosphatemia -Encourage nutrition -Replete prn HTN with CKD/ CHF -Continue Metoprolol -Continue Hydralazine Diastolic CHF, chronic -Daily weight -Continue Bumex DM II with CKD & Polyneuropathy -RISS -Continue Gabapentin Hypoalbuminemia -Continue protein supplementation as tolerated Anemia in chronic illness Iron Deficiency -Monitor H&H -PRBC prn -Continue IV iron Hospitalist notes reviewed
[2023-06-20 06:27] LABS: Absolute Basophils 0.1 K/uL (0-0.5); Absolute Eosinophils 0.1 K/uL (0-0.5); Absolute Lymphocytes (CBC) 1.2 K/uL (0.7-4.9); Absolute Monocytes 0.7 K/uL (0.1-1.3); Absolute Neutrophil 6.6 K/uL (1.8-8.0); Basophils % 0.7 % (0-1.3); Eosinophils % 1.3 % (0-4.4); Hemoglobin 7.6 g/dL (12.0-15.0); Lymphocytes % 13.9 % (15.3-44.8); MCH 28.3 pg (27.0-35.0); MCHC 32.9 g/dL (32.0-36.0); MPV 9.1 fL (7.6-11.3); Monocytes % 7.8 % (3.3-12.3); Neutrophils % 76.3 % (41.7-73.7); Platelets 170 thou/uL (152-406); RBC Red Blood Cell Count 2.67 M/uL (3.86-4.86); Red Cell Distribution Width 18.1 % (12.1-15.2)
[2023-06-20 06:54] LABS: Anion Gap 5.9 mEq/L (5.0-15.0); Magnesium 1.9 mg/dL (1.6-2.4); Phosphorus 2.4 mg/dL (2.5-4.9); Potassium 4.9 mEq/L (3.5-5.1)
[2023-06-20] MEDS: POTASS/SODIUM PHOSPHATE 1 PKT POWD.PACK PO SCH (09:00)
[2023-06-20] MEDS: SOD FERRIC GLUC COMPLX/SUCROSE 125 MG in NA CHLORIDE 0.9% 100 ML IV SCH (09:01)
--- NOTE | 2023-06-20 13:55 | P.PN ---
Date of Service: 06/20/23 Subjective: No acute events overnight Patient concerned with possible disposition ROS: 10 point ROS as noted above, otherwise negative Physical exam GEN: Alert, oriented, NAD HEENT: Normal conjunctiva, sclera anicteric CV: Regular rate and rhythm, no edema Pulm: Nonlabored respirations on room air ABD: Soft, nontender, nondistended MSK: No joint tenderness Integumentary: Pressure sores to right thigh, right buttocks, right ear-wound VAC in place to right buttocks, left BKA noted Neuro: Normal speech, normal affect Vitals reviewed Problem List Weakness /debilitation Diabetes - IDDM Acute on Chronic kidney disease History of Anemia Atrial fibrillation Congestive Heart Failure History of DVT multiple wounds Hx HTN HLD Gout Lupus erythematous Plan Weakness/debilitation PT consult in place Working on possible [facility] placement Hypoalbuminemia -Protein supplement Diabetes - IDDM -Accucheck with SSI Stage II JUAREZ d/t hypovolemia CKD III Hyperkalemic -consult nephrology- Dr. Ochoa History of Anemia of chronic disease -Transfused one unit PRBC (06/14) -continue to monitor -IV iron Atrial fibrillation (pacemaker) Congestive Heart Failure History of DVT -monitor fluid balance -continue home medications -heparin BID -[facility] reports she hasn't been on eliquis recently -Afib underlying rhythm with some paced beats, HR 96 -Known history of GI bleeds Multiple decubitus ulcerations -wound care evaluation and treatment plan -Right ear pressure ulcer stage III -Right buttocks pressure ulcer stage IV -Right thigh pressure ulcer stage III -Rash noted to bilateral buttocks/perianal and groin area -RT Buttocks/RT Thigh/RT Ear- Cleanse with soap/water;rinse well with NS. Apply Medihoney, gauze, foam daily and PRN for soilage/dislodgement. -Buttocks/perianal/groin rash- apply zinc oxide daily and prn. -Consult Dr. Fletcher- surgery I and D today 06/15- Surgery has cleared stable for discharge - wound vac in place settings per Dr. Granados Hx HTN HLD Gout Lupus erythematosus -Continue home medications -BP stable -supportive care DVT ppx- heparin Full code Dispo-patient request Benítez swing Time Spent Managing Pts Care (In Minutes): 35
[2023-06-20] MEDS: HYDROCODONE/APAP 7.5/325 MG TAB PO PRN (15:07)
--- NOTE | 2023-06-20 21:08 | P.PN ---
Date of Service: 06/20/23 Vital Signs Temp Pulse Resp BP Pulse Ox 98.1 F 94 H 16 114/57 L 96 06/20/23 19:39 06/20/23 19:39 06/20/23 21:03 06/20/23 19:39 06/20/23 21:03 Medications Hydrocodone Bitart/Acetaminophen (Hydrocodone/Apap 7.5/325 Mg Tab) 1 tab PO Q6H PRN PRN Reason: Pain scale 5-7 (Moderate) Last Admin: 06/20/23 21:03 Dose: 1 tab Allopurinol (Allopurinol 100 Mg Tab) 100 mg PO DAILY [facility] Last Admin: 06/20/23 09:00 Dose: 100 mg Atorvastatin Calcium (Atorvastatin 10 Mg Tab) 10 mg PO BEDTIME [facility] Last Admin: 06/20/23 20:47 Dose: 10 mg Bumetanide (Bumetanide 1 Mg Tablet) 2 mg PO DAILY [facility] Last Admin: 06/20/23 08:59 Dose: 2 mg Diphenhydramine HCl (Diphenhydramine 50 Mg/Ml Vial) 12.5 mg IV 1X PRN PRN Reason: ITCHING Donepezil HCl (Donepezil Hcl 5 Mg Tab) 10 mg PO BEDTIME [facility] Last Admin: 06/20/23 20:47 Dose: 10 mg Emollient Gel (Medihoney 44 Ml Topical Tube) 1 appl TOP DAILY [facility] Last Admin: 06/20/23 15:13 Dose: 1 appl Enteral Nutritional Formula (Glucerna Shake 237 Ml Can) 237 ml PO BID [facility] Last Admin: 06/20/23 20:48 Dose: Not Given Gabapentin (Gabapentin 300 Mg Cap) 300 mg PO BID [facility] Last Admin: 06/20/23 20:47 Dose: 300 mg Heparin Sodium (Porcine) (Heparin 5000 Unit/Ml 1 Ml Vial) 5,000 unit SQ Q12HR [facility] Last Admin: 06/20/23 20:47 Dose: 5,000 unit Hydralazine HCl (Hydralazine Hcl 25 Mg Tablet) 25 mg PO BID [facility] Last Admin: 06/20/23 20:55 Dose: Not Given Hydroxychloroquine Sulfate (Hydroxychloroquine 200mg Tab) 200 mg PO DAILY [facility] Last Admin: 06/20/23 09:00 Dose: 200 mg Sodium Chloride (Sodium Chloride) 250 mls @ 0 mls/hr IV .Q0M [facility] Ferric Sodium Gluconate Complex 125 mg/ Sodium Chloride 110 mls @ 100 mls/hr IV DAILY [facility] Stop: 06/27/23 10:05 Last Admin: 06/20/23 09:01 Dose: 110 mls Insulin Human Regular (Insulin Regular (Human) 100 Unit/Ml) 0 unit SQ ACHS [facility]; Protocol Last Admin: 06/20/23 20:48 Dose: Not Given L-Arginine/L-Glutamine/HMB (Humble Packet) 1 pkt PO BID [facility] Last Admin: 06/20/23 20:48 Dose: 1 pkt Metoprolol Tartrate (Metoprolol Tar 50 Mg Tab) 50 mg PO DAILY [facility] Last Admin: 06/20/23 08:59 Dose: 50 mg Pantoprazole Sodium (Pantoprazole 40mg Tablet) 40 mg PO DAILY [facility]; Protocol Last Admin: 06/20/23 09:00 Dose: 40 mg Zinc Oxide (Zinc Oxide 20% Ointment 60gm) 1 appl TOP BID [facility] Last Admin: 06/20/23 21:00 Dose: 1 appl Assessment/ Plan: Nephrology Progress Note No Dyspnea No Chest Pain Persistent pain +Appetite No Acute Events Overnight Vital Signs, Medications, Blood Work, and Imaging reviewed in the chart General: Oriented x3, Cooperative HEENT: Atraumatic Neck: Supple Respiratory: Clear to auscultation bilaterally Cardiovascular: No edema, Regular rate/rhythm Gastrointestinal: Soft and benign, Non-distended Musculoskeletal: No clubbing, No contractures. Left BKA. Integumentary: No rashes, No cyanosis Neurological: Normal speech Laboratory Data (last 24 hrs) 06/13/23 06/13/23 13:28 13:28 WBC 9.60 Hgb 9.9 L Hct 30.4 L Plt Count 176 Sodium 138 Potassium 3.9 BUN 59 H Creatinine 2.79 H Glucose 46 L* Total Bilirubin 0.4 AST 18 ALT 17 Alkaline Phosphatase 69 Conclusions/Impression: Stage II JUAREZ likely due to hypovolemia CKD III -No NSAIDs Hyperkalemia -Lokelma prn Hypophosphatemia -Encourage nutrition -Replete prn HTN with CKD/ CHF -Continue Metoprolol -Continue Hydralazine Diastolic CHF, chronic -Daily weight -Continue Bumex DM II with CKD & Polyneuropathy -RISS -Continue Gabapentin Hypoalbuminemia -Continue protein supplementation as tolerated Anemia in chronic illness Iron Deficiency -Monitor H&H -PRBC prn -Continue IV iron Hospitalist notes reviewed Case reviewed with hospitalist team
[2023-06-21 03:56] LABS: Absolute Basophils 0.1 K/uL (0-0.5); Absolute Eosinophils 0.1 K/uL (0-0.5); Absolute Lymphocytes (CBC) 1.1 K/uL (0.7-4.9); Absolute Monocytes 0.7 K/uL (0.1-1.3); Absolute Neutrophil 7.8 K/uL (1.8-8.0); Basophils % 0.9 % (0-1.3); Eosinophils % 1.3 % (0-4.4); Hematocrit 28.4 % (36.0-45.0); Hemoglobin 9.2 g/dL (12.0-15.0); Lymphocytes % 10.9 % (15.3-44.8); MCH 27.9 pg (27.0-35.0); MCHC 32.3 g/dL (32.0-36.0); MCV 86.3 fL (80-100); MPV 9.5 fL (7.6-11.3); Monocytes % 6.8 % (3.3-12.3); Neutrophils % 80.1 % (41.7-73.7); Platelets 197 thou/uL (152-406); RBC Red Blood Cell Count 3.29 M/uL (3.86-4.86); Red Cell Distribution Width 18.2 % (12.1-15.2)
[2023-06-21 04:10] LABS: Anion Gap 8.2 mEq/L (5.0-15.0); Magnesium 1.8 mg/dL (1.6-2.4); Phosphorus 2.8 mg/dL (2.5-4.9); Potassium 4.2 mEq/L (3.5-5.1)
[2023-06-21] MEDS: MAGNESIUM SULFATE 1 gm IVPB 1 GM/100 ML BAG IV ONE (06:09)
--- NOTE | 2023-06-21 12:47 | P.PN ---
Date of Service: 06/21/23 Subjective: No acute events overnight Patient concerned with possible disposition ROS: 10 point ROS as noted above, otherwise negative Physical exam GEN: Alert, oriented, NAD HEENT: Normal conjunctiva, sclera anicteric CV: Regular rate and rhythm, no edema Pulm: Nonlabored respirations on room air ABD: Soft, nontender, nondistended MSK: No joint tenderness Integumentary: Pressure sores to right thigh, right buttocks, right ear-wound VAC in place to right buttocks, left BKA noted Neuro: Normal speech, normal affect Vitals reviewed Problem List Weakness /debilitation Diabetes - IDDM UTI Acute on Chronic kidney disease History of Anemia Atrial fibrillation Congestive Heart Failure History of DVT multiple wounds Hx HTN HLD Gout Lupus erythematous Plan Weakness/debilitation PT consult in place Working on possible long term placement Hypoalbuminemia -Protein supplement Diabetes - IDDM -Accucheck with SSI UTI-E.coli Started on Levaquin for 5 days Stage II JUAREZ d/t hypovolemia CKD III Hyperkalemic -consult nephrology- Dr. Ochoa History of Anemia of chronic disease -Transfused one unit PRBC (06/14) -continue to monitor -IV iron Atrial fibrillation (pacemaker) Congestive Heart Failure History of DVT -monitor fluid balance -continue home medications -heparin BID -[facility] reports she hasn't been on eliquis recently -Afib underlying rhythm with some paced beats, HR 96 -Known history of GI bleeds Multiple decubitus ulcerations -wound care evaluation and treatment plan -Right ear pressure ulcer stage III -Right buttocks pressure ulcer stage IV -Right thigh pressure ulcer stage III -Rash noted to bilateral buttocks/perianal and groin area -RT Buttocks/RT Thigh/RT Ear- Cleanse with soap/water;rinse well with NS. Apply Medihoney, gauze, foam daily and PRN for soilage/dislodgement. -Buttocks/perianal/groin rash- apply zinc oxide daily and prn. -Consult Dr. Brown- surgery I and D today 06/15- Surgery has cleared stable for discharge - wound vac in place settings per Dr. Brown Hx HTN HLD Gout Lupus erythematosus -Continue home medications -BP stable -supportive care DVT ppx- heparin Full code Dispo-patient request Benítez swing Time Spent Managing Pts Care (In Minutes): 35
--- NOTE | 2023-06-21 21:38 | P.PN ---
Date of Service: 06/21/23 Vital Signs Temp Pulse Resp BP Pulse Ox 97.7 F 92 H 18 121/67 99 06/21/23 20:00 06/21/23 20:00 06/21/23 20:00 06/21/23 20:00 06/21/23 20:00 Medications Hydrocodone Bitart/Acetaminophen (Hydrocodone/Apap 7.5/325 Mg Tab) 1 tab PO Q6H PRN PRN Reason: Pain scale 5-7 (Moderate) Last Admin: 06/21/23 16:21 Dose: 1 tab Allopurinol (Allopurinol 100 Mg Tab) 100 mg PO DAILY [facility] Last Admin: 06/21/23 10:22 Dose: 100 mg Atorvastatin Calcium (Atorvastatin 10 Mg Tab) 10 mg PO BEDTIME [facility] Last Admin: 06/21/23 20:46 Dose: 10 mg Bumetanide (Bumetanide 1 Mg Tablet) 2 mg PO DAILY [facility] Last Admin: 06/21/23 10:15 Dose: 2 mg Diphenhydramine HCl (Diphenhydramine 50 Mg/Ml Vial) 12.5 mg IV 1X PRN PRN Reason: ITCHING Donepezil HCl (Donepezil Hcl 5 Mg Tab) 10 mg PO BEDTIME [facility] Last Admin: 06/21/23 20:45 Dose: 10 mg Emollient Gel (Medihoney 44 Ml Topical Tube) 1 appl TOP DAILY [facility] Last Admin: 06/21/23 09:00 Dose: 1 appl Enteral Nutritional Formula (Glucerna Shake 237 Ml Can) 237 ml PO BID [facility] Last Admin: 06/21/23 20:47 Dose: 237 ml Gabapentin (Gabapentin 300 Mg Cap) 300 mg PO BID [facility] Last Admin: 06/21/23 20:46 Dose: 300 mg Heparin Sodium (Porcine) (Heparin 5000 Unit/Ml 1 Ml Vial) 5,000 unit SQ Q12HR [facility] Last Admin: 06/21/23 20:46 Dose: 5,000 unit Hydralazine HCl (Hydralazine Hcl 25 Mg Tablet) 25 mg PO BID [facility] Last Admin: 06/21/23 20:46 Dose: 25 mg Hydroxychloroquine Sulfate (Hydroxychloroquine 200mg Tab) 200 mg PO DAILY [facility] Last Admin: 06/21/23 10:21 Dose: 200 mg Sodium Chloride (Sodium Chloride) 250 mls @ 0 mls/hr IV .Q0M [facility] Ferric Sodium Gluconate Complex 125 mg/ Sodium Chloride 110 mls @ 100 mls/hr IV DAILY [facility] Stop: 06/27/23 10:05 Last Admin: 06/21/23 10:17 Dose: 110 mls Insulin Human Regular (Insulin Regular (Human) 100 Unit/Ml) 0 unit SQ ACHS [facility]; Protocol Last Admin: 06/21/23 16:16 Dose: Not Given L-Arginine/L-Glutamine/HMB (Humble Packet) 1 pkt PO BID [facility] Last Admin: 06/21/23 20:47 Dose: 1 pkt Levofloxacin (Levofloxacin 750 Mg Tab) 750 mg PO Q48H [facility]; Protocol Metoprolol Tartrate (Metoprolol Tar 50 Mg Tab) 50 mg PO DAILY [facility] Last Admin: 06/21/23 10:19 Dose: 50 mg Pantoprazole Sodium (Pantoprazole 40mg Tablet) 40 mg PO DAILY [facility]; Protocol Last Admin: 06/21/23 10:21 Dose: 40 mg Zinc Oxide (Zinc Oxide 20% Ointment 60gm) 1 appl TOP BID [facility] Last Admin: 06/21/23 09:00 Dose: 1 appl Assessment/ Plan: Nephrology Progress Note No Dyspnea No Chest Pain +Appetite No Acute Events Overnight Vital Signs, Medications, Blood Work, and Imaging reviewed in the chart General: Oriented x3, Cooperative HEENT: Atraumatic Neck: Supple Respiratory: Clear to auscultation bilaterally Cardiovascular: No edema, Regular rate/rhythm Gastrointestinal: Soft and benign, Non-distended Musculoskeletal: No clubbing, No contractures. Left BKA. Integumentary: No rashes, No cyanosis Neurological: Normal speech Laboratory Data (last 24 hrs) 06/13/23 06/13/23 13:28 13:28 WBC 9.60 Hgb 9.9 L Hct 30.4 L Plt Count 176 Sodium 138 Potassium 3.9 BUN 59 H Creatinine 2.79 H Glucose 46 L* Total Bilirubin 0.4 AST 18 ALT 17 Alkaline Phosphatase 69 Conclusions/Impression: Stage II JUAREZ likely due to hypovolemia CKD III -No NSAIDs -Discontinue bumetanide at this time Hyperkalemia -Lokelma prn Hypophosphatemia -Encourage nutrition -Replete prn HTN with CKD/ CHF -Continue Metoprolol -Continue Hydralazine Diastolic CHF, chronic -Daily weight -Hold Bumex DM II with CKD & Polyneuropathy -RISS -Continue Gabapentin Hypoalbuminemia -Continue protein supplementation as tolerated Anemia in chronic illness Iron Deficiency -Monitor H&H -PRBC prn -Continue IV iron Hospitalist notes reviewed Case reviewed with hospitalist team
[2023-06-22 07:28] LABS: Anion Gap 5.6 mEq/L (5.0-15.0); Magnesium 2.1 mg/dL (1.6-2.4); Phosphorus 2.2 mg/dL (2.5-4.9); Potassium 4.6 mEq/L (3.5-5.1)
[2023-06-22 07:37] LABS: Absolute Eosinophils 0.1 K/uL (0-0.5); Absolute Lymphocytes (CBC) 0.7 K/uL (0.7-4.9); Absolute Monocytes 0.6 K/uL (0.1-1.3); Absolute Neutrophil 8.4 K/uL (1.8-8.0); Basophils % 0.4 % (0-1.3); Eosinophils % 0.6 % (0-4.4); Hematocrit 25.7 % (36.0-45.0); Hemoglobin 8.5 g/dL (12.0-15.0); Lymphocytes % 7.4 % (15.3-44.8); MCH 28.6 pg (27.0-35.0); MCV 86.7 fL (80-100); MPV 9.1 fL (7.6-11.3); Monocytes % 6.4 % (3.3-12.3); Neutrophils % 85.2 % (41.7-73.7); Platelets 221 thou/uL (152-406); RBC Red Blood Cell Count 2.97 M/uL (3.86-4.86); Red Cell Distribution Width 17.9 % (12.1-15.2)
[2023-06-22 10:39] LABS: Anisocytosis 1+; Blood Morphology Comment NOTED (NOT SEEN); Platelet Estimate ADEQ; White Blood Cell Scan OK (OK)
--- NOTE | 2023-06-22 12:30 | P.PN ---
Nephrology (S) No acute complaints, denies dyspnea, seen eating some lunch, remains in bed, wound vac present, weathers in place (O) Vitals, medications, blood work and imaging reviewed in the chart General: Elderly, frail, NAD HEENT: Atraumatic. Dry oral mucosa, not on o2 Neck: Supple Respiratory: b/l air entry without rhonchi Cardiovascular: No current LE edema, Regular rate/rhythm mostly Gastrointestinal: Soft and benign, Non-distended Musculoskeletal: Muscle mass loss, Other (Left BKA), SCD Rt LE Integumentary: See description elsewhere of wounds Neurological: awake, alert, no tremors Blood work reviewed in the chart. Conclusions/Impression: Stage II JUAREZ, hx of freq JUAREZ (pre-renal, or other episodes) in the past, unde rlying CKD Stage IIIb (prior renal imaging unremarkable on CT) -Cr level did downward trend but off IVF, back up slightly and azotemia persist/worse. Order NS IVF Metab alkalosis -No N/V reported, diuretics on hold. Will order NS IVF HTN with CKD -BP not elevated currently. Suspend Hydralazine Diastolic CHF, chronic -No signs of current fluid overload -Maintenance diuretics on hold Jeramy Edwards MD, ARMEN
[2023-06-22] MEDS: levoFLOXacin 750 MG TAB PO SCH (12:59)
[2023-06-22] MEDS: NA CHLORIDE 0.9% 1,000 ML IV SCH (12:59)
[2023-06-22] MEDS: HYDROCODONE/APAP 10/325 TAB PO PRN (13:03)
--- NOTE | 2023-06-22 14:39 | P.PN ---
Date of Service: 06/22/23 Subjective: No acute events overnight Patient concerned with possible disposition ROS: 10 point ROS as noted above, otherwise negative Physical exam GEN: Alert, oriented, NAD HEENT: Normal conjunctiva, sclera anicteric CV: Regular rate and rhythm, no edema Pulm: Nonlabored respirations on room air ABD: Soft, nontender, nondistended MSK: No joint tenderness Integumentary: Pressure sores to right thigh, right buttocks, right ear-wound VAC in place to right buttocks, left BKA noted Neuro: Normal speech, normal affect Vitals reviewed Problem List Weakness /debilitation Diabetes - IDDM UTI Acute on Chronic kidney disease History of Anemia Atrial fibrillation Congestive Heart Failure History of DVT multiple wounds Hx HTN HLD Gout Lupus erythematous Plan Weakness/debilitation PT consult in place Working on possible detention placement Hypoalbuminemia -Protein supplement Diabetes - IDDM -Accucheck with SSI UTI-E.coli Started on Levaquin for 7 days Stage II JUAREZ d/t hypovolemia CKD III Hyperkalemic -consult nephrology- Dr. Ochoa History of Anemia of chronic disease -Transfused one unit PRBC (06/14) -continue to monitor -IV iron Atrial fibrillation (pacemaker) Congestive Heart Failure History of DVT -monitor fluid balance -continue home medications -heparin BID -[facility] reports she hasn't been on eliquis recently -Afib underlying rhythm with some paced beats, HR 96 -Known history of GI bleeds Multiple decubitus ulcerations -wound care evaluation and treatment plan -Right ear pressure ulcer stage III -Right buttocks pressure ulcer stage IV -Right thigh pressure ulcer stage III -Rash noted to bilateral buttocks/perianal and groin area -RT Buttocks/RT Thigh/RT Ear- Cleanse with soap/water;rinse well with NS. Apply Medihoney, gauze, foam daily and PRN for soilage/dislodgement. -Buttocks/perianal/groin rash- apply zinc oxide daily and prn. -Consult Dr. Brown- surgery I and D today 06/15- Surgery has cleared stable for discharge - wound vac in place settings per Dr. Brown Hx HTN HLD Gout Lupus erythematosus -Continue home medications -BP stable -supportive care DVT ppx- heparin Full code Dispo-SNF vs HH/SN 48-72 hours Time Spent Managing Pts Care (In Minutes): 35
[2023-06-23 04:22] LABS: Anion Gap 5.3 mEq/L (5.0-15.0); Phosphorus 2.3 mg/dL (2.5-4.9); Potassium 4.3 mEq/L (3.5-5.1)
[2023-06-23] MEDS: POTASS/SODIUM PHOSPHATE 1 PKT POWD.PACK PO SCH (08:50)
--- NOTE | 2023-06-23 12:00 | P.PN ---
Date of Service: 06/23/23 Subjective: No acute events overnight Patient concerned with possible disposition ROS: 10 point ROS as noted above, otherwise negative Physical exam GEN: Alert, oriented, NAD HEENT: Normal conjunctiva, sclera anicteric CV: Regular rate and rhythm, no edema Pulm: Nonlabored respirations on room air ABD: Soft, nontender, nondistended MSK: No joint tenderness Integumentary: Pressure sores to right thigh, right buttocks, right ear-wound VAC in place to right buttocks, left BKA noted Neuro: Normal speech, normal affect Vitals reviewed Problem List Multiple decubitus ulcerations Weakness /debilitation Diabetes - IDDM UTI Hypoalbuminemia Acute on Chronic kidney disease History of Anemia Atrial fibrillation Congestive Heart Failure History of DVT Hx HTN HLD Gout Lupus erythematous Plan Multiple decubitus ulcerations -complex wound care and multiple wounds noted, patient would benefit with skilled placement to aid in treatment of multiple complex wounds and to -Right ear pressure ulcer stage III -Right buttocks pressure ulcer stage IV -Right thigh pressure ulcer stage III -Rash noted to bilateral buttocks/perianal and groin area -RT Buttocks/RT Thigh/RT Ear- Cleanse with soap/water;rinse well with NS. Apply Medihoney, gauze, foam daily and PRN for soilage/dislodgement. -Buttocks/perianal/groin rash- apply zinc oxide daily and prn. -Consult Dr. Brown- surgery I and D 06/15 - wound vac in place settings per Dr. Brown Weakness/debilitation PT consult in place Working on increasing bed mobility which would help with offloading current wounds and preventing future wounds Hypoalbuminemia -Protein supplement Diabetes - IDDM -Accucheck with SSI UTI-E.coli Started on Levaquin for 7 days Stage II JUAREZ d/t hypovolemia CKD III Hyperkalemic -consult nephrology- Dr. Ochoa History of Anemia of chronic disease -Transfused one unit PRBC (06/14) -continue to monitor -IV iron Atrial fibrillation (pacemaker) Congestive Heart Failure History of DVT -monitor fluid balance -continue home medications -heparin BID -[facility] reports she hasn't been on eliquis recently -Afib underlying rhythm with some paced beats -Known history of GI bleeds Hx HTN HLD Gout Lupus erythematosus -Continue home medications -BP stable -supportive care DVT ppx- heparin Full code Dispo-SNF Time Spent Managing Pts Care (In Minutes): 35
--- NOTE | 2023-06-23 15:30 | P.PN ---
Nephrology (S) No acute complaints, denies dyspnea, N/V/D (O) Vitals, medications, blood work and imaging reviewed in the chart General: Elderly, frail, NAD HEENT: Atraumatic. Dry oral mucosa, not on o2 Neck: Supple Respiratory: b/l air entry without rhonchi Cardiovascular: No current LE edema, Regular rate/rhythm mostly Gastrointestinal: Soft and benign, Non-distended Musculoskeletal: Muscle mass loss, Other (Left BKA), SCD Rt LE Integumentary: See description elsewhere of wounds Neurological: awake, alert, no tremors Blood work reviewed in the chart. Conclusions/Impression: Stage II JUAREZ, hx of freq JUAREZ (pre-renal, or other episodes) in the past, underlying CKD Stage IIIb (prior renal imaging unremarkable on CT) -Cr level did downward trend but off IVF, back up slightly and azotemia persists/worse although slightly better after NS IVF x 1L Metab alkalosis -No N/V reported, diuretics on hold. Trend HTN with CKD -BP not elevated currently. Suspended Hydralazine Diastolic CHF, chronic -No signs of current fluid overload -Maintenance diuretics on hold, auto-diuresing Jeramy Edwards MD, [facility]
[2023-06-24] MEDS: SOD FERRIC GLUC COMPLX/SUCROSE 125 MG in NA CHLORIDE 0.9% 100 ML IV SCH (09:42)
--- NOTE | 2023-06-24 14:35 | P.PN ---
Date of Service: 06/24/23 Subjective: No acute events overnight Continues to do well Doing exercises in bed recommended by PT ROS: 10 point ROS as noted above, otherwise negative Physical exam GEN: Alert, oriented, NAD HEENT: Normal conjunctiva, sclera anicteric CV: Regular rate and rhythm, no edema Pulm: Nonlabored respirations on room air ABD: Soft, nontender, nondistended MSK: No joint tenderness Integumentary: Pressure sores to right thigh, right buttocks, right ear-wound VAC in place to right buttocks, left BKA noted Neuro: Normal speech, normal affect Vitals reviewed Problem List Multiple decubitus ulcerations Weakness /debilitation Diabetes - IDDM UTI Hypoalbuminemia Acute on Chronic kidney disease History of Anemia Atrial fibrillation Congestive Heart Failure History of DVT Hx HTN HLD Gout Lupus erythematous Plan Multiple decubitus ulcerations -complex wound care and multiple wounds noted patient would benefit with skilled placement to aid in treatment of multiple complex wounds and to work on increasing bed ability which would help with offloading current wounds and preventing future wounds -Right ear pressure ulcer stage III -Right buttocks pressure ulcer stage IV -Right thigh pressure ulcer stage III -Rash noted to bilateral buttocks/perianal and groin area -RT Buttocks/RT Thigh/RT Ear- Cleanse with soap/water;rinse well with NS. Apply Medihoney, gauze, foam daily and PRN for soilage/dislodgement. -Buttocks/perianal/groin rash- apply zinc oxide daily and prn. -Consult Dr. Brown- surgery I and D 06/15 - wound vac in place settings per Dr. Brown Weakness/debilitation PT consult in place Working on increasing bed mobility which would help with offloading current wounds and preventing future wounds Hypoalbuminemia -Protein supplement Diabetes - IDDM -Accucheck with SSI UTI-E.coli Started on Levaquin for 7 days Stage II JUAREZ d/t hypovolemia CKD III Hyperkalemic -consult nephrology- Dr. Ochoa History of Anemia of chronic disease -Transfused one unit PRBC (06/14) -continue to monitor -IV iron Atrial fibrillation (pacemaker) Congestive Heart Failure History of DVT -monitor fluid balance -continue home medications -heparin BID -[facility] reports she hasn't been on eliquis recently -Afib underlying rhythm with some paced beats -Known history of GI bleeds Hx HTN HLD Gout Lupus erythematosus -Continue home medications -BP stable -supportive care DVT ppx- heparin Full code Dispo-SNF Time Spent Managing Pts Care (In Minutes): 35
[2023-06-24] MEDS: LOPERAMIDE HCL 2 MG CAPSULE PO STA (16:12)
[2023-06-25 07:25] LABS: Albumin 1.8 g/dL (3.4-5.0); Albumin/Globulin Ratio 0.4 (1.1-1.8); Anion Gap 6.9 mEq/L (5.0-15.0); Bilirubin Total 0.3 mg/dL (0.2-1.0); Globulin 4.5 g/dL (2.3-3.5); Potassium 3.9 mEq/L (3.5-5.1); Protein, Total 6.3 g/dL (6.4-8.2)
--- NOTE | 2023-06-25 09:46 | P.PN ---
Date of Service: 06/25/23 Subjective: Had 2 episodes of diarrhea yesterday she attributes to drinking too much milk No abdominal pain/chills/fever Very concerned with getting approval for SNF feels unable to care for herself at home ROS: 10 point ROS as noted above, otherwise negative Physical exam GEN: Alert, oriented, NAD HEENT: Normal conjunctiva, sclera anicteric CV: Regular rate and rhythm, no edema Pulm: Nonlabored respirations on room air ABD: Soft, nontender, nondistended MSK: No joint tenderness Integumentary: Pressure sores to right thigh, right buttocks, right ear-wound VAC in place to right buttocks, left BKA noted Neuro: Normal speech, normal affect Vitals reviewed Problem List Multiple decubitus ulcerations Weakness /debilitation Diabetes - IDDM UTI Hypoalbuminemia Acute on Chronic kidney disease History of Anemia Atrial fibrillation Congestive Heart Failure History of DVT Hx HTN HLD Gout Lupus erythematous Plan Multiple decubitus ulcerations -complex wound care and multiple wounds noted patient would benefit with skilled placement to aid in treatment of multiple complex wounds and to work on increasing bed ability which would help with offloading current wounds and preventing future wounds Patient lives at home, alone has a milled rice broker that comes out from 8 to 11 AM and assists her by our lift to get into chair [employer] Cleaning Supervisor used to come back from 5 to 7 PM but has not been coming last few weeks She is typically back in her bed at 11 AM and left alone until the following day at 8 AM Home health comes out 2 times per week for dressing changes typically for her She is unable to clean herself if she has a bowel movement, she is unable to cook for herself She wishes to improve her mobility to be able to get into her chair and stated more throughout the day and offload her wounds -Right ear pressure ulcer stage III -Right buttocks pressure ulcer stage IV -Right thigh pressure ulcer stage III -Rash noted to bilateral buttocks/perianal and groin area -RT Buttocks/RT Thigh/RT Ear- Cleanse with soap/water;rinse well with NS. Apply Medihoney, gauze, foam daily and PRN for soilage/dislodgement. -Buttocks/perianal/groin rash- apply zinc oxide daily and prn. -Consult Dr. Brown- surgery I and D 06/15 - wound vac in place settings per Dr. Brown Weakness/debilitation PT consult in place Working on increasing bed mobility which would help with offloading current wounds and preventing future wounds Hypoalbuminemia -Protein supplement Diabetes - IDDM -Accucheck with SSI UTI-E.coli Started on Levaquin for 7 days Stage II JUAREZ d/t hypovolemia CKD III Hyperkalemic -consult nephrology- Dr. Ochoa Creatinine up today Had diarrhea yesterday Given 1 L of NS at 75 cc/h 06/24 History of Anemia of chronic disease -Transfused one unit PRBC (06/14) -continue to monitor -IV iron Atrial fibrillation (pacemaker) Congestive Heart Failure History of DVT -monitor fluid balance -continue home medications -heparin BID -[facility] reports she hasn't been on eliquis recently -Afib underlying rhythm with some paced beats -Known history of GI bleeds Hx HTN HLD Gout Lupus erythematosus -Continue home medications -BP stable -supportive care DVT ppx- heparin Full code Dispo-SNF Time Spent Managing Pts Care (In Minutes): 35
[2023-06-25] MEDS: NA CHLORIDE 0.9% 1,000 ML IV SCH (10:30)
[2023-06-25] MEDS: LOPERAMIDE HCL 2 MG CAPSULE PO ONE (19:13)
--- NOTE | 2023-06-25 20:05 | P.PN ---
Date of Service: 06/25/23 Vital Signs Temp Pulse Resp BP Pulse Ox 98.9 F 63 18 116/56 L 99 06/25/23 16:00 06/25/23 16:00 06/25/23 16:00 06/25/23 16:00 06/25/23 16:00 Medications Hydrocodone Bitart/Acetaminophen (Hydrocodone/Apap 10/325 Tab) 1 tab PO Q6H PRN PRN Reason: Pain scale 5-7 (Moderate) Last Admin: 06/25/23 15:11 Dose: 1 tab Allopurinol (Allopurinol 100 Mg Tab) 100 mg PO DAILY [facility] Last Admin: 06/25/23 10:31 Dose: 100 mg Atorvastatin Calcium (Atorvastatin 10 Mg Tab) 10 mg PO BEDTIME [facility] Last Admin: 06/24/23 20:45 Dose: 10 mg Diphenhydramine HCl (Diphenhydramine 50 Mg/Ml Vial) 12.5 mg IV 1X PRN PRN Reason: ITCHING Donepezil HCl (Donepezil Hcl 5 Mg Tab) 10 mg PO BEDTIME [facility] Last Admin: 06/24/23 20:45 Dose: 10 mg Emollient Gel (Medihoney 44 Ml Topical Tube) 1 appl TOP DAILY [facility] Last Admin: 06/25/23 09:00 Dose: 1 appl Enteral Nutritional Formula (Glucerna Shake 237 Ml Can) 237 ml PO BID [facility] Last Admin: 06/25/23 09:00 Dose: Not Given Gabapentin (Gabapentin 300 Mg Cap) 300 mg PO BID [facility] Last Admin: 06/25/23 10:32 Dose: 300 mg Heparin Sodium (Porcine) (Heparin 5000 Unit/Ml 1 Ml Vial) 5,000 unit SQ Q12HR [facility] Last Admin: 06/25/23 10:32 Dose: 5,000 unit Hydroxychloroquine Sulfate (Hydroxychloroquine 200mg Tab) 200 mg PO DAILY [facility] Last Admin: 06/25/23 10:31 Dose: 200 mg Sodium Chloride (Sodium Chloride) 250 mls @ 0 mls/hr IV .Q0M [facility] Ferric Sodium Gluconate Complex 125 mg/ Sodium Chloride 110 mls @ 100 mls/hr IV DAILY [facility] Stop: 06/27/23 10:05 Last Admin: 06/25/23 11:42 Dose: 110 mls Sodium Chloride (Ns 1000 Ml Ivbag) 1,000 mls @ 75 mls/hr IV .[id number] [facility] Stop: 06/25/23 22:19 Last Admin: 06/25/23 10:30 Dose: 1,000 mls Insulin Human Regular (Insulin Regular (Human) 100 Unit/Ml) 0 unit SQ ACHS [facility]; Protocol Last Admin: 06/25/23 16:30 Dose: Not Given L-Arginine/L-Glutamine/HMB (Humble Packet) 1 pkt PO BID [facility] Last Admin: 06/25/23 10:34 Dose: 1 pkt Levofloxacin (Levofloxacin 750 Mg Tab) 750 mg PO Q48H [facility]; Protocol Stop: 06/28/23 13:01 Last Admin: 06/24/23 14:15 Dose: 750 mg Metoprolol Tartrate (Metoprolol Tar 50 Mg Tab) 50 mg PO DAILY [facility] Last Admin: 06/25/23 10:32 Dose: 50 mg Pantoprazole Sodium (Pantoprazole 40mg Tablet) 40 mg PO DAILY [facility]; Protocol Last Admin: 06/25/23 10:32 Dose: 40 mg Zinc Oxide (Zinc Oxide 20% Ointment 60gm) 1 appl TOP BID [facility] Last Admin: 06/25/23 09:00 Dose: 1 appl Assessment/ Plan: Nephrology Progress Note No Dyspnea No Chest Pain +Appetite No Acute Events Overnight Vital Signs, Medications, Blood Work, and Imaging reviewed in the chart General: Oriented x3, Cooperative HEENT: Atraumatic Neck: Supple Respiratory: Clear to auscultation bilaterally Cardiovascular: No edema, Regular rate/rhythm Gastrointestinal: Soft and benign, Non-distended Musculoskeletal: No clubbing, No contractures. Left BKA. Integumentary: No rashes, No cyanosis Neurological: Normal speech Laboratory Data (last 24 hrs) 06/13/23 06/13/23 13:28 13:28 WBC 9.60 Hgb 9.9 L Hct 30.4 L Plt Count 176 Sodium 138 Potassium 3.9 BUN 59 H Creatinine 2.79 H Glucose 46 L* Total Bilirubin 0.4 AST 18 ALT 17 Alkaline Phosphatase 69 Conclusions/Impression: Stage II JUAREZ likely due to hypovolemia CKD III -No NSAIDs Hyperkalemia -Lokelma prn Hypophosphatemia -Encourage nutrition -Replete prn HTN with CKD/ CHF -Continue Metoprolol Diastolic CHF, chronic -Daily weight -Bumex prn DM II with CKD & Polyneuropathy -RISS -Continue Gabapentin Hypoalbuminemia -Continue protein supplementation as tolerated Anemia in chronic illness Iron Deficiency -Monitor H&H -PRBC prn -Continue IV iron Hospitalist notes reviewed
[2023-06-26 06:58] LABS: Hematocrit 21.9 % (36.0-45.0); Hemoglobin 7.2 g/dL (12.0-15.0); MCH 28.9 pg (27.0-35.0); MCHC 32.9 g/dL (32.0-36.0); MCV 87.7 fL (80-100); MPV 8.9 fL (7.6-11.3); Platelets 166 thou/uL (152-406); RBC Red Blood Cell Count 2.49 M/uL (3.86-4.86); Red Cell Distribution Width 17.9 % (12.1-15.2)
[2023-06-26 07:18] LABS: Albumin 1.8 g/dL (3.4-5.0); Anion Gap 6.7 mEq/L (5.0-15.0); Phosphorus 2.2 mg/dL (2.5-4.9); Potassium 3.7 mEq/L (3.5-5.1)
[2023-06-26 12:56] VITALS: O2SAT 99
--- NOTE | 2023-06-26 14:40 | P.PN ---
Date of Service: 06/26/23 Subjective: Awake, in NAD, comfortable, working with therapy Awaiting placement ROS: 10 point ROS as noted above, otherwise negative Physical exam GEN: AAOx3, NAD, calm HEENT: Normal conjunctiva, sclera anicteric CV: RRR, no edema, S1 S2 present Pulm: Nonlabored respirations on room air, Bilaterally clear breath sounds, on RA ABD: Soft, nontender, nondistended MSK: No joint tenderness Integumentary: Pressure sores to right thigh, right buttocks, right ear-wound VAC in place to right buttocks, left BKA noted Neuro: Normal speech, normal affect Vitals reviewed Problem List Multiple decubitus ulcerations Weakness /debilitation Diabetes - IDDM UTI Hypoalbuminemia Acute on Chronic kidney disease History of Anemia Atrial fibrillation Congestive Heart Failure History of DVT Hx HTN HLD Gout Lupus erythematous Plan Multiple decubitus ulcerations -complex wound care and multiple wounds noted patient would benefit with skilled placement to aid in treatment of multiple complex wounds and to work on increasing bed ability which would help with offloading current wounds and preventing future wounds -Patient lives at home, alone has a private duty lpn that comes out from 8 to 11 AM and assists her by our lift to get into chair -Case Briefer used to come back from 5 to 7 PM but has not been coming last few weeks -She is typically back in her bed at 11 AM and left alone until the following day at 8 AM -Home health comes out 2 times per week for dressing changes typically for her -She is unable to clean herself if she has a bowel movement, she is unable to cook for herself -She wishes to improve her mobility to be able to get into her chair and stated more throughout the day and offload her wounds -Right ear pressure ulcer stage III -Right buttocks pressure ulcer stage IV -Right thigh pressure ulcer stage III -Rash noted to bilateral buttocks/perianal and groin area -RT Buttocks/RT Thigh/RT Ear- Cleanse with soap/water;rinse well with NS. Apply Medihoney, gauze, foam daily and PRN for soilage/dislodgement. -Buttocks/perianal/groin rash- apply zinc oxide daily and prn. -Consult Dr. Brown- surgery I and D 06/15 - wound vac in place settings per Dr. Brown Weakness/debilitation -PT consult in place -Working on increasing bed mobility which would help with offloading current wounds and preventing future wounds Hypoalbuminemia -Protein supplement Diabetes - IDDM -Accucheck with SSI UTI-E.coli -Started on Levaquin for 7 days Stage II JUAREZ d/t hypovolemia CKD III Hyperkalemic -consult nephrology- Dr. Ochoa -Creatinine 1.61, stable Had diarrhea yesterday Given 1 L of NS at 75 cc/h 06/24 History of Anemia of chronic disease -Transfused one unit PRBC (06/14) -continue to monitor -IV iron Atrial fibrillation (pacemaker) Congestive Heart Failure History of DVT -monitor fluid balance -continue home medications -heparin BID -[facility] reports she hasn't been on eliquis recently -Afib underlying rhythm with some paced beats -Known history of GI bleeds Hx HTN HLD Gout Lupus erythematosus -Continue home medications -BP stable -supportive care DVT ppx- heparin Full code [facility]po-S[facility]
[2023-06-26] MEDS: ENSURE ENLIVE 237 ML CAN PO SCH (17:00)
--- NOTE | 2023-06-26 17:23 | EKG ---
Test Date: 2023-06-21 Test Time: 10:29:[address] Instructor: BRICE Gibbs MEASUREMENT RESULTS: Intervals: Rate: 103 WA: QRSD: 116 QT: 360 QTc: 471 [place]: P: WA: QRS: -47 T: 153 INTERPRETIVE STATEMENTS: Atrial fibrillation with rapid ventricular response with premature ventricular or aberrantly conducted complexes Left anterior fascicular block Left ventricular hypertrophy with QRS widening Cannot rule out Septal infarct, age undetermined ST & T wave abnormality, consider lateral ischemia or digitalis effect Abnormal ECG Compared to ECG 06/07/2022 16:44:04 Ventricular premature complex(es) now present Left anterior fascicular block now present Left ventricular hypertrophy now present Myocardial infarct finding now present ST (T wave) deviation now present Possible ischemia now present Ventricular-paced complex(es) or rhythm no longer present Electronically Signed On 06-26-23 17:08:28 HEBREW PROFESSOR by Serafin Viera
[2023-06-27 07:18] LABS: Hematocrit 23.3 % (36.0-45.0); Hemoglobin 7.6 g/dL (12.0-15.0); MCH 28.7 pg (27.0-35.0); MCHC 32.5 g/dL (32.0-36.0); MCV 88.2 fL (80-100); MPV 8.7 fL (7.6-11.3); Platelets 180 thou/uL (152-406); RBC Red Blood Cell Count 2.64 M/uL (3.86-4.86)
[2023-06-27 07:32] LABS: Albumin 1.8 g/dL (3.4-5.0); Anion Gap 7.6 mEq/L (5.0-15.0); Phosphorus 1.9 mg/dL (2.5-4.9); Potassium 3.6 mEq/L (3.5-5.1)
[2023-06-27] MEDS ORDERED: SODIUM PHOSPHATE 20 MM in NA CHLORIDE 0.9% 250 ML IV SCH (09:00)
[2023-06-27] MEDS: POTASS/SODIUM PHOSPHATE 1 PKT POWD.PACK PO SCH (09:04)
--- NOTE | 2023-06-27 15:16 | P.PN ---
Date of Service: 06/27/23 Subjective: Doing well, comfortable c/o some pain from wound vac likely discharge to [facility] tomorrow (06/26) ROS: 10 point ROS as noted above, otherwise negative Physical exam GEN: Alert and oriented x3, NAD, calm HEENT: Normal conjunctiva, sclera anicteric CV: Regular rate and rhythm, no edema, S1 S2 present Pulm: Nonlabored respirations on room air, Bilaterally clear breath sounds, on RA ABD: Soft and benign, nontender, nondistended MSK: No joint tenderness Integumentary: Pressure sores to right thigh, right buttocks, right ear-wound VAC in place to right buttocks, left BKA noted Neuro: Normal speech, normal affect Vitals reviewed Problem List Multiple decubitus ulcerations Weakness /debilitation Diabetes - IDDM UTI Hypoalbuminemia Acute on Chronic kidney disease History of Anemia Atrial fibrillation Congestive Heart Failure History of DVT Hx HTN HLD Gout Lupus erythematous Plan Multiple decubitus ulcerations -complex wound care and multiple wounds noted patient would benefit with skilled placement to aid in treatment of multiple complex wounds and to work on increasing bed ability which would help with offloading current wounds and preventing future wounds -Patient lives at home, alone has a operation specialist that comes out from 8 to 11 AM and assists her by our lift to get into chair -Hydraulic Elevator Constructor used to come back from 5 to 7 PM but has not been coming last few weeks -She is typically back in her bed at 11 AM and left alone until the following day at 8 AM -Home health comes out 2 times per week for dressing changes typically for her -She is unable to clean herself if she has a bowel movement, she is unable to cook for herself -She wishes to improve her mobility to be able to get into her chair and stated more throughout the day and offload her wounds -Right ear pressure ulcer stage III -Right buttocks pressure ulcer stage IV -Right thigh pressure ulcer stage III -Rash noted to bilateral buttocks/perianal and groin area -RT Buttocks/RT Thigh/RT Ear- Cleanse with soap/water;rinse well with NS. Apply Medihoney, gauze, foam daily and PRN for soilage/dislodgement. -Buttocks/perianal/groin rash- apply zinc oxide daily and prn. -Consult Dr. Brown- surgery I and D 06/15 - wound vac in place settings per Dr. Brown Weakness/debilitation -PT consult in place -Working on increasing bed mobility which would help with offloading current wounds and preventing future wounds Hypoalbuminemia -Protein supplement Diabetes - IDDM -Accucheck with SSI UTI-E.coli -Started on Levaquin for 7 days Stage II JUAREZ d/t hypovolemia CKD III Hyperkalemic -consult nephrology- Dr. Ochoa -Creatinine 1.49, stable -Given 1 L of NS at 75 cc/h 06/24 History of Anemia of chronic disease -Transfused one unit PRBC (06/14) -continue to monitor -IV iron -H/H 7.10/13.3- stable Atrial fibrillation (pacemaker) Congestive Heart Failure History of DVT -monitor fluid balance -continue home medications -heparin BID -[facility] reports she hasn't been on eliquis recently -Afib underlying rhythm with some paced beats -Known history of GI bleeds Hx HTN HLD Gout Lupus erythematosus -Continue home medications -BP stable -supportive care DVT ppx- heparin [facility] code [facility]
[2023-06-28 04:39] LABS: Hematocrit 23.5 % (36.0-45.0); Hemoglobin 7.6 g/dL (12.0-15.0); MCH 28.4 pg (27.0-35.0); MCHC 32.2 g/dL (32.0-36.0); MCV 88.3 fL (80-100); MPV 9.3 fL (7.6-11.3); Platelets 162 thou/uL (152-406); RBC Red Blood Cell Count 2.66 M/uL (3.86-4.86); Red Cell Distribution Width 18.1 % (12.1-15.2)
[2023-06-28 05:33] LABS: Albumin 1.7 g/dL (3.4-5.0); Anion Gap 7.3 mEq/L (5.0-15.0); Phosphorus 1.9 mg/dL (2.5-4.9); Potassium 4.3 mEq/L (3.5-5.1)
[2023-06-28] MEDS: POTASS/SODIUM PHOSPHATE 1 PKT POWD.PACK PO SCH ×2 (06:00→10:00)
[2023-06-28] MEDS: DIPHENHYDRAMINE 50 MG/ML VIAL IV PRN (10:52)
[2023-06-28 13:54] VITALS: BP 111/52; TEMP 99.3
--- NOTE | 2023-06-28 21:37 | P.PN ---
Date of Service: 06/28/23 Vital Signs Temp Pulse Resp BP Pulse Ox 99.3 F 100 H 14 111/52 L 95 06/28/23 12:00 06/28/23 12:00 06/28/23 13:10 06/28/23 12:00 06/28/23 13:10 Assessment/ Plan: Nephrology Progress Note No Dyspnea No Chest Pain +Pain No Acute Events Overnight Vital Signs, Medications, Blood Work, and Imaging reviewed in the chart General: Oriented x3, Cooperative HEENT: Atraumatic Neck: Supple Respiratory: Clear to auscultation bilaterally Cardiovascular: No edema, Regular rate/rhythm Gastrointestinal: Soft and benign, Non-distended Musculoskeletal: No clubbing, No contractures. Left BKA. Integumentary: No rashes, No cyanosis Neurological: Normal speech Laboratory Data (last 24 hrs) 06/13/23 06/13/23 13:28 13:28 WBC 9.60 Hgb 9.9 L Hct 30.4 L Plt Count 176 Sodium 138 Potassium 3.9 BUN 59 H Creatinine 2.79 H Glucose 46 L* Total Bilirubin 0.4 AST 18 ALT 17 Alkaline Phosphatase 69 Conclusions/Impression: Stage II JUAREZ likely due to hypovolemia CKD III -No NSAIDs Hyperkalemia -Lokelma prn Hypophosphatemia -Encourage nutrition -Replete prn HTN with CKD/ CHF -Continue Metoprolol Diastolic CHF, chronic -Daily weight -Bumex prn DM II with CKD & Polyneuropathy -RISS -Continue Gabapentin Hypoalbuminemia -Continue protein supplementation as tolerated Anemia in chronic illness Iron Deficiency -Monitor H&H -PRBC prn Hospitalist notes reviewed
--- NOTE | 2023-06-29 07:47 | P.DS ---
Admission Date: 06/15/23 Discharge Date: 06/28/23 Disposition: TRANSFER TO SNF - MEDICAL Discharge Condition: FAIR Reason for Admission: weakness and need for placement Brief History of Present Illness: Diagnosis Multiple decubitus ulcerations Weakness /debilitation Diabetes - IDDM UTI Hypoalbuminemia Acute on Chronic kidney disease History of Anemia Atrial fibrillation Congestive Heart Failure History of DVT Hx HTN HLD Gout Lupus erythematous HPI 06/13/23 Carolyn Piper is a 72-year-old female with past medical history Anemia; Atrial Fib; blood clot; CHF; Chronic pain; CVA; Diabetes - IDDM; GI disease; Gout; Hyperlipidemia; Hypertension; liver failure; Lupus erythematosus; Renal Disease; sciatica, and left BKA who presents to the ED with complaints of inability to care for herself. She presents with chronic sacral wounds and will need appropriate wound care going forward. She reports feeling like her wounds are getting worse with her new wheelchair and is unable to position herself comfort ably. She reports having chills d/t her chronic anemia. Initial vitals BP 115 / 61; Pulse 100; Resp 18; Temp 98; Pulse Ox 100% Significant laboratory evaluation Serum glucose 46, H/H 9.9/30.4, Neutrophils 87.5, BUN/Creatinine 59/2.79, GFR 17. Carolyn will be admitted to hospitalist service for further treatment and placement. Hospital Course: Carolyn Piper is a pleasant 72 year old female with a past medical history significant for Anemia; Atrial Fib; blood clot; CHF; Chronic pain; CVA; Diabetes - IDDM; GI disease; Gout; Hyperlipidemia; Hypertension; liver failure; Lupus erythematosus; Renal Disease; sciatica, and left BKAwho was admitted to the [facility] [place], [place] on 06/13/23 for weakness 2/2 debilitation. Carolyn Piper presented to the ED with chief complaint of inabiltiy to care for herself now with weakness from debilitation. SHe presented with chronic sacral wound. Dr. Brown was consulted for further evaluation of her sacral wounds. Incision and debridement was performed on 06/15 with a wound vac in place. Nephrology was consulted for anemia and chronic kidney disease. She has tolerated all treatment and procedures well. She requested placement at [facility] and was able to discharge in stable condition 06/28/23. She has tolerated PO diet, wound vac changes, and IV antibiotics. She is hemodynamically stable and ready for discharge. On 06/28/23, Carolyn was seen on morning rounds and deemed medically stable for discharge. Carolyn was discharged with instructions to schedule follow-up appointments with PCP, Dr. Edwards, Dr Brown. No new prescriptions this admission. The patient was given the opportunity to ask questions and reported no further questions. Furthermore, all questions were answered to the best of my ability. A copy of this discharge summary will be sent to the above providers to facilitate continuity of care. Today, I personally spent 50 minutes with Carolyn, of which greater than 50% of the time was spent in patient education, counseling, and coordination of care as described above. Physical exam GEN: AAOx3, NAD, pleasant HEENT: Normal conjunctiva, sclera anicteric CV: RRR, no edema, S1 S2 presentm no murmur noted Pulm: Nonlabored respirations on room air, Bilaterally clear breath sounds ABD: Soft and benign, nontender, nondistended MSK: No joint tenderness Integumentary: Pressure sores to right thigh, right buttocks, right ear-wound, VAC in place to right buttocks, left BKA noted Neuro: Normal speech, normal affect Vital Signs/Physical Exam: Temp Pulse Resp BP Pulse Ox 99.3 F 100 H 14 111/52 L 95 06/28/23 12:00 06/28/23 12:00 06/28/23 13:10 06/28/23 12:00 06/28/23 13:10 Laboratory Data at Discharge: WBC 6.50 thou/uL (4.3-10.9) 06/28/23 04:10 Hgb 7.6 g/dL (12.0-15.0) L 06/28/23 04:10 Hct 23.5 % (36.0-45.0) L 06/28/23 04:10 Plt Count 162 thou/uL (152-406) 06/28/23 04:10 Sodium 139 mEq/L (136-145) 06/28/23 04:10 Potassium 4.3 mEq/L (3.5-5.1) D 06/28/23 04:10 BUN 56 mg/dL (7-18) H 06/28/23 04:10 Creatinine 1.33 mg/dL (0.55-1.02) H 06/28/23 04:10 Glucose 96 mg/dL (74-106) 06/28/23 04:10 Phosphorus 1.9 mg/dL (2.5-4.9) L 06/28/23 04:10 Magnesium 2.0 mg/dL (1.6-2.4) 06/23/23 03:12 Total Bilirubin 0.3 mg/dL (0.2-1.0) 06/25/23 05:58 AST 19 U/L (15-37) 06/25/23 05:58 ALT 12 U/L (13-56) L 06/25/23 05:58 Alkaline Phosphatase 71 U/L (45-117) 06/25/23 05:58 Home Medications: Simvastatin [Zocor*] 10 mg PO BEDTIME 07/07/15 Vitamin D2 50,000 units PO DAILY 07/07/15 Metoprolol Tartrate 50 mg PO DAILY 04/24/16 Pantoprazole Sodium [Protonix] 40 mg PO DAILY 04/26/16 Apixaban [Eliquis] 5 mg PO BID 02/07/23 Bumetanide 2 mg PO 02/07/23 Bumetanide 2 mg PO DAILY 02/07/23 Gabapentin 300 mg PO TID 02/07/23 Hydralazine [Apresoline*] 25 mg PO DAILY 02/07/23 Hydroxychloroquine [Plaquenil*] 200 mg PO DAILY 02/07/23 Montelukast Sodium [Singulair] 10 mg PO BEDTIME 02/07/23 Spironolactone 50 mg PO BID 02/07/23 allopurinoL [Allopurinol] 1 tab PO DAILY 02/07/23 Collagenase [Santyl Ointment*] 30 appl TOP DAILY 30 Days #30 gm 05/11/23 Donepezil [Aricept*] 10 mg PO BEDTIME tab 06/28/23 Hydrocodone 10/APAP 325 [[place] [address]*] 1 tab PO Q6H PRN tab 06/28/23 Insulin -Regular Human [Novolin -R*] See Protocol SQ ACHS ml 06/28/23 Humble [Humble*] 1 pkt PO BID 06/28/23 Medihoney [Medihoney Woundcare Gel*] 1 appl TOP DAILY tube 06/28/23 Zinc Oxide [Zinc Oxide 20%*] 1 appl TOP BID tube 06/28/23 levoFLOXacin [Levaquin*] 750 mg PO Q48H tab 06/28/23 Physician Discharge Instructions: 1. Please call and schedule a follow-up appointment with your PCP in 3-5 days - Please follow-up with your PCP for medication refills/adjustments 2. Please call and schedule a follow-up appointment with Dr. Edwards in one week for continued kidney function 3. Please call and schedule a follow-up with Dr. Jimenez for wound care 4. continue working with physical therapy 5. diabetic/Renal diet 6. return to the ED if symptoms worsen No new prescriptions this admission Wound vac: started June 15 Sacral and buttock: stage IV pressure Ulcer Pressure at 100 mmhg Renasys foam black medium change Q 72 hours setting intensity: moderate Cycle setting : continuously Low air mattress needed Followup: Jeramy Edwards [ACTIVE - CAN ADMIT] - 1 Week Owen Brown MD [ACTIVE - CAN ADMIT] - OOT,OOT [Primary Care Provider] - Time spent managing pt's care (in minutes): 50
== END 2023-06-28 13:45 | DRG 939 ==
LOC: ER 12:17 → ERHOLD 15:52 → 2ND 20:10 → OBSVTOIN 06-15 10:20 → UNDODISIN 06-15 10:40
PROVIDERS: ADMIT Internal Medicine; ATTEND Internal Medicine
PROC: 30233N1 Transfusion of Nonautologous Red Blood Cells into Peripheral Vein, Percutaneous Approach (ICD-10-PCS; 2023-06-14)
PROC: 0JB70ZZ Excision of Back Subcutaneous Tissue and Fascia, Open Approach (ICD-10-PCS; 2023-06-15)
PROC: 0T9B70Z Drainage of Bladder with Drainage Device, Via Natural or Artificial Opening (ICD-10-PCS; 2023-06-15)
PROC: 0JB90ZZ Excision of Buttock Subcutaneous Tissue and Fascia, Open Approach (ICD-10-PCS; principal; 2023-06-15 09:00)
DX: R53.81 Other malaise (principal); L89.154 Pressure ulcer of sacral region, stage 4; L89.314 Pressure ulcer of right buttock, stage 4; L89.813 Pressure ulcer of head, stage 3; L89.893 Pressure ulcer of other site, stage 3; N17.9 Acute kidney failure, unspecified; I50.32 Chronic diastolic (congestive) heart failure; I13.0 Hypertensive heart and chronic kidney disease with heart failure and stage 1 through stage 4 chronic kidney disease, or unspecified chronic kidney disease; R64 Cachexia; E46 Unspecified protein-calorie malnutrition; N39.0 Urinary tract infection, site not specified; E87.3 Alkalosis; N18.9 Chronic kidney disease, unspecified; E11.22 Type 2 diabetes mellitus with diabetic chronic kidney disease; E11.42 Type 2 diabetes mellitus with diabetic polyneuropathy; E11.649 Type 2 diabetes mellitus with hypoglycemia without coma; E11.65 Type 2 diabetes mellitus with hyperglycemia; D63.1 Anemia in chronic kidney disease; D50.9 Iron deficiency anemia, unspecified; I48.91 Unspecified atrial fibrillation; E78.5 Hyperlipidemia, unspecified; M10.9 Gout, unspecified; E88.09 Other disorders of plasma-protein metabolism, not elsewhere classified; M32.9 Systemic lupus erythematosus, unspecified; E83.39 Other disorders of phosphorus metabolism; E87.5 Hyperkalemia; K21.9 Gastro-esophageal reflux disease without esophagitis; B96.20 Unspecified Escherichia coli [E. coli] as the cause of diseases classified elsewhere; Z60.2 Problems related to living alone; Z95.0 Presence of cardiac pacemaker; Z88.8 Allergy status to other drugs, medicaments and biological substances; Z86.73 Personal history of transient ischemic attack (TIA), and cerebral infarction without residual deficits; Z79.01 Long term (current) use of anticoagulants; Z90.710 Acquired absence of both cervix and uterus; Z86.718 Personal history of other venous thrombosis and embolism; Z89.512 Acquired absence of left leg below knee; Z79.899 Other long term (current) drug therapy
CPT/HCPCS: 36415; 36430; 80048; 80053; 80069; 81001; 82728; 82947; 83540; 83735; 84100; 84466; 85014; 85018; 85025; 85027; 86850; 86900; 86901; 86920; 87077; 87086; 87088; 87186; 87324; 93005; 96374; 97110; 97161; 97530; 99285; G0378; J1100; J1200; J1644; J2001; J2250; J2405; J2704; J2916; J3010; J3475; J7030; J7050; P9016

== ENCOUNTER 2023-07-01 18:45 | Inpatient (IN) | payer OTHER ==
[2023-07-01] MEDS ORDERED: NA CHLORIDE 0.9% 1,000 ML ONE (20:00)
[2023-07-01] MEDS ORDERED: MORPHINE 4 MG/ML SYR ONE (20:00)
[2023-07-01 20:16] LABS: Absolute Eosinophils 0.1 K/uL (0-0.5); Absolute Lymphocytes (CBC) 1.2 K/uL (0.7-4.9); Absolute Monocytes 0.6 K/uL (0.1-1.3); Absolute Neutrophil 6.1 K/uL (1.8-8.0); Basophils % 0.6 % (0-1.3); Hematocrit 26.9 % (36.0-45.0); Hemoglobin 8.8 g/dL (12.0-15.0); Lymphocytes % 14.5 % (15.3-44.8); MCH 28.7 pg (27.0-35.0); MCHC 32.6 g/dL (32.0-36.0); MCV 88.2 fL (80-100); MPV 8.8 fL (7.6-11.3); Monocytes % 8.1 % (3.3-12.3); Neutrophils % 75.8 % (41.7-73.7); Platelets 199 thou/uL (152-406); RBC Red Blood Cell Count 3.05 M/uL (3.86-4.86); Red Cell Distribution Width 18.8 % (12.1-15.2)
--- NOTE | 2023-07-01 20:21 | RAD REPORT ---
EXAM DESCRIPTION: Rosalee Single View07/01/2023 7:50 pm CLINICAL HISTORY: Shortness of breath COMPARISON: May 2023 FINDINGS: The lungs appear clear of acute infiltrate. The heart is moderately enlarged. Pacemaker l adolph in place. Old rib fractures IMPRESSION: No acute abnormalities displayed
[2023-07-01 20:22] LABS: Anion Gap 7.3 mEq/L (5.0-15.0); Magnesium 1.8 mg/dL (1.6-2.4); Potassium 3.3 mEq/L (3.5-5.1)
[2023-07-01 20:34] LABS: Troponin High Sensitivity 90.1 pg/mL (<58.9)
[2023-07-01] MEDS ORDERED: METOPROLOL TARTRATE 5 MG/5 ML INJ IV ONE (21:03)
--- NOTE | 2023-07-01 21:28 | EDPHYS ---
Physician Documentation [facility] Name: Carolyn Piper Age: 72 yrs Sex: Female : 1950 Arrival Date: 07/01/2023 Time: 18:45 Bed 17 Private MD: ED Physician Shaan Snyder HPI: 06/30 19:56 This 72 yrs old Black Female presents to ER via EMS with complaints of Pain All Over. ms3 19:56 72-year-old female with past medical history of atrial fibrillation, diabetes, anemia, ms3 hypertension, liver failure, lupus, hypertension presents to the emergency department for shortness of breath and chest pain that began this morning. Patient states she was discharged from the hospital to [place] on Sunday. Patient denies nausea or vomiting. Patient notes she has sacral decubitus ulcers or a wound VAC is supposed to be and she is unsure if nursing facility understands how to operate a wound VAC as it is not in place. Historical: - Allergies: 18:53 acyclovir; hb 18:53 fameiclonir; hb 18:53 Propafenone; hb 18:53 Valacyclovir HCl; hb 18:53 Valtrex; hb - PMHx: 18:53 Atrial Fib; Diabetes - IDDM; Anemia; Hypertension; liver failure; Lupus erythematosus; hb Hyperlipidemia; GI disease; Gout; Chronic pain; CVA; blood clot; CHF; Renal Disease; sciatica; - PSHx: 18:53 Left BKA; hb - Immunization history:: Adult Immunizations up to date. - Social history:: Smoking status: Patient denies any tobacco usage or history of. ROS: 19:56 Constitutional: Negative for fever, and chills. Neck: Negative for injury, pain, and ms3 swelling, Abdomen/GI: Negative for abdominal pain, nausea, vomiting, diarrhea, and constipation, 19:56 Cardiovascular: Positive for chest pain, 19:56 Respiratory: Positive for shortness of breath, 19:56 Skin: Positive for ulceration, Exam: 19:56 Constitutional: This is a well developed, well nourished patient who is awake, alert, ms3 and in no acute distress. Head/Face: Normocephalic, atraumatic. Neck: Trachea midline, no cervical lymphadenopathy. Supple, full range of motion without nuchal rigidity, or vertebral point tenderness. No Meningismus. Chest/axilla: Normal chest wall appearance and motion. Nontender with no deformity. Respiratory: Lungs have equal breath sounds bilaterally, clear to auscultation and percussion. No rales, rhonchi or wheezes noted. No increased work of breathing, no retractions or nasal flaring. 19:56 Cardiovascular: Rate: tachycardic, Rhythm: irregularly irregular, Pulses: no pulse deficits are appreciated, Heart sounds: normal, no S3 or S4, 19:56 Skin: Sacral decubitus ulcers present. ms3 19:58 ECG was reviewed by the Attending Physician. ms3 Vital Signs: 18:51 BP 154 / 81; Pulse 120; Resp 20; Temp 99.2(O); Pulse Ox 97% on R/A; Weight 58.06 kg; hb Height 5 ft. 10 in. ; Pain 10/10; 20:17 BP 137 / 93; Pulse 111; Resp 18; Pulse Ox 100% ; cp4 20:57 BP 167 / 93; Pulse 124; Resp 18; Pulse Ox 100% ; cp4 21:12 BP 131 / 72; Pulse 98; Resp 18; Pulse Ox 100% ; cp4 18:51 Body Mass Index 18.37 (58.06 kg, 177.8 cm) hb 18:51 Pain Scale: Adult hb MDM: 19:10 Patient medically screened. ms3 19:56 Differential diagnosis: abnormal EKG, acute myocardial infarction, coronary artery ms3 disease. 21:33 The patient was given aspirin in the Emergency Department. Data reviewed: vital signs, ms3 nurses notes, and as a result, I will discharge patient. Management of patient was discussed with the following: Hospitalist: Dr Denis. I considered the following discharge prescriptions or medication management in the emergency department Medications were administered in the Emergency Department. See MAR. Independent interpretation of the following test(s) in the Emergency Department EKG: See my EKG interpretation above. Historians other than the Patient: EMS: [facility]. Counseling: I had a detailed discussion with the patient and/or guardian regarding the historical points, exam findings, and any diagnostic results supporting the discharge/admit diagnosis, lab results, radiology results, the need for further work-up and treatment in the hospital, to return to the emergency department if symptoms worsen or persist or if there are any questions or concerns that arise at home. ED course: Discussed labs and necessity for admission with patient. Patient understands and agrees with plan. All questions were answered. Discussed case with Dr. Denis and he accepts patient as admission. 06/30 19:12 Order name: Basic Metabolic Panel; Complete Time: 20:34 ms3 06/30 19:12 Order name: CBC with Diff; Complete Time: 20:34 ms3 06/30 19:12 Order name: Magnesium; Complete Time: 20:34 ms3 06/30 19:12 Order name: Troponin HS; Complete Time: 20:34 ms3 06/30 21:47 Order name: Basic Metabolic Panel EDMS 06/30 21:47 Order name: Basic Metabolic Panel EDMS 06/30 21:47 Order name: Basic Metabolic Panel EDMS 06/30 21:47 Order name: CBC with Automated Diff EDMS 06/30 21:47 Order name: CBC with Automated Diff EDMS 06/30 21:47 Order name: CBC with Automated Diff EDMS 06/30 21:47 Order name: Troponin High Sensitivity EDMS 06/30 21:47 Order name: Troponin High Sensitivity EDMS 06/30 21:47 Order name: Troponin High Sensitivity EDMS 06/30 21:47 Order name: Troponin High Sensitivity EDMS 06/30 19:12 Order name: XRAY Chest (1 view); Complete Time: 20:34 ms3 06/30 19:12 Order name: EKG; Complete Time: 19:12 ms3 06/30 21:47 Order name: CONS Physician Consult EDMS 06/30 19:12 Order name: Cardiac monitoring; Complete Time: 19:27 ms3 06/30 19:12 Order name: EKG - Nurse/Tech; Complete Time: 19:54 ms3 06/30 19:12 Order name: IV Saline Lock; Complete Time: 19:54 ms3 06/30 19:12 Order name: Labs collected and sent; Complete Time: 19:54 ms3 06/30 19:12 Order name: O2 Per Protocol; Complete Time: 19:54 ms3 06/30 19:12 Order name: O2 Sat Monitoring; Complete Time: 19:54 ms3 EC:58 Rate is 110 beats/min. Rhythm is irregularly irregular. Right axis deviation noted. QRS ms3 interval is normal. Clinical impression: Atrial Fibrillation. Interpreted by me. Reviewed by me. Administered Medications: 20:09 Drug: NS 0.9% IV 1000 ml IV at 1 bolus Per protocol; 1000 mL bolus Route: IV; Rate: 1 cp4 bolus; Site: right forearm; 20:10 Drug: morphine IVP or IV 4 mg IVP once over 4 mins Route: IVP; Infused Over: 4 mins; cp4 Site: left forearm; 21:06 Drug: Metoprolol IVP 5 mg IVP every 5 minutes; Hold for SBP < 100 or HR < 60. x3 Route: cp4 IVP; Site: left forearm; 21:56 Drug: Aspirin PO Chewable Tablet 324 mg PO once; 81 mg tablets x 4 Route: PO; cp4 Disposition Summary: 07/01/23 21:27 Hospitalization Ordered Notes: Hospitalization Status: Inpatient Admission ms3 Provider: Jadiel Denis ms3 Location: Telemetry/[facility] (Inpatient) ms3 Condition: Stable ms3 Problem: new ms3 Symptoms: are unchanged ms3 Bed/Room Type: Standard ms3 Room Assignment: 413(07/01/23 22:13) cg Diagnosis - Unspecified atrial fibrillation ms3 - Elevated Troponin ms3 - Essential (primary) hypertension ms3 Forms: - Medication Reconciliation Form ms3 - SBAR form ms3 - Leadership Thank You Letter ms3 Signatures: Dispatcher [employer] Jeanne Rosen RN RN Chanelle Jacobson RN RN Shaan Snyder DO DO ms3 Jo Walker cp4 Corrections: (The following items were deleted from the chart) 22:13 21:27 ms3 cg
--- NOTE | 2023-07-01 21:28 | ER ---
Nurse's Notes [facility] Name: Carolyn Piper Age: 72 yrs Sex: Female : 1950 Arrival Date: 07/01/2023 Time: 18:45 Bed 17 Private MD: Diagnosis: Unspecified atrial fibrillation;Elevated Troponin;Essential (primary) hypertension Presentation: 06/30 18:51 Chief complaint: EMS states: [facility] staff would not answer her call hb light so she called 911, c/o pain all over, worse in lower back and right side of body. Coronavirus screen: At this time, the client does not indicate any symptoms associated with coronavirus-19. Ebola Screen: No symptoms or risks identified at this time. Initial Sepsis Screen: Does the patient meet any 2 criteria? HR > 90 bpm. No. Patient's initial sepsis screen is negative. Does the patient have a suspected source of infection? No. Patient's initial sepsis screen is negative. Risk Assessment: Do you want to hurt yourself or someone else? Patient reports no desire to harm self or others. Onset of symptoms was July 01, 2023. 18:51 Method Of Arrival: EMS: [facility] hb 18:51 Acuity: KUSHAL 3 hb Triage Assessment: 18:53 General: Appears in no apparent distress. uncomfortable, ill, Behavior is calm, hb cooperative. Pain: Pain currently is 10 out of 10 on a pain scale. Neuro: Level of Consciousness is awake, alert, obeys commands, Oriented to person, place, time, situation. Cardiovascular: Patient's skin is warm and dry. Respiratory: Respiratory effort is even, unlabored, Respiratory pattern is regular, symmetrical. Historical: - Allergies: 18:53 acyclovir; hb 18:53 fameiclonir; hb 18:53 Propafenone; hb 18:53 Valacyclovir HCl; hb 18:53 Valtrex; hb - PMHx: 18:53 Atrial Fib; Diabetes - IDDM; Anemia; Hypertension; liver failure; Lupus erythematosus; hb Hyperlipidemia; GI disease; Gout; Chronic pain; CVA; blood clot; CHF; Renal Disease; sciatica; - PSHx: 18:53 Left BKA; hb - Immunization history:: Adult Immunizations up to date. - Social history:: Smoking status: Patient denies any tobacco usage or history of. Screenin:17 [facility] ED Fall Risk Assessment (Adult) History of falling in the last 3 months, cp4 including since admission No falls in past 3 months (0 pts) Confusion or Disorientation No (0 pts) Intoxicated or Sedated No (0 pts) Impaired Gait No (0 pts) Mobility Assist Device Used Yes (1 pt) Altered Elimination Yes (1 pt) Score/Fall Risk Level 3 or more points = High Risk Oriented to surroundings, Maintained a safe environment, Educated pt \T\ family on fall prevention, incl call for assistance when getting out of bed, Assessed \T\ reinforced patient's understanding of fall precautions, Provided non-skid footwear, Hourly rounding (assess needs \T\ fall precautionary measures) done. Abuse screen: Denies threats or abuse. Nutritional screening: No deficits noted. Tuberculosis screening: No symptoms or risk factors identified. Assessment: 20:17 General: Appears distressed, Behavior is agitated, anxious. Pain: Complains of pain in cp4 buttocks. Derm: Decubitus located on right bilateral sacrum hip(s) between legs on upper thigh. Vital Signs: 18:51 BP 154 / 81; Pulse 120; Resp 20; Temp 99.2(O); Pulse Ox 97% on R/A; Weight 58.06 kg; hb Height 5 ft. 10 in. ; Pain 10/10; 20:17 BP 137 / 93; Pulse 111; Resp 18; Pulse Ox 100% ; cp4 20:57 BP 167 / 93; Pulse 124; Resp 18; Pulse Ox 100% ; cp4 21:12 BP 131 / 72; Pulse 98; Resp 18; Pulse Ox 100% ; cp4 18:51 Body Mass Index 18.37 (58.06 kg, 177.8 cm) hb 18:51 Pain Scale: Adult hb ED Course: 18:50 Patient arrived in ED. hb 18:52 Triage completed. hb 18:53 Arm band placed on. hb 18:59 Arash Rodríguez, RN is Primary Nurse. as6 19:01 Shaan Snyder DO is Attending Physician. ms3 19:52 XRAY Chest (1 view) In Process Unspecified. EDMS 20:09 EKG done, by marine fisheries technician. reviewed by Shaan Snyder DO. oe 20:17 Placed in gown. Bed in low position. Call light in reach. Side rails up X2. cp4 20:17 No provider procedures requiring assistance completed. Inserted saline lock: 22 gauge cp4 in left forearm, using aseptic technique. Blood collected. 20:18 Warm blanket given. oe 20:35 Notified ED physician of a critical lab result(s). troponin 90.1. tm6 21:27 Jadiel Denis MD is Hospitalizing Provider. ms3 23:11 Inserted saline lock: 22 gauge in right forearm, using aseptic technique. oe 23:15 Provided Education on: need for admit. tm6 23:15 Patient admitted, IV remains in place. tm6 Administered Medications: 20:09 Drug: NS 0.9% IV 1000 ml IV at 1 bolus Per protocol; 1000 mL bolus Route: IV; Rate: 1 cp4 bolus; Site: right forearm; 20:10 Drug: morphine IVP or IV 4 mg IVP once over 4 mins Route: IVP; Infused Over: 4 mins; cp4 Site: left forearm; 21:06 Drug: Metoprolol IVP 5 mg IVP every 5 minutes; Hold for SBP < 100 or HR < 60. x3 Route: cp4 IVP; Site: left forearm; 21:56 Drug: Aspirin PO Chewable Tablet 324 mg PO once; 81 mg tablets x 4 Route: PO; cp4 Medication: 20:17 VIS not applicable for this client. cp4 Outcome: 21:27 Decision to Hospitalize by Provider. ms3 22:49 Admitted to Med/surg accompanied by tech, via stretcher, room 413, with chart, Report tm6 called to Joseph HAMLIN 22:49 Condition: stable 22:49 Instructed on the need for admit, 23:15 Patient left the ED. tm6 Signatures: Dispatcher [employer] EDMS Chanelle Jacobson RN RN Lenoel Kim oe Shaan Snyder DO DO ms3 Arash Rodríguez RN RN as6 Jo Walker cp4 Beatrice Link RN RN tm6 Corrections: (The following items were deleted from the chart) 20:09 20:08 EKG done, by marine fisheries technician. oe oe
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
[2023-07-01] MEDS ORDERED: ONDANSETRON 4 MG/2 ML VIAL IV PRN (21:35)
[2023-07-01] MEDS ORDERED: MAGNESIUM HYDROXIDE 8% 30 ML PO PRN (21:35)
[2023-07-01] MEDS ORDERED: ASPIRIN 81 MG CHEWABLE TABLET ONE (21:49)
[2023-07-02] MEDS: MORPHINE 2 MG/ML SYR IV ONE (00:24)
[2023-07-02 01:18] VITALS: BMI 18.3
[2023-07-02] MEDS: HYDROCODONE/APAP 7.5/325 MG TAB PO PRN (04:46)
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
[2023-07-02 07:14] LABS: Absolute Eosinophils 0.1 K/uL (0-0.5); Absolute Lymphocytes (CBC) 0.9 K/uL (0.7-4.9); Absolute Monocytes 0.8 K/uL (0.1-1.3); Absolute Neutrophil 5.2 K/uL (1.8-8.0); Basophils % 0.6 % (0-1.3); Hematocrit 24.3 % (36.0-45.0); Hemoglobin 7.8 g/dL (12.0-15.0); Lymphocytes % 12.5 % (15.3-44.8); MCH 28.5 pg (27.0-35.0); MCHC 32.2 g/dL (32.0-36.0); MCV 88.5 fL (80-100); MPV 8.3 fL (7.6-11.3); Monocytes % 11.6 % (3.3-12.3); Neutrophils % 74.3 % (41.7-73.7); Platelets 160 thou/uL (152-406); RBC Red Blood Cell Count 2.74 M/uL (3.86-4.86); Red Cell Distribution Width 18.9 % (12.1-15.2)
[2023-07-02 07:24] LABS: Anion Gap 6.5 mEq/L (5.0-15.0); Potassium 3.5 mEq/L (3.5-5.1)
[2023-07-02] MEDS: INFLUENZA VACCINE (for 6+ mo) 0.5 ML DOSE IMVAC ONE (08:00)
[2023-07-02] MEDS: METOPROLOL TAR 50 MG TAB PO SCH (08:26)
[2023-07-02] MEDS: HYDRALAZINE HCL 25 MG TABLET PO SCH (08:26)
[2023-07-02] MEDS: DOCUSATE NA 100 MG CAP PO SCH (08:27)
[2023-07-02] MEDS: allopurinoL 100 MG TAB PO SCH (08:27)
[2023-07-02] MEDS: APIXABAN 5 MG TABLET PO SCH (08:27)
[2023-07-02] MEDS: GABAPENTIN 300 MG CAP PO SCH (08:27)
[2023-07-02] MEDS: HYDROXYCHLOROQUINE 200MG TAB PO SCH (08:28)
[2023-07-02] MEDS: BUMETANIDE 1 MG TABLET PO SCH (08:28)
[2023-07-02] MEDS: PANTOPRAZOLE 40MG TABLET PO SCH (08:28)
[2023-07-02] MEDS: ENOXAPARIN 40 MG/0.4 ML SQ SCH (08:29)
[2023-07-02] MEDS: COLLAGENASE 30 GM OINTMENT TOP SCH (09:00)
[2023-07-02] MEDS: ENSURE ENLIVE 237 ML CAN PO SCH (11:34)
[2023-07-02] MEDS: HYDROCODONE/APAP 10/325 TAB PO PRN (11:34)
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
[2023-07-02] MEDS: JUVEN PACKET PO SCH (21:00)
[2023-07-02] MEDS: DONEPEZIL HCL 5 MG TAB PO SCH (21:04)
[2023-07-02] MEDS: ATORVASTATIN 10 MG TAB PO SCH (21:04)
[2023-07-02] MEDS: HYDROCODONE/APAP 5/325 MG TAB PO ONE (21:05)
[2023-07-03 03:53] LABS: Absolute Eosinophils 0.1 K/uL (0-0.5); Absolute Lymphocytes (CBC) 1.1 K/uL (0.7-4.9); Absolute Monocytes 0.7 K/uL (0.1-1.3); Absolute Neutrophil 5.1 K/uL (1.8-8.0); Basophils % 0.5 % (0-1.3); Eosinophils % 1.8 % (0-4.4); Hematocrit 23.2 % (36.0-45.0); Hemoglobin 7.5 g/dL (12.0-15.0); Lymphocytes % 15.3 % (15.3-44.8); MCH 28.9 pg (27.0-35.0); MCHC 32.4 g/dL (32.0-36.0); MCV 89.3 fL (80-100); MPV 9.1 fL (7.6-11.3); Monocytes % 9.9 % (3.3-12.3); Neutrophils % 72.5 % (41.7-73.7); Platelets 160 thou/uL (152-406); Red Cell Distribution Width 18.8 % (12.1-15.2)
[2023-07-03 04:27] LABS: Anion Gap 6.7 mEq/L (5.0-15.0); Potassium 3.7 mEq/L (3.5-5.1)
--- NOTE | 2023-07-03 12:09 | P.PN ---
Date of Service: 07/03/23 Subjective Awake and oriented Concerned with care received at [facility] facility Which she has to attend placement at another [facility] facility ROS 10 point ROS as noted above, otherwise negative Physical Exam General: AAOx3, NAD HEENT: Atraumatic, Normocephalic Neck: Supple Respiratory: Symmetrical chest wall movement, on room air Cardiovascular: Regular rate/rhythm, Normal S1 S2, no murmur noted Gastrointestinal: Soft and benign on palpation, ND/NT Musculoskeletal: Other (sacral decub noted.) Neurological: Normal speech, Normal strength at 5/5 x4 extr Vitals Reviewed Problem list NSTEMI Multiple decubitus ulcerations Weakness/debilitation Chronic Pain DiabetesIDDM Acute on chronic kidney disease History of anemia Atrial fibrillation CHF History of DVT History of HTN/HLD Gout Lupus erythematous laboratory Plan NSTEMI CHF Atrial Fibrillation Deemed secondary to demand ischemia from ulcer/wound infection. consult cardiology-appreciate further input ECHO ordered Eliquis Troponins trended flat Continue home medications continuous telemetry Multiple Decubitus ulcers sacral decubitus ulcers with wound vac therapy consult wound care PT consulted for bed mobility Diabetes type 2- IDDM We will monitor blood sugar ACHS and continue sliding scale insulin for glucose control. Weakness/debilitation Chronic pain Continue supportive care pain management Hypertension/ Hyperlipidemia History DVT History Gout History Lupus erythematous Continue home medications CKD stage III History of anemia Continue routine care of CKD. consult nephrology Monitor H&H daily Dvt Ppx eliquis CODE STATUS: Full code Disposition-fpc facility discharge Patient requesting different fpc facility giving her treatment at previous
--- NOTE | 2023-07-04 09:53 | ECHO ---
HEIGHT: 5 ft 10 in WEIGHT: 128 lb 0 oz DATE OF STUDY: 07/03/[address]: Asiya Jessica NP 2-DIMENSIONAL: YES M.MODE: YES DOPPLER: YES COLOR FLOW: YES TDS: NO PORTABLE: YES DEFINITY: NO BUBBLE STUDY: NO DIAGNOSIS: ELEVATED TROPONIN CARDIAC HISTORY: CATHERIZATION: SURGERY: PROSTHETIC VALVE: PACEMAKER: MEASUREMENTS (cm) DIASTOLIC (NORMALS) SYSTOLIC (NORMALS) IVSd 1.3 (0.6-1.2) LA Diam 4.2 (1.9-4.0) LVEF 65% LVIDd 4.3 (3.5-5.7) LVIDs 2.8 (2.0-3.5) %FS 35% LVPWd 1.4 (0.6-1.2) Ao Diam 2.5 (2.0-3.7) 2 DIMENSIONAL ASSESSMENT: RIGHT ATRIUM: NORMAL LEFT ATRIUM: ENLARGED RIGHT VENTRICLE: NORMAL LEFT VENTRICLE: LEFT VENTRICULAR HYPERTROPHY TRICUSPID VALVE: MILD TRICUSPID REGURGITATION MITRAL VALVE: MILD MITRAL REGURGITATION PULMONIC VALVE: MILD PULMONARY INSUFFICIENCY AORTIC VALVE: CALCIFIED AORTIC VALVE WITH MILD AORTIC INSUFFICIENCY PERICARDIAL EFFUSION: NONE AORTIC ROOT: NORMAL LEFT VENTRICULAR WALL MOTION: NORMAL DOPPLER/COLOR FLOW: SEE BELOW. COMMENTS: 1. NORMAL LEFT VENTRICULAR EJECTION FRACTION 60-65% WITH NORMAL WALL MOTION. 2. MILD CONCENTRIC LEFT VENTRIUCLAR HYPERTROPHY. 3. DIASTOLIC DYSFUNCTION. 4. LEFT ATRIAL ENLARGEMENT. 5. MILD MITRAL, TRICUSPID, AORTIC AND PULMONARY REGURGITATION. 6. PULMONARY HYPERTENSION WITH RIGHT VENTRICULAR SYSTOLIC PRESSURE >60 mmHg. TECHNOLOGIST: JASIEL LEOS [facility]
--- NOTE | 2023-07-04 11:37 | P.PN ---
Date of Service: 07/04/23 Subjective Awake and oriented Concerned with pain with movement/dressing changes Yesterday had reported suicidal ideations Today adamantly denies suicidal ideations ROS 10 point ROS as noted above, otherwise negative Physical Exam General: AAOx3, NAD HEENT: Atraumatic, Normocephalic Neck: Supple Respiratory: Symmetrical chest wall movement, on room air Cardiovascular: Regular rate/rhythm, Normal S1 S2, no murmur noted Gastrointestinal: Soft and benign on palpation, ND/NT Musculoskeletal: Other (sacral decub noted.) Neurological: Normal speech, Normal strength at 5/5 x4 extr Vitals Reviewed Problem list NSTEMI Multiple decubitus ulcerations Weakness/debilitation Depression/suicidal ideation Chronic Pain DiabetesIDDM Acute on chronic kidney disease History of anemia Atrial fibrillation CHF History of DVT History of HTN/HLD Gout Lupus erythematous laboratory Plan NSTEMI CHF Atrial Fibrillation Deemed secondary to demand ischemia from ulcer/wound infection. Continue Eliquis Troponins trended flat Continue home medications continuous telemetry Echocardiogram showed Normal LVEF 60 to 65% with normal wall motion Mild concentric left ventricular hypertrophy Diastolic dysfunction Left atrial enlargement Mild mitral, tricuspid, aortic and pulmonary regurgitation Pulmonary hypertension with right ventricular systolic pressure greater than 60 mmHg Multiple Decubitus ulcers sacral decubitus ulcers with wound vac therapy consult wound care PT consulted for bed mobility Patient hopes to return to [facility] for further shelter Diabetes type 2- IDDM We will monitor blood sugar ACHS and continue sliding scale insulin for glucose control. Depression/suicidal ideation Yesterday staff was notified that patient was on self-harm watch at shelter facility I asked the patient if she had been having any thoughts of hurting herself and she stated to me that she was Precautions in place including one-to-one sitter initiated yesterday Psychiatry was consulted who evaluated the patient and did not feel that she was suicidal but rather depressed At this time patient adamant denies any suicidal ideations reports that she was having a bad day yesterday Will discontinue one-to-one sitter, consider initiation of SSRI Weakness/debilitation Chronic pain Continue supportive care pain management Hypertension/ Hyperlipidemia History DVT History Gout History Lupus erythematous Continue home medications CKD stage III History of anemia Continue routine care of CKD. consult nephrology Monitor H&H daily Dvt Ppx eliquis CODE STATUS: Full code Disposition-shelter facility discharge Patient requesting different shelter facility giving her treatment at previous
[2023-07-04] MEDS: MORPHINE 2 MG/ML SYR IV PRN (12:50)
[2023-07-05 06:34] LABS: Hematocrit 21.7 % (36.0-45.0); Hemoglobin 7.1 g/dL (12.0-15.0); MCHC 32.8 g/dL (32.0-36.0); MCV 88.4 fL (80-100); MPV 8.7 fL (7.6-11.3); Platelets 161 thou/uL (152-406); RBC Red Blood Cell Count 2.46 M/uL (3.86-4.86); Red Cell Distribution Width 18.7 % (12.1-15.2)
[2023-07-05 12:06] LABS: Hematocrit 22.9 % (36.0-45.0); Hemoglobin 7.4 g/dL (12.0-15.0)
--- NOTE | 2023-07-05 13:24 | P.PN ---
Date of Service: 07/05/23 Subjective Awake and oriented Denies complaints today awaiting auth for snf ROS 10 point ROS as noted above, otherwise negative Physical Exam General: AAOx3, NAD HEENT: Atraumatic, Normocephalic Neck: Supple Respiratory: Symmetrical chest wall movement, on room air Cardiovascular: Regular rate/rhythm, Normal S1 S2, no murmur noted Gastrointestinal: Soft and benign on palpation, ND/NT Musculoskeletal: Other (sacral decub noted.) Neurological: Normal speech Vitals Reviewed Problem list NSTEMI Multiple decubitus ulcerations Weakness/debilitation Depression/suicidal ideation Chronic Pain DiabetesIDDM Acute on chronic kidney disease History of anemia Atrial fibrillation CHF History of DVT History of HTN/HLD Gout Lupus erythematous laboratory Plan NSTEMI CHF Atrial Fibrillation Deemed secondary to demand ischemia from ulcer/wound infection. Continue Eliquis Troponins trended flat Continue home medications continuous telemetry Echocardiogram showed Normal LVEF 60 to 65% with normal wall motion Mild concentric left ventricular hypertrophy Diastolic dysfunction Left atrial enlargement Mild mitral, tricuspid, aortic and pulmonary regurgitation Pulmonary hypertension with right ventricular systolic pressure greater than 60 mmHg Multiple Decubitus ulcers sacral decubitus ulcers with wound vac therapy consult wound care PT consulted for bed mobility Patient hopes to return to [facility] for further assisted Diabetes type 2- IDDM We will monitor blood sugar ACHS and continue sliding scale insulin for glucose control. Depression/suicidal ideation Yesterday staff was notified that patient was on self-harm watch at assisted facility I asked the patient if she had been having any thoughts of hurting herself and she stated to me that she was Precautions in place including one-to-one sitter initiated yesterday Psychiatry was consulted who evaluated the patient and did not feel that she was suicidal but rather depressed At this time patient adamant denies any suicidal ideations reports that she was having a bad day yesterday Will discontinue one-to-one sitter, consider initiation of SSRI Weakness/debilitation Chronic pain Continue supportive care pain management CKD stage III Hypertension/ Hyperlipidemia History DVT History Gout History Lupus erythematous Continue home medications Iron deficiency anemia Monitor H&H daily Continue p.o. iron Received IV iron during recent hospitalization Dvt Ppx eliquis CODE STATUS: Full code Disposition-assisted facility discharge Patient requesting different assisted facility giving her treatment at previous
[2023-07-05] MEDS: MORPHINE 2 MG/ML SYR IV ONE (14:29)
--- NOTE | 2023-07-05 14:56 | CON ---
Date of Consultation: 07/04/2023 Reason For Consult: Evaluate the patient for depression and suicidal ideation. History Of Present Illness: The patient is a 72-year-old female who was admitted to telemetry floor on July 01, 2023 status post NSTEMI due to elevated troponin after presenting to [facility] ED with complaint of buttocks pain. The patient has no past psychiatric history; however, she does have multiple medical pathologies, which include diabetes mellitus with decubitus ulcers, hyperlipid emia, lupus erythematosus, chronic kidney disease stage 3 and anemia. The patient also has hypertens ion. On evaluation today, the patient denies having any depressive symptoms and denies suicidal idea tion, stating it was when she presented to the ER, she says that currently she is not depressed and does have past history of depression which is a result of her situation at that time she was unable to care for herself and she was sad about her situation. She says that she has always been a very independent person, but, however, continue to have family m embers and also medical conditions and prognosis. She has decubitus ulcers. S he denies history of aggressive behavior. No current disability . She says her appetite i s fair. Denies past history of nausea or psychosis. No obsessive-compulsive disorder. Denies any s ymptoms associated with PTSD. Admitted to past history of alcohol abuse when she was younger. ____ no history of cognitive decline. States that she never , has 2 sons. Vital Signs: Blood pressure 113/46, temperature 98.3, pulse rate 60, respiratory rate 18, oxygen sat at room air is 99%. Mental Status Examination: The patient is a critically ill-looking female who was [place] in bed, covered with bedsheet, was not in any acute cardiorespiratory distress. Alert, oriented x3. Cooperative with interview. Psychomotor activity within normal limits. Speech is spontaneous. Normal rate and volume. memory and concentration fair. Mood: She described as worried . Affect is mood congruent. Thought process: Linear and goal-directed. Thought content: No delus ional thinking. Denies suicidal ideation. Ruminates about her health Fund of knowledge i s fair. Language skills fair. Insight, judgment, and impulse control fair. Diagnoses: 1.Major depressive disorder, unspecified. 2.Major depressive disorder due to other medical condition. 3.Anxiety disorder, unspecified. Plan/recommendations: 1.The patient does not meet criteria for acute psychiatric inpatient admission at this time as she d enies history of being a danger to herself and others. 2.Recommend starting Prozac 20 mg p.o. daily for mood and anxiety symptoms. 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 4.We will discuss recommendation with treatment team. MANDI Voice ID: [id number] Report ID: [id number]
[2023-07-06 07:56] LABS: Hematocrit 22.4 % (36.0-45.0); Hemoglobin 7.2 g/dL (12.0-15.0); MCH 28.5 pg (27.0-35.0); MCHC 32.3 g/dL (32.0-36.0); MCV 88.2 fL (80-100); MPV 8.4 fL (7.6-11.3); Platelets 171 thou/uL (152-406); RBC Red Blood Cell Count 2.54 M/uL (3.86-4.86)
[2023-07-06 08:15] LABS: Anion Gap 4.3 mEq/L (5.0-15.0); Potassium 4.3 mEq/L (3.5-5.1)
[2023-07-06] MEDS: FERROUS SULFATE 325 MG TAB PO SCH (09:37)
--- NOTE | 2023-07-06 12:42 | P.PN ---
Date of Service: 07/06/23 Subjective Awake and oriented Denies complaints today awaiting auth for snf C/O right ear pain, pain with dressing changes/wound vac care ROS 10 point ROS as noted above, otherwise negative Physical Exam General: AAOx3, NAD HEENT: Atraumatic, Normocephalic Neck: Supple Respiratory: Symmetrical chest wall movement, on room air Cardiovascular: Regular rate/rhythm, Normal S1 S2, no murmur noted Gastrointestinal: Soft and benign on palpation, ND/NT Musculoskeletal: Other (sacral decub noted.) Neurological: Normal speech Vitals Reviewed Problem list NSTEMI Multiple decubitus ulcerations Weakness/debilitation Depression/suicidal ideation Chronic Pain DiabetesIDDM Acute on chronic kidney disease History of anemia Atrial fibrillation CHF History of DVT History of HTN/HLD Gout Lupus erythematous laboratory Plan NSTEMI CHF Atrial Fibrillation Deemed secondary to demand ischemia from ulcer/wound infection. Continue Eliquis Troponins trended flat continuous telemetry Echocardiogram showed Normal LVEF 60 to 65% with normal wall motion Mild concentric left ventricular hypertrophy Diastolic dysfunction Left atrial enlargement Mild mitral, tricuspid, aortic and pulmonary regurgitation Pulmonary hypertension with right ventricular systolic pressure greater than 60 mmHg Multiple Decubitus ulcers sacral decubitus ulcers with wound vac therapy consult wound care PT consulted for bed mobility Patient hopes to return to [place] for further shelter Diabetes type 2- IDDM We will monitor blood sugar ACHS and continue sliding scale insulin for glucose control. Depression/suicidal ideation Psychiatry was consulted who evaluated the patient and did not feel that she was suicidal but rather depressed At this time patient adamant denies any suicidal ideations reports that she was having a bad day yesterday Will discontinue one-to-one sitter, consider initiation of SSRI Weakness/debilitation Chronic pain Continue supportive care pain management CKD stage III Hypertension/ Hyperlipidemia History DVT History Gout History Lupus erythematous Continue home medications Iron deficiency anemia Monitor H&H daily Continue p.o. iron Received IV iron during recent hospitalization Dvt Ppx eliquis CODE STATUS: Full code Disposition-shelter facility discharge
--- NOTE | 2023-07-06 17:43 | EKG ---
Test Date: 2023-07-01 Test Time: 18:35:08 Second Floor Operator: LACY MEASUREMENT RESULTS: Intervals: Rate: 110 FL: QRSD: 112 QT: 340 QTc: 460 [place]: P: FL: QRS: -41 T: 163 INTERPRETIVE STATEMENTS: Atrial fibrillation with premature ventricular or aberrantly conducted complexes Left axis deviation ST & T wave abnormality, consider lateral ischemia or digitalis effect Abnormal ECG Compared to ECG 06/21/2023 10:29:26 Left-axis deviation now present Left anterior fascicular block no longer present Left ventricular hypertrophy no longer present Myocardial infarct finding no longer present ST (T wave) deviation still present Possible ischemia still present Electronically Signed On 07-06-23 17:29:00 CDT by Serafin Viera
--- NOTE | 2023-07-06 18:54 | PN ---
Date of Progress Note: 07/06/2023 Subjective: Seen by bedside. No chest pain. Review of Systems: No chest pain, shortness of breath, orthopnea, cough. No nausea, vomiting, and diarrhea. No dysuria , polyuria, or urinary urgency. All other systems reviewed are negative. Physical Examination: Vital Signs: Reviewed. Head and Neck: Pupils are equal, reactive to light. Intact eye movements. No JVD. No cervical lym phadenopathy. Neck: Supple. Thyroid is not enlarged. Lungs: Clear to auscultation bilaterally. No rhonchi, wheezing, or crackles. No accessory muscle u se. Heart: Irregular. No extra sounds. Abdomen: Soft, nontender. Bowel sounds positive. No organomegaly. No masses or hernia. No rigidi ty or rebound. Extremities: No clubbing or cyanosis. Intact pulses. Neurologic: Alert, awake, oriented x3. No acute focal deficits appreciated. Investigations: BUN 62, creatinine is 1.3. Hemoglobin is 7.2, and her troponin is 70. Assessment/recommendations: 1.Atrial fibrillation, rate is controlled and on anticoagulation, but she is anemic. If there is ac tive bleeding, Eliquis needs to be stopped and then she will be a candidate for left atrial appendage closure. Recommend Gastroenterology workup for this anemia. 2.Anemia. Recommend Gastroenterology evaluation. She could benefit from appendage closure so she c an stop the Eliquis on the outpatient basis. 3.Elevated troponin. There is no chest pain. This is demand ischemia. Planned for outpatient work up. 4.Hypertension. Blood pressure is controlled. Continue current management. Cardiology will sign o ff. SR/MODL Voice ID: [id number] Report ID: [id number]
[2023-07-07 04:10] LABS: Hematocrit 21.5 % (36.0-45.0); MCH 28.7 pg (27.0-35.0); MCHC 32.6 g/dL (32.0-36.0); MCV 88.1 fL (80-100); MPV 8.8 fL (7.6-11.3); Platelets 185 thou/uL (152-406); RBC Red Blood Cell Count 2.44 M/uL (3.86-4.86)
--- NOTE | 2023-07-07 11:44 | P.PN ---
Date of Service: 07/07/23 Subjective Awake and oriented Denies complaints today awaiting auth for snf ROS 10 point ROS as noted above, otherwise negative Physical Exam General: AAOx3, NAD HEENT: Atraumatic, Normocephalic Neck: Supple Respiratory: Symmetrical chest wall movement, on room air Cardiovascular: Regular rate/rhythm, Normal S1 S2, no murmur noted Gastrointestinal: Soft and benign on palpation, ND/NT Musculoskeletal: Other (sacral decub noted.) Neurological: Normal speech Vitals Reviewed Problem list NSTEMI Multiple decubitus ulcerations Weakness/debilitation Depression/suicidal ideation Chronic Pain DiabetesIDDM Acute on chronic kidney disease History of anemia Atrial fibrillation CHF History of DVT History of HTN/HLD Gout Lupus erythematous laboratory Plan NSTEMI CHF Atrial Fibrillation Deemed secondary to demand ischemia from ulcer/wound infection. Continue Eliquis Troponins trended flat continuous telemetry Echocardiogram showed Normal LVEF 60 to 65% with normal wall motion Mild concentric left ventricular hypertrophy Diastolic dysfunction Left atrial enlargement Mild mitral, tricuspid, aortic and pulmonary regurgitation Pulmonary hypertension with right ventricular systolic pressure greater than 60 mmHg Multiple Decubitus ulcers sacral decubitus ulcers with wound vac therapy consult wound care PT consulted for bed mobility Patient hopes to return to [place] for further [facility] Patient appealed SNF denial-reports appeal successful Diabetes type 2- IDDM We will monitor blood sugar ACHS and continue sliding scale insulin for glucose control. Depression/suicidal ideation Psychiatry was consulted who evaluated the patient and did not feel that she was suicidal but rather depressed At this time patient adamant denies any suicidal ideations reports that she was having a bad day yesterday Will discontinue one-to-one sitter, consider initiation of SSRI Weakness/debilitation Chronic pain Continue supportive care pain management CKD stage III Hypertension/ Hyperlipidemia History DVT History Gout History Lupus erythematous Continue home medications Iron deficiency anemia Monitor H&H daily Continue p.o. iron Received IV iron during recent hospitalization Dvt Ppx eliquis CODE STATUS: Full code Disposition-[facility] facility discharge
[2023-07-07] MEDS: ACETAMINOPHEN 325 MG TABLET PO PRN (17:06)
[2023-07-07 17:50] LABS: Absolute Eosinophils 0.2 K/uL (0-0.5); Absolute Lymphocytes (CBC) 1.1 K/uL (0.7-4.9); Absolute Neutrophil 7.8 K/uL (1.8-8.0); Basophils % 0.5 % (0-1.3); Eosinophils % 1.8 % (0-4.4); Hematocrit 22.3 % (36.0-45.0); Hemoglobin 7.3 g/dL (12.0-15.0); Lymphocytes % 10.8 % (15.3-44.8); MCH 28.9 pg (27.0-35.0); MCHC 32.7 g/dL (32.0-36.0); MCV 88.4 fL (80-100); MPV 8.8 fL (7.6-11.3); Monocytes % 10.1 % (3.3-12.3); Neutrophils % 76.8 % (41.7-73.7); Platelets 197 thou/uL (152-406); RBC Red Blood Cell Count 2.52 M/uL (3.86-4.86); Red Cell Distribution Width 18.2 % (12.1-15.2)
--- NOTE | 2023-07-07 19:09 | RAD REPORT ---
EXAM DESCRIPTION: RAD - Chest Single View - 07/07/2023 7:03 pm CLINICAL HISTORY: fever Chest pain. COMPARISON: Chest Single View dated 07/01/2023; Chest Single View dated 02/07/2023; Chest Single View dated 01/19/2017; Chest Single View dated 04/24/2016 FINDINGS: Portable technique limits examination quality. Mild interstitial pulmonary edema. The heart is moderately enlarged. No displaced fractures.Dual lead pacer/ defibrillator. IMPRESSION: Mild CHF.
[2023-07-07 19:23] LABS: Renal Epithelial <5 /HPF (None Seen); Specific Gravity 1.014 (1.005-1.030); Sqamous Epithelial <5 /HPF (None Seen); Urine Bacteria <20 /HPF (<20); Urine Bilirubin NEGATIVE (Negative); Urine Blood Trace (Negative); Urine Clarity Extremely Turbid (Clear); Urine Color Light-Yellow (Yellow); Urine Culture Reflex Order REFLEXED; Urine Glucose NEGATIVE (Negative); Urine Ketones NEGATIVE (Negative); Urine Micro Reflex YN NO BILL MICROSCOPIC; Urine Nitrite NEGATIVE (Negative); Urine Protein NEGATIVE (Negative); Urine RBC 21-50 /HPF (None Seen); Urine Urobilinogen Normal (Normal); Urine WBC >50 /HPF (<5); Urine WBC Clump Rare /HPF (None Seen); Urine Yeast (Budding) Many /HPF (None Seen); Urine Yeast with Hyphae Few /HPF (None Seen)
[2023-07-07 19:43] LABS: INFLUENZA A NAA NEGATIVE (NEGATIVE); SARS-COV-2 RT PCR NEGATIVE (NEGATIVE)
[2023-07-07] MEDS: FLUCONAZOLE 100 MG TAB PO SCH (21:57)
[2023-07-08 08:11] LABS: Absolute Eosinophils 0.2 K/uL (0-0.5); Absolute Lymphocytes (CBC) 1.1 K/uL (0.7-4.9); Absolute Monocytes 0.9 K/uL (0.1-1.3); Absolute Neutrophil 6.3 K/uL (1.8-8.0); Basophils % 0.5 % (0-1.3); Hematocrit 23.2 % (36.0-45.0); Hemoglobin 7.5 g/dL (12.0-15.0); Lymphocytes % 12.6 % (15.3-44.8); MCH 28.5 pg (27.0-35.0); MCHC 32.2 g/dL (32.0-36.0); MCV 88.6 fL (80-100); MPV 8.1 fL (7.6-11.3); Monocytes % 10.9 % (3.3-12.3); Platelets 202 thou/uL (152-406); RBC Red Blood Cell Count 2.62 M/uL (3.86-4.86); Red Cell Distribution Width 18.2 % (12.1-15.2)
[2023-07-08] MEDS: LACTOBACILLUS/ACIDOPHILUS TAB PO SCH (09:13)
--- NOTE | 2023-07-08 11:26 | P.PN ---
Date of Service: 07/08/23 Subjective had fever yesterday afternoon tmax 101 Blood cultures and lactate obtained no specific complaints aside from hip pain from pt ROS 10 point ROS as noted above, otherwise negative Physical Exam General: AAOx3, NAD HEENT: Atraumatic, Normocephalic Neck: Supple Respiratory: Symmetrical chest wall movement, on room air Cardiovascular: Regular rate/rhythm, Normal S1 S2, no murmur noted Gastrointestinal: Soft and benign on palpation, ND/NT Musculoskeletal: Other (sacral decub noted.) Neurological: Normal speech Vitals Reviewed Problem list NSTEMI Fungal UTI Multiple decubitus ulcerations Weakness/debilitation Depression/suicidal ideation Chronic Pain DiabetesIDDM Acute on chronic kidney disease History of anemia Atrial fibrillation CHF History of DVT History of HTN/HLD Gout Lupus erythematous laboratory Plan NSTEMI CHF Atrial Fibrillation Deemed secondary to demand ischemia from ulcer/wound infection. Continue Eliquis Troponins trended flat continuous telemetry Echocardiogram showed Normal LVEF 60 to 65% with normal wall motion Mild concentric left ventricular hypertrophy Diastolic dysfunction Left atrial enlargement Mild mitral, tricuspid, aortic and pulmonary regurgitation Pulmonary hypertension with right ventricular systolic pressure greater than 60 mmHg Bumex continued at reduced dose 1mg daily given decreased PO in take in hospital Fungal UTI fever started diflucan 07/06 ID consult no further fevers thus far follow blood cultures lactace <2 Multiple Decubitus ulcers sacral decubitus ulcers with wound vac therapy consult wound care PT consulted for bed mobility Patient hopes to return to [place] for further [facility] Patient appealed SNF denial-reports appeal successful Diabetes type 2- IDDM We will monitor blood sugar ACHS and continue sliding scale insulin for glucose control. Depression/suicidal ideation Psychiatry was consulted who evaluated the patient and did not feel that she was suicidal but rather depressed At this time patient adamant denies any suicidal ideations reports that she was having a bad day yesterday Will discontinue one-to-one sitter, consider initiation of SSRI Weakness/debilitation Chronic pain Continue supportive care pain management CKD stage III Hypertension/ Hyperlipidemia History DVT History Gout History Lupus erythematous Continue home medications Iron deficiency anemia Monitor H&H daily Continue p.o. iron Received IV iron during recent hospitalization Dvt Ppx eliquis CODE STATUS: Full code Disposition-[facility] facility discharge <Esa Menezes - Last Filed: 07/08/23 11:23> Patient seen and examined on rounds this morning with NIDA Menezes. Agree with plan as noted above with the following additions/corrections: Fever yesterday afternoon to 101, with UA a possible source and ongoing sacral ulcer with some foul odor as possible source as well met sepsis criteria last night (07/06), with lactate < 2.0 started on empiric zosyn on 07/06 and diflucan (yeast in urine) this morning patient reported worsening of left hip / buttock CT pelvis obtained to re-eval wound given foul odor in room / r/o osteo CT with concern for possible osteo, can't exclude small abscess; consult general surgery to eval tomorrow change zosyn to cefepime/vanc for empiric coverage on 07/07 ID consulted <Beau Reich - Last Filed: 07/08/23 13:25>
--- NOTE | 2023-07-08 11:59 | RAD REPORT ---
EXAM DESCRIPTION: CT - Pelvis Wo Cont - 07/08/2023 10:24 am CLINICAL HISTORY: fever, eval sacral ulcer, bladder, ?UTI COMPARISON: No comparisons TECHNIQUE: Thin cut axial CT imaging of the pelvis was performed without IV contrast. Multiplanar re formats were generated and reviewed. All CT scans are performed using dose optimization technique as appropriate and may include automated exposure control or mA/KV adjustment according to patient size. FINDINGS: Large region of skin thickening along the lower back/upper gluteal region, with areas of s kin irregularity overlying the left lower gluteal fold and bilateral regions overlying the iliac bone , with areas of asymmetric subcutaneous soft tissue thickening. Mildly expansile appearance of region al soft tissue thickening underlying an area of skin ulceration overlying the left iliac bone, measur ing 7.9 cm in greatest transverse extent and 1.2 cm in greatest thickness with crescentic hyperdense components along its inferior aspect, may reflect edematous changes although possibility of phlegmono us components or small abscesses in that region cannot be entirely excluded. Overlying dressing. Small region of cortical defect and underlying osseous lucency along the posterior left iliac bone, a s best appreciated on axial CT image 67. Nonspecific patchy marrow changes elsewhere. Cortical irregu larity along the lateral aspect of the right iliac bone, may relate to the donor site for lumbar fusi on bone graft material. Degenerative changes of the sacroiliac joints and pubic symphysis. Mild fluid filling of the left sac roiliac joint space is noted, nonspecific, without discrete erosions or osseous destructive changes. Asymmetric left hip periarticular soft tissue swelling and small effusion. No free air or free fluid appreciated in the included pelvis. Colonic diverticulosis. Story catheter in place. IMPRESSION: Osseous destructive changes along the posterior aspect of the left iliac bone concerning for osteomyelitis. This underlies areas of bilateral skin ulceration. Left subcutaneous soft tissue thickening underlyin g skin ulceration opposite the left iliac bone may reflect pronounced inflammation although possibili ty of phlegmonous components or small abscesses cannot be entirely excluded. Left sacroiliac joint asymmetric effusion versus septic arthritis, without discrete osseous destructi ve changes. Other findings as above.
[2023-07-08] MEDS: BUMETANIDE 1 MG TABLET PO SCH (13:35)
[2023-07-08] MEDS: CEFEPIME 2 GM in NA CHLORIDE 0.9% 100 ML IV SCH (13:38)
[2023-07-08] MEDS: VANCOMYCIN 1.5 GM in NA CHLORIDE 0.9% 500 ML IVPB ONE (16:19)
[2023-07-08] MEDS ORDERED: PIPER TAZO 3.375 GM in NA CHLORIDE 0.9% 100 ML IV SCH (19:00)
[2023-07-08] MEDS: Mupirocin NASAL 2 APPL/1 GM TUBE NAS SCH (21:02)
[2023-07-09 06:17] LABS: Absolute Basophils 0.1 K/uL (0-0.5); Absolute Eosinophils 0.2 K/uL (0-0.5); Absolute Lymphocytes (CBC) 0.9 K/uL (0.7-4.9); Absolute Neutrophil 6.5 K/uL (1.8-8.0); Basophils % 0.7 % (0-1.3); Eosinophils % 2.6 % (0-4.4); Hematocrit 23.4 % (36.0-45.0); Hemoglobin 7.6 g/dL (12.0-15.0); Lymphocytes % 10.8 % (15.3-44.8); MCH 28.9 pg (27.0-35.0); MCHC 32.6 g/dL (32.0-36.0); MCV 88.4 fL (80-100); MPV 8.7 fL (7.6-11.3); Monocytes % 11.4 % (3.3-12.3); Neutrophils % 74.5 % (41.7-73.7); Platelets 226 thou/uL (152-406); RBC Red Blood Cell Count 2.65 M/uL (3.86-4.86); Red Cell Distribution Width 18.2 % (12.1-15.2)
[2023-07-09 06:30] LABS: Anion Gap 6.9 mEq/L (5.0-15.0); Potassium 4.9 mEq/L (3.5-5.1)
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
--- NOTE | 2023-07-09 12:11 | P.PN ---
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 Multiple decubitus ulcerations NSTEMI Fungal UTI Weakness/debilitation Depression/suicidal ideation Chronic Pain DiabetesIDDM Acute on chronic kidney disease History of anemia Atrial fibrillation CHF History of DVT History of HTN/HLD Gout Lupus erythematous laboratory Plan 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 Left sacroiliac joint asymmetric effusion versus septic arthritis, without discrete osseous destructive changes. Discussed with Dr. Robins, wound vac removed, wet to dry for now-will evaluate for need of further surgical intervention Started on vancomycin/cefepime 07/07-likely to need at least 6 weeks abx PICC ordered ID consulted/following NSTEMI CHF Atrial Fibrillation Deemed secondary to demand ischemia from ulcer/wound infection. Continue Eliquis Troponins trended flat continuous telemetry Echocardiogram showed Normal LVEF 60 to 65% with normal wall motion Mild concentric left ventricular hypertrophy Diastolic dysfunction Left atrial enlargement Mild mitral, tricuspid, aortic and pulmonary regurgitation Pulmonary hypertension with right ventricular systolic pressure greater than 60 mmHg Bumex continued at reduced dose 1mg daily given decreased PO in take in hospital Fungal UTI fever started diflucan 07/06 ID consult-likely to need 2 weeks oral diflucan no further fevers thus far follow blood cultures lactace <2 Diabetes type 2- IDDM We will monitor blood sugar ACHS and continue sliding scale insulin for glucose control. Depression/suicidal ideation Psychiatry was consulted who evaluated the patient and did not feel that she was suicidal but rather depressed At this time patient adamant denies any suicidal ideations reports that she was having a bad day yesterday Will discontinue one-to-one sitter, consider initiation of SSRI Weakness/debilitation Chronic pain Continue supportive care pain management CKD stage III Hypertension/ Hyperlipidemia History DVT History Gout History Lupus erythematous Continue home medications Iron deficiency anemia Monitor H&H daily Continue p.o. iron Received IV iron during recent hospitalization Dvt Ppx eliquis CODE STATUS: Full code Disposition-intermediate facility discharge <Esa Menezes - Last Filed: 07/09/23 12:02> Patient seen and examined on rounds this morning with [employer] Riri. Agree with plan of care as noted above with the following additions / corrections: reports slight improvement of pain no new/worsening symptoms osteo noted on CT yesterday Dr. Brown consulted continue antibiotics dc wound vac, switch to wet-to-dry will need picc 6 weeks IV antibiotics ID consulted <Beau Reich - Last Filed: 07/09/23 22:40>
--- NOTE | 2023-07-09 17:57 | RAD REPORT ---
EXAM DESCRIPTION: RADChest Single View07/09/2023 5:13 pm CLINICAL HISTORY: PICC line placement COMPARISON: Chest Single View dated 07/07/2023; Chest Single View dated 07/01/2023; Chest Single View dated 02/07/2023; Chest Single View dated 01/19/2017; Abdomen Pelvis Wo Contrast dated 02/15/2023 TECHNIQUE: Portable AP view of the chest. FINDINGS: Patchy opacities, showing some progressive appearance along the left mid to lower lung. Pa tient rotation somewhat limits evaluation. Postsurgical changes in the right lower lung. Right arm PI CC in place with catheter tip projecting over the distal SVC. Left chest wall pacer in place. No pne umothorax. Right costophrenic angle blunting which may relate to pleural thickening or trace effusion , stable. The cardiomediastinal contours are unremarkable. IMPRESSION: Satisfactory positioning of right arm. Progressive patchy opacification in the left mid to lower lung may relate to progressive edema or pne umonitis.
[2023-07-10 02:34] LABS: Absolute Eosinophils 0.2 K/uL (0-0.5); Absolute Lymphocytes (CBC) 1.1 K/uL (0.7-4.9); Absolute Monocytes 1.2 K/uL (0.1-1.3); Absolute Neutrophil 7.1 K/uL (1.8-8.0); Basophils % 0.5 % (0-1.3); Eosinophils % 1.8 % (0-4.4); Hemoglobin 7.2 g/dL (12.0-15.0); Lymphocytes % 11.7 % (15.3-44.8); MCH 28.8 pg (27.0-35.0); MCHC 32.6 g/dL (32.0-36.0); MCV 88.4 fL (80-100); Monocytes % 12.1 % (3.3-12.3); Neutrophils % 73.9 % (41.7-73.7); Nucleated Red Blood Cells % 0.1 % (0-0); Platelets 242 thou/uL (152-406); RBC Red Blood Cell Count 2.49 M/uL (3.86-4.86)
[2023-07-10 02:39] LABS: Anion Gap 4.3 mEq/L (5.0-15.0); Potassium 4.3 mEq/L (3.5-5.1)
[2023-07-10] MEDS: VANCOMYCIN 1 GM in NA CHLORIDE 0.9% 250 ML IVPB SCH ×2 (03:11→22:15)
--- NOTE | 2023-07-10 09:33 | P.PN ---
Date of Service: 07/10/23 Chief Complaint: NSTEMI, decubitus ulcers. Subjective: Patient seen and examined at bedside. In no apparent distress. No acute events overnight. She denies any new or worsening complaints at this time. Patient would benefit from LTAC placement for comprehensive wound care and cont inued IV antibiotics for pressure ulcers and osteomyelitis. This was discussed with patient at bedside who is agreeable. Physical Examination Temp Pulse Resp BP Pulse Ox 97.7 F 60 14 124/63 93 07/10/23 08:00 07/10/23 08:00 07/10/23 08:00 07/10/23 08:00 07/10/23 08:00 General: Alert, In no apparent distress, Oriented x3, Cachectic HEENT: Atraumatic. Dry oral mucosa. Respiratory: Unlabored respirations on room air. 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 This underlies areas of bilateral skin ulceration. Left subcutaneous soft tissue thickening underlying skin ulceration opposite the left iliac bone may reflect pronounced inflammation although possibility of phlegmonous components or small abscesses cannot be entirely excluded. Left sacroiliac joint asymmetric effusion versus septic arthritis, without discrete osseous destructive changes." - Currently on Cefepime and Vancomycin (07/07-) - Blood cultures 07/06: no growth to date Fungal UTI - Urinalysis: + many yeast - Urine culture: pending - On fluconazole (07/06-) Recommendations - Osteomyelitis: Continue antibiotic therapy for 6 weeks duration (07/07-08/18). Given multiple comorbidities and hospitalizations, recommend continuing with Cefepime and Vancomycin. - (+) yeast in urine. continue fluconazole x 14 days (07/06- 07/19) - Pressure injuries: Pressure offloading measures - Wound care per wound care team - Supplemental nutrition - Strict blood glucose control - Monitor CBC, BMP and Vanco trough Patient would benefit from LTAC placement for comprehensive wound care and continued IV antibiotics for pressure ulcers and osteomyelitis. This was discus sed with patient at bedside who is agreeable. CM/SS following. Case discussed with Marian Bradshaw
[2023-07-10] MEDS: MORPHINE 2 MG/ML SYR IV PRN (15:52)
--- NOTE | 2023-07-10 16:39 | P.PN ---
Date of Service: 07/10/23 Subjective Awake and conversing well. 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 Multiple decubitus ulcerations NSTEMI Fungal UTI Weakness/debilitation Depression/suicidal ideation Chronic Pain DiabetesIDDM Acute on chronic kidney disease History of anemia Atrial fibrillation CHF History of DVT History of HTN/HLD Gout Lupus erythematous laboratory Plan 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 Left sacroiliac joint asymmetric effusion versus septic arthritis, without discrete osseous destructive changes. Discussed with Dr. Robins, wound vac removed, wet to dry for now-will evaluate for need of further surgical intervention Started on vancomycin/cefepime 07/07-likely to need at least 6 weeks abx PICC placed ID consulted/following NSTEMI CHF Atrial Fibrillation Deemed secondary to demand ischemia from ulcer/wound infection. Continue Eliquis Troponins trended flat continuous telemetry Echocardiogram showed Normal LVEF 60 to 65% with normal wall motion Mild concentric left ventricular hypertrophy Diastolic dysfunction Left atrial enlargement Mild mitral, tricuspid, aortic and pulmonary regurgitation Pulmonary hypertension with right ventricular systolic pressure greater than 60 mmHg Bumex continued at reduced dose 1mg daily given decreased PO in take in hospital Fungal UTI fever continue diflucan (started 07/06) ID consult-likely to need 2 weeks oral diflucan no further fevers thus far follow blood cultures lactate 1.4 Diabetes type 2- IDDM Accu-check ACHS and continue sliding scale insulin for glucose control. Depression/suicidal ideation Psychiatry was consulted who evaluated the patient and did not feel that she was suicidal but rather depressed At this time patient adamant denies any suicidal ideations reports that she was having a bad day yesterday Will discontinue one-to-one sitter, consider initiation of SSRI Weakness/debilitation Chronic pain Continue supportive care pain management CKD stage III Hypertension/ Hyperlipidemia History DVT History Gout History Lupus erythematous Continue home medications Iron deficiency anemia Monitor H&H daily Continue p.o. iron Received IV iron during recent hospitalization Dvt Ppx eliquis CODE STATUS: Full code Disposition-[facility]
--- NOTE | 2023-07-10 17:30 | P.CNS ---
Date of Consult: 07/10/23 PC: I was asked to see this 72-year-old female who is well-known to me from the wound care center as well as having been in inpatient in the recent past. She has decubitus ulcers across the sacral area. HPC: Patient apparently was transferred from the fpc, due to the fact he was having chest pain. She is now in the hospital and I been consulted for wound care regarding possible changes in the quality of the rooms in the sacral area. 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 Has developed a sacral decubiti literally across the all of the left and the right part of this and of the pelvis as well as the SI area Social Hx: Allergic to acyclovir, Profen unknown, and listed medicines in the nurses notes. Sys R: Patient states she has been feeling okay, not too happy with the food in the fpc she was sent to. O/E: Awake alert, patient has lost a considerable amount of weight over the last 3 to 4 months. HEENT: Not jaundiced Chest: Chest movement equal bilaterally Abd: Soft [place]: Has a large decubitus ulcer prominent over the left posterior portion of the pelvic bone. Also over the sacrum and the right side as well. The wound itself has clean base to it, there is some necrosis of the skin edge. There is no purulent material draining from it. Data: Inconclusive results from radiology reads on whether the patient has osteo or not Impression: I was asked to see this patient in regards to the wounds on her sacrum. Plan: I will reinitiate the wound VAC on the patient tomorrow. The patient is currently on 6-week antibiotic treatment for possible osteo.
[2023-07-10] MEDS: DIPHENHYDRAMINE 25 MG TAB/CAP PO PRN (22:15)
[2023-07-11 06:07] LABS: Absolute Eosinophils 0.3 K/uL (0-0.5); Absolute Lymphocytes (CBC) 1.1 K/uL (0.7-4.9); Absolute Monocytes 1.1 K/uL (0.1-1.3); Absolute Neutrophil 6.9 K/uL (1.8-8.0); Basophils % 0.4 % (0-1.3); Eosinophils % 2.7 % (0-4.4); Hematocrit 23.1 % (36.0-45.0); Hemoglobin 7.4 g/dL (12.0-15.0); Lymphocytes % 11.7 % (15.3-44.8); MCH 28.4 pg (27.0-35.0); MCHC 32.1 g/dL (32.0-36.0); MCV 88.5 fL (80-100); MPV 8.4 fL (7.6-11.3); Monocytes % 11.5 % (3.3-12.3); Neutrophils % 73.7 % (41.7-73.7); Nucleated Red Blood Cells % 0.1 % (0-0); RBC Red Blood Cell Count 2.61 M/uL (3.86-4.86); Red Cell Distribution Width 17.8 % (12.1-15.2)
[2023-07-11 06:12] LABS: Platelets 253 thou/uL (152-406)
--- NOTE | 2023-07-11 08:16 | P.PN ---
Date of Service: 07/11/23 Subjective Awake and in good spirits. Wound vac re-initiated. 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 Multiple decubitus ulcerations NSTEMI Fungal UTI Weakness/debilitation Depression/suicidal ideation Chronic Pain DiabetesIDDM Acute on chronic kidney disease History of anemia Atrial fibrillation CHF History of DVT History of HTN/HLD Gout Lupus erythematous laboratory Plan 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 Left sacroiliac joint asymmetric effusion versus septic arthritis, without discrete osseous destructive changes. Dr. Robins, wound vac restarted Started on vancomycin/cefepime 07/07-08/18 Pharmacy to adjust vancomycin PICC placed ID consulted/following NSTEMI CHF Atrial Fibrillation Deemed secondary to demand ischemia from ulcer/wound infection. Continue Eliquis Troponins trended flat continuous telemetry Echocardiogram showed Normal LVEF 60 to 65% with normal wall motion Mild concentric left ventricular hypertrophy Diastolic dysfunction Left atrial enlargement Mild mitral, tricuspid, aortic and pulmonary regurgitation Pulmonary hypertension with right ventricular systolic pressure greater than 60 mmHg Bumex continued at reduced dose 1mg daily given decreased PO in take in hospital Fungal UTI fever-resolved continue diflucan (started 07/06 to end 07/19) ID consult no further fevers thus far follow blood cultures lactate 1.4 Diabetes type 2- IDDM Accu-check ACHS and continue sliding scale insulin for glucose control. Depression/suicidal ideation Psychiatry was consulted who evaluated the patient and did not feel that she was suicidal but rather depressed At this time patient adamant denies any suicidal ideations reports that she was having a bad day yesterday Will discontinue one-to-one sitter, consider initiation of SSRI Weakness/debilitation Chronic pain Continue supportive care pain management CKD stage III Hypertension/ Hyperlipidemia History DVT History Gout History Lupus erythematous Continue home medications Iron deficiency anemia Monitor H&H stable Continue p.o. iron Received IV iron during recent hospitalization Dvt Ppx eliquis CODE STATUS: Full code Disposition-[place] in [facility]- Dr. Jacques involved.
--- NOTE | 2023-07-11 08:48 | P.PN ---
Date of Service: 07/11/23 Chief Complaint: NSTEMI, decubitus ulcers. Subjective: In no apparent distress. No acute events overnight. Denies any new or worsening complaints at this time. Physical Examination Temp Pulse Resp BP Pulse Ox 97.4 F 60 18 138/63 96 07/11/23 04:00 07/11/23 04:00 07/11/23 06:17 07/11/23 04:00 07/11/23 06:17 General: Alert, In no apparent distress, Oriented x3, Cachectic HEENT: Atraumatic. Dry oral mucosa. Respiratory: Unlabored respirations on room air. Cardiovascular: Regular rate/rhythm Gastrointestinal: Normal bowel sounds, Soft and benign, Non-distended : weathers catheter Integumentary: Pressure ulcer Left and right iliac stage 4, left thigh stage 3. Foul odor. 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 This underlies areas of bilateral skin ulceration. Left subcutaneous soft tissue thickening underlying skin ulceration opposite the left iliac bone may reflect pronounced inflammation although possibility of phlegmonous components or small abscesses cannot be entirely excluded. Left sacroiliac joint asymmetric effusion versus septic arthritis, without discrete osseous destructive changes." - Currently on Cefepime and Vancomycin (07/07-) - Blood cultures 07/06: no growth to date Fungal UTI - Urinalysis: + many yeast - Urine culture: pending - On fluconazole (started 07/06-) Recommendations - Osteomyelitis: Continue antibiotic therapy for 6 weeks duration (07/07-08/18). Given multiple comorbidities and hospitalizations, recommend continuing with Cefepime and Vancomycin. - (+) yeast in urine. continue fluconazole x 14 days (07/06- 07/19) - Pressure injuries: Pressure offloading measures - Wound care per wound care team - Supplemental nutrition - Strict blood glucose control - Monitor CBC, BMP and Vanco trough Patient would benefit from LTAC placement for comprehensive wound care and continued IV antibiotics for pressure ulcers and osteomyelitis. CM/SS following. Case discussed with Marian Bradshaw
[2023-07-11] MEDS: VANCOMYCIN 0.75 GM in NA CHLORIDE 0.9% 150 ML IVPB SCH (21:31)
[2023-07-12 04:58] LABS: Absolute Basophils 0.1 K/uL (0-0.5); Absolute Eosinophils 0.3 K/uL (0-0.5); Absolute Monocytes 1.1 K/uL (0.1-1.3); Absolute Neutrophil 7.2 K/uL (1.8-8.0); Basophils % 0.9 % (0-1.3); Eosinophils % 3.6 % (0-4.4); Hematocrit 22.4 % (36.0-45.0); Hemoglobin 7.3 g/dL (12.0-15.0); Lymphocytes % 10.3 % (15.3-44.8); MCH 28.6 pg (27.0-35.0); MCHC 32.6 g/dL (32.0-36.0); MCV 87.8 fL (80-100); MPV 8.6 fL (7.6-11.3); Monocytes % 11.1 % (3.3-12.3); Neutrophils % 74.1 % (41.7-73.7); Nucleated Red Blood Cells % 0.1 % (0-0); Platelets 260 thou/uL (152-406); RBC Red Blood Cell Count 2.55 M/uL (3.86-4.86); Red Cell Distribution Width 18.3 % (12.1-15.2)
--- NOTE | 2023-07-12 09:56 | P.PN ---
Date of Service: 07/12/23 Chief Complaint: NSTEMI, decubitus ulcers. Subjective: Patient seen and examined at bedside. No acute events overnight. She denies any new or worsening complaints at this time. Pending LTAC appeal. Physical Examination Temp Pulse Resp BP Pulse Ox 97.3 F 61 16 149/92 H 99 07/12/23 08:00 07/12/23 08:00 07/12/23 08:00 07/12/23 08:00 07/12/23 08:00 General: Alert, In no apparent distress, Oriented x3, Cachectic HEENT: Atraumatic. Normocephalic. oral mucosa dry. Respiratory: Unlabored respirations on room air. Cardiovascular: Regular rate/rhythm. No edema. Gastrointestinal: Normal bowel sounds. Non-distended. Non-tender. : weathers catheter Integumentary: Pressure ulcer Left and right iliac stage 4, left thigh stage 3. Foul odor. Laboratory Data - Reviewed Microbiology Data - Reviewed Imagings Data: - Reviewed Medication List: - Reviewed Assessment and Plan Problem List Sepsis secondary to Osteomyelitis of left Iliac Pressure 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 This underlies areas of bilateral skin ulceration. Left subcutaneous soft tissue thickening underlying skin ulceration opposite the left iliac bone may reflect pronounced inflammation alth ough possibility of phlegmonous components or small abscesses cannot be entirely excluded. Left sacroiliac joint asymmetric effusion versus septic arthritis, without discrete osseous destructive changes." - Currently on Cefepime and Vancomycin (07/07-) - Blood cultures 07/06: no growth to date Fungal UTI - Urinalysis: + many yeast - Urine culture: pending - On fluconazole (started 07/06-) Recommendations - Osteomyelitis: Continue antibiotic therapy for 6 weeks duration (07/07-08/18). Given multiple comorbidities and hospitalizations, recommend continuing with Cefepime and Vancomycin. - (+) yeast in urine. continue fluconazole x 14 days (07/06- 07/19) - Pressure injuries: Pressure offloading measures - Wound care per wound care team - Supplemental nutrition - Strict blood glucose control - Monitor CBC, BMP and Vanco trough Pending LTAC appeal, CM/SS following. Case discussed with Marian Bradshaw
[2023-07-12 10:27] LABS: Anion Gap 8.4 mEq/L (5.0-15.0); Potassium 3.4 mEq/L (3.5-5.1)
[2023-07-12] MEDS: FENTANYL CITR 100 MCG/2 ML IV PRN (11:15)
[2023-07-12] MEDS: MORPHINE 2 MG/ML SYR IV PRN (12:53)
[2023-07-12] MEDS: PETROLATUM (AQUAPHOR) JAR 396 GRAM TOP PRN (14:01)
[2023-07-12] MEDS: LORazepam 2 MG/ML VIAL IV ONE (17:06)
[2023-07-12] MEDS ORDERED: D50W 25 GM/50 ML SYRINGE IV PRN (17:22)
[2023-07-12] MEDS ORDERED: GLUCAGON 1 MG/VIAL IM PRN (17:22)
--- NOTE | 2023-07-12 17:45 | P.PN ---
Date of Service: 07/12/23 Subjective Extremely aggitated this AM. Reports feeling pain all over her body and itching after morphine was given. Reports not sleeping well last night. 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 Multiple decubitus ulcerations NSTEMI Fungal UTI Weakness/debilitation Depression/suicidal ideation Chronic Pain DiabetesIDDM Acute on chronic kidney disease History of anemia Atrial fibrillation CHF History of DVT History of HTN/HLD Gout Lupus erythematous laboratory Myoclonus Plan 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 Left sacroiliac joint asymmetric effusion versus septic arthritis, without discrete osseous destructive changes. -Dr. Robins, wound vac stopped, wet to dry with santyl BID -Started on vancomycin/cefepime 07/07-08/18 - stopped cefepime, started zosyn -Pharmacy to adjust vancomycin -PICC placed -ID consulted/following Myoclonus -Stopped morphine and cefepime for now -ativan -D5 0.45 NS NSTEMI CHF Atrial Fibrillation -Deemed secondary to demand ischemia from ulcer/wound infection. -Continue Eliquis -Troponins trended flat -continuous telemetry -Echocardiogram showed Normal LVEF 60 to 65% with normal wall motion Mild concentric left ventricular hypertrophy Diastolic dysfunction Left atrial enlargement Mild mitral, tricuspid, aortic and pulmonary regurgitation Pulmonary hypertension with right ventricular systolic pressure greater than 60 mmHg -Bumex continued at reduced dose 1mg daily given decreased PO in take in hospital Fungal UTI fever-resolved -continue diflucan (started 07/06 to end 07/19) -ID consult -no further fevers thus far -follow blood cultures -lactate 1.4 Diabetes type 2- IDDM -Accu-check ACHS and continue sliding scale insulin for glucose control. Depression/suicidal ideation -Psychiatry was consulted who evaluated the patient and did not feel that she was suicidal but rather depressed -At this time patient adamant denies any suicidal ideations reports that she was having a bad day yesterday -Will discontinue one-to-one sitter, consider initiation of SSRI Weakness/debilitation Chronic pain -Continue supportive care -pain management CKD stage III Hypertension/ Hyperlipidemia History DVT History Gout History Lupus erythematous -Continue home medications Iron deficiency anemia -Monitor H&H stable -Continue p.o. iron -Received IV iron during recent hospitalization Dvt Ppx eliquis CODE STATUS: Full code Disposition-[place] in [facility] pending appeal- Dr. Jacques involved.
[2023-07-12 18:00] LABS: Anion Gap 8.2 mEq/L (5.0-15.0); Potassium 3.2 mEq/L (3.5-5.1)
[2023-07-12 18:05] LABS: Absolute Basophils 0.1 K/uL (0-0.5); Absolute Eosinophils 0.3 K/uL (0-0.5); Absolute Lymphocytes (CBC) 1.2 K/uL (0.7-4.9); Absolute Monocytes 1.4 K/uL (0.1-1.3); Absolute Neutrophil 7.6 K/uL (1.8-8.0); Basophils % 0.8 % (0-1.3); Eosinophils % 2.8 % (0-4.4); Hematocrit 24.6 % (36.0-45.0); Hemoglobin 7.7 g/dL (12.0-15.0); Lymphocytes % 11.2 % (15.3-44.8); MCH 27.6 pg (27.0-35.0); MCHC 31.1 g/dL (32.0-36.0); MCV 88.8 fL (80-100); MPV 9.2 fL (7.6-11.3); Monocytes % 13.2 % (3.3-12.3); Nucleated Red Blood Cells % 0.1 % (0-0); Platelets 265 thou/uL (152-406); RBC Red Blood Cell Count 2.78 M/uL (3.86-4.86); Red Cell Distribution Width 18.2 % (12.1-15.2)
[2023-07-12] MEDS: D5 0.45 NS 1,000 ML IV SCH (19:27)
[2023-07-12] MEDS: DIPHENHYDRAMINE 25 MG TAB/CAP PO SCH (20:27)
[2023-07-12] MEDS: COLLAGENASE 30 GM OINTMENT TOP SCH (20:27)
--- NOTE | 2023-07-13 08:37 | P.PN ---
Date of Service: 07/13/23 Subjective Some anxiety today. C/O pain all over her body Careful pain medication choices as she seems to be reacting to morphine. Due to consistent hypotension and the need for pain medications Dr. 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 Carolyn stated her brother is POA. 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 Multiple decubitus ulcerations NSTEMI Fungal UTI Weakness/debilitation Depression/suicidal ideation Chronic Pain DiabetesIDDM Acute on chronic kidney disease History of anemia Atrial fibrillation CHF History of DVT History of HTN/HLD Gout Lupus erythematous laboratory Myoclonus Plan 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 Left sacroiliac joint asymmetric effusion versus septic arthritis, without discrete osseous destructive changes. -Dr. Robins, wound vac stopped, wet to dry with santyl BID -Started on vancomycin/zosyn 07/07-08/18 -Pharmacy to adjust vancomycin -PICC placed -ID consulted/following Myoclonus -Stopped morphine and cefepime for now -ativan -D5 0.45 NS NSTEMI CHF Atrial Fibrillation -Deemed secondary to demand ischemia from ulcer/wound infection. -Continue Eliquis -Troponins trended flat -continuous telemetry -Echocardiogram showed Normal LVEF 60 to 65% with normal wall motion Mild concentric left ventricular hypertrophy Diastolic dysfunction Left atrial enlargement Mild mitral, tricuspid, aortic and pulmonary regurgitation Pulmonary hypertension with right ventricular systolic pressure greater than 60 mmHg -Bumex continued at reduced dose 1mg daily given decreased PO in take in hospital Fungal UTI fever-resolved -continue diflucan (started 07/06 to end 07/19) -ID consult -no further fever thus far -follow blood cultures -lactate 1.4 Diabetes type 2- IDDM -Accu-check ACHS and continue sliding scale insulin for glucose control. Depression/suicidal ideation -Psychiatry was consulted who evaluated the patient and did not feel that she was suicidal but rather depressed -At this time patient adamant denies any suicidal ideations reports that she was having a bad day yesterday -Will discontinue one-to-one sitter, consider initiation of SSRI Weakness/debilitation Chronic pain Decreased PO intake -Continue supportive care -Fentanyl -EGD in the AM, likely PEG tube placement- Dr. Douglas CKD stage III Hypertension/ Hyperlipidemia History DVT History Gout History Lupus erythematous -Continue home medications Iron deficiency anemia -Monitor H&H stable -Continue p.o. iron -Received IV iron during recent hospitalization Dvt Ppx eliquis CODE STATUS: Full code Disposition-[place] in [facility] pending appeal- Dr. Jacques involved. <Asiya Jessica - Last Filed: 07/13/23 19:22> Chart has been reviewed. Events of the last 24 hours have been noted. Case discussed with JACOB. I performed a substantial part of the MDM during this patient's care today. I personally made or approved the documented management plan and acknowledge its risk of complications. I agree with the findings and documentation provided in the JACOB's notes. Chart reviewed. Events of the last 24 hours noted. Patient appears to be very malnourished and not really able to keep her caloric intake where it needs to be. Spoke with GI and PEG tube placement pending.Continue with IV antibiotic therapy for osteomyelitis. Continue with monitoring renal function closely. Monitor H&H closely as well.Continue with wound care for decubitus wounds and monitor cardiac status closely. <Uziel Jasmine - Last Filed: 07/16/23 05:39>
[2023-07-13 09:57] LABS: Anion Gap 8.2 mEq/L (5.0-15.0); Magnesium 2.2 mg/dL (1.6-2.4); Phosphorus 2.7 mg/dL (2.5-4.9); Potassium 3.2 mEq/L (3.5-5.1)
[2023-07-13 09:58] LABS: Absolute Basophils 0.1 K/uL (0-0.5); Absolute Eosinophils 0.3 K/uL (0-0.5); Absolute Lymphocytes (CBC) 1.5 K/uL (0.7-4.9); Absolute Monocytes 1.3 K/uL (0.1-1.3); Absolute Neutrophil 6.1 K/uL (1.8-8.0); Basophils % 0.8 % (0-1.3); Eosinophils % 3.6 % (0-4.4); Hematocrit 25.1 % (36.0-45.0); Hemoglobin 8.1 g/dL (12.0-15.0); Lymphocytes % 16.1 % (15.3-44.8); MCH 28.6 pg (27.0-35.0); MCHC 32.2 g/dL (32.0-36.0); MCV 88.8 fL (80-100); MPV 8.6 fL (7.6-11.3); Monocytes % 13.7 % (3.3-12.3); Neutrophils % 65.8 % (41.7-73.7); Nucleated Red Blood Cells % 0.1 % (0-0); Platelets 272 thou/uL (152-406); RBC Red Blood Cell Count 2.83 M/uL (3.86-4.86); Red Cell Distribution Width 18.4 % (12.1-15.2)
--- NOTE | 2023-07-13 12:04 | P.PN ---
Date of Service: 07/13/23 Chief Complaint: NSTEMI, decubitus ulcers. Subjective: In no apparent distress. No acute events overnight. Denies any new or worsening complaints at this time. Physical Examination Temp Pulse Resp BP Pulse Ox 97 F 65 16 108/56 L 100 07/13/23 08:00 07/13/23 08:00 07/13/23 08:00 07/13/23 08:00 07/13/23 08:00 General: In no apparent distress, Oriented x3. Cachectic HEENT: Atraumatic. Normocephalic. Oral mucosa dry. Respiratory: Unlabored respirations on room air. Cardiovascular: Regular rate/rhythm. No edema. Gastrointestinal: Normal bowel sounds. Non-distended. Non-tender. : weathers catheter Integumentary: Pressure ulcer Left and right iliac stage 4, left thigh stage 3. 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 This underlies areas of bilateral skin ulceration. Left subcutaneous soft tissue thickening underlying skin ulceration opposite the left iliac bone may reflect pronounced inflammation although possibility of phlegmonous components or small abscesses cannot be entirely excluded. Left sacroiliac joint asymmetric effusion versus septic arthritis, without discrete osseous destructive changes." - Currently on Cefepime and Vancomycin (07/07-) - Blood cultures 07/06: no growth to date Afebrile No leukocytosis, Fungal UTI - Urinalysis: + many yeast - On fluconazole (started 07/06-) Recommendations - Osteomyelitis: Continue Cefepime and Vancomycin for 6 weeks duration (07/07- 08/18). - (+) yeast in urine: continue Fluconazole x 14 days (07/06- 07/19) - Pressure offloading measures - Wound care per wound care team / Dr. Brown - Supplemental nutrition - Strict blood glucose control - Monitor CBC, BMP and Vanco trough Pending LTAC appeal, CM/SS following. Case discussed with Jemma Bradshaw.
[2023-07-13] MEDS: PIPER TAZO 3.375 GM in NA CHLORIDE 0.9% 100 ML IV SCH (17:06)
[2023-07-13] MEDS: FENTANYL CITR 100 MCG/2 ML IV PRN (17:28)
[2023-07-13] MEDS: HYDROCORTISONE SUC 100 MG INJ IV ONE (17:29)
[2023-07-14 06:29] LABS: PT Prothrombin Time 23.9 SECONDS (9.5-12.5); PTT, Activated Partial Thromb 36.8 SECONDS (24.3-36.9); Protime INR 2.22
[2023-07-14 07:16] LABS: Absolute Lymphocytes (CBC) 1.4 K/uL (0.7-4.9); Absolute Monocytes 0.8 K/uL (0.1-1.3); Absolute Neutrophil 8.9 K/uL (1.8-8.0); Basophils % 0.4 % (0-1.3); Eosinophils % 0.1 % (0-4.4); Lymphocytes % 12.5 % (15.3-44.8); MCH 27.3 pg (27.0-35.0); MCHC 30.5 g/dL (32.0-36.0); MCV 89.4 fL (80-100); MPV 9.4 fL (7.6-11.3); Monocytes % 7.3 % (3.3-12.3); Neutrophils % 79.7 % (41.7-73.7); Percent Reticulocyte Count 1.18 % (0.4-2.05); Platelets 221 thou/uL (152-406); RBC Red Blood Cell Count 2.57 M/uL (3.86-4.86); Red Cell Distribution Width 18.3 % (12.1-15.2)
[2023-07-14 07:17] LABS: ALT/SGPT < 10 U/L (13-56); AST/SGOT 15 U/L (15-37); Albumin 1.4 g/dL (3.4-5.0); Albumin/Globulin Ratio 0.3 (1.1-1.8); Alkaline Phosphatase 74 U/L (45-117); Anion Gap 9.5 mEq/L (5.0-15.0); BUN Blood Urea Nitrogen 53 mg/dL (7-18); Bicarbonate 23 mEq/L (21-32); Bilirubin Total 0.2 mg/dL (0.2-1.0); Globulin 4.9 g/dL (2.3-3.5); Glomerular Filtration Rate 36 ml/min (=/>90); Glucose Level 185 mg/dL (74-106); NT PRO-BNP 10585 pg/mL (<125); Potassium 3.5 mEq/L (3.5-5.1); Protein, Total 6.3 g/dL (6.4-8.2); Sodium Level 138 mEq/L (136-145)
[2023-07-14 07:21] LABS: Albumin 1.4 g/dL (3.4-5.0); Anion Gap 8.6 mEq/L (5.0-15.0); Magnesium 2.1 mg/dL (1.6-2.4); Phosphorus 2.1 mg/dL (2.5-4.9); Potassium 3.6 mEq/L (3.5-5.1); Prealbumin 13.5 mg/dL (20-40)
[2023-07-14] MEDS: ENSURE COMPACT 118 ML LIQUID PO SCH (07:30)
[2023-07-14] MEDS: FUROSEMIDE 20 MG/ 2ML VIAL IV ONE ×2 (08:06→15:44)
[2023-07-14] MEDS: NA CHLORIDE 0.9% 1,000 ML ONE (08:15)
--- NOTE | 2023-07-14 08:31 | P.PN ---
Date of Service: 07/14/23 Subjective Pain better controlled s/p PEG procedure Easily agitated today, was agitated by the sound of the IV running. 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 Multiple decubitus ulcerations NSTEMI Fungal UTI Weakness/debilitation Depression/suicidal ideation Chronic Pain DiabetesIDDM Acute on chronic kidney disease History of anemia Atrial fibrillation CHF History of DVT History of HTN/HLD Gout Lupus erythematous laboratory Myoclonus Lactic acidosis PEG tube Plan 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 Left sacroiliac joint asymmetric effusion versus septic arthritis, without discrete osseous destructive changes. -Dr. Robins, wound vac stopped, wet to dry with santyl BID -Started on vancomycin/zosyn 07/07-08/18 -Pharmacy to adjust vancomycin -PICC placed -ID consulted/following -lactic acid 2.1 up from 1.4 on 07/06 Myoclonus -Stopped morphine and cefepime for now -ativan -D5 0.45 NS NSTEMI CHF Atrial Fibrillation -Deemed secondary to demand ischemia from ulcer/wound infection. -Continue Eliquis -Troponins trended flat -continuous telemetry -Echocardiogram showed Normal LVEF 60 to 65% with normal wall motion Mild concentric left ventricular hypertrophy Diastolic dysfunction Left atrial enlargement Mild mitral, tricuspid, aortic and pulmonary regurgitation Pulmonary hypertension with right ventricular systolic pressure greater than 60 mmHg -Bumex continued at reduced dose 1mg daily given decreased PO in take in hospital -BNP > 10,000 Fungal UTI fever-resolved -continue diflucan (started 07/06 to end 07/19) -ID consult -no further fever thus far -follow blood cultures -lactate 1.4 Diabetes type 2- IDDM -Accu-check ACHS and continue sliding scale insulin for glucose control. Depression/suicidal ideation -Psychiatry was consulted who evaluated the patient and did not feel that she was suicidal but rather depressed -At this time patient adamant denies any suicidal ideations reports that she was having a bad day yesterday -Will discontinue one-to-one sitter, consider initiation of SSRI Weakness/debilitation Chronic pain Decreased PO intake- protein calorie malnutrition PEG tube -albumin 1.4, prealbumin 13.5 -Continue supportive care -Fentanyl -EGD and PEG tube placement (07/13)- Dr. Douglas CKD stage III Hypertension/ Hyperlipidemia History DVT History Gout History Lupus erythematous -Continue home medications -BP has stablized, was consistently hypotensive this week Iron deficiency anemia -Monitor H&H 7.0/23.0, dropped from 8.1/25.1 -one unit PRBC today -Continue p.o. iron -Received IV iron during recent hospitalization Dvt Ppx eliquis CODE STATUS: Full code Disposition-[place] in [facility] pending appeal- Dr. Jacques involved. <Asiya Jessica - Last Filed: 07/14/23 18:55> Chart has been reviewed. Events of the last 24 hours have been noted. Case discussed with JACOB. I performed a substantial part of the MDM during this patient's care today. I personally made or approved the documented management plan and acknowledge its risk of complications. I agree with the findings and documentation provided in the JACOB's notes. I agree with gastroenterology, and PEG tube placement to be completed today. Will go ahead and start tube feedings.Continue monitoring renal function plan. Continue monitoring cardiac status as well. <Uziel Jasmine - Last Filed: 07/16/23 05:40>
[2023-07-14] MEDS ORDERED: LIDOCAINE 1% MPF 2 ML AMPULE ONE (08:47)
[2023-07-14] MEDS ORDERED: propofoL 200 MG/20 ML VIAL IV ONE (08:47)
[2023-07-14] MEDS ORDERED: NA CHLORIDE 0.9% 250 ML IV SCH (09:00)
[2023-07-14] MEDS: FENTANYL CITR 100 MCG/2 ML ONE (10:00)
[2023-07-14] MEDS: BUMETANIDE 1 MG/4 ML VIAL IV SCH (10:55)
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
[2023-07-14] MEDS: NA CHLORIDE 0.9% 500 ML ONE (12:11)
--- NOTE | 2023-07-14 18:07 | P.PN ---
Date of Service: 07/14/23 S: Patient in good spirits today however still not much of an appetite. O: Wounds are the same, on wet-to-dry dressings at the moment. A: Surgically stable P: Patient is still awaiting placement at wound care facility. Wounds are improving, I am still reluctant to start back with the wound VAC until we determine the long-term care for this patient.
[2023-07-14] MEDS: ALBUMIN HUMAN 25% 100 ML IV ONE (20:40)
[2023-07-14] MEDS: VANCOMYCIN 0.75 GM in NA CHLORIDE 0.9% 150 ML IVPB SCH (21:00)
[2023-07-15 06:34] LABS: Absolute Basophils 0.1 K/uL (0-0.5); Absolute Eosinophils 0.3 K/uL (0-0.5); Absolute Lymphocytes (CBC) 1.8 K/uL (0.7-4.9); Absolute Monocytes 1.1 K/uL (0.1-1.3); Absolute Neutrophil 7.2 K/uL (1.8-8.0); Basophils % 0.7 % (0-1.3); Eosinophils % 3.2 % (0-4.4); Hematocrit 24.9 % (36.0-45.0); Hemoglobin 7.9 g/dL (12.0-15.0); Lymphocytes % 17.4 % (15.3-44.8); MCH 27.3 pg (27.0-35.0); MCHC 31.8 g/dL (32.0-36.0); MCV 85.9 fL (80-100); Monocytes % 10.1 % (3.3-12.3); Neutrophils % 68.6 % (41.7-73.7); Platelets 189 thou/uL (152-406); Red Cell Distribution Width 20.6 % (12.1-15.2)
[2023-07-15 06:35] LABS: PT Prothrombin Time 16.4 SECONDS (9.5-12.5); PTT, Activated Partial Thromb 34.3 SECONDS (24.3-36.9); Protime INR 1.51
[2023-07-15 06:36] LABS: Anion Gap 6.4 mEq/L (5.0-15.0); Magnesium 1.9 mg/dL (1.6-2.4); Phosphorus 2.3 mg/dL (2.5-4.9); Potassium 3.4 mEq/L (3.5-5.1)
[2023-07-15 07:04] LABS: Albumin 1.7 g/dL (3.4-5.0); Albumin/Globulin Ratio 0.4 (1.1-1.8); Anion Gap 6.3 mEq/L (5.0-15.0); Bilirubin Total 0.3 mg/dL (0.2-1.0); Globulin 4.5 g/dL (2.3-3.5); Potassium 3.3 mEq/L (3.5-5.1); Protein, Total 6.2 g/dL (6.4-8.2)
--- NOTE | 2023-07-15 07:48 | P.PN ---
Date of Service: 07/15/23 Subjective BP stable OVN appears calm, AAO x3, decreased agitation, converses clearly, less lethargic awaiting placement at [facility] C/O diarrhea, has not started tube feeding, will check for CDiff ROS 10 point ROS as noted above, otherwise negative Physical Exam General: AAOx3, Calm, cachectic, HEENT: Atraumatic, Normocephalic Neck: Supple Respiratory: Symmetrical chest wall movement, bilaterally clear breath sounds, on room air Cardiovascular: RRR, S1 S2 present, no murmur noted, 2+ peripheral pulses Gastrointestinal: soft and benign on palpation, normoactive bowel sounds, PEG tube present with discomfort Musculoskeletal: Other (sacral decub noted.) Neurological: Normal speech, myoclonus, aggitated Vitals Reviewed Problem list 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 Multiple decubitus ulcerations NSTEMI Fungal UTI Weakness/debilitation Depression/suicidal ideation Chronic Pain DiabetesIDDM Acute on chronic kidney disease History of anemia Atrial fibrillation CHF History of DVT History of HTN/HLD Gout Lupus erythematous laboratory Myoclonus Lactic acidosis PEG tube Hypokalemia Plan 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 Left sacroiliac joint asymmetric effusion versus septic arthritis, without discrete osseous destructive changes. -Dr. Robins, wound vac stopped, wet to dry with santyl BID -Started on vancomycin/zosyn 07/07-08/18 -Pharmacy to adjust vancomycin- trough remains elevated 24.5, last vanc dose -PICC placed -ID consulted/following -lactic acid 2.1/1.5 repeat (07/13) -Cdiff culture ordered Hypokalemia -K 3.3 -replace per protocol Myoclonus- resolved -Stopped morphine and cefepime for now -ativan -D5 0.45 NS- stopped NSTEMI CHF Atrial Fibrillation -Deemed secondary to demand ischemia from ulcer/wound infection. -Continue Eliquis -Troponins trended flat -continuous telemetry -Echocardiogram showed Normal LVEF 60 to 65% with normal wall motion Mild concentric left ventricular hypertrophy Diastolic dysfunction Left atrial enlargement Mild mitral, tricuspid, aortic and pulmonary regurgitation Pulmonary hypertension with right ventricular systolic pressure greater than 60 mmHg -Bumex continued at reduced dose 1mg daily given decreased PO in take in hospital -BNP > 10,000 Fungal UTI fever-resolved -continue diflucan (started 07/06 to end 07/19) -ID consult -no further fever thus far -follow blood cultures Diabetes type 2- IDDM -Accu-check ACHS and continue sliding scale insulin for glucose control. Depression/suicidal ideation -Psychiatry was consulted who evaluated the patient and did not feel that she was suicidal but rather depressed -At this time patient adamant denies any suicidal ideations reports that she was having a bad day yesterday -Will discontinue one-to-one sitter, consider initiation of SSRI Weakness/debilitation Chronic pain Decreased PO intake- protein calorie malnutrition PEG tube -albumin 1.7- improved -prealbumin 13.5 (07/13) -Continue supportive care -Fentanyl -EGD and PEG tube placement (07/13)- Dr. Douglas -REC: 1) start Tube feeds qac (patient is to attempt to eat the meal; then after the attempting to eat the meal, will give can of Jevity 1.5 and increase as able to 2 cans per PEG qac) 2) check Pre-albumin in 1 week CKD stage III Hypertension/ Hyperlipidemia History DVT History Gout History Lupus erythematous -Continue home medications -BP has stablized, was consistently hypotensive this week Iron deficiency anemia -Monitor H&H 7.9/24.9 after one unit PRBC yesterday, recheck H/H 8.0/25.3 -one unit PRBC (07/13) -Continue p.o. iron -Received IV iron during recent hospitalization Dvt Ppx eliquis CODE STATUS: Full code Disposition-[facility] in [facility] pending appeal- Dr. Jacques involved. <Asiya Jessica - Last Filed: 07/15/23 13:45> Chart has been reviewed. Events of the last 24 hours have been noted. Case discussed with JACOB. I performed a substantial part of the MDM during this patient's care today. I personally made or approved the documented management plan and acknowledge its risk of complications. I agree with the findings and documentation provided in the JACOB's notes. Agree with findings as mentioned above.Will go ahead and start tube feedings. Spoke with patient and she states that she has been approved for placement at [facility]. Unable to speak with case finishing machine adjuster to discuss this further. <Uziel Jasmine - Last Filed: 07/16/23 05:41>
[2023-07-15 08:30] LABS: Anisocytosis 1+; Blood Morphology Comment NOTED (NOT SEEN); Platelet Estimate ADEQ; White Blood Cell Scan OK (OK)
[2023-07-15 09:54] LABS: Percent Reticulocyte Count 1.09 % (0.4-2.05)
[2023-07-15] MEDS: DIPHENHYDRAMINE 25 MG TAB/CAP PO ONE (11:04)
[2023-07-15 11:35] VITALS: O2SAT 100
--- NOTE | 2023-07-15 11:35 | P.PN ---
Subjective Date of Service: 07/15/23 Chief Complaint: Protein-calorie malnutrition, NSTEMI, decubitus ulcers. Subjective: Improving (s/p EGD with PEG yesterday. Low albumin at 1.4, low pre- albumin at 13.5. She ate most of breakfast. Tube feeds do not appear to have been started.) Review of Systems 10-point ROS is otherwise unremarkable General: Weakness (Improved.) Physical Examination - Vital Signs Temperature: 97.2 F Blood Pressure: 124/58 Pulse: 60 Respirations: 16 Pulse Ox (%): 100 - Physical Exam General: Alert, In no apparent distress, Oriented x3, Cooperative HEENT: Atraumatic, Normocephalic, PERRLA, EOMI Neck: Supple Respiratory: Normal air movement Cardiovascular: Normal pulses Gastrointestinal: Soft and benign, No tenderness, No rebound, No guarding Neurological: Normal speech Assessment And Plan - Current Problems (Diagnosis) (1) Protein calorie malnutrition Current Visit: Yes Status: Acute (2) Anorexia Current Visit: Yes Status: Acute Comment: Improved. (3) Congestive heart failure Current Visit: Yes Status: Acute (4) Type 2 WI (myocardial infarction) Current Visit: Yes Status: Acute (5) Chronic renal disease Current Visit: No Status: Acute Qualifiers: Chronic kidney disease stage: stage 4 (severe) Qualified Code(s): N18.4 - Chronic kidney disease, stage 4 (severe) (6) Pressure ulcer of right buttock, stage 3 Current Visit: No Status: Acute (7) Pressure ulcer of sacral region, stage 3 Current Visit: No Status: Acute (8) Atrial fibrillation Current Visit: No Status: Chronic Qualifiers: Atrial fibrillation type: persistent (9) COPD (chronic obstructive pulmonary disease) Current Visit: No Status: Chronic Qualifiers: COPD type: chronic bronchitis Chronic bronchitis type: unspecified Qualified Code(s): J42 - Unspecified chronic bronchitis (10) Diabetes type 2, controlled Current Visit: No Status: Chronic Qualifiers: Diabetes mellitus ferry terminal supervisor insulin use: without ferry terminal supervisor use Diabetes mellitus complication status: without complication Qualified Code(s): E11.9 - Type 2 diabetes mellitus without complications (11) Gout Current Visit: No Status: Chronic Qualifiers: Gout site: multiple sites Encounter type: subsequent encounter (12) HTN (hypertension) Current Visit: No Status: Chronic Qualifiers: Hypertension type: renovascular hypertension Qualified Code(s): I15.0 - Renovascular hypertension (13) Hyperlipidemia Current Visit: No Status: Chronic Qualifiers: Hyperlipidemia type: unspecified Qualified Code(s): E78.5 - Hyperlipidemia, unspecified - Plan REC: 1) start Tube feeds qac (patient is to attempt to eat the meal; then after the attempting to eat the meal, will give can of Jevity 1.5 and increase as able to 2 cans per PEG qac) 2) check Pre-albumin in 1 week
[2023-07-15] MEDS ORDERED: JEVITY 1.5 CAL LIQUID 1,000 ML BOT FT SCH (12:00)
[2023-07-15 12:43] LABS: Hematocrit 25.3 % (36.0-45.0)
[2023-07-15] MEDS: LACTOBACILLUS/ACIDOPHILUS TAB PO SCH (13:07)
[2023-07-15] MEDS: LOPERAMIDE HCL 2 MG CAPSULE PO PRN (13:28)
[2023-07-15 18:31] LABS: C.diff Antigen/Toxin Ag neg : Tox neg (NEG : NEG); CDIFF INTERNAL NEG CONTROL White Background (WHITE BKGD); STOOL CONSISTENCY Liquid/Semi-Solid
[2023-07-16] MEDS: METHYLPREDNISOLONE 40 MG INJ IV SCH (06:14)
[2023-07-16 08:40] LABS: Absolute Eosinophils 0.2 K/uL (0-0.5); Absolute Lymphocytes (CBC) 0.9 K/uL (0.7-4.9); Absolute Monocytes 0.3 K/uL (0.1-1.3); Absolute Neutrophil 7.5 K/uL (1.8-8.0); Basophils % 0.5 % (0-1.3); Eosinophils % 2.8 % (0-4.4); Hematocrit 24.6 % (36.0-45.0); Lymphocytes % 9.7 % (15.3-44.8); MCH 27.8 pg (27.0-35.0); MCHC 32.5 g/dL (32.0-36.0); MCV 85.4 fL (80-100); MPV 8.7 fL (7.6-11.3); Monocytes % 3.3 % (3.3-12.3); Neutrophils % 83.7 % (41.7-73.7); Nucleated Red Blood Cells % 0.1 % (0-0); Platelets 183 thou/uL (152-406); RBC Red Blood Cell Count 2.88 M/uL (3.86-4.86)
[2023-07-16 08:54] LABS: Anion Gap 6.8 mEq/L (5.0-15.0); Magnesium 1.9 mg/dL (1.6-2.4); Phosphorus 2.8 mg/dL (2.5-4.9); Potassium 3.8 mEq/L (3.5-5.1)
--- NOTE | 2023-07-16 09:04 | P.PN ---
Date of Service: 07/16/23 Chief Complaint: NSTEMI, decubitus ulcers. Subjective: s/p PEG tube placement 07/13. [facility]AC approved, pending transfer. In no apparent distress. No new or worsening complaints at this time. Physical Examination Temp Pulse Resp BP Pulse Ox 97.5 F 60 16 139/63 100 07/16/23 04:00 07/16/23 04:00 07/16/23 06:43 07/16/23 04:00 07/16/23 06:43 General: In no apparent distress, Oriented x3. Cachectic HEENT: Atraumatic. Normocephalic. Oral mucosa dry. Respiratory: Unlabored respirations on room air. Cardiovascular: Regular rate/rhythm. No edema. Gastrointestinal: Normal bowel sounds. PEG tube. mild tenderness surrounding newly inserted PEG tube site. : weathers catheter Integumentary: Pressure ulcer Left and right iliac stage 4. dressing clean dry and intact. 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 This underlies areas of bilateral skin ulceration. Left subcutaneous soft tissue thickening underlying skin ulceration opposite the left iliac bone may reflect pronounced inflammation although possibility of phlegmonous components or small abscesses cannot be entirely excluded. Left sacroiliac joint asymmetric effusion versus septic arthritis, without discrete osseous destructive changes." - Currently on Cefepime and Vancomycin (07/07-) - Blood cultures 07/06: no growth to date Afebrile No leukocytosis, Fungal UTI - Urinalysis: + many yeast - On fluconazole (started 07/06-) Recommendations - Osteomyelitis: Continue Cefepime and Vancomycin for 6 weeks duration (07/07- 08/18). - (+) yeast in urine: continue Fluconazole x 14 days (07/06- 07/19) - Pressure offloading measures - Wound care per wound care team / Dr. Brown - Supplemental nutrition - Strict blood glucose control - Monitor CBC, BMP and Vanco trough Case discussed with Jemma Bradshaw.
--- NOTE | 2023-07-16 12:14 | P.DS ---
Admission Date: 07/03/23 Discharge Date: 07/16/23 Disposition: LONG-TERM ACUTE CARE FACILITY Discharge Condition: GOOD Reason for Admission: Protein-calorie malnutrition, NSTEMI, decubitus ulcers. 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 She is presently on wound VAC. She also has a history of lupus erythematosus and CKD stage III and follows up with Dr. Ochoa. She came to the ED with complaint of pain in the buttock area and was found to have significant abnormalities which include elevated troponin. She reports that she was recently discharged from detention. She was admitted for workup of suspected NSTEMI. There was no complaint of chest pain, nausea, vomiting, worsening shortness of breath. Hospital Course: Carolyn Piper is a pleasant 72 year old female with a past medical history significant for diastolic CHF, atrial fibrillation on Eliquis, GI bleed, GERD, hypertension, CKD stage III, DM2 with polyneuropathy, HLD, chronic pain, COPD, CVA, anemic of chronic disease, weakness/debilitation, multiple decubitus ulcers, lupus, gout, DVT who was admitted to the [facility] on 07/01/23 for NSTEMI. Carolyn presented to the ED with chief complaint pain all over. Admission laboratory evaluation showed NSTEMI further investigation was necessary. Dr. Szymanski was consulted and discovered that the troponin was likely from a type II IN due to patient being bedridden and with multiple decubitus ulcers. Dr. Brown was consulted for decubitus ulcer that he previously performed area and incision and drainage as well as applied a wound VAC. Dr. Brown concluded wet-to-dry with send he will would be more appropriate at this time. CT scan identified left iliac osteomyelitis and IV antibiotics were adjusted. PICC line is in place for continued antibiotic treatment. PEG tube was placed due to significant decrease in p.o. intake. She is again tolerating p.o. diet with a better appetite, On room air, and hemodynamically stable for transfer to [facility] in [place]. Please continue p.o. diet as tolerated with high-protein supplements. On 07/16/23, Carolyn was seen on morning rounds and deemed medically stable for discharge. Carolyn was discharged with instructions to schedule follow-up appointments with PCP. Carolyn was provided prescriptions for Ensure Enlive, Ensure max protein. The patient was given the opportunity to ask questions and reported no further questions. Furthermore, all questions were answered to the best of my ability. A copy of this discharge summary will be sent to the above providers to facilitate continuity of care. Today, I personally spent 50 minutes with Carolyn, of which greater than 50% of the time was spent in patient education, counseling, and coordination of care as described above. Physical Exam General: Alert and oriented x 3, NAD, Calm, cachectic, cooperative HEENT: Atraumatic, Normocephalic, PERRLA Neck: Supple Respiratory: Symmetrical chest wall movement, bilaterally clear breath sounds, on room air Cardiovascular: Regular rate and rhythm HR 62, S1 S2 present, no murmur noted, 2+ peripheral pulses Gastrointestinal: soft and benign on palpation, normoactive bowel sounds, PEG tube present with discomfort Musculoskeletal: Other (sacral decub noted.) Neurological: Normal speech, myoclonus, aggitated Vital Signs/Physical Exam: Temp Pulse Resp BP Pulse Ox 97.2 F 62 16 143/61 H 100 07/16/23 08:00 07/16/23 08:00 07/16/23 08:00 07/16/23 08:00 07/16/23 08:00 Laboratory Data at Discharge: WBC 9.00 thou/uL (4.3-10.9) 07/16/23 08:21 Hgb 8.0 g/dL (12.0-15.0) L 07/16/23 08:21 Hct 24.6 % (36.0-45.0) L 07/16/23 08:21 Plt Count 183 thou/uL (152-406) 07/16/23 08:21 PT 16.4 SECONDS (9.5-12.5) H 07/15/23 05:30 INR 1.51 07/15/23 05:30 APTT 34.3 SECONDS (24.3-36.9) 07/15/23 05:30 Sodium 141 mEq/L (136-145) 07/16/23 08:21 Potassium 3.8 mEq/L (3.5-5.1) D 07/16/23 08:21 BUN 51 mg/dL (7-18) H 07/16/23 08:21 Creatinine 1.59 mg/dL (0.55-1.02) H 07/16/23 08:21 Glucose 80 mg/dL (74-106) 07/16/23 08:21 Phosphorus 2.8 mg/dL (2.5-4.9) 07/16/23 08:21 Magnesium 1.9 mg/dL (1.6-2.4) 07/16/23 08:21 Total Bilirubin 0.3 mg/dL (0.2-1.0) 07/15/23 05:30 AST 18 U/L (15-37) 07/15/23 05:30 ALT 11 U/L (13-56) L 07/15/23 05:30 Alkaline Phosphatase 71 U/L (45-117) 07/15/23 05:30 Home Medications: Apixaban [Eliquis] 5 mg PO BID 02/07/23 Bumetanide 2 mg PO DAILY 02/07/23 Gabapentin 300 mg PO TID 02/07/23 Hydralazine [Apresoline*] 25 mg PO DAILY 02/07/23 Hydroxychloroquine [Plaquenil*] 200 mg PO DAILY 02/07/23 allopurinoL [Allopurinol] 1 tab PO DAILY 02/07/23 Donepezil [Aricept*] 10 mg PO BEDTIME tab 06/28/23 Hydrocodone 10/APAP 325 [Holly 10325*] 1 tab PO Q6H PRN tab 06/28/23 levoFLOXacin [Levaquin*] 750 mg PO Q48H tab 06/28/23 Atorvastatin Calcium [Lipitor*] 10 mg PO BEDTIME 07/01/23 Collagenase [Santyl Ointment*] 1 appl TOP DAILY 07/01/23 Docusate Sodium [Stool Softener] 100 mg PO BID 07/01/23 Metoprolol Tartrate [Lopressor*] 50 mg PO DAILY 07/01/23 Omeprazole 20 mg PO DAILY 07/01/23 Ensure Enlive 237 ml PO BID #60 can 07/16/23 Ensure Max Protein [Ensure Compact] 273 ml PO BIDAC #60 can 07/16/23 Jevity 1.5 Giuseppe Liquid 240 ml FT SEECOM bot 07/16/23 Humble [Humble*] 1 pkt PO BID 07/16/23 Loperamide [Imodium*] 2 mg PO Q4H PRN cap 07/16/23 Petrolatum 41% Oint [Aquaphor] 1 felicitas TOP BID PRN jar 07/16/23 New Medications: Ensure Max Protein [Ensure Compact] 273 ml PO BIDAC #60 can Ensure Enlive 237 ml PO BID #60 can Physician Discharge Instructions: Carolyn presented to the ED with chief complaint pain all over. Admission laboratory evaluation showed NSTEMI further investigation was necessary. Dr. Szymanski was consulted and discovered that the troponin was likely from a type II IN due to patient being bedridden and with multiple decubitus ulcers. Dr. Brown was consulted for decubitus ulcer that he previously performed area and incision and drainage as well as applied a wound VAC. Dr. Brown concluded wet-to-dry with send he will would be more appropriate at this time. CT scan identified left iliac osteomyelitis and IV antibiotics were adjusted. PICC line is in place for continued antibiotic treatment. PEG tube was placed due to significant decrease in p.o. intake. She is again tolerating p.o. diet with a better appetite, On room air, and hemodynamically stable for transfer to [facility] in [place]. Please continue p.o. diet as tolerated with high-protein supplements, Tube feed recommendations below. -DC to LTAC -Follow-up with Attending at the LTAC in 24hrs -advance TFs to goal -Establish care with [facility] and schedule appt 1-2 weeks -Please call Dr. Jasmine at [phone] if any questions regarding hospital stay -Please call nursing station at [phone] if any nursing or medication questions -Return to the emergency room if symptoms worsen Tube feed recommendations: 1) start Tube feeds qac (patient is to attempt to eat the meal; then after the attempting to eat the meal, will give can of Jevity 1.5 and increase as able to 2 cans per PEG qac) 2) check Pre-albumin in 1 week Patient will transfer to LTAC: [facility] Referral [facility] [place] [address] P:[phone] Diet: AHA Activity: Fall precautions Followup: OOT,OOT [Primary Care Provider] -
[2023-07-16 13:07] VITALS: BP 134/63; TEMP 98
[2023-07-16] MEDS: VANCOMYCIN 0.75 GM in NA CHLORIDE 0.9% 150 ML IVPB SCH (15:05)
--- NOTE | 2023-07-18 12:48 | EKG ---
Test Date: 2023-07-12 Test Time: 08:57:39 Mounter Saxophones: TAMIKO MEASUREMENT RESULTS: Intervals: Rate: 76 NV: QRSD: 156 QT: 502 QTc: 564 Burson: P: NV: QRS: 233 T: -55 INTERPRETIVE STATEMENTS: Baseline artifact with likely sinus rhythm Electronically Signed On 07-18-23 12:47:29 CDT by Serafin Viera
== END 2023-07-16 16:03 | DRG 592 ==
LOC: ER 18:45 → 4TH 21:35 → OBSVTOIN 07-03 12:23
PROVIDERS: ADMIT Internal Medicine Nephrology; ATTEND Hospitalist
PROC: 02HV33Z Insertion of Infusion Device into Superior Vena Cava, Percutaneous Approach (ICD-10-PCS; 2023-07-09)
PROC: 30233N1 Transfusion of Nonautologous Red Blood Cells into Peripheral Vein, Percutaneous Approach (ICD-10-PCS; 2023-07-14)
PROC: 0DH63UZ Insertion of Feeding Device into Stomach, Percutaneous Approach (ICD-10-PCS; principal; 2023-07-14 08:30)
DX: L89.324 Pressure ulcer of left buttock, stage 4 (principal); A41.9 Sepsis, unspecified organism; I21.A1 Myocardial infarction type 2; E43 Unspecified severe protein-calorie malnutrition; Z68.1 Body mass index [BMI] 19.9 or less, adult; I50.32 Chronic diastolic (congestive) heart failure; I13.0 Hypertensive heart and chronic kidney disease with heart failure and stage 1 through stage 4 chronic kidney disease, or unspecified chronic kidney disease; I48.19 Other persistent atrial fibrillation; R45.851 Suicidal ideations; N39.0 Urinary tract infection, site not specified; M86.8X8 Other osteomyelitis, other site; R64 Cachexia; E87.20 Acidosis, unspecified; N18.4 Chronic kidney disease, stage 4 (severe); E11.22 Type 2 diabetes mellitus with diabetic chronic kidney disease; E11.42 Type 2 diabetes mellitus with diabetic polyneuropathy; E11.69 Type 2 diabetes mellitus with other specified complication; D63.1 Anemia in chronic kidney disease; D50.9 Iron deficiency anemia, unspecified; L89.314 Pressure ulcer of right buttock, stage 4; L89.153 Pressure ulcer of sacral region, stage 3; E78.5 Hyperlipidemia, unspecified; G89.29 Other chronic pain; F32.9 Major depressive disorder, single episode, unspecified; F41.9 Anxiety disorder, unspecified; K21.9 Gastro-esophageal reflux disease without esophagitis; I27.29 Other secondary pulmonary hypertension; G25.3 Myoclonus; E83.39 Other disorders of phosphorus metabolism; L93.0 Discoid lupus erythematosus; I08.8 Other rheumatic multiple valve diseases; M1A.9XX0 Chronic gout, unspecified, without tophus (tophi); J42 Unspecified chronic bronchitis; E87.6 Hypokalemia; K29.50 Unspecified chronic gastritis without bleeding; Z88.1 Allergy status to other antibiotic agents; Z88.8 Allergy status to other drugs, medicaments and biological substances; Z79.01 Long term (current) use of anticoagulants; Z74.01 Bed confinement status; Z86.73 Personal history of transient ischemic attack (TIA), and cerebral infarction without residual deficits; Z79.899 Other long term (current) drug therapy; Z90.710 Acquired absence of both cervix and uterus; Z89.512 Acquired absence of left leg below knee; Z86.718 Personal history of other venous thrombosis and embolism; Z95.810 Presence of automatic (implantable) cardiac defibrillator
CPT/HCPCS: 0240U; 36415; 71045; 72192; 80048; 80053; 80202; 81001; 82040; 82140; 82607; 82947; 83540; 83605; 83735; 83880; 84100; 84134; 84484; 85014; 85018; 85025; 85027; 85044; 85610; 85730; 86850; 86900; 86901; 86920; 87040; 87045; 87046; 87324; 93005; 93306; 96374; 96375; 97110; 97161; 97530; 99285; G0378; J0692; J1650; J1720; J1940; J2270; J2543; J2704; J2920; J3010; J3590; J7030; J7040; J7050; J7799; P9016; P9047

== ENCOUNTER 2023-11-24 16:00 | Inpatient (IN) | payer OTHER ==
[2023-11-24 17:06] LABS: Absolute Eosinophils 0.2 K/uL (0-0.5); Absolute Lymphocytes (CBC) 1.5 K/uL (0.7-4.9); Absolute Monocytes 0.2 K/uL (0.1-1.3); Absolute Neutrophil 5.2 K/uL (1.8-8.0); Basophils % 0.7 % (0-1.3); Eosinophils % 3.3 % (0-4.4); Hematocrit 27.9 % (36.0-45.0); Hemoglobin 8.6 g/dL (12.0-15.0); Lymphocytes % 21.1 % (15.3-44.8); MCH 27.6 pg (27.0-35.0); MCHC 30.8 g/dL (32.0-36.0); MCV 89.9 fL (80-100); MPV 9.8 fL (7.6-11.3); Monocytes % 2.2 % (3.3-12.3); Neutrophils % 72.7 % (41.7-73.7); Nucleated Red Blood Cells % 0.1 % (0-0); Platelets 78 thou/uL (152-406); RBC Red Blood Cell Count 3.11 M/uL (3.86-4.86); Red Cell Distribution Width 14.9 % (12.1-15.2)
--- NOTE | 2023-11-24 17:27 | RAD REPORT ---
EXAM DESCRIPTION: RAD - Chest Single View - 11/24/2023 5:08 pm CLINICAL HISTORY: edema Chest pain. COMPARISON: <Comparisons> FINDINGS: Portable technique limits examination quality. Moderate pulmonary edema. The heart is significantly enlarged. No displaced fractures.Multi lead pace r device. IMPRESSION: Moderate CHF.
[2023-11-24 17:37] LABS: ALT/SGPT 22 U/L (13-56); Albumin/Globulin Ratio 0.4 (1.1-1.8); Alkaline Phosphatase 99 U/L (45-117); Anion Gap 11.3 mEq/L (5.0-15.0); BUN Blood Urea Nitrogen 64 mg/dL (7-18); Bicarbonate 20 mEq/L (21-32); Bilirubin Total 0.4 mg/dL (0.2-1.0); Globulin 5.4 g/dL (2.3-3.5); Glomerular Filtration Rate 29 ml/min (=/>90); Glucose Level 110 mg/dL (74-106); NT PRO-BNP 12022 pg/mL (<125); Protein, Total 7.4 g/dL (6.4-8.2); Sodium Level 138 mEq/L (136-145); Troponin High Sensitivity 46.7 pg/mL (<58.9)
[2023-11-24 17:40] LABS: AST/SGOT 41 U/L (15-37); Bilirubin Direct < 0.2 mg/dL (0-0.2); Bilirubin Indirect, Calculated 0.2 mg/dL (0.2-0.8); Magnesium 2.2 mg/dL (1.6-2.4); Potassium 5.3 mEq/L (3.5-5.1)
[2023-11-24 17:50] LABS: Anisocytosis 2+; Blood Morphology Comment NOTED (NOT SEEN); Hypochromasia 2+; Platelet Estimate DECR; White Blood Cell Scan OK (OK)
--- NOTE | 2023-11-24 18:38 | EDPHYS ---
Physician Documentation [facility] Name: Carolyn Piper Age: 73 yrs Sex: Female : 1950 Arrival Date: 11/24/2023 Time: 16:00 Bed 2 Private MD: ED Physician Amandeep Patel HPI: 11/23 19:44 This 73 yrs old Black Female presents to ER via EMS with complaints of Leg Swelling. rt 19:44 Patient presents to the ED with lower extremity swelling plus dyspnea. Patient is rt usually on Bumex, was changed over to Lasix which she states has not worked as well for her. She states that she has been retaining fluid. She denies other acute complaints at this time, symptoms are moderate in severity, no other aggravating or alleviating factors.. Historical: - Allergies: 16:03 acyclovir; kc6 16:03 fameiclonir; kc6 16:03 Propafenone; kc6 16:03 Valacyclovir HCl; kc6 16:03 Valtrex; kc6 - PMHx: 16:03 Anemia; Atrial Fib; blood clot; CHF; Chronic pain; CVA; Diabetes - IDDM; GI disease; kc6 Gout; Hyperlipidemia; Hypertension; liver failure; Lupus erythematosus; Renal Disease; sciatica; - PSHx: 16:03 Left BKA; kc6 - Immunization history:: Adult Immunizations up to date. - Infectious Disease History:: Denies. - Social history:: Smoking status: Patient denies any tobacco usage or history of. - Family history:: not pertinent. ROS: 19:44 Constitutional: Negative for fever, chills, and weight loss, Abdomen/GI: Negative for rt abdominal pain, nausea, vomiting, diarrhea, and constipation, MS/Extremity: Negative for injury and deformity, Skin: Negative for injury, rash, and discoloration, 19:44 Cardiovascular: Positive for edema, Negative for chest pain, 19:44 Respiratory: Positive for cough, shortness of breath, Exam: 19:44 Constitutional: This is a well developed, well nourished patient who is awake, alert, rt and in no acute distress. Chest/axilla: Normal chest wall appearance and motion. Nontender with no deformity. No lesions are appreciated. Cardiovascular: Regular rate and rhythm with a normal S1 and S2. No gallops, murmurs, or rubs. Normal PMI, no JVD. No pulse deficits. Abdomen/GI: Soft, non-tender, with normal bowel sounds. No distension or tympany. No guarding or rebound. No evidence of tenderness throughout. Skin: Warm, dry with normal turgor. Normal color with no rashes, no lesions, and no evidence of cellulitis. 19:44 Respiratory: Bibasilar crackles, no respiratory distress, 19:44 Musculoskeletal/extremity: Left above-knee amputation noted, 3+ pitting bilateral lower extremity edema noted. 19:44 ECG was reviewed by the Attending Physician. rt Vital Signs: 16:01 BP 114 / 76; Pulse 65; Resp 18 S; Temp 98.3(O); Pulse Ox 99% on R/A; Height 5 ft. 9 in. kc6 (R); 18:46 BP 128 / 62; Pulse 60; Resp 15 S; Pulse Ox 100% on R/A; kc6 19:19 BP 129 / 60; Pulse 60; Resp 15; Temp 98.6; Pulse Ox 100% ; jm12 MDM: 16:14 Patient medically screened. rt 19:44 Differential Diagnosis CHF, edema. rt 19:51 Data reviewed: vital signs, nurses notes, lab test result(s), EKG, radiologic studies. rt Consideration of Admission/Observation Patient was admitted/placed on observation. Management of patient was discussed with the following: Hospitalist: Agrees to admit. I considered the following discharge prescriptions or medication management in the emergency department Medications were administered in the Emergency Department. See MAR. Independent interpretation of the following test(s) in the Emergency Department X-Ray: My interpretation is Pulmonary edema seen on interpretation of x-ray images. Care significantly affected by the following chronic conditions: Congestive Heart Failure. Counseling: I had a detailed discussion with the patient and/or guardian regarding the historical points, exam findings, and any diagnostic results supporting the discharge/admit diagnosis, lab results, radiology results, the need for further work-up and treatment in the hospital. Response to treatment: the patient's symptoms have mildly improved after treatment. 11/23 16:43 Order name: Basic Metabolic Panel; Complete Time: 18:00 rt 11/23 16:43 Order name: CBC with Diff; Complete Time: 18:00 rt 11/23 16:43 Order name: LFT's; Complete Time: 18:00 rt 08 16:43 Order name: Magnesium; Complete Time: 18:00 rt 11/23 16:43 Order name: NT PRO-BNP; Complete Time: 18:00 rt 11/23 16:43 Order name: Troponin HS; Complete Time: 18:00 rt 11/23 17:11 Order name: CBC Smear Scan; Complete Time: 18:00 EDMS 11/23 19:08 Order name: CBC with Automated Diff EDMS 11/23 19:08 Order name: CBC with Automated Diff EDMS 11/23 19:08 Order name: Comprehensive Metabolic Panel EDMS 11/23 19:08 Order name: Comprehensive Metabolic Panel EDMS 11/23 16:43 Order name: XRAY Chest (1 view); Complete Time: 17:30 rt 11/23 16:43 Order name: Cardiac monitoring; Complete Time: 17:36 rt 11/23 16:43 Order name: EKG - Nurse/Tech; Complete Time: 17:36 rt 11/23 16:43 Order name: IV Saline Lock; Complete Time: 16:54 rt 11/23 16:43 Order name: Labs collected and sent; Complete Time: 16:54 rt 11/23 16:43 Order name: O2 Per Protocol; Complete Time: 16:58 rt 11/23 16:43 Order name: O2 Sat Monitoring; Complete Time: 16:58 rt EC:44 Rate is 60 beats/min. Rhythm is regular, Normal Sinus Rhythm with No ectopy, rt Nonspecific idioventricular block. QRS [place] is Normal. FL interval is normal. No Q waves. No ST changes noted. Administered Medications: 17:02 Not Given (Other Intervention Used): bumetanide1 mg IVP once kc6 18:54 Drug: Furosemide IVP 40 mg IVP once; give over 2 minutes Route: IVP; Site: left wrist; kc6 Disposition Summary: 11/24/23 18:38 Hospitalization Ordered Notes: Hospitalization Status: Observation rt Provider: Johny Panchal rt Location: Telemetry/MedSurg (observation) rt Condition: Stable rt Problem: new rt Symptoms: are unchanged rt Bed/Room Type: Standard rt Room Assignment: 414(11/24/23 19:12) jb4 Diagnosis - Pulmonary edema rt Forms: - Medication Reconciliation Form rt - SBAR form rt - Leadership Thank You Letter rt Signatures: Dispatcher [employer] EDMS Owen Vargas, RN RN jb4 Mirna Sampson RN RN kc6 Amandeep Patel MD MD rt Corrections: (The following items were deleted from the chart) 16:43 16:43 BASIC METABOLIC PANEL+C.LAB.BRZ ordered. EDMS EDMS 16:43 16:43 CBC+H.LAB.BRZ ordered. EDMS EDMS 16:43 16:43 HEPATIC FUNCTION+C.LAB.BRZ ordered. EDMS EDMS 16:43 16:43 MAGNESIUM+C.LAB.BRZ ordered. EDMS EDMS 16:43 16:43 PROBNP+C.LAB.BRZ ordered. EDMS EDMS 16:43 16:43 Troponin High Sensitivity+C.LAB.BRZ ordered. EDMS EDMS 16:44 16:44 Chest Single View+RAD.RAD.BRZ ordered. EDMS EDMS 19:12 18:38 rt jb4
--- NOTE | 2023-11-24 18:38 | ER ---
Nurse's Notes [facility] Name: Carolyn Piper Age: 73 yrs Sex: Female : 1950 Arrival Date: 11/24/2023 Time: 16:00 Bed 2 Private MD: Diagnosis: Pulmonary edema Presentation: 11/23 16:01 Chief complaint: EMS states: they were toned out to [place] for "full body swelling". kc6 pt reports she is not filling up her urinary catheter like usual, is SOB at night, and that the prison has been giving her Lasix daily even though she is not supposed to take it. Coronavirus screen: At this time, the client does not indicate any symptoms associated with coronavirus-19. Ebola Screen: No symptoms or risks identified at this time. Initial Sepsis Screen: Does the patient meet any 2 criteria? No. Patient's initial sepsis screen is negative. Does the patient have a suspected source of infection? No. Patient's initial sepsis screen is negative. Risk Assessment: Do you want to hurt yourself or someone else? Patient reports no desire to harm self or others. Onset of symptoms was November 24, 2023. 16:01 Method Of Arrival: EMS: [facility] kc6 16:01 Acuity: KUSHAL 3 kc6 Triage Assessment: 16:03 General: Appears in no apparent distress. comfortable, Behavior is calm, cooperative, kc6 appropriate for age. Pain: Complains of pain in buttocks and right foot. EENT: No signs and/or symptoms were reported regarding the EENT system. Neuro: Level of Consciousness is awake, alert, obeys commands, Oriented to person, place, time, situation, Appropriate for age. Cardiovascular: Capillary refill < 3 seconds. Respiratory: Airway is patent Trachea midline Respiratory effort is even, unlabored, Respiratory pattern is regular, symmetrical. GI: PEG tube in place, clamped. to gravity drainage. Site clean. Colostomy site is clean and dry. Ostomy appliance is intact. : No signs and/or symptoms were reported regarding the genitourinary system. Story in place to gravity drainage clamped. Derm: Skin with poor turgor Skin is dry, Skin is normal, Skin temperature is warm Wound noted buttocks. Musculoskeletal: Swelling present in right leg and left quadriceps. Historical: - Allergies: 16:03 acyclovir; kc6 16:03 fameiclonir; kc6 16:03 Propafenone; kc6 16:03 Valacyclovir HCl; kc6 16:03 Valtrex; kc6 - PMHx: 16:03 Anemia; Atrial Fib; blood clot; CHF; Chronic pain; CVA; Diabetes - IDDM; GI disease; kc6 Gout; Hyperlipidemia; Hypertension; liver failure; Lupus erythematosus; Renal Disease; sciatica; - PSHx: 16:03 Left BKA; kc6 - Immunization history:: Adult Immunizations up to date. - Infectious Disease History:: Denies. - Social history:: Smoking status: Patient denies any tobacco usage or history of. - Family history:: not pertinent. Screenin:05 [facility] ED Fall Risk Assessment (Adult) History of falling in the last 3 months, kc6 including since admission No falls in past 3 months (0 pts) Confusion or Disorientation No (0 pts) Intoxicated or Sedated No (0 pts) Impaired Gait Yes (1 pt) Mobility Assist Device Used Yes (1 pt) Altered Elimination Yes (1 pt) Score/Fall Risk Level 3 or more points = High Risk. Abuse screen: Denies threats or abuse. Denies injuries from another. Nutritional screening: No deficits noted. Tuberculosis screening: No symptoms or risk factors identified. Assessment: 16:06 Reassessment: please see triage. kc6 17:06 Reassessment: Patient appears in no apparent distress at this time. No changes from 6 previously documented assessment. Patient and/or family updated on plan of care and expected duration. Pain level reassessed. Patient is alert, oriented x 3, equal unlabored respirations, skin warm/dry/pink. 18:06 Reassessment: Patient appears in no apparent distress at this time. No changes from kc6 previously documented assessment. Patient and/or family updated on plan of care and expected duration. Pain level reassessed. Patient is alert, oriented x 3, equal unlabored respirations, skin warm/dry/pink. Vital Signs: 16:01 BP 114 / 76; Pulse 65; Resp 18 S; Temp 98.3(O); Pulse Ox 99% on R/A; Height 5 ft. 9 in. kc6 (R); 18:46 BP 128 / 62; Pulse 60; Resp 15 S; Pulse Ox 100% on R/A; kc6 19:19 BP 129 / 60; Pulse 60; Resp 15; Temp 98.6; Pulse Ox 100% ; jm12 ED Course: 16:01 Patient arrived in ED. kc6 16:03 Triage completed. kc6 16:03 Arm band placed on. kc6 16:05 Amandeep Patel MD is Attending Physician. rt 16:05 Patient has correct armband on for positive identification. Placed in gown. Bed in low kc6 position. Call light in reach. Side rails up X2. Pulse ox on. NIBP on. Warm blanket given. Pillow given. 16:54 Initial lab(s) drawn, by me, sent to lab. Inserted saline lock: 22 gauge in left wrist, em1 using aseptic technique. Blood collected. Flushed with 10 mL NS. 16:58 Mirna Sampson, YAKELIN is Primary Nurse. kc6 17:10 XRAY Chest (1 view) In Process Unspecified. EDMS 18:36 Johny Panchal MD is Hospitalizing Provider. rt 20:11 Inserted Accessed Patient admitted, IV remains in place. intact. jm12 Administered Medications: 17:02 Not Given (Other Intervention Used): bumetanide1 mg IVP once kc6 18:54 Drug: Furosemide IVP 40 mg IVP once; give over 2 minutes Route: IVP; Site: left wrist; kc6 Outcome: 18:38 Decision to Hospitalize by Provider. rt 20:11 Admitted to Med/surg accompanied by tech, via stretcher, room 414, jm12 20:11 Condition: stable 20:11 Instructed on the need for admit, Demonstrated understanding of instructions, 20:12 Patient left the ED. jm12 Signatures: Dispatcher [employer] EDMS Todd Kiran em1 Mirna Sampson, RN RN kc6 Amandeep Patel MD MD rt Marietta Phillips RN RN jm12 Corrections: (The following items were deleted from the chart) 18:56 16:03 Pain: Complains of pain in right foot kc6 kc6 18:56 16:03 GI: No signs and/or symptoms were reported involving the gastrointestinal system. kc6 kc6 18:56 16:03 Derm: No signs and/or symptoms reported regarding the dermatologic system. Skin kc6 with poor turgor Skin is dry, Skin is normal, Skin temperature is warm kc6
[2023-11-24] MEDS ORDERED: FUROSEMIDE 40 MG/4 ML VIAL ONE (18:48)
[2023-11-24] MEDS ORDERED: ACETAMINOPHEN 500 MG TAB PO PRN (19:04)
[2023-11-24] MEDS: HOME MED 1 EA UNK (Bumetanide [Bumetanide] 2 MG Tablet) PO SCH (19:07)
[2023-11-24 20:14] VITALS: BMI 26.9
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
[2023-11-24] MEDS: GABAPENTIN 300 MG CAP PO SCH (21:36)
[2023-11-24] MEDS: APIXABAN 5 MG TABLET PO SCH (21:36)
[2023-11-24] MEDS: BUMETANIDE 1 MG/4 ML VIAL IV SCH (21:36)
[2023-11-25] MEDS ORDERED: FUROSEMIDE 40 MG/4 ML VIAL IV SCH (01:00)
[2023-11-25] MEDS: MORPHINE 2 MG/ML SYR IV PRN (04:23)
[2023-11-25 04:43] LABS: Absolute Eosinophils 0.2 K/uL (0-0.5); Absolute Lymphocytes (CBC) 1.5 K/uL (0.7-4.9); Absolute Monocytes 0.2 K/uL (0.1-1.3); Absolute Neutrophil 4.3 K/uL (1.8-8.0); Basophils % 0.7 % (0-1.3); Eosinophils % 3.5 % (0-4.4); Lymphocytes % 24.1 % (15.3-44.8); MCH 27.4 pg (27.0-35.0); MCHC 30.8 g/dL (32.0-36.0); MCV 88.9 fL (80-100); MPV 9.9 fL (7.6-11.3); Monocytes % 3.1 % (3.3-12.3); Neutrophils % 68.6 % (41.7-73.7); Nucleated Red Blood Cells % 0.2 % (0-0); Platelets 66 thou/uL (152-406); RBC Red Blood Cell Count 2.92 M/uL (3.86-4.86); Red Cell Distribution Width 14.6 % (12.1-15.2)
[2023-11-25 04:58] LABS: Albumin 1.9 g/dL (3.4-5.0); Albumin/Globulin Ratio 0.4 (1.1-1.8); Anion Gap 10.4 mEq/L (5.0-15.0); Bilirubin Total 0.4 mg/dL (0.2-1.0); Globulin 4.7 g/dL (2.3-3.5); Potassium 4.4 mEq/L (3.5-5.1); Protein, Total 6.6 g/dL (6.4-8.2)
[2023-11-25] MEDS: METOPROLOL TAR 50 MG TAB PO SCH (09:26)
[2023-11-25] MEDS: HYDRALAZINE HCL 25 MG TABLET PO SCH (09:26)
--- NOTE | 2023-11-25 12:08 | P.PN ---
Subjective Date of Service: 11/25/23 Chief Complaint: Congestive heart failure Pt is resting comfortably in bed. She reports good urine output. Currently getting bumex 2mg iv daily. Fluid balance is -880cc. No other complaints. Review of Systems General: Unremarkable Eyes: Unremarkable ENT: Unremarkable Respiratory: Unremarkable Cardiovascular: Edema Gastrointestinal: Unremarkable Genitourinary: Unremarkable Musculoskeletal: Other (left BKA) Integumentary: Unremarkable Neurological: Unremarkable Lymphatics: Unremarkable Physical Examination - Vital Signs Temperature: 97.9 F Blood Pressure: 114/50 Pulse: 60 Respirations: 12 Pulse Ox (%): 99 - Physical Exam General: Alert, In no apparent distress, Oriented x3 HEENT: Atraumatic, Normocephalic, PERRLA Neck: Supple, 2+ carotid pulse no bruit, JVD not distended Respiratory: Clear to auscultation bilaterally, Normal air movement Cardiovascular: No edema, Normal pulses, Regular rate/rhythm, Normal S1 S2 Capillary refill: <2 Seconds Gastrointestinal: Normal bowel sounds, Soft and benign, Non-distended Musculoskeletal: No clubbing, No swelling, No contractures Integumentary: No rashes, No breakdown, No significant lesion Neurological: Normal gait, Normal speech, Normal strength at 5/5 x4 extr Lymphatics: No axilla or inguinal lymphadenopathy - Studies Laboratory Data (last 24 hrs) 11/24/23 11/24/23 16:57 16:57 WBC 7.20 Hgb 8.6 L Hct 27.9 L Plt Count 78 L Sodium 138 Potassium 5.3 H BUN 64 H Creatinine 1.80 H Glucose 110 H Magnesium 2.2 Total Bilirubin 0.4 AST 41 H ALT 22 Alkaline Phosphatase 99 Assessment And Plan - Plan Acute diastolic [place] failure exacerbation: [place] [address]. Last Echo in June, shows EF 60 - 65%. Will continue bumex 2mg iv daily. fluid balance is - 880cc. Will f/u Echo. Pt does not respond to lasix. Normocytic anemia: Hgb is 8. Will monitor H/H. Transfuse when Hgb< 8. JUAREZ on CKD stage 3: Cr is 1.78. Will avoid nephrotoxins and monitor renal function. Sacral wound: Will continue wound care. Back pain: Continue prn percocet. DVT ppx: SCD Dispo: pending hospital course.
[2023-11-25] MEDS: Oxycodone HCl/Acetaminophen 5/325 MG TAB PO PRN ×2 (13:38→21:23)
[2023-11-26] MEDS: HYDROCODONE/APAP 10/325 TAB PO PRN (02:13)
--- NOTE | 2023-11-26 08:06 | P.PN ---
Date of Service: 11/26/23 Subjective Review of Systems 10 point review of system negative unless listed in HPI Physical Examination - Vital Signs Review - Physical Exam General: Alert, In no apparent distress, Oriented x3 HEENT: Atraumatic, Normocephalic, PERRLA Neck: Supple, 2+ carotid pulse no bruit, JVD not distended Respiratory: Clear to auscultation bilaterally, Normal air movement Cardiovascular: No edema, Normal pulses, Regular rate/rhythm, Normal S1 S2 Capillary refill: <2 Seconds Gastrointestinal: Normal bowel sounds, Soft and benign, Non-distended Musculoskeletal: No clubbing, No swelling, No contractures Integumentary: No rashes, No breakdown, No significant lesion Neurological: Normal gait, Normal speech, Normal strength at 5/5 x4 extr Lymphatics: No axilla or inguinal lymphadenopathy Assessment And Plan - Plan Acute on chronic diastolic heart failure exacerbation: Elevated BNP Atrial [place] [address]. Last Echo in June, shows EF 60 - 65%. Will continue bumex 2mg iv daily. fluid balance is -880cc. Will f/u Echo. Pt does not respond to lasix. cardilogy consult Diabetes type 2 We will monitor blood sugar ACHS and continue sliding scale insulin for glucose control. Normocytic anemia: Hgb is 8. Will monitor H/H. Transfuse when Hgb< 8. JUAREZ on CKD stage 3: Hyperkalemia improved Cr is 1.78. Will avoid nephrotoxins and monitor renal function. Nephrology consult if kidney function worsens Dr damon Decubitus ulcers: History of diabetic foot ulcer Will continue wound care. Pressure off loading lupus erythematosus Resume appropriate home Chronic back pain: Continue prn percocet. Fall precaution DVT ppx: SCD Dispo: pending hospital course. Prior [place] nursing <Alice Bartholomew - Last Filed: 11/26/23 07:54> Pt seen and examined. I agree with the note by the SENIOR CARE MANAGER. She is is diuresing well. Fluid balance is - 1260 cc since admission. Will monitor renal function and continue home meds for other chonic medical problems. <Yesi Mcnamara - Last Filed: 11/26/23 11:03>
[2023-11-26] MEDS: ONDANSETRON 4 MG/2 ML VIAL IV PRN (13:23)
--- NOTE | 2023-11-26 17:03 | EKG ---
Test Date: 2023-11-24 Test Time: 17:11:02 Chemical Laboratory Scientist: SALAS MEASUREMENT RESULTS: Intervals: Rate: 60 AK: QRSD: 146 QT: 492 QTc: 492 [place]: P: AK: QRS: 269 T: 25 INTERPRETIVE STATEMENTS: V paced rhythm Electronically Signed On 11-26-23 16:57:58 CDT by Serafin Viera
[2023-11-26] MEDS: Oxycodone HCl/Acetaminophen 5/325 MG TAB PO PRN (20:29)
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
--- NOTE | 2023-11-26 22:37 | CON ---
Date of Consultation: 11/26/2023 Reason For Consultation: Heart failure. History Of Present Illness: A 73-year-old female, history of heart failure, atrial fibrillation, on anticoagulation, hypertension, chronic kidney disease, dyslipidemia, diabetes, COPD, CVA, peripheral vascular disease, and [id number] amputation on the left, presented to the emergency room with wor sening shortness of breath, lower extremity edema, orthopnea. No nausea, vomiting, diarrhea, or diap horesis. Denies having any active chest pain. She gets however chest pain on and off and she does n ot move much due to the amputation. Lives at the assisted. At the present time, she feels antonio r lying flat. On echo, her right ventricular systolic pressure is above 100 mmHg. Past Medical History: As outlined above in HPI. Medications: Refer reconciliation sheet for detailed list. Allergies: ACYCLOVIR, FAMCICLOVIR, PROPAFENONE, AND VALACYCLOVIR. Family History: No premature coronary artery disease or cancer. Social History: Does not smoke or drink. Does not use any drugs. Review of Systems: All systems reviewed and they were negative except as mentioned in the HPI. Physical Examination: Vital Signs: Reviewed. Head and Neck: Pupils are equal, reactive to light. Intact eye movements. No cervical lymphadenopa thy. Positive JVD. Lungs: Decreased breathing sounds. Faint crackles. Heart: Regular rate and rhythm. No extra sounds with a systolic murmur. Abdomen: Soft, nontender. Bowel sounds positive. No organomegaly. No masses or hernia. No rigidi ty or rebound. Extremities: Trace edema on the right lower extremity. Left leg is status post amputation. Neurologic: Alert, awake, oriented. No new focal deficits appreciated. Lymph Nodes: No cervical or axillary lymphadenopathy. Investigations: Creatinine 1.78, BUN is 60, potassium is 4.4, and hemoglobin is 8. Assessment/recommendation: 1.Acute on chronic diastolic heart failure exacerbation by echo. She has severe restrictive diastol ic dysfunction. Agree with diuretics. Continue Bumex. Monitor BUN, creatinine, electrolytes, and l ow-salt diet. 2.Pulmonary hypertension, severe, right ventricular systolic pressure is above 100. Recommend left and right heart catheterization, which we will do it during this hospital stay before discharge. 3.Atrial fibrillation, rate is controlled on apixaban. Continue current management. 4.Hypertension. Blood pressure is controlled. SR/MODL Voice ID: [id number] Report ID: [id number]
--- NOTE | 2023-11-27 06:57 | P.PN ---
Date of Service: 11/27/23 Subjective stage 3 sacral ulcer, encourage pressure off loading, surgery consulted to eval Card following, planning cardiac cath prior to discharge Review of Systems 10 point review of system negative unless listed in HPI Physical Examination - Vital Signs Review - Physical Exam General: Alert, In no apparent distress, Oriented x3 bedrest HEENT: Atraumatic, Normocephalic, PERRLA Neck: Supple, 2+ carotid pulse no bruit, JVD not distended Respiratory: Diminished, normal air movement Cardiovascular: No edema, Normal pulses, Regular rate/rhythm, Normal S1 S2 Capillary refill: <2 Seconds Gastrointestinal: Normal bowel sounds, Soft and benign, Non-distended Musculoskeletal: No clubbing, left AKA, Integumentary: No rashes, stage III sacral ulcer, Neurological: Normal gait, Normal speech, Normal strength at 5/5 x4 extr Lymphatics: No axilla or inguinal lymphadenopathy Assessment And Plan - Plan Acute on chronic diastolic heart failure exacerbation: Elevated BNP [place]rial [place] [address]. Last Echo in June, shows EF 60 - 65%. Will continue bumex 2mg iv daily. fluid balance is -880cc. Will f/u Echo. Pt does not respond to lasix. cardilogy consult Diabetes type 2 We will monitor blood sugar ACHS and continue sliding scale insulin for glucose control. Normocytic anemia: Hgb is 8. Will monitor H/H. Transfuse when Hgb< 8. JUAREZ on CKD stage 3: Hyperkalemia improved Cr is 1.78. Will avoid nephrotoxins and monitor renal function. Nephrology consult Surgery consulted to if kidney function worsens Dr damon following Stage III sacral decubitus ulcers History of diabetic foot ulcer Will continue wound care. Pressure off loading Surgery consulted to eval lupus erythematosus Resume appropriate home Chronic back pain: Continue prn percocet. Fall precaution DVT ppx: SCD Dispo: pending hospital course. Prior [place] nursing <Alice Bartholomew - Last Filed: 11/27/23 13:30> Patient chart was reviewed and patient was seen and examined. JACOB history and physical reviewed as well. Agree with the assessment and plan. Patient presented with heart failure with preserved ejection fraction. Patient was diuresed and clinically doing better. Continue with anticoagulation monitor renal function closely. Patient also with stage III sacral decubitus ulcer will continue with wound care. Most of the MDM was done by myself and plan of care was discussed with JACOB as well as the patient. PEG tube will need to be replaced as well. Plan to discharge of the course of the next 3 to 4 days. <Uziel Jasmine - Last Filed: 11/28/23 03:56>
[2023-11-27 07:46] LABS: Absolute Eosinophils 0.3 K/uL (0-0.5); Absolute Lymphocytes (CBC) 1.8 K/uL (0.7-4.9); Absolute Monocytes 0.2 K/uL (0.1-1.3); Basophils % 0.7 % (0-1.3); Eosinophils % 4.5 % (0-4.4); Lymphocytes % 27.9 % (15.3-44.8); MCH 27.9 pg (27.0-35.0); MCHC 30.9 g/dL (32.0-36.0); MCV 90.3 fL (80-100); MPV 10.2 fL (7.6-11.3); Monocytes % 3.9 % (3.3-12.3); Nucleated Red Blood Cells % 0.2 % (0-0); Platelets 54 thou/uL (152-406); RBC Red Blood Cell Count 2.88 M/uL (3.86-4.86); Red Cell Distribution Width 14.7 % (12.1-15.2)
[2023-11-27 07:56] LABS: Anion Gap 5.6 mEq/L (5.0-15.0); Magnesium 1.9 mg/dL (1.6-2.4); Potassium 4.6 mEq/L (3.5-5.1)
[2023-11-27] MEDS: HYDRALAZINE HCL 25 MG TABLET PO SCH (08:56)
--- NOTE | 2023-11-27 10:04 | ECHO ---
HEIGHT: 5 ft 9 in WEIGHT: 182 lb 9.6 oz DATE OF STUDY: 11/26/[address]: Alice Bartholomew 2-DIMENSIONAL: YES M.MODE: YES DOPPLER: YES COLOR FLOW: YES TDS: PORTABLE: YES DEFINITY: BUBBLE STUDY: DIAGNOSIS: ELEVATED BNP CARDIAC HISTORY: CATHERIZATION: SURGERY: PROSTHETIC VALVE: PACEMAKER: MEASUREMENTS (cm) DIASTOLIC (NORMALS) SYSTOLIC (NORMALS) IVSd 1.1 (0.6-1.2) LA Diam 4.1 (1.9-4.0) LVEF 78% LVIDd 4.0 (3.5-5.7) LVIDs 2.2 (2.0-3.5) %FS 46% LVPWd 1.2 (0.6-1.2) Ao Diam 2.5 (2.0-3.7) 2 DIMENSIONAL ASSESSMENT: RIGHT ATRIUM: NORMAL LEFT ATRIUM: ENLARGED RIGHT VENTRICLE: MILDLY DILATED AND NORMAL FUNCTION LEFT VENTRICLE: LEFT VENTRICULAR HYPERTROPHY TRICUSPID VALVE: MODERATE TO SEVERE TRICUSPID REGURGITATION MITRAL VALVE: NORMAL PULMONIC VALVE: MILD PULMONIC INSUFFICIENCY AORTIC VALVE: CALCIFIED AORTIC VALVE, NO AORTIC STENOSIS PERICARDIAL EFFUSION: TRIVIAL AORTIC ROOT: NORMAL LEFT VENTRICULAR WALL MOTION: NORMAL DOPPLER/COLOR FLOW: SEE BELOW COMMENTS: 1. NORMAL LEFT VENTRICULAR EJECTION FRACTION GREATER THAN 60% WITH NORMAL WALL MOTION 2. LEFT ATRIAL ENLARGEMENT 3. MODERATE TO SEVERE TRICUSPID REGURGITATION 4. MILD AORTIC INSUFFICIENCY/ MITRAL REGURGITATION 5. SEVERE PULMONARY HYPERTENSION WITH RIGHT VENTRICULAR SYSTOLIC PRESSURE GREATER THAN 100 mmHg 6. SEVERE RESTRICTIVE DIASTOLIC DYSFUNCTION 7. MODERATE CONCENTRIC LEFT VENTRICULAR HYPERTROPHY TECHNOLOGIST: JASIEL LEOS [facility]
[2023-11-27] MEDS: JUVEN PACKET PO SCH (19:41)
--- NOTE | 2023-11-27 22:06 | P.PN ---
Date of Service: 11/27/23 Vital Signs Temp Pulse Resp BP Pulse Ox 98.0 F 63 20 112/57 L 94 11/27/23 16:00 11/27/23 16:00 11/27/23 21:28 11/27/23 16:00 11/27/23 21:28 Medications Acetaminophen (Acetaminophen 500 Mg Tab) 500 mg PO Q6H PRN PRN Reason: Pain scale 2-4 (Mild) Apixaban (Apixaban 5 Mg Tablet) 5 mg PO BID [facility] Last Admin: 11/27/23 19:41 Dose: 5 mg Gabapentin (Gabapentin 300 Mg Cap) 300 mg PO TID [facility] Last Admin: 11/27/23 19:41 Dose: 300 mg Hydralazine HCl (Hydralazine Hcl 25 Mg Tablet) 25 mg PO DAILY [facility] Last Admin: 11/27/23 08:56 Dose: 25 mg L-Arginine/L-Glutamine/HMB (Humble Packet) 1 pkt PO BID [facility] Last Admin: 11/27/23 19:41 Dose: 1 pkt Metoprolol Tartrate (Metoprolol Tar 50 Mg Tab) 50 mg PO DAILY [facility] Last Admin: 11/27/23 08:56 Dose: 50 mg Morphine Sulfate (Morphine 2 Mg/Ml Syr) 2 mg IV Q4H PRN PRN Reason: Breakthrough pain Last Admin: 11/27/23 21:28 Dose: 2 mg Ondansetron HCl (Ondansetron 4 Mg/2 Ml Vial) 4 mg IV Q8H PRN PRN Reason: NAUSEA / VOMITING Last Admin: 11/26/23 21:58 Dose: 4 mg Oxycodone/Acetaminophen (Oxycodone Hcl/Acetaminophen 5/325 Mg Tab) 2 tab PO Q8H PRN PRN Reason: Pain scale 8-10 (Severe) Last Admin: 11/27/23 19:41 Dose: 2 tab Assessment/ Plan: Nephrology No dyspnea No chest pain No acute events overnight Vitals, medications, blood work and imaging reviewed in the chart General: In no apparent distress, Oriented x3, Cooperative HEENT: Atraumatic Neck: Supple Respiratory: Normal air movement Cardiovascular: Regular rate/rhythm, Edema Gastrointestinal: Soft and benign, Non-distended Musculoskeletal: No clubbing, No contractures, Other (Left AKA) Integumentary: No rashes, No cyanosis, Pressure ulcer Neurological: Normal speech Story Light Blood work reviewed in the chart. Imagings Data: [id number] EXAM DESCRIPTION: RAD - Chest Single View - 11/24/2023 5:08 pm CLINICAL HISTORY: edema Chest pain. COMPARISON: <Comparisons> FINDINGS: Portable technique limits examination quality. Moderate pulmonary edema. The heart is significantly enlarged. No displaced fractures.Multi lead pacer device. IMPRESSION: Moderate CHF. [id number] LEFT VENTRICULAR WALL MOTION: NORMAL DOPPLER/COLOR FLOW: SEE BELOW. COMMENTS: 1. NORMAL LEFT VENTRICULAR EJECTION FRACTION 60-65% WITH NORMAL WALL MOTION. 2. MILD CONCENTRIC LEFT VENTRIUCLAR HYPERTROPHY. 3. DIASTOLIC DYSFUNCTION. 4. LEFT ATRIAL ENLARGEMENT. 5. MILD MITRAL, TRICUSPID, AORTIC AND PULMONARY REGURGITATION. 6. PULMONARY HYPERTENSION WITH RIGHT VENTRICULAR SYSTOLIC PRESSURE >60 mmHg. Conclusions/Impression: Stage I JUAREZ may be CRS complicated by hypotension and diuresis CKD III -No NSAIDs -Agree with holding diuretics at this time -Albumin IV X1 Hyperkalemia, improved Metabolic Acidosis, improved Diastolic CHF, A/C Pulmonary HTN -Daily weight -Follow up with cardiology Hypoalbuminemia -Recommend protein supplementation -Albumin IV X1 dose Anemia in chronic illness -Monitor H&H -Retacrit prn Case reviewed with Dr. Viera Hospitalist note reviewed
[2023-11-27] MEDS: ALBUMIN HUMAN 25% 200 ML IV ONE (22:07)
--- NOTE | 2023-11-28 06:18 | P.PN ---
Date of Service: 11/28/23 Subjective stage 3 sacral ulcer, encourage pressure off loading, surgery consulted to eval Card following, planning cardiac cath prior to discharge Review of Systems 10 point review of system negative unless listed in HPI Physical Examination - Vital Signs Review - Physical Exam General: Alert, In no apparent distress, Oriented x3 bedrest HEENT: Atraumatic, Normocephalic, PERRLA Neck: Supple, 2+ carotid pulse no bruit, JVD not distended Respiratory: Diminished, normal air movement Cardiovascular: No edema, Normal pulses, Regular rate/rhythm, Normal S1 S2 Capillary refill: <2 Seconds Gastrointestinal: Normal bowel sounds, colostomy, PEG tube, Musculoskeletal: No clubbing, left AKA, Integumentary: No rashes, stage III sacral ulcer, Neurological: Normal gait, Normal speech, Normal strength at 5/5 x4 extr Lymphatics: No axilla or inguinal lymphadenopathy Assessment And Plan - Plan Acute on chronic diastolic heart failure exacerbation: Elevated BNP Atrial [place] [address]. Last Echo in June, shows EF 60 - 65%. Will continue bumex 2mg iv daily. fluid balance is -880cc. Will f/u Echo. Pt does not respond to lasix. cardilogy consult Colostomy PEG tube Surgery following to remove PEG tube while inpatient this visit patient is tolerating p.o. diet Diabetes type 2 We will monitor blood sugar ACHS and continue sliding scale insulin for glucose control. Normocytic anemia: Hgb is 8. Will monitor H/H. Transfuse when Hgb< 8. JUAREZ on CKD stage 3: Hyperkalemia improved Cr is 1.78. Will avoid nephrotoxins and monitor renal function. Nephrology consult Surgery consulted to if kidney function worsens Dr damon following Stage III sacral decubitus ulcers History of diabetic foot ulcer Will continue wound care. Pressure off loading Surgery consulted to eval lupus erythematosus Resume appropriate home Chronic back pain: Continue prn percocet. Fall precaution DVT ppx: SCD Dispo: pending hospital course. Prior [place] nursing <Alice Bartholomew - Last Filed: 12/02/23 15:03> Patient was seen and examined. Events of the last 24 hours have been noted. Spoke with with JACOB regarding patient's clinical picture after evaluating and examining the patient independently. I performed a substantial part of the MDM during this patient's care today. I personally made or approved the documented management plan and acknowledge its risk of complications. I agree with the findings and documentation provided in the JACOB's notes. Patient presented with fluid overload and AFib with RVR. Patient was diuresed and patient's rate is controlled. Continue with diuresing patient at this time and rate control. Patient was given anticoagulation; however, hemoglobin is decreasing. Will continue to monitor. Patient with a large sacral decubitus ulcer-stage III. Cardiology has seen the patient and possible intervention as well. <Uziel Jasmine - Last Filed: 12/03/23 04:27>
[2023-11-28 06:52] LABS: Magnesium 1.9 mg/dL (1.6-2.4)
[2023-11-28 07:22] LABS: Absolute Eosinophils 0.2 K/uL (0-0.5); Absolute Lymphocytes (CBC) 1.6 K/uL (0.7-4.9); Absolute Monocytes 0.2 K/uL (0.1-1.3); Absolute Neutrophil 3.7 K/uL (1.8-8.0); Basophils % 0.7 % (0-1.3); Eosinophils % 4.3 % (0-4.4); Hemoglobin 7.4 g/dL (12.0-15.0); MCH 27.6 pg (27.0-35.0); MCHC 30.8 g/dL (32.0-36.0); MCV 89.7 fL (80-100); MPV 9.7 fL (7.6-11.3); Platelets 43 thou/uL (152-406); RBC Red Blood Cell Count 2.68 M/uL (3.86-4.86); Red Cell Distribution Width 14.3 % (12.1-15.2)
[2023-11-28 08:03] LABS: Blood Morphology Comment NOTED (NOT SEEN); Hypochromasia 2+; Platelet Estimate DECR; White Blood Cell Scan OK (OK)
--- NOTE | 2023-11-28 13:44 | P.CNS ---
Date of Consult: 11/28/23 PC: I was asked to see this patient in regards to a redundant feeding tube. HPC: This patient, who has had strokes in the past and was unable to eat a few months ago and had greatly increased the loss of weight has improved markedly over the last few months. She is in a snf and apparently tolerated tube feeds quite well. She has transition to an oral intake and is able to sustain on her own. She is no longer want the feeding tube, as it is causing her pain and discomfort. PSHx: Previous amputations, diabetic wounds PMHx: Previous strokes, diabetes, Social Hx: Allergies as listed Sys R: No cough, wheeze, shortness of breath. Says she has been good formed, mentally sound. Able to tolerate diet on her own. Keep yourself hydrated. She has had a snf which she enjoys. O/E: Awake alert vital signs are stable HEENT: No jaundice Chest: Air entry equal bilaterally Abd: G-tube in place, some mild granulation tissue and irritation around the insertion site [place]: Intact Data: NAD Impression: This patient has redundant feeding tube, she wants it out. Plan: I have explained to her the procedure, that we will put traction on it and the tube will pop out. It will probably drain thanks 24 to 48 hours. She understands this and wants us to proceed. She wants it out
[2023-11-28] MEDS: DONEPEZIL HCL 5 MG TAB PO SCH (20:24)
[2023-11-28] MEDS: ZOLPIDEM TARTRATE 10 MG TABLET PO SCH (20:24)
--- NOTE | 2023-11-28 21:22 | P.PN ---
Date of Service: 11/28/23 Vital Signs Temp Pulse Resp BP Pulse Ox 99.0 F 63 18 107/57 L 100 11/28/23 16:00 11/28/23 16:00 11/28/23 20:24 11/28/23 16:00 11/28/23 20:24 Medications Acetaminophen (Acetaminophen 500 Mg Tab) 500 mg PO Q6H PRN PRN Reason: Pain scale 2-4 (Mild) Apixaban (Apixaban 5 Mg Tablet) 5 mg PO BID [facility] Last Admin: 11/28/23 19:28 Dose: 5 mg Donepezil HCl (Donepezil Hcl 5 Mg Tab) 10 mg PO BEDTIME [facility] Last Admin: 11/28/23 20:24 Dose: 10 mg Gabapentin (Gabapentin 300 Mg Cap) 300 mg PO TID [facility] Last Admin: 11/28/23 19:28 Dose: 300 mg Hydralazine HCl (Hydralazine Hcl 25 Mg Tablet) 25 mg PO DAILY [facility] Last Admin: 11/28/23 08:38 Dose: 25 mg L-Arginine/L-Glutamine/HMB (Humble Packet) 1 pkt PO BID [facility] Last Admin: 11/28/23 19:28 Dose: 1 pkt Metoprolol Tartrate (Metoprolol Tar 50 Mg Tab) 50 mg PO DAILY [facility] Last Admin: 11/28/23 08:38 Dose: 50 mg Morphine Sulfate (Morphine 2 Mg/Ml Syr) 2 mg IV Q4H PRN PRN Reason: Breakthrough pain Last Admin: 11/28/23 19:28 Dose: 2 mg Ondansetron HCl (Ondansetron 4 Mg/2 Ml Vial) 4 mg IV Q8H PRN PRN Reason: NAUSEA / VOMITING Last Admin: 11/28/23 19:28 Dose: 4 mg Oxycodone/Acetaminophen (Oxycodone Hcl/Acetaminophen 5/325 Mg Tab) 2 tab PO Q8H PRN PRN Reason: Pain scale 8-10 (Severe) Last Admin: 11/28/23 20:24 Dose: 2 tab Zolpidem Tartrate (Zolpidem Tartrate 10 Mg Tablet) 10 mg PO BEDTIME [facility] Last Admin: 11/28/23 20:24 Dose: 10 mg Assessment/ Plan: Nephrology No dyspnea No chest pain No acute events overnight Vitals, medications, blood work and imaging reviewed in the chart General: In no apparent distress, Oriented x3, Cooperative HEENT: Atraumatic Neck: Supple Respiratory: Normal air movement Cardiovascular: Regular rate/rhythm, Edema Gastrointestinal: Soft and benign, Non-distended Musculoskeletal: No clubbing, No contractures, Other (Left AKA) Integumentary: No rashes, No cyanosis, Pressure ulcer Neurological: Normal speech Story Light Blood work reviewed in the chart. Imagings Data: EXAM DESCRIPTION: RAD - Chest Single View - 11/24/2023 5:08 pm CLINICAL HISTORY: edema Chest pain. COMPARISON: <Comparisons> FINDINGS: Portable technique limits examination quality. Moderate pulmonary edema. The heart is significantly enlarged. No displaced fractures.Multi lead pacer device. IMPRESSION: Moderate CHF. LEFT VENTRICULAR WALL MOTION: NORMAL DOPPLER/COLOR FLOW: SEE BELOW. COMMENTS: 1. NORMAL LEFT VENTRICULAR EJECTION FRACTION 60-65% WITH NORMAL WALL MOTION. 2. MILD CONCENTRIC LEFT VENTRIUCLAR HYPERTROPHY. 3. DIASTOLIC DYSFUNCTION. 4. LEFT ATRIAL ENLARGEMENT. 5. MILD MITRAL, TRICUSPID, AORTIC AND PULMONARY REGURGITATION. 6. PULMONARY HYPERTENSION WITH RIGHT VENTRICULAR SYSTOLIC PRESSURE >60 mmHg. Conclusions/Impression: Stage I JUAREZ may be CRS complicated by hypotension and diuresis CKD III -No NSAIDs Hyperkalemia, improved Metabolic Acidosis, improved Diastolic CHF, A/C Pulmonary HTN -Daily weight -Follow up with cardiology Hypoalbuminemia -Recommend protein supplementation Anemia in chronic illness -Monitor H&H -Retacrit prn Hospitalist & Surgery notes reviewed Plan to remove PEG
--- NOTE | 2023-11-29 06:21 | P.PN ---
Date of Service: 11/29/23 Subjective stage 3 sacral ulcer, encourage pressure off loading, surgery consulted to eval Card following, planning cardiac cath prior to discharge Review of Systems 10 point review of system negative unless listed in HPI Physical Examination - Vital Signs Review - Physical Exam General: Alert, In no apparent distress, Oriented x3 bedrest HEENT: Atraumatic, Normocephalic, PERRLA Neck: Supple, 2+ carotid pulse no bruit, JVD not distended Respiratory: Diminished, normal air movement Cardiovascular: No edema, Normal pulses, Regular rate/rhythm, Normal S1 S2 Capillary refill: <2 Seconds Gastrointestinal: Normal bowel sounds, Soft and benign, Non-distended Musculoskeletal: No clubbing, left AKA, Integumentary: No rashes, stage III sacral ulcer, Neurological: Normal gait, Normal speech, Normal strength at 5/5 x4 extr Lymphatics: No axilla or inguinal lymphadenopathy Assessment And Plan - Plan Acute on chronic diastolic heart failure exacerbation: Elevated BNP Atrial [place] [address]. Last Echo in June, shows EF 60 - 65%. Will continue bumex 2mg iv daily. fluid balance is -880cc. Will f/u Echo. Pt does not respond to lasix. cardilogy consult Diabetes type 2 We will monitor blood sugar ACHS and continue sliding scale insulin for glucose control. Normocytic anemia: Hgb is 8. Will monitor H/H. Transfuse when Hgb< 8. JUAREZ on CKD stage 3: Hyperkalemia improved Cr is 1.78. Will avoid nephrotoxins and monitor renal function. Nephrology consult Surgery consulted to if kidney function worsens Dr damon following Stage III sacral decubitus ulcers History of diabetic foot ulcer Will continue wound care. Pressure off loading Surgery consulted to eval lupus erythematosus Resume appropriate home Chronic back pain: Continue prn percocet. Fall precaution DVT ppx: SCD Dispo: pending hospital course. Prior [facility] <Alice aBrtholomew - Last Filed: 12/02/23 15:01> Subjective stage 3 sacral ulcer, encourage pressure off loading, surgery consulted to eval Card following, planning cardiac cath prior to discharge Review of Systems 10 point review of system negative unless listed in HPI Physical Examination - Vital Signs Review - Physical Exam General: Alert, In no apparent distress, Oriented x3 bedrest HEENT: Atraumatic, Normocephalic, PERRLA Neck: Supple, 2+ carotid pulse no bruit, JVD not distended Respiratory: Diminished, normal air movement Cardiovascular: No edema, Normal pulses, Regular rate/rhythm, Normal S1 S2 Capillary refill: <2 Seconds Gastrointestinal: Normal bowel sounds, colostomy, PEG tube, Musculoskeletal: No clubbing, left AKA, Integumentary: No rashes, stage III sacral ulcer, Neurological: Normal gait, Normal speech, Normal strength at 5/5 x4 extr Lymphatics: No axilla or inguinal lymphadenopathy Assessment And Plan - Plan Acute on chronic diastolic heart failure exacerbation: Elevated BNP Atrial [place] [address]. Last Echo in June, shows EF 60 - 65%. Will continue bumex 2mg iv daily. fluid balance is -880cc. Will f/u Echo. Pt does not respond to lasix. cardilogy consult Colostomy PEG tube Surgery following to remove PEG tube while inpatient this visit patient is tolerating p.o. diet Diabetes type 2 We will monitor blood sugar ACHS and continue sliding scale insulin for glucose control. Normocytic anemia: Hgb is 8. Will monitor H/H. Transfuse when Hgb< 8. JUAREZ on CKD stage 3: Hyperkalemia improved Cr is 1.78. Will avoid nephrotoxins and monitor renal function. Nephrology consult Surgery consulted to if kidney function worsens Dr damon following Stage III sacral decubitus ulcers History of diabetic foot ulcer Will continue wound care. Pressure off loading Surgery consulted to eval lupus erythematosus Resume appropriate home Chronic back pain: Continue prn percocet. Fall precaution DVT ppx: SCD Dispo: pending hospital course. Prior [facility] <Alice Bartholomew - Last Filed: 12/02/23 15:03> Patient was seen and examined. Events of the last 24 hours have been noted. Spoke with with JACOB regarding patient's clinical picture after evaluating and examining the patient independently. I performed a substantial part of the MDM during this patient's care today. I personally made or approved the documented management plan and acknowledge its risk of complications. I agree with the findings and documentation provided in the JACOB's notes. Patient presented with fluid overload and AFib with RVR. Patient was diuresed and patient's rate is controlled. Continue with diuresing patient at this time and rate control. Patient was given anticoagulation; however, hemoglobin is decreasing. Will continue to monitor. Plan to transfuse 1-2 units of packed red blood cells. Patient with a large sacral decubitus ulcer-stage III. Cardiology has seen the patient and possible intervention as well. <Uziel Jasmine - Last Filed: 12/03/23 04:27> <Uziel Jasmine - Last Filed: 12/03/23 04:28>
[2023-11-29 07:47] LABS: Absolute Eosinophils 0.2 K/uL (0-0.5); Absolute Lymphocytes (CBC) 1.7 K/uL (0.7-4.9); Absolute Monocytes 0.3 K/uL (0.1-1.3); Absolute Neutrophil 3.4 K/uL (1.8-8.0); Basophils % 0.9 % (0-1.3); Eosinophils % 3.9 % (0-4.4); Hematocrit 22.3 % (36.0-45.0); Hemoglobin 6.9 g/dL (12.0-15.0); Lymphocytes % 30.1 % (15.3-44.8); MCH 27.7 pg (27.0-35.0); MCHC 30.8 g/dL (32.0-36.0); MPV 10.3 fL (7.6-11.3); Monocytes % 5.8 % (3.3-12.3); Neutrophils % 59.3 % (41.7-73.7); Nucleated Red Blood Cells % 0.1 % (0-0); Platelets 39 thou/uL (152-406); RBC Red Blood Cell Count 2.48 M/uL (3.86-4.86); Red Cell Distribution Width 14.8 % (12.1-15.2)
[2023-11-29 08:04] LABS: Anion Gap 10.4 mEq/L (5.0-15.0); Magnesium 1.9 mg/dL (1.6-2.4); Potassium 4.4 mEq/L (3.5-5.1)
[2023-11-29 08:18] LABS: Percent Reticulocyte Count 0.4 % (0.4-2.05); RBC Red Blood Cell Count 2.53 M/uL (3.86-4.86)
[2023-11-29] MEDS: NA CHLORIDE 0.9% 250 ML ONE (11:46)
--- NOTE | 2023-11-29 21:49 | PN ---
Date of Progress Note: 11/29/2023 Subjective: Seen by bedside. She is breathing okay. No significant shortness of breath. Review of Systems: No chest pain. She has shortness of breath on exertion. No nausea, vomiting, diarrhea. No abdomina l pain. No dysuria, polyuria, or urgency. All other systems reviewed are negative. Physical Examination: Vital Signs: Reviewed. Head and Neck: Pupils are equal, reactive to light. Intact eye movements. No JVD. No cervical lym phadenopathy. Neck is supple. Thyroid is not enlarged. Lungs: Decreased breathing sounds. No accessory muscle use or muscle retraction. Heart: Regular. No extra sounds. Abdomen: Soft, nontender. Bowel sounds positive. No organomegaly. No masses or hernia. No rigidi ty or rebound. Extremities: No clubbing, cyanosis. Intact pulses. Skin: No rash. Neurologic: Alert, awake, oriented x3. No acute focal deficits appreciated. Investigation: Labs were reviewed. Assessment/recommendations: 1.Severe pulmonary hypertension. Likely, there is an arterial component to it and the patient does have a diastolic heart failure that is severe, but she does not seem to be fluid overloaded. Hold al l diuretics and schedule right heart catheterization tomorrow to calculate the pulmonary vascular res istance and I recommend to consult Pulmonary to further assist in management of pulmonary hypertensio n. 2.Diastolic heart failure. Appears to be euvolemic. Keep diuretics on hold due to the acute renal failure. 3.Acute renal failure due to overdiuresis. Diuretics have been held for the past 2 days and [facility] lopez is on board. We will reintroduce diuretics when the kidney function improves further. 4.Atrial fibrillation. Obviously, she is not a candidate for anticoagulation due to severe anemia, but heart rate is controlled. Continue current management. SR/MODL Voice ID: [id number] Report ID: [id number]
--- NOTE | 2023-11-29 22:03 | P.PN ---
Date of Service: 11/29/23 Vital Signs Temp Pulse Resp BP Pulse Ox 97.1 F 60 16 114/55 L 100 11/29/23 20:00 11/29/23 20:00 11/29/23 20:00 11/29/23 20:00 11/29/23 20:00 Medications Acetaminophen (Acetaminophen 500 Mg Tab) 500 mg PO Q6H PRN PRN Reason: Pain scale 2-4 (Mild) Apixaban (Apixaban 5 Mg Tablet) 5 mg PO BID [facility] Last Admin: 11/29/23 19:27 Dose: Not Given Donepezil HCl (Donepezil Hcl 5 Mg Tab) 10 mg PO BEDTIME [facility] Last Admin: 11/29/23 21:55 Dose: 10 mg Gabapentin (Gabapentin 300 Mg Cap) 300 mg PO TID [facility] Last Admin: 11/29/23 21:55 Dose: 300 mg Hydralazine HCl (Hydralazine Hcl 25 Mg Tablet) 25 mg PO DAILY [facility] Last Admin: 11/29/23 09:00 Dose: Not Given L-Arginine/L-Glutamine/HMB (Humble Packet) 1 pkt PO BID [facility] Last Admin: 11/29/23 21:00 Dose: 1 pkt Metoprolol Tartrate (Metoprolol Tar 50 Mg Tab) 50 mg PO DAILY [facility] Last Admin: 11/29/23 08:43 Dose: 50 mg Morphine Sulfate (Morphine 2 Mg/Ml Syr) 2 mg IV Q4H PRN PRN Reason: Breakthrough pain Last Admin: 11/29/23 17:07 Dose: 2 mg Ondansetron HCl (Ondansetron 4 Mg/2 Ml Vial) 4 mg IV Q8H PRN PRN Reason: NAUSEA / VOMITING Last Admin: 11/28/23 19:28 Dose: 4 mg Oxycodone/Acetaminophen (Oxycodone Hcl/Acetaminophen 5/325 Mg Tab) 2 tab PO Q8H PRN PRN Reason: Pain scale 8-10 (Severe) Last Admin: 11/29/23 04:56 Dose: 2 tab Zolpidem Tartrate (Zolpidem Tartrate 10 Mg Tablet) 10 mg PO BEDTIME [facility] Last Admin: 11/29/23 21:55 Dose: 10 mg Assessment/ Plan: Nephrology No dyspnea No chest pain No acute events overnight Vitals, medications, blood work and imaging reviewed in the chart General: In no apparent distress, Oriented x3, Cooperative HEENT: Atraumatic Neck: Supple Respiratory: Normal air movement Cardiovascular: Regular rate/rhythm, Edema Gastrointestinal: Soft and benign, Non-distended Musculoskeletal: No clubbing, No contractures, Other (Left AKA) Integumentary: No rashes, No cyanosis, Pressure ulcer Neurological: Normal speech Story Light Blood work reviewed in the chart. Imagings Data: EXAM DESCRIPTION: RAD - Chest Single View - 11/24/2023 5:08 pm CLINICAL HISTORY: edema Chest pain. COMPARISON: <Comparisons> FINDINGS: Portable technique limits examination quality. Moderate pulmonary edema. The heart is significantly enlarged. No displaced fractures.Multi lead pacer device. IMPRESSION: Moderate CHF. LEFT VENTRICULAR WALL MOTION: NORMAL DOPPLER/COLOR FLOW: SEE BELOW. COMMENTS: 1. NORMAL LEFT VENTRICULAR EJECTION FRACTION 60-65% WITH NORMAL WALL MOTION. 2. MILD CONCENTRIC LEFT VENTRIUCLAR HYPERTROPHY. 3. DIASTOLIC DYSFUNCTION. 4. LEFT ATRIAL ENLARGEMENT. 5. MILD MITRAL, TRICUSPID, AORTIC AND PULMONARY REGURGITATION. 6. PULMONARY HYPERTENSION WITH RIGHT VENTRICULAR SYSTOLIC PRESSURE >60 mmHg. Conclusions/Impression: Stage I JUAREZ may be CRS complicated by hypotension and diuresis CKD III -No NSAIDs Hyperkalemia, improved Metabolic Acidosis, improved Diastolic CHF, A/C Pulmonary HTN -Daily weight -Follow up with cardiology Hypoalbuminemia -Recommend protein supplementation Anemia in chronic illness -Monitor H&H -Retacrit prn -Agree with [facility] Hospitalist note reviewed
[2023-11-30 06:15] LABS: Hemoglobin 6.9 g/dL (12.0-15.0)
--- NOTE | 2023-11-30 06:23 | P.DS ---
Admission Date: 11/24/23 Discharge Date: 11/30/23 Disposition: TRANSFER TO DETENTION Reason for Admission: Congestive heart failure Brief History of Present Illness: Patient is 73 years of age with a history of congestive heart failure lives at [facility] admitted with worsening dyspnea and lower extremity edema for the past 2 to 3 weeks relatives present at the bedside currently she responds better to Bumex than Lasix they were giving her Lasix in the [facility] patient denies any smoking history has some decubitus ulcers patient to chronic renal insufficiency denies any fever or chills - Physical Exam General: Alert, In no apparent distress, Oriented x3 bedrest HEENT: Atraumatic, Normocephalic, PERRLA Neck: Supple, 2+ carotid pulse no bruit, JVD not distended Respiratory: Diminished, normal air movement Cardiovascular: No edema, Normal pulses, Regular rate/rhythm, Normal S1 S2 Capillary refill: <2 Seconds Gastrointestinal: Normal bowel sounds, Soft and benign, Non-distended Musculoskeletal: No clubbing, left AKA, Integumentary: No rashes, stage III sacral ulcer, Neurological: Normal gait, Normal speech, Normal strength at 5/5 x4 extr Lymphatics: No axilla or inguinal lymphadenopathy Hospital Course: Acute on chronic diastolic heart failure exacerbation: Elevated BNP Atrial [place] [address]. Last Echo in June, shows EF 60 - 65%. Will continue bumex 2mg iv daily. fluid balance is -880cc. Will f/u Echo. Pt does not respond to lasix. cardilogy consult Diabetes type 2 We will monitor blood sugar ACHS and continue sliding scale insulin for glucose control. Normocytic anemia: Hgb is 8. Will monitor H/H. Transfuse when Hgb< 8. JUAREZ on CKD stage 3: Hyperkalemia improved Cr is 1.78. Will avoid nephrotoxins and monitor renal function. Nephrology consult Surgery consulted to if kidney function worsens Dr damon following Stage III sacral decubitus ulcers History of diabetic foot ulcer Will continue wound care. Pressure off loading Surgery consulted to eval lupus erythematosus Resume appropriate home Chronic back pain: Continue prn percocet. Fall precaution DVT ppx: SCD Dispo: pending hospital course. Prior [facility] nursing Vital Signs/Physical Exam: Temp Pulse Resp BP Pulse Ox 97.6 F 56 16 109/49 L 99 11/30/23 04:00 11/30/23 04:00 11/30/23 04:00 11/30/23 04:00 11/30/23 04:00 Laboratory Data at Discharge: WBC 5.80 thou/uL (4.3-10.9) 11/29/23 07:30 Hgb 6.9 g/dL (12.0-15.0) L 11/30/23 05:29 Hct 22.0 % (36.0-45.0) L 11/30/23 05:29 Plt Count 39 thou/uL (152-406) L 11/29/23 07:30 Sodium 139 mEq/L (136-145) 11/29/23 07:30 Potassium 4.4 mEq/L (3.5-5.1) 11/29/23 07:30 BUN 92 mg/dL (7-18) H 11/29/23 07:30 Creatinine 2.19 mg/dL (0.55-1.02) H 11/29/23 07:30 Glucose 117 mg/dL (74-106) H 11/29/23 07:30 Magnesium 1.9 mg/dL (1.6-2.4) 11/29/23 07:30 Total Bilirubin 0.4 mg/dL (0.2-1.0) 11/25/23 04:22 AST 19 U/L (15-37) 11/25/23 04:22 ALT 19 U/L (13-56) 11/25/23 04:22 Alkaline Phosphatase 81 U/L (45-117) 11/25/23 04:22 Home Medications: Apixaban [Eliquis] 2.5 mg PO BID 02/07/23 Gabapentin 300 mg PO TID 02/07/23 Hydralazine [Apresoline*] 25 mg PO DAILY 02/07/23 Hydroxychloroquine [Plaquenil*] 200 mg PO DAILY 02/07/23 Donepezil [Aricept*] 10 mg PO BEDTIME tab 06/28/23 Hydrocodone 10/APAP 325 [[place] 10/325*] 1 tab PO Q6H PRN tab 06/28/23 Atorvastatin Calcium [Lipitor*] 10 mg PO BEDTIME 07/01/23 Docusate Sodium [Stool Softener] 100 mg PO BID 07/01/23 Omeprazole 20 mg PO DAILY 07/01/23 Acetaminophen [Tylenol Extra Strength] 2 tab PO Q8H PRN 11/25/23 Ascorbic Acid 1 tab PO DAILY 11/25/23 Bumetanide [Bumex*] 1 tab PO BID 11/25/23 Diphenhydramine [Benadryl*] 1 tab PO DAILY PRN 11/25/23 Duloxetine HCl 1 tab PO DAILY 11/25/23 Furosemide [Lasix] 1 tab PO DAILY 11/25/23 Ipratropium/Albuterol Sulfate [Iprat-Albut 0.5-3(2.5) mg/3 ml] 3 ml IH Q8H PRN 11/25/23 Metoprolol Succinate 1 tab PO DAILY 11/25/23 Oxycodone HCl/Acetaminophen [Percocet 10-325 mg Tablet] 1 tab PO Q8H 11/25/23 Potassium Chloride 1 tab PO DAILY 11/25/23 Zinc Sulfate [Zinc Sulfate*] 1 cap PO DAILY 11/25/23 Zolpidem Tartrate [Ambien*] 1 tab PO BEDTIME 11/25/23 Physician Discharge Instructions: resident at: [address] [address] P:[phone]/ F:[phone] Followup: Janneth Quiroga MD [Primary Care Provider] -
[2023-11-30 06:41] LABS: Anion Gap 11.7 mEq/L (5.0-15.0); Magnesium 1.7 mg/dL (1.6-2.4); Potassium 4.7 mEq/L (3.5-5.1)
[2023-11-30] MEDS: NA CHLORIDE 0.9% 250 ML ONE (11:31)
[2023-11-30 18:48] LABS: Hematocrit 28.3 % (36.0-45.0); Hemoglobin 8.9 g/dL (12.0-15.0)
[2023-11-30 21:38] LABS: PT Prothrombin Time 20.4 SECONDS (9.4-12.5); PTT, Activated Partial Thromb 33.6 SECONDS (24.3-36.9); Protime INR 1.85
--- NOTE | 2023-11-30 21:44 | P.PN ---
Date of Service: 11/30/23 Vital Signs Temp Pulse Resp BP Pulse Ox 97.9 F 60 17 115/51 L 98 11/30/23 20:00 11/30/23 20:00 11/30/23 20:59 11/30/23 20:00 11/30/23 20:59 Medications Acetaminophen (Acetaminophen 500 Mg Tab) 500 mg PO Q6H PRN PRN Reason: Pain scale 2-4 (Mild) Apixaban (Apixaban 5 Mg Tablet) 5 mg PO BID [facility] Last Admin: 11/30/23 21:00 Dose: Not Given Donepezil HCl (Donepezil Hcl 5 Mg Tab) 10 mg PO BEDTIME [facility] Last Admin: 11/30/23 20:59 Dose: 10 mg Gabapentin (Gabapentin 300 Mg Cap) 300 mg PO TID [facility] Last Admin: 11/30/23 20:59 Dose: 300 mg Hydralazine HCl (Hydralazine Hcl 25 Mg Tablet) 25 mg PO DAILY [facility] Last Admin: 11/30/23 08:58 Dose: Not Given L-Arginine/L-Glutamine/HMB (Humble Packet) 1 pkt PO BID [facility] Last Admin: 11/30/23 21:00 Dose: 1 pkt Metoprolol Tartrate (Metoprolol Tar 50 Mg Tab) 50 mg PO DAILY [facility] Last Admin: 11/30/23 08:58 Dose: Not Given Morphine Sulfate (Morphine 2 Mg/Ml Syr) 2 mg IV Q4H PRN PRN Reason: Breakthrough pain Last Admin: 11/30/23 18:02 Dose: 2 mg Ondansetron HCl (Ondansetron 4 Mg/2 Ml Vial) 4 mg IV Q8H PRN PRN Reason: NAUSEA / VOMITING Last Admin: 11/28/23 19:28 Dose: 4 mg Oxycodone/Acetaminophen (Oxycodone Hcl/Acetaminophen 5/325 Mg Tab) 2 tab PO Q8H PRN PRN Reason: Pain scale 8-10 (Severe) Last Admin: 11/30/23 20:59 Dose: 2 tab Zolpidem Tartrate (Zolpidem Tartrate 10 Mg Tablet) 10 mg PO BEDTIME [facility] Last Admin: 11/30/23 20:58 Dose: 10 mg Assessment/ Plan: Nephrology No dyspnea No chest pain No acute events overnight Vitals, medications, blood work and imaging reviewed in the chart General: In no apparent distress, Oriented x3, Cooperative HEENT: Atraumatic Neck: Supple Respiratory: Normal air movement Cardiovascular: Regular rate/rhythm, Edema Gastrointestinal: Soft and benign, Non-distended Musculoskeletal: No clubbing, No contractures, Other (Left AKA) Integumentary: No rashes, No cyanosis, Pressure ulcer Neurological: Normal speech Story Light Blood work reviewed in the chart. Imagings Data: EXAM DESCRIPTION: RAD - Chest Single View - 11/24/2023 5:08 pm CLINICAL HISTORY: edema Chest pain. COMPARISON: <Comparisons> FINDINGS: Portable technique limits examination quality. Moderate pulmonary edema. The heart is significantly enlarged. No displaced fractures.Multi lead pacer device. IMPRESSION: Moderate CHF. LEFT VENTRICULAR WALL MOTION: NORMAL DOPPLER/COLOR FLOW: SEE BELOW. COMMENTS: 1. NORMAL LEFT VENTRICULAR EJECTION FRACTION 60-65% WITH NORMAL WALL MOTION. 2. MILD CONCENTRIC LEFT VENTRIUCLAR HYPERTROPHY. 3. DIASTOLIC DYSFUNCTION. 4. LEFT ATRIAL ENLARGEMENT. 5. MILD MITRAL, TRICUSPID, AORTIC AND PULMONARY REGURGITATION. 6. PULMONARY HYPERTENSION WITH RIGHT VENTRICULAR SYSTOLIC PRESSURE >60 mmHg. Conclusions/Impression: Stage I JUAREZ may be CRS complicated by hypotension and diuresis CKD III -No NSAIDs Hyperkalemia, improved Metabolic Acidosis, improved Diastolic CHF, A/C Pulmonary HTN -Daily weight -Follow up with cardiology Hypoalbuminemia -Recommend protein supplementation Anemia in chronic illness -Monitor H&H -Retacrit prn -Agree with PRBC Hospitalist note reviewed
[2023-12-01] MEDS: NA CHLORIDE 0.9% 250 ML ONE ×2 (00:43→14:49)
[2023-12-01 11:41] LABS: Absolute Eosinophils 0.2 K/uL (0-0.5); Absolute Lymphocytes (CBC) 1.6 K/uL (0.7-4.9); Absolute Monocytes 0.6 K/uL (0.1-1.3); Absolute Neutrophil 2.8 K/uL (1.8-8.0); Basophils % 0.8 % (0-1.3); Eosinophils % 4.2 % (0-4.4); Hematocrit 22.8 % (36.0-45.0); Hemoglobin 7.2 g/dL (12.0-15.0); Lymphocytes % 30.1 % (15.3-44.8); MCH 27.6 pg (27.0-35.0); MCHC 31.5 g/dL (32.0-36.0); MCV 87.6 fL (80-100); MPV 9.6 fL (7.6-11.3); Monocytes % 12.1 % (3.3-12.3); Neutrophils % 52.8 % (41.7-73.7); Nucleated Red Blood Cells % 0.1 % (0-0); Platelets 55 thou/uL (152-406); RBC Red Blood Cell Count 2.61 M/uL (3.86-4.86); Red Cell Distribution Width 14.8 % (12.1-15.2)
[2023-12-01 11:54] LABS: Albumin 2.2 g/dL (3.4-5.0); Albumin/Globulin Ratio 0.6 (1.1-1.8); Anion Gap 8.4 mEq/L (5.0-15.0); Bilirubin Total 0.3 mg/dL (0.2-1.0); Globulin 3.9 g/dL (2.3-3.5); Magnesium 1.7 mg/dL (1.6-2.4); Potassium 4.4 mEq/L (3.5-5.1); Protein, Total 6.1 g/dL (6.4-8.2)
[2023-12-01 12:06] LABS: Blood Morphology Comment NOTED (NOT SEEN); Platelet Estimate DECR; White Blood Cell Scan OK (OK)
[2023-12-01 12:07] LABS: Hypochromasia 2+
--- NOTE | 2023-12-01 14:51 | PN ---
The patient seen in room 414 at [facility] in [place]. Subjective: The patient is alert, able to answer some questions. She is very weak, unable to move h er legs much, seems to be bed-bound. Amputation on left lower extremity. The patient has been livin g at a custodial, presented with volume overload, has been doing better now. Breathing is improve d. O2 sats are 100% on room air. Objective: Vital Signs: Stable. Blood pressure 121/57, pulse 60, respirations around 14, temperatu re is afebrile. Lungs: Clear. Abdomen: Soft. Extremities: No edema, but the patient does have significant weakness and amputation on the left low er extremity. Data: The patient's creatinine is reasonably stable with last one at 2.07 today. WBC count 5.2, hem oglobin 7.2, hematocrit 22.8, platelet count is 55, was at about 39 on November 28. INR at 1.85. Sodiu m 139, potassium 4.4, chloride is 114, bicarb is 21, BUN and creatinine are 107 and 2.07. Calcium at 9, magnesium at 1.7. Albumin at 2.2. Assessment And Plan: The patient is with multiple comorbidities, chronic kidney disease with wounds on her back as well. Currently with significant oozing going on from the wound, also with some quest ion of leakage around the Story or it could be the oozing that is coming from her sacral wounds. The patient has had pancytopenia with reduced hemoglobin, reduced platelet count, also WBCs on the lower side. She also has low albumin. Continue with caution to avoid hypotension and judicious diuresis to keep volume status close to euvolemia. The patient does not seem to be volume overloaded currentl y. She may need Story catheter changed. I discussed this with the nurse as well to get the Story ca theter changed. For her anemia, the patient has already got Retacrit. Currently the primary team is aware and ordering transfusion, orders for PRBCs and also for platelets and plasma to decrease the o ozing that she is having from her wounds and also to help her improve her blood counts which may also improve strength. Her metabolic acidosis seems to have resolved currently and bicarb is in normal r isabella. The patient has low albumin and would benefit from increased protein intake and physical thera py as best as she can tolerate. /ABBIE Voice ID: [id number] Report ID: [id number]
--- NOTE | 2023-12-01 17:15 | P.PN ---
Date of Service: 11/30/23 Subjective Reports dark liquid stools, severe anemia, transfuse hemoglobin less than Review of Systems 10 point review of system negative unless listed in HPI Physical Examination - Vital Signs Review - Physical Exam General: Alert, In no apparent distress, Oriented x3 bedrest HEENT: Atraumatic, Normocephalic, PERRLA Neck: Supple, 2+ carotid pulse no bruit, JVD not distended Respiratory: Diminished, normal air movement Cardiovascular: No edema, Normal pulses, Regular rate/rhythm, Normal S1 S2 Capillary refill: <2 Seconds Gastrointestinal: Normal bowel sounds, colostomy, PEG tube, Musculoskeletal: No clubbing, left AKA, generalized weakness Integumentary: No rashes, stage III sacral ulcer, Neurological: Normal gait, Normal speech, Normal strength at 5/5 x4 Lymphatics: No axilla or inguinal lymphadenopathy Assessment And Plan - Plan Acute on chronic diastolic heart failure exacerbation: Elevated BNP Atrial [place] [address]. Last Echo in June, shows EF 60 - 65%. Will continue bumex 2mg iv daily. fluid balance is -880cc. Will f/u Echo. Pt does not respond to lasix. cardilogy consult Diabetes type 2 We will monitor blood sugar ACHS and continue sliding scale insulin for glucose control. Severe anemia Normocytic anemia: Hgb is 8. Will monitor H/H. Transfuse when Hgb< 8. Transfused a total of 3 unit JUAREZ on CKD stage 3: Hyperkalemia improved Cr is 1.78. Will avoid nephrotoxins and monitor renal function. Nephrology consult Surgery consulted to if kidney function worsens Dr damon following Stage III sacral decubitus ulcers History of diabetic foot ulcer Will continue wound care. Pressure off loading Surgery consulted to eval lupus erythematosus Resume appropriate home Chronic back pain: Continue prn percocet. Fall precaution DVT ppx: SCD Dispo: pending hospital course. Prior [place] nursing <Alice Bartholomew - Last Filed: 12/02/23 15:07> Patient was seen and examined. Events of the last 24 hours have been noted. Spoke with with JACOB regarding patient's clinical picture after evaluating and examining the patient independently. I performed a substantial part of the MDM during this patient's care today. I personally made or approved the documented management plan and acknowledge its risk of complications. I agree with the findings and documentation provided in the JACOB's notes. Patient presented with fluid overload and AFib with RVR. Patient was diuresed and patient's rate is controlled. Continue with diuresing patient at this time and rate control. Patient was given anticoagulation; however, hemoglobin is stable; we did after transfused 2 units of packed red blood cells. Patient's platelet count has decreased and hemoglobin if it continues to decrease will go ahead and transfuse additional units and transfuse platelets. Patient with a large sacral decubitus ulcer-stage III. Cardiology has seen the patient and possible intervention as well. <Uziel Jasmine - Last Filed: 12/03/23 04:29>
--- NOTE | 2023-12-01 17:16 | P.PN ---
Date of Service: 11/30/23 Subjective Severe anemia, transfused a total of 3 units packed red blood cell, trend H&H Review of Systems 10 point review of system negative unless listed in HPI Physical Examination - Vital Signs Review - Physical Exam General: Alert, In no apparent distress, Oriented x3, afebrile HEENT: Atraumatic, Normocephalic, PERRLA Neck: Supple, 2+ carotid pulse no bruit, JVD not distended Respiratory: Diminished, normal air movement Cardiovascular: No edema, Normal pulses, Regular rate/rhythm, Normal S1 S2 Capillary refill: <2 Seconds Gastrointestinal: Normal bowel sounds, colostomy, PEG tube, Musculoskeletal: No clubbing, left AKA, generalized weakness Integumentary: No rashes, stage III sacral ulcer, Neurological: Normal gait, Normal speech, Normal strength at 5/5 x4 extr Lymphatics: No axilla or inguinal lymphadenopathy Assessment And Plan - Plan Acute on chronic diastolic heart failure exacerbation: Improved Elevated BNP improved [place]rial [place] [address]. Last Echo in June, shows EF 60 - 65%. Will continue bumex 2mg iv daily. fluid balance is -880cc. Will f/u Echo. Pt does not respond to lasix. cardilogy consult Colostomy, PEG tube Tolerating p.o. diet, surgery to move PEG tube prior to discharge Diabetes type 2 We will monitor blood sugar ACHS and continue sliding scale insulin for glucose control. Severe anemia Normocytic anemia: Hgb is 8. Will monitor H/H. Transfuse when Hgb< 8. JUAREZ on CKD stage 3: Hyperkalemia improved Cr is 1.78. Will avoid nephrotoxins and monitor renal function. Nephrology consult Surgery consulted to if kidney function worsens Dr damon following Stage III sacral decubitus ulcers History of diabetic foot ulcer Will continue wound care. Pressure off loading Surgery consulted to eval lupus erythematosus Resume appropriate home Chronic back pain: Continue prn percocet. Fall precaution DVT ppx: SCD Dispo: pending hospital course. Prior [facility] <Alice Bartholomew - Last Filed: 12/02/23 15:11> Date of Service: 12/01/23 Patient was seen and examined. Events of the last 24 hours have been noted. Spoke with with JACOB regarding patient's clinical picture after evaluating and examining the patient independently. I performed a substantial part of the MDM during this patient's care today. I personally made or approved the documented management plan and acknowledge its risk of complications. I agree with the findings and documentation provided in the JACOB's notes. Patient presented with fluid overload and AFib with RVR. Patient was diuresed and patient's rate is controlled. Continue with diuresing patient at this time and rate control. Patient was given anticoagulation; however, hemoglobin is stable; we did after transfused 2 units of packed red blood cells. Patient's platelet count is improved after transfusion; hemoglobin stable after transfusion of PRBCs. Patient with a large sacral decubitus ulcer-stage III that is bleeding-holding eliquis. Cardiology has seen the patient and possible intervention as well. <Uziel Jasmine - Last Filed: 12/03/23 04:31>
[2023-12-01] MEDS: NA CHLORIDE 0.9% 100 ML ONE (22:49)
[2023-12-02 06:09] LABS: Absolute Eosinophils 0.3 K/uL (0-0.5); Absolute Lymphocytes (CBC) 1.4 K/uL (0.7-4.9); Absolute Monocytes 0.6 K/uL (0.1-1.3); Absolute Neutrophil 2.4 K/uL (1.8-8.0); Basophils % 0.4 % (0-1.3); Eosinophils % 5.5 % (0-4.4); Hematocrit 23.2 % (36.0-45.0); Hemoglobin 7.7 g/dL (12.0-15.0); Lymphocytes % 29.7 % (15.3-44.8); MCH 28.8 pg (27.0-35.0); MCHC 33.1 g/dL (32.0-36.0); MCV 87.1 fL (80-100); MPV 9.6 fL (7.6-11.3); Monocytes % 13.2 % (3.3-12.3); Neutrophils % 51.2 % (41.7-73.7); Nucleated Red Blood Cells % 0.1 % (0-0); Platelets 85 thou/uL (152-406); RBC Red Blood Cell Count 2.66 M/uL (3.86-4.86); Red Cell Distribution Width 14.7 % (12.1-15.2)
[2023-12-02 06:24] LABS: Albumin 2.3 g/dL (3.4-5.0); Albumin/Globulin Ratio 0.6 (1.1-1.8); Anion Gap 7.3 mEq/L (5.0-15.0); Bilirubin Total 0.4 mg/dL (0.2-1.0); Globulin 3.8 g/dL (2.3-3.5); Magnesium 1.6 mg/dL (1.6-2.4); Potassium 4.3 mEq/L (3.5-5.1); Protein, Total 6.1 g/dL (6.4-8.2)
--- NOTE | 2023-12-02 09:12 | P.PN ---
Date of Service: 12/02/23 Subjective No overnight complaints, Colostomy, dark-colored stools, no active bleeding, trend H&H Review of Systems 10 point review of system negative unless listed in HPI Physical Examination - Vital Signs Review - Physical Exam General: Alert, In no apparent distress, Oriented x3, afebrile HEENT: Atraumatic, Normocephalic, PERRLA Neck: Supple, 2+ carotid pulse no bruit, JVD not distended Respiratory: Diminished, normal air movement Cardiovascular: No edema, Normal pulses, Regular rate/rhythm, Normal S1 S2 Capillary refill: <2 Seconds Gastrointestinal: Normal bowel sounds, colostomy, PEG tube Musculoskeletal: No clubbing, left AKA, Integumentary: No rashes, stage III sacral ulcer, Neurological: Normal gait, Normal speech, Normal strength at 5/5 x4 extr Lymphatics: No axilla or inguinal lymphadenopathy Assessment And Plan - Plan Acute on chronic diastolic heart failure exacerbation: Elevated BNP Atrial [place] [address]. Last Echo in June, shows EF 60 - 65%. Will continue bumex 2mg iv daily. fluid balance is -880cc. Will f/u Echo. Pt does not respond to lasix. cardilogy consult Colostomy PEG tube Tolerating p.o., surgery plan to DC PEG tube prior to discharge Diabetes type 2 We will monitor blood sugar ACHS and continue sliding scale insulin for glucose control. Severe anemia improved Normocytic anemia: Hgb is 8. Will monitor H/H. Transfuse when Hgb< 8. JUAREZ on CKD stage 3: Hyperkalemia improved Cr is 1.78. Will avoid nephrotoxins and monitor renal function. Nephrology consult Surgery consulted to if kidney function worsens Dr damon following Stage III sacral decubitus ulcers History of diabetic foot ulcer Will continue wound care. Pressure off loading Surgery consulted to eval lupus erythematosus Resume appropriate home Chronic back pain: Continue prn percocet. Fall precaution DVT ppx: SCD Dispo: pending hospital course. Prior [facility] <Alice Bartholomew - Last Filed: 12/02/23 15:17> Patient was seen and examined. Events of the last 24 hours have been noted. Spoke with with JACOB regarding patient's clinical picture after evaluating and examining the patient independently. I performed a substantial part of the MDM during this patient's care today. I personally made or approved the documented management plan and acknowledge its risk of complications. I agree with the findings and documentation provided in the JACOB's notes. Patient presented with fluid overload and AFib with RVR. Patient was diuresed and patient's rate is controlled. Continue with diuresing patient at this time and rate control. Patient was given anticoagulation; however, hemoglobin is stable; we did after transfused 2 units of packed red blood cells. Patient's platelet count is improved after transfusion; hemoglobin stable after transfusion of PRBCs. Patient with a large sacral decubitus ulcer-stage III that is bleeding-holding eliquis. Cardiology has seen the patient and possible intervention as well. <Uziel Jasmine - Last Filed: 12/03/23 04:34>
--- NOTE | 2023-12-02 15:01 | P.PN ---
Date of Service: 11/30/23 Subjective Severe anemia, hemoglobin 6.9, Type and cross 2 units Dark stools from colostomy, no bright red bleeding Review of Systems 10 point review of system negative unless listed in HPI Physical Examination - Vital Signs Review - Physical Exam General: Alert, In no apparent distress, Oriented x3 bedrest HEENT: Atraumatic, Normocephalic, PERRLA Neck: Supple, 2+ carotid pulse no bruit, JVD not distended Respiratory: Diminished, normal air movement Cardiovascular: No edema, Normal pulses, Regular rate/rhythm, Normal S1 S2 Capillary refill: <2 Seconds Gastrointestinal: Normal bowel sounds, colostomy, Musculoskeletal: No clubbing, left AKA, Integumentary: No rashes, stage III sacral ulcer, Neurological: Normal gait, Normal speech, Normal strength at 5/5 x4 extr Lymphatics: No axilla or inguinal lymphadenopathy Assessment And Plan - Plan Acute on chronic diastolic heart failure exacerbation: Improved Elevated BNP Atrial [place] [address]. Last Echo in June, shows EF 60 - 65%. Will continue bumex 2mg iv daily. fluid balance is -880cc. Will f/u Echo. Pt does not respond to lasix. cardilogy consult Diabetes type 2 We will monitor blood sugar ACHS and continue sliding scale insulin for glucose control. Severe anemia Normocytic anemia: Hgb is 8. Will monitor H/H. Transfuse when Hgb< 8. Transfuse packed red blood cell JUAREZ on CKD stage 3: Hyperkalemia improved Cr is 1.78. Will avoid nephrotoxins and monitor renal function. Nephrology consult Surgery consulted to if kidney function worsens Dr damon following Stage III sacral decubitus ulcers History of diabetic foot ulcer Will continue wound care. Pressure off loading Surgery consulted to eval lupus erythematosus Resume appropriate home Chronic back pain: Continue prn percocet. Fall precaution DVT ppx: SCD Dispo: pending hospital course. Prior [place] nursing
--- NOTE | 2023-12-02 15:06 | P.PN ---
Date of Service: 11/30/23 Subjective Severe anemia has received 3 units of packed red blood cells, Trend H&H, Review of Systems 10 point review of system negative unless listed in HPI Physical Examination - Vital Signs Review - Physical Exam General: Alert, In no apparent distress, Oriented x3 bedrest HEENT: Atraumatic, Normocephalic, PERRLA Neck: Supple, 2+ carotid pulse no bruit, JVD not distended Respiratory: Diminished, normal air movement Cardiovascular: No edema, Normal pulses, Regular rate/rhythm, Normal S1 S2 Capillary refill: <2 Seconds Gastrointestinal: Normal bowel sounds, colostomy, PEG tube, Musculoskeletal: No clubbing, left AKA, generalized weakness Integumentary: No rashes, stage III sacral ulcer, Neurological: Normal gait, Normal speech, Normal strength at 5/5 x4 extr Lymphatics: No axilla or inguinal lymphadenopathy Assessment And Plan - Plan Acute on chronic diastolic heart failure exacerbation: Improved Elevated BNP improved Atrial [place] [address]. Last Echo in June, shows EF 60 - 65%. Will continue bumex 2mg iv daily. fluid balance is -880cc. Will f/u Echo. Pt does not respond to lasix. cardilogy consult Colostomy PEG tube Surgery following to remove PEG tube while inpatient this visit patient is tolerating p.o. diet Diabetes type 2 We will monitor blood sugar ACHS and continue sliding scale insulin for glucose control. Thrombocytopenia Severe anemia Normocytic anemia: Hgb is 8. Will monitor H/H. Transfuse when Hgb< 8. JUAREZ on CKD stage 3: Hyperkalemia improved Cr is 1.78. Will avoid nephrotoxins and monitor renal function. Nephrology consult Surgery consulted to if kidney function worsens Dr damon following Stage III sacral decubitus ulcers History of diabetic foot ulcer Will continue wound care. Pressure off loading Surgery consulted to eval lupus erythematosus Resume appropriate home Chronic back pain: Continue prn percocet. Fall precaution DVT ppx: SCD Dispo: pending hospital course. Prior [facility] nursing
[2023-12-03 05:55] LABS: Absolute Eosinophils 0.3 K/uL (0-0.5); Absolute Lymphocytes (CBC) 1.4 K/uL (0.7-4.9); Absolute Monocytes 0.6 K/uL (0.1-1.3); Absolute Neutrophil 2.4 K/uL (1.8-8.0); Basophils % 0.7 % (0-1.3); Hematocrit 23.9 % (36.0-45.0); Hemoglobin 7.8 g/dL (12.0-15.0); Lymphocytes % 29.6 % (15.3-44.8); MCH 28.6 pg (27.0-35.0); MCHC 32.8 g/dL (32.0-36.0); MCV 87.2 fL (80-100); MPV 9.6 fL (7.6-11.3); Monocytes % 13.6 % (3.3-12.3); Neutrophils % 50.1 % (41.7-73.7); Nucleated Red Blood Cells % 0.1 % (0-0); Platelets 83 thou/uL (152-406); RBC Red Blood Cell Count 2.74 M/uL (3.86-4.86); Red Cell Distribution Width 14.6 % (12.1-15.2)
[2023-12-03 06:07] LABS: Anion Gap 7.3 mEq/L (5.0-15.0); Potassium 4.3 mEq/L (3.5-5.1)
--- NOTE | 2023-12-03 10:18 | P.PN ---
Date of Service: 12/03/23 Vital Signs Temp Pulse Resp BP Pulse Ox 97.4 F 60 18 136/66 99 12/03/23 08:00 12/03/23 08:16 12/03/23 08:00 12/03/23 08:16 12/03/23 08:00 Medications Acetaminophen (Acetaminophen 500 Mg Tab) 500 mg PO Q6H PRN PRN Reason: Pain scale 2-4 (Mild) Apixaban (Apixaban 5 Mg Tablet) 5 mg PO BID [facility] Last Admin: 12/03/23 08:16 Dose: 5 mg Donepezil HCl (Donepezil Hcl 5 Mg Tab) 10 mg PO BEDTIME [facility] Last Admin: 12/02/23 20:37 Dose: 10 mg Gabapentin (Gabapentin 300 Mg Cap) 300 mg PO TID [facility] Last Admin: 12/03/23 08:16 Dose: 300 mg Hydralazine HCl (Hydralazine Hcl 25 Mg Tablet) 25 mg PO DAILY [facility] Last Admin: 12/03/23 08:16 Dose: 25 mg L-Arginine/L-Glutamine/HMB (Humble Packet) 1 pkt PO BID [facility] Last Admin: 12/03/23 08:29 Dose: 1 pkt Metoprolol Tartrate (Metoprolol Tar 50 Mg Tab) 50 mg PO DAILY [facility] Last Admin: 12/03/23 08:16 Dose: 50 mg Morphine Sulfate (Morphine 2 Mg/Ml Syr) 2 mg IV Q4H PRN PRN Reason: Breakthrough pain Last Admin: 12/03/23 08:17 Dose: 2 mg Ondansetron HCl (Ondansetron 4 Mg/2 Ml Vial) 4 mg IV Q8H PRN PRN Reason: NAUSEA / VOMITING Last Admin: 11/28/23 19:28 Dose: 4 mg Oxycodone/Acetaminophen (Oxycodone Hcl/Acetaminophen 5/325 Mg Tab) 2 tab PO Q8H PRN PRN Reason: Pain scale 8-10 (Severe) Last Admin: 12/03/23 00:51 Dose: 2 tab Zolpidem Tartrate (Zolpidem Tartrate 10 Mg Tablet) 10 mg PO BEDTIME [facility] Last Admin: 12/02/23 20:37 Dose: 10 mg Assessment/ Plan: Nephrology No dyspnea No chest pain Fatigue and weakness No acute events overnight Vitals, medications, blood work and imaging reviewed in the chart General: In no apparent distress, Oriented x3, Cooperative HEENT: Atraumatic Neck: Supple Respiratory: Normal air movement Cardiovascular: Regular rate/rhythm, Edema Gastrointestinal: Soft and benign, Non-distended Musculoskeletal: No clubbing, No contractures, Other (Left AKA) Integumentary: No rashes, No cyanosis, Pressure ulcer Neurological: Normal speech Story Light Blood work reviewed in the chart. Imagings Data: EXAM DESCRIPTION: RAD - Chest Single View - 11/24/2023 5:08 pm CLINICAL HISTORY: edema Chest pain. COMPARISON: <Comparisons> FINDINGS: Portable technique limits examination quality. Moderate pulmonary edema. The heart is significantly enlarged. No displaced fractures.Multi lead pacer device. IMPRESSION: Moderate CHF. LEFT VENTRICULAR WALL MOTION: NORMAL DOPPLER/COLOR FLOW: SEE BELOW. COMMENTS: 1. NORMAL LEFT VENTRICULAR EJECTION FRACTION 60-65% WITH NORMAL WALL MOTION. 2. MILD CONCENTRIC LEFT VENTRIUCLAR HYPERTROPHY. 3. DIASTOLIC DYSFUNCTION. 4. LEFT ATRIAL ENLARGEMENT. 5. MILD MITRAL, TRICUSPID, AORTIC AND PULMONARY REGURGITATION. 6. PULMONARY HYPERTENSION WITH RIGHT VENTRICULAR SYSTOLIC PRESSURE >60 mmHg. Conclusions/Impression: Stage I JUAREZ may be CRS complicated by hypotension and diuresis CKD III -No NSAIDs HTN with CKD/ CHF -Continue Metoprolol Diastolic CHF, A/C Pulmonary HTN -Daily weight -Follow up with cardiology Hypoalbuminemia -Continue Humble -Albumin IV prn Anemia in chronic illness -Monitor H&H -Retacrit prn -PRBC prn Hospitalist note reviewed
--- NOTE | 2023-12-03 13:14 | P.PN ---
Subjective Date of Service: 12/03/23 Chief Complaint: Congestive heart failure Pt is resting comfortably in bed. She has positive fluid balance. Pt still has leg edema. No other complaints. Review of Systems General: Unremarkable Eyes: Unremarkable ENT: Unremarkable Respiratory: Unremarkable Cardiovascular: Edema Gastrointestinal: Unremarkable Genitourinary: Unremarkable Musculoskeletal: Other (left BKA) Integumentary: Unremarkable Neurological: Unremarkable Lymphatics: Unremarkable Physical Examination - Vital Signs Temperature: 97.4 F Blood Pressure: 136/66 Pulse: 60 Respirations: 18 Pulse Ox (%): 99 - Physical Exam General: Alert, In no apparent distress, Oriented x3 HEENT: Atraumatic, Normocephalic, PERRLA Neck: Supple, 2+ carotid pulse no bruit Respiratory: Clear to auscultation bilaterally, Normal air movement Cardiovascular: No edema, Normal pulses, Regular rate/rhythm, Normal S1 S2 Capillary refill: <2 Seconds Gastrointestinal: Normal bowel sounds, Soft and benign, Non-distended Musculoskeletal: No clubbing, No swelling, No contractures Integumentary: No rashes, No breakdown, No significant lesion Neurological: Normal gait, Normal speech, Normal strength at 5/5 x4 extr Lymphatics: No axilla or inguinal lymphadenopathy Assessment And Plan - Plan Acute diastolic [place]ation: [place] [address]. Last Echo in June, shows EF 60 - 65%. Will continue bumex 2mg iv daily. fluid balance is positive. Will f/u Echo. Pt does not respond to lasix. Cardiology is following. A. fib: Will continue telemetry, metoprolol and eliquis. Normocytic anemia: Hgb is 7.8. Will monitor H/H. Transfuse when Hgb< 8. Will give 1 unit of blood. JUAREZ on CKD stage 3: Cr is 1.79 <- 1.92. Will avoid nephrotoxins and monitor renal function. Nephrology is following. DM II: Continue accuchek, SSI and ADA diet. Sacral wound: Will continue wound care. Lupus erythematosus: Will continue home med. Back pain: Continue prn percocet. 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 Gen surgery will remove it prior to dc. DVT ppx: SCD Dispo: pending hospital course.
[2023-12-03] MEDS: BUMETANIDE 1 MG/4 ML VIAL IV SCH (17:20)
[2023-12-03] MEDS: NA CHLORIDE 0.9% 250 ML ONE (20:44)
[2023-12-04 03:05] LABS: Hematocrit 26.9 % (36.0-45.0); Hemoglobin 8.8 g/dL (12.0-15.0)
[2023-12-04 05:45] LABS: Absolute Eosinophils 0.3 K/uL (0-0.5); Absolute Lymphocytes (CBC) 1.6 K/uL (0.7-4.9); Absolute Monocytes 0.8 K/uL (0.1-1.3); Absolute Neutrophil 2.9 K/uL (1.8-8.0); Basophils % 0.6 % (0-1.3); Eosinophils % 4.6 % (0-4.4); Hematocrit 25.4 % (36.0-45.0); Hemoglobin 8.3 g/dL (12.0-15.0); Lymphocytes % 29.2 % (15.3-44.8); MCH 28.4 pg (27.0-35.0); MCHC 32.8 g/dL (32.0-36.0); MCV 86.8 fL (80-100); Monocytes % 13.5 % (3.3-12.3); Neutrophils % 52.1 % (41.7-73.7); Platelets 93 thou/uL (152-406); RBC Red Blood Cell Count 2.93 M/uL (3.86-4.86); Red Cell Distribution Width 14.9 % (12.1-15.2)
[2023-12-04 05:59] LABS: Anion Gap 10.4 mEq/L (5.0-15.0); Potassium 4.4 mEq/L (3.5-5.1)
--- NOTE | 2023-12-04 08:03 | P.PN ---
Date of Service: 12/04/23 Vital Signs Temp Pulse Resp BP Pulse Ox 97.3 F 62 16 118/58 L 100 12/04/23 04:00 12/04/23 04:00 12/04/23 05:03 12/04/23 04:00 12/04/23 05:03 Medications Acetaminophen (Acetaminophen 500 Mg Tab) 500 mg PO Q6H PRN PRN Reason: Pain scale 2-4 (Mild) Apixaban (Apixaban 5 Mg Tablet) 5 mg PO BID [facility] Last Admin: 12/03/23 20:23 Dose: Not Given Bumetanide (Bumetanide 1 Mg/4 Ml Vial) 1 mg IV DAILY [facility] Last Admin: 12/03/23 17:20 Dose: Not Given Donepezil HCl (Donepezil Hcl 5 Mg Tab) 10 mg PO BEDTIME [facility] Last Admin: 12/03/23 20:05 Dose: 10 mg Gabapentin (Gabapentin 300 Mg Cap) 300 mg PO TID [facility] Last Admin: 12/03/23 20:05 Dose: 300 mg Hydralazine HCl (Hydralazine Hcl 25 Mg Tablet) 25 mg PO DAILY [facility] Last Admin: 12/03/23 08:16 Dose: 25 mg L-Arginine/L-Glutamine/HMB (Humble Packet) 1 pkt PO BID [facility] Last Admin: 12/03/23 20:06 Dose: 1 pkt Metoprolol Tartrate (Metoprolol Tar 50 Mg Tab) 50 mg PO DAILY [facility] Last Admin: 12/03/23 08:16 Dose: 50 mg Morphine Sulfate (Morphine 2 Mg/Ml Syr) 2 mg IV Q4H PRN PRN Reason: Breakthrough pain Last Admin: 12/04/23 04:33 Dose: 2 mg Ondansetron HCl (Ondansetron 4 Mg/2 Ml Vial) 4 mg IV Q8H PRN PRN Reason: NAUSEA / VOMITING Last Admin: 11/28/23 19:28 Dose: 4 mg Oxycodone/Acetaminophen (Oxycodone Hcl/Acetaminophen 5/325 Mg Tab) 2 tab PO Q8H PRN PRN Reason: Pain scale 8-10 (Severe) Last Admin: 12/03/23 00:51 Dose: 2 tab Zolpidem Tartrate (Zolpidem Tartrate 10 Mg Tablet) 10 mg PO BEDTIME [facility] Last Admin: 12/03/23 20:05 Dose: 10 mg Assessment/ Plan: Nephrology No dyspnea No chest pain Feeling better today No acute events overnight Vitals, medications, blood work and imaging reviewed in the chart General: In no apparent distress, Oriented x3, Cooperative HEENT: Atraumatic Neck: Supple Respiratory: Normal air movement Cardiovascular: Regular rate/rhythm, Edema Gastrointestinal: Soft and benign, Non-distended Musculoskeletal: No clubbing, No contractures, Other (Left AKA) Integumentary: No rashes, No cyanosis, Pressure ulcer Neurological: Normal speech Story Light Blood work reviewed in the chart. Imagings Data: EXAM DESCRIPTION: RAD - Chest Single View - 11/24/2023 5:08 pm CLINICAL HISTORY: edema Chest pain. COMPARISON: <Comparisons> FINDINGS: Portable technique limits examination quality. Moderate pulmonary edema. The heart is significantly enlarged. No displaced fractures.Multi lead pacer device. IMPRESSION: Moderate CHF. LEFT VENTRICULAR WALL MOTION: NORMAL DOPPLER/COLOR FLOW: SEE BELOW. COMMENTS: 1. NORMAL LEFT VENTRICULAR EJECTION FRACTION 60-65% WITH NORMAL WALL MOTION. 2. MILD CONCENTRIC LEFT VENTRIUCLAR HYPERTROPHY. 3. DIASTOLIC DYSFUNCTION. 4. LEFT ATRIAL ENLARGEMENT. 5. MILD MITRAL, TRICUSPID, AORTIC AND PULMONARY REGURGITATION. 6. PULMONARY HYPERTENSION WITH RIGHT VENTRICULAR SYSTOLIC PRESSURE >60 mmHg. Conclusions/Impression: Stage I JUAREZ may be CRS complicated by hypotension and diuresis CKD III -No NSAIDs HTN with CKD/ CHF -Continue Metoprolol Diastolic CHF, A/C Pulmonary HTN -Daily weight -Follow up with cardiology Hypoalbuminemia -Continue Humble -Albumin IV prn Anemia in chronic illness -Monitor H&H -Retacrit prn -PRBC prn Hospitalist note reviewed
--- NOTE | 2023-12-04 15:09 | P.PN ---
Subjective Date of Service: 12/04/23 Chief Complaint: Congestive heart failure Pt is resting comfortably in bed. She has positive fluid balance. Pt still has leg edema. Waiting on cardiology recommendation. No other complaints. Review of Systems General: Unremarkable Eyes: Unremarkable ENT: Unremarkable Respiratory: Unremarkable Cardiovascular: Edema Gastrointestinal: Unremarkable Genitourinary: Unremarkable Musculoskeletal: Other (left BKA) Integumentary: Unremarkable Neurological: Unremarkable Lymphatics: Unremarkable Physical Examination - Vital Signs Temperature: 97.8 F Blood Pressure: 131/56 Pulse: 60 Respirations: 15 Pulse Ox (%): 98 - Physical Exam General: Alert, In no apparent distress, Oriented x3 HEENT: Atraumatic, Normocephalic, PERRLA Neck: Supple, 2+ carotid pulse no bruit, JVD not distended Respiratory: Clear to auscultation bilaterally, Normal air movement Cardiovascular: No edema, Normal pulses, Regular rate/rhythm, Normal S1 S2, Edema Capillary refill: <2 Seconds Gastrointestinal: Normal bowel sounds, Soft and benign, Non-distended Musculoskeletal: No clubbing, No swelling, No contractures, Other (left BKA) Integumentary: No rashes, No breakdown, No significant lesion Neurological: Normal gait, Normal speech, Normal strength at 5/5 x4 extr, Normal tone, Sensation intact, Cranial nerves 3-12 intact Lymphatics: No axilla or inguinal lymphadenopathy Assessment And Plan - Plan Acute diastolic [place]ation[place] [address]. Last Echo in June, shows EF 60 - 65%. Will continue bumex 1mg iv BID. fluid balance is positive. Will f/u Echo. Pt does not respond to lasix. Cardiology is following. Will likely do cardac cath before diacharge A. fib: Will continue telemetry, metoprolol and eliquis. Normocytic anemia: Hgb is 7.8. Will monitor H/H. Transfuse when Hgb< 8. Will give 1 unit of blood. JUAREZ on CKD stage 3: Cr is 1.62 <- 1.79 <- 1.92. Will avoid nephrotoxins and monitor renal function. Nephrology is following. DM II: Continue accuchek, SSI and ADA diet. Sacral wound: Will continue wound care. Lupus erythematosus: Will continue home med. Back pain: Continue prn percocet. 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 Gen surgery will remove it prior to dc. DVT ppx: SCD Dispo: pending hospital course. Will dc once cleared by Cardiology.
[2023-12-04] MEDS: Mupirocin NASAL 2 APPL/1 GM TUBE NAS SCH (21:00)
[2023-12-05 07:41] LABS: Absolute Eosinophils 0.3 K/uL (0-0.5); Absolute Lymphocytes (CBC) 1.7 K/uL (0.7-4.9); Absolute Monocytes 0.7 K/uL (0.1-1.3); Basophils % 0.5 % (0-1.3); Eosinophils % 4.5 % (0-4.4); Hematocrit 25.4 % (36.0-45.0); Hemoglobin 8.2 g/dL (12.0-15.0); Lymphocytes % 29.5 % (15.3-44.8); MCH 28.3 pg (27.0-35.0); MCHC 32.5 g/dL (32.0-36.0); MCV 87.1 fL (80-100); MPV 9.5 fL (7.6-11.3); Monocytes % 11.9 % (3.3-12.3); Neutrophils % 53.6 % (41.7-73.7); Nucleated Red Blood Cells % 0.1 % (0-0); Platelets 110 thou/uL (152-406); RBC Red Blood Cell Count 2.91 M/uL (3.86-4.86); Red Cell Distribution Width 14.9 % (12.1-15.2)
[2023-12-05 07:50] LABS: Anion Gap 6.2 mEq/L (5.0-15.0); Potassium 4.2 mEq/L (3.5-5.1)
[2023-12-05] MEDS ORDERED: LIDOCAINE 1% 20 ML MDV ONE (10:51)
[2023-12-05] MEDS ORDERED: MIDAZOLAM HCL 2 MG/2 ML INJ ONE (10:51)
[2023-12-05] MEDS ORDERED: ATROPINE SULF 1 MG/10 ML SYR IV ONE (10:51)
[2023-12-05] MEDS ORDERED: HEPA 1000U/500MLS 2,000 UNIT/1,000 ML BAG IV ONE (10:51)
[2023-12-05] MEDS ORDERED: FENTANYL CITR 100 MCG/2 ML ONE (10:52)
[2023-12-05] MEDS ORDERED: NA CHLORIDE 0.9% 500 ML ONE (10:52)
[2023-12-05 11:57] VITALS: O2SAT 98
--- NOTE | 2023-12-05 13:43 | P.PN ---
Subjective Date of Service: 12/05/23 Chief Complaint: Congestive heart failure Pt is resting comfortably in bed. She has positive fluid balance. The leg edema is slowly improving. She is NPO. Cardiology will do Cardiac cath. No other complaints. Review of Systems General: Unremarkable Eyes: Unremarkable ENT: Unremarkable Respiratory: Unremarkable Cardiovascular: Edema Gastrointestinal: Unremarkable Genitourinary: Unremarkable Musculoskeletal: Other (left BKA) Integumentary: Unremarkable Neurological: Unremarkable Lymphatics: Unremarkable Physical Examination - Vital Signs Temperature: 97.9 F Blood Pressure: 127/60 Pulse: 60 Respirations: 16 Pulse Ox (%): 100 - Physical Exam General: Alert, In no apparent distress, Oriented x3 HEENT: Atraumatic, Normocephalic, PERRLA Neck: Supple, 2+ carotid pulse no bruit, JVD not distended Respiratory: Clear to auscultation bilaterally, Normal air movement, Diminished Cardiovascular: No edema, Normal pulses, Regular rate/rhythm, Normal S1 S2, Edema Capillary refill: <2 Seconds Gastrointestinal: Normal bowel sounds, Soft and benign, Non-distended Musculoskeletal: Swelling, Other (left BKA) Integumentary: No rashes, No breakdown, No significant lesion Neurological: Normal gait, Normal speech, Normal strength at 5/5 x4 extr Lymphatics: No axilla or inguinal lymphadenopathy Assessment And Plan - Plan Acute diastolic [place] [address]. Last Echo in June, shows EF 60 - 65%. Will continue bumex 1mg iv BID. fluid balance is positive. Will f/u Echo. Pt does not respond to lasix. Cardiology will do cardac cath today. Pt is NPO. A. fib: Will continue telemetry, metoprolol and eliquis. Normocytic anemia: Hgb is 8.2 <- 7.8. Will monitor H/H. Transfuse when Hgb< 8. Will give 1 unit of blood. JUAREZ on CKD stage 3: Cr is 1.55<- 1.62 <- 1.79 <- 1.92. Will avoid nephrotoxins and monitor renal function. Nephrology is following. DM II: Continue accuchek, SSI and ADA diet. Sacral wound: Will continue wound care. Lupus erythematosus: Will continue home med. Back pain: Continue prn percocet. 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 Gen surgery will remove it prior to dc. DVT ppx: SCD Dispo: pending hospital course. Will dc once cleared by Cardiology.
--- NOTE | 2023-12-05 19:29 | PN ---
Date of Progress Note: 12/05/2023 Subjective: The patient is status post right heart catheterization today. She did well. Apparently , she has mixed pulmonary artery and venous hypertension. Her wedge was 17, but her pulmonary vascul ar resistance was 4 Wood units. Physical Examination: Vital Signs: Reviewed. Head and Neck: Pupils are equal, reactive to light. No JVD. No cervical lymphadenopathy. Neck is supple. Thyroid is not enlarged. Lungs: Clear to auscultation bilaterally. No rhonchi, wheezing, or crackles. No accessory muscle u se. Heart: Irregular. No extra sounds. Abdomen: Soft. Bowel sounds positive. Extremities: No clubbing, cyanosis. Neuro: Alert, awake. No acute focal deficits appreciated. Investigations: BUN 81, creatinine 1.55. Assessment/recommendations: 1.Severe pulmonary hypertension. A good part of it is primary arterial as the pulmonary vascular re sistance is elevated. Consult Pulmonary to treat pulmonary artery hypertension. Recommend to start with sildenafil if blood pressure allows and adjust medications according to the response of treatmen t. If she can get an echo few weeks down the road after sildenafil and then assess the right ventric ular systolic pressure and adjust medications accordingly. 2.Congestive heart failure, diastolic. She has restrictive pathology. This patient seems to be euv olemic. Agree with gentle diuresis and careful monitor of BUN and creatinine electrolytes. 3.Atrial fibrillation, controlled. Continue current management. Cardiology will sign off from this case. SR/MODL Voice ID: [id number] Report ID: [id number]
--- NOTE | 2023-12-05 20:41 | P.PN ---
Date of Service: 12/05/23 Vital Signs Temp Pulse Resp BP Pulse Ox 97.8 F 60 16 137/62 100 12/05/23 16:00 12/05/23 16:00 12/05/23 16:00 12/05/23 16:00 12/05/23 16:00 Medications Acetaminophen (Acetaminophen 500 Mg Tab) 500 mg PO Q6H PRN PRN Reason: Pain scale 2-4 (Mild) Apixaban (Apixaban 5 Mg Tablet) 5 mg PO BID [facility] Last Admin: 12/04/23 09:00 Dose: Not Given Bumetanide (Bumetanide 1 Mg/4 Ml Vial) 1 mg IV DAILY [facility] Last Admin: 12/05/23 08:42 Dose: Not Given Donepezil HCl (Donepezil Hcl 5 Mg Tab) 10 mg PO BEDTIME [facility] Last Admin: 12/04/23 21:07 Dose: 10 mg Gabapentin (Gabapentin 300 Mg Cap) 300 mg PO TID [facility] Last Admin: 12/05/23 13:51 Dose: 300 mg Hydralazine HCl (Hydralazine Hcl 25 Mg Tablet) 25 mg PO DAILY [facility] Last Admin: 12/05/23 08:42 Dose: Not Given L-Arginine/L-Glutamine/HMB (Humble Packet) 1 pkt PO BID [facility] Last Admin: 12/05/23 08:42 Dose: Not Given Metoprolol Tartrate (Metoprolol Tar 50 Mg Tab) 50 mg PO DAILY [facility] Last Admin: 12/05/23 08:42 Dose: Not Given Morphine Sulfate (Morphine 2 Mg/Ml Syr) 2 mg IV Q4H PRN PRN Reason: Breakthrough pain Last Admin: 12/05/23 18:02 Dose: 2 mg Ondansetron HCl (Ondansetron 4 Mg/2 Ml Vial) 4 mg IV Q8H PRN PRN Reason: NAUSEA / VOMITING Last Admin: 11/28/23 19:28 Dose: 4 mg Oxycodone/Acetaminophen (Oxycodone Hcl/Acetaminophen 5/325 Mg Tab) 2 tab PO Q8H PRN PRN Reason: Pain scale 8-10 (Severe) Last Admin: 12/04/23 17:16 Dose: 2 tab Assessment/ Plan: Nephrology No dyspnea No chest pain Feeling better today No acute events overnight Vitals, medications, blood work and imaging reviewed in the chart General: In no apparent distress, Oriented x3, Cooperative HEENT: Atraumatic Neck: Supple Respiratory: Normal air movement Cardiovascular: Regular rate/rhythm, Edema Gastrointestinal: Soft and benign, Non-distended Musculoskeletal: No clubbing, No contractures, Other (Left AKA) Integumentary: No rashes, No cyanosis, Pressure ulcer Neurological: Normal speech Story Light Blood work reviewed in the chart. Imagings Data: EXAM DESCRIPTION: RAD - Chest Single View - 11/24/2023 5:08 pm CLINICAL HISTORY: edema Chest pain. COMPARISON: <Comparisons> FINDINGS: Portable technique limits examination quality. Moderate pulmonary edema. The heart is significantly enlarged. No displaced fractures.Multi lead pacer device. IMPRESSION: Moderate CHF. LEFT VENTRICULAR WALL MOTION: NORMAL DOPPLER/COLOR FLOW: SEE BELOW. COMMENTS: 1. NORMAL LEFT VENTRICULAR EJECTION FRACTION 60-65% WITH NORMAL WALL MOTION. 2. MILD CONCENTRIC LEFT VENTRIUCLAR HYPERTROPHY. 3. DIASTOLIC DYSFUNCTION. 4. LEFT ATRIAL ENLARGEMENT. 5. MILD MITRAL, TRICUSPID, AORTIC AND PULMONARY REGURGITATION. 6. PULMONARY HYPERTENSION WITH RIGHT VENTRICULAR SYSTOLIC PRESSURE >60 mmHg. Conclusions/Impression: Stage I JUAREZ may be CRS complicated by hypotension and diuresis CKD III -No NSAIDs HTN with CKD/ CHF -Continue Metoprolol Diastolic CHF, A/C Pulmonary HTN -Daily weight -Follow up with cardiology Hypoalbuminemia -Continue Humble -Albumin IV prn Anemia in chronic illness -Monitor H&H -Retacrit prn -PRBC prn Hospitalist note reviewed Case reviewed with hospitalist team
[2023-12-06 05:21] LABS: Absolute Eosinophils 0.3 K/uL (0-0.5); Absolute Lymphocytes (CBC) 1.5 K/uL (0.7-4.9); Absolute Monocytes 0.7 K/uL (0.1-1.3); Absolute Neutrophil 4.2 K/uL (1.8-8.0); Basophils % 0.4 % (0-1.3); Eosinophils % 3.9 % (0-4.4); Hematocrit 24.3 % (36.0-45.0); Lymphocytes % 22.4 % (15.3-44.8); MCH 28.8 pg (27.0-35.0); MCV 87.2 fL (80-100); MPV 9.5 fL (7.6-11.3); Monocytes % 11.2 % (3.3-12.3); Neutrophils % 62.1 % (41.7-73.7); Nucleated Red Blood Cells % 0.1 % (0-0); Platelets 124 thou/uL (152-406); RBC Red Blood Cell Count 2.78 M/uL (3.86-4.86); Red Cell Distribution Width 14.9 % (12.1-15.2)
[2023-12-06 05:35] LABS: Anion Gap 7.3 mEq/L (5.0-15.0); Potassium 4.3 mEq/L (3.5-5.1)
--- NOTE | 2023-12-06 10:14 | OP ---
Date of Procedure: 12/05/2023 Surgeon: Ender Szymanski Procedure Performed: Right heart catheterization. Indication For Procedure: Pulmonary hypertension and heart failure. Complications: None. Estimated Blood Loss: Less than 50 cc. Sedation Time: 20 minutes with 1 of Versed and 25 of fentanyl. Access: Right IJ, closed by manual compression. Description Of Procedure: After risks, benefits, and alternatives were explained to the patient, the patient agreed to proceed with the procedure and signed informed consent. The patient was brought back to the laboratory administrative director, prepped and draped in a sterile fashion. A time-out was performed and sedation was administered. Next, the right jugular artery access was obtained using ultrasound-guided micropuncture technique. A 7-[place] sheath was introduced. After that, one catheter was introduced for measurements of pulmonary pressures and the sheath was pulled at the end of the procedure and manual compression was applied. The patient was moved to Recovery in stable condition. Findings: 1. Right atrial pressure is 8 mmHg. 2. RV is 81/1 mmHg. 3. PA 78/16 mmHg with a mean of 37 mmHg. 4. Pulmonary capillary wedge pressure 17 mmHg. 5. Cardiac output 5.3 L/minute. Assessment And Plan: Elevated pulmonary pressures with severe combined pulmonary arterial and venous hypertension, most likely arterial component. Plan continue gentle diuresis on this patient and consult Pulmonary to start treatment for pulmonary arterial hypertension and consider sildenafil if blood pressure allows. STARR/ABBIE Voice ID: [id number] Report ID: [id number] VERENA
[2023-12-06] MEDS ORDERED: MORPHINE 2 MG/ML SYR IV PRN (11:17)
[2023-12-06] MEDS: MORPHINE 2 MG/ML SYR ONE (11:56)
[2023-12-06] MEDS: MORPHINE 2 MG/ML SYR IV PRN (11:59)
--- NOTE | 2023-12-06 14:21 | P.PN ---
Subjective Date of Service: 12/06/23 Chief Complaint: Congestive heart failure Pt is resting comfortably in bed. She has positive fluid balance. The leg edema is slowly improving. Right heart cath showed pulmonary arterial htn. Waiting for Pulm to start Slidenafil. Cardiology is following. No other complaints. Review of Systems General: Unremarkable Eyes: Unremarkable ENT: Unremarkable Respiratory: Unremarkable Cardiovascular: Edema Gastrointestinal: Unremarkable Genitourinary: Unremarkable Musculoskeletal: Other (left BKA) Integumentary: Unremarkable Neurological: Unremarkable Lymphatics: Unremarkable Physical Examination - Vital Signs Temperature: 97.5 F Blood Pressure: 136/63 Pulse: 62 Respirations: 16 Pulse Ox (%): 100 - Physical Exam General: Alert, In no apparent distress, Oriented x3 HEENT: Atraumatic, Normocephalic, PERRLA Neck: Supple, 2+ carotid pulse no bruit, JVD not distended Respiratory: Clear to auscultation bilaterally, Normal air movement Cardiovascular: No edema, Normal pulses, Regular rate/rhythm, Normal S1 S2, Edema Capillary refill: <2 Seconds Gastrointestinal: Normal bowel sounds, Soft and benign, Non-distended Musculoskeletal: No clubbing, No swelling, Other (left BKA) Integumentary: No rashes, No breakdown, No significant lesion Neurological: Normal gait, Normal speech, Normal strength at 5/5 x4 extr Lymphatics: No axilla or inguinal lymphadenopathy Assessment And Plan - Plan Acute diastolic [place] [address]. Last Echo in June, shows EF 60 - 65%. Will continue bumex 1mg iv BID. fluid balance is positive. Will f/u Echo. Pt does not respond to lasix. Cardiology did cardac cath which shows pulm arterial htn. Consulted Pulmonology to possibly start slidenafil. A. fib: Will continue telemetry, metoprolol and eliquis. Normocytic anemia: Hgb is 8.0 <- 8.2 <- 7.8. Will monitor H/H. Transfuse when Hgb< 8. Will give 1 unit of blood. JUAREZ on CKD stage 3: Cr is 1.52<- 1.55<- 1.62 <- 1.79 <- 1.92. Will avoid nephrotoxins and monitor renal function. Nephrology is following. DM II: Continue accuchek, SSI and ADA diet. Sacral wound: Will continue wound care. Lupus erythematosus: Will continue home med. Back pain: Continue prn percocet. 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 Gen surgery will remove it prior to dc. DVT ppx: SCD Dispo: pending hospital course. Will dc once cleared by Cardiology.
--- NOTE | 2023-12-06 20:25 | P.PN ---
Date of Service: 12/06/23 Vital Signs Temp Pulse Resp BP Pulse Ox 97.7 F 60 16 118/56 L 99 12/06/23 15:00 12/06/23 15:00 12/06/23 15:00 12/06/23 15:00 12/06/23 15:00 Medications Acetaminophen (Acetaminophen 500 Mg Tab) 500 mg PO Q6H PRN PRN Reason: Pain scale 2-4 (Mild) Apixaban (Apixaban 5 Mg Tablet) 5 mg PO BID [facility] Last Admin: 12/04/23 09:00 Dose: Not Given Bumetanide (Bumetanide 1 Mg/4 Ml Vial) 1 mg IV DAILY [facility] Last Admin: 12/06/23 12:00 Dose: 1 mg Donepezil HCl (Donepezil Hcl 5 Mg Tab) 10 mg PO BEDTIME [facility] Last Admin: 12/05/23 20:52 Dose: 10 mg Gabapentin (Gabapentin 300 Mg Cap) 300 mg PO TID [facility] Last Admin: 12/06/23 14:00 Dose: Not Given Hydralazine HCl (Hydralazine Hcl 25 Mg Tablet) 25 mg PO DAILY [facility] Last Admin: 12/06/23 09:00 Dose: Not Given L-Arginine/L-Glutamine/HMB (Humble Packet) 1 pkt PO BID [facility] Last Admin: 12/06/23 09:00 Dose: Not Given Metoprolol Tartrate (Metoprolol Tar 50 Mg Tab) 50 mg PO DAILY [facility] Last Admin: 12/06/23 11:59 Dose: 50 mg Morphine Sulfate (Morphine 2 Mg/Ml Syr) 2 mg IV Q4H PRN PRN Reason: Pain scale 8-10 (Severe) Last Admin: 12/06/23 19:24 Dose: 2 mg Ondansetron HCl (Ondansetron 4 Mg/2 Ml Vial) 4 mg IV Q8H PRN PRN Reason: NAUSEA / VOMITING Last Admin: 11/28/23 19:28 Dose: 4 mg Oxycodone/Acetaminophen (Oxycodone Hcl/Acetaminophen 5/325 Mg Tab) 2 tab PO Q8H PRN PRN Reason: Pain scale 5-7 (Moderate) Last Admin: 12/04/23 17:16 Dose: 2 tab Assessment/ Plan: Nephrology No dyspnea No chest pain Feeling better today No acute events overnight Vitals, medications, blood work and imaging reviewed in the chart General: In no apparent distress, Oriented x3, Cooperative HEENT: Atraumatic Neck: Supple Respiratory: Normal air movement Cardiovascular: Regular rate/rhythm, Edema Gastrointestinal: Soft and benign, Non-distended Musculoskeletal: No clubbing, No contractures, Other (Left AKA) Integumentary: No rashes, No cyanosis, Pressure ulcer Neurological: Normal speech Story Light Blood work reviewed in the chart. Imagings Data: EXAM DESCRIPTION: RAD - Chest Single View - 11/24/2023 5:08 pm CLINICAL HISTORY: edema Chest pain. COMPARISON: <Comparisons> FINDINGS: Portable technique limits examination quality. Moderate pulmonary edema. The heart is significantly enlarged. No displaced fractures.Multi lead pacer device. IMPRESSION: Moderate CHF. LEFT VENTRICULAR WALL MOTION: NORMAL DOPPLER/COLOR FLOW: SEE BELOW. COMMENTS: 1. NORMAL LEFT VENTRICULAR EJECTION FRACTION 60-65% WITH NORMAL WALL MOTION. 2. MILD CONCENTRIC LEFT VENTRIUCLAR HYPERTROPHY. 3. DIASTOLIC DYSFUNCTION. 4. LEFT ATRIAL ENLARGEMENT. 5. MILD MITRAL, TRICUSPID, AORTIC AND PULMONARY REGURGITATION. 6. PULMONARY HYPERTENSION WITH RIGHT VENTRICULAR SYSTOLIC PRESSURE >60 mmHg. Conclusions/Impression: Stage I JUAREZ may be CRS complicated by hypotension and diuresis CKD III -No NSAIDs HTN with CKD/ CHF -Continue Metoprolol Diastolic CHF, A/C Pulmonary HTN -Daily weight -Follow up with cardiology Hypoalbuminemia -Continue [place] -Albumin IV prn Anemia in chronic illness -Monitor H&H -Retacrit prn -PRBC prn Hospitalist note reviewed Case reviewed with hospitalist team
[2023-12-06] MEDS: ZOLPIDEM TARTRATE 10 MG TABLET PO SCH (21:45)
[2023-12-07 05:58] LABS: Absolute Eosinophils 0.3 K/uL (0-0.5); Absolute Lymphocytes (CBC) 1.8 K/uL (0.7-4.9); Absolute Monocytes 0.7 K/uL (0.1-1.3); Absolute Neutrophil 3.7 K/uL (1.8-8.0); Basophils % 0.4 % (0-1.3); Eosinophils % 4.6 % (0-4.4); Hematocrit 24.2 % (36.0-45.0); Hemoglobin 7.9 g/dL (12.0-15.0); Lymphocytes % 27.4 % (15.3-44.8); MCH 28.5 pg (27.0-35.0); MCHC 32.6 g/dL (32.0-36.0); MCV 87.3 fL (80-100); MPV 9.1 fL (7.6-11.3); Monocytes % 11.1 % (3.3-12.3); Neutrophils % 56.5 % (41.7-73.7); Nucleated Red Blood Cells % 0.2 % (0-0); Platelets 154 thou/uL (152-406); RBC Red Blood Cell Count 2.77 M/uL (3.86-4.86); Red Cell Distribution Width 14.7 % (12.1-15.2)
[2023-12-07 06:22] LABS: Anion Gap 8.3 mEq/L (5.0-15.0); Potassium 4.3 mEq/L (3.5-5.1)
[2023-12-07 11:32] LABS: ALT/SGPT 25 U/L (13-56); AST/SGOT 24 U/L (15-37); Albumin/Globulin Ratio 0.5 (1.1-1.8); Alkaline Phosphatase 101 U/L (45-117); Bilirubin Direct < 0.2 mg/dL (0-0.2); Bilirubin Indirect, Calculated 0.1 mg/dL (0.2-0.8); Bilirubin Total 0.3 mg/dL (0.2-1.0); Globulin 3.9 g/dL (2.3-3.5); Protein, Total 5.9 g/dL (6.4-8.2)
--- NOTE | 2023-12-07 11:49 | P.PN ---
Nephrology (S) No acute complaints, RHC results noted, no increase in dyspnea, wetahers remains in place but pt reports some leakage of urine around it (O) Vitals, medications, blood work and imaging reviewed in the chart General: Elderly, frail, NAD HEENT: Atraumatic. Dry oral mucosa, not on o2 Neck: Supple Respiratory: b/l air entry without rhonchi Cardiovascular: No current LE edema, Regular rate/rhythm mostly Gastrointestinal: Soft and benign, Non-distended Musculoskeletal: Muscle mass loss, Other (Left BKA), SCD Rt LE Integumentary: See description elsewhere of wounds Neurological: awake, alert, no tremors Blood work reviewed in the chart. Conclusions/Impression: Stage II JUAREZ earlier, hx of freq JUAREZ (pre-renal, or other episodes) in the past, underlying CKD Stage IIIb (prior renal imaging unremarkable on CT) -Multifactorial but with hemodynamic effects related to her pulm HTN, elevated Rt sided pressures, systemic BP, other -Cr level currently stable, cont to monitor Azotemia, mod to severe Cont to monitor/trend closely HTN, chronic -BP not elevated currently. Suspended Hydralazine Diastolic CHF, chronic. PAH, elevated Rt sided pressures -Cont Lasix and consideration of pulm vasodilators as recommended by Cardiology Jeramy Edwards MD, ARMEN
[2023-12-07] MEDS ORDERED: ZOLPIDEM TARTRATE 10 MG TABLET PO SCH (21:00)
[2023-12-08] MEDS: SILDENAFIL CITRATE 20 MG TABLET PO SCH (11:06)
--- NOTE | 2023-12-08 13:13 | P.PN ---
Subjective Date of Service: 12/08/23 Chief Complaint: Congestive heart failure Pt is resting comfortably in bed. She has positive fluid balance. The leg edema is slowly improving. Right heart cath showed pulmonary arterial htn. Pulm started Slidenafil 20mg po BID. Cardiology is following. No other complaints. Review of Systems General: Unremarkable Eyes: Unremarkable ENT: Unremarkable Respiratory: Unremarkable Cardiovascular: Edema Gastrointestinal: Unremarkable Genitourinary: Unremarkable Musculoskeletal: Unremarkable Integumentary: Unremarkable Neurological: Unremarkable Lymphatics: Unremarkable Physical Examination - Vital Signs Temperature: 97.4 F Blood Pressure: 120/51 Pulse: 75 Respirations: 16 Pulse Ox (%): 100 - Physical Exam General: Alert, In no apparent distress, Oriented x3 HEENT: Atraumatic, Normocephalic, PERRLA Neck: Supple, 2+ carotid pulse no bruit, JVD not distended Respiratory: Clear to auscultation bilaterally, Normal air movement Cardiovascular: Normal pulses, Regular rate/rhythm, Normal S1 S2, Edema Capillary refill: <2 Seconds Gastrointestinal: Normal bowel sounds, Soft and benign, Non-distended Musculoskeletal: No clubbing, No swelling, No contractures, Other (left AKA) Integumentary: No rashes, No breakdown, No significant lesion Neurological: Normal gait, Normal speech, Normal strength at 5/5 x4 extr, Normal tone, Sensation intact Lymphatics: No axilla or inguinal lymphadenopathy Assessment And Plan - Plan Acute diastolic [place] [address]. Last Echo in June, shows EF 60 - 65%. Will continue bumex 1mg iv BID. fluid balance is positive. Will f/u Echo. Pt does not respond to lasix. Cardiology did cardac cath which shows pulm arterial htn. Consulted Pulmonology. Will start slidenafil 20mg po BID. A. fib: Will continue telemetry, metoprolol and eliquis. Normocytic anemia: Hgb is 7.9<- 8.0 <- 8.2 <- 7.8. Will monitor H/H. Transfuse when Hgb< 8. Will give 1 unit of blood. JUAREZ on CKD stage 3: Cr is 1.47<- 1.52<- 1.55<- 1.62 <- 1.79 <- 1.92. Will avoid nephrotoxins and monitor renal function. Nephrology is following. DM II: Continue accuchek, SSI and ADA diet. Sacral wound: Will continue wound care. Lupus erythematosus: Will continue home med. Back pain: Continue prn percocet. 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 Gen surgery will remove it prior to dc. DVT ppx: SCD Dispo: pending hospital course. Will dc once cleared by Cardiology.
--- NOTE | 2023-12-08 15:27 | PN ---
Date of Progress Note: 12/08/2023 Subjective: The patient was seen and examined at bedside. Denies any complaints. Physical Examination: Vital Signs: Have been reviewed and are stable. General: She appears in no acute distress. HEENT: Shows atraumatic head. Lungs: Auscultation of lungs revealed diminished breath sounds bilaterally at the bases. Abdomen: Soft. The patient was noted to have a colostomy in place. Extremities: The right lower extremity with 3+ edema was noted. Laboratory Data: At this time are showing creatinine of 1.47, BUN of 66, sodium of 142, potassium of 4.3, and bicarb of 24. Current Medications: Have been reviewed. Impression: 1.Acute on chronic renal insufficiency secondary to cardiorenal syndrome, currently with overall sta ble renal function. The patient does seem to have significant volume overload. Remains on Bumex 1 m g daily. She could possibly be discharged on Bumex 2 mg b.i.d. oral at the time of discharge. 2.Severe pulmonary hypertension. Has been started on sildenafil by Cardiology. 3.Chronic sacral decubitus ulcer. Continue local wound care. 4.Severe congestive heart failure. Plan discussed as above. Plan: Overall, patient is clinically stable. Continue diuresis, can be switched over to oral antibi otics on discharge. Continue close followup with Cardiology. VV/ABBIE Voice ID: [id number] Report ID: [id number]
[2023-12-08] MEDS: NA CHLORIDE 0.9% 250 ML ONE (21:57)
--- NOTE | 2023-12-09 04:26 | P.PN ---
Date of Service: 12/07/23 Subjective Patient continuing to improve slowly. Hemoglobin has stabilized. Platelet counts are stable as well. Hopefully we can get patient stabilized to go back to [place] over the next 48 hours. Physical Examination - Vital Signs Review - Physical Exam General: Alert, In no apparent distress, Oriented x3 bedrest Respiratory: Diminished, normal air movement Cardiovascular: edematous, Normal pulses, Regular rate/rhythm, Normal S1 S2 Gastrointestinal: Normal bowel sounds, colostomy, PEG tube, Musculoskeletal: No clubbing, left AKA, Integumentary: No rashes, stage III sacral ulcer, Neurological: No focal deficits Assessment And Plan - Assessment/Plan Assessment/Plan Acute on chronic diastolic heart failure exacerbation: Elevated BNP Atrial fibrillation Chronic anticoagulation Continue with diuresing patient. Continue with medication for rate control as well as anticoagulation. Diverting Colostomy PEG tube PEG tube has been removed moved. Colostomy output is adequate Diabetes type 2 We will monitor blood sugar ACHS and continue sliding scale insulin for glucose control. Acute blood loss anemia: Continue monitoring H&H JUAREZ on CKD stage 3: Hyperkalemia improved Cr is 1.78. Will avoid nephrotoxins and monitor renal function. Nephrology consult appreciated Dr. Ochoa following Stage III sacral decubitus ulcers History of diabetic foot ulcer Will continue wound care. Pressure off loading Surgery consulted to eval Lupus erythematosus Resume appropriate home Chronic back pain: Continue prn percocet. Fall precaution DVT ppx: SCD Dispo: pending hospital course. Prior [place] nursing
[2023-12-09 06:40] LABS: Anion Gap 8.6 mEq/L (5.0-15.0); Potassium 4.6 mEq/L (3.5-5.1)
[2023-12-09 06:43] LABS: Absolute Eosinophils 0.4 K/uL (0-0.5); Absolute Lymphocytes (CBC) 1.8 K/uL (0.7-4.9); Absolute Monocytes 0.9 K/uL (0.1-1.3); Absolute Neutrophil 4.1 K/uL (1.8-8.0); Basophils % 0.4 % (0-1.3); Eosinophils % 5.2 % (0-4.4); Hematocrit 28.2 % (36.0-45.0); Hemoglobin 9.1 g/dL (12.0-15.0); Lymphocytes % 25.3 % (15.3-44.8); MCH 28.6 pg (27.0-35.0); MCHC 32.4 g/dL (32.0-36.0); MPV 9.4 fL (7.6-11.3); Monocytes % 12.2 % (3.3-12.3); Neutrophils % 56.9 % (41.7-73.7); Nucleated Red Blood Cells % 0.1 % (0-0); Platelets 184 thou/uL (152-406); Red Cell Distribution Width 14.8 % (12.1-15.2)
--- NOTE | 2023-12-09 11:56 | P.DS ---
Admission Date: 11/24/23 Discharge Date: 12/09/23 Disposition: TRANSFER TO CORRECTION Discharge Condition: GOOD Reason for Admission: Congestive heart failure Brief History of Present Illness: Patient is 73 years of age with a history of congestive heart failure lives at [facility] admitted with worsening dyspnea and lower extremity edema for the past 2 to 3 weeks relatives present at the bedside currently she respond s better to Bumex than Lasix they were giving her [facility] in the [facility] patient denies any smoking history has some decubitus ulcers patient to chronic renal insufficiency denies any fever or chills Hospital Course: Patient is 73 yo female from [facility] with past medical history of congestive heart failure who presented with dyspnea and lower extremity edema for 2 to 3 weeks. Pt and her relatives said that she was getting lasix at the [facility] but pt responded better to bumex. Pt was admitted for acute diastolic heart failure. BNP was [address]. Echo from 07/14 showed EF 60 - 65%. We continued Bumex 1mg iv BID and monitored I/O. Cardiology did cardiac cath that showed pulm arterial htn and Pulmonology started slidenafil 20mg po BID. We transfused 2 units of blood in order to keep Hemoglobin above 8. JUAREZ improved and we continued home med for other chronic medical problems. Pt was in NAD prior to discharge. Vital Signs/Physical Exam: Temp Pulse Resp BP Pulse Ox 97.6 F 62 16 125/58 L 100 12/09/23 08:00 12/09/23 08:14 12/09/23 08:15 12/09/23 08:14 12/09/23 08:15 Laboratory Data at Discharge: WBC 7.20 thou/uL (4.3-10.9) 12/09/23 06:09 Hgb 9.1 g/dL (12.0-15.0) L 12/09/23 06:09 Hct 28.2 % (36.0-45.0) L 12/09/23 06:09 Plt Count 184 thou/uL (152-406) 12/09/23 06:09 PT 20.4 SECONDS (9.4-12.5) H 11/30/23 21:15 INR 1.85 11/30/23 21:15 APTT 33.6 SECONDS (24.3-36.9) 11/30/23 21:15 Sodium 140 mEq/L (136-145) 12/09/23 06:09 Potassium 4.6 mEq/L (3.5-5.1) 12/09/23 06:09 BUN 69 mg/dL (7-18) H 12/09/23 06:09 Creatinine 1.54 mg/dL (0.55-1.02) H 12/09/23 06:09 Glucose 99 mg/dL (74-106) 12/09/23 06:09 Magnesium 1.7 mg/dL (1.6-2.4) 12/06/23 05:00 Total Bilirubin 0.3 mg/dL (0.2-1.0) 12/07/23 05:35 AST 24 U/L (15-37) 12/07/23 05:35 ALT 25 U/L (13-56) 12/07/23 05:35 Alkaline Phosphatase 101 U/L (45-117) 12/07/23 05:35 Home Medications: Apixaban [Eliquis] 2.5 mg PO BID 02/07/23 Gabapentin 300 mg PO TID 02/07/23 Hydralazine [Apresoline*] 25 mg PO DAILY 02/07/23 Hydroxychloroquine [Plaquenil*] 200 mg PO DAILY 02/07/23 Donepezil [Aricept*] 10 mg PO BEDTIME tab 06/28/23 Hydrocodone 10/APAP 325 [[place] 10325*] 1 tab PO Q6H PRN tab 06/28/23 Atorvastatin Calcium [Lipitor*] 10 mg PO BEDTIME 07/01/23 Docusate Sodium [Stool Softener] 100 mg PO BID 07/01/23 Omeprazole 20 mg PO DAILY 07/01/23 Acetaminophen [Tylenol Extra Strength] 2 tab PO Q8H PRN 11/25/23 Ascorbic Acid 1 tab PO DAILY 11/25/23 Bumetanide [Bumex*] 1 tab PO BID 11/25/23 Diphenhydramine [Benadryl*] 1 tab PO DAILY PRN 11/25/23 Duloxetine HCl 1 tab PO DAILY 11/25/23 Furosemide [Lasix] 1 tab PO DAILY 11/25/23 Ipratropium/Albuterol Sulfate [Iprat-Albut 0.5-3(2.5) mg/3 ml] 3 ml IH Q8H PRN 11/25/23 Metoprolol Succinate 1 tab PO DAILY 11/25/23 Oxycodone HCl/Acetaminophen [Percocet 10-325 mg Tablet] 1 tab PO Q8H 11/25/23 Potassium Chloride 1 tab PO DAILY 11/25/23 Zinc Sulfate [Zinc Sulfate*] 1 cap PO DAILY 11/25/23 Zolpidem Tartrate [Ambien*] 1 tab PO BEDTIME 11/25/23 Physician Discharge Instructions: resident at: [address] [address] P:[phone]/ F:[phone] Diet: AHA Activity: Ad oliver Followup: Janneth Quiroga MD [Primary Care Provider] - 1 Week
[2023-12-09 12:48] VITALS: BP 116/56; TEMP 97.4
== END 2023-12-09 14:20 | DRG 286 ==
LOC: ER 16:00 → 4TH 19:04
PROVIDERS: ADMIT Internal Medicine Sleep Medicine; ATTEND Hospitalist
PROC: 02HV33Z Insertion of Infusion Device into Superior Vena Cava, Percutaneous Approach (ICD-10-PCS; 2023-11-24)
PROC: 0T9B70Z Drainage of Bladder with Drainage Device, Via Natural or Artificial Opening (ICD-10-PCS; 2023-11-24)
PROC: 30233N1 Transfusion of Nonautologous Red Blood Cells into Peripheral Vein, Percutaneous Approach (ICD-10-PCS; 2023-11-29)
PROC: 30233K1 Transfusion of Nonautologous Frozen Plasma into Peripheral Vein, Percutaneous Approach (ICD-10-PCS; 2023-11-30)
PROC: 30233R1 Transfusion of Nonautologous Platelets into Peripheral Vein, Percutaneous Approach (ICD-10-PCS; 2023-12-01)
PROC: 4A023N6 Measurement of Cardiac Sampling and Pressure, Right Heart, Percutaneous Approach (ICD-10-PCS; principal; 2023-12-05)
PROC: B2111ZZ Fluoroscopy of Multiple Coronary Arteries using Low Osmolar Contrast (ICD-10-PCS; 2023-12-05)
DX: I13.0 Hypertensive heart and chronic kidney disease with heart failure and stage 1 through stage 4 chronic kidney disease, or unspecified chronic kidney disease (principal); I50.33 Acute on chronic diastolic (congestive) heart failure; L89.153 Pressure ulcer of sacral region, stage 3; N17.9 Acute kidney failure, unspecified; E87.20 Acidosis, unspecified; D61.818 Other pancytopenia; D62 Acute posthemorrhagic anemia; N18.32 Chronic kidney disease, stage 3b; E11.22 Type 2 diabetes mellitus with diabetic chronic kidney disease; E11.42 Type 2 diabetes mellitus with diabetic polyneuropathy; E11.51 Type 2 diabetes mellitus with diabetic peripheral angiopathy without gangrene; D63.1 Anemia in chronic kidney disease; D50.9 Iron deficiency anemia, unspecified; M54.9 Dorsalgia, unspecified; E78.5 Hyperlipidemia, unspecified; E87.5 Hyperkalemia; I27.21 Secondary pulmonary arterial hypertension; E88.09 Other disorders of plasma-protein metabolism, not elsewhere classified; M32.9 Systemic lupus erythematosus, unspecified; I48.91 Unspecified atrial fibrillation; G89.29 Other chronic pain; J44.9 Chronic obstructive pulmonary disease, unspecified; Z93.3 Colostomy status; Z88.8 Allergy status to other drugs, medicaments and biological substances; Z74.01 Bed confinement status; Z79.01 Long term (current) use of anticoagulants; Z86.73 Personal history of transient ischemic attack (TIA), and cerebral infarction without residual deficits; Z89.512 Acquired absence of left leg below knee; Z79.899 Other long term (current) drug therapy; Z90.710 Acquired absence of both cervix and uterus
CPT/HCPCS: 36415; 36430; 71045; 76937; 80048; 80053; 80076; 82040; 82607; 82947; 83540; 83735; 83880; 84484; 85014; 85018; 85025; 85044; 85610; 85730; 86850; 86900; 86901; 86920; 93005; 93306; 96374; 99152; 99285; C1893; J0461; J1940; J2001; J2250; J2270; J2405; J3010; J7040; J7050; P9016; P9035; P9059; P9073; P9100